=== PATIENT | male | born 1945 | race Caucasian/White ===

== ENCOUNTER 2019-10-12 11:46 | Outpatient (CLI) | payer BC, SELFPAY ==
--- NOTE | ~2019-10-12 | XR_ITS ---
EXAMINATION: XR lumbar spine 2-3V DATE: 10/12/2019 12:20 INDICATION: Low back pain TECHNIQUE: Anteroposterior and lateral views of the lumbar spine, and cone-down lateral view of the l umbosacral junction were obtained. COMPARISON: None. FINDINGS: There is no fracture, dislocation, or subluxation. The vertebral body heights and alignment are normal. Mild loss of intervertebral disc space height is present at L2-3 and L5-S1. Small degene rative osteophytes project from the anterior endplates of multiple vertebral bodies. There is severe facet osteoarthritis of the lower lumbar spine. The bowel gas pattern is normal. IMPRESSION: 1. Moderate lumbar spondylosis without acute findings. Reviewed, dictated and finalized at location A.
== END 2019-10-12 11:47 | disposition home or self-care (01) ==
PROVIDERS: PCP Family Medicine; Visit Provider Family Medicine
DX: M47.896 Other spondylosis, lumbar region (principal)
CPT/HCPCS: 72100

== ENCOUNTER → 2019-11-26 07:22 | Outpatient (CLI) | payer BC, SELFPAY ==
--- NOTE | ~2019-11-26 | MR_ITS ---
EXAMINATION: MR lumbar spine wo con DATE: 11/26/2019 08:26 INDICATION: Acute bilateral low back pain. TECHNIQUE: Magnetic resonance imaging (MRI) of the lumbar spine was performed without intravenous con trast. Sequences included sagittal T2-weighted FSE, sagittal T2-weighted FS FSE, sagittal T1-weighted FSE, and axial T2-weighted FSE. COMPARISON: Lumbar spine radiographs 10/12/2019 FINDINGS: There is 2 mm retrolisthesis of L2 on L3 and 2 mm anterolisthesis of L4 on L5. Vertebral sumi dy heights are normal. There is a hemangioma in T12 vertebral body. There is mildly decreased disc he ight at L2-L3. The distal spinal cord signal intensity is normal. The conus medullaris is at T12-L1. Partially visualized is a 6.4 cm cyst in left kidney. The following disc levels are specifically disc ussed: L1-L2: The disc does not extend beyond the endplate margin. There is mild bilateral facet joint osteo arthritis. There is no neural foraminal stenosis. There is no central canal stenosis. L2-L3: The disc is bulging. There is severe right and mild left facet joint osteoarthritis. There is moderate right and mild left neural foraminal stenosis. There is mild central canal stenosis. L3-L4: The disc is mildly bulging. There is severe bilateral facet joint osteoarthritis. There is mil d bilateral neural foraminal stenosis. There is mild central canal stenosis. L4-L5: The disc is bulging. There is severe bilateral facet joint osteoarthritis. There is mild bilat eral neural foraminal stenosis. There is mild central canal stenosis. L5-S1: The disc is bulging and has an annular fissure. There is mild right and severe left facet join t osteoarthritis. There is mild bilateral neural foraminal stenosis. There is mild central canal sten osis. IMPRESSION: 1. Moderate lumbar spondylosis. Reviewed, dictated and finalized at location A.
== END ==
PROVIDERS: PCP Family Medicine; Visit Provider Family Medicine
DX: M47.896 Other spondylosis, lumbar region (principal)
CPT/HCPCS: 72148

== ENCOUNTER 2020-07-26 14:30 | Outpatient (CLI) | payer BC, SELFPAY ==
[2020-07-26 14:59] LABS: Hematocrit 40.2 % (42.0-52.0); Hemoglobin 12.3 g/dL (14.0-18.0); Mean Corpuscular HGB Conc 30.6 g/dl (32-36); Mean Corpuscular Hemoglobin 27.3 pg (26-34); Mean Corpuscular Volume 89.3 fl (80-100); Mean Platelet Volume 11.7 fl (7.4-10.4); Platelet Count Result 246 k/mm3 (150-375); Red Cell Distribution Width 15.2 % (11.5-14.5); White Blood Count 6.6 K/mm3 (4.5-10.0)
[2020-07-26 15:00] LABS: Anion Gap 5 mmol/L (8-16); Blood Urea Nitrogen 23 mg/dL (9-20); Calcium 8.9 mg/dL (8.4-10.2); Carbon Dioxide 33 mmol/L (22-30); Chloride 101 mmol/L (98-107); Estimated Glomerular Filt Rate 54; Glucose 119 mg/dL (75-110); Potassium 3.7 mmol/L (3.4-5.0); Sodium 139 mmol/L (137-145)
== END 2020-07-26 14:31 | disposition home or self-care (01) ==
PROVIDERS: PCP Family Medicine; Visit Provider Family Medicine
DX: D64.9 Anemia, unspecified (principal); I10 Essential (primary) hypertension
CPT/HCPCS: 36415; 80048; 85027

== ENCOUNTER → 2021-06-21 14:57 | Outpatient (CLI) | payer BC, SELFPAY ==
--- NOTE | ~2021-06-21 | XR_ITS ---
XR knee RT 2V 06/21/2021 15:23 Indication: Left hip pain Procedure: 2 views left hip Comparison: No prior studies for comparison. Findings: There is mild-moderate osteoarthritis of the right knee. No fracture, subluxation or disloc ation. No significant joint effusion. Surgical clips are present in the popliteal space. There are va scular calcifications. Impression: 1: Mild-moderate osteoarthritis of the right knee. Reviewed, dictated and finalized at location B. OOR ILLUMINATING ENGINEER Impression: 1: Mild-moderate osteoarthritis of the right knee.
--- NOTE | ~2021-06-21 | XR_ITS ---
XR knee LT 2V 06/21/2021 15:23 Indication: Left knee pain Procedure: 2 views left knee Comparison: No prior studies for comparison. Findings: There is mild-moderate tricompartment osteoarthritis of the left knee. No fracture, subluxa tion or dislocation. No significant joint effusion. No foreign bodies. Impression: 1: Mild-moderate osteoarthritis of the left knee. Reviewed, dictated and finalized at location B. IFICATIONS WRITER Impression: 1: Mild-moderate osteoarthritis of the left knee.
--- NOTE | ~2021-06-21 | XR_ITS ---
XR hip LT min 2V 06/21/2021 15:23 Indication: Left hip pain Procedure: 2 views left hip Comparison: No prior studies for comparison. Findings: There is mild-moderate osteoarthritis of the left hip. No acute fracture or traumatic malal ignment. No significant soft tissue abnormality. No foreign bodies. Impression: 1: Mild-moderate osteoarthritis of the left hip. Reviewed, dictated and finalized at location B. N ENERGY POLICY ANALYST Impression: 1: Mild-moderate osteoarthritis of the left hip.
== END ==
PROVIDERS: PCP Family Medicine; Visit Provider Family Medicine
DX: M25.552 Pain in left hip (principal); M25.561 Pain in right knee; M25.562 Pain in left knee; M16.12 Unilateral primary osteoarthritis, left hip; M17.0 Bilateral primary osteoarthritis of knee
CPT/HCPCS: 73502; 73560

== ENCOUNTER 2022-02-12 10:05 | Outpatient (CLI) | payer BC, SELFPAY ==
[2022-02-12 10:34] LABS: Uric Acid 6.4 mg/dL (3.5-8.5)
== END 2022-02-12 10:06 | disposition home or self-care (01) ==
PROVIDERS: PCP Family Medicine; Visit Provider Family Medicine
DX: M79.671 Pain in right foot (principal); M79.672 Pain in left foot
CPT/HCPCS: 36415; 84550

== ENCOUNTER 2024-04-13 09:04 | Outpatient (CLI) | payer BC, SELFPAY ==
--- OUTSIDE RECORDS SUMMARY | 2024-04-20 00:11 | XMS_ITS | Encounter Summary ---
Author Organization [facility] Address [address] [place] [address] Care Team Providers Care Clinical Microbiologist Name Role Phone Martin López MD Primary Care Provider Encounter Details Date Type Department Care Team (Late st Contact Info) Description 08/01/2021 Lab Requisition [facility] [address] [place] [address] Artie Miller MD [address] [address] Social History Tobacco Use Types Packs/Day Years Used Date Smoking Tobacco: Never Assessed Sex and Gender Information Value Date Recorded Sex Assigned at Not on file Gender Identity Not on file Sexual Orientation Not on file documented as of this encounter Plan of Treatment Not on file documented as of this encounter Procedures Procedure Name Priority Date/Time Associated Diagnosis Comments DERMATOPATHOLOGY Routine 07/31/2021 12:0 0 AM CDT documented in this encounter Results * DERMATOPATHOLOGY (07/31/2021 12:00 AM CDT) Case Report Dermatopathology Report ? Case: [id number] ? Authorizing Provider: ??Artie Miller MD ?Collected: ? 07/31/2021 12:00 AM ? Ordering Location: ? [facility] ?Received: ?08/01/2021 04:01 PM ? Pathologist: ? Prabha Toney MD ? Specimen: ?Skin, left shoulder ? 2 1:12 PM CDT DERMATOPATHOLOGY LABORATORY Final Diagnosis Specimen A. SKIN, left shoulder: SEBORRHEIC KERATOSIS, IRRITATED AND INFLAMED (L82.0) 2 1:12 PM T DERMATOPATHOLOGY LABORATORY Clinical History [facility]. Path # [id number]. 1:12 PM CDT DERMATOPATHOLOGY LABORATORY Gross Description Specimen A: Received is one formalin filled container labeled with the patient's name and designated left shoulder. The specimen consists of a shave biopsy measuring [id number]. Jar 0. 1:12 PM T DERMATOPATHOLOGY LABORATORY Microscopic Description Specimen A. SKIN, left shoulder: Sections show acanthosis, papillomatosis, hyperkeratosis, and squamous eddies. There is a lymphohistiocytic infiltrate within the papillary dermis. 2 1:12 PM T DERMATOPATHOLOGY LABORATORY Disclaimer An external and internal positive and negative controls are appropriate for the histochemical, immunohistochemical and immunofluorescence stain(s) in this case (if any), except where stated explicitly. The performance characteristics of the stain(s) cited in this report were developed and its performance characteristic determined by the Dermatopathology Laboratory at [facility], directed by Dr. Liana Hopson. These tests need not be, and therefore are not, approved by the [place] Food and Drug Administration. The tests are used for clinical purposes. Billing Codes Specimen Charges Stain Charges 50544 1 2 1:12 PM CDT DERMATOPATHOLOGY LABORATORY Embedded Images 2 1:12 PM CDT DERMATOPATHOLOGY LABORATORY Pathology/Cytolog y TISSUE SPECIMEN FROM SKIN / Unknown 07/31/2021 08/01/2021 4:01 PM CDT Artie Miller MD LAB - PATHOLOGY/CYTO LOGY ORDERABLES DERMATOPATHOLOGY LABORATORY [facility] - Department of Dermatology [facility] [address] [place] [address], [address] [phone] documented in this encounter Visit Diagnoses Not on filedocumented in this encounter Care Teams Clinical Microbiologist Relationship Specialty Start Date End Date Martin López MD [address] [place] [address] PCP - General 12/07/20 documented as of this encounter
--- OUTSIDE RECORDS SUMMARY | 2024-04-20 00:11 | XMS_ITS ---
Author Organization [facility] Address [address] [address] Care Team Providers Care Buckle Sorter Name Role Phone Dr Martin López Primary Care Provider Unavaila brianna Cardenas Jr, MD, Inderjit Unavailable Encounters Encounter Location Date Provider Diagnosis [facility] [address] [address] 03/24/2024 Inderjit Cardenas Jr, MD PLAN OF TREATMENT No Information
--- OUTSIDE RECORDS SUMMARY | 2024-04-20 00:11 | XMS_ITS | Patient Health Record ---
Author Organization [facility] Address [address] [address] Care Team Providers Care Window Shade Estimator Name Role Phone Dr Martin López Primary Care Provider Unavaila brianna Cardenas Jr, MD, Inderjit Unavailable [phone] Antonieta ALCARAZ, Urbano Unavailable [phone] ALLERGIES No Known Allergies REASON FOR REFERRAL Reason Initial visit - eval and treat Diagnosis 1 Back pain (M54.9) Referral Organization [facility] Referring Provider First Name Inderjit Referring Provider Last Name Ronald Alexander MD Referring Provider Speciality Orthopedic Surgery Referral Priority Routine MEDICATIONS Medication SIG (Take, Route, Fr equency, Duration) Notes Start Date End Date Status Hyalgan 20 MG/2ML 2 mL Intra-articular for 30 day(s) 04/09/2022 Active Metoprolol Active Benazepril HCl Unkno wn amLODIPine Besylate Unknown Lisinopril Active Montelukast Sodium A ctive Atorvastatin Calcium Active Singulair Unknown Azelastine HCl Unkno wn Aspir-81 Active Travatan Z Active IMMUNIZATIONS Vaccine Route Administration Date Status Comme nts Influenza Unknown 11/16/2021 Administered Influenza Unknown 06/27/2017 Refused pneumoccocal Unknown 06/27/2017 Refused pneumoccocal Unknown 11/16/2021 Refused SOCIAL HISTORY Tobacco Use: Social History Observation Description Date Details (start date - stop date) Never Smoker NA - NA Sex Assigned At : Social History Observation Description Sex Assigned At Unknown Tobacco Use: Question Answer Notes Patient is a: nonsmoker Alcohol screening: Question Answer Notes Did you have a drink contain ing alcohol in the past year? Yes How often did you have a dri nk containing alcohol in the past year? Monthly or less (1 point) How many drinks did you have on a typical day when you were drinking in the past year? 1 or 2 (0 points) How often did you have six o r more drinks on one occasion in the past year? Less than monthly (1 point) Points 2 Interpretation Negative PROBLEMS Problem Type ICD Code Onset Dates Problem Status W/U Status Risk SNOMED Code Notes Problem Bilateral primary osteoarthritis of knee (M17.0) 04/12/20 16 Active confirmed Osteoarthritis o f knee (867477086) Problem Pain in left hip (M25.552) 12/24/19 24 Active confirmed [id number] Problem Other specified enthesopathies of left lower limb, excluding foot (M76.892) Active confirmed 120406764 Problem Strain of muscle, fascia and tendon of left hip, initial encounter (S76.012A) 11/06/19 24 Active confirmed 009313651 Problem Knee pain, right (M25.561) Active confirmed Problem Trochanteric bursitis of left hip (M70.62) 11/17/19 22 Active confirmed [id number] VITAL SIGNS Heart Rate 75 /min 12/24/2023 Blood pressure diastolic 85 mm Hg 12/24/2023 Height 69.5 in 12/24/2023 Blood pressure systolic 145 mm Hg 12/24/2023 Weight 180 lbs 12/24/2023 BMI 26.2 kg/m2 12/24/2023 Encounters Encounter Location Date Provider Diagnosis [facility] [address] [address] 03/24/2024 Inderjit Cardenas Jr, MD [facility] [address] [facility] [place] [address] 05/14/2023 Inderjit Cardenas Jr, MD Bilateral primary osteoarthritis of knee M17.0 [facility] [address] [facility] [place] [address] 09/03/2023 Inderjit Cardenas Jr, MD Bilateral primary osteoarthritis of knee M17.0 [facility] [address] [address] [place] [address] 11/13/2023 Urbano Fung MD Strain of muscle, fascia and tendon of left hip, initial encounter S76.012A [facility] [address] [place] [address] 12/24/2023 Inderjit Cardenas Jr, MD Bilateral primary osteoarthritis of knee M17.0 ; Pain in left hip M25.552 [address] Lum[address] pain M54.50 [facility] [address] [place] [address] 04/16/2024 Inderjit Cardenas Jr, MD Bilateral primary osteoarthritis of knee M17.0 [facility] [address] [place] [address] 12/24/2023 Inderjit Cardenas Jr, MD [facility] [address] [place] [address] 12/31/2023 Inderjit Cardenas Jr, MD [facility] [address] [place] [address] 12/03/2023 Inderjit Cardenas Jr, MD [facility] [address] [place] [address] 01/14/2024 Inderjit Cardenas Jr, MD [facility] [address] [place] [address] 04/17/2024 Inderjit Cardenas Jr, MD ASSESSMENTS Encounter Date Diagnosis Assessment Notes Treatment Notes Treatment Clinical Notes 05/14/2023 Bilateral primary osteoarthritis of knee (ICD-10 - M17.0) 09/03/2023 Bilateral primary osteoarthritis of knee (ICD-10 - M17.0) 11/13/2023 Strain of muscle, fascia and tendon of left hip, initial encounter (ICD-10 - S76.012A) 12/24/2023 Bilateral primary osteoarthritis of knee (ICD-10 - M17.0) 04/16/2024 Bilateral primary osteoarthritis of knee (ICD-10 - M17.0) 12/24/2023 Pain in left hip (ICD-10 - M25.552) 12/24/2023 Lumbar pain (ICD-10 - M54.50) PLAN OF TREATMENT Pending Test Test Name Order Date MRI : Hip, left 12/24/2023 MRI : Lumbar without contrast 12/24/2023 Insurance Providers Payer Name Payer Address Payer Phone Subscriber Number Group Number Insured Name Patient Relationship to Insured Coverage Start Date Coverage End Date [employer] 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
--- OUTSIDE RECORDS SUMMARY | 2024-04-20 00:11 | XMS_ITS | Referral Summary ---
Author Organization [facility] Address [address] [place] [address] Care Team Providers Care Director Of Staff Development Name Role Phone Martin López MD Primary Care Provider [phone] Source Comments [facility],non-owned Affiliates and Associated Physician Practices is amultiple site organization consisting of ambulatory clinics and hospital sitesin [place], [place], [place] and [place]. This disclosure is being madepursuant to the Care Everywhere program and may not contain all information available regarding this patient. Last updated 18.[facility] [employer] Social History Tobacco Use Types Packs/Day Years Used Date Smoking Tobacco: Never Assessed Sex and Gender Information Value Date Recorded Sex Assigned at Not on file Gender Identity Not on file Sexual Orientation Not on file Plan of Treatment Not on file Care Teams Director Of Staff Development Relationship Specialty Start Date End Date Martin López MD [address] [place] [address] PCP - General 12/07/20
--- OUTSIDE RECORDS SUMMARY | 2024-04-20 00:11 | XMS_ITS | Patient Health Summary ---
Author Organization [facility] Address [address] [place] [address] Care Team Providers Care Supervisor Wood Room Name Role Phone Martin López MD Primary Care Provider [phone] Note from [facility],non-owned Affiliates and Associated Physician Practices is amultiple site organization consisting of ambulatory clinics and hospital sitesin [place], [place], [place] and [place]. This disclosure is being madepursuant to the Care Everywhere program and may not contain all information available regarding this patient. Last updated 18.[facility] Social History Tobacco Use Types Packs/Day Years Used Date Smoking Tobacco: Never Assessed Sex and Gender Information Value Date Recorded Sex Assigned at Not on file Gender Identity Not on file Sexual Orientation Not on file Procedures * DERMATOPATHOLOGY(Performed 07/31/2021) * DERMATOPATHOLOGY(Performed 12/06/2020) Results * DERMATOPATHOLOGY (07/31/2021 12:00 AM CDT) Only the most recent of2 resultswithin the time period is included. Case Report Dermatopathology Report ? Case: [id number] ? Authorizing Provider: ??Artie Miller MD ?Collected: ? 07/31/2021 12:00 AM ? Ordering Location: ? [facility] ?Received: ?08/01/2021 04:01 PM ? Pathologist: ? Prabha Toney MD ? Specimen: ?Skin, left shoulder ? 1:12 PM CDT DERMATOPATHOLOGY LABORATORY Final Diagnosis Specimen A. SKIN, left shoulder: SEBORRHEIC KERATOSIS, IRRITATED AND INFLAMED (L82.0) 1:12 PM T DERMATOPATHOLOGY LABORATORY Clinical History [facility]. Path # [id number]. 1:12 PM CDT DERMATOPATHOLOGY LABORATORY Gross Description Specimen A: Received is one formalin filled container labeled with the patient's name and designated left shoulder. The specimen consists of a shave biopsy measuring [id number]. Jar 0. 1:12 PM CDT DERMATOPATHOLOGY LABORATORY Microscopic Description Specimen A. SKIN, left shoulder: Sections show acanthosis, papillomatosis, hyperkeratosis, and squamous eddies. There is a lymphohistiocytic infiltrate within the papillary dermis. 1:12 PM CDT DERMATOPATHOLOGY LABORATORY Disclaimer An external and internal positive and negative controls are appropriate for the histochemical, immunohistochemical and immunofluorescence stain(s) in this case (if any), except where stated explicitly. The performance characteristics of the stain(s) cited in this report were developed and its performance characteristic determined by the Dermatopathology Laboratory at [facility], directed by Dr. Liana Hopson. These tests need not be, and therefore are not, approved by the [place] Food and Drug Administration. The tests are used for clinical purposes. Billing Codes Specimen Charges Stain Charges 94268 1 2 1:12 PM CDT DERMATOPATHOLOGY LABORATORY Embedded Images 04/07/202 2 1:12 PM CDT DERMATOPATHOLOGY LABORATORY Pathology/Cytolog y TISSUE SPECIMEN FROM SKIN / Unknown 07/31/2021 08/01/2021 4:01 PM CDT Artie Miller MD LAB - PATHOLOGY/CYTO LOGY ORDERABLES DERMATOPATHOLOGY LABORATORY [facility] - Department of Dermatology [facility] Specialized Medicine [address] [place] [address], [address] [phone] Care Teams Supervisor Wood Room Relationship Specialty Start Date End Date Martin López MD [address] [place] [address] PCP - General 12/07/20
--- OUTSIDE RECORDS SUMMARY | 2024-04-20 00:11 | XMS_ITS | Clinical Summary ---
Author Organization [facility] Address [address] [place] [address] Care Team Providers Care Apparel Pattern Maker Name Role Phone Martin López MD Primary Care Provider [phone] Source Comments [facility],non-owned Affiliates and Associated Physician Practices is amultiple site organization consisting of ambulatory clinics and hospital sitesin [place], [place], [place] and [place]. This disclosure is being madepursuant to the Care Everywhere program and may not contain all information available regarding this patient. Last updated 18.[facility] Social History Tobacco Use Types Packs/Day Years Used Date Smoking Tobacco: Never Assessed Sex and Gender Information Value Date Recorded Sex Assigned at Not on file Gender Identity Not on file Sexual Orientation Not on file Plan of Treatment Health Maintenance Due Date Last Done Comments HEPATITIS C SCREENING 12/04/1963 DTAP/TDAP/TD VACCINES (1 - Tdap) 1964 ZOSTER VACCINE (1 of 2) 12/09/1995 PNEUMOCOCCAL VACCINE 65+ (1 of 1 - PCV) 2010 Respiratory Syncytial Virus (RSV) Vaccine Pt: or over 60 yrs (1 - 1-dose 75+ series) 2020 DEPRESSION SCREENING 04/29/2023 COVID-19 VACCINE ( - 2023-2 5 season) 2023 INFLUENZA VACCINE (#1) 2023 HEPATITIS B VACCINE Aged Out No longe r eligible based on patient's age to complete this topic HIB VACCINE Aged Out No longer eligi ble based on patient's age to complete this topic HPV VACCINE Aged Out No longer eligi ble based on patient's age to complete this topic MENINGOCOCCAL VACCINE Aged Out No jasmin yessica eligible based on patient's age to complete this topic Care Teams Apparel Pattern Maker Relationship Specialty Start Date End Date Martin López MD [address] [place], [place] [id number] PCP - General 12/07/20
--- OUTSIDE RECORDS SUMMARY | 2024-04-20 00:11 | XMS_ITS ---
Author Organization [facility] Address [address], [place] [address] Care Team Providers Care Tapper Helper Name Role Phone Dr Martin López Primary Care Provider Unavaila brianna Cardenas Jr, MD, Inderjit Unavailable Encounters Encounter Location Date Provider Diagnosis [facility] [address], [place] [address] 12/31/2023 Inderjit Cardenas Jr, MD PLAN OF TREATMENT No Information
--- OUTSIDE RECORDS SUMMARY | 2024-04-20 00:11 | XMS_ITS ---
Author Organization [facility] Address [address] [place] [address] Care Team Providers Care Strap Maker Name Role Phone Dr Martin López Primary Care Provider Unavaila brianna Cardenas Jr, MD, Inderjit Unavailable REASON FOR VISIT MRI Encounters Encounter Location Date Provider Diagnosis [facility] [address] [place] [address] 01/14/2024 Inderjit Cardenas Jr, MD PLAN OF TREATMENT No Information
--- OUTSIDE RECORDS SUMMARY | 2024-04-20 00:11 | XMS_ITS | Encounter Summary ---
Author Organization [facility] Address [address] [place] [address] Care Team Providers Care Studio Technician Name Role Phone Martin López MD Primary Care Provider [phone] Encounter Details Date Type Department Care Team (Late st Contact Info) Description 2020 Lab Requisition [facility] [address] [place] [address] Artie Miller MD [address] [place] [address] Social History [...] Priority Date/Time Associated Diagnosis Comments DERMATOPATHOLOGY Routine 12/06/2020 3:33 AM CDT documented in this encounter Results * DERMATOPATHOLOGY (12/06/2020 3:33 AM CDT) Case Report Dermatopathology Report ? Case: [id number] ? Authorizing Provider: ??Artie Miller MD ?Collected: ? 12/06/2020 03:33 AM ? Ordering Location: ? [facility] ?Received: ?2020 06:36 AM ? Pathologist: ? Prabha Toney MD ? Specimen: ?Skin, left neck ? 1 1:14 PM CDT DERMATOPATHOLOGY LABORATORY Final Diagnosis Specimen A. SKIN, left neck: BASAL CELL CARCINOMA, NODULAR TYPE (C44.41) 1:14 PM T DERMATOPATHOLOGY LABORATORY Clinical History [facility]. Path#[id number] 1:14 PM CDT DERMATOPATHOLOGY LABORATORY Gross Description Specimen A: Received is one formalin filled container labeled with the patient's name and designated left neck. The specimen consists of a shave biopsy measuring 6x4x1 mm. Jar 0. 1:14 PM T DERMATOPATHOLOGY LABORATORY Microscopic Description Specimen A. SKIN, left neck: Within the dermis there are aggregates of basaloid cells with a high nuclear to cytoplasmic ratio and peripheral palisading. 1:14 PM T DERMATOPATHOLOGY LABORATORY Disclaimer An external and internal positive and negative controls are appropriate for the histochemical, immunohistochemical and immunofluorescence stain(s) in this case (if any), except where stated explicitly. The performance characteristics of the stain(s) cited in this report were developed and its performance characteristic determined by the Dermatopathology Laboratory at [facility], directed by Dr. Liana Hopson. These tests need not be, and therefore are not, approved by the [place] Food and Drug Administration. The tests are used for clinical purposes. Billing Codes Specimen Charges Stain Charges 98320 1 1 1:14 PM CDT DERMATOPATHOLOGY LABORATORY Embedded Images 1:14 PM CDT DERMATOPATHOLOGY LABORATORY Pathology/Cytolo gy TISSUE SPECIMEN FROM SKIN / Unknown 12/06/2020 3:33 AM CDT 2020 6:36 AM CDT Artie Miller MD LAB - PATHOLOGY/CYTO LOGY ORDERABLES DERMATOPATHOLOGY LABORATORY [facility] - Department of Dermatology [facility] Medicine [address] [place] [address], [address] [phone] documented in this encounter Visit Diagnoses Not on filedocumented in this encounter Care Teams Studio Technician Relationship Specialty Start Date End Date Martin López MD [address] [place] [address] PCP - General 12/07/20 documented as of this encounter
--- OUTSIDE RECORDS SUMMARY | 2024-04-20 00:12 | XMS_ITS | Encounter Summary ---
Author Organization [facility] Address [address] [place] [address] Phone Care Team Providers Care Co[employer]dam Construction Supervisor Name Role Phone Martin López MD Primary Care Provider Khalif Ca MD Unavailable Francia Worley MD Unavailable Tera Torre MD Unavailable [phone] Reason for Referral * Cardiology (Routine) - Closed Specialty Diagnoses / Procedures Referred By Contac t Referred To Contact Diagnoses Paroxysmal atrial fibrillation (CMS/HCC) (HCC) Procedures ECG 12 lead Jarett Toney MD PhD Phone: tel: fax: [facility] (All Locations) Referral ID Status Reason Start Date Expiration Date Visits Re quested Visits Authorized [id number] Closed 02/15/2023 03/16/2024 1 1 Reason for Visit * Consultation (Routine) - Closed Specialty Diagnoses / Procedures Referred By Contac t Referred To Contact Cardiology Diagnoses Paroxysmal atrial fibrillation (CMS/HCC) (HCC) Tera Torre MD [address] [place] [address] Phone: tel: fax: [facility] (All Locations) Referral ID Status Reason Start Date Expiration Date V isits Requested Visits Authorized [id number] Closed Specialty Services Required 01/07/2023 02/06/2024 1 1 Encounter Details Date Type Department Care Team (Late st Contact Info) Description 02/15/2023 2:30 PM CDT Office Visit [facility] Cardiology [address] [place] [address] Jarett Toney MD PhD [address] [address] [place] [address] Paroxysmal atrial fibrillation (CMS/HCC) (HCC) Social History Tobacco Use Types Packs/Day Years Used Date Smoking Tobacco: Former Cigarettes Q uit: 1970 Smokeless Tobacco: Never Tobacco Cessation:Counseling Given: Not Answered Alcohol Use Standard Drinks/Week Comments Yes 0 (1 standard drink = 0.6 oz pur e alcohol) rare AUDIT-C Answer Date Recorded Q1: How often do you have a drink containing alc ohol? Never 03/05/2022 Q2: How many drinks containi ng alcohol do you have on a typical day when you are drinking? 1 or 2 03/05/2022 Q3: How often do you have six or more drinks on one occasion? Never 03/05/2022 Personal Safety Answer Date Recorded Have you ever been in or are you currently in a harmful physical or emotional relationship or is someone making you feel afraid or unsafe? 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 Gender Identity Male 07/25/2023 3:40 PM CDT Sexual Orientation Straight 10/28/2019 9: 50 AM CDT documented as of this encounter Last Filed Vital Signs Vital Sign Reading Time Taken Comments Blood Pressure 181/97 02/15/2023 2:13 PM CDT Pulse 59 02/15/2023 2:13 PM CDT Temperature - - Respiratory Rate - - Oxygen Saturation 97% 02/15/2023 2:13 PM CDT Inhaled Oxygen Concentration - - Weight 83.9 kg (185 lb) 02/15/2023 2:13 PM CDT Height 175.3 cm (5' 9 ) 02/15/2023 2:13 PM CDT Body Mass Index 27.32 02/15/2023 2:13 PM CDT documented in this encounter Patient Instructions * Patient Instructions* Jarett Toney MD PhD - 02/15/2023 2:30 PM CDT In documented in this encounter Progress Notes * Jarett Toney MD PhD - 02/15/2023 2:30 PM CDT Cardiac Electrophysiology Initial Consultation At the kind request of Tera Torre MD I had the pleasure of seeing Nathan Wagner (1945) at the [facility] Cardiac Electrophysiology Service today, 02/15/2023, in consultation for atrial fibrillation. My review of external records indicates that Mr. Wagner is a 77 y.o. man with a history of hypertension, coronary disease and coronary bypass surgery, severe and bioAVR, and atrial fibrillation. He was admitted in October of 2022, after feeling unwell at a constitution party. Holter monitor revealed paroxysmal atrial fibrillation and he underwent sotalol loading. His GZH9FR4-BxZE score is 4. He is on apixaban. Echo on 22 November 2022 revealed an LV ejection fraction of 0.60., normal function of the bioAVR, normal left atrium (LA volume index, 34.9; normal 16-34). The patient tells me that he underwent CABG/bioAVR by Dr. Worley in May 2020. There was some postoperative AF, but it resolved. He reports some slow heart rates in March of 2022. On 20 Sep 2022he fetl rapid heart rates, prompting him to go the ER. He was treated with metoprolol. Some recurrences led to amdission for sotalol. He has had infrequent episodes since then, with 3 in January. The longest episode has been 1 hour. Past Medical History He has a past medical history of Basal cell carcinoma, Cancer (CMS/HCC) ([facility]), Coronary artery disease, Diverticulosis, GERD (gastroesophageal reflux disease), GI bleed (2014), Glaucoma, H pylori ulcer, Heart murmur, Hemorrhoid, History of blood transfusion (2014), HTN (hypertension), Hyperlipidemia, Severe aortic stenosis, and Sinus disease. He has no past medical history of Acute respiratory failure requiring reintubation (CMS/HCC) (HCC),Arthritis, Asthma, Awareness under anesthesia, CHF (congestive heart failure) ([facility]/HCC) ([facility]), COPD(chronic obstructive pulmonary disease) ([facility]), Delayed emergence from general anesthesia, Diabetes mellitus ([facility]), Hard to intubate, Hematoma, Malignant hyperthermia, Motion sickness, Pneumothorax, PONV (postoperative nausea and vomiting), Postoperative delirium, Pseudocholinesterase deficiency, Sleep apnea, Spinal headache, Stroke ([facility]), or Thyroid disease. He has a past surgical history that includes Cardiac catheterization (2019); Colonoscopy (2019); Upper gastrointestinal endoscopy (2019); Mohs Surgery (2001); Heart Surgery (2019); Abdominal surgery;Cardiac surgery; Mitral valve replacement; and Vascular surgery. Medications Outpatient Medications Prior to Visit Medication Sig Dispense Refill acetaminophen (TYLENOL) 325 mg tablet Take 2 tablets (650 mg total) by mouth every 4 (four) hours as needed for pain 30 tablet amLODIPine (NORVASC) 5 mg tablet Take 1 tablet (5 mg total) by mouth daily 30 tablet 0 apixaban (Eliquis) 5 mg tablet Take 1 tablet (5 mg total) by mouth 2 (two) times a day 180 tablet 3 atorvastatin (LIPITOR) 80 mg tablet Take 1 tablet (80 mg total) by mouth daily (Patient taking differently: Take 1 tablet (80 mg total) by mouth every morning) 30 tablet 1 lisinopriL (PRINIVIL,ZESTRIL) 40 mg tablet Take 1 tablet (40 mg total) by mouth daily 90 tablet 3 montelukast (SINGULAIR) 10 mg tablet Take 1 tablet (10 mg total) by mouth nightly sotaloL (BETAPACE) 80 mg tablet Take 1 tablet (80 mg total) by mouth 2 (two) times a day 60 tablet 11 travoprost (TRAVATAN Z) 0.004 % drops Administer 1 drop into both eyes nightly aspirin 81 mg enteric coated tablet Take 1 tablet (81 mg total) by mouth every morning (Patient nottaking: Reported on 02/15/2023) No facility-administered medications prior to visit. Allergies No Known Allergies Social History He reports that he quit smoking about 53 years ago. His smoking use included cigarettes. He has never used smokeless tobacco. He reports that he does not currently use drugs. Patient denies consumingalcoholic drinks. Family History Mr. Wagner's family history includes Arrhythmia in his brother; Cancer in his mother; Heart attack in his maternal grandfather; Heart disease in his mother; Hypertension in his brother and mother. Review of Systems A full 10-point review of systems was negative except for as above. Physical Examination On physical examination, he is in no acute distress. BP (!) 181/97 (BP Location: Right arm, Patient Position: Sitting) Pulse 59 Ht 175.3 cm (5' 9 ) Wt 83.9 kg (185 lb) SpO2 97% BMI 27.32 kg/m?? Head and neck were within normal limits. There was no scleral icterus. Extraocular movements were intact. The oral mucosa was moist. The neck was supple with no thyromegaly or mass. There was no cervical lymphadenopathy. Chest was clear to auscultation bilaterally. On cardiovascular examination, there was no elevation of the the jugular venous pressure appreciated. There was a regular rhythm with no murmur, rub, or gallop. The abdomen was soft, not tender. There was no organomegaly or mass. Bowel sounds were present. The extremities were without clubbing, or cyanosis. The is no edema. The skin was warm and dry without rash. The affect was normal. Diagnostic Data ECG: ECG today revealed: Sinus Bradycardia -Right bundle branch block and right axis -possible right ventricular hypertrophy -consider pulmonary disease. Labs: Chemistry Lab Results Component Value Date SODIUM 140 11/22/2022 POTASSIUM 4.5 11/22/2022 CHLORIDE 104 11/22/2022 CO2 26 11/22/2022 ANIONGAP 10 11/22/2022 BUNSER 31 (H) 11/22/2022 CREATININE 1.25 11/22/2022 GLUCOSE 137 11/22/2022 CALCIUM 8.9 11/22/2022 BILITOT 0.8 11/19/2022 ALBUMIN 4.2 11/19/2022 GFRNAA 60 (L) 11/22/2022 ALKPHOS 68 11/19/2022 AST 25 11/19/2022 ALT 24 11/19/2022 PHOS 2.8 11/21/2022 MAGNESIUM 2.3 11/21/2022 estimated creatinine clearance is 49.5 mL/min (by C-G 65 yr and older- minimum SCr 0.8 based on SCrof 1.25 mg/dL). Lab Results Component Value Date TSH 1.95 11/19/2022 Lab Results Component Value Date WBC 7.4 11/21/2022 HGB 15.0 11/21/2022 HCT 42.2 11/21/2022 MCV 86.1 11/21/2022 LABPLAT 188 11/21/2022 Impression We had an extended discussion concerning the mechanism, implications, and treatment avenues for atrial fibrillation, specifically: anticoagulation, rate control, and rhythm control. We discussed thatanticoagulation is a preventive therapy; rate and rhythm control therapies are driven by symptoms. We discussed the importance of anticoagulation in the setting of his QEN7OZ2- VaSC score, weighed against the bleeding risk associated with anticoagulation. We further discussed that we have no proof that treatments other than anticoagulation reduces the risk of thromboembolism. I've recommended that he continue his current anticoagulation regimen, apixiban. We discussed that with good rate control, many patients can feel normal, or nearly so, even when inatrial fibrillation. We discussed that rate control typically consists of medical therapy to slow the frequency of AV node conduction and control the ventricular rate. In rare cases, the rate concernis bradycardia, and pacemaker must be considered. In cases where rapid ventricular response and symptoms are refractory to medical rate control AV node ablation, which requires pacemaker implantationis a possibility. I've recommended that he continue his current rate control regimen, metoprolol. We discussed his probably bifascicular block and that there is some risk of conduction disease progression and the need for a pacemaker someday. This should inform rate and rhythm control medicine decisions. We discussed that rhythm control, in both the forms of antiarrhythmic agents and ablation therapy, is an imperfect pursuit. None of the several available antiarrhythmic agents eliminates atrial fibrillation, though it may be successfully suppressed. These potent medicines have known side effects and toxicities, including proarrhythmia. Careful monitoring is required. They are frequently initiatedin the hospital, with close monitoring of telemetry and 12- lead ECGs. We also discussed catheter ablation therapy, the cornerstone of which is pulmonary vein isolation, either using cryoenergy or radiofrequency ablation. We discussed a 60-80% success rate and we also discussed the difficulty of defi chika success, since symptoms drive therapy. Many patients experience significant symptoms relief, even if atrial fibrillation is not eliminated. Sometimes ablation therapy combined with an antiarrhythmic drug yields a benefit. We also discussed an approximately 3% risk of major adverse events, including bleeding, thromboembolism, cardiac or vascular perforation, and atrioesophageal fistula. We discussed measures taken to avoid these complications. In Mr. Wagner's case, we will continue to pursue rhythm control and continue sotalol for now. Alternative therapies include dofetilide, particularly if there is further concern for bradycardia, and amiodarone. He is also a candidate for ablation if he symptoms progress. We will plan to follow-up in a few months' time, provided no new concerns arise in the interim. It's a pleasure to see Mr. Wagner. I am grateful for the opportunity to participate in his care. Rico Hood M.D. transportation consultant [facility] in [place] 02/15/2023 documented in this encounter Plan of Treatment Not on file documented as of this encounter Procedures Procedure Name Priority Date/Time Associated Diagnosis Comments ECG 12-LEAD Routine 02/15/2023 Paroxysmal atrial fibrillation (CMS/HCC) (HCC) documented in this encounter Results * ECG 12 lead (02/15/2023) us Jarett Toney MD PhD ECG ORDERABLES Quentin timoteo Result - Final documented in this encounter Visit Diagnoses Diagnosis Paroxysmal atrial fibrillation (CMS/HCC) (HCC) Atrial fibrillation documented in this encounter Orders Outpatient Referral Count Last Ordered Date Fir st Ordered Date AMB REFERRAL TO CARDIAC ELECTROPHYSIOLOGY 1 02/15/2023 documented in this encounter Care Teams [employer] Supervisor Relationship Specialty Start Date End Date aMrtin López MD [address] [place] [address] PCP - General 06/27/12 Khalif Ca MD [address] [place] [address] Referring Physician Cardiology 04/08/19 Francia Worley MD [address] [facility] [address] [place] [address] Surgeon Cardiothoracic Surgery 06/28/20 Tera Torre MD [address] [facility] [address] [place] [address] Consulting Physician Cardiology 06/28/20 documented as of this encounter
--- OUTSIDE RECORDS SUMMARY | 2024-04-20 00:12 | XMS_ITS | Encounter Summary ---
Author Organization [facility] Address [address] [place] [address] Phone Care Team Providers Care Plant Scientist Name Role Phone Martin López MD Primary Care Provider Khalif Ca MD Unavailable [phone] Francia Worley MD Unavailable Tera Torre MD Unavailable [phone] Reason for Referral * Consultation (Routine) - Closed Specialty Diagnoses / Procedures Referred By Contac t Referred To Contact Cardiology Diagnoses Paroxysmal atrial fibrillation (CMS/HCC) (HCC) Tera Torre MD [address] [place] [address] Phone: tel: fax: [facility] (All Locations) Referral ID Status Reason Start Date Expiration Date V isits Requested Visits Authorized [id number] Closed Specialty Services Required 01/07/2023 02/06/2024 1 1 Question Answer Please select the performing region: [facility] (All Locations) [[id number]] # of visits: 1 Comments For afib Encounter Details Date Type Department Care Team (Late st Contact Info) Description 01/07/2023 Orders Only [facility] Cardiology [facility] [facility] [address] Office [address] [place] [address] Tera Torre MD [address] [place] [address] Paroxysmal atrial fibrillation (CMS/HCC) (HCC) (Primary Dx) Social History Tobacco Use Types Packs/Day Years Used Date Smoking Tobacco: Former Cigarettes Q uit: 1970 Smokeless Tobacco: Never Alcohol Use Standard Drinks/Week Comments Yes 0 [...] on file 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 Gender Identity Male 07/25/2023 3:40 PM CDT Sexual Orientation Straight 10/28/2019 9: 50 AM CDT documented as of this encounter Plan of Treatment Scheduled Referrals Name Type Priority Associated Diagnoses Order Schedule Ambulatory referral to Cardiac Electrophysiology Outpatient Referral Routine Paroxysmal atrial fibrillation (CMS/HCC) (HCC) Expected: 01/21/2023 (Approximate), Expires: 01/08/2024 documented as of this encounter Visit Diagnoses Diagnosis Paroxysmal atrial fibrillation (CMS/HCC) (HCC)- Primary Atrial fibrillation documented in this encounter Care Teams Plant Scientist Relationship Specialty Start Date End Date Martin López MD [address] [address] PCP - General 06/27/12 Khalif Ca MD [address] [address] Referring Physician Cardiology 04/08/19 Francia Worley MD [address] [address] Surgeon Cardiothoracic Surgery 06/28/20 Tera Torre MD [address] [place] [address] Consulting Physician Cardiology 06/28/20 documented as of this encounter
--- OUTSIDE RECORDS SUMMARY | 2024-04-20 00:12 | XMS_ITS | Encounter Summary ---
Author Organization [facility] Address [address] [place] [address] Phone Care Team Providers Care Information Security Associate Name Role Phone Martin López MD Primary Care Provider Khalif Ca MD Unavailable [phone] Francia Worley MD Unavailable Tera Torre MD Unavailable Encounter Details Date Type Department Care Team (Late st Contact Info) Description 10/21/2023 Telephone [facility] Cardiology [address] [facility] Advanced Medicine 8th [place] [address] [place] [address] Jarett Toney MD PhD [address] [place] [address] Social History Tobacco Use Types Packs/Day Years [...] on file 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 Wagner's labs and EKG are acceptable and he should continue his same dose of sotalol. She will let him know. documented in this encounter Plan of Treatment Not on file documented as of this encounter Visit Diagnoses Not on filedocumented in this encounter Care Teams Information Security Associate Relationship Specialty Start Date End Date Martin López MD [facility] [address] [place] [address] PCP - General 06/27/12 Khalif Ca MD [address] [place] [address] Referring Physician Cardiology 04/08/19 Francia Worley MD [address] [place] [address] Surgeon Cardiothoracic Surgery 06/28/20 Tera Torre MD [address] [address] Consulting Physician Cardiology 06/28/20 documented as of this encounter
--- OUTSIDE RECORDS SUMMARY | 2024-04-20 00:12 | XMS_ITS | Encounter Summary ---
Author Organization [facility] Address [address] [place] [address] Phone Care Team Providers Care Director Hydrogen Storage Engineering Name Role Phone Martin López MD Primary Care Provider Khalif Ca MD Unavailable [phone] Francia Worley MD Unavailable Tera Torre MD Unavailable [phone] Encounter Details Date Type Department Care Team (Late st Contact Info) Description 06/27/2023 1:15 PM STORAGE CENTER MANAGER Office Visit [facility] Cardiology [address] [place] [address] Tera Torre MD [facility] [place] [address] Coronary artery disease involving [place] coronary artery of [place] heart without angina pectoris (Primary Dx); Paroxysmal atrial fibrillation (CMS/HCC) (HCC) Social History [...] on file Legal Sex Male 9:13 PM STORAGE CENTER MANAGER Gender Identity Male 07/25/2023 3:40 PM CDT Sexual Orientation Straight 10/28/2019 9: 50 AM CDT documented as of this encounter Last Filed Vital Signs Vital Sign Reading Time Taken Comments Blood Pressure 138/87 06/27/2023 12:59 PM STORAGE CENTER MANAGER Pulse 55 06/27/2023 12:59 PM STORAGE CENTER MANAGER Temperature - - Respiratory Rate - - Oxygen Saturation 99% 06/27/2023 12:59 PM STORAGE CENTER MANAGER Inhaled Oxygen Concentration - - Weight 86.2 kg (190 lb) 06/27/2023 12:59 PM STORAGE CENTER MANAGER Height 175.3 cm (5' 9 ) 06/27/2023 12:59 PM STORAGE CENTER MANAGER Body Mass Index 28.06 06/27/2023 12:59 PM STORAGE CENTER MANAGER documented in this encounter Progress Notes * Tera Torre MD - 06/27/2023 1:15 PM CST Images from the original note were not included. [facility] Department of Medicine Cardiovascular Division Tera Torre M.D. [facility], [place] [address], [address] [place] [id number], [email or web address] Date: 06/27/2023 Primary care Physician Martin López MD [address] [place] [address] Patient Name: Nathan Wagner Date of : 1945 PRINCIPAL AND SECONDARY DIAGNOSES: Severe aortic stenosis with a mean gradient 42 mm Hg and EF 55%, now s/p bioprosthetic AVR (25 mm Magna ease) by Dr. Worley on 06/23/20 Coronary artery disease s/p CABG - severe 3 vessel coronary artery disease with marked ischemia by hemodynamic assessment s/p CABG (radial sequenced to left anterior descending coronary artery and circumflex/obtuse marginal branch, saphenous vein graft to the posterior descending coronary artery) by Dr. Worley on 06/23/20 Hypertension Atrial fibrillation (paroxysmal, first noted in 08/2022). Also had postoperative AFib in 2020 after CABG/AVR. Recurrent atrial fibrillation with symptoms and status post sotalol load 11/15/2022. Follows with Bobby Toney in EP H. Pylori gastritis in mid , had upper GI bleed requiring blood transfusions INTERVAL HISTORY: We had the pleasure of seeing Nathan Wagner today [facility] for follow-up of his atrial fibrillation coronary artery disease and aortic valve replacement. As you know, He is a pleasant 77 y.o. male who we last saw about 6 months ago. In the interim he has followed with our EP colleagues who have evaluated him on sotalol and feel that he has had acceptable AFib control. In generalhe is felt pretty well. He denies any chest pain or shortness of breath. He does have some occasional AFib episodes that last for maybe hours at a time maybe once or twice a month. He has had no prolonged episodes. He has been taking his sotalol without difficulty or limitations. He is still activeplaying golf and doing other activities without any difficulties or limitations. He has been tolerating his anticoagulation well without any difficulties. CURRENT MEDICATIONS: Current Outpatient Medications: acetaminophen (TYLENOL) 325 mg tablet amLODIPine (NORVASC) 5 mg tablet apixaban (Eliquis) 5 mg tablet aspirin 81 mg enteric coated tablet atorvastatin (LIPITOR) 80 mg tablet lisinopriL (PRINIVIL,ZESTRIL) 40 mg tablet montelukast (SINGULAIR) 10 mg tablet sotaloL (BETAPACE) 80 mg tablet travoprost (TRAVATAN Z) 0.004 % drops PHYSICAL EXAMINATION: Vitals: 06/27/23 1259 BP: 138/87 BP Location: Right arm Patient Position: Sitting Pulse: 55 SpO2: 99% Weight: 86.2 kg (190 lb) Height: 175.3 cm (5' 9 ) GENERAL: He is alert and oriented, in no acute distress. Speaks in full sentences. HEENT: Extraocular muscles intact. Sclerae white. Mucous membranes are moist. NECK: No thyromegaly. No lymphadenopathy. No JVD. LUNGS: Clear to auscultation bilaterally. HEART: Regular rate and rhythm. No murmurs, gallops or rubs presents ABDOMEN: Non tender, no distended. No hepatosplenomegaly. MUSCULOSKELETAL: He has +5 strength in both upper and lower extremities, bilateral and symmetric. NEUROLOGIC: He is alert and oriented x4. Grossly normal motor and sensation bilaterally and symmetric. VASCULAR: He has +2 radial pulses bilaterally and symmetric. No lower extremity edema. IMPRESSION AND PLAN: Atrial fibrillation. He appears to be tolerating sotalol well. I would continue his current dose without change. I have encouraged him to continue following up with our EP colleagues. If he continuesto have increasing amounts of atrial fibrillation, he is to contact our office for further evaluation and management. He should remain on his anticoagulation without change. Coronary artery disease. He has having no active symptoms of angina. He should continue his currentmedications without change. Aortic stenosis status post replacement. He has no evidence of early valve deterioration. I have encouraged him to continue his current physical activities without change. Thank you for allowing me to participate in the care of this patient. We would be happy to see him back in 6 months time or sooner as needed. Please don't hesitate to reach out with any questions or concerns. Tera Torre M.D. tar heel CC: Martin López MD [address] [address] AGE CENTER MANAGER documented in this encounter Plan of Treatment Not on file documented as of this encounter Visit Diagnoses Diagnosis Coronary artery disease involving [place] coronary artery of [place] heart without angina pectoris- Primary Paroxysmal atrial fibrillation (CMS/HCC) (HCC) Atrial fibrillation documented in this encounter Care Teams Director Hydrogen Storage Engineering Relationship Specialty Start Date End Date Martin López MD [address] [place] [address] [place] [address] PCP - General 06/27/12 Khalif Ca MD [address] [place] [address] [place] [address] Referring Physician Cardiology 04/08/19 Francia Worley MD [address] [place] [address] Surgeon Cardiothoracic Surgery 06/28/20 Tera Torre MD [address] [place] [address] Consulting Physician Cardiology 06/28/20 documented as of this encounter
--- OUTSIDE RECORDS SUMMARY | 2024-04-20 00:12 | XMS_ITS | Encounter Summary ---
Author Organization [facility] Address [address] [place] [address] Phone Care Team Providers Care Certified Fire Investigator Name Role Phone Martin López MD Primary Care Provider Khalif Ca MD Unavailable [phone] Francia Worley MD Unavailable Tera Torre MD Unavailable [phone] Reason for Visit * Reason Onset Date Comments cardiac risk assessment 02/11/2024 Encounter Details Date Type Department Care Team (Late st Contact Info) Description 02/11/2024 Telephone [facility] Cardiology [address] [facility] 8th [place] [address] [place] [address] Tera Torre MD [address] [place] [address] cardiac risk assessment Social History Tobacco Use Types Packs/Day Years [...] on file Legal Sex Male 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 * Telephone Encounter - Tan Galvan - 02/11/2024 11:45 AM CDT cardiac clearance and holding medication CALLER NAME:Leander FACILITY NAME: [facility] PHONE NUMBER: [phone] FAX NUMBER: [phone] TYPE OF SURGERY: tooth extraction NAME OF SURGEON: Dr. Ike Dias SCHEDULED FOR: To be determined MEDICATION TO BE HELD: FOR DAYS COMMENTS: Hold Eliquis Sotalol? documented in this encounter Plan of Treatment Not on file documented as of this encounter Visit Diagnoses Not on filedocumented in this encounter Care Teams Certified Fire Investigator Relationship Specialty Start Date End Date Martin López MD [address] [address] PCP - General 06/27/12 Khalif Ca MD [address] [address] Referring Physician Cardiology 04/08/19 Francia Worley MD [address] [id number] Surgeon Cardiothoracic Surgery 06/28/20 Tera Torre MD [address] [address] Consulting Physician Cardiology 06/28/20 documented as of this encounter
--- OUTSIDE RECORDS SUMMARY | 2024-04-20 00:12 | XMS_ITS | Encounter Summary ---
Author Organization [facility] Address [address] [place] [address] Phone Care Team Providers Care Nutritional Chemist Name Role Phone Martin López MD Primary Care Provider Khalif Ca MD Unavailable [phone] Francia Worley MD Unavailable Tera Torre MD Unavailable [phone] Reason for Visit * Reason Onset Date Comments Scheduling Appointments 01/21/2023 Encounter Details Date Type Department Care Team (Late st Contact Info) Description 01/21/2023 Telephone [facility] Cardiology [address] [facility] 8th [place] [address] [place] [address] Jerald Osborn Scheduling Appointments Social History Tobacco Use Types Packs/Day Years [...] on file Legal Sex Male 9:13 PM 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 * Telephone Encounter - Heide Gonzalez - 01/22/2023 4:24 PM CDT Pt returning call stating no device, please call to schedule IOV at [phone] * Telephone Encounter - Jerald Osborn - 01/21/2023 10:32 AM CDT EP REFERRAL documented in this encounter Plan of Treatment Not on file documented as of this encounter Visit Diagnoses Not on filedocumented in this encounter Care Teams Nutritional Chemist Relationship Specialty Start Date End Date Martin López MD [address] [place] [address] PCP - General 06/27/12 Khalif Ca MD [address] [place] [address] Referring Physician Cardiology 04/08/19 Francia Worley MD [address] [place] [address] Surgeon Cardiothoracic Surgery 06/28/20 Tera Torre MD [address] [place] [address] Consulting Physician Cardiology 06/28/20 documented as of this encounter
--- OUTSIDE RECORDS SUMMARY | 2024-04-20 00:12 | XMS_ITS | Encounter Summary ---
Author Organization [facility] Address [address] [place] [address] Phone Care Team Providers Care Kinesiotherapist Name Role Phone Martin López MD Primary Care Provider Khalif Ca MD Unavailable [phone] Francia Worley MD Unavailable Tera Torre MD Unavailable [phone] Encounter Details Date Type Department Care Team (Late st Contact Info) Description 05/23/[address] 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 Torre to be rescheduled to 06/27/23 same time. Rosi NAUTICS TEACHER documented in this encounter Plan of Treatment Not on file documented as of this encounter Visit Diagnoses Not on filedocumented in this encounter Care Teams Kinesiotherapist Relationship Specialty Start Date End Date Martin López MD [address] [address] PCP - General 06/27/12 Khalif Ca MD [address] [address] Referring Physician Cardiology 04/08/19 Francia Worley MD [address] [address] Surgeon Cardiothoracic Surgery 06/28/20 Tera Torre MD [address] [address] Consulting Physician Cardiology 06/28/20 documented as of this encounter
--- OUTSIDE RECORDS SUMMARY | 2024-04-20 00:12 | XMS_ITS | Clinical Summary ---
Author Organization [facility] Address [address] [place] [address] Care Team Providers Care Musical Performer Name Role Phone Martin López MD Primary Care Provider Khalif Ca MD Unavailable [phone] Francia Worley MD Unavailable Tera Torre MD Unavailable Allergies No known active allergies Medications montelukast (SINGULAIR) 10 mg tablet Take 1 tablet (10 mg total) by mouth nightly 04/02/20 16 Active travoprost (TRAVATAN Z) 0.004 % drops Administer 1 drop into both eyes nightly 03/31/20 15 Active aspirin 81 mg enteric coated tablet Take 1 tablet (81 mg total) by mouth every morning Active acetaminophen (TYLENOL) 325 mg tablet Take 2 tablets (650 mg total) by mouth every 4 (four) hours as needed for pain 30 tablet 06/29/19 21 Active atorvastatin (LIPITOR) 80 mg tablet Take 1 tablet (80 mg total) by mouth daily 30 tablet 1 06/29/19 21 Active amLODIPine (NORVASC) 5 mg tablet Take 1 tablet (5 mg total) by mouth daily 30 tablet 11/23/19 23 Active Eliquis 5 mg tablet TAKE 1 TABLET BY MOUTH TWICE A DAY 180 tablet 3 08/13/19 24 Active sotaloL (BETAPACE) 80 mg tablet TAKE 1 TABLET BY MOUTH 2 TIMES A DAY. 180 tablet 3 08/13/19 24 Active lisinopriL (PRINIVIL,ZEST RIL) 40 mg tablet TAKE 1 TABLET BY MOUTH DAILY (DOSE ADJUSTMENT) 90 tablet 3 04/06/20 24 Active lisinopriL (PRINIVIL,ZEST RIL) 40 mg tablet TAKE 1 TABLET BY MOUTH DAILY (DOSE ADJUSTMENT) 90 tablet 3 04/25/20 23 024 Discontinued Active Problems Problem Noted Date Diagnosed Date High risk medication use 10/18/2023 Atrial fibrillation with RVR (CMS/HCC) 3 Basal cell carcinoma 03/05/2022 Acute postoperative anemia due to expected blood loss 06/25/2020 Assessment & Plan (06/28/2020 9:32 AM MOVING WORKER): Expected finding s/p CABG, AVR Monitor CBC daily Transfused 1 unit PRBCs on 06/25 for H&H 6.09/15 Today 7.6, will follow with daily CBCs Hx of colonic and GI bleeds (H Pylori) Added FeSo4 Guaiac all specimens-continue bid PPI Atrial fibrillation ([facility]) 06/25/2020 Assessment & Plan (06/28/2020 9:35 AM MOVING WORKER): Developed A fib with RVR 06/25 Rx: Amiodarone IV bolus and po load initiated, QTc daily (today 500) Has remained in NSR most of the time with brief break through AF 120s in morning 06/27 and again today. Lasted approx one hour, no symptoms, stable BP Plan to place 30 day event monitor and hold off on coumadin due to high risk for bleed (see above) H/H currently stable Monitor on telemetry until monitor placed Coronary artery disease without angina pectoris 06/09/2020 Overview (06/09/2020): Added automatically from request for surgery [id number] Assessment & Plan (06/27/2020 9:12 AM MOVING WORKER): S/p CABG x 3 as L radial-OM, SVG-PDA also 06/23 Continue ASA, Statin, beta doni. Increase BB as tolerated Left RA hand with improved Mobility today, incision OK. Using ball and ROM exercises Acute GI bleeding 05/11/2020 Assessment & Plan (05/11/2020 9:52 AM MOVING WORKER): History suggests a lower tract source. He had a CT scan performed on 05/03 as part of his pre-operative workup which did show evidence of colonic diverticulosis--this seems a likely source given the sudden, brisk onset of the bleeding and absence of associated symptoms. Admit the patient for GI consult and evaluation. Hg 16.4-->14.8. Still bleeding this morning but otherwise largely asymptomatic. HLD (hyperlipidemia) 05/11/2020 Assessment & Plan (06/25/2020 9:13 AM MOVING WORKER): Continue Atorvastatin Low fat diet Assessment & Plan (05/13/2020 12:06 PM MOVING WORKER): Home regimen: atorvastatin 10 mg daily. Plan: - continue atorvastatin Assessment & Plan (05/11/2020 12:15 AM MOVING WORKER): Continue lipitor Hematochezia 05/11/2020 Assessment & Plan (05/13/2020 12:04 PM MOVING WORKER): 1 day history of hematochezia increasing in volume. Hb 14.8 from 16.4. Has only had some symptoms of crampy abdominal pain but otherwise appears well. Does have evidence of diverticulosis on recent CT scan, so this could be inciting etiology. Also in the setting of severe aortic stenosis, acquired von Willebrand's disease and AVM bleed is also a possibility. Plan: - continue ASA - CBC q12hr - colonoscopy 05/13/20 - f/u GI consult recs - ADAT after colonoscopy Aortic valve stenosis 03/01/2015 Assessment & Plan (06/28/2020 9:29 AM MOVING WORKER): S/p AVR (25 mm Magna ease) 06/23 Routine post op care Ct and lennon out Hep gtt off, holding coumadin due to high risk GI bleed and recent diverticular bleed Wires out Sinus disease Overview (05/11/2020): mild Severe aortic stenosis Overview (05/11/2020): with a mean gradient 42 mm Hg and EF 55% Assessment & Plan (05/13/2020 12:07 PM MOVING WORKER): Was scheduled for outpatient cath with Dr. Torre on 05/11/20. Asymptomatic. IPAP was consulted for his colonoscopy on 05/13/20. Plan: - avoid large volume boluses - continue to monitor Assessment & Plan (05/11/2020 9:50 AM MOVING WORKER): The pt is currently undergoing pre-operative workup for severe aortic stenosis. He is largely asymptomatic, but his condition is causing him quite a lot of stress/anxiety. He is scheduled for a cardiac catheterization today, which will unfortunately have to be rescheduled in light of his GI bleed. Cardiology is aware, they will reschedule when able. H pylori ulcer History of blood transfusion Hypertension, essential Assessment & Plan (06/28/2020 9:30 AM MOVING WORKER): VS q 4 hrs Continue Metoprolol Increased dose to 12.5 BID yesterday Assessment & Plan (05/13/2020 12:05 PM MOVING WORKER): Home regimen: benazepril and amlodipine. Plan: - HOLD anti-hypertensives in setting of GIB Assessment & Plan (05/11/2020 9:51 AM MOVING WORKER): As tolerated given GIB Pleural 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 Encounters Date Type Department Care Team Description 04/10/2024 1:40 PM MOVING WORKER Lab [facility] [address] [place] [address] Paroxysmal atrial fibrillation (CMS/HCC) (HCC); High risk medication use 04/10/2024 1:00 PM MOVING WORKER Office Visit [facility] Cardiology [address] [place] [address] Jarett Toney MD PhD Paroxysmal atrial fibrillation (CMS/HCC) (HCC) (Primary Dx); High risk medication use 02/13/2024 Telephone [facility] Cardiology [facility] [place] [address] [place] [phone] Tera Torre MD cardiac risk assessment 02/11/2024 Telephone [facility] Cardiology [address] [place] [address] [place] [phone] Tera Torre MD cardiac risk assessment from Last 3 Months Immunizations Name Administration Dates Next Due Influenza, Unspecified 01/28/2020 Surgical History Surgery Date Site/Laterality Comments CARDIAC CATHETERIZATION 04/29/2019 - 04/28/2020 COLONOSCOPY 04/29/2019 - 04/28/2020 UPPER GASTROINTESTINAL ENDOSCOPY 04/29/2019 - 04/28/2020 MOHS SURGERY 04/29/2001 - 04/28/2002 BCC behind right ear HEART SURGERY 04/29/2019 - 04/28/2020 ABDOMINAL SURGERY CARDIAC SURGERY MITRAL VALVE REPLACEMENT VASCULAR SURGERY Medical History Medical History Date Comments H pylori ulcer with bleeding in 2014 History of blood transfusion 2014 Severe aortic stenosis with a me an gradient 42 mm Hg and EF 55% HTN (hypertension) Sinus disease mild Hyperlipidemia Hemorrhoid GI bleed 2014 Coronary artery disease Heart murmur GERD (gastroesophageal reflux disease) Glaucoma Cancer (CMS/HCC) (HCC) Basal cell carcinoma remote past 8-15 years ago Diverticulosis Family History Medical History Relation Name Comments Arrhythmia Brother 1 Hypertension Brother 2 Heart attack Maternal Grandfather Cancer Mother Heart disease Mother Hypertension Mother Anesthesia problems Neg Hx Relation Name Status Comments Brother 1 Alive Brother 2 Alive Father Maternal Grandfather Mother Other Social History Tobacco Use Types Packs/Day Years [...] on file Legal Sex Male 9:13 PM MOVING WORKER Gender Identity Male 07/25/2023 3:40 PM CDT Sexual Orientation Straight 10/28/2019 9: 50 AM CDT Obstetrics History Last Filed Vital Signs Vital Sign Reading Time Taken Comments Blood Pressure 165/105 04/10/2024 12:53 PM MOVING WORKER Pulse 58 04/10/2024 12:53 PM MOVING WORKER Temperature 36.3 ??C (97.3 ??F) 11/22/2022 3:40 PM CD T Respiratory Rate 18 11/22/2022 3:40 PM CDT Oxygen Saturation 99% 04/10/2024 12:53 PM MOVING WORKER Inhaled Oxygen Concentration - - Weight 83.9 kg (185 lb) 04/10/2024 12:53 PM MOVING WORKER Height 175.3 cm (5' 9 ) 04/10/2024 12:53 PM MOVING WORKER Body Mass Index 27.32 04/10/2024 12:53 PM MOVING WORKER Plan of Treatment Health Maintenance Due Date Last Done Comments Depression Screening 1945 Hepatitis C Screening 1945 DTaP/Tdap/Td Vaccine (1 - Tdap) 1956 Hepatitis B Screening 12/09/1963 Zoster Vaccine (1 of 2) 12/09/1995 Pneumococcal vaccine 65+ (1 of 1 - PCV) 2010 Well Visit 65+ 2010 Fall Risk Assessment 11/23/2023 11/22/2022 Influenza Vaccine (#1) 2023 01/28/2020, 2019 Colon Cancer Screening-CT Colonography Discontinued Colon Cancer Screening-Colonoscopy Discontinued 2020 Colon Cancer Screening-DNA Stool Discontinued 05/13/19 21 Colon Cancer Screening-FIT Discontinued 05/13/2020 Colon Cancer Screening-FOBT Discontinued 05/13/2020 Colon Cancer Screening-Sigmoidoscopy Discontinued 04/29 Colorectal Cancer Screening Discontinued Medical Devices Implanted Type Area Commercial Or Institutional Cleaner Device Identifier Shelf Expiration Date Model / Serial / Lot [employer] Kclt-06 Device 6fr Closure Celt Acd Vascular Sterile Latex Free Disposable Keisha - [id number] Implanted:Qty: 1 on 06/07/2020 by Tera Torre MD at [facility] Right: Femoral [employer] 10/27/2022 KCLT-06 / / [id number] [employer] [id number] Danie-Zaki ds Perimount Magna Ease Thermafix 25mm - [id number] - [id number] Implanted:Qty: 1 on 06/23/2020 by Francia Worley MD at [facility] Heart [employer] 02/24/2024 [id number] / [id number] / Procedures Procedure Name Priority Date/Time Associated Diagnosis Comments EGFR Routine 04/10/2024 1:47 PM MOVING WORKER Paroxysmal atrial fibrillation (CMS/HCC) (HCC) High risk medication use BASIC METABOLIC PANEL Routine 04/10/2024 1:47 PM MOVING WORKER Paroxysmal atrial fibrillation (CMS/HCC) (HCC) High risk medication use ECG 12-LEAD Routine 04/10/2024 12:56 PM MOVING WORKER Paroxysmal atrial fibrillation (CMS/HCC) (HCC) COLONOSCOPY 05/13/2020 12:01 PM MOVING WORKER from Last 3 Months or Most Recently Relevant to Health Maintenance Results * eGFR (04/10/2024 1:47 PM MOVING WORKER) eGFR 72 >=60 mL/min/1. 73 m2 Comment: Interpretive Data Reference Interval Normal ?>/= 90 mL/min/1.73m2 Mildly decreased* ? 60 - 89 mL/min/1.73m2 Mildly to moderately decreased ?45 - 59 mL/min/1.73m2 Moderately to severely decreased ??30 - 44 mL/min/1.73m2 Severely decreased ?15 - 29 mL/min/1.73m2 Kidney Failure ?< 15 ??mL/min/1.73m2 *Relative to young adult level Estimated glomerular filtration rate is determined by the 2020 CKD-EPI equation recommended by the National Kidney Foundation (A Unifying Approach to GFR Estimation: Recommendations of the NKF-ASK Task Force on Reassessing the Inclusion of Race in Diagnosing Kidney Disease, JASN 2020). The CKD-EPI equation should not be used for patients with unstable renal function and has not been validated in children and those over 70. Current interpretive data was last reviewed 2021. Blood 04/10/2024 1:47 PM MOVING WORKER 04/10/2024 2:35 PM MOVING WORKER us Jarett Toney MD PhD LAB BLOOD ORDERABLE S Final Result [facility] [address] [facility]. [place] [address] * Basic metabolic panel (04/10/2024 1:47 PM MOVING WORKER) Sodium 139 135 - 145 mmol/L Potassium, pl 4.4 3.3 - 4.9 mmol/L [facility] Chloride 101 97 - 110 mmol/L [facility] CO2 29 22 - 32 mmol/L [facility] Anion gap 9 2 - 15 mmol/L [facility] BUN 22 6 - 25 mg/dL [facility] Creatinine 1.06 0.80 - 1.30 mg/dL [facility] Glucose 119 70 - 199 mg/dL [facility] Comment: Interpretive Data Fasting glucose >/= 126 mg/dl is diagnostic for diabetes. ?? Fasting is defined as no caloric intake for at least 8 hours. Fasting glucose between 100 mg/dl to 125 mg/dl is diagnostic of prediabetes. In a patient with classic symptoms of hyperglycemia or hyperglycemic crisis, a random glucose >/= 200 mg/dl is diagnostic for diabetes. In the absence of unequivocal hyperglycemia, results should be confirmed by repeat testing. The classification and Diagnosis of Diabetes Diabetes Care 2021; 46: S19-S40. Current interpretive data was last revised 2022. Calcium 9.8 8.5 - 10.3 mg/dL [facility] Blood 04/10/2024 1:47 PM MOVING WORKER 04/10/2024 2:35 PM MOVING WORKER Jarett Toney MD PhD LAB BLOOD ORDERABLE S Final Result [facility] [address] [address] [facility]. [place] [address] * ECG 12 lead (04/10/2024 12:56 PM MOVING WORKER) us Jarett Toney MD PhD ECG ORDERABLES Quentin timoteo Result - Final * COLONOSCOPY (05/13/2020 12:01 PM MOVING WORKER) Anatomical Region Laterality Modality Other Narrative Procedure Note Leslie Aparicio MD - 05/13/2020 12:01 PM [facility] Patient Name: Marizol Grimaldo Procedure Date: 05/13/2020 12:01 PM Date of : 1945 Admit Type: Inpatient Age: 74 Gender: Male Attending MD: Leslie Aparicio M.D. Room: [facility] OR POD 5 ROOM 224 Note Status: Finalized Procedure: Colonoscopy Indications: Hematochezia Referring MD: Fermin Kramer M.D. Providers: Leslie Aparicio M.D., Lolwa Al-Floyd, M.D. Medicines: Monitored Anesthesia Care Complications: No immediate complications. Estimated Blood Loss: Estimated blood loss was minimal. Procedure: Pre-Anesthesia Assessment: - Prior to the procedure, a History and Physical was performed, and patient medications, allergies and sensitivities were reviewed. The patient's toleranceof previous anesthesia was reviewed. - Immediately prior to administration ofmedications, the patient was re-assessed for adequacy to receive sedatives. - The risks and benefits of the procedure and the sedation options and risks were discussed with the patient. All questions were answered and informed consent was obtained. The benefits, risks and alternatives of theprocedure and sedation were discussed and informed consent was obtained. All questions were answered. Please referto the signed informed consent document in the medical record. The scope was passed under direct vision.The [id number] Endoscope was introduced throughthe anus and advanced to the the cecum, identified by appendiceal orifice and ileocecal valve. The colonoscopy was performed without difficulty. The quality of the bowel preparation was evaluated using the BBPS ([place] Bowel Preparation Scale) withscores of: Right Colon = 2 (minor amount of residualstaining, small fragments of stool and/or opaque liquid, but mucosa seen well), Transverse Colon = 2 (minoramount of residual staining, small fragments of stooland/or opaque liquid, but mucosa seen well) and Left Colon= 2 (minor amount of residual staining, small fragmentsof stool and/or opaque liquid, but mucosa seen well).The total BBPS score equals 6. The quality of the bowel preparation was good. The quality of the bowel preparation was good. The bowel preparation used was GoLYTELY. Split Dose in Name box and Bowel prep was administered using a split dose. Findings: The perianal and digital rectal examinations were normal. Five sessile polyps were found in the descending colon and transverse colon. The polyps were 3 to 8 mm in size. Considering his severeaortic stenosis and his risk for periprocedural complications, I elected to remove the polyps. Two polyps were removed with a cold snare.Resection and retrieval were complete. Three polyps were removed with a jumbocold forceps. Resection and retrieval were complete. For hemostasis, one hemostatic clip was successfully placed in the transverse colon.There was no bleeding at the end of the procedure. Hematin (altered blood/vcrklq-qljfrf-ojru material) was found in the recto-sigmoid colon. Lavage of the area was performed using a large amount, resulting in clearance with good visualization. Many small and large-mouthed diverticula were found in the sigmoid colon. There was no evidence of diverticular bleeding. I examined the rectosigmoid colon twice trying to identify if any diverticulum had active bleeding or high risk stigmata but could not identify any. Internal hemorrhoids were found during retroflexion. The hemorrhoids were large. Impression: - Five 3 to 8 mm polyps in the descending colon andin the transverse colon, removed with a cold snare and removed with a jumbo cold forceps. Resected and retrieved. Clip was placed. - Blood in the recto-sigmoid colon. - Diverticulosis in the sigmoid colon. There was no evidence of diverticular bleeding. - Internal hemorrhoids. Recommendation: - Await pathology results. - The bleeding was likely diverticular. If thebleeding recurs with hemodynamic instability, please obtainCT angiography and consult interventional radiology. Electronically signed by Leslie Aparicio MD Leslie Aparicio M.D. 05/13/2020 12:57:58 PM Number of Addenda: 0 Note Initiated On: 05/13/2020 12:01 PM Recognized by the [place] [employer] for promoting quality in endoscopy Leslie Aparicio MD ENDOSCOPY PROCEDURES Final Resu lt from Last 3 Months or Most Recently Relevant to [place] [address] [facility] FEDERAL MEDICARE [place] [facility] Address: [address] [address] [place] [address] ANTH ACCESS BLUE [facility] Advance Directives For more information, please contact: [phone] Documents on File Type Date Recorded Patient Hand 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 Expl anation ADVANCE DIRECTIVE 06/23/2020 5:48 AM Power of Autocad Designer-Medical * Full Code (Latest Code Status on File) Date Activated Date Inactivated Comments 11/19/2022 8:04 PM 11/22/2022 9:35 PM * Full Code Date Activated Date Inactivated Comments 06/23/2020 3:48 PM 06/28/2020 10:11 PM * Full Code Date Activated Date Inactivated Comments 06/23/2020 3:45 PM 06/23/2020 3:48 PM * Full Code Date Activated Date Inactivated Comments 06/07/2020 1:43 PM 06/07/2020 7:01 PM * Full Code Date Activated Date Inactivated Comments 05/25/2020 7:03 AM 05/26/2020 4:41 AM Care Teams Musical Performer Relationship Specialty Start Date End Date Martin López MD [address] [address] PCP - General 06/27/12 Khalif Ca MD [address] [address] Referring Physician Cardiology 04/08/19 Francia Worley MD [address] [address] Surgeon Cardiothoracic Surgery 06/28/20 Tera Torre MD [address] [address] Consulting Physician Cardiology 06/28/20
--- OUTSIDE RECORDS SUMMARY | 2024-04-20 00:12 | XMS_ITS | Referral Summary ---
Author Organization [facility] Address [address] [place] [address] Care Team Providers Care Per Assessment Nurse Name Role Phone Martin López MD Primary Care Provider Khalif Ca MD Unavailable [phone] Francia Worley MD Unavailable Tera Torre MD Unavailable [phone] Encounters Date Type Department Care Team Description 04/10/2024 1:40 PM ONLINE RETAILER Lab [facility] [address] [place] [address] Paroxysmal atrial fibrillation (CMS/HCC) (HCC); High risk medication use 04/10/2024 1:00 PM ONLINE RETAILER Office Visit [facility] Cardiology [facility] Medical Office Building [address] [place] [address] Jarett Toney MD PhD Paroxysmal atrial fibrillation (CMS/HCC) (HCC) (Primary Dx); High risk medication use 02/13/2024 Telephone [facility] Cardiology [facility] 8th [place] [address] [place] [address] Tera Torre MD cardiac risk assessment 02/11/2024 Telephone [facility] Cardiology [facility] 8th [place] [address] [place] [address] Tera Torre MD cardiac risk assessment from Last 3 Months Allergies No known active allergies Medications montelukast [...] 06/25/2020 Assessment & Plan (06/28/2020 9:32 AM ONLINE RETAILER): Expected finding s/p CABG, AVR Monitor CBC daily Transfused 1 unit PRBCs on 06/25 for H&H 6./ Today 7.6, will follow with daily CBCs Hx of colonic and GI bleeds (H Pylori) Added FeSo4 Guaiac all specimens-continue bid PPI Atrial fibrillation (CMS/HCC) 06/25/2020 Assessment & Plan (06/28/2020 9:35 AM ONLINE RETAILER): Developed A fib with RVR 06/25 Rx: [...] (06/09/2020): Added automatically from request for surgery [id number] Assessment & Plan (06/27/2020 9:12 AM ONLINE RETAILER): S/p CABG x 3 as L radial-OM, SVG-PDA also 06/23 Continue ASA, Statin, beta doni. Increase BB as tolerated Left RA hand with improved Mobility today, incision OK. Using ball and ROM exercises Acute GI bleeding 05/11/2020 Assessment & Plan (05/11/2020 9:52 AM ONLINE RETAILER): History suggests a lower tract source. He [...] 05/11/2020 Assessment & Plan (06/25/2020 9:13 AM ONLINE RETAILER): Continue Atorvastatin Low fat diet Assessment & Plan (05/13/2020 12:06 PM ONLINE RETAILER): Home regimen: atorvastatin 10 mg daily. Plan: - continue atorvastatin Assessment & Plan (05/11/2020 12:15 AM ONLINE RETAILER): Continue lipitor Hematochezia 05/11/2020 Assessment & Plan (05/13/2020 12:04 PM ONLINE RETAILER): 1 day history of hematochezia increasing in [...] 03/01/2015 Assessment & Plan (06/28/2020 9:29 AM ONLINE RETAILER): S/p AVR (25 mm Magna ease) 06/23 Routine post op care Ct and lennon out Hep gtt off, holding coumadin due to high risk GI bleed and recent diverticular bleed Wires out Sinus disease Overview (05/11/2020): mild Severe aortic stenosis Overview (05/11/2020): with a mean gradient 42 mm Hg and EF 55% Assessment & Plan (05/13/2020 12:07 PM ONLINE RETAILER): Was scheduled for outpatient cath with Dr. Torre on 05/11/20. Asymptomatic. IPAP was consulted for his colonoscopy on 05/13/20. Plan: - avoid large volume boluses - continue to monitor Assessment & Plan (05/11/2020 9:50 AM ONLINE RETAILER): The pt is currently undergoing pre-operative workup [...] essential Assessment & Plan (06/28/2020 9:30 AM ONLINE RETAILER): VS q 4 hrs Continue Metoprolol Increased dose to 12.5 BID yesterday Assessment & Plan (05/13/2020 12:05 PM ONLINE RETAILER): Home regimen: benazepril and amlodipine. Plan: - HOLD anti-hypertensives in setting of GIB Assessment & Plan (05/11/2020 9:51 AM ONLINE RETAILER): As tolerated given GIB Pleural 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 Immunizations Name Administration Dates Next Due Influenza, Unspecified 01/28/2020 Social History Tobacco Use Types Packs/Day Years [...] on file Legal Sex Male 9:13 PM ONLINE RETAILER Gender Identity Male 07/25/2023 3:40 PM CDT Sexual Orientation Straight 10/28/2019 9: 50 AM CDT Last Filed Vital Signs Vital Sign Reading Time Taken Comments Blood Pressure 165/105 04/10/2024 12:53 PM ONLINE RETAILER Pulse 58 04/10/2024 12:53 PM ONLINE RETAILER Temperature 36.3 ??C (97.3 ??F) 11/22/2022 3:40 PM CD T Respiratory Rate 18 11/22/2022 3:40 PM CDT Oxygen Saturation 99% 04/10/2024 12:53 PM ONLINE RETAILER Inhaled Oxygen Concentration - - Weight 83.9 kg (185 lb) 04/10/2024 12:53 PM ONLINE RETAILER Height 175.3 cm (5' 9 ) 04/10/2024 12:53 PM ONLINE RETAILER Body Mass Index 27.32 04/10/2024 12:53 PM ONLINE RETAILER Plan of Treatment Not on file Medical Devices Implanted Type Area Executive Communications Manager Device Identifier Shelf Expiration Date Model / Serial / Lot [employer] Kclt-06 Device 6fr Closure Celt Acd Vascular Sterile Latex Free Disposable Keisha - [id number] Implanted:Qty: 1 on 06/07/2020 by Tera Torre MD at [facility] Right: Femoral [employer] 10/27/2022 [facility]-06 / / [id number] [employer] [id number] Danie-Zaki ds Perimount Magna Ease Thermafix 25mm - [id number] - [id number] Implanted:Qty: 1 on 06/23/2020 by Francia Worley MD at [facility] Heart [employer] 02/24/2024 [id number] / [id number] / Procedures Procedure Name Priority Date/Time Associated Diagnosis Comments EGFR Routine 04/10/2024 1:47 PM ONLINE RETAILER Paroxysmal atrial fibrillation (CMS/HCC) (HCC) High risk medication use BASIC METABOLIC PANEL Routine 04/10/2024 1:47 PM ONLINE RETAILER Paroxysmal atrial fibrillation (CMS/HCC) (HCC) High risk medication use ECG 12-LEAD Routine 04/10/2024 12:56 PM ONLINE RETAILER Paroxysmal atrial fibrillation (CMS/HCC) (HCC) COLONOSCOPY 05/13/2020 12:01 PM ONLINE RETAILER from Last 3 Months or Most Recently Relevant to Health Maintenance Results * eGFR (04/10/2024 1:47 PM ONLINE RETAILER) eGFR 72 >=60 mL/min/1. 73 m2 Comment: [...] last reviewed 2021. Blood 04/10/2024 1:47 PM ONLINE RETAILER 04/10/2024 2:35 PM ONLINE RETAILER us Jarett Toney MD PhD LAB BLOOD ORDERABLE S Final Result [facility] [address] [facility]. Department [place] [address] * Basic metabolic panel (04/10/2024 1:47 PM ONLINE RETAILER) [facility] Sodium 139 135 - 145 mmol/L Potassium, pl 4.4 3.3 - 4.9 mmol/L [facility] Chloride 101 97 - 110 mmol/L [facility] CO2 29 22 - 32 mmol/L [facility] Anion gap 9 2 - 15 mmol/L [facility] BUN 22 6 - 25 mg/dL [facility] Creatinine 1.06 0.80 - 1.30 mg/dL [facility] Glucose 119 70 - 199 mg/dL [facility] Comment: Interpretive Data Fasting glucose >/= 126 [...] classification and Diagnosis of Diabetes Diabetes Care 202; 46: S19-S40. Current interpretive data was last revised 2022. Calcium 9.8 8.5 - 10.3 mg/dL [facility] Blood 04/10/2024 1:47 PM ONLINE RETAILER 04/10/2024 2:35 PM ONLINE RETAILER Jarett Toney MD PhD LAB BLOOD ORDERABLE S Final Result [facility] [address] [facility]. Department [place] [address] * ECG 12 lead (04/10/2024 12:56 PM ONLINE RETAILER) us aJrett Toney MD PhD ECG ORDERABLES Quentin timoteo Result - Final * COLONOSCOPY (05/13/2020 12:01 PM ONLINE RETAILER) Anatomical Region Laterality Modality Other Narrative Procedure Note Leslie Aparicio MD - 05/13/2020 12:01 PM CST [facility] Patient Name: Marizol Grimaldo Procedure Date: 05/13/2020 12:01 PM Date of : 1945 Admit Type: Inpatient Age: 74 Gender: Male Attending MD: Leslie Aparicio M.D. Room: [facility] OR POD 5 ROOM 224 Note Status: Finalized Procedure: Colonoscopy Indications: Hematochezia Referring MD: Fermin Kramer M.D. Providers: Leslie Aparicio M.D., Ofe Lazo M.D. Medicines: Monitored Anesthesia Care Complications: No [...] The scope was passed under direct vision.The [id number] Endoscope was introduced throughthe anus and advanced to the the cecum, identified by appendiceal orifice and ileocecal valve. The colonoscopy was performed without difficulty. The quality of the bowel preparation was evaluated using the BBPS (Parnell Bowel Preparation Scale) withscores of: Right Colon [...] the end of the procedure. Hematin (altered blood/smnqoz-qnlzin-noit material) was found in the recto-sigmoid colon. [...] On: 05/13/2020 12:01 PM Recognized by the [employer] for promoting quality in endoscopy Leslie Aparicio MD ENDOSCOPY PROCEDURES Final Resu lt from Last 3 Months or Most Recently Relevant to Health Maintenance Insurance [facility] MEDICARE [id number] [place] [employer] [place] [address] MEDICARE [facility] ACCESS Member Subscriber Plan / Payer ( fective 2015-Present) Name:Marizol Grimaldo Relation to Subscriber:Self Name:Marizol Grimaldo Payer ID:[id number] (NAIC) Group ID:[id number] Type: ALLIANCE Address: [address] Advance Directives For more information, please contact: [phone] Documents on File Type Date Recorded Patient Emergency Room Specialist Expl anation ADVANCE DIRECTIVE 06/23/2020 5:48 AM Power of Ux Designer-Medical * Full Code (Latest Code Status [...] 7:03 AM 05/26/2020 4:41 AM Care Teams Per Assessment Nurse Relationship Specialty Start Date End Date Martin López MD [address] [address] PCP - General 06/27/12 Khalif Ca MD [address] [address] Referring Physician Cardiology 04/08/19 Francia Worley MD [address] [address] Surgeon Cardiothoracic Surgery 06/28/20 Tera Torre MD [address] [address] Consulting Physician Cardiology 06/28/20
--- OUTSIDE RECORDS SUMMARY | 2024-04-20 00:12 | XMS_ITS | Encounter Summary ---
Author Organization [facility] Healthcare Address [address] [place] [address] Care Team Providers Care Electrical Cad Designer Name Role Phone Martin López MD Primary Care Provider Khalif Ca MD Unavailable [phone] Francia Worley MD Unavailable Tera Torre MD Unavailable [phone] Encounter Details Date Type Department Care Team (Late st Contact Info) Description 04/10/2024 1:40 PM SMELTING ENGINEER Lab [facility] [address] [place], [place] [id number] Paroxysmal atrial fibrillation (CMS/HCC) (HCC); High risk medication use Social History Tobacco Use Types Packs/Day Years [...] on file Legal Sex Male 9:13 PM SMELTING ENGINEER Gender Identity Male 07/25/2023 3:40 PM CDT Sexual Orientation Straight 10/28/2019 9: 50 AM CDT documented as of this encounter Plan of Treatment Not on file documented as of this encounter Procedures Procedure Name Priority Date/Time Associated Diagnosis Comments EGFR Routine 04/10/2024 1:47 PM SMELTING ENGINEER Paroxysmal atrial fibrillation (CMS/HCC) (HCC) High risk medication use BASIC METABOLIC PANEL Routine 04/10/2024 1:47 PM SMELTING ENGINEER Paroxysmal atrial fibrillation (CMS/HCC) (HCC) High risk medication use documented in this encounter Results * eGFR (04/10/2024 1:47 PM SMELTING ENGINEER) eGFR 72 >=60 mL/min/1. 73 m2 Comment: [...] of Race in Diagnosing Kidney Disease, JASN 202). The CKD-EPI equation should not be used for patients with unstable renal function and has not been validated in children and those over 70. Current interpretive data was last reviewed 2021. Blood 04/10/2024 1:47 PM SMELTING ENGINEER 04/10/2024 2:35 PM SMELTING ENGINEER us Jarett Toney MD PhD LAB BLOOD ORDERABLE S Final Result Performing Organization Address City/[facility]/ZIP Co de Phone Number [facility] [address] [employer] [email or web address] [address] * Basic metabolic panel (04/10/2024 1:47 PM SMELTING ENGINEER) Sodium 139 135 - 145 mmol/L Potassium, pl 4.4 3.3 - 4.9 mmol/L [facility] Chloride 101 97 - 110 mmol/L [facility] CO2 29 22 - 32 mmol/L [facility] Anion gap 9 2 - 15 mmol/L [facility] BUN 22 6 - 25 mg/dL [facility] Creatinine 1.06 0.80 - 1.30 mg/dL [facility] Glucose 119 70 - 199 mg/dL [facility] Comment: Interpretive Data Fasting glucose >/= 126 [...] 2022. Calcium 9.8 8.5 - 10.3 mg/dL [facility] Blood 04/10/2024 1:47 PM SMELTING ENGINEER 04/10/2024 2:35 PM SMELTING ENGINEER Jarett Toney MD PhD LAB BLOOD ORDERABLE S Final Result Performing Organization Address City/[facility]/ZIP Co de Phone Number [facility] B[facility] [address] [employer]. Department [email or web address] [address] documented in this encounter Visit Diagnoses Diagnosis Paroxysmal atrial fibrillation (CMS/HCC) (HCC) Atrial fibrillation High risk medication use documented in this encounter Care Teams Electrical Cad Designer Relationship Specialty Start Date End Date Martin López MD [address] [facility] [address] [place] [address] PCP - General 06/27/12 Khalif Ca MD [address] [address] Referring Physician Cardiology 04/08/19 Francia Worley MD [address] [address] Surgeon Cardiothoracic Surgery 06/28/20 Tera Torre MD [address] [address] Consulting Physician Cardiology 06/28/20 documented as of this encounter
--- OUTSIDE RECORDS SUMMARY | 2024-04-20 00:12 | XMS_ITS | Encounter Summary ---
Author Organization [facility] Address [address] [place] [address] Phone Care Team Providers Care Unisaw Operator Name Role Phone Martin López MD Primary Care Provider Khalif Ca MD Unavailable [phone] Francia Worley MD Unavailable Tera Torre MD Unavailable Encounter Details Date Type Department Care Team (Late st Contact Info) Description 01/01/2024 11:00 AM CDT Office Visit [facility] Cardiology [address] [facility] Medical Office Building [address] [place] [address] Tera Torre MD [facility] [place] [address] Coronary artery disease involving ugashik coronary artery of ugashik heart without angina pectoris (Primary Dx); Paroxysmal [...] on file Legal Sex Male 9:13 PM PMO MANAGER Gender Identity Male 07/25/2023 3:40 PM CDT Sexual Orientation Straight 10/28/2019 9: 50 AM CDT documented as of this encounter Last Filed Vital Signs Vital Sign Reading Time Taken Comments Blood Pressure 175/98 01/01/2024 11:37 AM CDT Pulse 54 01/01/2024 11:37 AM CDT Temperature - - Respiratory Rate - - Oxygen Saturation 100% 01/01/2024 11:37 AM CDT Inhaled Oxygen Concentration - - Weight 83.9 kg (185 lb) 01/01/2024 11:37 AM CDT Per Patient Height 175.3 cm (5' 9 ) 01/01/2024 11:37 AM CDT Body Mass Index 27.32 01/01/2024 11:37 AM CDT documented in this encounter Patient Instructions * Patient Instructions* Erin Casas RN - 01/01/2024 11:00 AM CDT Follow up with Dr. Torre in 6 months. Please contact us with any questions via [employer] or by calling our office at . documented in this encounter Progress Notes * Brenton Diana MD - 01/01/2024 11:00 AM CDT Images from the original note were not included. [facility] Department of Medicine Cardiovascular Division Tera Torre M.D. [employer] at [facility] [place] [address], [address] [place] [phone], [email or web address] Date: 01/01/2024 Primary care Physician Martin López MD [address] [address] Patient Name: Nathan Wagner Date of : [...] the pleasure of seeing Nathan Wagner today [facility] for follow-up of his atrial fibrillation coronary artery disease and aortic valve replacement. As you know, He is a pleasant 78 y.o. male who we last saw a few months ago. Blood pressure at home ranges 100-140 systolic and 80s diastolic. He has been having right hip and back pain for which he has seen Orthopedics locally. Has been advised to see Pain Management for possible injections. He is considering going to PT as well. He was considering going to a chiropractor but given his history of sternotomy he is apprehensive and doesn'tplan to. Patient denies chest pain, dyspnea, lightheadedness, dizziness, syncope, lower extremity edema, orthopnea, or PND. He denies any TIA or stroke symptoms. He has no bleeding in the urine or stool. CURRENT MEDICATIONS: Current Outpatient Medications: acetaminophen (TYLENOL) 325 mg tablet amLODIPine (NORVASC) 5 mg tablet aspirin 81 mg enteric coated tablet atorvastatin (LIPITOR) 80 mg tablet Eliquis 5 mg tablet lisinopriL (PRINIVIL,ZESTRIL) 40 mg tablet montelukast (SINGULAIR) 10 mg tablet sotaloL (BETAPACE) 80 mg tablet travoprost (TRAVATAN Z) 0.004 % drops PHYSICAL EXAMINATION: There were no vitals filed for this visit. GENERAL: He is alert and oriented, in no acute distress. Speaks in full sentences. HEENT: Extraocular muscles intact. Sclerae white. Mucous membranes are moist. NECK: No thyromegaly. No lymphadenopathy. No JVD. LUNGS: Clear to auscultation bilaterally. HEART: Regular rate and rhythm. Systolic murmur+, No gallops or rubs presents ABDOMEN: Non tender, [...] anticoagulation without change. Coronary artery disease. He is having no active symptoms of angina. He [...] reach out with any questions or concerns. Plan of care discussed with attending. Brenton Diana MD Interventional Sales And Marketing Director Tera Torre M.D. web programmer CC: Martin López MD [address] [place] [address] Cosigned by Tera Torre MD at 01/28/2024 8:58 AM CDT Associated attestation - Tera Torre MD - 01/28/2024 8:58 AM CDT I have seen and examined the patient. I agree with the findings and plan of care as documented in the resident/fellow's note. My total encounter time on 01/01/2024 was 20 minutes which was spent in theactivities documented in the note. This includes time spent prior to the visit and after the visit in direct care of the patient. This time does not include time spent in any separately reportable ser vices. documented in this encounter Plan of Treatment Not on file documented as of this encounter Visit Diagnoses Diagnosis Coronary artery disease involving ugashik coronary artery of ugashik heart without angina pectoris- Primary Paroxysmal atrial fibrillation (CMS/HCC) (HCC) Atrial fibrillation documented in this encounter Care Teams Unisaw Operator Relationship Specialty Start Date End Date Martin López MD [address] [address] PCP - General 06/27/12 Khalif Ca MD [address] [address] Referring Physician Cardiology 04/08/19 Francia Worley MD [address] [address] Surgeon Cardiothoracic Surgery 06/28/20 Tera Torre MD [address] [address] Consulting Physician Cardiology 06/28/20 documented as of this encounter
--- OUTSIDE RECORDS SUMMARY | 2024-04-20 00:12 | XMS_ITS ---
Author Organization [facility] Address [address] [place] [address] Care Team Providers Care Logistician Name Role Phone Martin López MD Primary Care Provider Khalif Ca MD Unavailable [phone] Francia Worley MD Unavailable Tera Torre MD Unavailable [phone] Active Problems Problem Noted Date Diagnosed Date High risk medication use 10/18/2023 Atrial fibrillation with RVR (CMS/HCC) 3 Basal cell carcinoma 03/05/2022 Acute postoperative anemia due to expected blood loss 06/25/2020 Assessment & Plan (06/28/2020 9:32 AM HAND STRIPPER): Expected finding s/p CABG, AVR Monitor CBC daily Transfused 1 unit PRBCs on 06/25 for H&H 6.5/20 Today 7.6, will follow with daily CBCs Hx of colonic and GI bleeds (H Pylori) Added FeSo4 Guaiac all specimens-continue bid PPI Atrial fibrillation (CMS/HCC) 06/25/2020 Assessment & Plan (06/28/2020 9:35 AM HAND STRIPPER): Developed A fib with RVR 06/25 Rx: [...] (06/09/2020): Added automatically from request for surgery [id number] Assessment & Plan (06/27/2020 9:12 AM HAND STRIPPER): S/p CABG x 3 as L radial-OM, SVG-PDA also 06/23 Continue ASA, Statin, beta doni. Increase BB as tolerated Left RA hand with improved Mobility today, incision OK. Using ball and ROM exercises Acute GI bleeding 05/11/2020 Assessment & Plan (05/11/2020 9:52 AM HAND STRIPPER): History suggests a lower tract source. He [...] 05/11/2020 Assessment & Plan (06/25/2020 9:13 AM HAND STRIPPER): Continue Atorvastatin Low fat diet Assessment & Plan (05/13/2020 12:06 PM HAND STRIPPER): Home regimen: atorvastatin 10 mg daily. Plan: - continue atorvastatin Assessment & Plan (05/11/2020 12:15 AM HAND STRIPPER): Continue lipitor Hematochezia 05/11/2020 Assessment & Plan (05/13/2020 12:04 PM HAND STRIPPER): 1 day history of hematochezia increasing in [...] 03/01/2015 Assessment & Plan (06/28/2020 9:29 AM HAND STRIPPER): S/p AVR (25 mm Magna ease) 06/23 Routine post op care Ct and lennon out Hep gtt off, holding coumadin due to high risk GI bleed and recent diverticular bleed Wires out Sinus disease Overview (05/11/2020): mild Severe aortic stenosis Overview (05/11/2020): with a mean gradient 42 mm Hg and EF 55% Assessment & Plan (05/13/2020 12:07 PM HAND STRIPPER): Was scheduled for outpatient cath with Dr. Torre on 05/11/20. Asymptomatic. IPAP was consulted for his colonoscopy on 05/13/20. Plan: - avoid large volume boluses - continue to monitor Assessment & Plan (05/11/2020 9:50 AM HAND STRIPPER): The pt is currently undergoing pre-operative workup [...] essential Assessment & Plan (06/28/2020 9:30 AM HAND STRIPPER): VS q 4 hrs Continue Metoprolol Increased dose to 12.5 BID yesterday Assessment & Plan (05/13/2020 12:05 PM HAND STRIPPER): Home regimen: benazepril and amlodipine. Plan: - HOLD anti-hypertensives in setting of GIB Assessment & Plan (05/11/2020 9:51 AM HAND STRIPPER): As tolerated given GIB Pleural 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 Current Oncology Plans No current plan information found. Past Plans No past plan information found. Radiation Treatments * No radiation treatments are documented for this patient in [facility]. Treatments may have been administered in another system. Lifetime Dose Tracking * Chemical Lifetime Dose Automatic Entry Manual Entr y Air kerma at the reference point (Ka,r) 1,401 mGy 0 mGy 1,401 mGy DLP 2,308 mGycm 2,308 mGycm 0 mGycm
--- OUTSIDE RECORDS SUMMARY | 2024-04-20 00:12 | XMS_ITS | Encounter Summary ---
Author Organization [facility] Address [address] [place] [address] Phone Care Team Providers Care Supply Chain Technician Name Role Phone Martin López MD Primary Care Provider Khalif Ca MD Unavailable [phone] Francia Worley MD Unavailable Tera Torre MD Unavailable [phone] Reason for Referral * Cardiology (Routine) - Authorized Specialty Diagnoses / Procedures Referred By Contac t Referred To Contact Diagnoses Paroxysmal atrial fibrillation (CMS/HCC) (HCC) Procedures ECG 12 lead Jarett Toney MD PhD [address] [address] Phone: tel: fax: [facility] (All Locations) Referral ID Status Reason Start Date Expiration Date V isits Requested Visits Authorized [id number] Authorized 04/10/2024 05/10/[address] MAGISTRATE Encounter Details Date Type Department Care Team (Late st Contact Info) Description 04/10/2024 1:[address] MAGISTRATE Office Visit [facility] Cardiology [facility] Medical Office Building [address] [place] [address] Jarett Toney MD PhD [address] [facility] [address] [place] [address] Paroxysmal atrial fibrillation (CMS/HCC) (HCC) (Primary Dx); High risk medication use Social History Tobacco [...] on file Legal Sex Male 9:[address] MAGISTRATE Gender Identity Male 07/25/2023 3:40 PM CDT Sexual Orientation Straight 10/28/2019 9: 50 AM CDT documented as of this encounter Last Filed Vital Signs Vital Sign Reading Time Taken Comments Blood Pressure 165/105 04/10/2024 12:[address] MAGISTRATE Pulse 58 04/10/2024 12:[address] MAGISTRATE Temperature - - Respiratory Rate - - Oxygen Saturation 99% 04/10/2024 12:[address] MAGISTRATE Inhaled Oxygen Concentration - - Weight 83.9 kg (185 lb) 04/10/2024 12:[address] MAGISTRATE Height 175.3 cm (5' 9 ) 04/10/2024 12:[address] MAGISTRATE Body Mass Index 27.32 04/10/2024 12:[address] MAGISTRATE documented in this encounter Progress Notes * Jarett Toney MD PhD - 04/10/2024 1:00 PM CST Cardiac Electrophysiology Follow-Up I had the pleasure of seeing Nathan Wagner (1945) at the [facility] Cardiac Electrophysiology Service on 04/10/2024, in follow-up for atrial fibrillation. Mr. Wagner is a 78 y.o. man man with a history of hypertension, coronary disease and coronary bypass surgery, severe and bioAVR, and atrial fibrillation. He was admitted in October of 2022, after feeling unwell at a libertarian. Holter monitor revealed paroxysmal atrial fibrillation and he underwent sotalolloading. His [id number] score is 4. He is on apixaban. Echo on 22 November 2022 revealed an LV ejection fraction of 0.60., normal function of the bioAVR, normal left atrium (LA volume index, 34.9; normal 16-34). Today he returns for follow up and reports that he is doing well. He's had no symptoms of atrial fibrillation. He's worried about foot pain that he thinks may be gout. Past Medical History He has a past medical history of Basal cell carcinoma, Cancer (CMS/HCC) ([facility]), Coronary artery disease, Diverticulosis, GERD (gastroesophageal reflux disease), GI bleed (2014), Glaucoma, H pylori ulcer, Heart murmur, Hemorrhoid, History of blood transfusion (2014), HTN (hypertension), Hyperlipidemia, Severe aortic stenosis, and Sinus disease. He has no past medical history of Acute respiratory failure requiring reintubation ([facility]/HCC) ([facility]),Arthritis, Asthma, Awareness under anesthesia, CHF (congestive heart failure) (CMS/HCC) ([facility]), COPD(chronic obstructive pulmonary disease) ([facility]), Delayed emergence from general anesthesia, Diabetes mellitus ([facility]), Hard to intubate, Hematoma, Malignant hyperthermia, Motion sickness, Pneumothorax, PONV (postoperative nausea and vomiting), Postoperative delirium, Pseudocholinesterase deficiency, Sleep apnea, Spinal headache, Stroke ([facility]), or Thyroid disease. He has a past [...] total) by mouth daily 30 tablet 0 aspirin 81 mg enteric coated tablet Take 1 tablet (81 mg total) by mouth every morning (Patient nottaking: Reported on 01/01/2024) atorvastatin (LIPITOR) 80 mg tablet Take 1 tablet (80 mg total) by mouth daily (Patient taking differently: Take 1 tablet (80 mg total) by mouth every morning) 30 tablet 1 Eliquis 5 mg tablet TAKE 1 TABLET BY MOUTH TWICE A DAY 180 tablet 3 lisinopriL (PRINIVIL,ZESTRIL) 40 mg tablet TAKE 1 TABLET BY MOUTH DAILY (DOSE ADJUSTMENT) 90 tablet3 montelukast (SINGULAIR) 10 mg tablet Take 1 tablet (10 mg total) by mouth nightly sotaloL (BETAPACE) 80 mg tablet TAKE 1 TABLET BY MOUTH 2 TIMES A DAY. 180 tablet 3 travoprost (TRAVATAN Z) 0.004 % drops Administer 1 drop into both eyes nightly (Patient not taking:Reported on 01/01/2024) No facility-administered medications prior to visit. Allergies Patient has no known allergies. Family History His family history includes Arrhythmia in his brother; Cancer in his mother; Heart attack in his maternal grandfather; Heart disease in his mother; Hypertension in his brother and mother. Social History Mr. Wagner reports that he quit smoking about 54 years ago. His smoking use included cigarettes. He has never used smokeless tobacco. He reports that he does not currently use drugs. Patient denies consuming alcoholic drinks. Physical Examination On physical examination, the patient is in no distress. BP (!) 165/105 (BP Location: Left arm, Patient Position: Sitting) Pulse 58 Ht 175.3 cm (5' 9 ) Wt 83.9 kg (185 lb) SpO2 99% BMI 27.32 kg/m?? Head and neck were [...] There was a regular rhythm with no murmur rub or gallop. The abdomen was soft, not tender. There was no organomegaly or mass. Bowel sounds were present. The extremities were without edema. The skin was warm and dry without rash. The affect was normal. Diagnostic Data ECG: ECG today revealed Sinus Bradycardia -Right bundle branch block with left axis -bifascicular block. Tracing is marred by artifact; interpretation is limited. LABS: Chemistry Lab Results Component Value Date SODIUM 140 11/22/2022 POTASSIUM 4.5 11/22/2022 CHLORIDE 104 11/22/2022 CO2 26 11/22/2022 ANIONGAP 10 11/22/2022 BUNSER 31 (H) 11/22/2022 CREATININE 1.25 11/22/2022 GLUCOSE 137 11/22/2022 CALCIUM 8.9 11/22/2022 BILITOT 0.8 11/19/2022 ALBUMIN 4.2 11/19/2022 GFRNAA 60 (L) 11/22/2022 ALKPHOS 68 11/19/2022 AST 25 11/19/2022 ALT 24 11/19/2022 PHOS 2.8 11/21/2022 MAGNESIUM 2.3 11/21/2022 CrCl cannot be calculated (Patient's most recent lab result is older than the maximum 90 days allowed.). Lab Results Component Value Date TSH 1.95 11/19/2022 Lab Results Component Value Date WBC 7.4 11/21/2022 HGB 15.0 11/21/2022 HCT 42.2 11/21/2022 MCV 86.1 11/21/2022 LABPLAT 188 11/21/2022 Impression I've made no recommendation for change in his medical regimen. We will chack a BMP since he is on sotalol. We will plan to follow-up in six months' time, provided no new concerns arise in the interim. It's a pleasure to see Mr. Wagner again. I'm grateful for the opportunity to participate in his care. Rico Hood, MAde. line driver [facility] in [place] 04/10/[address] MAGISTRATE documented in this encounter Plan of Treatment Not on file documented as of this encounter Procedures Procedure Name Priority Date/Time Associated Diagnosis Comments ECG 12-LEAD Routine 04/10/2024 12:[address] MAGISTRATE Paroxysmal atrial fibrillation (CMS/HCC) (HCC) documented in this encounter Results * Basic metabolic panel (04/10/2024 1:[address] MAGISTRATE) Sodium 139 135 - 145 mmol/L Potassium, pl 4.4 3.3 - 4.9 mmol/L [facility] Chloride 101 97 - 110 mmol/L [facility] CO2 29 22 - 32 mmol/L [facility] Anion gap 9 2 - 15 mmol/L [facility] BUN 22 6 - 25 mg/dL [facility] Creatinine 1.06 0.80 - 1.30 mg/dL [facility] Glucose 119 70 - 199 mg/dL [facility] Comment: Interpretive Data Fasting glucose >/= 126 [...] 2022. Calcium 9.8 8.5 - 10.3 mg/dL [facility] Blood 04/10/2024 1:[address] MAGISTRATE 04/10/2024 2:[address] MAGISTRATE Jarett Toney MD PhD LAB BLOOD ORDERABLE S Final Result DANA ARANDACH [address] [facility] [place] [address] * ECG 12 lead (04/10/2024 12:[address] MAGISTRATE) us Jarett Toney MD PhD ECG ORDERABLES Quentin timoteo Result - Final documented in this encounter Visit Diagnoses Diagnosis Paroxysmal atrial fibrillation (CMS/HCC) (HCC)- Primary Atrial fibrillation High risk medication use documented in this encounter Care Teams Supply Chain Technician Relationship Specialty Start Date End Date Martin López MD [address] [facility] [address] [place] [address] PCP - General 06/27/12 Khalif Ca MD [address] [address] Referring Physician Cardiology 04/08/19 Francia Worley MD [address] [address] Surgeon Cardiothoracic Surgery 06/28/20 Tera Torre MD [address] [address] Consulting Physician Cardiology 06/28/20 documented as of this encounter
--- OUTSIDE RECORDS SUMMARY | 2024-04-20 00:12 | XMS_ITS | Encounter Summary ---
Author Organization [facility] Address [address] [place] [address] Phone Care Team Providers Care Commissary Superintendent Name Role Phone Martin López MD Primary Care Provider Khalif Ca MD Unavailable [phone] Francia Worley MD Unavailable Tera Torre MD Unavailable [phone] Reason for Visit * Reason Onset Date Comments cardiac risk assessment 02/13/2024 Encounter Details Date Type Department Care Team (Late st Contact Info) Description 02/13/2024 Telephone [facility] Cardiology [address] [facility] 8th [place] [address] [place] [address] Tera Torre MD [address] [place] [address] cardiac risk assessment Social History [...] on file 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 Dias's office called stating they received clearance for pt to stop blood thinner but they don't know how long before procedure patient should stop and when to resume. She stated it also says patient will need an antibiotic and would like to know if Dr. Torre will prescribe it. She can be reached at [phone]. documented in this encounter Plan of Treatment Not on file documented as of this encounter Visit Diagnoses Not on filedocumented in this encounter Care Teams Commissary Superintendent Relationship Specialty Start Date End Date Martin López MD [address] [address] PCP - General 06/27/12 Khalif Ca MD [facility] [address] [address] Referring Physician Cardiology 04/08/19 Francia Worley MD [address] [address] Surgeon Cardiothoracic Surgery 06/28/20 Tera Torre MD [address] [facility] [address] [place] [id number] Consulting Physician Cardiology 06/28/20 documented as of this encounter
--- OUTSIDE RECORDS SUMMARY | 2024-04-20 00:12 | XMS_ITS | Encounter Summary ---
Author Organization [facility] Address [address] [place] [address] Phone Care Team Providers Care Field Service Analyst Name Role Phone Martin López MD Primary Care Provider Khalif Ca MD Unavailable [phone] Francia Worley MD Unavailable Tera Torre MD Unavailable [phone] Reason for Referral * Cardiology (Routine) - Authorized Specialty Diagnoses / Procedures Referred By Contac t Referred To Contact Diagnoses Paroxysmal atrial fibrillation (CMS/HCC) (HCC) Procedures ECG 12 lead Jarett Toney MD PhD Phone: tel: fax: [facility] (All Locations) Referral ID Status Reason Start Date Expiration Date V isits Requested Visits Authorized [id number] Authorized 10/18/2023 11/16/2024 1 1 Encounter Details Date Type Department Care Team (Late st Contact Info) Description 10/18/2023 1:00 PM CDT Office Visit [facility] Cardiology [address] [facility] Medical Office Building [address] [place] [address] Jarett Toney MD PhD [address] 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 Gender Identity Male 07/25/2023 3:40 PM CDT Sexual Orientation Straight 10/28/2019 9: 50 AM CDT documented as of this encounter Last Filed Vital Signs Vital Sign Reading Time Taken Comments Blood Pressure 185/105 10/18/2023 12:40 PM CDT Pulse 58 10/18/2023 12:40 PM CDT Temperature - - Respiratory Rate - - Oxygen Saturation 98% 10/18/2023 12:40 PM CDT Inhaled Oxygen Concentration - - Weight 83.9 kg (185 lb) 10/18/2023 12:40 PM CDT Height 175.3 cm (5' 9 ) 10/18/2023 12:40 PM CDT Body Mass Index 27.32 10/18/2023 12:40 PM CDT documented in this encounter Progress Notes * Jarett Toney MD PhD - 10/18/2023 1:00 PM CDT Cardiac Electrophysiology Follow-Up I had the pleasure of seeing Nathan Wagner (1945) at the [facility] Cardiac Electrophysiology Service on 10/18/2023, in follow-up for atrial fibrillation. Mr. Wagner is a 77 y.o. man with a history of hypertension, coronary disease and coronary bypass surgery, severe and bioAVR, and atrial fibrillation. He was admitted in October of 2022, after feeling unwell at a democrat. Holter monitor revealed paroxysmal atrial fibrillation and he underwent sotalol loading. His [id number] score is 4. He is on apixaban. Echo on 22 November 2022 revealed an LV ejection fraction of 0.60., normal function of the bioAVR, normal left atrium (LA volume index, 34.9; normal 16-34). Today he returns for follow up and reports that he is doing very well. He's had no symptoms of atrial fibrillation since an episode in May 2023. . Past Medical History He has a past medical history of Basal cell carcinoma, Cancer (CMS/HCC) ([facility]), Coronary artery disease, Diverticulosis, GERD (gastroesophageal reflux disease), GI bleed (2014), Glaucoma, H pylori ulcer, Heart murmur, Hemorrhoid, History of blood transfusion (2014), HTN (hypertension), Hyperlipidemia, Severe aortic stenosis, and Sinus disease. He has no past medical history of Acute respiratory failure requiring reintubation ([facility]/HCC) ([facility]),Arthritis, Asthma, Awareness under anesthesia, CHF (congestive heart failure) (CMS/HCC) ([facility]), COPD(chronic obstructive pulmonary disease) ([facility]), Delayed emergence from general anesthesia, Diabetes mellitus ([facility]), Hard to intubate, Hematoma, Malignant hyperthermia, Motion sickness, Pneumothorax, PONV (postoperative nausea and vomiting), Postoperative delirium, Pseudocholinesterase deficiency, Sleep apnea, Spinal headache, Stroke ([facility]), or Thyroid disease. He has a past [...] (81 mg total) by mouth every morning atorvastatin (LIPITOR) 80 mg tablet Take 1 [...] Administer 1 drop into both eyes nightly No facility-administered medications prior to visit. Allergies [...] Examination On physical examination, the patient is well appearing eldlerly man in no distress. BP (!) 185/105 (BP Location: Right arm, Patient Position: Sitting) Pulse 58 Ht 175.3 cm (5' 9 ) Wt 83.9 kg (185 lb) SpO2 98% BMI 27.32 kg/m?? Head and neck were [...] normal. Diagnostic Data ECG: ECG today revealed sinus rhythm with right bundle branch block. LABS: Chemistry Lab Results Component Value Date [...] change in his medical regimen. We will check a BMP since he is on sotalol. We will plan to follow-up in six months' time, provided no new concerns arise in the interim. It's a pleasure to see Mr. Wagner again. I'm grateful for the opportunity to participate in his care. Rico Hood M.D. clock smith [facility] in [place] 10/18/2023 documented in this encounter Plan of Treatment Scheduled Orders Name Type Priority Associated Diagnoses Orde r Schedule Basic metabolic panel Lab Routine Paroxysmal atrial fibrillation (CMS/HCC) (HCC) High risk medication use Expected: 10/21/2023, Expires: 10/17/2024 documented as of this encounter Procedures Procedure Name Priority Date/Time Associated Diagnosis Comments ECG 12-LEAD Routine 10/18/2023 12:45 PM CDT Paroxysmal atrial fibrillation (CMS/HCC) (HCC) documented in this encounter Results * ECG 12 lead (10/18/2023 12:45 PM CDT) us Jarett Toney MD PhD ECG ORDERABLES Quentin timoteo Result - Final documented in this encounter Visit Diagnoses Diagnosis Paroxysmal atrial fibrillation (CMS/HCC) (HCC)- Primary Atrial fibrillation High risk medication use documented in this encounter Care Teams Field Service Analyst Relationship Specialty Start Date End Date Martin López MD [address] [address] PCP - General 06/27/12 Khalif Ca MD [address] [address] Referring Physician Cardiology 04/08/19 Francia Worley MD [address] [address] Surgeon Cardiothoracic Surgery 06/28/20 Tera Torre MD [address] [address] Consulting Physician Cardiology 06/28/20 documented as of this encounter
--- OUTSIDE RECORDS SUMMARY | 2024-04-20 00:13 | XMS_ITS | Encounter Summary ---
Author Organization [facility] Address [address] [place] [address] Phone Care Team Providers Care Clinical Laboratory Medical Director Name Role Phone Martin López MD Primary Care Provider Khalif Ca MD Unavailable [phone] Francia Worley MD Unavailable Tera Torre MD Unavailable [phone] Encounter Details Date Type Department Care Team (Late st Contact Info) Description 11/16/2022 Orders Only [facility] Cardiology [address] [facility] 8th [place] [address] [place] [address] Erin Casas, RN Social History Tobacco Use Types Packs/Day Years [...] more drinks on one occasion? 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 Gender Identity Male 07/25/2023 3:40 PM CDT Sexual Orientation Straight 10/28/2019 9: 50 AM CDT documented as of this encounter Ordered Prescriptions Prescription Sig Dispense Quantity Refills Last Filled Start Date End Date apixaban (Eliquis) 5 mg tablet Take 1 tablet (5 mg total) by mouth 2 (two) times a day 180 tablet 3 11/16/2022 08/13/2023 documented in this encounter Plan of Treatment Not on file documented as of this encounter Visit Diagnoses Not on filedocumented in this encounter Care Teams Clinical Laboratory Medical Director Relationship Specialty Start Date End Date Martin López MD [address] [facility] [address] [facility] [address] [place] [address] PCP - General 06/27/12 Khalif Ca MD [address] [place] [address] [address] Referring Physician Cardiology 04/08/19 Franica Worley MD [address] [place] [address] [address] Surgeon Cardiothoracic Surgery 06/28/20 Tera Torre MD [address] [facility] [address] [address] Consulting Physician Cardiology 06/28/20 documented as of this encounter
--- OUTSIDE RECORDS SUMMARY | 2024-04-20 00:13 | XMS_ITS | Encounter Summary ---
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 Gender Identity Male 07/25/2023 3:40 PM CDT Sexual Orientation Straight 10/28/2019 9: 50 AM CDT documented as of this encounter Plan of Treatment Not on file documented as of this encounter Procedures Procedure Name Priority Date/Time Associated Diagnosis Comments CARDIOLOGY DOCUMENT SCAN 10/26/2022 9:15 AM CDT documented in this encounter Results * CARDIOLOGY DOCUMENT SCAN (10/26/2022 9:15 AM CDT) Anatomical Region Laterality Modality Other us Provider Scanning CV CARDIAC SERVICES PROCEDURES Final Result documented in this encounter Visit Diagnoses Not on filedocumented in this encounter Care Teams Offset Assistant Press Operator Relationship Specialty Start Date End Date Martin López MD [address] [address] PCP - General 06/27/12 Khalif Ca MD [address] [facility] [address] [address] Referring Physician Cardiology 04/08/19 Francia Worley MD [address] [address] Surgeon Cardiothoracic Surgery 06/28/20 Tera Torre MD [address] [address] Consulting Physician Cardiology 06/28/20 documented as of this encounter
--- OUTSIDE RECORDS SUMMARY | 2024-04-20 00:13 | XMS_ITS | Encounter Summary ---
Author Organization [facility] Address [address] [place] [address] Phone Care Team Providers Care Mechanical Insulator Name Role Phone Martin López MD Primary Care Provider Khalif Ca MD Unavailable [phone] Francia Worley MD Unavailable Tera Torre MD Unavailable [phone] Reason for Visit * Reason Onset Date Comments Sotalol load admission 11/14/2022 Encounter Details Date Type Department Care Team (Late st Contact Info) Description 11/14/2022 Telephone [facility] Cardiology [address] 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 Dr. Torre requested we arrange for a direct admit for a Sotalol Load afib. He wants pt to admittedon [facility] on 11/19 or 11/26. Called Admitting, spoke with Aby. Admission scheduled for 11/19/22. Pt notified of admit date and that he will be contacted by Admitting once his bed is available. Verb understanding. documented in this encounter Plan of Treatment Not on file documented as of this encounter Visit Diagnoses Not on filedocumented in this encounter Care Teams Mechanical Insulator Relationship Specialty Start Date End Date Martin López MD [address] [place] [address] PCP - General 06/27/12 Khalif Ca MD [facility] [address] [address] Referring Physician Cardiology 04/08/19 Francia Worley MD [facility] [address] [address] Surgeon Cardiothoracic Surgery 06/28/20 Tera Torre MD [address] [address] Consulting Physician Cardiology 06/28/20 documented as of this encounter
--- OUTSIDE RECORDS SUMMARY | 2024-04-20 00:13 | XMS_ITS | Encounter Summary ---
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 Gender Identity Male 07/25/2023 3:40 PM CDT Sexual Orientation Straight 10/28/2019 9: 50 AM CDT documented as of this encounter Plan of Treatment Not on file documented as of this encounter Visit Diagnoses Not on filedocumented in this encounter Care Teams Kiln Furniture Saw Tender Relationship Specialty Start Date End Date Martin López MD [address] [address] PCP - General 06/27/12 Khalif Ca MD [address] [address] Referring Physician Cardiology 04/08/19 Francia Worley MD [address] [address] Surgeon Cardiothoracic Surgery 06/28/20 Tera Torre MD [address] [address] Consulting Physician Cardiology 06/28/20 documented as of this encounter
--- OUTSIDE RECORDS SUMMARY | 2024-04-20 00:13 | XMS_ITS | Encounter Summary ---
Author Organization [facility] Address [address] [place] [address] Phone Care Team Providers Care Ammonia Box Tender Name Role Phone Martin López MD Primary Care Provider Khalif Ca MD Unavailable [phone] Francia Worley MD Unavailable Tera Torre MD Unavailable Encounter Details Date Type Department Care Team (Late st Contact Info) Description 11/14/2022 9:15 AM CDT Office Visit [facility] Cardiology [address] [facility] Medical Office Building [address] [place] [address] Trea Torre MD [facility] [place] [address] Paroxysmal atrial fibrillation (CMS/HCC) (HCC) (Primary Dx) [...] on file 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 Gender Identity Male 07/25/2023 3:40 PM CDT Sexual Orientation Straight 10/28/2019 9: 50 AM CDT documented as of this encounter Last Filed Vital Signs Vital Sign Reading Time Taken Comments Blood Pressure 155/96 11/14/2022 9:05 AM CDT Pulse 72 11/14/2022 9:05 AM CDT Temperature - - Respiratory Rate - - Oxygen Saturation 99% 11/14/2022 9:05 AM CDT Inhaled Oxygen Concentration - - Weight 85.7 kg (189 lb) 11/14/2022 9:05 AM CDT Height 175.3 cm (5' 9 ) 11/14/2022 9:05 AM CDT Body Mass Index 27.91 11/14/2022 9:05 AM CDT documented in this encounter Patient Instructions * Patient Instructions* Addy Matthews MD - 11/14/2022 9:15 AM CDT We will schedule an admission for a Sotalol load. We will call you with details once available. Apixaban prescription needed. documented in this encounter Progress Notes * Addy Matthews MD - 11/14/2022 9:15 AM CDT Images from the original note were not included. [facility] Department of Medicine Cardiovascular Division Tera Torre M.D. [employer] [facility], [place] [address], [address] [place] [id number], [email or web address] Date: 11/14/2022 Primary care Physician Martin López MD [address] [place] [id number] Patient Name: Nathan Wagner Date of : [...] had postoperative AFib in 2020 after CABG/AVR. H. Pylori gastritis in mid , had upper GI bleed requiring blood transfusions INTERVAL HISTORY: We had the pleasure of seeing Nathan Wagner today [facility] for follow-up of his aortic stenosis, coronary artery disease and atrial fibrillation. As you know, He is a pleasant 76 y.o. male with the above medical history. Since his last visit, he has been doing well aside from new onset Afib. He was at his grandson's 8th grade graduation on 09/17 and felt unwell generally; he checked his BP and it was elevated and his HR was in the 160s. He called into clinic and a 48 hour holter monitor showed paroxysms of AFib with RVR. He has a nonspecific sensation in his throat when his episodes occur. They last for no more than 10 minutes. The symptoms happen multiple times weekly (almost daily). No dizziness, presyncope, chest pain, dyspnea. On his heart monitor most of the time his HR is in high 50s to 60s. He is not currently on an anticoagulant. He snores a little but doesn't wake up feeling short of breath ever. He drinks beer sparingly (every few months) and occasionally a mixed drink. He drinks 1.5 cups of coffee in the AM. BP today 155/96 but home BP records show pressures in 120-130s systolic primarily. He walks over 3 miles 4 times weekly. CURRENT MEDICATIONS: Current Outpatient Medications on File Prior to Visit Medication Sig Dispense Refill acetaminophen (TYLENOL) 325 mg tablet Take 2 tablets (650 mg total) by mouth every 4 (four) hours as needed for pain 30 tablet aspirin 81 mg enteric coated tablet Take 1 tablet (81 mg total) by mouth every morning atorvastatin (LIPITOR) 80 mg tablet Take 1 tablet (80 mg total) by mouth daily (Patient taking differently: Take 1 tablet (80 mg total) by mouth every morning) 30 tablet 1 lisinopriL (PRINIVIL,ZESTRIL) 40 mg tablet Take 1 tablet (40 mg total) by mouth daily 90 tablet 3 metoprolol XL (TOPROL-XL) 50 mg extended release tablet Take 1 tablet (50 mg total) by mouth daily 90 tablet 3 montelukast (SINGULAIR) 10 mg tablet Take 1 tablet (10 mg total) by mouth nightly travoprost (TRAVATAN Z) 0.004 % drops Administer 1 drop into both eyes nightly No current facility-administered medications on file prior to visit. PHYSICAL EXAMINATION: Vitals: 11/14/22 0905 BP: 155/96 BP Location: Right arm Patient Position: Sitting Pulse: 72 SpO2: 99% Weight: 85.7 kg (189 lb) Height: 175.3 cm (5' 9 ) GENERAL: He is alert and oriented, in no acute distress. Speaks in full sentences. HEENT: Extraocular muscles intact. Sclerae white. Mucous membranes are moist. NECK: No lymphadenopathy. No JVD. LUNGS: Clear to auscultation bilaterally. HEART: Regular rate and rhythm. No murmurs, gallops or rubs presents. ABDOMEN: Non tender, no distended. No hepatosplenomegaly. MUSCULOSKELETAL: He has +5 strength in both upper and lower extremities, bilateral and symmetric. NEUROLOGIC: He is alert and oriented x4. Grossly normal motor and sensation bilaterally and symmetric. VASCULAR: He has +2 radial pulses bilaterally and symmetric. No lower extremity edema. IMPRESSION AND PLAN: Atrial Fibrillation: Paroxysmal with frequent symptoms. We discussed rhythm control options including medications and the possibility of ablation. He would prefer sotalol loading. Also discussed rationale for anticoagulation for thromboembolic prophylaxis. [id number] score is 3, indicating 3% risk of stroke annually. -Admission for sotalol loading -Will need to start apixaban for anticoagulation Coronary artery disease: He is doing quite well from a coronary artery disease standpoint is havingno symptoms of angina. He should continue his current medications without change. Aortic stenosis: He is doing well post surgical aortic valve replacement. He should continue his current medications without change Hypertension: BP elevated in clinic today but well controlled on home records. Continue lisinopril 40 mg daily and metoprolol succinate 50 mg daily. Thank you for allowing us to participate in the care of this patient. We would be happy to see him back in 6 months time or sooner as needed. Please don't hesitate to reach out with any questions or concerns. Addy Matthews MD Restaurant General Manager CC: Martin López MD [address] [place] [address] Cosigned by Tera Torre MD at 11/19/2022 3:54 PM CDT Associated attestation - Tera Torre MD - 11/19/2022 3:54 PM CDT I have seen and examined the patient. I agree with the findings and plan of care as documented in the resident/fellow's note. My total encounter time on 11/14/2022 was 45 minutes which was spent in the activities documented in the note. This includes time spent prior to the visit and after the visitin direct care of the patient. This time does not include time spent in any separately reportable services. documented in this encounter Plan of Treatment Not on file documented as of this encounter Visit Diagnoses Diagnosis Paroxysmal atrial fibrillation (CMS/HCC) (HCC)- Primary Atrial fibrillation documented in this encounter Care Teams Ammonia Box Tender Relationship Specialty Start Date End Date Martin López MD [address] [place], [place] [id number] PCP - General 06/27/12 Khalif Ca MD [address] [place] [address] Referring Physician Cardiology 04/08/19 Francia Worley MD [address] [place] [address] [place] [address] Surgeon Cardiothoracic Surgery 06/28/20 Tera Torre MD [address] [facility] [address] [place] [address] Consulting Physician Cardiology 06/28/20 documented as of this encounter
--- OUTSIDE RECORDS SUMMARY | 2024-04-20 00:13 | XMS_ITS | Encounter Summary ---
Author Organization [facility] Address [address] [place] [address] Phone Care Team Providers Care Cartridge Assembler Name Role Phone Martin López MD Primary Care Provider Khalif Ca MD Unavailable [phone] Francia Worley MD Unavailable Tera Torre MD Unavailable Encounter Details Date Type Department Care Team (Late st Contact Info) Description 05/22/2022 Orders Only [facility] Cardiology [address] [facility] Advanced Medicine 8th [place] [address] [place] [address] Erin Casas, RN Social History [...] on file 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 Gender Identity Male 07/25/2023 3:40 PM CDT Sexual Orientation Straight 10/28/2019 9: 50 AM CDT documented as of this encounter Ordered Prescriptions Prescription Sig Dispense Quantity Refills Last Filled Start Date End Date metoprolol XL (TOPROL-XL) 25 mg extended release tablet Take 1 tablet (25 mg total) by mouth daily 90 tablet 3 05/22/2022 10/16/2022 lisinopriL (PRINIVIL,ZESTRIL) 40 mg tablet Take 1 tablet (40 mg total) by mouth daily 90 tablet 3 05/22/2022 04/25/2023 documented in this encounter Plan of Treatment Not on file documented as of this encounter Visit Diagnoses Not on filedocumented in this encounter Discontinued Medications Medication Sig Discontinue Reason Start Date End Da te lisinopriL (PRINIVIL,ZESTRIL) 30 mg tablet Take 1 tablet (30 mg total) by mouth daily 05/16/2022 05/22/2022 metoprolol XL (TOPROL-XL) 25 mg extended release tablet Take 1 tablet (25 mg total) by mouth daily Reorder 05/16/2022 05/22/2022 documented as of this encounter Care Teams Cartridge Assembler Relationship Specialty Start Date End Date Martin López MD [address] [address] PCP - General 06/27/12 Khalif Ca MD [address] [address] Referring Physician Cardiology 04/08/19 Francia Worley MD [address] [place] [address] Surgeon Cardiothoracic Surgery 06/28/20 Tera Torre MD [address] [facility] [address] [place] [address] Consulting Physician Cardiology 06/28/20 documented as of this encounter
--- OUTSIDE RECORDS SUMMARY | 2024-04-20 00:13 | XMS_ITS | Encounter Summary ---
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 Procedures Bronchoscopy -[facility] Interventional Pulm; Bronchoscopy, EBUS LINEAR Kvng Gross Chi, MD [address] [place] [address] Phone: tel: fax: [facility] [address] [address] Phone: tel: fax: Referral ID Status Reason Start Date Expiration Date Visits Re quested Visits Authorized [id number] Closed 02/26/2022 03/28/2023 1 1 OYEE BENEFITS DIRECTOR Reason for Visit * Reason Comments Bronchoscopy * Pulmonology (Routine) - Closed Specialty Diagnoses / Procedures Referred By Contac t Referred To Contact Pulmonology Diagnoses Pleural 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 Procedures Bronchoscopy -[facility] Interventional Pulm; Bronchoscopy, EBUS LINEAR Kvng Gross Chi, MD [address] [place] [address] Phone: tel: fax: [facility] [address] [facility] [address] [place] [address] Phone: tel: fax: Referral ID Status Reason Start Date Expiration Date Visits Re quested Visits Authorized [id number] Closed 02/26/2022 03/28/2023 1 1 Encounter Details Date Type Department Care Team (Latest Contact Info) Description 03/05/2022 11:08 AM EMPLOYEE BENEFITS DIRECTOR - 03/05/2022 1:11 PM EMPLOYEE BENEFITS DIRECTOR Hospital Encounter [facility] Interventional Pulmonology [address] [place] [address] Pleural 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 Discharge Disposition: Discharge to home or self care Social History Tobacco Use Types Packs/Day Years [...] on file Legal Sex Male 9:13 PM EMPLOYEE BENEFITS DIRECTOR Gender Identity Male 07/25/2023 3:40 PM CDT Sexual Orientation Straight 10/28/2019 9: 50 AM CDT documented as of this encounter Last Filed Vital Signs Vital Sign Reading Time Taken Comments Blood Pressure 108/60 03/05/2022 1:10 PM EMPLOYEE BENEFITS DIRECTOR Pulse 61 03/05/2022 1:10 PM EMPLOYEE BENEFITS DIRECTOR Temperature 36.3 ??C (97.4 ??F) 03/05/2022 1:07 PM CS T Respiratory Rate 15 03/05/2022 1:10 PM EMPLOYEE BENEFITS DIRECTOR Oxygen Saturation 95% 03/05/2022 1:10 PM EMPLOYEE BENEFITS DIRECTOR Inhaled Oxygen Concentration - - Weight 81.6 kg (180 lb) 03/05/2022 11:19 AM EMPLOYEE BENEFITS DIRECTOR Height 175.3 cm (5' 9 ) 03/05/2022 11:19 AM EMPLOYEE BENEFITS DIRECTOR Body Mass Index 26.58 03/05/2022 11:19 AM EMPLOYEE BENEFITS DIRECTOR documented in this encounter Discharge Instructions * Patient Instructions* Adán Alas RN - 03/05/2022 12:30 PM EMPLOYEE BENEFITS DIRECTOR Interventional Pulmonology Post Bronchoscopy Instructions - Patient Family Education THE PROCEDURE YOU HAD TODAY WAS A BRONCHOSCOPY. The sedation medicine you received today can stay in your body for up to 24 hours You may have: Short-term memory loss, such as loss of memory from the procedure or things that happen shortly afterwards. Feeling drowsy or sleepy Feeling dizzy or lightheaded Nausea (sick to your stomach) Headache For the next 24 hours after your procedure Do NOT drive a car or operate heavy machinery. You will need someone to drive you home today Do NOT drink alcohol Do NOT smoke Do NOT make important decisions or sign any legal papers Do NOT stay by yourself. Stay with a responsible adult tonight Do NOT bathe or shower until tomorrow Be careful when standing, walking, changing positions, or using steps Slowly ease into regular activities. You may resume work or exercise as directed by your doctor. When you start eating, try liquids first and slowly progress to a light meal You may resume your current medications as diected by your doctor The following symptoms are common 24 to 48 hours after a bronchoscopy You may cough up small amounts of dark red, old blood Your throat may be sore for 2 or more days. Try soups, Jell-O, and ice-cream until it feels better You may develop a fever. Use Tylenol (acetaminophen) as directed on the bottle or as directed by your primary care provider for fever. Please call the [facility] Interventional Pulmonology Department at , Saturday through Saturday 8:30am to 4:30pm Or, go to the nearest emergemcy department if you have. Fever that lasts more than 2 days or is over 100 degrees Fahrenheit Any shortness of breath Chest pain or tightness in the chest Coughing up large amounts of blood meaning more than 1-2 teaspoons If you had fluid or tissue samples sent today for testing, you should receive a call from our medical team about your results. Please call if you have not been contacted within 5 business days. If this is an emergency, call 911. If you are unable to speak to the staff during normal business hours, please call and ask for the Tape Fastener Machine Operator surgical nurse practitioner. I have received and understand these instructions and my questions were answered. / / ____: Date Time Signature of Patient OR Person Authorized to Sign/Relationship Printed Name / / ____: Date Time Nurse Signature Printed Name OYEE BENEFITS DIRECTOR documented in this encounter Medications at Time of Discharge acetaminophen (TYLENOL) 325 mg tablet Take 2 tablets (650 mg total) by mouth every 4 (four) hours as needed for pain 30 tablet 06/28/2020 aspirin 81 mg enteric coated tablet Take 1 tablet (81 mg total) by mouth every morning atorvastatin (LIPITOR) 80 mg tablet Take 1 tablet (80 mg total) by mouth daily 30 tablet 1 06/28/2020 montelukast (SINGULAIR) 10 mg tablet Take 1 tablet (10 mg total) by mouth nightly 04/02/2016 travoprost (TRAVATAN Z) 0.004 % drops Administer 1 drop into both eyes nightly 03/31/2015 lisinopriL (PRINIVIL,ZESTRI L) 20 mg tablet Take 1 tablet (20 mg total) by mouth daily 30 tablet 3 05/25/2021 3 metoprolol tartrate (LOPRESSOR) 25 mg immediate release tablet TAKE 1 TABLET BY MOUTH TWICE A DAY 180 tablet 3 07/03/2021 3 documented as of this encounter Discharge Disposition Disposition Code Departure Means Destination Discharge to home or self care documented in this encounter Procedure Notes * Kvng Gross Chi, MD - 03/05/2022 12:07 PM CSTAssociated Order(s): BRONCHOSCOPY [facility] Interventional Pulmonary Patient Name: Marizol Wagner Procedure Date: 03/05/2022 12:07 PM Date of : 1945 Admit Type: Outpatient Age: 76 Room: ROOM 1 Gender: Male Note Status: Finalized Procedure: Bronchoscopy EBUS-TBNA Indications: Mediastinal adenopathy Providers: Kvng Gross M.D. Referring MD: Martin López M.D. Medicines: Lidocaine 1% applied to cords 10 mL, Lidocaine 1% subglottic space 20 mL, Midazolam 9 mg IV, Fentanyl 225 mcg IV Complications: No immediate complications Procedure: Pre-Anesthesia Assessment: - The risks and benefits of the procedure and the sedation options and risks were discussed with the patient. All questions were answered and informed consent was obtained. After obtaining informed consent, the Bronchoscope was introduced through the mouth, via laryngeal mask airway and advanced to the tracheobronchial tree of both lungs. the Bronchoscope was introduced through the and advanced to the. The procedure was accomplished without difficulty. The patient tolerated the procedure well. Estimated Blood Loss: Estimated blood loss was minimal. Findings: 1. Airway inspection The laryngeal mask airway is in good position. The vocal cords appear normal. The subglottic space is normal. The trachea is of normal caliber. The scarlet is sharp. The tracheobronchial tree was examined to at least the first subsegmental level. Bronchial mucosa and anatomy are normal; there are no endobronchial lesions, and no secretions. 2. EBUS-TBNA The linear array EBUS scope was introduced through the mouth to the subcarinal level 7 lymph node station. A lymph node was identified using EBUS at this station. Transbronchial needle aspiration using a 22 gauge aspiration needle times 3 was performed at the subcarinal station under continuous endobronchial ultrasound guidance. The linear array EBUS scope was advanced to the left paratracheal level 4L lymph node station. A lymph node was identified using EBUS at this station. Transbronchial needle aspiration using a 22 gauge aspiration needle times 6 was performed at the 4L station under continuous endobronchial ultrasound guidance. Impression: - EBUS-TBNA was performed from the subcarinal and left paratracheal lymph node stations Recommendation: - Await cytology results. Attending Participation: I was present and participated. Electronically signed by Dr. Gross Kvng Gross M.D. 03/05/2022 12:58:27 PM Number of Addenda: 0 Note Initiated On: 03/05/2022 12:07 PM OYEE BENEFITS DIRECTOR documented in this encounter Nursing Notes * Juliann Mariscal RN - 03/05/2022 1:40 PM CST Portable Chest X-Ray performed. PCXR read by Octavia Miller DNP, No pneumothorax noted. OYEE BENEFITS DIRECTOR * Cande Jacobson RN - 03/05/2022 1:06 PM CST Report received from Suni Sepulveda RN s/p Bronchoscopy. See flowsheet for VS. Awaiting PCXR. OYEE BENEFITS DIRECTOR * Suni Sepulveda RN - 03/05/2022 1:00 PM CST [facility] Interventional Pulmonology Post Procedure Safety Debrief: [x]Post procedure nursing note to be completed by the assigned procedure registered nurse. [x]Procedure note to be completed by provider(s). [x]Post procedure orders complete in epic [x]Specimens, if applicable, processed accordingly by assigned respiratory therapist(s) if patient had a bronchoscopy. Processed accordingly by assigned registered nurse if the patient had a pleural procedure. [x]Specimens, if applicable, labeled correctly accordingly by assigned respiratory therapist(s) if patient had a bronchoscopy. Labeled accordingly by assigned registered nurse if the patient had a pleural procedure. [x]All relevant patient disposition requirements complete [x]All sharps protocols followed. If patient had bronchoscopy, sharps disposed of by assigned respiratory therapist(s). If patient had a pleural procedure, sharps disposed of by assigned registered nurse. [x]Post recovery location clearly defined: Interventional Pulmonology Pre/Post [place] 1 OYEE BENEFITS DIRECTOR * Suni Sepulveda RN - 03/05/2022 12:58 PM CST Bronchoscopy with biopsy to 7, 4L performed by Dr. Dipak Frazier. Pt tolerated procedure well. Pt able to open eyes and follow commands prior to LMA removal. VS, Osiris, ECG as noted. See provider notesand flowsheets for procedure details. Report to Cande Jacobson, RN and Juliann Mariscal RN in pre/post procedure area. Awaiting PCXR. LMA in: 1227, LMA out: 1255 Sedation given: IV Versed 9mg, IV Fentanyl 225mcg Fluids given: 200ml 0.9NS Drug Waste 1mg Versed and 75mcg Fentanyl wasted in pyxis with Octavia Jc SAW SHARPENER OYEE BENEFITS DIRECTOR * Suni Sepulveda RN - 03/05/2022 12:13 PM CST [facility] Interventional Pulmonology Safe to Proceed Checklist 03/05/2022 [x]Patient ID confirmed [x]Patient is having a bronchoscopy [x]Allergies and medication review complete [x]Consent obtained. If patient is receiving a pleural procedure, consent is obtained after site ultrasound has been completed. []Intended site marked if applicable [x] NA [x]Updated pre procedure and ASA note complete [x]30-day history and physical completed [x]Nursing pre-procedure documentation complete []Patient takes anticoagulation NONE [x] NA []Confirmed with patient, MAR, and procedural provider that all anticoagulation protocols have beenfollowed. [x] NA [x]Special equipment is present:c-arm []Blood products available [x] NA [x]Appropriate SBAR handoff communication to procedure team has been completed [x]All relevant labs & diagnostic imaging has been reviewed and confirmed. [x]Confirmation from all involved intraprocedural caregivers that it is safe to proceed. Any special considerations/additional specific information? No OYEE BENEFITS DIRECTOR documented in this encounter Miscellaneous Notes * Pre-Sedation Documentation - Dipak Frazier MD - 03/05/2022 12:30 PM EMPLOYEE BENEFITS DIRECTOR Pre-Procedure/Pre-Sedation Assessment HPI Mr. Wagner is a 76 y.o. male who is referred for evaluation of Lymphadenopathy. I have reviewed: allergies, current medications, past family history, past medical history, past social history, past surgical history, and problem list Physical Exam: Vitals: 03/05/22 1210 BP: (!) 178/85 Pulse: 73 Resp: 11 Temp: SpO2: 98% General: No acute distress Airway Mallampati Score: 2 HEENT: NC/AT, MMM, conjunctiva pink, sclera clear Neck - full flexion/extension CV: RRR, normal S1 and S2, no M/R/G; JVD flat LUNGS: LCTAB, normal work of breathing GI: soft, NT/ND EXT: warm; no clubbing, cyanosis, or edema SKIN: no rashes NEURO: AOx4 Labs (if pertinent). Lab Results Component Value Date WBC 9.2 06/27/2020 HGB 7.6 (L) 06/27/2020 HCT 23.9 (L) 06/27/2020 MCV 90.9 06/27/2020 LABPLAT 182 06/27/2020 Lab Results Component Value Date CREATININE 1.10 11/09/2020 Lab Results Component Value Date INR 1.3 (H) 06/23/2020 No results found for: PTT IMPRESSION and PLAN: Planned procedure: Bronchoscopy Reason for Procedure: Lymphadenopathy Pre-procedure Screen reviewed The patient has been NPO for the appropriate amount of time. Prescribed use of blood thinner: No Prescribed use of antiplatelet agent: Yes - ASA 81 History of thrombocytopenia or bleeding disorder: No ASA SCORE: ASA 3 - Patient with moderate systemic disease with functional limitations SEDATION/ANESTHESIA PLAN: MODERATE sedation Informed Consent: Benefits, risks, alternatives discussed; patient/personal banking representative accepts/agrees tosedation/anesthesia plan and to the procedure. Patient has tolerated sedation in the past without complication. Post Procedure Monitoring Plan: Recovery OYEE BENEFITS DIRECTOR * Plan of Care - Adán Alas RN - 03/05/2022 12:30 PM CST Problem: Lack of Knowledge: Goal: Knowledge of diagnostic tests will improve Reactivated Goal: Ability to verbalize follow-up procedures will improve Reactivated OYEE BENEFITS DIRECTOR documented in this encounter Plan of Treatment Not on file documented as of this encounter Procedures Procedure Name Priority Date/Time Associated Diagnosis Comments XR CHEST 1 VIEW ED Urgent/IP Urgent 03/05/2022 2:01 PM EMPLOYEE BENEFITS DIRECTOR CYTOLOGY Routine 03/05/2022 12:11 PM EMPLOYEE BENEFITS DIRECTOR BRONCHOSCOPY Routine 03/05/2022 12:07 PM EMPLOYEE BENEFITS DIRECTOR Pleural 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 documented in this encounter Results * XR Chest 1 View (03/05/2022 2:01 PM EMPLOYEE BENEFITS DIRECTOR) Anatomical Region Laterality Modality Body, Chest N/A Computed Radiogr aphy 03/05/2022 3:05 PM EMPLOYEE BENEFITS DIRECTOR Impressions 03/05/2022 3:26 PM EMPLOYEE BENEFITS DIRECTOR Comparison is made to chest radiograph dated ??02/20/2022. Patient is status post median sternotomy and aortic valve replacement. Sternal wires intact, unchanged. Incidental azygos fissure, normal variant, noted. Left upper lobe parahilar nodule, correlating with groundglass opacity on PET/CT from 01/02/2022. Other groundglass opacities and mediastinal lymphadenopathy better characterized on CT from 01/02/2022. No pleural effusion. No pneumothorax. Stable cardiomediastinal silhouette Dictated by: Kal Beltran M.D. The radiology attending physician has personally reviewed this study, and had reviewed and/or edited this written report and agrees with it. Electronically signed by: Pipe Mercedes M.D. Narrative 03/05/2022 3:26 PM EMPLOYEE BENEFITS DIRECTOR EXAMINATION: 1 view chest radiograph Procedure Note Pipe Mercedes MD - 03/05/2022 EXAMINATION: 1 view chest radiograph IMPRESSION: Comparison is made to chest radiograph dated 02/20/2022. Patient is status post median sternotomy and aortic valve replacement. Sternal wires intact, unchanged. Incidental azygos fissure, normal variant, noted. Left upper lobe parahilar nodule, correlating with groundglass opacity on PET/CT from 01/02/2022. Other groundglass opacities and mediastinal lymphadenopathy better characterized on CT from 01/02/2022. No pleural effusion. No pneumothorax. Stable cardiomediastinal silhouette Dictated by: Kal Beltran M.D. The radiology attending physician has personally reviewed this study, and had reviewed and/or edited this written report and agrees with it. Electronically signed by: Pipe Mecredes M.D. Dipak Frazier MD IMG XR PROCEDURES Final Re sult * Cytology (03/05/2022 12:11 PM EMPLOYEE BENEFITS DIRECTOR) Fluid (Lymph Node (Cytology)) 03/05/2022 12:11 PM EMPLOYEE BENEFITS DIRECTOR 03/05/2022 1:59 PM EMPLOYEE BENEFITS DIRECTOR Narrative PATHOLOGY [facility] - 03/06/2022 3:13 PM EMPLOYEE BENEFITS DIRECTOR EPIC results best viewed via link to PDF [facility] [place] [address] Note to Patients: This report may contain a detailed description of human tissue sent by a health care provider to the laboratory for pathologic evaluation. The content of this report is essential for diagnosis and may provide important critical findings. This information may be unfamiliar to patients to review without a medical professional present. It is advised that the patient review this report in the presence of a health care provider who can answer questions and explain the details. CYTOPATHOLOGY REPORT FINAL WITH ADDENDUM Patient Name: ?? MARIZOL WAGNER Gender: ??M : ??1945 (Age: 76) Address: ??[address] [place] [address] [place], [place] ??[address] Hospital #: ??[id number] Taken:03/05/2022 Received:03/05/2022 Reported: 03/06/2022 Patient Type: [facility] Ancillary ?? Service: UNKNOWN Location: Physician(s): ??Kvng Gross M.D. FINAL DIAGNOSIS A. ??Lymph node, subcarina station 7, endobronchial ultrasound-guided fine needle aspiration: ? - Negative for malignancy ? - Non-caseating granulomatous inflammation B. ??Lymph node, left paratracheal station 4L, endobronchial ultrasound-guided fine needle aspiration: ? - Negative for malignancy ? - Nnon-caseating granulomatous inflammation Comments The cell blocks confirm the diagnoses. Special stains for microorganisms have been ordered, and the results will be reported in an addendum. [facility]/03/06/2022 15:13 By this signature, I attest that the above diagnosis is based upon my personal examination of the slides(and/or other material indicated in the diagnosis). Bobby Diego M.D. Report Electronically Reviewed and Signed Out By ??Bobby Diego M.D. 03/06/2022 15:13:53 Paul Vargas MS, CT([facility])PA Gross Description A. ??Lymph node, subcarina station 7, endobronchial ultrasound guided fine needle aspiration: ??3 Pap stained smear(s) and 3 Diff-Quik stained smear(s). ??1 cell block prepared from needle rinse tube. ??Aspirated by clinician. ??(LL) B. ??Lymph node, left paratracheal station 4L, endobronchial ultrasound guided fine needle aspiration: ??3 Pap stained smear(s) and 3 Diff-Quik stained smear(s). ??1 cell block prepared from needle rinse tube. ??Aspirated by clinician. ??(LL) Clinical Diagnosis and History 76 yo male with ground glass nodules and mediastinal LAD Immediate Evaluation A. ??Lymph node, subcarina station 7, endobronchial ultrasound guided fine needle aspiration: ?? Evaluation Episode 1 Overall Adequacy: Satisfactory for interpretation Total Evaluation Episodes: 1 Preliminary Diagnosis: Negative for maligancy, granulomas present ?? B. ??Lymph node, left paratracheal station 4L, endobronchial ultrasound guided fine needle aspiration: ?? Evaluation Episode 1 Overall Adequacy: Satisfactory for interpretation Total Evaluation Episodes: 1 Preliminary Diagnosis: Negative for maligancy, granulomas present Bobby Diego M.D., Ph.D. 03/05/2022 Addenda/Procedures Addendum Ordered:03/07/2022tatus:Signed OutAddendum Complete:03/07/2022y:Bobby T. Bernadt, M.D.Addendum Signed Out:03/07/2022 Addendum Comment Special stains for fungal organisms (GMS) and acid-fast bacilli (AFB) are negative. ?? By this signature, I attest that the above diagnosis is based upon my personal examination of the slides(and/or other material indicated in the diagnosis). Bobby Diego M.D.Report Electronically Reviewed and Signed Out By ??Bobby Diego M.D. ??03/07/2022 09:23:19 ?? REPORT IMAGES AND SCANNED DOCUMENTS, IF INCLUDED, ONLY VIEWABLE IN PDF VERSION OF REPORT The performance characteristics of some immunohistochemical stains, in-situ hybridization and fluorescence in-situ hybridization tests and immunophenotyping by flow cytometry cited in this report (if any) were determined by the Surgical Pathology and Flow Cytometry Departments at [facility] as part of an ongoing quality coordinator program and in compliance with federally mandated regulations drawn from the Clinical Laboratory Improvement Act of 1988 (CLIA '88). ??Some of these tests rely on the use of analyte specific reagents and are subject to specific labeling requirements by the US Food and Drug Administration. ??Such diagnostic tests may only be performed in a facility that is certified by the Department of Health and Human Services as a high complexity laboratory under CLIA '88. ??The FDA has determined that such clearance or approval is not necessary. ??This test is used for clinical purposes. ??It should not be regarded as investigational or for research. ??Nevertheless, federal rules concerning the medical use of analyte specific reagents require that the following disclaimer be attached to the report: ??This test was developed and its performance characteristics determined by the Surgical Pathology and Flow Cytometry Departments of [facility]. ??It has not been cleared or approved by the U. S. Food and Drug Administration. us Kvng Gross MD LAB CYTOLOGY ORDERABLES Fi nal Result PATHOLOGY [facility] [address]rd Floor [place], [place] [phone] * Bronchoscopy -[facility] Interventional Pulm; Bronchoscopy, EBUS LINEAR (03/05/2022 12:07 PM EMPLOYEE BENEFITS DIRECTOR) Anatomical Region Laterality Modality Other Narrative Procedure Note Kvng Gross Chi, MD - 03/05/2022 12:07 PM CST [facility] Interventional Pulmonary Patient Name: Marizol Wagner Procedure Date: 03/05/2022 12:07 PM Date of : 1945 Admit Type: Outpatient Age: 76 Room: ROOM 1 Gender: Male Note Status: Finalized Procedure: Bronchoscopy EBUS-TBNA Indications: Mediastinal adenopathy Providers: Kvng Gross M.D. Referring MD: Martin López M.D. Medicines: Lidocaine 1% applied to cords 10 mL, Lidocaine 1% subglottic space 20 mL, Midazolam 9 mg IV, Fentanyl 225 mcg IV Complications: No immediate complications Procedure: Pre-Anesthesia Assessment: - The risks and benefits of the procedure and the sedation options and risks were discussed with the patient. All questions were answered and informed consent was obtained. After obtaining informed consent, the Bronchoscopewas introduced through the mouth, via laryngeal mask airway and advanced to the tracheobronchial tree of both lungs. the Bronchoscope was introduced through the and advanced to the. The procedure was accomplished without difficulty. The patienttolerated the procedure well. Estimated Blood Loss: Estimated blood loss was minimal. Findings: 1. Airway inspection The laryngeal mask airway is in good position. The vocal cords appear normal. The subglottic space is normal. The trachea is of normal caliber. The scarlet is sharp. The tracheobronchial tree was examinedto at least the first subsegmental level. Bronchial mucosa and anatomyare normal; there are no endobronchial lesions, and no secretions. 2. EBUS-TBNA The linear array EBUS scope was introduced through the mouth to the subcarinal level 7 lymph node station. A lymph node was identifiedusing EBUS at this station. Transbronchial needle aspiration using a 22 gauge aspiration needle times 3 was performed at the subcarinal station under continuous endobronchial ultrasound guidance. The linear array EBUS scope was advanced to the left paratracheallevel 4L lymph node station. A lymph node was identified using EBUS at this station. Transbronchial needle aspiration using a 22 gauge aspiration needle times 6 was performed at the 4L station under continuousendobronchial ultrasound guidance. Impression: - EBUS-TBNA was performed from the subcarinal andleft paratracheal lymph node stations Recommendation: - Await cytology results. Attending Participation: I was present and participated. Electronically signed by Dr. Gross Kvng Gross M.D. 03/05/2022 12:58:27 PM Number of Addenda: 0 Note Initiated On: 03/05/2022 12:07 PM Kvng Gross MD BRONCH ORDERABLES Final Re sult documented in this encounter Visit Diagnoses Diagnosis Pleural 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 Pleurisy without mention of effusion or current tuberculosis documented in this encounter Administered Medications Inactive Administered Medications - up to 3 most recent administrations Medication Order MAR Action Action Date Dose Rate Site fentaNYL (SUBLIMAZE) preservative free injection Code/trauma/sedation medication, Starting on 03/05/22 at 1216 Given 03/05/2022 12:30 PM EMPLOYEE BENEFITS DIRECTOR 50 mcg Given 03/05/2022 12:25 PM EMPLOYEE BENEFITS DIRECTOR 50 mcg Given 03/05/2022 12:22 PM EMPLOYEE BENEFITS DIRECTOR 50 mcg midazolam (VERSED) 1 mg/mL preservative free injection Administer over 2 Minutes, Code/trauma/sedation medication, Starting on 03/05/22 at 1216 Given 03/05/2022 12:30 PM EMPLOYEE BENEFITS DIRECTOR 2 mg Given 03/05/2022 12:25 PM EMPLOYEE BENEFITS DIRECTOR 2 mg Given 03/05/2022 12:22 PM EMPLOYEE BENEFITS DIRECTOR 2 mg sodium chloride 0.9% infusion 50 mL/hr, intravenous, Continuous, Starting on Sat03/05/22 at 1230, For bronchoscopy procedure New Bag 03/05/2022 11:59 AM EMPLOYEE BENEFITS DIRECTOR 50 mL/hr 50 mL/hr documented in this encounter Orders Medications Ordered That Ernst ht Not Have Been Administered Count Last Ordered Date First Ordered Date fentaNYL (SUBLIMAZE) preserv ative free injection 50 mcg 1 03/05/2022 midazolam (VERSED) 1 mg/mL injection 2 mg 1 03/05/2022 documented in this encounter Care Teams Offset Plate Maker Relationship Specialty Start Date End Date Martin López MD [address] [place] [address] PCP - General 06/27/12 Khalif Ca MD [address] [place] [address] Referring Physician Cardiology 04/08/19 Francia Worley MD [address] [place] [address] Surgeon Cardiothoracic Surgery 06/28/20 Tera Torre MD [address] [place] [address] Consulting Physician Cardiology 06/28/20 documented as of this encounter
--- OUTSIDE RECORDS SUMMARY | 2024-04-20 00:13 | XMS_ITS | Encounter Summary ---
Author Organization [facility] Address [address] [place] [address] Phone Care Team Providers Care Waste Disposal Attendant Name Role Phone Martin López MD Primary Care Provider Khalif Ca MD Unavailable [phone] Francia Worley MD Unavailable Tera Torre MD Unavailable [phone] Reason for Visit * Reason Onset Date Comments heart monitor 10/22/2022 Encounter Details Date Type Department Care Team (Late st Contact Info) Description 10/22/2022 Telephone [facility] Cardiology [address] [facility] Medical Office [address] [place] [address] Tera Torre MD [address] [facility] [address] [place] [address] heart monitor Social History Tobacco Use Types Packs/Day Years [...] on file 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 Received call from [employer] re: 10/19/22 monitor. Advised pt to disregard MOVL message as pt has already obtained 48 hour monitor via PCP. Pt also updated that with increased dose of metoprolol, he's feeling better. Confirmed ROV on 11/13/22 w/ patient. No further questions at this time. documented in this encounter Plan of Treatment Not on file documented as of this encounter Visit Diagnoses Not on filedocumented in this encounter Care Teams Waste Disposal Attendant Relationship Specialty Start Date End Date Martin López MD [address] [address] PCP - General 06/27/12 Khalif Ca MD [address] [address] Referring Physician Cardiology 04/08/19 Francia Worley MD [address] [address] Surgeon Cardiothoracic Surgery 06/28/20 Tera Torre MD [address] [address] Consulting Physician Cardiology 06/28/20 documented as of this encounter
--- OUTSIDE RECORDS SUMMARY | 2024-04-20 00:13 | XMS_ITS | Encounter Summary ---
Author Organization [facility] Address [address] [place] [address] Phone Care Team Providers Care Foil Cutter Name Role Phone Martin López MD Primary Care Provider Khalif Ca MD Unavailable [phone] Francia Worley MD Unavailable Tera Torre MD Unavailable Encounter Details Date Type Department Care Team (Late st Contact Info) Description 05/16/2022 10:00 AM SOFTWARE DEVELOPER Office Visit [facility] Cardiology [address] [facility] Medical Office [address] [place] [address] Tera Torre MD [facility] [place] [address] Hypertension, essential (Primary Dx); Paroxysmal atrial fibrillation (CMS/HCC) (HCC) [...] on file 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 Gender Identity Male 07/25/2023 3:40 PM CDT Sexual Orientation Straight 10/28/2019 9: 50 AM CDT documented as of this encounter Last Filed Vital Signs Vital Sign Reading Time Taken Comments Blood Pressure 187/97 05/16/2022 10:04 AM SOFTWARE DEVELOPER Pulse 61 05/16/2022 10:02 AM SOFTWARE DEVELOPER Temperature - - Respiratory Rate - - Oxygen Saturation 99% 05/16/2022 10:02 AM SOFTWARE DEVELOPER Inhaled Oxygen Concentration - - Weight 83.2 kg (183 lb 8 oz) 05/16/2022 10:02 AM SOFTWARE DEVELOPER Height 175.3 cm (5' 9 ) 05/16/2022 10:02 AM SOFTWARE DEVELOPER Body Mass Index 27.1 05/16/2022 10:02 AM SOFTWARE DEVELOPER documented in this encounter Patient Instructions * Patient Instructions* Erin Casas RN - 05/16/2022 10:00 AM SOFTWARE DEVELOPER Follow up with [facility] in 6 months . INCREASE Lisinopril to 30 mg daily. STOP Lopressor (metoprolol tartrate). START Metoprolol XL 25 mg nightly. New prescriptions have been sent to your pharmacy. WARE DEVELOPER WARE DEVELOPER WARE DEVELOPER WARE DEVELOPER WARE DEVELOPER WARE DEVELOPER documented in this encounter Ordered Prescriptions Prescription Sig Dispense Quantity Refills Last Filled Start Date End Date metoprolol XL (TOPROL-XL) 25 mg extended release tablet Take 1 tablet (25 mg total) by mouth daily 30 tablet 05/16/2022 05/22/2022 lisinopriL (PRINIVIL,ZESTRIL) 30 mg tablet Take 1 tablet (30 mg total) by mouth daily 30 tablet 05/16/2022 05/22/2022 documented in this encounter Progress Notes * Allan Harris MD - 05/16/2022 10:00 AM CST Images from the original note were not included. [facility] Department of Medicine Cardiovascular Division Tera Torre M.D. [facility] [place] [address], [address] [place] [id number], [email or web address] Date: 11/01/2021 Primary care Physician Martin López MD [address] [place] [address] Patient Name: Nathan Wagner Date of : [...] artery) by Dr. Worley on 06/23/20 Hypertension Post-operative atrial fibrillation, in sinus rhythm since INTERVAL HISTORY: We had the pleasure of seeing Nathan Wagner today [facility] for follow-up of his aortic stenosis and coronary artery disease. As you know, He is a pleasant 76 y.o. male with the above medical history. Since his last visit, he has been doing well. He did go to the ED for palpitations, which resolved before he got there. He said they occurred for several days and he believes that his pulse was irregular. He had no associated symptoms. He has not had palpitations since. He denies chest pain, SOB, lightheadedness, dizziness, orthopnea, and PND. CURRENT MEDICATIONS: Current Outpatient Medications on File Prior to Visit Medication Sig Dispense Refill acetaminophen (TYLENOL) 325 mg tablet Take 2 tablets (650 mg total) by mouth every 4 (four) hours as needed for pain 30 tablet aspirin 81 mg enteric coated tablet Take 81 mg by mouth every morning atorvastatin (LIPITOR) 80 mg tablet Take 1 tablet (80 mg total) by mouth daily (Patient taking differently: Take 80 mg by mouth every morning) 30 tablet 1 lisinopriL (PRINIVIL,ZESTRIL) 20 mg tablet Take 1 tablet (20 mg total) by mouth daily (Patient taking differently: Take 20 mg by mouth every morning) 30 tablet 3 metoprolol tartrate (LOPRESSOR) 25 mg immediate release tablet TAKE 1 TABLET BY MOUTH TWICE A DAY (Patient taking differently: Take 25 mg by mouth 2 (two) times a day) 180 tablet 3 montelukast (SINGULAIR) 10 mg tablet Take 10 mg by mouth nightly travoprost (TRAVATAN Z) 0.004 % drops Administer 1 drop into both eyes nightly No current facility-administered medications on file prior to visit. PHYSICAL EXAMINATION: Vitals: 05/16/22 1002 05/16/22 1004 BP: (!) 197/127 (!) 187/97 BP Location: Right arm Right arm Patient Position: Sitting Sitting Pulse: 61 SpO2: 99% Weight: 83.2 kg (183 lb 8 oz) Height: 175.3 cm (5' 9 ) GENERAL: [...] No lower extremity edema. IMPRESSION AND PLAN: Coronary artery disease: He is doing quite well from a coronary artery disease standpoint is havingno symptoms of angina. He should continue his current medications without change. Aortic stenosis: He is doing well post surgical aortic valve replacement. He should continue his current medications without change Hypertension: We will increase his lisinopril to 30 mg daily and change his metoprolol to succinate, 25 mg daily, per his request. Thank you for allowing us to participate in the care of this patient. We would be happy to see him back in 6 months time or sooner as needed. Please don't hesitate to reach out with any questions or concerns. Allan Harris MD CC: Martin López MD [address] [address] Cosigned by Tera Torre MD at 05/22/2022 9:38 AM SOFTWARE DEVELOPER WARE DEVELOPER WARE DEVELOPER Associated attestation - Tera Torre MD - 05/22/2022 9:38 AM SOFTWARE DEVELOPER I have seen and examined the patient. I agree with the findings and plan of care as documented in the resident/fellow's note. My total encounter time on 05/16/2022 was 30 minutes which was spent in the activities documented in the note. This includes time spent prior to the visit and after the visitin direct care of the patient. This time does not include time spent in any separately reportable services. documented in this encounter Plan of Treatment Not on file documented as of this encounter Visit Diagnoses Diagnosis Hypertension, essential- Primary Unspecified essential hypertension Paroxysmal atrial fibrillation (CMS/HCC) (HCC) Atrial fibrillation documented in this encounter Discontinued Medications Medication Sig Discontinue Reason Start Date End Da te metoprolol tartrate (LOPRESSOR) 25 mg immediate release tablet TAKE 1 TABLET BY MOUTH TWICE A DAY 07/03/2021 05/16/2022 lisinopriL (PRINIVIL,ZESTRIL) 20 mg tablet Take 1 tablet (20 mg total) by mouth daily Reorder 05/25/2021 05/16/2022 documented as of this encounter Care Teams Foil Cutter Relationship Specialty Start Date End Date Martin López MD [address] [address] PCP - General 06/27/12 Khalif Ca MD [address] [facility] [address] [place] [address] Referring Physician Cardiology 04/08/19 Francia Worley MD [address] [address] Surgeon Cardiothoracic Surgery 06/28/20 Tera Torre MD [address] [address] Consulting Physician Cardiology 06/28/20 documented as of this encounter
--- OUTSIDE RECORDS SUMMARY | 2024-04-20 00:13 | XMS_ITS | Encounter Summary ---
Author Organization [facility] Address [address] [place] [address] Phone Care Team Providers Care Android Architect Name Role Phone Martin López MD Primary Care Provider Khalif Ca MD Unavailable [phone] Francia Worley MD Unavailable Tera Torre MD Unavailable [phone] Reason for Visit * Reason Onset Date Comments see enc 09/18/22 09/18/2022 Encounter Details Date Type Department Care Team (Late st Contact Info) Description 09/18/2022 Telephone [facility] Cardiology [address] [facility] 8th [place] [address] [place] [address] Tera Torre MD [address] [place] [address] see enc 09/18/22 Social History Tobacco Use Types Packs/Day Years [...] on file 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 documented in this encounter Plan of Treatment Not on file documented as of this encounter Visit Diagnoses Not on filedocumented in this encounter Care Teams Android Architect Relationship Specialty Start Date End Date Martin López MD [address] [address] PCP - General 06/27/12 Khalif Ca MD [address] [address] Referring Physician Cardiology 04/08/19 Francia Worley MD [address] [address] Surgeon Cardiothoracic Surgery 06/28/20 Tera Torre MD [address] [address] Consulting Physician Cardiology 06/28/20 documented as of this encounter
--- OUTSIDE RECORDS SUMMARY | 2024-04-20 00:13 | XMS_ITS | Encounter Summary ---
Author Organization [facility] Healthcare Address [address] [place] [address] Care Team Providers Care Manager Supply Chain Planning Name Role Phone Martin López MD Primary Care Provider Khalif Ca MD Unavailable [phone] Francia Worley MD Unavailable Tera Torre MD Unavailable [phone] Reason for Visit * Reason Comments Palpitations Encounter Details Date Type Department Care Team (Late st Contact Info) Description 05/04/2022 10:31 AM GLASS ARTIST - 05/04/2022 3:06 PM [facility] Emergency [facility] Emergency Department [address] [address] Kvng Baker MD [address] [place], [place] [id number] Palpitations (Primary Dx) Discharge Disposition: Discharge to home or self [...] on file Legal Sex Male 9:13 PM GLASS ARTIST Gender Identity Male 07/25/2023 3:40 PM CDT Sexual Orientation Straight 10/28/2019 9: 50 AM CDT documented as of this encounter Last Filed Vital Signs Vital Sign Reading Time Taken Comments Blood Pressure 154/92 05/04/2022 2:30 PM GLASS ARTIST Pulse 64 05/04/2022 2:30 PM GLASS ARTIST Temperature 36.7 ??C (98 ??F) 05/04/2022 2:30 PM GLASS ARTIST Respiratory Rate 18 05/04/2022 2:30 PM GLASS ARTIST Oxygen Saturation 97% 05/04/2022 2:30 PM GLASS ARTIST Inhaled Oxygen Concentration - - Weight 81.6 kg (180 lb) 05/04/2022 10:28 AM GLASS ARTIST Height 175.3 cm (5' 9 ) 05/04/2022 10:28 AM GLASS ARTIST Body Mass Index 26.58 05/04/2022 10:28 AM GLASS ARTIST documented in this encounter Discharge Instructions * Discharge Instructions* Kvng Baker MD - 05/04/2022 2:45 PM GLASS ARTIST Please follow up with Dr. Torre regarding your palpitations. Return to the emergency department ifyou have any worsening symptoms S ARTIST * Attachments The following attachments cannot be sent through Care Everywhere. * Heart Palpitations (Building Construction Teacher) (Slovenian) documented in this encounter Medications at Time [...] or self care documented in this encounter ED Notes * Kvng Baker MD - 05/04/2022 2:45 PM CST HPI Chief Complaint Patient presents with Palpitations HPI Patient is a 76-year-old with a history of aortic stenosis status post CABG and aortic valve replacement who presents to emergency department palpitations. There constant ongoing nothing makes betternothing makes worse. No syncope, no hemoptysis, no blood in his stools Patient History: Patient Active Problem List Diagnosis Date Noted Basal cell carcinoma 03/05/2022 Pleural 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 Acute postoperative anemia due to expected blood loss 06/25/2020 Atrial fibrillation (CMS/HCC) (HCC) 06/25/2020 Coronary artery disease without angina pectoris 06/09/2020 Acute GI bleeding 05/11/2020 HLD (hyperlipidemia) 05/11/2020 Hematochezia 05/11/2020 Sinus disease Severe aortic stenosis H pylori ulcer History of blood transfusion Hypertension, essential Aortic valve stenosis 03/01/2015 Past Medical History: Diagnosis Date Basal cell carcinoma Cancer (CMS/HCC) (HCC) Coronary artery disease Diverticulosis GERD (gastroesophageal reflux disease) GI bleed 2014 Glaucoma H pylori ulcer with bleeding in 2014 Heart murmur Hemorrhoid History of blood transfusion 2014 HTN (hypertension) Hyperlipidemia Severe aortic stenosis with a mean gradient 42 mm Hg and EF 55% Sinus disease mild Past Surgical History: Procedure Laterality Date ABDOMINAL SURGERY CARDIAC CATHETERIZATION 2020 CARDIAC SURGERY COLONOSCOPY 2020 HEART SURGERY 2020 MITRAL VALVE REPLACEMENT MOHS SURGERY 2002 BCC behind right ear UPPER GASTROINTESTINAL ENDOSCOPY 2020 Family History Problem Relation Age of Onset Arrhythmia Brother Cancer Mother Hypertension Mother Heart disease Mother Hypertension Brother Heart attack Maternal Grandfather Anesthesia problems Neg Hx Social History Tobacco Use Smoking status: Former Types: Cigarettes Quit date: 1970 Years since quittin.0 Smokeless tobacco: Never Vaping Use Vaping Use: Never used Substance and Sexual Activity Alcohol use: Yes Comment: rare Drug use: Not Currently Sexual activity: Defer Social History Social History Narrative Occasional alcohol use : (Added by TW Conv) Review of Systems Review of Systems Respiratory: Negative for shortness of breath. Cardiovascular: Positive for palpitations. Negative for chest pain and leg swelling. All other systems reviewed and are negative. Physical Exam ED Triage Vitals [05/04/22 1028] Temp Pulse Resp BP SpO2 36.6 ??C (97.8 ??F) 78 18 158/90 99 % Temp src Heart Rate Source Patient Position BP Location FiO2 (%) -- -- -- -- -- Height Height Method Weight Weight Method 1.753 m (5' 9 ) -- 81.6 kg (180 lb) -- Physical Exam Constitutional: General: He is not in acute distress. Appearance: Normal appearance. He is not toxic-appearing. HENT: Head: Atraumatic. Right Ear: External ear normal. Left Ear: External ear normal. Nose: Nose normal. Eyes: Conjunctiva/sclera: Conjunctivae normal. Pupils: Pupils are equal, round, and reactive to light. Cardiovascular: Rate and Rhythm: Normal rate and regular rhythm. Pulses: Normal pulses. Comments: No JVD Pulmonary: Effort: No respiratory distress. Abdominal: General: There is no distension. Palpations: Abdomen is soft. Tenderness: There is no abdominal tenderness. Musculoskeletal: General: No swelling or deformity. Cervical back: Normal range of motion and neck supple. Skin: General: Skin is warm and dry. Capillary Refill: Capillary refill takes less than 2 seconds. Neurological: General: No focal deficit present. Mental Status: He is alert. Mental status is at baseline. Psychiatric: Mood and Affect: Mood normal. Behavior: Behavior normal. [facility] Medical Decision Making Differential diagnosis includes acute coronary syndrome, pulmonary embolism, PVCs, PACs heart failure Ultimately the patient has asymptomatic course here in the emergency department his troponins are negative his BNP is negative and his D-dimer is negative. I think patient is stable for outpatient follow up with his nutrition technician, Dr. Torre messaged in [employer]. Amount and/or Complexity of Data Reviewed External Data Reviewed: notes. Labs: ordered. Decision-making details documented in ED Course. ECG/medicine tests: ordered and independent interpretation performed. Decision- making details documented in ED Course. Risk Decision regarding hospitalization. Risk Details: Moderate risk acute with chronic diseases. ED Course as of 05/04/22 1445 Time: 05/04 102 Comment: From dc summary on 06/28/20: DETAILS OF HOSPITAL STAY Presenting Problem/History of Present Illness: Mr. Nathan Wagner is a 74 year old gentleman with severe, multivessel coronary artery disease and aortic stenosis. A TTE from 04/11/2020 demonstrated normal biventricular function with severe aortic stenosis, mean gradient 51mmHg, peak gradient 83mmHg, LVH, no MR or TR. A LHC on 06/07/2020 demonstrated hemodynamically significant lesions of the LAD, circumflex and PDA. His comorbidities included hypertension, hyperlipidemia, and history of GI bleed (recent diverticular bleed). The patient was admitted for cardiac surgery. Hospital Course: Mr. Wagner was taken to the operating room on 06/23/2020 for Aortic valve replacement (25mm Magna Ease bioprosthetic valve), coronary artery bypass grafting x 3 (radial sequenced to left anterior descending coronary artery and circumflex obtuse marginal branch, saphenous vein graft to the posterior desc ending coronary artery, open harvest of left radial artery, endoscopic harvesting of saphenous veinfrom right lower extremity by Dr. Worley. The patient was taken to the intensive care unit postoperatively in stable condition. When hemodynamically stable, he was weaned from ventilatory and inotropic support. The patient was transferred to the stepdown unit in stable condition on 06/24 . He developed atrial fibrillation which was treated with amiodarone. He ultimately converted to NSR but stillhad bursts of atrial fibrillation (asymptomatic) lasting for approximately an Hour or less. ...Becau se of the persistent brief episodes of AF, he was placed on a 30 day event monitor at discharge. The decision was made not to anticoagulate due to his recent diverticular bleed and history of H Pylori gastrointestinal bleeding. His hemoglobin was stable at discharge. The home health nurses will be monitoring his progress after he returns home. By: Kvng Baker MD Stable discharge Final diagnoses: Palpitations Kvng Baker MD 05/04/22 5742 S ARTIST * Shad Gonsalez RN - 05/04/2022 10:27 AM CST Patient reports that for the last several nights he has had palpitations which have woken him from sleep. He states that he notes his heart rate has been irregular in the 70s-80s. He denies chest pain or shortness of breath. Denies other symptoms. S ARTIST documented in this encounter Miscellaneous Notes * ED Procedure Note - Kvng Baker MD - 05/04/2022 3:06 PM CSTAssociated Order(s): ECG 12 lead Procedure ECG 12 lead Date/Time: 05/04/2022 4:00 PM Performed by: Kvng Baker MD Authorized by: Kvng Baker MD Rate: ECG rate: 71 ECG rate assessment: normal Rhythm: Rhythm: sinus rhythm Ectopy: Ectopy: none QRS: QRS axis: Normal QRS intervals: Wide Conduction: Conduction: abnormal Abnormal conduction: complete RBBB ST segments: ST segments: Normal T waves: T waves: normal Previous ECG: Previous ECG: Compared to current Date of previous EC07/20/2020 Comparison ECG info: Rbbb old Similarity: No change Interpretation: Interpretation: non-specific Recommended Follow-up: Recommended follow up: further workup in the ED Kvng Baker MD 05/04/22 1601 S ARTIST documented in this encounter Plan of Treatment Not on file documented as of this encounter Procedures Procedure Name Priority Date/Time Associated Diagnosis Comments ECG 12-LEAD Routine 05/04/2022 4:00 PM GLASS ARTIST TROPONIN T HIGH-SENSITIVITY STAT 05/04/2022 12:09 PM GLASS ARTIST D-DIMER, QUANTITATIVE STAT 05/04/2022 10:46 AM GLASS ARTIST TROPONIN T HIGH-SENSITIVITY STAT 05/04/2022 10:31 AM GLASS ARTIST EGFR STAT 05/04/2022 10:31 AM GLASS ARTIST DIFFERENTIAL AUTO STAT 05/04/2022 10: 31 AM GLASS ARTIST PRO B-TYPE NATRIURETIC PEPTIDE STAT 05/04/2022 10:31 AM GLASS ARTIST THYROID FUNCTION CASCADE STAT 05/04/2022 10:31 AM GLASS ARTIST CBC WITH AUTO DIFFERENTIAL STAT 05/04/2022 10:31 AM GLASS ARTIST COMPREHENSIVE METABOLIC PANEL STAT 05/04/2022 10:31 AM GLASS ARTIST documented in this encounter Results * ECG 12-LEAD (05/04/2022 4:00 PM GLASS ARTIST) Narrative CONS SCIMAGE - 05/04/2022 4:00 PM GLASS ARTIST Kvng Baker MD ? 05/04/2022 ??4:01 PM ECG 12 lead Date/Time: 05/04/2022 4:00 PM Performed by: Kvng Baker MD Authorized by: Kvng Baker MD Rate: ??ECG rate: ??71 ??ECG rate assessment: normal ?? Rhythm: ??Rhythm: sinus rhythm ?? Ectopy: ??Ectopy: none ?? QRS: ??QRS axis: ??Normal ??QRS intervals: ??Wide Conduction: ??Conduction: abnormal ?Abnormal conduction: complete RBBB ?? ST segments: ??ST segments: ??Normal T waves: ??T waves: normal ?? Previous ECG: ??Previous ECG: ??Compared to current ??Date of previous ECG: ??07/20/2020 ??Comparison ECG info: ??Rbbb old ??Similarity: ??No change Interpretation: ??Interpretation: non-specific ?? Recommended Follow-up: ??Recommended follow up: further workup in the ED ?? Procedure Note Kvng Baker MD - 05/04/2022 3:06 PM CST Procedure ECG 12 lead Date/Time: 05/04/2022 4:00 PM Performed by: Kvng Baker MD Authorized by: Kvng Baker MD Rate: ECG rate: 71 ECG rate assessment: normal Rhythm: Rhythm: sinus rhythm Ectopy: Ectopy: none QRS: QRS axis: Normal QRS intervals: Wide Conduction: Conduction: abnormal Abnormal conduction: complete RBBB ST segments: ST segments: Normal T waves: T waves: normal Previous ECG: Previous ECG: Compared to current Date of previous EC07/20/2020 Comparison ECG info: Rbbb old Similarity: No change Interpretation: Interpretation: non-specific Recommended Follow-up: Recommended follow up: further workup in the ED Kvng Baker MD 05/04/22 1601 Kvng Baker MD ECG ORDERABLES Final Result Performing Organization Address City/[facility] Co de Phone Number CONS SCIMAGE * Troponin T high-sensitivity (05/04/2022 12:09 PM GLASS ARTIST) Trop T hs 16 <=22 ng/L [facility] Comment: Interpretive Data For further hscTnT resources including the diagnostic algorithm and an aid in interpretation, copy and paste this link: https://nrl.testcatalog.org/show/hsTrop Current Interpretive Data last revised 2020. Blood 05/04/2022 12:0 9 PM GLASS ARTIST 05/04/2022 2:21 PM GLASS ARTIST Kvng Baker MD LAB BLOOD ORDERABLES Final Re sult Performing Organization Address [facility] Co de Phone Number [facility] [address] [facility] Department [place] [address] * D-dimer, quantitative (05/04/2022 10:46 AM GLASS ARTIST) D-Dimer 389 <=499 ng/mL FEU [facility] Comment: Interpretive data FDA approved the D-dimer, in conjunction with a low or moderate pretest probability score, to exclude venous thromboembolic events (VTE) (PE and DVT) in outpatients when the D-dimer result is < 500 ng/ml FEU. ?? Evidence supports using an age-adjusted D-dimer cut-off for outpatients older than 50 (age x 10) to improve specificity without sacrificing sensitivity. Example: age 68, VTE cut-off 680 ng/ml FEU. References; Schouten HT et al. Brit Med J. 2013;346:f2492. Kendra et al. Annals Int Med. 2015;163:701-11. Current interpretive data was last revised on 2019. Blood 05/04/2022 10:4 6 AM GLASS ARTIST 05/04/2022 10:52 AM GLASS ARTIST Kvng Baekr MD LAB BLOOD ORDERABLES Final Re sult Performing Organization Address [facility] de Phone Number [facility] [address] [employer] Applications. [facility] [employer] [place] [address] * TSH reflex to free T4 (05/04/2022 10:31 AM GLASS ARTIST) TSH 1.20 0.30 - 4.20 mcIUnit/mL [facility] Blood 05/04/2022 10:3 1 AM GLASS ARTIST 05/04/2022 10:35 AM GLASS ARTIST Kvng Baker MD LAB BLOOD ORDERABLES Final Re sult Performing Organization Address [facility] de Phone Number [facility] [address] [address] [facility] [place] [address] * Pro B-type natriuretic peptide (05/04/2022 10:31 AM GLASS ARTIST) NT-proBNP 240 <=450 pg/mL [facility] Comment: Interpretive Comments: A. Dyspnea in Acute Care Setting All Ages: ?< 300 pg/ml, acute heart failure unlikely. < 50 yrs: ?300 - 450 pg/ml, further investigation warranted. ? > 450 pg/ml, acute heart failure likely. 50 - 74 yrs: ? 300 - 900 pg/ml, further investigation warranted. ? > 900 pg/ml, acute heart failure likely . > or = 75 yrs: ? 450 - 1800 pg/ml, further investigation warranted. ? > 1800 pg/ml, acute heart failure likely. B. Non-acute Setting < 75 yrs ? < 125 pg/ml, rules out heart failure. ? > or = 125 pg/ml, further investigation warranted. > or = 75 yrs ?< 450 pg/ml, rules out heart failure. ? > or = 450 pg/ml, further investigation warranted. - Knowledge of each individual patient's NT-proBNP range may be more useful than using similar cut-points for every patient. Please note that marked elevations in NT-proBNP levels may be observed in state other than Left Ventricular Congestive Failure, including: acute coronary syndromes, right heart strain/failure (including pulmonary embolism and cor pulmonale), critical illness, renal failure, as well as advanced age. - References: 1. Dimple JL et.al. Eur Heart J. 2006:27:330-337. 2. Camila RW, Irina SLADE. J. AM Christiano Cardiol: Cardiovasc Imag. 2009;2: 216- 225. Interpretive Data Last Revised Date: 2017. Blood 05/04/2022 10:3 1 AM GLASS ARTIST 05/04/2022 10:35 AM GLASS ARTIST us Kvng Baker MD LAB BLOOD ORDERABLES Final Re sult [facility] [address] [facility]. Department of [employer] [place] [address] * eGFR (05/04/2022 10:31 AM GLASS ARTIST) eGFR 78 mL/min/1. 73 m2 [facility] Comment: Interpretive Data Reference Interval Normal ?>/= [...] interpretive data was last reviewed 2021. Blood 05/04/2022 10:3 1 AM GLASS ARTIST 05/04/2022 10:35 AM GLASS ARTIST us Kvng Baker MD LAB BLOOD ORDERABLES Final Re sult [facility] [address] [facility]. Department [place] [address] * (ABNORMAL) Differential, auto (05/04/2022 10:31 AM GLASS ARTIST) Neutrophil abs 8.2(H) 1.7 - 6.5 K/cumm [facility] Imm gran abs 0.0 0.0 - 0.1 K/cumm [facility] Lymphocyte abs 0.9 0.8 - 3.3 K/cumm [facility] Monocyte abs 0.9(H) 0.2 - 0.8 K/cumm [facility] Eosinophil abs 0.1 0.0 - 0.5 K/cumm [facility] Basophil abs 0.0 0.0 - 0.1 K/cumm [facility] Neutrophil pct 80.9 % [facility] Comment: Interpretive Data Percent cell count reference ranges are not reported, since discordance with absolute values may lead to misinterpretation of CBC data. Current Interpretive Data was last revised on 2017. Imm gran pct 0.4 % [facility] Comment: Interpretive Data Percent cell count reference ranges are not reported, since discordance with absolute values may lead to misinterpretation of CBC data. Current Interpretive Data was last revised on 2017. Lymphocyte pct 8.6 % [facility] Comment: Interpretive Data Percent cell count reference ranges are not reported, since discordance with absolute values may lead to misinterpretation of CBC data. Current Interpretive Data was last revised on 2017. Monocyte pct 9.0 % [facility] Comment: Interpretive Data Percent cell count reference ranges are not reported, since discordance with absolute values may lead to misinterpretation of CBC data. Current Interpretive Data was last revised on 2017. Eosinophil pct 0.8 % [facility] Comment: Interpretive Data Percent cell count reference ranges are not reported, since discordance with absolute values may lead to misinterpretation of CBC data. Current Interpretive Data was last revised on 2017. Basophil pct 0.3 % [facility] Comment: Interpretive Data Percent cell count reference ranges are not reported, since discordance with absolute values may lead to misinterpretation of CBC data. Current Interpretive Data was last revised on 2017. Blood 05/04/2022 10:3 1 AM GLASS ARTIST 05/04/2022 10:35 AM GLASS ARTIST us Kvng Baker MD LAB BLOOD ORDERABLES Final Re sult [facility] [address] [facility]. Department [place] [address] * Troponin T high-sensitivity (05/04/2022 10:31 AM GLASS ARTIST) Trop T hs 18 <=22 ng/L [facility] Comment: Interpretive Data For further hscTnT resources including the diagnostic algorithm and an aid in interpretation, copy and paste this link: https://nrl.testcatalog.org/show/hsTrop Current Interpretive Data last revised 2020. Blood 05/04/2022 10:3 1 AM GLASS ARTIST 05/04/2022 10:35 AM GLASS ARTIST Kvng Baker MD LAB BLOOD ORDERABLES Final Re sult [facility] [address] [facility]. [place] [address] * Comprehensive metabolic panel (05/04/2022 10:31 AM GLASS ARTIST) Sodium 138 135 - 145 mmol/L [facility] Potassium, pl 3.9 3.3 - 4.9 mmol/L [facility] Chloride 103 97 - 110 mmol/L [facility] CO2 28 22 - 32 mmol/L [facility] Anion gap 7 2 - 15 mmol/L [facility] BUN 15 8 - 25 mg/dL [facility] Creatinine 1.00 0.80 - 1.30 mg/dL [facility] Glucose 96 70 - 199 mg/dL [facility] Comment: Interpretive Data Fasting glucose >/= 126 [...] classification and Diagnosis of Diabetes Diabetes Care 2017;40 (Suppl. 1):S11. Current interpretive data was last revised 2017. Calcium 9.5 8.5 - 10.3 mg/dL [facility] Bilirubin, total 0.9 0.1 - 1.2 mg/dL [facility] Protein, pl 6.6 6.5 - 8.5 g/dL [facility] Albumin 4.2 3.5 - 5.0 g/dL [facility] Alk phos 67 40 - 130 Units/L [facility] ALT 31 7 - 55 Units/L [facility] AST 20 10 - 50 Units/L [facility] Blood 05/04/2022 10:3 1 AM GLASS ARTIST 05/04/2022 10:35 AM GLASS ARTIST Kvng Baker MD LAB BLOOD ORDERABLES Final Re sult Performing Organization Address [facility]/ZIP Co de Phone Number [facility] [address] Adjacent Applications [place] [address] * (ABNORMAL) CBC with auto differential (05/04/2022 10:31 AM GLASS ARTIST) [facility] WBC 10.2(H) 3.8 - 9.9 K/cumm [facility] Hgb 16.4 13.0 - 17.5 g/dL [facility] Hct 48.9 38.9 - 50.3 % [facility] Plt 196 150 - 400 K/cumm [facility] MPV 11.5 9.1 - 12.3 fL [facility] RBC 5.46 4.30 - 5.80 M/cumm [facility] MCV 89.6 81.3 - 96.4 fL [facility] MCH 30.0 27.1 - 33.3 pg [facility] MCHC 33.5 32.3 - 35.7 g/dL [facility] RDW CV 13.8 11.1 - 14.9 % [facility] RDW SD 44.7 35.7 - 48.1 fL [facility] NRBC abs 0.00 0.00 - 0.01 K/cumm [facility] Blood (Blood, Venous) 05/04/2022 10:31 AM GLASS ARTIST 05/04/2022 10:35 AM GLASS ARTIST Kvng Baker MD LAB BLOOD ORDERABLES Final Re sult Performing Organization Address City/[facility]/ZIP Co de Phone Number [facility] [address] [employer]. [place] [address] documented in this encounter Visit Diagnoses Diagnosis Palpitations- Primary documented in this encounter Orders IV Count Last Ordered Date First Orde red Date SALINE LOCK IV 1 05/04/2022 documented in this encounter Care Teams Manager Supply Chain Planning Relationship Specialty Start Date End Date Martin López MD [address] [facility] [address] [place] [address] PCP - General 06/27/12 Khalif Ca MD [address] [address] Referring Physician Cardiology 04/08/19 Francia Worley MD [address] [address] Surgeon Cardiothoracic Surgery 06/28/20 Tera Torre MD [address] [address] Consulting Physician Cardiology 06/28/20 documented as of this encounter
--- OUTSIDE RECORDS SUMMARY | 2024-04-20 00:13 | XMS_ITS | Encounter Summary ---
Author Organization [facility] Healthcare Address [address] [place] [address] Care Team Providers Care [facility] [employer] [facility] Attendant Name Role Phone Martin López MD Primary Care Provider Khalif Ca MD Unavailable [phone] Francia Worley MD Unavailable Tera Torre MD Unavailable Reason for Visit * Auth/Cert (Routine) Specialty Diagnoses / Procedures Referred By Contac t Referred To Contact Diagnoses AFIB Procedures N/A Referral ID Status Reason Start Date Expiration Date Visits Re quested Visits Authorized [id number] 1 1 Encounter Details Date Type Department Care Team (Latest Contact Info) Description 11/19/2022 6:42 PM CDT - 11/22/2022 5:30 PM CDT Hospital Encounter [facility] [address] [place] [address] Tera Torre MD [address] [place] [address] Abigail Kinsey MD [address] [facility] [address] [place] [address] Discharge Disposition: Discharge to home or self [...] on file 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 Gender Identity Male 07/25/2023 3:40 PM CDT Sexual Orientation Straight 10/28/2019 9: 50 AM CDT documented as of this encounter Last Filed Vital Signs Vital Sign Reading Time Taken Comments Blood Pressure 151/85 11/22/2022 3:40 PM CDT Pulse 50 11/22/2022 3:40 PM CDT Temperature 36.3 ??C (97.3 ??F) 11/22/2022 3:40 PM CD T Respiratory Rate 18 11/22/2022 3:40 PM CDT Oxygen Saturation 96% 11/22/2022 3:40 PM CDT Inhaled Oxygen Concentration - - Weight 81.8 kg (180 lb 6.4 oz) 11/22/2022 2:20 A M CDT Height 175.3 cm (5' 9 ) 11/19/2022 6:46 PM CDT Body Mass Index 26.64 11/19/2022 6:46 PM CDT documented in this encounter Discharge Summaries * Fuad Blake MD - 11/22/2022 9:59 AM CDT Inpatient Discharge Summary BRIEF OVERVIEW Admitting Provider: Abigail Thomason MD Discharge Provider: Abigail Thomason MD Primary Care Physician at Discharge: Mratin López MD [phone] Admission Date: 11/19/2022 Discharge Date: 11/23/2022 Admission Location: [facility] Problems/Diagnoses: Principal Problem: Atrial fibrillation with RVR (CMS/HCC) (HCC) Resolved Problems: No resolved hospital problems. Medications changes: -Started sotalol 80mg BID -Increased amlodipine to 5mg daily from 2.5mg daily - STOPPED metoprolol 50mg daily Pt directions: - Follow up with cardiology 7-10 days of discharge. DETAILS OF HOSPITAL STAY Presenting Problem/History of Present Illness: Mr. Wagner is a 76 y.o. male with HTN, CAD s/p CABG and severe s/p bioprosthetic valve that presented with symptomatic paroxysmal atrial fibrillation with RVR. He was directly admitted to the inpatient cardiology service for initiate sotalol in treating his paroxysmal atrial fibrillation. Mr. Wagner first experienced these symptoms at his grandson's eighth grade graduation in August 2022. He started to feel unwell and felt a straining sensation in his throat that would last for a few minutes. This would happen multiple times a day. He denies any chest pain, dyspnea, diaphoresis, or presyncope with these episodes. He went to his production support developer, Dr. Torre for evaluation. He was put on a Holter monitor which confirmed pAF. He was started on Eliquis on 11/14 for anticoagulation for elevated stroke risk ([id number] of 4; 4.8% risk of stroke per year) and was admitted on 11/19 for loading sotalol. Hospital Course: Focused hospital course #pAF with RVR On admission, patient had intermittent paroxysms of atrial fibrillation with elevation of his heartrate up to 160 beats and had an EKG with RBBB with QT interval 394 and QRS duration of 142. EKG calculated QTc was 457, so patient started sotalol morning of 11/20. Tolerated well. EKG checks following sotalol dosing were all showing QTc less than 500. Had five doses with monitoring and was clear to go home afterwards. We discontinued metoprolol XL with his sotalol load. - continue sotalol 80 mg BID - continue apixaban 5 mg BID - received TTE on 11/22 to examine current heart function; follow up as outpatient. #CAD s/p CABG Patient follows with Dr. Torre. Patient reports no chest pain or shortness of breath apart from the symptoms he has from his palpitations. No current concerns for angina or acute ischemia. Free to follow up with production support developer. - continue home atorvastatin - continue home aspirin #HTN Patient's home medications will be started tonight. We increased amlodipine to 5 mg. - amLODIPine, 5 mg daily - lisinopriL, 40 mg, oral daily #Seasonal allergies - continued home montelukast #Remote history of GIB No evidence of bleeding this admission. Monitored with daily CBCs given recent DOAC initiation. Hgbremained stable throughout admission. Active Issues Requiring Follow-up: Afib with RVR (follow-up with production support developer) Other Procedures: TTE, requires outpatient follow-up with production support developer, Dr. Torre Discharge Details Physical Exam at Discharge: Discharge Condition: good Pulse: 50 Resp: 18 BP: 151/85 Temp: 36.3 ??C (97.3 ??F) Weight: 81.8 kg (180 lb 6.4 oz) Pertinent Exam Findings at Discharge: General appearance: no acute distress HEENT: NCAT, MMM, anicteric Lungs: CTAB, no w/r/r, non-labored Heart: systolic murmur auscultated on exam, S1, S2 normal, rub or gallop. JVP not elevated, no LE edema Abdomen: soft, NT/ND; bowel sounds normal Extremities: extremities normal, warm and well-perfused Skin: Warm and dry Neurologic: No abnormal movements, non-focal exam Discharge Disposition: Discharge to home or self care Code Status at Discharge: FULL Discharge Instructions: Follow up with Dr. Torre with cardiology. Activity Instructions Discharge activity: Resume normal activity Diet Instructions Adult Discharge Diet Diet Type: Return to previous diet Other Instructions Call provider for: difficulty breathing or chest pain Call provider for: extreme fatigue Call provider for: persistent dizziness or light-headedness Call provider for: headache, visual disturbances, weakness and speech changes Discharge Medications: Current Medications TAKE these medications acetaminophen 325 mg tablet Take 2 tablets (650 mg total) by mouth every 4 (four) hours as needed for pain Commonly known as: TYLENOL amLODIPine 5 mg tablet Take 1 tablet (5 mg total) by mouth daily Commonly known as: NORVASC apixaban 5 mg tablet Take 1 tablet (5 mg total) by mouth 2 (two) times a day Commonly known as: Eliquis aspirin 81 mg enteric coated tablet Take 1 tablet (81 mg total) by mouth every morning atorvastatin 80 mg tablet Take 1 tablet (80 mg total) by mouth daily Commonly known as: LIPITOR lisinopriL 40 mg tablet Take 1 tablet (40 mg total) by mouth daily Commonly known as: PRINIVIL,ZESTRIL montelukast 10 mg tablet Take 1 tablet (10 mg total) by mouth nightly Commonly known as: SINGULAIR sotaloL 80 mg tablet Take 1 tablet (80 mg total) by mouth 2 (two) times a day Commonly known as: BETAPACE travoprost 0.004 % drops Administer 1 drop into both eyes nightly Commonly known as: TRAVATAN Z Outpatient Follow-Up: Contact Information for Follow-ups Martin óLpez MD Specialty: Family Medicine Relationship: PCP - General [address] [place] [address] Next Steps: Follow up Cosigned by Abigail Kinsey MD at 11/23/2022 1:20 PM CDT documented in this encounter Discharge Instructions * Discharge Instructions* Fuad Blake MD - 11/22/2022 7:44 AM CDT It was a pleasure being a part of your care while you were in the hospital. You were admitted to the hospital for close monitoring while you started a medication called sotalol for your atrial fibrillation (irregular heartbeat). Your EKGs were all within safe parameters for discharge. Medications changes: -take sotalol 80mg twice a day -take amlodipine 5mg daily instead of 2.5mg daily STOP taking: - STOP metoprolol 50mg daily Your other medications are unchanged. If you experience any chest pain, palpitations, shortness or breath, nausea, or vomiting, please return to the hospital or go to your closest emergency room as soon as possible. Please follow up with your production support developer within 7-10 days for follow up on your sotalol regimen and to review results of your TTE. Thanks! documented in this encounter Medications at Time of Discharge acetaminophen (TYLENOL) 325 mg tablet Take 2 tablets (650 mg total) by mouth every 4 (four) hours as needed for pain 30 tablet 06/28/2020 amLODIPine (NORVASC) 5 mg tablet Take 1 tablet (5 mg total) by mouth daily 30 tablet 11/22/2022 aspirin 81 mg enteric coated tablet Take 1 tablet (81 mg total) by mouth every morning atorvastatin (LIPITOR) 80 mg tablet Take 1 tablet (80 mg total) by mouth daily 30 tablet 1 06/28/2020 montelukast (SINGULAIR) 10 mg tablet Take 1 tablet (10 mg total) by mouth nightly 04/02/2016 travoprost (TRAVATAN Z) 0.004 % drops Administer 1 drop into both eyes nightly 03/31/2015 apixaban (Eliquis) 5 mg tablet Take 1 tablet (5 mg total) by mouth 2 (two) times a day 180 tablet 3 11/16/2022 4 lisinopriL (PRINIVIL,ZESTRI L) 40 mg tablet Take 1 tablet (40 mg total) by mouth daily 90 tablet 3 05/22/2022 3 sotaloL (BETAPACE) 80 mg tablet Take 1 tablet (80 mg total) by mouth 2 (two) times a day 60 tablet 11/22/2022 3 documented as of this encounter Ordered Prescriptions Prescription Sig Dispense Quantity Refills Last Filled Start Date End Date amLODIPine (NORVASC) 5 mg tablet Take 1 tablet (5 mg total) by mouth daily 30 tablet 11/22/2022 sotaloL (BETAPACE) 80 mg tablet Take 1 tablet (80 mg total) by mouth 2 (two) times a day 60 tablet 11/22/2022 12/05/2022 documented in this encounter Discharge Disposition Disposition Code Departure Means Destination Comment s Discharge to home or self care documented in this encounter Progress Notes * Sarah Bradley RN - 11/22/2022 4:32 PM CDT Patient being discharged, patient alert and oriented x4, ambulates independently, PIV removed, patient to be transported to hospitality room via wheelchair. Discharge summary reviewed and signed, Allquestions asked and answered. * Fuad Blake MD - 11/22/2022 9:48 AM CDT Cardiology Firm Daily Progress Note Chief complaint: sotalol load Interval History: No acute events overnight. Eating breakfast upon seeing him this morning. No chest pain or shortness of breath. Getting TTE this morning. Objective Vital Signs: 24hr Min/Max: Temp Min: 36.3 ??C (97.3 ??F) Max: 36.6 ??C (97.9 ??F) Pulse Min: 53 Max: 61 BP Min: 115/75 Max: 155/95 Resp Min: 18 Max: 18 SpO2 Min: 96 % Max: 100 % Most Recent: Vitals: 11/22/22 0845 BP: Pulse: 61 Resp: Temp: SpO2: Intake/Output: No intake or output data in the 24 hours ending 11/22/22 0948 Physical Exam: General appearance: no acute distress HEENT: NCAT, MMM, anicteric Lungs: CTAB, no w/r/r, non-labored Heart: systolic murmur auscultated on exam, S1, S2 normal, no murmur, rub or gallop. JVP not elevated, no LE edema Abdomen: soft, NT/ND; bowel sounds normal Extremities: extremities normal, warm and well-perfused Skin: Warm and dry Neurologic: No abnormal movements, non-focal exam Current Medications: Current Facility-Administered Medications: acetaminophen (TYLENOL) tablet 650 mg, 650 mg, oral, Q4H PRN amLODIPine (NORVASC) tablet 5 mg, 5 mg, oral, Daily, 5 mg at 11/21/22 1835 apixaban (ELIQUIS) tablet 5 mg, 5 mg, oral, BID, 5 mg at 11/22/2247 aspirin enteric coated tablet 81 mg, 81 mg, oral, Daily, 81 mg at 11/21/222029 atorvastatin (LIPITOR) tablet 80 mg, 80 mg, oral, Daily, 80 mg at 11/21/221834 lisinopriL (PRINIVIL,ZESTRIL) tablet 40 mg, 40 mg, oral, Daily, 40 mg at 11/21/221834 montelukast (SINGULAIR) tablet 10 mg, 10 mg, oral, Nightly, 10 mg at 11/21/222029 polyethylene glycol (MIRALAX) packet 17 g, 17 g, oral, Daily PRN ramelteon (ROZEREM) tablet 8 mg, 8 mg, oral, Nightly PRN sodium chloride 0.9% flush 0.5-20 mL, 0.5-20 mL, intra-catheter, Q8H LYRIC, 10 mL at 11/21/222030 sodium chloride 0.9% flush 0.5-20 mL, 0.5-20 mL, intra-catheter, PRN sotaloL (BETAPACE) tablet 80 mg, 80 mg, oral, BID, 80 mg at 11/22/22 0849 Lab/Radiology/Diagnostic Review: Labs: Recent Labs Lab Units 11/21/22204111/20/22212011/19/222051 HEMOGLOBIN g/dL 15.0 14.6 14.4 HEMATOCRIT % 42.2 43.1 42.1 WBC K/cumm 7.4 7.6 8.3 PLATELETS K/cumm 188 211 192 Recent Labs Lab Units 11/21/22204111/20/22212011/19/222014 SODIUM mmol/L 142 141 140 POTASSIUM PLASMA mmol/L 3.7 4.4 4.3 CHLORIDE mmol/L 105 104 102 CO2 mmol/L 27 28 27 ANIONGAP mmol/L 10 9 11 BUN SERUM mg/dL 29* 24 26* CREATININE mg/dL 1.42* 1.18 1.34* CALCIUM mg/dL 9.2 9.4 10.1 MAGNESIUM mg/dL 2.3 2.2 1.9 Recent Labs Lab Units 11/19/222014 ALBUMIN g/dL 4.2 ALK PHOS Units/L 68 AST Units/L 25 ALT Units/L 24 BILIRUBIN TOTAL mg/dL 0.8 Recent Labs Lab Units 11/19/222051 APTT sec 31 INR 1.14 Recent Labs Lab Units 11/19/222014 TSH mcIUnit/mL 1.95 EKG on 11/19 at 7:53 PM personally interpreted: Normal sinus rhythm with rate of 81 BPM Right bundle branch block (V1, V2, and V3 morphology with RSR' with QRS at 142 ms) Left atrial enlargement (negative p wave in V1) QT interval 394; QRS duration 142 EKG on 11/22 at 10:42 AM 449 Cultures: No results found for: MICROBIOLOGY Assessment/Plan Mr. Wagner is a 76 y.o. male with HTN, CAD s/p CABG, and severe s/p bioprosthetic valve replacementhere with symptomatic pAF requiring sotalol loading. Patient has been hemodynamically stable and denies any recurrent symptoms. No complications or side effects from sotalol. #pAF with RVR [id number] of 4 ; 4.8% risk of stroke per year. Upon admission, patient had an EKG with QT interval 394; QRS duration 142. EKG uses Bazett formula for QTc at 457. QTc calculated using the [place] and Fredericia formulas are 434 and 435, respectively, which have been found to better estimate QTin medical decision making regarding starting a QT-prolonging medication. Patient on sotalol 80 mg BID while holding pt's metoprolol XL 50 mg. EKG checks two hours after each dose to ensure QT interval does not elongate. If QTc greater than 500 ms, sotalol will be held. Monitored via continuous telemetry. - sotalol 80 mg BID - apixaban 5 mg BID - continuous telemetry with SpO2 monitoring - tolerating well, with serial EKG's taken after each dose (5 total) of Sotalol showing QTc below 500 ms - vitals q 8 hours #KWAME Patient had a bump in his creatinine that is most likely prerenal in etiology. Advising patient to take in more fluids by mouth. BMP this afternoon to evaluate for improvement of creatinine before discharge. #CAD s/p CABG Patient follows with Dr. Torre. Patient reports no chest pain or shortness of breath but does endorse palpitations. No current concerns for angina or acute ischemia. - continue home atorvastatin - continue home aspirin #HTN Continue home medications - amLODIPine, 5 mg daily - lisinopriL, 40 mg, oral daily #Seasonal allergies - continue home montelukast Diet: Adult diet restricted to max 2 g sodium and 2 L fluid intake DVT Prophylaxis: On Eliquis 5 mg b.i.d. Code Status: Full code Family Contact: , Kylah Wagner: [phone] Disposition: Goal discharge date: 11/22/2022 Fuad Blake MD Internal Medicine PGY-1 9:51 AM 11/22/22 Cosigned by Abigail Kinsey MD at 11/22/2022 9:12 PM CDT Associated attestation - Abigail Kinsey MD - 11/22/2022 9:12 PM CDT Attending Documentation I have seen and examined the patient on 11/22/22. I agree with the findings and plan of care as documented in the resident's/fellow's note. Supplementary Attestation Today, I am treating the patient for atrial fibrillation which is in moderate exacerbation, progression, or experiencing treatment side effects as evidenced by admission for sotalol loading, as described in the note. Independently interpreted test ECG which shows RBBB, QTc 449, ok to continue sotalol. The patient is being intensively monitored for drug toxicity from sotalol with ECGs post-dose. Abigail Thomason MD 11/22/2022 9:11 PM * Shlomo Bustos MD - 11/21/2022 7:17 AM CDT Medicine Daily Progress Note Patient Name: Nathan Wagner Today's Date: 11/21/22 Subjective SUBJECTIVE Nathan Wagner is a 76 y.o.-old male with HTN, CAD s/p CABG, and severe s/p bioprosthetic valve replacement who was admitted directly for sotalol loading for treatment of pAF. Reason for admission: Sotalol loading Interval History: -NAOE, AFVSS. Slightly hypertensive since stopping metoprolol. -QTc from PM ECG 483 ms -NSR on tele overnight -Feels well, endorses no acute concerns Main plan for today: -Continue sotalol loading, ECG 2 hours after each dose -Increase amlodipine to 5 mg daily -TTE still pending -Anticipate discharge in AM of 11/23 Objective OBJECTIVE Medications: Scheduled: amLODIPine, 2.5 mg, oral, Daily apixaban, 5 mg, oral, BID aspirin, 81 mg, oral, Daily atorvastatin, 80 mg, oral, Daily lisinopriL, 40 mg, oral, Daily montelukast, 10 mg, oral, Nightly sodium chloride 0.9%, 0.5-20 mL, intra-catheter, Q8H LYRIC sotaloL, 80 mg, oral, BID Infusions: PRN: acetaminophen polyethylene glycol ramelteon sodium chloride 0.9% Vitals: 24hr Min/Max: Temp Min: 36.5 ??C (97.7 ??F) Max: 36.6 ??C (97.9 ??F) Pulse Min: 54 Max: 70 BP Min: 138/77 Max: 156/92 Resp Min: 16 Max: 19 SpO2 Min: 97 % Max: 100 % Most Recent: Vitals: 11/20/22 2320 BP: 138/77 Pulse: 54 Resp: 19 Temp: 36.6 ??C (97.9 ??F) SpO2: 100% Intake/Output Summary (Last 24 hours) at 11/21/2022 0718 Last data filed at 11/20/2022 1750 Gross per 24 hour Intake 600 ml Output -- Net 600 ml Physical Exam: Constitutional: Awake and alert. Well-developed, well-nourished, and in no distress. Neurological: Oriented to person, place, and time; moving all extremities spontaneously. Psychiatric: Appropriate mood and affect. HEENT: Normal conjunctiva, no scleral icterus. Extra-ocular movements intact. Neck: JVP is not displaced. Cardiovascular: S1 and S2 appreciated with regular rate and rhythm. 3/6 early- peaking systolic murmur. PMI nondisplaced. Pulmonary: Normal respiratory effort. Anterior and posterior lung villegas clear to auscultation bilaterally. No wheezes, crackles, or rhonchi. Abdominal: Non-tender, non-distended. No hepatomegaly or splenomegaly. No guarding or rebound present. Musculoskeletal: No lower extremity edema. No obvious joint deformities or effusions. Skin: Skin is warm and dry. No obvious rashes, bruises, or lesions. LABORATORY DATA Lab Results Component Value Date WBC 7.6 11/20/2022 HGB 14.6 11/20/2022 HCT 43.1 11/20/2022 MCV 87.4 11/20/2022 LABPLAT 211 11/20/2022 Lab Results Component Value Date GLUCOSE 88 11/20/2022 CALCIUM 9.4 11/20/2022 SODIUM 141 11/20/2022 POTASSIUM 4.4 11/20/2022 CO2 28 11/20/2022 CHLORIDE 104 11/20/2022 BUNSER 24 11/20/2022 CREATININE 1.18 11/20/2022 Lab Results Component Value Date ALT 24 11/19/2022 AST 25 11/19/2022 ALKPHOS 68 11/19/2022 BILITOT 0.8 11/19/2022 No results found for: IRON, TIBC, FERRITIN Lab Results Component Value Date INR 1.14 11/19/2022 Lab Results Component Value Date HGBA1C 5.6 11/19/2022 Lab Results Component Value Date TSH 1.95 11/19/2022 Lab Results Component Value Date SPECGRAVU 1.019 06/17/2020 BLOODUR Negative 06/17/2020 LEUKESTUR Negative 06/17/2020 No results found for: CKTOTAL, CKMB, CKMBINDEX, TROPONINI No results found for: CHOL No results found for: HDL No results found for: LDLCALC, CLDL, HIRISKLDL, LDL, LDLC, LDLDIRECT, LDLMED, LDLP, POCLDL, SCRLDL,SMALLLDLP, TOTLDLC No results found for: TRIG No components found for: 25OHVITD Radiology/Diagnostic Review: 48 HR Holter Monitor Images from the original result were not included. AMBULATORY FREIGHT CALLER REPORT Patient Name: Nathan Wagner Date of : 1945 Requesting Physician: Martin López M.D. Date of interpretation: 10/26/22 Type of monitor : 48 Hour Holter Monitor Date of the study/Enrollment period: 10/17/2022 to 10/18/2022 Indication: Palpitations Quality of the study: Adequate. Total analysis time of 1 day, 8 hours, and 53 minutes. Interpretation: Predominant rhythm is sinus rhythm with an average heart rate of 59bpm. The minimum heart rate was 45bpm (sinus bradycardia), and the maximum heart rate was 158bpm (atrial fibrillation with RVR). Atrial fibrillation is present with a burden of 0.44%. Longest event of atrial fibrillation lasted for 8 minutes and 26 seconds. Highest ventricular rate during atrial fibrillation at 158bpm. PAC burden of 0.23%. There were 27 episodes of SVT. Longest episode 6 beats, with the fastest episode at 111bpm. PVC burden of 0.54%. No evidence of pauses, heart blocks, or ventricular tachycardia. Patient did not report any symptoms. Conclusions: Predominant rhythm is sinus rhythm with an average heart rate of 59bpm. Atrial fibrillation is present with a burden of 0.44%. Longest event of atrial fibrillation lasted for 8 minutes and 26 seconds. Highest ventricular rate during atrial fibrillation at 158bpm. There were 27 episodes of SVT. Longest episode 6 beats, with the fastest episode at 111bpm. Patient did not report any symptoms. Nataliia Machado M.D., [facility] 10/26/22 Voice recognition software was used to complete this document, therefore, clinic md associate variances may occur. Assessment/Plan ASSESSMENT and PLAN Nathan Wagner is a 76 y.o.-old male with HTN, CAD s/p CABG, and severe s/p bioprosthetic valve replacement who was admitted directly for sotalol loading for treatment of pAF. #pAF with RVR [id number] of 4 ; 4.8% risk of stroke per year. Upon admission, patient had an EKG with QT interval 394; QRS duration 142. EKG uses Bazett formula for QTc at 457 with RBBB. QTc calculated using the[place] and Fredericia formulas are 434 and 435, respectively, which have been found to better estimate QTc. Discussed with outpatient production support developer Dr. Torre, who recommended sotalol 80 mg BID while holding pt's metoprolol XL 50 mg. EKG checks two hours after each dose to ensure QT interval does not elongate. If QTc greater than 500 ms, sotalol will be held. Monitored via continuous telemetry - starting sotalol 80 mg BID. Will complete 6 doses on evening of 11/22. Anticipate discharge early 11/23. - stopping metoprolol XL 50 mg - apixaban 5 mg BID - continuous telemetry with SpO2 monitoring - vitals q 8 hours #CAD s/p CABG Patient follows with Dr. Torre. Patient reports no chest pain or shortness of breath but does endorse palpitations. No current concerns for angina or acute ischemia. - continue home atorvastatin - continue home aspirin #HTN Continue home medications - Increase amlodipine to 5 mg daily - lisinopriL, 40 mg, oral daily #Seasonal allergies - continue home montelukast Code Status: Full Code DVT Prophylaxis: Eliquis Nutrition: Cardiac Glycemic control: Euglycemic Dispo: Cardiology firm Attending MD to make comment on patient risk/complexity. Shlomo Bustos MD Internal Medicine, PGY-2 Cosigned by Abigail Kinsey MD at 11/21/2022 10:14 PM CDT Associated attestation - Abigail Kinsey MD - 11/21/2022 10:14 PM CDT Attending Documentation I have seen and examined the patient on 11/21/22. I agree with the findings and plan of care as documented in the resident's/fellow's note. Supplementary Attestation Today, I am treating the patient for atrial fibrillation which is in moderate exacerbation, progression, or experiencing treatment side effects as evidenced by need for sotalol load, as described in the note. Independently interpreted test ECG which shows RBBB, QTc 483ms, ok to continue sotalol load. The patient is being intensively monitored for drug toxicity from sotalol with frequent ECGs, telemetry. Abigail Thomason MD 11/21/2022 10:13 PM * Fuad Blake MD - 11/20/2022 4:22 PM CDT Cardiology Firm Daily Progress Note Chief complaint: sotalol load Interval History: No acute events overnight. Patient denies shortness of breath or chest pain. Objective Vital Signs: 24hr Min/Max: Temp Min: 36.3 ??C (97.3 ??F) Max: 36.9 ??C (98.4 ??F) Pulse Min: 59 Max: 158 BP Min: 141/103 Max: 162/92 Resp Min: 16 Max: 18 SpO2 Min: 98 % Max: 100 % Most Recent: Vitals: 11/20/22 1509 BP: 156/92 Pulse: 59 Resp: 16 Temp: 36.6 ??C (97.9 ??F) SpO2: 100% Intake/Output: Intake/Output Summary (Last 24 hours) at 11/20/2022 1622 Last data filed at 11/20/2022 0935 Gross per 24 hour Intake 790 ml Output 0 ml Net 790 ml Physical Exam: General appearance: no acute distress HEENT: NCAT, MMM, anicteric Lungs: CTAB, no w/r/r, non-labored Heart: systolic murmur auscultated on exam, S1, S2 normal, no murmur, rub or gallop. JVP not elevated, no LE edema Abdomen: soft, NT/ND; bowel sounds normal Extremities: extremities normal, warm and well-perfused Skin: Warm and dry Neurologic: No abnormal movements, non-focal exam Current Medications: Current Facility-Administered Medications: acetaminophen (TYLENOL) tablet 650 mg, 650 mg, oral, Q4H PRN amLODIPine (NORVASC) tablet 2.5 mg, 2.5 mg, oral, Daily, 2.5 mg at 11/19/222130 apixaban (ELIQUIS) tablet 5 mg, 5 mg, oral, BID, 5 mg at 11/20/22 0815 aspirin enteric coated tablet 81 mg, 81 mg, oral, Daily, 81 mg at 11/20/22 1216 atorvastatin (LIPITOR) tablet 80 mg, 80 mg, oral, Daily, 80 mg at 11/19/222130 lisinopriL (PRINIVIL,ZESTRIL) tablet 40 mg, 40 mg, oral, Daily, 40 mg at 11/19/222130 montelukast (SINGULAIR) tablet 10 mg, 10 mg, oral, Nightly, 10 mg at 11/19/222130 polyethylene glycol (MIRALAX) packet 17 g, 17 g, oral, Daily PRN ramelteon (ROZEREM) tablet 8 mg, 8 mg, oral, Nightly PRN sodium chloride 0.9% flush 0.5-20 mL, 0.5-20 mL, intra-catheter, Q8H LYRIC, 10 mL at 11/20/22 0639 sodium chloride 0.9% flush 0.5-20 mL, 0.5-20 mL, intra-catheter, PRN sotaloL (BETAPACE) tablet 80 mg, 80 mg, oral, BID, 80 mg at 11/20/22 0927 Lab/Radiology/Diagnostic Review: Labs: Recent Labs Lab Units 11/19/222051 HEMOGLOBIN g/dL 14.4 HEMATOCRIT % 42.1 WBC K/cumm 8.3 PLATELETS K/cumm 192 Recent Labs Lab Units 11/19/222014 SODIUM mmol/L 140 POTASSIUM PLASMA mmol/L 4.3 CHLORIDE mmol/L 102 CO2 mmol/L 27 ANIONGAP mmol/L 11 BUN SERUM mg/dL 26* CREATININE mg/dL 1.34* CALCIUM mg/dL 10.1 MAGNESIUM mg/dL 1.9 Recent Labs Lab Units 11/19/222014 ALBUMIN g/dL 4.2 ALK PHOS Units/L 68 AST Units/L 25 ALT Units/L 24 BILIRUBIN TOTAL mg/dL 0.8 Recent Labs Lab Units 11/19/222051 APTT sec 31 INR 1.14 Recent Labs Lab Units 11/19/222014 TSH mcIUnit/mL 1.95 EKG on 11/19 at 7:53 PM personally interpreted: Normal sinus rhythm with rate of 81 BPM Right bundle branch block (V1, V2, and V3 morphology with RSR' with QRS at 142 ms) Left atrial enlargement (negative p wave in V1) QT interval 394; QRS duration 142 Cultures: No results found for: MICROBIOLOGY Assessment/Plan Mr. Wagner is a 76 y.o. male with HTN, CAD s/p CABG, and severe s/p bioprosthetic valve replacementhere with symptomatic pAF requiring sotalol loading. #pAF with RVR [id number] of 4 ; 4.8% risk of stroke per year. Upon admission, patient had an EKG with QT interval 394; QRS duration 142. EKG uses Bazett formula for QTc at 457. QTc calculated using the [place] and [place]eric[place] formulas are 434 and 435, respectively, which have been found to better estimate QTc. Adonay Contreras, Kim Ruiz, Jorge Alberto Staley, Orly Mcmillan, Davin Rodriguez, Sonali Perez, Orly Vivar, and Antonino Swanson. Which QT correction formulae to use for QT monitoring?. Journal ofthe [place] [employer] Association 5, no. 6 (2016): [id number]. I spoke to Dr. Torre this AM, and he recommended starting sotalol 80 mg BID while holding pt's metoprolol XL 50 mg. EKG checks two hours after each dose to ensure QT interval does not elongate. If QTc greater than 500 ms, sotalol will be held. Monitored via continuous telemetry - starting sotalol 80 mg BID - stopping metoprolol XL 50 mg - apixaban 5 mg BID - continuous telemetry with SpO2 monitoring - vitals q 8 hours #CAD s/p CABG Patient follows with Dr. Torre. Patient reports no chest pain or shortness of breath but does endorse palpitations. No current concerns for angina or acute ischemia. - continue home atorvastatin - continue home aspirin #HTN Continue home medications - amLODIPine, 2.5 mg daily - lisinopriL, 40 mg, oral daily #Seasonal allergies - continue home montelukast Diet: Adult diet restricted to max 2 g sodium and 2 L fluid intake DVT Prophylaxis: On Eliquis 5 mg b.i.d. Code Status: Full code Family Contact: Kylah: [phone] Disposition: Inpatient Cardiology Firm Team Blue Fuad Blake MD Internal Medicine PGY-1 6:55 PM 11/20/2022 Cosigned by Abigail Kinsey MD at 11/20/2022 9:12 PM CDT Associated attestation - Li Thomason Abigail Crabtree MD - 11/20/2022 9:12 PM CDT Attending Documentation I have seen and examined the patient on 11/20/22. I agree with the findings and plan of care as documented in the resident's/fellow's note. Supplementary Attestation Today, I am treating the patient for atrial fibrillation which is in severe exacerbation, progression, or experiencing treatment side effects as evidenced by ongoing paroxsymal AF, symptomatic, as described in the note. Independently interpreted test ECG which shows RBBB, QTC <450 after first sotalol dose. The patient is being intensively monitored for drug toxicity from sotalol with ECGs after doses until steady state. Abigail Thomason MD 11/20/2022 9:11 PM documented in this encounter H&P Notes * Fuad Blake MD - 11/19/2022 6:47 PM CDT Cardiology History and Physical - Cardiology Firm Patient Name: Nathan Wagner : 1945 Date of Service: 11/19/22 Chief Complaint: sotalol load HPI Nathan Wagner is a 76 y.o. male with HTN, severe aortic stenosis s/p bioprosthetic AVR with a mean gradient 42 mm Hg and EF of 55%, and CAD with severe multivessel disease s/p CABG (left radial sequenced to LAD and circumflex/obtuse marginal branch with saphenous vein graft to PDA). He presents with paroxysmal atrial fibrillation with rapid ventricular response here for starting sotalol. Mr. Wagner first experienced these symptoms at his grandson's eighth grade graduation in August 2022. He started to feel unwell and felt a straining sensation in his throat that would last for a few minutes. This would happen multiple times a day. He denies any chest pain, dyspnea, diaphoresis, or presyncope with these episodes. He called his production support developer, Dr. Torre, who recommended him to wear a Holter monitor. He was found to have pAF with RVR. After visiting Dr. Torre in clinic, rhythm control options were discussed, and patient was amenable to starting sotalol in the hospital. Patient was then started on apixaban for anticoagulation. Upon encountering patient in his hospital room, he endorsed feeling paroxysms several times in the day. He denies any chest pain, shortness a breath, diaphoresis. He states he feels nervous when these paroxysms occur. He feels ready to start his sotalol loading tonight. Review of Systems: Review of systems as per HPI and, otherwise all other systems are negative. PMHX: has a past medical history of Basal cell carcinoma, Cancer (CMS/HCC) (HCC), Coronary artery disease, Diverticulosis, GERD (gastroesophageal reflux disease), GI bleed (2014), Glaucoma, H pylori ulcer, Heart murmur, Hemorrhoid, History of blood transfusion (2014), HTN (hypertension), Hyperlipidemia, Severe aortic stenosis, and Sinus disease. PSHX: has a past surgical history that includes Cardiac catheterization (2019); Colonoscopy (2019);Upper gastrointestinal endoscopy (2019); Mohs Surgery (2001); Heart Surgery (2019); Abdominal surgery; Cardiac surgery; Mitral valve replacement; and Vascular surgery. Family Hx: family history includes Arrhythmia in his brother; Cancer in his mother; Heart attack inhis maternal grandfather; Heart disease in his mother; Hypertension in his brother and mother. Social Hx: Mr. Wagner has a remote history of smoking tobacco socially in his early adult years. He denies the use of illegal drugs, he drinks a beer every 6 months. 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. Per chart review, patient had stated that he was exposed to asbestos. Patient also says he worked in the [employer], serving under Nain Casas,Nela Vides and Antonio Aragon. Allergies: No Known Allergies Home Medications: HOME MEDICATIONS : acetaminophen (TYLENOL) 325 mg tablet amLODIPine (NORVASC) 2.5 mg tablet apixaban (Eliquis) 5 mg tablet aspirin 81 mg enteric coated tablet atorvastatin (LIPITOR) 80 mg tablet lisinopriL (PRINIVIL,ZESTRIL) 40 mg tablet metoprolol XL (TOPROL-XL) 50 mg extended release tablet montelukast (SINGULAIR) 10 mg tablet travoprost (TRAVATAN Z) 0.004 % drops Current Medications: amLODIPine, 2.5 mg, oral, Daily apixaban, 5 mg, oral, BID aspirin, 81 mg, oral, QAM atorvastatin, 80 mg, oral, Daily lisinopriL, 40 mg, oral, Daily metoprolol XL, 50 mg, oral, Daily montelukast, 10 mg, oral, Nightly sodium chloride 0.9%, 0.5-20 mL, intra-catheter, Q8H LYRIC Objective Vital Signs: 24hr Min/Max: Temp Min: 36.3 ??C (97.3 ??F) Max: 36.3 ??C (97.3 ??F) Pulse Min: 158 Max: 158 BP Min: 141/103 Max: 141/103 Resp Min: 18 Max: 18 SpO2 Min: 99 % Max: 99 % Most Recent: Vitals: 11/19/22 1846 BP: (!) 141/103 Pulse: (!) 158 Resp: 18 Temp: 36.3 ??C (97.3 ??F) SpO2: 99% Intake/Output: No intake or output data in the 24 hours ending 11/19/222053 Physical Exam: General appearance: Well dressed elderly gentleman sitting up in chair, in no acute distress HEENT: Normocephalic atraumatic, mucous membranes moist, extraocular movements intact Lungs: Normal work of breathing, clear to auscultation bilaterally in anterior and upper posterior lung villegas. Significantly decreased breath sounds in lower right lung field as compared to left. Heart: Initially, patient had a regular rate and rhythm upon auscultation to his mitral area duringcardiac exam, then patient went into paroxysms during exam with an irregularly irregular rate and rhythm on exam with a HR up to 160 bpm. No murmurs, rubs, gallops appreciated, no lower extremity edema, without elevated JVP, 2+ bilateral popliteal pulses, left radial pulse is absent, evidence of radial graft excisions surgical scar on dorsal surface of the left arm, right arm with 2+ radial pulse. No carotid bruits auscultated on exam. Abdomen: Abdomen soft and nontender and did not appear distended Extremities: extremities normal, warm and well-perfused, equal pulses, except as noted above with left arm. Skin: Visible skin above his neck, bilateral upper and lower extremities without lesions, are warm and dry Neurologic: Alert and oriented to person, time, place, and situation. No abnormal movements, non-focal exam Psych: Normal mood and affect, Lab/Radiology/Diagnostic Review: Labs: Last cath by [facility] 06/07/2020: THERAPEUTIC RECOMMENDATIONS: Patient has severe ischemia in all 3 coronary vessels. They would be amenable to PCI however the most likely would involve the left main. Given that he is low risk, has severe high gradient aortic stenosis, I would recommend surgical aortic valve replacement with a three-vessel coronary artery bypass grafting. He should have the LAD his obtuse marginal and his PDA bypass. Last echo in : LV EF: 80 % (Normal: >=52%) LV Septum: 1.5 cm (Normal: <1.0 cm) s/p aortic valve replacement with bioprosthesis, 25 mm Magna Ease, on 06/23/2020, plus CABG, wih excellent results; Physiologic mean and peak pressure gradients and effective valve orifice area. No AR seen; LV cavity size is normal. Hyperdynamic LV Ejection Fraction. Low-Normal global LV Myocardial longitudinal function and LV strain pattern. Normal pericardium without pericardial effusion. Previous studies showed severe pre-op. Confirmed on 07/20/2020 - 14:40:45 by Kyle Maya MD Cultures: No results found for: MICROBIOLOGY Assessment/Plan Mr. Wagner is a 76 y.o. male with HTN, CAD s/p CABG, severe s/p bioprosthetic valve, and with newlydiagnosed paroxysmal atrial fibrillation with rapid ventricular response that started within the last several months. He is admitted for starting sotalol. #pAF with RVR Patient's exam revealed paroxysms of irregular heartbeats at an elevated rate that is most consistent with paroxysmal atrial fibrillation with rapid ventricular response. Patient was started on apixaban on November 14 after visiting outpatient production support developer for atrial fibrillation ([id number] of 4; 4 .8% risk of stroke per year). On arrival, patient had an EKG of 457. Sotalol was held this evening due to concern for contraindications to start sotalol in patients with QTc > 450 on EEG Electrophysiology will be consulted in the morning for further guidance on rhythm control options for Mr. Wagner. - Electrophysiology consulted a.m. - TSH, lipid panel, B12, CMP, CBC with auto differential ordered and pending - ordered TTE to examine current heart function - apixaban, 5 mg, oral, BID - metoprolol XL, 50 mg daily - continuous telemetry with SpO2 monitoring - vitals q.6 hours #CAD s/p CABG Patient follows with Dr. Torre. Patient reports no chest pain or shortness of breath apart from the symptoms he has from his palpitations. No current concerns for angina or acute ischemia. - continue home atorvastatin - continue home aspirin #HTN Patient's home medications will be started tonight. - amLODIPine, 2.5 mg daily - metoprolol XL daily - lisinopriL, 40 mg, oral daily #Seasonal allergies - continue home montelukast Diet: Adult diet restricted to max 2 g sodium and 2 L fluid intake DVT Prophylaxis: On Eliquis 5 mg b.i.d. Code Status: Full code Family Contact: , Kylah Wagner: [phone] Disposition: Inpatient Cardiology Firm Team Blue Fuad Blake MD Internal Medicine PGY-1 8:54 PM 11/19/22 Addendum on 4:20 PM 11/20/22 with corrections related to using mobile dictation software Cosigned by Abigail Kinsey MD at 11/20/2022 9:10 PM CDT Associated attestation - Abigail Kinsey MD - 11/20/2022 9:10 PM CDT Attending Documentation I have seen and examined the patient on 11/19/2022. I agree with the findings and plan of care as documented in the resident's/fellow's note. Briefly, 76 M with s/p bioprosthetic AVR and CAD s/p CABG presenting with paroxysmal AF. Used ned rare but now having them most days and often multiple times a day. Mild /sclerosis murmur on exam, euvolemic. Plan for sotalol initiation, obtain TTE. Supplementary Attestation Today, I am treating the patient for paroxysmal atrial fibrillation which is in severe exacerbation, progression, or experiencing treatment side effects as evidenced by intermittent HR to 160s, as described in the note. Independently interpreted test ECG which shows QTc 457 prior to starting sotalol, corrects to [id number] accounting for RBBB which is old. The patient is being intensively monitored for drug toxicity from sotalol with ECGs after each doseuntil steady state reached. Abigail Thomason MD 11/20/2022 9:07 PM documented in this encounter Nursing Notes * Sraah Bradley RN - 11/21/2022 5:36 PM CDT Patient concerned about increase of BP med amlodipine, Satinder Gu Notified and addressed question. MD to discuss changes to med at tomorrow's rounds. documented in this encounter Miscellaneous Notes * Initial Assessments - Zoe Patterson RN - 11/22/2022 3:59 PM CDT 11/22/22 1559 Discharge Summary Chart reviewed For Medical Necessity Does patient have a planned readmission to hospital planned? No Discharge Disposition Private residence Equipment/Provider Needs No Home Needs Identified Discharge Additional Assistance Does the patient need discharge transport arranged? No Per medical team, patient is medically stable for discharge at this time. Follow up appointment hasbeen scheduled for 11/27 @ 11:30. Transportation will be provided by family. Patient and/or family are agreeable with the plan. If any further discharge needs arise, please contact the covering family independence case manager. * Initial Assessments - Zoe Patterson RN - 11/22/2022 3:58 PM CDT 11/22/22 1558 Communications Important Message from Medicare notice given to patient? Yes [place] letter given? Not Applicable Patient choice (Home Health/Hospice) list given to patient/accounting representative? Not Applicable Alf Facility list given to patient/accounting representative? Not Applicable Patient declined copy of IMM notice. * Plan of Care - Sarah Bradley RN - 11/22/2022 11:48 AM CDT Problem: Health Behavior: Goal: Understanding of discharge needs will improve Outcome: Progressing Problem: Activity: Goal: Ability to tolerate increased activity will improve Outcome: Progressing Goal: Ability to participate in self-care as condition permits will improve Outcome: Progressing Problem: Cardiac: Goal: Ability to maintain an adequate cardiac output will improve Outcome: Progressing Goal: Will show no evidence of cardiac arrhythmias Outcome: Progressing Goal: Complications related to the disease process, condition or treatment will be avoided or minimized Outcome: Progressing Problem: Lack of Knowledge: Goal: Knowledge of disease or condition will improve Outcome: Progressing Goal: Knowledge of the prescribed therapeutic regimen will improve Outcome: Progressing Goal: Ability to identify and utilize available resources and services will improve Outcome: Progressing Problem: Coping: Goal: Level of anxiety will decrease Outcome: Progressing Problem: Safety: Goal: Ability to remain free from injury will improve Outcome: Progressing Goal: Will show no signs and symptoms of excessive bleeding Outcome: Progressing Goals: ECHO still pending, Clinical Goals for the Shift: Positive ECHO results Summary: Patient is alert and oriented and ambulating halls.Eagerly awaiting ECHO. 1437- Patient transported off unit for procedure. * Plan of Care - Imani Santos RN - 11/21/2022 11:12 PM CDT Goals: Clinical Goals for the Shift: monitor heart rate; maintain stable vital signs Summary: Patient remains in sinus bradycardia. Vital signs are stable and ECG has been obtained twohours after sotalol dose per order. MD and RN monitoring. Problem: Health Behavior: Goal: Understanding of discharge needs will improve Outcome: Progressing Problem: Activity: Goal: Ability to tolerate increased activity will improve Outcome: Progressing Goal: Ability to participate in self-care as condition permits will improve Outcome: Progressing Problem: Cardiac: Goal: Ability to maintain an adequate cardiac output will improve Outcome: Progressing Goal: Will show no evidence of cardiac arrhythmias Outcome: Progressing Goal: Complications related to the disease process, condition or treatment will be avoided or minimized Outcome: Progressing Problem: Lack of Knowledge: Goal: Knowledge of disease or condition will improve Outcome: Progressing Goal: Knowledge of the prescribed therapeutic regimen will improve Outcome: Progressing Goal: Ability to identify and utilize available resources and services will improve Outcome: Progressing Problem: Coping: Goal: Level of anxiety will decrease Outcome: Progressing Problem: Safety: Goal: Ability to remain free from injury will improve Outcome: Progressing Goal: Will show no signs and symptoms of excessive bleeding Outcome: Progressing * Plan of Care - Sarah Bradley RN - 11/21/2022 10:36 AM CDT Problem: Health Behavior: Goal: Understanding of discharge needs will improve Outcome: Progressing Problem: Activity: Goal: Ability to tolerate increased activity will improve Outcome: Progressing Goal: Ability to participate in self-care as condition permits will improve Outcome: Progressing Problem: Cardiac: Goal: Ability to maintain an adequate cardiac output will improve Outcome: Progressing Goal: Will show no evidence of cardiac arrhythmias Outcome: Progressing Goal: Complications related to the disease process, condition or treatment will be avoided or minimized Outcome: Progressing Problem: Lack of Knowledge: Goal: Knowledge of disease or condition will improve Outcome: Progressing Goal: Knowledge of the prescribed therapeutic regimen will improve Outcome: Progressing Goal: Ability to identify and utilize available resources and services will improve Outcome: Progressing Problem: Coping: Goal: Level of anxiety will decrease Outcome: Progressing Problem: Safety: Goal: Ability to remain free from injury will improve Outcome: Progressing Goal: Will show no signs and symptoms of excessive bleeding Outcome: Progressing Goals: Goal of Qtc range progressing Clinical Goals for the Shift: Maintain Qtc within range Summary: Patient alert and oriented x4 resting in bed, compliant and cheerful * Plan of Care - Imani Santos RN - 11/20/2022 10:24 PM CDT Goals: Clinical Goals for the Shift: maintain stable vital signs; tolerate sotalol; monitor heart rate Summary: Patient is maintaining stable vital signs. He is tolerating sotalol with no complications and running sinus bradycardia on monitor. MD aware. Problem: Health Behavior: Goal: Understanding of discharge needs will improve Outcome: Progressing Problem: Activity: Goal: Ability to tolerate increased activity will improve Outcome: Progressing Goal: Ability to participate in self-care as condition permits will improve Outcome: Progressing Problem: Cardiac: Goal: Ability to maintain an adequate cardiac output will improve Outcome: Progressing Goal: Will show no evidence of cardiac arrhythmias Outcome: Progressing Goal: Complications related to the disease process, condition or treatment will be avoided or minimized Outcome: Progressing Problem: Lack of Knowledge: Goal: Knowledge of disease or condition will improve Outcome: Progressing Goal: Knowledge of the prescribed therapeutic regimen will improve Outcome: Progressing Goal: Ability to identify and utilize available resources and services will improve Outcome: Progressing Problem: Coping: Goal: Level of anxiety will decrease Outcome: Progressing Problem: Safety: Goal: Ability to remain free from injury will improve Outcome: Progressing Goal: Will show no signs and symptoms of excessive bleeding Outcome: Progressing * Initial Assessments - Zoe Patterson RN - 11/20/2022 4:14 PM CDT CM Initial Assessment Interview Note Information Obtained From: Patient (At bedside) (11/20/221612) Admission Source: Home Impression: 76 y.o. male with HTN and a severe aortic stenosis s/p bioprosthetic AVR with a mean gradient 42 mm Hg and EF of 55%, and CAD with severe multivessel disease s/p CABG with paroxysmal atrial fibrillation with rapid ventricular response via Holter monitor in August 2022 who presents for inpatient sotalol initiation. Plan Includes: Safe discharge plan when medically ready Primary Source of Transportation: Does the patient need discharge transport arranged?: No (Family to provide transportation) (11/20/221612) Health Insurance Coverage: Medicare Part A; BCBS Prescription Coverage: Yes Pharmacy: verified with patient [facility] [id number] IN [place], [place] - [address] [address] [facility] [address] [facility] - [facility] AT Portal to Registered [facility] Sites [facility] [address] Primary Care Provider: Martin López MD - verified with patient Prior to Admission: Functional Status: Independent with ADLs Primary Caregiver: Self Support System: Spouse/Significant Other Support system contact info (name, phone, availablity): Josi Wagner (Spouse) Home Care Services: No Durable Medical Equipment: None Living Arrangements: Spouse/significant other Type of Residence: Private residence Steps in home?: Yes, Outside of home, Yes, Inside home Number of steps inside: 30 steps Number of steps outside: 2 steps Medication management: Independent (11/20/221612) Potential discharge needs include: Home Health: None (11/20/221612) Dialysis: No Behavioral Health Services: Behavioral Health Services: No (11/20/221612) Patient expects to be Discharged to: Private residence, (11/20/221612) Additional Information: Demographics and emergency contacts verified with patient at bedside. Patient lives in a house with his . Family to provide transportation. Patient is a but does not have VA benefits. Patient's Identified Problem/Goal Problem: Ensure acute medical needs are met and that patient has a safe discharge plan. Goal: Secure a discharge plan that patient/family are agreeable with and ensure patient has continuum of care. Case management will follow for discharge planning and send referrals as needed. Goals include: To assure continuity of care, To maximize coping skills, To assure patient is in a safe environment and To assure access to community resources. Plan includes: 1. Collaboration with patient, MD, direct care nurse, Fashion Director, and other members of the health care team to assure needed interventions completed. 2. Return patient to optimal level of self-care post discharge. 3. Superintendent Logging will follow for Discharge Planning - interventions as needed 4. Anticipated level of care at discharge 5. Planned Discharge Disposition Based on a comprehensive family assessment, assistance with instrumental activities of daily livingafter discharge will be provided by patient. Through the course of our work I determined that the patient possesses the skill and ability to provide and monitor the care of the patient when he or she returns home. Patient has the capacity to provide/monitor/arrange for the care of the patient. Finally, we determined that patient has the knowledge of available resources and that combining them with their existing resources will suffice to sustain and care for the patient when he or she returns home. The treatment team is aware of this information. All are in agreement with the aftercare plan. Zoe Patterson RN * Plan of Care - Pat Hi RN - 11/20/2022 9:32 AM CDT Goals: Clinical Goals for the Shift: [place] to unit, stable VS, possible sotalol load, monitor heart rhythm Summary: Pt verbalized understanding and is participating in plan. Will continue to monitor. Problem: Health Behavior: Goal: Understanding of discharge needs will improve Outcome: Progressing * Hospital Course - Fuad Blake MD - 11/20/2022 8:45 AM CDT Focused hospital course #pAF with RVR On admission, patient had intermittent paroxysms of atrial fibrillation with elevation of his heartrate up to 160 beats and had an EKG with RBBB with QT interval 394 and QRS duration of 142. EKG calculated QTc was 457, so patient started sotalol morning of 11/20. Tolerated well. EKG checks following sotalol dosing were all showing QTc less than 500. Had five doses with monitoring and was clear to go home afterwards. We discontinued metoprolol XL with his sotalol load. - received TTE on 11/22 to examine current heart function; follow up as outpatient. #CAD s/p CABG Patient follows with Dr. Torre. Patient reports no chest pain or shortness of breath apart from the symptoms he has from his palpitations. No current concerns for angina or acute ischemia. Free to follow up with production support developer. - continue home atorvastatin - continue home aspirin #HTN Patient's home medications will be started tonight. We increased amlodipine to 5 mg. - amLODIPine, 5 mg daily - lisinopriL, 40 mg, oral daily #Seasonal allergies - continued home montelukast #Remote history of GIB No evidence of bleeding this admission. Monitored with daily CBCs given recent DOAC initiation. Hgbremained stable throughout admission. * Plan of Care - Shanwa Hoffman RN - 11/20/2022 12:47 AM CDT Goals: Clinical Goals for the Shift: [place] to unit, stable VS, possible sotalol load, monitor heart rhythm Problem: Health Behavior: Goal: Understanding of discharge needs will improve Outcome: Progressing Problem: Activity: Goal: Ability to tolerate increased activity will improve Outcome: Progressing Goal: Ability to participate in self-care as condition permits will improve Outcome: Progressing Problem: Cardiac: Goal: Ability to maintain an adequate cardiac output will improve Outcome: Progressing Goal: Will show no evidence of cardiac arrhythmias Outcome: Progressing Goal: Complications related to the disease process, condition or treatment will be avoided or minimized Outcome: Progressing Problem: Lack of Knowledge: Goal: Knowledge of disease or condition will improve Outcome: Progressing Goal: Knowledge of the prescribed therapeutic regimen will improve Outcome: Progressing Goal: Ability to identify and utilize available resources and services will improve Outcome: Progressing Problem: Coping: Goal: Level of anxiety will decrease Outcome: Progressing Problem: Safety: Goal: Ability to remain free from injury will improve Outcome: Progressing Goal: Will show no signs and symptoms of excessive bleeding Outcome: Progressing Summary: Patient verbalized understanding of care plan and is participating in care. Vital signs stable. Patient denies any further needs at this time. * Medical Student - Sepideh Voss - 11/19/2022 6:44 PM CDT Cardiology History and Physical Subjective Patient is a 76 y.o. male with chief complaint of afib here for sotalol loading. HPI: Nathan Wagner is a 76 y.o. man with history of severe aortic stenosis s/p bioprosthetic AVR 2020, three vessel coronary disease s/p CABG 2020, HTN, post- operative afib managed with amiodarone, diverticular bleeding, and H. Pylori associated bleeding who presents for sotalol loading after afib found on 48hr monitoring. Mr. Wagner felt generally unwell at his grandson's graduation 08/2022 and checked his blood pressure, which he found to be elevated with his heart rate in the 160s. He follows with Dr. Torre in cardiology and called the clinic, and was recommended to wear a 48hr Holter monitor that detected paroxysmalafib with RVR. He reports feeling it in his throat when he is in afib. He has experienced episodes of afib multiple times a week, almost daily. He denies dizziness, presyncope, dyspnea, chest pain,or palpitations. His last clinic visit was 11/14/22, where plans were made for starting Eliquis and inpatient admission for sotalol loading. On arrival, he is in afib and tachycardic but asymptomatic. Past Medical History: Diagnosis Date Basal cell [...] Procedure Laterality Date ABDOMINAL SURGERY CARDIAC CATHETERIZATION 2019 CARDIAC SURGERY COLONOSCOPY 2019 HEART SURGERY 2020 MITRAL VALVE REPLACEMENT MOHS SURGERY 2002 BCC behind right ear UPPER GASTROINTESTINAL ENDOSCOPY 2019 HOME MEDICATIONS : acetaminophen (TYLENOL) 325 mg tablet apixaban (Eliquis) 5 mg tablet aspirin 81 mg enteric coated tablet atorvastatin (LIPITOR) 80 mg tablet lisinopriL (PRINIVIL,ZESTRIL) 40 mg tablet metoprolol XL (TOPROL-XL) 50 mg extended release tablet montelukast (SINGULAIR) 10 mg tablet travoprost (TRAVATAN Z) 0.004 % drops Amlodipine 2.5mg daily No current facility-administered medications for this encounter. No Known Allergies Social History Tobacco Use Smoking status: Former Types: Cigarettes Quit date: 1970 Years since quittin.5 Smokeless tobacco: Never Substance and Sexual Activity Drug use: Not Currently Sexual activity: Defer (Smoked tobacco in late teens, stopped at 25, <half a pack per day Alcohol Use: Not At Risk (03/05/2022) AUDIT-C Frequency of Alcohol Consumption: Never Average Number of Drinks: 1 or 2 Frequency of Binge Drinking: Never Family history reviewed and non-contributory Family History Problem Relation Age of Onset Arrhythmia Brother Cancer Mother Hypertension Mother Heart disease Mother Hypertension Brother Heart attack Maternal Grandfather Anesthesia problems Neg Hx Review of Systems: Review of systems per HPI and all other systems are negative. Objective Vitals: Arrival Vitals Temp Pulse Resp BP SpO2 Temp src Heart Rate Source Patient Position BP Location FiO2 (%) 24hr Min/Max: No data recorded Most Recent : There were no vitals filed for this visit. No intake/output data recorded. No intake/output data recorded. Physical Exam: General appearance: no acute distress; resting comfortably in bed Head: Normocephalic, without obvious abnormality, atraumatic Eyes: anicteric sclera Neck: no JVD and supple, symmetrical, trachea midline Lungs: clear to auscultation bilaterally with decreased breath sounds in the right lower lobe Heart: tachycardic, irregular rhythm Abdomen: soft, non-distended, non-tender to palpation Extremities: atraumatic, warm and well-perfused Pulses: 2+ and symmetric; no radial pulse on the right 2/2 prior CABG Skin: Skin color, texture, turgor normal. No rashes or lesions Neurologic: Alert and oriented x4, non-focal Lab/Radiology/Diagnostic Review: Laboratory review: Lab results in the last 12 hours: Recent Results (from the past 12 hour(s)) Comprehensive metabolic panel Collection Time: 11/19/22 8:15 PM Result Value Ref Range Sodium 140 135 - 145 mmol/L Potassium, pl 4.3 3.3 - 4.9 mmol/L Chloride 102 97 - 110 mmol/L CO2 27 22 - 32 mmol/L Anion gap 11 2 - 15 mmol/L BUN 26 (H) 6 - 25 mg/dL Creatinine 1.34 (H) 0.80 - 1.30 mg/dL Glucose 120 70 - 199 mg/dL Calcium 10.1 8.5 - 10.3 mg/dL Bilirubin, total 0.8 0.1 - 1.2 mg/dL Protein, pl 7.0 6.5 - 8.5 g/dL Albumin 4.2 3.5 - 5.0 g/dL Alk phos 68 40 - 130 Units/L ALT 24 7 - 55 Units/L AST 25 10 - 50 Units/L Magnesium Collection Time: 11/19/22 8:15 PM Result Value Ref Range Magnesium 1.9 1.4 - 2.5 mg/dL Phosphorus Collection Time: 11/19/22 8:15 PM Result Value Ref Range Phosphorus, pl 3.3 2.3 - 4.5 mg/dL Calcium, ionized Collection Time: 11/19/22 8:15 PM Result Value Ref Range Calcium, Ionized 4.70 4.45 - 5.25 mg/dL Vitamin B12 Collection Time: 11/19/22 8:15 PM Result Value Ref Range Vitamin B12 413 230 - 1,250 pg/mL eGFR Collection Time: 11/19/22 8:15 PM Result Value Ref Range eGFR 55 (L) 90 - 130 mL/min/1.73 m2 CBC with auto differential Collection Time: 11/19/22 8:52 PM Result Value Ref Range WBC 8.3 3.8 - 9.9 K/cumm Hgb 14.4 13.0 - 17.5 g/dL Hct 42.1 38.9 - 50.3 % Plt 192 150 - 400 K/cumm MPV 12.0 9.1 - 12.3 fL RBC 4.81 4.30 - 5.80 M/cumm MCV 87.5 81.3 - 96.4 fL MCH 29.9 27.1 - 33.3 pg MCHC 34.2 32.3 - 35.7 g/dL RDW CV 13.4 11.1 - 14.9 % RDW SD 43.1 35.7 - 48.1 fL NRBC abs 0.00 0.00 - 0.01 K/cumm Protime-INR Collection Time: 11/19/22 8:52 PM Result Value Ref Range PT 13.0 10.3 - 13.7 sec INR 1.14 0.90 - 1.20 aPTT Collection Time: 11/19/22 8:52 PM Result Value Ref Range aPTT 31 28 - 38 sec Hemoglobin A1c Collection Time: 11/19/22 8:52 PM Result Value Ref Range Hgb A1C 5.6 4.0 - 5.6 % Estimated Average Glucose 114 mg/dL Differential, auto Collection Time: 11/19/22 8:52 PM Result Value Ref Range Neutrophil abs 6.6 (H) 1.7 - 6.5 K/cumm Imm gran abs 0.0 0.0 - 0.1 K/cumm Lymphocyte abs 0.8 0.8 - 3.3 K/cumm Monocyte abs 0.8 0.2 - 0.8 K/cumm Eosinophil abs 0.2 0.0 - 0.5 K/cumm Basophil abs 0.0 0.0 - 0.1 K/cumm Neutrophil pct 78.6 % Imm gran pct 0.4 % Lymphocyte pct 9.2 % Monocyte pct 9.5 % Eosinophil pct 1.9 % Basophil pct 0.4 % Ambulatory Commissary Agent Report 10/17/22-10/18/22, interpreted 10/26/22 Conclusions: Predominant rhythm is sinus rhythm with an average heart rate of 59bpm. Atrial fibrillation is present with a burden of 0.44%. Longest event of atrial fibrillation lasted for 8 minutes and 26 seconds. Highest ventricular rate during atrial fibrillation at 158bpm. There were 27 episodes of SVT. Longest episode 6 beats, with the fastest episode at 111bpm. Patient did not report any symptoms. Assessment /Plan Active Problems: No Active Problems: There are no active problems currently on the Problem List. Please update the Problem List and refresh. Nathan Wagner is a 76 y.o. man with history of severe aortic stenosis s/p bioprosthetic AVR 2020, CAD s/p CABG 2020, HTN, post-operative afib managed with amiodarone, diverticular bleeding, and H. Pylori associated bleeding who presents for sotalol loading iso afib. #Afib with RVR Holter monitoring 10/17-6/22 found predominantly sinus rhythm with afib burden of 0.44%, with the longest episode lasting 8 minutes 26 seconds and highest ventricular rate of 158bpm. His [id number] is 3 and he was recently started on anticoagulation. Now here to start sotalol. Last TTE was 07/20/20after CABG/valve replacement, with LVEF80% and no AR. Plan -EP consult -80mg sotalol BID -EKG two hours after each dose of sotalol, goal QTc<500 -Eliquis 5mg BID -continuous tele with SpO2 monitoring -vitals q6h -TTE #Coronary artery disease s/p CABG # s/p bioprosthetic AVR #HTN No active symptoms. Will continue his home medication regimen Plan -lisinopril 40mg daily, metoprolol 50mg daily, atorvastatin 80mg daily, asa 81mg daily, amlodipine 2.5mg daily #Seasonal allergies -home montelukast 10mg nightly Diet: Adult restricted 2g sodium, 2L fluids DVT prophylaxis: Eliquis Code status: Full Code Cosigned by Shlomo Bustos MD at 11/20/2022 11:24 AM CDT documented in this encounter Plan of Treatment Not on file documented as of this encounter Procedures Procedure Name Priority Date/Time Associated Diagnosis Comments TRANSTHORACIC ECHO (TTE) COMPLETE W DOPPLER/CF W CONTRAST Pending Discharge 11/22/2022 3:31 PM CDT EGFR STAT 11/22/2022 2:05 PM CDT BASIC METABOLIC PANEL STAT 11/22/2022 2:05 PM CDT ECG 12-LEAD Routine 11/22/2022 10:42 AM CDT ECG 12-LEAD Routine 11/21/2022 10:36 PM CDT EGFR Routine 11/21/2022 8:42 PM CDT CBC WITHOUT DIFFERENTIAL Routine 11/21/2022 8:42 PM CDT PHOSPHORUS Routine 11/21/2022 8:42 PM CDT MAGNESIUM Routine 11/21/2022 8:42 PM CDT BASIC METABOLIC PANEL Routine 11/21/2022 8:42 PM CDT ECG 12-LEAD Routine 11/21/2022 12:26 PM CDT POTASSIUM, WHOLE BLOOD STAT 11/20/2022 11:47 PM CDT ECG 12-LEAD Routine 11/20/2022 11:17 PM CDT EGFR Routine 11/20/2022 9:21 PM CDT CBC WITHOUT DIFFERENTIAL Routine 11/20/2022 9:21 PM CDT PHOSPHORUS Routine 11/20/2022 9:21 PM CDT MAGNESIUM Routine 11/20/2022 9:21 PM CDT BASIC METABOLIC PANEL Routine 11/20/2022 9:21 PM CDT ECG 12-LEAD Routine 11/20/2022 11:44 AM CDT ECG 12-LEAD Routine 11/20/2022 7:41 AM CDT DIFFERENTIAL AUTO STAT 11/19/2022 8:5 2 PM CDT CBC WITH AUTO DIFFERENTIAL STAT 11/19/2022 8:52 PM CDT APTT STAT 11/19/2022 8:52 PM CDT PROTIME-INR STAT 11/19/2022 8:52 PM CDT HEMOGLOBIN A1C STAT 11/19/2022 8:52 PM CDT EGFR STAT 11/19/2022 8:15 PM CDT CALCIUM, IONIZED STAT 11/19/2022 8:15 PM CDT TSH STAT 11/19/2022 8:15 PM CDT T4, FREE STAT 11/19/2022 8:15 PM CDT PHOSPHORUS STAT 11/19/2022 8:15 PM CDT MAGNESIUM STAT 11/19/2022 8:15 PM CDT VITAMIN B12 STAT 11/19/2022 8:15 PM CDT COMPREHENSIVE METABOLIC PANEL STAT 11/19/2022 8:15 PM CDT ECG 12-LEAD Routine 11/19/2022 7:53 PM CDT documented in this encounter Results * TRANSTHORACIC ECHO (TTE) COMPLETE W DOPPLER/CF W CONTRAST (11/22/2022 3:31 PM CDT) LV EF 60 % CARDIOREPORT Anatomical Region Laterality Modality Ultrasound 11/22/2022 2:00 PM CDT Narrative 11/22/2022 4:36 PM CDT Patient name: Nathan Wagner Date of test: 11/22/2022 Type of test: TTE w/Doppler Hospital #: 0 Date of : 1945 (M) Nurses Director: Fabi Garcia RDCS Referring Physician: ABIGAIL THOMASON MD Contrast Agent: 0.6 ml Optison Administered, (2.4 ml wasted). Contrast Administered by: Renata Flynn RN Supervised/Interpreted by: Den Sanchez MD Diagnosis: Location: [facility] Reason for test: prevention of thromboembolism in paroxysmal atrial fib MV Structure: Normal, ?MV Motion: Normal, ?? Mitral Annulus: Normal AV Structure: bioprosthesis and is Normal, ?? AV Motion: Normal Aotic root: Normal, ?TM: Normal, ?? PV: Normal Valvular Vegetations: none seen, ?Mass/Thrombi: none seen RA: Normal Measurements: ?M-Mode ?Normal ? Aotic Root: ? <3.8 ? LA: ? <4.0 ? RV: ? <2.8 ? LV(ED): ? <5.7 ? LV(ES): ? Variable ?2D Linear Normal ? Aotic Root: 3.4 cm ?<4.0 ? Ao Indexed: 1.7 cm/M2 <2.0 ? LA: ? <4.0 ? RV: ? 3.9 cm ?<4.2 ? LV(ED): ? 4.3 cm ?<5.9 ? LV(ES): ? 2.9 cm ?<4.0 ?2D Vol. ?? Normal ?Indexed ?? Indexed Normal RA: ? 56.0 ml ? 28.4 ml/M2 ?11-39 ? LA: ? 69.0 ml ? 34.9 ml/M2 ?16-34 ? RV: ? <12.7 ? LV(ED): ? 68.0 ml ?? 62-150 ?34.4 ml/M2 ?<75 ? LV(ES): ? 27.0 ml ?? 21-61 ? 13.7 ml/M2 ?<32 ?3D Vol. ? Indexed Normal LV(ED): ?<75 ? LV(ES): ?<32 ? LV EF: 60 % ?? (Normal: >=52%) ?? LV Septum: 1.1 cm ?(Normal: <1.0 cm) Wall Motion Scoring (1=Normal 2=Hypo 3=Akinetic 4=Dyskin./Aneurysm 0=Not visualized) Parasternal Long [place]:MAS=1 BAS=1 MIL=1 AGUSTÍN=1 Parasternal Short [place]:MAS=1 MIS=1 HI=1 MIL=1 MAL=1 MA=1 Apical 4 Chambers:=1 MIS=1 BIS=1 BAL=1 MAL=1 AL=1 AC=1 Apical 2 Chambers:AI=1 HI=1 BI=1 BA=1 MA=1 AA=1 AC=1 LV Global Longitudinal Strain: -13% ??(Normal <-17%) RV Global Longitudinal Strain: -16.7% ??(Normal <-17%) LV Function: Normal LV Ejection Fraction, (EF=52-72%) RV Function: Normal Septal Motion: Normal Pericardial Effusion: none seen Atrial Septum: Normal DOPPLER/COLOR FLOW DOPPLER RESULTS: Diastolic Function: Normal Tricuspid Valve: normal TV Pulmonic Valve: normal PV AV Regurgitation: No AR seen AV Stenosis: no AV Area: ??cm2 AV Pressure Gradient (mmHg): Mean: 15, Peak:25 MV Regurgitation: Trace MR MV Stenosis: ??no MS MV Area: ??cm2 MV Pressure Gradient (mmHg): Mean: 0 MV ERO: ??cm Regurg. Vol.: ??ml/beat Regurg. Frac.: ??% PA Pressure: 23+RA mmHg DOPPLER/COLOR FOLOW DOPPLER COMMENTS: No AR seen, Trace MR, no , ??no MS, normal TV, normal PV. Diastolic function: Normal CONTRAST: 0.6 ml Optison Administered, (2.4 ml wasted). SUMMARY: Normal LV and RV size and systolic function. LVEF estimated 60%. Normal LV wall thickness/mass. Bioprosthetic AVR is well seated with normal leaflets motion and normal peak and mean gradients (25 and 15 mmHg). No PVL. ??LA is normal. Normal RV cavity size. ??Estimated PA systolic pressure 23+RA(3) mmHg. Grade I diastolic function. Strain quality is inadequate for accurate reporting. ??Normal Inferior vena cava. Normal aorta. No changes noted. Confirmed on ??11/22/2022 - 16:36:01 by Den Sanchez MD By signing this report, the attending production support developer certifies that he or she has personally supervised and interpreted the echocardiogram and has reviewed and or edited and agrees with the written comments contained within the report. Procedure Note Den Portillo MD - 11/22/2022 Patient name: Nathan Wagner Date of test: 11/22/2022 Type of test: TTE w/Doppler Hospital #: 0 Date of : 1945 (M) Nurses Director: Fabi Garcia [facility] Referring Physician: ABIGAIL THOMASON MD Contrast Agent: 0.6 ml Optison Administered, (2.4 ml wasted). Contrast Administered by: Renata Flynn RN Supervised/Interpreted by: Den Sanchez MD Diagnosis: Location: [facility] Reason for test: prevention of thromboembolism in paroxysmal atrial fib MV Structure: Normal, MV Motion: Normal, Mitral Annulus: Normal AV Structure: bioprosthesis and is Normal, AV Motion: Normal Aotic root: Normal, TM: Normal, PV: Normal Valvular Vegetations: none seen, Mass/Thrombi: none seen RA: Normal Measurements: M-Mode Normal Aotic Root: <3.8 LA: <4.0 RV: <2.8 LV(ED): <5.7 LV(ES): Variable 2D Linear Normal Aotic Root: 3.4 cm <4.0 Ao Indexed: 1.7 cm/M2 <2.0 LA: <4.0 RV: 3.9 cm <4.2 LV(ED): 4.3 cm <5.9 LV(ES): 2.9 cm <4.0 2D Vol. Normal Indexed Indexed Normal RA: 56.0 ml 28.4 ml/M2 11-39 LA: 69.0 ml 34.9 ml/M2 16-34 RV: <12.7 LV(ED): 68.0 ml 62-150 34.4 ml/M2 <75 LV(ES): 27.0 ml 21-61 13.7 ml/M2 <32 3D Vol. Indexed Normal LV(ED): <75 LV(ES): <32 LV EF: 60 % (Normal: >=52%) LV Septum: 1.1 cm (Normal: <1.0 cm) Wall Motion Scoring (1=Normal 2=Hypo 3=Akinetic 4=Dyskin./Aneurysm 0=Not visualized) Parasternal Long [place]:MAS=1 BAS=1 MIL=1 AGUSTÍN=1 Parasternal Short [place]:MAS=1 MIS=1 HI=1 MIL=1 MAL=1 MA=1 Apical 4 Chambers:=1 MIS=1 BIS=1 BAL=1 MAL=1 AL=1 AC=1 Apical 2 Chambers:AI=1 HI=1 BI=1 BA=1 MA=1 AA=1 AC=1 LV Global Longitudinal Strain: -13% (Normal <-17%) RV Global Longitudinal Strain: -16.7% (Normal <-17%) LV Function: Normal LV Ejection Fraction, (EF=52-72%) RV Function: Normal Septal Motion: Normal Pericardial Effusion: none seen Atrial Septum: Normal DOPPLER/COLOR FLOW DOPPLER RESULTS: Diastolic Function: Normal Tricuspid Valve: normal TV Pulmonic Valve: normal PV AV Regurgitation: No AR seen AV Stenosis: no AV Area: cm2 AV Pressure Gradient (mmHg): Mean: 15, Peak:25 MV Regurgitation: Trace MR MV Stenosis: no MS MV Area: cm2 MV Pressure Gradient (mmHg): Mean: 0 MV ERO: cm Regurg. Vol.: ml/beat Regurg. Frac.: % PA Pressure: 23+RA mmHg DOPPLER/COLOR FOLOW DOPPLER COMMENTS: No AR seen, Trace MR, no , no MS, normal TV, normal PV. Diastolic function: Normal CONTRAST: 0.6 ml Optison Administered, (2.4 ml wasted). SUMMARY: Normal LV and RV size and systolic function. LVEF estimated 60%. Normal LV wall thickness/mass. Bioprosthetic AVR is well seated with normal leaflets motion and normal peak and mean gradients (25 and 15 mmHg). No PVL. LA is normal. Normal RV cavity size. Estimated PA systolic pressure 23+RA(3) mmHg. Grade I diastolic function. Strain quality is inadequate for accurate reporting. Normal Inferior vena cava. Normal aorta. No changes noted. Confirmed on 11/22/2022 - 16:36:01 by Den Sanchez MD By signing this report, the attending production support developer certifies that he or she has personally supervised and interpreted the echocardiogram and has reviewed and or edited and agrees with the written comments contained within the report. us Abigail Thomason MD CV ECHO PROCEDURES F inal Result * (ABNORMAL) eGFR (11/22/2022 2:05 PM CDT) [facility] eGFR 60(L) 90 - 130 mL/min/1. 73 m2 [facility] Comment: Interpretive Data Reference Interval Normal ?>/= [...] interpretive data was last reviewed 2021. Blood 11/22/2022 2:05 PM CDT 11/22/2022 3:05 PM CDT Abigail Thomason MD LAB BLOOD ORDERABLES Final Result [facility] [place] [address] * (ABNORMAL) Basic metabolic panel (11/22/2022 2:05 PM CDT) Sodium 140 135 - 145 mmol/L [facility] Potassium, pl 4.5 3.3 - 4.9 mmol/L [facility] Chloride 104 97 - 110 mmol/L [facility] CO2 26 22 - 32 mmol/L [facility] Anion gap 10 2 - 15 mmol/L [facility] BUN 31(H) 6 - 25 mg/dL [facility] Creatinine 1.25 0.80 - 1.30 mg/dL [facility] Glucose 137 70 - 199 mg/dL [facility] Comment: Interpretive Data Fasting glucose >/= 126 [...] interpretive data was last revised 2022. Calcium 8.9 8.5 - 10.3 mg/dL [facility] Blood 11/22/2022 2:05 PM CDT 11/22/2022 3:05 PM CDT us Abigail Thomason MD LAB BLOOD ORDERABLES Final Result Performing Organization Address [facility] Co de Phone Number [facility] [place] [address] * ECG 12 lead (11/22/2022 10:42 AM CDT) Ventricular Rate EKG/Min 49 BPM [facility] Atrial Rate 49 BPM [facility] AL-Interval (MSEC) 162 ms [facility] QRS-Interval (MSEC) 158 ms [facility] QT-Interval (MSEC) 498 ms [facility] QTc 449 ms [facility] P [place] 53 degrees [facility] R [place] 91 degrees [facility] T [place] 38 degrees [facility] Diagnosis Sinus bradycardia Right bundle branch block Abnormal ECG When compared with ECG of 21-NOV-2022 22:36, (unconfirmed) No significant change was found Confirmed by NELA COOK M.D ([id number]) on 11/23/2022 8:49:12 AM [facility] 11/22/2022 10:4 2 AM CDT 11/23/2022 8:49 AM CDT us Abigail Thomason MD ECG ORDERABLES Donna l Result Performing Organization Address [facility] Co de Phone Number [facility] * ECG 12 lead (11/21/2022 10:36 PM CDT) Ventricular Rate EKG/Min 48 BPM [facility] Atrial Rate 48 BPM [facility] AL-Interval (MSEC) 170 ms [facility] QRS-Interval (MSEC) 162 ms [facility] QT-Interval (MSEC) 520 ms [facility] QTc 464 ms [facility] P [place] 65 degrees [facility] R [place] 19 degrees [facility] T [place] 42 degrees [facility] Diagnosis Sinus bradycardia Right bundle branch block Abnormal ECG When compared with ECG of 20-NOV-2022 23:17, No significant change was found Confirmed by GERBER MIRZA M.D ([id number]) on 11/22/2022 12:35:33 PM [facility] 11/21/2022 10:3 6 PM CDT 11/22/2022 12:35 PM CDT Abigail Thomason MD ECG ORDERABLES Donna l Result [facility] * (ABNORMAL) eGFR (11/21/2022 8:42 PM CDT) eGFR 51(L) 90 - 130 mL/min/1. 73 m2 [facility] Comment: Interpretive Data Reference Interval Normal ?>/= [...] interpretive data was last reviewed 2021. Blood 11/21/2022 8:42 PM CDT 11/21/2022 10:12 PM CDT us Abigail Thomason MD LAB BLOOD ORDERABLES Final Result [facility] [place] [address] * (ABNORMAL) CBC without differential (11/21/2022 8:42 PM CDT) Pathologist [facility] WBC 7.4 3.8 - 9.9 K/cumm [facility] Hgb 15.0 13.0 - 17.5 g/dL [facility] Hct 42.2 38.9 - 50.3 % [facility] Plt 188 150 - 400 K/cumm [facility] MPV 12.5(H) 9.1 - 12.3 fL [facility] RBC 4.90 4.30 - 5.80 M/cumm [facility] MCV 86.1 81.3 - 96.4 fL [facility] MCH 30.6 27.1 - 33.3 pg [facility] MCHC 35.5 32.3 - 35.7 g/dL [facility] RDW CV 13.7 11.1 - 14.9 % [facility] RDW SD 43.7 35.7 - 48.1 fL [facility] NRBC abs 0.00 0.00 - 0.01 K/cumm [facility] Blood 11/21/2022 8:42 PM CDT 11/21/2022 10:12 PM CDT us Abigail Thomason MD LAB BLOOD ORDERABLES Final Result [facility] [place] [address] * Phosphorus (11/21/2022 8:42 PM CDT) Phosphorus, pl 2.8 2.3 - 4.5 mg/dL [facility] Blood 11/21/2022 8:42 PM CDT 11/21/2022 10:12 PM CDT us Abigail Thomason MD LAB BLOOD ORDERABLES Final Result Performing Organization Address City/[facility]/ZIP Co de Phone Number [facility] [place] [address] * Magnesium (11/21/2022 8:42 PM CDT) Pathologist [facility] Magnesium 2.3 1.4 - 2.5 mg/dL [facility] Blood 11/21/2022 8:42 PM CDT 11/21/2022 10:12 PM CDT Abigail Thomason MD LAB BLOOD ORDERABLES Final Result Performing Organization Address [facility] de Phone Number [facility] [place] [address] * (ABNORMAL) Basic metabolic panel (11/21/2022 8:42 PM CDT) Pathologist [facility] Sodium 142 135 - 145 mmol/L [facility] Potassium, pl 3.7 3.3 - 4.9 mmol/L [facility] Chloride 105 97 - 110 mmol/L [facility] CO2 27 22 - 32 mmol/L [facility] Anion gap 10 2 - 15 mmol/L [facility] BUN 29(H) 6 - 25 mg/dL [facility] Creatinine 1.42(H) 0.80 - 1.30 mg/dL [facility] Glucose 154 70 - 199 mg/dL [facility] Comment: Interpretive Data Fasting glucose >/= 126 [...] classification and Diagnosis of Diabetes Diabetes Care 2022; 46: S19-S40. Current interpretive data was last revised 2022. Calcium 9.2 8.5 - 10.3 mg/dL [facility] Blood 11/21/2022 8:42 PM CDT 11/21/2022 10:12 PM CDT Abigail Thomason MD LAB BLOOD ORDERABLES Final Result [facility] [place] [address] * ECG 12 lead (11/21/2022 12:26 PM CDT) Ventricular Rate EKG/Min 50 BPM [facility] Atrial Rate 50 BPM [facility] AL-Interval (MSEC) 158 ms [facility] QRS-Interval (MSEC) 152 ms [facility] QT-Interval (MSEC) 514 ms [facility] QTc 468 ms [facility] P [place] 50 degrees [facility] R [place] 2 degrees [facility] T [place] 40 degrees [facility] Diagnosis Sinus bradycardia Right bundle branch block Abnormal ECG When compared with ECG of 20-NOV-2022 23:17, No significant change was found Confirmed by GERBER MIRZA M.D ([id number]) on 11/22/2022 1:03:42 PM [facility] 11/21/2022 12:2 6 PM CDT 11/22/2022 1:03 PM CDT us Abigail Thomason MD ECG ORDERABLES Donna l Result [facility] * Potassium, whole blood (11/20/2022 11:47 PM CDT) Potassium, bld 3.9 3.3 - 4.9 mmol/L [facility] Blood 11/20/2022 11:4 7 PM CDT 11/21/2022 12:31 AM CDT us Abigail Thomason MD LAB BLOOD ORDERABLES Final Result Performing Organization Address [facility]/[place] Co de Phone Number [facility] [place] [address] * ECG 12 lead (11/20/2022 11:17 PM CDT) Ventricular Rate EKG/Min 52 BPM [facility] Atrial Rate 52 BPM [facility] AL-Interval (MSEC) 174 ms [facility] QRS-Interval (MSEC) 158 ms [facility] QT-Interval (MSEC) 520 ms [facility] QTc 483 ms [facility] P [place] 64 degrees [facility] [place] 24 degrees [facility] T [place] 37 degrees [facility] Diagnosis Sinus bradycardia Right bundle branch block Abnormal ECG When compared with ECG of 20-NOV-2022 11:44, (unconfirmed) QRS duration has increased Criteria for Septal infarct are no longer Present T wave inversion no longer evident in Anterior leads [facility] 11/20/2022 11:1 7 PM CDT 11/21/2022 2:21 PM CDT us Abigail Thomason MD ECG ORDERABLES Donna l Result Performing Organization Address [facility] de Phone Number [facility] * (ABNORMAL) eGFR (11/20/2022 9:21 PM CDT) Pathologist [facility] eGFR 64(L) 90 - 130 mL/min/1. 73 m2 [facility] Comment: Interpretive Data Reference Interval Normal ?>/= [...] interpretive data was last reviewed 2021. Blood 11/20/2022 9:21 PM CDT 11/20/2022 9:59 PM CDT Abigail Thomason MD LAB BLOOD ORDERABLES Final Result [facility] [place] [address] * (ABNORMAL) CBC without differential (11/20/2022 9:21 PM CDT) WBC 7.6 3.8 - 9.9 K/cumm [facility] Hgb 14.6 13.0 - 17.5 g/dL [facility] Hct 43.1 38.9 - 50.3 % [facility] Plt 211 150 - 400 K/cumm [facility] MPV 12.7(H) 9.1 - 12.3 fL [facility] RBC 4.93 4.30 - 5.80 M/cumm [facility] MCV 87.4 81.3 - 96.4 fL [facility] MCH 29.6 27.1 - 33.3 pg [facility] MCHC 33.9 32.3 - 35.7 g/dL [facility] RDW CV 13.7 11.1 - 14.9 % [facility] RDW SD 44.2 35.7 - 48.1 fL [facility] NRBC abs 0.00 0.00 - 0.01 K/cumm [facility] Blood 11/20/2022 9:21 PM CDT 11/20/2022 9:56 PM CDT Abigail Thomason MD LAB BLOOD ORDERABLES Final Result Performing Organization Address City/[facility]/ZIP Co de Phone Number [facility] [place] [address] * Phosphorus (11/20/2022 9:21 PM CDT) [facility] Phosphorus, pl 3.5 2.3 - 4.5 mg/dL [facility] Blood 11/20/2022 9:21 PM CDT 11/20/2022 9:59 PM CDT us Abigail Thomason MD LAB BLOOD ORDERABLES Final Result Performing Organization Address City/[facility]/[place] Co de Phone Number [facility] [place] [address] * Magnesium (11/20/2022 9:21 PM CDT) [facility] Magnesium 2.2 1.4 - 2.5 mg/dL [facility] Blood 11/20/2022 9:21 PM CDT 11/20/2022 9:59 PM CDT Abigail Thomason MD LAB BLOOD ORDERABLES Final Result Performing Organization Address City/[facility]/[place] [address] * Basic metabolic panel (11/20/2022 9:21 PM CDT) [facility] Sodium 141 135 - 145 mmol/L [facility] Potassium, pl 4.4 3.3 - 4.9 mmol/L [facility] Comment:Hemolyzed; Potassium value may be falsely elevated by as much as 0.3-0.5 mmol/L. Suggest redraw and reanalysis. Chloride 104 97 - 110 mmol/L [facility] CO2 28 22 - 32 mmol/L [facility] Anion gap 9 2 - 15 mmol/L [facility] BUN 24 6 - 25 mg/dL [facility] Creatinine 1.18 0.80 - 1.30 mg/dL [facility] Glucose 88 70 - 199 mg/dL [facility] Comment: Interpretive Data Fasting glucose >/= 126 [...] interpretive data was last revised 2022. Calcium 9.4 8.5 - 10.3 mg/dL [facility] Blood 11/20/2022 9:21 PM CDT 11/20/2022 9:59 PM CDT us Abigail Thomason MD LAB BLOOD ORDERABLES Final Result [facility] [place] [address] * ECG 12 lead (11/20/2022 11:44 AM CDT) Ventricular Rate EKG/Min 53 BPM [facility] Atrial Rate 53 BPM [facility] AL-Interval (MSEC) 172 ms [facility] QRS-Interval (MSEC) 128 ms [facility] QT-Interval (MSEC) 462 ms [facility] QTc 433 ms [facility] P [place] 56 degrees [facility] R [place] -17 degrees [facility] T [place] 18 degrees [facility] Diagnosis Sinus bradycardia Possible Left atrial enlargement Right bundle branch block Septal infarct , age undetermined Abnormal ECG When compared with ECG of 20-NOV-2022 07:41, (unconfirmed) Septal infarct is now Present [facility] 11/20/2022 11:4 4 AM CDT 11/21/2022 8:09 AM CDT us Abigail Thomason MD ECG ORDERABLES Donna l Result Performing Organization Address [facility] Phone Number [facility] * ECG 12 lead (11/20/2022 7:41 AM CDT) Ventricular Rate EKG/Min 66 BPM [facility] Atrial Rate 66 BPM [facility] AL-Interval (MSEC) 158 ms [facility] QRS-Interval (MSEC) 144 ms [facility] QT-Interval (MSEC) 430 ms [facility] QTc 450 ms [facility] P [place] 65 degrees [facility] R [place] -37 degrees [facility] T [place] 27 degrees [facility] Diagnosis Poor data quality, interpretation may be adversely affected Normal sinus rhythm Possible Left atrial enlargement Left axis deviation Right bundle branch block Abnormal ECG When compared with ECG of 19-NOV-2022 19:53, (unconfirmed) QRS axis Shifted left T wave inversion now evident in Anterior leads [facility] 11/20/2022 7:41 AM CDT 11/20/2022 3:50 PM CDT us Abigail Thomason MD ECG ORDERABLES Donna l Result Performing Organization Address [facility] de Phone Number [facility] * (ABNORMAL) Differential, auto (11/19/2022 8:52 PM CDT) Neutrophil abs 6.6(H) 1.7 - 6.5 K/cumm [facility] Imm gran abs 0.0 0.0 - 0.1 K/cumm [facility] Lymphocyte abs 0.8 0.8 - 3.3 K/cumm [facility] Monocyte abs 0.8 0.2 - 0.8 K/cumm [facility] Eosinophil abs 0.2 0.0 - 0.5 K/cumm [facility] Basophil abs 0.0 0.0 - 0.1 K/cumm [facility] Neutrophil pct 78.6 % [facility] Comment: Interpretive Data Percent cell count reference ranges are not reported, since discordance with absolute values may lead to misinterpretation of CBC data. Current Interpretive Data was last revised on 2017. Imm gran pct 0.4 % [facility] Comment: Interpretive Data Percent cell count reference ranges are not reported, since discordance with absolute values may lead to misinterpretation of CBC data. Current Interpretive Data was last revised on 2017. Lymphocyte pct 9.2 % [facility] Comment: Interpretive Data Percent cell count reference ranges are not reported, since discordance with absolute values may lead to misinterpretation of CBC data. Current Interpretive Data was last revised on 2017. Monocyte pct 9.5 % [facility] Comment: Interpretive Data Percent cell count reference ranges are not reported, since discordance with absolute values may lead to misinterpretation of CBC data. Current Interpretive Data was last revised on 2017. Eosinophil pct 1.9 % [facility] Comment: Interpretive Data Percent cell count reference ranges are not reported, since discordance with absolute values may lead to misinterpretation of CBC data. Current Interpretive Data was last revised on 2017. Basophil pct 0.4 % [facility] Comment: Interpretive Data Percent cell count reference ranges are not reported, since discordance with absolute values may lead to misinterpretation of CBC data. Current Interpretive Data was last revised on 2017. Blood 11/19/2022 8:52 PM CDT 11/19/2022 9:23 PM CDT us Tera Torre MD LAB BLOOD ORDERABLES Final R esult [facility] [place] [address] * Hemoglobin A1c (11/19/2022 8:52 PM CDT) Hgb A1C 5.6 4.0 - 5.6 % [facility] Estimated Average Glucose 114 mg/dL [facility] Comment: The ADA recommends reporting an estimated Average Glucose (eAG) with all Hemoglobin A1c results using the equation derived from a study of 507 normal and diabetic adults. ??Minority populations were underrepresented and children were not included. ?? (Diabetes Care 2020; 43(S1): S66-S76). ??The eAG is not equivalent to a fasting glucose. Blood 11/19/2022 8:52 PM CDT 11/19/2022 9:23 PM CDT Tera Torre MD LAB BLOOD ORDERABLES Final R esult Performing Organization Address [facility] de Phone Number [facility] [place] [address] * aPTT (11/19/2022 8:52 PM CDT) aPTT 31 28 - 38 sec [facility] Comment: Interpretive Data Therapeutic heparin range: 60.0 - 94.0 seconds. Based on correlation with therapeutic heparin activity range of 0.3-0.7 Units/mL. Current interpretive data was last revised on 2020. Blood 11/19/2022 8:52 PM CDT 11/19/2022 9:30 PM CDT Tera oTrre MD LAB BLOOD ORDERABLES Final R esult Performing Organization Address [facility]/[place] Co de Phone Number [facility] [place] [address] * Protime-INR (11/19/2022 8:52 PM CDT) PT 13.0 10.3 - 13.7 sec [facility] INR 1.14 0.90 - 1.20 [facility] Comment: Interpretive data Oral anticoagulant therapeutic ranges: Venous thromboembolism prophylaxis or treatment: 2.0-3.0 CARDIOLOGY Standard range: 2.0-3.0 High-intensity range: 2.5-3.5 Refer to indication-specific guidelines for appropriate target ranges for prosthetic heart valve replacement. Current interpretive data was last revised on 2019. Blood 11/19/2022 8:52 PM CDT 11/19/2022 9:30 PM CDT Tera Torre MD LAB BLOOD ORDERABLES Final R esult Performing Organization Address City/[facility]/ZIP Co de Phone Number [facility] [place] [address] * CBC with auto differential (11/19/2022 8:52 PM CDT) WBC 8.3 3.8 - 9.9 K/cumm [facility] Hgb 14.4 13.0 - 17.5 g/dL [facility] Hct 42.1 38.9 - 50.3 % [facility] Plt 192 150 - 400 K/cumm [facility] MPV 12.0 9.1 - 12.3 fL [facility] RBC 4.81 4.30 - 5.80 M/cumm [facility] MCV 87.5 81.3 - 96.4 fL [facility] MCH 29.9 27.1 - 33.3 pg [facility] MCHC 34.2 32.3 - 35.7 g/dL [facility] RDW CV 13.4 11.1 - 14.9 % [facility] RDW SD 43.1 35.7 - 48.1 fL [facility] NRBC abs 0.00 0.00 - 0.01 K/cumm [facility] Blood 11/19/2022 8:52 PM CDT 11/19/2022 9:23 PM CDT us Tera Torre MD LAB BLOOD ORDERABLES Final R esult Performing Organization Address City/[facility]/ZIP Co de Phone Number [facility] [place] [address] * (ABNORMAL) eGFR (11/19/2022 8:15 PM CDT) eGFR 55(L) 90 - 130 mL/min/1. 73 m2 [facility] Comment: Interpretive Data Reference Interval Normal ?>/= [...] interpretive data was last reviewed 2021. Blood 11/19/2022 8:15 PM CDT 11/19/2022 9:00 PM CDT Tera Torre MD LAB BLOOD ORDERABLES Final R esult [facility] Department [place] [address] * T4, free (11/19/2022 8:15 PM CDT) Free T4 1.29 0.90 - 1.70 ng/dL [facility] Blood 11/19/2022 8:15 PM CDT 11/19/2022 8:43 PM CDT us Tera Torre MD LAB BLOOD ORDERABLES Final R esult Performing Organization Address City/[facility]/ZIP Co de Phone Number [facility] [place] [address] * TSH (11/19/2022 8:15 PM CDT) Thyroid Stimulating Hormone 1.95 0.30 - 4.20 mcIUnit/mL [facility] Blood 11/19/2022 8:15 PM CDT 11/19/2022 8:43 PM CDT us Tera Torre MD LAB BLOOD ORDERABLES Final R esult Performing Organization Address [facility]/[place] Co de Phone Number [facility] [place] [address] * Vitamin B12 (11/19/2022 8:15 PM CDT) Vitamin B12 413 230 - 1,250 pg/mL [facility] Blood 11/19/2022 8:15 PM CDT 11/19/2022 8:43 PM CDT us Tera Torre MD LAB BLOOD ORDERABLES Final R esult Performing Organization Address City/[facility]/[place] Co de Phone Number [facility] [place] [address] * Calcium, ionized (11/19/2022 8:15 PM CDT) Calcium, Ionized 4.70 4.45 - 5.25 mg/dL [facility] Blood 11/19/2022 8:15 PM CDT 11/19/2022 8:43 PM CDT Tera Torre MD LAB BLOOD ORDERABLES Final R esult Performing Organization Address City/[facility]/[place] Co de Phone Number [facility] [place] [address] * Phosphorus (11/19/2022 8:15 PM CDT) [facility] Phosphorus, pl 3.3 2.3 - 4.5 mg/dL [facility] Blood 11/19/2022 8:15 PM CDT 11/19/2022 8:43 PM CDT us Tera Torre MD LAB BLOOD ORDERABLES Final R esult Performing Organization Address [facility]/[place] Co de Phone Number [facility] [place] [address] * Magnesium (11/19/2022 8:15 PM CDT) [facility] Magnesium 1.9 1.4 - 2.5 mg/dL [facility] Blood 11/19/2022 8:15 PM CDT 11/19/2022 8:43 PM CDT us Tera Torre MD LAB BLOOD ORDERABLES Final R esult Performing Organization Address [facility]/[place] Co de Phone Number [facility] [place] [address] * (ABNORMAL) Comprehensive metabolic panel (11/19/2022 8:15 PM CDT) [facility] Sodium 140 135 - 145 mmol/L [facility] Potassium, pl 4.3 3.3 - 4.9 mmol/L [facility] Chloride 102 97 - 110 mmol/L [facility] CO2 27 22 - 32 mmol/L [facility] Anion gap 11 2 - 15 mmol/L [facility] BUN 26(H) 6 - 25 mg/dL [facility] Creatinine 1.34(H) 0.80 - 1.30 mg/dL [facility] Glucose 120 70 - 199 mg/dL [facility] Comment: Interpretive Data Fasting glucose >/= 126 [...] interpretive data was last revised 2022. Calcium 10.1 8.5 - 10.3 mg/dL [facility] Bilirubin, total 0.8 0.1 - 1.2 mg/dL [facility] Protein, pl 7.0 6.5 - 8.5 g/dL [facility] Albumin 4.2 3.5 - 5.0 g/dL [facility] Alk phos 68 40 - 130 Units/L [facility] ALT 24 7 - 55 Units/L [facility] AST 25 10 - 50 Units/L [facility] Blood 11/19/2022 8:15 PM CDT 11/19/2022 8:43 PM CDT Tera Torre MD LAB BLOOD ORDERABLES Final R esult [facility] [place] [address] * ECG 12 lead (11/19/2022 7:53 PM CDT) Ventricular Rate EKG/Min 81 BPM [facility] Atrial Rate 81 BPM [facility] AL-Interval (MSEC) 148 ms [facility] QRS-Interval (MSEC) 142 ms [facility] QT-Interval (MSEC) 394 ms [facility] QTc 457 ms [facility] P [place] 69 degrees [facility] [place] 99 degrees [facility] [place] 32 degrees [facility] Diagnosis Normal sinus rhythm Possible Left atrial enlargement Right bundle branch block Abnormal ECG When compared with ECG of 28-JUN-2020 06:07, Sinus rhythm has replaced Atrial flutter Right bundle branch block is now Present [facility] 11/19/2022 7:53 PM CDT 11/20/2022 10:40 AM CDT Tera Torre MD ECG ORDERABLES Edited Resul t - Final [facility] documented in this encounter Visit Diagnoses Diagnosis Atrial fibrillation with RVR (CMS/HCC) (HCC)- Primary documented in this encounter Admitting Diagnoses Diagnosis Atrial fibrillation with RVR (CMS/HCC) (HCC) documented in this encounter Administered Medications Inactive Administered Medications - up to 3 most recent administrations Medication Order MAR Action Action Date Dose Rate Site amLODIPine (NORVASC) tablet 2.5 mg 2.5 mg, oral, Daily, First dose (after last modification) on Sat11/19/22 at 2130 Given 11/20/2022 5:50 PM CDT 2.5 mg Given 11/19/2022 9:31 PM CDT 2.5 mg amLODIPine (NORVASC) tablet 5 mg 5 mg, oral, Daily, First dose (after last modification) on Sat11/21/22 at 1800 Given 11/21/2022 6:35 PM CDT 5 mg apixaban (ELIQUIS) tablet 5 mg 5 mg, oral, 2 times daily, First dose on Sat11/19/22 at 2115, Nurse to discontinue heparin infusion order and associated bolus at first administration of apixaban using 'order condition met' order source, Indications: atrial fibrillationIndications:atrial fibrillation Given 11/22/2022 8:47 AM CDT 5 mg Given 11/21/2022 8:30 PM CDT 5 mg Given 11/21/2022 9:37 AM CDT 5 mg aspirin enteric coated tablet 81 mg 81 mg, oral, Daily, First dose on Sat11/20/22 at 1215, Do not crush, chew, cut, dissolve, open or otherwise manipulate tablet/capsule. Given 11/21/2022 8:30 PM CDT 81 mg Given 11/20/2022 12:16 PM CDT 81 mg atorvastatin (LIPITOR) tablet 80 mg 80 mg, oral, Daily, First dose (after last modification) on Sat11/19/22 at 2130 Given 11/21/2022 6:35 PM CDT 80 mg Given 11/20/2022 5:50 PM CDT 80 mg Given 11/19/2022 9:31 PM CDT 80 mg lisinopriL (PRINIVIL,ZESTRIL) tablet 40 mg 40 mg, oral, Daily, First dose (after last modification) on Sat11/19/22 at 2130 Given 11/21/2022 6:35 PM CDT 40 mg Given 11/20/2022 5:50 PM CDT 40 mg Given 11/19/2022 9:31 PM CDT 40 mg metoprolol XL (TOPROL-XL) extended release tablet 50 mg 50 mg, oral, Daily, First dose (after last modification) on Sat11/19/22 at 2130, Tablets that are scored may be split, but do not crush, chew, dissolve, open or otherwise manipulate tablet/capsule., On hold since Sat11/20/2022 at 0832 until manually unheld Given 11/19/2022 9:31 PM CDT 50 m g montelukast (SINGULAIR) tablet 10 mg 10 mg, oral, Nightly, First dose on Sat11/19/22 at 2115, Indications: Seasonal Allergic RhinitisIndications:Seasonal Allergic Rhinitis Given 11/21/2022 8:30 PM CDT 10 mg Given 11/20/2022 9:12 PM CDT 10 mg Given 11/19/2022 9:31 PM CDT 10 mg perflutren protein-a (OPTISON) 3 mL in sodium chloride 0.9% 8 mL syringe 1-8 mL, intravenous, Once in imaging, contrast, Starting on Sat11/22/22 at 1440, For 1 dose, Intra-Procedure (CV) Contrast Given 11/22/2022 3:31 PM CDT 1.5 mL potassium chloride ER (KLOR-CON) extended release tablet 30 mEq 30 mEq, oral, Once, On Sat11/22/22 at 0815, For 1 dose, Tablets should not be crushed, chewed, dissolved, or otherwise manipulated. Capsules may be opened and sprinkled on a spoonful of applesauce or pudding, but the contents of the capsule should not be crushed or chewed. Given 11/22/2022 8:47 AM CDT 30 mEq sodium chloride 0.9% flush 0.5-20 mL 0.5-20 mL, intra-catheter, Every 8 hours scheduled, First dose on Sat11/19/22 at 2200, Flush volume based on line type and size. Given 11/22/2022 2:06 PM CDT 10 mL Given 11/21/2022 8:31 PM CDT 10 mL Given 11/21/2022 2:00 PM CDT 10 mL sotaloL (BETAPACE) tablet 80 mg 80 mg, oral, 2 times daily, First dose on Sat11/20/22 at 0945 Given 11/22/2022 8:49 AM CDT 80 mg Given 11/21/2022 8:30 PM CDT 80 mg Given 11/21/2022 9:37 AM CDT 80 mg documented in this encounter Discontinued Medications Medication Sig Discontinue Reason Start Date End Da te metoprolol XL (TOPROL-XL) 50 mg extended release tablet Take 1 tablet (50 mg total) by mouth daily Stop Taking at Discharge 10/16/2022 11/22/2022 amLODIPine (NORVASC) 2.5 mg tablet Take 1 tablet (2.5 mg total) by mouth daily Stop Taking at Discharge 11/22/2022 documented as of this encounter Historical Medications * This list may reflect changes made after this encounter. amLODIPine (NORVASC) 2.5 mg tablet Take 1 tablet (2.5 mg total) by mouth daily 11/22/2022 added in this encounter Active and Recently Administered Medications Times are shown in CDT. Scheduled Medication Order 11/20/2022 11/21/2022 11/22/2022 amLODIPine (NORVASC) tablet 2.5 mg (CANCELED) 2.5 mg, oral, Daily, First dose (after last modification) on Sat11/19/22 at 2130 0815 (Not Given - Provider: Pat Hi RN - Reason: Other)1750 (Given - Provider: Pat Hi RN) amLODIPine (NORVASC) tablet 5 mg 5 mg, oral, Daily, First dose (after last modification) on Sat11/21/22 at 1800 1835 (Given - Provider: Sarah Bradley RN) apixaban (ELIQUIS) tablet 5 mg 5 mg, oral, 2 times daily, First dose on Sat11/19/22 at 2115, Nurse to discontinue heparin infusion order and associated bolus at first administration of apixaban using 'order condition met' order source, Indications: atrial fibrillation 814 (Given - Provider: Pat Hi RN)2111 (Given - Provider: Imani Santos RN) 09 (Given - Provider: Sarah Bradley RN)2029 (Given - Provider: Imani Santos RN) 08 (Given - Provider: Sarah Bradley RN) aspirin enteric coated tablet 81 mg 81 mg, oral, Daily, First dose on Sat11/20/22 at 1215, Do not crush, chew, cut, dissolve, open or otherwise manipulate tablet/capsule. 1216 (Given - Provider: Pat Hi RN)2099 (Canceled Entry - Provider: Hien Mcbride [facility]) 2029 (Given - Provider: Imani Santos RN) atorvastatin (LIPITOR) tablet 80 mg 80 mg, oral, Daily, First dose (after last modification) on Sat11/19/22 at 2130 0815 (Not Given - Provider: Pat Hi RN - Reason: Other)1750 (Given - Provider: Pat Hi RN) 183 (Given - Provider: Sarah Bradley RN) lisinopriL (PRINIVIL,ZESTRIL) tablet 40 mg 40 mg, oral, Daily, First dose (after last modification) on Sat11/19/22 at 2130 0815 (Not Given - Provider: Pat Hi RN - Reason: Other)1750 (Given - Provider: Pat Hi RN) 183 (Given - Provider: Sarah Bradley RN) montelukast (SINGULAIR) tablet 10 mg 10 mg, oral, Nightly, First dose on Sat11/19/22 at 211, Indications: Seasonal Allergic Rhinitis 2111 (Given - Provider: Imani Santos RN) 2029 (Given - Provider: Imani Santos RN) potassium chloride ER (KLOR-CON) extended release tablet 30 mEq (COMPLETED) 30 mEq, oral, Once, On [place] 7/27/23 at 0815, For 1 dose, Tablets should not be crushed, chewed, dissolved, or otherwise manipulated. Capsules may be opened and sprinkled on a spoonful of applesauce or pudding, but the contents of the capsule should not be crushed or chewed. 0847 (Given - Provider: Sarah Bradley RN) sodium chloride 0.9% flush 0.5-20 mL 0.5-20 mL, intra-catheter, Every 8 hours scheduled, First dose on Sat11/19/22 at 2200, Flush volume based on line type and size. 0639 (Given - Provider: Shawna Hoffman, TREV)1342 (Not Given - Provider: Pat Hi RN - Reason: Other)2113 (Given - Provider: Imani Santos RN) 0629 (Given - Provider: Imani Santos, TREV)1400 (Given - Provider: Sarah Bradley RN)2031 (Given - Provider: Imani Santos RN) 0554 (Not Given - Provider: Imani Santos RN - Reason: Patient/family refused)1406 (Given - Provider: Sarah Bradley, TREV) sotaloL (BETAPACE) tablet 80 mg 80 mg, oral, 2 times daily, First dose on Sat11/20/22 at 0945 0927 (Given - Provider: Pat Hi RN)2126 (Given - Provider: Imani Santos RN - Comment: per Dr. Longoria; give sotalol dose) 0937 (Given - Provider: Sarah Bradley RN)2030 (Given - Provider: Imani Santos RN) 0849 (Given - Provider: Sarah Bradley, TREV) PRN Medication Order 11/20/2022 11/21/2022 11/22/2022 acetaminophen (TYLENOL) tablet 650 mg 650 mg, oral, Every 4 hours PRN, 1st line for pain, fever, fever greater than 38.3 C, Starting on Sat11/19/22 at 1951, Indications: Fever, Pain perflutren protein-a (OPTISON) 3 mL in sodium chloride 0.9% 8 mL syringe (COMPLETED) 1-8 mL, intravenous, Once in imaging, contrast, Starting on 11/22/22 at 1440, For 1 dose, Intra-Procedure (CV) 1531 (Contrast Given - Provider: Sujatha Flynn RN) polyethylene glycol (MIRALAX) packet 17 g 17 g, oral, Daily PRN, constipation, Starting on 11/19/22 at 195, Indications: constipation ramelteon (ROZEREM) tablet 8 mg 8 mg, oral, Nightly PRN, sleep, Starting on Sat11/19/22 at 195, Indications: Sleep-Onset Insomnia sodium chloride 0.9% flush 0.5-20 mL 0.5-20 mL, intra-catheter, As needed, line care, Starting on Sat11/19/22 at 1950, Flush volume based on line type and size. Flush before and after each use. documented in this encounter Orders Medications Ordered That Ernst ht Not Have Been Administered Count Last Ordered Date First Ordered Date acetaminophen (TYLENOL) tablet 650 mg 1 amLODIPine (NORVASC) tablet 2.5 mg 1 2022 aspirin enteric coated tablet 81 mg 2 11/19 atorvastatin (LIPITOR) tablet 80 mg 1 11/19 lisinopriL (PRINIVIL,ZESTRIL) tablet 40 mg 1 11/19/2022 metoprolol XL (TOPROL-XL) ex tended release tablet 50 mg 1 11/19/2022 polyethylene glycol (MIRALAX) packet 17 g 1 11/19/2022 ramelteon (ROZEREM) tablet 8 mg 1 sodium chloride 0.9% flush 0.5-20 mL 10/28 Diet Count Last Ordered Date First Orde red Date ADULT DISCHARGE DIET 1 11/22/2022 Nursing Count Last Ordered Date First Orde red Date DISCHARGE ACTIVITY 1 11/22/2022 DISCHARGE CALL PROVIDER 3 11/22/2022 DISCHARGE INSTRUCTIONS 11/22/2022 TELEMETRY MONITORING 11/19/2022 WEIGH PATIENT 1 11/19/2022 Admission Count Last Ordered Date First Orde red Date ADMIT TO INPATIENT 1 11/19/2022 Discharge Count Last Ordered Date First Orde red Date DISCHARGE PATIENT 1 11/22/2022 CORE MEASURES Count Last Ordered Date First Ord ered Date REASON FOR NO VTE PROPHYLAXIS AT ADMISSION 1 11/19/2022 ADT Patient Update Count Last Ordered Date Firs t Ordered Date PROVIDER TREATMENT TEAM 1 11/19/2022 documented in this encounter Care Teams Auto Self Service Station Attendant Relationship Specialty Start Date End Date Martin López MD [address] [address] PCP - General 06/27/12 Khalif Ca MD [address] [address] Referring Physician Cardiology 04/08/19 Francia Worley MD [address] [address] Surgeon Cardiothoracic Surgery 06/28/20 Tera Torre MD [address] [address] Consulting Physician Cardiology 06/28/20 documented as of this encounter
--- OUTSIDE RECORDS SUMMARY | 2024-04-20 00:13 | XMS_ITS | Encounter Summary ---
Author Organization [facility] Address [address] [facility] [address] [place] [address] Care Team Providers Care Cane Loader Name Role Phone Martin López MD Primary Care Provider Khalif Ca MD Unavailable [phone] Francia Worley MD Unavailable Tera Torre MD Unavailable [phone] Reason for Visit * Cardiology (Routine) - Closed Specialty Diagnoses / Procedures Referred By Contac t Referred To Contact Cardiology Imaging Diagnoses Palpitations Procedures 48 HR Holter Monitor MT XTRNL ECG & 48 HR RECORDING Martin López MD [address] [facility] [address] [place] [address] Phone: tel: fax: [facility] Cardiology [address] [place] [address] [address] [place] [address] Phone: tel: fax: Referral ID Status Reason Start Date Expiration Date Visits Re quested Visits Authorized [id number] Closed 10/16/2022 11/15/2023 1 1 Encounter Details Date Type Department Care Team (Late st Contact Info) Description 10/17/2022 1:30 PM CDT Ancillary Procedure [facility] Cardiology [address] [facility] [address] [place] [address] Palpitations Social History Tobacco Use Types Packs/Day Years [...] on file Legal Sex Male 9:13 PM [employer] Gender Identity Male 07/25/2023 3:40 PM CDT Sexual Orientation Straight 10/28/2019 9: 50 AM CDT documented as of this encounter Plan of Treatment Not on file documented as of this encounter Procedures Procedure Name Priority Date/Time Associated Diagnosis Comments HOLTER MONITOR 48 HR Routine 10/17/2022 1:45 PM CDT Palpitations documented in this encounter Results * 48 HR Holter Monitor (10/17/2022 1:45 PM CDT) Anatomical Region Laterality Modality Other Narrative 10/26/2022 4:32 PM CDT Images from the original result were not included. AMBULATORY HOUSING COORDINATOR REPORT Patient Name: Nathan Wagner Date of : 1945 ?? Requesting Physician: Martin López M.D. Date of [...] not report any symptoms. Nataliia Machado M.D., [facility] 10/26/22 Voice recognition software was used to complete this document, therefore, marine steam fitter helper variances may occur. us Martin López MD [facility] PRO CEDURES Final Result documented in this encounter Visit Diagnoses Diagnosis Palpitations documented in this encounter Care Teams Cane Loader Relationship Specialty Start Date End Date Martin López MD [address] [place] [id number] PCP - General 06/27/12 Khalif Ca MD [facility] [address] [place] [address] Referring Physician Cardiology 04/08/19 Francia Worley MD [facility] [address] [address] Surgeon Cardiothoracic Surgery 06/28/20 Tera Torre MD [facility] [address] [address] Consulting Physician Cardiology 06/28/20 documented as of this encounter
--- OUTSIDE RECORDS SUMMARY | 2024-04-20 00:13 | XMS_ITS | Encounter Summary ---
Author Organization [facility] Address [address] [place] [address] Phone Care Team Providers Care Fabrication Supervisor Name Role Phone Martin López MD Primary Care Provider Khalif Ca MD Unavailable [phone] Francia Worley MD Unavailable Tera Torre MD Unavailable Encounter Details Date Type Department Care Team (Late st Contact Info) Description 12/05/2022 10:15 AM CDT Office Visit [facility] Cardiology [address] [facility] [address] [place] [address] Tera Torre MD [facility] [place] [address] Paroxysmal atrial fibrillation (CMS/HCC) (HCC) (Primary Dx); Coronary artery disease involving [place] coronary artery of [place] heart without angina pectoris Social History Tobacco Use Types Packs/Day Years [...] on file Legal Sex Male 9:13 PM [employer] Gender Identity Male 07/25/2023 3:40 PM CDT Sexual Orientation Straight 10/28/2019 9: 50 AM CDT documented as of this encounter Last Filed Vital Signs Vital Sign Reading Time Taken Comments Blood Pressure 175/103 12/05/2022 10:09 AM CDT Pulse 51 12/05/2022 10:09 AM CDT Temperature - - Respiratory Rate - - Oxygen Saturation 99% 12/05/2022 10:09 AM CDT Inhaled Oxygen Concentration - - Weight 84.8 kg (187 lb) 12/05/2022 10:09 AM CDT Height 175.3 cm (5' 9 ) 12/05/2022 10:09 AM CDT Body Mass Index 27.62 12/05/2022 10:09 AM CDT documented in this encounter Patient Instructions * Patient Instructions* Zoe Mustafa RN - 12/05/2022 10:15 AM CDT Please call us if you have any questions or problems@ [phone]. Follow up with our office in 6 months. documented in this encounter Ordered Prescriptions Prescription Sig Dispense Quantity Refills Last Filled Start Date End Date sotaloL (BETAPACE) 80 mg tablet Take 1 tablet (80 mg total) by mouth 2 (two) times a day 60 tablet 11 12/05/2022 08/13/2023 documented in this encounter Progress Notes * Tera Torre MD - 12/05/2022 10:15 AM CDT Images from the original note were not included. [facility] Department of Medicine Cardiovascular Division Tera Torre M.D. [facility] [place] [address], [address] [place] [id number], [email or web address] Date: 12/05/2022 Primary care Physician Martin López MD [address] [place], [place] [id number] Patient Name: Nathan Wagner Date of : [...] with symptoms and status post sotalol load 11/15/2022 H. Pylori gastritis in mid , had upper GI bleed requiring blood transfusions INTERVAL HISTORY: We had the pleasure of seeing Nathan Wagner today [facility] for follow-up of his recent sotalol load. As you know, he is a pleasant 76 y.o. male who we last saw in the hospital for symptomatic atrial fibrillation with sotalol load. He has discussed fully was loaded with 80 mg twicedaily of sotalol with an appropriate ECG. Up titration was limited slightly by his bradycardia. Since we last saw him he has generally felt well. He had maybe 1 episode of atrial fibrillation in the night but otherwise has had no recurrent episodes. He has been tolerating the sotalol well. He denies any dizziness lightheadedness presyncope or syncopal episodes. Denies any chest pain pressure tightness. His blood pressure is elevated today but he has been checking on a frequent basis and is wellcontrolled at home. Overall he feels well and has no complaints today. He is tolerating anticoagulation well. CURRENT MEDICATIONS: Current Outpatient Medications: acetaminophen (TYLENOL) 325 mg tablet amLODIPine (NORVASC) 5 mg tablet apixaban (Eliquis) 5 mg tablet aspirin 81 mg enteric coated tablet atorvastatin (LIPITOR) 80 mg tablet lisinopriL (PRINIVIL,ZESTRIL) 40 mg tablet montelukast (SINGULAIR) 10 mg tablet travoprost (TRAVATAN Z) 0.004 % drops sotaloL (BETAPACE) 80 mg tablet PHYSICAL EXAMINATION: Vitals: 12/05/22 1009 BP: (!) 175/103 BP Location: Right arm Patient Position: Sitting Pulse: 51 SpO2: 99% Weight: 84.8 kg (187 lb) Height: 175.3 cm (5' 9 ) [...] No lower extremity edema. IMPRESSION AND PLAN: Symptomatic atrial fibrillation. He seems to be tolerating the sotalol well. It seems to be workingto reduce his atrial fibrillation burden quite significantly. I would like to continue this medication without change. I would like to continue his anticoagulation without change prefer if he has further symptoms of breakthrough symptoms he is to contact our office. Hypertension. His blood pressure is elevated today but he does provide a log that shows well-controlled blood pressures at home. He should continue his current medications without change. Coronary artery disease. He is having no significant symptoms of angina currently. He should continue his current medications and level of activity without change. I encouraged him to increase his physical activity as much as tolerated. Thank you for allowing me to participate in the care of this patient. We would be happy to see him back in 6 months time or sooner as needed. Please don't hesitate to reach out with any questions or concerns. Tera Torre M.D. tourism radio presenter CC: Martin López MD [phone] [address] documented in this encounter Plan of Treatment Not on file documented as of this encounter Visit Diagnoses Diagnosis Paroxysmal atrial fibrillation (CMS/HCC) (HCC)- Primary Atrial fibrillation Coronary artery disease involving [place] coronary artery of [place] heart without angina pectoris documented in this encounter Discontinued Medications Medication Sig Discontinue Reason Start Date End Da te sotaloL (BETAPACE) 80 mg tablet Take 1 tablet (80 mg total) by mouth 2 (two) times a day Reorder 11/22/2022 12/05/2022 documented as of this encounter Care Teams Fabrication Supervisor Relationship Specialty Start Date End Date Martin López MD [address] [address] PCP - General 06/27/12 Khalif Ca MD [address] [place] [address] Referring Physician Cardiology 04/08/19 Francia Worley MD [address] [place] [address] Surgeon Cardiothoracic Surgery 06/28/20 Tera Torre MD [address] [place] [address] Consulting Physician Cardiology 06/28/20 documented as of this encounter
--- OUTSIDE RECORDS SUMMARY | 2024-04-20 00:13 | XMS_ITS | Encounter Summary ---
Author Organization [facility] Address [address] [place] [address] Care Team Providers Care Continuous Improvement Intern Name Role Phone Martin López MD Primary Care Provider Khalif Ca MD Unavailable [phone] Francia Worley MD Unavailable Tera Torre MD Unavailable [phone] Encounter Details Date Type Department Care Team (Latest Contact Info) Description 03/05/2022 1:12 PM SENIOR JAVA PROGRAMMER ANALYST - 03/05/2022 11:59 PM SENIOR JAVA PROGRAMMER ANALYST Hospital Encounter [facility] Radiology [address] [place] [address] Discharge Disposition: Discharge to home or self [...] on file Legal Sex Male 9:13 PM SENIOR JAVA PROGRAMMER ANALYST Gender Identity Male 07/25/2023 3:40 PM CDT Sexual Orientation Straight 10/28/2019 9: 50 AM CDT documented as of this encounter Medications at Time of Discharge [...] or self care documented in this encounter Plan of Treatment Not on file documented as of this encounter Procedures Procedure Name Priority Date/Time Associated Diagnosis Comments XR CHEST 1 VIEW ED Urgent/IP Urgent 03/05/2022 2:01 PM SENIOR JAVA PROGRAMMER ANALYST documented in this encounter Results * XR Chest 1 View (03/05/2022 2:01 PM SENIOR JAVA PROGRAMMER ANALYST) Anatomical Region Laterality Modality Body, Chest N/A Computed Radiogr aphy 03/05/2022 3:05 PM SENIOR JAVA PROGRAMMER ANALYST Impressions 03/05/2022 3:26 PM SENIOR JAVA PROGRAMMER ANALYST Comparison is made to chest radiograph dated ??02/20/2022. Patient is status post median sternotomy and aortic valve replacement. Sternal wires intact, unchanged. Incidental azygos fissure, normal variant, noted. Left upper lobe parahilar nodule, correlating with groundglass opacity on PET/CT from 01/02/2022. Other groundglass opacities and mediastinal lymphadenopathy better characterized on CT from 01/02/2022. No pleural effusion. No pneumothorax. Stable cardiomediastinal silhouette Dictated by: aKl Beltran M.D. The radiology attending physician has personally reviewed this study, and had reviewed and/or edited this written report and agrees with it. Electronically signed by: Pipe Mercedes M.D. Narrative 03/05/2022 3:26 PM SENIOR JAVA PROGRAMMER ANALYST EXAMINATION: 1 view chest radiograph Procedure Note [...] it. Electronically signed by: Pipe Mercedes M.D. Dipak Frazier MD IMG XR PROCEDURES Final Re sult documented in this encounter Visit Diagnoses Not on filedocumented in this encounter Care Teams Continuous Improvement Intern Relationship Specialty Start Date End Date Martin López MD [address] [place] [address] PCP - General 06/27/12 Khalif Ca MD [address] [place] [address] Referring Physician Cardiology 04/08/19 Francia Worley MD [address] [place] [address] Surgeon Cardiothoracic Surgery 06/28/20 Tera Torre MD [address] [facility] [address] [place] [id number] Consulting Physician Cardiology 06/28/20 documented as of this encounter
--- OUTSIDE RECORDS SUMMARY | 2024-04-20 00:13 | XMS_ITS | Encounter Summary ---
Author Organization [facility] Address [address] [place] [address] Phone Care Team Providers Care Scalper Operator Name Role Phone Martin López MD Primary Care Provider Khalif Ca MD Unavailable [phone] Francia Worley MD Unavailable Tera Torre MD Unavailable [phone] Reason for Referral * Cardiology (Routine) - Closed Specialty Diagnoses / Procedures Referred By Contac t Referred To Contact Diagnoses Paroxysmal atrial fibrillation (CMS/HCC) (HCC) Procedures [facility] Mobile Cardiac Telemetry Event Monitor Tera Torre MD [address] [place] [address] Phone: tel: fax: [facility] Referral ID Status Reason Start Date Expiration Date Visits Re quested Visits Authorized [id number] Closed 09/19/2022 10/19/2023 1 1 Reason for Visit * Reason Onset Date Comments elevated HR 09/18/2022 Encounter Details Date Type Department Care Team (Late st Contact Info) Description 09/18/2022 Telephone [facility] Cardiology [address] [facility] 8th [place] [address] [place] [id number] Tera Torre MD [address] [place] [address] elevated HR Social History Tobacco Use Types Packs/Day Years [...] on file 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 If its back to normal, I would put on a monitor for 30 days. Spoke to pt re: update. Pulse rate was down to the 70s. Pt feels good and has no current symptoms. Pt amenable to monitor and advised pt that monitor will arrive via mail. No further questions at this time. * Telephone Encounter - Erin Casas RN - 09/18/2022 4:25 PM CDT Spoke to pt re: elevated HR. Per patient, he was sitting at home and preparing to leave not doing a lot of activity. Took BP andit was 120/78 and pulse was 150 and took readings again. Subsequent reading was 159/120, 161, and at 1615 it was 134/98, 139. Pt denies any symptoms that correlate w/ this tachycardia and BP readings. Pt also notes ED visit in Apr, but says this is different in quality than this ED visit. Upon inquiry, pt can't tell if rhythm is regular or not upon palpitation of pulse. Confirmed that pt takes Lisinopril 40 mg daily and metoprolol XL 25 mg daily. Informed pt that this advertising writer would be in touch with recs as received. No further questions at this time. * Telephone Encounter - Erin Casas RN - 09/18/2022 4:16 PM CDT LM on secure VM requesting return call. * Telephone Encounter - Viridiana Dailey - 09/18/2022 3:46 PM CDT Yelitza Pt called and he has a HR of 150. documented in this encounter Plan of Treatment Scheduled Orders Name Type Priority Associated Diagnoses Orde r Schedule [facility] Mobile Cardiac Telemetry Event Monitor Cardiac Services Routine Paroxysmal atrial fibrillation (CMS/HCC) (HCC) Expected: 10/20/2022, Expires: 03/22/2024 documented as of this encounter Visit Diagnoses Diagnosis Paroxysmal atrial fibrillation (CMS/HCC) (HCC)- Primary Atrial fibrillation documented in this encounter Care Teams Scalper Operator Relationship Specialty Start Date End Date Martin López MD [address] [place] [address] PCP - General 06/27/12 Khalif Ca MD [address] [place] [address] Referring Physician Cardiology 04/08/19 Francia Worley MD [address] [place] [address] Surgeon Cardiothoracic Surgery 06/28/20 Tera Torre MD [address] [place], [place] [id number] Consulting Physician Cardiology 06/28/20 documented as of this encounter
--- OUTSIDE RECORDS SUMMARY | 2024-04-20 00:13 | XMS_ITS | Encounter Summary ---
Author Organization [facility] Address [address] [place] [address] Phone Care Team Providers Care Ceramic Artist Name Role Phone Martin López MD Primary Care Provider Khalif Ca MD Unavailable [phone] Francia Worley MD Unavailable Tera Torre MD Unavailable [phone] Reason for Visit * Reason Onset Date Comments 48-hr holter results 10/26/2022 Encounter Details Date Type Department Care Team (Late st Contact Info) Description 10/26/2022 Telephone [facility] Cardiology [address] [facility] [address] [place] [address] Tera Torre MD [facility] [address] [place] [address] 48-hr holter results Social History Tobacco Use Types Packs/Day Years [...] on file 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 * Telephone Encounter - Erin Casas RN - 10/26/2022 9:52 AM CDT ----- Message from Shelley Duque sent at 10/26/2022 9:31 AM CDT ----- See attached reports documented in this encounter Plan of Treatment Not on file documented as of this encounter Visit Diagnoses Not on filedocumented in this encounter Care Teams Ceramic Artist Relationship Specialty Start Date End Date Martin López MD [facility] [address] [address] PCP - General 06/27/12 Khalif Ca MD [facility] [address] [address] Referring Physician Cardiology 04/08/19 Francia Worley MD [facility] [address] [address] Surgeon Cardiothoracic Surgery 06/28/20 Tera Torre MD [facility] [address] [address] Consulting Physician Cardiology 06/28/20 documented as of this encounter
--- OUTSIDE RECORDS SUMMARY | 2024-04-20 00:14 | XMS_ITS | Encounter Summary ---
Author Organization [facility] Address [address] [place] [address] Phone Care Team Providers Care Engineering Systems Analyst Name Role Phone Martin López MD Primary Care Provider Khalif Ca MD Unavailable [phone] Francia Worley MD Unavailable Tera Torre MD Unavailable [phone] Reason for Referral * Procedure (Routine) - Closed Specialty Diagnoses / Procedures Referred By Contac t Referred To Contact Pulmonology Diagnoses Pleural 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 Abnormal finding on lung imaging Procedures Pulmonary Function Test -[facility] U Adult PFT Lab- CAM-8D; Spirometry with Bronchodilator, Spirometry, Oxygen Assessment Titration, ABG, DLCO, Lung Volumes; Pleth with Airway Resistance; Room Air ABG; Spirometry Kvng Gross Chi, MD [address] [place] [address] Phone: tel: fax: Referral ID Status Reason Start Date Expiration Date Visits Re quested Visits Authorized [id number] Closed 01/29/2022 02/28/2023 12 12 Encounter Details Date Type Department Care Team (Late st Contact Info) Description 01/29/2022 Orders Only [facility] Pulmonary [address] [facility] Medicine 8th [place] [address] [place] [address] Tiroch, Shana Akosua, VIDEO NEWS EDITOR Pleural 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 (Primary Dx); Abnormal finding on lung imaging Social History Tobacco Use Types Packs/Day Years Used Date Smoking Tobacco: Never Smokeless Tobacco: Never Alcohol Use Standard Drinks/Week Comments Yes 0 (1 standard drink = 0.6 oz pur e alcohol) rare Sex and Gender Information Value Date Recorded Sex Assigned at Not on file 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 Gender Identity Male 07/25/2023 3:40 PM CDT Sexual Orientation Straight 10/28/2019 9: 50 AM CDT documented as of this encounter Plan of Treatment Not on file documented as of this encounter Results * Pulmonary Function Test - (02/20/2022 8:04 AM CDT) FVC PRE 4.58 L [facility] FVC %PRE PRED 115 % [facility] FEV1 PRE 3.75 L [facility] FEV1 %PRE PRED 126 % [facility] FEV1/FVC PRE 81.8 % [facility] FRC PL PRE 4.80 L [facility] FRC PL %PRE PRED 128 % [facility] RV PRE 2.47 L [facility] RV %PRE PRED 97 % [facility] TLC PRE 7.29 L [facility] TLC %PRE PRED 104 % [facility] DLCO PRE 28.8 ml/min/mmH g [facility] DLCO %PRE PRED 116 % [facility] FIO2 % 21.00 % [facility] PaO2 93.0 mmHg [facility] PaCO2 41.0 mmHg [facility] pH 7.45 [facility] A-aDO2 POC 5.0 mmHg [facility] METHGB % 1.1 % [facility] COHb POC 1.4 % [facility] HCO3 28.5 mEq/L [facility] Anatomical Region Laterality Modality PFT 02/20/2022 7:17 AM CDT Narrative 02/23/2022 4:10 PM CDT Table formatting from the original result was not included. [facility] Division of Pulmonary & Critical Care Medicine [address] [place] [address]; [place] [address]; [place], [place] [address]; [phone] Pulmonary Function Laboratory Pulmonary Stress Test Simple/Oxygen Assessment Patient: Nathan Wagner Date: 02/20/2022 : 1945 Ht: 69.5 IN Wt: 180 LBS Time (min) Distance (ft)/ Issa O2 L/M SpO2 HR Bambi* BP FEV1 % Pred Rest: ??RA 98 64 0 177/102 3.75 126 % ? Walk/Bike: 1 ??RA 98 75 0 ? 2 ??RA 98 77 0 ? 3 ??RA 98 77 0 ? 4 ??RA 97 79 0 ? 5 ??RA 98 79 0 ? 6 min 0 sec ??RA 97 79 0 ? Recovery: 1 ??RA 98 68 0 180/107 3.73 125% 3 ??RA 98 66 0 ?*Bambi rate of perceived exertion (1-10 dyspnea scale) ??Patrick, CHEST 2003; [id number] Walk Test Summary: Six Minute Walk Distance: 1265 ft Six-minute Walk Work [distance (m) x body wt (kg)]: 10698 kg.m (normal >60,000kg.m) Oxygen required to maintain SpO2 greater than 90% during six minutes of walkin L/M Comments: PER PATIENT BP IS NORMAL FOR HIM FOR A DOCTOR APPOINTMENT. Interpretation: Breathing room air, SpO2 is normal at rest and during exercise sufficient to increase pulse from 64 to 79 b/min, SpO2 is stable. On this basis, SpO2 is adequate at rest breathing room air and while walking breathing room air. This level of exercise is associated with no significant change of FEV1. ?? Dave Perez M.D. By signing this report, the attending pulmonary physician certifies that he/she has personally reviewed and interpreted the graphic and numerical data associated with this pulmonary function study and has reviewed and /or edited a preliminary draft report and agrees with the written final report. PFT performed at:->[facility] U Adult PFT Lab- CAM-8D Procedure:->Spirometry with Bronchodilator Procedure:->Spirometry Procedure:->Oxygen Assessment Titration Procedure:->ABG Procedure:->DLCO Procedure:->Lung Volumes Lung Volumes via:->Pleth with Airway Resistance ABG:->Room Air ABG DLCO:->Spirometry us Kvng Gross MD PFT ORDERABLES Final Resu lt documented in this encounter Visit Diagnoses Diagnosis Pleural 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- Primary Pleurisy without mention of effusion or current tuberculosis Abnormal finding on lung imaging Pleural 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 Pleurisy without mention of effusion or current tuberculosis Abnormal finding on lung imaging documented in this encounter Care Teams Engineering Systems Analyst Relationship Specialty Start Date End Date Martin López MD [address] [place] [address] PCP - General 06/27/12 Khalif Ca MD [address] [address] Referring Physician Cardiology 04/08/19 Francia Worley MD [address] [facility] [address] [place] [address] Surgeon Cardiothoracic Surgery 06/28/20 Tera Torre MD [address] [facility] [address] [place] [address] Consulting Physician Cardiology 06/28/20 documented as of this encounter
--- OUTSIDE RECORDS SUMMARY | 2024-04-20 00:14 | XMS_ITS | Encounter Summary ---
Author Organization [facility] Address [address] [place] [address] Phone Care Team Providers Care Drop Hammer Set Up Operator Name Role Phone Martin López MD Primary Care Provider Khalif Ca MD Unavailable [phone] Francia Worley MD Unavailable Tera Torre MD Unavailable [phone] Reason for Referral * Diagnostic Imaging (Routine) - Closed Specialty Diagnoses / Procedures Referred By Contac t Referred To Contact Diagnoses Pleural plaque Procedures XR Chest Pa Lateral 2 Views Kvng Gross Chi, MD [address] [place] [address] Phone: tel: fax: [address] [address] Referral ID Status Reason Start Date Expiration Date Visits Re quested Visits Authorized [id number] Closed 02/06/2022 03/08/2023 1 1 Encounter Details Date Type Department Care Team (Late st Contact Info) Description 02/06/2022 Orders Only [facility] Pulmonary [address] [facility] Advanced Medicine 8th [place] [address] [place] [address] Kvng Gross Chi, MD [address] [place] [address] Pleural plaque (Primary Dx) Social History Tobacco Use Types Packs/Day Years Used Date Smoking Tobacco: Never Smokeless Tobacco: Never Alcohol Use Standard Drinks/Week Comments Yes 0 (1 standard drink = 0.6 oz pur e alcohol) rare Sex and Gender Information Value Date Recorded Sex Assigned at Not on file 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 In the interval, no change. Patient is post median sternotomy for aortic valve replacement. The lungs are clear. Specifically, no pulmonary edema or pneumonia. No pleural effusion or pneumothorax. Heart size and mediastinal contour are normal. Electronically signed by: Obie Ware M.D. Narrative 02/20/2022 10:15 AM CDT EXAMINATION: 2 view chest radiograph Procedure Note Obie Ware MD - 02/20/2022 EXAMINATION: 2 view chest radiograph IMPRESSION: Comparison made to prior study of 07/20/2020 at 9:27 AM. In the interval, no change. Patient is post median sternotomy for aortic valve replacement. The lungs are clear. Specifically, no pulmonary edema or pneumonia. No pleural effusion or pneumothorax. Heart size and mediastinal contour are normal. Electronically signed by: Obie Ware M.D. Kvng Gross MD IMG XR PROCEDURES Final Re sult documented in this encounter Visit Diagnoses Diagnosis Pleural plaque- Primary Pleural plaque documented in this encounter Care Teams Drop Hammer Set Up Operator Relationship Specialty Start Date End Date Martin López MD [address] [facility] [address] [place] [address] PCP - General 06/27/12 Khalif Ca MD [address] [facility] [address] [place] [address] Referring Physician Cardiology 04/08/19 Francia Worley MD [address] [facility] [address] [place] [address] Surgeon Cardiothoracic Surgery 06/28/20 Tera Torre MD [address] [facility] [address] [place] [address] Consulting Physician Cardiology 06/28/20 documented as of this encounter
--- OUTSIDE RECORDS SUMMARY | 2024-04-20 00:14 | XMS_ITS | Encounter Summary ---
Author Organization [facility] Address [address] [place] [address] Care Team Providers Care Casualty Claim Adjuster Name Role Phone Martin López MD Primary Care Provider Khalif Ca MD Unavailable Francia Worley MD Unavailable Tera Torre MD Unavailable [phone] Reason for Referral * MRI/CAT/PET Scan (Routine) - Closed Specialty Diagnoses / Procedures Referred By Contac t Referred To Contact Radiology Diagnoses Pleural 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 Abnormal findings on diagnostic imaging of other specified body structures Procedures PET/CT FDG Skull to Thigh Jade Hameed PA Phone: tel: fax: [address] [address] Referral ID Status Reason Start Date Expiration Date Visits Re quested Visits Authorized [id number] Closed 12/22/2021 01/21/2023 2 2 Reason for Visit * MRI/CAT/PET Scan (Routine) - Closed Specialty Diagnoses / Procedures Referred By Contac t Referred To Contact Radiology Diagnoses Pleural 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 Abnormal findings on diagnostic imaging of other specified body structures Procedures PET/CT FDG Skull to Thigh Jade Hameed PA Phone: tel: fax: [address] [address] Referral ID Status Reason Start Date Expiration Date Visits Re quested Visits Authorized [id number] Closed 12/22/2021 01/21/2023 2 2 Encounter Details Date Type Department Care Team (Latest Contact Info) Description 01/02/2022 10:02 AM CDT - 01/02/2022 11:59 PM CDT Hospital Encounter 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 Gender Identity Male 07/25/2023 3:40 PM CDT [...] 1 drop into both eyes nightly 03/31/2015 clobetasol (TEMOVATE) 0.05 % external solutionIndicati ons:Dermatosis of the Scalp Apply 1 application topically 2 (two) times a day as needed 04/24/2019 2 lisinopriL (PRINIVIL,ZESTRI L) 20 mg tablet Take [...] Procedure Name Priority Date/Time Associated Diagnosis Comments PET/CT FDG SKULL TO THIGH Schedule Routine, Read Routine (OP Routine) 01/02/2022 11:50 AM CDT Pleural 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 Abnormal findings on diagnostic imaging of other specified body structures documented in this encounter Results * PET/CT FDG Skull to Thigh (01/02/2022 11:50 AM CDT) Anatomical Region Laterality Modality N/A Positron Emissio n Tomography (PET) 01/02/2022 4:36 PM CDT Impressions 01/02/2022 6:54 PM CDT 1. ??Redemonstration of multiple groundglass opacities in bilateral lungs, with mild FDG uptake. ??These are indeterminate and consideration stability since CT dated 05/03/20, may represent multifocal low-grade adenocarcinoma spectrum versus inflammatory disease. 2. ??Hypermetabolic left supraclavicular and multiple mediastinal lymph nodes, essentially stable in size since 05/03/2020, likely inflammatory, although malignancy cannot be entirely excluded. Recommend continued attention on follow-up. ?? Dictated by: John Gracia MD The radiology attending physician has personally reviewed this study, and had reviewed and/or edited this written report and agrees with it. Electronically signed by: Brenda Rahman MD, Ph.D Narrative 01/02/2022 6:54 PM CDT EXAMINATION: TUMOR FDG-PET/CT IMAGING DATE OF STUDY: ??01/02/2022 SCANNER: RADIOPHARMACEUTICAL: 16.0 mCi F-18 Fluorodeoxyglucose (FDG) i.v. 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 ??The study is requested for diagnosis/initial staging. Initial treatment strategy. TECHNIQUE: ?? The patient's fasting blood glucose level, measured by glucometer before injection of FDG, was 90 mg/dL. ??MD-Gastroview was not given orally. ??After intravenous administration of FDG, noncontrast CT images were obtained for attenuation correction and for fusion with emission PET images to allow for anatomical localization of PET findings. ??Emission PET images were then obtained. ??The study was interpreted on the [employer] workstation. ??The mean liver SUV (reported for software quality assurance specialist purposes) is 3.0. ?? The total scanned area was skull base to the proximal thighs. ??Images of the body were obtained starting 67 minutes after injection of tracer. COMPARISON: CT chest dated 12/18/21. FINDINGS: Moderate to intensely FDG avid left supraclavicular lymph node, maximum SUV 6.6, during 5 x 5 mm (image 73/323). Multiple moderate to intensely FDG avid mediastinal lymph nodes, some of which are enlarged, involving the prevascular, right upper and lower paratracheal, left lower paratracheal, subcarinal and bilateral hilar lymph nodes are seen, for example subcarinal lymph node, maximum SUV 11.0, measuring 2.8 x 1.1 cm and right lower paratracheal lymph node, maximum SUV 9.3, measuring 1.4 x 0.8 cm (image 98/328). These lymph nodes are anatomically stable since 05/03/2020. Demonstration of multiple groundglass nodules which demonstrate FDG uptake less than the mediastinal blood pool, for example 8 mm in the right upper lobe (image 96/323), and approximately 1 cm nodules in the superior segment of both the lower lobes (image 109/323). Additional groundglass nodules are stable and are below PET resolution for characterization, for example 3 mm nodule in the right upper lobe (image 100/323) and 6 mm in the superior segment of the left lower lobe (image 102/323). No hypermetabolic pleural thickening seen. Mild FDG uptake is seen in the body of the T3 thoracic vertebral body, maximum SUV 3.9 (image 77/323). ??This most likely represents statistical noise. Diffusely increased FDG uptake in the stomach without CT correlate, maximum SUV 6.6, most likely related to reflux esophagitis. There is a moderately FDG avid portacaval lymph node, maximum SUV 5.8, 1.2 x 0.4 cm (image 166/323), anatomically stable since 09/05/21. Additional CT findings: Median sternotomy. The sternotomy wires are well aligned. CABG. Right maxillary sinus mucosal retention cyst. ??Non-FDG avid left renal cyst, measuring 6.4 x 4.6 cm. ??Atherosclerotic calcification of the abdominal aorta and its branches. ??Bilateral gynecomastia. Procedure Note Brenda Rosa MD PhD - 01/02/2022 EXAMINATION: TUMOR FDG-PET/CT IMAGING DATE OF STUDY: 01/02/2022 SCANNER: RADIOPHARMACEUTICAL: 16.0 mCi F-18 Fluorodeoxyglucose (FDG) i.v. 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 The study is requested for diagnosis/initial staging. Initial treatment strategy. TECHNIQUE: The patient's fasting blood glucose level, measured by glucometer before injection of FDG, was 90 mg/dL. MD-Gastroview was not given orally. After intravenous administration of FDG, noncontrast CT images were obtained for attenuation correction and for fusion with emission PET images to allow for anatomical localization of PET findings. Emission PET images were then obtained. The study was interpreted on the [employer] workstation. The mean liver SUV (reported for software quality assurance specialist purposes) is 3.0. The total scanned area was skull base to the proximal thighs. Images of the body were obtained starting 67 minutes after injection of tracer. COMPARISON: CT chest dated 12/18/21. FINDINGS: Moderate to intensely FDG avid left supraclavicular lymph node, maximum SUV 6.6, during 5 x 5 mm (image 73/323). Multiple moderate to intensely FDG avid mediastinal lymph nodes, some of which are enlarged, involving the prevascular, right upper and lower paratracheal, left lower paratracheal, subcarinal and bilateral hilar lymph nodes are seen, for example subcarinal lymph node, maximum SUV 11.0, measuring 2.8 x 1.1 cm and right lower paratracheal lymph node, maximum SUV 9.3, measuring 1.4 x 0.8 cm (image 98/328). These lymph nodes are anatomically stable since 05/03/2020. Demonstration of multiple groundglass nodules which demonstrate FDG uptake less than the mediastinal blood pool, for example 8 mm in the right upper lobe (image 96/323), and approximately 1 cm nodules in the superior segment of both the lower lobes (image 109/323). Additional groundglass nodules are stable and are below PET resolution for characterization, for example 3 mm nodule in the right upper lobe (image 100/323) and 6 mm in the superior segment of the left lower lobe (image 102/323). No hypermetabolic pleural thickening seen. Mild FDG uptake is seen in the body of the T3 thoracic vertebral body, maximum SUV 3.9 (image 77/323). This most likely represents statistical noise. Diffusely increased FDG uptake in the stomach without CT correlate, maximum SUV 6.6, most likely related to reflux esophagitis. There is a moderately FDG avid portacaval lymph node, maximum SUV 5.8, 1.2 x 0.4 cm (image 166/323), anatomically stable since 09/05/21. Additional CT findings: Median sternotomy. The sternotomy wires are well aligned. CABG. Right maxillary sinus mucosal retention cyst. Non-FDG avid left renal cyst, measuring 6.4 x 4.6 cm. Atherosclerotic calcification of the abdominal aorta and its branches. Bilateral gynecomastia. IMPRESSION: 1. Redemonstration of multiple groundglass opacities in bilateral lungs, with mild FDG uptake. These are indeterminate and consideration stability since CT dated 05/03/20, may represent multifocal low-grade adenocarcinoma spectrum versus inflammatory disease. 2. Hypermetabolic left supraclavicular and multiple mediastinal lymph nodes, essentially stable in size since 05/03/2020, likely inflammatory, although malignancy cannot be entirely excluded. Recommend continued attention on follow-up. Dictated by: John Gracia MD The radiology attending physician has personally reviewed this study, and had reviewed and/or edited this written report and agrees with it. Electronically signed by: Brenda Rahman MD, Ph.D Jade BOYLE IMG PET PROCEDURES Donna l Result documented in this encounter Visit Diagnoses Diagnosis Pleural 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 Pleurisy without mention of effusion or current tuberculosis Abnormal findings on diagnostic imaging of other specified body structures documented in this encounter Administered Medications Inactive Administered Medications - up to 3 most recent administrations Medication Order MAR Action Action Date Dose Rate Site fludeoxyglucose F-18 (FDG) injection 16.01 millicurie 16.01 millicurie, intravenous, Once in imaging, radiopharmaceutical , Starting on Sat01/02/22 at 1020, For 1 dose Given 01/02/2022 10:20 AM CDT 16.01 millicuries Right Antecubital documented in this encounter Orders Medications Ordered That Ernst ht Not Have Been Administered Count Last Ordered Date First Ordered Date fludeoxyglucose F-18 (FDG) i njection 16.01 millicurie 1 01/02/2022 documented in this encounter Care Teams Casualty Claim Adjuster Relationship Specialty Start Date End Date Martin López MD [address] [place] [address] PCP - General 06/27/12 Khalif Ca MD [address] [address] Referring Physician Cardiology 04/08/19 Francia Worley MD [address] [place] [address] Surgeon Cardiothoracic Surgery 06/28/20 Tera Torre MD [address] [place] [address] Consulting Physician Cardiology 06/28/20 documented as of this encounter
--- OUTSIDE RECORDS SUMMARY | 2024-04-20 00:14 | XMS_ITS | Encounter Summary ---
Author Organization [facility] Address [address] [facility] [address] [place] [address] Phone Care Team Providers Care Stock Receiver Name Role Phone Martin López MD Primary Care Provider Khalif Ca MD Unavailable [phone] Francia Worley MD Unavailable Tera Torre MD Unavailable [phone] Reason for Referral * Procedure (Routine) - Closed Specialty Diagnoses / Procedures Referred By Contac t Referred To Contact Pulmonology Diagnoses Pleural 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 Abnormal finding on lung imaging Procedures Pulmonary Function Test -[facility] Adult PFT Lab- CAM-8D; Spirometry with Bronchodilator, Spirometry, Oxygen Assessment Titration, ABG, DLCO, Lung Volumes; Pleth with Airway Resistance; Room Air ABG; Spirometry Kvng Gross Chi, MD [address] [place] [address] Phone: tel: fax: Referral ID Status Reason Start Date Expiration Date Visits Re quested Visits Authorized [id number] Closed 01/29/2022 02/28/2023 12 12 Reason for Visit * Consultation (Routine) - Closed Specialty Diagnoses / Procedures Referred By Contac t Referred To Contact Pulmonary Disease / Pulmonology Diagnoses Pleural 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 Abnormal finding on lung imaging Marino Clinton PA [address] [facility] [address] [place] [address] Phone: tel: fax: Lee Arnold MD [address] [place] [address] Phone: tel: fax: Referral ID Status Reason Start Date Expiration Date V isits Requested Visits Authorized [id number] Closed Specialty Services Required 02/05/2022 02/15/2023 12 12 Encounter Details Date Type Department Care Team (Latest Contact Info) Description 02/20/2022 7:06 AM CDT - 02/20/2022 8:09 AM CDT Hospital Encounter [facility] Pulmonary [address] 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 Gender Identity Male 07/25/2023 3:40 PM CDT [...] Procedure Name Priority Date/Time Associated Diagnosis Comments PULMONARY FUNCTION TEST (PFT) Routine 02/20/2022 8:04 AM CDT Pleural 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 Abnormal finding on lung imaging documented in this encounter Results * Pulmonary Function Test - (02/20/2022 8:04 AM CDT) FVC PRE 4.58 L [facility] FVC %PRE PRED 115 % [facility] FEV1 PRE 3.75 L [facility] FEV1 %PRE PRED 126 % [facility] FEV1/FVC PRE 81.8 % [facility] FRC PL PRE 4.80 L [facility] FRC PL %PRE PRED 128 % [facility] RV PRE 2.47 L [facility] RV %PRE PRED 97 % [facility] TLC PRE 7.29 L [facility] TLC %PRE PRED 104 % [facility] DLCO PRE 28.8 ml/min/mmH g [facility] DLCO %PRE PRED 116 % [facility] FIO2 % 21.00 % [facility] PaO2 93.0 mmHg [facility] PaCO2 41.0 mmHg [facility] pH 7.45 [facility] A-aDO2 POC 5.0 mmHg [facility] METHGB % 1.1 % [facility] COHb POC 1.4 % [facility] HCO3 28.5 mEq/L [facility] Anatomical Region Laterality Modality PFT 02/20/2022 7:17 AM CDT Narrative 02/23/2022 4:10 PM CDT Table formatting from the original result was not included. [facility] Division of Pulmonary & Critical Care Medicine [address] [place] [address]; [place] [address]; [place], [place] ??[address]; [phone] Pulmonary Function Laboratory Pulmonary Stress Test Simple/Oxygen [...] Work [distance (m) x body wt (kg)]: 39878 kg.m (normal >60,000kg.m) Oxygen required to maintain [...] with the written final report. PFT performed at:->[facility] Adult PFT Lab- CAM-8D Procedure:->Spirometry with Bronchodilator Procedure:->Spirometry Procedure:->Oxygen Assessment Titration Procedure:->ABG Procedure:->DLCO Procedure:->Lung Volumes Lung Volumes via:->Pleth with Airway Resistance ABG:->Room Air ABG DLCO:->Spirometry Kvng Gross MD PFT ORDERABLES Final Resu lt documented in this encounter Visit Diagnoses Diagnosis Pleural 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 Pleurisy without mention of effusion or current tuberculosis Abnormal finding on lung imaging documented in this encounter Care Teams Stock Receiver Relationship Specialty Start Date End Date Martin López MD [address] [facility] [address] [place] [address] PCP - General 06/27/12 Khalif Ca MD [address] [address] Referring Physician Cardiology 04/08/19 Francia Worley MD [address] [id number] Surgeon Cardiothoracic Surgery 06/28/20 Tera Torre MD [address] [facility] [address] [place] [address] Consulting Physician Cardiology 06/28/20 documented as of this encounter
--- OUTSIDE RECORDS SUMMARY | 2024-04-20 00:14 | XMS_ITS | Encounter Summary ---
Author Organization [facility] Address [address] [place] [address] Phone Care Team Providers Care Artificial Teeth Inspector Name Role Phone Martin López MD Primary Care Provider Khalif Ca MD Unavailable [phone] Francia Worley MD Unavailable Tera Torre MD Unavailable [phone] Reason for Visit * Reason Onset Date Comments cardiac risk assess dental prophy 10/18/2020 Encounter Details Date Type Department Care Team (Late st Contact Info) Description 10/18/2020 Telephone [facility] Cardiology [address] 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 * Telephone Encounter - Tera Torre MD - 10/18/2020 1:07 PM CDT He can have his teeth cleaned. I usually wait 3 months but he needs abx proph * Telephone Encounter - Shima Colbert - 10/18/2020 8:35 AM CDT Yelitza Pls see encounter from -.Leander from Dr. Ike Dias's office would like A call back to discuss if its safe for pt to get his teeth cleaned. She said sometimes after open heart surgery pts need towait 6 months before they get any dental work done. Pls call Leander back documented in this encounter Plan of Treatment Not on file documented as of this encounter Visit Diagnoses Not on filedocumented in this encounter Care Teams Artificial Teeth Inspector Relationship Specialty Start Date End Date Martin López MD [facility] [address] [address] PCP - General 06/27/12 Khalif Ca MD [address] [address] Referring Physician Cardiology 04/08/19 Francia Worley MD [address] [address] Surgeon Cardiothoracic Surgery 06/28/20 Tera Torre MD [address] [phone] Consulting Physician Cardiology 06/28/20 documented as of this encounter
--- OUTSIDE RECORDS SUMMARY | 2024-04-20 00:14 | XMS_ITS | Encounter Summary ---
Author Organization [facility] Address [address] [place] [address] Phone Care Team Providers Care Companion Caregiver Name Role Phone Martin López MD Primary Care Provider Khalif Ca MD Unavailable Francia Worley MD Unavailable Tera Torre MD Unavailable [phone] Reason for Visit * Reason Onset Date Comments post sx restrictions inquiry 09/21/2020 Encounter Details Date Type Department Care Team (Late st Contact Info) Description 09/21/2020 Telephone [facility] Cardiology [address] [facility] 8th [place] [address] [place] [address] Tera Torre MD [address] [place] [address] post sx restrictions inquiry Social History Tobacco Use Types Packs/Day Years Used Date Smoking Tobacco: Never Smokeless Tobacco: Never Alcohol Use Standard Drinks/Week Comments Yes 0 (1 standard drink = 0.6 oz pur e alcohol) rare Sex and Gender Information Value Date Recorded Sex Assigned at Not on file 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 * Telephone Encounter - Tera Torre MD - 09/23/2020 2:17 PM CDT No restrictions * Telephone Encounter - Jaelyn Keith RN - 09/21/2020 3:49 PM CDT Gen card pt. Pt had open and has been following Dr. Torre in [facility] cards clinic. Last appointment 08/03. * Telephone Encounter - Nubia Herrera - 09/21/2020 3:30 PM CDT Yelitza Pt called wants to know if he is still under any restrictions following his surgery a few months ago, please call. documented in this encounter Plan of Treatment Not on file documented as of this encounter Visit Diagnoses Not on filedocumented in this encounter Care Teams Companion Caregiver Relationship Specialty Start Date End Date Martin López MD [address] [place] [address] PCP - General 06/27/12 Khalif Ca MD [address] [place] [address] Referring Physician Cardiology 04/08/19 Francia Worley MD [address] [place] [address] Surgeon Cardiothoracic Surgery 06/28/20 Tera Torre MD [address] [facility] [address] [place] [id number] Consulting Physician Cardiology 06/28/20 documented as of this encounter
--- OUTSIDE RECORDS SUMMARY | 2024-04-20 00:14 | XMS_ITS | Encounter Summary ---
Author Organization [facility] Address [address] [facility] [address] [place] [id number] Care Team Providers Care Test Borer Helper Name Role Phone Martin López MD Primary Care Provider Khalif Ca MD Unavailable [phone] Francia Worley MD Unavailable Tera Torre MD Unavailable [phone] Reason for Visit * Reason Comments COVID-19 EVALUATION Encounter Details Date Type Department Care Team (Latest Contact Info) Description 04/25/2021 10:30 AM INCOME TAX CONSULTANT Clinical Support [facility] [address] [address] Close exposure to COVID-19 virus (Primary Dx) Social History Tobacco Use Types Packs/Day Years Used Date Smoking Tobacco: Never Smokeless Tobacco: Never Alcohol Use Standard Drinks/Week Comments Yes 0 (1 standard drink = 0.6 oz pur e alcohol) rare Sex and Gender Information Value Date Recorded Sex Assigned at Not on file 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 Gender Identity Male 07/25/2023 3:40 PM CDT Sexual Orientation Straight 10/28/2019 9: 50 AM CDT documented as of this encounter Progress Notes * Jerrica Spangler MA - 04/25/2021 10:30 AM CST Pt presents to office for covid screening due to recent exposure Verified pt is asymptomatic Specimen collected ME TAX CONSULTANT documented in this encounter Plan of Treatment Not on file documented as of this encounter Procedures Procedure Name Priority Date/Time Associated Diagnosis Comments COVID-19 POC Routine 04/25/2021 10:28 AM INCOME TAX CONSULTANT Close exposure to COVID-19 virus documented in this encounter Results * COVID-19 POC (04/25/2021 10:28 AM INCOME TAX CONSULTANT) COVID-19 RNA PCR POC Negative Not Detected, Negative, Undetected [facility] COVID-19 Ag POC (BD Veritor) Presumptive Negative Presumptive Negative, Invalid [facility] 04/25/2021 10:2 8 AM INCOME TAX CONSULTANT Monica Sampson EVALUATION SPECIALIST POINT OF CARE TEST ORDERABLES Final Result Performing Organization Address City/State/[facility] Co de Phone Number [facility] [address] documented in this encounter Visit Diagnoses Diagnosis Close exposure to COVID-19 virus- Primary documented in this encounter Care Teams Test Borer Helper Relationship Specialty Start Date End Date Martin López MD [address] [address] PCP - General 06/27/12 Khalif Ca MD [address] [address] Referring Physician Cardiology 04/08/19 Francia Worley MD [address] [place] [address] Surgeon Cardiothoracic Surgery 06/28/20 Tera Torre MD [address] [place] [address] Consulting Physician Cardiology 06/28/20 documented as of this encounter
--- OUTSIDE RECORDS SUMMARY | 2024-04-20 00:14 | XMS_ITS | Encounter Summary ---
Author Organization [facility] Address [address] [place] [address] Phone Care Team Providers Care Monomer Recovery Supervisor Name Role Phone Martin López MD Primary Care Provider Khalif Ca MD Unavailable [phone] Francia Wroley MD Unavailable Tera Torre MD Unavailable [phone] Reason for Visit * Reason Onset Date Comments elevated BP per patient 11/08/2020 Encounter Details Date Type Department Care Team (Late st Contact Info) Description 11/08/2020 Telephone [facility] Cardiology [address] [facility] 8th [place] [address] [place] [address] Tera Torre MD [address] [place] [address] elevated BP per patient Social History Tobacco Use Types Packs/Day Years Used Date Smoking Tobacco: Never Smokeless Tobacco: Never Alcohol Use Standard Drinks/Week Comments Yes 0 (1 standard drink = 0.6 oz pur e alcohol) rare Sex and Gender Information Value Date Recorded Sex Assigned at Not on file 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 Submitted [employer] BP flowsheet for completion in 7 Days. * Telephone Encounter - Tera Torre MD - 11/08/2020 12:56 PM CDT Lets wait another week and then we can increase if still elevated * Telephone Encounter - Shima Colbert - 11/08/2020 10:57 AM CDT Yelitza Pt said the new bp medication lisinopril is not working. bp 182/98 59 Pls call pt back to discuss documented in this encounter Plan of Treatment Not on file documented as of this encounter Visit Diagnoses Not on filedocumented in this encounter Care Teams Monomer Recovery Supervisor Relationship Specialty Start Date End Date Martin López MD [address] [address] PCP - General 06/27/12 Khalif Ca MD [address] [address] Referring Physician Cardiology 04/08/19 Francia Worley MD [facility] [address] [address] Surgeon Cardiothoracic Surgery 06/28/20 Tera Torre MD [address] [address] Consulting Physician Cardiology 06/28/20 documented as of this encounter
--- OUTSIDE RECORDS SUMMARY | 2024-04-20 00:14 | XMS_ITS | Encounter Summary ---
Author Organization [facility] Address [address] [place] [address] Care Team Providers Care Product Engineering Manager Name Role Phone Martin López MD Primary Care Provider Khalif Ca MD Unavailable Francia Worley MD Unavailable Tera Torre MD Unavailable [phone] Encounter Details Date Type Department Care Team (Late st Contact Info) Description 03/02/2022 Telephone [facility] Interventional Pulmonology [address] [place], [place] [id number] Tali Russo RN Social History Tobacco Use Types Packs/Day Years Used Date Smoking Tobacco: Former Cigarettes Q uit: 1970 Smokeless Tobacco: Never Alcohol Use Standard Drinks/Week Comments Yes 0 (1 standard drink = 0.6 oz pur e alcohol) rare AUDIT-C Answer Date Recorded Q1: How often do you have a drink containing alc ohol? 2-4 times a month 02/22/2022 Q2: How many drinks containi ng alcohol do you have on a typical day when you are drinking? 1 or 2 02/22/2022 Q3: How often do you have si x or more drinks on one occasion? 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 I asked the patient the following screening questions prior to the pre-procedure instructions: 1.Have you traveled outside the [place] in the last 6 months? No 2. Have you been exposed to anyone who is sick in the last 30 days?No 3. Have you been exposed to or tested positive for COVID-19 within the last 10 days?No 4.Have you tested positive for monkeypox within the last 28 days or are you waiting for a monkeypoxtest result? No 5. Are you having any of the following? None of these Pre-procedure instructions: The patient stated that they did receive their pre-procedure instructions in the mail, email, or MyChart. Instructed the patient to arrive at [facility] Admitting/Registration Office on [facility] on Saturday03/05/22 at 1230. 3. Instructed patient that if patient will be receiving sedation they will not be able to eat or drink anything after midnight on 03/04/22 but may take sips of water with their AM medications (except blood thinner per discussion below). 4. Patient stated patient does not use oxygen at home. If the patient uses home oxygen, even if they only use oxygen during sleep periods, they are to bring enough home oxygen supply to get themselves to and from [facility]. 5. Patient stated that patient does not use a CPAP or BIPAP device. Instructed patient, if they usea CPAP or BIPAP, to bring in their device or bring documentation of their CPAP/BIPAP settings with them to their appointment. 6. The patient will need a school boat driver or will need to arrange their own transportation home after theirprocedure. Patient stated patient does have a ride home after procedure. Emphasized that departmental staff will confirm transportation prior to the procedure. Further emphasized that the patient will not be able to drive themselves home after their procedure if they receive any sedation and/or opioids. Instructed patient/family that if a transportation service is used for this appointment that the patient/family need to provide the Interventional Pulmonology staff with the name and the phone number of the transportation service used. 7. Patient confirmed that the patient does have some one who will stay with them for at least 24 hours post discharge. Emphasized that, for their safety, the patient may have to be admitted for 23 hours post procedure if they do not have some one who will stay with them for at least 24 hours post discharge. 8. The patient will need to bring a list of their current home medications including all herbal supplements and all non-prescription/over the counter medications. 9. Patient stated that patient does take anticoagulants. If the patient stated they do take anticoagulants, the anticoagulant taken is Asprin 81. 10. Patient stated that they are not diabetic. If insulin dependent diabetic, the patient may take 1/2 of their PM insulin dose the evening prior to their procedure. If non-insulin dependent, they are to hold their oral diabetic medications the day of their procedure. The patient is also to check their finger stick blood glucose the morning of their procedure if they are diabetic. 11. Patient confirmed that the patient and their family are familiar on the location of the [facility] Admitting Office for pre- procedure registration and any lab work that may be ordered. Discussed that the patient is not to go to the [facility] for their appointment. Confirmed they are aware of what time to arrive at the [facility] Admitting Office. 12. I reviewed the following [facility] Visitor Policy that was updated 07/2021 with patient : A. Each patient is only allowed two visitors for an outpatient procedure/appointment. B. Visitors will be screened upon arrival to the hospital with the aforementioned coronavirus questions. Any yes answer to questions will result in the visitor being denied entrance to this facility. C. All visitors are expected to remain in the Surgical Registration and Waiting Area the entire time they are waiting on the patient and will not be allowed in the procedure area. D. All visitors are expected to follow posted hand hygiene protocols. E. Instructed patient that effective 09/02/19 all patients and visitors must wear a face covering upon entrance to [facility]. If you or your visitors do not have a face covering upon arrival, one will be provided during the screening process. F. Patient verbalized confirmation of visitor policy and verbalized understanding that failure to comply with aforementioned policy or if their visitor/family does not pass the coronavirus screening questions, the visitor/family will be asked to leave the hospital immediately. 12. Patient verbalized confirmation that they will call and notify us if they are having any fever, cough, shortness of breath, sore throat, lost of taste or smell, diarrhea, vomiting,or are waiting on a COVID test result between the time of this call and the time of their procedure. 13. Patient verbalized confirmation and understanding of above instructions & I answered all questions from the patient/family. 14. Call Ended 03/02/22 1655 documented in this encounter Miscellaneous Notes * Research Note - Tali Bailey RN - 03/02/2022 1:07 PM CDT Precall done documented in this encounter Plan of Treatment Not on file documented as of this encounter Visit Diagnoses Not on filedocumented in this encounter Care Teams Product Engineering Manager Relationship Specialty Start Date End Date Martin López MD [facility] [address] [address] PCP - General 06/27/12 Khalif Ca MD [facility] [address] [address] Referring Physician Cardiology 04/08/19 Francia Worley MD [facility] [address] [address] Surgeon Cardiothoracic Surgery 06/28/20 Tera Torre MD [facility] [address] [address] Consulting Physician Cardiology 06/28/20 documented as of this encounter
--- OUTSIDE RECORDS SUMMARY | 2024-04-20 00:14 | XMS_ITS | Encounter Summary ---
Author Organization [facility] Address [address] [place] [address] Care Team Providers Care Geological Drafter Name Role Phone Martin López MD Primary Care Provider Khalif Ca MD Unavailable [phone] Francia Worley MD Unavailable Tera Torre MD Unavailable Reason for Referral * Diagnostic Imaging (Routine) - Closed Specialty Diagnoses / Procedures Referred By Contac t Referred To Contact Diagnoses Pleural plaque Procedures XR Chest Pa Lateral 2 Views Kvng Gross Chi, MD [address] [place] [address] Phone: tel: fax: [address] [address] Referral ID Status Reason Start Date Expiration Date Visits Re quested Visits Authorized [id number] Closed 02/06/2022 03/08/2023 1 1 Reason for Visit * Diagnostic Imaging (Routine) - Closed Specialty Diagnoses / Procedures Referred By Contac t Referred To Contact Diagnoses Pleural plaque Procedures XR Chest Pa Lateral 2 Views Kvng Gross Chi, MD [address] [place] [address] Phone: tel: fax: [address] [address] Referral ID Status Reason Start Date Expiration Date Visits Re quested Visits Authorized [id number] Closed 02/06/2022 03/08/2023 1 1 Encounter Details Date Type Department Care Team (Latest Contact Info) Description 02/20/2022 8:10 AM CDT - 02/20/2022 11:59 PM CDT Hospital Encounter [facility] [address] [place] [address] Pleural plaque Discharge Disposition: Discharge to home or self care Social History Tobacco Use Types Packs/Day Years Used Date Smoking Tobacco: Never Smokeless Tobacco: Never Alcohol Use Standard Drinks/Week Comments Yes 0 (1 standard drink = 0.6 oz pur e alcohol) rare Sex and Gender Information Value Date Recorded Sex Assigned at Not on file 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 Gender Identity Male 07/25/2023 3:40 PM CDT [...] Priority Date/Time Associated Diagnosis Comments XR CHEST PA LATERAL 2 VIEWS Schedule Routine, Read Routine (OP Routine) 02/20/2022 8:16 AM CDT Pleural plaque documented in this encounter Results * XR Chest Pa [...] this encounter Visit Diagnoses Diagnosis Pleural plaque documented in this encounter Care Teams Geological Drafter Relationship Specialty Start Date End Date Martin López MD [address] [facility] [address] [place] [address] PCP - General 06/27/12 Khalif Ca MD [address] [address] Referring Physician Cardiology 04/08/19 Francia Worley MD [address] [address] Surgeon Cardiothoracic Surgery 06/28/20 Tera Torre MD [address] [address] Consulting Physician Cardiology 06/28/20 documented as of this encounter
--- OUTSIDE RECORDS SUMMARY | 2024-04-20 00:14 | XMS_ITS | Encounter Summary ---
Author Organization [facility] Address [address] [place] [address] Phone Care Team Providers Care Tool Tender Name Role Phone Martin López MD Primary Care Provider Khalif Ca MD Unavailable [phone] Francia Worley MD Unavailable Tera Torre MD Unavailable Encounter Details Date Type Department Care Team (Late st Contact Info) Description 01/20/2021 Orders Only [facility] Cardiology [address] [facility] 8th [place] [address] [place] [address] Tera Torre MD [address] [place] [address] Social History Tobacco Use Types Packs/Day Years Used Date Smoking Tobacco: Never Smokeless Tobacco: Never Alcohol Use Standard Drinks/Week Comments Yes 0 (1 standard drink = 0.6 oz pur e alcohol) rare Sex and Gender Information Value Date Recorded Sex Assigned at Not on file 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 Gender Identity Male 07/25/2023 3:40 PM CDT Sexual Orientation Straight 10/28/2019 9: 50 AM CDT documented as of this encounter Plan of Treatment Not on file documented as of this encounter Visit Diagnoses Not on filedocumented in this encounter Care Teams Tool Tender Relationship Specialty Start Date End Date Martin López MD [address] [address] PCP - General 06/27/12 Khalif Ca MD [address] [address] Referring Physician Cardiology 04/08/19 Francia Worley MD [address] [address] Surgeon Cardiothoracic Surgery 06/28/20 Tera Torre MD [address] [address] Consulting Physician Cardiology 06/28/20 documented as of this encounter
--- OUTSIDE RECORDS SUMMARY | 2024-04-20 00:14 | XMS_ITS | Encounter Summary ---
Author Organization [facility] Address [address] [place] [address] Phone Care Team Providers Care Wallpaper Hanger Helper Name Role Phone Martin López MD Primary Care Provider Khalif Ca MD Unavailable [phone] Francia Worley MD Unavailable Tera Torre MD Unavailable Reason for Visit * Reason Comments Follow-up Encounter Details Date Type Department Care Team (Late st Contact Info) Description 11/02/2020 9:45 AM CDT Office Visit [facility] Cardiology [address] [facility] Medical Office Building [address] [place] [address] Tera Torre MD [address] [facility] [address] [place] [address] Severe aortic stenosis (Primary Dx) Social History Tobacco Use Types Packs/Day Years Used Date Smoking Tobacco: Never Smokeless Tobacco: Never Alcohol Use Standard Drinks/Week Comments Yes 0 (1 standard drink = 0.6 oz pur e alcohol) rare Sex and Gender Information Value Date Recorded Sex Assigned at Not on file 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 Gender Identity Male 07/25/2023 3:40 PM CDT Sexual Orientation Straight 10/28/2019 9: 50 AM CDT documented as of this encounter Last Filed Vital Signs Vital Sign Reading Time Taken Comments Blood Pressure 164/90 11/02/2020 9:37 AM CDT Pulse 65 11/02/2020 9:37 AM CDT Temperature - - Respiratory Rate - - Oxygen Saturation 99% 11/02/2020 9:37 AM CDT Inhaled Oxygen Concentration - - Weight 86.4 kg (190 lb 6.4 oz) 11/02/2020 9:37 A M CDT Height 176.5 cm (5' 9.5 ) 11/02/2020 9:37 AM CDT Body Mass Index 27.71 11/02/2020 9:37 AM CDT documented in this encounter Patient Instructions * Patient Instructions* Erin Casas RN - 11/02/2020 9:45 AM CDT Follow up with Dr. Torre in 6 months. 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 Please start taking this medication. Please obtain BMP lab work one week after starting your Lisinopril. documented in this encounter Ordered Prescriptions Prescription Sig Dispense Quantity Refills Last Filled Start Date End Date lisinopriL (PRINIVIL,ZESTRIL) 10 mg tablet Take 1 tablet (10 mg total) by mouth daily 30 tablet 1 11/02/2020 11/24/2020 documented in this encounter Progress Notes * Ernie Scruggs MD - 11/02/2020 9:45 AM CDT Images from the original note were not included. [facility] of Medicine Cardiovascular Division Tera Torre M.D. [employer] [facility], [place] [address], [address] [place] [id number], [email or web address] Date: 08/03/2020 Primary care Physician Martin López MD [address] [place] [id number] Patient Name: Nathan Wagner Date of : 1945 Date of Visit: 04/27/2020 PRINCIPAL AND SECONDARY DIAGNOSES: 1. Severe aortic stenosis with a mean gradient 42 mm Hg and EF 55%. Now s/p bioAVR (25 mm Magna ease) by Dr. Worley on 06/23/20. 2. Coronary artery disease s/p CABG - severe 3 vessel coronary artery disease with marked ischemia by hemodynamic assessment s/p CABG (radial sequenced to left anterior descending coronary artery andcircumflex obtuse marginal branch, saphenous vein graft to??the posterior descending coronary artery) by Dr. Worley on 06/23/20. 3. Hypertension INTERVAL HISTORY: We had the pleasure of seeing Nathan Wagner today [facility] for follow-up of his aortic stenosis. As you know, He is a pleasant 74 y.o. male who we last saw 08/03/20. In the interval since we last saw him, Mr. Wagner has continued to do well. He is exercising regularlyby walking on the treadmill about 1-1.5 miles 3-4 times per week and has started playing golfing again and is tolerating this activity well. He did notice some discomfort in his chest wall when he was swinging his golf clubs but it resolved quickly and seems more musculoskeletal related to his sternotomy. Denies any palpitations, orthopnea, PND, peripheral edema or weight gain. CURRENT MEDICATIONS: Current Outpatient Medications: ??? aspirin 81 mg enteric coated tablet ??? atorvastatin (LIPITOR) 80 mg tablet ??? clobetasol (TEMOVATE) 0.05 % external solution ??? metoprolol tartrate (LOPRESSOR) 25 mg immediate release tablet ??? montelukast (SINGULAIR) 10 mg tablet ??? travoprost (TRAVATAN Z) 0.004 % drops ??? acetaminophen (TYLENOL) 325 mg tablet ??? azelastine 0.15 % (205.5 mcg) spray,non-aerosol ??? docusate sodium (COLACE) 100 mg capsule ??? latanoprost (XALATAN) 0.005 % ophthalmic solution ??? metoprolol tartrate (LOPRESSOR) 25 mg immediate release tablet ??? pantoprazole DR (PROTONIX) 40 mg EC tablet ??? polyethylene glycol (MIRALAX) 17 gram packet PHYSICAL EXAMINATION: Vitals BP 164/90 (BP Location: Right arm, Patient Position: Sitting) Pulse 65 Ht 176.5 cm (5' 9.5 ) Wt 86.4 kg (190 lb 6.4 oz) SpO2 99% BMI 27.71 kg/m?? GENERAL: He is alert and oriented, in no acute distress. Speaks in full sentences. HEENT: Extraocular muscles intact. Sclerae white. Mucous membranes are moist. NECK: No thyromegaly. No lymphadenopathy. No JVD. LUNGS: Clear to auscultation bilaterally. HEART: Regular rate and rhythm. Severe as murmur present ABDOMEN: Non tender, no distended. No hepatosplenomegaly. MUSCULOSKELETAL: He has +5 strength in both upper and lower extremities, bilateral and symmetric. NEUROLOGIC: He is alert and oriented x4. Grossly normal motor and sensation bilaterally and symmetric. VASCULAR: He has +2 radial pulses bilaterally and symmetric. No lower extremity edema. LABORATORY DIAGNOSTICS: No pertinent studies to review IMPRESSION AND PLAN: 1. Aortic stenosis. Patient is doing quite well post aortic valve replacement. He has no signs/symptoms to suggest diastolic HF or valvular dysfunction. TTE on 07/20/20 showed physiologic AV gradientswithout evidence of AI. He has some musculoskeletal chest discomfort that is likely related to ongoing healing from sternal wound. We re-assured him that this is non-cardiac and should improve with time. Pt is hypertensive as below and will start Lisinopril 10 mg daily. 2. Coronary artery disease. S/p CABG, asymptomatic with normal activity tolerance. Continue ASA andstatin for secondary prevention. 3. Atrial fibrillation. Occurred only in the post-operative setting, initially required amiodarone but this was discontinued at our last visit and he is without signs/symptoms to suggest recurrence. We will continue to monitor. 4. Hypertension. His BP is elevated today well above goal, we will start Lisinopril 10 mg daily andask him to monitor BP at home and keep a log for our review. Thank you for allowing me to participate in the care of this patient. We would be happy to see him back in 6 months time or sooner as needed. Please don't hesitate to reach out with any questions or concerns. Ernie Scruggs MD Seo Consultant CC: Martin López MD [address] [place] [address] Cosigned by [facility] MD at 11/03/2020 9:54 AM CDT Associated attestation - Tera Torre MD - 11/03/2020 9:54 AM CDT I have seen and examined the patient. I agree with the findings and plan of care as documented in the resident/fellow's note. My total encounter time on 11/02/2020 was 30 minutes which was spent in theactivities documented in the note. This includes time spent prior to the visit and after the visit in direct care of the patient. This time does not include time spent in any separately reportable ser vices. documented in this encounter Plan of Treatment Not on file documented as of this encounter Visit Diagnoses Diagnosis Severe aortic stenosis- Primary Aortic valve disorders documented in this encounter Care Teams Wallpaper Hanger Helper Relationship Specialty Start Date End Date Martin López MD [address] [place] [address] [place] [address] PCP - General 06/27/12 Khalif Ca MD [address] [place] [address] [place] [address] Referring Physician Cardiology 04/08/19 Francia Worley MD [address] [facility] [address] [address] Surgeon Cardiothoracic Surgery 06/28/20 Tera Torre MD [address] [place] [address] [address] Consulting Physician Cardiology 06/28/20 documented as of this encounter
--- OUTSIDE RECORDS SUMMARY | 2024-04-20 00:14 | XMS_ITS | Encounter Summary ---
Author Organization [facility] Address [address] [place] [address] Phone Care Team Providers Care Warp Knit Operator Name Role Phone Martin López MD Primary Care Provider Khalif Ca MD Unavailable [phone] Francia Worley MD Unavailable Tera Torre MD Unavailable Reason for Visit * Reason Onset Date Comments waiting period re: dental sx 10/13/2020 Encounter Details Date Type Department Care Team (Late st Contact Info) Description 10/13/2020 Telephone [facility] Cardiology [address] [facility] 8th [place] [address] [place] [address] Tera Torre MD [address] [place] [address] waiting period re: dental sx Social History Tobacco Use Types Packs/Day Years Used Date Smoking Tobacco: Never Smokeless Tobacco: Never Alcohol Use Standard Drinks/Week Comments Yes 0 (1 standard drink = 0.6 oz pur e alcohol) rare Sex and Gender Information Value Date Recorded Sex Assigned at Not on file 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 Pls call to discuss documented in this encounter Plan of Treatment Not on file documented as of this encounter Visit Diagnoses Not on filedocumented in this encounter Care Teams Warp Knit Operator Relationship Specialty Start Date End Date Martin López MD [address] [address] PCP - General 06/27/12 Khalif Ca MD [address] [address] Referring Physician Cardiology 04/08/19 Francia Worley MD [address] [address] Surgeon Cardiothoracic Surgery 06/28/20 Tera Torre MD [address] [address] Consulting Physician Cardiology 06/28/20 documented as of this encounter
--- OUTSIDE RECORDS SUMMARY | 2024-04-20 00:14 | XMS_ITS | Encounter Summary ---
Author Organization [facility] Address [address] [place] [address] Phone Care Team Providers Care Loss Prevention Representative Name Role Phone Martin López MD Primary Care Provider Khalif Ca MD Unavailable [phone] Francia Worley MD Unavailable Tera Torre MD Unavailable Encounter Details Date Type Department Care Team (Late st Contact Info) Description 11/09/2020 Orders Only [facility] Cardiology [address] [facility] Medical Office [address] [place] [address] Tera Torre MD [address] [place] [address] Social History Tobacco Use Types Packs/Day Years Used Date Smoking Tobacco: Never Smokeless Tobacco: Never Alcohol Use Standard Drinks/Week Comments Yes 0 (1 standard drink = 0.6 oz pur e alcohol) rare Sex and Gender Information Value Date Recorded Sex Assigned at Not on file 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 * Result Encounter Note - Tera Torre MD - 11/10/2020 7:52 AM CDT Looks good on new meds documented in this encounter Plan of Treatment Not on file documented as of this encounter Procedures Procedure Name Priority Date/Time Associated Diagnosis Comments SPECIMEN STATUS REPORT Routine 11/09/2020 11:56 AM CDT BASIC METABOLIC PANEL Routine 11/09/2020 11:56 AM CDT documented in this encounter Results * Specimen Status Report (11/09/2020 11:56 AM CDT) Specimen Status Report Comment [facility] - 01 Comment: Rosa Abbrev BMP8 Default Ambsantosh Abbrev BMP8 Default A hand-written panel/profile was received from your office. In accordance with the [facility] Ambiguous Test Code Policy dated October 2002, we have completed your order by using the closest currently or formerly recognized AMA panel. ??We have assigned Basic Metabolic Panel (8), Test Code #953129 to this request. If this is not the testing you wished to receive on this specimen, please contact the [facility] Client Inquiry/Technical Services Department to clarify the test order. ??We appreciate your business. 11/09/2020 11:5 6 AM CDT 11/09/2020 Narrative [facility] - 11/10/2020 6:08 AM CDT Performed at: ??01 - [address], [place], [place] ??[id number] Grinder Set Up Operator Gear Tool: Farhat Jiang PhD, Phone: ??[phone] us Tera Torre MD LAB BLOOD ORDERABLES Final R esult [facility] - 01 * Basic metabolic panel (11/09/2020 11:56 AM CDT) Glucose 92 65 - 99 mg/dL [facility] - 01 BUN 16 8 - 27 mg/dL [facility] - 01 Creatinine, Serum 1.10 0.76 - 1.27 mg/dL [facility] - 01 eGFR If NonAfricn Am 66 >59 mL/min/1.7 3 [facility] - 01 eGFR If Africn Am 76 >59 mL/min/1.7 3 [facility] - 01 Comment: [facility] currently reports eGFR in compliance with the current ??recommendations of the National Kidney Foundation. [facility] will ??update reporting as new guidelines are published from the NKF-ASN ??Task force. BUN/creat ratio 15 10 - 24 [facility] - 01 Sodium 143 134 - 144 mmol/L [facility] - 01 Potassium, sr 4.8 3.5 - 5.2 mmol/L [facility] - 01 Chloride 103 96 - 106 mmol/L [facility] - 01 CO2 26 20 - 29 mmol/L [facility] - 01 Calcium 9.9 8.6 - 10.2 mg/dL [facility] - 01 11/09/2020 11:5 6 AM CDT 11/09/2020 Narrative [facility] - 11/10/2020 6:08 AM CDT Performed at: ??01 - [facility] ??[id number] Grinder Set Up Operator Gear Tool: Farhat Jiang PhD, Phone: ??[phone] Tera Torre MD LAB BLOOD ORDERABLES Final R esult [facility] - 01 documented in this encounter Visit Diagnoses Not on filedocumented in this encounter Care Teams Loss Prevention Representative Relationship Specialty Start Date End Date Martin López MD [address] [place] [address] PCP - General 06/27/12 Khalif Ca MD [address] [place] [address] Referring Physician Cardiology 04/08/19 Francia Worley MD [address] [address] Surgeon Cardiothoracic Surgery 06/28/20 Tera Torre MD [address] [address] Consulting Physician Cardiology 06/28/20 documented as of this encounter
--- OUTSIDE RECORDS SUMMARY | 2024-04-20 00:14 | XMS_ITS | Encounter Summary ---
Author Organization [facility] Address [address] [place] [address] Care Team Providers Care Railroad Operator Name Role Phone Martin López MD Primary Care Provider Khalif Ca MD Unavailable [phone] Francia Worley MD Unavailable Tera Torre MD Unavailable [phone] Reason for Referral * MRI/CAT/PET Scan (Routine) - Closed Specialty Diagnoses / Procedures Referred By Contac t Referred To Contact Radiology Diagnoses Other nonspecific abnormal finding of lung field Procedures CT Chest WO Contrast Marino Clinton PA [address] [place] [address] Phone: tel: fax: [address] [place] [address] Referral ID Status Reason Start Date Expiration Date Visits Re quested Visits Authorized [id number] Closed 08/24/2021 09/23/2022 1 1 Reason for Visit * MRI/CAT/PET Scan (Routine) - Closed Specialty Diagnoses / Procedures Referred By Contac t Referred To Contact Radiology Diagnoses Other nonspecific abnormal finding of lung field Procedures CT Chest WO Contrast Marino Clinton PA [address] [place] [address] Phone: tel: fax: [place] [address] [address] [id number] Referral ID Status Reason Start Date Expiration Date Visits Re quested Visits Authorized [id number] Closed 08/24/2021 09/23/2022 1 1 Encounter Details Date Type Department Care Team (Latest Contact Info) Description 09/05/2021 1:22 PM CDT - 09/05/2021 11:59 PM CDT Hospital Encounter [facility] Imaging [address] [address] [id number] Other nonspecific abnormal finding of lung field Discharge Disposition: Discharge to home or self care Social History Tobacco Use Types Packs/Day Years Used Date Smoking Tobacco: Never Smokeless Tobacco: Never Alcohol Use Standard Drinks/Week Comments Yes 0 (1 standard drink = 0.6 oz pur e alcohol) rare Sex and Gender Information Value Date Recorded Sex Assigned at Not on file 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 Gender Identity Male 07/25/2023 3:40 PM [...] 1 drop into both eyes nightly 03/31/2015 azelastine 0.15 % (205.5 mcg) spray,non-aeroso lIndications:Sea jayshree Allergic Rhinitis Administer 1 spray into each nostril daily as needed 04/02/2016 2 clobetasol (TEMOVATE) 0.05 % external solutionIndicati ons:Dermatosis of the Scalp Apply 1 application topically 2 (two) times a day as needed 04/24/2019 2 docusate sodium (COLACE) 100 mg capsuleIndicatio ns:constipation Take 1 capsule (100 mg total) by mouth 2 (two) times a day as needed for constipation 60 capsule 1 06/28/2020 2 latanoprost (XALATAN) 0.005 % ophthalmic solution Administer 1 drop into both eyes nightly 2.5 mL 06/28/2020 2 lisinopriL (PRINIVIL,ZESTRI L) 20 mg tablet Take 1 tablet (20 mg total) by mouth daily 30 tablet 3 05/25/2021 3 metoprolol tartrate (LOPRESSOR) 25 mg immediate release tablet Take 0.5 tablets (12.5 mg total) by mouth 2 (two) times a day 30 tablet 1 06/28/2020 2 metoprolol tartrate (LOPRESSOR) 25 mg immediate release tablet TAKE 1 TABLET BY MOUTH TWICE A DAY 180 tablet 3 07/03/[address] (PROTONIX) 40 mg EC tabletIndication s:Treatment of Non-Bleeding Gastric Disorder Take 1 tablet (40 mg total) by mouth 2 (two) times a day 60 tablet 1 06/28/2020 2 polyethylene glycol (MIRALAX) 17 gram packetIndication s:constipation Take 1 packet (17 g total) by mouth daily 06/29/2020 2 documented as of this encounter Discharge Disposition Disposition Code Departure Means Destination Discharge to home or self care documented in this encounter Plan of Treatment Not on file documented as of this encounter Procedures Procedure Name Priority Date/Time Associated Diagnosis Comments CT CHEST WO CONTRAST Schedule Routine, Read Routine (OP Routine) 09/05/2021 1:34 PM CDT Other nonspecific abnormal finding of lung field documented in this encounter Results * CT Chest WO Contrast (09/05/2021 1:34 PM CDT) Anatomical Region Laterality Modality Body N/A Computed Tomogra phy 09/05/2021 2:19 PM CDT Impressions 09/05/2021 2:19 PM CDT 1. Unchanged multifocal groundglass nodules in both lungs. These warrant continued follow-up. While an inflammatory cause is possible, there are persistent suggest the possibility of low-grade adenocarcinoma. 2. Unchanged asymmetric right posterior mediastinal soft tissue thickening. In the presence of calcified pleural plaques suggesting prior asbestos exposure, recommend continued monitoring of this finding as well. Electronically signed by: Farhat Allen M.D. Narrative 09/05/2021 2:19 PM CDT EXAMINATION: ??Computed tomography of the chest without intravenous contrast HISTORY: Lung nodules TECHNIQUE: ??Transaxial computed tomographic images of the chest were obtained without intravenous contrast according to the standard protocol. COMPARISON: 05/03/2020 FINDINGS: ?? Multifocal groundglass nodules again seen. 7 mm right upper lobe pulmonary nodule on image 34 is stable abutting azygos fissure. Mildly spiculated appearing right upper lobe 9 mm probably groundglass nodule on series 3 image 49 is stable. 12 mm groundglass nodule in the right lower lobe on series 3 image 79 is stable. 10 mm left lower lobe groundglass nodule on image 82 is unchanged. Additional groundglass nodules in both lungs are stable. No pleural effusion pneumothorax or consolidation. Unchanged calcified pleural plaques within the lung bases. Changes from median sternotomy and aortic valve replacement are present. There is no axillary supraclavicular mediastinal or hilar lymphadenopathy. Normal heart size without pericardial effusion. In the upper abdomen the visualized portions of the liver gallbladder adrenal glands pancreas and spleen are normal. A large cyst arises from the left kidney interpolar region. Multiple subcentimeter posterior mediastinal lymph nodes are unchanged. Unchanged soft tissue thickening within the right posterior mediastinum along the right aspect of the T9 vertebra. Bone windows demonstrate no suspicious osseous lesion or fracture. Procedure Note Farhat Allen MD - 09/05/2021 EXAMINATION: Computed tomography of the chest without intravenous contrast HISTORY: Lung nodules TECHNIQUE: Transaxial computed tomographic images of the chest were obtained without intravenous contrast according to the standard protocol. COMPARISON: 05/03/2020 FINDINGS: Multifocal groundglass nodules again seen. 7 mm right upper lobe pulmonary nodule on image 34 is stable abutting azygos fissure. Mildly spiculated appearing right upper lobe 9 mm probably groundglass nodule on series 3 image 49 is stable. 12 mm groundglass nodule in the right lower lobe on series 3 image 79 is stable. 10 mm left lower lobe groundglass nodule on image 82 is unchanged. Additional groundglass nodules in both lungs are stable. No pleural effusion pneumothorax or consolidation. Unchanged calcified pleural plaques within the lung bases. Changes from median sternotomy and aortic valve replacement are present. There is no axillary supraclavicular mediastinal or hilar lymphadenopathy. Normal heart size without pericardial effusion. In the upper abdomen the visualized portions of the liver gallbladder adrenal glands pancreas and spleen are normal. A large cyst arises from the left kidney interpolar region. Multiple subcentimeter posterior mediastinal lymph nodes are unchanged. Unchanged soft tissue thickening within the right posterior mediastinum along the right aspect of the T9 vertebra. Bone windows demonstrate no suspicious osseous lesion or fracture. IMPRESSION: 1. Unchanged multifocal groundglass nodules in both lungs. These warrant continued follow-up. While an inflammatory cause is possible, there are persistent suggest the possibility of low-grade adenocarcinoma. 2. Unchanged asymmetric right posterior mediastinal soft tissue thickening. In the presence of calcified pleural plaques suggesting prior asbestos exposure, recommend continued monitoring of this finding as well. Electronically signed by: Farhat Allen M.D. [facility] IMG CT PROCEDURES Final R esult documented in this encounter Visit Diagnoses Diagnosis Other nonspecific abnormal finding of lung field documented in this encounter Care Teams Railroad Operator Relationship Specialty Start Date End Date Martin López MD [facility] [address] [address] PCP - General 06/27/12 Khalif Ca MD [facility] [address] [address] Referring Physician Cardiology 04/08/19 Francia Worley MD [address] [address] Surgeon Cardiothoracic Surgery 06/28/20 Tera Torre MD [address] [address] Consulting Physician Cardiology 06/28/20 documented as of this encounter
--- OUTSIDE RECORDS SUMMARY | 2024-04-20 00:14 | XMS_ITS | Encounter Summary ---
Author Organization [facility] Address [address] [place] [address] Care Team Providers Care Associate Embalmer/Funeral Director Name Role Phone Martin López MD Primary Care Provider Khalif Ca MD Unavailable [phone] Francia Worley MD Unavailable Tera Torre MD Unavailable [phone] Encounter Details Date Type Department Care Team (Late st Contact Info) Description 03/05/2022 11:59 PM VICE PRESIDENT OF NEWS Anesthesia Event [facility] Operating Room [address] [place] [address] Gris Alfaro, MARLENE [address] [facility] [id number] [place], [place] [id number] Anesthesia Record Procedure Summary Procedure Name Responsible Anesthesiologist Anesthesia Start Time Anesthesia Stop Time BRONCHOSCOPY W/LINEAR (canceled) Events No events on file. Meds * Agents No agents on file. * Blood No blood administrations on file. Lines, Drains, and Airways No LDAs on file. documented in this encounter Social History Tobacco Use Types Packs/Day Years [...] on file Legal Sex Male 9:13 PM VICE PRESIDENT OF NEWS Gender Identity Male 07/25/2023 3:40 PM CDT Sexual Orientation Straight 10/28/2019 9: 50 AM CDT documented as of this encounter OR Notes * Anesthesia Preprocedure Evaluation - Gris Alfaro NP - 02/22/2022 12:15 PM CDT Images from the original note were not included. [facility] Preoperative Assessment and Planning Preoperative Evaluation Record Evaluation type/location: TPAP from [facility] Planned procedure site: [facility] (Pods 2/3/5/PRODUCT DEVELOPMENT) Date: 02/22/22 NOTE: This note represents a preoperative evaluation initiated via telephone interview. NO PHYSICALEXAM was performed at the time of initial assessment. A physical exam may be added to this note anddocumented below. Anesthesia Evaluation Nathan Wagner is a 76 y.o. male Procedure(s): BRONCHOSCOPY W/LINEAR BRONCHOSCOPY ENDOBRONCHIAL ULTRASOUND Pre-Op Diagnosis Codes: * LAD (lymphadenopathy), mediastinal [R59.0] HISTORY HPI Nathan Wagner, 76 year old male PMH of aortic stenosis and CAD s/p CABG w/ bioAVR by Dr. Francia Worley on06/23/20 undergoing evaluation prior to BRONCHOSCOPY W/LINEAR BRONCHOSCOPY ENDOBRONCHIAL ULTRASOUND 2/2 mediastinal adenopathy, Pulmonary nodules and Rt posterior mediastinal soft tissue thickening Past Medical History Information obtained from: patient and chart. Neurological Pertinent negatives: seizures; neuromuscular disease; CVA/stroke; TIA; CEA; ICA stenosis; dementia/mild cognitive impairment and carotid artery stent Cardiovascular + Hypertension Hypertension year diagnosed: . Typical systolic BP - 140 Typical diastolic BP -85 + Hyperlipidemia (on statin) + CAD + CABG - Prior CABG date: 05/2020. + Systolic or diastolic dysfunction w/o CHF (TTE 03/2020- LVEF 75%) Diastolic dysfunction w/o CHF. Diastolic function: stage I - impaired relaxation LVEF: >70%. + Current valvular disease (TTE 03/2020- LENORA 0.5 cm2- trace AR s/p TAVR bio AV ) - + Prosthetic/Repaired heart valve - AV - bioprosthetic + Atrial fibrillation/flutter - Rhythm type: first/one detected episode (<7 days). + PAD/Aorta disease (CT TAVR 04/2020- mild to moderate calfications noted in the iliac and femoral arteries) - Pertinent negatives: MT ; arrhythmia; pacemaker/ICD; DVT/PE; negative for CHF; drug-eluting stent(s); bare metal stent(s) and coronary angioplasty Comments: Followed by ANDRE Ware/CRISTIAN Cards: Last OV 11/01/21 - Stable at that visit - No change made to medical management Respiratory Pertinent negatives: COPD; asthma; sleep apnea (NAHUN); no O2 use outside the hospital and non-smoker Comments: Per CT TAVR 05/03/20: Bilateral subcentimeter solid and groundglass pulmonary nodules Projection Camera Operator Dr. Delgado OV 02/20/22 Hepatic / Heme + History of anemia Pertinent negatives: liver disease; history of thrombocytopenia and history of Jasmine positive Gastrointestinal + GERD - PRN medication use only. Symptoms < 1x/week. Comments: GI bleed 2/2 H. Pylori ulcer (2014) and diverticulosis (04/2020) Renal / + Renal disease - CKD Pertinent negatives: dialysis and nephrolithiasis Musculoskeletal/Pain + Chronic pain (knees) + Osteoarthritis (Knee Bilat ) Pertinent negatives: headaches Endocrine / Other + Cancer history- skin cancer only. 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 + Eye disorder - glaucoma. Pertinent negatives: diabetes mellitus; thyroid disease; rheumatological disease and transplanted organ Functional Capacity Functional capacity: 4-6 METs Comments: he has been using a treadmill for an hour at a time 3-3.5 miles - 5x/weekHe has been doing activities without limitations. He does have significant arthritis in his knees that slows him down some Review of Systems + previous transfusion (With CABG 2020- 2014 following GI bleed 2/2 ulcer. Denies negative transfusion reaction hx.) + chronic pain (knees) + vision loss (Corrective lenses) Pertinent negatives: productive cough; wheezing; SOB; recent cold/flu; fever; chest pain; palpitations; orthopnea; pedal edema; PND; transfusion reaction; easy bruising; bleeding problems; syncope; dizziness; muscle weakness; numbness/tingling; hard of hearing; nausea; dysphagia; diarrhea; dentures/ partials; chipped/loose teeth; abdominal pain and no unexpected weight changeHematochezia: hematochezia 04/2020 2/2 diverticulosis Comments: Denies UTI symptoms PAT Summary and Plans Cardiac risk classification of planned procedure: low cardiac risk. Preoperative assessment status: complete. Additional comments: Nathan Wagner is a 76 y.o. male who is being evaluated prior to undergoing a low cardiac risk surgery. Revised Cardiac Risk Index factors are (history of CHF) for a total RCRI of 1 out of 6. Functional capacity is 4-6 METs. PMH of aortic stenosis and CAD s/p CABG w/ bioAVR by Dr. Francia Worley on 06/23/20, HTN, HLD, an dWork up for TAVR- CT incidentally noted multiple pulmonary nodules and plaques w/ associated mediastinal adenopathy - followed up by his PCP with a CT in August and again in November of this year which showedstable multifocal ground glass nodules. A small increase in the size of a Rt posterior mediastinal soft tissue thickening prompted a PET/CT, which revealed mediastinal lymph nodes with increased metabolic activity. These raised the concern for an inflammatory vs malignant etiology, and patient was referred to pulmonology for further workup and possible biopsy given their PET avidity and the patient's (admittedly remote) risk factors for lung cancer environmental exposures they pal to proceed with biopsy Last OV 11/01/21 - Stable at that visit - No change made to medical management Severe aortic stenosis with a mean gradient 42 mm Hg and EF 55%. Now s/p bioAVR (25 mm Magna ease) by Dr. Worley on 06/23/20. Coronary artery disease s/p CABG - severe 3 vessel coronary artery disease with marked ischemia by hemodynamic assessment s/p CABG (radial sequenced to left anterior descending coronary artery and circumflex obtuse marginal branch, saphenous vein graft to??the posterior descending coronary artery) by Dr. Worlye on 06/23/20. Hypertension Obstructive sleep apnea (NAHUN) screening status is STOP-BANG incomplete at 3-4 suggesting MODERATE risk for NAHUN. Neck circumference pending. May need NAHUN order set initiated if Co2 >27. This assessment was performed via telephone. Therefore the physical exam has been deferred to the day of surgery team. The patient was provided with preoperative instructions for their medications. Patient instructions were provided by telephone and electronically sent via [employer]. Patient verbalized understanding of preoperative plan. Blood bank needs for day of procedure: No type and screen needed Pending labs/tests include: None Preoperative evaluation performed by Gris Alfaro NP on 02/22/22 at 12:41 PM TPAP Assessment complete . Patient Active Problem List Diagnosis ??? Aortic valve stenosis ??? Sinus disease ??? Severe aortic stenosis ??? H pylori ulcer ??? History of blood transfusion ??? Hypertension, essential ??? Acute GI bleeding ??? HLD (hyperlipidemia) ??? Hematochezia ??? Coronary artery disease without angina pectoris ??? Acute postoperative anemia due to expected blood loss ??? Atrial fibrillation (CMS/HCC) (HCC) ??? Pleural 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 Past Medical History: Diagnosis Date ??? Coronary artery disease ??? Diverticulosis ??? GERD (gastroesophageal reflux disease) ??? GI bleed 2014 ??? Glaucoma ??? H pylori ulcer with bleeding in 2014 ??? Heart murmur ??? Hemorrhoid ??? History of blood transfusion 2014 ??? HTN (hypertension) ??? Hyperlipidemia ??? Severe aortic stenosis with a mean gradient 42 mm Hg and EF 55% ??? Sinus disease mild Past Surgical History: Procedure Laterality Date ??? CARDIAC CATHETERIZATION 2019 ??? COLONOSCOPY 2019 ??? HEART SURGERY 2019 ??? MOHS SURGERY 2002 BCC behind right ear ??? UPPER GASTROINTESTINAL ENDOSCOPY 2019 No Known Allergies Med List Status: Nurse Complete Set By: Renetta Lee RN at 02/22/2022 11:38 AM Taking? Last Dose Start Date End Date Provider aspirin 81 mg enteric coated tablet 02/22/2022 -- -- Provider, MD Yasmeen atorvastatin (LIPITOR) 80 mg tablet 02/22/2022 06/28/20 02/22/22 Shana Alvarado NP Take 1 tablet (80 mg total) by mouth daily Patient taking differently: Take 80 mg by mouth every morning lisinopriL (PRINIVIL,ZESTRIL) 20 mg tablet 02/22/2022 05/25/21 -- Tera Torre MD Take 1 tablet (20 mg total) by mouth daily Patient taking differently: Take 20 mg by mouth every morning Notes: Dose adjustment. metoprolol tartrate (LOPRESSOR) 25 mg immediate release tablet 02/22/2022 07/03/21 -- Tera Torre MD TAKE 1 TABLET BY MOUTH TWICE A DAY Patient taking differently: Take 25 mg by mouth 2 (two) times a day montelukast (SINGULAIR) 10 mg tablet 02/21/2022 04/02/16 -- ProviderYasmeen MD travoprost (TRAVATAN Z) 0.004 % drops 02/21/2022 03/31/15 -- ProviderYasmeen MD -- Flag for Review Taking? Last Dose Start Date End Date Provider acetaminophen (TYLENOL) 325 mg tablet Past Month 06/28/20 -- Shana Alvarado NP Take 2 tablets (650 mg total) by mouth every 4 (four) hours as needed for pain No current facility-administered medications for this encounter. Current Outpatient Medications: ??? acetaminophen (TYLENOL) 325 mg tablet ??? aspirin 81 mg enteric coated tablet ??? atorvastatin (LIPITOR) 80 mg tablet ??? lisinopriL (PRINIVIL,ZESTRIL) 20 mg tablet ??? metoprolol tartrate (LOPRESSOR) 25 mg immediate release tablet ??? montelukast (SINGULAIR) 10 mg tablet ??? travoprost (TRAVATAN Z) 0.004 % drops Social History Tobacco Use Smoking Status Former ??? Types: Cigarettes ??? Quit date: 1969 ??? Years since quittin.8 Smokeless Tobacco Never Alcohol Use: Not At Risk ??? Frequency of Alcohol Consumption: 2-4 times a month ??? Average Number of Drinks: 1 or 2 ??? Frequency of Binge Drinking: Never Substance and Sexual Activity Drug Use Not Currently Family History Problem Relation Age of Onset ??? Arrhythmia Brother ??? Cancer Mother ??? Hypertension Mother ??? Heart disease Mother ??? Hypertension Brother ??? Heart attack Maternal Grandfather ??? Anesthesia problems Neg Hx Relevant diagnostics: ECG(s): 77 BPM Sinus rhythm with RBBB Holter Monitor 08/10/20- Rhythm Summary: Afib longest duration: 00:50:29 Date Time of Afib longest episode: 06/29/2020 13:09:00 Afib shortest duration: 00:00:31 Date Time of Afib shortest episode: 07/09/2020 14:25:00 Peak avg Afib rate: 123 Bradycardia avg rate: 58 Bradycardia longest duration: 00:45:16 Bradycardia longest episode: 07/23/2020 01:09:00 Bradycardia shortest duration: 00:00:02 Bradycardia shortest episode: 07/18/2020 00:00:00 Mean heart rate: 76 Pauses >= 3 seconds: 0 Tachycardia avg rate: 128 Tachycardia longest duration: 00:14:07 Tachycardia longest episode: 06/30/2020 08:45:00 Tachycardia shortest duration: 00:00:12 Tachycardia shortest episode: 07/04/2020 21:48:00 ?? Cardiologis Review of Transmissions: multiple episodes of a-fib.flutter w RVR detected automatically. Clinical correlation unknown., Echocardiogram(s): 07/20/2020- SUMMARY: s/p aortic valve replacement with bioprosthesis, 25 mm Magna Ease, on 06/23/2020, plus CABG, wih excellent results; Physiologic mean and peak pressure gradients and effective valve orifice area. No AR seen; LV cavity size is normal. Hyperdynamic LV Ejection Fraction. Low-Normal global LV Myocardial longitudinal function and LV strain pattern. Normal pericardium without pericardial effusion. Previous studies showed severe pre-op. Stress test(s): N/A Cardiac catheterization(s): N/A PFT(s): N/A Vascular studies: N/A Other: N/A There were no vitals filed for this visit. PT: No results found for requested labs within last 720 hours. INR: No results found for requested labs within last 720 hours. APTT: No results found for requested labs within last 720 hours. Hgb A1C: No results found for requested labs within last 720 hours. CBC RBC: No results found for requested labs within last 720 hours. RDW: No results found for requested labs within last 720 hours. MCHC: No results found for requested labs within last 720 hours. MCH: No results found for requested labs within last 720 hours. MCV: No results found for requested labs within last 720 hours. Hct: No results found for requested labs within last 720 hours. Hgb: No results found for requested labs within last 720 hours. WBC: No results found for requested labs within last 720 hours. MPV: No results found for requested labs within last 720 hours. Platelets: No results found for requested labs within last 720 hours. RDW CV: No results found for requested labs within last 720 hours. RDW Sd: No results found for requested labs within last 720 hours. BMP Glucose: No results found for requested labs within last 720 hours. Calcium: No results found for requested labs within last 720 hours. Sodium: No results found for requested labs within last 720 hours. Potassium: No results found for requested labs within last 720 hours. CO2: No results found for requested labs within last 720 hours. Chloride: No results found for requested labs within last 720 hours. BUN: No results found for requested labs within last 720 hours. Creatinine: No results found for requested labs within last 720 hours. Adela index score: 100 documented in this encounter Plan of Treatment Not on file documented as of this encounter Visit Diagnoses Not on filedocumented in this encounter Care Teams Associate Embalmer/Funeral Director Relationship Specialty Start Date End Date Martin López MD [address] [address] PCP - General 06/27/12 Khalif Ca MD [facility] [address] [address] Referring Physician Cardiology 04/08/19 Francia Worley MD [facility] [address] [address] Surgeon Cardiothoracic Surgery 06/28/20 Tera Torre MD [address] [address] Consulting Physician Cardiology 06/28/20 documented as of this encounter
--- OUTSIDE RECORDS SUMMARY | 2024-04-20 00:14 | XMS_ITS | Encounter Summary ---
Author Organization [facility] Address [address] [place] [address] Phone Care Team Providers Care Photographic Hand Developer Name Role Phone Martin López MD Primary Care Provider Khalif Ca MD Unavailable [phone] Francia Worley MD Unavailable Tera Torre MD Unavailable [phone] Encounter Details Date Type Department Care Team (Late st Contact Info) Description 04/26/2021 10:00 AM WIRE TAPER Office Visit [facility] Cardiology [address] [facility] [address] [place] [address] Tera Torre MD [facility] [place] [address] Coronary artery disease involving poarch coronary artery of poarch heart without angina pectoris (Primary Dx); Hypertension, essential Social History Tobacco Use Types Packs/Day Years Used Date Smoking Tobacco: Never Smokeless Tobacco: Never Alcohol Use Standard Drinks/Week Comments Yes 0 (1 standard drink = 0.6 oz pur e alcohol) rare Sex and Gender Information Value Date Recorded Sex Assigned at Not on file Legal Sex Male 9:13 PM WIRE TAPER Gender Identity Male 07/25/2023 3:40 PM CDT Sexual Orientation Straight 10/28/2019 9: 50 AM CDT documented as of this encounter Last Filed Vital Signs Vital Sign Reading Time Taken Comments Blood Pressure 143/89 04/26/2021 9:49 AM WIRE TAPER Pulse 74 04/26/2021 9:49 AM WIRE TAPER Temperature - - Respiratory Rate - - Oxygen Saturation 99% 04/26/2021 9:49 AM WIRE TAPER Inhaled Oxygen Concentration - - Weight 83.6 kg (184 lb 6.4 oz) 04/26/2021 9:49 A M WIRE TAPER Height 176.5 cm (5' 9.5 ) 04/26/2021 9:49 AM WIRE TAPER Body Mass Index 26.84 04/26/2021 9:49 AM WIRE TAPER documented in this encounter Patient Instructions * Patient Instructions* Erin Casas RN - 04/26/2021 10:00 AM WIRE TAPER Follow up with Dr. Torre in 6 months. TAPER documented in this encounter Progress Notes * Tera Torre MD - 04/26/2021 10:00 AM CST Images from the original note were not included. [facility] Department of Medicine Cardiovascular Division Tera Torre M.D. [facility] [place] [address], [address] [place] [id number], [email or web address] Date: 04/26/2021 Primary care Physician Martin López MD [address] [place] [address] Patient Name: Nathan Wagner Date of : 1945 Date of Visit: 04/26/2021 PRINCIPAL AND SECONDARY DIAGNOSES: 1. Severe aortic [...] the pleasure of seeing Nathan Wagner today [facility] for follow-up of his aortic stenosis and coronary artery bypass grafting. As you know, He is a pleasant 75 y.o. male who we last saw several months ago for follow-up of his heart surgery procedure. Since that time he has generally done well. He still notes some tightness in his chest when he moves his arms. He is back toexercising on a regular basis on his elliptical without any shortness of breath difficulty. He had is mostly limited by significant knee pain and arthritis pain. He denies any dizziness or lightheadedness. He he denies any change in medications or new medications. He has been taking his blood pressure on a regular basis and had adequately controlled blood pressures in February with a slight increase over the holiday. He denies any change in dietary habits. CURRENT MEDICATIONS: Current Outpatient Medications: ??? acetaminophen (TYLENOL) 325 mg tablet ??? aspirin 81 mg enteric coated tablet ??? atorvastatin (LIPITOR) 80 mg tablet ??? latanoprost (XALATAN) 0.005 % ophthalmic solution ??? lisinopriL (PRINIVIL,ZESTRIL) 10 mg tablet ??? metoprolol tartrate (LOPRESSOR) 25 mg immediate release tablet ??? montelukast (SINGULAIR) 10 mg tablet ??? travoprost (TRAVATAN Z) 0.004 % drops ??? azelastine 0.15 % (205.5 mcg) spray,non-aerosol ??? clobetasol (TEMOVATE) 0.05 % external solution ??? docusate sodium (COLACE) 100 mg capsule ??? metoprolol tartrate (LOPRESSOR) 25 mg immediate release tablet ??? pantoprazole DR (PROTONIX) 40 mg EC tablet ??? polyethylene glycol (MIRALAX) 17 gram packet PHYSICAL EXAMINATION: Vitals: 04/26/21 0949 BP: 143/89 BP Location: Right arm Patient Position: Sitting Pulse: 74 SpO2: 99% Weight: 83.6 kg (184 lb 6.4 oz) Height: 176.5 cm (5' 9.5 ) GENERAL: He is alert and oriented, [...] No lower extremity edema. IMPRESSION AND PLAN: 1. Coronary artery disease. He is doing quite well post coronary bypass grafting. He still has a little discomfort in his chest which I think will get better over the course of time as he does more activities. I have encouraged by his current level activity and encouraged him to continue to performthese without limitations. 2. Aortic stenosis. He is status post bioprosthetic valve replacement and doing well. He should continue his current medications without change. We will check an echocardiogram likely next year to follow his valve function. 3. Hypertension. His blood pressures been slightly elevated over the last several weeks. This may be related to the holidays and slight increase in his salt intake. I would like him to continue monitoring his blood pressure and if it continues to be high will make further adjustments in his medications. Thank you for allowing me to participate in the care of this patient. We would be happy to see him back in 6 months time or sooner as needed. Please don't hesitate to reach out with any questions or concerns. Tera Torre M.D. Real Estate Acquisition Analystmiddle school reading teacher CC: Martin López MD [address] [place] [id number] TAPER documented in this encounter Plan of Treatment Not on file documented as of this encounter Visit Diagnoses Diagnosis Coronary artery disease involving poarch coronary artery of poarch heart without angina pectoris- Primary Hypertension, essential Unspecified essential hypertension documented in this encounter Care Teams Photographic Hand Developer Relationship Specialty Start Date End Date Martin López MD [address] [place] [id number] PCP - General 06/27/12 Khalif Ca MD [address] [address] Referring Physician Cardiology 04/08/19 Francia Worley MD [address] [address] Surgeon Cardiothoracic Surgery 06/28/20 Tera Torre MD [address] [address] Consulting Physician Cardiology 06/28/20 documented as of this encounter
--- OUTSIDE RECORDS SUMMARY | 2024-04-20 00:14 | XMS_ITS | Encounter Summary ---
Author Organization [facility] Address [address] [place] [address] Phone Care Team Providers Care Car Customizer Name Role Phone Martin López MD Primary Care Provider Khalif Ca MD Unavailable [phone] Francia Worley MD Unavailable Tera Torre MD Unavailable [phone] Reason for Visit * Consultation (Routine) - Closed Specialty Diagnoses / Procedures Referred By Contac t Referred To Contact Pulmonary Disease / Pulmonology Diagnoses Pleural 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 Abnormal finding on lung imaging Marino Clinton PA [address] [address] Phone: tel: fax: Lee Arnold MD [address] [place] [address] Phone: tel: fax: Referral ID Status Reason Start Date Expiration Date V isits Requested Visits Authorized [id number] Closed Specialty Services Required 02/05/2022 02/15/2023 12 12 Encounter Details Date Type Department Care Team (Late st Contact Info) Description 02/20/2022 8:40 AM CDT Office Visit [facility] Pulmonary [address] 8[address] [place] [address] [place] [id number] Mikel Bailey MD [address] [place] [address] Pleural 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; Abnormal finding on lung imaging Social History Tobacco Use Types Packs/Day Years Used Date Smoking Tobacco: Never Smokeless Tobacco: Never Alcohol Use Standard Drinks/Week Comments Yes 0 (1 standard drink = 0.6 oz pur e alcohol) rare Sex and Gender Information Value Date Recorded Sex Assigned at Not on file 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 Gender Identity Male 07/25/2023 3:40 PM CDT Sexual Orientation Straight 10/28/2019 9: 50 AM CDT documented as of this encounter Last Filed Vital Signs Vital Sign Reading Time Taken Comments Blood Pressure 175/93 02/20/2022 8:23 AM CDT Pulse 70 02/20/2022 8:23 AM CDT Temperature 36.6 ??C (97.9 ??F) 02/20/2022 8:23 AM CD T Respiratory Rate 18 02/20/2022 8:23 AM CDT Oxygen Saturation 100% 02/20/2022 8:23 AM CDT Inhaled Oxygen Concentration - - Weight 81.6 kg (180 lb) 02/20/2022 8:23 AM CDT Height 176.5 cm (5' 9.5 ) 02/20/2022 8:23 AM CDT Body Mass Index 26.2 02/20/2022 8:23 AM CDT documented in this encounter Patient Instructions * Patient Instructions* Alma Chen RMA - 02/20/2022 8:40 AM CDT Pt is scheduled for the OR on 03/05 @ 0900am FOB LINEAR EBUS documented in this encounter Progress Notes * Marlo Delgado MD - 02/20/2022 8:40 AM CDT Interventional Pulmonology Initial Outpatient Consult 02/20/2022 Reason for Consult: Incidentally noted pulmonary nodules and plaques, w/ associated mediastinal adenopathy HPI: Mr. Wagner is a very pleasant 76 yo M w/ a PMH of aortic stenosis and CAD s/p CABG w/ bioAVR by Dr. Francia Worley on 06/23/20, HTN, HLD, and incidentally noted multiple pulmonary nodules and plaques w/ associated mediastinal adenopathy referred to us for further workup. The patient was in his USOH from a pulmonary standpoint until he underwent a CABG w/ AVR with Dr. Worley here at [facility] on 06/23/20. Since that time the patient has been doing very well from a cardiacand recovery standpoint, and has no respiratory symptoms, but as part of his workup for surgery he was noted to have multiple pulmonary nodules on a TAVR-gated CT on 04/27/2020. These were followed up by his PCP with a CT in August and again in November of this year which showed stable multifocal groundglass nodules. A small increase in the size of a Rt posterior mediastinal soft tissue thickening prompted a PET/CT, which revealed mediastinal lymph nodes with increased metabolic activity. These raised the concern for an inflammatory vs malignant etiology, and the patient was referred to us for further workup and possible biopsy. The patient denies any respiratory symptoms. Since his CABG/AVR, he has been using a treadmill for an hour at a time 5x/week. He does not become short of breath with this. He has no CP/dyspnea with usual daily activities. He denies any cough/hemoptysis, no F/C/NS, no weight change. He denies any GIsymptoms. He is only on an 81mg aspirin as a blood thinner. Fam Hx: He has a history of cardiac disease in his family, but no hx of malignancies. Soc Hx: The patient does have a remote smoking history of social tobacco smoking (<0.5 PPD) while in hislate teens and stopped at 25. Only very occasional social EtOH use. No illicits. He was in the [employer] early in life, where he served on the [employer]. In this position, pawan wear suits lined with asbestos as a flame retardant. 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 He responded to 01/07 and helped with the clean-up effort [place] [employer] for 2 weeks, where he did have exposure to toxins/fumes. No pets at home. No hazardous hobbies. Past Medical History: Diagnosis Date Coronary artery disease Diverticulosis GERD (gastroesophageal reflux disease) GI bleed 2015 Glaucoma H pylori ulcer with bleeding in 2015 Heart murmur Hemorrhoid History of blood transfusion 2014 HTN (hypertension) Hyperlipidemia Severe aortic stenosis with a mean gradient 42 mm Hg and EF 55% Sinus disease mild Past Surgical History: Procedure Laterality Date CARDIAC CATHETERIZATION COLONOSCOPY MOHS SURGERY BCC behind right ear UPPER GASTROINTESTINAL ENDOSCOPY (Not in a hospital admission) No Known Allergies Social History Tobacco Use Smoking status: Never Smokeless tobacco: Never Substance and Sexual Activity Drug use: Not Currently Sexual activity: Defer Alcohol Use: Not on file Family History Problem Relation Age of Onset Arrhythmia Brother Cancer Mother Hypertension Mother Heart disease Mother Hypertension Brother Heart attack Maternal Grandfather Anesthesia problems Neg Hx Review of Systems: A complete ROS was conducted and was negative except as per the HPI. Objective Vitals: Vitals: 02/20/22 0823 BP: (!) 175/93 Pulse: 70 Resp: 18 Temp: 36.6 ??C (97.9 ??F) TempSrc: Oral SpO2: 100% Weight: 81.6 kg (180 lb) Height: 176.5 cm (5' 9.5 ) Most Recent : Vitals BP (!) 175/93 Pulse 70 Temp 36.6 ??C (97.9 ??F) (Oral) Resp 18 Ht 176.5 cm (5' 9.5 ) Wt 81.6 kg (180 lb) SpO2 100% BMI 26.20 kg/m?? Physical Exam: Gen: NAD, seated comfortably HEENT: NC/AT, EOMI, sclera anicteric, MMM Neck: No JVD, LAD, or thyromegaly CV: RRR, holosystolic murmur heard best at Rt 2nd intercostal space Lungs: CTAB, equal expansion b/l Abdomen: Soft, NTND, BS+ Ext: WWP, no c/c/e Neuro: CN II-XII grossly intact, no focal deficits Psych: Appropriate mood and affect Lab/Radiology/Diagnostic Review: reviewed CT of the chest from 12/18/21 shows multifocal ground glass nodules bilaterally. These are largely unchanged from prior CT's on 09/05/21 and 05/03/2019. Also noted are bibasilar pleural plaques w/ associated calcification. PET/CT from 01/02/22 shows hypermetabolic mediastinal adenopathy along with some mildly increased uptake in his bilateral ground glass nodules. This uptake is less than the mediastinal blood pool. Assessment /Plan Mr. Wagner is a very pleasant 76 yo M w/ a PMH of aortic stenosis and CAD s/p CABG w/ bioAVR by Dr. Francia Worley on 06/23/20, HTN, HLD, and incidentally noted multiple pulmonary nodules and plaques w/ associated mediastinal adenopathy referred to us for further workup. These findings have remained stable over time, and we would favor them to represent inflammatory changes and possibly reactive in the setting of his cardiac surgery. However, given their PET avidity and the patient's (admittedly remote) risk factors for lung cancer, we would favor bronchoscopy withbiopsy. If malignant, they would likely be on the adenocarcinoma spectrum given they are slow growing. - We will schedule the patient for bronchoscopy with linear EBUS for sampling of his mediastinal lymph nodes. Marlo Delgado MD Benefits Sales Consultant Cosigned by Mikel Bailey MD at 02/21/2022 8:27 AM CDT Associated attestation - Mikel Bailey MD - 02/21/2022 8:27 AM CDT I have seen and examined the patient. I agree with the findings and plan of care as documented in the resident/fellow's note. My total encounter time on 02/20/2022 was 35 minutes which was spent in the activities documented in the note. This includes time spent prior to the visit and after the visit in direct care of the patient. This time does not include time spent in any separately reportable services. documented in this encounter Plan of Treatment Not on file documented as of this encounter Visit Diagnoses Diagnosis Pleural 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 Pleurisy without mention of effusion or current tuberculosis Abnormal finding on lung imaging documented in this encounter Orders Outpatient Referral Count Last Ordered Date Fir st Ordered Date AMB REFERRAL TO PULMONOLOGY 1 02/20/2022 documented in this encounter Care Teams Car Customizer Relationship Specialty Start Date End Date Martin López MD [address] [address] PCP - General 06/27/12 Khalif Ca MD [address] [address] Referring Physician Cardiology 04/08/19 Francia Worley MD [address] [address] Surgeon Cardiothoracic Surgery 06/28/20 Tera Torre MD [address] [address] Consulting Physician Cardiology 06/28/20 documented as of this encounter
--- OUTSIDE RECORDS SUMMARY | 2024-04-20 00:14 | XMS_ITS | Encounter Summary ---
Author Organization [facility] Address [address] [place] [address] Care Team Providers Care Milling General Superintendent Name Role Phone Martin López MD Primary Care Provider Khalif Ca MD Unavailable [phone] Francia Worley MD Unavailable Tera Torre MD Unavailable [phone] Reason for Referral * MRI/CAT/PET Scan (Routine) - Closed Specialty Diagnoses / Procedures Referred By Bharat t Referred To Contact Radiology Diagnoses Solitary pulmonary nodule Procedures CT Chest WO Contrast Martin López MD [address] [place] [address] Phone: tel: fax: [address] [address] Referral ID Status Reason Start Date Expiration Date Visits Re quested Visits Authorized [id number] Closed 12/18/2021 12/17/2022 1 1 Reason for Visit * MRI/CAT/PET Scan (Routine) - Closed Specialty Diagnoses / Procedures Referred By Contac t Referred To Contact Radiology Diagnoses Solitary pulmonary nodule Procedures CT Chest WO Contrast Martin López MD [address] [place] [address] Phone: tel: fax: [place] [address] [address] [phone] Referral ID Status Reason Start Date Expiration Date Visits Re quested Visits Authorized [id number] Closed 12/18/2021 12/17/2022 1 1 Encounter Details Date Type Department Care Team (Latest Contact Info) Description 12/18/2021 2:38 PM CDT - 12/18/2021 11:59 PM CDT Hospital Encounter [facility] [address] [address] [phone] Solitary pulmonary nodule Discharge Disposition: Discharge to home or self care Social History Tobacco Use Types Packs/Day Years Used Date Smoking Tobacco: Never Smokeless Tobacco: Never Alcohol Use Standard Drinks/Week Comments Yes 0 (1 standard drink = 0.6 oz pur e alcohol) rare Sex and Gender Information Value Date Recorded Sex Assigned at Not on file 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 Unchanged multifocal groundglass nodules in both lungs, which remain suspicious for multifocal low-grade adenocarcinoma given persistence over multiple examinations. Recommend continued attention on follow-up imaging in 12 months. 2. Slight interval increase asymmetric right posterior mediastinal soft tissue thickening in the setting of calcified pleural plaques, suggesting prior asbestos exposure. If clinically indicated, this finding can be further evaluated with dedicated PET/CT or tissue sampling. Dictated by: Lee Noel M.D. The radiology attending physician has personally reviewed this study, and had reviewed and/or edited this written report and agrees with it. Electronically signed by: Yeison Rosado M.D. Narrative 12/18/2021 4:56 PM CDT EXAMINATION: ??Computed tomography of the chest without intravenous contrast HISTORY: 76-year-old male who presents for follow-up of pulmonary nodules. TECHNIQUE: ??Transaxial computed tomographic images of the chest were obtained without intravenous contrast according to the standard protocol. COMPARISON: CT of the chest without contrast dated 09/05/2021. FINDINGS: ?? Examination is mildly limited by respiratory motion artifact. Within the limitations of the examination, redemonstrated are multiple groundglass pulmonary nodules throughout both lungs. For reference, a right upper lobe groundglass pulmonary nodule (table position -1392.5) abutting the azygos fissure is stable, measuring 7 mm (previously measured 7 mm). An 8 mm right upper lobe groundglass pulmonary nodule (table position -1362.5) is also stable, previously measuring 8 mm. 12 mm right lower lobe pulmonary nodule (table position -1290.5) is also stable, previously measured 12 mm. 10 mm left lower lobe glass pulmonary nodule is also unchanged (table position -1290.5), previously measured 10 mm. Additional groundglass nodules in both lungs are also unchanged. No pleural effusion, pneumothorax, pulmonary edema, or pneumonia. Unchanged calcified pleural plaques in the left greater than right lung bases. The patient is status post a median sternotomy, the median sternotomy wires are aligned and intact. Postsurgical changes of aortic valve replacement are also noted. The noncontrast appearance of the thyroid gland is normal. Numerous subcentimeter supraclavicular and mediastinal lymph nodes are likely reactive in nature. The heart size is normal. There is multivessel calcified atherosclerosis of the coronary arteries. No pericardial effusion or pericardial thickening. The thoracic aorta is normal in course and caliber with mild calcified atherosclerosis of the thoracic aorta and its major branches. Limited examination of the upper abdomen demonstrates a few prominent gastrohepatic ligament lymph nodes, which is nonspecific and may be reactive in nature. There is unchanged soft tissue thickening within the right posterior mediastinum along the right lateral aspect of the T9 vertebral body. Multilevel degenerative changes of the spine. There is no suspicious lytic or blastic osseous lesion. Procedure Note Yeison Rosado MD - 12/18/2021 EXAMINATION: Computed tomography of the chest without intravenous contrast HISTORY: 76-year-old male who presents for follow-up of pulmonary nodules. TECHNIQUE: Transaxial computed tomographic images of the chest were obtained without intravenous contrast according to the standard protocol. COMPARISON: CT of the chest without contrast dated 09/05/2021. FINDINGS: Examination is mildly limited by respiratory motion artifact. Within the limitations of the examination, redemonstrated are multiple groundglass pulmonary nodules throughout both lungs. For reference, a right upper lobe groundglass pulmonary nodule (table position -1392.5) abutting the azygos fissure is stable, measuring 7 mm (previously measured 7 mm). An 8 mm right upper lobe groundglass pulmonary nodule (table position -1362.5) is also stable, previously measuring 8 mm. 12 mm right lower lobe pulmonary nodule (table position -1290.5) is also stable, previously measured 12 mm. 10 mm left lower lobe glass pulmonary nodule is also unchanged (table position -1290.5), previously measured 10 mm. Additional groundglass nodules in both lungs are also unchanged. No pleural effusion, pneumothorax, pulmonary edema, or pneumonia. Unchanged calcified pleural plaques in the left greater than right lung bases. The patient is status post a median sternotomy, the median sternotomy wires are aligned and intact. Postsurgical changes of aortic valve replacement are also noted. The noncontrast appearance of the thyroid gland is normal. Numerous subcentimeter supraclavicular and mediastinal lymph nodes are likely reactive in nature. The heart size is normal. There is multivessel calcified atherosclerosis of the coronary arteries. No pericardial effusion or pericardial thickening. The thoracic aorta is normal in course and caliber with mild calcified atherosclerosis of the thoracic aorta and its major branches. Limited examination of the upper abdomen demonstrates a few prominent gastrohepatic ligament lymph nodes, which is nonspecific and may be reactive in nature. There is unchanged soft tissue thickening within the right posterior mediastinum along the right lateral aspect of the T9 vertebral body. Multilevel degenerative changes of the spine. There is no suspicious lytic or blastic osseous lesion. IMPRESSION: 1. Unchanged multifocal groundglass nodules in both lungs, which remain suspicious for multifocal low-grade adenocarcinoma given persistence over multiple examinations. Recommend continued attention on follow-up imaging in 12 months. 2. Slight interval increase asymmetric right posterior mediastinal soft tissue thickening in the setting of calcified pleural plaques, suggesting prior asbestos exposure. If clinically indicated, this finding can be further evaluated with dedicated PET/CT or tissue sampling. Dictated by: Lee Noel M.D. The radiology attending physician has personally reviewed this study, and had reviewed and/or edited this written report and agrees with it. Electronically signed by: Yeison Rosado M.D. Martin López MD IMG CT PROCEDURES Final Result documented in this encounter Visit Diagnoses Diagnosis Solitary pulmonary nodule documented in this encounter Care Teams Milling General Superintendent Relationship Specialty Start Date End Date Martin López MD [address] [address] PCP - General 06/27/12 Khalif Ca MD [address] [facility] [address] [place] [address] Referring Physician Cardiology 04/08/19 Francia Worley MD [address] [address] Surgeon Cardiothoracic Surgery 06/28/20 Tera Torre MD [address] [address] Consulting Physician Cardiology 06/28/20 documented as of this encounter
--- OUTSIDE RECORDS SUMMARY | 2024-04-20 00:14 | XMS_ITS | Encounter Summary ---
Author Organization [facility] Address [address] [place] [address] Phone Care Team Providers Care Director Of Development And Marketing Name Role Phone Martin López MD Primary Care Provider Khalif Ca MD Unavailable [phone] Francia Worley MD Unavailable Tera Torre MD Unavailable Encounter Details Date Type Department Care Team (Late st Contact Info) Description 11/01/2021 10:30 AM CDT Office Visit [facility] Cardiology [facility] Medical Office Building [address] [place] [address] Tera Torre MD [facility] [place] [address] Nonrheumatic aortic valve stenosis (Primary Dx); Coronary artery disease involving assiniboine and gros ventre tribes coronary artery of assiniboine and gros ventre tribes heart without angina pectoris Social History Tobacco Use Types Packs/Day Years Used Date Smoking Tobacco: Never Smokeless Tobacco: Never Alcohol Use Standard Drinks/Week Comments Yes 0 (1 standard drink = 0.6 oz pur e alcohol) rare Sex and Gender Information Value Date Recorded Sex Assigned at Not on file 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 Gender Identity Male 07/25/2023 3:40 PM CDT Sexual Orientation Straight 10/28/2019 9: 50 AM CDT documented as of this encounter Last Filed Vital Signs Vital Sign Reading Time Taken Comments Blood Pressure 186/96 11/01/2021 10:14 AM CDT Pulse 66 11/01/2021 10:14 AM CDT Temperature - - Respiratory Rate - - Oxygen Saturation 99% 11/01/2021 10: 14 AM CDT Inhaled Oxygen Concentration - - Weight 82.9 kg (182 lb 12.8 oz) 022 10:14 AM CDT Height 176.5 cm (5' 9.5 ) 11/01/2021 10 :14 AM CDT Body Mass Index 26.61 11/01/2021 10:14 AM CDT documented in this encounter Patient Instructions * Patient Instructions* Erin Casas RN - 11/01/2021 10:38 AM CDT Follow up with Dr. Torre in 6 months. documented in this encounter Progress Notes * Tera Torre MD - 11/01/2021 10:30 AM CDT Images from the original note were not included. [facility] Department of Medicine Cardiovascular Division Tera Torre M.D. [facility], [place] [address], [address] [place] [id number], [email or web address] Date: 11/01/2021 Primary care Physician Martin López MD [address] [place] [address] Patient Name: Nathan Wagner Date of : 1945 PRINCIPAL AND SECONDARY DIAGNOSES: 1. Severe aortic [...] the pleasure of seeing Nathan Wagner today [facility] was [facility] for follow-up of his aortic stenosis and coronary artery disease. As you know, He is a pleasant 75 y.o. male who we last saw 6 months ago. Since that time he has generally felt quite well. He has been doing activities without limitations. He does have significant arthritis in his knees that slows him down some. Denies any chest pain pressure tightness. Denies any dizziness lightheadedness presyncope or syncopal episodes. He has been checking his blood pressure on a regular basis at home and frequently gets into the 130s to 140 systolic. He otherwise feels well with no problems today. He has been taking his medications as prescribed. CURRENT MEDICATIONS: Current Outpatient Medications: ??? acetaminophen (TYLENOL) 325 mg tablet ??? aspirin 81 mg enteric coated tablet ??? atorvastatin (LIPITOR) 80 mg tablet ??? lisinopriL (PRINIVIL,ZESTRIL) 20 mg tablet ??? metoprolol tartrate (LOPRESSOR) 25 mg immediate release tablet ??? montelukast (SINGULAIR) 10 mg tablet ??? travoprost (TRAVATAN Z) 0.004 % drops ??? clobetasol (TEMOVATE) 0.05 % external solution PHYSICAL EXAMINATION: Vitals: 11/01/21 1014 BP: (!) 186/96 BP Location: Right arm Patient Position: Sitting Pulse: 66 SpO2: 99% Weight: 82.9 kg (182 lb 12.8 oz) Height: 176.5 cm (5' 9.5 ) [...] artery disease. He is doing quite well from a coronary artery disease standpoint is having no symptoms of angina. He should continue his current medications without change. I encouraged him continue to get regular physical activity. 2. Aortic stenosis. He is doing well post surgical aortic valve replacement. He should continue hiscurrent medications without change 3. Hypertension. Patient clearly has some evidence of white coat hypertension with well-controlled blood pressures at home. I have encouraged to continue taking his medications this check his blood pressure intermittently to ensure is well controlled Thank you for allowing me to participate in the care of this patient. We would be happy to see him back in 6 months time or sooner as needed. Please don't hesitate to reach out with any questions or concerns. Tera Torre M.D. cosmetic manager CC: Martin López MD [address] [place] [place] [address] documented in this encounter Plan of Treatment Not on file documented as of this encounter Visit Diagnoses Diagnosis Nonrheumatic aortic valve stenosis- Primary Coronary artery disease involving assiniboine and gros ventre tribes coronary artery of assiniboine and gros ventre tribes heart without angina pectoris documented in this encounter Discontinued Medications Medication Sig Discontinue Reason Start Date End Da te pantoprazole DR (PROTONIX) 40 mg EC tabletIndications:Dominic atment of Non-Bleeding Gastric Disorder Take 1 tablet (40 mg total) by mouth 2 (two) times a day 06/28/2020 11/01/2021 latanoprost (XALATAN) 0.005 % ophthalmic solution Administer 1 drop into both eyes nightly 06/28/2020 11/01/2021 docusate sodium (COLACE) 100 mg capsuleIndications:co nstipation Take 1 capsule (100 mg total) by mouth 2 (two) times a day as needed for constipation 06/28/2020 11/01/2021 azelastine 0.15 % (205.5 mcg) spray,non-aerosolIndi cations:Seasonal Allergic Rhinitis Administer 1 spray into each nostril daily as needed 04/02/2016 11/01/2021 metoprolol tartrate (LOPRESSOR) 25 mg immediate release tablet Take 0.5 tablets (12.5 mg total) by mouth 2 (two) times a day 06/28/2020 11/01/2021 polyethylene glycol (MIRALAX) 17 gram packetIndications:con stipation Take 1 packet (17 g total) by mouth daily 06/29/2020 11/01/2021 documented as of this encounter Care Teams Director Of Development And Marketing Relationship Specialty Start Date End Date Martin López MD [address] [address] PCP - General 06/27/12 Khalif Ca MD [address] [address] Referring Physician Cardiology 04/08/19 Francia Worley MD [address] [address] Surgeon Cardiothoracic Surgery 06/28/20 Tera Torre MD [address] [address] Consulting Physician Cardiology 06/28/20 documented as of this encounter
--- OUTSIDE RECORDS SUMMARY | 2024-04-20 00:14 | XMS_ITS | Encounter Summary ---
Author Organization [facility] Address [address] [place] [address] Phone Care Team Providers Care Tools Administrator Name Role Phone Martin López MD Primary Care Provider Khalif Ca MD Unavailable [phone] Francia Worley MD Unavailable Tera Torre MD Unavailable [phone] Reason for Referral * Pulmonology (Routine) - Closed Specialty Diagnoses / Procedures Referred By Contac t Referred To Contact Pulmonology Diagnoses Pleural 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 Procedures [facility] -[facility] Interventional Pulm; Bronchoscopy, EBUS LINEAR Kvng Gross Chi, MD [address] [place] [address] Phone: tel: fax: [facility] Pulmonary [address] [facility] [address] [place] [address] Phone: tel: fax: Referral ID Status Reason Start Date Expiration Date Visits Re quested Visits Authorized [id number] Closed 02/26/2022 03/28/2023 1 1 Encounter Details Date Type Department Care Team (Late st Contact Info) Description 02/26/2022 Orders Only [facility]monary [address] [facility] 8th [place] [address] [place] [address] Alma Chen, RMA Pleural 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 (Primary Dx) Social History Tobacco Use Types [...] on file 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 Gender Identity Male 07/25/2023 3:40 PM CDT Sexual Orientation Straight 10/28/2019 9: 50 AM CDT documented as of this encounter Plan of Treatment Not on file documented as of this encounter Results * Bronchoscopy -[facility] Interventional Pulm; Bronchoscopy, EBUS LINEAR (03/05/2022 12:07 PM OPTICAL LABORATORY TECHNICIAN) Anatomical Region Laterality Modality Other Narrative Procedure Note Kvng Gross Chi, MD - 03/05/2022 12:07 PM CST [facility] Interventional Pulmonary Patient Name: Nathan Wagner Procedure Date: 03/05/2022 12:07 PM Date [...] 0 Note Initiated On: 03/05/2022 12:07 PM us Kvng Gross MD BRONCH ORDERABLES Final Re sult documented in this encounter Visit Diagnoses Diagnosis Pleural 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- Primary Pleurisy without mention of effusion or current tuberculosis Pleural 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 Pleurisy without mention of effusion or current tuberculosis documented in this encounter Care Teams Tools Administrator Relationship Specialty Start Date End Date Martin López MD [facility] [address] [address] PCP - General 06/27/12 Khalif Ca MD [address] [address] Referring Physician Cardiology 04/08/19 Francia Worley MD [address] [address] Surgeon Cardiothoracic Surgery 06/28/20 Tera Torre MD [address] [address] Consulting Physician Cardiology 06/28/20 documented as of this encounter
--- OUTSIDE RECORDS SUMMARY | 2024-04-20 00:15 | XMS_ITS | Encounter Summary ---
Author Organization [facility] Address [address] [place] [address] Phone Care Team Providers Care Cement Breaker Name Role Phone Martin López MD Primary Care Provider Khalif Ca MD Unavailable [phone] Francia Worley MD Unavailable Tera Torre MD Unavailable [phone] Reason for Referral * (Routine) - Closed Specialty Diagnoses / Procedures Referred By Contac t Referred To Contact Diagnoses Atrial fibrillation and flutter (HCC) Procedures ECG 12 lead Francia Worley MD [address] [facility] [address] [place] [address] Phone: tel: fax: [facility] (All Locations) Referral ID Status Reason Start Date Expiration Date Visits Re quested Visits Authorized [id number] Closed 07/20/2020 08/19/2021 1 1 Encounter Details Date Type Department Care Team (Latest Contact Info) Description 07/20/2020 8:00 AM CDT Procedure visit [facility] Cardiology [facility] Medical Office Building [address] [place] [address] Atrial fibrillation and flutter (CMS/HCC) (Primary Dx) Social History Tobacco Use Types Packs/Day Years Used Date Smoking Tobacco: Never Smokeless Tobacco: Never Alcohol Use Standard Drinks/Week Comments Yes 0 (1 standard drink = 0.6 oz pur e alcohol) rare Sex and Gender Information Value Date Recorded Sex Assigned at Not on file 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 Gender Identity Male 07/25/2023 3:40 PM CDT Sexual Orientation Straight 10/28/2019 9: 50 AM CDT documented as of this encounter Progress Notes * Dalia Yu CMA - 07/20/2020 8:00 AM CDT Walk in ekg for surgery pt documented in this encounter Plan of Treatment Not on file documented as of this encounter Procedures Procedure Name Priority Date/Time Associated Diagnosis Comments ECG 12-LEAD Routine 07/25/2020 9:17 AM CDT Atrial fibrillation and flutter (CMS/HCC) documented in this encounter Results * ECG 12 lead (07/25/2020 9:17 AM CDT) Francia Worley MD ECG ORDERABLES Edited Result - Final documented in this encounter Visit Diagnoses Diagnosis Atrial fibrillation and flutter (HCC)- Primary documented in this encounter Care Teams Cement Breaker Relationship Specialty Start Date End Date Martin López MD [facility] [address] [address] PCP - General 06/27/12 Khalif Ca MD [address] [address] Referring Physician Cardiology 04/08/19 Francia Worley MD [address] [facility] [address] [address] Surgeon Cardiothoracic Surgery 06/28/20 Tera Torre MD [facility] [address] [address] Consulting Physician Cardiology 06/28/20 documented as of this encounter
--- OUTSIDE RECORDS SUMMARY | 2024-04-20 00:15 | XMS_ITS | Encounter Summary ---
Author Organization [facility] Address [address] [facility] [address] [place] [address] Phone Care Team Providers Care Image Processing Engineer Name Role Phone Martin López MD Primary Care Provider Khalif Ca MD Unavailable [phone] Francia Worley MD Unavailable Tera Torre MD Unavailable [phone] Encounter Details Date Type Department Care Team (Late st Contact Info) Description 07/20/[address] 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 Gender Identity Male 07/25/2023 3:40 PM CDT Sexual Orientation Straight 10/28/2019 9: 50 AM CDT documented as of this encounter Ordered Prescriptions Prescription Sig Dispense Quantity Refills Last Filled Start Date End Date potassium chloride (KAYCIEL) solution 20 mEq/15 mLIndications:Aorti c valve stenosis, etiology of cardiac valve disease unspecified Take 15 mL (20 mEq total) by mouth daily 450 mL 07/20/2020 08/03/2020 documented in this encounter Progress Notes * Tanisha Jordan NP - 07/20/2020 12:58 PM CDT Medication lasix,kcl and metoprolol sent to pharmacy documented in this encounter Plan of Treatment Not on file documented as of this encounter Visit Diagnoses Diagnosis Aortic valve stenosis, etiology of cardiac valve disease unspecified- Primary documented in this encounter Care Teams Image Processing Engineer Relationship Specialty Start Date End Date Martin López MD [address] [address] PCP - General 06/27/12 Khalif Ca MD [address] [id number] Referring Physician Cardiology 04/08/19 Francia Worley MD [address] [id number] Surgeon Cardiothoracic Surgery 06/28/20 Tera Torre MD [address] [address] Consulting Physician Cardiology 06/28/20 documented as of this encounter
--- OUTSIDE RECORDS SUMMARY | 2024-04-20 00:15 | XMS_ITS | Encounter Summary ---
Author Organization [facility] Address [address] [facility] [address] [place] [address] Phone Care Team Providers Care Sales Representative Malt Liquors Name Role Phone Martin López MD Primary Care Provider Khalif Ca MD Unavailable [phone] Francia Worley MD Unavailable Tera Torre MD Unavailable Encounter Details Date Type Department Care Team (Late st Contact Info) Description 07/20/2020 Orders Only [facility] Surgery [address] [facility] Advanced [facility] 8th [place] [address] [place] [address] Tanisha Jordan, MARLENE [address] [facility] [id number] [place], [place] [id number] Social History Tobacco Use Types Packs/Day Years Used Date Smoking Tobacco: Never Smokeless Tobacco: Never Alcohol Use Standard Drinks/Week Comments Yes 0 (1 standard drink = 0.6 oz pur e alcohol) rare Sex and Gender Information Value Date Recorded Sex Assigned at Not on file Legal Sex Male 9:13 PM KAIAKO [employer]ORI Gender Identity Male 07/25/2023 3:40 PM CDT Sexual Orientation Straight 10/28/2019 9: 50 AM CDT documented as of this encounter Ordered Prescriptions Prescription Sig Dispense Quantity Refills Last Filled Start Date End Date metoprolol tartrate (LOPRESSOR) 25 mg immediate release tablet Take 1 tablet (25 mg total) by mouth 2 (two) times a day 60 tablet 11 07/20/2020 07/03/2021 documented in this encounter Plan of Treatment Not on file documented as of this encounter Visit Diagnoses Not on filedocumented in this encounter Care Teams Sales Representative Malt Liquors Relationship Specialty Start Date End Date Martin López MD [address] [facility] [address] [address] PCP - General 06/27/12 Khalif Ca MD [address] [place] [address] [address] Referring Physician Cardiology 04/08/19 Francia Worley MD [address] [place] [address] [address] Surgeon Cardiothoracic Surgery 06/28/20 Tera Torre MD [address] [place] [address] [address] Consulting Physician Cardiology 06/28/20 documented as of this encounter
--- OUTSIDE RECORDS SUMMARY | 2024-04-20 00:15 | XMS_ITS | Encounter Summary ---
Author Organization [facility] Address [address] [place] [address] Phone Care Team Providers Care Undercoater Name Role Phone Martin López MD Primary Care Provider Khalif Ca MD Unavailable [phone] Francia Worley MD Unavailable Tera Torre MD Unavailable [phone] Reason for Visit * Reason Comments Follow-up * Consultation (Routine) - Closed Specialty Diagnoses / Procedures Referred By Contac t Referred To Contact Cardiothoracic Surgery Diagnoses Coronary artery disease without angina pectoris, unspecified vessel or lesion type, unspecified whether [place] or transplanted heart Khalif Ca MD [address] [place] [address] Phone: tel: fax: [facility] (All Locations) Referral ID Status Reason Start Date Expiration Date V isits Requested Visits Authorized [id number] Closed Specialty Services Required 07/04/2020 08/03/2021 10 10 Encounter Details Date Type Department Care Team (Late st Contact Info) Description 08/10/2020 10:00 AM CDT Office Visit [facility] Surgery [address] [facility] [address] [place] [address] Social History Tobacco Use Types Packs/Day Years Used Date Smoking Tobacco: Never Smokeless Tobacco: Never Alcohol Use Standard Drinks/Week Comments Yes 0 (1 standard drink = 0.6 oz pur e alcohol) rare Sex and Gender Information Value Date Recorded Sex Assigned at Not on file 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 Gender Identity Male 07/25/2023 3:40 PM CDT Sexual Orientation Straight 10/28/2019 9: 50 AM CDT documented as of this encounter Last Filed Vital Signs Vital Sign Reading Time Taken Comments Blood Pressure 145/86 08/10/2020 10:11 AM CDT Pulse 65 08/10/2020 10:11 AM CDT Temperature - - Respiratory Rate - - Oxygen Saturation 98% 08/10/2020 10:11 AM CDT Inhaled Oxygen Concentration - - Weight 89.9 kg (198 lb 1.9 oz) 08/10/2020 10:11 AM CDT Height 176.5 cm (5' 9.5 ) 08/10/2020 10:11 AM CD T Body Mass Index 28.84 08/10/2020 10:11 AM CDT documented in this encounter Plan of Treatment Not on file documented as of this encounter Visit Diagnoses Not on filedocumented in this encounter Care Teams Undercoater Relationship Specialty Start Date End Date Martin López MD [address] [place] [address] PCP - General 06/27/12 Khalif Ca MD [address] [place] [address] Referring Physician Cardiology 04/08/19 Francia Worley MD [address] [address] Surgeon Cardiothoracic Surgery 06/28/20 Tera Torre MD [address] [address] Consulting Physician Cardiology 06/28/20 documented as of this encounter
--- OUTSIDE RECORDS SUMMARY | 2024-04-20 00:15 | XMS_ITS | Encounter Summary ---
Author Organization [facility] Address [address] [place] [address] Phone Care Team Providers Care Bi Developer Name Role Phone Martin López MD Primary Care Provider Khalif Ca MD Unavailable [phone] Francia Worley MD Unavailable Tera Torre MD Unavailable [phone] Encounter Details Date Type Department Care Team (Late st Contact Info) Description 07/08/2020 Telephone [facility] Cardiology [facility] Medical Office Building [address] [place] [address] Corie Tapia, RN Social History Tobacco Use Types Packs/Day Years Used Date Smoking Tobacco: Never Smokeless Tobacco: Never Alcohol Use Standard Drinks/Week Comments Yes 0 (1 standard drink = 0.6 oz pur e alcohol) rare Sex and Gender Information Value Date Recorded Sex Assigned at Not on file Legal Sex Male 9:13 PM DIRECTOR OF OPERATIONS SUPPORT Gender Identity Male 07/25/2023 3:40 PM CDT Sexual Orientation Straight 10/28/2019 9: 50 AM CDT documented as of this encounter Miscellaneous Notes * Telephone Encounter - Corie Tapia RN - 07/08/2020 10:10 AM DIRECTOR OF OPERATIONS SUPPORT PT Gained 4 lbs overnight but has no edema and lungs are clear. He thinks he had a 5 minute episodeof A-fib. He ate Hebrew food last night. No symptoms. Will continue to monitor. CTOR OF OPERATIONS SUPPORT documented in this encounter Plan of Treatment Not on file documented as of this encounter Visit Diagnoses Not on filedocumented in this encounter Care Teams Bi Developer Relationship Specialty Start Date End Date Martin Lópze MD [address] [address] PCP - General 06/27/12 Khalif Ca MD [address] [address] Referring Physician Cardiology 04/08/19 Francia Worley MD [address] [address] Surgeon Cardiothoracic Surgery 06/28/20 Tera Torre MD [address] [address] Consulting Physician Cardiology 06/28/20 documented as of this encounter
--- OUTSIDE RECORDS SUMMARY | 2024-04-20 00:15 | XMS_ITS | Encounter Summary ---
Author Organization [facility] Address [address] [place] [address] Phone Care Team Providers Care Web Designer Name Role Phone Martin López MD Primary Care Provider Khalif Ca MD Unavailable [phone] Francia Worley MD Unavailable Tera Torre MD Unavailable Encounter Details Date Type Department Care Team (Late st Contact Info) Description 08/08/2020 Telephone [facility] Card[facility] [address] [facility] Advanced Medicine 8th [place] [address] [place] [address] Tera Torre MD [address] [place] [address] Social History Tobacco Use Types Packs/Day Years Used Date Smoking Tobacco: Never Smokeless Tobacco: Never Alcohol Use Standard Drinks/Week Comments Yes 0 (1 standard drink = 0.6 oz pur e alcohol) rare Sex and Gender Information Value Date Recorded Sex Assigned at Not on file 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 * Telephone Encounter - Иван Mcclelland - 08/08/2020 9:28 AM CDT Yelitza Patient calling to discuss his incision following procedure, believes the sutures are coming loose? documented in this encounter Plan of Treatment Not on file documented as of this encounter Visit Diagnoses Not on filedocumented in this encounter Care Teams Web Designer Relationship Specialty Start Date End Date Martin López MD [address] [place], [place] [id number] PCP - General 06/27/12 Khalif Ca MD [address] [place], [place] [id number] Referring Physician Cardiology 04/08/19 Francia Worley MD [address] [facility] 120 [place], [place] [id number] Surgeon Cardiothoracic Surgery 06/28/20 Tera Torre MD [address] [place] [address] Consulting Physician Cardiology 06/28/20 documented as of this encounter
--- OUTSIDE RECORDS SUMMARY | 2024-04-20 00:15 | XMS_ITS | Encounter Summary ---
Author Organization [facility] Address [address] [place] [address] Phone Care Team Providers Care Computer Forensics Analyst Name Role Phone Martin López MD Primary Care Provider Khalif Ca MD Unavailable [phone] Francia Worley MD Unavailable Tera Torre MD Unavailable Encounter Details Date Type Department Care Team (Late st Contact Info) Description 07/14/[address] 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 Gender Identity Male 07/25/2023 3:40 PM CDT Sexual Orientation Straight 10/28/2019 9: 50 AM CDT documented as of this encounter Ordered Prescriptions Prescription Sig Dispense Quantity Refills Last Filled Start Date End Date sulfamethoxazole-t rimethoprim (BACTRIM) 400-80 mg per tablet Take 1 tablet by mouth 2 (two) times a day for 7 days 14 tablet 07/14/2020 07/21/2020 documented in this encounter Plan of Treatment Not on file documented as of this encounter Visit Diagnoses Not on filedocumented in this encounter Care Teams Computer Forensics Analyst Relationship Specialty Start Date End Date Martin López MD [address] [facility] 120 [place] [address] PCP - General 06/27/12 Khalif Ca MD [address] [address] Referring Physician Cardiology 04/08/19 Francia Worley MD [address] [address] Surgeon Cardiothoracic Surgery 06/28/20 Tera Torre MD [address] [address] Consulting Physician Cardiology 06/28/20 documented as of this encounter
--- OUTSIDE RECORDS SUMMARY | 2024-04-20 00:15 | XMS_ITS | Encounter Summary ---
Author Organization [facility] Address [address] [facility] [address] [place] [address] Phone Care Team Providers Care Jack [employer] All [employer]ades Name Role Phone Martin López MD Primary Care Provider Khalif Ca MD Unavailable [phone] Francia Worley MD Unavailable Tera Torre MD Unavailable Encounter Details Date Type Department Care Team (Late st Contact Info) Description 07/20/2020 Orders Only [facility] Surgery [address] [facility] Advanced Medicine 8th [place] [address] [place] [address] Tanisha Jordan, MARLENE [address] [facility] [address] [place], [place] [id number] Social History Tobacco Use Types Packs/Day Years Used Date Smoking Tobacco: Never Smokeless Tobacco: Never Alcohol Use Standard Drinks/Week Comments Yes 0 (1 standard drink = 0.6 oz pur e alcohol) rare Sex and Gender Information Value Date Recorded Sex Assigned at Not on file 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 Gender Identity Male 07/25/2023 3:40 PM CDT Sexual Orientation Straight 10/28/2019 9: 50 AM CDT documented as of this encounter Ordered Prescriptions Prescription Sig Dispense Quantity Refills Last Filled Start Date End Date furosemide (LASIX) 40 mg tablet Take 1 tablet (40 mg total) by mouth daily 30 tablet 07/20/2020 08/03/2020 documented in this encounter Plan of Treatment Not on file documented as of this encounter Visit Diagnoses Not on filedocumented in this encounter Care Teams Jack [employer] All Trades Relationship Specialty Start Date End Date Martin López MD [address] [place] [address] [address] [address] PCP - General 06/27/12 Khalif Ca MD [address] [place] [address] [place] [address] Referring Physician Cardiology 04/08/19 Francia Worley MD [address] [place] [address] Surgeon Cardiothoracic Surgery 06/28/20 Tera Torre MD [address] [place] [address] [place] [address] Consulting Physician Cardiology 06/28/20 documented as of this encounter
--- OUTSIDE RECORDS SUMMARY | 2024-04-20 00:15 | XMS_ITS | Encounter Summary ---
Author Organization [facility] Address [address] [place] [address] Phone Care Team Providers Care Hat Finisher Name Role Phone Martin López MD Primary Care Provider Khalif Ca MD Unavailable [phone] Francia Chiu MD Unavailable [facility] Un[facility] [phone] Reason for Visit * Cardiology (Routine) - Closed Specialty Diagnoses / Procedures Referred By Contac t Referred To Contact Diagnoses S/P AVR (aortic valve replacement) Procedures Transthoracic Echo Complete W Doppler/CF Francia Chiu MD [address] [facility] 120 [place] [address] Phone: tel: fax: [address] [address] Referral ID Status Reason Start Date Expiration Date Visits Re quested Visits Authorized [id number] Closed 07/04/2020 08/03/2021 1 1 Encounter Details Date Type Department Care Team (Latest Contact Info) Description 07/20/2020 10:00 AM CDT Ancillary Procedure [facility] [address] [facility] [address] [place] [address] Francia Chiu MD [address] [place] [address] S/P AVR (aortic valve replacement) Discharge Disposition: Discharge to home or self care Social History Tobacco Use Types Packs/Day Years Used Date Smoking Tobacco: Never Smokeless Tobacco: Never Alcohol Use Standard Drinks/Week Comments Yes 0 (1 standard drink = 0.6 oz pur e alcohol) rare Sex and Gender Information Value Date Recorded Sex Assigned at Not on file 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 Gender Identity Male 07/25/2023 3:40 PM CDT Sexual Orientation Straight 10/28/2019 9: 50 AM CDT documented as of this encounter Discharge Disposition Disposition Code Departure Means Destination Discharge to home or self care documented in this encounter Plan of Treatment Not on file documented as of this encounter Procedures Procedure Name Priority Date/Time Associated Diagnosis Comments TRANSTHORACIC ECHO (TTE) COMPLETE W DOPPLER/CF W CONTRAST Routine 07/20/2020 10:41 AM CDT S/P AVR (aortic valve replacement) documented in this encounter Results * TRANSTHORACIC ECHO (TTE) COMPLETE W DOPPLER/CF W CONTRAST (07/20/2020 10:41 AM CDT) Anatomical Region Laterality Modality Ultrasound 07/20/2020 10:0 0 AM CDT Narrative 07/20/2020 2:40 PM CDT Patient name: Nathan Wagner Date of test: 07/20/2020 Type of test: TTE w/Doppler [facility] #: [id number] Date of : 1945 (M) Bottle Line Worker: Shana North RDCS [facility] [address] Referring Physician: FRANCIA CHIU MD Contrast Agent: 0.6 ml Optison Administered, (2.4 ml wasted). Contrast Administered by: Chuyita Hanley RN Supervised/Interpreted by: Kyle Maya MD Diagnosis: Location: [facility] Reason for test: s/p AVR MV Structure: Normal, ?MV Motion: Normal, ?? [...] Variable ?2D Linear Normal ? Aotic Root: 3.5 cm ?<4.0 ? Ao Indexed: 1.7 cm/M2 <2.0 ? LA: ? <4.0 ? RV: ? 3.8 cm ?<4.2 ? LV(ED): ? 4.1 cm ?<5.9 ? LV(ES): ? 2.8 cm ?<4.0 ?2D Vol. ?? Normal ?Indexed ?? Indexed Normal RA: ? 40.0 ml ? 19.0 ml/M2 ?11-39 ? LA: ? 57.0 ml ? 27.0 ml/M2 ?16-34 ? RV: ? <12.7 ? LV(ED): ? 113.0 ml ??62-150 ?53.6 ml/M2 ?<75 ? LV(ES): ? 23.0 ml ?? 21-61 ? 10.9 ml/M2 ?<32 ?3D Vol. ? Indexed Normal LV(ED): ?<75 ? LV(ES): ?<32 ? LV EF: 80 % ?? (Normal: >=52%) ?? LV Septum: 1.5 cm ?(Normal: <1.0 cm) Wall Motion Scoring (1=Normal 2=Hypo 3=Akinetic 4=Dyskin./Aneurysm 0=Not visualized) Parasternal Long [place]:MAS=1 BAS=1 MIL=1 AGUSTÍN=1 Parasternal Short [place]:MAS=1 MIS=1 AZ=1 MIL=1 MAL=1 MA=1 Apical 4 Chambers:=1 MIS=1 BIS=1 BAL=1 MAL=1 AL=1 AC=1 Apical 2 Chambers:AI=1 AZ=1 BI=1 BA=1 MA=1 AA=1 AC=1 LV Global Longitudinal Strain: -16.1% ??(Normal <-17%) RV Global Longitudinal Strain: LV Function: Hyperdynamic LV Ejection Fraction (EF>73%) RV Function: Normal Septal Motion: Normal Pericardial Effusion: none seen Atrial Septum: Normal DOPPLER/COLOR FLOW DOPPLER RESULTS: Diastolic Function: Normal Tricuspid Valve: normal TV Pulmonic Valve: normal PV AV Regurgitation: No AR seen AV Stenosis: physio av AV Area: 1.6 cm2 AV Pressure Gradient (mmHg): Mean: 15, Peak:30 MV Regurgitation: No MR seen MV Stenosis: no MS MV Area: ??cm2 MV Pressure Gradient (mmHg): Mean: 0 MV ERO: ??cm Regurg. Vol.: ??ml/beat Regurg. Frac.: ??% PA Pressure: ??mmHg DOPPLER/COLOR FOLOW DOPPLER COMMENTS: No AR seen, No MR seen, physio av, no MS, normal TV, normal PV. Diastolic function: Normal LVOTd=2.2 cm ; TVI=22/51; Doppler Velocity Index= 0.43 CONTRAST: 0.6 ml Optison Administered, (2.4 ml wasted). SUMMARY: s/p aortic valve replacement with bioprosthesis, 25 mm Magna Ease, on 06/23/2020, plus CABG, wih excellent results; Physiologic mean and peak pressure gradients and effective valve orifice area. ??No AR seen; LV cavity size is normal. Hyperdynamic LV Ejection Fraction. Low-Normal global LV Myocardial longitudinal function and LV strain pattern. Normal pericardium without pericardial effusion. Previous studies showed severe pre-op. Confirmed on ??07/20/2020 - 14:40:45 by Kyle Maya MD By signing this report, the attending owner certifies that he or she has personally supervised and interpreted the echocardiogram and has reviewed and or edited and agrees with the written comments contained within the report. Procedure Note Kyle Maya MD - 07/20/2020 Patient name: Nathan Wagner Date of test: 07/20/2020 Type of test: TTE w/Doppler [facility] #: [id number] Date of : 1945 (M) Bottle Line Worker: Shana North [facility] Referring Physician: FRANCIA CHIU MD Contrast Agent: 0.6 ml Optison Administered, (2.4 ml wasted). Contrast Administered by: Chuyita Hanley RN Supervised/Interpreted by: Kyle Maya MD Diagnosis: Location: [facility] Reason for test: s/p AVR MV Structure: Normal, MV Motion: Normal, Mitral Annulus: Normal AV Structure: bioprosthesis and is Normal, AV Motion: Normal Aotic root: Normal, TM: Normal, PV: Normal Valvular Vegetations: none seen, Mass/Thrombi: none seen RA: Normal Measurements: M-Mode Normal Aotic Root: <3.8 LA: <4.0 RV: <2.8 LV(ED): <5.7 LV(ES): Variable 2D Linear Normal Aotic Root: 3.5 cm <4.0 Ao Indexed: 1.7 cm/M2 <2.0 LA: <4.0 RV: 3.8 cm <4.2 LV(ED): 4.1 cm <5.9 LV(ES): 2.8 cm <4.0 2D Vol. Normal Indexed Indexed Normal RA: 40.0 ml 19.0 ml/M2 11-39 LA: 57.0 ml 27.0 ml/M2 16-34 RV: <12.7 LV(ED): 113.0 ml 62-150 53.6 ml/M2 <75 LV(ES): 23.0 ml 21-61 10.9 ml/M2 <32 3D Vol. Indexed Normal LV(ED): <75 LV(ES): <32 LV EF: 80 % (Normal: >=52%) LV Septum: 1.5 cm (Normal: <1.0 cm) Wall Motion Scoring (1=Normal 2=Hypo 3=Akinetic 4=Dyskin./Aneurysm 0=Not visualized) Parasternal Long [place]:MAS=1 BAS=1 MIL=1 AGUSTÍN=1 Parasternal Short [place]:MAS=1 MIS=1 AZ=1 MIL=1 MAL=1 MA=1 Apical 4 Chambers:=1 MIS=1 BIS=1 BAL=1 MAL=1 AL=1 AC=1 Apical 2 Chambers:AI=1 AZ=1 BI=1 BA=1 MA=1 AA=1 AC=1 LV Global Longitudinal Strain: -16.1% (Normal <-17%) RV Global Longitudinal Strain: LV Function: Hyperdynamic LV Ejection Fraction (EF>73%) RV Function: Normal Septal Motion: Normal Pericardial Effusion: none seen Atrial Septum: Normal DOPPLER/COLOR FLOW DOPPLER RESULTS: Diastolic Function: Normal Tricuspid Valve: normal TV Pulmonic Valve: normal PV AV Regurgitation: No AR seen AV Stenosis: physio av AV Area: 1.6 cm2 AV Pressure Gradient (mmHg): Mean: 15, Peak:30 MV Regurgitation: No MR seen MV Stenosis: no MS MV Area: cm2 MV Pressure Gradient (mmHg): Mean: 0 MV ERO: cm Regurg. Vol.: ml/beat Regurg. Frac.: % PA Pressure: mmHg DOPPLER/COLOR FOLOW DOPPLER COMMENTS: No AR seen, No MR seen, physio av, no MS, normal TV, normal PV. Diastolic function: Normal LVOTd=2.2 cm ; TVI=22/51; Doppler Velocity Index= 0.43 CONTRAST: 0.6 ml Optison Administered, (2.4 ml wasted). SUMMARY: s/p aortic valve replacement with bioprosthesis, 25 mm Magna Ease, on 06/23/2020, plus CABG, fredo excellent results; Physiologic mean and peak pressure gradients and effective valve orifice area. No AR seen; LV cavity size is normal. Hyperdynamic LV Ejection Fraction. Low-Normal global LV Myocardial longitudinal function and LV strain pattern. Normal pericardium without pericardial effusion. Previous studies showed severe pre-op. Confirmed on 07/20/2020 - 14:40:45 by Kyle Maya MD By signing this report, the attending owner certifies that he or she has personally supervised and interpreted the echocardiogram and has reviewed and or edited and agrees with the written comments contained within the report. Francia Chiu MD CV ECHO PROCEDURES Final Result documented in this encounter Visit Diagnoses Diagnosis S/P AVR (aortic valve replacement) Heart valve replaced by other means documented in this encounter Administered Medications Inactive Administered Medications - up to 3 most recent administrations Medication Order MAR Action Action Date Dose Rate Site perflutren protein-a (OPTISON) 3 mL in sodium chloride 0.9% 8 mL syringe 1-8 mL, intravenous, Once in imaging, contrast, Starting on Sat07/20/20 at 0943, For 1 dose, Intra-Procedure (CV) Given 07/20/2020 10:34 AM CDT 1.5 mL documented in this encounter Orders Medications Ordered That Ernst ht Not Have Been Administered Count Last Ordered Date First Ordered Date perflutren protein-a (OPTISO N) 3 mL in sodium chloride 0.9% 8 mL syringe 1 07/20/2020 documented in this encounter Care Teams Hat Finisher Relationship Specialty Start Date End Date Martin López MD [address] [address] PCP - General 06/27/12 Khalif Ca MD [address] [place] [address] [address] [address] Referring Physician Cardiology 04/08/19 Francia Chiu MD [address] [facility] [address] [address] Surgeon Cardiothoracic Surgery 06/28/20 Tera Torre MD [address] [facility] [address] [facility] 120 [place] [id number] Consulting Physician Cardiology 06/28/20 documented as of this encounter
--- OUTSIDE RECORDS SUMMARY | 2024-04-20 00:15 | XMS_ITS | Encounter Summary ---
Author Organization [facility] Address [address] [place] [address] Care Team Providers Care Flyer Maker Name Role Phone Martin López MD Primary Care Provider Khalif Ca MD Unavailable [phone] Francia Worley MD Unavailable Tera Torre MD Unavailable [phone] Reason for Referral * Diagnostic Imaging (Routine) - Closed Specialty Diagnoses / Procedures Referred By Contac t Referred To Contact Diagnoses S/P CABG (coronary artery bypass graft) S/P AVR (aortic valve replacement) Follow-up examination following surgery Procedures XR Chest Pa Lateral 2 Views Francia Worley MD [address] [place] [address] Phone: tel: fax: [address] [address] Referral ID Status Reason Start Date Expiration Date Visits Re quested Visits Authorized [id number] Closed 07/04/2020 08/03/2021 1 1 Reason for Visit * Diagnostic Imaging (Routine) - Closed Specialty Diagnoses / Procedures Referred By Contac t Referred To Contact Diagnoses S/P CABG (coronary artery bypass graft) S/P AVR (aortic valve replacement) Follow-up examination following surgery Procedures XR Chest Pa Lateral 2 Views Francia Worley MD [address] [place] [address] Phone: tel: fax: [facility] [address] [address] Referral ID Status Reason Start Date Expiration Date Visits Re quested Visits Authorized [id number] Closed 07/04/2020 08/03/2021 1 1 Encounter Details Date Type Department Care Team (Latest Contact Info) Description 07/20/2020 9:15 AM CDT - 07/20/2020 11:59 PM CDT Hospital Encounter [facility] Imaging [id number] [address] Francia Worley MD [address] [place] [address] [place] [address] S/P CABG (coronary artery bypass graft); S/P AVR (aortic valve replacement); Follow-up examination following surgery Discharge Disposition: Discharge to home or self care Social History Tobacco Use Types Packs/Day Years Used Date Smoking Tobacco: Never Smokeless Tobacco: Never Alcohol Use Standard Drinks/Week Comments Yes 0 (1 standard drink = 0.6 oz pur e alcohol) rare Sex and Gender Information Value Date Recorded Sex Assigned at Not on file 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 Gender Identity Male 07/25/2023 3:40 PM [...] 1 drop into both eyes nightly 03/31/2015 ferrous sulfate 325 mg (65 mg of elemental iron) tabletIndications :Iron Deficiency Anemia Take 1 tablet (325 mg total) by mouth 2 (two) times a day with meals 60 tablet 1 06/28/2020 1 oxyCODONE (ROXICODONE) 5 mg immediate release tabletIndications :Pain Take 1 tablet (5 mg total) by mouth every 4 (four) hours as needed for pain 30 tablet 06/28/2020 1 sulfamethoxazole- trimethoprim (BACTRIM) 400-80 mg per tablet Take 1 tablet by mouth 2 (two) times a day for 7 days 14 tablet 07/14/2020 1 amiodarone (PACERONE) 400 mg tabletIndications :arrythmia Take 1 tablet (400 mg total) by mouth daily 30 tablet 1 06/29/2020 1 azelastine 0.15 % (205.5 mcg) spray,non-aerosol Indications:Seaso nal Allergic Rhinitis Administer 1 spray into each nostril daily as needed 04/02/2016 2 clobetasol (TEMOVATE) 0.05 % external solutionIndicatio ns:Dermatosis of the Scalp Apply 1 application topically 2 (two) times a day as needed 04/24/2019 2 docusate sodium (COLACE) 100 mg capsuleIndication s:constipation Take 1 capsule (100 mg total) by mouth 2 (two) times a day as needed for constipation 60 capsule 1 06/28/2020 2 furosemide (LASIX) 40 mg tablet Take 1 tablet (40 mg total) by mouth daily for 7 days 7 tablet 06/29/2020 1 furosemide (LASIX) 40 mg tablet Take 1 tablet (40 mg total) by mouth daily 30 tablet 07/20/2020 1 latanoprost (XALATAN) 0.005 % ophthalmic solution Administer 1 drop into both eyes nightly 2.5 mL 06/28/2020 2 metoprolol tartrate (LOPRESSOR) 25 mg immediate release tablet Take 0.5 tablets (12.5 mg total) by mouth 2 (two) times a day 30 tablet 1 06/28/2020 2 metoprolol tartrate (LOPRESSOR) 25 mg immediate release tablet Take 1 tablet (25 mg total) by mouth 2 (two) times a day 60 tablet 11 07/20/[address] (PROTONIX) 40 mg EC tabletIndications :Treatment of Non-Bleeding Gastric Disorder Take 1 tablet (40 mg total) by mouth 2 (two) times a day 60 tablet 1 06/28/2020 2 polyethylene glycol (MIRALAX) 17 gram packetIndications :constipation Take 1 packet (17 g total) by mouth daily 06/29/2020 2 potassium chloride (KAYCIEL) solution 20 mEq/15 mLIndications:Aor tic valve stenosis, etiology of cardiac valve disease unspecified Take 15 mL (20 mEq total) by mouth daily 450 mL 07/20/2020 1 documented as of this encounter Discharge Disposition Disposition Code Departure Means Destination Discharge to home or self care documented in this encounter Plan of Treatment Not on file documented as of this encounter Procedures Procedure Name Priority Date/Time Associated Diagnosis Comments XR CHEST PA LATERAL 2 VIEWS Schedule Routine, Read Routine (OP Routine) 07/20/2020 9:41 AM CDT S/P CABG (coronary artery bypass graft) S/P AVR (aortic valve replacement) Follow-up examination following surgery documented in this encounter Results * XR Chest Pa Lateral 2 Views (07/20/2020 9:41 AM CDT) Anatomical Region Laterality Modality Body, Chest N/A Computed Radiogr aphy 07/20/2020 10:1 4 AM CDT Impressions 07/20/2020 10:14 AM CDT Comparison is made to prior chest radiograph 06/26/2020. There has been interval placement of a cardiac loop recorder within the left anterior chest wall. The heart size is normal status post median sternotomy and aortic valve replacement. Previously present right central venous access line is been removed. There is no pneumothorax. The lungs are clear. 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 Electronically signed by: Keo Centeno M.D. Narrative 07/20/2020 10:14 AM CDT EXAMINATION: 2 view chest radiograph Procedure Note Keo Centeno MD - 07/20/2020 EXAMINATION: 2 view chest radiograph IMPRESSION: Comparison is made to prior chest radiograph 06/26/2020. There has been interval placement of a cardiac loop recorder within the left anterior chest wall. The heart size is normal status post median sternotomy and aortic valve replacement. Previously present right central venous access line is been removed. There is no pneumothorax. The lungs are clear. 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 Electronically signed by: Keo Centeno M.D. Francia Worley MD IMG XR PROCEDURES Final Result documented in this encounter Visit Diagnoses Diagnosis S/P CABG (coronary artery bypass graft) Postsurgical aortocoronary bypass status S/P AVR (aortic valve replacement) Heart valve replaced by other means Follow-up examination following surgery documented in this encounter Care Teams Flyer Maker Relationship Specialty Start Date End Date Martin López MD [address] [facility] [address] [place] [address] PCP - General 06/27/12 Khalif Ca MD [address] [address] Referring Physician Cardiology 04/08/19 Francia Worley MD [address] [facility] [address] [place] [address] Surgeon Cardiothoracic Surgery 06/28/20 Tera Torre MD [address] [facility] [address] [place] [address] Consulting Physician Cardiology 06/28/20 documented as of this encounter
--- OUTSIDE RECORDS SUMMARY | 2024-04-20 00:15 | XMS_ITS | Encounter Summary ---
Author Organization [facility] Address [address] [place] [address] Phone Care Team Providers Care Is Manager Name Role Phone Martin López MD Primary Care Provider Khalif Ca MD Unavailable [phone] Francia Worley MD Unavailable Tera Torre MD Unavailable [phone] Reason for Visit * Reason Comments Follow-up Encounter Details Date Type Department Care Team (Late st Contact Info) Description 08/03/2020 10:15 AM CDT Office Visit [facility] [address] [facility] Medical Office Building [address] [place] [address] Tera Torre MD [facility] [place] [address] Severe aortic stenosis (Primary Dx); Coronary artery disease involving [place] coronary artery of [place] heart without angina pectoris; Paroxysmal atrial fibrillation (CMS/HCC) Social History Tobacco Use Types Packs/Day Years Used Date Smoking Tobacco: Never Smokeless Tobacco: Never Alcohol Use Standard Drinks/Week Comments Yes 0 (1 standard drink = 0.6 oz pur e alcohol) rare Sex and Gender Information Value Date Recorded Sex Assigned at Not on file 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 Gender Identity Male 07/25/2023 3:40 PM CDT Sexual Orientation Straight 10/28/2019 9: 50 AM CDT documented as of this encounter Last Filed Vital Signs Vital Sign Reading Time Taken Comments Blood Pressure 140/62 08/03/2020 10:32 AM CDT Pulse 75 08/03/2020 10:32 AM CDT Temperature 36.8 ??C (98.2 ??F) 08/03/2020 1 0:32 AM CDT Respiratory Rate - - Oxygen Saturation 96% 08/03/2020 10: 32 AM CDT Inhaled Oxygen Concentration - - Weight 89.7 kg (197 lb 12.8 oz) 021 10:32 AM CDT Height 176.5 cm (5' 9.5 ) 08/03/2020 10 :32 AM CDT Body Mass Index 28.79 08/03/2020 10:32 AM CDT documented in this encounter Patient Instructions * Patient Instructions* Erin Casas RN - 08/03/2020 10:15 AM CDT Follow up with Dr. Torre in 3 months. documented in this encounter Progress Notes * Ernie Scruggs MD - 08/03/2020 10:15 AM CDT Images from the original note were not included. [facility] Department of Medicine Cardiovascular Division Tera Torre M.D. [facility], [address], [address] [place] [id number], [email or web address] Date: 08/03/2020 Primary care Physician Martin López MD [address] [place] [address] Patient Name: Nathan Wagner Date of : [...] today [facility] for follow-up of his aortic stenosis. As you know, He is a pleasant 74 y.o. male who we last saw 04/27/20. In the interval sine we last saw him, Mr. Wagner has undergone AVR with placement of a 25 mm Magna ease bioprosthetic valve and three vessel CABG with Dr. Worley on 06/23/20. He had brief paroxysms of atrial fibrillation post-operatively treated with amiodarone and was discharged with a 30 day event monitor. The decision was made to not anticoagulate for afib given recent diverticular bleed and history of H Pylori gastrointestinal bleeding. Since we last saw him he has done fantastic. He denies any shortness of breath PND orthopnea. Denies any chest pain pressure tightness. He is back to walkingon a regular basis and doing activities without any limitations. Overall he feels quite well and has no complaints. CURRENT MEDICATIONS: Current Outpatient Medications: ??? acetaminophen (TYLENOL) 325 mg tablet ??? amiodarone (PACERONE) 400 mg tablet ??? aspirin 81 mg enteric coated tablet ??? atorvastatin (LIPITOR) 80 mg tablet ??? azelastine 0.15 % (205.5 mcg) spray,non-aerosol ??? clobetasol (TEMOVATE) 0.05 % external solution ??? docusate sodium (COLACE) 100 mg capsule ??? furosemide (LASIX) 40 mg tablet ??? furosemide (LASIX) 40 mg tablet ??? latanoprost (XALATAN) 0.005 % ophthalmic solution ??? metoprolol tartrate (LOPRESSOR) 25 mg immediate release tablet ??? metoprolol tartrate (LOPRESSOR) 25 mg immediate release tablet ??? montelukast (SINGULAIR) 10 mg tablet ??? pantoprazole DR (PROTONIX) 40 mg EC tablet ??? polyethylene glycol (MIRALAX) 17 gram packet ??? potassium chloride (KAYCIEL) solution 20 mEq/15 mL ??? travoprost (TRAVATAN Z) 0.004 % drops PHYSICAL EXAMINATION: 140/62 HR 75 96% RA GENERAL: He is alert and oriented, in [...] symmetric. No lower extremity edema. LABORATORY DIAGNOSTICS: Review of his transthoracic echocardiogram images personally shows normal LV and RV function EF of 65%. He has a severely narrowed restricted calcified aortic valve. His mean gradient is now 50-55 mmHg with aortic valve area that is small 0.5 centimeter squared. He has a peak velocity of 4.5 m/sec. These gradients have progressed since his last echocardiogram. In addition he appears to have abnormal longitudinal strain imaging. Review of his laboratory testing shows an NT proBNP of 106. IMPRESSION AND PLAN: 1. Aortic stenosis. Patient is doing quite well post aortic valve replacement. I have asked him to discontinue his Lasix as he looks euvolemic. I inquired about his willingness to participate in cardiac rehab but he would rather do this on his own. He should remain on his other medications as prescribed and I have encouraged him to increase his physical activity as tolerated. 2. Coronary artery disease. He has undergone coronary bypass grafting and his graft harvest sites appear to be healing well. He is having no angina at the current time. He should continue his high potency statin and aspirin. 3. Atrial fibrillation. He has had no further atrial fibrillation and this was likely just in the postoperative setting. I would like to discontinue his amiodarone and continue to monitor for recurrence. He should remain on aspirin. 4. Hypertension. His blood pressure is slightly elevated today but has been under better control athome. I would like to continue to monitor this closely. He should continue his current medications. Thank you for allowing me to participate in the care of this patient. We would be happy to see him back in 3 months time or sooner as needed. Please don't hesitate to reach out with any questions or concerns. Tera Torre MD CC: Martin López MD [address] [address] Cosigned by Tera Torre MD at 08/05/2020 2:28 PM CDT documented in this encounter Plan of Treatment Not on file documented as of this encounter Visit Diagnoses Diagnosis Severe aortic stenosis- Primary Aortic valve disorders Coronary artery disease involving [place] coronary artery of [place] heart without angina pectoris Paroxysmal atrial fibrillation (CMS/HCC) (HCC) Atrial fibrillation documented in this encounter Discontinued Medications Medication Sig Discontinue Reason Start Date End Da te furosemide (LASIX) 40 mg tablet Take 1 tablet (40 mg total) by mouth daily 07/20/2020 08/03/2020 furosemide (LASIX) 40 mg tablet Take 1 tablet (40 mg total) by mouth daily for 7 days 06/29/2020 08/03/2020 amiodarone (PACERONE) 400 mg tabletIndications:arrythm ia Take 1 tablet (400 mg total) by mouth daily Other 06/29/2020 08/03/2020 potassium chloride (KAYCIEL) solution 20 mEq/15 mLIndications:Aortic valve stenosis, etiology of cardiac valve disease unspecified Take 15 mL (20 mEq total) by mouth daily Other 07/20/2020 08/03/2020 documented as of this encounter Care Teams Is Manager Relationship Specialty Start Date End Date Martin López MD [address] [place] [address] PCP - General 06/27/12 Khalif Ca MD [address] [place] [address] Referring Physician Cardiology 04/08/19 Francia Worley MD [address] [place] [address] Surgeon Cardiothoracic Surgery 06/28/20 Tera Torre MD [address] [facility] [address] [place] [address] Consulting Physician Cardiology 06/28/20 documented as of this encounter
--- OUTSIDE RECORDS SUMMARY | 2024-04-20 00:15 | XMS_ITS | Encounter Summary ---
Author Organization [facility] Address [address] [place] [address] Phone Care Team Providers Care Job Development Specialist Name Role Phone Martin López MD Primary Care Provider Khalif Ca MD Unavailable [phone] Francia Worley MD Unavailable Tera Torre MD Unavailable [phone] Reason for Referral * Diagnostic Imaging (Routine) - Closed Specialty Diagnoses / Procedures Referred By Contac t Referred To Contact Diagnoses S/P CABG (coronary artery bypass graft) S/P AVR (aortic valve replacement) Follow-up examination following surgery Procedures XR Chest Pa Lateral 2 Views Francia Worley MD [address] [facility] [address] [place] [address] Phone: tel: fax: [facility] [id number] [place] [phone] Referral ID Status Reason Start Date Expiration Date Visits Re quested Visits Authorized [id number] Closed 07/04/2020 08/03/2021 1 1 OPERATOR Encounter Details Date Type Department Care Team (Late st Contact Info) Description 07/04/[address] 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 Gender Identity Male 07/25/2023 3:40 PM [...] Diagnoses Diagnosis S/P CABG (coronary artery bypass graft)- Primary Postsurgical aortocoronary bypass status S/P AVR (aortic valve replacement) Heart valve replaced by other means Follow-up examination following surgery S/P CABG (coronary artery bypass graft) Postsurgical aortocoronary bypass status S/P AVR (aortic valve replacement) Heart valve replaced by other means Follow-up examination following surgery documented in this encounter Care Teams Job Development Specialist Relationship Specialty Start Date End Date Martin López MD [address] [place] [address] PCP - General 06/27/12 Khalif Ca MD [address] [place] [address] Referring Physician Cardiology 04/08/19 Francia Worley MD [address] [place], [place] [id number] Surgeon Cardiothoracic Surgery 06/28/20 Tera Torre MD [address] [place] [address] Consulting Physician Cardiology 06/28/20 documented as of this encounter
--- OUTSIDE RECORDS SUMMARY | 2024-04-20 00:15 | XMS_ITS | Encounter Summary ---
Author Organization [facility] Address [address] [facility] [address] [place] [address] Phone Care Team Providers Care Business Area Manager Name Role Phone Martin López MD Primary Care Provider Khalif Ca MD Unavailable [phone] Francia Worley MD Unavailable Tera Torre MD Unavailable Encounter Details Date Type Department Care Team (Late st Contact Info) Description 07/15/2020 Documentation [facility] Surgery [address] [facility] 8th [place] [address] [place] [address] Tanisha Jordan NP [address] [facility] [address] [place], [place] [id number] Social History Tobacco Use Types Packs/Day Years Used Date Smoking Tobacco: Never Smokeless Tobacco: Never Alcohol Use Standard Drinks/Week Comments Yes 0 (1 standard drink = 0.6 oz pur e alcohol) rare Sex and Gender Information Value Date Recorded Sex Assigned at Not on file 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 Gender Identity Male 07/25/2023 3:40 PM CDT Sexual Orientation Straight 10/28/2019 9: 50 AM CDT documented as of this encounter Progress Notes * Tanisha Jordan NP - 07/15/2020 2:29 PM CDT Reviewed BMP and CBC - no changes at this time.F/u as scheduled normal white count ,Hgb and HCT trending up and Cr 1.1 ( down) documented in this encounter Plan of Treatment Not on file documented as of this encounter Visit Diagnoses Not on filedocumented in this encounter Care Teams Business Area Manager Relationship Specialty Start Date End Date Martin López MD [address] [address] PCP - General 06/27/12 Khalif Ca MD [address] [address] Referring Physician Cardiology 04/08/19 Francia Worley MD [address] [address] Surgeon Cardiothoracic Surgery 06/28/20 Tera Torre MD [address] [address] Consulting Physician Cardiology 06/28/20 documented as of this encounter
--- OUTSIDE RECORDS SUMMARY | 2024-04-20 00:15 | XMS_ITS | Encounter Summary ---
Author Organization [facility] Address [address] [place] [address] Phone Care Team Providers Care Scientific Process Operator Name Role Phone Martin López MD Primary Care Provider Khalif Ca MD Unavailable [phone] Francia Worley MD Unavailable Tera Torre MD Unavailable [phone] Encounter Details Date Type Department Care Team (Late st Contact Info) Description 07/14/2020 Telephone [facility] Cardiology [address] [facility] Advanced Medicine 8th [place] [address] [place] [address] Corie Tapia, RN Social History Tobacco Use Types Packs/Day Years Used Date Smoking Tobacco: Never Smokeless Tobacco: Never Alcohol Use Standard Drinks/Week Comments Yes 0 (1 standard drink = 0.6 oz pur e alcohol) rare Sex and Gender Information Value Date Recorded Sex Assigned at Not on file 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 He will do daily wet to dry dressing and start Bactrim. We will see him this [facility]. HRN to draw CBC and BMP documented in this encounter Plan of Treatment Not on file documented as of this encounter Visit Diagnoses Not on filedocumented in this encounter Care Teams Scientific Process Operator Relationship Specialty Start Date End Date Martin López MD [address] [facility] [address] [place] [address] PCP - General 06/27/12 Khalif Ca MD [address] [address] Referring Physician Cardiology 04/08/19 Francia Worley MD [address] [address] Surgeon Cardiothoracic Surgery 06/28/20 Tera Torre MD [address] [address] Consulting Physician Cardiology 06/28/20 documented as of this encounter
--- OUTSIDE RECORDS SUMMARY | 2024-04-20 00:15 | XMS_ITS | Encounter Summary ---
Author Organization [facility] Address [address] [facility] [address] [place] [address] Phone Care Team Providers Care Manipulative Therapy Specialist Name Role Phone Martin López MD Primary Care Provider Khalif Ca MD Unavailable [phone] Francia Worley MD Unavailable [facility] Un[facility] [phone] Reason for Visit * Consultation (Routine) - Closed Specialty Diagnoses / Procedures Referred By Contac t Referred To Contact Cardiothoracic Surgery Diagnoses Coronary artery disease without angina pectoris, unspecified vessel or lesion type, unspecified whether [place] or transplanted heart Khalif Ca MD [address] [place] [address] [address] [place] [address] Phone: tel: fax: [facility] (All Locations) Referral ID Status Reason Start Date Expiration Date V isits Requested Visits Authorized [id number] Closed Specialty Services Required 07/04/2020 08/03/2021 10 10 Encounter Details Date Type Department Care Team (Late st Contact Info) Description 07/20/2020 12:00 PM CDT Office Visit [facility] Surgery [address] [facility] [address] [place] [phone] Francia Worley MD [address] [facility] [address]-28 [place] [address] S/P CABG (coronary artery bypass graft) (Primary Dx); Follow-up examination following surgery; S/P AVR (aortic valve replacement); Coronary artery disease without angina pectoris, unspecified vessel or lesion type, unspecified whether [place] or transplanted heart Social History Tobacco Use Types Packs/Day Years Used Date Smoking Tobacco: Never Smokeless Tobacco: Never Alcohol Use Standard Drinks/Week Comments Yes 0 (1 standard drink = 0.6 oz pur e alcohol) rare Sex and Gender Information Value Date Recorded Sex Assigned at Not on file 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 Gender Identity Male 07/25/2023 3:40 PM CDT Sexual Orientation Straight 10/28/2019 9: 50 AM CDT documented as of this encounter Last Filed Vital Signs Vital Sign Reading Time Taken Comments Blood Pressure 130/80 07/20/2020 11:47 AM CDT Pulse 85 07/20/2020 11:47 AM CDT Temperature 37.1 ??C (98.7 ??F) 07/20/2020 1 1:47 AM CDT Respiratory Rate - - Oxygen Saturation 98% 07/20/2020 11: 47 AM CDT Inhaled Oxygen Concentration - - Weight 91.5 kg (201 lb 12.8 oz) 021 11:47 AM CDT Height 175.3 cm (5' 9 ) 07/20/2020 11:4 7 AM CDT Body Mass Index 29.8 07/20/2020 11:47 AM CDT documented in this encounter Progress Notes * Francia Worley MD - 07/20/2020 12:[address] Tera Torre, I recently had the pleasure of seeing one of your patients, Mr. Nathan Wagner, in my office on 07/20/2020for a post-operative visit. As you may know, Mr. Wagner is a 74 y.o. gentleman who underwentaortic valve replacement (25mm Magna Ease) and coronary artery bypass grafting x 3 (radial-LAD/OM, SVG-PDA) on 06/23/2020. He had postoperative atrial fibrillation that was controlled with amiodarone.He was discharged with a 30 day event monitor on 06/28/2020. We did not start anticoagulation due to a recent diverticular bleed. He was started on Bactrim 5 days ago for some minor drainage from the inferior aspect of his sternum. In clinic today, he feels well. He denies chest pain, shortness of breath or orthopnea. He reports occasional episodes of palpitations and some mild lower extremity edema. Current Medications: Current Outpatient Medications on File Prior to Visit Medication Sig Dispense Refill ??? acetaminophen (TYLENOL) 325 mg tablet Take 2 tablets (650 mg total) by mouth every 4 (four) hours as needed for pain 30 tablet ??? amiodarone (PACERONE) 400 mg tablet Take 1 tablet (400 mg total) by mouth daily 30 tablet 1 ??? aspirin 81 mg enteric coated tablet Take 81 mg by mouth every morning ??? atorvastatin (LIPITOR) 80 mg tablet Take 1 tablet (80 mg total) by mouth daily 30 tablet 1 ??? clobetasol (TEMOVATE) 0.05 % external solution Apply 1 application topically 2 (two) times a day as needed ??? docusate sodium (COLACE) 100 mg capsule Take 1 capsule (100 mg total) by mouth 2 (two) times a day as needed for constipation 60 capsule 1 ??? ferrous sulfate 325 mg (65 mg of elemental iron) tablet Take 1 tablet (325 mg total) by mouth 2(two) times a day with meals 60 tablet 1 ??? metoprolol tartrate (LOPRESSOR) 25 mg immediate release tablet Take 0.5 tablets (12.5 mg total)by mouth 2 (two) times a day 30 tablet 1 ??? montelukast (SINGULAIR) 10 mg tablet Take 10 mg by mouth nightly ??? pantoprazole DR (PROTONIX) 40 mg EC tablet Take 1 tablet (40 mg total) by mouth 2 (two) times aday 60 tablet 1 ??? sulfamethoxazole-trimethoprim (BACTRIM) 400-80 mg per tablet Take 1 tablet by mouth 2 (two) times a day for 7 days 14 tablet 0 ??? travoprost (TRAVATAN Z) 0.004 % drops Administer 1 drop into both eyes nightly ??? azelastine 0.15 % (205.5 mcg) spray,non-aerosol Administer 1 spray into each nostril daily as needed ??? furosemide (LASIX) 40 mg tablet Take 1 tablet (40 mg total) by mouth daily for 7 days (Patient not taking: Reported on 07/20/2020) 7 tablet 0 ??? latanoprost (XALATAN) 0.005 % ophthalmic solution Administer 1 drop into both eyes nightly (Patient not taking: Reported on 07/20/2020) 2.5 mL ??? oxyCODONE (ROXICODONE) 5 mg immediate release tablet Take 1 tablet (5 mg total) by mouth every 4 (four) hours as needed for pain (Patient not taking: Reported on 07/20/2020) 30 tablet 0 ??? polyethylene glycol (MIRALAX) 17 gram packet Take 1 packet (17 g total) by mouth daily (Patientnot taking: Reported on 07/20/2020) No current facility-administered medications on file prior to visit. Physical Examination: Vitals BP 130/80 (BP Location: Right arm, Patient Position: Sitting) Pulse 85 Temp 37.1 ??C (98.7 ??F) (Temporal) Ht 175.3 cm (5' 9 ) Wt 91.5 kg (201 lb 12.8 oz) SpO2 98% BMI 29.80 kg/m?? His sternotomy, SVG and left radial artery harvest sites are healing. The inferior aspect of his sternotomy is clean and steris were placed. Lungs are clear to auscultation. Cardiac exam reveals no murmurs, rubs, or gallops. There is no lower extremity edema. Diagnostic Review: Chest Xray revealed no pathology. EKG revealed sinus rhythm with RBBB. Transthoracic echocardiogram from today demonstrates hyperdynamic LV function with EF 80%, well functioning bioprosthetic aortic valve with mean gradient 15mmHg, no perivalvular insufficiency, no MR or TR Assessment and Plan: Mr. Nathan Wagner is a 74 year old gentleman who is recovering after surgical revascularization and aortic valve replacement. I have increased his Metoprolol to 25mg twice daily and resumed Lasix 40mg for another week to help with the edema. I would continue the Amiodarone and defer his anticoagulation strategy to you based on the 30 day event monitor results. He is cleared to begin cardiac rehabilitation once he sees you in your office. It has certainly been a pleasure participating in Mr. Wagner's care. If I can be of any further assistance in the future, please do not hesitate to contact me at . Sincerely, Francia Worley MD sales and marketing administrator Division of Cardiothoracic Surgery documented in this encounter Plan of Treatment Not on file documented as of this encounter Visit Diagnoses Diagnosis S/P CABG (coronary artery bypass graft)- Primary Postsurgical aortocoronary bypass status Follow-up examination following surgery S/P AVR (aortic valve replacement) Heart valve replaced by other means Coronary artery disease without angina pectoris, unspecified vessel or lesion type, unspecified whether [place] or transplanted heart documented in this encounter Orders Outpatient Referral Count Last Ordered Date Fir st Ordered Date AMB REFERRAL TO CARDIOTHORACIC SURGERY 1 documented in this encounter Care Teams Manipulative Therapy Specialist Relationship Specialty Start Date End Date Martin López MD [address] [address] PCP - General 06/27/12 Khalif Ca MD [address] [address] Referring Physician Cardiology 04/08/19 Francia Worley MD [address] [id number] Surgeon Cardiothoracic Surgery 06/28/20 Tera Torre MD [address] [id number] Consulting Physician Cardiology 06/28/20 documented as of this encounter
--- OUTSIDE RECORDS SUMMARY | 2024-04-20 00:15 | XMS_ITS | Encounter Summary ---
Author Organization [facility] Address [address] [place] [address] Phone Care Team Providers Care Rooms Director Name Role Phone Martni López MD Primary Care Provider Khalif Ca MD Unavailable [phone] Francia Worley MD Unavailable Tera Torre MD Unavailable Encounter Details Date Type Department Care Team (Late st Contact Info) Description 07/25/2020 Telephone [facility] Cardiology [address] [facility] Advanced Medicine 8th [place] [address] [place] [address] Tera Torre MD [address] [place] [address] Social History Tobacco Use Types Packs/Day Years Used Date Smoking Tobacco: Never Smokeless Tobacco: Never Alcohol Use Standard Drinks/Week Comments Yes 0 (1 standard drink = 0.6 oz pur e alcohol) rare Sex and Gender Information Value Date Recorded Sex Assigned at Not on file 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 Wagner, his event monitor is giving him an error message and [facility] is unable to correct it over the phone. He is scheduled to complete 30 day monitor on Saturday, by the time theywould be able to get him a new monitor this time would have passed. Pt will take off monitor 1.5 days early and send back to [facility]. I informed the pt I will update Dr. Torre and we will watch for the report. No further questions. * Telephone Encounter - Nubia Herrera - 07/25/2020 9:48 AM CDT Yelitza Pt called states the holter monitor he has is not functioning properly, pt wants to know if its ok to remove it. States he is supposed to be done with it later this week, please call. documented in this encounter Plan of Treatment Not on file documented as of this encounter Visit Diagnoses Not on filedocumented in this encounter Care Teams Rooms Director Relationship Specialty Start Date End Date Martin López MD [address] [address] PCP - General 06/27/12 Khalif Ca MD [address] [address] Referring Physician Cardiology 04/08/19 Francia Worley MD [address] [place] [address] Surgeon Cardiothoracic Surgery 06/28/20 Tera Torre MD [address] [address] Consulting Physician Cardiology 06/28/20 documented as of this encounter
--- OUTSIDE RECORDS SUMMARY | 2024-04-20 00:15 | XMS_ITS | Encounter Summary ---
Author Organization [facility] Address [address] [place] [address] Phone Care Team Providers Care Accounts Payable Technician Name Role Phone Martin López MD Primary Care Provider Khalif Ca MD Unavailable [phone] Francia Worley MD Unavailable Tera Torre MD Unavailable [phone] Encounter Details Date Type Department Care Team (Late st Contact Info) Description 07/15/2020 Orders Only [facility] Surgery [address] [facility] Advanced Medicine 8th [place] [address] [place] [address] Provider, MD Yasmeen [address] [place] [address] Social History Tobacco Use Types Packs/Day Years Used Date Smoking Tobacco: Never Smokeless Tobacco: Never Alcohol Use Standard Drinks/Week Comments Yes 0 (1 standard drink = 0.6 oz pur e alcohol) rare Sex and Gender Information Value Date Recorded Sex Assigned at Not on file 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 Gender Identity Male 07/25/2023 3:40 PM CDT Sexual Orientation Straight 10/28/2019 9: 50 AM CDT documented as of this encounter Plan of Treatment Not on file documented as of this encounter Procedures Procedure Name Priority Date/Time Associated Diagnosis Comments SCANNED LABS Routine 07/14/2020 documented in this encounter Results * Scanned Labs (07/14/2020) us Historical Provider LAB BLOOD ORDERABLES Donna l Result documented in this encounter Visit Diagnoses Not on filedocumented in this encounter Care Teams Accounts Payable Technician Relationship Specialty Start Date End Date Martin López MD [address] [address] PCP - General 06/27/12 Khalif Ca MD [facility] [address] [address] Referring Physician Cardiology 04/08/19 Francia Worley MD [address] [address] Surgeon Cardiothoracic Surgery 06/28/20 Tera Torre MD [address] [address] Consulting Physician Cardiology 06/28/20 documented as of this encounter
--- OUTSIDE RECORDS SUMMARY | 2024-04-20 00:16 | XMS_ITS | Encounter Summary ---
Author Organization [facility] Address [address] [place] [address] Phone Care Team Providers Care Starting Gate Driver Name Role Phone Martin López MD Primary Care Provider Khalif Ca MD Unavailable [phone] Francia Worley MD Unavailable Tera Torre MD Unavailable Reason for Visit * Reason Onset Date Comments MCT per [facility] 06/28/2020 Encounter Details Date Type Department Care Team (Late st Contact Info) Description 06/28/2020 Telephone [facility] Cardiology [address] [facility] 8th [place] [address] [place] [address] Tera Torer MD [address] [place] [address] MCT per [facility] Social History Tobacco Use Types Packs/Day Years Used Date Smoking Tobacco: Never Smokeless Tobacco: Never Alcohol Use Standard Drinks/Week Comments Yes 0 (1 standard drink = 0.6 oz pur e alcohol) rare Sex and Gender Information Value Date Recorded Sex Assigned at Not on file Legal Sex Male 9: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 Torre saw in house. She wanted you to know that pt will be getting a 30 day monitor today and they are sending Dr. Torre the results. R SECOND documented in this encounter Plan of Treatment Not on file documented as of this encounter Visit Diagnoses Not on filedocumented in this encounter Care Teams Starting Gate Driver Relationship Specialty Start Date End Date Martin López MD [address] [facility] [address] [place] [address] PCP - General 06/27/12 Khalif Ca MD [address] [address] Referring Physician Cardiology 04/08/19 Francia Worley MD [address] [address] Surgeon Cardiothoracic Surgery 06/28/20 Tera Torre MD [address] [address] Consulting Physician Cardiology 06/28/20 documented as of this encounter
--- OUTSIDE RECORDS SUMMARY | 2024-04-20 00:16 | XMS_ITS | Encounter Summary ---
Author Organization [facility] Address [address] [place] [address] Phone Care Team Providers Care Enhanced Environmental Operator Name Role Phone Martin López MD Primary Care Provider Khalif Ca MD Unavailable [phone] Francia Worley MD Unavailable Tera Torre MD Unavailable [phone] Encounter Details Date Type Department Care Team (Late st Contact Info) Description 07/04/2020 Telephone [facility] Cardiology [address] [facility] Advanced Medicine 8th [place] [address] [place] [address] Corie Tapia RN Social History Tobacco Use Types Packs/Day Years Used Date Smoking Tobacco: Never Smokeless Tobacco: Never Alcohol Use Standard Drinks/Week Comments Yes 0 (1 standard drink = 0.6 oz pur e alcohol) rare Sex and Gender Information Value Date Recorded Sex Assigned at Not on file Legal Sex Male 9:13 PM DAYCARE ASSISTANT Gender Identity Male 07/25/2023 3:40 PM CDT Sexual Orientation Straight 10/28/2019 9: 50 AM CDT documented as of this encounter Miscellaneous Notes * Telephone Encounter - Corie Tapia RN - 07/04/2020 8:34 AM DAYCARE ASSISTANT Feels PT is having bouts of A-Fib. Asymptomatic. 70-130. Will continue to monitor for Now. He is wearing his 30 day monitor. ARE ASSISTANT documented in this encounter Plan of Treatment Not on file documented as of this encounter Visit Diagnoses Not on filedocumented in this encounter Care Teams Enhanced Environmental Operator Relationship Specialty Start Date End Date Martin López MD [address] [address] PCP - General 06/27/12 Khalif Ca MD [address] [place] [address] [address] Referring Physician Cardiology 04/08/19 Francia Worley MD [address] [place] [address] [address] Surgeon Cardiothoracic Surgery 06/28/20 Tera Torre MD [address] [place] [address] [address] Consulting Physician Cardiology 06/28/20 documented as of this encounter
--- OUTSIDE RECORDS SUMMARY | 2024-04-20 00:16 | XMS_ITS | Encounter Summary ---
Author Organization [facility] Address [address] [facility] [address] [place] [address] Phone Care Team Providers Care Drapery Examiner Name Role Phone Martin López MD Primary Care Provider Khalif Ca MD Unavailable [phone] Francia Chiu MD Unavailable Tera Torre MD Unavailable [phone] Reason for Referral * Cardiology (Routine) - Closed Specialty Diagnoses / Procedures Referred By Contac t Referred To Contact Diagnoses S/P AVR (aortic valve replacement) Procedures Transthoracic Echo Complete W Doppler/CF Francia Chiu MD [address] [facility] [address] [place] [address] Phone: tel: fax: [address] [address] Referral ID Status Reason Start Date Expiration Date Visits Re quested Visits Authorized [id number] Closed 07/04/2020 08/03/2021 1 1 CTOR DATA ANALYTICS Encounter Details Date Type Department Care Team (Late st Contact Info) Description 07/04/2020 Orders Only [facility] Surgery [address] [facility] 8th [place] [address] [place] [address] Francia Chiu MD [address] [facility] [id number] [place] [address] S/P AVR (aortic valve replacement) (Primary Dx) Social History Tobacco Use Types Packs/Day Years Used Date Smoking Tobacco: Never Smokeless Tobacco: Never Alcohol Use Standard Drinks/Week Comments Yes 0 (1 standard drink = 0.6 oz pur e alcohol) rare Sex and Gender Information Value Date Recorded Sex Assigned at Not on file Legal Sex Male 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 Gender Identity Male 07/25/2023 3:40 PM CDT Sexual Orientation Straight 10/28/2019 9: 50 AM CDT documented as of this encounter Plan of Treatment Not on file documented as of this encounter Results * TRANSTHORACIC ECHO (TTE) COMPLETE W DOPPLER/CF W CONTRAST (07/20/2020 10:41 AM CDT) Anatomical Region Laterality Modality Ultrasound 07/20/2020 10:0 0 AM CDT Narrative 07/20/2020 2:40 PM CDT Patient name: Nathan Wagner Date of test: 07/20/2020 Type of test: TTE w/Doppler [facility] #: [id number] Date of : 1945 (M) Audit Partner: Shana North RDCS [facility] Referring Physician: FRANCIA CHIU MD Contrast Agent: 0.6 ml Optison Administered, (2.4 ml wasted). Contrast Administered by: Chuyita Hanley RN Supervised/Interpreted by: Kyle Maya MD Diagnosis: Location: [facility] Reason for test: s/p AVR MV Structure: [...] 2=Hypo 3=Akinetic 4=Dyskin./Aneurysm 0=Not visualized) Parasternal Long [place]:MAS=1 BAS=1 MIL=1 AGUSTÍN=1 Parasternal Short [place]:MAS=1 MIS=1 NV=1 MIL=1 MAL=1 MA=1 Apical 4 Chambers:=1 MIS=1 BIS=1 BAL=1 MAL=1 AL=1 AC=1 Apical 2 Chambers:AI=1 NV=1 BI=1 BA=1 MA=1 AA=1 AC=1 LV Global [...] MD By signing this report, the attending cement cutter certifies that he or she has personally supervised and interpreted the echocardiogram and has reviewed and or edited and agrees with the written comments contained within the report. Procedure Note Kyle Maya MD - 07/20/2020 Patient name: Nathan Wagner Date of test: 07/20/2020 Type of test: TTE /[facility] #: [id number] Date of : 1945 (M) Audit Partner: Shana North RDCS [facility] Referring Physician: FRANCIA CHIU MD Contrast Agent: 0.6 ml Optison Administered, (2.4 ml wasted). Contrast Administered by: Chuyita Hanley RN Supervised/Interpreted by: Kyle Maya MD Diagnosis: Location: [facility] Reason for test: s/p AVR MV Structure: [...] 2=Hypo 3=Akinetic 4=Dyskin./Aneurysm 0=Not visualized) Parasternal Long [place]:MAS=1 BAS=1 MIL=1 AGUSTÍN=1 Parasternal Short [place]:MAS=1 MIS=1 NV=1 MIL=1 MAL=1 MA=1 Apical 4 Chambers:=1 MIS=1 BIS=1 BAL=1 MAL=1 AL=1 AC=1 Apical 2 Chambers:AI=1 NV=1 BI=1 BA=1 MA=1 AA=1 AC=1 LV Global [...] MD By signing this report, the attending cement cutter certifies that he or she has personally supervised and interpreted the echocardiogram and has reviewed and or edited and agrees with the written comments contained within the report. Francia Chiu MD CV ECHO PROCEDURES Final Result documented in this encounter Visit Diagnoses Diagnosis S/P AVR (aortic valve replacement)- Primary Heart valve replaced by other means S/P AVR (aortic valve replacement) Heart valve replaced by other means documented in this encounter Care Teams Drapery Examiner Relationship Specialty Start Date End Date Martin López MD [address] [place] [address] [place] [address] PCP - General 06/27/12 Khalif Ca MD [address] [place] [address] [place] [address] Referring Physician Cardiology 04/08/19 Francia Chiu MD [address] [place] [address] [place] [address] Surgeon Cardiothoracic Surgery 06/28/20 Tera Torre MD [facility] [address] [place] [address] Consulting Physician Cardiology 06/28/20 documented as of this encounter
--- OUTSIDE RECORDS SUMMARY | 2024-04-20 00:16 | XMS_ITS | Encounter Summary ---
Author Organization [facility] Healthcare Address [address] [place] [address] Care Team Providers Care Junior Qa Analyst Name Role Phone Martin López MD Primary Care Provider Khalif Ca MD Unavailable [phone] Felton Chiu MD Unavailable Tera Torre MD Unavailable Encounter Details Date Type Department Care Team (Latest Contact Info) Description 06/23/2020 5:17 AM DISTRICT SUPERVISOR - 06/28/2020 6:05 PM DISTRICT SUPERVISOR Hospital Encounter [facility] [address] [place] [address] Felton Chiu MD [id number] [place] [address] Severe aortic stenosis (Primary Dx) Discharge Disposition: Discharge to home, home health skilled care Social History Tobacco Use Types Packs/Day Years Used Date Smoking Tobacco: Never Smokeless Tobacco: Never Alcohol Use Standard Drinks/Week Comments Yes 0 (1 standard drink = 0.6 oz pur e alcohol) rare Sex and Gender Information Value Date Recorded Sex Assigned at Not on file Legal Sex Male 9:13 PM DISTRICT SUPERVISOR Gender Identity Male 07/25/2023 3:40 PM CDT Sexual Orientation Straight 10/28/2019 9: 50 AM CDT documented as of this encounter Last Filed Vital Signs Vital Sign Reading Time Taken Comments Blood Pressure 112/57 06/28/2020 4:20 PM DISTRICT SUPERVISOR Pulse 70 06/28/2020 4:20 PM DISTRICT SUPERVISOR Temperature 36.6 ??C (97.9 ??F) 06/28/2020 11:[address] Respiratory Rate 18 06/28/2020 11:25 AM DISTRICT SUPERVISOR Oxygen Saturation 96% 06/28/2020 4:20 PM DISTRICT SUPERVISOR Inhaled Oxygen Concentration - - Weight 95.4 kg (210 lb 6.4 oz) 06/28/2020 6:00 A M DISTRICT SUPERVISOR Height 176.5 cm (5' 9.49 ) 06/24/2020 5:10 AM CS T Body Mass Index 30.64 06/24/2020 5:10 AM DISTRICT SUPERVISOR documented in this encounter Discharge Diagnoses Diagnosis Nonrheumatic aortic (valve) stenosis - NONRHEUMATIC AORTIC (VALVE) STENOSIS Acute posthemorrhagic anemia - ACUTE POSTHEMORRHAGIC ANEMIA Acidosis - ACIDOSIS Atherosclerotic heart disease of [place] coronary artery without angina pectoris - ATHEROSCLEROTIC HEART DISEASE OF [place] CORONARY ARTERY WITHOUT ANGINA PECTORIS Other acute postprocedural pain - OTHER ACUTE POSTPROCEDURAL PAIN Elevated white blood cell count, unspecified - ELEVATED WHITE BLOOD CELL COUNT, UNSPECIFIED Hyperlipidemia, unspecified - HYPERLIPIDEMIA, UNSPECIFIED Essential (primary) hypertension - ESSENTIAL (PRIMARY) HYPERTENSION Unspecified essential hypertension Unspecified atrial fibrillation (HCC) - UNSPECIFIED ATRIAL FIBRILLATION Thrombocytopenia, unspecified (HCC) - THROMBOCYTOPENIA, UNSPECIFIED Thrombocytopenia, unspecified Diverticulosis of intestine, part unspecified, without perforation or abscess without bleeding - DIVERTICULOSIS OF INTESTINE, PART UNSPECIFIED, WITHOUT PERFORATION OR ABSCESS WITHOUT BLEEDING Unspecified glaucoma - UNSPECIFIED [facility] senior living (current) use of aspirin - 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) USE OF ASPIRIN Other [facility] (current) drug therapy - OTHER DETENTION (CURRENT) DRUG THERAPY Family history of malignant neoplasm, unspecified - FAMILY HISTORY OF MALIGNANT NEOPLASM, UNSPECIFIED Family history of ischemic heart disease and other diseases of the circulatory system - FAMILY HISTORY OF ISCHEMIC HEART DISEASE AND OTHER DISEASES OF THE CIRCULATORY SYSTEM Personal history of other malignant neoplasm of skin - PERSONAL HISTORY OF OTHER MALIGNANT NEOPLASM OF SKIN documented in this encounter Discharge Summaries * Shana Alvarado NP - 06/28/2020 2:22 PM CST Inpatient Discharge Summary BRIEF OVERVIEW Admitting Provider: Felton Chiu MD Discharge Provider: Felton Chiu MD Primary Care Physician at Discharge: Martin López MD [phone] Admission Date: 06/23/2020 Discharge Date: 06/28/2020 Admission Location: [facility] Primary Discharge Diagnosis: 06/23/2020: Aortic valve replacement (25mm Magna Ease bioprosthetic valve), coronary artery bypass grafting x 3 (radial sequenced to left anterior descending coronary artery and circumflex obtuse marginal branch, saphenous vein graft to the posterior descending coronary artery, open harvest of left radial artery, endoscopic harvesting of saphenous vein from right lower extremity Secondary Discharge Diagnosis: Active Problems: Aortic valve stenosis Hypertension, essential HLD (hyperlipidemia) Coronary artery disease without angina pectoris Acute postoperative anemia due to expected blood loss Atrial fibrillation (CMS/HCC) Resolved Problems: No resolved hospital problems. DETAILS OF HOSPITAL STAY Presenting Problem/History of [...] saphenous veinfrom right lower extremity by Dr. Chiu. The patient was taken to the intensive [...] lasting for approximately an Hour or less. Chest tu bes and pacing wires were discontinued without difficulty. The patient progressed as expected. Aggressive physical therapy and pulmonary toilet were initiated, diet was advanced as tolerated, and wounds remained clean, dry and intact. Because of the persistent brief episodes of AF, he was placed checo 30 day event monitor at discharge. The decision was made not to anticoagulate due to his recent diverticular bleed and history of H Pylori gastrointestinal bleeding. His hemoglobin was stable at discharge. The home health nurses will be monitoring his progress after he returns home. Active Issues Requiring Follow-up: 30 day event monitor results will be sent to Dr. Tera Torre Operative Procedures Performed: Procedure(s): CORONARY ARTERY BYPASS GRAFT WITH PUMPx3 HARVEST - RADIAL ARTERY ENDOSCOPIC VESSEL HARVEST REPLACEMENT AORTIC VALVE Discharge Details Physical Exam at Discharge: Discharge Condition: good Pulse: 72 Resp: 18 BP: 109/76 Temp: 36.6 ??C (97.9 ??F) Weight: 95.4 kg (210 lb 6.4 oz) Pertinent Exam Findings at Discharge: see progress note from 06/28 Discharge Disposition: Discharge to home or self care Code Status at Discharge: Full Code Discharge Instructions: Activity Instructions Post-Discharge Activity: No strenuous exercise No strenuous exercise for 4 weeks. Post-Discharge Activity: No water submersion for 6 weeks - including baths, hot tubs, whirlpools, swimming pools Post-Discharge Activity: Do not drive car Do not drive car until cleared by your surgeon. Post-Discharge Activity: May shower daily Diet Instructions Adult Discharge Diet Diet Type: Restrict salt intake to less than 2000 mg per day Return to previous diet Other Instructions Ambulatory referral to Home Health Service Line: Home Health Primary disciplines requested: [facility] Services: Wound/ Ostomy Care Strengthening Exercises Physician to follow patient's care (the person listed here will be responsible for signing ongoing orders): Referring Provider Requested Start of Care Date: Tomorrow Special instructions (labs, wound care, etc.): please see pt twice weekly for two weeks and then prn after that. chest tube sutures can come out in 5-7 days I attest that I or another qualified licensed provider saw the patient 90 days prior to or 30 days post admission and this face to face encounter meets the necessary Home Health requirements. The face to face encounter occurred on (date): 06/28/2020 The encounter with the patient was in whole, or in part, for the following medical condition, whichis the primary reason for home health care. (List medical condition): post op AVR/CABG on 06/24 I certify that, based on my findings, the following services are medically necessary skilled home health services: Wound/ Ostomy Care Strengthening Exercises Clinical findings that support the need for home care: Medical condition requiring skilled assessment/education Wound requiring care, assessment, and instruction Other Comment: Make sure patient is checking his heart rate often I certify that my clinical findings support patient's homebound status. Homebound criteria met because: Requires assistance of another to leave home safely Call surgeon for: Breathing Problems --Difficultly breathing at rest, with activity, or at night. --Increased cough. Call surgeon for: Change in drainage or if drainage starts again when none was present Call surgeon for: Check incision and call provider for the following: --Any redness, swelling, red streaks around incision/drain, or IV sites or change in appearance or abnormal bleeding. Call surgeon for: General Problems Chest pain, heaviness, or tightness Chills/fever over 100.4 degrees F Swelling in ankles, legs, or belly --Sweating, weakness, or fainting. --Persistent nausea or vomiting. --Persistent or increasing pain not resolved with medication. --Burning, pain, or urgency with urination. --Weight gain of more than 2 lbs over 2 days. Discharge instructions Sternotomy incision Activity Restrictions and Care Instructions: * Follow the instructions your physical therapist gave you. * Walk frequently and continue activities as tolerated. * Avoid strenuous exercise. No heavy lifting, pushing, or pulling more than 10 pounds for 4 weeks. * Do NOT drive for 4 weeks or while you are taking narcotic pain medications. * You may shower and let water run over your wound. * Do NOT take tub baths, swim, or sit in a hot tub for 4 weeks. * Keep incision clean and dry. * Do not apply cream or lotion to surgical site. * Take your blood pressure and heart rate each day and record on a log and bring to your next doctor's appointment. * Weigh yourself each day at the same time on the same scale. Call your doctor if you gain more than 2 pounds in 2 days. Call Your Doctor If: * You are having any problems after surgery. * You develop a fever higher than 101.5 degrees F. * You have chills, nausea, vomiting, or diarrhea. * You have shortness of breath or chest discomfort. * Your wound develops redness or drainage. * You gain more than 2 pounds in 2 days. * You have swelling in your lower extremities. * You are not passing gas or are constipated. * Your pain medicine is not working. Post-Discharge Activity: Lifting Restrictions (Specify) Maximum Weigth to Lift: 10 Pounds Post-Discharge Dressing Care: No dressing needed Dressing Removal: No dressing needed. Special Instructions Please arrive 30 minutes prior to your scheduled visit to have a Chest X-ray completed before seeing your surgeon. Special Instructions - Medication Safety (see comment) Keep a list of all medications you take including medications you can purchase without a prescription, like vitamins and herbal products. Carry this list with you at all times in case of emergency. Give the list to your primary care doctor. Update the list whenever a medication is discontinued, a new medication is added, or a medication dose has changed. [facility] [phone] Recent Lab Results: Recent Labs Lab Units 06/27/20202006/26/20234906/25/20 2301 SODIUM mmol/L 139 141 139 POTASSIUM PLASMA mmol/L 4.2 4.4 4.1 CHLORIDE mmol/L 104 107 106 CO2 mmol/L 29 29 28 BUN SERUM mg/dL 27* 27* 24 CREATININE mg/dL 1.29 1.20 1.28 GLUCOSE mg/dL 147 118 127 CALCIUM mg/dL 8.7 8.5 8.4* Recent Labs Lab Units 06/27/20202006/26/20 2350 06/25/20 2301 WBC K/cumm 9.2 10.9* 11.8* HEMOGLOBIN g/dL 7.6* 7.5* 7.6* HEMATOCRIT % 23.9* 23.7* 23.2* PLATELETS K/cumm 182 154 119* Recent Labs Lab Units 06/23/20 1610 INR 1.3* Prior to Admission Medications: Medications Prior to Admission Medication Sig Dispense Refill Last Dose ??? amLODIPine (NORVASC) 10 mg tablet Take 10 mg by mouth every morning 06/23/2020 at Unknown time ??? aspirin 81 mg enteric coated tablet Take 81 mg by mouth every morning 06/23/2020 at Unknown time ??? atorvastatin (LIPITOR) 10 mg tablet Take 10 mg by mouth every morning 06/22/2020 at Unknown time ??? metoprolol XL (TOPROL-XL) 25 mg extended release tablet Take 0.5 tablets (12.5 mg total) by mouth daily (Patient taking differently: Take 12.5 mg by mouth every morning ) 15 tablet 1 06/23/2020 atUnknown time ??? travoprost (TRAVATAN Z) 0.004 % drops Administer 1 drop into both eyes nightly 06/22/2020 at Unknown time ??? azelastine 0.15 % (205.5 mcg) spray,non-aerosol Administer 1 spray into each nostril daily as needed More than a month at Unknown time ??? benazepriL (LOTENSIN) 5 mg tablet Take 5 mg by mouth every morning 06/13/2020 ??? clobetasol (TEMOVATE) 0.05 % external solution Apply 1 application topically 2 (two) times a day as needed More than a month at Unknown time ??? montelukast (SINGULAIR) 10 mg tablet Take 10 mg by mouth nightly 06/20/2020 Discharge Medications: Nathan Wagner Home Medication Instructions TIERRA:[id number] Printed on:06/28/20 1422 Medication Information acetaminophen (TYLENOL) 325 mg tablet Take 2 tablets (650 mg total) by mouth every 4 (four) hours as needed for pain amiodarone (PACERONE) 400 mg tablet Take 1 tablet (400 mg total) by mouth daily aspirin 81 mg enteric coated tablet Take 81 mg by mouth every morning Atorvastatin 80mg tablet. Take one tablet every day azelastine 0.15 % (205.5 mcg) spray,non-aerosol Administer 1 spray into each nostril daily as needed clobetasol (TEMOVATE) 0.05 % external solution Apply 1 application topically 2 (two) times a day as needed docusate sodium (COLACE) 100 mg capsule Take 1 capsule (100 mg total) by mouth 2 (two) times a day as needed for constipation ferrous sulfate 325 mg (65 mg of elemental iron) tablet Take 1 tablet (325 mg total) by mouth 2 (two) times a day with meals furosemide (LASIX) 40 mg tablet Take 1 tablet (40 mg total) by mouth daily for 7 days latanoprost (XALATAN) 0.005 % ophthalmic solution Administer 1 drop into both eyes nightly metoprolol tartrate (LOPRESSOR) 25 mg immediate release tablet Take 0.5 tablets (12.5 mg total) by mouth 2 (two) times a day montelukast (SINGULAIR) 10 mg tablet Take 10 mg by mouth nightly oxyCODONE (ROXICODONE) 5 mg immediate release tablet Take 1 tablet (5 mg total) by mouth every 4 (four) hours as needed for pain pantoprazole DR (PROTONIX) 40 mg EC tablet Take 1 tablet (40 mg total) by mouth 2 (two) times a day polyethylene glycol (MIRALAX) 17 gram packet Take 1 packet (17 g total) by mouth daily potassium chloride ER (KLOR-CON) 20 mEq CR tablet Take 1 tablet (20 mEq total) by mouth daily for 7 days travoprost (TRAVATAN Z) 0.004 % drops Administer 1 drop into both eyes nightly Outpatient Follow-Up: All Sternotomy patients have been instructed to arrive 30 minutes prior to their appointment to have a chest x-ray completed. Future Appointments Date Time Provider Department Center 06/28/2020 2:25 PM [facility] S PROCESSING [facility] Main 11/15/2020 1:00 PM Leslie Aparicio MD GI CAM 8C [facility]STRO Contact Information for Follow-ups Martin López MD Specialty: Family Medicine Relationship: PCP - General [address] [place] [address] Next Steps: Schedule an appointment as soon as possible for a visit in 1 week(s) Felton Chiu MD Specialty: Cardiothoracic Surgery, General Surgery Relationship: Surgeon [address] [facility] [address] Next Steps: Follow up Comments: Dr. Felton Chiu will see you for follow up in 4 weeks in the [facility] in the [facility]), [address] [place] [address]- 8th floor [address], [place] [address]. Please call [phone] for questions or concerns or to change your appointment. Questions: To provider: FELTON CHIU Marc Alan, MD Specialty: Cardiology, Internal Medicine, Cardiovascular Disease, Interventional Cardiology Relationship: Consulting Physician [address] [facility] [address] [facility] [id number] Next Steps: Follow up Comments: Please follow up with your [employer] in 3-4 weeks. The office number is [phone] if you have questions or concerns. Questions: To provider: TERA TORRE Other Follow-up Next Steps: Follow up Instructions: Please check your pulse at least twice daily and record. If you feel your heartrate is fast, check your pulse. If you have any chest pain, heaviness, shortness of breath or the heart rate is not decreasing, call EMS. Questions: Instructions for follow-up (appointment date and time): Please check your pulse at least twice daily and record. If you feel your heartrate is fast, check your pulse. If you have any chest pain, heaviness, shortness of breath or the heart rate is not decreasing, call EMS. Shana Alvarado NP Cosigned by Felton Chiu MD at 06/28/2020 3:14 PM DISTRICT SUPERVISOR RICT SUPERVISOR RICT SUPERVISOR documented in this encounter Discharge Instructions * Discharge Instr - Other Orders* Shana Menezes RN - 06/27/2020 1:33 PM DISTRICT SUPERVISOR [facility] [phone] RICT SUPERVISOR documented in this encounter Medications at Time [...] 325 mg (65 mg of elemental iron) tabletIndication s:Iron Deficiency Anemia Take 1 tablet (325 mg total) by mouth 2 (two) times a day with meals 60 tablet 1 06/28/2020 1 oxyCODONE (ROXICODONE) 5 mg immediate release tabletIndication s:Pain Take 1 tablet (5 mg total) by mouth every 4 (four) hours as needed for pain 30 tablet 06/28/2020 1 potassium chloride ER (KLOR-CON) 20 mEq CR tablet Take 1 tablet (20 mEq total) by mouth daily for 7 days 7 tablet 06/29/2020 1 amiodarone (PACERONE) 400 mg tabletIndication s:arrythmia Take 1 tablet (400 mg total) by mouth daily 30 tablet 1 06/29/2020 1 azelastine 0.15 % (205.5 mcg) spray,non-aeroso lIndications:Sea [...] for 7 days 7 tablet 06/29/2020 1 latanoprost (XALATAN) 0.005 % ophthalmic solution Administer 1 drop into both eyes nightly 2.5 mL 06/28/2020 2 metoprolol tartrate (LOPRESSOR) 25 mg immediate release tablet Take 0.5 tablets (12.5 mg total) by mouth 2 (two) times a day 30 tablet 1 06/28/[address] (PROTONIX) 40 mg EC tabletIndication s:Treatment of Non-Bleeding Gastric Disorder Take 1 tablet (40 mg total) by mouth 2 (two) times a day 60 tablet 1 06/28/2020 2 polyethylene glycol (MIRALAX) 17 gram packetIndication s:constipation Take 1 packet (17 g total) by mouth daily 06/29/2020 2 documented as of this encounter Ordered Prescriptions Prescription Sig Dispense Quantity Refills Last Filled Start Date End Date atorvastatin (LIPITOR) 80 mg tablet Take 1 tablet (80 mg total) by mouth daily 30 tablet 1 06/28/2020 acetaminophen (TYLENOL) 325 mg tablet Take 2 tablets (650 mg total) by mouth every 4 (four) hours as needed for pain 30 tablet 06/28/2020 metoprolol tartrate (LOPRESSOR) 25 mg immediate release tablet Take 0.5 tablets (12.5 mg total) by mouth 2 (two) times a day 30 tablet 1 06/28/2020 2 polyethylene glycol (MIRALAX) 17 gram packetIndications :constipation Take 1 packet (17 g total) by mouth daily 06/29/2020 2 potassium chloride ER (KLOR-CON) 20 mEq CR tablet Take 1 tablet (20 mEq total) by mouth daily for 7 days 7 tablet 06/29/[address] (PROTONIX) 40 mg EC tabletIndications :Treatment of Non-Bleeding Gastric Disorder Take 1 tablet (40 mg total) by mouth 2 (two) times a day 60 tablet 1 06/28/2020 2 latanoprost (XALATAN) 0.005 % ophthalmic solution Administer 1 drop into both eyes nightly 2.5 mL 06/28/2020 2 furosemide (LASIX) 40 mg tablet Take 1 tablet (40 mg total) by mouth daily for 7 days 7 tablet 06/29/2020 1 ferrous sulfate 325 mg (65 mg of elemental iron) tabletIndications :Iron Deficiency Anemia Take 1 tablet (325 mg total) by mouth 2 (two) times a day with meals 60 tablet 1 06/28/2020 1 docusate sodium (COLACE) 100 mg capsuleIndication s:constipation Take 1 capsule (100 mg total) by mouth 2 (two) times a day as needed for constipation 60 capsule 1 06/28/2020 2 amiodarone (PACERONE) 400 mg tabletIndications :arrythmia Take 1 tablet (400 mg total) by mouth daily 30 tablet 1 06/29/2020 1 oxyCODONE (ROXICODONE) 5 mg immediate release tabletIndications :Pain Take 1 tablet (5 mg total) by mouth every 4 (four) hours as needed for pain 30 tablet 06/28/2020 1 oxyCODONE (ROXICODONE) 5 mg immediate release tabletIndications :Pain Take 1 tablet (5 mg total) by mouth every 4 (four) hours as needed for pain 30 tablet 06/28/2020 1 documented in this encounter Discharge Disposition Disposition Code Departure Means Destination Discharge to home, home health skilled care documented in this encounter Progress Notes * Shana Menezes RN - 06/28/2020 10:08 AM CST 06/24/20 1344 Discharge Summary Chart reviewed For Medical Necessity Does patient have a planned readmission to hospital planned? No Discharge Disposition Home with Home Health (PT/OT/RN) Equipment/Provider Needs Home Provider Services Needs Identified Home Care Agency Information Home Care Agency Name [facility] Home Care Agency Contact Spoken to Maribel accepted for [facility] 07/01 Home Care Agency Order Faxed to [phone] Discharge Additional Assistance Does the patient need discharge transport arranged? No ( to provide ride) Patient to d/c to home today. Notified Maribel at [facility]. Will fax DC Summary and order. Patient has spouse for home support and transportation. Nurse to instruct on d/c orders. RICT SUPERVISOR * Shana Alvarado NP - 06/28/2020 9:35 AM CST Cardiac Surgery Daily Progress 06/24 (06/23) AVR (25 mm Magna Ease), 3v CABG (left [id number], SVG-PDA) SUBJECTIVE Chief complaint: none, no BM Interval History: Brief AF with rate 120 otherwise asymptomatic. Avoiding coumadin due to recent diverticular bleed and hx of H Pylori with bleed. Will arrange 30 day event monitor. Central line out. Discharge later today OBJECTIVE Current Facility-Administered Medications: ??? acetaminophen (TYLENOL) tablet 650 mg, 650 mg, oral, Q4H PRN, Shana Alvarado, MARLENE, 650 mg at 06/27/202017 ??? amiodarone (PACERONE) tablet 400 mg, 400 mg, oral, Daily, Shana Alvarado NP, 400 mg at 06/28/20 0629 ??? aspirin enteric coated tablet 81 mg, 81 mg, oral, Daily, Fabi Handy NP, 81 mg at 06/27/20 0815 ??? atorvastatin (LIPITOR) tablet 80 mg, 80 mg, oral, Daily, Fabi Handy NP, 80 mg at 06/27/202016 ??? bisacodyL (DULCOLAX) suppository 10 mg, 10 mg, rectal, Daily PRN, Shana Alvarado NP, 10 mg at 06/27/20 182 ??? docusate sodium (COLACE) capsule 100 mg, 100 mg, oral, BID, 100 mg at 06/27/20 1929 OR [DISCONTINUED] docusate (COLACE) 10 mg/mL oral liquid 100 mg, 100 mg, feeding tube, BID, Fabi Handy NP ??? ferrous sulfate tablet 325 mg, 65 mg of elemental iron, oral, BID with meals (bkfst, dinner), Daniele Madrigal NP, 325 mg at 06/27/20 1710 ??? furosemide (LASIX) tablet 40 mg, 40 mg, oral, Daily, Shana Alvarado PRINT DECORATOR ??? latanoprost (XALATAN) 0.005 % ophthalmic solution 1 drop, 1 drop, each eye, Nightly, Fabi Handy NP, 1 drop at 06/27/202006 ??? metoprolol tartrate (LOPRESSOR) immediate release tablet 12.5 mg, 12.5 mg, oral, BID, Shana Alvarado NP, Stopped at 06/28/20 0900 ??? mineral oil (FLEET MINERAL OIL) enema 1 enema, 1 enema, rectal, Once, Shana Alvarado NP ??? montelukast (SINGULAIR) tablet 10 mg, 10 mg, oral, Nightly, Shana Alvarado NP, 10 mg at ??? ondansetron (ZOFRAN) injection 4 mg, 4 mg, intravenous, Q6H PRN, Fabi Handy NP, 4 mg at 06/25/20 0720 ??? oxyCODONE (ROXICODONE) tablet 5 mg, 5 mg, oral, Q4H PRN, Medina Cavazos MD, 5 mg at 06/27/20 1222 ??? pantoprazole DR (PROTONIX) extended release tablet 40 mg, 40 mg, oral, BID, Emmie Daniels NP, 40 mg at 06/27/202016 ??? polyethylene glycol (MIRALAX) packet 17 g, 17 g, oral, Daily, Octavia Heath NP, 17 g at 06/27/201928 ??? potassium chloride ER (KLOR-CON) extended release tablet 20 mEq, 20 mEq, oral, Daily, AmyH. Alvarado NP ??? ramelteon (ROZEREM) tablet 8 mg, 8 mg, oral, Nightly PRN, Emmie Daniels NP, 8 mg at 06/27/202017 ??? senna (SENOKOT) tablet 2 tablet, 2 tablet, oral, BID, 2 tablet at 06/27/201928 OR [DISCONTINUED] senna 1.76 mg/mL syrup 8.8 mg, 8.8 mg, feeding tube, BID, Fabi Handy NP Vitals: 24hr Min/Max: Temp Min: 36.4 ??C (97.5 ??F) Max: 36.9 ??C (98.4 ??F) Pulse Min: 68 Max: 99 BP Min: 79/62 Max: 127/80 Resp Min: 16 Max: 18 SpO2 Min: 95 % Max: 100 % Most Recent : Vitals: 06/28/20 0847 BP: 116/57 Pulse: 78 Resp: 18 Temp: SpO2: 100% I/O last 2 completed shifts: In: 865.8 [P.O.:780; I.V.:85.8] Out: 1350 [Urine:1350] No intake/output data recorded. Physical Exam: Physical Exam Vitals reviewed. Constitutional: Appearance: Normal appearance. He is normal weight. HENT: Head: Normocephalic. Mouth/Throat: Mouth: Mucous membranes are moist. Pharynx: Oropharynx is clear. Eyes: Conjunctiva/sclera: Conjunctivae normal. Cardiovascular: Rate and Rhythm: Normal rate and regular rhythm. Heart sounds: Normal heart sounds. Comments: Wires out RRR Pulmonary: Effort: Pulmonary effort is normal. Breath sounds: Normal breath sounds. Comments: On RA Abdominal: General: Abdomen is flat. Bowel sounds are normal. Palpations: Abdomen is soft. Comments: No BM, + BS Musculoskeletal: General: Normal range of motion. Cervical back: Normal range of motion and neck supple. Right lower leg: No edema. Left lower leg: No edema. Comments: Trace edema Skin: General: Skin is warm and dry. Comments: Sternum clean and dry Neurological: General: No focal deficit present. Mental Status: He is alert and oriented to person, place, and time. Psychiatric: Mood and Affect: Mood normal. Behavior: Behavior normal. Lab/Radiology/Diagnostic Review: Laboratory review: Lab results in the last 24 hours: Recent Results (from the past 24 hour(s)) CBC without differential Collection Time: 06/27/20 8:21 PM Result Value Ref Range WBC 9.2 3.8 - 9.9 K/cumm Hgb 7.6 (L) 13.0 - 17.5 g/dL Hct 23.9 (L) 38.9 - 50.3 % Plt 182 150 - 400 K/cumm MPV 13.8 (H) 9.1 - 12.3 fL RBC 2.63 (L) 4.30 - 5.80 M/cumm MCV 90.9 81.3 - 96.4 fL MCH 28.9 27.1 - 33.3 pg MCHC 31.8 (L) 32.3 - 35.7 g/dL RDW CV 14.6 11.1 - 14.9 % RDW SD 47.6 35.7 - 48.1 fL NRBC abs 0.10 (H) 0.00 - 0.01 K/cumm Basic metabolic panel Collection Time: 06/27/20 8:21 PM Result Value Ref Range Sodium 139 135 - 145 mmol/L Potassium, pl 4.2 3.3 - 4.9 mmol/L Chloride 104 97 - 110 mmol/L CO2 29 22 - 32 mmol/L Anion gap 6 2 - 15 mmol/L BUN 27 (H) 8 - 25 mg/dL Creatinine 1.29 0.80 - 1.30 mg/dL Glucose 147 70 - 199 mg/dL Calcium 8.7 8.5 - 10.3 mg/dL ASSESSMENT/PLAN Atrial fibrillation (CMS/HCC) Assessment & Plan Developed A fib with RVR 06/25 Rx: [...] stable Monitor on telemetry until monitor placed Acute postoperative anemia due to expected blood loss Assessment & Plan Expected finding s/p CABG, AVR Monitor CBC daily Transfused 1 unit PRBCs on 06/25 for H&H 6.09/15 Today 7.6, will follow with daily CBCs Hx of colonic and GI bleeds (H Pylori) Added FeSo4 Guaiac all specimens-continue bid PPI Coronary artery disease without angina pectoris Assessment & Plan S/p CABG x 3 as L radial-OM, SVG-PDA also 06/23 Continue ASA, Statin, beta doni. Increase BB as tolerated Left RA hand with improved Mobility today, incision OK. Using ball and ROM exercises HLD (hyperlipidemia) Assessment & Plan Continue Atorvastatin Low fat diet Hypertension, essential Assessment & Plan VS q 4 hrs Continue Metoprolol Increased dose to 12.5 BID yesterday Aortic valve stenosis Assessment & Plan S/p AVR (25 mm Magna ease) 06/23 Routine post op care Ct and lennon out Hep gtt off, holding coumadin due to high risk GI bleed and recent diverticular bleed Wires out Shana Alvarado NP 06/28/2020 Cosigned by Felton Chiu MD at 06/28/2020 11:09 AM DISTRICT SUPERVISOR RICT SUPERVISOR RICT SUPERVISOR * Lisa Lynn PTA - 06/28/2020 8:04 AM CST Physical Therapy Progress Note NOTE: This is a summary note of the butler components of the treatment session. For full details, review chart for all flowsheets documented on by this physical therapy clinician on this date. Vital signs documented in vital signs flowsheet. Care plan progress documented in Care Plan Activity. For questions, please review the treatment team and contact the PT or SCREW DRIVER OPERATOR currently assigned to this patient. If a physical therapy clinician is not assigned to this patient, please call [phone]. 06/28/20 0804 PT Last Visit Session Type Treatment PT Received On 06/28/20 Safe Environment Arm Band Checked;Call Light within Reach;Notified RN;Patient found sitting in Chair;Overbed Table within Reach (Patient left sitting in chair) Subjective Agreeable to Therapy Family/Caregiver Present No Precautions Precautions Cardiac sternal;Fall risk Precaution Handout Issued Yes Precaution Comments Verbally reviewed sternal precautions with patient, patient following during mobility Activity Tolerance Activity Tolerance Comments Qing did not rate Pain Assessment Pain Assessment No/denies pain Cognition Orientation Oriented X4 (person, place, time, situation) Balance Balance Yes Static Sitting Balance Static Sitting-Balance Support Feet supported;No upper extremity supported Static Sitting-Sitting Surface Chair Static Sitting-Level of Assistance Independent Static Standing Balance Static Standing-Balance Support No upper extremity supported Static Standing-Standing Surface Floor Static Standing-Level of Assistance Independent Equipment Use Equipment Use Comments gait belt not used 2/2 incision Bed Mobility Bed Mobility No Transfers Transfer Yes Transfer 1 Transfer From 1 Sit Transfer Type 1 To and from Transfer to 1 Stand Technique 1 Sit to stand;Stand to sit Transfer Device 1 No device Transfer Level of Assistance 1 Modified Independent Trials/Comments 1 to enssure safety and precautions Transfers 2 Transfer From 2 Chair with arms Transfer Type 2 To and from Transfer to 2 Toilet Technique 2 (stand and step) Transfer Device 2 No device Transfer Level of Assistance 2 Modified Independent Ambulation Functional Ambulation Category 3 Ambulation Yes Ambulation 1 Distance (ft) 1 340 Surface 1 Level tile Device 1 No device Assistance 1 Distant supervision Gait: Requires verbal cues to 1 Pace activity;Utilize pursed lip breathing Quality of Gait 1 steady jose, no notable deficits Stairs Stairs Yes Stairs Number of Stairs 1 18 Rails 1 Bilateral Device 1 No device Assistance 1 Contact Guard Assist Stairs: Requires assist with 1 Balance;Force production Other Comments Other PT Comments Issued Cardiac HEP insert including walking program, heart healthy tips and Qing.Verbally reviewed Sternal precautions and all questions answered. Basic Mobility - 6 Click How much difficulty does the patient have: Turning over in bed 4 How much difficulty does the patient currently have: Sitting down and standing up from a chair witharms? 4 How much difficulty does the patient have: Moving from lying on back to sitting on the side of the bed? 3 How much difficulty does the patient have: Moving to and from a bed to a chair including wheelchair? 4 How much help does the patient currently need: Walk in hospital room? 4 How much help from another person does the patient currently need: Climbing 3-5 steps with a railing? 3 Total 6 Click Score (range 6-24) 22 Score Interpretation 47.40 Plan Plan Continue with current plan (Per PT) Recommendation/Plan PT Recommendation/Plan Home with family;Home Health PT PT Frequency Daily PT - Next Appointment 06/29/20 PT - OK to Discharge Yes Multi-Disciplinary Problems (from Physical Therapy) Active Problems Problem: Mobility Start Date: 06/24/20 Goal Start Date End Date STG - Patient will ambulate 06/24/20 -- Goal Details: 200' on indoor, level surfaces, without AD, I. Goal Start Date End Date STG - Patient will ascend and descend a flight of stairs 06/24/20 -- Goal Details: With rail, per home set-up, mod I. Problem: Transfers Start Date: 06/24/20 Goal Start Date End Date STG - Patient to transfer to and from sit to supine 06/24/20 -- Goal Details: Mod I from flat bed Goal Start Date End Date STG - Patient will transfer sit to and from stand 06/24/20 -- Goal Details: I from all surfaces Problem: PT Misc Start Date: 06/24/20 Goal Start Date End Date PT LTG - [facility] [place] 06/24/20 -- Goal Details: Pt will perform all functional mobility I. Goal Start Date End Date PT STG - [facility] [place] [facility] 06/24/20 -- Goal Details: Pt will verbalize and demonstrate understanding of sternal precautions with all functional mobility. RICT SUPERVISOR * Lisa Lynn PTA - 06/27/2020 4:02 PM CST Physical Therapy Progress Note NOTE: This is a summary note of the butler components of the treatment session. For full details, review chart for all flowsheets documented on by this physical therapy clinician on this date. Vital signs documented in vital signs flowsheet. Care plan progress documented in Care Plan Activity. For questions, please review the treatment team and contact the PT or SCREW DRIVER OPERATOR currently assigned to this patient. If a physical therapy clinician is not assigned to this patient, please call [phone]. 06/27/20 1602 PT Last Visit Session Type Treatment PT Received On 06/27/20 Safe Environment Arm Band Checked;Call Light within Reach;Notified RN;Patient found in Supine;Overbed Table within Reach (Patient left in supine) Subjective Agreeable to Therapy Family/Caregiver Present No Precautions Precautions Cardiac sternal;Fall risk Precaution Comments Verbally reviewed sternal precautions with patient, pt following during mobility Activity Tolerance Activity Tolerance Comments Qing Cognition Orientation Oriented X4 (person, place, time, situation) Balance Balance Yes Static Sitting Balance Static Sitting-Balance Support No upper extremity supported;Feet supported Static Sitting-Sitting Surface Bed;Chair Static Sitting-Level of Assistance Independent Static Standing Balance Static Standing-Balance Support No upper extremity supported Static Standing-Standing Surface Floor Static Standing-Level of Assistance Distant supervision Equipment Use Equipment Use Comments gait belt not used 2/2 incision Bed Mobility Bed Mobility Yes Bed Mobility 1 Bed Mobility From 1 Supine Bed Mobility Type 1 To and from Bed Mobility to 1 Edge of bed Level of Assistance 1 Contact Guard Assist Bed Mobility Comments 1 HOB 20 degrees elevated Transfers Transfer Yes Transfer 1 Transfer From 1 Sit Transfer Type 1 To and from Transfer to 1 Stand Technique 1 Sit to stand;Stand to sit Transfer Device 1 No device Transfer Level of Assistance 1 Standby Assist Ambulation Functional Ambulation Category 3 Ambulation Yes Ambulation 1 Distance (ft) 1 340 Surface 1 Level tile Device 1 No device Assistance 1 Standby Assist Gait: Requires verbal cues to 1 Pace activity;Utilize pursed lip breathing Quality of Gait 1 increased jose Ambulation Comments 1 HR monitored throughout ambulation and remained WNL. Stairs Stairs Yes Stair Comments 1 standing rest needed 2/2 fatigue Stairs Number of Stairs 1 6+5 Rails 1 Right Device 1 No device Assistance 1 Contact Guard Assist Stairs: Requires assist with 1 Balance;Force production;Appropriate sequencing Other Comments Other PT Comments Verbally reviewed Cardiac HEP, pt states he has it on his phone and declined written copy. All questions answered. Basic Mobility - 6 Click How much difficulty does the patient have: Turning over in bed 4 How much difficulty does the patient currently have: Sitting down and standing up from a chair witharms? 4 How much difficulty does the patient have: Moving from lying on back to sitting on the side of the bed? 3 How much difficulty does the patient have: Moving to and from a bed to a chair including wheelchair? 4 How much help does the patient currently need: Walk in hospital room? 3 How much help from another person does the patient currently need: Climbing 3-5 steps with a railing? 3 Total 6 Click Score (range 6-24) 21 Score Interpretation 45.55 Plan Plan Continue with current plan (Per PT) Recommendation/Plan PT Recommendation/Plan Home with family;Home Health PT PT Frequency Daily PT - Next Appointment 06/28/20 Multi-Disciplinary Problems (from Physical Therapy) Active Problems Problem: Mobility Start Date: 06/24/20 Goal Start Date End Date STG - Patient will ambulate 06/24/20 -- Goal Details: 200' on indoor, level surfaces, without AD, I. Goal Start Date End Date STG - Patient will ascend and descend a flight of stairs 06/24/20 -- Goal Details: With rail, per home set-up, mod I. Problem: Transfers Start Date: 06/24/20 Goal Start Date End Date STG - Patient to transfer to and from sit to supine 06/24/20 -- Goal Details: Mod I from flat bed Goal Start Date End Date STG - Patient will transfer sit to and from stand 06/24/20 -- Goal Details: I from all surfaces Problem: PT Misc Start Date: 06/24/20 Goal Start Date End Date PT LTG - Misc 1 06/24/20 -- Goal Details: Pt will perform all functional mobility I. Goal Start Date End Date PT STG - [facility] [place] [facility] 06/24/20 -- Goal Details: Pt will verbalize and demonstrate understanding of sternal precautions with all functional mobility. RICT SUPERVISOR * Shana Alvarado NP - 06/27/2020 9:15 AM CST Cardiac Surgery Daily Progress (06/23) AVR (25 mm Magna Ease), 3v CABG (left [id number], SVG-PDA) SUBJECTIVE Chief complaint: none Interval History: MCTs removed, in and out of AF - on amiod day #3 today. Added Hep gtt. OBJECTIVE Current Facility-Administered Medications: ??? acetaminophen (TYLENOL) tablet 650 mg, 650 mg, oral, Q4H PRN, Shana Alvarado, PRINT DECORATOR, 650 mg at 06/27/2019 ??? amiodarone (PACERONE) tablet 400 mg, 400 mg, oral, TID, Emmie Daniels PRINT DECORATOR, 400 mg at 06/27/2016 ??? aspirin enteric coated tablet 81 mg, 81 mg, oral, Daily, Fabi Handy NP, 81 mg at 06/27/2015 ??? atorvastatin (LIPITOR) tablet 80 mg, 80 mg, oral, Daily, Fabi Handy NP, 80 mg at 06/26/202050 ??? docusate sodium (COLACE) capsule 100 mg, 100 mg, oral, BID, 100 mg at 06/27/20 0816 OR [DISCONTINUED] docusate (COLACE) 10 mg/mL oral liquid 100 mg, 100 mg, feeding tube, BID, Fabi Handy NP ??? ferrous sulfate tablet 325 mg, 65 mg of elemental iron, oral, BID with meals (bkfst, dinner), Daniele Madrigal NP, 325 mg at 06/27/20 0817 ??? furosemide (LASIX) tablet 40 mg, 40 mg, oral, BID DIURETIC, Shana Alvarado PRINT DECORATOR, 40 mg at ??? heparin in 0.45% sodium chloride 25,000 units/250 mL (100 units/mL) infusion (premix), 1-33 Units/kg/hr, intravenous, Titrated, Octavia Heath NP, Last Rate: 11.85 mL/hr at 06/27/20 0900, 12.2 Units/kg/hr at 06/27/20 0900 ??? latanoprost (XALATAN) 0.005 % ophthalmic solution 1 drop, 1 drop, each eye, Nightly, Fabi Handy PRINT DECORATOR, 1 drop at 06/26/202052 ??? METOPROLOL TARTRATE CAPSULE 6.25 MG capsule 6.25 mg, 6.25 mg, oral, BID, Emmie Daniels PRINT DECORATOR, 6.25 mg at 06/27/20814 ??? montelukast (SINGULAIR) tablet 10 mg, 10 mg, oral, Nightly, Shana Alvarado PRINT DECORATOR, 10 mg at ??? ondansetron (ZOFRAN) injection 4 mg, 4 mg, intravenous, Q6H PRN, Fabi Handy NP, 4 mg at 06/25/20719 ??? oxyCODONE (ROXICODONE) tablet 5 mg, 5 mg, oral, Q4H PRN, Medina Cavazos MD, 5 mg at 06/27/20827 ??? pantoprazole DR (PROTONIX) extended release tablet 40 mg, 40 mg, oral, BID, Emmie Daniels PRINT DECORATOR, 40 mg at 06/27/2016 ??? potassium chloride ER (KLOR-CON) extended release tablet 20 mEq, 20 mEq, oral, BID, Shana Alvarado NP, 20 mEq at 06/27/20816 ??? ramelteon (ROZEREM) tablet 8 mg, 8 mg, oral, Nightly PRN, Emmie Daniels PRINT DECORATOR, 8 mg at 06/26/202050 ??? senna (SENOKOT) tablet 1 tablet, 1 tablet, oral, BID, 1 tablet at 06/27/20 0816 OR [DISCONTINUED] senna 1.76 mg/mL syrup 8.8 mg, 8.8 mg, feeding tube, BID, Fabi Handy, MARLENE Vitals: 24hr Min/Max: Temp Min: 36.4 ??C (97.5 ??F) Max: 37 ??C (98.6 ??F) Pulse Min: 72 Max: 135 BP Min: 95/60 Max: 123/77 Resp Min: 18 Max: 20 SpO2 Min: 93 % Max: 99 % Most Recent : Vitals: 06/27/20 0913 BP: Pulse: 74 Resp: Temp: SpO2: I/O last 2 completed shifts: In: 500 [P.O.:500] Out: 2255 [Urine:2125; Chest Tube:130] I/O this shift: In: 285.8 [P.O.:200; I.V.:85.8] Out: 200 [Urine:200] Physical Exam: Physical Exam Vitals reviewed. Constitutional: Appearance: Normal appearance. He is normal weight. HENT: Head: Normocephalic. Mouth/Throat: Mouth: Mucous membranes are moist. Pharynx: Oropharynx is clear. Eyes: Conjunctiva/sclera: Conjunctivae normal. Cardiovascular: Rate and Rhythm: Normal rate and regular rhythm. Heart sounds: Normal heart sounds. Comments: wires capped Pulmonary: Effort: Pulmonary effort is normal. Breath sounds: Normal breath sounds. Comments: On RA Abdominal: General: Abdomen is flat. Bowel sounds are normal. Palpations: Abdomen is soft. Comments: No BM, + BS Musculoskeletal: General: Normal range of motion. Cervical back: Normal range of motion and neck supple. Right lower leg: No edema. Left lower leg: No edema. Comments: Trace edema Skin: General: Skin is warm and dry. Comments: Sternum clean and dry Neurological: General: No focal deficit present. Mental Status: He is alert and oriented to person, place, and time. Psychiatric: Mood and Affect: Mood normal. Behavior: Behavior normal. Lab/Radiology/Diagnostic Review: Laboratory review: Lab results in the last 24 hours: Recent Results (from the past 24 hour(s)) CBC without differential Collection Time: 06/26/20 11:50 PM Result Value Ref Range WBC 10.9 (H) 3.8 - 9.9 K/cumm Hgb 7.5 (L) 13.0 - 17.5 g/dL Hct 23.7 (L) 38.9 - 50.3 % Plt 154 150 - 400 K/cumm MPV 14.0 (H) 9.1 - 12.3 fL RBC 2.63 (L) 4.30 - 5.80 M/cumm MCV 90.1 81.3 - 96.4 fL MCH 28.5 27.1 - 33.3 pg MCHC 31.6 (L) 32.3 - 35.7 g/dL RDW CV 14.9 11.1 - 14.9 % RDW SD 49.2 (H) 35.7 - 48.1 fL NRBC abs 0.09 (H) 0.00 - 0.01 K/cumm Basic metabolic panel Collection Time: 06/26/20 11:50 PM Result Value Ref Range Sodium 141 135 - 145 mmol/L Potassium, pl 4.4 3.3 - 4.9 mmol/L Chloride 107 97 - 110 mmol/L CO2 29 22 - 32 mmol/L Anion gap 5 2 - 15 mmol/L BUN 27 (H) 8 - 25 mg/dL Creatinine 1.20 0.80 - 1.30 mg/dL Glucose 118 70 - 199 mg/dL Calcium 8.5 8.5 - 10.3 mg/dL Magnesium Collection Time: 06/26/20 11:50 PM Result Value Ref Range Magnesium 2.3 1.4 - 2.5 mg/dL aPTT Collection Time: 06/27/20 12:41 AM Result Value Ref Range aPTT 27 27 - 37 sec aPTT Collection Time: 06/27/20 5:20 AM Result Value Ref Range aPTT 50 (H) 27 - 37 sec ASSESSMENT/PLAN Atrial fibrillation (CMS/HCC) Assessment & Plan Developed A fib with RVR 06/25 Rx: Amiodarone IV bolus and po load initiated, QTc daily (today 505) In and out of AF yesterday, today NSR with APCs Added Hep gtt yesterday due to intermittent AF, rate controlled Will pause Hep gtt, pull wires and start coumadin Careful use of AC due to above Monitor on telemetry Acute postoperative anemia due to expected blood loss Assessment & Plan Expected finding s/p CABG, AVR Monitor CBC daily Transfused 1 unit PRBCs on 06/25 for H&H 6.5/ Today 7.5, will follow with daily CBCs Hx of colon and GI bleeds Added FeSo4 Guaiac all specimens-continue bid PPI Hx of intestinal bleed in the past with H. Pylori Coronary artery disease without angina pectoris Assessment & Plan S/p CABG x 3 as L radial-OM, SVG-PDA also 06/23 Continue ASA, Statin, beta doni. Increase BB as tolerated Left RA hand with improved Mobility today, incision OK. Using ball and ROM exercises HLD (hyperlipidemia) Assessment & Plan Continue Atorvastatin Low fat diet Hypertension, essential Assessment & Plan VS q 4 hrs Continue Metoprolol Aortic valve stenosis Assessment & Plan S/p AVR (25 mm Magna ease) 06/23 Routine post op care Ct and lennon out Will pause Hep gtt and remove epicardial wires today Shana Alvarado NP 06/27/2020 Cosigned by Felton Chiu MD at 06/27/2020 11:17 AM DISTRICT SUPERVISOR RICT SUPERVISOR RICT SUPERVISOR * Gris Alonzo - 06/27/2020 8:33 AM CST Occupational Therapy Occupational Therapy Progress Note NOTE: This is a summary note of the butler components of the treatment session. For full details, review chart for all flowsheets documented on by this occupational therapy clinician on this date. Vitalsigns documented in vital signs flowsheet. Care plan progress documented in Care Plan Activity. For questions, please review the treatment team and contact the occupational therapist currently assigned to this patient. If an occupational therapist is not assigned to this patient, please call [phone]. 06/27/20 7472 General Session Type Treatment OT Received On 06/27/20 Safe Environment Arm Band Checked;Call Light within Reach;Patient found sitting in Chair (chair, call light end) Subjective Agreeable to Therapy Family/Caregiver Present No Precautions Precautions Cardiac sternal;Fall risk Pain Assessment Pain Assessment 0-10 Pain Score 3 Pain Location Incision Balance Balance Yes Dynamic Sitting Balance Dynamic Sitting-Balance Support Feet supported Dynamic Sitting-Balance Forward lean;Reaching across midline Dynamic Sitting-Sitting Surface Chair Dynamic Sitting-Level of Assistance Close supervision Dynamic Sitting-Comments Ensure safety and balance Dynamic Standing Balance Dynamic Standing-Balance Support No upper extremity supported Dynamic Standing-Balance Forward lean;Reaching across midline Dynamic Standing-Standing Surface Floor Dynamic Standing-Level of Assistance Close supervision Dynamic Standing-Comments Ensure safety and balance ADL ADLS (WDL) X Grooming Grooming: Where assessed Sitting at sink Grooming: Level of assistance Maximum Assist (Max (balance); min (task)) Grooming: Assistance with Manipulation of containers;Safety;Other (Comment) (Balance) Toileting Toileting: Where assessed Toilet Toileting: Level of assistance Standby Assist Toileting: Assistance with Other (Comment) (Safety and balance) Bed Mobility Bed Mobility No Transfers Transfer Yes (Gait belt not used 2/2 sternal precautions) Transfer 1 Transfer From 1 Sit Transfer Type 1 To and from Transfer to 1 Stand Technique 1 Sit to stand;Stand to sit Transfer Device 1 No device Transfer Level of Assistance 1 Standby Assist Trials/Comments 1 Ensure safety and balance Transfers 2 Trials/Comments 2 Functional mobility completed with SBA to ensure safety and balance using w/w. Toilet Transfers Toilet Transfer From Other (Comment) (Chair) Toilet Transfer Type To and from Toilet Transfer to Standard toilet Toilet Transfer Technique Ambulating Toilet Transfer: Equipment Wheeled walker Toilet Transfers Supervision Toilet Transfers Comments Ensure safety and balance Cognition Arousal/Alertness Alert;Appropriate responses to stimuli Attention Span Appears intact Current communication Appears Intact Orientation Oriented X4 (person, place, time, situation) Following Commands Follows all commands and directions without difficulty Safety Judgment Good awareness of safety precautions Awareness of Errors Good awareness of errors made Insight Fully aware of deficits Compliance/Behavior Easy to engage Activity Tolerance Activity Tolerance Comments QING: Med (grooming at sink) Other Comments Comments Pt. motivated to participate in therapy. Pt. reported still having difficulties extending/flexing last 3 digits of L hand. Pt reported completing AAROM to prevent contractures. Pt. HR 128 upon arrival and was cleared for OOB activity from TREV Stewart. After completing toilet transfer, HR was 158 and pt. reported some fatigue. Pt completed the remaining grooming tasks seated at sink. Assessment Problem List Decreased endurance;Decreased balance;Decreased fine motor control;Decreased functional mobility;Decreased ADL independence;Decreased IADL independence;Decreased UE function Plan Plan Continue with current plan;If this is the last note, consider this the discharge summary Recommendation/Plan OT Recommendation Home with family;Home Health PT;Home with 24 hour supervision OT Frequency 3-5x/wk Treatment/Interventions ADL/IADL retraining;Balance Training;Endurance training;Functional activity;Functional mobility training;Functional transfer training;Strengthening;Therapeutic activity;Therapeutic exercise;Transfer training Progress Progressing toward goals OT - Next Appointment 06/29/20 Multi-Disciplinary Problems (from Occupational Therapy) Active Problems Problem: Dressings Lower Extremities Start Date: 06/24/20 Goal Start Date End Date STG - Patient to complete lower body dressing 06/24/20 -- Goal Details: With sup Problem: Grooming Start Date: 06/24/20 Goal Start Date End Date STG - Patient will complete grooming 06/24/20 -- Goal Details: In standing with sup Problem: Toileting Start Date: 06/24/20 Goal Start Date End Date STG - Patient will complete toileting tasks with 06/24/20 -- Goal Details: sup Problem: Transfers Start Date: 06/24/20 Goal Start Date End Date STG - Patient will perform toilet transfer 06/24/20 -- Goal Details: To toilet in bathroom with sup Problem: OT Misc Start Date: 06/24/20 Goal Start Date End Date OT LTG - Misc 1 06/24/20 -- Goal Details: Pt will complete ADLs with modified independence/independence Cosigned by Troy Holley OT at 06/27/2020 4:59 PM DISTRICT SUPERVISOR RICT SUPERVISOR RICT SUPERVISOR * Yun Man, SCREW DRIVER OPERATOR - 06/26/2020 12:14 PM CST Physical Therapy Physical Therapy Progress Note NOTE: This is a summary note of the butler components of the treatment session. For full details, review chart for all flowsheets documented on by this physical therapy clinician on this date. Vital signs documented in vital signs flowsheet. Care plan progress documented in Care Plan Activity. For questions, please review the treatment team and contact the PT or SCREW DRIVER OPERATOR currently assigned to this patient. If a physical therapy clinician is not assigned to this patient, please call [phone]. Multi-Disciplinary Problems (from Physical Therapy) Active Problems Problem: Mobility Start Date: 06/24/20 Goal Start Date End Date STG - Patient will ambulate 06/24/20 -- Goal Details: 200' on indoor, level surfaces, without AD, I. Goal Start Date End Date STG - Patient will ascend and descend a flight of stairs 06/24/20 -- Goal Details: With rail, per home set-up, mod I. Problem: Transfers Start Date: 06/24/20 Goal Start Date End Date STG - Patient to transfer to and from sit to supine 06/24/20 -- Goal Details: Mod I from flat bed Goal Start Date End Date STG - Patient will transfer sit to and from stand 06/24/20 -- Goal Details: I from all surfaces Problem: PT Misc Start Date: 06/24/20 Goal Start Date End Date PT LTG - Misc 1 06/24/20 -- Goal Details: Pt will perform all functional mobility I. Goal Start Date End Date PT STG - Misc 1 06/24/20 -- Goal Details: Pt will verbalize and demonstrate understanding of sternal precautions with all functional mobility. 06/26/20 1200 PT Last Visit Session Type Treatment PT Received On 06/26/20 Safe Environment Arm Band Checked;Call Light within Reach;Notified RN;Patient found sitting in Chair;Overbed Table within Reach Subjective Agreeable to Therapy Subjective Comment Yeah, I know I need to. Family/Caregiver Present No Current Functional Status PT Functional Mobility Assist of 1 Precautions Precautions Cardiac sternal Precaution Comments Reviewed precautions. PPE worn by clinician: mask, gloves. Pt wears mask throughout treatment. Activity Tolerance Activity Tolerance Comments Qing: SH Pain Assessment Pain Assessment No/denies pain Balance Balance Yes Static Sitting Balance Static Sitting-Level of Assistance Independent Dynamic Sitting Balance Dynamic Sitting-Level of Assistance Distant supervision Static Standing Balance Static Standing-Level of Assistance Close supervision Dynamic Standing Balance Dynamic Standing-Level of Assistance Contact guard Exercises Hip Flexion x 10 Ankle Pumps x 10 Equipment Use Equipment Use Comments GAit belt not utilized due to chest tube/lines/incision. Bed Mobility Bed Mobility Yes Bed Mobility 1 Bed Mobility From 1 Edge of bed Bed Mobility Type 1 To Bed Mobility to 1 Supine Level of Assistance 1 Moderate Assist Bed Mobility Comments 1 HOB 30 degrees Transfers Transfer Yes Transfer 1 Transfer From 1 Sit Transfer Type 1 To and from Transfer to 1 Stand Technique 1 Sit to stand;Stand to sit Transfer Device 1 No device Transfer Level of Assistance 1 Contact Guard Assist Ambulation Ambulation Yes Ambulation 1 Distance (ft) 1 260 Surface 1 Level tile Device 1 Wheeled walker Assistance 1 Standby Assist Gait: Requires verbal cues to 1 Pace activity Quality of Gait 1 Increased jose, flexed posture Ambulation Comments 1 cues to take it easy 2/2 HR going into A-fib last 2 days. Discussed progressing as he is able. Pt demonstrates with LE muscle twitching post ambulation. Stairs Stairs No Other Comments Other PT Comments Pt sitting up in bed with call light/tray in reach and no further needs. Basic Mobility - 6 Click How much difficulty does the patient have: Turning over in bed 4 How much difficulty does the patient currently have: Sitting down and standing up from a chair witharms? 3 How much difficulty does the patient have: Moving from lying on back to sitting on the side of the bed? 2 How much difficulty does the patient have: Moving to and from a bed to a chair including wheelchair? 3 How much help does the patient currently need: Walk in hospital room? 3 How much help from another person does the patient currently need: Climbing 3-5 steps with a railing? 2 Total 6 Click Score (range 6-24) 17 Score Interpretation 39.67 Plan Plan Continue with current plan Recommendation/Plan PT Recommendation/Plan [facility] Facility (per PT) PT Frequency Daily (per PT) Treatment/Interventions Balance Training;Endurance training;Gait training;Stair training Progress Progressing toward goals PT - Next Appointment 06/27/20 PT Evaluation Complete Yes RICT SUPERVISOR * Shana Alvarado NP - 06/26/2020 10:10 AM CST Cardiac Surgery Daily Progress (06/23) AVR (25 mm Magna Ease), 3v CABG (left [id number], SVG-PDA) SUBJECTIVE Chief complaint : none Interval History: AF to NSR, on oral amiodarone day #2 now. MCTs out today, will increase lasix OBJECTIVE Current Facility-Administered Medications: ??? acetaminophen (TYLENOL) tablet 1,000 mg, 1,000 mg, oral, Q6H LYRIC, Emmie Daniels, PRINT DECORATOR, 1,000 mg at 06/26/20 0407 ??? amiodarone (PACERONE) tablet 400 mg, 400 mg, oral, TID, Emmie Daniels, PRINT DECORATOR, 400 mg at 06/26/20 0707 ??? aspirin enteric coated tablet 81 mg, 81 mg, oral, Daily, Fabi Handy, PRINT DECORATOR, 81 mg at 06/26/20 0824 ??? atorvastatin (LIPITOR) tablet 80 mg, 80 mg, oral, Daily, Fabi Handy, PRINT DECORATOR, 80 mg at 06/24/20 0843 ??? docusate sodium (COLACE) capsule 100 mg, 100 mg, oral, BID, 100 mg at 06/26/20 0825 OR [DISCONTINUED] docusate (COLACE) 10 mg/mL oral liquid 100 mg, 100 mg, feeding tube, BID, Fabi Handy NP ??? ferrous sulfate tablet 325 mg, 65 mg of elemental iron, oral, BID with meals (bkfst, dinner), Daniele Madrigal PRINT DECORATOR, 325 mg at 06/26/20 0826 ??? furosemide (LASIX) tablet 40 mg, 40 mg, oral, BID DIURETIC, Shana Alvarado PRINT DECORATOR ??? heparin 5,000 unit/mL injection 5,000 Units, 5,000 Units, subcutaneous, Q8H LYRIC, Fabi Handy, PRINT DECORATOR, 5,000 Units at 06/26/20 0406 ??? latanoprost (XALATAN) 0.005 % ophthalmic solution 1 drop, 1 drop, each eye, Nightly, Fabi Handy, PRINT DECORATOR, 1 drop at 06/25/202111 ??? METOPROLOL TARTRATE CAPSULE 6.25 MG capsule 6.25 mg, 6.25 mg, oral, BID, Emmie Daniels, PRINT DECORATOR, 6.25 mg at 06/26/20 0707 ??? montelukast (SINGULAIR) tablet 10 mg, 10 mg, oral, Nightly, Shana Alvarado PRINT DECORATOR ??? ondansetron (ZOFRAN) injection 4 mg, 4 mg, intravenous, Q6H PRN, Fabi Handy NP, 4 mg at 06/25/20719 ??? oxyCODONE (ROXICODONE) tablet 5 mg, 5 mg, oral, Q4H PRN, Fabi Handy, MARLENE, 5 mg at 06/26/20824 ??? pantoprazole DR (PROTONIX) extended release tablet 40 mg, 40 mg, oral, BID, Emmie Daniels NP, 40 mg at 06/26/20824 ??? potassium chloride ER (KLOR-CON) extended release tablet 20 mEq, 20 mEq, oral, BID, Shana Alvarado NP ??? ramelteon (ROZEREM) tablet 8 mg, 8 mg, oral, Nightly PRN, Emmie Daniels, MARLENE, 8 mg at 06/25/202119 ??? senna (SENOKOT) tablet 1 tablet, 1 tablet, oral, BID, 1 tablet at 06/26/20824 OR [DISCONTINUED] senna 1.76 mg/mL syrup 8.8 mg, 8.8 mg, feeding tube, BID, Fabi Handy NP Vitals: 24hr Min/Max: Temp Min: 36.4 ??C (97.5 ??F) Max: 37.1 ??C (98.8 ??F) Pulse Min: 71 Max: 131 BP Min: 105/59 Max: 126/73 Resp Min: 18 Max: 20 SpO2 Min: 90 % Max: 97 % Most Recent : Vitals: 06/26/20925 BP: Pulse: 72 Resp: Temp: SpO2: I/O last 2 completed shifts: In: 1110 [P.O.:660; Blood:350; IV Piggyback:100] Out: 2505 [Urine:2225; Chest Tube:280] I/O this shift: In: 200 [P.O.:200] Out: 110 [Chest Tube:110] Physical Exam: Physical Exam Vitals reviewed. Constitutional: Appearance: Normal appearance. He is normal weight. HENT: Head: Normocephalic. Mouth/Throat: Mouth: Mucous membranes are moist. Pharynx: Oropharynx is clear. Eyes: Conjunctiva/sclera: Conjunctivae normal. Cardiovascular: Rate and Rhythm: Normal rate and regular rhythm. Pulses: Normal pulses. Heart sounds: Normal heart sounds. Comments: wires to VVI 60 Pulmonary: Effort: Pulmonary effort is normal. Breath sounds: Normal breath sounds. Comments: On RA Abdominal: General: Abdomen is flat. Bowel sounds are normal. Palpations: Abdomen is soft. Comments: No BM, + BS Musculoskeletal: General: Normal range of motion. Cervical back: Normal range of motion and neck supple. Comments: Trace edema Skin: General: Skin is warm and dry. Comments: Sternum clean and dry Neurological: General: No focal deficit present. Mental Status: He is alert and oriented to person, place, and time. Psychiatric: Mood and Affect: Mood normal. Lab/Radiology/Diagnostic Review: Laboratory review: Lab results in the last 24 hours: Recent Results (from the past 24 hour(s)) CBC without differential Collection Time: 06/25/20 12:20 PM Result Value Ref Range WBC 13.0 (H) 3.8 - 9.9 K/cumm Hgb 8.1 (L) 13.0 - 17.5 g/dL Hct 24.5 (L) 38.9 - 50.3 % Plt 133 (L) 150 - 400 K/cumm MPV 13.0 (H) 9.1 - 12.3 fL RBC 2.79 (L) 4.30 - 5.80 M/cumm MCV 87.8 81.3 - 96.4 fL MCH 29.0 27.1 - 33.3 pg MCHC 33.1 32.3 - 35.7 g/dL RDW CV 14.8 11.1 - 14.9 % RDW SD 47.7 35.7 - 48.1 fL NRBC abs 0.02 (H) 0.00 - 0.01 K/cumm CBC without differential Collection Time: 06/25/20 11:01 PM Result Value Ref Range WBC 11.8 (H) 3.8 - 9.9 K/cumm Hgb 7.6 (L) 13.0 - 17.5 g/dL Hct 23.2 (L) 38.9 - 50.3 % Plt 119 (L) 150 - 400 K/cumm MPV 13.5 (H) 9.1 - 12.3 fL RBC 2.62 (L) 4.30 - 5.80 M/cumm MCV 88.5 81.3 - 96.4 fL MCH 29.0 27.1 - 33.3 pg MCHC 32.8 32.3 - 35.7 g/dL RDW CV 14.9 11.1 - 14.9 % RDW SD 48.1 35.7 - 48.1 fL NRBC abs 0.03 (H) 0.00 - 0.01 K/cumm Basic metabolic panel Collection Time: 06/25/20 11:01 PM Result Value Ref Range Sodium 139 135 - 145 mmol/L Potassium, pl 4.1 3.3 - 4.9 mmol/L Chloride 106 97 - 110 mmol/L CO2 28 22 - 32 mmol/L Anion gap 5 2 - 15 mmol/L BUN 24 8 - 25 mg/dL Creatinine 1.28 0.80 - 1.30 mg/dL Glucose 127 70 - 199 mg/dL Calcium 8.4 (L) 8.5 - 10.3 mg/dL ASSESSMENT/PLAN Atrial fibrillation (CMS/HCC) Assessment & Plan Developed A fib with RVR 06/25 Rx: Amiodarone IV bolus and po load initiated, QTc daily (today 482) Was in NSR overnight, but converted to AF again this am. Metoprolol added-converted to NSR Monitor on telemetry May need AC if intermittent AF persists. Acute postoperative anemia due to expected blood loss Assessment & Plan Expected finding s/p CABG, AVR Monitor CBC daily Transfused 1 unit PRBCs overnight for H&H 6.09/15 Today up to 7.6, will follow with daily CBCs Added FeSo4 Guaiac all specimens-continue bid PPI Hx of intestinal bleed in the past with H. Pylori Coronary artery disease without angina pectoris Assessment & Plan S/p CABG x 3 as L radial-OM, SVG-PDA also 06/23 Continue ASA, Statin, beta doni. Increase BB as tolerated Left RA hand with decreased mobility, incision OK. Using ball and ROM exercises HLD (hyperlipidemia) Assessment & Plan Continue Atorvastatin Low fat diet Hypertension, essential Assessment & Plan VS q 4 hrs Continue Metorpolol Aortic valve stenosis Assessment & Plan S/p AVR (25 mm Magna ease) 06/23 Routine post op care Ct and lennon out Wires to VVI 60 backup AF yesterday Shana Alvarado NP 06/26/2020 Cosigned by Felton Chiu MD at 06/27/2020 8:24 AM DISTRICT SUPERVISOR RICT SUPERVISOR RICT SUPERVISOR * Daniele Madrigal NP - 06/25/2020 9:20 AM CST Cardiac Surgery Daily Progress 2 Days Post-Op CABG, AVR SUBJECTIVE Chief complaint of I'm so weak Interval History: transfer from ICU, A fib, ABLA OBJECTIVE Current Facility-Administered Medications: ??? acetaminophen (TYLENOL) tablet 1,000 mg, 1,000 mg, oral, Q6H LYRIC, Emmie Daniels, PRINT DECORATOR, 1,000 mg at 06/25/20 0105 ??? amiodarone (PACERONE) tablet 400 mg, 400 mg, oral, TID, Emmie Daniels PRINT DECORATOR, 400 mg at 06/25/20 09 ??? aspirin enteric coated tablet 81 mg, 81 mg, oral, Daily, Fabi Handy NP, 81 mg at 06/25/20 09 ??? atorvastatin (LIPITOR) tablet 80 mg, 80 mg, oral, Daily, Fabi Handy PRINT DECORATOR, 80 mg at 06/24/20 0843 ??? docusate sodium (COLACE) capsule 100 mg, 100 mg, oral, BID, 100 mg at 06/25/20 09 OR [DISCONTINUED] docusate (COLACE) 10 mg/mL oral liquid 100 mg, 100 mg, feeding tube, BID, Fabi Handy PRINT DECORATOR ??? heparin 5,000 unit/mL injection 5,000 Units, 5,000 Units, subcutaneous, Q8H LYRIC, Fabi Handy, PRINT DECORATOR, 5,000 Units at 06/24/202101 ??? latanoprost (XALATAN) 0.005 % ophthalmic solution 1 drop, 1 drop, each eye, Nightly, Fabi Handy, PRINT DECORATOR, 1 drop at 06/24/202038 ??? METOPROLOL TARTRATE CAPSULE 6.25 MG capsule 6.25 mg, 6.25 mg, oral, BID, Emmie Daniels, MARLENE, 6.25 mg at 06/25/20510 ??? ondansetron (ZOFRAN) injection 4 mg, 4 mg, intravenous, Q6H PRN, Fabi Handy, MARLENE, 4 mg at 06/25/20719 ??? oxyCODONE (ROXICODONE) tablet 5 mg, 5 mg, oral, Q4H PRN, Fabi Handy, MARLENE, 5 mg at 06/25/20 012 ??? pantoprazole DR (PROTONIX) extended release tablet 40 mg, 40 mg, oral, BID, Emmie Daniels, MARLENE, 40 mg at 06/25/20905 ??? ramelteon (ROZEREM) tablet 8 mg, 8 mg, oral, Nightly PRN, Emmie Daniels, MARLENE, 8 mg at 06/25/20115 ??? senna (SENOKOT) tablet 1 tablet, 1 tablet, oral, BID, 1 tablet at 06/25/20905 OR [DISCONTINUED] senna 1.76 mg/mL syrup 8.8 mg, 8.8 mg, feeding tube, BID, Fabi Handy, PRINT DECORATOR Vitals: 24hr Min/Max: Temp Min: 36.6 ??C (97.9 ??F) Max: 36.9 ??C (98.4 ??F) Pulse Min: 82 Max: 150 BP Min: 86/55 Max: 124/63 Resp Min: 16 Max: 23 SpO2 Min: 90 % Max: 100 % Most Recent : Vitals: 06/25/20737 BP: 112/62 Pulse: 82 Resp: 20 Temp: 36.7 ??C (98.1 ??F) SpO2: 100% I/O last 2 completed shifts: In: 406 [P.O.:375; I.V.:11; IV Piggyback:20] Out: 1550 [Urine:1250; Chest Tube:300] I/O this shift: In: 570 [P.O.:120; Blood:350; IV Piggyback:100] Out: 330 [Urine:150; Chest Tube:180] Physical Exam: Physical Exam HENT: Head: Normocephalic and atraumatic. Mouth/Throat: Mouth: Mucous membranes are moist. Pharynx: Oropharynx is clear. Eyes: Conjunctiva/sclera: Conjunctivae normal. Pupils: Pupils are equal, round, and reactive to light. Cardiovascular: Rate and Rhythm: Normal rate and regular rhythm. Pulses: Normal pulses. Heart sounds: Normal heart sounds. Pulmonary: Effort: Pulmonary effort is normal. Breath sounds: Normal breath sounds. Abdominal: General: Abdomen is flat. Bowel sounds are normal. Palpations: Abdomen is soft. Musculoskeletal: General: Normal range of motion. Cervical back: Normal range of motion and neck supple. Skin: General: Skin is warm and dry. Neurological: General: No focal deficit present. Mental Status: He is alert and oriented to person, place, and time. Psychiatric: Mood and Affect: Mood normal. Lab/Radiology/Diagnostic Review: Laboratory review: Lab results in the last 24 hours: Recent Results (from the past 24 hour(s)) Basic metabolic panel Collection Time: 06/24/20 11:26 AM Result Value Ref Range Sodium 143 135 - 145 mmol/L Potassium, pl 4.5 3.3 - 4.9 mmol/L Chloride 108 97 - 110 mmol/L CO2 26 22 - 32 mmol/L Anion gap 9 2 - 15 mmol/L BUN 17 8 - 25 mg/dL Creatinine 1.07 0.80 - 1.30 mg/dL Glucose 145 70 - 199 mg/dL Calcium 8.8 8.5 - 10.3 mg/dL POCT glucose Collection Time: 06/24/20 11:26 AM Result Value Ref Range Glucose, POC 146 70 - 199 mg/dL CBC without differential Collection Time: 06/24/20 11:27 AM Result Value Ref Range WBC 12.7 (H) 3.8 - 9.9 K/cumm Hgb 8.0 (L) 13.0 - 17.5 g/dL Hct 23.9 (L) 38.9 - 50.3 % Plt 136 (L) 150 - 400 K/cumm MPV 12.6 (H) 9.1 - 12.3 fL RBC 2.74 (L) 4.30 - 5.80 M/cumm MCV 87.2 81.3 - 96.4 fL MCH 29.2 27.1 - 33.3 pg MCHC 33.5 32.3 - 35.7 g/dL RDW CV 14.7 11.1 - 14.9 % RDW SD 47.2 35.7 - 48.1 fL NRBC abs 0.00 0.00 - 0.01 K/cumm Basic metabolic panel Collection Time: 06/24/20 9:04 PM Result Value Ref Range Sodium 141 135 - 145 mmol/L Potassium, pl 4.2 3.3 - 4.9 mmol/L Chloride 108 97 - 110 mmol/L CO2 25 22 - 32 mmol/L Anion gap 8 2 - 15 mmol/L BUN 19 8 - 25 mg/dL Creatinine 1.09 0.80 - 1.30 mg/dL Glucose 149 70 - 199 mg/dL Calcium 8.7 8.5 - 10.3 mg/dL CBC without differential Collection Time: 06/24/20 9:04 PM Result Value Ref Range WBC 11.9 (H) 3.8 - 9.9 K/cumm Hgb 7.2 (L) 13.0 - 17.5 g/dL Hct 22.1 (L) 38.9 - 50.3 % Plt 115 (L) 150 - 400 K/cumm MPV 13.2 (H) 9.1 - 12.3 fL RBC 2.49 (L) 4.30 - 5.80 M/cumm MCV 88.8 81.3 - 96.4 fL MCH 28.9 27.1 - 33.3 pg MCHC 32.6 32.3 - 35.7 g/dL RDW CV 14.6 11.1 - 14.9 % RDW SD 47.5 35.7 - 48.1 fL NRBC abs 0.00 0.00 - 0.01 K/cumm Magnesium Collection Time: 06/24/20 9:04 PM Result Value Ref Range Magnesium 2.3 1.4 - 2.5 mg/dL Type and screen Collection Time: 06/25/20 4:02 AM Result Value Ref Range Jasmine, indirect Negative ABO Rh A Negative CBC without differential Collection Time: 06/25/20 4:02 AM Result Value Ref Range WBC 11.0 (H) 3.8 - 9.9 K/cumm Hgb 6.5 (L) 13.0 - 17.5 g/dL Hct 20.0 (L) 38.9 - 50.3 % Plt 110 (L) 150 - 400 K/cumm MPV 12.9 (H) 9.1 - 12.3 fL RBC 2.28 (L) 4.30 - 5.80 M/cumm MCV 87.7 81.3 - 96.4 fL MCH 28.5 27.1 - 33.3 pg MCHC 32.5 32.3 - 35.7 g/dL RDW CV 14.7 11.1 - 14.9 % RDW SD 46.7 35.7 - 48.1 fL NRBC abs 0.00 0.00 - 0.01 K/cumm Prepare RBC: 1 Units Collection Time: 06/25/20 4:42 AM Result Value Ref Range Product code [id number] Unit Number [id number] Product Blood Type ANEG Dispense Status ISSUED ASSESSMENT/PLAN Atrial fibrillation (CMS/HCC) Assessment & Plan Developed A fib with RVR overnight Rx: Amiodarone IV bolus and po load initiated Metoprolol added-converted to NSR Monitor on telemetry Acute postoperative anemia due to expected blood loss Assessment & Plan Expected finding s/p CABG, AVR Monitor CBC daily Transfused 1 unit PRBCs overnight for H&H Add FeSo4 Guaiac all specimens-continue bid PPI Coronary artery disease without angina pectoris Assessment & Plan S/p CABG x 3 as L radial-OM, SVG-PDA Continue ASA, Statin, beta doni HLD (hyperlipidemia) Assessment & Plan Continue Atorvastatin Low fat diet Hypertension, essential Assessment & Plan VS q 4 hrs Continue Metorpolol Aortic valve stenosis Assessment & Plan S/p AVR (25 mm Magna ease) 06/23 Routine post op care DC chest tubes and lennon today Daniele Madrigal NP 06/25/2020 RICT SUPERVISOR * Sumeet Renteria, PT - 06/24/2020 1:59 PM CST Physical Therapy Physical Therapy Initial Assessment NOTE: This is a summary note for the butler assessments completed during the evaluation session. For full details, review chart review for all flowsheets documented on by this physical therapist on thisdate. Vital signs documented in vital signs flowsheet. Assessment Assessment Prognosis: Good Problem List: Gait deviations, Decreased strength, Decreased endurance, Impaired balance, Decreasedmobility, Pain, Orthopedic restrictions Problem List Comments: Pt s/p AVR and 3-v CABG results in above listed activity deficits and impairments which prevent full participation in home and community mobility. Barriers to Discharge: Current Mobility Status, Home environment challenged Plan Plan Plan : Plan of care initiated, If this is the last note, consider this the discharge summary PT Recommendation and Plan Recommendation/Plan PT Recommendation/Plan: [facility] Facility PT Recommendation/Plan Comments: pending stairs PT Frequency: Daily(6-7x/week) Treatment/Interventions: Balance Training, Bed mobility, Endurance training, Equipment eval/education, Functional activity, Functional transfer training, Gait training, Neuromuscular re-education, Parent/caregiver training and education, Stair training, Strengthening, Therapeutic activity, Therapeutic exercise, Transfer training PT - Next Appointment: 06/25/20 PT Evaluation Complete: Yes General Information General Chart Reviewed: Yes Session Type: Evaluation PT Received On: 06/24/20 Safe Environment: Arm Band Checked, Notified RN, Session Completed Bedside, Patient found in Supine Subjective: Agreeable to Therapy Subjective Comment: I'll try Family/Caregiver Present: No Physical Therapy-Patient Goal: I want to go home Prior Function Prior Function Level of Spink: Independent with ADLs, Independent functional transfers, Independent with ambulation, Independent with homemaking with ambulation Lives With: Spouse Receives Help From: Spouse/Significant other(full-time assist from ) Driving: Yes Vocational/Occupation: Retired Fall within the last 6 months: No Home Living Home Living Type of Home: House Home Layout: Two level, Bed/bath upstairs Home Access: Stairs to enter without rails Entrance Stairs-Rails: None Entrance Stairs-Number of Steps: 2 Home Mobility Equipment: Wheeled walker, Single point cane Additional Comments: Pt reports typically ambulating without AD at baseline Precautions Precautions Precautions: Airway, Aspiration, Bleeding, Cardiac sternal, Fall risk Pain Pain Assessment Pain Assessment: 0-10 Pain Score: 2 Pain Type: Surgical pain Pain Location: Incision Pain Orientation: Mid Cognition Cognition Arousal/Alertness: Alert, Appropriate responses to stimuli Orientation : Oriented X4 (person, place, time, situation) Following Commands: Follows all commands and directions without difficulty Safety Judgment: Good awareness of safety precautions Compliance/Behavior: Easy to engage 6 Clicks Basic Mobility - 6 Click How much difficulty does the patient have: Turning over in bed: None How much difficulty does the patient currently have: Sitting down and standing up from a chair witharms?: None How much difficulty does the patient have: Moving from lying on back to sitting on the side of the bed?: A little How much difficulty does the patient have: Moving to and from a bed to a chair including wheelchair?: None How much help does the patient currently need: Walk in hospital room?: None How much help from another person does the patient currently need: Climbing 3-5 steps with a railing?: A lot Total 6 Click Score (range 6-24): 21 Score Interpretation: 21 Bed Mobility Bed Mobility Bed Mobility: Yes Bed Mobility 1 Bed Mobility From 1: Supine Bed Mobility Type 1: To Bed Mobility to 1: Edge of bed Level of Assistance 1: Minimum Assist Bed Mobility Comments 1: HOB elevated 60 degrees; assist for trunk elevation Transfers Transfers Transfer: Yes Transfer 1 Transfer From 1: Sit, Bed Transfer Type 1: To and from Transfer to 1: Stand Technique 1: Sit to stand, Stand to sit Transfer Device 1: No device Transfer Level of Assistance 1: Standby Assist Trials/Comments 1: assist for safety Balance Static Sitting Balance Static Sitting-Balance Support: No upper extremity supported, Feet supported Static Sitting-Sitting Surface: Bed, Chair Static Sitting-Level of Assistance: Distant supervision Static Sitting-Comment/# of Minutes: assist for safety Static Standing Balance Static Standing-Balance Support: Bilateral upper extremity supported Static Standing-Standing Surface: Floor Static Standing-Level of Assistance: Close supervision Static Standing-Comment/# of Minutes: BUE support on w/c, assist for safety Ambulation Ambulation Ambulation: Yes Ambulation 1 Distance (ft) 1: 320 Surface 1: Level tile Device 1: Other (comments)(pushing w/c) Assistance 1: Standby Assist Gait: Requires verbal cues to 1: Improve upright posture, Increase step length, Pace activity Quality of Gait 1: Decreased step length and jose Stairs Stairs Stairs: No RLE Assessment RLE Assessment RLE Assessment: Within Functional Limits LLE Assessment LLE Assessment LLE Assessment: Within Functional Limits Equipment Used Equipment Use Equipment Use Comments: Gait belt not in use 2/2 lines and tubes PT Goals Multi-Disciplinary Problems (from Physical Therapy) Active Problems Problem: Mobility Start Date: 06/24/20 Goal Start Date End Date STG - Patient will ambulate 06/24/20 -- Goal Details: 200' on indoor, level surfaces, without AD, I. Goal Start Date End Date STG - Patient will ascend and descend a flight of stairs 06/24/20 -- Goal Details: With rail, per home set-up, mod I. Problem: Transfers Start Date: 06/24/20 Goal Start Date End Date STG - Patient to transfer to and from sit to supine 06/24/20 -- Goal Details: Mod I from flat bed Goal Start Date End Date STG - Patient will transfer sit to and from stand 06/24/20 -- Goal Details: I from all surfaces Problem: PT Misc Start Date: 06/24/20 Goal Start Date End Date PT LTG - Misc 1 06/24/20 -- Goal Details: Pt will perform all functional mobility I. Goal Start Date End Date PT STG - Misc 1 06/24/20 -- Goal Details: Pt will verbalize and demonstrate understanding of sternal precautions with all functional mobility. RICT SUPERVISOR * Gila Cheng RN - 06/24/2020 1:45 PM CST CM Initial Assessment Interview Note Information Obtained From: Patient (06/24/20 1340) Admission Source: from home Impression: Here with , CAD for CABG and AVR on 06/23/20. Has 3 chest tubes, to move to floor now Plan Includes: Return to home. If home health needed, will provide list of agencies. Primary Source of Transportation: Does the patient need discharge transport arranged?: No( to provide ride) (06/24/20 1344) Health Insurance Coverage: Medicare and Blue Cross Prescription Coverage: yes Pharmacy: [facility] in [facility] [place] [facility] Primary Care Provider: Martin López MD Prior to Admission: Primary Caregiver: Self Support System: Spouse/Significant Other Support system contact info (name, phone, availablity): Lives with (Josi Wagner, )who is able to assist Home Care Services: No Durable Medical Equipment: Walker (wheeled), Cane (single prong), Home Modification Assessment (railes in bathroom), Toilet Riser, Shower chair Living Arrangements: Spouse/significant other Type of Residence: Private residence Steps in home? : Yes, Outside of home, Yes, Inside home Number of steps inside:: 13 steps Number of steps outside:: 1 steps (06/24/20 1340) Potential discharge needs include: alf, (06/24/20 1340) Dialysis: Dialysis: No (06/24/20 134) Behavioral Health Services: Patient expects to be Discharged to: Private residence, (06/24/20 0500) Additional Information: would agree to HH. Not had in past but has. She showed up as I was leaving and cannot recall the agency she used. She will assist at home. Patient's Identified Problem/Goal Problem: Ensure acute medical [...] Collaboration with patient, MD, direct care nurse, Mechanical Assembly Technician, Nurse Coordinator and other members of the health care team to assure needed interventions completed. 2. Return patient to optimal level of self-care post discharge. 3. Sweatband Separator will follow for Discharge Planning - interventions as needed 4. Anticipated level of care at discharge 5. Planned Discharge Disposition Based on a comprehensive family assessment, assistance with instrumental activities of daily livingafter discharge will be provided by Through the course of our work I determined that the possesses the skill and ability to provide and monitor the care of the patient when he or she returns home. has the capacity to provide/monitor/arrange for the care of the patient. Finally, we determined that has the knowledge of available resources and that combining them with their existing resources will suffice to sustain andcare for the patient when he or she returns home. The treatment team is aware of this information. All are in agreement with the aftercare plan. Gila Cheng RN RICT SUPERVISOR * Celine Long, OT - 06/24/2020 9:05 AM CST Occupational Therapy Occupational Therapy Initial Assessment NOTE:This is a summary note for the butler assessments completed during the evaluation session. For full details, review chart review for all flowsheets documented on by this Occupational Therapist on this date. Vital signs documented in vital signs flowsheet. Assessment Assessment Problem List: Decreased safe judgment during ADL, Decreased endurance, Decreased balance, Decreasedfunctional mobility, Decreased ADL independence, Decreased IADL independence Barriers to Discharge: Current Mobility Status, Decreased safety awareness Plan Plan Plan: Plan of care initiated, If this is the last note, consider this the discharge summary OT Recommendation and Plan Recommendation/Plan OT Recommendation: Home with family, Home with 24 hour supervision, Home Health OT OT Frequency: 3-5x/wk Comments: Pt sweet and motivated, slightly anxious, requires min vc's to maintain sternal precautions. Pt L handed, but since the sternotomy has been unable to actively extend his last 3 digits of his L hand, PROM WFL and sensation intact, educated pt on AAROM to prevent contractures. Treatment/Interventions: ADL/IADL retraining, Balance Training, Bed mobility, Endurance training, Functional activity, Functional mobility training, Functional transfer training, Therapeutic activity, Therapeutic exercise, Transfer training OT - Next Appointment: 06/27/20 OT - OK to Discharge: No OT Evaluation Complete: Yes General Information General Chart Reviewed: Yes Session Type: Evaluation OT Received On: 06/24/20 Safe Environment: Arm Band Checked, Call Light within Reach, Notified RN, Patient found sitting in Chair(left sitting up in chair) Subjective: Agreeable to Therapy Family/Caregiver Present: No Precautions Precautions Precautions: Cardiac sternal, Fall risk Home Living Home Living Type of Home: House Home Layout: Two level, Bed/bath upstairs Home Access: Stairs to enter without rails Entrance Stairs-Rails: None Entrance Stairs-Number of Steps: 2 Bathroom Shower/Tub: Walk-in shower with threshold Bathroom Toilet: Standard Bathroom Equipment: Built-in shower seat Home Mobility Equipment: Wheeled walker, Single point cane Prior Function Prior Function Level of Spink: Independent with ADLs, Independent with homemaking with ambulation Lives With: Spouse Receives Help From: Spouse/Significant other(daytime babysitter assist available) Driving: Yes ADL Assistance: Independent Instrumental ADL (IADL) Assistance: Independent Vocational/Occupation: Retired Fall within the last 6 months: No Activities of Daily Living Grooming Grooming: Where assessed: (standing at tray table) Grooming: Level of assistance: Minimum Assist Grooming: Assistance with: Increased time to complete, Manipulation of containers(min A for task, CGA for balance) LE Dressing LE Dressing: Where assessed: Chair LE Dressing: Level of assistance: Moderate Assist LE Dressing: Assistance with: Increased time to complete, Don/doff R sock, Thread RLE into pants, Thread RLE into underwear, Pull up over hips, Fasteners(mod A for task) Toileting Toileting: Where assessed: Chair(simulated) Toileting: Level of assistance: Moderate Assist Toileting: Assistance with: Increased time to complete, Clothing management up, Clothing managementdown, Posterior(mod A for task) Toilet Transfers Toilet Transfer From: (Chair) Toilet Transfer Type: To and from Toilet Transfer to: (Chair (simulated)) Toilet Transfer Technique: Stand pivot(sit <> stand) Toilet Transfer: Equipment: No device Toilet Transfers: Contact guard Toilet Transfers Comments: CGA for balance assist, safety Pain Pain Assessment Pain Assessment: No/denies pain Cognition Cognition Arousal/Alertness: Alert, Appropriate responses to stimuli Attention Span: Age appropriate, Appears intact Memory: Decreased short term memory Current communication: Appears Intact Orientation : Oriented X4 (person, place, time, situation) Following Commands: Follows all commands and directions without difficulty Safety Judgment: Good awareness of safety precautions Awareness of Errors: Good awareness of errors made Insight: Fully aware of deficits Problem Solving: Able to problem solve independently Compliance/Behavior: Easy to engage Perseveration: Not present Cullen Cognitive Assessment-Blind (MOCA-Blind) MOCA-Blind Version: Version 3 Memory-Blind: Memory not scored Attention-Blind: 6 Language-Blind: 3 Abstraction-Blind: 2 Delayed Recall-Blind: 2 Orientation-Blind: 6 Education Level-Blind: Education Greater than 12 years MOCA Total Score-Blind: 19 Score Evaluation-Blind: 18-22 Normal 6 Clicks Balance Dynamic Sitting Balance Dynamic Sitting-Balance Support: No upper extremity supported, Feet supported Dynamic Sitting-Balance: Lateral lean, Forward lean, Reaching for objects, Reaching across midline Dynamic Sitting-Sitting Surface: Chair Dynamic Sitting-Level of Assistance: Close supervision Dynamic Sitting-Comments: sup for safety while sitting for LB dressing Dynamic Standing Balance Dynamic Standing-Balance Support: No upper extremity supported Dynamic Standing-Balance: Lateral lean, Forward lean, Reaching for objects, Reaching across midline Dynamic Standing-Standing Surface: Floor Dynamic Standing-Level of Assistance: Contact guard Dynamic Standing-Comments: CGA for balance assist, safety, while standing for grooming task Transfers Transfers Transfer: Yes(Gait belt not utilized 2/2 location of incision) Transfer 1 Transfer From 1: Sit Transfer Type 1: To and from Transfer to 1: Stand Technique 1: Sit to stand, Stand to sit Transfer Device 1: No device Transfer Level of Assistance 1: Contact Guard Assist Trials/Comments 1: CGA for balance assist, safety Transfers 2 Trials/Comments 2: Functional mobility: CGA for balance assist, safety, 4-5 steps towards tray table Bed Mobility Bed Mobility Bed Mobility: No(Pt sitting up in chair, wishes to remain up in chair) RUE Assessment RUE Assessment RUE Assessment: Within Functional Limits(AROM WFL, no MMT 2/2 sternal precautions) LUE Assessment LUE Assessment LUE Assessment: Within Functional Limits(AROM WFL, no MMT 2/2 sternal precautions) Other Comments Other Comments Comments: Pt sweet and motivated, slightly anxious, requires min vc's to maintain sternal precautions. Pt L handed, but since the sternotomy has been unable to actively extend his last 3 digits of his L hand, PROM WFL and sensation intact, educated pt on AAROM to prevent contractures. OT Goals Multi-Disciplinary Problems (from Occupational Therapy) Active Problems Problem: Dressings Lower Extremities Start Date: 06/24/20 Goal Start Date End Date STG - Patient to complete lower body dressing 06/24/20 -- Problem: Grooming Start Date: 06/24/20 Goal Start Date End Date STG - Patient will complete grooming 06/24/20 -- Problem: Toileting Start Date: 06/24/20 Goal Start Date End Date STG - Patient will complete toileting tasks with 06/24/20 -- Problem: Transfers Start Date: 06/24/20 Goal Start Date End Date STG - Patient will perform toilet transfer 06/24/20 -- Problem: OT Misc Start Date: 06/24/20 Goal Start Date End Date OT LTG - Misc 1 06/24/20 -- For questions, please review the treatment team and contact the occupational therapist currently assigned to this patient. If an occupational therapist is not assigned to this patient, please call [phone]. RICT SUPERVISOR * Chino Sanders MD - 06/24/2020 12:14 AM CST CTICU Daily Progress Note Shifts: MD Shift Options: CTI PM 1 Subjective Patient is a 74 y.o. male admitted on 06/23/2020 5:17 AM for the following: known hx of aortic stenosis who presents with progressively worsening fatigue. He denies chest pain, shortness of breath, orthopnea, or PND. LHC shows moderate 3 vessel CAD with lesions (50% proximalto mid LAD, 40-50% mid circ, 50-60% distal RCA). Pre-op TTE showed severe with mean gradient 51 mmHg, normal RV function, moderate LVH with LVEF 75%, and no other valvular abnormalities. Nathan Wagner is 1 Day Post-Op from Procedure(s): CORONARY ARTERY BYPASS GRAFT WITH PUMPx3 HARVEST - RADIAL ARTERY ENDOSCOPIC VESSEL HARVEST REPLACEMENT AORTIC VALVE Interval History: Resuscitation with 500 mL LR bolus for elevated lactate Objective Medications Scheduled Meds:acetaminophen, 1,000 mg, oral, Q6H LYRIC ceFAZolin, 2,000 mg, intravenous, Q8H docusate sodium, 100 mg, oral, BID Or docusate, 100 mg, feeding tube, BID famotidine, 20 mg, intravenous, Daily senna, 1 tablet, oral, BID Or senna, 8.8 mg, feeding tube, BID vancomycin, 1,000 mg, intravenous, Q24H LYRIC Continuous Infusions:EPINEPHrine, 0.02 mcg/kg/min, Last Rate: 0.01 mcg/kg/min (06/23/202199) insulin regular, 0-30 Units/hr, Last Rate: 2 Units/hr (06/23/202199) Lactated Ringer's, 10 mL/hr, Last Rate: 10 mL/hr (06/23/202199) niCARdipine, 0.5-2.5 mcg/kg/min, Last Rate: 0.5 mcg/kg/min (06/23/202253) propofol, 0-50 mcg/kg/min, Last Rate: Stopped (06/23/201557) sodium chloride 0.9%, 1,000 mL, Last Rate: 9 mL/hr at 06/23/202199 PRN Meds:HYDROmorphone ??? ondansetron ??? oxyCODONE ??? potassium chloride ??? sodium chloride 0.9% Vital signs for last 24 hours: Temp: [36.5 ??C (97.7 ??F)-37.3 ??C (99.1 ??F)] 36.5 ??C (97.7 ??F) Pulse: [72-95] 88 BP: (131-157)/(62-90) 140/68 Resp: [0-23] 15 SpO2: [92 %-100 %] 100 % SVO2: [65 %-76 %] 70 % Arterial Line BP: (117-155)/(50-69) 142/56 FiO2 (%): [40 %-60 %] 40 % Hemodynamics: PAP: 29/13 (06/23 2199) CVP: 6 mmHg (06/23 2199) PCWP: -- CO: 6.5 L/min (06/23 1699) CI: 3.1 L/min/m2 (06/23 1699) SVO2: 70 % (06/23 2199) Pacemaker Overdrive Pacing: -- Cardiac Rhythm: Normal sinus rhythm (06/23 2199) Pacer Mode: -- EPINEPHrine, 0.02 mcg/kg/min, Last Rate: 0.01 mcg/kg/min (06/23/202199) insulin regular, 0-30 Units/hr, Last Rate: 2 Units/hr (06/23/202199) Lactated Ringer's, 10 mL/hr, Last Rate: 10 mL/hr (06/23/202199) niCARdipine, 0.5-2.5 mcg/kg/min, Last Rate: 0.5 mcg/kg/min (06/23/202253) propofol, 0-50 mcg/kg/min, Last Rate: Stopped (06/23/201557) sodium chloride 0.9%, 1,000 mL, Last Rate: 9 mL/hr at 06/23/20 2200 Pulmonary Support: O2 Therapy: Supplemental oxygen O2 Del Method: Nasal cannula FiO2 (%): 40 % O2 Flow Rate (L/min): 4 L/min Adult Vent Mode: Pressure support Ventilation FiO2 (%): 40 % S RR: 0 PEEP/CPAP/EPAP (cm H2O): 5 cm H20 Pressure Support (cm H2O): 10 cm H20 Intake/Output: I/O this shift: In: 314.5 [I.V.:134.5; IV Piggyback:180] Out: 1125 [Urine:650; Drains:60; Chest Tube:415] Intake/Output Summary (Last 24 hours) at 06/24/2020 0014 Last data filed at 06/23/2020 2200 Gross per 24 hour Intake 2420.83 ml Output 2460 ml Net -39.17 ml Physical exam: Constitutional: in no apparent distress Eyes: PERRLA HEENT: NC/AT CV: RRR, palpable distal pulses Pulm: Equal chest rise, breath sounds bilaterally Abdomen: soft, non-distended : lennon in place Extremities: no deformities Skin: Warm, dry, pink Neuro: A&O x4 Lab/Radiology/Diagnostic Review: Labs: Recent Results (from the past 48 hour(s)) Prepare RBC: 6 Units Collection Time: 06/23/20 6:06 AM Result Value Ref Range Product code Q2076H65 Unit Number [id number] Product Blood Type ANEG Dispense Status CROSSMATCHED Product code L0524S16 Unit Number [id number] Product Blood Type ANEG Dispense Status CROSSMATCHED Product code T2742X66 Unit Number [id number] Product Blood Type ANEG Dispense Status ISSUED Product code X7390Z87 Unit Number [id number] Product Blood Type ANEG Dispense Status RETURNED Product code S6230S97 Unit Number [id number] Product Blood Type ANEG Dispense Status ISSUED Product code Z1765Z29 Unit Number [id number] Product Blood Type ANEG Dispense Status RETURNED POC Blood Gas and Chemistries, Arterial - Collection Time: 06/23/20 7:15 AM Result Value Ref Range pH, Art POC 7.43 7.35 - 7.45 pCO2, Art POC 44 35 - 45 mmHg pO2, Art POC 430 (H) 83 - 108 mmHg Na, POC 139 135 - 145 mmol/L K POC 4.7 3.3 - 4.9 mmol/L Cl, POC 107 97 - 110 mmol/L Ionized Ca, POC 4.92 4.50 - 5.10 mg/dL Glucose, POC 137 70 - 199 mg/dL Lactate, POC 1.7 0.7 - 2.2 mmol/L SO2 (miguelangel) arterial 100 (H) 90 - 95 % Base Excess, POC 4.2 mmol/L HCO3, Art POC 29 20 - 30 mmol/L Hct, POC 45.0 41.4 - 51.6 % O2 Sat, Art POC (Calc) 100 % Total Hb, POC 14.9 13.8 - 17.2 g/dL Prepare platelets: 2 Units Collection Time: 06/23/20 11:22 AM Result Value Ref Range Product code L8598Q52 Unit Number [id number] Product Blood Type APOS Dispense Status ISSUED Product code G8758F92 Unit Number [id number] Product Blood Type APOS Dispense Status RETURNED POC Blood Gas and Chemistries, Arterial - Collection Time: 06/23/20 11:35 AM Result Value Ref Range pH, Art POC 7.36 7.35 - 7.45 pCO2, Art POC 40 35 - 45 mmHg pO2, Art POC 387 (H) 83 - 108 mmHg Na, POC 140 135 - 145 mmol/L K POC 5.5 (H) 3.3 - 4.9 mmol/L Cl, POC 110 97 - 110 mmol/L Ionized Ca, POC 4.47 (L) 4.50 - 5.10 mg/dL Glucose, POC 205 (H) 70 - 199 mg/dL Lactate, POC 2.2 0.7 - 2.2 mmol/L SO2 (miguelangel) arterial 100 (H) 90 - 95 % Base Excess, POC -2.7 mmol/L HCO3, Art POC 23 20 - 30 mmol/L Hct, POC 33.0 (L) 41.4 - 51.6 % O2 Sat, Art POC (Calc) 100 % Total Hb, POC 11.0 (L) 13.8 - 17.2 g/dL Thrombocyte inhibited fibrinogen (FIBTEM) Collection Time: 06/23/20 12:12 PM Result Value Ref Range Maximum Clot Firm-Fibrinogen 18 9 - 29 mm Extrensic thromboelastometry (EXTEM) Collection Time: 06/23/20 12:12 PM Result Value Ref Range Clotting Time-Extrinsic 73 (H) 42 - 60 sec Clot Formation Time-Extrinsic 90 45 - 131 sec Angle-Extrinsic 74 65 - 83 Degree Max Clot Firmness-Extrinsic 64 53 - 75 mm Lysis 30-Extrinsic 100 85 - 100 % POC Blood Gas and Chemistries, Arterial - Collection Time: 06/23/20 12:33 PM Result Value Ref Range pH, Art POC 7.36 7.35 - 7.45 pCO2, Art POC 41 35 - 45 mmHg pO2, Art POC 364 (H) 83 - 108 mmHg Na, POC 140 135 - 145 mmol/L K POC 5.4 (H) 3.3 - 4.9 mmol/L Cl, POC 111 (H) 97 - 110 mmol/L Ionized Ca, POC 4.42 (L) 4.50 - 5.10 mg/dL Glucose, POC 183 70 - 199 mg/dL Lactate, POC 2.1 0.7 - 2.2 mmol/L SO2 (miguelangel) arterial 99 (H) 90 - 95 % Base Excess, POC -2.2 mmol/L HCO3, Art POC 23 20 - 30 mmol/L Hct, POC 29.0 (L) 41.4 - 51.6 % O2 Sat, Art POC (Calc) 100 % Total Hb, POC 9.8 (L) 13.8 - 17.2 g/dL POC Blood Gas and Chemistries, Arterial - Collection Time: 06/23/20 1:44 PM Result Value Ref Range pH, Art POC 7.37 7.35 - 7.45 pCO2, Art POC 37 35 - 45 mmHg pO2, Art POC 268 (H) 83 - 108 mmHg Na, POC 141 135 - 145 mmol/L K POC 4.7 3.3 - 4.9 mmol/L Cl, POC 114 (H) 97 - 110 mmol/L Ionized Ca, POC 5.35 (H) 4.50 - 5.10 mg/dL Glucose, POC 170 70 - 199 mg/dL Lactate, POC 4.0 (Critical) 0.7 - 2.2 mmol/L SO2 (miguelangel) arterial 100 (H) 90 - 95 % Base Excess, POC -3.4 mmol/L HCO3, Art POC 21 20 - 30 mmol/L Hct, POC 29.0 (L) 41.4 - 51.6 % O2 Sat, Art POC (Calc) 100 % Total Hb, POC 9.8 (L) 13.8 - 17.2 g/dL POCT prothrombin time Collection Time: 06/23/20 1:47 PM Result Value Ref Range PT, POC 29.6 (H) 12.1 - 17.0 sec INR, POC 2.3 (H) 1.0 - 1.3 POCT platelet count and hematocrit Collection Time: 06/23/20 1:48 PM Result Value Ref Range Hematocrit POC 27.9 (L) 40.7 - 50.3 % Platelet POC Nicholls 144 140 - 440 K/cumm POCT Partial thromboplastin time (PTT) Collection Time: 06/23/20 1:48 PM Result Value Ref Range APTT, POC 32.1 29.3 - 45.4 sec Prepare plasma: 2 Units Collection Time: 06/23/20 2:26 PM Result Value Ref Range Product code W6437X88 Unit Number [id number] Product Blood Type APOS Dispense Status ISSUED Product code G0993H24 Unit Number [id number] Product Blood Type APOS Dispense Status ISSUED POC Blood Gas and Chemistries, Arterial - Collection Time: 06/23/20 3:02 PM Result Value Ref Range pH, Art POC 7.30 (L) 7.35 - 7.45 pCO2, Art POC 43 35 - 45 mmHg pO2, Art POC 228 (H) 83 - 108 mmHg Na, POC 144 135 - 145 mmol/L K POC 4.3 3.3 - 4.9 mmol/L Cl, POC 111 (H) 97 - 110 mmol/L Ionized Ca, POC 4.04 (L) 4.50 - 5.10 mg/dL Glucose, POC 169 70 - 199 mg/dL Lactate, POC 4.7 (Critical) 0.7 - 2.2 mmol/L SO2 (miguelangel) arterial 100 (H) 90 - 95 % Base Excess, POC -5.1 mmol/L HCO3, Art POC 21 20 - 30 mmol/L Hct, POC 23.0 (L) 41.4 - 51.6 % O2 Sat, Art POC (Calc) 100 % Total Hb, POC 7.6 (L) 13.8 - 17.2 g/dL POCT platelet count and hematocrit Collection Time: 06/23/20 3:07 PM Result Value Ref Range Hematocrit POC 21.6 (L) 40.7 - 50.3 % Platelet POC Nicholls 171 140 - 440 K/cumm aPTT Collection Time: 06/23/20 4:10 PM Result Value Ref Range aPTT 27 27 - 37 sec CBC without differential Collection Time: 06/23/20 4:10 PM Result Value Ref Range WBC 15.7 (H) 3.8 - 9.9 K/cumm Hgb 9.3 (L) 13.0 - 17.5 g/dL Hct 28.0 (L) 38.9 - 50.3 % Plt 136 (L) 150 - 400 K/cumm MPV 11.5 9.1 - 12.3 fL RBC 3.16 (L) 4.30 - 5.80 M/cumm MCV 88.6 81.3 - 96.4 fL MCH 29.4 27.1 - 33.3 pg MCHC 33.2 32.3 - 35.7 g/dL RDW CV 13.9 11.1 - 14.9 % RDW SD 45.2 35.7 - 48.1 fL NRBC abs 0.00 0.00 - 0.01 K/cumm Basic metabolic panel Collection Time: 06/23/20 4:10 PM Result Value Ref Range Sodium 144 135 - 145 mmol/L Potassium, pl 4.5 3.3 - 4.9 mmol/L Chloride 111 (H) 97 - 110 mmol/L CO2 21 (L) 22 - 32 mmol/L Anion gap 12 2 - 15 mmol/L BUN 17 8 - 25 mg/dL Creatinine 1.03 0.80 - 1.30 mg/dL Glucose 164 70 - 199 mg/dL Calcium 8.3 (L) 8.5 - 10.3 mg/dL Calcium, ionized Collection Time: 06/23/20 4:10 PM Result Value Ref Range Calcium, Ionized 4.44 (L) 4.50 - 5.10 mg/dL Potassium, whole blood Collection Time: 06/23/20 4:10 PM Result Value Ref Range Potassium, bld 4.2 3.3 - 4.9 mmol/L Magnesium Collection Time: 06/23/20 4:10 PM Result Value Ref Range Magnesium 2.5 1.4 - 2.5 mg/dL Phosphorus Collection Time: 06/23/20 4:10 PM Result Value Ref Range Phosphorus, pl 4.5 2.3 - 4.5 mg/dL Protime-INR Collection Time: 06/23/20 4:10 PM Result Value Ref Range PT 14.7 (H) 9.5 - 13.6 sec INR 1.3 (H) 0.9 - 1.2 Blood gas, arterial Collection Time: 06/23/20 4:10 PM Result Value Ref Range pH, Art 7.29 (L) 7.35 - 7.45 PCO2, Arterial 40 35 - 45 mmHg PO2, Arterial 188 (H) 83 - 108 mmHg HCO3 Art (Calculated) 20 20 - 30 mmol/L BE, art -7 mmol/L O2 Sat Art (Measured) 100 (H) 90 - 95 % Lactate, whole blood Collection Time: 06/23/20 4:10 PM Result Value Ref Range Lactate, bld 4.9 (Critical) 0.7 - 2.0 mmol/L Critical Result Callback Chemistry Collection Time: 06/23/20 4:10 PM Result Value Ref Range Date Notified 20200623 Time Notified 1655 TestName Lactate Whole Blood Called/Read Back Debbie Rossentials RN Called By AW POCT glucose Collection Time: 06/23/20 4:12 PM Result Value Ref Range Glucose, POC 170 70 - 199 mg/dL POCT glucose Collection Time: 06/23/20 4:47 PM Result Value Ref Range Glucose, POC 157 70 - 199 mg/dL POC Blood Gas and Chemistries, Arterial - Collection Time: 06/23/20 7:01 PM Result Value Ref Range pH, Art POC 7.38 7.35 - 7.45 pCO2, Art POC 36 35 - 45 mmHg pO2, Art POC 82 (L) 83 - 108 mmHg Na, POC 142 135 - 145 mmol/L K POC 4.9 3.3 - 4.9 mmol/L Cl, POC 108 97 - 110 mmol/L Ionized Ca, POC 4.68 4.50 - 5.10 mg/dL Glucose, POC 182 70 - 199 mg/dL Lactate, POC 4.4 (Critical) 0.7 - 2.2 mmol/L SO2 (miguelangel) arterial 99 (H) 90 - 95 % Base Excess, POC -3.3 mmol/L HCO3, Art POC 21 20 - 30 mmol/L Hct, POC 28.0 (L) 41.4 - 51.6 % O2 Sat, Art POC (Calc) 96 % Total Hb, POC 9.2 (L) 13.8 - 17.2 g/dL POCT glucose Collection Time: 06/23/20 8:59 PM Result Value Ref Range Glucose, POC 197 70 - 199 mg/dL Blood gas, arterial Collection Time: 06/23/20 9:01 PM Result Value Ref Range pH, Art 7.38 7.35 - 7.45 PCO2, Arterial 35 35 - 45 mmHg PO2, Arterial 117 (H) 83 - 108 mmHg HCO3 Art (Calculated) 21 20 - 30 mmol/L BE, art -4 mmol/L O2 Sat Art (Measured) 99 (H) 90 - 95 % Lactate, whole blood Collection Time: 06/23/20 9:01 PM Result Value Ref Range Lactate, bld 5.2 (Critical) 0.7 - 2.0 mmol/L Critical Result Callback Chemistry Collection Time: 06/23/20 9:01 PM Result Value Ref Range Date Notified 20200623 Time Notified 2111 TestName Lactate Whole Blood Called/Read Back [facility] RN Called By ajay POCT glucose Collection Time: 06/23/20 10:16 PM Result Value Ref Range Glucose, POC 175 70 - 199 mg/dL POCT glucose Collection Time: 06/23/20 11:21 PM Result Value Ref Range Glucose, POC 167 70 - 199 mg/dL POCT glucose Collection Time: 06/24/20 12:12 AM Result Value Ref Range Glucose, POC 158 70 - 199 mg/dL Rads XR Chest 1 View Result Date: 06/23/2020 Interval intubation. Median sternotomy wires are now in place. A right internal jugular central venous catheter is in place, with tip at the cavoatrial junction. A right internal jugular [place]-Preet catheter is in place, with tip in the right pulmonary artery. Bilateral thoracostomy tubes are in place. A mediastinal and a pericardial drain are in place. Aortic valve replacement is noted. Lung volumes are small with bibasilar atelectasis. No definite pleural effusion. No pneumothorax. Cardiomediastinal silhouette in keeping with post surgical changes. Dictated by: Joaquin Latham M.D. The radiology attending physician has personally reviewed this study, and had reviewed and/or edited this written report and agrees with it. Electronically signed by: Pipe Mercedes M.D. Assessment/Plan Active Problems: No Active Problems: There are no active problems currently on the Problem List. Please update the Problem List and refresh. Assessment and plan: Acute Postoperative Pain Expected postop pain following cardiac surgery. - Scheduled Tylenol and PRN Oxycodone, dilaudid ?? Myocardial Stunning CAD S/p AVR Post bypass SANDY w/ Normal biventricular function, aortic valve mean gradient 10 mmHg, mild MR, mildTR on Epi 0.03 mcg/kg/min Currently supported on epi at 0.02 mcg/kg/min Hemodynamics CI 3.33, MPAP ~1/3 systemic, SBP 150s. Lactate 4.9 Now s/p CABG. Post-op care to include: - Wean epi 0.01 Q6 for CI > 2.2 - lactate 5.2 @ 1999, received 500 mL LR bolus - EPM to VVI 60 back up - ASA supp within 6 hours if no signs of bleeding - Daily ASA and Statin starting today - Colace and Senna for bowel regimen - insulin gtt for glycemic control Q4 hrs - ADAT after extubation - GI ppx with H2 doni until extubated - SCDs for DVT ppx, start SQH if plts >100 - PT for decreased mobility when able to participate - Anticoagulation POD 1 per CtSx ?? Hypertension Hx of hypertension with home norvasc and metoprolol. - EPM to VVI 60 back up - Cardene for SBP < 140 - Maintain MAP > 65 - Hold home antihypertensives in recovery setting ?? Acute Respiratory Insufficiency, resolved Post-procedural short-term ventilator support with anticipated extubation. Pt sedated with propofolon arrival from OR. CXR: showed ETT and CVLs in good position, no sign of ptx or nisreen - extubated 06/23 - Pulmonary hygiene with IS, acapella, and C&DB after extubation - Wean supplemental O2 for SpO2 > 92% ?? Hx of GIB Diverticulosis Acute Blood Loss Anemia Hx of previous GIB with diverticulosis, most recently admitted in April. GIB resolved before surgery. Expected following cardiac surgery. Hgb 9.3. Hemodynamically stable off vasopressors. - No current indication for transfusion, consider if patient becomes hemodynamically unstable with increased pressor requirements or Hgb < 8 and symptomatic - CBC daily ?? Leukocytosis Likely inflammatory following procedure. WBC 15.7 - No current indication for culture, consider if temp > 38.5 - Continue periop antibiotics to completion Cosigned by Kenny Lewis MD at 06/24/2020 7:03 PM DISTRICT SUPERVISOR RICT SUPERVISOR RICT SUPERVISOR RICT SUPERVISOR documented in this encounter H&P Notes * Manuel Colorado, PRINT DECORATOR - 06/23/2020 4:[address] ICU History and Physical Shifts: NPP Shift Options: CCA Chief Complaint: Day of Surgery status post (06/23/20) AVR (25 mm Magna Ease) CABGx3 ([id number], SVG-PDA) HPI: Patient is a 74 YOM with a known hx of aortic stenosis who presents with progressively worsening fatigue. He denies chest pain, shortness of breath, orthopnea, or PND. LHC shows moderate 3 vessel CADwith lesions (50% proximal to mid LAD, 40-50% mid circ, 50-60% distal RCA). Pre-op TTE showed severe with mean gradient 51 mmHg, normal RV function, moderate LVH with LVEF 75%, and no other valvular abnormalities. PMH: HTN, HLD, Glaucoma, Hx of GI bleed with prior H.Pylori gastric ulcer and diverticulosis. Today (06/23) the pt was taken to the OR for an AVR (25 mm Magna Ease) CABGx3 ([id number], SVG-PDA) by Dr Chiu. He was reported to be an easy airway with grade I view on DL. He was given a totalof 2 PRBC, 2 FFP, 1 platelet, 750 mL albumin throughout the case. Intra op echo with evidence of Normal biventricular function, aortic valve mean gradient 10 mmHg, mild MR, mild TR on Epi 0.03 mcg/kg/min. He arrives to 5600 ICU intubated/sedated/hemodynamically stable on epi 0.03mcg/kg/min and propofol at 50 mcg/kg/min. Past Medical History: Diagnosis Date ??? Coronary [...] History: Procedure Laterality Date ??? CARDIAC CATHETERIZATION ??? COLONOSCOPY ??? MOHS SURGERY BCC behind right ear ??? UPPER GASTROINTESTINAL ENDOSCOPY Medications Prior to Admission Medication Sig Dispense Refill Last Dose ??? amLODIPine (NORVASC) 10 mg tablet Take 10 mg by mouth every morning 06/23/2020 at Unknown time ??? aspirin 81 mg enteric coated tablet Take 81 mg by mouth every morning 06/23/2020 at Unknown time ??? atorvastatin (LIPITOR) 10 mg tablet Take 10 mg by mouth every morning 06/22/2020 at Unknown time ??? metoprolol XL (TOPROL-XL) 25 mg extended release tablet Take 0.5 tablets (12.5 mg total) by mouth daily (Patient taking differently: Take 12.5 mg by mouth every morning ) 15 tablet 1 06/23/2020 atUnknown time ??? travoprost (TRAVATAN Z) 0.004 % drops Administer 1 drop into both eyes nightly 06/22/2020 at Unknown time ??? azelastine 0.15 % (205.5 mcg) spray,non-aerosol Administer 1 spray into each nostril daily as needed More than a month at Unknown time ??? benazepriL (LOTENSIN) 5 mg tablet Take 5 mg by mouth every morning 06/13/2020 ??? clobetasol (TEMOVATE) 0.05 % external solution Apply 1 application topically 2 (two) times a day as needed More than a month at Unknown time ??? montelukast (SINGULAIR) 10 mg tablet Take 10 mg by mouth nightly 06/20/2020 No Known Allergies Social History Tobacco Use ??? Smoking status: Never Smoker ??? Smokeless tobacco: Never Used Substance Use Topics ??? Alcohol use: Yes Comment: rare Family History Problem Relation Age of Onset ??? Arrhythmia Brother ??? Cancer Mother ??? Hypertension Mother ??? Heart disease Mother ??? Hypertension Brother ??? Heart attack Maternal Grandfather ??? Anesthesia problems Neg Hx ROS: As noted in HPI, pt immediately post op Objective Medications: Scheduled Meds:ceFAZolin, 2,000 mg, intravenous, Q8H docusate sodium, 100 mg, oral, BID Or docusate, 100 mg, feeding tube, BID famotidine, 20 mg, intravenous, Daily fentaNYL, , , fentaNYL, 100 mcg, intravenous, Once senna, 1 tablet, oral, BID Or senna, 8.8 mg, feeding tube, BID [START ON 06/24/2020] vancomycin, 1,000 mg, intravenous, Q24H LYRIC Continuous Infusions:EPINEPHrine, 0.02 mcg/kg/min, Last Rate: 0.02 mcg/kg/min (06/23/201599) insulin regular, 0-30 Units/hr, Last Rate: 2 Units/hr (06/23/201599) Lactated Ringer's, 50 mL/hr niCARdipine, 0.5-2.5 mcg/kg/min, Last Rate: 1 mcg/kg/min (06/23/20 1600) norepinephrine, 0.01-2 mcg/kg/min, Last Rate: Stopped (06/23/20 1540) propofol, 0-50 mcg/kg/min sodium chloride 0.9%, 1,000 mL sodium chloride 0.9%, 1,000 mL Most Recent Vitals: See Flow sheet Intake/Output Summary (Last 24 hours) at 06/23/2020 1606 Last data filed at 06/23/2020 1600 Gross per 24 hour Intake 1790.41 ml Output 765 ml Net 1025.41 ml Vent settings: Adult Vent Mode: Pressure regulated volume control/assist control FiO2 (%): 60 % S RR: 20 PEEP/CPAP/EPAP (cm H2O): 5 cm H20 Hemodynamic parameters: PAP: 33/17 (06/23 1599) CVP: 11 mmHg (06/23 1599) PCWP: -- CO: 7 L/min (06/23 1599) CI: 3.3 L/min/m2 (06/23 1599) SVO2: 69 % (06/23 1599) Pacemaker Overdrive Pacing: -- Cardiac Rhythm: Normal sinus rhythm (06/23 1599) Pacer Mode: -- Physical exam: Neuro: intubated/sedated/PERRL Cardiac: epicardial wires to AAI @ 90, NSR 75-80, RRR, S1/S2, periphery warm, pulses palpable distally Resp: orally intubated, lungs CTAB, PCT x1 without air leak GI: NPO, OGT to LIWS, abdomen round, soft, absent bowel sounds : lennon w/ clear yellow urine Skin: pink, warm, dry, midline sternotomy with OR dressing C/D/I, MCT x2 Lines: R IJ QLC, R IJ cordis/PAC, L Rad a-line Lab/Radiology/Diagnostic Review: Recent Labs Lab Units 06/23/20 1507 06/23/20 1502 06/23/20 1348 06/23/20 1344 06/23/20 1233 06/17/20 1641 WBC K/cumm -- -- -- -- -- 9.7 HEMOGLOBIN, POC g/dL -- 7.6* -- 9.8* 9.8* -- HEMOGLOBIN g/dL -- -- -- -- -- 15.0 HEMATOCRIT % -- -- -- -- -- 45.4 POC HEMATOCRIT % 21.6* -- 27.9* -- -- -- HEMATOCRIT POC % -- 23.0* -- 29.0* 29.0* -- PLATELETS K/cumm -- -- -- -- -- 274 Recent Labs Lab Units 06/23/20 1502 06/17/20 1641 SODIUM mmol/L -- 139 POTASSIUM PLASMA mmol/L -- 4.4 CHLORIDE mmol/L -- 104 CO2 mmol/L -- 28 ANIONGAP mmol/L -- 7 GLUCOSE mg/dL -- 114 POC GLUCOSE MONITOR mg/dL 169 -- BUN SERUM mg/dL -- 25 CREATININE mg/dL -- 1.31* CALCIUM mg/dL -- 10.2 ALBUMIN g/dL -- 5.0 ALK PHOS Units/L -- 77 ALT Units/L -- 21 AST Units/L -- 16 BILIRUBIN TOTAL mg/dL -- 0.5 Recent Labs Lab Units 06/17/20 1720 APTT sec 30 INR 1.1 Imaging: CXR personally reviewed-> Impression and Plan: Active problems/Diagnoses: Surgical procedure: AVR (25 mm Magna Ease) CABGx3 ([id number], SVG-PDA) Acute Postoperative Pain Myocardial Stunning CAD Hypertension Acute Respiratory Insufficiency Hx of GIB Diverticulosis Acute Blood Loss Anemia Leukocytosis S/p AVR Plans: Acute Postoperative Pain Expected postop pain following cardiac surgery. Currently sedated on propofol - PRN Fentanyl until extubated. - Scheduled Tylenol and PRN Oxycodone once able to take PO. 1745: Extubated, transitioned to sched APAP, prn oxy and dilaudid Myocardial Stunning CAD S/p AVR Post bypass SANDY w/ Normal biventricular function, aortic valve mean gradient 10 mmHg, mild MR, mildTR on Epi 0.03 mcg/kg/min Currently supported on epi at 0.03 mcg/kg/min Hemodynamics CI 3.33, MPAP ~1/3 systemic, SBP 150s. Lactate 4.9 Now s/p CABG. Post-op care to include: - Wean epi to 0.02 now and wean 0.01 Q6 for CI > 2.2 - Recheck lactate at 2000 - EPM to VVI 60 back up - ASA supp within 6 hours if no signs of bleeding - Daily ASA and Statin starting tomorrow morning - Colace and Senna for bowel regimen - SSI for glycemic control Q4 hrs - ADAT after extubation - GI ppx with H2 doni until extubated - SCDs for DVT ppx, start SQH tomorrow morning if plts >100 - PT for decreased mobility when able to participate - Anticoagulation POD 1 per CtSx Hypertension Hx of hypertension with home norvasc and metoprolol. - EPM to VVI 60 back up - Cardene for SBP < 140 - Maintain MAP > 65 - Hold home antihypertensives in recovery setting Acute Respiratory Insufficiency Post-procedural short-term ventilator support with anticipated extubation. Pt sedated with propofolon arrival from OR. CXR: showed ETT and CVLs in good position, no sign of ptx or nisreen - Plan to wean sedation for PSV trial with goal extubation if no signs of active bleeding and pt hemodynamically stable - Pulmonary hygiene with IS, acapella, and C&DB after extubation - Wean supplemental O2 for SpO2 > 92% Hx of GIB Diverticulosis Acute Blood Loss Anemia Hx of previous GIB with diverticulosis, most recently admitted in April. GIB resolved before surgery. Expected following cardiac surgery. Hgb 9.3. Hemodynamically stable off vasopressors. - No current indication for transfusion, consider if patient becomes hemodynamically unstable with increased pressor requirements or Hgb < 8 and symptomatic - CBC daily Leukocytosis Likely inflammatory following procedure. WBC 15.7 - No current indication for culture, consider if temp > 38.5 - Continue periop antibiotics to completion Assessment and plan has been reviewed with CT Surgery & ICU attending on 06/23/20. Efrain Colorado NP Cosigned by Kenny Lewis MD at 06/23/2020 9:59 PM DISTRICT SUPERVISOR RICT SUPERVISOR RICT SUPERVISOR * Felton Chiu MD - 06/23/2020 6:16 AM CST I have seen and examined Mr. Wagner and deem him acceptable risk for coronary artery bypass grafting and aortic valve replacement. Felton Chiu MD RICT SUPERVISOR Source Note - Jodi Cantu NP - 06/17/2020 4:28 PM DISTRICT SUPERVISOR Images from the original note were not included. [facility] Planning Preoperative Evaluation Record Evaluation type/location: [facility] Planned procedure site: [facility] (Pods 2/3/5/SOLICITING FREIGHT AGENT) Date: 06/17/20 Anesthesia Evaluation Nathan Wagner is a 74 y.o. male Procedure(s): CORONARY ARTERY BYPASS GRAFT WITH PUMP HARVEST - RADIAL ARTERY ENDOSCOPIC VESSEL HARVEST REPLACEMENT AORTIC VALVE Pre-Op Diagnosis Codes: * Coronary artery disease without angina pectoris, unspecified vessel or lesion type, unspecified whether [place] or transplanted heart [I25.10] * Aortic valve stenosis, etiology of cardiac valve disease unspecified [I35.0] HISTORY HPI Nathan Wagner, 74 year old male undergoing evaluation prior to CORONARY ARTERY BYPASS GRAFT WITH PUMP and REPLACEMENT AORTIC VALVE for Coronary artery disease without angina pectoris and Aortic valve stenosis. Past Medical History Information obtained from: patient and chart. Neurological Pertinent negatives: seizures; neuromuscular disease; CVA/stroke; TIA; CEA; ICA stenosis; dementia/mild cognitive impairment and carotid artery stent Cardiovascular + Hypertension Hypertension year diagnosed: . Typical systolic BP - 140 Typical diastolic BP -85 + Hyperlipidemia (on statin) + CAD + Systolic or diastolic dysfunction w/o CHF (TTE 03/2020- LVEF 75%) Diastolic dysfunction w/o CHF. Diastolic function: stage I - impaired relaxation LVEF: >70%. + Current valvular disease (TTE 03/2020- LENORA 0.5 cm2- trace AR) - - severe; + PAD/Aorta disease (CT TAVR 04/2020- mild to moderate calfications noted in the iliac and femoral arteries) - Pertinent negatives: IA ; CABG ; valve replacement; atrial fibrillation; arrhythmia; pacemaker/ICD;DVT/PE; negative for CHF; drug-eluting stent(s); bare metal stent(s) and coronary angioplasty Comments: Followed by ANDRE Ware/CRISTIAN Cards: Last OVN 04/27/2020 Per TTE 03/2020: Severe . LENORA 0.5cm2. Mean AV grad. 51mmHg, Peak AV grad 83mmHg. Respiratory Pertinent negatives: COPD; asthma; sleep apnea (NAHUN); no O2 use outside the hospital and non-smoker Comments: Per CT TAVR 05/03/20: Bilateral subcentimeter solid and groundglass pulmonary nodules Hepatic / Heme + History of anemia Pertinent negatives: liver disease; history of thrombocytopenia and history of Jasmine positive Gastrointestinal + GERD - PRN medication use only. Symptoms < 1x/week. Comments: GI bleed 2/2 H. Pylori ulcer (2014) and diverticulosis (04/2020) Renal / + Renal disease - CKD Pertinent negatives: dialysis and nephrolithiasis Musculoskeletal/Pain + Chronic pain (knees) + Osteoarthritis Pertinent negatives: headaches Endocrine / Other + Obesity (BMI >30) (BMI 30.68) + Cancer history- skin cancer only. 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 + Eye disorder - glaucoma. Pertinent negatives: diabetes mellitus; thyroid disease; rheumatological disease and transplanted organ Functional Capacity Functional capacity: 4-6 METs Comments: Patient able to ambulate 4 city blocks and 2 flights of stairs without significant SOB/CP. Review of Systems + previous transfusion (2014 following GI bleed 05/31 ulcer. Denies negative transfusion reaction hx.) + melena/hematochezia (hematochezia 04/2020 diverticulosis ) + chronic pain (knees) + vision loss (Corrective lenses) Pertinent negatives: productive cough; wheezing; SOB; recent cold/flu; fever; chest pain; palpitations; orthopnea; pedal edema; PND; transfusion reaction; easy bruising; bleeding problems; syncope; dizziness; muscle weakness; numbness/tingling; hard of hearing; nausea; dysphagia; diarrhea; dentures/ partials; chipped/loose teeth; abdominal pain and no unexpected weight change Comments: Denies UTI symptoms PAT Summary and Plans Cardiac risk classification of planned procedure: cardiac surgery. Preoperative assessment status: lab tests ordered. Initial preoperative evaluation discussed with: Lukas Ortiz MD Additional comments: Nathan Wagner is a 74 y.o. male who is being evaluated prior to undergoing a cardiac surgical procedure. Functional capacity is 4-6 METs. Obstructive sleep apnea (NAHUN) screening status is STOP-Bang=4 suggesting moderate risk for NAHUN, bicarbonate value pending. The patient is at elevated risk for obstructive sleep apnea (NAHUN) per STOP-BANG screening questionnaire results. Patient informed of the possibility that they have undiagnosed NAHUN, which may increase their risk for perioperative respiratory events. Patient also informed of the possible long-term health problems associated with NAHUN. Because we do not feel that preoperative NAHUN testing is likely to outweigh the downsides of delaying surgery, we have recommended that the patient talk to their primary doctor or other clinician after surgery about getting tested for NAHUN. The patient is on aspirin therapy and is scheduled for cardiac/vascular surgery where aspirin is routinely continued for periprocedural benefit. Patient's COVID19 status is: Unexposed. The patient currently has no concerning symptoms of COVID19. Plan for pre-procedure COVID19 testing: Surgery date within 4 days. Pre-procedure COVID19 testing performed at [facility]. Result pending- to be reviewed by surgeon's office. Blood bank needs for day of procedure: T&C 4 unit pRBCs Pending labs/tests include: CBC CMP T&S PT PTT Urinalysis flex CXR COVID-19 Preoperative evaluation performed by Romelia Keith NP on 06/17/20 at 4:46 PM.. Follow up note Labs reviewed and are without significant findings. Reviewed CXR From 06/17/2020 was reviewed and w/o any significant findings. Please see results belowfor further information. Surgeon's office reviews laboratory results independently. CPAP process complete. Follow-up completed by: Jodi Cantu NP on 06/20/20 at 10:04 AM Patient Active Problem List Diagnosis ??? Aortic valve stenosis ??? Sinus disease ??? Severe aortic stenosis ??? H pylori ulcer ??? History of blood transfusion ??? Hypertension, essential ??? Acute GI bleeding ??? HLD (hyperlipidemia) ??? Hematochezia ??? Coronary artery disease without angina pectoris Past Medical History: Diagnosis Date ??? Coronary [...] History: Procedure Laterality Date ??? CARDIAC CATHETERIZATION ??? COLONOSCOPY ??? MOHS SURGERY BCC behind right ear ??? UPPER GASTROINTESTINAL ENDOSCOPY No Known Allergies Med List Status: Nurse Complete Set By: Renetta Lee RN at 06/17/2020 4:16 PM Taking? Last Dose Start Date End Date Provider amLODIPine (NORVASC) 10 mg tablet 06/17/2020 -- -- Yasmeen Rodriguez MD aspirin 81 mg enteric coated tablet 06/17/2020 -- -- Yasmeen Rodriguez MD atorvastatin (LIPITOR) 10 mg tablet 06/17/2020 03/31/15 -- Yasmeen Rodriguez MD azelastine 0.15 % (205.5 mcg) spray,non-aerosol More than a month 04/02/16 -- Yasmeen Rodriguez MD benazepriL (LOTENSIN) 5 mg tablet Past Month -- -- Yasmeen Rodriguez MD Notes: 06/13/2020 stopped per doctor clobetasol (TEMOVATE) 0.05 % external solution Past Month 04/24/19 -- Yasmeen Rodriguez MD metoprolol XL (TOPROL-XL) 25 mg extended release tablet 06/17/2020 06/09/20 -- Felton Chiu MD Take 0.5 tablets (12.5 mg total) by mouth daily Patient taking differently: Take 12.5 mg by mouth every morning montelukast (SINGULAIR) 10 mg tablet 06/16/2020 04/02/16 -- Yasmeen Rodriguez MD travoprost (TRAVATAN Z) 0.004 % drops 06/16/2020 03/31/15 -- Yasmeen Rodriguez MD Current Outpatient Medications: ??? amLODIPine (NORVASC) 10 mg tablet ??? aspirin 81 mg enteric coated tablet ??? atorvastatin (LIPITOR) 10 mg tablet ??? benazepriL (LOTENSIN) 5 mg tablet ??? clobetasol (TEMOVATE) 0.05 % external solution ??? metoprolol XL (TOPROL-XL) 25 mg extended release tablet ??? montelukast (SINGULAIR) 10 mg tablet ??? travoprost (TRAVATAN Z) 0.004 % drops ??? azelastine 0.15 % (205.5 mcg) spray,non-aerosol Social History Tobacco Use Smoking Status Never Smoker Smokeless Tobacco Never Used Substance and Sexual Activity Alcohol Use Yes Comment: rare Substance and Sexual Activity Drug Use Not Currently Family History Problem Relation Age of Onset ??? Arrhythmia Brother ??? Cancer Mother ??? Hypertension Mother ??? Heart disease Mother ??? Hypertension Brother ??? Heart attack Maternal Grandfather ??? Anesthesia problems Neg Hx PAT Physical Exam Airway Exam: Mallampati: I Cervical ROM: FROM TM distance: normal Cardiovascular Exam: Rate: regular Rhythm: regular Murmur: grade III/ Negative for peripheral edema Pulmonary Exam: LCTA, bilat EENT Exam: trachea midline Dental Exam: Appears intact Skin Exam: Skin is warm and dry. Abdominal exam: Abdomen is soft. Bowel sounds are present. Current state: Patient's current state is cooperative and interactive. Vitals: 06/17/20 1620 06/17/20 1626 BP: 125/82 132/82 Pulse: 94 Resp: 18 SpO2: 98% Relevant diagnostics: ECG(s): 06/17/2020- NSR, 85 bpm 05/13/20: NSR Nonspecific ST abnormality HR 85 ?? 05/06/2019: SR HR 87 ?? TTE 04/11/2020 SUMMARY: Severe . LENORA 0.5cm2. Mean AV grad. 51mmHg, Peak AV grad 83mmHg. ??LA is normal. Normal RV cavity size. LV cavity size is normal. Moderate concentric LV hypertrophy. LVEF = 75%. Global longitudinal strain (GLS) =- 12.4% (abnormal). Normal Inferior vena cava. Normal aorta. Trace AR seen, No MR seen, no MS, normal TV, normal PV. Diastolic function: Impaired Relaxation. As compared to previous study 11-04-19, remains severe, LENORA and AV gradients are worse. ?? DOPPLER/COLOR FOLOW DOPPLER COMMENTS: Trace AR seen, No MR seen, severe , no MS, normal TV, normal PV. Diastolic function: Impaired Relaxation Peak AV velocity 4.5 m/s ?? Stress Echo 04/04/15 Resting Echo- Bicuspid aortic valve with reduced opening. Mild concentric LVH with normal systolic function (LV EF 70%). Normal RV size and function. - E/A reversal c/w impaired diastolic function. ?? Impression: Contrast enhancement was employed after initial imaging due to sub-optimal quality related to co-morbidity defined by patient's body habitus. maximal exercise stress echocardiogram, NEGATIVE for myocardial ischemia. ?? Cardiac catheterization: 06/07/20: DIAGNOSTIC IMPRESSION: 1. Severe three-vessel coronary artery disease with marked ischemia in all major vascular bed 2. Severe aortic stenosis 3. Right common femoral CELT THERAPEUTIC RECOMMENDATIONS: 1. Continue aggressive medical therapy and risk factor modification 2. Bedrest 2 hours post Celt closure 3. Patient has severe ischemia in all 3 coronary vessels. They would be amenable to PCI however themost likely would involve the left main. Given that he is low risk, has severe high gradient aorticstenosis, I would recommend surgical aortic valve replacement with a three-vessel coronary artery bypass grafting. He should have the LAD his obtuse marginal and his PDA bypass. 05/25/20: DIAGNOSTIC IMPRESSION: 1. Moderate coronary artery disease with lesions in the LAD, circumflex and right coronary artery 2. Severe aortic stenosis 3. TR Band right radial artery THERAPEUTIC RECOMMENDATIONS: 1. Continue aggressive medical therapy and risk factor modification 2. TR band per protocol 3. Patient has severe aortic stenosis is having symptoms that are mild consistent with his aortic valve as he does have moderate coronary artery disease. We will discuss further care and treatment. At this point I would favor medical management for his coronary artery disease and proceed with aortic valve replacement. PFT(s): 05/06/2019 FVC: Pre- 4.68, Ref- 4.09, 114% FEV1: Pre- 3.75, Ref- 3.08, 122% FEV1/FVC- Pre- 80%, Ref- 76% ?? IMPRESSION: There is no ventilatory defect. There is no impairment of alveolar gas exchange by DLCO. There is no impairment of O2 gas exchange at rest by ABG Other: 06/17/2020- CXR- IMPRESSION: No prior chest radiographs available for comparison. Heart size within normal limits. Tortuous thoracic aorta seen. ?? 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 The lungs are clear without focal consolidation or pulmonary edema. No pneumothorax or pleural effusion seen. ?? Probable nipple shadows seen projecting over both lower lungs. 05/03/20: CT TAVR IMPRESSION: 1. Severe aortic valvular stenosis. ?? 2. Aortic annulus, and abdominal aortic, common iliac, external iliac and femoral artery measurements in preparation for TAVR procedure as described above. ?? 2. Bilateral subcentimeter solid and groundglass pulmonary nodules. Follow-up CT scan in one year is recommended. Recommend follow up of the Incidental lung nodule Additional Imaging In [address] PT: No results found for requested labs within last 720 hours. INR: No results found for requested labs within last 720 hours. APTT: No results found for requested labs within last 720 hours. Hgb A1C: No results found for requested labs within last 720 hours. CBC RBC: 06/07/2020: 4.56 M/cumm RDW: No results found for requested labs within last 720 hours. MCHC: 06/07/2020: 34.4 g/dL MCH: 06/07/2020: 29.2 pg MCV: 06/07/2020: 84.9 fL Hct: 06/07/2020: 38.7 %* Hgb: 06/07/2020: 13.3 g/dL WBC: 06/07/2020: 6.1 K/cumm MPV: 06/07/2020: 11.8 fL Platelets: 06/07/2020: 209 K/cumm RDW CV: 06/07/2020: 13.6 % RDW Sd: 06/07/2020: 42.4 fL BMP Glucose: 06/06/2020: 104 mg/dL Calcium: 06/06/2020: 9.7 mg/dL Sodium: 06/06/2020: 143 mmol/L Potassium: 06/06/2020: 4.4 mmol/L CO2: 06/06/2020: 30 mmol/L Chloride: 06/06/2020: 106 mmol/L BUN: 06/06/2020: 22 mg/dL Creatinine: 06/06/2020: 1.37 mg/dL* STOP-Bang Total Score: 4 Adela index score: 100 AD8 Dementia Score: 0 Short Blessed Total Score: 0 RICT SUPERVISOR RICT SUPERVISOR RICT SUPERVISOR documented in this encounter Procedure Notes * Shana Alvarado NP - 06/27/2020 2:16 PM CST Procedures EPICARDIAL WIRE REMOVAL 06/27/2020 2:16 PM Performed by: MARLENE Andrews identified by checking arm-band and verifying birthdate. Epicardial wire removal location completed: [x] At bedside [] in treatment room Removed due to: [x] End of treatment [] Partial dislodgement Dicussed with: [x] Collaborating MD/Designee [] Attending MD [] Supervising Physician [] Emergent [] Non-Applicable Pre-removal site assessment reveals [x] no drainage [x] no hematoma [] other [] No bleeding Procedure Details Patient positioned [] supine with head of bed elevated [] supine with head of bed flat [] sitting in chair Wires Removed: [x] Atrial x 2 [x] Ventricular x 1 [] Atrial x 1 [] Ventricular x 2 [] Grounding x 1 [] Grounding x 2 Wire(s) removed from [x] substernal location [] below right thoracotomy incision Post-Procedure Details Post removal care includes [] site left open to air [x] non-occlusive dressing applied [x] positioned supine [] Head of bed left flat [x] RN notified of post removal care Instructions to patient include: [x] Head of bed may be elevated, but remain in bed for 2 hours [] Remain in chair for 2 hours [x] Vital signs checked every 1/2 hr x 2 hrs [] Report any symptoms of dizziness [] Patient verbalizes understanding of instructions [] Family verbalizes understanding of instructions [] Patient ventilated - non-verbally indicated understanding [] Patient unable to respond Nathan Wagner tolerated procedure well. RICT SUPERVISOR * Shana Alvarado NP - 06/26/2020 1:08 PM CST Procedures CHEST TUBE REMOVAL 06/26/2020 1:08 PM Performed by: Shana Alvarado NP Dicussed with: [x] Collaborating MD/Designee [] Attending MD [] Supervising Physician [] Emergent [] Non-Applicable Informed consent: Risks, benefits, alternatives discussed and patient/representative phlebotomy services/guardian agrees and accepts. Patient's stated name/ matches armband: Yes Imaging: Pertinent imaging reviewed, correctly oriented and match to patient identifiers Supplies, devices and special equipment are available: Yes Hand hygiene performed: Yes Chest tubes removed: [] Left Pleural [] Left Pleural anterior [] Left Pleural posterior []Right Pleural [] Right Pleural anterior [] Right Pleural posterior [] Mediastinal x1 [x] Mediastinal x 2 [] Left Pleuryx [] Right Pleuryx [] Left Pneumostat [] Right Pneumostat Removal Method: [x] Removed with Valsalva Maneuver [x] Sutures secured immediately after removal [][place] sutures removed [] No sutures present Instruction to patient after removal: [x] Activity as tolerated [] Report shortness of breath [x] Report excess drainage Patient verbalized understanding of these instructions. Occlusive dressing applied. Complications: [x] None [] Bleeding at removal site [] Shortness of breath Post procedure condition is stable. Post procedure follow up: [] portable chest x-ray ordered [x] 2 view AP & lateral Chest x-ray ordered Nathan Wagner tolerated this procedure well. RICT SUPERVISOR * Daniele Madrigal NP - 06/25/2020 1:20 PM CST Procedures CHEST TUBE REMOVAL 06/25/2020 1:20 PM Performed by: Daniele Madrigal NP Dicussed with: [] Collaborating MD/Designee [] Attending MD [x] Supervising Physician [] Emergent [] Non-Applicable Informed consent: Risks, benefits, alternatives discussed and patient/representative phlebotomy services/guardian agrees and accepts. Patient's stated name/ matches armband: Yes Imaging: Pertinent imaging reviewed, correctly oriented and match to patient identifiers Supplies, devices and special equipment are available: Yes Hand hygiene performed: Yes Chest tubes removed: [] Left Pleural [] Left Pleural anterior [] Left Pleural posterior []Right Pleural [x] Right Pleural anterior [] Right Pleural posterior [] Mediastinal x1 [] Mediastinal x 2 [] Left Pleuryx [] Right Pleuryx [] Left Pneumostat [] Right Pneumostat Removal Method: [x] Removed with Valsalva Maneuver [x] Sutures secured immediately after removal [x] [place] sutures removed [] No sutures present Instruction to patient after removal: [x] Activity as tolerated [x] Report shortness of breath [x] Report excess drainage Patient verbalized understanding of these instructions. Occlusive dressing applied. Complications: [x] None [] Bleeding at removal site [] Shortness of breath Post procedure condition is stable. Post procedure follow up: [] portable chest x-ray ordered [x] 2 view AP & lateral Chest x-ray ordered Nathan Wagner tolerated this procedure well. RICT SUPERVISOR * Manuel Colorado NP - 06/23/2020 4:59 PM CSTAssociated Order(s): Critical Care Post-Procedure Diagnose(s): Severe aortic stenosis Critical Care Performed by: Manuel Colorado NP Authorized by: Manuel Colorado NP CRITICAL CARE: Team: [facility] Shift: AM Level of Billing: Critical Care My time spent with this patient was 120 minutes: Critical Provider Statement: I have seen and examined the patient on this day of service. I have reviewed and confirmed the history, physical exam, laboratory and radiologic data as documented in thesigned ICU note. I have reviewed and discussed my treatment plan with the ICU team and other medical/strategic consultant staff, making frequent assessments and decisions regarding this patient's complex medical care. Critical Care time was exclusive of time spent performing separately billed procedures, treating other patients, and teaching. This time was in addition to and separate from critical care provided by other practitioners in my group on this day of service. Critical Care was necessary to treat or prevent imminent or life-threatening deterioration of the following conditions: Acute pain/acute postoperative pain Myocardial stunning Acute respiratory failure following procedure/surgery Acute blood loss anemia and Thrombocytopenia Leukocytosis This time was spent by me doing the following: Acute pain control Cardiac pacing, Initiation/active titration of inotropic medications and Initiation/active titration of vasoactive medications Active and frequent reassessment of respiratory status and oxygen requirements and Invasive ventilator management, reassessment, and titration Active and frequent monitoring of intake/output and volumen status Empiric broad coverage antibiotics I spent time reviewing and interpreting data from bedside monitors, laboratory results, and imaging, I spent time documenting in the medical record and I spent time discussing the management of this critically ill patient with consultants and the medical staff Cosigned by Kenny Lewis MD at 06/23/2020 10:01 PM DISTRICT SUPERVISOR RICT SUPERVISOR RICT SUPERVISOR documented in this encounter Nursing Notes * Ruiz Holder - 06/28/2020 5:19 PM CST IJ removed, IV removed, dressing changed on left arm, awaiting mobile pharmacy, discharge RICT SUPERVISOR * Felicia Castillo RN - 06/23/2020 3:45 PM CST Pt arrives to 5613 s/p MVR + CABGx2 via bed accompanied by anesthesia and CT surgery. Pt connected to ventilator by Respiratory Therapy. Critical hookups complete. See VS flowsheet and I/O flowsheet for drips infusing. Report given to bedside RN Debbie and MARLENE Zuniga. EICU aware. No further orders at this time. Pt arrives to 5613 s/p MVR + CABGx2. Heels floated, skin prep and allevyn to all bony prominences including coccyx. EPC to coccyx. All skin assessments including surgical sites noted in the Complex Assessment flowsheet. RICT SUPERVISOR documented in this encounter Miscellaneous Notes * Plan of Care - Ruiz Holder - 06/28/2020 2:59 PM CST Problem: Health Behavior: Goal: Understanding of discharge needs will improve Outcome: Progressing Goals: Clinical Goals for the Shift: VSS, bowel movement, discharge Summary: Clinical Goals for the Shift: VSS, bowel movement, discharge RICT SUPERVISOR * Plan of Care - Hair Wallace RN - 06/27/2020 10:58 PM CST Goals: Clinical Goals for the Shift: vss, heparin gtt therapeutic, monitor for bleeding, free from falls and injuries, BM today? Summary: patient is increasing in activity tolerance. Labs monitored. RICT SUPERVISOR * Plan of Care - Brisa Bahena RN - 06/27/2020 2:44 PM CST Goals: Clinical Goals for the Shift: vss, heparin gtt therapeutic, monitor for bleeding, free from falls and injuries, BM today? Summary: VSS, afebrile. Incisions clean and dry. Medicated for pain with relief obtained. I&O documented. No problems noted at present. RICT SUPERVISOR * Hospital Course - Shana Alvarado NP - 06/27/2020 1:39 PM CST Mr. Nathan Wagner is a 74 year [...] The patient was admitted for cardiac surgery. Mr. Wagner was taken to the operating [...] saphenous veinfrom right lower extremity by Dr. Chiu. The patient was taken to the intensive [...] lasting for approximately an Hour or less. Chest tu bes and pacing wires were discontinued without difficulty. The patient progressed as expected. Aggressive physical therapy and pulmonary toilet were initiated, diet was advanced as tolerated, and wounds remained clean, dry and intact. Because of the persistent brief episodes of AF, he was placed checo 30 day event monitor at discharge. The decision was made not to anticoagulate due to his recent diverticular bleed and history of H Pylori gastrointestinal bleeding. His hemoglobin was stable at discharge. The home health nurses will be monitoring his progress after he returns home. RICT SUPERVISOR RICT SUPERVISOR RICT SUPERVISOR RICT SUPERVISOR * Plan of Care - Hair Wallace RN - 06/26/2020 11:01 PM CST Problem: Health Behavior: Goal: Understanding of discharge needs will improve Outcome: Progressing Problem: Lack of Knowledge: Goal: Ability to state ways to decrease the risk of falls will improve Outcome: Progressing Problem: Safety: Goal: Will remain free from falls Outcome: Progressing Problem: Lack of Knowledge: Goal: Ability to develop a pain control plan will improve Outcome: Progressing Problem: Sensory: Goal: Ability to identify factors that increase the pain will improve Outcome: Progressing Problem: Cardiac: Goal: Ability to maintain an adequate cardiac output will improve Outcome: Progressing Problem: Cardiac: Goal: Hemodynamic stability will improve Outcome: Progressing Goals: Clinical Goals for the Shift: VSS, afebrile. Incisions clean and dry. Monitor I&O. Pain control. Summary: patient is increasing in activity tolerance. Labs monitored. RICT SUPERVISOR * Plan of Care - Brisa Bahena RN - 06/26/2020 5:04 PM CST Goals: Clinical Goals for the Shift: VSS, afebrile. Incisions clean and dry. Monitor I&O. Pain control. Summary: VSS, afebrile. Incisions clean and dry. Medicated for pain with relief obtained. I&O documented. No problems noted at present. RICT SUPERVISOR * Plan of Care - Evelina Rodriguez - 06/26/2020 5:01 PM CST Problem: Health Behavior: Goal: Understanding of discharge needs will improve Outcome: Progressing Problem: Lack of Knowledge: Goal: Ability to state ways to decrease the risk of falls will improve Outcome: Progressing Problem: Safety: Goal: Will remain free from falls Outcome: Progressing Goal: Will remain free from injury from falls Outcome: Progressing Goal: Will remain free from falls and injury in home environment Outcome: Progressing Problem: Lack of Knowledge: Goal: Ability to develop a pain control plan will improve Outcome: Progressing Problem: Medication: Goal: Satisfaction with pain management regimen will improve Outcome: Progressing Problem: Sensory: Goal: Ability to identify factors that increase the pain will improve Outcome: Progressing Goal: Pain level will decrease Outcome: Progressing Problem: Cardiac: Goal: Ability to maintain an adequate cardiac output will improve Outcome: Progressing Goal: Hemodynamic stability will improve Outcome: Progressing Problem: Lack of Knowledge: Goal: Ability to state signs and symptoms to report to health care provider will improve Outcome: Progressing Goal: Knowledge of the prescribed therapeutic regimen will improve Outcome: Progressing Goal: Mental status will improve Outcome: Progressing Problem: Activity: Goal: Mobility will improve Outcome: Progressing Problem: Lack of Knowledge: Goal: Understanding of ways to prevent future skin breakdown will improve Outcome: Progressing Goal: Ability to identify appropriate dietary choices will improve Outcome: Progressing Problem: Nutritional: Goal: Dietary intake will improve Outcome: Progressing Goal: Ability to maintain a balanced intake and output will improve Outcome: Progressing Problem: Skin Integrity: Goal: Risk for impaired skin integrity will decrease Outcome: Progressing Goal: Ability to demonstrate warm and dry skin will improve Outcome: Progressing Goal: Circulation will improve to fullest extent possible Outcome: Progressing Goals: Clinical Goals for the Shift: VSS, afebrile. Incisions clean and dry. Monitor I&O. Pain control. Summary: VSS, pt was afebrile, incisions are clean and dry. Monitored I&Os, chest tube pulled, pain was controlled (see MAR). RICT SUPERVISOR * Plan of [place] - Hair Wallace RN - 06/25/2020 10:11 PM CST Problem: Lack of Knowledge: Goal: Ability to state ways to decrease the risk of falls will improve Outcome: Progressing Problem: Safety: Goal: Will remain free from falls Outcome: Progressing Problem: Safety: Goal: Will remain free from injury from falls Outcome: Progressing Problem: Lack of Knowledge: Goal: Ability to develop a pain control plan will improve Outcome: Progressing Problem: Cardiac: Goal: Ability to maintain an adequate cardiac output will improve Outcome: Progressing Problem: Cardiac: Goal: Hemodynamic stability will improve Outcome: Progressing Goals: Clinical Goals for the Shift: VSS, afebrile. Incisions clean and dry. Pain control. Monitor I&O. Labs as ordered. Summary: patient is increasing in activity tolerance. Labs monitored. RICT SUPERVISOR * Plan of Care - Brisa Bahena RN - 06/25/2020 5:56 PM CST Goals: Clinical Goals for the Shift: VSS, afebrile. Incisions clean and dry. Pain control. Monitor I&O. Labs as ordered. Summary: VSS, afebrile. Incisions clean and dry. Medicated for pain with relief obtained. I&O documented. Labs and CXR completed. RICT SUPERVISOR * Assessment & Plan Note - Daniele Madrigal NP - 06/25/2020 9:18 AM DISTRICT SUPERVISOR Associated Problem(s): Atrial fibrillation (CMS/HCC) (HCC) Developed A fib with RVR 06/25 Rx: [...] stable Monitor on telemetry until monitor placed RICT SUPERVISOR RICT SUPERVISOR RICT SUPERVISOR RICT SUPERVISOR * Assessment & Plan Note - Daniele Madrigal NP - 06/25/2020 9:15 AM DISTRICT SUPERVISOR Associated Problem(s): Acute postoperative anemia due to expected blood loss Expected finding s/p CABG, AVR Monitor CBC daily Transfused 1 unit PRBCs on 06/25 for H&H 6.5/20 Today 7.6, will follow with daily CBCs Hx of colonic and GI bleeds (H Pylori) Added FeSo4 Guaiac all specimens-continue bid PPI RICT SUPERVISOR RICT SUPERVISOR RICT SUPERVISOR RICT SUPERVISOR * Assessment & Plan Note - Daniele Madrigal NP - 06/25/2020 9:13 AM DISTRICT SUPERVISOR Associated Problem(s): Coronary artery disease without angina pectoris S/p CABG x 3 as L radial-OM, SVG-PDA also 06/23 Continue ASA, Statin, beta doni. Increase BB as tolerated Left RA hand with improved Mobility today, incision OK. Using ball and ROM exercises RICT SUPERVISOR RICT SUPERVISOR RICT SUPERVISOR * Assessment & Plan Note - Daniele Madrigal NP - 06/25/2020 9:13 AM DISTRICT SUPERVISOR Associated Problem(s): Hypertension, essential VS q 4 hrs Continue Metoprolol Increased dose to 12.5 BID yesterday RICT SUPERVISOR RICT SUPERVISOR RICT SUPERVISOR * Assessment & Plan Note - Daniele Madrigal NP - 06/25/2020 9:12 AM DISTRICT SUPERVISOR Associated Problem(s): HLD (hyperlipidemia) Continue Atorvastatin Low fat diet RICT SUPERVISOR * Assessment & Plan Note - Daniele Madrigal NP - 06/25/2020 9:10 AM DISTRICT SUPERVISOR Associated Problem(s): Aortic valve stenosis S/p AVR (25 mm Magna ease) 06/[address] and [place] out Hep gtt off, holding coumadin due to high risk GI bleed and recent diverticular bleed Wires out RICT SUPERVISOR RICT SUPERVISOR RICT SUPERVISOR RICT SUPERVISOR * Plan of Care - Hair Wallace RN - 06/24/2020 10:17 PM CST Problem: Health Behavior: Goal: Understanding of discharge needs will improve Outcome: Progressing Problem: Lack of Knowledge: Goal: Ability to state ways to decrease the risk of falls will improve Outcome: Progressing Problem: Safety: Goal: Will remain free from falls Outcome: Progressing Problem: Safety: Goal: Will remain free from falls and injury in home environment Outcome: Progressing Problem: Lack of Knowledge: Goal: Ability to develop a pain control plan will improve Outcome: Progressing Problem: Cardiac: Goal: Hemodynamic stability will improve Outcome: Progressing Goals: Clinical Goals for the Shift: VSS, control pain, sleep hygeine Summary:patient is increasing tin activity tolerance. Labs monitored. RICT SUPERVISOR * Provider Query - Felton Chiu MD - 06/24/2020 10:24 AM CST Clinical Indicators/Treatments: Ref. Range 06/23/2020 16:10 06/23/2020 21:01 06/24/2020 02:04 Lactate, bld Latest Ref Range: 0.7 - 2.0 mmol/L 4.9 (Critical) 5.2 (Critical) 3.3 (H) Ref. Range 06/23/2020 11:35 06/23/2020 12:33 06/23/2020 13:44 06/23/2020 15:02 06/23/2020 19:01 Lactate, POC Latest Ref Range: 0.7 - 2.2 mmol/L 2.2 2.1 4.0 (Critical) 4.7 (Critical) 4.4 (Critical) Ref. Range 06/23/2020 15:02 06/23/2020 16:10 06/23/2020 19:01 06/23/2020 21:01 06/24/2020 02:04 pH, Art Latest Ref Range: 7.35 - 7.45 7.30 (L) 7.29 (L) 7.38 7.38 PCO2 Latest Ref Range: 35 - 45 mmHg 43 36 PCO2, Arterial Latest Ref Range: 35 - 45 mmHg 40 35 06/23 CT ICU H/P : Hemodynamics CI 3.33, MPAP ~1/3 systemic, SBP 150s. Lactate 4.9. Recheck lactate at 06/24 CT ICU : lactate 5.2 @ 1999, received 500 mL LR bolus Specify a diagnosis that accurately reflects the lab findings, and document in the medical record and on the form below. ___Lactic acidosis ___Abnormal laboratory findings, inconclusive diagnosis ___Clinically insignificant abnormal laboratory findings ___Other, specify below ___Clinically unable to determine Additional Provider Response: Lactic acidosis Use of terms such as likely, suspected, possible, or probable (associated with a specific diagnosisthat is being evaluated, monitored, or treated as if it exists) are acceptable and can be coded in the inpatient setting when documented at the time of discharge. This documentation will become part of the patient???s medical record. Sincerely, Judith José Health Information Management RICT SUPERVISOR * Provider Query - Felton Chiu MD - 06/24/2020 10:17 AM CST Clinical Indicators/Treatments: 06/24 CT ICU : Myocardial stunning : Post bypass SANDY w/ Normal biventricular function, aortic valve mean gradient 10 mmHg, mild MR, mild TR on Epi 0.03 mcg/kg/min Hemodynamics CI 3.33, MPAP ~1/3 systemic, SBP 150s. Lactate 4.9 Lactate 5.2 @ 2000, received 500 mL LR bolus Wean epi 0.01 Q6 for CI > 2.2 Specify the diagnosis, after study, that best reflects the clinical condition being monitored, evaluated, or treated. Document in the medical record and on the form below. Myocardial stunning was documented in the postoperative period. Please clarify the diagnosis of postoperative myocardial stunning. ___Postprocedural cardiac insufficiency following cardiac surgery. ___Expected cardiac response inherent to the cardiac surgery ___Myocardial stunning due to underlying heart disease -specify below ___ Other, specify below ___Clinically unable to determine Additional Provider Response: Expected cardiac response inherent to cardiac surgery Use of terms such as likely, suspected, possible, or probable (associated with a specific diagnosisthat is being evaluated, monitored, or treated as if it exists) are acceptable and can be coded in the inpatient setting when documented at the time of discharge. This documentation will become part of the patient???s medical record. Sincerely, Judith José Health Information Management RICT SUPERVISOR * Plan of Care - Fredyd Haynes RN - 06/24/2020 9:22 AM CST Problem: Safety: Goal: Will remain free from falls Outcome: Progressing Goal: Will remain free from injury from falls Outcome: Progressing Problem: Medication: Goal: Satisfaction with pain management regimen will improve Outcome: Progressing Problem: Sensory: Goal: Ability to identify factors that increase the pain will improve Outcome: Progressing Problem: Cardiac: Goal: Ability to maintain an adequate cardiac output will improve Outcome: Progressing Goal: Hemodynamic stability will improve Outcome: Progressing Problem: Activity: Goal: Mobility will improve Outcome: Progressing Problem: Skin Integrity: Goal: Risk for impaired skin integrity will decrease Outcome: Progressing Goals: Clinical Goals for the Shift: VSS, control pain, sleep hygeine Summary: RICT SUPERVISOR * Plan of Care - Manuela Dupont RN - 06/24/2020 5:06 AM CST Goals: Clinical Goals for the Shift: VSS, control pain, sleep hygeine Summary: VSS, room air, 1L of LR given, pain controled, rested well over night Problem: Health Behavior: Goal: Understanding of discharge needs will improve Outcome: Progressing Problem: Lack of Knowledge: Goal: Ability to state ways to decrease the risk of falls will improve Outcome: Progressing Problem: Safety: Goal: Will remain free from falls Outcome: Progressing Goal: Will remain free from injury from falls Outcome: Progressing Goal: Will remain free from falls and injury in home environment Outcome: Progressing Problem: Lack of Knowledge: Goal: Ability to develop a pain control plan will improve Outcome: Progressing Problem: Medication: Goal: Satisfaction with pain management regimen will improve Outcome: Progressing Problem: Sensory: Goal: Ability to identify factors that increase the pain will improve Outcome: Progressing Goal: Pain level will decrease Outcome: Progressing Problem: Cardiac: Goal: Ability to maintain an adequate cardiac output will improve Outcome: Progressing Goal: Hemodynamic stability will improve Outcome: Progressing Problem: Lack of Knowledge: Goal: Ability to state signs and symptoms to report to health care provider will improve Outcome: Progressing Goal: Knowledge of the prescribed therapeutic regimen will improve Outcome: Progressing Goal: Mental status will improve Outcome: Progressing Problem: Activity: Goal: Mobility will improve Outcome: Progressing Problem: Lack of Knowledge: Goal: Understanding of ways to prevent future skin breakdown will improve Outcome: Progressing Goal: Ability to identify appropriate dietary choices will improve Outcome: Progressing Problem: Nutritional: Goal: Dietary intake will improve Outcome: Progressing Goal: Ability to maintain a balanced intake and output will improve Outcome: Progressing Problem: Skin Integrity: Goal: Risk for impaired skin integrity will decrease Outcome: Progressing Goal: Ability to demonstrate warm and dry skin will improve Outcome: Progressing Goal: Circulation will improve to fullest extent possible Outcome: Progressing RICT SUPERVISOR * Plan of [place] - Debbie Guadalupe RN - 06/23/2020 5:13 PM CST Problem: Health Behavior: Goal: Understanding of discharge needs will improve Outcome: Progressing Problem: Lack of Knowledge: Goal: Ability to state ways to decrease the risk of falls will improve Outcome: Progressing Problem: Safety: Goal: Will remain free from falls Outcome: Progressing Goal: Will remain free from injury from falls Outcome: Progressing Goal: Will remain free from falls and injury in home environment Outcome: Progressing Problem: Safety: Goal: Will remain free from injury from falls Outcome: Progressing Problem: Lack of Knowledge: Goal: Ability to develop a pain control plan will improve Outcome: Progressing Problem: Lack of Knowledge: Goal: Ability to develop a pain control plan will improve Outcome: Progressing Problem: Safety: Goal: Will remain free from injury from falls Outcome: Progressing Problem: Medication: Goal: Satisfaction with pain management regimen will improve Outcome: Progressing Problem: Sensory: Goal: Ability to identify factors that increase the pain will improve Outcome: Progressing Goal: Pain level will decrease Outcome: Progressing Problem: Cardiac: Goal: Ability to maintain an adequate cardiac output will improve Outcome: Progressing Goal: Hemodynamic stability will improve Outcome: Progressing Problem: Cardiac: Goal: Ability to maintain an adequate cardiac output will improve Outcome: Progressing Problem: Lack of Knowledge: Goal: Ability to state signs and symptoms to report to health care provider will improve Outcome: Progressing Goal: Knowledge of the prescribed therapeutic regimen will improve Outcome: Progressing Goal: Mental status will improve Outcome: Progressing Problem: Lack of Knowledge: Goal: Ability to state signs and symptoms to report to health care provider will improve Outcome: Progressing Goals: Clinical Goals for the Shift: wean to extubate Summary: pt weaning to extubate, remains hemodynamically stable, pain controlled with PRN fentanyl,family remains at bedside RICT SUPERVISOR * Op Note - Felton Chiu MD - 06/23/2020 8:28 AM CST DATE OF SURGERY: 06/24/2020 SURGEON Felton Chiu MD FIRST HOUSEKEEPING ROOM INSPECTOR Masha Hollingsworth MD PREOPERATIVE DIAGNOSIS Significant multivessel coronary artery stenosis Severe aortic stenosis POSTOPERATIVE DIAGNOSIS As above NAME OF OPERATION Aortic valve replacement (25mm Magna Ease bioprosthetic valve), coronary artery bypass grafting x 3(radial sequenced to left anterior descending coronary artery and circumflex obtuse marginal branch, saphenous vein graft to the posterior descending coronary artery, open harvest of left radial artery, endoscopic harvesting of saphenous vein from right lower extremity INDICATIONS FOR PROCEDURE Mr. Nathan Wagner is a 74 year [...] history of GI bleed (recent diverticular bleed). After reviewing the above information, I had an extensive discussion with the patient regarding surgical revascularization and aortic valve replacemetn. He understood the risks and benefits of the procedure and wished to proceed with surgery. FINDINGS Aortic valve: heavily calcified annulus, trileaflet 25mm Magna Ease valve implanted No perivalvular insufficiency Unable to obtain mean gradient, epi 0.03 mcg/kg/min Targets: OM: 2mm, intramyocardial LAD: 2mm, mid, calcified proximally, just beyond intramyocardial segment PDA: 1.75mm Flows: Radial-LAD/OM: 150mL/min, PI 2 SVG-PDA: 60mL/min, PI 1.8 Of note, during creation of DOS SANTOS/radial t-graft, marginal flow to distal vessel - elected to use free radial graft. Unclear if intimal injury? DOS SANTOS was in two segments and neither was long enough to use individually DESCRIPTION After informed consent was obtained, the patient was brought to the operating room and laid supine on the table. General anesthesia via endotracheal intubation was administered. Invasive monitoring lines, including a [place] Preet catheter and a transesophageal echo probe were placed by anesthesia. Once the patient was prepped and draped in a sterile field, Vancomycin and Ancef were administered for surgical prophylaxis and written to be discontinued within 48 hours. An incision was made over the radial pulse from the wrist to the antecubital fossa of the left upper extremity. A pedicled radial artery was harvested with the use of bipolar cautery and the larger side branches were tied. Following its removal, the wound was irrigated with antibiotic solution and closed with absorbable suture in layers over a Chris-Contreras drain. An incision was made on the right lower extremity for endoscopic harvesting saphenous vein. Following its removal, the wound was irrigated with antibiotic solution and closed with absorbable suture in layers over a Chris-Contreras drain. Simultaneously, a median sternotomy was performed. The left pleural space was pushed back. A pedicled left internal mammary artery was harvested. After full- dose IV heparin was administered, the JOLIE was ligated from the chest wall. Next, papaverine was injected into the vessel and it was wrapped in a papaverine- soaked sponge with a bulldog at its tip and placedin the left chest. The pericardium was opened and the heart was suspended in a pericardial cradle. An aortic cannula placed into the ascending aorta and 3-stage venous cannula was placed into the right atrium. A retrograde cannula was placed into the coronary sinus via pursestring in the right atrium. We then cleared the accompanying veins of the mid DOS SANTOS graft. We then performed an end to side anastomosis between the DOS SANTOS and left radial artery using running 7-0 prolene. As noted above, the flow was marginal. We elected to ligated the DOS SANTOS and use the free radial as a sequential graft. After adequate ACT level was achieved, the prime was taken and cardiopulmonary bypass was begun andthe patient was cooled to 34 degrees Celsius. A thermistor was placed to measure myocardial temperature in the intraventricular septum. The space between the aorta and PA were dissected. Next, we identified our targets. They are described above. The aorta was crossclamped and cold blood cardioplegia was infused in an antegrade fashion to the aortic root. After approximately 750 L, we switched to retrograde delivery until the heart temperature reached 11 degrees Celsius and we had no electrical activity. After initial arrest, cardioplegia was given at regular intervals in a retrograde fashion throughout the case for myocardial protection. We then opened the aorta with an 11 blade and carried the incision down towards the noncoronary cusp with Metzenbaum scissors. Pericardial retraction stitches were placed at the cut edges and placed on snaps. The valve was trileaflet. An up biting clamp was used to grasp the leaflets and Metzenbaumscissors were used to cut out the leaflets. The valve was sized to a 25mm Magna Ease bioprosthetic valve. Next, horizontal mattress sutures using 2-0 ethibond on an SH2 needle were placed circumferentially around the annulus from aorta to ventricle. A 25mm valve was implanted. A total of 15 sutureswere then brought through the sewing ring of the valve and secured with a cor knot device. Both coronary ostia were well above the level of the valve and were visible after implantation. The aorta was then closed using running 4-0 prolene in 2 layers from both ends after filling to heart in attempts to de-air. We placed the aortic root vent under direct visualization. The first distal vessel grafted was the circumflex obtuse marginal branch. The size and quality of the vessel was good and the conduit was the distal end of the radial artery. The anastomosis was performed in an end-to-side fashion using a running 7-0 Prolene. The second distal vessel grafted was the left anterior descending coronary artery. The size and quality of the vessel was good. It was buried under a lot of epicardial fat. The conduit was the mid radial artery. The anastomosis was performed in a side to side fashion using running 7-0 Prolene. The proximal radial artery anastomosis to the aorta (using 4mm punch) was performed in an end to side fashion using running 5-0 Prolene. The third distal vessel grafted was the posterior descending coronary artery. The conduit was saphenous vein. The anastomosis was performed in an end-to-side fashion using a running 7-0 Prolene. The patient was placed in steep Trendelenburg. The aorta was unclamped and the patient was fully rewarmed. During the rewarming process, the ascending aorta was continuously vented. The anastomoses were carefully inspected for hemostasis. Epicardial ventricular wires were placed on the inferior surface of the right ventricle and brought out through the left of the sternotomy wound. The retrogradecannula was then removed. Atrial pacing wires were placed at the site of the retrograde cannula andnear the base of the venous cannula and brought out percutaneously to the right side of the wound. Once the patient was rewarmed, the heart was filled and examined with transesophageal echocardiograph y. There was good function. There was no evidence of intraventricular air. The ascending aortic root vent was then removed. The patient was weaned from cardiopulmonary bypass with the aid of low doseepinephrine. The venous and arterial cannulas were removed. Once the patient was hemodynamically stable, protamine was administered to reverse heparin. Doppler was used to confirm flows. Three drainage tubes were placed, one in the right pleural space, one along the diaphragmatic surface and one anteriorly in the mediastinum and were brought out percutaneously below the sternotomy. The tubes were anchored to the skin with heavy silk sutures and connected to closed suction drainage system. The sternum was reapproximated with heavy wires. The skin and subcutaneous tissues were vigorously irrigated with antibiotic solution and closed using absorbable sutures in layers. A sterile dressing was then applied. No DVT prophylaxis was given as it is not indicated for cardiac surgical procedures. TOTAL CARDIOPULMONARY BYPASS TIME 2 hours 14 minutes CROSS-CLAMP TIME 1 hour 44 minutes SPONGE, INSTRUMENT AND NEEDLE COUNTS All counts were correct. CONDITION ON DISCHARGE FROM THE OPERATING ROOM The patient was transferred to the surgical intensive care unit in stable condition on epinephrine infusion. PRESENCE STATEMENT I was present for the critical portions of the case from harvesting of the left internal mammary artery to chest closure and was immediately available at all other times. RICT SUPERVISOR * Brief Op Note - Masha Hollingsworth MD - 06/23/2020 8:28 AM CST kacOperative Progress Note Surgical Team: Surgeon(s) and Role: * Felton Chiu MD - Primary * Masha Hollingsworth MD - Fellow Anesthesiologist: Bashir Meadows MD; Barb Washington MD GUM REMOVER: Shelbi Waldrop CRNA Inspector Precision: Jacobo Ruff MD Student Nurse Desk Interviewer: Leyda Saeed RN Window Maker: Alin Dolan CCP; Gris Melo CCP; Donald Miller CCP Form Setter Helper: Mercedes Dunham RN; Sherri Infante RN; Tamara Hussein RN Scrub: Batool Mcdowell RN; Warren Palumbo RN Beet Topper: Shaina Linares ST Photographer Motion Picture: Polly Heredia SA REINSURANCE CLAIMS ANALYST: Jen Barfield RN; Le Daniel RN; Hien Dick CRNFA Form Setter Helper Second: Lori Wiley RN DATE OF SURGERY : 06/23/2020 Preoperative Diagnosis: Pre-op Diagnosis * Coronary artery disease without angina pectoris, unspecified vessel or lesion type, unspecified whether [place] or transplanted heart [I25.10] * Aortic valve stenosis, etiology of cardiac valve disease unspecified [I35.0] Postoperative Diagnosis: Post-op Diagnosis * Coronary artery disease without angina pectoris, unspecified vessel or lesion type, unspecified whether [place] or transplanted heart [I25.10] * Aortic valve stenosis, etiology of cardiac valve disease unspecified [I35.0] Procedure(s): Procedure(s) (LRB): CORONARY ARTERY BYPASS GRAFT WITH PUMPx3 (N/A) HARVEST - RADIAL ARTERY (Left) ENDOSCOPIC VESSEL HARVEST (N/A) REPLACEMENT AORTIC VALVE (N/A) Operative Findings: 3V CABG, radial to LAD +OM, vein to PDA, AVR with 25mm magna ease This was a pump case. Please see anesthesia and profusion records for fluids, blood loss, and transfusion. Specimens: No specimen collected in procedure Implants: Implant Name Type Inv. Item Serial No. Skiver Hand Lot No. LRB No. Used Action [employer] [id number] DANIE-[place] PERIMOUNT MAGNA EASE THERMAFIX 25MM - [id number] - [id number] [employer] [id number] Danie-muhammad Perimount Magna Ease Thermafix [id number] [employer] 1 Implanted Complications: None Condition on Discharge from the operating room was stable Masha Hollingsworth MD Date: 06/23/2020 Time: 3:10 PM TEACHING ATTESTATION : I was present and directly participated in the entire procedure (including opening and closing). Cosigned by Felton Chiu MD at 06/24/2020 1:42 PM DISTRICT SUPERVISOR RICT SUPERVISOR RICT SUPERVISOR documented in this encounter Plan of Treatment Not on file documented as of this encounter Procedures Procedure Name Priority Date/Time Associated Diagnosis Comments EVENT MONITOR Routine 06/28/2020 3:21 PM DISTRICT SUPERVISOR ECG 12-LEAD Routine 06/28/2020 6:07 AM DISTRICT SUPERVISOR CBC WITHOUT DIFFERENTIAL Routine 021 8:21 PM DISTRICT SUPERVISOR BASIC METABOLIC PANEL Routine 06/27/2020 8:21 PM DISTRICT SUPERVISOR ECG 12-LEAD Routine 06/27/2020 5:28 AM DISTRICT SUPERVISOR APTT STAT 06/27/2020 5:20 AM DISTRICT SUPERVISOR APTT STAT 06/27/2020 12:41 AM DISTRICT SUPERVISOR CBC WITHOUT DIFFERENTIAL Routine 021 11:50 PM DISTRICT SUPERVISOR MAGNESIUM Routine 06/26/2020 11:50 PM DISTRICT SUPERVISOR BASIC METABOLIC PANEL Routine 06/26/2020 11:50 PM DISTRICT SUPERVISOR XR CHEST PA LATERAL 2 VIEWS IP Routine 06/26/2020 2:31 PM DISTRICT SUPERVISOR ECG 12-LEAD Routine 06/26/2020 4:14 AM DISTRICT SUPERVISOR CBC WITHOUT DIFFERENTIAL STAT 021 11:01 PM DISTRICT SUPERVISOR BASIC METABOLIC PANEL STAT 06/25/2020 11:01 PM DISTRICT SUPERVISOR XR CHEST PA LATERAL 2 VIEWS IP Routine 06/25/2020 3:24 PM DISTRICT SUPERVISOR ECG 12-LEAD Routine 06/25/2020 1:22 PM DISTRICT SUPERVISOR CBC WITHOUT DIFFERENTIAL Timed 021 12:20 PM DISTRICT SUPERVISOR TRANSFUSE RED BLOOD CELLS Timed 06/25/2020 6:08 AM DISTRICT SUPERVISOR ECG 12-LEAD Routine 06/25/2020 5:26 AM DISTRICT SUPERVISOR PREPARE RBC Timed 06/25/2020 4:42 AM DISTRICT SUPERVISOR CBC WITHOUT DIFFERENTIAL Timed 021 4:02 AM DISTRICT SUPERVISOR TYPE AND SCREEN Timed 06/25/2020 4:02 AM DISTRICT SUPERVISOR CBC WITHOUT DIFFERENTIAL Routine 021 9:04 PM DISTRICT SUPERVISOR MAGNESIUM Routine 06/24/2020 9:04 PM DISTRICT SUPERVISOR BASIC METABOLIC PANEL Routine 06/24/2020 9:04 PM DISTRICT SUPERVISOR CBC WITHOUT DIFFERENTIAL Timed 021 11:27 AM DISTRICT SUPERVISOR POCT GLUCOSE DEVICE Routine 06/24/2020 11:26 AM DISTRICT SUPERVISOR BASIC METABOLIC PANEL Timed 06/24/2020 11:26 AM DISTRICT SUPERVISOR POCT GLUCOSE DEVICE Routine 06/24/2020 8 :08 AM DISTRICT SUPERVISOR POCT GLUCOSE DEVICE Routine 06/24/2020 6 :18 AM DISTRICT SUPERVISOR POCT GLUCOSE DEVICE Routine 06/24/2020 5 :29 AM DISTRICT SUPERVISOR POCT GLUCOSE DEVICE Routine 06/24/2020 4 :31 AM DISTRICT SUPERVISOR POCT GLUCOSE DEVICE Routine 06/24/2020 2 :20 AM DISTRICT SUPERVISOR OXYHEMOGLOBIN, PULMONARY ARTERY STAT 06/24/2020 2:04 AM DISTRICT SUPERVISOR POTASSIUM, WHOLE BLOOD STAT 2:04 AM DISTRICT SUPERVISOR CALCIUM, IONIZED Routine 06/24/2020 2:04 AM DISTRICT SUPERVISOR LACTATE, WHOLE BLOOD Routine 06/24/2020 2:04 AM DISTRICT SUPERVISOR CBC WITHOUT DIFFERENTIAL Routine 021 2:04 AM DISTRICT SUPERVISOR PHOSPHORUS Routine 06/24/2020 2:04 AM DISTRICT SUPERVISOR MAGNESIUM Routine 06/24/2020 2:04 AM DISTRICT SUPERVISOR BASIC METABOLIC PANEL Routine 06/24/2020 2:04 AM DISTRICT SUPERVISOR POCT GLUCOSE DEVICE Routine 06/24/2020 12:12 AM DISTRICT SUPERVISOR POCT GLUCOSE DEVICE Routine 06/23/2020 11:21 PM DISTRICT SUPERVISOR POCT GLUCOSE DEVICE Routine 06/23/2020 10:16 PM DISTRICT SUPERVISOR CRITICAL RESULT CALLBACK CHEMISTRY Routine 06/23/2020 9:01 PM DISTRICT SUPERVISOR LACTATE, WHOLE BLOOD Routine 06/23/2020 9:01 PM DISTRICT SUPERVISOR BLOOD GAS, ARTERIAL STAT 06/23/2020 9 :01 PM DISTRICT SUPERVISOR POCT GLUCOSE DEVICE Routine 06/23/2020 8 :59 PM DISTRICT SUPERVISOR XR CHEST 1 VIEW IP Routine 06/23/2020 8:24 PM DISTRICT SUPERVISOR POC BLOOD GAS AND CHEMISTRIES, ARTERIAL Routine 06/23/2020 7:01 PM DISTRICT SUPERVISOR EXTUBATION Routine 06/23/2020 5:40 PM DISTRICT SUPERVISOR CRITICAL CARE Routine 06/23/2020 4:59 PM DISTRICT SUPERVISOR Severe aortic stenosis XR CHEST 1 VIEW ED Urgent/IP Urgent 06/23/2020 4:58 PM DISTRICT SUPERVISOR XR ABDOMEN AP 1 VIEW ED Urgent/IP Urgent 06/23/2020 4:58 PM DISTRICT SUPERVISOR POCT GLUCOSE DEVICE Routine 06/23/2020 4 :47 PM DISTRICT SUPERVISOR ECG 12-LEAD STAT 06/23/2020 4:29 PM DISTRICT SUPERVISOR POCT GLUCOSE DEVICE Routine 06/23/2020 4 :12 PM DISTRICT SUPERVISOR POTASSIUM, WHOLE BLOOD Routine 4:10 PM DISTRICT SUPERVISOR CRITICAL RESULT CALLBACK CHEMISTRY Routine 06/23/2020 4:10 PM DISTRICT SUPERVISOR CALCIUM, IONIZED Routine 06/23/2020 4:10 PM DISTRICT SUPERVISOR LACTATE, WHOLE BLOOD Routine 06/23/2020 4:10 PM DISTRICT SUPERVISOR APTT Routine 06/23/2020 4:10 PM DISTRICT SUPERVISOR PROTIME-INR Routine 06/23/2020 4:10 PM DISTRICT SUPERVISOR CBC WITHOUT DIFFERENTIAL Routine 021 4:10 PM DISTRICT SUPERVISOR PHOSPHORUS Routine 06/23/2020 4:10 PM DISTRICT SUPERVISOR MAGNESIUM Routine 06/23/2020 4:10 PM DISTRICT SUPERVISOR BLOOD GAS, ARTERIAL Routine 06/23/2020 4 :10 PM DISTRICT SUPERVISOR BASIC METABOLIC PANEL Routine 06/23/2020 4:10 PM DISTRICT SUPERVISOR TRANSFUSE RED BLOOD CELLS Timed 06/23/2020 3:16 PM DISTRICT SUPERVISOR TRANSFUSE RED BLOOD CELLS Timed 06/23/2020 3:09 PM DISTRICT SUPERVISOR POCT PLATELET COUNT AND HEMATOCRIT Routine 06/23/2020 3:07 PM DISTRICT SUPERVISOR POCT PROTHROMBIN TIME Routine 06/23/2020 3:05 PM DISTRICT SUPERVISOR POCT PARTIAL THROMBOPLASTIN TIME (PTT) Routine 06/23/2020 3:05 PM DISTRICT SUPERVISOR POC BLOOD GAS AND CHEMISTRIES, ARTERIAL Routine 06/23/2020 3:02 PM DISTRICT SUPERVISOR TRANSFUSE PLASMA Timed 06/23/2020 2:49 PM DISTRICT SUPERVISOR TRANSFUSE PLASMA Timed 06/23/2020 2:41 PM DISTRICT SUPERVISOR PREPARE PLASMA STAT 06/23/2020 2:26 PM DISTRICT SUPERVISOR POCT HEPARIN/ACT CPB Routine 06/23/2020 1:49 PM DISTRICT SUPERVISOR POCT PLATELET COUNT AND HEMATOCRIT Routine 06/23/2020 1:48 PM DISTRICT SUPERVISOR POCT PARTIAL THROMBOPLASTIN TIME (PTT) Routine 06/23/2020 1:48 PM DISTRICT SUPERVISOR POCT PROTHROMBIN TIME Routine 06/23/2020 1:47 PM DISTRICT SUPERVISOR POC BLOOD GAS AND CHEMISTRIES, ARTERIAL Routine 06/23/2020 1:44 PM DISTRICT SUPERVISOR TRANSFUSE PLATELETS Timed 06/23/2020 1 :42 PM DISTRICT SUPERVISOR POCT HEPARIN/ACT CPB Routine 06/23/2020 12:52 PM DISTRICT SUPERVISOR POC BLOOD GAS AND CHEMISTRIES, ARTERIAL Routine 06/23/2020 12:33 PM DISTRICT SUPERVISOR EXTRINSIC THROMBOELASTOMETRY (EXTEM) STAT 06/23/2020 12:12 PM DISTRICT SUPERVISOR THROMBOCYTE INHIBITED FIBRINOGEN (FIBTEM) STAT 06/23/2020 12:12 PM DISTRICT SUPERVISOR POCT HEPARIN/ACT CPB Routine 06/23/2020 11:54 AM DISTRICT SUPERVISOR POC BLOOD GAS AND CHEMISTRIES, ARTERIAL Routine 06/23/2020 11:35 AM DISTRICT SUPERVISOR PREPARE PLATELETS STAT 06/23/2020 11:22 AM DISTRICT SUPERVISOR POCT HEPARIN/ACT CPB Routine 06/23/2020 11:00 AM DISTRICT SUPERVISOR POCT HEPARIN/ACT CPB Routine 06/23/2020 9:30 AM DISTRICT SUPERVISOR POCT HEPARIN DOSE RESPONSE, CPB Routine 06/23/2020 7:19 AM DISTRICT SUPERVISOR POC BLOOD GAS AND CHEMISTRIES, ARTERIAL Routine 06/23/2020 7:15 AM DISTRICT SUPERVISOR SANDY ADD-ON FOR OR Routine 06/23/2020 7:0 0 AM DISTRICT SUPERVISOR REPLACEMENT AORTIC VALVE 6:55 AM DISTRICT SUPERVISOR Coronary artery disease without angina pectoris, unspecified vessel or lesion type, unspecified whether [place] or transplanted heart Aortic valve stenosis, etiology of cardiac valve disease unspecified Case Notes 06/20: case moved from 06/21 to 06/23 per Ksenia via phone call. DRE2: Missing postop destination, inbasket sent to [facility]. [facility] ENDOSCOPIC VESSEL HARVEST 06/23/2020 6:55 AM DISTRICT SUPERVISOR Coronary artery disease without angina pectoris, unspecified vessel or lesion type, unspecified whether [place] or transplanted heart Aortic valve stenosis, etiology of cardiac valve disease unspecified Case Notes 06/20: case moved from 06/21 to 06/23 per Ksenia via phone call. DRE2: Missing postop destination, inbasket sent to [facility]. [facility] HARVEST - RADIAL ARTERY 06/23/19 6:55 AM DISTRICT SUPERVISOR Coronary artery disease without angina pectoris, unspecified vessel or lesion type, unspecified whether [place] or transplanted heart Aortic valve stenosis, etiology of cardiac valve disease unspecified Case Notes 06/20: case moved from 06/21 to 06/23 per Ksenia via phone call. DRE2: Missing postop destination, inbasket sent to [facility]. [facility] CORONARY ARTERY BYPASS GRAFT WITH PUMP 06/23/2020 6:55 AM DISTRICT SUPERVISOR Coronary artery disease without angina pectoris, unspecified vessel or lesion type, unspecified whether [place] or transplanted heart Aortic valve stenosis, etiology of cardiac valve disease unspecified Case Notes 06/20: case moved from 06/21 to 06/23 per Ksenia via phone call. DRE2: Missing postop destination, inbasket sent to [facility]. [facility] PREPARE RBC STAT 06/23/2020 6:06 AM DISTRICT SUPERVISOR documented in this encounter Results * Event Monitor, 30 Day Event (06/28/2020 3:21 PM DISTRICT SUPERVISOR) Anatomical Region Laterality Modality Electrocardiogra phy 06/28/2020 2:25 PM DISTRICT SUPERVISOR Narrative 08/10/2020 6:41 PM CDT Patient name: Nathan Wagner Date of test: 06/28/2020 Type of Test: Event Monitor (NAVA) [facility] #: [id number] ?Location: [facility] CDL : 1945 ??Age: 74 ??Sex: M Ref Physician(s): FELTON CHIU MD Interpreted by: Logan Weir MD Art of [employer] Tech: Bijal Nicholas Diagnosis: Monitoring Service: Preventice Reason for Test: I48.0: Paroxysmal atrial fibrillation Monitor Used: Body Guardian Heart (MCT) ??[id number] Enrollment Period: Jun 28 - Jul 27, 2020 Hook-Up Tech comments: Patient Instructions: Understood directions and use of equipment. Number of Transmissions Sent During Enrollment Period: 37 To obtain transmission tracing contact: Rhythm Summary: Afib longest duration: 00:50:29 Date [...] duration: 00:00:12 Tachycardia shortest episode: 07/04/2020 21:48:00 Cardiologis Review of Transmissions: multiple episodes of a-fib.flutter w RVR detected automatically. ??Clinical correlation unknown., I have reviewed the findings on the individual tracings for the dates noted below and I agree., The full scanned/data report is available in [employer]. labeled MONITOR STRIPS PDF . This study was interpreted by Logan Weir MD Confirmed on ??08/10/2020 - 18:41:08 by Logan Weir MD Summary of Transmitted Events: # ??Date ? Time ?HR ?Symptoms/Rhythm ? 37 07/24/20 18:32 ?? 80.0 ?None or Accidental Push ? Sinus Rhythm w/Artifact ? 36 07/24/20 03:06 ?? 110.0 ?? Auto Trigger ? Atrial Flutter, Atrial Flutter with Variable Conduction 35 07/24/20 02:22 ?? 90.0 ?Auto Trigger ? Sinus Rhythm, Atrial Fibrillation Non Sustained w/PACs 34 07/20/20 12:32 ?? 77.0 ?None or Accidental Push ? Sinus Rhythm w/Artifact/Lead Loss ? 33 07/19/20 06:37 ?? 110.0 ?? Auto Trigger ? Atrial Flutter with Variable Conduction Onset, Sinus Rhy 32 07/18/20 07:43 ?? 140.0 ?? Auto Trigger ? Atrial Flutter with Variable Conduction Onset, Sinus Rhy 31 07/18/20 04:23 ?? 110.0 ?? Auto Trigger ? Atrial Flutter with Variable Conduction ? 30 07/17/20 04:08 ?? 120.0 ?? Auto Trigger ? Atrial Fibrillation RVR Sustained (30 Sec), Sinus Rhythm 29 07/15/20 22:33 ?? 58.0 ?Auto Trigger ? Sinus Bradycardia, Sinus Rhythm, Atrial Flutter with Brittney 28 07/15/20 04:44 ?? 113.0 ?? Auto Trigger ? Sinus Tachycardia w/PACs ? 27 07/15/20 04:17 ?? 62.0 ?Auto Trigger ? Variable, Atrial Tachycardia, Sinus Rhythm Onset, Atrial 26 07/14/20 00:58 ?? 110.0 ?? Auto Trigger ? Atrial Flutter with Variable Conduction Onset, Sinus Bra 25 07/13/20 18:54 ?? 160.0 ?? Auto Trigger ? Atrial Flutter, Sinus Rhythm ? 24 07/13/20 04:37 ?? 122.0 ?? Auto Trigger ? Sinus Tachycardia w/PVCs (1 in 1 min) ? 23 07/13/20 04:14 ?? 90.0 ?Auto Trigger ? Sinus Rhythm, Atrial Fibrillation Offset w/Atrial Run/Ar 22 07/12/20 07:38 ?? 140.0 ?? Auto Trigger ? Atrial Fibrillation RVR Onset, Sinus Rhythm w/PACs ? 07/12/20 00:53 ?? 110.0 ?? Auto Trigger ? Atrial Flutter with Variable Conduction Onset, Sinus Rhy 20 07/11/20 06:41 ?? 171.0 ?? Auto Trigger ? Sinus Rhythm w/Run of V-Tach (9 beats)/Atrial Run/PACs 19 07/11/20 00:07 ?? 100.0 ?? Auto Trigger ? Sinus Rhythm, Atrial Flutter with Variable Conduction On 18 07/09/20 20:41 ?? 130.0 ?? Auto Trigger ? Atrial Flutter with Variable Conduction w/Artifact ? 17 07/09/20 03:26 ?? 130.0 ?? Auto Trigger ? Atrial Fibrillation RVR, Sinus Rhythm w/PACs/Artifact ?? 16 07/08/20 15:11 ?? 79.0 ?None or Accidental Push ? Sinus Rhythm ? 15 07/07/20 18:43 ?? 174.0 ?? Auto Trigger ? Atrial Flutter Onset, Sinus Rhythm w/PVCs (2 in 1 min) 14 07/07/20 06:47 ?? 130.0 ?? Auto Trigger ? Atrial Flutter with Variable Conduction ? 07/06/20 07:06 ?? 110.0 ?? Auto Trigger ? Atrial Fibrillation RVR Onset, Sinus Rhythm w/Atrial Run 12 07/06/20 04:18 ?? 110.0 ?? Auto Trigger ? Atrial Fibrillation RVR Onset, Sinus Rhythm ? 11 07/05/20 04:56 ?? 100.0 ?? Auto Trigger ? Atrial Flutter Onset, Sinus Rhythm w/Couplet PACs ? 10 07/04/20 02:55 ?? 120.0 ?? Auto Trigger ? Atrial Flutter with Variable Conduction ? 9 ??07/03/20 17:40 ?? 83.0 ?None or Accidental Push ? Sinus Rhythm w/Lead Loss ? 8 ??07/03/20 03:05 ?? 120.0 ?? Auto Trigger ? Atrial Fibrillation RVR Sustained w/Artifact ? 7 ??07/02/20 08:14 ?? 140.0 ?? Auto Trigger ? Atrial Flutter with Variable Conduction w/Artifact ? 6 ??07/02/20 02:59 ?? 120.0 ?? Auto Trigger ? Sinus Rhythm, Atrial Fibrillation RVR Sustained w/Artifa 5 ??07/01/20 03:09 ?? 134.0 ?? Auto Trigger ? Sinus Tachycardia w/Artifact ? 4 ??06/30/20 03:31 ?? 120.1 ?? Auto Trigger ? Atrial Flutter with Variable Conduction ? 3 ??06/29/20 01:55 ?? 90.1 ?Auto Trigger ? Atrial Flutter with Variable Conduction, Sinus Rhythm ?? 2 ??06/28/20 16:51 ?? 100.1 ?? Auto Trigger ? Sinus Rhythm, Atrial Fibrillation RVR Non Sustained ? 1 ??03/02/21 15:06 ?? 66.3 ?Baseline ? Sinus Rhythm w/Artifact ? I have personally reviewed and interpreted this study. Procedure Note Logan Weir MD PhD - 08/10/2020 Patient name: Nathan Wagner Date of test: 06/28/2020 Type of Test: Event Monitor ([facility]) [facility] #: [id number] Location: [facility] : 1945 Age: 74 Sex: M Ref Physician(s): FELTON CHIU MD Interpreted by: Logan Weir MD [employer] Tech: Bijal Nicholas Diagnosis: Monitoring Service: [employer] Reason for Test: I48.0: Paroxysmal atrial fibrillation Monitor Used: [facility] ([facility]) [id number] Enrollment Period: Jun 28 - Jul 27, 2020 [employer] comments: Patient Instructions: Understood directions and use of equipment. Number of Transmissions Sent During Enrollment Period: 37 To obtain transmission tracing contact: Rhythm Summary: Afib longest duration: 00:50:29 Date [...] duration: 00:00:12 Tachycardia shortest episode: 07/04/2020 21:48:00 Cardiologis Review of Transmissions: multiple episodes of a-fib.flutter w RVR detected automatically. Clinical correlation unknown., I have reviewed the findings on the individual tracings for the dates noted below and I agree., The full scanned/data report is available in [employer]. labeled MONITOR STRIPS PDF . This study was interpreted by Lgoan Weir MD Confirmed on 08/10/2020 - 18:41:08 by Logan Weir MD Summary of Transmitted Events: # Date Time HR Symptoms/Rhythm 37 07/24/20 18:32 80.0 None or Accidental Push Sinus Rhythm w/Artifact 36 07/24/20 03:06 110.0 Auto Trigger Atrial Flutter, Atrial Flutter with Variable Conduction 35 07/24/20 02:22 90.0 Auto Trigger Sinus Rhythm, Atrial Fibrillation Non Sustained w/PACs 34 07/20/20 12:32 77.0 None or Accidental Push Sinus Rhythm w/Artifact/Lead Loss 33 07/19/20 06:37 110.0 Auto Trigger Atrial Flutter with Variable Conduction Onset, Sinus Rhy 32 07/18/20 07:43 140.0 Auto Trigger Atrial Flutter with Variable Conduction Onset, Sinus Rhy 31 07/18/20 04:23 110.0 Auto Trigger Atrial Flutter with Variable Conduction 30 07/17/20 04:08 120.0 Auto Trigger Atrial Fibrillation RVR Sustained (30 Sec), Sinus Rhythm 29 07/15/20 22:33 58.0 Auto Trigger Sinus Bradycardia, Sinus Rhythm, Atrial Flutter with Brittney 07/15/20 04:44 113.0 Auto Trigger Sinus Tachycardia w/PACs 07/15/20 04:17 62.0 Auto Trigger Variable, Atrial Tachycardia, Sinus Rhythm Onset, Atrial 07/14/20 00:58 110.0 Auto Trigger Atrial Flutter with Variable Conduction Onset, Sinus Bra 07/13/20 18:54 160.0 Auto Trigger Atrial Flutter, Sinus Rhythm 07/13/20 04:37 122.0 Auto Trigger Sinus Tachycardia w/PVCs (1 in 1 min) 07/13/20 04:14 90.0 Auto Trigger Sinus Rhythm, Atrial Fibrillation Offset w/Atrial Run/Ar 07/12/20 07:38 140.0 Auto Trigger Atrial Fibrillation RVR Onset, Sinus Rhythm w/PACs 07/12/20 00:53 110.0 Auto Trigger Atrial Flutter with Variable Conduction Onset, Sinus Rhy 07/11/20 06:41 171.0 Auto Trigger Sinus Rhythm w/Run of V-Tach (9 beats)/Atrial Run/PACs 07/11/20 00:07 100.0 Auto Trigger Sinus Rhythm, Atrial Flutter with Variable Conduction On 07/09/20 20:41 130.0 Auto Trigger Atrial Flutter with Variable Conduction w/Artifact 17 07/09/20 03:26 130.0 Auto Trigger Atrial Fibrillation RVR, Sinus Rhythm w/PACs/Artifact 16 07/08/20 15:11 79.0 None or Accidental Push Sinus Rhythm 15 07/07/20 18:43 174.0 Auto Trigger Atrial Flutter Onset, Sinus Rhythm w/PVCs (2 in 1 min) 14 07/07/20 06:47 130.0 Auto Trigger Atrial Flutter with Variable Conduction 13 07/06/20 07:06 110.0 Auto Trigger Atrial Fibrillation RVR Onset, Sinus Rhythm w/Atrial Run 12 07/06/20 04:18 110.0 Auto Trigger Atrial Fibrillation RVR Onset, Sinus Rhythm 11 07/05/20 04:56 100.0 Auto Trigger Atrial Flutter Onset, Sinus Rhythm w/Couplet PACs 10 07/04/20 02:55 120.0 Auto Trigger Atrial Flutter with Variable Conduction 9 07/03/20 17:40 83.0 None or Accidental Push Sinus Rhythm w/Lead Loss 8 07/03/20 03:05 120.0 Auto Trigger Atrial Fibrillation RVR Sustained w/Artifact 7 07/02/20 08:14 140.0 Auto Trigger Atrial Flutter with Variable Conduction w/Artifact 6 07/02/20 02:59 120.0 Auto Trigger Sinus Rhythm, Atrial Fibrillation RVR Sustained w/Artifa 5 07/01/20 03:09 134.0 Auto Trigger Sinus Tachycardia w/Artifact 4 06/30/20 03:31 120.1 Auto Trigger Atrial Flutter with Variable Conduction 3 06/29/20 01:55 90.1 Auto Trigger Atrial Flutter with Variable Conduction, Sinus Rhythm 2 06/28/20 16:51 100.1 Auto Trigger Sinus Rhythm, Atrial Fibrillation RVR Non Sustained 1 06/28/20 15:06 66.3 Baseline Sinus Rhythm w/Artifact I have personally reviewed and interpreted this study. us Shana H. Alvarado PRINT DECORATOR CV CARDIAC SERVICES PROCEDURES F inal Result * ECG 12 lead (06/28/2020 6:07 AM DISTRICT SUPERVISOR) [facility] Ventricular Rate EKG/Min 115 BPM [facility] Atrial Rate 249 BPM [facility] QRS-Interval (MSEC) 100 ms [facility] QT-Interval (MSEC) 362 ms [facility] QTc 500 ms [facility] R Rand -27 degrees [facility] T Rand 35 degrees [facility] Diagnosis Atrial flutter with variable A-V block Low voltage in limb leads consider pulmonary disease Nonspecific ST abnormality Abnormal ECG When compared with ECG of 27-JUN-2020 05:28, (unconfirmed) Atrial flutter has replaced Sinus rhythm This ECG was personally interpreted by the attending physician indicated below Confirmed by IVET/ALEJANDRO MADISON ([id number]) on 06/29/2020 12:51:28 PM [facility] 06/28/2020 6:07 AM DISTRICT SUPERVISOR 06/29/2020 12:51 PM DISTRICT SUPERVISOR Daniele Madrigal PRINT DECORATOR ECG ORDERABLES Final Resu lt [facility] * (ABNORMAL) Basic metabolic panel (06/27/2020 8:21 PM DISTRICT SUPERVISOR) [facility] Sodium 139 135 - 145 mmol/L [facility] Potassium, pl 4.2 3.3 - 4.9 mmol/L [facility] Chloride 104 97 - 110 mmol/L [facility] CO2 29 22 - 32 mmol/L [facility] Anion gap 6 2 - 15 mmol/L [facility] BUN 27(H) 8 - 25 mg/dL [facility] Creatinine 1.29 0.80 - 1.30 mg/dL [facility] Glucose 147 70 - 199 mg/dL [facility] Comment: Interpretive Data Fasting glucose >/= 126 [...] interpretive data was last revised 2017. Calcium 8.7 8.5 - 10.3 mg/dL [facility] Blood specimen (specimen) 06/27/2020 8:21 PM DISTRICT SUPERVISOR 06/27/2020 9:24 PM DISTRICT SUPERVISOR us Shana Alvarado NP LAB BLOOD ORDERABLES Final Resul t [facility] Department [place] [address] * (ABNORMAL) CBC without differential (06/27/2020 8:21 PM DISTRICT SUPERVISOR) WBC 9.2 3.8 - 9.9 K/cumm [facility] Hgb 7.6(L) 13.0 - 17.5 g/dL [facility] Hct 23.9(L) 38.9 - 50.3 % [facility] Plt 182 150 - 400 K/cumm [facility] MPV 13.8(H) 9.1 - 12.3 fL [facility] RBC 2.63(L) 4.30 - 5.80 M/cumm [facility] MCV 90.9 81.3 - 96.4 fL [facility] MCH 28.9 27.1 - 33.3 pg [facility] MCHC 31.8(L) 32.3 - 35.7 g/dL [facility] RDW CV 14.6 11.1 - 14.9 % [facility] RDW SD 47.6 35.7 - 48.1 fL [facility] NRBC abs 0.10(H) 0.00 - 0.01 K/cumm [facility] Blood specimen (specimen) 06/27/2020 8:21 PM DISTRICT SUPERVISOR 06/27/2020 9:24 PM DISTRICT SUPERVISOR us Shana H. Alvarado PRINT DECORATOR LAB BLOOD ORDERABLES Final Resul t Performing Organization Address [facility] Co de Phone Number [facility] Department [place] [address] * ECG 12 lead (06/27/2020 5:28 AM DISTRICT SUPERVISOR) Ventricular Rate EKG/Min 80 BPM [facility] Atrial Rate 80 BPM [facility] NC-Interval (MSEC) 168 ms [facility] QRS-Interval (MSEC) 98 ms [facility] QT-Interval (MSEC) 438 ms [facility] QTc 505 ms [facility] P Rand 48 degrees [facility] R Rand 0 degrees [facility] T Rand 29 degrees [facility] Diagnosis Sinus rhythm with Premature atrial complexes Possible Left atrial enlargement Prolonged QT Abnormal ECG When compared with ECG of 26-JUN-2020 04:14, (unconfirmed) Premature atrial complexes are now Present Confirmed by LOGAN WEIR M.D ([id number]) on 06/30/2020 1:24:56 PM [facility] 06/27/2020 5:28 AM DISTRICT SUPERVISOR 06/30/2020 1:24 PM DISTRICT SUPERVISOR Daniele Madrigal PRINT DECORATOR ECG ORDERABLES Final Resu lt Performing Organization Address [facility] de Phone Number [facility] * (ABNORMAL) aPTT (06/27/2020 5:20 AM DISTRICT SUPERVISOR) Pathologist [facility] aPTT 50(H) 27 - 37 sec [facility] Comment: Interpretive data Heparin therapeutic range: 60-90 seconds Range based on correlation with therapeutic heparin activity range of 0.3-0.7 units/ml. Current interpretive data was last revised on 2019. Blood specimen (specimen) 06/27/2020 5:20 AM DISTRICT SUPERVISOR 06/27/2020 5:48 AM DISTRICT SUPERVISOR Octavia Heath PRINT DECORATOR LAB BLOOD ORDERABLES Final Result Performing Organization Address [facility] Co de Phone Number [facility] [place] [address] * aPTT (06/27/2020 12:41 AM DISTRICT SUPERVISOR) [facility] aPTT 27 27 - 37 sec [facility] Comment: Interpretive data Heparin therapeutic range: 60-90 seconds Range based on correlation with therapeutic heparin activity range of 0.3-0.7 units/ml. Current interpretive data was last revised on 2019. Blood specimen (specimen) 06/27/2020 12:41 AM DISTRICT SUPERVISOR 06/27/2020 1:31 AM DISTRICT SUPERVISOR Narrative [facility] - 06/27/2020 1:40 AM DISTRICT SUPERVISOR Draw STAT PTT 6 hrs after initial heparin bolus, after each rate change, and every 6 hours until 2 consecutive PTTs are within therapeutic range. Once two consecutive PTT's are therapeutic (60-94.9 seconds), then draw PTT every AM until heparin is discontinued. us Octavia Heath NP LAB BLOOD ORDERABLES Final Result [facility] [place] [address] * Magnesium (06/26/2020 11:50 PM DISTRICT SUPERVISOR) [facility] Magnesium 2.3 1.4 - 2.5 mg/dL [facility] Blood specimen (specimen) 06/26/2020 11:50 PM DISTRICT SUPERVISOR 06/27/2020 12:21 AM DISTRICT SUPERVISOR us Felton Chiu MD LAB BLOOD [place]AB[place] [address] * (ABNORMAL) Basic metabolic panel (06/26/2020 11:50 PM DISTRICT SUPERVISOR) [facility] Sodium 141 135 - 145 mmol/L [facility] Potassium, pl 4.4 3.3 - 4.9 mmol/L [facility] Chloride 107 97 - 110 mmol/L [facility] CO2 29 22 - 32 mmol/L [facility] Anion gap 5 2 - 15 mmol/L [facility] BUN 27(H) 8 - 25 mg/dL [facility] Creatinine 1.20 0.80 - 1.30 mg/dL [facility] Glucose 118 70 - 199 mg/dL [facility] Comment: Interpretive Data Fasting glucose >/= 126 [...] interpretive data was last revised 2017. Calcium 8.5 8.5 - 10.3 mg/dL [facility] Blood specimen (specimen) 06/26/2020 11:50 PM DISTRICT SUPERVISOR 06/27/2020 12:21 AM DISTRICT SUPERVISOR us Shana Alvarado NP LAB BLOOD ORDERABLES Final Resul t [facility] Department [place] [address] * (ABNORMAL) CBC without differential (06/26/2020 11:50 PM DISTRICT SUPERVISOR) Pathologist [facility] WBC 10.9(H) 3.8 - 9.9 K/cumm [facility] Hgb 7.5(L) 13.0 - 17.5 g/dL [facility] Hct 23.7(L) 38.9 - 50.3 % [facility] Plt 154 150 - 400 K/cumm [facility] MPV 14.0(H) 9.1 - 12.3 fL [facility] RBC 2.63(L) 4.30 - 5.80 M/cumm [facility] MCV 90.1 81.3 - 96.4 fL [facility] MCH 28.5 27.1 - 33.3 pg [facility] MCHC 31.6(L) 32.3 - 35.7 g/dL [facility] RDW CV 14.9 11.1 - 14.9 % [facility] RDW SD 49.2(H) 35.7 - 48.1 fL [facility] NRBC abs 0.09(H) 0.00 - 0.01 K/cumm [facility] Blood specimen (specimen) 06/26/2020 11:50 PM DISTRICT SUPERVISOR 06/27/2020 12:21 AM DISTRICT SUPERVISOR us Shana Alvarado NP LAB BLOOD ORDERABLES Final Resul t [facility] Department [place] [address] * XR Chest Pa Lateral 2 Views (06/26/2020 2:31 PM DISTRICT SUPERVISOR) Anatomical Region Laterality Modality Body, Chest N/A Computed Radiogr aphy 06/27/2020 8:32 AM DISTRICT SUPERVISOR Impressions 06/27/2020 8:56 AM DISTRICT SUPERVISOR Comparison is made to chest radiography dated June 25, 2020. A right internal jugular central venous catheter terminates at the cavoatrial junction. Median sternotomy wires are midline and intact. Mediastinal drains have been removed. Blunting of the left posterior costophrenic recess represents a small left pleural effusion. There is no right pleural effusion. There is no consolidation or pneumothorax. An azygos fissure is incidentally noted. The cardiac silhouette is unchanged in size. Dictated by: Иван Meraz M.D. The radiology attending physician has personally reviewed this study, and had reviewed and/or edited this written report and agrees with it. Electronically signed by: David Sanders M.D. Narrative 06/27/2020 8:56 AM DISTRICT SUPERVISOR EXAMINATION: 2 view chest radiograph Procedure Note David Sanders MD - 06/27/2020 EXAMINATION: 2 view chest radiograph IMPRESSION: Comparison is made to chest radiography dated June 25, 2020. A right internal jugular central venous catheter terminates at the cavoatrial junction. Median sternotomy wires are midline and intact. Mediastinal drains have been removed. Blunting of the left posterior costophrenic recess represents a small left pleural effusion. There is no right pleural effusion. There is no consolidation or pneumothorax. An azygos fissure is incidentally noted. The cardiac silhouette is unchanged in size. Dictated by: Иван Meraz M.D. The radiology attending physician has personally reviewed this study, and had reviewed and/or edited this written report and agrees with it. Electronically signed by: David Sanders M.D. Shana Alvarado PRINT DECORATOR IMG XR PROCEDURES Final Result * ECG 12 lead (06/26/2020 4:14 AM DISTRICT SUPERVISOR) Ventricular Rate EKG/Min 75 BPM [facility] Atrial Rate 75 BPM [facility] NC-Interval (MSEC) 158 ms [facility] QRS-Interval (MSEC) 100 ms [facility] QT-Interval (MSEC) 432 ms [facility] QTc 482 ms [facility] P Rand 35 degrees [facility] R Rand 6 degrees [facility] T Rand 17 degrees [facility] Diagnosis Normal sinus rhythm Prolonged QT Abnormal ECG When compared with ECG of 25-JUN-2020 13:22, (unconfirmed) No significant change was found Confirmed by LOGAN WEIR M.D ([id number]) on 06/28/2020 10:41:08 PM [facility] 06/26/2020 4:14 AM DISTRICT SUPERVISOR 06/28/2020 10:41 PM DISTRICT SUPERVISOR Emmie Daniels NP ECG ORDERABLES Final Resu lt [facility] * (ABNORMAL) Basic metabolic panel (06/25/2020 11:01 PM DISTRICT SUPERVISOR) Pathologist [facility] Sodium 139 135 - 145 mmol/L [facility] Potassium, pl 4.1 3.3 - 4.9 mmol/L [facility] Chloride 106 97 - 110 mmol/L [facility] CO2 28 22 - 32 mmol/L [facility] Anion gap 5 2 - 15 mmol/L [facility] BUN 24 8 - 25 mg/dL [facility] Creatinine 1.28 0.80 - 1.30 mg/dL [facility] Glucose 127 70 - 199 mg/dL [facility] Comment: Interpretive Data Fasting glucose >/= 126 [...] interpretive data was last revised 2017. Calcium 8.4(L) 8.5 - 10.3 mg/dL [facility] Blood specimen (specimen) 06/25/2020 11:01 PM DISTRICT SUPERVISOR 06/25/2020 11:45 PM DISTRICT SUPERVISOR us Tato Dickerson MD LAB BLOOD ORDERABLES Fi nal Result [facility] Department [place] [address] * (ABNORMAL) CBC without differential (06/25/2020 11:01 PM DISTRICT SUPERVISOR) WBC 11.8(H) 3.8 - 9.9 K/cumm [facility] Hgb 7.6(L) 13.0 - 17.5 g/dL [facility] Hct 23.2(L) 38.9 - 50.3 % [facility] Plt 119(L) 150 - 400 K/cumm [facility] MPV 13.5(H) 9.1 - 12.3 fL [facility] RBC 2.62(L) 4.30 - 5.80 M/cumm [facility] MCV 88.5 81.3 - 96.4 fL [facility] MCH 29.0 27.1 - 33.3 pg [facility] MCHC 32.8 32.3 - 35.7 g/dL [facility] RDW CV 14.9 11.1 - 14.9 % [facility] RDW SD 48.1 35.7 - 48.1 fL [facility] NRBC abs 0.03(H) 0.00 - 0.01 K/cumm [facility] Blood specimen (specimen) 06/25/2020 11:01 PM DISTRICT SUPERVISOR 06/25/2020 11:45 PM DISTRICT SUPERVISOR us Tato Dickerson MD LAB BLOOD ORDERABLES Fi nal Result [facility] Department [place] [address] * XR Chest Pa Lateral 2 Views (06/25/2020 3:24 PM DISTRICT SUPERVISOR) Anatomical Region Laterality Modality Body, Chest N/A Computed Radiogr aphy 06/26/2020 8:08 AM DISTRICT SUPERVISOR Impressions 06/26/2020 8:14 AM DISTRICT SUPERVISOR Comparison is made to 06/23/2020. Right internal jugular central venous line is in place with tip overlying the superior cavoatrial junction. In the interval, the [place]-Preet catheter is removed. 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 Epicardial pacer wires are removed. A pericardial and mediastinal drain is in place. Miniscule gas the adjacent to the inferior aspect of the sternum related to evolving postoperative change. There is no pleural effusion or pneumothorax. There is no focal consolidation or pulmonary edema. Heart size and mediastinal silhouette is stable. Dictated by: Anna Jackson M.D. The radiology attending physician has personally reviewed this study, and had reviewed and/or edited this written report and agrees with it. Electronically signed by: Obie Ware M.D. Narrative 06/26/2020 8:14 AM DISTRICT SUPERVISOR EXAMINATION: 2 view chest radiograph Procedure Note Obie Ware MD - 06/26/2020 EXAMINATION: 2 view chest radiograph IMPRESSION: Comparison is made to 06/23/2020. Right internal jugular central venous line is in place with tip overlying the superior cavoatrial junction. In the interval, the [place]-Preet catheter is removed. 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 Epicardial pacer wires are removed. A pericardial and mediastinal drain is in place. Miniscule gas the adjacent to the inferior aspect of the sternum related to evolving postoperative change. There is no pleural effusion or pneumothorax. There is no focal consolidation or pulmonary edema. Heart size and mediastinal silhouette is stable. Dictated by: Anna Jackson M.D. The radiology attending physician has personally reviewed this study, and had reviewed and/or edited this written report and agrees with it. Electronically signed by: Obie Ware M.D. Daniele Madrigal NP IMG XR PROCEDURES Final Re sult * ECG 12 lead (06/25/2020 1:22 PM DISTRICT SUPERVISOR) Ventricular Rate EKG/Min 80 BPM [facility] Atrial Rate 80 BPM [facility] NC-Interval (MSEC) 144 ms [facility] QRS-Interval (MSEC) 106 ms [facility] QT-Interval (MSEC) 414 ms [facility] QTc 477 ms [facility] P Rand 48 degrees [facility] R Rand 11 degrees [facility] T Rand 33 degrees [facility] Diagnosis Normal sinus rhythm Normal ECG When compared with ECG of 25-JUN-2020 05:26, (unconfirmed) Sinus rhythm has replaced Atrial fibrillation Vent. rate has decreased BY ??46 BPM QRS duration has increased Confirmed by LOGAN WEIR M.D ([id number]) on 06/27/2020 10:42:19 AM [facility] 06/25/2020 1:22 PM DISTRICT SUPERVISOR 06/27/2020 10:42 AM DISTRICT SUPERVISOR Daniele Madrigal NP ECG ORDERABLES Final Resu lt [facility] * (ABNORMAL) CBC without differential (06/25/2020 12:20 PM DISTRICT SUPERVISOR) [facility] WBC 13.0(H) 3.8 - 9.9 K/cumm [facility] Hgb 8.1(L) 13.0 - 17.5 g/dL [facility] Hct 24.5(L) 38.9 - 50.3 % [facility] Plt 133(L) 150 - 400 K/cumm [facility] MPV 13.0(H) 9.1 - 12.3 fL [facility] RBC 2.79(L) 4.30 - 5.80 M/cumm [facility] MCV 87.8 81.3 - 96.4 fL [facility] MCH 29.0 27.1 - 33.3 pg [facility] MCHC 33.1 32.3 - 35.7 g/dL [facility] RDW CV 14.8 11.1 - 14.9 % [facility] RDW SD 47.7 35.7 - 48.1 fL [facility] NRBC abs 0.02(H) 0.00 - 0.01 K/cumm [facility] Blood specimen (specimen) 06/25/2020 12:20 PM DISTRICT SUPERVISOR 06/25/2020 12:31 PM DISTRICT SUPERVISOR Result Rebecca Daniels NP LAB BLOOD ORDERABLES Final Result Performing Organization Address [facility] CENTER Co de Phone Number [facility] [employer] [place] [address] * Transfuse RBC (06/25/2020 7:56 AM DISTRICT SUPERVISOR) Blood specimen (specimen) Result Rebecca Daniels NP BLOOD TRANSFUSION ORDERABL ES Final Result Performing Organization Address [facility]/ZIP Co de Phone Number [facility] [employer] [place] [address] * Transfuse RBC: 1 Units (06/25/2020 7:56 AM DISTRICT SUPERVISOR) Blood specimen (specimen) Result Rebecca Daniels NP BLOOD TRANSFUSION ORDERABL ES Final Result * ECG 12 lead (06/25/2020 5:26 AM DISTRICT SUPERVISOR) Ventricular Rate EKG/Min 126 BPM [facility] Atrial Rate 120 BPM [facility] QRS-Interval (MSEC) 86 ms [facility] QT-Interval (MSEC) 288 ms [facility] QTc 417 ms [facility] R Rand 7 degrees [facility] T Rand 38 degrees [facility] Diagnosis Atrial fibrillation with rapid ventricular response Abnormal ECG When compared with ECG of 23-JUN-2020 16:29, Atrial fibrillation has replaced Sinus rhythm Vent. rate has increased BY ??[address] no longer depressed in Anterolateral leads Confirmed by LOGAN WEIR M.D ([id number]) on 06/27/2020 10:41:37 AM [facility] 06/25/2020 5:26 AM DISTRICT SUPERVISOR 06/27/2020 10:41 AM DISTRICT SUPERVISOR us Emmie Daniels NP ECG ORDERABLES Final Resu lt [facility] * Prepare RBC: 1 Units (06/25/2020 4:42 AM DISTRICT SUPERVISOR) Pathologist [facility] Product code [id number] [facility] Unit Number [id number] [facility] Product Blood Type ANEG [facility] Dispense Status PRESUMED TRANSFUSED [facility] Blood specimen (specimen) 06/25/2020 4:42 AM DISTRICT SUPERVISOR 06/25/2020 4:42 AM DISTRICT SUPERVISOR Narrative [facility] - 06/26/2020 12:48 AM DISTRICT SUPERVISOR Are special requirements needed? (all products are leukoreduced)->No Date required:-[id number] LRRBC # of [id number] Reasons:-Cardiovascular disease, Hgb <8 g/dL} us Emmie Daniels NP BLOOD BANK PRODUCT ORDERAB LES Final Result [facility] Department [place] [address] * (ABNORMAL) CBC without differential (06/25/2020 4:02 AM DISTRICT SUPERVISOR) WBC 11.0(H) 3.8 - 9.9 K/cumm [facility] Hgb 6.5(L) 13.0 - 17.5 g/dL [facility] Hct 20.0(L) 38.9 - 50.3 % [facility] Plt 110(L) 150 - 400 K/cumm [facility] MPV 12.9(H) 9.1 - 12.3 fL [facility] RBC 2.28(L) 4.30 - 5.80 M/cumm [facility] MCV 87.7 81.3 - 96.4 fL [facility] MCH 28.5 27.1 - 33.3 pg [facility] MCHC 32.5 32.3 - 35.7 g/dL [facility] RDW CV 14.7 11.1 - 14.9 % [facility] RDW SD 46.7 35.7 - 48.1 fL [facility] NRBC abs 0.00 0.00 - 0.01 K/cumm [facility] Blood specimen (specimen) 06/25/2020 4:02 AM DISTRICT SUPERVISOR 06/25/2020 4:22 AM DISTRICT SUPERVISOR Emmie Daniels PRINT DECORATOR LAB BLOOD ORDERABLES Final Result [facility] Department [place] [address] * Type and screen (06/25/2020 4:02 AM DISTRICT SUPERVISOR) Jasmine, indirect Negative [facility] ABO Rh A Negative [facility] Blood specimen (specimen) 06/25/2020 4:02 AM DISTRICT SUPERVISOR 06/25/2020 4:16 AM DISTRICT SUPERVISOR Narrative [facility] - 06/25/2020 6:02 AM DISTRICT SUPERVISOR Has the patient had Daratumumab or Isatuximab in the past 6 months?->Unknown Emmie Daniels PRINT DECORATOR LAB BLOOD BANK TEST ORDERA BLES Final Result Performing Organization Address City/[facility]/ZIP Co de Phone Number [facility] [employer] [place] [address] * Magnesium (06/24/2020 9:04 PM DISTRICT SUPERVISOR) [facility] Magnesium 2.3 1.4 - 2.5 mg/dL [facility] Blood specimen (specimen) 06/24/2020 9:04 PM DISTRICT SUPERVISOR 06/24/2020 9:53 PM DISTRICT SUPERVISOR Emmie Daniels PRINT DECORATOR LAB BLOOD ORDERABLES Final Result Performing Organization Address [facility] Co de Phone Number [facility] [place] [address] * (ABNORMAL) CBC without differential (06/24/2020 9:04 PM DISTRICT SUPERVISOR) [facility] WBC 11.9(H) 3.8 - 9.9 K/cumm [facility] Hgb 7.2(L) 13.0 - 17.5 g/dL [facility] Hct 22.1(L) 38.9 - 50.3 % [facility] Plt 115(L) 150 - 400 K/cumm [facility] MPV 13.2(H) 9.1 - 12.3 fL [facility] RBC 2.49(L) 4.30 - 5.80 M/cumm [facility] MCV 88.8 81.3 - 96.4 fL [facility] MCH 28.9 27.1 - 33.3 pg [facility] MCHC 32.6 32.3 - 35.7 g/dL [facility] RDW CV 14.6 11.1 - 14.9 % [facility] RDW SD 47.5 35.7 - 48.1 fL [facility] NRBC abs 0.00 0.00 - 0.01 K/cumm [facility] Blood specimen (specimen) 06/24/2020 9:04 PM DISTRICT SUPERVISOR 06/24/2020 9:55 PM DISTRICT SUPERVISOR Emmie Daniels PRINT DECORATOR LAB BLOOD ORDERABLES Final Result Performing Organization Address City/[facility]/ZIP Co de Phone Number [facility] Department [place] [address] * Basic metabolic panel (06/24/2020 9:04 PM DISTRICT SUPERVISOR) Pathologist [facility] Sodium 141 135 - 145 mmol/L [facility] Potassium, pl 4.2 3.3 - 4.9 mmol/L [facility] Chloride 108 97 - 110 mmol/L [facility] CO2 25 22 - 32 mmol/L [facility] Anion gap 8 2 - 15 mmol/L [facility] BUN 19 8 - 25 mg/dL [facility] Creatinine 1.09 0.80 - 1.30 mg/dL [facility] Glucose 149 70 - 199 mg/dL [facility] Comment: Interpretive Data Fasting glucose >/= 126 [...] interpretive data was last revised 2017. Calcium 8.7 8.5 - 10.3 mg/dL [facility] Blood specimen (specimen) 06/24/2020 9:04 PM DISTRICT SUPERVISOR 06/24/2020 9:53 PM DISTRICT SUPERVISOR Emmie Daniels PRINT DECORATOR LAB BLOOD ORDERABLES Final Result Performing Organization Address [facility]/ZIP Co de Phone Number [facility] Department [place] [address] * (ABNORMAL) CBC without differential (06/24/2020 11:27 AM DISTRICT SUPERVISOR) Pathologist [facility] WBC 12.7(H) 3.8 - 9.9 K/cumm [facility] Hgb 8.0(L) 13.0 - 17.5 g/dL [facility] Hct 23.9(L) 38.9 - 50.3 % [facility] Plt 136(L) 150 - 400 K/cumm [facility] MPV 12.6(H) 9.1 - 12.3 fL [facility] RBC 2.74(L) 4.30 - 5.80 M/cumm [facility] MCV 87.2 81.3 - 96.4 fL [facility] MCH 29.2 27.1 - 33.3 pg [facility] MCHC 33.5 32.3 - 35.7 g/dL [facility] RDW CV 14.7 11.1 - 14.9 % [facility] RDW SD 47.2 35.7 - 48.1 fL [facility] NRBC abs 0.00 0.00 - 0.01 K/cumm [facility] Blood specimen (specimen) 06/24/2020 11:27 AM DISTRICT SUPERVISOR 06/24/2020 11:49 AM DISTRICT SUPERVISOR us David Jones PRINT DECORATOR LAB BLOOD ORDERABLES Final Result [facility] Department [place] [address] * POCT glucose (06/24/2020 11:26 AM DISTRICT SUPERVISOR) Pathologist [facility] Glucose, POC 146 70 - 199 mg/dL [facility] Blood specimen (specimen) 06/24/2020 11:26 AM DISTRICT SUPERVISOR 06/24/2020 11:26 AM DISTRICT SUPERVISOR us Felton Chiu MD LAB POCT ORDERABLES - DEVICE Fin al Result Performing Organization Address City/[facility]/ZIP Co de Phone Number [facility] Department [place] [address] * Basic metabolic panel (06/24/2020 11:26 AM DISTRICT SUPERVISOR) Sodium 143 135 - 145 mmol/L [facility] Potassium, pl 4.5 3.3 - 4.9 mmol/L [facility] Chloride 108 97 - 110 mmol/L [facility] CO2 26 22 - 32 mmol/L [facility] Anion gap 9 2 - 15 mmol/L [facility] BUN 17 8 - 25 mg/dL [facility] Creatinine 1.07 0.80 - 1.30 mg/dL [facility] Glucose 145 70 - 199 mg/dL [facility] Comment: Interpretive Data Fasting glucose >/= 126 [...] interpretive data was last revised 2017. Calcium 8.8 8.5 - 10.3 mg/dL [facility] Blood specimen (specimen) 06/24/2020 11:26 AM DISTRICT SUPERVISOR 06/24/2020 11:49 AM DISTRICT SUPERVISOR us David Jones PRINT DECORATOR LAB BLOOD ORDERABLES Final Result Performing Organization Address [facility]/ZIP Co de Phone Number [facility] Department [place] [address] * POCT glucose (06/24/2020 8:08 AM DISTRICT SUPERVISOR) Glucose, POC 137 70 - 199 mg/dL [facility] Blood specimen (specimen) 06/24/2020 8:08 AM DISTRICT SUPERVISOR 06/24/2020 8:08 AM DISTRICT SUPERVISOR us Felton Chiu MD LAB POCT ORDERABLES - DEVICE Fin al Result Performing Organization Address City/State/[facility] [place] [address] * POCT glucose (06/24/2020 6:18 AM DISTRICT SUPERVISOR) Glucose, POC 119 70 - 199 mg/dL [facility] Blood specimen (specimen) 06/24/2020 6:18 AM DISTRICT SUPERVISOR 06/24/2020 6:18 AM DISTRICT SUPERVISOR Felton Chiu MD LAB POCT ORDERABLES - DEVICE Fin al Result Performing Organization Address [facility] [place] [address] * POCT glucose (06/24/2020 5:29 AM DISTRICT SUPERVISOR) Glucose, POC 121 70 - 199 mg/dL [facility] Blood specimen (specimen) 06/24/2020 5:29 AM DISTRICT SUPERVISOR 06/24/2020 5:29 AM DISTRICT SUPERVISOR Felton Chiu MD LAB POCT ORDERABLES - DEVICE Fin al Result Performing Organization Address City/[facility]/[place] [address] * POCT glucose (06/24/2020 4:31 AM DISTRICT SUPERVISOR) Glucose, POC 135 70 - 199 mg/dL [facility] Blood specimen (specimen) 06/24/2020 4:31 AM DISTRICT SUPERVISOR 06/24/2020 4:31 AM DISTRICT SUPERVISOR Felton Chiu MD LAB POCT ORDERABLES - DEVICE Fin al Result Performing Organization Address City/[facility] Co de Phone Number [facility] [place] [address] * POCT glucose (06/24/2020 2:20 AM DISTRICT SUPERVISOR) Glucose, POC 177 70 - 199 mg/dL [facility] Blood specimen (specimen) 06/24/2020 2:20 AM DISTRICT SUPERVISOR 06/24/2020 2:20 AM DISTRICT SUPERVISOR Result [facility] Felton Chiu MD LAB POCT ORDERABLES - DEVICE Fin al Result Performing Organization Address [facility] Co de Phone Number [facility] Department [place] [address] * Magnesium (06/24/2020 2:04 AM DISTRICT SUPERVISOR) Pathologist [facility] Magnesium 2.3 1.4 - 2.5 mg/dL [facility] Blood specimen (specimen) 06/24/2020 2:04 AM DISTRICT SUPERVISOR 06/24/2020 2:15 AM DISTRICT SUPERVISOR Felton Chiu MD LAB BLOOD ORDERABLES Final Resul t Performing Organization Address [facility] de Phone Number [facility] Department [place] [address] * (ABNORMAL) Lactate, whole blood (06/24/2020 2:04 AM DISTRICT SUPERVISOR) Pathologist [facility] Lactate, bld 3.3(H) 0.7 - 2.0 mmol/L [facility] Blood specimen (specimen) 06/24/2020 2:04 AM DISTRICT SUPERVISOR 06/24/2020 2:15 AM DISTRICT SUPERVISOR Chino Sanders MD LAB BLOOD ORDERABLES Final Result Performing Organization Address [facility] Co de Phone Number [facility] [place] [address] * (ABNORMAL) Calcium, ionized (06/24/2020 2:04 AM DISTRICT SUPERVISOR) Calcium, Ionized 4.48(L) 4.50 - 5.10 mg/dL [facility] Blood specimen (specimen) 06/24/2020 2:04 AM DISTRICT SUPERVISOR 06/24/2020 2:15 AM DISTRICT SUPERVISOR Chino Sanders MD LAB BLOOD ORDERABLES Final Result Performing Organization Address [facility] Co de Phone Number [facility] [place] [address] * Oxyhemoglobin, pulmonary artery (06/24/2020 2:04 AM DISTRICT SUPERVISOR) Oxyhemoglobin, PA 60.4 % [facility] Comment: Interpretive Data No reference range established. Current interpretive data was last revised 2019. Blood specimen (specimen) 06/24/2020 2:04 AM DISTRICT SUPERVISOR 06/24/2020 2:14 AM DISTRICT SUPERVISOR Result [facility] Fabi Handy NP LAB BLOOD ORDERABLES Final Result Performing Organization Address [facility] [place] [address] * Potassium, whole blood (06/24/2020 2:04 AM DISTRICT SUPERVISOR) Potassium, bld 4.5 3.3 - 4.9 mmol/L [facility] Comment: Interpretive Data Unable to assess hemolysis. ??Invitro hemolysis causes falsely elevated potassium. Current Interpretive Data was last revised on 2019. Blood specimen (specimen) 06/24/2020 2:04 AM DISTRICT SUPERVISOR 06/24/2020 2:15 AM DISTRICT SUPERVISOR Fabi Handy NP LAB BLOOD ORDERABLES Final Result Performing Organization Address [facility] [place] [address] * Phosphorus (06/24/2020 2:04 AM DISTRICT SUPERVISOR) Phosphorus, pl 4.0 2.3 - 4.5 mg/dL [facility] Blood specimen (specimen) 06/24/2020 2:04 AM DISTRICT SUPERVISOR 06/24/2020 2:15 AM DISTRICT SUPERVISOR Fabi Handy PRINT DECORATOR LAB BLOOD ORDERABLES Final Result Performing Organization Address [facility] Co de Phone Number [facility] Department [place] [address] * Basic metabolic panel (06/24/2020 2:04 AM DISTRICT SUPERVISOR) Pathologist [facility] Sodium 144 135 - 145 mmol/L [facility] Potassium, pl 4.9 3.3 - 4.9 mmol/L [facility] Chloride 110 97 - 110 mmol/L [facility] CO2 24 22 - 32 mmol/L [facility] Anion gap 10 2 - 15 mmol/L [facility] BUN 15 8 - 25 mg/dL [facility] Creatinine 1.02 0.80 - 1.30 mg/dL [facility] Glucose 167 70 - 199 mg/dL [facility] Comment: Interpretive Data Fasting glucose >/= 126 [...] interpretive data was last revised 2017. Calcium 8.6 8.5 - 10.3 mg/dL [facility] Blood specimen (specimen) 06/24/2020 2:04 AM DISTRICT SUPERVISOR 06/24/2020 2:15 AM DISTRICT SUPERVISOR Fabi Handy PRINT DECORATOR LAB BLOOD ORDERABLES Final Result Performing Organization Address [facility]/ZIP Co de Phone Number [facility] Department [place] [address] * (ABNORMAL) CBC without differential (06/24/2020 2:04 AM DISTRICT SUPERVISOR) WBC 13.7(H) 3.8 - 9.9 K/cumm [facility] Hgb 8.2(L) 13.0 - 17.5 g/dL [facility] Hct 24.3(L) 38.9 - 50.3 % [facility] Plt 166 150 - 400 K/cumm [facility] MPV 11.9 9.1 - 12.3 fL [facility] RBC 2.87(L) 4.30 - 5.80 M/cumm [facility] MCV 84.7 81.3 - 96.4 fL [facility] MCH 28.6 27.1 - 33.3 pg [facility] MCHC 33.7 32.3 - 35.7 g/dL [facility] RDW CV 14.4 11.1 - 14.9 % [facility] RDW SD 44.6 35.7 - 48.1 fL [facility] NRBC abs 0.00 0.00 - 0.01 K/cumm [facility] Blood specimen (specimen) 06/24/2020 2:04 AM DISTRICT SUPERVISOR 06/24/2020 2:22 AM DISTRICT SUPERVISOR us Fabi Handy PRINT DECORATOR LAB BLOOD ORDERABLES Final Result Performing Organization Address [facility] Co de Phone Number [facility] Department [place] [address] * POCT glucose (06/24/2020 12:12 AM DISTRICT SUPERVISOR) Glucose, POC 158 70 - 199 mg/dL [facility] Blood specimen (specimen) 06/24/2020 12:12 AM DISTRICT SUPERVISOR 06/24/2020 12:12 AM DISTRICT SUPERVISOR us Felton Chiu MD LAB POCT ORDERABLES - DEVICE Fin al Result [facility] [place] [address] * POCT glucose (06/23/2020 11:21 PM DISTRICT SUPERVISOR) Glucose, POC 167 70 - 199 mg/dL [facility] Blood specimen (specimen) 06/23/2020 11:21 PM DISTRICT SUPERVISOR 06/23/2020 11:21 PM DISTRICT SUPERVISOR Felton Chiu MD LAB POCT ORDERABLES - DEVICE Fin al Result Performing Organization Address [facility] Co de Phone Number [facility] [place] [address] * POCT glucose (06/23/2020 10:16 PM DISTRICT SUPERVISOR) Glucose, POC 175 70 - 199 mg/dL [facility] Blood specimen (specimen) 06/23/2020 10:16 PM DISTRICT SUPERVISOR 06/23/2020 10:16 PM DISTRICT SUPERVISOR Felton Chiu MD LAB POCT ORDERABLES - DEVICE Fin al Result Performing Organization Address City/[facility]/ZIP Co de Phone Number [facility] [place] [address] * Critical Result Callback Chemistry (06/23/2020 9:01 PM DISTRICT SUPERVISOR) Date Notified [id number] [facility] Time Notified 2111 [facility] TestName Lactate Whole Blood [facility] Called/Read Back Manuela [facility] Credentials RN [facility] Called By ajay [facility] Blood specimen (specimen) 06/23/2020 9:01 PM DISTRICT SUPERVISOR 06/23/2020 9:06 PM DISTRICT SUPERVISOR Manuel Colorado NP LAB BLOOD ORDERABLE S Final Result Performing Organization Address City/[facility] Co de Phone Number [facility] [place] [address] * (ABNORMAL) Lactate, whole blood (06/23/2020 9:01 PM DISTRICT SUPERVISOR) [facility] Lactate, bld 5.2(C) 0.7 - 2.0 mmol/L [facility] Blood specimen (specimen) 06/23/2020 9:01 PM DISTRICT SUPERVISOR 06/23/2020 9:06 PM DISTRICT SUPERVISOR Manuel Colorado NP LAB BLOOD ORDERABLE S Final Result Performing Organization Address [facility] de Phone Number [facility] [place] [address] * (ABNORMAL) Blood gas, arterial (06/23/2020 9:01 PM DISTRICT SUPERVISOR) [facility] pH, Art 7.38 7.35 - 7.45 [facility] PCO2, Arterial 35 35 - 45 mmHg [facility] PO2, Arterial 117(H) 83 - 108 mmHg [facility] HCO3 Art (Calculated) 21 20 - 30 mmol/L [facility] BE, art -4 mmol/L [facility] Comment: Interpretive Data No Reference Range Established Current Interpretive Data was last revised on 2017 O2 Sat Art (Measured) 99(H) 90 - 95 % [facility] Blood specimen (specimen) 06/23/2020 9:01 PM DISTRICT SUPERVISOR 06/23/2020 9:06 PM DISTRICT SUPERVISOR us Fabi Handy PRINT DECORATOR LAB BLOOD ORDERABLES Final Result Performing Organization Address [facility] Co de Phone Number [facility] [place] [address] * POCT glucose (06/23/2020 8:59 PM DISTRICT SUPERVISOR) [facility] Glucose, POC 197 70 - 199 mg/dL [facility] Blood specimen (specimen) 06/23/2020 8:59 PM DISTRICT SUPERVISOR 06/23/2020 8:59 PM DISTRICT SUPERVISOR us Felton Cihu MD LAB POCT ORDERABLES - DEVICE Fin al Result [facility] Department [place] [address] * XR Chest 1 View Portable (06/23/2020 8:24 PM DISTRICT SUPERVISOR) Anatomical Region Laterality Modality Body, Chest N/A Computed Radiogr aphy 06/24/2020 9:31 AM DISTRICT SUPERVISOR Impressions 06/24/2020 10:11 AM DISTRICT SUPERVISOR The current study is compared with the prior radiograph dated 06/23/2020 4:31 PM. Interval removal of the endotracheal tube. Median sternotomy wires are aligned and intact. Epicardial pacing wires are again noted. Right internal jugular central venous catheter tip overlies the right atrium. Right internal jugular [place]-Preet catheter tip overlies the main pulmonary artery. Mediastinal drain and pericardial drain are noted. Aortic valve replacement is noted. Minimal bibasilar atelectasis. No pleural effusion or pneumothorax. Cardiomediastinal silhouette is stable. Dictated by: Carol Tyler M.D. The radiology attending physician has personally reviewed this study, and had reviewed and/or edited this written report and agrees with it. Electronically signed by: Pipe Mercedes M.D. Narrative 06/24/2020 10:11 AM DISTRICT SUPERVISOR EXAMINATION: 1 view chest radiograph Procedure Note Pipe Mercedes MD - 06/24/2020 EXAMINATION: 1 view chest radiograph IMPRESSION: The current study is compared with the prior radiograph dated 06/23/2020 4:31 PM. Interval removal of the endotracheal tube. Median sternotomy wires are aligned and intact. Epicardial pacing wires are again noted. Right internal jugular central venous catheter tip overlies the right atrium. Right internal jugular [place]-Preet catheter tip overlies the main pulmonary artery. Mediastinal drain and pericardial drain are noted. Aortic valve replacement is noted. Minimal bibasilar atelectasis. No pleural effusion or pneumothorax. Cardiomediastinal silhouette is stable. Dictated by: Carol Tyler M.D. The radiology attending physician has personally reviewed this study, and had reviewed and/or edited this written report and agrees with it. Electronically signed by: Pipe Mercedes M.D. us Fabi Handy PRINT DECORATOR IMG XR PROCEDURES Final Re sult * (ABNORMAL) POC Blood Gas and Chemistries, Arterial - (06/23/2020 7:01 PM DISTRICT SUPERVISOR) pH, Art POC 7.38 7.35 - 7.45 [facility] pCO2, Art POC 36 35 - 45 mmHg [facility] pO2, Art POC 82(L) 83 - 108 mmHg [facility] Na, POC 142 135 - 145 mmol/L [facility] K POC 4.9 3.3 - 4.9 mmol/L [facility] Comment: Interpretive Data Unable to assess hemolysis. ??Invitro hemolysis causes falsely elevated potassium. Current Interpretive Data was last revised on 2019. Cl, POC 108 97 - 110 mmol/L [facility] Ionized Ca, POC 4.68 4.50 - 5.10 mg/dL [facility] Glucose, POC 182 70 - 199 mg/dL [facility] Lactate, POC 4.4(C) 0.7 - 2.2 mmol/L [facility] SO2 (miguelangel) arterial 99(H) 90 - 95 % [facility] Base excess, POC -3.3 mmol/L [facility] HCO3, Art POC 21 20 - 30 mmol/L [facility] Hct, POC 28.0(L) 41.4 - 51.6 % [facility] O2 Sat, Art POC (Calc) 96 % [facility] Total Hb, POC 9.2(L) 13.8 - 17.2 g/dL [facility] Blood specimen (specimen) 06/23/2020 7:01 PM DISTRICT SUPERVISOR 06/23/2020 7:01 PM DISTRICT SUPERVISOR us Felton Chiu MD LAB POCT ORDERABLES - DEVICE Fin al Result [facility] Department [place] [address] * Critical Care (06/23/2020 4:59 PM DISTRICT SUPERVISOR) Narrative Kenny Lewis MD - 06/23/2020 4:59 PM DISTRICT SUPERVISOR Manuel Colorado NP ? 06/23/2020 ??7:12 PM Critical Care Performed by: Manuel Colorado NP Authorized by: Manuel Colorado NP CRITICAL CARE: ??Team: ??CCA ??Shift: ??AM ??Level of Billing: ??Critical Care ??My time spent with this patient was 120 minutes: Critical Provider Statement: I have seen and examined the patient on this day of service. I have reviewed and confirmed the history, physical exam, laboratory and radiologic data as documented in the signed ICU note. I have reviewed and discussed my treatment plan with the ICU team and other medical/strategic consultant staff, making frequent assessments and decisions regarding this patient's complex medical care. Critical Care time was exclusive of time spent performing separately billed procedures, treating other patients, and teaching. This time was in addition to and separate from critical care provided by other practitioners in my group on this day of service. Critical Care was necessary to treat or prevent imminent or life-threatening deterioration of the following conditions: ? Acute pain/acute postoperative pain ?? Myocardial stunning ?? Acute respiratory failure following procedure/surgery ?? Acute blood loss anemia and Thrombocytopenia ?? Leukocytosis ??This time was spent by me doing the following: ? Acute pain control ?? Cardiac pacing, Initiation/active titration of inotropic medications and Initiation/active titration of vasoactive medications ?? Active and frequent reassessment of respiratory status and oxygen requirements and Invasive ventilator management, reassessment, and titration ?? Active and frequent monitoring of intake/output and volumen status ?? Empiric broad coverage antibiotics ?? I spent time reviewing and interpreting data from bedside monitors, laboratory results, and imaging, I spent time documenting in the medical record and I spent time discussing the management of this critically ill patient with consultants and the medical staff us Manuel Colorado PRINT DECORATOR IN CLINIC/BEDSIDE O RDERABLES Final Result * XR Chest 1 View (06/23/2020 4:58 PM DISTRICT SUPERVISOR) Anatomical Region Laterality Modality Body, Chest N/A Computed Radiogr aphy 06/23/2020 5:32 PM DISTRICT SUPERVISOR Impressions 06/23/2020 5:43 PM DISTRICT SUPERVISOR Interval intubation. Median sternotomy wires are now in place. A right internal jugular central venous catheter is in place, with tip at the cavoatrial junction. A right internal jugular [place]-Preet catheter is in place, with tip in the right pulmonary artery. Bilateral thoracostomy tubes are in place. A mediastinal and a pericardial drain are in place. Aortic valve replacement is noted. Lung volumes are small with bibasilar atelectasis. No definite pleural effusion. No pneumothorax. Cardiomediastinal silhouette in keeping with post surgical changes. Dictated by: Joaquin Latham M.D. The radiology attending physician has personally reviewed this study, and had reviewed and/or edited this written report and agrees with it. Electronically signed by: Pipe Mercedes M.D. Narrative 06/23/2020 5:43 PM DISTRICT SUPERVISOR EXAMINATION: XR CHEST 1 VIEW 06/23/2020 3:55 PM DEMOGRAPHICS: Male; 74 years old. COMPARISON: 06/17/2020 Procedure Note Piep Mercedes MD - 06/23/2020 EXAMINATION: XR CHEST 1 VIEW 06/23/2020 3:55 PM DEMOGRAPHICS: Male; 74 years old. COMPARISON: 06/17/2020 IMPRESSION: Interval intubation. Median sternotomy wires are now in place. A right internal jugular central venous catheter is in place, with tip at the cavoatrial junction. A right internal jugular [place]-Preet catheter is in place, with tip in the right pulmonary artery. Bilateral thoracostomy tubes are in place. A mediastinal and a pericardial drain are in place. Aortic valve replacement is noted. Lung volumes are small with bibasilar atelectasis. No definite pleural effusion. No pneumothorax. Cardiomediastinal silhouette in keeping with post surgical changes. Dictated by: Joaquin Latham M.D. The radiology attending physician has personally reviewed this study, and had reviewed and/or edited this written report and agrees with it. Electronically signed by: Pipe Mercedes M.D. us Fabi Handy PRINT DECORATOR IMG XR PROCEDURES Final Re sult * XR Abdomen AP 1 View - KUB (06/23/2020 4:58 PM DISTRICT SUPERVISOR) Anatomical Region Laterality Modality Body, Abdomen N/A Computed Radiogr aphy 06/24/2020 8:55 AM DISTRICT SUPERVISOR Impressions 06/24/2020 11:47 AM DISTRICT SUPERVISOR A single view of the abdomen is submitted for evaluation. No gastric tube is seen. Partially visualized chest tubes and epicardial pacer wires are noted. The hemidiaphragms are excluded from the [id number]. No dilated loops of bowel are seen in the visualized abdomen. Dictated by: Derek Gautam M.D. The radiology attending physician has personally reviewed this study, and had reviewed and/or edited this written report and agrees with it. Electronically signed by: Tanika Harris M.D. Narrative 06/24/2020 11:47 AM DISTRICT SUPERVISOR EXAMINATION: Abdomen, one view. HISTORY: Orogastric tube placement COMPARISON: Chest radiograph dated 06/23/2020 at 4:31 PM. Procedure Note Tanika Harris MD - 06/24/2020 EXAMINATION: Abdomen, one view. HISTORY: Orogastric tube placement COMPARISON: Chest radiograph dated 06/23/2020 at 4:31 PM. IMPRESSION: A single view of the abdomen is submitted for evaluation. No gastric tube is seen. Partially visualized chest tubes and epicardial pacer wires are noted. The hemidiaphragms are excluded from the [id number]. No dilated loops of bowel are seen in the visualized abdomen. Dictated by: Derek Gautam M.D. The radiology attending physician has personally reviewed this study, and had reviewed and/or edited this written report and agrees with it. Electronically signed by: Tanika Harris M.D. us Fabi Handy PRINT DECORATOR IMG XR PROCEDURES Final Re sult * POCT glucose (06/23/2020 4:47 PM DISTRICT SUPERVISOR) Glucose, POC 157 70 - 199 mg/dL [facility] Blood specimen (specimen) 06/23/2020 4:47 PM DISTRICT SUPERVISOR 06/23/2020 4:47 PM DISTRICT SUPERVISOR Felton Chiu MD LAB POCT ORDERABLES - DEVICE Fin al Result [facility] Department [place] [address] * ECG 12 lead (06/23/2020 4:29 PM DISTRICT SUPERVISOR) [facility] Ventricular Rate EKG/Min 78 BPM [facility] Atrial Rate 78 BPM [facility] NC-Interval (MSEC) 142 ms [facility] QRS-Interval (MSEC) 100 ms [facility] QT-Interval (MSEC) 444 ms [facility] QTc 506 ms [facility] P Rand 64 degrees [facility] R Rand -6 degrees [facility] T Rand 35 degrees [facility] Diagnosis Normal sinus rhythm Junctional ST depression, probably normal Prolonged QT Abnormal ECG When compared with ECG of 17-JUN-2020 16:50, (unconfirmed) ST elevation now present in Inferior leads ST more depressed in Lateral leads QT has lengthened Confirmed by GERBER MIRZA M.D ([id number]) on 06/24/2020 10:09:13 PM [facility] 06/23/2020 4:29 PM DISTRICT SUPERVISOR 06/24/2020 10:09 PM DISTRICT SUPERVISOR Fabi Handy PRINT DECORATOR ECG ORDERABLES Final Resu lt [facility] * POCT glucose (06/23/2020 4:12 PM DISTRICT SUPERVISOR) Glucose, POC 170 70 - 199 mg/dL [facility] Blood specimen (specimen) 06/23/2020 4:12 PM DISTRICT SUPERVISOR 06/23/2020 4:12 PM DISTRICT SUPERVISOR Felton Chiu MD LAB POCT ORDERABLES - DEVICE Fin al Result Performing Organization Address [facility]/ZIP Co de Phone Number [facility] [place] [address] * Critical Result Callback Chemistry (06/23/2020 4:10 PM DISTRICT SUPERVISOR) Date Notified 20200623 [facility] Time Notified 1655 [facility] TestName Lactate Whole Blood [facility] Called/Read Back Debbie CORTEZ [facility] Credentials RN [facility] Called By NOREEN CORTEZ [facility] Blood specimen (specimen) 06/23/2020 4:10 PM DISTRICT SUPERVISOR 06/23/2020 4:19 PM DISTRICT SUPERVISOR Felton Chiu MD LAB BLOOD ORDERABLES Final Resul t Performing Organization Address [facility] de Phone Number [facility] [place] [address] * (ABNORMAL) Lactate, whole blood (06/23/2020 4:10 PM DISTRICT SUPERVISOR) Lactate, bld 4.9(C) 0.7 - 2.0 mmol/L [facility] Blood specimen (specimen) 06/23/2020 4:10 PM DISTRICT SUPERVISOR 06/23/2020 4:19 PM DISTRICT SUPERVISOR Felton Chiu MD LAB BLOOD ORDERABLES Final Resul t Performing Organization Address [facility] [place] [address] * (ABNORMAL) Blood gas, arterial (06/23/2020 4:10 PM DISTRICT SUPERVISOR) pH, Art 7.29(L) 7.35 - 7.45 [facility] PCO2, Arterial 40 35 - 45 mmHg [facility] PO2, Arterial 188(H) 83 - 108 mmHg [facility] HCO3 Art (Calculated) 20 20 - 30 mmol/L [facility] BE, art -7 mmol/L [facility] Comment: Interpretive Data No Reference Range Established Current Interpretive Data was last revised on 2017 O2 Sat Art (Measured) 100(H) 90 - 95 % [facility] Blood specimen (specimen) 06/23/2020 4:10 PM DISTRICT SUPERVISOR 06/23/2020 4:19 PM DISTRICT SUPERVISOR Fabi Handy NP LAB BLOOD ORDERABLES Final Result Performing Organization Address [facility] de Phone Number [facility] of [employer] [place] [address] * (ABNORMAL) Protime-INR (06/23/2020 4:10 PM DISTRICT SUPERVISOR) Pathologist [facility] PT 14.7(H) 9.5 - 13.6 sec [facility] INR 1.3(H) 0.9 - 1.2 [facility] Comment: Interpretive data Oral anticoagulant therapeutic ranges: Venous thromboembolism prophylaxis or treatment: 2.0-3.0 CARDIOLOGY Standard range: 2.0-3.0 High-intensity range: 2.5-3.5 Refer to indication-specific guidelines for appropriate target ranges for prosthetic heart valve replacement. Current interpretive data was last revised on 2019. Blood specimen (specimen) 06/23/2020 4:10 PM DISTRICT SUPERVISOR 06/23/2020 4:25 PM DISTRICT SUPERVISOR Fabi Handy NP LAB BLOOD ORDERABLES Final Result Performing Organization Address [facility] de Phone Number [facility] [place] [address] * Phosphorus (06/23/2020 4:10 PM DISTRICT SUPERVISOR) Phosphorus, pl 4.5 2.3 - 4.5 mg/dL [facility] Blood specimen (specimen) 06/23/2020 4:10 PM DISTRICT SUPERVISOR 06/23/2020 4:19 PM DISTRICT SUPERVISOR Fabi Handy PRINT DECORATOR LAB BLOOD ORDERABLES Final Result Performing Organization Address [facility] [place] [address] * Magnesium (06/23/2020 4:10 PM DISTRICT SUPERVISOR) [facility] Magnesium 2.5 1.4 - 2.5 mg/dL [facility] Blood specimen (specimen) 06/23/2020 4:10 PM DISTRICT SUPERVISOR 06/23/2020 4:19 PM DISTRICT SUPERVISOR Fabi Handy PRINT DECORATOR LAB BLOOD ORDERABLES Final Result Performing Organization Address [facility] [place] [address] * Potassium, whole blood (06/23/2020 4:10 PM DISTRICT SUPERVISOR) [facility] Potassium, bld 4.2 3.3 - 4.9 mmol/L [facility] Comment: Interpretive Data Unable to assess hemolysis. ??Invitro hemolysis causes falsely elevated potassium. Current Interpretive Data was last revised on 2019. Blood specimen (specimen) 06/23/2020 4:10 PM DISTRICT SUPERVISOR 06/23/2020 4:19 PM DISTRICT SUPERVISOR Fabi Handy PRINT DECORATOR LAB BLOOD ORDERABLES Final Result Performing Organization Address [facility] [place] [address] * (ABNORMAL) Calcium, ionized (06/23/2020 4:10 PM DISTRICT SUPERVISOR) [facility] Calcium, Ionized 4.44(L) 4.50 - 5.10 mg/dL [facility] Blood specimen (specimen) 06/23/2020 4:10 PM DISTRICT SUPERVISOR 06/23/2020 4:19 PM DISTRICT SUPERVISOR us Fabi Handy PRINT DECORATOR LAB BLOOD ORDERABLES Final Result Performing Organization Address [facility]/ZIP Co de Phone Number [facility] Department [place] [address] * (ABNORMAL) Basic metabolic panel (06/23/2020 4:10 PM DISTRICT SUPERVISOR) [facility] Sodium 144 135 - 145 mmol/L [facility] Potassium, pl 4.5 3.3 - 4.9 mmol/L [facility] Chloride 111(H) 97 - 110 mmol/L [facility] CO2 21(L) 22 - 32 mmol/L [facility] Anion gap 12 2 - 15 mmol/L [facility] BUN 17 8 - 25 mg/dL [facility] Creatinine 1.03 0.80 - 1.30 mg/dL [facility] Glucose 164 70 - 199 mg/dL [facility] Comment: Interpretive Data Fasting glucose >/= 126 [...] interpretive data was last revised 2017. Calcium 8.3(L) 8.5 - 10.3 mg/dL [facility] Blood specimen (specimen) 06/23/2020 4:10 PM DISTRICT SUPERVISOR 06/23/2020 4:19 PM DISTRICT SUPERVISOR Fabi Handy PRINT DECORATOR LAB BLOOD ORDERABLES Final Result Performing Organization Address City/[facility]/ZIP Co de Phone Number [facility] Department [place] [address] * (ABNORMAL) CBC without differential (06/23/2020 4:10 PM DISTRICT SUPERVISOR) [facility] WBC 15.7(H) 3.8 - 9.9 K/cumm [facility] Hgb 9.3(L) 13.0 - 17.5 g/dL [facility] Hct 28.0(L) 38.9 - 50.3 % [facility] Plt 136(L) 150 - 400 K/cumm [facility] MPV 11.5 9.1 - 12.3 fL [facility] RBC 3.16(L) 4.30 - 5.80 M/cumm [facility] MCV 88.6 81.3 - 96.4 fL [facility] MCH 29.4 27.1 - 33.3 pg [facility] MCHC 33.2 32.3 - 35.7 g/dL [facility] RDW CV 13.9 11.1 - 14.9 % [facility] RDW SD 45.2 35.7 - 48.1 fL [facility] NRBC abs 0.00 0.00 - 0.01 K/cumm [facility] Blood specimen (specimen) 06/23/2020 4:10 PM DISTRICT SUPERVISOR 06/23/2020 4:25 PM DISTRICT SUPERVISOR Fabi Handy PRINT DECORATOR LAB BLOOD ORDERABLES Final Result Performing Organization Address City/[facility] Co de Phone Number [facility] Department [place] [address] * aPTT (06/23/2020 4:10 PM DISTRICT SUPERVISOR) [facility] aPTT 27 27 - 37 sec [facility] Comment: Interpretive data Heparin therapeutic range: 60-90 seconds Range based on correlation with therapeutic heparin activity range of 0.3-0.7 units/ml. Current interpretive data was last revised on 2019. Blood specimen (specimen) 06/23/2020 4:10 PM DISTRICT SUPERVISOR 06/23/2020 4:25 PM DISTRICT SUPERVISOR us Fabi Handy NP LAB BLOOD ORDERABLES Final Result Performing Organization Address [facility] Co de Phone Number [facility] [place] [address] * Transfuse RBC (06/23/2020 3:16 PM DISTRICT SUPERVISOR) Blood specimen (specimen) us Barb Washington MD BLOOD TRANSFUSION ORDER DAJA Final Result Performing Organization Address [facility] Co de Phone Number [facility] [place] [address] * Transfuse RBC (06/23/2020 3:10 PM DISTRICT SUPERVISOR) Blood specimen (specimen) us Barb Washington MD BLOOD TRANSFUSION ORDER DAJA Final Result Performing Organization Address [facility] Co de Phone Number [facility] [place] [address] * (ABNORMAL) POCT platelet count and hematocrit (06/23/2020 3:07 PM DISTRICT SUPERVISOR) [facility] Hematocrit POC 21.6(L) 40.7 - 50.3 % [facility] Platelet POC 171 140 - 440 K/cumm [facility] Blood specimen (specimen) 06/23/2020 3:07 PM DISTRICT SUPERVISOR 06/23/2020 3:07 PM DISTRICT SUPERVISOR Felton Chiu MD LAB POCT ORDERABLES - DEVICE Fin al Result Performing Organization Address [facility] Co de Phone Number [facility] [place] [address] * (ABNORMAL) POCT prothrombin time (06/23/2020 3:05 PM DISTRICT SUPERVISOR) [facility] PT, POC 23.8(H) 12.1 - 17.0 sec [facility] INR, POC 1.8(H) 1.0 - 1.3 [facility] Blood specimen (specimen) 06/23/2020 3:05 PM DISTRICT SUPERVISOR 06/23/2020 3:05 PM DISTRICT SUPERVISOR Felton Chiu MD LAB POCT ORDERABLES - DEVICE Fin al Result Performing Organization Address [facility] de Phone Number [facility] [place] [address] * POCT Partial thromboplastin time (PTT) (06/23/2020 3:05 PM DISTRICT SUPERVISOR) [facility] APTT, POC 35.3 29.3 - 45.4 sec [facility] Blood specimen (specimen) 06/23/2020 3:05 PM DISTRICT SUPERVISOR 06/23/2020 3:05 PM DISTRICT SUPERVISOR Felton Chiu MD LAB POCT ORDERABLES - DEVICE Fin al Result Performing Organization Address [facility] de Phone Number [facility] [employer] [place] [address] * (ABNORMAL) POC Blood Gas and Chemistries, Arterial - (06/23/2020 3:02 PM DISTRICT SUPERVISOR) [facility] pH, Art POC 7.30(L) 7.35 - 7.45 [facility] pCO2, Art POC 43 35 - 45 mmHg [facility] pO2, Art POC 228(H) 83 - 108 mmHg [facility] Na, POC 144 135 - 145 mmol/L [facility] K POC 4.3 3.3 - 4.9 mmol/L [facility] Comment: Interpretive Data Unable to assess hemolysis. ??Invitro hemolysis causes falsely elevated potassium. Current Interpretive Data was last revised on 2019. Cl, POC 111(H) 97 - 110 mmol/L [facility] Ionized Ca, POC 4.04(L) 4.50 - 5.10 mg/dL [facility] Glucose, POC 169 70 - 199 mg/dL [facility] Lactate, POC 4.7(C) 0.7 - 2.2 mmol/L [facility] SO2 (miguelangel) arterial 100(H) 90 - 95 % [facility] Base excess, POC -5.1 mmol/L [facility] HCO3, Art POC 21 20 - 30 mmol/L [facility] Hct, POC 23.0(L) 41.4 - 51.6 % [facility] O2 Sat, Art POC (Calc) 100 % [facility] Total Hb, POC 7.6(L) 13.8 - 17.2 g/dL [facility] Blood specimen (specimen) 06/23/2020 3:02 PM DISTRICT SUPERVISOR 06/23/2020 3:02 PM DISTRICT SUPERVISOR Felton Chiu MD LAB POCT ORDERABLES - DEVICE Fin al Result Performing Organization Address City/[facility] Co de Phone Number [facility] Department [place] [address] * Transfuse plasma (06/23/2020 2:49 PM DISTRICT SUPERVISOR) Blood specimen (specimen) Barb Washington MD BLOOD TRANSFUSION ORDER DAJA Final Result Performing Organization Address City/[facility] Co de Phone Number [facility] Department [place] [address] * Transfuse plasma (06/23/2020 2:45 PM DISTRICT SUPERVISOR) Blood specimen (specimen) Barb Washington MD BLOOD TRANSFUSION ORDER DAJA Final Result Performing Organization Address [facility] Co de Phone Number [facility] Department [place] [address] * Prepare plasma: 2 Units (06/23/2020 2:26 PM DISTRICT SUPERVISOR) Product code [id number] [facility] Unit Number [id number] [facility] Product Blood Type APOS [facility] Dispense Status PRESUMED TRANSFUSED [facility] Product code [id number] [facility] Unit Number [id number] [facility] Product Blood Type APOS [facility] Dispense Status PRESUMED TRANSFUSED [facility] Blood specimen (specimen) (Blood, Venous) 06/23/2020 2:26 PM DISTRICT SUPERVISOR 06/23/2020 2:26 PM DISTRICT SUPERVISOR Narrative [facility] - 06/24/2020 12:48 AM DISTRICT SUPERVISOR Date required:-20200623 FFP # of Units:-2-Units Reasons:-Active major bleeding with coagulopathy} us Barb Wasihngton MD BLOOD BANK PRODUCT ORDE [facility] Final Result Performing Organization Address City/[facility]/ZIP Co de Phone Number [facility] Department [place] [address] * (ABNORMAL) POCT heparin/ACT CPB (06/23/2020 1:49 PM DISTRICT SUPERVISOR) [facility] Heparin POC 0.0 units/mL [facility] ACT, CPB 100(L) 112 - 174 sec [facility] Blood specimen (specimen) 06/23/2020 1:49 PM DISTRICT SUPERVISOR 06/23/2020 1:49 PM DISTRICT SUPERVISOR us Felton Chiu MD LAB POCT ORDERABLES - DEVICE Fin al Result [facility] [employer] [place] [address] * POCT Partial thromboplastin time (PTT) (06/23/2020 1:48 PM DISTRICT SUPERVISOR) [facility] APTT, POC 32.1 29.3 - 45.4 sec [facility] Blood specimen (specimen) 06/23/2020 1:48 PM DISTRICT SUPERVISOR 06/23/2020 1:48 PM DISTRICT SUPERVISOR Felton Chiu MD LAB POCT ORDERABLES - DEVICE Fin al Result Performing Organization Address [facility] [place] [address] * (ABNORMAL) POCT platelet count and hematocrit (06/23/2020 1:48 PM DISTRICT SUPERVISOR) [facility] Hematocrit POC 27.9(L) 40.7 - 50.3 % [facility] Platelet POC 144 140 - 440 K/cumm [facility] Blood specimen (specimen) 06/23/2020 1:48 PM DISTRICT SUPERVISOR 06/23/2020 1:48 PM DISTRICT SUPERVISOR Felton Chiu MD LAB POCT ORDERABLES - DEVICE Fin al Result Performing Organization Address [facility] [place] [address] * (ABNORMAL) POCT prothrombin time (06/23/2020 1:47 PM DISTRICT SUPERVISOR) [facility] PT, POC 29.6(H) 12.1 - 17.0 sec [facility] INR, POC 2.3(H) 1.0 - 1.3 [facility] Blood specimen (specimen) 06/23/2020 1:47 PM DISTRICT SUPERVISOR 06/23/2020 1:47 PM DISTRICT SUPERVISOR Felton Chiu MD LAB POCT ORDERABLES - DEVICE Fin al Result Performing Organization Address [facility] [place] [address] * (ABNORMAL) POC Blood Gas and Chemistries, Arterial - (06/23/2020 1:44 PM DISTRICT SUPERVISOR) [facility] pH, Art POC 7.37 7.35 - 7.45 [facility] pCO2, Art POC 37 35 - 45 mmHg [facility] pO2, Art POC 268(H) 83 - 108 mmHg [facility] Na, POC 141 135 - 145 mmol/L [facility] K POC 4.7 3.3 - 4.9 mmol/L [facility] Comment: Interpretive Data Unable to assess hemolysis. ??Invitro hemolysis causes falsely elevated potassium. Current Interpretive Data was last revised on 2019. Cl, POC 114(H) 97 - 110 mmol/L [facility] Ionized Ca, POC 5.35(H) 4.50 - 5.10 mg/dL [facility] Glucose, POC 170 70 - 199 mg/dL [facility] Lactate, POC 4.0(C) 0.7 - 2.2 mmol/L [facility] SO2 (miguelangel) arterial 100(H) 90 - 95 % [facility] Base excess, POC -3.4 mmol/L [facility] HCO3, Art POC 21 20 - 30 mmol/L [facility] Hct, POC 29.0(L) 41.4 - 51.6 % [facility] O2 Sat, Art POC (Calc) 100 % [facility] Total Hb, POC 9.8(L) 13.8 - 17.2 g/dL [facility] Blood specimen (specimen) 06/23/2020 1:44 PM DISTRICT SUPERVISOR 06/23/2020 1:44 PM DISTRICT SUPERVISOR us Felton Chiu MD LAB POCT ORDERABLES - DEVICE Fin al Result Performing Organization Address City/[facility]/ZIP Co de Phone Number [facility] [place] [address] * Transfuse platelets (06/23/2020 1:43 PM DISTRICT SUPERVISOR) Blood specimen (specimen) us Bashir Meadows MD BLOOD TRANSFUSION ORDERAB LES Final Result Performing Organization Address [facility]/ZIP Co de Phone Number [facility] Department of [employer] [place] [address] * (ABNORMAL) POCT heparin/ACT CPB (06/23/2020 12:52 PM DISTRICT SUPERVISOR) Heparin POC >4.7 units/mL [facility] ACT, CPB 773(H) 112 - 174 sec [facility] Blood specimen (specimen) 06/23/2020 12:52 PM DISTRICT SUPERVISOR 06/23/2020 12:52 PM DISTRICT SUPERVISOR us Felton Chiu MD LAB POCT ORDERABLES - DEVICE Fin al Result [facility] Department [place] [address] * (ABNORMAL) POC Blood Gas and Chemistries, Arterial - (06/23/2020 12:33 PM DISTRICT SUPERVISOR) pH, Art POC 7.36 7.35 - 7.45 [facility] pCO2, Art POC 41 35 - 45 mmHg [facility] pO2, Art POC 364(H) 83 - 108 mmHg [facility] Na, POC 140 135 - 145 mmol/L [facility] K POC 5.4(H) 3.3 - 4.9 mmol/L [facility] Comment: Interpretive Data Unable to assess hemolysis. ??Invitro hemolysis causes falsely elevated potassium. Current Interpretive Data was last revised on 2019. Cl, POC 111(H) 97 - 110 mmol/L [facility] Ionized Ca, POC 4.42(L) 4.50 - 5.10 mg/dL [facility] Glucose, POC 183 70 - 199 mg/dL [facility] Lactate, POC 2.1 0.7 - 2.2 mmol/L [facility] SO2 (miguelangel) arterial 99(H) 90 - 95 % [facility] Base excess, POC -2.2 mmol/L [facility] HCO3, Art POC 23 20 - 30 mmol/L [facility] Hct, POC 29.0(L) 41.4 - 51.6 % [facility] O2 Sat, Art POC (Calc) 100 % [facility] Total Hb, POC 9.8(L) 13.8 - 17.2 g/dL [facility] Blood specimen (specimen) 06/23/2020 12:33 PM DISTRICT SUPERVISOR 06/23/2020 12:33 PM DISTRICT SUPERVISOR Felton Chiu MD LAB POCT ORDERABLES - DEVICE Fin al Result Performing Organization Address [facility] de Phone Number [facility] [employer] [place] [address] * (ABNORMAL) Extrensic thromboelastometry (EXTEM) (06/23/2020 12:12 PM DISTRICT SUPERVISOR) Clotting Time-Extrinsic 73(H) 42 - 60 sec [facility] Clot Formation Time-Extrinsic 90 45 - 131 sec [facility] Angle-Extrinsic 74 65 - 83 Degree [facility] Max Clot Firmness-Extrin sic 64 53 - 75 mm [facility] Lysis 30-Extrinsic 100 85 - 100 % [facility] Blood specimen (specimen) 06/23/2020 12:12 PM DISTRICT SUPERVISOR 06/23/2020 1:51 PM DISTRICT SUPERVISOR Felton Chiu MD LAB BLOOD ORDERABLES Final Resul t Performing Organization Address [facility] Phone Number [facility] [employer] [place] [address] * Thrombocyte inhibited fibrinogen (FIBTEM) (06/23/2020 12:12 PM DISTRICT SUPERVISOR) Pathologist [facility] Maximum Clot Firm-Fibrinogen 18 9 - 29 mm [facility] Blood specimen (specimen) 06/23/2020 12:12 PM DISTRICT SUPERVISOR 06/23/2020 1:51 PM DISTRICT SUPERVISOR Felton Chiu MD LAB BLOOD ORDERABLES Final Resul t Performing Organization Address [facility] de Phone Number [facility] [place] [address] * POCT heparin/ACT CPB (06/23/2020 11:54 AM DISTRICT SUPERVISOR) Heparin POC >4.7 units/mL [facility] Blood specimen (specimen) 06/23/2020 11:54 AM DISTRICT SUPERVISOR 06/23/2020 11:54 AM DISTRICT SUPERVISOR us Felton Chiu MD LAB POCT ORDERABLES - DEVICE Fin al Result [facility] Department [place] [address] * (ABNORMAL) POC Blood Gas and Chemistries, Arterial - (06/23/2020 11:35 AM DISTRICT SUPERVISOR) pH, Art POC 7.36 7.35 - 7.45 [facility] pCO2, Art POC 40 35 - 45 mmHg [facility] pO2, Art POC 387(H) 83 - 108 mmHg [facility] Na, POC 140 135 - 145 mmol/L [facility] K POC 5.5(H) 3.3 - 4.9 mmol/L [facility] Comment: Interpretive Data Unable to assess hemolysis. ??Invitro hemolysis causes falsely elevated potassium. Current Interpretive Data was last revised on 2019. Cl, POC 110 97 - 110 mmol/L [facility] Ionized Ca, POC 4.47(L) 4.50 - 5.10 mg/dL [facility] Glucose, POC 205(H) 70 - 199 mg/dL [facility] Lactate, POC 2.2 0.7 - 2.2 mmol/L [facility] SO2 (miguelangel) arterial 100(H) 90 - 95 % [facility] Base excess, POC -2.7 mmol/L [facility] HCO3, Art POC 23 20 - 30 mmol/L [facility] Hct, POC 33.0(L) 41.4 - 51.6 % [facility] O2 Sat, Art POC (Calc) 100 % [facility] Total Hb, POC 11.0(L) 13.8 - 17.2 g/dL [facility] Blood specimen (specimen) 06/23/2020 11:35 AM DISTRICT SUPERVISOR 06/23/2020 11:35 AM DISTRICT SUPERVISOR Felton Chiu MD LAB POCT ORDERABLES - DEVICE Fin al Result Performing Organization Address [facility] Co de Phone Number [facility] [place] [address] * Prepare platelets: 2 Units (06/23/2020 11:22 AM DISTRICT SUPERVISOR) Product code [id number] [facility] Unit Number [id number] [facility] Product Blood Type APOS [facility] Dispense Status PRESUMED TRANSFUSED [facility] Product code [id number] [facility] Unit Number [id number] [facility] Product Blood Type APOS [facility] Dispense Status RETURNED [facility] Blood specimen (specimen) (Blood, Venous) 06/23/2020 11:22 AM DISTRICT SUPERVISOR 06/23/2020 11:23 AM DISTRICT SUPERVISOR Narrative [facility] - 06/24/2020 12:48 AM DISTRICT SUPERVISOR Are special requirements needed? (all products are leukoreduced)->No Date required:-20200623 PLT # of Units:-2-Units Reasons:-Major active bleeding} Bashir Meadows MD BLOOD BANK PRODUCT ORDERA BLES Final Result Performing Organization Address [facility] Co de Phone Number [facility] Department [place] [address] * (ABNORMAL) POCT heparin/ACT CPB (06/23/2020 11:00 AM DISTRICT SUPERVISOR) Heparin POC 2.7 units/mL [facility] ACT, CPB 455(H) 112 - 174 sec [facility] Blood specimen (specimen) 06/23/2020 11:00 AM DISTRICT SUPERVISOR 06/23/2020 11:00 AM DISTRICT SUPERVISOR Felton Chiu MD LAB POCT ORDERABLES - DEVICE Fin al Result Performing Organization Address [facility] de Phone Number [facility] of [employer] [place] [address] * (ABNORMAL) POCT heparin/ACT CPB (06/23/2020 9:30 AM DISTRICT SUPERVISOR) Heparin POC 4.1 units/mL [facility] ACT, CPB 503(H) 112 - 174 sec [facility] Blood specimen (specimen) 06/23/2020 9:30 AM DISTRICT SUPERVISOR 06/23/2020 9:30 AM DISTRICT SUPERVISOR Felton Chiu MD LAB POCT ORDERABLES - DEVICE Fin al Result Performing Organization Address [facility] de Phone Number [facility] [employer] [place] [address] * POCT heparin dose response, CPB (06/23/2020 7:19 AM DISTRICT SUPERVISOR) Pathologist [facility] Baseline ACT POC 141 112 - 174 sec [facility] Heparin dose response slope POC 92 60 - 195 [facility] Projected Heparin Concentration POC 3.7 units/mL [facility] Blood specimen (specimen) 06/23/2020 7:19 AM DISTRICT SUPERVISOR 06/23/2020 7:19 AM DISTRICT SUPERVISOR eFlton Chiu MD LAB POCT ORDERABLES - DEVICE Fin al Result Performing Organization Address [facility] de Phone Number [facility] [employer] [place] [address] * (ABNORMAL) POC Blood Gas and Chemistries, Arterial - (06/23/2020 7:15 AM DISTRICT SUPERVISOR) pH, Art POC 7.43 7.35 - 7.45 [facility] pCO2, Art POC 44 35 - 45 mmHg [facility] pO2, Art POC 430(H) 83 - 108 mmHg [facility] Na, POC 139 135 - 145 mmol/L [facility] K POC 4.7 3.3 - 4.9 mmol/L [facility] Comment: Interpretive Data Unable to assess hemolysis. ??Invitro hemolysis causes falsely elevated potassium. Current Interpretive Data was last revised on 2019. Cl, POC 107 97 - 110 mmol/L [facility] Ionized Ca, POC 4.92 4.50 - 5.10 mg/dL [facility] Glucose, POC 137 70 - 199 mg/dL [facility] Lactate, POC 1.7 0.7 - 2.2 mmol/L [facility] SO2 (miguelangel) arterial 100(H) 90 - 95 % [facility] Base excess, POC 4.2 mmol/L [facility] HCO3, Art POC 29 20 - 30 mmol/L [facility] Hct, POC 45.0 41.4 - 51.6 % [facility] O2 Sat, Art POC (Calc) 100 % [facility] Total Hb, POC 14.9 13.8 - 17.2 g/dL [facility] Blood specimen (specimen) 06/23/2020 7:15 AM DISTRICT SUPERVISOR 06/23/2020 7:15 AM DISTRICT SUPERVISOR us Felton Chiu MD LAB POCT ORDERABLES - DEVICE Fin al Result [facility] Department [place] [address] * SANDY Add-On for OR (06/23/2020 7:00 AM DISTRICT SUPERVISOR) Narrative [facility] - 06/23/2020 7:00 AM DISTRICT SUPERVISOR Procedure Auto Finalized by Rule: BW CV SANDY ADD-ON FOR OR Please see the Anesthesiologist's Procedure Note for the results. us Bashir Meadows MD CV ECHO PROCEDURES Final Result Performing Organization Address City/[facility]/ZIP Co de Phone Number [facility] * Prepare RBC: 6 Units (06/23/2020 6:06 AM DISTRICT SUPERVISOR) Product code [id number] [facility] Unit Number [id number] [facility] Product Blood Type ANEG [facility] Dispense Status RETURNED [facility] Product code [id number] [facility] Unit Number [id number] [facility] Product Blood Type ANEG [facility] Dispense Status RETURNED [facility] Product code [id number] [facility] Unit Number [id number] [facility] Product Blood Type ANEG [facility] Dispense Status PRESUMED TRANSFUSED [facility] Product code [id number] [facility] Unit Number [id number] [facility] Product Blood Type ANEG [facility] Dispense Status RETURNED [facility] Product code [id number] [facility] Unit Number [id number] [facility] Product Blood Type ANEG [facility] Dispense Status PRESUMED TRANSFUSED [facility] Product code [id number] [facility] Unit Number [id number] [facility] Product Blood Type ANEG [facility] Dispense Status RETURNED [facility] Blood specimen (specimen) 06/23/2020 6:06 AM DISTRICT SUPERVISOR 06/23/2020 6:05 AM DISTRICT SUPERVISOR Narrative [facility] - 06/24/2020 7:25 AM DISTRICT SUPERVISOR Are special requirements needed? (all products are leukoreduced)->No Date required:-20200623 LRRBC # of [id number] Reasons:-Intra-op transfusion} Bashir Meadows MD BLOOD BANK PRODUCT ORDERA BLES Final Result [facility] Department [place] [address] documented in this encounter Visit Diagnoses Diagnosis Severe aortic stenosis- Primary Aortic valve disorders Aortic valve stenosis Aortic valve disorders HLD (hyperlipidemia) Other and unspecified hyperlipidemia Hypertension, essential Unspecified essential hypertension Coronary artery disease without angina pectoris Acute postoperative anemia due to expected blood loss Atrial fibrillation (CMS/HCC) (HCC) Atrial fibrillation documented in this encounter Administered Medications Inactive Administered Medications - up to 3 most recent administrations Medication Order MAR Action Action Date Dose Rate Site acetaminophen (TYLENOL) tablet 1,000 mg 1,000 mg, oral, Every 6 hours scheduled, First dose on Destini 06/23/20 at 1830, For 2 days Given 06/24/2020 6:02 PM DISTRICT SUPERVISOR 1,000 mg Given 06/24/2020 11:27 AM DISTRICT SUPERVISOR 1,000 mg Given 06/24/2020 6:54 AM DISTRICT SUPERVISOR 1,000 mg acetaminophen (TYLENOL) tablet 1,000 mg 1,000 mg, oral, Every 6 hours scheduled, First dose (after last modification) on 06/25/20 at 0000, For 3 days Given 06/26/2020 5:56 PM DISTRICT SUPERVISOR 1,000 mg Given 06/26/2020 11:39 AM DISTRICT SUPERVISOR 1,000 mg Given 06/26/2020 4:07 AM DISTRICT SUPERVISOR 1,000 mg acetaminophen (TYLENOL) tablet 650 mg 650 mg, oral, Every 4 hours PRN, 1st line for pain, Starting on 06/27/20 at 0745 Given 06/27/2020 8:18 PM DISTRICT SUPERVISOR 650 mg Given 06/27/2020 12:21 PM DISTRICT SUPERVISOR 650 mg Given 06/27/2020 8:19 AM DISTRICT SUPERVISOR 650 mg albumin 5 % bottle 250 mL 250 mL, intravenous, Once, On 06/25/20 at 0230, For 1 dose, Indications: 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)Indications: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) Given 06/25/2020 2:01 AM DISTRICT SUPERVISOR 250 mL amiodarone (NEXTERONE) 150 mg/100 mL (1.5 mg/mL) in dextrose (premix) 150 mg 150 mg, intravenous, at 600 mL/hr, Administer over 10 Minutes, Once, On 06/25/20 at 0130, For 1 dose, Use filter 0.22 micron or less New Bag 06/25/2020 1:05 AM DISTRICT SUPERVISOR 150 mg 600 mL/hr amiodarone (NEXTERONE) 150 mg/100 mL (1.5 mg/mL) in dextrose (premix) 150 mg 150 mg, intravenous, at 600 mL/hr, Administer over 10 Minutes, Once, On 06/25/20 at 0200, For 1 dose, Use filter 0.22 micron or less New Bag 06/25/2020 1:36 AM DISTRICT SUPERVISOR 150 mg 600 mL/hr amiodarone (NEXTERONE) 150 mg/100 mL (1.5 mg/mL) in dextrose (premix) 150 mg 150 mg, intravenous, at 600 mL/hr, Administer over 10 Minutes, Once, On Sat06/25/20 at 0730, For 1 dose, Use filter 0.22 micron or less New Bag 06/25/2020 7:25 AM DISTRICT SUPERVISOR 150 mg 600 mL/hr Rate/Dose Verify 06/25/2020 7:24 AM DISTRICT SUPERVISOR 600 mL/ hr amiodarone (PACERONE) tablet 400 mg 400 mg, oral, 3 times daily, First dose on Sat06/25/20 at 0200, Indications: arrythmiaIndications:arrythmia Given 06/27/2020 8:17 PM DISTRICT SUPERVISOR 400 mg Given 06/27/2020 5:10 PM DISTRICT SUPERVISOR 400 mg Given 06/27/2020 8:16 AM DISTRICT SUPERVISOR 400 mg amiodarone (PACERONE) tablet 400 mg 400 mg, oral, Daily, First dose (after last modification) on Sat06/28/20 at 0700, Indications: arrythmiaIndications:arrythmia Given 06/28/2020 6:[address] 400 mg aspirin enteric coated tablet 81 mg 81 mg, oral, Daily, First dose on Sat06/24/20 at 0900, Do not crush, chew, cut, dissolve, open or otherwise manipulate tablet/capsule. Given 06/28/2020 9:46 AM DISTRICT SUPERVISOR 81 mg Given 06/27/2020 8:15 AM DISTRICT SUPERVISOR 81 mg Given 06/26/2020 8:24 AM DISTRICT SUPERVISOR 81 mg aspirin suppository 300 mg 300 mg, rectal, Once, On Destini 06/23/20 at 1715, For 1 dose Given 06/23/2020 4:54 PM DISTRICT SUPERVISOR 300 mg atorvastatin (LIPITOR) tablet 80 mg 80 mg, oral, Daily, First dose on Sat06/24/20 at 0900 Given 06/27/2020 8:17 PM DISTRICT SUPERVISOR 80 mg Given 06/26/2020 8:51 PM DISTRICT SUPERVISOR 80 mg Given 06/24/2020 8:43 AM DISTRICT SUPERVISOR 80 mg bisacodyL (DULCOLAX) suppository 10 mg 10 mg, rectal, Daily PRN, constipation, Starting on Sat06/27/20 at 1145, Indications: constipationIndications:constipation Given 06/27/2020 6:24 PM DISTRICT SUPERVISOR 10 mg Given 06/27/2020 6:21 PM DISTRICT SUPERVISOR 10 mg calcium gluconate 1 g/50 mL in sodium chloride (premix) solution 1 g 1 g, intravenous, Administer over 60 Minutes, Once, On Sat06/24/20 at 0330, For 1 dose, Room temperature only, Indications: hypocalcemiaIndications:hypocalc emia New Bag 06/24/2020 3:15 AM DISTRICT SUPERVISOR 1 g ceFAZolin (ANCEF) 2,000 mg/20 mL in sterile water (premix) 2,000 mg 2,000 mg, intravenous, at 400 mL/hr, Administer over 3 Minutes, Every 8 hours, First dose on Destini 06/23/20 at 2000, For 3 doses, Start 8 hours after last satnam-operative dose., Indications: Prophylaxis, SurgicalIndications:Prophylaxis, Surgical New Bag 06/24/2020 11:27 AM DISTRICT SUPERVISOR 2,000 mg 400 mL/hr New Bag 06/24/2020 4:05 AM DISTRICT SUPERVISOR 2,000 mg 400 mL/hr New Bag 06/23/2020 8:03 PM DISTRICT SUPERVISOR 2,000 mg 400 mL/hr docusate sodium (COLACE) capsule 100 mg 100 mg, oral, 2 times daily, First dose on [place]ini 06/23/20 at 2100, If able to swallow medications. Hold for diarrhea. , Indications: constipationIndications:constipation Given 06/28/2020 9:45 AM DISTRICT SUPERVISOR 100 mg Given 06/27/2020 7:29 PM DISTRICT SUPERVISOR 100 mg Given 06/27/2020 8:16 AM DISTRICT SUPERVISOR 100 mg EPINEPHrine in 0.9% sodium chloride 2 mg/100 mL (20 mcg/mL) infusion (premix) 0.02-0.2 mcg/kg/min ? 95.6 kg (5.736-57.36 mL/hr, rounded to 5.74-57.36 mL/hr), 20 mcg/mL, intravenous, Titrated, Starting on Destini 06/23/20 at 0945, Until Destini 06/23/20 at 1547, Intra-Op, Indications: hypotension, Initial rate: 0.02 mcg/kg/min, Titrate: Up/Down, Titrate by: 0.01 mcg/kg/min, Every: 2 minutes, Goal: MAP, MAP Goal: 65-75 mmHg, RoutineIndications:hypo tension Rate/Dose Change 06/23/2020 3:40 PM DISTRICT SUPERVISOR 0.03 mcg/kg/min 8.6 mL/hr New Bag 06/23/2020 1:19 PM DISTRICT SUPERVISOR 0.03 mcg/kg/min 8.604 mL /hr EPINEPHrine in 0.9% sodium chloride 2 mg/100 mL (20 mcg/mL) infusion (premix) 0.02 mcg/kg/min ? 95.6 kg (5.736 mL/hr, rounded to 5.74 mL/hr), 20 mcg/mL, intravenous, Titrated, Starting on [place]ini 06/23/20 at 1630, Until Sat06/24/20 at 0857, Initial rate: Do not titrate, Routine Rate/Dose Verify 06/24/2020 3:00 AM DISTRICT SUPERVISOR 0.01 mcg/kg/min 2.87 mL/hr Rate/Dose Verify 06/24/2020 2:00 AM DISTRICT SUPERVISOR 0.01 mcg/kg/min 2. 87 mL/hr Rate/Dose Verify 06/24/2020 1:00 AM DISTRICT SUPERVISOR 0.01 mcg/kg/min 2. 87 mL/hr famotidine (PEPCID) 20 mg/50 mL in sodium chloride 0.9% (premix) 20 mg 20 mg, intravenous, at 150 mL/hr, Administer over 20 Minutes, Daily, First dose on [place]ini 06/23/20 at 1630, Indications: Prevention of Stress UlcerIndications:Prevention of Stress Ulcer New Bag 06/23/2020 8:00 PM DISTRICT SUPERVISOR 20 mg 150 mL/hr fentaNYL (SUBLIMAZE) 50 mcg/mL preservative free injection - ADS Override Pull Starting on Destini 06/23/20 at 1554, For 1 dose, Created by cabinet override fentaNYL (SUBLIMAZE) preservative free injection 100 mcg 100 mcg, intravenous, Once, On [place] 06/23/20 at 1645, For 1 dose Given 06/23/2020 4:00 PM DISTRICT SUPERVISOR 100 mcg ferrous sulfate tablet 325 mg 325 mg (65 mg of elemental iron), oral, 2 times daily with meals (bkfst, dinner), First dose on Sat06/25/20 at 1800, Indications: Iron Deficiency AnemiaIndications:Iron Deficiency Anemia Given 06/28/2020 9:49 AM DISTRICT SUPERVISOR 325 mg Given 06/27/2020 5:10 PM DISTRICT SUPERVISOR 325 mg Given 06/27/2020 8:17 AM DISTRICT SUPERVISOR 325 mg furosemide (LASIX) tablet 40 mg 40 mg, oral, Daily, First dose on Sat06/25/20 at 1145 Given 06/26/2020 8:26 AM DISTRICT SUPERVISOR 40 mg Given 06/25/2020 12:11 PM DISTRICT SUPERVISOR 40 mg furosemide (LASIX) tablet 40 mg 40 mg, oral, 2 times daily (for diuretics), First dose (after last modification) on Sat06/26/20 at 1600 Given 06/27/2020 8:17 AM DISTRICT SUPERVISOR 40 mg Given 06/26/2020 4:03 PM DISTRICT SUPERVISOR 40 mg furosemide (LASIX) tablet 40 mg 40 mg, oral, Daily, First dose (after last modification) on Sat06/28/20 at 0900 Given 06/28/2020 9:49 AM [facility] SUPERVISOR 40 mg heparin 5,000 unit/mL injection 5,000 Units 5,000 Units, subcutaneous, Every 8 hours scheduled, First dose on Sat06/24/20 at 0830, Indications: Deep Vein Thrombosis PreventionIndications:Deep Vein Thrombosis Prevention Given 06/26/2020 8:52 PM DISTRICT SUPERVISOR 5,000 Units Left Lower Abdomen Given 06/26/2020 12:40 PM [facility] SUPER[facility]OR 5,000 Units Left Lower Abdomen Given 06/26/2020 4:06 AM [facility] SUPERVISOR 5,000 Units L eft Lower Abdomen heparin in 0.45% sodium chloride 25,000 units/250 mL (100 units/mL) infusion (premix) 1-33 Units/kg/hr ? 97.1 kg (0.971-32.043 mL/hr, rounded to 0.97-32.04 mL/hr), intravenous, Titrated, Starting on Sat06/27/20 at 0045, WEIGHT-BASED HEPARIN INFUSION Initial rate:: 10.2 Units/kg/hr. Max initial rate 1,000 units/hr. Adjust infusion based upon nomogram: PTT less than 40 seconds: Bolus if ordered (see PRN bolus order) , then increase infusion rate 3 units/kg/hour PTT 40 - 50.9 seconds: Bolus if ordered (see PRN bolus order), then increase infusion rate 2 units/kg/hour PTT 51 - 59.9 seconds: No bolus, increase infusion rate 1 unit/kg/hour PTT 60 - 94.9 seconds: No change PTT 95 - 104.9 seconds: No bolus, decrease infusion rate 1 unit/kg/hour PTT 105-114.9 seconds: Hold infusion for 30 minutes, then decrease infusion rate 2 units/kg/hour PTT 115 or greater seconds: Hold infusion for 1 hour, then decrease infusion rate 3 units/kg/hour Draw STAT PTT 6 hrs after initial heparin bolus, after each rate change, and every 6 hours until 2 consecutive PTTs are within therapeutic range. Once two consecutive PTT's are therapeutic (60-94.9 seconds), then draw PTT every AM until heparin is discontinued., Indications: atrial fibrillationIndications:a trial fibrillation Rate/Dose Verify 06/27/2020 9:00 AM [facility] SUPERVISOR 12.2 Units/kg/hr 11.85 mL/hr Rate/Dose Verify 06/27/2020 8:00 AM [facility] SUPER[facility]OR 12.2 Units/kg/hr 1 1.85 mL/hr Rate/Dose Change 06/27/2020 6:40 AM [facility] SUPER[facility]OR 12.2 Units/kg/hr 1 1.85 mL/hr HYDROmorphone (DILAUDID) injection 0.2 mg 0.2 mg, intravenous, Administer over 2 Minutes, Every 1 hour PRN, breakthrough pain, Starting on [place] 06/23/20 at 1756 Given 06/24/2020 4:05 AM [facility] SUPER[facility]OR 0.2 mg Given 06/24/2020 1:16 AM [facility] SUPERVISOR 0.2 mg Given 06/23/2020 11:17 PM [facility] SUPER[facility] 0.2 mg insulin lispro (HumaLOG, ADMELOG) injection 1-5 Units 1-5 Units, subcutaneous, 3 times daily with meals, First dose on Sat06/24/20 at 0800, Blood Sugar Mid Dose meal time - PO patients 139 or less No insulin 140 - 175 1 unit 176 - 200 2 unit 201 - 250 3 units 251 - 299 5 units Greater than 299 Call MD for hyperglycemia management instructions Do NOT hold for NPO status., Indications: Diabetes MellitusIndications:Trish betes Mellitus Given 06/24/2020 11:27 AM [facility] SUPERVISOR 1 Units Left Upper Arm insulin regular in 0.9% sodium chloride 100 units/100 mL infusion (premix) 0-30 Units/hr (0-30 mL/hr), 1 units/mL, intravenous, Titrated, Starting on [place] 06/23/20 at 1230, Until Sat06/24/20 at 0729, Intra-Op, Indications: Hyperglycemia, NON-WEIGHT BASED DOSING Blood Glucose (BG) - BG DECREASED OR SAME as last value: Less than 70 mg/dL - Stop insulin infusion *(see below for drip reinitiation instructions). Follow hypoglycemia orders. Notify covering MD. 70 - 100 mg/dL - Stop infusion *(see below for drip reinitiation instructions). Resume BG Q 1 hour. 101 - 160 mg/dL - If BG decreased by greater than or equal to 40 mg/dL, decrease infusion by 50% or stop infusion if less than or equal to 2 units/hour *(see below for drip reinitiation instructions). Resume BG Q 1 hour. If BG decreased less than 40 mg/dL, continue same rate. 161 - 200 mg/dL- If BG decreased by greater than or equal to 60 mg/dL, decrease infusion by 50% or stop infusion if less than or equal to 2 units/hour *(see below for drip reinitiation instructions). Resume BG Q 1 hour. If BG decreased less than 60 mg/dL, continue same rate. 201 - 250 mg/dl - If BG decreased by greater than or equal to 60 mg/dL continue same rate. If decreased by less than 60 mg/dL, increase by 1 unit/hr. 251 - 300 mg/dL - Increase by 2 units/hour. 301 - 349 mg/dL - Increase by 2 units/hour. 350 - 400 mg/dL - Increase by 3 units/hr. Greater than 400 mg/dL - Notify covering MD Blood Glucose (BG) - Blood glucose INCREASED since last value: 70 - 100 mg/dL - Continue to hold infusion 101 - 160 mg/dL - Maintain at present rate or if drip has been off, follow reinitiation instructions* 161 - 200 mg/dL- Increase by or restart at 1 unit/hour or if drip has been off, follow reinitiation instructions* 201 - 250 mg/dL- Give 4 units insulin IVP then increase infusion by 2 units/hour or if drip has been off, follow reinitiation instructions* 251 - 300 mg/dL - Give 4 units insulin IVP then increase infusion by 2 units/hour or if drip has been off, follow reinitiation instructions* 301 - 349 mg/dL - Give 6 units insulin IVP then increase infusion by 3 units/hour or if drip has been off, follow reinitiation instructions* 350 - 400 mg/dL - Give 6 units insulin IVP then increase infusion by 3 units/hour or if drip has been off, follow reinitiation instructions* Greater than 400 mg/dL - Notify covering MD. *Drip Reinitiation Instructions: Check BG Q 1 hour; when BG >100 mg/dL, restart infusion at 50% of the most recent rate. If the most recent rate <2 units/hr, contact covering provider for re-initiation or transition plan. Patients with type 1 diabetes or equivalent: Do not discontinue drip until insulin maintenance regimen is implemented. Patients with renal failure (CrCl less than 40 mL/min, urine output less than 30 mL/hr, or receiving dialysis) limit infusion rate increases to be NO SOONER THAN EVERY 3 HOURS. When new IV tubing is used, completely prime the tubing. Once primed, waste an additional 20 ml of insulin infusion using the IV pump prior to connecting to patient., RoutineIndications:Hype rglycemia Rate/Dose Verify 06/24/2020 7:00 AM [facility] SUPER[facility]OR 2 Units/hr 2 mL/hr Rate/Dose Verify 06/24/2020 6:00 AM [facility] SUPER[facility]OR 2 Units/hr 2 mL/hr Rate/Dose Verify 06/24/2020 5:00 AM [facility] SUPER[facility]OR 2 Units/hr 2 mL/hr Lactated Ringer's (LR) bolus 1,000 mL 1,000 mL, intravenous, Once, On Sat06/24/20 at 0500, For 1 dose New Bag 06/24/2020 4:50 AM [facility]PER[facility] 1,000 mL Lactated Ringer's (LR) bolus 500 mL 500 mL, intravenous, Once, On Sat06/23/20 at 2200, For 1 dose New Bag 06/23/2020 9:45 PM [facility] SUPER[facility]OR 500 mL Lactated Ringer's (LR) infusion 10 mL/hr, intravenous, Continuous, Starting on Sat06/23/20 at 1630 Rate/Dose Verify 06/24/2020 3:00 AM [facility] 10 mL/hr 10 mL/hr Rate/Dose Verify 06/24/2020 2:00 AM [facility] SUPER[facility] 10 mL/hr 10 mL/h r Rate/Dose Verify 06/24/2020 1:00 AM [facility]PER[facility] 10 mL/hr 10 mL/h r latanoprost (XALATAN) 0.005 % ophthalmic solution 1 drop 1 drop, each eye, Nightly, First dose on Sat06/24/20 at 2100 Given 06/27/2020 8:07 PM [facility]PER[facility] 1 drop Given 06/26/2020 8:53 PM [facility] SUPER[facility] 1 drop Given 06/25/2020 9:12 PM [facility] SUPER[facility] 1 drop metoprolol tartrate (LOPRESSOR) immediate release tablet 12.5 mg 12.5 mg, oral, 2 times daily, First dose (after last modification) on Sat06/27/20 at 2100 Given 06/28/2020 6:15 AM [facility] SUPER[facility]OR 12.5 mg Given 06/27/2020 8:18 PM [facility] SUPER[facility] 12.5 mg METOPROLOL TARTRATE CAPSULE 6.25 MG capsule 6.25 mg 6.25 mg, oral, 2 times daily, First dose on Sat06/25/20 at 0500 Given 06/27/2020 8:15 AM [facility] SUPER[facility] 6.25 mg Given 06/26/2020 8:51 PM [facility] SUPER[facility] 6.25 mg Given 06/26/2020 7:07 AM [facility] SUPER[facility]OR 6.25 mg METOPROLOL TARTRATE CAPSULE 6.25 MG capsule 6.25 mg 6.25 mg, oral, Once, On Sat06/27/20 at 1230, For 1 dose Given 06/27/2020 12:21 PM [facility]PER[facility] 6.25 mg mineral oil (FLEET MINERAL OIL) enema 1 enema 1 enema, rectal, Once, On Sat06/27/20 at 1230, For 1 dose, If needed today if dulcolax supp doesn't work, Indications: constipationIndications:constipation Given 06/28/2020 9:45 AM [facility]PER[facility] 1 enema montelukast (SINGULAIR) tablet 10 mg 10 mg, oral, Nightly, First dose on Sat06/26/20 at 2100 Given 06/27/2020 8:17 PM [facility] SUPER[facility]OR 10 mg Given 06/26/2020 8:51 PM [facility] SUPER[facility] 10 mg niCARdipine in 0.9% sodium chloride (CARDENE) 25 mg/50 mL (0.5 mg/mL) infusion (premix) 0.5-2.5 mcg/kg/min ? 95.6 kg (5.736-28.68 mL/hr, rounded to 5.74-28.68 mL/hr), 500 mcg/mL, intravenous, Titrated, Starting on [place] 06/23/20 at 1630, Until Sat06/24/20 at 0857, Initial rate: 0.5 mcg/kg/min, Titrate: Up/Down, Titrate by: 0.5 mcg/kg/min, Every: 10 minutes, Goal: Other (comment) / SBP<140 , Central line only, Routine Rate/Dose Change 06/23/2020 10:54 PM [facility] SUPER[facility]OR 0.5 mcg/kg/min 5.74 mL/hr Rate/Dose Verify 06/23/2020 6:00 PM [facility] SUPER[facility] 1 mcg/kg/min 11.47 mL/hr Rate/Dose Verify 06/23/2020 5:00 PM [facility] SUPER[facility]OR 1 mcg/kg/min 11.47 mL/hr ondansetron (ZOFRAN) injection 4 mg 4 mg, intravenous, Administer over 2 Minutes, Every 6 hours PRN, nausea, vomiting, Starting on [place] 06/23/20 at 1547, Administer no sooner than 6 hours after last dose. , Indications: Nausea and VomitingIndications:Nausea and Vomiting Given 06/25/2020 7:20 AM [facility] SUPERVISOR 4 mg oxyCODONE (ROXICODONE) tablet 5 mg 5 mg, oral, Every 4 hours PRN, 1st line for pain, Starting on [place] 06/23/20 at 1756, Indications: PainIndications:Pain Given 06/26/2020 8:51 PM DISTRICT SUPER[facility]OR 5 mg Given 06/26/2020 12:35 PM [facility] SUPER[facility] 5 mg Given 06/26/2020 8:25 AM [facility] SUPER[facility] 5 mg oxyCODONE (ROXICODONE) tablet 5 mg 5 mg, oral, Every 4 hours PRN, 2nd line for pain, Starting on Sat06/27/20 at 0736, Indications: PainIndications:Pain Given 06/27/2020 12:22 PM [facility] SUPER[facility] 5 mg Given 06/27/2020 8:28 AM [facility] SUPER[facility]OR [address] (PROTONIX) extended release tablet 40 mg 40 mg, oral, 2 times daily, First dose on 06/25/20 at 0100, Do not crush, chew, cut, dissolve, open or otherwise manipulate tablet/capsule., Indications: Treatment of Non-Bleeding Gastric DisorderIndications:Treatment of Non-Bleeding Gastric Disorder Given 06/28/2020 9:49 AM [facility] SUPER[facility]OR 40 mg Given 06/27/2020 8:17 PM [facility] SUPERVISOR 40 mg Given 06/27/2020 8:16 AM [facility] SUPER[facility]OR 40 mg polyethylene glycol (MIRALAX) packet 17 g 17 g, oral, Daily, First dose on Sat06/27/20 at 2000, Indications: constipationIndications:constipation Given 06/28/2020 9:45 AM [facility] SUPER[facility]OR 17 g Given 06/27/2020 7:29 PM [facility] SUPERVISOR 17 g potassium chloride ER (KLOR-CON) extended release tablet 20 mEq 20 mEq, oral, Once, On Sat06/25/20 at 0130, For 1 dose, Do not crush, chew, cut, dissolve, open or otherwise manipulate tablet/capsule. Given 06/25/2020 1:16 AM [facility] SUPER[facility]OR 20 mEq potassium chloride ER (KLOR-CON) extended release tablet 20 mEq 20 mEq, oral, Daily, First dose on Sat06/25/20 at 1145, Do not crush, chew, cut, dissolve, open or otherwise manipulate tablet/capsule. Given 06/26/2020 8:25 AM [facility] SUPER[facility]OR 20 mEq Given 06/25/2020 12:11 PM [facility]PER[facility] 20 mEq potassium chloride ER (KLOR-CON) extended release tablet 20 mEq 20 mEq, oral, 2 times daily, First dose (after last modification) on Sat06/26/20 at 2100, Do not crush, chew, cut, dissolve, open or otherwise manipulate tablet/capsule. Given 06/27/2020 8:18 PM [facility] SUPER[facility]OR 20 mEq Given 06/27/2020 8:17 AM [facility] SUPER[facility]OR 20 mEq Given 06/26/2020 8:51 PM [facility] SUPER[facility] 20 mEq potassium chloride ER (KLOR-CON) extended release tablet 20 mEq 20 mEq, oral, Daily, First dose (after last modification) on Sat06/28/20 at 0900, Do not crush, chew, cut, dissolve, open or otherwise manipulate tablet/capsule. Given 06/28/2020 9:46 AM [facility] SUPERVISOR 20 mEq ramelteon (ROZEREM) tablet 8 mg 8 mg, oral, Nightly PRN, sleep, Starting on Sat06/24/20 at 1951, Indications: Sleep-Onset InsomniaIndications:Sleep-Onset Insomnia Given 06/27/2020 8:18 PM [facility] SUPER[facility] 8 m g Given 06/26/2020 8:51 PM DISTRICT SUPERVISOR 8 mg Given 06/25/2020 9:20 PM [facility] SUPERVISOR 8 mg senna (SENOKOT) tablet 1 tablet 1 tablet, oral, 2 times daily, First dose on [place] 06/23/20 at 2100, If able to swallow medications. Hold for diarrhea., Indications: constipationIndications:constipation Given 06/27/2020 8:16 AM [facility] SUPERVIS[facility] 1 table t Given 06/26/2020 8:51 PM DISTRICT SUPERVISOR 1 tablet Given 06/26/2020 8:25 AM [facility] SUPER[facility]OR 1 tablet senna (SENOKOT) tablet 2 tablet 2 tablet, oral, 2 times daily, First dose (after last modification) on Sat06/27/20 at 2100, If able to swallow medications. Hold for diarrhea., Indications: constipationIndications:constipation Given 06/28/2020 9:46 AM [facility] SUPERVISOR 2 table ts Given 06/27/2020 7:29 PM [facility] SUPER[facility]OR 2 tablets sodium chloride 0.9% IVPB 0-250 mL 0-250 mL, intravenous, Once, On 06/25/20 at 0515, For 1 dose, Prime blood tubing and administer amount needed to clear line (usually 50-100 mL) after transfusion complete. New Bag 06/25/2020 5:14 AM [facility] SUPERVISOR 250 mL sodium chloride 0.9% solution 1,000 mL 1,000 mL, intra-catheter, Continuous, Starting on [place] 06/23/20 at 1630, With 300 Hg to maintain patency Rate/Dose Verify 06/24/2020 7:00 AM [facility] SUPER[facility]OR 9 mL/hr Rate/Dose Verify 06/24/2020 6:00 AM [facility] SUPER[facility]OR 9 mL/hr Rate/Dose Verify 06/24/2020 5:00 AM [facility] SUPER[facility]OR 9 mL/hr vancomycin 1,000 mg/50 mL in sterile water (premix) 1,000 mg 1,000 mg, intravenous, Administer over 60 Minutes, Every 24 hours scheduled, First dose on Sat06/24/20 at 0700, For 1 dose, Start 24 hours after last satnam-operative dose. Central line only, Indications: Prophylaxis, SurgicalIndications:Prophylaxis, Surgical New Bag 06/24/2020 7:06 AM [facility] SUPER[facility] 1,000 mg documented in this encounter Discontinued Medications Medication Sig Discontinue Reason Start Date End Da te oxyCODONE (ROXICODONE) 5 mg immediate release tabletIndications:Pain Take 1 tablet (5 mg total) by mouth every 4 (four) hours as needed for pain 06/28/2020 06/28/2020 atorvastatin (LIPITOR) 10 mg tabletIndications:hype rlipidemia Take 10 mg by mouth every morning Stop Taking at Discharge 03/31/2015 06/28/2020 amLODIPine (NORVASC) 10 mg tabletIndications:hype rtension Take 10 mg by mouth every morning Stop Taking at Discharge 06/28/2020 benazepriL (LOTENSIN) 5 mg tabletIndications:hype rtension Take 5 mg by mouth every morning Stop Taking at Discharge 06/28/2020 metoprolol XL (TOPROL-XL) 25 mg extended release tablet Take 0.5 tablets (12.5 mg total) by mouth daily Stop Taking at Discharge 06/09/2020 06/28/2020 documented as of this encounter Active and Recently Administered Medications Times are shown in [facility]. Scheduled Medication Order 06/26/2020 06/27/2020 06/28/2020 acetaminophen (TYLENOL) tablet 1,000 mg (CANCELED) 1,000 mg, oral, Every 6 hours scheduled, First dose (after last modification) on 06/25/20 at 0000, For 3 days 0319 (Not Given - Provider: Hair Wallace RN - Reason: Other)0407 (Given - Provider: Hair Wallace RN)1139 (Given - Provider: Brisa Bahena RN)1756 (Given - Provider: Evelina Serrato) 0329 (Not Given - Provider: Hair Wallace RN - Reason: Other)0545 (Not Given - Provider: Hair Wallace RN - Reason: Other) amiodarone (PACERONE) tablet 400 mg (CANCELED) 400 mg, oral, 3 times daily, First dose on 06/25/20 at 0200, Indications: arrythmia 0707 (Given - Provider: Brisa Bahena RN - Comment: afib)1603 (Given - Provider: Evelina Serrato)2051 (Given - Provider: Hair Wallace RN) 0816 (Given - Provider: Brisa Bahena RN)1709 (Given - Provider: Evelina Serrato)2016 (Given - Provider: Hair Wallace RN) amiodarone (PACERONE) tablet 400 mg 400 mg, oral, Daily, First dose (after last modification) on Sat06/28/20 at 0700, Indications: arrythmia 0629 (Given - Provider: Hair Wallace RN)0946 (Not Given - Provider: Ruiz Holder - Reason: Other - Comment: given early by another RN) aspirin enteric coated tablet 81 mg 81 mg, oral, Daily, First dose on Sat06/24/20 at 0900, Do not crush, chew, cut, dissolve, open or otherwise manipulate tablet/capsule. 0824 (Given - Provider: Evelina Serrato) 0815 (Given - Provider: Brisa Bahena RN) 0946 (Given - Provider: Ruiz Holder) atorvastatin (LIPITOR) tablet 80 mg 80 mg, oral, Daily, First dose on Sat06/24/20 at 0900 2050 (Given - Provider: Hair Wallace RN) 2016 (Given - Provider: Hair Wallace RN) docusate sodium (COLACE) capsule 100 mg(Linked Group 1) 100 mg, oral, 2 times daily, First dose on Sat06/23/20 at 2100, If able to swallow medications. Hold for diarrhea. , Indications: constipation 0825 (Given - Provider: Evelina Serrato)2050 (Given - Provider: Hiar Wallace RN) 0816 (Given - Provider: Brisa Bahena, TREV)1928 (Given - Provider: Hair Wallace RN) 0945 (Given - Provider: Ruiz Holder) ferrous sulfate tablet 325 mg 325 mg (65 mg of elemental iron), oral, 2 times daily with meals (bkfst, dinner), First dose on Sat06/25/20 at 1800, Indications: Iron Deficiency Anemia 0826 (Given - Provider: Evelina Serrato)175 (Given - Provider: Evelina Serrato) 0817 (Given - Provider: Brisa Bahena, TREV)1710 (Given - Provider: Evelina Serrato) 0949 (Given - Provider: Ruiz Holder)1729 (Not Given - Provider: Ruiz Holder - Reason: Patient not available) furosemide (LASIX) tablet 40 mg (CANCELED) 40 mg, oral, Daily, First dose on Sat06/25/20 at 1145 0826 (Given - Provider: Evelina Serrato) furosemide (LASIX) tablet 40 mg (CANCELED) 40 mg, oral, 2 times daily (for diuretics), First dose (after last modification) on Sat06/26/20 at 1600 1603 (Given - Provider: Evelina Serrato) 0817 (Given - Provider: Brisa Bahena RN)1606 (Not Given - Provider: Brisa Bahena RN - Reason: Other - Comment: see VS flow sheet) furosemide (LASIX) tablet 40 mg 40 mg, oral, Daily, First dose (after last modification) on Sat06/28/20 at 0900 0949 (Given - Provider: Ruiz Holder) heparin 5,000 unit/mL injection 5,000 Units (CANCELED) 5,000 Units, subcutaneous, Every 8 hours scheduled, First dose on Sat06/24/20 at 0830, Indications: Deep Vein Thrombosis Prevention 0406 (Given - Provider: Hair Wallace RN)1240 (Given - Provider: Evelina Serrato)2051 (Given - Provider: Hair Wallace, TREV) latanoprost (XALATAN) 0.005 % ophthalmic solution 1 drop 1 drop, each eye, Nightly, First dose on Sat06/24/20 at 2100 2052 (Given - Provider: Hair Wallace, TREV) 2006 (Given - Provider: Hair Wallace, TREV) metoprolol tartrate (LOPRESSOR) immediate release tablet 12.5 mg 12.5 mg, oral, 2 times daily, First dose (after last modification) on Sat06/27/20 at 2100 2017 (Given - Provider: Hair Wallace RN) 0615 (Given - Provider: Hair Wallace RN)0900 (Hold - Provider: Hair Wallace RN - Reason: Other - Comment: given early) METOPROLOL TARTRATE CAPSULE 6.25 MG capsule 6.25 mg (CANCELED) 6.25 mg, oral, 2 times daily, First dose on 06/25/20 at 0500 0707 (Given - Provider: Brisa Bahena RN - Comment: Afib)2050 (Given - Provider: Hair Wallace RN) 08 (Given - Provider: Brisa Bahena RN) METOPROLOL TARTRATE CAPSULE 6.25 MG capsule 6.25 mg (COMPLETED) 6.25 mg, oral, Once, On Sat06/27/20 at 1230, For 1 dose 1221 (Given - Provider: Evelina Serraot) mineral oil (FLEET MINERAL OIL) enema 1 enema (COMPLETED) 1 enema, rectal, Once, On Sat06/27/20 at 1230, For 1 dose, If needed today if dulcolax supp doesn't work, Indications: constipation 0945 (Given - Provider: Ruiz Holder) mineral oil (FLEET MINERAL OIL) enema 1 enema 1 enema, rectal, Once, On Sat06/28/20 at 1030, For 1 dose, Indications: constipation 1017 (Not Given - Provider: Ruiz Holder - Reason: Other - Comment: duplicate 0rder) montelukast (SINGULAIR) tablet 10 mg 10 mg, oral, Nightly, First dose on Sat06/26/20 at 2100 2050 (Given - Provider: Hair Wallace RN) 2016 (Given - Provider: Hair Wallace RN) pantoprazole DR (PROTONIX) extended release tablet 40 mg 40 mg, oral, 2 times daily, First dose on 06/25/20 at 0100, Do not crush, chew, cut, dissolve, open or otherwise manipulate tablet/capsule., Indications: Treatment of Non-Bleeding Gastric Disorder 0825 (Given - Provider: Evelina Serrato)2050 (Given - Provider: Hair Wallace RN) 08 (Given - Provider: Brisa Bahena, TREV)2016 (Given - Provider: Hair Wallace, TREV) 0949 (Given - Provider: Ruiz Holder) polyethylene glycol (MIRALAX) packet 17 g 17 g, oral, Daily, First dose on Sat06/27/20 at 2000, Indications: constipation 1928 (Given - Provider: Hair Wallace RN) 0945 (Given - Provider: Ruiz Holder) potassium chloride ER (KLOR-CON) extended release tablet 20 mEq (CANCELED) 20 mEq, oral, Daily, First dose on 06/25/20 at 1145, Do not crush, chew, cut, dissolve, open or otherwise manipulate tablet/capsule. 0825 (Given - Provider: Evelina Serrato) potassium chloride ER (KLOR-CON) extended release tablet 20 mEq (CANCELED) 20 mEq, oral, 2 times daily, First dose (after last modification) on Sat06/26/20 at 2100, Do not crush, chew, cut, dissolve, open or otherwise manipulate tablet/capsule. 2050 (Given - Provider: Hair Wallace RN) 08 (Given - Provider: Brisa Bahena, RN)2017 (Given - Provider: Hair Wallace RN) potassium chloride ER (KLOR-CON) extended release tablet 20 mEq 20 mEq, oral, Daily, First dose (after last modification) on Sat06/28/20 at 0900, Do not crush, chew, cut, dissolve, open or otherwise manipulate tablet/capsule. 0946 (Given - Provider: Ruiz Holder) senna (SENOKOT) tablet 1 tablet (CANCELED) 1 tablet, oral, 2 times daily, First dose on [place] 06/23/20 at 2100, If able to swallow medications. Hold for diarrhea., Indications: constipation 08 (Given - Provider: Evelina Serrato)2050 (Given - Provider: Hair Wallace RN) 0816 (Given - Provider: Brisa Bahena, TREV) senna (SENOKOT) tablet 2 tablet(Linked Group 2) 2 tablet, oral, 2 times daily, First dose (after last modification) on Sat06/27/20 at 2100, If able to swallow medications. Hold for diarrhea., Indications: constipation 1928 (Given - Provider: Hair Wallace RN) 0946 (Given - Provider: Ruiz Holder) Continuous Medication Order 06/26/2020 06/27/2020 06/28/2020 heparin in 0.45% sodium chloride 25,000 units/250 mL (100 units/mL) infusion (premix) (CANCELED) 1-33 Units/kg/hr ? 97.1 kg (0.971-32.043 mL/hr, rounded to 0.97-32.04 mL/hr), intravenous, Titrated, Starting on Sat06/27/20 at 0045, WEIGHT-BASED HEPARIN INFUSION Initial rate:: 10.2 Units/kg/hr. Max initial rate 1,000 units/hr. Adjust infusion based upon nomogram: PTT less than 40 seconds: Bolus if ordered (see PRN bolus order) , then increase infusion rate 3 units/kg/hour PTT 40 - 50.9 seconds: Bolus if ordered (see PRN bolus order), then increase infusion rate 2 units/kg/hour PTT 51 - 59.9 seconds: No bolus, increase infusion rate 1 unit/kg/hour PTT 60 - 94.9 seconds: No change PTT 95 - 104.9 seconds: No bolus, decrease infusion rate 1 unit/kg/hour PTT 105-114.9 seconds: Hold infusion for 30 minutes, then decrease infusion rate 2 units/kg/hour PTT 115 or greater seconds: Hold infusion for 1 hour, then decrease infusion rate 3 units/kg/hour Draw STAT PTT 6 hrs after initial heparin bolus, after each rate change, and every 6 hours until 2 consecutive PTTs are within therapeutic range. Once two consecutive PTT's are therapeutic (60-94.9 seconds), then draw PTT every AM until heparin is discontinued., Indications: atrial fibrillation 0043 (New Bag - Provider: Hair Wallace RN)0640 (Rate/Dose Change - Provider: Brisa Bahena RN)0800 (Rate/Dose Verify - Provider: Brisa Bahena RN)0900 (Rate/Dose Verify - Provider: Brisa Bahena RN)0915 (Stopped - Provider: Evelina Serrato) PRN Medication Order 06/26/2020 06/27/2020 06/28/2020 acetaminophen (TYLENOL) tablet 650 mg 650 mg, oral, Every 4 hours PRN, 1st line for pain, Starting on Sat06/27/20 at 0745 0819 (Given - Provider: Brisa Bahena RN)1221 (Given - Provider: Evelina Serrato)2017 (Given - Provider: Hair Wallace RN) bisacodyL (DULCOLAX) suppository 10 mg 10 mg, rectal, Daily PRN, constipation, Starting on Sat06/27/20 at 1145, Indications: constipation 1412 (Not Given - Provider: Evelina Serrato - Reason: Patient/family refused - Comment: Pt requested to let him try to go)1820 (Given - Provider: Evelina Serrato)1823 (Given - Provider: Evelina Serrato) ondansetron (ZOFRAN) injection 4 mg 4 mg, intravenous, Administer over 2 Minutes, Every 6 hours PRN, nausea, vomiting, Starting on Sat06/23/20 at 1547, Administer no sooner than 6 hours after last dose. , Indications: Nausea and Vomiting oxyCODONE (ROXICODONE) tablet 5 mg (CANCELED) 5 mg, oral, Every 4 hours PRN, 1st line for pain, Starting on Sat06/23/20 at 1756, Indications: Pain 0407 (Given - Provider: Hair Wallace RN)0825 (Given - Provider: Evelina Serrato)1235 (Given - Provider: Evelina Serrato)2050 (Given - Provider: Hair Wallace RN) oxyCODONE (ROXICODONE) tablet 5 mg 5 mg, oral, Every 4 hours PRN, 2nd line for pain, Starting on Sat06/27/20 at 0736, Indications: Pain 0828 (Given - Provider: Evelina Serrato)1222 (Given - Provider: Evelina Serrato) ramelteon (ROZEREM) tablet 8 mg 8 mg, oral, Nightly PRN, sleep, Starting on Sat06/24/20 at 1951, Indications: Sleep-Onset Insomnia 2050 (Given - Provider: Hair Wallace RN) 2017 (Given - Provider: Hair Wallace RN) Linked Groups Order Group 1: docusate sodium (COLACE) capsule 100 mgJump to med 100 mg, oral, 2 times daily, First dose on 06/23/21 at 2100, If able to swallow medications. Hold for diarrhea. , Indications: constipation Or docusate (COLACE) 10 mg/mL oral liquid 100 mg (CANCELED) 100 mg, feeding tube, 2 times daily, First dose on [place]ini 06/23/20 at 2100, If taking meds per tube. Hold for diarrhea., Indications: constipation Group 2: senna (SENOKOT) tablet 2 tabletJump to med 2 tablet, oral, 2 times daily, First dose (after last modification) on 06/27/20 at 2100, If able to swallow medications. Hold for diarrhea., Indications: constipation documented in this encounter Orders Medications Ordered That Ernst ht Not Have Been Administered Count Last Ordered Date First Ordered Date amiodarone (PACERONE) tablet 400 mg 1 06/28 mineral oil (FLEET MINERAL O IL) enema 1 enema 1 06/28/2020 dextrose (D10W) 10% bolus 250 mL 06/24/19 dextrose (GLUTOSE) 40 % gel 15 g 1 06/24/19 glucagon injection 1 mg 06/24/2020 insulin lispro (HumaLOG, ADM ELOG) injection 1-3 Units 1 06/24/2020 ceFAZolin (ANCEF) 2,000 mg/2 0 mL in sterile water (premix) 2,000 mg 06/23/2020 docusate (COLACE) 10 mg/mL o ral liquid 100 mg 06/23/2020 EPINEPHrine in 0.9% sodium c hloride 2 mg/100 mL (20 mcg/mL) infusion (premix) 06/23/2020 fentaNYL (SUBLIMAZE) preserv ative free injection 50 mcg 06/23/2020 Lactated Ringer's (LR) infusion norepinephrine in 0.9% sodiu m chloride (LEVOPHED) 8,000 mcg/250 mL (32 mcg/mL) infusion (premix) 06/23/2020 papaverine injection 06/23/2020 potassium chloride 20 mEq/50 mL in sterile water (premix) 20 mEq 1 06/23/2020 propofol (DIPRIVAN) 10 mg/mL infusion senna 1.76 mg/mL syrup 8.8 mg 1 06/23/2020 sodium chloride 0.9% flush 0.5-20 mL 1 05/31 sodium chloride 0.9% flush 10-30 mL 1 06/23 sodium chloride 0.9% irrigation 1 sodium chloride 0.9% solution 1,000 mL 1 vancomycin (VANCOCIN) solution 1 06/23/2020 vancomycin 1500 mg/515 mL in sodium chloride 0.9% (premix) 1,500 mg 1 06/23/2020 Lab Orders Without Results Count Last Ordered D ate First Ordered Date MAGNESIUM 1 06/27/2020 LACTATE, WHOLE BLOOD 1 06/23/2020 Imaging Orders Without Results Count Last Order ed Date First Ordered Date EXTUBATION 1 06/23/2020 EKG Orders Without Results Count Last Ordered D ate First Ordered Date ECG 12-LEAD 1 06/26/2020 Diet Count Last Ordered Date First Orde red Date ADULT DISCHARGE DIET 1 06/28/2020 Nursing Count Last Ordered Date First Orde red Date DISCHARGE ACTIVITY 4 06/28/2020 DISCHARGE CALL PROVIDER 4 06/28/2020 DISCHARGE DRESSING 1 06/28/2020 DISCHARGE INSTRUCTIONS 3 06/28/2020 FOLLOW UP WITH ESTABLISHED PROVIDER 2 06/28 OTHER FOLLOW UP 1 06/28/2020 PICC LINE REMOVAL 1 06/28/2020 SOAP SUDS ENEMA 1 06/28/2020 WEIGHT RESTRICTIONS 1 06/28/2020 Transfer Count Last Ordered Date First Orde red Date TRANSFER PATIENT 2 06/24/2020 CORE MEASURES Count Last Ordered Date First Ord ered Date REASON FOR NO VTE PROPHYLAXI S - HOSPITAL ADMISSION - MEDICATIONS 2 06/23/2020 documented in this encounter Care Teams Junior Qa Analyst Relationship Specialty Start Date End Date Martin López MD [address] [place] [address] PCP - General 06/27/12 Khalif Ca MD [address] [place] [address] Referring Physician Cardiology 04/08/19 Felton Chiu MD [address] [place], [place] [id number] Surgeon Cardiothoracic Surgery 06/28/20 Tera Torre MD [address] [place], [place] [id number] Consulting Physician Cardiology 06/28/20 documented as of this encounter
--- OUTSIDE RECORDS SUMMARY | 2024-04-20 00:16 | XMS_ITS | Encounter Summary ---
Author Organization [facility] Healthcare Address [address] [place] [address] Care Team Providers Care Heating And Refrigeration Inspector Name Role Phone Martin López MD Primary Care Provider Khalif Ca MD Unavailable [phone] Encounter Details Date Type Department Care Team (Late st Contact Info) Description 06/23/2020 7:00 AM CHEMISTRY FACULTY MEMBER Ancillary Procedure [facility] Operating Room [address] [place] [id number] Bashir Meadows MD [address] [facility] [address] [place] [address] Social History Tobacco Use Types Packs/Day Years Used Date Smoking Tobacco: Never Smokeless Tobacco: Never Alcohol Use Standard Drinks/Week Comments Yes 0 (1 standard drink = 0.6 oz pur e alcohol) rare Sex and Gender Information Value Date Recorded Sex Assigned at Not on file Legal Sex Male 9:13 PM CHEMISTRY FACULTY MEMBER Gender Identity Male 07/25/2023 3:40 PM CDT Sexual Orientation Straight 10/28/2019 9: 50 AM CDT documented as of this encounter Plan of Treatment Not on file documented as of this encounter Procedures Procedure Name Priority Date/Time Associated Diagnosis Comments SANDY ADD-ON FOR OR Routine 06/23/2020 7:0 0 AM CHEMISTRY FACULTY MEMBER documented in this encounter Results * SANDY Add-On for OR (06/23/2020 7:00 AM CHEMISTRY FACULTY MEMBER) Narrative [facility] - 06/23/2020 7:00 AM CHEMISTRY FACULTY MEMBER Procedure Auto Finalized by Rule: BW CV SANDY ADD-ON FOR OR Please see the Anesthesiologist's Procedure Note for the results. us Bashir Meadows MD CV ECHO PROCEDURES Final Result [facility] documented in this encounter Visit Diagnoses Not on filedocumented in this encounter Care Teams Heating And Refrigeration Inspector Relationship Specialty Start Date End Date Martin López MD [address] [place] [address] PCP - General 06/27/12 Khalif Ca MD [address] [place] [address] Referring Physician Cardiology 04/08/19 documented as of this encounter
--- OUTSIDE RECORDS SUMMARY | 2024-04-20 00:16 | XMS_ITS | Encounter Summary ---
Author Organization [facility] Healthcare Address [address] [place] [address] Care Team Providers Care Escort Service Attendant Name Role Phone Martin López MD Primary Care Provider Khalif Ca MD Unavailable [phone] Felton Chiu MD Unavailable Tera Torre MD Unavailable [phone] Encounter Details Date Type Department Care Team (Latest Contact Info) Description 06/28/2020 2:20 PM HOPPER FILLER - 06/28/2020 11:59 PM HOPPER FILLER Hospital Encounter [facility] [address] [place] [address] Discharge Disposition: Discharge to home or self care Social History Tobacco Use Types Packs/Day Years Used Date Smoking Tobacco: Never Smokeless Tobacco: Never Alcohol Use Standard Drinks/Week Comments Yes 0 (1 standard drink = 0.6 oz pur e alcohol) rare Sex and Gender Information Value Date Recorded Sex Assigned at Not on file Legal Sex Male 9:13 PM HOPPER FILLER Gender Identity Male 07/25/2023 3:40 PM CDT [...] Comments EVENT MONITOR Routine 06/28/2020 3:21 PM HOPPER FILLER documented in this encounter Results * Event Monitor, 30 Day Event (06/28/2020 3:21 PM HOPPER FILLER) Anatomical Region Laterality Modality Electrocardiogra phy 06/28/2020 2:25 PM HOPPER FILLER Narrative 08/10/2020 6:41 PM CDT Patient name: Nathan Wagner Date of test: 06/28/2020 Type of Test: Event Monitor ([facility]) [facility] #: [id number] ?Location: [facility] : 1945 ??Age: 74 ??Sex: M Ref Physician(s): FELTON CHIU MD Interpreted by: Logan Cabrera MD Urvew: Bijal Nicholas Diagnosis: Monitoring Service: [employer] Reason for Test: I48.0: Paroxysmal atrial fibrillation Monitor Used: [facility] ([facility]) ??[id number] Enrollment Period: Jun 28 - Jul 27, 2020 [employer]ara-Up Tech comments: Patient Instructions: Understood directions and [...] The full scanned/data report is available in [facility] [employer]. labeled MONITOR STRIPS PDF . This study was interpreted by Logan Cabrera MD Confirmed on ??08/10/2020 - 18:41:08 by Logan Cabrera MD Summary of Transmitted Events: # ??Date [...] Atrial Fibrillation Offset w/Atrial Run/Ar 07/12/20 07:38 ?? 140.0 ?? Auto Trigger ? Atrial Fibrillation RVR Onset, Sinus Rhythm w/PACs ? 07/12/20 00:53 ?? 110.0 ?? Auto Trigger ? Atrial Flutter with Variable Conduction Onset, Sinus Rhy 20 07/11/20 06:41 ?? 171.0 ?? Auto Trigger ? Sinus Rhythm w/Run of V-Tach (9 beats)/Atrial Run/PACs 07/11/20 00:07 ?? 100.0 ?? Auto Trigger ? Sinus Rhythm, Atrial Flutter with Variable Conduction On 07/09/20 20:41 ?? 130.0 ?? Auto Trigger [...] ? Atrial Flutter with Variable Conduction ? 13 07/06/20 07:06 ?? 110.0 ?? Auto Trigger [...] Atrial Fibrillation RVR Non Sustained ? 1 ??06/28/20 15:06 ?? 66.3 ?Baseline ? Sinus Rhythm w/Artifact ? I have personally reviewed and interpreted this study. Procedure Note Logan Cabrera MD PhD - 08/10/2020 Patient name: Nathan Wagner Date of test: 06/28/2020 Type of Test: Event Monitor ([facility]) Hospital #: [id number] Location: [facility] : 1945 Age: 74 Sex: M Ref Physician(s): FELTON CHIU MD Interpreted by: Logan Cabrera MD Hook-Up Tech: Bijal Nicholas Diagnosis: Monitoring Service: [employer] Reason for Test: I48.0: Paroxysmal atrial fibrillation Monitor Used: [facility] ([facility]) [id number] Enrollment Period: Jun 28 - Jul 27, 2020 Urvew comments: Patient Instructions: Understood directions and use [...] The full scanned/data report is available in [facility]. labeled MONITOR STRIPS PDF . This study was interpreted by Logan Cabrera MD Confirmed on 08/10/2020 - 18:41:08 by Logan Cabrera MD Summary of Transmitted Events: # Date [...] 04:44 113.0 Auto Trigger Sinus Tachycardia w/PACs 27 07/15/20 04:17 62.0 Auto Trigger Variable, Atrial [...] have personally reviewed and interpreted this study. Shana Alvarado NP CV CARDIAC SERVICES PROCEDURES F inal Result documented in this encounter Visit Diagnoses Not on filedocumented in this encounter Care Teams Escort Service Attendant Relationship Specialty Start Date End Date Martin López MD [address] [address] PCP - General 06/27/12 Khalif Ca MD [address] [address] Referring Physician Cardiology 04/08/19 Felton Chiu MD [address] [id number] Surgeon Cardiothoracic Surgery 06/28/20 Tera Torre MD [address] [address] Consulting Physician Cardiology 06/28/20 documented as of this encounter
--- OUTSIDE RECORDS SUMMARY | 2024-04-20 00:17 | XMS_ITS | Encounter Summary ---
Author Organization [facility] Address [address] [place] [address] Phone Care Team Providers Care Judge Clerk Name Role Phone Martin López MD Primary Care Provider Khalif Ca MD Unavailable [phone] Encounter Details Date Type Department Care Team (Latest Contact Info) Description 05/25/2020 8:30 AM DISTRICT MANAGER IN TRAINING - 05/25/2020 11:59 PM DISTRICT MANAGER IN TRAINING Hospital Encounter [facility] [address] [place] [address] Tera Torre MD [address] [place] [address] Chest pain, unspecified type Discharge Disposition: Discharge to home or self care Social History Tobacco Use Types Packs/Day Years Used Date Smoking Tobacco: Never Smokeless Tobacco: Never Sex and Gender Information Value Date Recorded Sex Assigned at Not on file Legal Sex Male 9:13 PM DISTRICT MANAGER IN TRAINING Gender Identity Male 07/25/2023 3:40 PM CDT Sexual Orientation Straight 10/28/2019 9: 50 AM CDT documented as of this encounter Last Filed Vital Signs Vital Sign Reading Time Taken Comments Blood Pressure 114/64 05/25/2020 10:55 AM DISTRICT MANAGER IN TRAINING Pulse 70 05/25/2020 10:55 AM DISTRICT MANAGER IN TRAINING Temperature 36.7 ??C (98.1 ??F) 05/25/2020 7:23 AM CS T Respiratory Rate 18 05/25/2020 10:55 AM DISTRICT MANAGER IN TRAINING Oxygen Saturation 97% 05/25/2020 10:55 AM DISTRICT MANAGER IN TRAINING Inhaled Oxygen Concentration - - Weight - - Height - - Body Mass Index - - documented in this encounter Discharge Instructions * Discharge Instructions* Prabha Savage RN - 05/25/2020 9:47 AM DISTRICT MANAGER IN TRAINING Discharge Instructions For Cardiac Catheterization (Radial Approach) The Radial Artery is the small artery on the thumb side of your wrist. Your doctor has used this artery for your procedure. At the end of your procedure your doctor placed a special pressure pad/banddirectly on the artery to stop the bleeding and applied a wrist support to keep your wrist and handin a quiet position. We have removed that band and the support and have a Band-aid over the site. You may remove the Band-aid in the morning. Gently clean the area and apply a new Band-aid in the morning if you wish. Activity Restrictions: Take it easy for the next few days. We encourage you to perform your usual activities; you should move your arm, wrist, hand and fingers when you go home. ??? Perform hand exercises by making a fist and opening it 5-10 times a minute as often as you remember. ??? Due to your sedation: do not drive for 24 hours, and do not make any legal decisions for 24 hours. ??? Keep the site dry. ??? Do not soak your arm in water or a bath for 3 days. Washing your hands and showering is okay. ??? Do not lift more than 5 pounds with your affect arm for 3 days. ??? No heavy impact activities for one week. ??? All activities are permitted after one week if no problems occur. Due to receiving sedation for your procedure: 1. Do not make any legal decisions for 24 hours 2. Do not operate potentially dangerous machinery for 24 hours 3. Do not drink alcohol for 24hours Continue to take your home medications on your regular schedule. If you notice bleeding at the puncture site: ??? Apply gentle direct pressure with your fingers over the site for 15 minutes. After 15 minutes you may release the pressure gently. ??? If the bleeding re-starts or continues; reapply direct pressure and call 911. ??? NEVER wrap a dressing or adhesive tape completely around your wrist as this can cause serious circulation complications. Call your doctor immediately for any of these rare but serious problems. If you are unable to reach your doctor go to the nearest Emergency Room. ??? A swelling or bruise that is increasing in size or getting worse rather than disappearing. ??? Severe pain at the puncture site, affected hand or forearm ??? Your affected hand becomes cold, pale, or numb as compared to your other hand. ??? Your arm becomes red, warm to the touch, or swollen as compared to your other arm. ??? IV dye reactions are rare but can occur. If you develop a rash, hives, or itching of the skin or have throat tightness, notice selling of the tongue or lips, you may be having a dye reaction. For routine questions or concerns regarding your care after your catheterization please feel free to call us. From 7am-5pm M-F call our Outpatient Nurse Coordinators at [phone]. If you need to speak to someone after 5pm please call [facility] at [phone] and ask the utility system operator topage the Cardiac Senior Category Manager Fellow contract agent. RICT MANAGER IN TRAINING documented in this encounter Medications at Time of Discharge aspirin 81 mg enteric coated tablet Take 1 tablet (81 mg total) by mouth every morning montelukast (SINGULAIR) 10 mg tablet Take 1 tablet (10 mg total) by mouth nightly 04/02/2016 travoprost (TRAVATAN Z) 0.004 % drops Administer 1 drop into both eyes nightly 03/31/2015 amLODIPine (NORVASC) 10 mg tabletIndication s:hypertension Take 10 mg by mouth every morning 1 atorvastatin (LIPITOR) 10 mg tabletIndication s:hyperlipidemia Take 10 mg by mouth every morning 03/31/2015 1 azelastine 0.15 % (205.5 mcg) spray,non-aeroso lIndications:Sea jayshree Allergic Rhinitis Administer 1 spray into each nostril daily as needed 04/02/2016 2 benazepriL (LOTENSIN) 5 mg tabletIndication s:hypertension Take 5 mg by mouth every morning 1 clobetasol (TEMOVATE) 0.05 % external solutionIndicati ons:Dermatosis of the Scalp Apply 1 application topically 2 (two) times a day as needed 04/24/2019 2 documented as of this encounter Discharge Disposition Disposition Code Departure Means Destination Discharge to home or self care documented in this encounter Miscellaneous Notes * Pre-Cardiac Catheterization Workup and H&P - Atilio Patel MD - 05/25/2020 8:30 AMCST PRE-CARDIAC CATHETERIZATION WORKUP Patient Name: Nathan Wagner Patient Patient : 1945 Date of Procedure: 05/25/2020 ORDERING PROMOTIONS OFFICER: Surgeon(s): Tera Torre MD Procedure(s): LEFT HEART CATHETERIZATION WITH CORONARY ANGIOGRAPHY AND WITH OR WITHOUT LEFT VENTRICULOGRAM [id number] Requested Diagnostic: [x] Coronary Angiograms Only [] Left Heart Cath [] LV Gram [] Right Heart Cath [] Right and Left Heart Cath Valve Study: [] Aortic [] Mitral [] Pulmonic [] Tricuspid [] Pulmonary HTN Study [] Pericardial Constriction Study [] Congential Study [] Other Study: Requested Intervention: [] Coronary [] FFR [] Percutaneous VAD [] IAPB [] Pericardiocentesis [] Vascular [] Renal Valvuloplasty: [] Aortic [] Mitral [] Pulmonic [] Tricuspid Strucutural Heart: [] ASD/PFO Closure [] VSD Closure [] TAVR [] Other Intervention: NARRATIVE: Nathan Wagner is a 74 y.o. male severe undergoing evaluation for AVR. Allergies Patient has no known allergies. Topical Iodine Allergy: [] No [] Yes IV Contrast Allergy: [] No [] Yes If yes, Premedicated for contrast allergy: [] No [] Yes Aspirin allergy: [] No [] Yes PRE-Procedure Medications Antiarrhythmic Agent: [] Yes [] No [] Contraindicated Aspirin: [] Yes [] No [] Contraindicated Beta Neno (Any): [] Yes [] No [] Contraindicated Ca Channel Neno (Any): [] Yes [] No [] Contraindicated Long Acting Nirates (Any): [] Yes [] No [] Contraindicated Non-Statin (Any): [] Yes [] No [] Contraindicated Ranolazin: [] Yes [] No [] Contraindicated Statin (Any): [] Yes [] No [] Contraindicated Anticogulation: [] Yes [] No [] ?? If yes, which and time of last dose: - Indications for Senior Category Manager visit (Select all that apply): [] ACS less than or equal to 24 hours [] ACS greater than 24 hours [] Stable/Known CAD [] Cardiac Arrhythmia [] Post Cardiac Transplant [] New Onset Angina less than or equal to 2 months [] Suspected CAD [] Worsening Angina [] Cardiomyopathy [] Pre-operative evaluation [] Valvular Disease [] LV Dysfunction [] Evaluation for Exercise Clearance [] Syncope [] Pericardial Disease [] Resuscitated Cardiac Arrest [] Congenital Heart Disease [] Evaluate CAD [] Pre-Transplant Evaluation [] Abnormal Stress Test [] Pulmonary HTN [] Heart Failure [] Other: Chest Pain Symptom Assessment: [] Typical Angina [] Atypical Angina [] Non-anginal Chest Pain [] Asymptomatic HISTORY AND RISK FACTORS Cerebrovascular Disease: [] Yes [] No Hypertension: [] Yes [] No Diabetes Mellitus: [] Yes [] No Dyslipidemia: [] Yes [] No Peripheral Arterial Disease: [] Yes [] No Chronic Lung Disease: [] Yes [] No Prior Heart Failure: [] Yes [] No [] CKD [] ESRD [] Dialysis [] HD []PD: Prior RI: [] Yes [] No If Yes, Most Recent RI Date: Family History of Premature CAD: [] Yes [] No [] Male less than 55 years old [] Female less than 65 years old Relationship: Tobacco Use Social History Tobacco Use Smoking Status Never Smoker Smokeless Tobacco Never Used Previous Cardiac and Peripheral Interventions: (Include hospital/procedure/most recent date) Cardiac Cath/Prior PCI:[] Yes [] No If Yes, Most Recent PCI Date: Report Available: [] Yes [] No Prior CABG: [] Yes [] No If Yes, Most Recent CABG Date: Report Available: [] Yes [] No Valvular Surgery: [] Yes [] No Report Available: [] Yes [] No (Include percutaneous procedures): Peripheral Intervention: [] Yes [] No Report Available: [] Yes [] No Cath/PCI Indication: [] CAD (without Ischemic Sx) [] Stable Angina [] New Onset Angina less than or equal to 2 months [] NSTE-ACS [] Other: [] STEMI Symptom Date: Time: [] Thrombolytic [] Yes [] No If Yes, Start Date Time [] Staged PCI, Anginal symptoms stable on Medical Therapy and restricted activity: Anginal Class within 2 weeks [] CCS I [] CCS II [] CCS III [] CCS IV If AMI: [] Cardiogenic Shock at First Medical Contact [] Systolic Blood Pressure: - and Heart Rate: - at First Medical Contact [] Cardiac arrest within 24 hours [] Cardiogenic shock within 24 hours [] Cardiogenic shock at start of PCI Heart Failure: [] Yes [] NO If Yes, Newly Diagnosed: [] Yes [] No [facility] Class: [] Class I [] Class II [] Class III [] Class IV HF Type: [] Diastolic [] Systolic [] Unknown Test Performed (Choose One): [] Exercise Stress Test (w/o imaging) [] Stress Echocardiogram [] Stress Nuclear [] Stress Imaging w/CMR [] Cardiac CTA If Yes, Result: Result: [] Negative [] Positive [] Indeterminate IF Positive: Risk/Extent of ischemia: [] Low [] Intermediate [] High FINDINGS EKG: - LVEF Assessed: [] Yes [] No If yes, Most recent LVEF %: 75% ECHO: Physical Exam There were no vitals taken for this visit. GEN: NAD; alert, comfortable, thought content appropriate HENT: NCAT, MMM, anicteric, no conjunctival pallor CVS: RRR, S1S2, no rubs/murmurs/gallops, no JVP appreciated PULM: non-labored, CTAB, good inspiratory effort ABD: soft, NTND, no organomegaly EXT: equal radial pulses, no edema Neuro: A&Ox3, no abnormal movements, nonfocal exam Skin: warm, dry Pulses Carotid/Bruit Brachial Radial Femoral/Bruit Popiteal DP PT Left 2+ 2+; NA 2+ 2+ Right 2+ 2+; NA 2+ 2+ Impression + Plan [facility] Clinical Frailty Scale: [] 1: Very Fit [] 2: Well [x] 3: Managing Well [] 4: Vulnerable [] 5: Mildly Frail [] 6: Moderately Frail [] 7: Severely Frail [] 8: Very Severely Frail [] 9: Terminally Ill PLAN: Procedure, risks, benefits and alternatives have been explained to the patient. The patient voiced understanding, consent is signed and orders are written. Form Completed/Reviewed and Assessment Completed by: Atilio Patel MD Fellow in Cardiovascular Medicine Cosigned by Tera Torre MD at 05/25/2020 7:28 AM DISTRICT MANAGER IN TRAINING RICT MANAGER IN TRAINING RICT MANAGER IN TRAINING * Pre-Sedation Documentation - Atilio Patel MD - 05/25/2020 8:30 AM CST Sedation Plan ASA 3 - Severe systemic disease Mallampati class: I. Risks, benefits, and alternatives discussed with patient. Cosigned by Tera Torre MD at 05/25/2020 7:28 AM DISTRICT MANAGER IN TRAINING RICT MANAGER IN TRAINING RICT MANAGER IN TRAINING * Perioperative Nursing Note - Prabha Savage RN - 05/25/2020 8:30 AM DISTRICT MANAGER IN TRAINING Pt ambulated in hallway with steady gait, pt denies any pain or discomforts, site noted no bleedingor hematoma noted, positive peripheral pulses, extr warm to touch, pt denies any questions or concerns regarding dc instructions copy of AVS remains with patient. IV removed and gauze dressing in place. Spouse to drive pt home. RICT MANAGER IN TRAINING documented in this encounter Plan of Treatment Not on file documented as of this encounter Procedures Procedure Name Priority Date/Time Associated Diagnosis Comments LEFT HEART CATHETERIZATION WITH CORONARY ANGIOGRAPHY AND WITH AND WITHOUT LEFT VENTRICULOGRAM Routine 05/25/2020 8:30 AM DISTRICT MANAGER IN TRAINING Chest pain, unspecified type documented in this encounter Results * LEFT HEART CATHETERIZATION WITH CORONARY ANGIOGRAPHY AND WITH AND WITHOUT LEFT VENTRICULOGRAM (05/25/2020 8:30 AM DISTRICT MANAGER IN TRAINING) Anatomical Region Laterality Modality X-Ray Angiograph y Impressions 05/26/2020 11:29 AM DISTRICT MANAGER IN TRAINING 1. Moderate coronary artery disease with lesions [...] he does have moderate coronary artery disease. ??We will discuss further care and treatment. ??At this point I would favor medical management for his coronary artery disease and proceed with aortic valve replacement. I was present during the entire procedure and personally dictated or confirmed the above report. Tera Torre MD Narrative 05/26/2020 11:29 AM DISTRICT MANAGER IN TRAINING Procedure: ??CORONARY ANGIOGRAM Patient: Nathan Wagner is a 74 y.o. male : ?? 1945 MR number: [id number] Date of Service: 05/25/2020 Cupola Liner Helper: ?? Tera Torre MD Fellow: ?Atilio Patel MD Referring physician: ?? No info available INDICATION: ??CHF/Dyspnea NYHA Class 2 PATIENT CLINICAL PROFILE: ??Nathan Wagner is a 74 y.o. male with a history of hypertension and aortic stenosis presents for left heart catheterization prior to proceeding with aortic valve replacement therapies. ??Patient has been followed for some time with severe aortic stenosis and recently has noted an increase in his tiredness and fatigue. ??He was recently admitted for a diverticular bleed that has since resolved. ??He denies any chest pressure tightness. ??He now presents for left heart catheterization prior to considering aortic valve replacement therapies PROCEDURE: 1. The risks, benefits and alternatives of the procedures and moderate sedation were explained to the patient and informed consent was obtained. 2. The patient was brought to the labor contractor and placed on the table 3. Bilateral groins and the right radial artery were prepped and draped in the usual sterile fashion. 4. The right radial artery site was infiltrated with 2% lidocaine. 5. I provided direct face to face monitoring of intravenous conscious sedation which was administered using Fentanyl and Versed by an independently certified nurse for a total of 20 minutes. 6. The vessel was accessed using Angiocath needle and a 5/6 F Terumo glidesheath was placed without difficulty into the vessel. ??IV vasodilators were administered and heparin was administered when the catheter was placed in the ascending aorta. ?? 7. Left Coronary Artery Angiogram was performed using a 5 Fr Yuli Catheter. 8. Right Coronary Artery Angiogram was performed using a 5 Fr JR4 Catheter. 9. At the end of the procedure, arteriotomy was successfully closed and hemostasis ?achieved by a TR band placement. 10. Patient was transferred to the holding area in stable condition. 11. There were no apparent complications. RESULTS: Coronary Arteriography: 1. Left main coronary: ??Left main coronary is a large vessel supplies an LAD and circumflex. ??There is no significant left main coronary artery disease 2. Left Anterior Decending: ??Left anterior descending artery is a large vessel gives off many moderate-sized diagonal branches. ??There is a moderate 50% lesion in the proximal to mid LAD. ??There is some significant calcium to this. 3. Left Circumflex: ??The circumflex is a large vessel gives rise to several large obtuse marginal vessels. ??There is a mild to moderate 40-50% lesion in the mid circumflex. ??There are no significant high-grade narrowings present 4. Right Coronary Artery: ??The right coronary artery is a large dominant vessel supplies the PDA and PLV branch. ??There is a mild to moderate 50-60% lesion in the distal right coronary prior to the bifurcation. ?? There are no significant high-grade narrowings present. COMPLICATIONS: None DIAGNOSTIC Tera Torre MD CV CARDIAC CATH PROCEDURES F inal Result documented in this encounter Visit Diagnoses Diagnosis Chest pain, unspecified type Chest pain, unspecified type documented in this encounter Administered Medications Inactive Administered Medications - up to 3 most recent administrations Medication Order MAR Action Action Date Dose Rate Site aspirin enteric coated tablet 81 mg 81 mg, oral, Daily, First dose on Sat05/25/20 at 0900, Recovery (CV), Do not crush, chew, cut, dissolve, open or otherwise manipulate tablet/capsule., Indications: cardiovascular diseaseIndications:cardiovasc ular disease Given 05/25/2020 7:30 AM DISTRICT MANAGER IN TRAINING 81 mg sodium chloride 0.9% infusion 200 mL/hr, intravenous, Continuous, Starting on Sat05/25/20 at 0745, Pre-Procedure (CV) New Bag 05/25/2020 7:28 AM DISTRICT MANAGER IN TRAINING 200 mL/hr 200 mL/hr documented in this encounter Orders Medications Ordered That Ernst ht Not Have Been Administered Count Last Ordered Date First Ordered Date acetaminophen (TYLENOL) tablet 650 mg 1 fentaNYL (SUBLIMAZE) preserv ative free injection 1 05/25/2020 heparin 1,000 unit/mL injection 1 lidocaine (XYLOCAINE) 20 mg/ mL (2 %) injection 1 05/25/2020 midazolam (VERSED) 1 mg/mL injection 1 04/30 ondansetron (ZOFRAN) injection 4 mg 1 05/25 sodium chloride 0.9% infusion 1 05/25/2020 verapamiL (ISOPTIN) injection 1 05/25/2020 CORE MEASURES Count Last Ordered Date First Ord ered Date REASON FOR NO VTE PROPHYLAXIS AT ADMISSION 1 05/25/2020 documented in this encounter Care Teams Judge Clerk Relationship Specialty Start Date End Date Martin López MD [address] [place] [address] PCP - General 06/27/12 Khalif Ca MD [address] [place] [address] Referring Physician Cardiology 04/08/19 documented as of this encounter
--- OUTSIDE RECORDS SUMMARY | 2024-04-20 00:17 | XMS_ITS | Encounter Summary ---
Author Organization [facility] Address [address] [place] [address] Phone Care Team Providers Care Real Estate Services Administrator Name Role Phone Martin López MD Primary Care Provider Khalif Ca MD Unavailable [phone] Reason for Visit * Reason Onset Date Comments Frailties 05/25/2020 Encounter Details Date Type Department Care Team (Late st Contact Info) Description 05/25/2020 Documentation [facility] Cardiology [address] [place] [address] [place] [address] Kristina Aguilar RMA Frailties Social History Tobacco Use Types Packs/Day Years Used Date Smoking Tobacco: Never Smokeless Tobacco: Never Sex and Gender Information Value Date Recorded Sex Assigned at Not on file Legal Sex Male 9:13 PM MANAGER OF ENTERPRISE Gender Identity Male 07/25/2023 3:40 PM CDT Sexual Orientation Straight 10/28/2019 9: 50 AM CDT documented as of this encounter Progress Notes * Kristina Aguilar MA - 05/25/2020 11:59 PM CST Frailty Index GER OF ENTERPRISE documented in this encounter Plan of Treatment Not on file documented as of this encounter Visit Diagnoses Not on filedocumented in this encounter Care Teams Real Estate Services Administrator Relationship Specialty Start Date End Date Martin López MD [address] [facility] [address] [place] [address] PCP - General 06/27/12 Khalif Ca MD [address] [facility] [address] [place] [address] Referring Physician Cardiology 04/08/19 documented as of this encounter
--- OUTSIDE RECORDS SUMMARY | 2024-04-20 00:17 | XMS_ITS | Encounter Summary ---
Author Organization [facility] Address [address] [place] [address] Phone Care Team Providers Care Home Health Nurse Name Role Phone Martin López MD Primary Care Provider Khalif Ca MD Unavailable [phone] Encounter Details Date Type Department Care Team (Late st Contact Info) Description 06/03/2020 Orders Only [facility] Cardiology [address] [facility] Advanced Medicine [address]th [place] [address] [place] [address] Tera Torre MD [address] [place], [place] [id number] Aortic valve stenosis, etiology of cardiac valve disease unspecified (Primary Dx) Social History Tobacco Use Types Packs/Day Years Used Date Smoking Tobacco: Never Smokeless Tobacco: Never Sex and Gender Information Value Date Recorded Sex Assigned at Not on file Legal Sex Male 9:13 PM GUARD SUPERVISOR Gender Identity Male 07/25/2023 3:40 PM CDT Sexual Orientation Straight 10/28/2019 9: 50 AM CDT documented as of this encounter Plan of Treatment Not on file documented as of this encounter Results * (ABNORMAL) Basic metabolic panel (06/06/2020 11:20 AM GUARD SUPERVISOR) Sodium 143 135 - 145 mmol/L [facility] Potassium, pl 4.4 3.3 - 4.9 mmol/L [facility] Chloride 106 97 - 110 mmol/L [facility] CO2 30 22 - 32 mmol/L [facility] Anion gap 7 2 - 15 mmol/L [facility] BUN 22 8 - 25 mg/dL [facility] Creatinine 1.37(H) 0.80 - 1.30 mg/dL [facility] Glucose 104 70 - 199 mg/dL [facility] Comment: Interpretive Data Fasting glucose >/= 126 [...] interpretive data was last revised 2017. Calcium 9.7 8.5 - 10.3 mg/dL [facility] Blood specimen (specimen) 06/06/2020 11:20 AM GUARD SUPERVISOR 06/06/2020 11:30 AM GUARD SUPERVISOR us Tera Torre MD LAB BLOOD ORDERABLES Final R esult [facility] [address] [facility] Department [place] [address] * CBC with auto differential (06/06/2020 11:20 AM GUARD SUPERVISOR) WBC 9.0 3.8 - 9.9 K/cumm [facility] Hgb 14.5 13.0 - 17.5 g/dL [facility] Hct 43.2 38.9 - 50.3 % [facility] Plt 235 150 - 400 K/cumm [facility] MPV 11.6 9.1 - 12.3 fL [facility] RBC 4.98 4.30 - 5.80 M/cumm [facility] MCV 86.7 81.3 - 96.4 fL [facility] MCH 29.1 27.1 - 33.3 pg [facility] MCHC 33.6 32.3 - 35.7 g/dL [facility] RDW CV 13.7 11.1 - 14.9 % [facility] RDW SD 42.9 35.7 - 48.1 fL [facility] NRBC abs 0.00 0.00 - 0.01 K/cumm [facility] Blood specimen (specimen) 06/06/2020 11:20 AM GUARD SUPERVISOR 06/06/2020 11:30 AM GUARD SUPERVISOR Tera Torre MD LAB BLOOD ORDERABLES Final R esult [facility] [address] [facility] Department [place] [address] documented in this encounter Visit Diagnoses Diagnosis Aortic valve stenosis, etiology of cardiac valve disease unspecified- Primary documented in this encounter Care Teams Home Health Nurse Relationship Specialty Start Date End Date Martin López MD [address] [place] [address] PCP - General 06/27/12 Khalif Ca MD [address] [place] [address] Referring Physician Cardiology 04/08/19 documented as of this encounter
--- OUTSIDE RECORDS SUMMARY | 2024-04-20 00:17 | XMS_ITS | Encounter Summary ---
Author Organization [facility] Address [address] [place] [address] Phone Care Team Providers Care Material Assembler Name Role Phone Martin López MD Primary Care Provider Khalif Ca MD Unavailable [phone] Encounter Details Date Type Department Care Team (Late st Contact Info) Description 05/25/2020 Telephone [facility] Cardiology [address] [facility] [address] [place] [address] [place] [id number] Tera Torre MD [address] [place], [place] [id number] Social History Tobacco Use Types Packs/Day Years Used Date Smoking Tobacco: Never Smokeless Tobacco: Never Sex and Gender Information Value Date Recorded Sex Assigned at Not on file 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
--- OUTSIDE RECORDS SUMMARY | 2024-04-20 00:17 | XMS_ITS | Encounter Summary ---
Author Organization [facility] Healthcare Address [address] [place] [address] Care Team Providers Care Food Products Sales Representative Name Role Phone Martin López MD Primary Care Provider Khalif Ca MD Unavailable [phone] Encounter Details Date Type Department Care Team (Late st Contact Info) Description 06/07/2020 11:05 AM TRANSPORTATION ATTENDANT - 06/07/2020 12:35 PM TRANSPORTATION ATTENDANT Surgery [facility] [address] [place] [address] Tera Torre MD [address] [address] CORONARY FLOW VELOCITY (CFR) / INSTANTANEOUS FLOW VELOCITY (IFR), 1ST VESSEL (+) [id number] Surgery Details Date/Time Status Location OR Service Patient Class Case Class Case Type Trauma Case? 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 CCL 03 Cardiovascular Outpatient Elective Panel 1 Procedure LRB Anes Op Region Wound Class Comments CORONARY FLOW VELOCITY (CFR) / INSTANTANEOUS FLOW VELOCITY (IFR), 1ST VESSEL (+) [id number] N/A Conscious Sedation Surgeon Surgeon Role Service Panel Betzaida Sy MD Fellow Cardiovascular 1 Tera Torre MD Primary Cardiovascular 1 Case Notes 0930 arrivalE-MiFR of the LAD documented in this encounter Social History Tobacco Use Types Packs/Day Years Used Date Smoking Tobacco: Never Smokeless Tobacco: Never Sex and Gender Information Value Date Recorded Sex Assigned at Not on file Legal Sex Male 9:13 PM TRANSPORTATION ATTENDANT Gender Identity Male 07/25/2023 3:40 PM CDT Sexual Orientation Straight 10/28/2019 9: 50 AM CDT documented as of this encounter Last Filed Vital Signs Vital Sign Reading Time Taken Comments Blood Pressure 112/69 06/07/2020 12:35 PM TRANSPORTATION ATTENDANT Pulse 71 06/07/2020 12:35 PM TRANSPORTATION ATTENDANT Temperature 36.9 ??C (98.5 ??F) 06/07/2020 9:50 AM CS T Respiratory Rate 20 06/07/2020 12:3 5 PM TRANSPORTATION ATTENDANT Oxygen Saturation 95% 06/07/2020 12: 35 PM TRANSPORTATION ATTENDANT Inhaled Oxygen Concentration - - Weight 96.1 kg (211 lb 13.8 oz) 06/07/2020 9:50 AM TRANSPORTATION ATTENDANT Height 176.5 cm (5' 9.5 ) 06/07/2020 9:50 AM TRANSPORTATION ATTENDANT Body Mass Index 30.84 06/07/2020 9:50 AM TRANSPORTATION ATTENDANT documented in this encounter Discharge Instructions * Discharge Instructions* Heide Moore RN - 06/07/2020 1:47 PM TRANSPORTATION ATTENDANT Discharge Instructions For Cardiac Catheterization (Femoral Approach) Please use this as a guide for caring for yourself at home after your procedure. Take it easy for the next few days. ??? Gentle walking on level ground is OK. ??? You can eat your normal diet; remember to follow any diet restrictions your doctor has recommended. ??? You may have some bruising of the skin near the puncture site. This is common. ??? Remove the Band-aid or dressing on your groin tomorrow. ??? You may shower tomorrow. Be careful to avoid slipping, your leg may be stiff. ??? Continue your home medications on your regular schedule. Avoid the Following: ??? Do not do strenuous or intense activities. Do not do aerobics. No stair stepping. No rowing. NoBicycling. Do not jog or run. No bowling, dancing, swimming, or sexual intercourse. If you are involved in other activities, ask your nurse or doctor first if it is OK. ??? Do not sit or soak in a bath, hot tub, pool of water, or go swimming. ??? Do not lift anything heavier than 5lbs for 3 days. ??? Do not drive for the next 3 days. ??? Due to receiving sedation for your procedure: 1. Do not make any legal decisions for 24 hours 2. Do not operate potentially dangerous machinery for 24 hours 3. Do not drink alcohol for 24hours ??? Avoid climbing stairs. If you must climb stairs, use your non-catheterized leg to go up the step, and then bring the other leg up to the same step. ??? Do not strain at bowel movements. If you tend to be constipated please start a stool softener that works for you. You may restart the above activities on: SaturdayJune 10 Call your doctor immediately for any of the following rare but serious problems. If you are unable to reach your doctor go to the nearest Emergency Room. ??? Bleeding from catheterization puncture site: apply direct pressure with a clean cloth. If the bleeding doesn???t stop with gentle pressure call 911. ??? A knot, bruise, or lump that appears to be increasing in size or getting worse rather than disappearing. ??? Your catheterized leg is cold, pale, or numb when compared to the opposite leg ??? IV dye reactions are rare but can occur. If you develop a rash, hives, or itching of the skin or have throat tightness, notice swelling of the tongue or lips you may be having a dye reaction. For routine questions or concerns regarding your care after your catheterization please feel free to call us. From 7am-5pm M-F call our Outpatient Nurse Coordinators at [phone]. If you need to speak to someone after 5pm please call [facility] at [phone] and ask the buzzsaw operator topage the Cardiac Health Care Sanitary Technician Fellow continuous dryout operator. SPORTATION ATTENDANT documented in this encounter Medications at Time [...] documented in this encounter Miscellaneous Notes * Perioperative Nursing Note - Aby Lawson RN - 06/07/2020 2:35 PM TRANSPORTATION ATTENDANT PT returns from procedure alert ad oriented x4 with an celt device in the right femoral artery. Thesite has a transparent, gauze dressing in place. The site has remained clean and dry with no signs of active bleeding or oozing as well as soft and free from a hematoma. PT has denied pain throughoutrecovery. PT has been drinking fluids and eating without difficulty. Once bedrest was completed, ptambulated in the hallway with a steady gait, used the restroom and then returned to the bay to prepare for discharge. INT was removed with tips intact, coban applied. All belongings returned to patient, AVS reviewed and signed by patient, patient discharged per MD order via wheelchair, with responsible caregiver spouse. SPORTATION ATTENDANT * Pre-Sedation Documentation - Yaritza Munguia NP - 06/07/2020 10:01 AM CST Sedation Plan Risks, benefits, and alternatives discussed with patient. History of sedation/Anesthesia complications:No History of transfusion reaction: No Current Facility-Administered Medications Medication Dose Route Frequency Provider Last Rate Last Admin ??? sodium chloride 0.9% bolus 290 mL 3 mL/kg intravenous Once Yaritza Munguia NP Followed by ??? sodium chloride 0.9% infusion 1 mL/kg/hr intravenous Continuous Yaritza Munguia NP ??? sodium chloride 0.9% flush 0.5-20 mL 0.5-20 mL intra-catheter PRN Yaritza Munguia NP ??? sodium chloride 0.9% infusion 30 mL/hr intravenous Continuous Yaritza Munguia NP Laboratory review: Chemistry BMP No results found for: GLUCOSE, CALCIUM, SODIUM, POTASSIUM, CO2, BUNSER, CREATININE and CBC:No results found for: WBC, RBC, HGB, HCT, MCV, MCH, MCHC, RDW, RDWCV, RDWSD, MPV, NRBC, NRBCABS, NRBCPCT Current meds/Labs/Test Results that may affect sedation reviewed: Yes Last PO Intake: Date of Last Liquid: 06/07/20, Time of Last Liquid: 0700(16oz water) Date of Last Solid: 06/06/20, Time of Last Solid: 1800 HEENT Exam: negative Sedation Plan: Moderate Cosigned by Tera Torre MD at 06/07/2020 11:01 AM TRANSPORTATION ATTENDANT SPORTATION ATTENDANT SPORTATION ATTENDANT * Pre-Cardiac Catheterization Workup and H&P - Yaritza Munguia NP - 06/03/2020 3:14 PM CST PRE-CARDIAC CATHETERIZATION WORKUP Patient Name: Nathan Wagner Patient Patient : 1945 Date of Procedure: 06/07/2020 ORDERING CAN RUNNER: Surgeon(s): Tera Torre MD Procedure(s): CORONARY FLOW VELOCITY (CFR) / INSTANTANEOUS FLOW VELOCITY (IFR), 1ST VESSEL (+) [id number] Requested Diagnostic: [] Coronary Angiograms Only [] Left Heart Cath [] LV Gram [] Right Heart Cath [] Right and Left Heart Cath Valve Study: [] Aortic [] Mitral [] Pulmonic [] Tricuspid [] Pulmonary HTN Study [] Pericardial Constriction Study [] Congential Study [] Other Study: Requested Intervention: [] Coronary [x] FFR [] Percutaneous VAD [] IAPB [] Pericardiocentesis [] Vascular [] Renal Valvuloplasty: [] Aortic [] Mitral [] Pulmonic [] Tricuspid Strucutural Heart: [] ASD/PFO Closure [] VSD Closure [] TAVR [] Other Intervention: NARRATIVE: 74 year old male with h/o HTN, HLD, severe aortic stenosis. Patient is s/p LHC on 05-25-20 at [facility] aspart of TAVR evaluation which revealed Moderate coronary artery disease with lesions in the LAD, circumflex and right coronary artery. Patient reports a recent of episode of severe lightheadedness/pre syncope while on the treadmill. Denies chest pain and SOB. Referred for IFR of the LAD with Dr. Torre. ALLERGIES: Patient has no known allergies. Topical Iodine Allergy: [x] No [] Yes IV Contrast Allergy: [x] No [] Yes If yes, Premedicated for contrast allergy: [] No [] Yes PRE-Procedure Medications Antiarrhythmic Agent: [] Yes [x] No [] Contraindicated Aspirin: [x] Yes [] No [] Contraindicated Beta Neno (Any): [] Yes [x] No [] Contraindicated Ca Channel Neno (Any): [x] Yes [] No [] Contraindicated Long Acting Nirates (Any): [] Yes [x] No [] Contraindicated Non-Statin (Any): [] Yes [x] No [] Contraindicated Ranolazin: [] Yes [x] No [] Contraindicated Statin (Any): [x] Yes [] No [] Contraindicated Indications for Health Care Sanitary Technician visit (Select all that apply): [] ACS less than or equal to 24 hours [] ACS greater than 24 hours [x] Stable/Known CAD [] Cardiac Arrhythmia [] Post [...] Chest Pain Symptom Assessment: [] Typical Angina [x] Atypical Angina [] Non-anginal Chest Pain [] Asymptomatic HISTORY AND RISK FACTORS Family History of Premature CAD: [] Yes [x] No [] Male less than 55 years old [] Female less than 65 years old Relationship: Cerebrovascular Disease: [] Yes [x] No Hypertension: [x] Yes [] No Diabetes Mellitus: [] Yes [x] No Dyslipidemia: [x] Yes [] No Peripheral Arterial Disease: [] Yes [x] No Chronic Lung Disease: [] Yes [x] No Prior Heart Failure: [x] Yes [] No [] CKD [] ESRD [] Dialysis [] HD []PD: Prior MN: [] Yes [x] No If Yes, Most Recent MN Date: Tobacco Use Social History Tobacco Use Smoking Status Never Smoker Smokeless Tobacco Never Used If Current - Every Day and Cigarettes, Amount: Previous Cardiac and Peripheral Interventions: (Include hospital/procedure/most recent date) Cardiac Cath/Prior PCI:[x] Yes [] No If Yes, Most Recent PCI Date:05-25-20 Report Available: [x] Yes [] No 1. Moderate coronary artery disease with lesions in the LAD, circumflex and right coronary artery 2. Severe aortic stenosis Prior CABG: [] Yes [x] No If Yes, Most Recent CABG Date: Report Available: [] Yes [] No Valvular Surgery: [] Yes [x] No Report Available: [] Yes [] No (Include percutaneous procedures): Peripheral Intervention: [] Yes [x] No Report Available: [] Yes [] No LABS WBC HGB HCT pits PT INR PTT Na K+ Glucose BUN Cr HCG Cath/PCI Indication: [x] CAD (without Ischemic Sx) [] Stable Angina [...] First Medical Contact [] Systolic Blood Pressure: and Heart Rate: at First Medical Contact [] Cardiac arrest within 24 hours [] Cardiogenic shock within 24 hours [] Cardiogenic shock at start of PCI Heart Failure: [] Yes [x] NO If Yes, Newly Diagnosed: [] Yes [] No [facility] Class: [] Class I [] Class II [...] [] Low [] Intermediate [] High FINDINGS LVEF Assessed: [x] Yes [] No If yes, Most recent LVEF 75%: ECHO: Severe . LENORA 0.5cm2. Mean AV grad. 51mmHg, Peak AV grad 83mmHg. LA is normal. Normal RV cavity size. LV cavity size is normal. Moderate concentric LV hypertrophy. LVEF = 75%. Global longitudinal strain (GLS) =- 12.4% (abnormal). Normal Inferior vena cava. Normal aorta. Trace AR seen, No MR seen, no MS, normal TV, normal PV. Diastolic function: Impaired Relaxation. As compared to previous study 7-8-20, remains severe, LENORA and AV gradients are worse. Nurse Coordinator: Rhonda Shaffer RN Date: 06-03-20 Time: 1524 PHYSICAL EXAM Vitals: 06/07/20 0950 BP: 146/72 Pulse: 87 Resp: 26 Temp: 36.9 ??C (98.5 ??F) SpO2: 99% General: NAD HEENT: EOMI, oropharynx clear Neck: Supple without thyromegaly Lungs: CTAB Cardiac: RRR, normal S1 and S2, systolic murmur, no rubs/gallops. JVP not elevated, no LE edema. Abdomen: soft, nontender, nondistended Extremities: warm, no clubbing/cyanosis Neuro: grossly intact Psych: normal affect, mood, judgment Pulses Carotid/Bruit Brachial Radial Femoral/Bruit Popiteal DP PT Left 2+ 2+ 2+ Right 2+ 2+ 2+ EKG: NSR IMPRESSION: 74yoM with severe and CAD here for IFR to RCA [facility] Clinical Frailty Scale: [] 1: Very Fit [...] written. Form Completed/Reviewed and Assessment Completed by: Name: Yaritza Munguia SOFTWARE TEST ANALYST-C Date: 06/07/20 Time: 1000 Cosigned by Tera Torre MD at 06/07/2020 11:01 AM TRANSPORTATION ATTENDANT SPORTATION ATTENDANT SPORTATION ATTENDANT documented in this encounter Plan of Treatment Not on file documented as of this encounter Procedures Procedure Name Priority Date/Time Associated Diagnosis Comments CORONARY FLOW VELOCITY (CFR) / INSTATANEOUS FLOW VELOCITY (IFR), 1ST VESSEL Routine 06/07/2020 11:59 AM TRANSPORTATION ATTENDANT Coronary artery disease involving anvik coronary artery of anvik heart without angina pectoris POCT ACTIVATED CLOTTING TIME, LOW RANGE Routine 06/07/2020 11:49 AM TRANSPORTATION ATTENDANT POCT ACTIVATED CLOTTING TIME, LOW RANGE Routine 06/07/2020 11:36 AM TRANSPORTATION ATTENDANT TYPE AND SCREEN Timed 06/07/2020 10:00 AM TRANSPORTATION ATTENDANT CBC WITHOUT DIFFERENTIAL Routine 06/07/2020 9:32 AM TRANSPORTATION ATTENDANT documented in this encounter Results * CORONARY FLOW VELOCITY (CFR) / INSTATANEOUS FLOW VELOCITY (IFR), 1ST VESSEL (06/07/2020 11:59 AM TRANSPORTATION ATTENDANT) Anatomical Region Laterality Modality X-Ray Angiograph y Impressions 06/07/2020 12:19 PM TRANSPORTATION ATTENDANT 1. Severe three-vessel coronary artery disease with marked ischemia in all major vascular bed 2. Severe aortic stenosis 3. Right common femoral CELT THERAPEUTIC RECOMMENDATIONS: 1. Continue aggressive medical therapy and risk factor modification 2. Bedrest 2 hours post Celt closure 3. Patient has severe ischemia in all 3 coronary vessels. ??They would be amenable to PCI however the most likely would involve the left main. ?? Given that he is low risk, has severe high gradient aortic stenosis, I would recommend surgical aortic valve replacement with a three-vessel coronary artery bypass grafting. ??He should have the LAD his obtuse marginal and his PDA bypass. I was present during the entire procedure and personally dictated or confirmed the above report. Tera Torre MD Narrative 06/07/2020 12:19 PM TRANSPORTATION ATTENDANT Procedure: ??CORONARY ANGIOGRAM / iFR evaluation Patient: Nathan Wagner is a 74 y.o. male : ?? 1945 MR number: [id number] Date of Service: 06/07/2020 Container Maker: ?? Tera Torre MD Fellow: ?Betzaida Sy MD (Fellow) Referring physician: ?? No info available INDICATION: ??CHF/Dyspnea NYHA Class 3 PATIENT CLINICAL PROFILE: ??Nathan Wagner is a 74 y.o. male with a history of hypertension who has been followed for severe aortic stenosis. ??He underwent evaluation and recently became symptomatic. ??He was previously catheterization that showed moderate disease in 3 vessels and now presents for IFR evaluation before deciding on aortic valve replacement therapies. PROCEDURE: 1. The risks, benefits and alternatives of the procedures and moderate sedation were explained to the patient and informed consent was obtained. 2. The patient was brought to the construction laborer and placed on the table 3. Bilateral groins were prepped and draped in the usual sterile fashion. 4. The right femoral artery site was infiltrated with 2% lidocaine. 5. I provided direct face to face monitoring of intravenous conscious sedation which was administered using Fentanyl and Versed by an independently certified nurse for a total of 20 minutes. 6. The vessel was accessed using a Micropuncture kit and the modified Seldinger ?? technique with a Micro needle, a wire was threaded into the vessel, and a 6Fr Sheath was advanced over the wire into the vessel. 7. IFR evaluation of his LAD and circumflex equipment used was a 6 [place] EBU 3.5 guiding catheter an Omni pressure wire 8. IFR evaluation of his right coronary artery equipment used was a 6 [place] Citizen JR4 guiding catheter an Omni pressure wire 9. At the end of the procedure, arteriotomy was successfully closed and hemostasis ?achieved by a Celt 10. Patient was transferred to the holding area in stable condition. 11. There were no apparent complications. RESULTS: Patient was brought to the cardiac catheterization suite and prepped and draped in a sterile fashion. ??Access was obtained with ultrasound guidance the right common femoral artery and 6 [place] Citizen sheath was inserted without difficulty. ??Heparin was administered to obtain ACT of greater than 250 was maintained throughout the case. ??A 6 [place] Citizen EBU 3.5 guiding catheter was taken up and an Omni pressure wire normalized in the ascending aorta. ?? Guiding catheter sat well in the left main coronary artery. ??Wire was then placed into the distal LAD and serial IFR measurements were made which were markedly ischemic at 0.5-0.60. ??Pullback confirmed the jump up was at the proximal LAD lesion and did not include the left main. ??Next we directed the wire down the circumflex and again serial IFR measurements were made which were 0.80 consistent with severe ischemia in the circumflex distribution. ??IFR pullback showed a step-up was mostly near the ostium of the circumflex likely involving the left main. ??Final angiographic views showed KAITLYN 3 flow down all side branches no evidence of dissection or perforation and the LAD or circumflex. We then turned our attention to the right coronary where a 6 [place] Citizen JR4 guiding catheter was taken up. ??The Omni pressure wire was renormalized in the ascending aorta through the JR4 catheter. ??Catheter sat well in the ostium of the vessel but did have some dampening. ??It was adjusted and the wire placed into the PDA. ??Serial IFR measurements were made which were 0.78-0.83 consistent with severe ischemia in the right coronary artery distribution. ??IFR pullback was performed that showed a step-up at the moderate 60-70% lesion in the distal RCA prior to the bifurcation. ??Final angiographic views showed KAITLYN 3 flow down all side branches no evidence of dissection or perforation. ??We then turned our attention to the right common femoral artery whereby 6 [place] Citizen Celt device was placed without difficulty. COMPLICATIONS: None DIAGNOSTIC Tera Torre MD CV CARDIAC CATH PROCEDURES F inal Result * (ABNORMAL) POCT Activated clotting time, low range (06/07/2020 11:49 AM TRANSPORTATION ATTENDANT) ACT 281(H) 123 - 168 sec [facility] Blood specimen (specimen) 06/07/2020 11:49 AM TRANSPORTATION ATTENDANT 06/07/2020 11:49 AM TRANSPORTATION ATTENDANT Tera Torre MD LAB POCT ORDERABLES - DEVICE Final Result Performing Organization Address [facility] Co de Phone Number [facility] [place] [address] * (ABNORMAL) POCT Activated clotting time, low range (06/07/2020 11:36 AM TRANSPORTATION ATTENDANT) Pathologist [facility] ACT 209(H) 123 - 168 sec [facility] Blood specimen (specimen) 06/07/2020 11:36 AM TRANSPORTATION ATTENDANT 06/07/2020 11:36 AM TRANSPORTATION ATTENDANT Tera Torre MD LAB POCT ORDERABLES - DEVICE Final Result Performing Organization Address [facility] de Phone Number [facility] Department [place] [address] * Type and screen (06/07/2020 10:00 AM TRANSPORTATION ATTENDANT) Pathologist [facility] ABO Rh A Negative [facility] Jasmine, indirect Negative [facility] Blood specimen (specimen) 06/07/2020 10:00 AM TRANSPORTATION ATTENDANT 06/07/2020 10:08 AM TRANSPORTATION ATTENDANT Narrative [facility] - 06/07/2020 10:52 AM TRANSPORTATION ATTENDANT Has the patient had Daratumumab or Isatuximab in the past 6 months?->Unknown us Yaritza Osborn CLIENT INSIGHTS CONSULTANT LAB BLOOD BANK TEST ORDERABLE S Final Result Performing Organization Address [facility]/State/ZIP Co de Phone Number [facility] Department [place] [address] * (ABNORMAL) CBC without differential (06/07/2020 9:32 AM TRANSPORTATION ATTENDANT) WBC 6.1 3.8 - 9.9 K/cumm [facility] Hgb 13.3 13.0 - 17.5 g/dL [facility] Hct 38.7(L) 38.9 - 50.3 % [facility] Plt 209 150 - 400 K/cumm [facility] MPV 11.8 9.1 - 12.3 fL [facility] RBC 4.56 4.30 - 5.80 M/cumm [facility] MCV 84.9 81.3 - 96.4 fL [facility] MCH 29.2 27.1 - 33.3 pg [facility] MCHC 34.4 32.3 - 35.7 g/dL [facility] RDW CV 13.6 11.1 - 14.9 % [facility] RDW SD 42.4 35.7 - 48.1 fL [facility] NRBC abs 0.00 0.00 - 0.01 K/cumm [facility] Blood specimen (specimen) 06/07/2020 9:32 AM TRANSPORTATION ATTENDANT 06/07/2020 12:07 PM TRANSPORTATION ATTENDANT Narrative [facility] - 06/07/2020 12:14 PM TRANSPORTATION ATTENDANT To be drawn after hydration bolus complete us Yaritza Osborn NP LAB BLOOD ORDERABLES Final Re sult [facility] Department [place] [address] documented in this encounter Visit Diagnoses Diagnosis Coronary artery disease involving anvik coronary artery of anvik heart without angina pectoris Aortic valve stenosis, etiology of cardiac valve disease unspecified Coronary artery disease involving anvik coronary artery of anvik heart without angina pectoris documented in this encounter Administered Medications Inactive Administered Medications - up to 3 most recent administrations Medication Order MAR Action Action Date Dose Rate Site aspirin chewable tablet 81 mg 81 mg, oral, Once, On Sat06/07/20 at 1045, For 1 dose, Pre-Procedure (CV) Given 06/07/2020 10:08 AM TRANSPORTATION ATTENDANT 81 mg fentaNYL (SUBLIMAZE) preservative free injection As needed, Starting on Sat06/07/20 at 1119, Intra-Procedure (CV) Given 06/07/2020 11:26 AM TRANSPORTATION ATTENDANT 25 mcg Given 06/07/2020 11:19 AM TRANSPORTATION ATTENDANT 25 mcg heparin 1,000 unit/mL injection As needed, Starting on Sat06/07/20 at 1130, Intra-Procedure (CV) Given 06/07/2020 11:39 AM TRANSPORTATION ATTENDANT 3,000 Units Given 06/07/2020 11:30 AM TRANSPORTATION ATTENDANT 6,000 Units ioversoL (OPTIRAY 350) injection As needed, Starting on Sat06/07/20 at 1159, Intra-Procedure (CV) Given 06/07/2020 11:59 AM TRANSPORTATION ATTENDANT 75 mL lidocaine (XYLOCAINE) 10 mg/mL (1 %) injection As needed, Starting on Sat06/07/20 at 1123, Intra-Procedure (CV), Indications: Administration of Local AnesthesiaIndications:Administratio n of Local Anesthesia Given 06/07/2020 11:23 AM TRANSPORTATION ATTENDANT 10 mL Right Groin midazolam (VERSED) 1 mg/mL preservative free injection Administer over 2 Minutes, As needed, Starting on Sat06/07/20 at 1119, Intra-Procedure (CV) Given 06/07/2020 11:26 AM TRANSPORTATION ATTENDANT 1 mg Given 06/07/2020 11:19 AM TRANSPORTATION ATTENDANT 1 mg niCARdipine (CARDENE) 1 mg/10 mL in sodium chloride 0.9% (premix) As needed, Starting on Sat06/07/20 at 1140, Intra-Procedure (CV) Given 06/07/2020 11:40 AM TRANSPORTATION ATTENDANT 200 mcg sodium chloride 0.9% bolus 290 mL 290 mL (rounded from 289.8 mL = 3 mL/kg ? 96.6 kg), intravenous, Once, On Sat06/07/20 at 1015, For 1 dose, Pre-Procedure (CV), Immediately on arrival (at least 30 minutes prior to procedure) New Bag 06/07/2020 10:08 AM TRANSPORTATION ATTENDANT 290 mL sodium chloride 0.9% flush 0.5-20 mL 0.5-20 mL, intra-catheter, As needed, line care, Starting on Sat06/07/20 at 0931, Pre-Procedure (CV), Flush volume based on line type and size. Flush before and after each use. , Indications: FlushingIndications:Flushi ng sodium chloride 0.9% infusion 1 mL/kg/hr ? 96.6 kg (96.6 mL/hr), intravenous, Continuous, Starting on Sat06/07/20 at 1015, Pre-Procedure (CV) New Bag 06/07/2020 10:08 AM TRANSPORTATION ATTENDANT 1 mL/kg/hr 96.6 mL/hr sodium chloride 0.9% infusion 30 mL/hr, intravenous, Continuous, Starting on Sat06/07/20 at 1015 Rate/Dose Change 06/07/2020 11:41 AM TRANSPORTATION ATTENDANT 999 mL/hr 999 mL/hr New Bag 06/07/2020 10:08 AM TRANSPORTATION ATTENDANT 30 mL/hr 30 mL/hr documented in this encounter Active and Recently Administered Medications Times are shown in TRANSPORTATION ATTENDANT. Scheduled Medication Order 06/05/2020 06/06/2020 06/07/2020 aspirin chewable tablet 81 mg (COMPLETED) 81 mg, oral, Once, On Sat06/07/20 at 1045, For 1 dose, Pre-Procedure (CV) 1008 (Given - Provid er: Aby Lawson RN) sodium chloride 0.9% bolus 290 mL (COMPLETED)(Linked Group 1) 290 mL (rounded from 289.8 mL = 3 mL/kg ? 96.6 kg), intravenous, Once, On Sat06/07/20 at 1015, For 1 dose, Pre-Procedure (CV), Immediately on arrival (at least 30 minutes prior to procedure) 1008 (New Bag - Prov ider: Aby Lawson RN) Continuous Medication Order 06/05/2020 06/06/2020 06/07/2020 sodium chloride 0.9% infusion(Linked Group 1) 1 mL/kg/hr ? 96.6 kg (96.6 mL/hr), intravenous, Continuous, Starting on Sat06/07/20 at 1015, Pre-Procedure (CV) 1008 (New Bag - Prov ider: Aby Lawson RN)1412 (Stopped - Provider: Heide Moore RN) sodium chloride 0.9% infusion 30 mL/hr, intravenous, Continuous, Starting on Sat06/07/20 at 1015 1008 (New Bag - Prov ider: Aby Lawson RN)1141 (Rate/Dose Change - Provider: Sam Eaton RN)1412 (Stopped - Provider: Heide Moore RN) PRN Medication Order 06/05/2020 06/06/2020 06/07/2020 acetaminophen (TYLENOL) tablet 650 mg 650 mg, oral, Every 4 hours PRN, 1st line for pain, fever, fever greater than 38.3 C, Starting on Sat06/07/20 at 1342, Recovery (CV), Indications: Fever, Pain fentaNYL (SUBLIMAZE) preservative free injection (CANCELED) As needed, Starting on Sat06/07/20 at 1119, Intra-Procedure (CV) 1119 (Given - Provid er: Sam Eaton RN)1126 (Given - Provider: Sam Eaton RN) heparin 1,000 unit/mL injection (CANCELED) As needed, Starting on Sat06/07/20 at 1130, Intra-Procedure (CV) 1130 (Given - Provid er: Tera Torre MD)1139 (Given - Provider: Tera Torre MD) ioversoL (OPTIRAY 350) injection (CANCELED) As needed, Starting on Sat06/07/20 at 1159, Intra-Procedure (CV) 1159 (Given - Provid er: Tera Torre MD) lidocaine (XYLOCAINE) 10 mg/mL (1 %) injection (CANCELED) As needed, Starting on Sat06/07/20 at 1123, Intra-Procedure (CV), Indications: Administration of Local Anesthesia 1123 (Given - Provid er: Betzaida Sy MD) midazolam (VERSED) 1 mg/mL preservative free injection (CANCELED) Administer over 2 Minutes, As needed, Starting on Sat06/07/20 at 1119, Intra-Procedure (CV) 1119 (Given - Provid er: Sam Eaton RN)1126 (Given - Provider: Sam Eaton RN) niCARdipine (CARDENE) 1 mg/10 mL in sodium chloride 0.9% (premix) (CANCELED) As needed, Starting on Sat06/07/20 at 1140, Intra-Procedure (CV) 1140 (Given - Provid er: Tera Torre MD) sodium chloride 0.9% flush 0.5-20 mL 0.5-20 mL, intra-catheter, As needed, line care, Starting on Sat06/07/20 at 0931, Pre-Procedure (CV), Flush volume based on line type and size. Flush before and after each use. , Indications: Flushing 1110 (JUN Hold - Pro vider: Automatic Transfer Provider - Reason: Patient not available)1901 (JUN Unhold - Provider: Automatic Discharge Provider) Linked Groups Order Group 1: sodium chloride 0.9% bolus 290 mL (COMPLETED)Jump to med 290 mL (rounded from 289.8 mL = 3 mL/kg ? 96.6 kg), intravenous, Once, On Sat06/07/20 at 1015, For 1 dose, Pre-Procedure (CV), Immediately on arrival (at least 30 minutes prior to procedure) Followed by sodium chloride 0.9% infusionJump to med 1 mL/kg/hr ? 96.6 kg (96.6 mL/hr), intravenous, Continuous, Starting on Sat06/07/20 at 1015, Pre-Procedure (CV) documented in this encounter Orders Medications Ordered That Ernst ht Not Have Been Administered Count Last Ordered Date First Ordered Date acetaminophen (TYLENOL) tablet 650 mg 12/2020 sodium chloride 0.9% flush 0.5-20 mL 12/2020 CORE MEASURES Count Last Ordered Date First Ord ered Date REASON FOR NO VTE PROPHYLAXIS AT ADMISSION 1 06/07/2020 documented in this encounter Care Teams Food Products Sales Representative Relationship Specialty Start Date End Date Martin López MD [address] [place] [address] PCP - General 06/27/12 Khalif Ca MD [address] [place] [address] Referring Physician Cardiology 04/08/19 documented as of this encounter
--- OUTSIDE RECORDS SUMMARY | 2024-04-20 00:17 | XMS_ITS | Encounter Summary ---
Author Organization [facility] Address [address] [place] [address] Care Team Providers Care Lining Closer Name Role Phone Martin López MD Primary Care Provider Khalif Ca MD Unavailable [phone] Encounter Details Date Type Department Care Team (Late st Contact Info) Description 06/20/2020 Orders Only [facility] Testing Site - [address] [place] [address] Francia Worley MD [address] [facility] [id number] [place] [address] Pre-procedure lab exam (Primary Dx) Social History Tobacco Use Types Packs/Day Years Used Date Smoking Tobacco: Never Smokeless Tobacco: Never Alcohol Use Standard Drinks/Week Comments Yes 0 (1 standard drink = 0.6 oz pur e alcohol) rare Sex and Gender Information Value Date Recorded Sex Assigned at Not on file Legal Sex Male 9:13 PM ENTRY LEVEL ELECTRICAL ENGINEER Gender Identity Male 07/25/2023 3:40 PM CDT Sexual Orientation Straight 10/28/2019 9: 50 AM CDT documented as of this encounter Progress Notes * Teresa Sanchez - 06/20/2020 10:04 AM CST pre procedure covid orders placed at the [place] location on 06/20/20. Order Information Order #: [id number] Procedure: REQUEST FOR AMBULATORY COLLECTION SITE TESTING - ADULT Order Date: 06/20/2020 Proc Category: Outpatient Referral Orderables Priority: Routine Status: ?? Class: Internal Referral Ordering User: Hien Acevedo B.A. Auth Provider: FRANCIA WORLEY Provider: Francia Worley MD Diagnosis: ?? Department: [facility] 8a Sched Instruct: ?? Comment: ?? Order Specific Questions Question Answer Comment Testing types: Pre-procedure ?? Date of Px/chemo/treatment/placement/transfer 06/23/2020 ?? Testing site patient will be sent to: [place] ?? Date testing requested: 06/20/2020 ?? Testing: COVID-RNA ?? Does the patient currently work in a healthcare facility with direct patient contact? No ?? Is the patient a resident of a congregate care or living setting? No ?? Is the patient ? No ?? Please select the performing region: [facility] ?? Referral Notes Y LEVEL ELECTRICAL ENGINEER documented in this encounter Miscellaneous Notes * Addendum Note - Odalis Monrela - 06/20/2020 10:04 AM CSTAddended by: ODALIS MONREAL on: 06/20/2020 04:19 PM Modules accepted: Orders Y LEVEL ELECTRICAL ENGINEER documented in this encounter Plan of Treatment Not on file documented as of this encounter Results * COVID-19 Coronavirus RNA Nasopharyngeal (06/20/2020 2:09 PM ENTRY LEVEL ELECTRICAL ENGINEER) Pathologist [facility] COVID-19 RNA Not Detected [facility] Comment: Testing performed as a component of ??a specimen pool. ??Negative results should be treated as presumptive and, if inconsistent with clinical signs and symptoms or necessary for patient management, pooled samples should be tested individually. Negative results do not preclude SARS-CoV-2 infection and must not be used as the sole basis for patient management decisions. Negative results must be considered in the context of a patient? s recent exposures, history, presence of clinical signs and symptoms consistent with COVID-19. Interpretive Data Synonyms for this test include: PCR and NAAT . ??Testing performed by the [facility]. The 2019-Novel Coronavirus Assay (COVID-19) Real Time RT-PCR assay is for in vitro diagnostic use under FDA emergency use authorization only. A negative RT-PCR result does not preclude infection with COVID-19 and should not be used as the sole basis for treatment or other patient management decisions. Additional sample types have been validated according to CLIA regulations. ?? Current Interpretive Data was last revised on June 02, 2020. First COVID-19 test? Unknown [facility] Comment:Testing performed by : [facility], [address] [facility], [address] Employeed in healthcare? No [facility] Comment:Testing performed by : [facility], [address] [place] [address], [id number] status? No [facility] Comment:Testing performed by : [facility], [address] [place] [address], [id number] Group care resident? No [facility] Comment:Testing performed by : [facility], [address] [place] [address], [id number] Hospitalized? Unknown [facility] Comment:Testing performed by : [facility], [address] [place] [address], [id number] Is patient in ICU? Unknown [facility] Comment:Testing performed by : [facility], [address] [place] [address], [id number] Symptomatic as defined by CDC? No [facility] Comment:Testing performed by : [facility], [address] [place] [address], [id number] Nasopharyngeal 06/20/2020 2: 09 PM ENTRY LEVEL ELECTRICAL ENGINEER 06/20/2020 5:56 PM ENTRY LEVEL ELECTRICAL ENGINEER Narrative [facility] - 06/21/2020 6:15 AM ENTRY LEVEL ELECTRICAL ENGINEER What is the reason for testing?->Screening prior to scheduled procedure or surgery us Francia Worley MD LAB MICROBIOLOGY - GENERAL ORDER DAJA Final Result [facility] [address] [facility] Department [place] [address] documented in this encounter Visit Diagnoses Diagnosis Pre-procedure lab exam- Primary Pre-procedural laboratory examination Pre-procedure lab exam Pre-procedural laboratory examination documented in this encounter Care Teams Lining Closer Relationship Specialty Start Date End Date Martin López MD [address] [place] [address] PCP - General 06/27/12 Khalif Ca MD [address] [place] [address] Referring Physician Cardiology 04/08/19 documented as of this encounter
--- OUTSIDE RECORDS SUMMARY | 2024-04-20 00:17 | XMS_ITS | Encounter Summary ---
Author Organization [facility] Address [address] [place] [address] Care Team Providers Care Affiliate Manager Name Role Phone Martin López MD Primary Care Provider Khalif Ca MD Unavailable [phone] Reason for Referral * Diagnostic Imaging (Routine) - Closed Specialty Diagnoses / Procedures Referred By Carmenac t Referred To Contact Diagnoses Pre-operative exam Procedures XR Chest PA Lateral 2 View Romelia Keith NP Phone: tel: fax: [address] [phone] Referral ID Status Reason Start Date Expiration Date Visits Re quested Visits Authorized [id number] Closed 06/17/2020 07/17/2021 1 1 [facility] Reason for Visit * Diagnostic Imaging (Routine) - Closed Specialty Diagnoses / Procedures Referred By Conthoma bell Referred To Contact Diagnoses Pre-operative exam Procedures XR Chest PA Lateral 2 View Romelia Keith NP Phone: tel: fax: [address] [phone] Referral ID Status Reason Start Date Expiration Date Visits Re quested Visits Authorized [id number] Closed 06/17/2020 07/17/2021 1 1 Encounter Details Date Type Department Care Team (Latest Contact Info) Description 06/17/2020 5:45 PM ENGINEHOUSE BRAKEMAN - 06/17/2020 11:59 PM ENGINEHOUSE BRAKEMAN Hospital Encounter [facility] [address] [place] [address] Romelia Keith NP [address] [place] [address] Ady Gauthier MD [address] [place] [address] Pre-operative exam Discharge Disposition: Discharge to home or self care Social History Tobacco Use Types Packs/Day Years Used Date Smoking Tobacco: Never Smokeless Tobacco: Never Alcohol Use Standard Drinks/Week Comments Yes 0 (1 standard drink = 0.6 oz pur e alcohol) rare Sex and Gender Information Value Date Recorded Sex Assigned at Not on file Legal Sex Male 9:13 PM ENGINEHOUSE BRAKEMAN Gender Identity Male 07/25/2023 3:40 PM CDT [...] day with meals 60 tablet 1 06/28/2020 oxyCODONE (ROXICODONE) 5 mg immediate release tabletIndication [...] mouth daily 30 tablet 1 06/29/2020 1 amLODIPine (NORVASC) 10 mg tabletIndication s:hypertension Take [...] day 30 tablet 1 06/28/2020 2 metoprolol XL (TOPROL-XL) 25 mg extended release tablet Take 0.5 tablets (12.5 mg total) by mouth daily 15 tablet 1 06/09/2020 1 oxyCODONE (ROXICODONE) 5 mg immediate release tabletIndication s:Pain Take 1 tablet (5 mg total) by mouth every 4 (four) hours as needed for pain 30 tablet 06/28/[address] (PROTONIX) 40 mg EC tabletIndication [...] VIEWS Schedule Routine, Read Routine (OP Routine) 06/17/2020 6:15 PM ENGINEHOUSE BRAKEMAN Pre-operative exam documented in this encounter Results * XR Chest PA Lateral 2 View (06/17/2020 6:15 PM ENGINEHOUSE BRAKEMAN) Anatomical Region Laterality Modality Body, Chest N/A Computed Radiogr aphy 06/18/2020 11:1 5 AM ENGINEHOUSE BRAKEMAN Impressions 06/18/2020 11:15 AM ENGINEHOUSE BRAKEMAN No prior chest radiographs available for comparison. Heart size within normal limits. Tortuous thoracic aorta seen. 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 The lungs are clear without focal consolidation or pulmonary edema. No pneumothorax or pleural effusion seen. Probable nipple shadows seen projecting over both lower lungs. Electronically signed by: Pipe Mercedes M.D. Narrative 06/18/2020 11:15 AM ENGINEHOUSE BRAKEMAN EXAMINATION: 2 view chest radiograph Procedure Note Pipe Mercedes MD - 06/18/2020 EXAMINATION: 2 view chest radiograph IMPRESSION: No prior chest radiographs available for comparison. Heart size within normal limits. Tortuous thoracic aorta seen. 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 The lungs are clear without focal consolidation or pulmonary edema. No pneumothorax or pleural effusion seen. Probable nipple shadows seen projecting over both lower lungs. Electronically signed by: Pipe Mercedes M.D. Romelia Keith NETWORK CONTROLLER IMG XR PROCEDURES Final Result documented in this encounter Visit Diagnoses Diagnosis Pre-operative exam Unspecified pre-operative examination documented in this encounter Care Teams Affiliate Manager Relationship Specialty Start Date End Date Martin López MD [address] [place] [address] PCP - General 06/27/12 Khalif Ca MD [address] [place] [address] Referring Physician Cardiology 04/08/19 documented as of this encounter
--- OUTSIDE RECORDS SUMMARY | 2024-04-20 00:17 | XMS_ITS | Encounter Summary ---
Author Organization [facility] Address [address] [place] [address] Phone Care Team Providers Care [employer] Name Role Phone Martin López MD Primary Care Provider Khalif Ca MD Unavailable [phone] Encounter Details Date Type Department Care Team (Late st Contact Info) Description 06/10/2020 Telephone [facility] Surgery [address] [place] [address] [place] [address] Hien Acevedo B.A. Social History Tobacco Use Types Packs/Day Years Used Date Smoking Tobacco: Never Smokeless Tobacco: Never Sex and Gender Information Value Date Recorded Sex Assigned at Not on file Legal Sex Male 9:13 PM POWER DISTRIBUTION ENGINEER Gender Identity Male 07/25/2023 3:40 PM CDT Sexual Orientation Straight 10/28/2019 9: 50 AM CDT documented as of this encounter Miscellaneous Notes * Telephone Encounter - Corie Tapia RN - 06/10/2020 12:12 PM POWER DISTRIBUTION ENGINEER He is getting a bioprosthetic valve. R DISTRIBUTION ENGINEER * Telephone Encounter - Hien Acevedo B.A. - 06/10/2020 10:41 AM POWER DISTRIBUTION ENGINEER What type of valve will he be getting? R DISTRIBUTION ENGINEER documented in this encounter Plan of Treatment Not on file documented as of this encounter Visit Diagnoses Not on filedocumented in this encounter Care Teams [employer] Relationship Specialty Start Date End Date Martin López MD [address] [facility] [address] [place] [address] PCP - General 06/27/12 Khalif Ca MD [address] [facility] [address] [place] [address] Referring Physician Cardiology 04/08/19 documented as of this encounter
--- OUTSIDE RECORDS SUMMARY | 2024-04-20 00:17 | XMS_ITS | Encounter Summary ---
Author Organization [facility] Healthcare Address [address] [place] [address] Care Team Providers Care Siebel Solution Architect Name Role Phone Martin López MD Primary Care Provider Khalif Ca MD Unavailable [phone] Encounter Details Date Type Department Care Team (Latest Contact Info) Description 06/07/2020 7:37 AM COIN MACHINE SUPERVISOR - 06/07/2020 2:35 PM COIN MACHINE SUPERVISOR Hospital Encounter [facility] [address] [place] [address] Tera Torre MD [address] [facility] [address] [place] [address] Coronary artery disease involving [place] coronary artery of [place] heart without angina pectoris; Aortic valve stenosis, etiology of cardiac valve disease unspecified Discharge Disposition: Discharge to home or self care Social History Tobacco Use Types Packs/Day Years Used Date Smoking Tobacco: Never Smokeless Tobacco: Never Sex and Gender Information Value Date Recorded Sex Assigned at Not on file Legal Sex Male 9:13 PM COIN MACHINE SUPERVISOR Gender Identity Male 07/25/2023 3:40 PM CDT Sexual Orientation Straight 10/28/2019 9: 50 AM CDT documented as of this encounter Last Filed Vital Signs Vital Sign Reading Time Taken Comments Blood Pressure 100/60 06/07/2020 2:00 PM COIN MACHINE SUPERVISOR Pulse 74 06/07/2020 2:00 PM COIN MACHINE SUPERVISOR Temperature 36.9 ??C (98.5 ??F) 06/07/2020 9:50 AM CS T Respiratory Rate 20 06/07/2020 2:00 PM COIN MACHINE SUPERVISOR Oxygen Saturation 95% 06/07/2020 2:00 PM COIN MACHINE SUPERVISOR Inhaled Oxygen Concentration - - Weight 96.1 kg (211 lb 13.8 oz) 06/07/2020 9:50 AM COIN MACHINE SUPERVISOR Height 176.5 cm (5' 9.5 ) 06/07/2020 9:50 AM COIN MACHINE SUPERVISOR Body Mass Index 30.84 06/07/2020 9:50 AM COIN MACHINE SUPERVISOR documented in this encounter Discharge Diagnoses Diagnosis Atherosclerotic heart disease of [place] coronary artery without angina pectoris - ATHEROSCLEROTIC HEART DISEASE OF [place] CORONARY ARTERY WITHOUT ANGINA PECTORIS Essential (primary) hypertension - ESSENTIAL (PRIMARY) HYPERTENSION Unspecified essential hypertension Nonrheumatic aortic (valve) stenosis - NONRHEUMATIC AORTIC (VALVE) STENOSIS documented in this encounter Discharge Instructions * Discharge Instructions* Heide Moore RN - 06/07/2020 1:47 PM COIN MACHINE SUPERVISOR Discharge Instructions For Cardiac Catheterization (Femoral Approach) [...] M-F call our Outpatient Nurse Coordinators at [phone]. If you need to speak to someone after 5pm please call [facility] at [phone] and ask the head operator sulfide topage the Cardiac Studio Musician Fellow quality compliance consultant. MACHINE SUPERVISOR documented in this encounter Medications at [...] Take 10 mg by mouth every morning atorvastatin (LIPITOR) 10 mg tabletIndication s:hyperlipidemia Take [...] Aby Lawson RN - 06/07/2020 2:35 PM COIN MACHINE SUPERVISOR PT returns from procedure alert ad oriented [...] order via wheelchair, with responsible caregiver spouse. MACHINE SUPERVISOR * Pre-Sedation Documentation - Yaritza Munguia NP [...] Tera Torre MD at 06/07/2020 11:01 AM COIN MACHINE SUPERVISOR MACHINE SUPERVISOR MACHINE SUPERVISOR * Pre-Cardiac Catheterization Workup and H&P - Yaritza Munguia NP - 06/03/2020 3:14 PM CST PRE-CARDIAC CATHETERIZATION WORKUP Patient Name: Nathan Wagner Patient Patient : 1945 Date of Procedure: 06/07/2020 ORDERING MANAGEMENT PLANNER: Surgeon(s): Tera Torre MD Procedure(s): CORONARY FLOW VELOCITY (CFR) / INSTANTANEOUS FLOW VELOCITY (IFR), 1ST VESSEL (+) [id number] Requested Diagnostic: [] Coronary Angiograms Only [] [...] HLD, severe aortic stenosis. Patient is s/p C on 05-25-20 at [facility] aspart of TAVR evaluation which revealed Moderate [...] Yes [] No [] Contraindicated Indications for Studio Musician visit (Select all that apply): [] ACS [...] ESRD [] Dialysis [] HD []PD: Prior OK: [] Yes [x] No If Yes, Most Recent OK Date: Tobacco Use Social History Tobacco Use [...] Yes, Newly Diagnosed: [] Yes [] No [facility] Class: [] Class I [] Class [...] severe and CAD here for IFR to [facility] Clinical Frailty Scale: [] 1: Very [...] and Assessment Completed by: Name: Yaritza Munguia HYDRAULIC ROCK DRILL OPERATOR-C Date: 06/07/20 Time: 1000 Cosigned by Tera Torre MD at 06/07/2020 11:01 AM COIN MACHINE SUPERVISOR MACHINE SUPERVISOR MACHINE SUPERVISOR documented in this encounter Plan of Treatment Not on file documented as of this encounter Procedures Procedure Name Priority Date/Time Associated Diagnosis Comments CORONARY FLOW VELOCITY (CFR) / INSTATANEOUS FLOW VELOCITY (IFR), 1ST VESSEL Routine 06/07/2020 11:59 AM COIN MACHINE SUPERVISOR Coronary artery disease involving [place] coronary artery of [place] heart without angina pectoris POCT ACTIVATED CLOTTING TIME, LOW RANGE Routine 06/07/2020 11:49 AM COIN MACHINE SUPERVISOR POCT ACTIVATED CLOTTING TIME, LOW RANGE Routine 06/07/2020 11:36 AM COIN MACHINE SUPERVISOR TYPE AND SCREEN Timed 06/07/2020 10:00 AM COIN MACHINE SUPERVISOR CBC WITHOUT DIFFERENTIAL Routine 06/07/2020 9:32 AM COIN MACHINE SUPERVISOR documented in this encounter Results * CORONARY FLOW VELOCITY (CFR) / INSTATANEOUS FLOW VELOCITY (IFR), 1ST VESSEL (06/07/2020 11:59 AM COIN MACHINE SUPERVISOR) Anatomical Region Laterality Modality X-Ray Angiograph y Impressions 06/07/2020 12:19 PM COIN MACHINE SUPERVISOR 1. Severe three-vessel coronary artery disease with [...] Tera Torre MD Narrative 06/07/2020 12:19 PM COIN MACHINE SUPERVISOR Procedure: ??CORONARY ANGIOGRAM / iFR evaluation Patient: Nathan Wagner is a 74 y.o. male : ?? 1945 MR number: [id number] Date of Service: 06/07/2020 Personal Lines Agent: ?? Tera Torre MD Fellow: ?Betzaida Sy [...] 2. The patient was brought to the union laborer and placed on the table 3. [...] and circumflex equipment used was a 6 Syrian EBU 3.5 guiding catheter an Omni pressure wire 8. IFR evaluation of his right coronary artery equipment used was a 6 Syrian JR4 guiding catheter an Omni pressure wire [...] the right common femoral artery and 6 Syrian sheath was inserted without difficulty. ??Heparin was administered to obtain ACT of greater than 250 was maintained throughout the case. ??A 6 Syrian EBU 3.5 guiding catheter was taken up [...] to the right coronary where a 6 Syrian JR4 guiding catheter was taken up. ??The [...] the right common femoral artery whereby 6 Syrian Celt device was placed without difficulty. COMPLICATIONS: None DIAGNOSTIC us Tera Torre MD CV CARDIAC CATH PROCEDURES F inal Result * (ABNORMAL) POCT Activated clotting time, low range (06/07/2020 11:49 AM COIN MACHINE SUPERVISOR) ACT 281(H) 123 - 168 sec [facility] Blood specimen (specimen) 06/07/2020 11:49 AM COIN MACHINE SUPERVISOR 06/07/2020 11:49 AM COIN MACHINE SUPERVISOR us Tera Torre MD LAB POCT ORDERABLES - DEVICE Final Result Performing Organization Address [facility] Co de Phone Number [facility] [place] [address] * (ABNORMAL) POCT Activated clotting time, low range (06/07/2020 11:36 AM COIN MACHINE SUPERVISOR) ACT 209(H) 123 - 168 sec [facility] Blood specimen (specimen) 06/07/2020 11:36 AM COIN MACHINE SUPERVISOR 06/07/2020 11:36 AM COIN MACHINE SUPERVISOR us Tera Torre MD LAB POCT ORDERABLES - DEVICE Final Result Performing Organization Address [facility] Co de Phone Number [facility] [place] [address] * Type and screen (06/07/2020 10:00 AM COIN MACHINE SUPERVISOR) Pathologist [facility] ABO Rh A Negative [facility] Jasmine, indirect Negative [facility] Blood specimen (specimen) 06/07/2020 10:00 AM COIN MACHINE SUPERVISOR 06/07/2020 10:08 AM COIN MACHINE SUPERVISOR Narrative [facility] - 06/07/2020 10:52 AM COIN MACHINE SUPERVISOR Has the patient had Daratumumab or Isatuximab in the past 6 months?->Unknown us Yaritza Osborn RESPIRATORY ASSISTANT LAB BLOOD BANK TEST ORDERABLE S Final Result Performing Organization Address [facility] Co de Phone Number [facility] [place] [address] * (ABNORMAL) CBC without differential (06/07/2020 9:32 AM COIN MACHINE SUPERVISOR) WBC 6.1 3.8 - 9.9 K/cumm [facility] Hgb 13.3 13.0 - 17.5 g/dL [facility] Hct 38.7(L) 38.9 - 50.3 % [facility] Plt 209 150 - 400 K/cumm [facility] MPV 11.8 9.1 - 12.3 fL [facility] RBC 4.56 4.30 - 5.80 M/cumm [facility] MCV 84.9 81.3 - 96.4 fL [facility] MCH 29.2 27.1 - 33.3 pg [facility] MCHC 34.4 32.3 - 35.7 g/dL [facility] RDW CV 13.6 11.1 - 14.9 % [facility] RDW SD 42.4 35.7 - 48.1 fL [facility] NRBC abs 0.00 0.00 - 0.01 K/cumm [facility] Blood specimen (specimen) 06/07/2020 9:32 AM COIN MACHINE SUPERVISOR 06/07/2020 12:07 PM COIN MACHINE SUPERVISOR Narrative [facility] - 06/07/2020 12:14 PM COIN MACHINE SUPERVISOR To be drawn after hydration bolus complete us Yaritza Osborn NP LAB BLOOD ORDERABLES Final Re sult [facility] [place] [address] documented in this encounter Visit Diagnoses Diagnosis Coronary artery disease involving [place] coronary artery of [place] heart without angina pectoris Aortic valve stenosis, etiology of cardiac valve disease unspecified Coronary artery disease 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 96.6 kg), intravenous, Once, On Sat06/07/20 at 1015, For 1 dose, Pre-Procedure (CV), Immediately on arrival (at least 30 minutes prior to procedure) New Bag 06/07/2020 10:08 AM COIN MACHINE SUPERVISOR 290 mL sodium chloride 0.9% flush 0.5-20 mL 0.5-20 mL, intra-catheter, As needed, line care, Starting on Sat06/07/20 at 0931, Pre-Procedure (CV), Flush volume based on line type and size. Flush before and after each use. , Indications: FlushingIndications:Flu shing sodium chloride 0.9% infusion 1 mL/kg/hr ? 96.6 kg (96.6 mL/hr), intravenous, Continuous, Starting on Sat06/07/20 at 1015, Pre-Procedure (CV) New Bag 06/07/2020 10:08 AM COIN MACHINE SUPERVISOR 1 mL/kg/hr 96.6 mL/hr sodium chloride 0.9% infusion 30 mL/hr, intravenous, Continuous, Starting on Sat06/07/20 at 1015 Rate/Dose Change 06/07/2020 11:41 AM COIN MACHINE SUPERVISOR 999 mL/hr 999 mL/hr New Bag 06/07/2020 10:08 AM COIN MACHINE SUPERVISOR 30 mL/hr 30 mL/hr documented in this encounter Active and Recently Administered Medications Times are shown in COIN MACHINE SUPERVISOR. Scheduled Medication Order 06/05/2020 06/06/2020 06/07/2020 aspirin [...] 1008 (New Bag - Prov ider: Aby Lawson, RN)1412 (Stopped - Provider: Heide Moore, RN) sodium chloride 0.9% infusion 30 mL/hr, intravenous, Continuous, Starting on Sat06/07/20 at 1015 1008 (New Bag - Prov ider: Aby Lawson, RN)1141 (Rate/Dose Change - Provider: Sam Eaton RN)1412 (Stopped - Provider: Heide Moore, RN) PRN Medication Order 06/05/2020 06/06/2020 06/07/2020 [...] Date acetaminophen (TYLENOL) tablet 650 mg 1 12/2020 fentaNYL (SUBLIMAZE) preserv ative free injection 1 06/07/2020 heparin 1,000 unit/mL injection 1 ioversoL (OPTIRAY 350) injection 1 06/07/19 lidocaine (XYLOCAINE) 10 mg/ mL (1 %) injection 06/07/2020 midazolam (VERSED) 1 mg/mL p reservative free injection 1 06/07/2020 niCARdipine (CARDENE) 1 mg/1 0 mL in sodium chloride 0.9% (premix) 1 06/07/2020 sodium chloride 0.9% flush 0.5-20 mL 1 12/2020 CORE MEASURES Count Last Ordered Date First Ord ered Date REASON FOR NO VTE PROPHYLAXIS AT ADMISSION 1 06/07/2020 documented in this encounter Care Teams Siebel Solution Architect Relationship Specialty Start Date End Date Martin López MD [address] [place] [address] PCP - General 06/27/12 Khalif Ca MD [address] [place] [address] Referring Physician Cardiology 04/08/19 documented as of this encounter
--- OUTSIDE RECORDS SUMMARY | 2024-04-20 00:17 | XMS_ITS | Encounter Summary ---
Author Organization [facility] Address [address] [facility] [address] [place] [address] Phone Care Team Providers Care Bump Grader Operator Name Role Phone Martin López MD Primary Care Provider Khalif Ca MD Unavailable [phone] Encounter Details Date Type Department Care Team (Late st Contact Info) Description 06/20/2020 Orders Only [facility] Surgery [address] [facility] Medicine 8th [place] [address] [place] [address] Francia Worley MD [address] [facility] [id number] [place], [place] [id number] Social History Tobacco Use Types Packs/Day Years Used Date Smoking Tobacco: Never Smokeless Tobacco: Never Alcohol Use Standard Drinks/Week Comments Yes 0 (1 standard drink = 0.6 oz pur e alcohol) rare Sex and Gender Information Value Date Recorded Sex Assigned at Not on file Legal Sex Male 9:13 PM XEROX MACHINE MECHANIC Gender Identity Male 07/25/2023 3:40 PM CDT Sexual Orientation Straight 10/28/2019 9: 50 AM CDT documented as of this encounter Plan of Treatment Not on file documented as of this encounter Visit Diagnoses Not on filedocumented in this encounter Care Teams Bump Grader Operator Relationship Specialty Start Date End Date Martin López MD [address] [facility] [address] [place] [address] PCP - General 06/27/12 Khalif Ca MD [address] [facility] [address] [place] [address] Referring Physician Cardiology 04/08/19 documented as of this encounter
--- OUTSIDE RECORDS SUMMARY | 2024-04-20 00:17 | XMS_ITS | Encounter Summary ---
Author Organization [facility] Address [address] [place] [address] Phone Care Team Providers Care Card Setter Name Role Phone Martin López MD Primary Care Provider Khalif Ca MD Unavailable [phone] Encounter Details Date Type Department Care Team (Late st Contact Info) Description 06/01/2020 Telephone [facility] Cardiology [address] [facility] 8th [place] [address] [place] [id number] Tera Torre MD [address] [place], [place] [id number] Social History Tobacco Use Types Packs/Day Years Used Date Smoking Tobacco: Never Smokeless Tobacco: Never Sex and Gender Information Value Date Recorded Sex Assigned at Not on file Legal Sex Male 9:13 PM MICROELECTRONICS ASSEMBLER Gender Identity Male 07/25/2023 3:40 PM CDT Sexual Orientation Straight 10/28/2019 9: 50 AM CDT documented as of this encounter Miscellaneous Notes * Telephone Encounter - Tasha Jo RN - 06/02/2020 10:26 AM CST Called pt, agreeable to set up IFr for 2\9. Letter to be sent to pt via [employer]. OELECTRONICS ASSEMBLER * Telephone Encounter - Tasha Jo RN - 06/01/2020 3:00 PM CST Pt needs set up for IFOlivia Torre OELECTRONICS ASSEMBLER * Telephone Encounter - Tasha Jo RN - 06/01/2020 1:00 PM CST Called pt states he was on the treadmill and decided to increase the speed higher than normal and become dizzy. Pt states after he sat down dizziness subsided after approx 5 mins. Pt denies any syncope, CP or SOB. OELECTRONICS ASSEMBLER * Telephone Encounter - Shelbi Bates - 06/01/2020 10:27 AM CST Patient left a message requesting Dr. Torre's RN to call him. He is now symptomatic and would liketo discuss a valve replacement. OELECTRONICS ASSEMBLER documented in this encounter Plan of Treatment Not on file documented as of this encounter Visit Diagnoses Not on filedocumented in this encounter Care Teams Card Setter Relationship Specialty Start Date End Date Martin López MD [address] [place] [address] PCP - General 06/27/12 Khalif Ca MD [address] [place] [address] Referring Physician Cardiology 04/08/19 documented as of this encounter
--- OUTSIDE RECORDS SUMMARY | 2024-04-20 00:17 | XMS_ITS | Encounter Summary ---
Author Organization [facility] Healthcare Address [address] [place] [address] Care Team Providers Care Dispatcher Street Department Name Role Phone Martin López MD Primary Care Provider Khalif Ca MD Unavailable [phone] Encounter Details Date Type Department Care Team (Late st Contact Info) Description 06/06/2020 11:40 AM ORAL SURGEON Lab [facility] ([facility] [address] [place] [address] Tera Torre MD [address] [facility] [address] [place] [address] Aortic valve stenosis, etiology of cardiac valve disease unspecified Discharge Disposition: Discharge to home or self care Social History Tobacco Use Types Packs/Day Years Used Date Smoking Tobacco: Never Smokeless Tobacco: Never Sex and Gender Information Value Date Recorded Sex Assigned at Not on file Legal Sex Male 9:13 PM ORAL SURGEON Gender Identity Male 07/25/2023 3:40 PM CDT Sexual Orientation Straight 10/28/2019 9: 50 AM CDT documented as of this encounter Discharge Disposition Disposition Code Departure Means Destination Discharge to home or self care documented in this encounter Plan of Treatment Not on file documented as of this encounter Procedures Procedure Name Priority Date/Time Associated Diagnosis Comments DIFFERENTIAL AUTO Routine 06/06/2020 11: 20 AM ORAL SURGEON Aortic valve stenosis, etiology of cardiac valve disease unspecified CBC WITH AUTO DIFFERENTIAL Routine 06/06/2020 11:20 AM ORAL SURGEON Aortic valve stenosis, etiology of cardiac valve disease unspecified BASIC METABOLIC PANEL Routine 06/06/2020 11:20 AM ORAL SURGEON Aortic valve stenosis, etiology of cardiac valve disease unspecified documented in this encounter Results * (ABNORMAL) Differential, auto (06/06/2020 11:20 AM ORAL SURGEON) Neutrophil abs 7.2(H) 1.7 - 6.5 K/cumm [facility] Imm gran abs 0.0 0.0 - 0.1 K/cumm [facility] Lymphocyte abs 0.8 0.8 - 3.3 K/cumm [facility] Monocyte abs 0.7 0.2 - 0.8 K/cumm [facility] Eosinophil abs 0.1 0.0 - 0.5 K/cumm [facility] Basophil abs 0.1 0.0 - 0.1 K/cumm [facility] Neutrophil pct 80.2 % [facility] Comment: Interpretive Data Percent cell count reference ranges are not reported, since discordance with absolute values may lead to misinterpretation of CBC data. Current Interpretive Data was last revised on 2017. Imm gran pct 0.3 % [facility] Comment: Interpretive Data Percent cell count reference ranges are not reported, since discordance with absolute values may lead to misinterpretation of CBC data. Current Interpretive Data was last revised on 2017. Lymphocyte pct 9.1 % [facility] Comment: Interpretive Data Percent cell count reference ranges are not reported, since discordance with absolute values may lead to misinterpretation of CBC data. Current Interpretive Data was last revised on 2017. Monocyte pct 8.2 % [facility] Comment: Interpretive Data Percent cell count reference ranges are not reported, since discordance with absolute values may lead to misinterpretation of CBC data. Current Interpretive Data was last revised on 2017. Eosinophil pct 1.6 % [facility] Comment: Interpretive Data Percent cell count reference ranges are not reported, since discordance with absolute values may lead to misinterpretation of CBC data. Current Interpretive Data was last revised on 2017. Basophil pct 0.6 % [facility] Comment: Interpretive Data Percent cell count reference ranges are not reported, since discordance with absolute values may lead to misinterpretation of CBC data. Current Interpretive Data was last revised on 2017. Blood specimen (specimen) 06/06/2020 11:20 AM ORAL SURGEON 06/06/2020 11:30 AM ORAL SURGEON Tera Torre MD LAB BLOOD ORDERABLES Final R esult Performing Organization Address City/[facility]/ZIP Co de Phone Number [facility] [place] [address] * CBC with auto differential (06/06/2020 11:20 AM ORAL SURGEON) WBC 9.0 3.8 - 9.9 K/cumm [facility] Hgb 14.5 13.0 - 17.5 g/dL [facility] Hct 43.2 38.9 - 50.3 % [facility] Plt 235 150 - 400 K/cumm [facility] MPV 11.6 9.1 - 12.3 fL [facility] RBC 4.98 4.30 - 5.80 M/cumm [facility] MCV 86.7 81.3 - 96.4 fL [facility] MCH 29.1 27.1 - 33.3 pg [facility] MCHC 33.6 32.3 - 35.7 g/dL [facility] RDW CV 13.7 11.1 - 14.9 % [facility] RDW SD 42.9 35.7 - 48.1 fL [facility] NRBC abs 0.00 0.00 - 0.01 K/cumm [facility] Blood specimen (specimen) 06/06/2020 11:20 AM ORAL SURGEON 06/06/2020 11:30 AM ORAL SURGEON us Tera Torre MD LAB BLOOD ORDERABLES Final R esult Performing Organization Address City/[facility]/ZIP Co de Phone Number [facility] Department [place] [address] * (ABNORMAL) Basic metabolic panel (06/06/2020 11:20 AM ORAL SURGEON) Sodium 143 135 - 145 mmol/L [facility] Potassium, pl 4.4 3.3 - 4.9 mmol/L [facility] Chloride 106 97 - 110 mmol/L [facility] CO2 30 22 - 32 mmol/L [facility] Anion gap 7 2 - 15 mmol/L [facility] BUN 22 8 - 25 mg/dL [facility] Creatinine 1.37(H) 0.80 - 1.30 mg/dL [facility] Glucose 104 70 - 199 mg/dL [facility] Comment: Interpretive Data Fasting glucose [...] 2017. Calcium 9.7 8.5 - 10.3 mg/dL [facility] Blood specimen (specimen) 06/06/2020 11:20 AM ORAL SURGEON 06/06/2020 11:30 AM ORAL SURGEON Tera Torre MD LAB BLOOD ORDERABLES Final R esult [facility] Department [place] [address] documented in this encounter Visit Diagnoses Diagnosis Aortic valve stenosis, etiology of cardiac valve disease unspecified documented in this encounter Care Teams Dispatcher Street Department Relationship Specialty Start Date End Date Martin López MD [address] [address] PCP - General 06/27/12 Khalif Ca MD [address] [facility] [address] [place] [address] Referring Physician Cardiology 04/08/19 documented as of this encounter
--- OUTSIDE RECORDS SUMMARY | 2024-04-20 00:17 | XMS_ITS | Encounter Summary ---
Author Organization [facility] Healthcare Address [address] [place] [address] Care Team Providers Care Head Of Global Strategic Partnerships Name Role Phone Martin López MD Primary Care Provider Khalif Ca MD Unavailable [phone] Encounter Details Date Type Department Care Team (Late st Contact Info) Description 06/23/2020 7:30 AM MARKET GARDEN WORKER - 06/23/2020 2:35 PM MARKET GARDEN WORKER Surgery [facility] Operating Room [address] [place] [address] Felton Chiu MD [id number] [place], [place] [id number] CORONARY ARTERY BYPASS GRAFT WITH PUMPx3 Surgery Details Date/Time Status Location OR Service Patient Class Case Class Case Type Trauma Case? 06/23/2020 7:30 AM Posted [facility] OR POD 3 310 Cardiothoracic Surgery Admit Time Sensitive - 3 Weeks Panel 1 Procedure LRB Anes Op Region Wound Class Comments CORONARY ARTERY BYPASS GRAFT WITH PUMPx3 N/A General Chest Class I - Clean HARVEST - RADIAL ARTERY Left General Arm Lower Class I - Clean ENDOSCOPIC VESSEL HARVEST N/A General Thigh Clas s I - Clean REPLACEMENT AORTIC VALVE N/A General Chest Class I - Clean Surgeon Surgeon Role Service Panel Felton Chiu MD Primary Cardiothoracic 1 Masha Hollingsworth MD Fellow General Surgery 1 Case Notes 06/20: case moved from 06/21 to 06/23 per [facility] via phone call. DRE06/14: [facility] HUNT documented in this encounter Social History Tobacco Use Types Packs/Day Years Used Date Smoking Tobacco: Never Smokeless Tobacco: Never Alcohol Use Standard Drinks/Week Comments Yes 0 (1 standard drink = 0.6 oz pur e alcohol) rare Sex and Gender Information Value Date Recorded Sex Assigned at Not on file Legal Sex Male 9:13 PM MARKET GARDEN WORKER Gender Identity Male 07/25/2023 3:40 PM CDT Sexual Orientation Straight 10/28/2019 9: 50 AM CDT documented as of this encounter Last Filed Vital Signs Vital Sign Reading Time Taken Comments Blood Pressure 140/68 06/23/2020 6:50 AM MARKET GARDEN WORKER Pulse 88 06/23/2020 6:50 AM MARKET GARDEN WORKER Temperature 37.3 ??C (99.1 ??F) 06/23/2020 6:08 AM CS T Respiratory Rate 19 06/23/2020 6:50 AM MARKET GARDEN WORKER Oxygen Saturation 98% 06/23/2020 6:50 AM MARKET GARDEN WORKER Inhaled Oxygen Concentration - - Weight - - Height - - Body Mass Index - - documented in this encounter Discharge Summaries * Shana Alvarado, HORTICULTURAL MANAGER - 06/28/2020 2:22 PM CST Inpatient Discharge Summary BRIEF OVERVIEW Admitting Provider: Felton Chiu MD Discharge Provider: Felton Chiu MD Primary Care Physician at Discharge: Martin López MD [phone] Admission Date: 06/23/2020 Discharge Date: 06/28/2020 Admission Location: [facility] Primary Discharge Diagnosis: 06/23/2020: Aortic valve replacement [...] Service Line: Home Health Primary disciplines requested: Nursing Home Home Health Services: Wound/ Ostomy Care Strengthening [...] added, or a medication dose has changed. [facility] [phone] Recent Lab Results: Recent Labs Lab Units [...] Discharge Medications: Nathan Wagner Home Medication Instructions TIERRA:[id number] Printed on:06/28/20 1424 Medication Information acetaminophen (TYLENOL) 325 mg tablet [...] Time Provider Department Center 06/28/2020 2:25 PM [facility] S PROCESSING RM BJS CardDiag [facility] Main 11/15/2020 1:00 PM Leslie Aparicio MD GI CAM 8C FOSTER GASTRO Contact Information for Follow-ups Martin López MD Specialty: Family Medicine Relationship: PCP - General [address] [place] [address] [address] [place] [address] Next Steps: Schedule an appointment as soon as possible for a visit in 1 week(s) Felton Chiu MD Specialty: Cardiothoracic Surgery, General Surgery Relationship: Surgeon [facility] [address] [place] [address] Next Steps: Follow up Comments: Dr. Felton Chiu will see you for follow up in 4 weeks in the [facility] in the [facility] ([facility]), [address] [place] [address]- 8th floor [address], [place] [id number]. Please call [phone] for questions or concerns or to change your appointment. Questions: To provider: FELTON CHIU Marc Alan, MD Specialty: Cardiology, Internal Medicine, Cardiovascular Disease, Interventional Cardiology Relationship: Consulting Physician [facility] [address] [facility] [address] Next Steps: Follow up Comments: Please follow up with your Vb Net Developer in 3-4 weeks. The office number is [phone] if you have questions or concerns. Questions: [...] Felton Chiu MD at 06/28/2020 3:14 PM MARKET GARDEN WORKER ET GARDEN WORKER ET GARDEN WORKER documented in this encounter Discharge Instructions * Discharge Instr - Other Orders* Shana Menezes RN - 06/27/2020 1:33 PM MARKET GARDEN WORKER [facility] [phone] ET GARDEN WORKER documented in this encounter Medications at Time [...] as needed for pain 30 tablet 06/28/2020 documented in this encounter Discharge Disposition Disposition [...] Care Agency Information Home Care Agency Name [facility] Home Care Agency Home Care Agency Contact Spoken to Maribel accepted for SOC 07/01 Home Care Agency Order Faxed to [phone] Discharge Additional Assistance Does the patient need discharge transport arranged? No ( to provide ride) Patient to d/c to home today. Notified Maribel at [facility]. Will fax DC Summary and order. Patient has spouse for home support and transportation. Nurse to instruct on d/c orders. ET GARDEN WORKER * Shana Alvarado NP - 06/28/2020 9:35 AM CST Cardiac Surgery Daily Progress 06/24 (06/23) AVR (25 mm Magna Ease), 3v CABG (left Busyra-UKO-BO, SVG-PDA) SUBJECTIVE Chief complaint: none, no BM Interval History: Brief AF with rate 120 otherwise asymptomatic. Avoiding coumadin due to recent diverticular bleed and hx of H Pylori with bleed. Will arrange 30 day event monitor. Central line out. Discharge later today OBJECTIVE Current Facility-Administered Medications: ??? acetaminophen (TYLENOL) tablet 650 mg, 650 mg, oral, Q4H PRN, Shana Alvarado NP, 650 mg at 06/27/202017 ??? amiodarone (PACERONE) tablet 400 mg, 400 mg, oral, Daily, Shana Alavrado, MARLENE, 400 mg at 06/28/20 06 ??? aspirin enteric coated tablet 81 mg, 81 mg, oral, Daily, Fabi Handy NP, 81 mg at 06/27/20 0815 ??? atorvastatin (LIPITOR) tablet 80 mg, 80 mg, oral, Daily, Fabi Handy HORTICULTURAL MANAGER, 80 mg at 06/27/202016 ??? bisacodyL (DULCOLAX) suppository 10 mg, 10 mg, rectal, Daily PRN, Shana Alvarado, HORTICULTURAL MANAGER, 10 mg at 06/27/201823 ??? docusate sodium (COLACE) capsule 100 mg, 100 mg, oral, BID, 100 mg at 06/27/201928 OR [DISCONTINUED] docusate (COLACE) 10 mg/mL oral liquid 100 mg, 100 mg, feeding tube, BID, Fabi Handy NP ??? ferrous sulfate tablet 325 mg, 65 mg of elemental iron, oral, BID with meals (bkfst, dinner), Daniele Madrigal NP, 325 mg at 06/27/201709 ??? furosemide (LASIX) tablet 40 mg, 40 mg, oral, Daily, Shana Alvarado HORTICULTURAL MANAGER ??? latanoprost (XALATAN) 0.005 % ophthalmic solution 1 drop, 1 drop, each eye, Nightly, aFbi Handy NP, 1 drop at 06/27/202006 ??? metoprolol tartrate (LOPRESSOR) immediate release tablet 12.5 mg, 12.5 mg, oral, BID, AmyH. Alvarado NP, Stopped at 06/28/20 0900 ??? mineral oil (FLEET MINERAL OIL) enema 1 enema, 1 enema, rectal, Once, Shana Alvarado HORTICULTURAL MANAGER ??? montelukast (SINGULAIR) tablet 10 mg, 10 [...] BID, Emmie Daniels NP, 40 mg at 06/27/20 2017 ??? polyethylene glycol (MIRALAX) packet 17 g, 17 g, oral, Daily, Octavia Heath NP, 17 g at 06/27/201928 ??? potassium chloride ER (KLOR-CON) extended release tablet 20 mEq, 20 mEq, oral, Daily, AmyH. Alvarado NP ??? ramelteon (ROZEREM) tablet 8 mg, 8 mg, oral, Nightly PRN, Emmie Daniels NP, 8 mg at 06/27/20 2018 ??? senna (SENOKOT) tablet 2 tablet, 2 [...] PRBCs on 06/25 for H&H 6.5/ Today 7.6, will follow with daily CBCs [...] Felton Chiu MD at 06/28/2020 11:09 AM MARKET GARDEN WORKER ET GARDEN WORKER ET GARDEN WORKER * Lisa Lynn PTA - 06/28/2020 8:04 [...] treatment team and contact the PT or WOODWORKING BELT SANDER currently assigned to this patient. If a physical therapy clinician is not assigned to this patient, please call [phone]. 06/28/20 0804 PT Last Visit Session Type [...] of sternal precautions with all functional mobility. ET GARDEN WORKER * Lisa Lynn PTA - 06/27/2020 4:02 [...] treatment team and contact the PT or WOODWORKING BELT SANDER currently assigned to this patient. If a physical therapy clinician is not assigned to this patient, please call [phone]. 06/27/20 1602 PT Last Visit Session Type [...] of sternal precautions with all functional mobility. ET GARDEN WORKER * Shana Alvarado NP - 06/27/2020 9:15 AM CST Cardiac Surgery Daily Progress (06/23) AVR (25 mm Magna Ease), 3v CABG (left Awxouh-FLL-VY, SVG-PDA) SUBJECTIVE Chief complaint: none Interval History: MCTs removed, in and out of AF - on amiod day #3 today. Added Hep gtt. OBJECTIVE Current Facility-Administered Medications: ??? acetaminophen (TYLENOL) tablet 650 mg, 650 mg, oral, Q4H PRN, Shana Alvarado HORTICULTURAL MANAGER, 650 mg at 06/27/20818 ??? amiodarone (PACERONE) tablet 400 mg, 400 mg, oral, TID, Emmie Daniels HORTICULTURAL MANAGER, 400 mg at 06/27/20815 ??? aspirin enteric coated tablet 81 mg, 81 mg, oral, Daily, Fabi Handy NP, 81 mg at 06/27/20814 ??? atorvastatin (LIPITOR) tablet 80 mg, 80 mg, oral, Daily, Fabi Handy NP, 80 mg at 06/26/202050 ??? docusate sodium (COLACE) capsule 100 mg, 100 mg, oral, BID, 100 mg at 06/27/20815 OR [DISCONTINUED] docusate (COLACE) 10 mg/mL oral liquid 100 mg, 100 mg, feeding tube, BID, Fabi Handy NP ??? ferrous sulfate tablet 325 mg, 65 mg of elemental iron, oral, BID with meals (bkfst, dinner), Daniele Madrigal NP, 325 mg at 06/27/20816 ??? furosemide (LASIX) tablet 40 mg, 40 mg, oral, BID DIURETIC, hSana Alvarado NP, 40 mg at ??? heparin in 0.45% sodium chloride 25,000 units/250 mL (100 units/mL) infusion (premix), 1-33 Units/kg/hr, intravenous, Titrated, Octavia Heath, MARLENE, Last Rate: 11.85 mL/hr at 06/27/20 0900, 12.2 Units/kg/hr at 06/27/20 0900 ??? latanoprost (XALATAN) 0.005 % ophthalmic solution 1 drop, 1 drop, each eye, Nightly, Fabi Handy HORTICULTURAL MANAGER, 1 drop at 06/26/202052 ??? METOPROLOL TARTRATE CAPSULE 6.25 MG capsule 6.25 mg, 6.25 mg, oral, BID, Emmie Daniels NP, 6.25 mg at 06/27/20814 ??? montelukast (SINGULAIR) tablet 10 mg, 10 mg, oral, Nightly, Shana Alvarado NP, 10 mg at ??? ondansetron (ZOFRAN) injection 4 mg, 4 mg, intravenous, Q6H PRN, Fabi Handy NP, 4 mg at 06/25/20 07 ??? oxyCODONE (ROXICODONE) tablet 5 mg, 5 mg, oral, Q4H PRN, Medina Cavazos MD, 5 mg at 06/27/20827 ??? pantoprazole DR (PROTONIX) extended release tablet 40 mg, 40 mg, oral, BID, Emmie Daniels NP, 40 mg at 06/27/20815 ??? potassium chloride ER (KLOR-CON) extended release tablet 20 mEq, 20 mEq, oral, BID, Shana lAvarado NP, 20 mEq at 06/27/20816 ??? ramelteon (ROZEREM) tablet 8 mg, 8 mg, oral, Nightly PRN, Emmie Daniels NP, 8 mg at 06/26/202050 ??? senna (SENOKOT) tablet 1 tablet, 1 tablet, oral, BID, 1 tablet at 06/27/20815 OR [DISCONTINUED] senna 1.76 mg/mL syrup 8.8 mg, 8.8 mg, feeding tube, BID, Fabi Handy NP Vitals: 24hr Min/Max: Temp Min: 36.4 ??C (97.5 ??F) Max: 37 ??C (98.6 ??F) Pulse Min: 72 Max: 135 BP Min: 95/60 Max: 123/77 Resp Min: 18 Max: 20 SpO2 Min: 93 % Max: 99 % Most Recent : Vitals: 06/27/20912 BP: Pulse: 74 Resp: Temp: SpO2: I/O [...] 1 unit PRBCs on 06/25 for H&H 6.5 Today 7.5, will follow with daily CBCs [...] Felton Chiu MD at 06/27/2020 11:17 AM MARKET GARDEN WORKER ET GARDEN WORKER ET GARDEN WORKER * Gris Alonzo - 06/27/2020 8:33 AM [...] not assigned to this patient, please call [phone]. 06/27/20 0833 General Session Type Treatment OT Received On [...] ADLs with modified independence/independence Cosigned by Troy Holley, OT at 06/27/2020 4:59 PM MARKET GARDEN WORKER ET GARDEN WORKER ET GARDEN WORKER * Yun Man, WOODWORKING BELT SANDER - 06/26/2020 12:14 PM CST Physical Therapy [...] treatment team and contact the PT or WOODWORKING BELT SANDER currently assigned to this patient. If a physical therapy clinician is not assigned to this patient, please call [phone]. Multi-Disciplinary Problems (from Physical Therapy) Active Problems [...] Details: I from all surfaces Problem: PT [facility] Start Date: 06/24/20 Goal Start Date End Date PT LTG - [facility] 1 06/24/20 -- Goal Details: Pt will perform all functional mobility I. Goal Start Date End Date PT STG - [facility] 1 06/24/20 -- Goal Details: Pt will [...] Continue with current plan Recommendation/Plan PT Recommendation/Plan Nursing Home Facility (per PT) PT Frequency Daily (per PT) Treatment/Interventions Balance Training;Endurance training;Gait training;Stair training Progress Progressing toward goals PT - Next Appointment 06/27/20 PT Evaluation Complete Yes ET GARDEN WORKER * Shana Alvarado NP - 06/26/2020 10:10 AM CST Cardiac Surgery Daily Progress (06/23) AVR (25 mm Magna Ease), 3v CABG (left Nzlzzp-TKW-RL, SVG-PDA) SUBJECTIVE Chief complaint : none Interval History: AF to NSR, on oral amiodarone day #2 now. MCTs out today, will increase lasix OBJECTIVE Current Facility-Administered Medications: ??? acetaminophen (TYLENOL) tablet 1,000 mg, 1,000 mg, oral, Q6H LYRIC, Emmie Daniels, HORTICULTURAL MANAGER, 1,000 mg at 06/26/20 0407 ??? amiodarone (PACERONE) tablet 400 mg, 400 mg, oral, TID, Emmie Daniels NP, 400 mg at 06/26/20 0707 ??? aspirin enteric coated tablet 81 mg, 81 mg, oral, Daily, Fabi Handy NP, 81 mg at 06/26/20 0824 ??? atorvastatin (LIPITOR) tablet 80 mg, 80 mg, oral, Daily, Fabi Handy NP, 80 mg at 06/24/20 0843 ??? docusate sodium (COLACE) capsule 100 mg, 100 mg, oral, BID, 100 mg at 06/26/20824 OR [DISCONTINUED] docusate (COLACE) 10 mg/mL oral liquid 100 mg, 100 mg, feeding tube, BID, Fabi Handy, HORTICULTURAL MANAGER ??? ferrous sulfate tablet 325 mg, 65 mg of elemental iron, oral, BID with meals (bkfst, dinner), Daniele Madrigal HORTICULTURAL MANAGER, 325 mg at 06/26/20 0826 ??? furosemide (LASIX) tablet 40 mg, 40 mg, oral, BID DIURETIC, Shana Alvarado, HORTICULTURAL MANAGER ??? heparin 5,000 unit/mL injection 5,000 Units, 5,000 Units, subcutaneous, Q8H LYRIC, Fabi Handy, HORTICULTURAL MANAGER, 5,000 Units at 06/26/20 0406 ??? latanoprost (XALATAN) 0.005 % ophthalmic solution 1 drop, 1 drop, each eye, Nightly, Fabi Handy, HORTICULTURAL MANAGER, 1 drop at 06/25/202111 ??? METOPROLOL TARTRATE CAPSULE 6.25 MG capsule 6.25 mg, 6.25 mg, oral, BID, Emmie Daniels, HORTICULTURAL MANAGER, 6.25 mg at 06/26/20 07 ??? montelukast (SINGULAIR) tablet 10 mg, 10 mg, oral, Nightly, Shana Alvarado, HORTICULTURAL MANAGER ??? ondansetron (ZOFRAN) injection 4 mg, 4 mg, intravenous, Q6H PRN, Fabi Handy, HORTICULTURAL MANAGER, 4 mg at 06/25/20 07 ??? oxyCODONE (ROXICODONE) tablet 5 mg, 5 mg, oral, Q4H PRN, Fabi Handy, HORTICULTURAL MANAGER, 5 mg at 06/26/20824 ??? pantoprazole DR (PROTONIX) extended release tablet 40 mg, 40 mg, oral, BID, Emmie Daniels HORTICULTURAL MANAGER, 40 mg at 06/26/20824 ??? potassium chloride ER (KLOR-CON) extended release tablet 20 mEq, 20 mEq, oral, BID, Shana Alvarado, HORTICULTURAL MANAGER ??? ramelteon (ROZEREM) tablet 8 mg, 8 mg, oral, Nightly PRN, Emmie Daniels NP, 8 mg at 06/25/202119 ??? senna (SENOKOT) tablet 1 tablet, 1 tablet, oral, BID, 1 tablet at 06/26/20 0825 OR [DISCONTINUED] senna 1.76 mg/mL syrup 8.8 mg, 8.8 mg, feeding tube, BID, Fabi Handy NP Vitals: 24hr Min/Max: Temp Min: 36.4 ??C (97.5 ??F) Max: 37.1 ??C (98.8 ??F) Pulse Min: 71 Max: 131 BP Min: 105/59 Max: 126/73 Resp Min: 18 Max: 20 SpO2 Min: 90 % Max: 97 % Most Recent : Vitals: 06/26/20 0926 BP: Pulse: 72 Resp: Temp: SpO2: I/O [...] Felton Chiu MD at 06/27/2020 8:24 AM MARKET GARDEN WORKER ET GARDEN WORKER ET GARDEN WORKER * Daniele Madrigal NP - 06/25/2020 9:20 AM CST Cardiac Surgery Daily Progress 2 Days Post-Op CABG, AVR SUBJECTIVE Chief complaint of I'm so weak Interval History: transfer from ICU, A fib, ABLA OBJECTIVE Current Facility-Administered Medications: ??? acetaminophen (TYLENOL) tablet 1,000 mg, 1,000 mg, oral, Q6H Jeremiah GUNTER Shelly A., HORTICULTURAL MANAGER, 1,000 mg at 06/25/20 0105 ??? amiodarone (PACERONE) tablet 400 mg, 400 mg, oral, TID, Emmie Daniels, HORTICULTURAL MANAGER, 400 mg at 06/25/20 09 ??? aspirin enteric coated tablet 81 mg, 81 mg, oral, Daily, Fabi Handy, HORTICULTURAL MANAGER, 81 mg at 06/25/20 09 ??? atorvastatin (LIPITOR) tablet 80 mg, 80 mg, oral, Daily, Fabi Handy, HORTICULTURAL MANAGER, 80 mg at 06/24/20 0843 ??? docusate sodium (COLACE) capsule 100 mg, 100 mg, oral, BID, 100 mg at 06/25/20905 OR [DISCONTINUED] docusate (COLACE) 10 mg/mL oral liquid 100 mg, 100 mg, feeding tube, BID, Fabi Handy, HORTICULTURAL MANAGER ??? heparin 5,000 unit/mL injection 5,000 Units, 5,000 Units, subcutaneous, Q8H [facility], Fabi Handy, HORTICULTURAL MANAGER, 5,000 Units at 06/24/202101 ??? latanoprost (XALATAN) 0.005 % ophthalmic solution 1 drop, 1 drop, each eye, Nightly, Fabi Handy, HORTICULTURAL MANAGER, 1 drop at 06/24/202038 ??? METOPROLOL TARTRATE CAPSULE 6.25 MG capsule 6.25 mg, 6.25 mg, oral, BID, Emmie Daniels, HORTICULTURAL MANAGER, 6.25 mg at 06/25/20 0511 ??? ondansetron (ZOFRAN) injection 4 mg, 4 mg, intravenous, Q6H PRN, Fabi Handy, HORTICULTURAL MANAGER, 4 mg at 06/25/20 0720 ??? oxyCODONE (ROXICODONE) tablet 5 mg, 5 mg, oral, Q4H PRN, Fabi Handy, HORTICULTURAL MANAGER, 5 mg at 06/25/20 0125 ??? pantoprazole DR (PROTONIX) extended release tablet 40 mg, 40 mg, oral, BID, Emmie Daniels, HORTICULTURAL MANAGER, 40 mg at 06/25/20905 ??? ramelteon (ROZEREM) tablet 8 mg, 8 mg, oral, Nightly PRN, Emmie Daniels NP, 8 mg at 06/25/20 0116 ??? senna (SENOKOT) tablet 1 tablet, 1 tablet, oral, BID, 1 tablet at 06/25/20905 OR [DISCONTINUED] senna 1.76 mg/mL syrup 8.8 mg, 8.8 mg, feeding tube, BID, Fabi Handy NP Vitals: 24hr Min/Max: Temp Min: 36.6 ??C (97.9 ??F) Max: 36.9 ??C (98.4 ??F) Pulse Min: 82 Max: 150 BP Min: 86/55 Max: 124/63 Resp Min: 16 Max: 23 SpO2 Min: 90 % Max: 100 % Most Recent : Vitals: 06/25/20 0738 BP: 112/62 Pulse: 82 Resp: 20 Temp: [...] AM Result Value Ref Range Product code U4723O85 Unit Number [id number] Product Blood Type ANEG Dispense Status ISSUED ASSESSMENT/PLAN Atrial fibrillation (CMS/HCC) Assessment & Plan Developed A fib with RVR overnight Rx: Amiodarone IV bolus and po load initiated Metoprolol added-converted to NSR Monitor on telemetry Acute postoperative anemia due to expected blood loss Assessment & Plan Expected finding s/p CABG, AVR Monitor CBC daily Transfused 1 unit PRBCs overnight for H&H .09/15 Add FeSo4 Guaiac all specimens-continue bid PPI [...] and lennon today Daniele Madrigal NP 06/25/2020 ET GARDEN WORKER * Sumeet Renteria, PT - 06/24/2020 1:59 [...] PT Recommendation and Plan Recommendation/Plan PT Recommendation/Plan: Nursing Home Facility PT Recommendation/Plan Comments: pending stairs PT [...] home Prior Function Prior Function Level of [place]: Independent with ADLs, Independent functional transfers, Independent [...] of sternal precautions with all functional mobility. ET GARDEN WORKER * Gila Cheng RN - 06/24/2020 1:45 [...] (06/24/20 1344) Health Insurance Coverage: Medicare and [employer] Prescription Coverage: yes Pharmacy: [facility] in [facility] Primary Care Provider: Martin López MD Prior [...] steps (06/24/20 1340) Potential discharge needs include: jail, (06/24/20 134) Dialysis: Dialysis: No (06/24/20 134) Behavioral Health Services: Patient expects to be Discharged to: Private residence, (06/24/20 0500) Additional Information: would agree to . Not had in past but has. She [...] Collaboration with patient, MD, direct care nurse, Insolvency Consultant, Nurse Coordinator and other members of the health care team to assure needed interventions completed. 2. Return patient to optimal level of self-care post discharge. 3. Pharmacogeneticist will follow for Discharge Planning - interventions [...] with the aftercare plan. Gila Cheng RN ET GARDEN WORKER * Celine Long, OT - 06/24/2020 9:05 [...] Health OT OT Frequency: 3-5x/wk Comments: Pt angélica and motivated, slightly anxious, requires min vc's [...] cane Prior Function Prior Function Level of [place]: Independent with ADLs, Independent with homemaking with ambulation Lives With: Spouse Receives Help From: Spouse/Significant other(horse race timer assist available) Driving: Yes ADL Assistance: Independent [...] Compliance/Behavior: Easy to engage Perseveration: Not present Guillermo Cognitive Assessment-Blind (MOCA-Blind) MOCA-Blind Version: Version 3 [...] not assigned to this patient, please call [phone]. ET GARDEN WORKER * Chino Sanders MD - 06/24/2020 12:14 AM CST CTICU Daily Progress Note Shifts: Shift Options: CTI PM 1 Subjective Patient [...] mL, Last Rate: 9 mL/hr at 06/23/202199 Pulmonary Support: O2 Therapy: Supplemental oxygen O2 [...] at 06/24/2020 0014 Last data filed at 06/23/20202199 Gross per 24 hour Intake 2420.83 ml [...] AM Result Value Ref Range Product code Q5912Q44 Unit Number [id number] Product Blood Type ANEG Dispense Status CROSSMATCHED Product code V3832M35 Unit Number [id number] Product Blood Type ANEG Dispense Status CROSSMATCHED Product code J7965K21 Unit Number [id number] Product Blood Type ANEG Dispense Status ISSUED Product code T5662A61 Unit Number [id number] Product Blood Type ANEG Dispense Status RETURNED Product code R6912T05 Unit Number [id number] Product Blood Type ANEG Dispense Status ISSUED Product code R1393M44 Unit Number [id number] Product Blood Type ANEG Dispense Status RETURNED [...] AM Result Value Ref Range Product code C2979L66 Unit Number [id number] Product Blood Type APOS Dispense Status ISSUED Product code T1569O45 Unit Number [id number] Product Blood Type APOS Dispense Status RETURNED [...] (L) 40.7 - 50.3 % Platelet POC Mehdi 144 140 - 440 K/cumm POCT Partial thromboplastin time (PTT) Collection Time: 06/23/20 1:48 PM Result Value Ref Range APTT, POC 32.1 29.3 - 45.4 sec Prepare plasma: 2 Units Collection Time: 06/23/20 2:26 PM Result Value Ref Range Product code M4556D51 Unit Number [id number] Product Blood Type APOS Dispense Status ISSUED Product code S7114A10 Unit Number [id number] Product Blood Type APOS Dispense Status ISSUED [...] (L) 40.7 - 50.3 % Platelet POC [place] 171 140 - 440 K/cumm aPTT Collection [...] TestName Lactate Whole Blood Called/Read Back [facility]a [facility] RN Called By ajay POCT glucose Collection [...] the cavoatrial junction. A right internal jugular [place]-Preet catheter is in place, with tip in [...] Kenny Lewis MD at 06/24/2020 7:03 PM MARKET GARDEN WORKER ET GARDEN WORKER ET GARDEN WORKER ET GARDEN WORKER documented in this encounter H&P Notes * Manuel Colorado NP - 06/23/2020 4:[address] ICU History and Physical Shifts: NPP Shift Options: CCA Chief Complaint: Day of Surgery status post (06/23/20) AVR (25 mm Magna Ease) CABGx3 (Uhchkt-SES-YF, SVG-PDA) HPI: Patient is a 74 YOM [...] an AVR (25 mm Magna Ease) CABGx3 (Mwhrxk-QEQ-FG, SVG-PDA) by Dr Chiu. He was reported [...] Infusions:EPINEPHrine, 0.02 mcg/kg/min, Last Rate: 0.02 mcg/kg/min (06/23/20 1600) insulin regular, 0-30 Units/hr, Last Rate: 2 [...] procedure: AVR (25 mm Magna Ease) CABGx3 (Aeisip-HUI-BK, SVG-PDA) Acute Postoperative Pain Myocardial Stunning CAD Hypertension Acute Respiratory Insufficiency Hx of GIB Diverticulosis Acute Blood Loss Anemia Leukocytosis S/p AVR Plans: Acute Postoperative Pain Expected postop pain following cardiac surgery. Currently sedated on propofol - PRN Fentanyl until extubated. - Scheduled Tylenol and PRN Oxycodone once able to take PO. 174: Extubated, transitioned to sched APAP, prn oxy [...] Kenny Lewis MD at 06/23/2020 9:59 PM MARKET GARDEN WORKER ET GARDEN WORKER ET GARDEN WORKER * Felton Chiu MD - 06/23/2020 6:16 AM CST I have seen and examined Mr. Wagner and deem him acceptable risk for coronary artery bypass grafting and aortic valve replacement. Felton Chiu MD ET GARDEN WORKER Source Note - Jodi Cantu NP - 06/17/2020 4:28 PM MARKET GARDEN WORKER Images from the original note were not included. [facility] for Preoperative Assessment and Planning Preoperative Evaluation Record Evaluation type/location: [facility] Planned procedure site: [facility] (Pods 2/3/5/[facility]) Date: 06/17/20 Anesthesia Evaluation Nathan Wagner is a 74 y.o. male Procedure(s): CORONARY ARTERY BYPASS GRAFT WITH PUMP HARVEST - RADIAL ARTERY ENDOSCOPIC VESSEL HARVEST REPLACEMENT AORTIC VALVE Pre-Op Diagnosis Codes: * Coronary artery disease without angina pectoris, unspecified vessel or lesion type, unspecified whether samish or transplanted heart [I25.10] * Aortic valve [...] iliac and femoral arteries) - Pertinent negatives: IN ; CABG ; valve replacement; atrial fibrillation; arrhythmia; pacemaker/ICD;DVT/PE; negative for CHF; drug-eluting stent(s); bare metal stent(s) and coronary angioplasty Comments: Followed by Tera Torre, ANDRE/CRISTIAN Cards: Last OVN 04/27/2020 Per TTE 03/2020: [...] only. Symptoms < 1x/week. Comments: GI bleed 05/31 H. Pylori ulcer (2014) and diverticulosis (04/2020) [...] + previous transfusion (2014 following GI bleed /2 ulcer. Denies negative transfusion reaction hx.) + [...] 4 days. Pre-procedure COVID19 testing performed at [facility]. Result pending- to be reviewed by [...] ??? H pylori ulcer with bleeding in 2015 ??? Heart murmur ??? Hemorrhoid ??? History [...] Score: 0 Short Blessed Total Score: 0 ET GARDEN WORKER ET GARDEN WORKER ET GARDEN WORKER documented in this encounter Procedure Notes * Shana Alvarado NP - 06/27/2020 2:16 PM CST Procedures EPICARDIAL WIRE REMOVAL 06/27/2020 2:16 PM Performed by: Shana Alvarado NP Nathan Wagner identified by checking arm-band and verifying birthdate. [...] to respond Nathan Wagner tolerated procedure well. ET GARDEN WORKER * Shana Alvarado NP - 06/26/2020 1:08 PM CST Procedures CHEST TUBE REMOVAL 06/26/2020 1:08 PM Performed by: Shana Alvarado NP Dicussed with: [x] Collaborating MD/Designee [] Attending MD [] Supervising Physician [] Emergent [] Non-Applicable Informed consent: Risks, benefits, alternatives discussed and patient/solar sales representative/guardian agrees and accepts. Patient's stated name/ matches [...] Maneuver [x] Sutures secured immediately after removal []Amana sutures removed [] No sutures present Instruction [...] ordered Nathan Wagner tolerated this procedure well. ET GARDEN WORKER * Daniele Madrigal NP - 06/25/2020 1:20 PM CST Procedures CHEST TUBE REMOVAL 06/25/2020 1:20 PM Performed by: Daniele Madrigal NP Dicussed with: [] Collaborating MD/Cliff [] Attending MD [x] Supervising Physician [] Emergent [] Non-Applicable Informed consent: Risks, benefits, alternatives discussed and patient/solar sales representative/guardian agrees and accepts. Patient's stated name/ matches [...] [x] Sutures secured immediately after removal [x] Amana sutures removed [] No sutures present Instruction [...] ordered Nathan Wagner tolerated this procedure well. ET GARDEN WORKER * Manuel Colorado NP - 06/23/2020 4:59 PM CSTAssociated Order(s): Critical Care Post-Procedure Diagnose(s): Severe aortic stenosis Critical Care Performed by: Manuel Colorado NP Authorized by: Manuel Colorado NP CRITICAL CARE: Team: [facility] Shift: AM Level of Billing: Critical Care [...] plan with the ICU team and other medical/pricing consultant staff, making frequent assessments and decisions [...] Kenny Lewis MD at 06/23/2020 10:01 PM MARKET GARDEN WORKER ET GARDEN WORKER ET GARDEN WORKER documented in this encounter Nursing Notes * Ruiz Holder - 06/28/2020 5:19 PM CST IJ removed, IV removed, dressing changed on left arm, awaiting mobile pharmacy, discharge ET GARDEN WORKER * Felicia Castillo RN - 06/23/2020 3:45 PM CST Pt arrives to 5613 s/p MVR + CABGx2 via bed accompanied by anesthesia and CT surgery. Pt connected to ventilator by Respiratory Therapy. Critical hookups complete. See VS flowsheet and I/O flowsheet for drips infusing. Report given to bedside TREV Lewis and MARLENE Zuniga. EICU aware. No further orders at this time. Pt arrives to 5613 s/p MVR + CABGx2. Heels floated, skin prep and allevyn to all bony prominences including coccyx. EPC to coccyx. All skin assessments including surgical sites noted in the Complex Assessment flowsheet. ET GARDEN WORKER documented in this encounter Miscellaneous Notes * Plan of Care - Ruiz Holder - 06/28/2020 2:59 PM CST Problem: Health Behavior: Goal: Understanding of discharge needs will improve Outcome: Progressing Goals: Clinical Goals for the Shift: VSS, bowel movement, discharge Summary: Clinical Goals for the Shift: VSS, bowel movement, discharge ET GARDEN WORKER * Plan of Care - Hair Wallace RN - 06/27/2020 10:58 PM CST Goals: Clinical Goals for the Shift: vss, heparin gtt therapeutic, monitor for bleeding, free from falls and injuries, BM today? Summary: patient is increasing in activity tolerance. Labs monitored. ET GARDEN WORKER * Plan of Care - Brisa Bahena RN - 06/27/2020 2:44 PM CST Goals: Clinical Goals for the Shift: vss, heparin gtt therapeutic, monitor for bleeding, free from falls and injuries, BM today? Summary: VSS, afebrile. Incisions clean and dry. Medicated for pain with relief obtained. I&O documented. No problems noted at present. ET GARDEN WORKER * Hospital Course - Shana Alvarado NP [...] monitoring his progress after he returns home. ET GARDEN WORKER ET GARDEN WORKER ET GARDEN WORKER ET GARDEN WORKER * Plan of Care - Hair Wallace [...] is increasing in activity tolerance. Labs monitored. ET GARDEN WORKER * Plan of Care - Brisa Bahena RN - 06/26/2020 5:04 PM CST Goals: Clinical Goals for the Shift: VSS, afebrile. Incisions clean and dry. Monitor I&O. Pain control. Summary: VSS, afebrile. Incisions clean and dry. Medicated for pain with relief obtained. I&O documented. No problems noted at present. ET GARDEN WORKER * Plan of Care - Evelina Rodriguez [...] tube pulled, pain was controlled (see MAR). ET GARDEN WORKER * Plan of Care - Hair Wallace RN - 06/25/2020 10:11 [...] is increasing in activity tolerance. Labs monitored. ET GARDEN WORKER * Plan of Care - Brisa Bahena RN - 06/25/2020 5:56 PM CST Goals: Clinical Goals for the Shift: VSS, afebrile. Incisions clean and dry. Pain control. Monitor I&O. Labs as ordered. Summary: VSS, afebrile. Incisions clean and dry. Medicated for pain with relief obtained. I&O documented. Labs and CXR completed. ET GARDEN WORKER * Assessment & Plan Note - Daniele Madrigal NP - 06/25/2020 9:18 AM MARKET GARDEN WORKER Associated Problem(s): Atrial fibrillation (CMS/HCC) (HCC) Developed [...] stable Monitor on telemetry until monitor placed ET GARDEN WORKER ET GARDEN WORKER ET GARDEN WORKER ET GARDEN WORKER * Assessment & Plan Note - Daniele Madrigal NP - 06/25/2020 9:15 AM MARKET GARDEN WORKER Associated Problem(s): Acute postoperative anemia due to expected blood loss Expected finding s/p CABG, AVR Monitor CBC daily Transfused 1 unit PRBCs on 06/25 for H&H 6.5/20 Today 7.6, will follow with daily CBCs Hx of colonic and GI bleeds (H Pylori) Added FeSo4 Guaiac all specimens-continue bid PPI ET GARDEN WORKER ET GARDEN WORKER ET GARDEN WORKER ET GARDEN WORKER * Assessment & Plan Note - Daniele Madrigal NP - 06/25/2020 9:13 AM MARKET GARDEN WORKER Associated Problem(s): Coronary artery disease without angina pectoris S/p CABG x 3 as L radial-OM, SVG-PDA also 06/23 Continue ASA, Statin, beta doni. Increase BB as tolerated Left RA hand with improved Mobility today, incision OK. Using ball and ROM exercises ET GARDEN WORKER ET GARDEN WORKER ET GARDEN WORKER * Assessment & Plan Note - Daniele Madrigal NP - 06/25/2020 9:13 AM MARKET GARDEN WORKER Associated Problem(s): Hypertension, essential VS q 4 hrs Continue Metoprolol Increased dose to 12.5 BID yesterday ET GARDEN WORKER ET GARDEN WORKER ET GARDEN WORKER * Assessment & Plan Note - Daniele Madrigal NP - 06/25/2020 9:12 AM MARKET GARDEN WORKER Associated Problem(s): HLD (hyperlipidemia) Continue Atorvastatin Low fat diet ET GARDEN WORKER * Assessment & Plan Note - Daniele Madrigal NP - 06/25/2020 9:10 AM MARKET GARDEN WORKER Associated Problem(s): Aortic valve stenosis S/p AVR (25 mm Magna ease) 06/23 Rout[address] op care Ct and lennon out Hep gtt off, holding coumadin due to high risk GI bleed and recent diverticular bleed Wires out ET GARDEN WORKER ET GARDEN WORKER ET GARDEN WORKER ET GARDEN WORKER * Plan of Care - Hair Wallace [...] is increasing tin activity tolerance. Labs monitored. ET GARDEN WORKER * Provider Query - Felton Chiu MD [...] of the patient???s medical record. Sincerely, Judith Koth[facility] Health Information Management ET GARDEN WORKER * Provider Query - Felton Chiu MD - 06/24/2020 10:17 AM CST Clinical Indicators/Treatments: 06/24 CT ICU : Myocardial stunning : Post bypass SANDY w/ Normal biventricular function, aortic valve mean gradient 10 mmHg, mild MR, mild TR on Epi 0.03 mcg/kg/min Hemodynamics CI 3.33, MPAP ~1/3 systemic, SBP 150s. Lactate 4.9 Lactate 5.2 @ 1999, received 500 mL LR bolus Wean epi [...] record. Sincerely, Judith José Health Information Management ET GARDEN WORKER * Plan of Care - Freddy Haynes RN - 06/24/2020 9:22 AM CST [...] Shift: VSS, control pain, sleep hygeine Summary: ET GARDEN WORKER * Plan of Care - Manuela Dupont [...] improve to fullest extent possible Outcome: Progressing ET GARDEN WORKER * Plan of [place] - Debbie Guadalupe [...] controlled with PRN fentanyl,family remains at bedside ET GARDEN WORKER * Op Note - Felton Chiu MD - 06/23/2020 8:28 AM CST DATE OF SURGERY: 06/24/2020 SURGEON Felton Chiu MD FIRST FLUORESCENT LIGHTING MODEL MAKER Masha Hollingsworth MD PREOPERATIVE DIAGNOSIS Significant multivessel [...] was administered. Invasive monitoring lines, including a [place] Preet catheter and a transesophageal echo probe [...] was immediately available at all other times. ET GARDEN WORKER * Brief Op Note - Masha Hollingsworth MD - 06/23/2020 8:28 AM CST kacOperative Progress Note Surgical Team: Surgeon(s) and Role: * Felton Chiu MD - Primary * Masha Hollingsworth MD - Fellow Anesthesiologist: Bashir Meadows MD; Barb Washington MD EARRINGS FABRICATOR: Shelbi Waldrop CRNA Commanding Officer Garage: Jacobo Ruff MD Student Nurse Stock Handler: Leyda Saeed RN Piping Designer: Alin Dolan CCP; Gris Melo CCP; Donald Miller CCP Casting Machine Operator: Mercedes Dunham RN; Sherri Infante RN; Tamara Hussein RN Scrub: Batool Mcdowell RN; Warren Palumbo RN Gyn: Shaina Linares ST Wire Frame Maker: Polly Heredia [employer]ICE: Jen Barfield, TREV; Le Daniel, TREV; Hien Dick CRNFA Casting Machine Operator Second: Lori Wiley RN DATE OF SURGERY : 06/23/2020 Preoperative Diagnosis: Pre-op Diagnosis * Coronary artery disease without angina pectoris, unspecified vessel or lesion type, unspecified whether samish or transplanted heart [I25.10] * Aortic valve stenosis, etiology of cardiac valve disease unspecified [I35.0] Postoperative Diagnosis: Post-op Diagnosis * Coronary artery disease without angina pectoris, unspecified vessel or lesion type, unspecified whether samish or transplanted heart [I25.10] * Aortic valve [...] Implant Name Type Inv. Item Serial No. Consultant In Ergonomics And Safety Lot No. LRB No. Used Action [employer] [id number] DANIE-MUHAMMAD PERIMOUNT MAGNA EASE THERMAFIX 25MM - [id number] - [id number] [employer] [id number] Danie-muhammad Perimount Magna Ease Thermafix [id number] [employer] 1 Implanted Complications: None Condition on Discharge from the operating room was stable Masha Hollingsworth MD Date: 06/23/2020 Time: 3:10 PM TEACHING ATTESTATION : I was present and directly participated in the entire procedure (including opening and closing). Cosigned by Felton Chiu MD at 06/24/2020 1:42 PM MARKET GARDEN WORKER ET GARDEN WORKER ET GARDEN WORKER documented in this encounter Plan of Treatment Not on file documented as of this encounter Procedures Procedure Name Priority Date/Time Associated Diagnosis Comments EVENT MONITOR Routine 06/28/2020 3:21 PM MARKET GARDEN WORKER ECG 12-LEAD Routine 06/28/2020 6:07 AM MARKET GARDEN WORKER CBC WITHOUT DIFFERENTIAL Routine 021 8:21 PM MARKET GARDEN WORKER BASIC METABOLIC PANEL Routine 06/27/2020 8:21 PM MARKET GARDEN WORKER ECG 12-LEAD Routine 06/27/2020 5:28 AM MARKET GARDEN WORKER APTT STAT 06/27/2020 5:20 AM MARKET GARDEN WORKER APTT STAT 06/27/2020 12:41 AM MARKET GARDEN WORKER CBC WITHOUT DIFFERENTIAL Routine 021 11:50 PM MARKET GARDEN WORKER MAGNESIUM Routine 06/26/2020 11:50 PM MARKET GARDEN WORKER BASIC METABOLIC PANEL Routine 06/26/2020 11:50 PM MARKET GARDEN WORKER XR CHEST PA LATERAL 2 VIEWS IP Routine 06/26/2020 2:31 PM MARKET GARDEN WORKER ECG 12-LEAD Routine 06/26/2020 4:14 AM MARKET GARDEN WORKER CBC WITHOUT DIFFERENTIAL STAT 021 11:01 PM MARKET GARDEN WORKER BASIC METABOLIC PANEL STAT 06/25/2020 11:01 PM MARKET GARDEN WORKER XR CHEST PA LATERAL 2 VIEWS IP Routine 06/25/2020 3:24 PM MARKET GARDEN WORKER ECG 12-LEAD Routine 06/25/2020 1:22 PM MARKET GARDEN WORKER CBC WITHOUT DIFFERENTIAL Timed 021 12:20 PM MARKET GARDEN WORKER TRANSFUSE RED BLOOD CELLS Timed 06/25/2020 6:08 AM MARKET GARDEN WORKER ECG 12-LEAD Routine 06/25/2020 5:26 AM MARKET GARDEN WORKER PREPARE RBC Timed 06/25/2020 4:42 AM MARKET GARDEN WORKER CBC WITHOUT DIFFERENTIAL Timed 021 4:02 AM MARKET GARDEN WORKER TYPE AND SCREEN Timed 06/25/2020 4:02 AM MARKET GARDEN WORKER CBC WITHOUT DIFFERENTIAL Routine 021 9:04 PM MARKET GARDEN WORKER MAGNESIUM Routine 06/24/2020 9:04 PM MARKET GARDEN WORKER BASIC METABOLIC PANEL Routine 06/24/2020 9:04 PM MARKET GARDEN WORKER CBC WITHOUT DIFFERENTIAL Timed 021 11:27 AM MARKET GARDEN WORKER POCT GLUCOSE DEVICE Routine 06/24/2020 11:26 AM MARKET GARDEN WORKER BASIC METABOLIC PANEL Timed 06/24/2020 11:26 AM MARKET GARDEN WORKER POCT GLUCOSE DEVICE Routine 06/24/2020 8 :08 AM MARKET GARDEN WORKER POCT GLUCOSE DEVICE Routine 06/24/2020 6 :18 AM MARKET GARDEN WORKER POCT GLUCOSE DEVICE Routine 06/24/2020 5 :29 AM MARKET GARDEN WORKER POCT GLUCOSE DEVICE Routine 06/24/2020 4 :31 AM MARKET GARDEN WORKER POCT GLUCOSE DEVICE Routine 06/24/2020 2 :20 AM MARKET GARDEN WORKER OXYHEMOGLOBIN, PULMONARY ARTERY STAT 06/24/2020 2:04 AM MARKET GARDEN WORKER POTASSIUM, WHOLE BLOOD STAT 2:04 AM MARKET GARDEN WORKER CALCIUM, IONIZED Routine 06/24/2020 2:04 AM MARKET GARDEN WORKER LACTATE, WHOLE BLOOD Routine 06/24/2020 2:04 AM MARKET GARDEN WORKER CBC WITHOUT DIFFERENTIAL Routine 021 2:04 AM MARKET GARDEN WORKER PHOSPHORUS Routine 06/24/2020 2:04 AM MARKET GARDEN WORKER MAGNESIUM Routine 06/24/2020 2:04 AM MARKET GARDEN WORKER BASIC METABOLIC PANEL Routine 06/24/2020 2:04 AM MARKET GARDEN WORKER POCT GLUCOSE DEVICE Routine 06/24/2020 12:12 AM MARKET GARDEN WORKER POCT GLUCOSE DEVICE Routine 06/23/2020 11:21 PM MARKET GARDEN WORKER POCT GLUCOSE DEVICE Routine 06/23/2020 10:16 PM MARKET GARDEN WORKER CRITICAL RESULT CALLBACK CHEMISTRY Routine 06/23/2020 9:01 PM MARKET GARDEN WORKER LACTATE, WHOLE BLOOD Routine 06/23/2020 9:01 PM MARKET GARDEN WORKER BLOOD GAS, ARTERIAL STAT 06/23/2020 9 :01 PM MARKET GARDEN WORKER POCT GLUCOSE DEVICE Routine 06/23/2020 8 :59 PM MARKET GARDEN WORKER XR CHEST 1 VIEW IP Routine 06/23/2020 8:24 PM MARKET GARDEN WORKER POC BLOOD GAS AND CHEMISTRIES, ARTERIAL Routine 06/23/2020 7:01 PM MARKET GARDEN WORKER EXTUBATION Routine 06/23/2020 5:40 PM MARKET GARDEN WORKER CRITICAL CARE Routine 06/23/2020 4:59 PM MARKET GARDEN WORKER Severe aortic stenosis XR CHEST 1 VIEW ED Urgent/IP Urgent 06/23/2020 4:58 PM MARKET GARDEN WORKER XR ABDOMEN AP 1 VIEW ED Urgent/IP Urgent 06/23/2020 4:58 PM MARKET GARDEN WORKER POCT GLUCOSE DEVICE Routine 06/23/2020 4 :47 PM MARKET GARDEN WORKER ECG 12-LEAD STAT 06/23/2020 4:29 PM MARKET GARDEN WORKER POCT GLUCOSE DEVICE Routine 06/23/2020 4 :12 PM MARKET GARDEN WORKER POTASSIUM, WHOLE BLOOD Routine 4:10 PM MARKET GARDEN WORKER CRITICAL RESULT CALLBACK CHEMISTRY Routine 06/23/2020 4:10 PM MARKET GARDEN WORKER CALCIUM, IONIZED Routine 06/23/2020 4:10 PM MARKET GARDEN WORKER LACTATE, WHOLE BLOOD Routine 06/23/2020 4:10 PM MARKET GARDEN WORKER APTT Routine 06/23/2020 4:10 PM MARKET GARDEN WORKER PROTIME-INR Routine 06/23/2020 4:10 PM MARKET GARDEN WORKER CBC WITHOUT DIFFERENTIAL Routine 021 4:10 PM MARKET GARDEN WORKER PHOSPHORUS Routine 06/23/2020 4:10 PM MARKET GARDEN WORKER MAGNESIUM Routine 06/23/2020 4:10 PM MARKET GARDEN WORKER BLOOD GAS, ARTERIAL Routine 06/23/2020 4 :10 PM MARKET GARDEN WORKER BASIC METABOLIC PANEL Routine 06/23/2020 4:10 PM MARKET GARDEN WORKER TRANSFUSE RED BLOOD CELLS Timed 06/23/2020 3:16 PM MARKET GARDEN WORKER TRANSFUSE RED BLOOD CELLS Timed 06/23/2020 3:09 PM MARKET GARDEN WORKER POCT PLATELET COUNT AND HEMATOCRIT Routine 06/23/2020 3:07 PM MARKET GARDEN WORKER POCT PROTHROMBIN TIME Routine 06/23/2020 3:05 PM MARKET GARDEN WORKER POCT PARTIAL THROMBOPLASTIN TIME (PTT) Routine 06/23/2020 3:05 PM MARKET GARDEN WORKER POC BLOOD GAS AND CHEMISTRIES, ARTERIAL Routine 06/23/2020 3:02 PM MARKET GARDEN WORKER TRANSFUSE PLASMA Timed 06/23/2020 2:49 PM MARKET GARDEN WORKER TRANSFUSE PLASMA Timed 06/23/2020 2:41 PM MARKET GARDEN WORKER PREPARE PLASMA STAT 06/23/2020 2:26 PM MARKET GARDEN WORKER POCT HEPARIN/ACT CPB Routine 06/23/2020 1:49 PM MARKET GARDEN WORKER POCT PLATELET COUNT AND HEMATOCRIT Routine 06/23/2020 1:48 PM MARKET GARDEN WORKER POCT PARTIAL THROMBOPLASTIN TIME (PTT) Routine 06/23/2020 1:48 PM MARKET GARDEN WORKER POCT PROTHROMBIN TIME Routine 06/23/2020 1:47 PM MARKET GARDEN WORKER POC BLOOD GAS AND CHEMISTRIES, ARTERIAL Routine 06/23/2020 1:44 PM MARKET GARDEN WORKER TRANSFUSE PLATELETS Timed 06/23/2020 1 :42 PM MARKET GARDEN WORKER POCT HEPARIN/ACT CPB Routine 06/23/2020 12:52 PM MARKET GARDEN WORKER POC BLOOD GAS AND CHEMISTRIES, ARTERIAL Routine 06/23/2020 12:33 PM MARKET GARDEN WORKER EXTRINSIC THROMBOELASTOMETRY (EXTEM) STAT 06/23/2020 12:12 PM MARKET GARDEN WORKER THROMBOCYTE INHIBITED FIBRINOGEN (FIBTEM) STAT 06/23/2020 12:12 PM MARKET GARDEN WORKER POCT HEPARIN/ACT CPB Routine 06/23/2020 11:54 AM MARKET GARDEN WORKER POC BLOOD GAS AND CHEMISTRIES, ARTERIAL Routine 06/23/2020 11:35 AM MARKET GARDEN WORKER PREPARE PLATELETS STAT 06/23/2020 11:22 AM MARKET GARDEN WORKER POCT HEPARIN/ACT CPB Routine 06/23/2020 11:00 AM MARKET GARDEN WORKER POCT HEPARIN/ACT CPB Routine 06/23/2020 9:30 AM MARKET GARDEN WORKER POCT HEPARIN DOSE RESPONSE, CPB Routine 06/23/2020 7:19 AM MARKET GARDEN WORKER POC BLOOD GAS AND CHEMISTRIES, ARTERIAL Routine 06/23/2020 7:15 AM MARKET GARDEN WORKER SANDY ADD-ON FOR OR Routine 06/23/2020 7:0 0 AM MARKET GARDEN WORKER REPLACEMENT AORTIC VALVE 021 6:55 AM MARKET GARDEN WORKER Coronary artery disease without angina pectoris, unspecified vessel or lesion type, unspecified whether samish or transplanted heart Aortic valve stenosis, etiology of cardiac valve disease unspecified Case Notes 06/20: case moved from 06/21 to 06/23 per [facility] via phone call. DRE06/14: Missing postop destination, [facility] sent to [place]. GILBERT ENDOSCOPIC VESSEL HARVEST 06/23/2020 6:55 AM MARKET GARDEN WORKER Coronary artery disease without angina pectoris, unspecified vessel or lesion type, unspecified whether samish or transplanted heart Aortic valve stenosis, etiology of cardiac valve disease unspecified Case Notes 06/20: case moved from 06/21 to 06/23 per Ksenia via phone call. [id number]: Missing postop destination, inbasket sent to [place]. GILBERT HARVEST - RADIAL ARTERY 06/23/19 6:55 AM MARKET GARDEN WORKER Coronary artery disease without angina pectoris, unspecified vessel or lesion type, unspecified whether samish or transplanted heart Aortic valve stenosis, etiology of cardiac valve disease unspecified Case Notes 06/20: case moved from 06/21 to 06/23 per Ksenia via phone call. DRE2: Missing postop destination, inbasket sent to [place]. GILBERT CORONARY ARTERY BYPASS GRAFT WITH PUMP 06/23/2020 6:55 AM MARKET GARDEN WORKER Coronary artery disease without angina pectoris, unspecified vessel or lesion type, unspecified whether samish or transplanted heart Aortic valve stenosis, etiology of cardiac valve disease unspecified Case Notes 06/20: case moved from 06/21 to 06/23 per Ksenia via phone call. DRE2: Missing postop destination, inbasket sent to [place]. GILBERT PREPARE RBC STAT 06/23/2020 6:06 AM MARKET GARDEN WORKER documented in this encounter Results * Event Monitor, 30 Day Event (06/28/2020 3:21 PM MARKET GARDEN WORKER) Anatomical Region Laterality Modality Electrocardiogra phy 06/28/2020 2:25 PM MARKET GARDEN WORKER Narrative 08/10/2020 6:41 PM CDT Patient name: Nathan Wagner Date of test: 06/28/2020 Type of Test: Event Monitor ([facility]) [facility] #: [id number] ?Location: [facility] : 1945 ??Age: 74 ??Sex: M Ref Physician(s): FELTON CHIU MD Interpreted by: Logan Weir MD Hook-Up Tech: [employer] Diagnosis: Monitoring Service: [employer] Reason for Test: I48.0: Paroxysmal atrial fibrillation Monitor Used: Body Guardian Heart (MCT) ??[id number] Enrollment Period: Jun 28 - Jul 27, [...] The full scanned/data report is available in [facility]. labeled MONITOR STRIPS PDF . This study [...] Tachycardia w/PVCs (1 in 1 min) ? 07/13/20 04:14 ?? 90.0 ?Auto Trigger ? [...] test: 06/28/2020 Type of Test: Event Monitor ([facility]) [facility] #: [id number] Location: [facility] : 1945 Age: 74 Sex: M Ref Physician(s): FELTON CHIU MD Interpreted by: Logan Weir MD [employer]-Up Tech: Bijal Nicholas Diagnosis: Monitoring Service: [employer] Reason for Test: I48.0: Paroxysmal atrial fibrillation Monitor Used: Body Guardian Heart (MCT) [id number] Enrollment Period: Jun 28 - Jul 27, [...] The full scanned/data report is available in [employer]. labeled MONITOR STRIPS PDF . This study was interpreted by Logan Weir MD Confirmed on 08/10/2020 - 18:41:08 [...] Fibrillation RVR Sustained (30 Sec), Sinus Rhythm 07/15/20 22:33 58.0 Auto Trigger Sinus Bradycardia, [...] 79.0 None or Accidental Push Sinus Rhythm 07/07/20 18:43 174.0 Auto Trigger Atrial Flutter Onset, Sinus Rhythm w/PVCs (2 in 1 min) 14 07/07/20 06:47 130.0 Auto Trigger Atrial Flutter with Variable Conduction 07/06/20 07:06 110.0 Auto Trigger Atrial Fibrillation RVR Onset, Sinus Rhythm w/Atrial Run 12 07/06/20 04:18 110.0 Auto Trigger Atrial Fibrillation RVR Onset, Sinus Rhythm 07/05/20 04:56 100.0 Auto Trigger Atrial Flutter [...] * ECG 12 lead (06/28/2020 6:07 AM MARKET GARDEN WORKER) [facility] Ventricular Rate EKG/Min 115 BPM [facility] Atrial Rate 249 BPM [facility] QRS-Interval (MSEC) 100 ms [facility] QT-Interval (MSEC) 362 ms [facility] QTc 500 ms [facility] R [place] -27 degrees [facility] T [place] 35 degrees [facility] Diagnosis Atrial flutter with variable A-V block Low voltage in limb leads consider pulmonary disease Nonspecific ST abnormality Abnormal ECG When compared with ECG of 27-JUN-2020 05:28, (unconfirmed) Atrial flutter has replaced Sinus rhythm This ECG was personally interpreted by the attending physician indicated below Confirmed by IVET/ALEJANDRO MADISON ([id number]) on 06/29/2020 12:51:28 PM [facility] 06/28/2020 6:07 AM MARKET GARDEN WORKER 06/29/2020 12:51 PM MARKET GARDEN WORKER Daniele Madrigal HORTICULTURAL MANAGER ECG ORDERABLES Final Resu lt [facility] * (ABNORMAL) Basic metabolic panel (06/27/2020 8:21 PM [employer]ET GARD[employer] WORKER) Pathologist [facility] Sodium 139 135 - 145 mmol/L [facility] Potassium, pl 4.2 3.3 - 4.9 mmol/L [facility] Chloride 104 97 - 110 mmol/L [facility] CO2 29 22 - 32 mmol/L [facility] Anion gap 6 2 - 15 mmol/L [facility] BUN 27(H) 8 - 25 mg/dL [facility] Creatinine 1.29 0.80 - 1.30 mg/dL [facility] Glucose 147 70 - 199 mg/dL [facility] Comment: Interpretive Data Fasting glucose [...] 2017. Calcium 8.7 8.5 - 10.3 mg/dL [facility] Blood specimen (specimen) 06/27/2020 8:21 PM [employer] WORK[employer] 06/27/2020 9:24 PM [employer] GARD[employer] WORKER us Shana Alvarado NP LAB BLOOD ORDERABLES Final Resul t [facility] One [facility] Department [place] [address] * (ABNORMAL) CBC without differential (06/27/2020 8:21 PM [employer] GARD[employer] WORKER) [facility] WBC 9.2 3.8 - 9.9 K/cumm [facility] Hgb 7.6(L) 13.0 - 17.5 g/dL [facility] Hct 23.9(L) 38.9 - 50.3 % [facility] Plt 182 150 - 400 K/cumm [facility] MPV 13.8(H) 9.1 - 12.3 fL [facility] RBC 2.63(L) 4.30 - 5.80 M/cumm [facility] MCV 90.9 81.3 - 96.4 fL [facility] MCH 28.9 27.1 - 33.3 pg [facility] MCHC 31.8(L) 32.3 - 35.7 g/dL [facility] RDW CV 14.6 11.1 - 14.9 % [facility] RDW SD 47.6 35.7 - 48.1 fL [facility] NRBC abs 0.10(H) 0.00 - 0.01 K/cumm [facility] Blood specimen (specimen) 06/27/2020 8:21 PM [employer] WORK[employer] 06/27/2020 9:24 PM [employer] GARD[employer] WORKER us Shana Alvarado NP LAB BLOOD ORDERABLES Final Resul t [facility] One [facility] Department [place] [address] * ECG 12 lead (06/27/2020 5:28 AM [employer] GARDEN WORKER) [facility] Ventricular Rate EKG/Min 80 BPM [facility] Atrial Rate 80 BPM [facility] NM-Interval (MSEC) 168 ms [facility] QRS-Interval (MSEC) 98 ms [facility] QT-Interval (MSEC) 438 ms [facility] QTc 505 ms [facility] P Talmage 48 degrees [facility] R [place] 0 degrees [facility] T Talmage 29 degrees [facility] Diagnosis Sinus rhythm with Premature atrial complexes Possible Left atrial enlargement Prolonged QT Abnormal ECG When compared with ECG of 26-JUN-2020 04:14, (unconfirmed) Premature atrial complexes are now Present Confirmed by LOGAN WEIR M.D ([id number]) on 06/30/2020 1:24:56 PM [facility] 06/27/2020 5:28 AM [employer] WORK[employer] 06/30/2020 1:24 PM [employer] GARDEN WORKER Daniele Madrigal HORTICULTURAL MANAGER ECG ORDERABLES Final Resu lt Performing Organization Address [facility] Co de Phone Number [facility] * (ABNORMAL) aPTT (06/27/2020 5:20 AM [employer] WORKER) aPTT 50(H) 27 - 37 sec [facility] Comment: Interpretive data Heparin therapeutic range: 60-90 seconds Range based on correlation with therapeutic heparin activity range of 0.3-0.7 units/ml. Current interpretive data was last revised on 2019. Blood specimen (specimen) 06/27/2020 5:20 AM [employer] 06/27/2020 5:48 AM [employer] G[employer] WORKER Octavia Heath HORTICULTURAL MANAGER LAB BLOOD ORDERABLES Final Result Performing Organization Address [facility] de Phone Number [facility] One [facility] Department [place] [address] * aPTT (06/27/2020 12:41 AM [employer] GARD[employer] WORKER) aPTT 27 27 - 37 sec [facility] Comment: Interpretive data Heparin therapeutic range: 60-90 seconds Range based on correlation with therapeutic heparin activity range of 0.3-0.7 units/ml. Current interpretive data was last revised on 2019. Blood specimen (specimen) 06/27/2020 12:41 AM [employer] WORKER 06/27/2020 1:31 AM [employer] GARD[employer] WORKER Narrative [facility] - 06/27/2020 1:40 AM [employer] GARD[employer] WORKER Draw STAT PTT 6 hrs after initial heparin bolus, after each rate change, and every 6 hours until 2 consecutive PTTs are within therapeutic range. Once two consecutive PTT's are therapeutic (60-94.9 seconds), then draw PTT every AM until heparin is discontinued. us Octavia Heath NP LAB BLOOD ORDERABLES Final Result Performing Organization Address City/[facility]/ZIP Co de Phone Number [facility] Department [place] [address] * Magnesium (06/26/2020 11:50 PM MARK[employer] GARD[employer] WORKER) Pathologist [facility] Magnesium 2.3 1.4 - 2.5 mg/dL [facility] Blood specimen (specimen) 06/26/2020 11:50 PM [employer] G[employer] WORKER 06/27/2020 12:21 AM [employer] GARD[employer] WORKER Felton Chiu MD LAB BLOOD ORDERABLES Final Resul t Performing Organization Address [facility] Co de Phone Number [facility] Department [place] [address] * (ABNORMAL) Basic metabolic panel (06/26/2020 11:50 PM MARK[employer] GARD[employer] WORKER) [facility] Sodium 141 135 - 145 mmol/L [facility] Potassium, pl 4.4 3.3 - 4.9 mmol/L [facility] Chloride 107 97 - 110 mmol/L [facility] CO2 29 22 - 32 mmol/L [facility] Anion gap 5 2 - 15 mmol/L [facility] BUN 27(H) 8 - 25 mg/dL [facility] Creatinine 1.20 0.80 - 1.30 mg/dL [facility] Glucose 118 70 - 199 mg/dL [facility] Comment: Interpretive Data Fasting glucose [...] 2017. Calcium 8.5 8.5 - 10.3 mg/dL [facility] Blood specimen (specimen) 06/26/2020 11:50 PM [employer] WORKER 06/27/2020 12:21 AM [employer] GARDEN WORKER Shana Alvarado NP LAB BLOOD ORDERABLES Final Resul t Performing Organization Address [facility] Co de Phone Number [facility] Department [place] [address] * (ABNORMAL) CBC without differential (06/26/2020 11:50 PM [employer] GARD[employer] WORKER) WBC 10.9(H) 3.8 - 9.9 K/cumm [facility] Hgb 7.5(L) 13.0 - 17.5 g/dL [facility] Hct 23.7(L) 38.9 - 50.3 % [facility] Plt 154 150 - 400 K/cumm [facility] MPV 14.0(H) 9.1 - 12.3 fL [facility] RBC 2.63(L) 4.30 - 5.80 M/cumm [facility] MCV 90.1 81.3 - 96.4 fL [facility] MCH 28.5 27.1 - 33.3 pg [facility] MCHC 31.6(L) 32.3 - 35.7 g/dL [facility] RDW CV 14.9 11.1 - 14.9 % [facility] RDW SD 49.2(H) 35.7 - 48.1 fL [facility] NRBC abs 0.09(H) 0.00 - 0.01 K/cumm [facility] Blood specimen (specimen) 06/26/2020 11:50 PM [employer] WORK[employer] 06/27/2020 12:21 AM [employer] GARDEN WORKER Shana Alvarado NP LAB BLOOD ORDERABLES Final Resul t Performing Organization Address [facility] Co de Phone Number [facility] Department [place] [address] * XR Chest Pa Lateral 2 Views (06/26/2020 2:31 PM [employer] WORKER) Anatomical Region Laterality Modality Body, Chest N/A Computed Radiogr aphy 06/27/2020 8:32 AM [employer] GARD[employer] WORKER Impressions 06/27/2020 8:56 AM [employer] GARD[employer] WORKER Comparison is made to chest radiography dated [...] David Sanders M.D. Narrative 06/27/2020 8:56 AM [employer] GARDEN WORKER EXAMINATION: 2 view chest radiograph Procedure Note [...] signed by: David Sanders M.D. Shana Alvarado NP IMG XR PROCEDURES Final Result * ECG 12 lead (06/26/2020 4:14 AM [employer] GARD[employer] WORKER) [facility] Ventricular Rate EKG/Min 75 BPM [facility] Atrial Rate 75 BPM [facility] NM-Interval (MSEC) 158 ms [facility] QRS-Interval (MSEC) 100 ms [facility] QT-Interval (MSEC) 432 ms [facility] QTc 482 ms [facility] P Talmage 35 degrees [facility] R Talmage 6 degrees [facility] T Talmage 17 degrees [facility] Diagnosis Normal sinus rhythm Prolonged QT Abnormal ECG When compared with ECG of 25-JUN-2020 13:22, (unconfirmed) No significant change was found Confirmed by LOGAN WEIR M.D ([id number]) on 06/28/2020 10:41:08 PM [facility] 06/26/2020 4:14 AM [employer]ARD[employer] WORKER 06/28/2020 10:41 PM [employer] GARD[employer] WORKER us Emmie Daniels HORTICULTURAL MANAGER ECG ORDERABLES Final Resu lt [facility] * (ABNORMAL) Basic metabolic panel (06/25/2020 11:01 PM MARK[employer] GARD[employer] WORKER) [facility] Sodium 139 135 - 145 mmol/L [facility] Potassium, pl 4.1 3.3 - 4.9 mmol/L [facility] Chloride 106 97 - 110 mmol/L [facility] CO2 28 22 - 32 mmol/L [facility] Anion gap 5 2 - 15 mmol/L [facility] BUN 24 8 - 25 mg/dL [facility] Creatinine 1.28 0.80 - 1.30 mg/dL [facility] Glucose 127 70 - 199 mg/dL [facility] Comment: Interpretive Data Fasting glucose [...] 2017. Calcium 8.4(L) 8.5 - 10.3 mg/dL [facility] Blood specimen (specimen) 06/25/2020 11:01 PM [employer] WORKER 06/25/2020 11:45 PM [employer] GARDEN WORKER Tato Dickerson MD LAB BLOOD ORDERABLES Fi nal Result Performing Organization Address [facility] de Phone Number [facility] Department [place] [employer] [place] [address] * (ABNORMAL) CBC without differential (06/25/2020 11:01 PM [employer] GARD[employer] WORKER) Pathologist [facility] WBC 11.8(H) 3.8 - 9.9 K/cumm [facility] Hgb 7.6(L) 13.0 - 17.5 g/dL [facility] Hct 23.2(L) 38.9 - 50.3 % [facility] Plt 119(L) 150 - 400 K/cumm [facility] MPV 13.5(H) 9.1 - 12.3 fL [facility] RBC 2.62(L) 4.30 - 5.80 M/cumm [facility] MCV 88.5 81.3 - 96.4 fL [facility] MCH 29.0 27.1 - 33.3 pg [facility] MCHC 32.8 32.3 - 35.7 g/dL [facility] RDW CV 14.9 11.1 - 14.9 % [facility] RDW SD 48.1 35.7 - 48.1 fL [facility] NRBC abs 0.03(H) 0.00 - 0.01 K/cumm [facility] Blood specimen (specimen) 06/25/2020 11:01 PM [employer] WORKER 06/25/2020 11:45 PM [employer] GARD[employer] WORKER Tato Dickerson MD LAB BLOOD ORDERABLES Fi nal Result Performing Organization Address City/[facility]/ZIP Co de Phone Number [facility] [place] [place] [address] * XR Chest Pa Lateral 2 Views (06/25/2020 3:24 PM MARKET GARD[employer] WORKER) Anatomical Region Laterality Modality Body, Chest N/A Computed Radiogr aphy 06/26/2020 8:08 AM [employer] GARD[employer] WORKER Impressions 06/26/2020 8:14 AM [employer] GARD[employer] WORKER Comparison is made to 06/23/2020. Right internal jugular central venous line is in place with tip overlying the superior cavoatrial junction. In the interval, the [place]-Preet catheter is removed. Median sternotomy wires are [...] Obie Ware M.D. Narrative 06/26/2020 8:14 AM [employer] GARD[employer] WORKER EXAMINATION: 2 view chest radiograph Procedure Note Obie Ware MD - 06/26/2020 EXAMINATION: 2 view chest radiograph IMPRESSION: Comparison is made to 06/23/2020. Right internal jugular central venous line is in place with tip overlying the superior cavoatrial junction. In the interval, the [place]-Preet catheter is removed. Median sternotomy wires are [...] * ECG 12 lead (06/25/2020 1:22 PM MARKET GARD[employer] WORKER) [facility] Ventricular Rate EKG/Min 80 BPM [facility] Atrial Rate 80 BPM [facility] NM-Interval (MSEC) 144 ms [facility] QRS-Interval (MSEC) 106 ms [facility] QT-Interval (MSEC) 414 ms [facility] QTc 477 ms [facility] P Talmage 48 degrees [facility] R Talmage 11 degrees [facility] T Talmage 33 degrees [facility] Diagnosis Normal sinus rhythm Normal ECG When compared with ECG of 25-JUN-2020 05:26, (unconfirmed) Sinus rhythm has replaced Atrial fibrillation Vent. rate has decreased BY ??46 BPM QRS duration has increased Confirmed by LOGAN WEIR M.D ([id number]) on 06/27/2020 10:42:19 AM [facility] 06/25/2020 1:22 PM [employer] GARD[employer] WORKER 06/27/2020 10:42 AM [employer] GARD[employer] WORKER Daniele Madrigal NP ECG ORDERABLES Final Resu lt [facility] * (ABNORMAL) CBC without differential (06/25/2020 12:20 PM [employer] GARD[employer] WORKER) [facility] WBC 13.0(H) 3.8 - 9.9 K/cumm [facility] Hgb 8.1(L) 13.0 - 17.5 g/dL [facility] Hct 24.5(L) 38.9 - 50.3 % [facility] Plt 133(L) 150 - 400 K/cumm [facility] MPV 13.0(H) 9.1 - 12.3 fL [facility] RBC 2.79(L) 4.30 - 5.80 M/cumm [facility] MCV 87.8 81.3 - 96.4 fL [facility] MCH 29.0 27.1 - 33.3 pg [facility] MCHC 33.1 32.3 - 35.7 g/dL [facility] RDW CV 14.8 11.1 - 14.9 % [facility] RDW SD 47.7 35.7 - 48.1 fL [facility] NRBC abs 0.02(H) 0.00 - 0.01 K/cumm [facility] Blood specimen (specimen) 06/25/2020 12:20 PM [employer] WORKER 06/25/2020 12:31 PM [employer] GARD[employer] WORKER us Emmie Daniels NP LAB BLOOD ORDERABLES Final Result Performing Organization Address [facility] de Phone Number [facility] [place] [address] * Transfuse RBC (06/25/2020 7:56 AM MARK[employer] GARD[employer] WORKER) Blood specimen (specimen) Result Rebecca Daniels NP BLOOD TRANSFUSION ORDERABL ES Final Result Performing Organization Address [facility] de Phone Number [facility] [place] [address] * Transfuse RBC: 1 Units (06/25/2020 7:56 AM [employer] GARD[employer] WORKER) Blood specimen (specimen) Result Rebecca Daniels NP BLOOD TRANSFUSION ORDERABL ES Final Result * ECG 12 lead (06/25/2020 5:26 AM MARK[employer] GARD[employer] WORKER) Ventricular Rate EKG/Min 126 BPM [facility] Atrial Rate 120 BPM [facility] QRS-Interval (MSEC) 86 ms [facility] QT-Interval (MSEC) 288 ms [facility] QTc 417 ms [facility] R Talmage 7 degrees [facility] T Talmage 38 degrees [facility] Diagnosis Atrial fibrillation with rapid ventricular response Abnormal ECG When compared with ECG of 23-JUN-2020 16:29, Atrial fibrillation has replaced Sinus rhythm Vent. rate has increased BY ??[address] no longer depressed in Anterolateral leads Confirmed by LOGAN WEIR M.D ([id number]) on 06/27/2020 10:41:37 AM [facility] 06/25/2020 5:26 AM [employer] GARD[employer] WORKER 06/27/2020 10:41 AM [employer] GARDEN WORKER Emmie Daniels HORTICULTURAL MANAGER ECG ORDERABLES Final Resu lt Performing Organization Address City/[facility]/ZIP Co de Phone Number [facility] * Prepare RBC: 1 Units (06/25/2020 4:42 AM MARKET GARDEN WORKER) Pathologist [facility] Product code [id number] [facility] Unit Number [id number] [facility] Product Blood Type ANEG [facility] Dispense Status PRESUMED TRANSFUSED [facility] Blood specimen (specimen) 06/25/2020 4:42 AM [employer] GARD[employer] WORKER 06/25/2020 4:42 AM [employer] GARDEN WORKER Narrative [facility] - 06/26/2020 12:48 AM [employer] GARDEN WORKER Are special requirements needed? (all products are leukoreduced)->No Date required:-[id number] LRRBC # of [id number] Reasons:-Cardiovascular disease, Hgb <8 g/dL} Emmie Daniels NP BLOOD BANK PRODUCT ORDERAB LES Final Result Performing Organization Address [facility] Co de Phone Number [facility] One [facility] Department [place] [address] * (ABNORMAL) CBC without differential (06/25/2020 4:02 AM MARK[employer] GARD[employer] WORKER) [facility] WBC 11.0(H) 3.8 - 9.9 K/cumm [facility] Hgb 6.5(L) 13.0 - 17.5 g/dL [facility] Hct 20.0(L) 38.9 - 50.3 % [facility] Plt 110(L) 150 - 400 K/cumm [facility] MPV 12.9(H) 9.1 - 12.3 fL [facility] RBC 2.28(L) 4.30 - 5.80 M/cumm [facility] MCV 87.7 81.3 - 96.4 fL [facility] MCH 28.5 27.1 - 33.3 pg [facility] MCHC 32.5 32.3 - 35.7 g/dL [facility] RDW CV 14.7 11.1 - 14.9 % [facility] RDW SD 46.7 35.7 - 48.1 fL [facility] NRBC abs 0.00 0.00 - 0.01 K/cumm [facility] Blood specimen (specimen) 06/25/2020 4:02 AM [employer] WORKER 06/25/2020 4:22 AM [employer] GARD[employer] WORKER us Emmie Daniels HORTICULTURAL MANAGER LAB BLOOD ORDERABLES Final Result Performing Organization Address [facility] Co de Phone Number [facility] [place] [address] * Type and screen (06/25/2020 4:02 AM MARK[employer] GARDEN WORKER) Jasmine, indirect Negative [facility] ABO Rh A Negative [facility] Blood specimen (specimen) 06/25/2020 4:02 AM [employer] GARD[employer] WORKER 06/25/2020 4:16 AM [employer] GARDEN WORKER Narrative [facility] - 06/25/2020 6:[address] [employer] GARDEN WORKER Has the patient had Daratumumab or Isatuximab in the past 6 months?->Unknown us Emmie Daniels HORTICULTURAL MANAGER LAB BLOOD BANK TEST ORDERA BLES Final Result Performing Organization Address [facility] Co de Phone Number [facility] [place] [address] * Magnesium (06/24/2020 9:04 PM [employer] GARD[employer] WORKER) Magnesium 2.3 1.4 - 2.5 mg/dL [facility] Blood specimen (specimen) 06/24/2020 9:04 PM [employer] GARD[employer] WORKER 06/24/2020 9:53 PM [employer] GARDEN WORKER us Emmie Daniels HORTICULTURAL MANAGER LAB BLOOD ORDERABLES Final Result Performing Organization Address [facility] Co de Phone Number [facility] Department [place] [address] * (ABNORMAL) CBC without differential (06/24/2020 9:04 PM MARK[employer] GARD[employer] WORKER) [facility] WBC 11.9(H) 3.8 - 9.9 K/cumm [facility] Hgb 7.2(L) 13.0 - 17.5 g/dL [facility] Hct 22.1(L) 38.9 - 50.3 % [facility] Plt 115(L) 150 - 400 K/cumm [facility] MPV 13.2(H) 9.1 - 12.3 fL [facility] RBC 2.49(L) 4.30 - 5.80 M/cumm [facility] MCV 88.8 81.3 - 96.4 fL [facility] MCH 28.9 27.1 - 33.3 pg [facility] MCHC 32.6 32.3 - 35.7 g/dL [facility] RDW CV 14.6 11.1 - 14.9 % [facility] RDW SD 47.5 35.7 - 48.1 fL [facility] NRBC abs 0.00 0.00 - 0.01 K/cumm [facility] Blood specimen (specimen) 06/24/2020 9:04 PM [employer] GARD[employer] WORKER 06/24/2020 9:55 PM [employer] GARDEN WORKER Emmie Daniels NP LAB BLOOD ORDERABLES Final Result [facility] Department [place] [address] * Basic metabolic panel (06/24/2020 9:04 PM MARKET GARDEN WORKER) [facility] Sodium 141 135 - 145 mmol/L [facility] Potassium, pl 4.2 3.3 - 4.9 mmol/L [facility] Chloride 108 97 - 110 mmol/L [facility] CO2 25 22 - 32 mmol/L [facility] Anion gap 8 2 - 15 mmol/L [facility] BUN 19 8 - 25 mg/dL [facility] Creatinine 1.09 0.80 - 1.30 mg/dL [facility] Glucose 149 70 - 199 mg/dL [facility] Comment: Interpretive Data Fasting glucose [...] 2017. Calcium 8.7 8.5 - 10.3 mg/dL [facility] Blood specimen (specimen) 06/24/2020 9:04 PM [employer] GARD[employer] WORKER 06/24/2020 9:53 PM [employer] GARD[employer] WORKER us Emmie Daniels HORTICULTURAL MANAGER LAB BLOOD ORDERABLES Final Result [facility] One [facility] Department [place] [address] * (ABNORMAL) CBC without differential (06/24/2020 11:27 AM [employer] GARD[employer] WORKER) WBC 12.7(H) 3.8 - 9.9 K/cumm [facility] Hgb 8.0(L) 13.0 - 17.5 g/dL [facility] Hct 23.9(L) 38.9 - 50.3 % [facility] Plt 136(L) 150 - 400 K/cumm [facility] MPV 12.6(H) 9.1 - 12.3 fL [facility] RBC 2.74(L) 4.30 - 5.80 M/cumm [facility] MCV 87.2 81.3 - 96.4 fL [facility] MCH 29.2 27.1 - 33.3 pg [facility] MCHC 33.5 32.3 - 35.7 g/dL [facility] RDW CV 14.7 11.1 - 14.9 % [facility] RDW SD 47.2 35.7 - 48.1 fL [facility] NRBC abs 0.00 0.00 - 0.01 K/cumm [facility] Blood specimen (specimen) 06/24/2020 11:27 AM [employer]ARD[employer] WORKER 06/24/2020 11:49 AM [employer] GARD[employer] WORKER us David Jones HORTICULTURAL MANAGER LAB BLOOD ORDERABLES Final Result Performing Organization Address [facility] de Phone Number [facility] [place] [address] * POCT glucose (06/24/2020 11:26 AM [employer] GARD[employer] WORKER) Pathologist [facility] Glucose, POC 146 70 - 199 mg/dL [facility] Blood specimen (specimen) 06/24/2020 11:26 AM [employer] 06/24/2020 11:26 AM [employer] WORKER Felton Chiu MD LAB POCT ORDERABLES - DEVICE Fin al Result Performing Organization Address [facility] de Phone Number [facility] [place] [address] * Basic metabolic panel (06/24/2020 11:26 AM [employer] WORKER) [facility] Sodium 143 135 - 145 mmol/L [facility] Potassium, pl 4.5 3.3 - 4.9 mmol/L [facility] Chloride 108 97 - 110 mmol/L [facility] CO2 26 22 - 32 mmol/L [facility] Anion gap 9 2 - 15 mmol/L [facility] BUN 17 8 - 25 mg/dL [facility] Creatinine 1.07 0.80 - 1.30 mg/dL [facility] Glucose 145 70 - 199 mg/dL [facility] Comment: Interpretive Data Fasting glucose [...] 2017. Calcium 8.8 8.5 - 10.3 mg/dL [facility] Blood specimen (specimen) 06/24/2020 11:26 AM [employer] WORKER 06/24/2020 11:49 [address] [employer] [employer] WORKER us David Jones HORTICULTURAL MANAGER LAB BLOOD ORDERABLES Final Result Performing Organization Address [facility] Co de Phone Number [facility] [place] [address] * POCT glucose (06/24/2020 8:08 AM MARK[employer] GARDEN WORKER) Glucose, POC 137 70 - 199 mg/dL [facility] Blood specimen (specimen) 06/24/2020 8:08 [address] [employer] GARDEN WORKER 06/24/2020 8:08 [address] [employer] [employer]EN WORKER Felton Chiu MD LAB POCT ORDERABLES - DEVICE Fin al Result Performing Organization Address [facility] Co de Phone Number [facility] Department [place] [address] * POCT glucose (06/24/2020 6:18 AM MARK[employer] GARDEN WORKER) Glucose, POC 119 70 - 199 mg/dL [facility] Blood specimen (specimen) 06/24/2020 6:18 AM [employer] GARDEN WORKER 06/24/2020 6:18 [address] [employer] GARDEN WORKER Felton Chiu MD LAB POCT ORDERABLES - DEVICE Fin al Result Performing Organization Address [facility] Co de Phone Number [facility] Department [place] [place] [address] * POCT glucose (06/24/2020 5:29 AM [employer] GARDEN WORKER) Glucose, POC 121 70 - 199 mg/dL [facility] Blood specimen (specimen) 06/24/2020 5:29 AM [employer] GARDEN WORKER 06/24/2020 5:29 AM [employer] GARDEN WORKER Felton Chiu MD LAB POCT ORDERABLES - DEVICE Fin al Result Performing Organization Address City/[facility] Co de Phone Number [facility] [place] [address] * POCT glucose (06/24/2020 4:31 AM [employer] GARDEN WORKER) Glucose, POC 135 70 - 199 mg/dL [facility] Blood specimen (specimen) 06/24/2020 4:31 AM [employer] GARDEN WORKER 06/24/2020 4:31 AM [employer] GARDEN WORKER Felton Chiu MD LAB POCT ORDERABLES - DEVICE Fin al Result Performing Organization Address [facility] Co de Phone Number [facility] [place] [address] * POCT glucose (06/24/2020 2:20 AM MARK[employer] GARDEN WORKER) Glucose, POC 177 70 - 199 mg/dL [facility] Blood specimen (specimen) 06/24/2020 2:20 AM [employer] GARDEN WORKER 06/24/2020 2:20 AM [employer] GARDEN WORKER Felton Chiu MD LAB POCT ORDERABLES - DEVICE Fin al Result Performing Organization Address [facility] Co de Phone Number [facility] [place] [address] * Magnesium (06/24/2020 2:04 AM MARK[employer] GARDEN WORKER) Magnesium 2.3 1.4 - 2.5 mg/dL [facility] Blood specimen (specimen) 06/24/2020 2:04 AM [employer] GARDEN WORKER 06/24/2020 2:15 AM MARK[employer] GARDEN WORKER Result [facility] Felton Chiu MD LAB BLOOD ORDERABLES Final Resul t Performing Organization Address City/[facility]/ZIP Co de Phone Number [facility] [place] [address] * (ABNORMAL) Lactate, whole blood (06/24/2020 2:04 AM MARK[employer] GARDEN WORKER) Lactate, bld 3.3(H) 0.7 - 2.0 mmol/L [facility] Blood specimen (specimen) 06/24/2020 2:04 AM [employer] GARDEN WORKER 06/24/2020 2:15 AM [employer] GARDEN WORKER Result [facility] Chino Sanders MD LAB BLOOD ORDERABLES Final Result Performing Organization Address [facility]/ZIP Co de Phone Number [facility] [place] [address] * (ABNORMAL) Calcium, ionized (06/24/2020 2:[address] AM [employer] GARDEN WORKER) Calcium, Ionized 4.48(L) 4.50 - 5.10 mg/dL [facility] Blood specimen (specimen) 06/24/2020 2:04 AM [employer] GARDEN WORKER 06/24/2020 2:15 AM [employer] GARDEN WORKER Result [facility] Chino Sanders MD LAB BLOOD ORDERABLES Final Result Performing Organization Address City/[facility] [place] [address] * Oxyhemoglobin, pulmonary artery (06/24/2020 2:04 AM [employer] GARDEN WORKER) Oxyhemoglobin, PA 60.4 % [facility] Comment: Interpretive Data No reference range established. Current interpretive data was last revised 2019. Blood specimen (specimen) 06/24/2020 2:[address] [employer] GARDEN WORKER 06/24/2020 2:14 AM [employer] GARDEN WORKER Fabi Handy HORTICULTURAL MANAGER LAB BLOOD ORDERABLES Final Result Performing Organization Address [facility] Co de Phone Number [facility] [place] [address] * Potassium, whole blood (06/24/2020 2:[address] AM MARK[employer] GARDEN WORKER) Potassium, bld 4.5 3.3 - 4.9 mmol/L [facility] Comment: Interpretive Data Unable to assess hemolysis. ??Invitro hemolysis causes falsely elevated potassium. Current Interpretive Data was last revised on 2019. Blood specimen (specimen) 06/24/2020 2:04 AM [employer] GARDEN WORKER 06/24/2020 2:15 [address] [employer] GARDEN WORKER Fabi Handy HORTICULTURAL MANAGER LAB BLOOD ORDERABLES Final Result Performing Organization Address [facility] [place] [address] * Phosphorus (06/24/2020 2:04 AM MARK[employer] GARDEN WORKER) Phosphorus, pl 4.0 2.3 - 4.5 mg/dL [facility] Blood specimen (specimen) 06/24/2020 2:04 AM [employer] GARDEN WORKER 06/24/2020 2:15 AM [employer] GARDEN WORKER Fabi Handy HORTICULTURAL MANAGER LAB BLOOD ORDERABLES Final Result Performing Organization Address [facility] [place] [address] * Basic metabolic panel (06/24/2020 2:[address] AM [employer] GARDEN WORKER) Sodium 144 135 - 145 mmol/L [facility] Potassium, pl 4.9 3.3 - 4.9 mmol/L [facility] Chloride 110 97 - 110 mmol/L [facility] CO2 24 22 - 32 mmol/L [facility] Anion gap 10 2 - 15 mmol/L [facility] BUN 15 8 - 25 mg/dL [facility] Creatinine 1.02 0.80 - 1.30 mg/dL [facility] Glucose 167 70 - 199 mg/dL [facility] Comment: Interpretive Data Fasting glucose [...] 2017. Calcium 8.6 8.5 - 10.3 mg/dL [facility] Blood specimen (specimen) 06/24/2020 2:04 AM [employer] GARDEN WORKER 06/24/2020 2:15 [address] [employer] GARDEN WORKER us Fabi Handy HORTICULTURAL MANAGER LAB BLOOD ORDERABLES Final Result [facility] One [facility] [place] [address] * (ABNORMAL) CBC without differential (06/24/2020 2:[address] [employer] GARDEN WORKER) WBC 13.7(H) 3.8 - 9.9 K/cumm [facility] Hgb 8.2(L) 13.0 - 17.5 g/dL [facility] Hct 24.3(L) 38.9 - 50.3 % [facility] Plt 166 150 - 400 K/cumm [facility] MPV 11.9 9.1 - 12.3 fL [facility] RBC 2.87(L) 4.30 - 5.80 M/cumm [facility] MCV 84.7 81.3 - 96.4 fL [facility] MCH 28.6 27.1 - 33.3 pg [facility] MCHC 33.7 32.3 - 35.7 g/dL [facility] RDW CV 14.4 11.1 - 14.9 % [facility] RDW SD 44.6 35.7 - 48.1 fL [facility] NRBC abs 0.00 0.00 - 0.01 K/cumm [facility] Blood specimen (specimen) 06/24/2020 2:04 AM [employer] GARDEN WORKER 06/24/2020 2:22 AM [employer] GARDEN WORKER us Fabi Handy HORTICULTURAL MANAGER LAB BLOOD ORDERABLES Final Result Performing Organization Address [facility] Co de Phone Number [facility] [place] [address] * POCT glucose (06/24/2020 12:12 AM MARK[employer] GARDEN WORKER) Glucose, POC 158 70 - 199 mg/dL [facility] Blood specimen (specimen) 06/24/2020 12:12 AM [employer] GARDEN WORKER 06/24/2020 12:12 AM [employer] GARDEN WORKER us Felton Chiu MD LAB POCT ORDERABLES - DEVICE Fin al Result Performing Organization Address [facility] Co de Phone Number [facility] [place] [address] * POCT glucose (06/23/2020 11:21 PM [employer] GARDEN WORKER) Glucose, POC 167 70 - 199 mg/dL [facility] Blood specimen (specimen) 06/23/2020 11:21 PM [employer] GARDEN WORKER 06/23/2020 11:21 PM [employer] GARDEN WORKER us Felton Chiu MD LAB POCT ORDERABLES - DEVICE Fin al Result Performing Organization Address City/[facility] Co de Phone Number [facility] [place] [address] * POCT glucose (06/23/2020 10:16 PM MARK[address] GARDEN WORKER) Glucose, POC 175 70 - 199 mg/dL [facility] Blood specimen (specimen) 06/23/2020 10:16 [address] [employer] GARDEN WORKER 06/23/2020 10:16 [address] [employer] GARDEN WORKER us Felton Chiu MD LAB POCT ORDERABLES - DEVICE Fin al Result [facility] [place] [address] * Critical Result Callback Chemistry (06/23/2020 9:01 PM MARK[employer] GARDEN WORKER) Date Notified [id number] [facility] Time Notified 2111 [facility] TestName Lactate Whole Blood [facility] Called/Read Back Manuela [facility] Credentials RN [facility] Called By ajay [facility] Blood specimen (specimen) 06/23/2020 9:01 [address] [employer] GARDEN WORKER 06/23/2020 9:06 PM [employer] GARDEN WORKER Manuel Colorado NP LAB BLOOD ORDERABLE S Final Result Performing Organization Address City/[facility]/ZIP Co de Phone Number [facility] [place] [address] * (ABNORMAL) Lactate, whole blood (06/23/2020 9:01 PM MARK[employer] GARDEN WORKER) Lactate, bld 5.2(C) 0.7 - 2.0 mmol/L [facility] Blood specimen (specimen) 06/23/2020 9:01 PM [employer] GARDEN WORKER 06/23/2020 9:06 [address] [employer] GARDEN WORKER Manuel Colorado NP LAB BLOOD ORDERABLE S Final Result [facility] [place] [address] * (ABNORMAL) Blood gas, arterial (06/23/2020 9:01 PM MARK[employer] GARDEN WORKER) [facility] pH, Art 7.38 7.35 - 7.45 [facility] PCO2, Arterial 35 35 - 45 mmHg [facility] PO2, Arterial 117(H) 83 - 108 mmHg [facility] HCO3 Art (Calculated) 21 20 - 30 mmol/L [facility] BE, art -4 mmol/L [facility] Comment: Interpretive Data No Reference Range Established Current Interpretive Data was last revised on 2017 O2 Sat Art (Measured) 99(H) 90 - 95 % [facility] Blood specimen (specimen) 06/23/2020 9:01 PM [employer] GARDEN WORKER 06/23/2020 9:06 PM [employer] GARDEN WORKER us Fabi Handy HORTICULTURAL MANAGER LAB BLOOD ORDERABLES Final Result Performing Organization Address [facility] Co de Phone Number [facility] [place] [address] * POCT glucose (06/23/2020 8:59 PM MARKET GARDEN WORKER) [facility] Glucose, POC 197 70 - 199 mg/dL [facility] Blood specimen (specimen) 06/23/2020 8:59 PM MARKET GARDEN WORKER 06/23/2020 8:59 PM MARKET GARDEN WORKER us Felton Chiu MD LAB POCT ORDERABLES - DEVICE Fin al Result [facility] [place] [address] * XR Chest 1 View Portable (06/23/2020 8:24 PM MARKET GARDEN WORKER) Anatomical Region Laterality Modality Body, Chest N/A Computed Radiogr aphy 06/24/2020 9:31 AM MARK[employer] GARDEN WORKER Impressions 06/24/2020 10:11 AM [employer] GARDEN WORKER The current study is compared with the prior radiograph dated 06/23/2020 4:31 PM. Interval removal of the endotracheal tube. Median sternotomy wires are aligned and intact. Epicardial pacing wires are again noted. Right internal jugular central venous catheter tip overlies the right atrium. Right internal jugular [place]Preet catheter tip overlies the main pulmonary artery. Mediastinal drain and pericardial drain are noted. Aortic valve replacement is noted. Minimal bibasilar atelectasis. No pleural effusion or pneumothorax. Cardiomediastinal silhouette is stable. Dictated by: Craol Tyler M.D. The radiology attending physician has personally reviewed this study, and had reviewed and/or edited this written report and agrees with it. Electronically signed by: Pipe Mercedes M.D. Narrative 06/24/2020 10:11 [address] [employer] GARDEN WORKER EXAMINATION: 1 view chest radiograph Procedure Note [...] overlies the right atrium. Right internal jugular [place]-Preet catheter tip overlies the main pulmonary artery. Mediastinal drain and pericardial drain are noted. Aortic valve replacement is noted. Minimal bibasilar atelectasis. No pleural effusion or pneumothorax. Cardiomediastinal silhouette is stable. Dictated by: Carol Tyler M.D. The radiology attending physician has personally reviewed this study, and had reviewed and/or edited this written report and agrees with it. Electronically signed by: Pipe Mercedes M.D. Fabi Handy HORTICULTURAL MANAGER IMG XR PROCEDURES Final Re sult * (ABNORMAL) POC Blood Gas and Chemistries, Arterial - (06/23/2020 7:01 PM MARKET GARDEN WORKER) [facility] pH, Art POC 7.38 7.35 - 7.45 [facility] pCO2, Art POC 36 35 - 45 mmHg [facility] pO2, Art POC 82(L) 83 - 108 mmHg [facility] Na, POC 142 135 - 145 mmol/L [facility] K POC 4.9 3.3 - 4.9 mmol/L [facility] Comment: Interpretive Data Unable to assess hemolysis. ??Invitro hemolysis causes falsely elevated potassium. Current Interpretive Data was last revised on 2019. Cl, POC 108 97 - 110 mmol/L [facility] Ionized Ca, POC 4.68 4.50 - 5.10 mg/dL [facility] Glucose, POC 182 70 - 199 mg/dL [facility] Lactate, POC 4.4(C) 0.7 - 2.2 mmol/L [facility] SO2 (miguelangel) arterial 99(H) 90 - 95 % [facility] Base excess, POC -3.3 mmol/L [facility] HCO3, Art POC 21 20 - 30 mmol/L [facility] Hct, POC 28.0(L) 41.4 - 51.6 % [facility] O2 Sat, Art POC (Calc) 96 % [facility] Total Hb, POC 9.2(L) 13.8 - 17.2 g/dL [facility] Blood specimen (specimen) 06/23/2020 7:01 PM MARKET GARDEN WORKER 06/23/2020 7:01 PM [employer] GARDEN WORKER us Felton Chiu MD LAB POCT ORDERABLES - DEVICE Fin al Result Performing Organization Address City/State/[facility] Co de Phone Number [facility] One [facility] [place] [address] * Critical Care (06/23/2020 4:59 PM MARKET GARDEN WORKER) Narrative Kenny Lewis MD - 06/23/2020 4:59 PM MARK[employer] GARDEN WORKER Manuel Colorado NP ? 06/23/2020 ??7:12 PM [...] plan with the ICU team and other medical/pricing consultant staff, making frequent assessments and decisions [...] and the medical staff us Manuel Colorado NP IN CLINIC/BEDSIDE O RDERABLES Final Result * XR Chest 1 View (06/23/2020 4:58 PM MARKET GARDEN WORKER) Anatomical Region Laterality Modality Body, Chest N/A Computed Radiogr aphy 06/23/2020 5:32 PM MARKET GARDEN WORKER Impressions 06/23/2020 5:43 PM MARKET GARDEN WORKER Interval intubation. Median sternotomy wires are now in place. A right internal jugular central venous catheter is in place, with tip at the cavoatrial junction. A right internal jugular [place]-Preet catheter is in place, with tip in [...] Pipe Mercedes M.D. Narrative 06/23/2020 5:43 PM MARKET GARDEN WORKER EXAMINATION: XR CHEST 1 VIEW 06/23/2020 3:55 PM DEMOGRAPHICS: Male; 74 years old. COMPARISON: 06/17/2020 Procedure Note Pipe Mercedes MD - 06/23/2020 EXAMINATION: XR CHEST 1 VIEW 06/23/2020 3:55 PM DEMOGRAPHICS: Male; 74 years old. COMPARISON: 06/17/2020 IMPRESSION: Interval intubation. Median sternotomy wires are now in place. A right internal jugular central venous catheter is in place, with tip at the cavoatrial junction. A right internal jugular [place]-Preet catheter is in place, with tip in [...] it. Electronically signed by: Pipe Mercedes M.D. Fabi Handy HORTICULTURAL MANAGER IMG XR PROCEDURES Final Re sult * XR Abdomen AP 1 View - KUB (06/23/2020 4:58 PM MARKET GARDEN WORKER) Anatomical Region Laterality Modality Body, Abdomen N/A Computed Radiogr aphy 06/24/2020 8:55 AM MARKET GARDEN WORKER Impressions 06/24/2020 11:47 AM [employer] GARDEN WORKER A single view of the abdomen is submitted for evaluation. No gastric tube is seen. Partially visualized chest tubes and epicardial pacer wires are noted. The hemidiaphragms are excluded from the [id number]. No dilated loops of bowel are seen in the visualized abdomen. Dictated by: Derek Gautam M.D. The radiology attending physician has personally reviewed this study, and had reviewed and/or edited this written report and agrees with it. Electronically signed by: Tanika Harris M.D. Narrative 06/24/2020 11:47 [address] [employer] GARDEN WORKER EXAMINATION: Abdomen, one view. HISTORY: Orogastric tube [...] noted. The hemidiaphragms are excluded from the [id number]. No dilated loops of bowel are seen in the visualized abdomen. Dictated by: Derek Gautam M.D. The radiology attending physician has personally reviewed this study, and had reviewed and/or edited this written report and agrees with it. Electronically signed by: Tanika Harris M.D. us Fabi Handy HORTICULTURAL MANAGER IMG XR PROCEDURES Final Re sult * POCT glucose (06/23/2020 4:47 PM MARKET GARDEN WORKER) [facility] Signature Glucose, POC 157 70 - 199 mg/dL [facility] Blood specimen (specimen) 06/23/2020 4:47 PM MARK[employer] GARDEN WORKER 06/23/2020 4:47 PM MARKET GARDEN WORKER us Felton Chiu MD LAB POCT ORDERABLES - DEVICE Fin al Result [facility] One [facility] Department [place] [address] * ECG 12 lead (06/23/2020 4:29 PM MARKET GARDEN WORKER) Pathologist [facility] Ventricular Rate EKG/Min 78 BPM [facility] Atrial Rate 78 BPM [facility] NM-Interval (MSEC) 142 ms [facility] QRS-Interval (MSEC) 100 ms [facility] QT-Interval (MSEC) 444 ms [facility] QTc 506 ms [facility] P [place]mage 64 degrees [facility] R [place] -6 degrees [facility] T [place] 35 degrees [facility] Diagnosis Normal sinus rhythm Junctional ST depression, probably normal Prolonged QT Abnormal ECG When compared with ECG of 17-JUN-2020 16:50, (unconfirmed) ST elevation now present in Inferior leads ST more depressed in Lateral leads QT has lengthened Confirmed by GERBER MIRZA M.D ([id number]) on 06/24/2020 10:09:13 PM [facility] 06/23/2020 4:29 PM MARKET GARDEN WORKER 06/24/2020 10:09 PM MARK[employer] GARDEN WORKER us Fabi Handy HORTICULTURAL MANAGER ECG ORDERABLES Final Resu lt [facility] * POCT glucose (06/23/2020 4:12 PM MARKET GARDEN WORKER) Pathologist [facility] Glucose, POC 170 70 - 199 mg/dL [facility] Blood specimen (specimen) 06/23/2020 4:12 PM MARKET GARDEN WORKER 06/23/2020 4:12 PM MARKET GARDEN WORKER us Felton Chiu MD LAB POCT ORDERABLES - DEVICE Fin al Result [facility] One [facility] Department [place] [address] * Critical Result Callback Chemistry (06/23/2020 4:10 PM MARKET GARDEN WORKER) Pathologist [facility] Date Notified 20200623 [facility] Time Notified 1655 [facility] TestName Lactate Whole Blood [facility] Called/Read Back Debbie [facility] Credentials TREV [facility] Called By AW [facility] Blood specimen (specimen) 06/23/2020 4:10 PM MARKET GARDEN WORKER 06/23/2020 4:19 PM MARKET GARDEN WORKER us Felton Chiu MD LAB BLOOD ORDERABLES Final Resul t Performing Organization Address City/[facility] Co de Phone Number [facility] Department [place] [address] * (ABNORMAL) Lactate, whole blood (06/23/2020 4:10 PM MARKET GARDEN WORKER) Lactate, bld 4.9(C) 0.7 - 2.0 mmol/L [facility] Blood specimen (specimen) 06/23/2020 4:10 PM MARKET GARDEN WORKER 06/23/2020 4:19 PM MARKET GARDEN WORKER us Felton Chiu MD LAB BLOOD ORDERABLES Final Resul t Performing Organization Address [facility] de Phone Number [facility] [place] [address] * (ABNORMAL) Blood gas, arterial (06/23/2020 4:10 PM MARKET GARDEN WORKER) pH, Art 7.29(L) 7.35 - 7.45 [facility] PCO2, Arterial 40 35 - 45 mmHg [facility] PO2, Arterial 188(H) 83 - 108 mmHg [facility] HCO3 Art (Calculated) 20 20 - 30 mmol/L [facility] BE, art -7 mmol/L [facility] Comment: Interpretive Data No Reference Range Established Current Interpretive Data was last revised on 2017 O2 Sat Art (Measured) 100(H) 90 - 95 % [facility] Blood specimen (specimen) 06/23/2020 4:10 PM MARKET GARDEN WORKER 06/23/2020 4:19 PM MARKET GARDEN WORKER us Fabi Handy NP LAB BLOOD ORDERABLES Final Result Performing Organization Address [facility] Co de Phone Number [facility] [place] [address] * (ABNORMAL) Protime-INR (06/23/2020 4:10 PM MARKET GARDEN WORKER) [facility] PT 14.7(H) 9.5 - 13.6 sec [facility] INR 1.3(H) 0.9 - 1.2 [facility] Comment: Interpretive data Oral anticoagulant therapeutic ranges: Venous thromboembolism prophylaxis or treatment: 2.0-3.0 CARDIOLOGY Standard range: 2.0-3.0 High-intensity range: 2.5-3.5 Refer to indication-specific guidelines for appropriate target ranges for prosthetic heart valve replacement. Current interpretive data was last revised on 2019. Blood specimen (specimen) 06/23/2020 4:10 PM MARKET GARDEN WORKER 06/23/2020 4:25 PM MARKET GARDEN WORKER Fabi Handy HORTICULTURAL MANAGER LAB BLOOD [place] [address] * Phosphorus (06/23/2020 4:10 PM MARKET GARDEN WORKER) [facility] Phosphorus, pl 4.5 2.3 - 4.5 mg/dL [facility] Blood specimen (specimen) 06/23/2020 4:10 PM MARKET GARDEN WORKER 06/23/2020 4:19 PM MARKET GARDEN WORKER Fabi Handy HORTICULTURAL MANAGER LAB BLOOD [place] [address] * Magnesium (06/23/2020 4:10 PM MARKET GARDEN WORKER) [facility] Magnesium 2.5 1.4 - 2.5 mg/dL [facility] Blood specimen (specimen) 06/23/2020 4:10 PM MARKET GARDEN WORKER 06/23/2020 4:19 PM MARKET GARDEN WORKER Fabi Handy HORTICULTURAL MANAGER LAB BLOOD ORDERABLES Final Result Performing Organization Address [facility] de Phone Number [facility] [place] [address] * Potassium, whole blood (06/23/2020 4:10 PM MARKET GARDEN WORKER) Pathologist [facility] Potassium, bld 4.2 3.3 - 4.9 mmol/L [facility] Comment: Interpretive Data Unable to assess hemolysis. ??Invitro hemolysis causes falsely elevated potassium. Current Interpretive Data was last revised on 2019. Blood specimen (specimen) 06/23/2020 4:10 PM [employer] GARDEN WORKER 06/23/2020 4:19 PM [employer] GARDEN WORKER Fabi Handy NP LAB BLOOD ORDERABLES Final Result Performing Organization Address [facility] Co de Phone Number [facility] [place] [address] * (ABNORMAL) Calcium, ionized (06/23/2020 4:10 PM MARKET GARDEN WORKER) [facility] Calcium, Ionized 4.44(L) 4.50 - 5.10 mg/dL [facility] Blood specimen (specimen) 06/23/2020 4:10 PM [employer] GARDEN WORKER 06/23/2020 4:19 PM [employer] GARDEN WORKER Fabi Handy HORTICULTURAL MANAGER LAB BLOOD ORDERABLES Final Result Performing Organization Address [facility] Co de Phone Number [facility] [place] [address] * (ABNORMAL) Basic metabolic panel (06/23/2020 4:10 PM MARKET GARDEN WORKER) Sodium 144 135 - 145 mmol/L [facility] Potassium, pl 4.5 3.3 - 4.9 mmol/L [facility] Chloride 111(H) 97 - 110 mmol/L [facility] CO2 21(L) 22 - 32 mmol/L [facility] Anion gap 12 2 - 15 mmol/L [facility] BUN 17 8 - 25 mg/dL [facility] Creatinine 1.03 0.80 - 1.30 mg/dL [facility] Glucose 164 70 - 199 mg/dL [facility] Comment: Interpretive Data Fasting glucose [...] 2017. Calcium 8.3(L) 8.5 - 10.3 mg/dL [facility] Blood specimen (specimen) 06/23/2020 4:10 PM [employer] GARDEN WORKER 06/23/2020 4:19 PM [employer] GARDEN WORKER us Fabi Handy HORTICULTURAL MANAGER LAB BLOOD ORDERABLES Final Result [facility] One [facility] Department [place] [address] * (ABNORMAL) CBC without differential (06/23/2020 4:10 PM MARKET GARDEN WORKER) WBC 15.7(H) 3.8 - 9.9 K/cumm [facility] Hgb 9.3(L) 13.0 - 17.5 g/dL [facility] Hct 28.0(L) 38.9 - 50.3 % [facility] Plt 136(L) 150 - 400 K/cumm [facility] MPV 11.5 9.1 - 12.3 fL [facility] RBC 3.16(L) 4.30 - 5.80 M/cumm [facility] MCV 88.6 81.3 - 96.4 fL [facility] MCH 29.4 27.1 - 33.3 pg [facility] MCHC 33.2 32.3 - 35.7 g/dL [facility] RDW CV 13.9 11.1 - 14.9 % [facility] RDW SD 45.2 35.7 - 48.1 fL [facility] NRBC abs 0.00 0.00 - 0.01 K/cumm [facility] Blood specimen (specimen) 06/23/2020 4:10 PM [employer] GARDEN WORKER 06/23/2020 4:25 PM MARK[employer] GARDEN WORKER us Fabi Handy NP LAB BLOOD ORDERABLES Final Result Performing Organization Address [facility] Co de Phone Number [facility] [place] [address] * aPTT (06/23/2020 4:10 PM MARKET GARDEN WORKER) aPTT 27 27 - 37 sec [facility] Comment: Interpretive data Heparin therapeutic range: 60-90 seconds Range based on correlation with therapeutic heparin activity range of 0.3-0.7 units/ml. Current interpretive data was last revised on 2019. Blood specimen (specimen) 06/23/2020 4:10 PM MARK[employer] GARDEN WORKER 06/23/2020 4:25 PM MARK[employer] GARDEN WORKER us Fabi Handy NP LAB BLOOD ORDERABLES Final Result Performing Organization Address City/[facility] Co de Phone Number [facility] [place] [address] * Transfuse RBC (06/23/2020 3:16 PM MARK[employer] GARDEN WORKER) Blood specimen (specimen) us Barb Washington MD BLOOD TRANSFUSION ORDER DAJA Final Result Performing Organization Address City/[facility] Co de Phone Number [facility] [place] [address] * Transfuse RBC (06/23/2020 3:10 PM MARKET GARDEN WORKER) Blood specimen (specimen) Result [facility] Barb Washington MD BLOOD TRANSFUSION ORDER DAJA Final Result Performing Organization Address [facility] Co de Phone Number [facility] [place] [address] * (ABNORMAL) POCT platelet count and hematocrit (06/23/2020 3:07 PM MARKET GARDEN WORKER) Pathologist [facility] Hematocrit POC 21.6(L) 40.7 - 50.3 % [facility] Platelet POC 171 140 - 440 K/cumm [facility] Blood specimen (specimen) 06/23/2020 3:07 PM MARK[employer] GARDEN WORKER 06/23/2020 3:07 PM MARKET GARDEN WORKER Result [facility] Felton Chiu MD LAB POCT ORDERABLES - DEVICE Fin al Result Performing Organization Address [facility] [place] [address] * (ABNORMAL) POCT prothrombin time (06/23/2020 3:05 PM MARK[employer] GARDEN WORKER) Pathologist [facility] PT, POC 23.8(H) 12.1 - 17.0 sec [facility] INR, POC 1.8(H) 1.0 - 1.3 [facility] Blood specimen (specimen) 06/23/2020 3:05 PM MARKET GARDEN WORKER 06/23/2020 3:05 PM MARKET GARDEN WORKER Result [facility] Felton Chiu MD LAB POCT ORDERABLES - DEVICE Fin al Result Performing Organization Address City/[facility] Co de Phone Number [facility] [place] [address] * POCT Partial thromboplastin time (PTT) (06/23/2020 3:05 PM MARKET GARDEN WORKER) APTT, POC 35.3 29.3 - 45.4 sec [facility] Blood specimen (specimen) 06/23/2020 3:05 PM [employer] GARDEN WORKER 06/23/2020 3:05 PM MARK[employer] GARDEN WORKER us Felton Chiu MD LAB POCT ORDERABLES - DEVICE Fin al Result [facility] One [facility] Department [place] [address] * (ABNORMAL) POC Blood Gas and Chemistries, Arterial - (06/23/2020 3:02 PM MARKET GARDEN WORKER) Pathologist [facility] pH, Art POC 7.30(L) 7.35 - 7.45 [facility] pCO2, Art POC 43 35 - 45 mmHg [facility] pO2, Art POC 228(H) 83 - 108 mmHg [facility] Na, POC 144 135 - 145 mmol/L [facility] K POC 4.3 3.3 - 4.9 mmol/L [facility] Comment: Interpretive Data Unable to assess hemolysis. ??Invitro hemolysis causes falsely elevated potassium. Current Interpretive Data was last revised on 2019. Cl, POC 111(H) 97 - 110 mmol/L [facility] Ionized Ca, POC 4.04(L) 4.50 - 5.10 mg/dL [facility] Glucose, POC 169 70 - 199 mg/dL [facility] Lactate, POC 4.7(C) 0.7 - 2.2 mmol/L [facility] SO2 (miguelangel) arterial 100(H) 90 - 95 % [facility] Base excess, POC -5.1 mmol/L [facility] HCO3, Art POC 21 20 - 30 mmol/L [facility] Hct, POC 23.0(L) 41.4 - 51.6 % [facility] O2 Sat, Art POC (Calc) 100 % [facility] Total Hb, POC 7.6(L) 13.8 - 17.2 g/dL [facility] Blood specimen (specimen) 06/23/2020 3:02 PM MARK[employer] GARDEN WORKER 06/23/2020 3:02 PM MARK[employer] GARDEN WORKER Felton Chiu MD LAB POCT ORDERABLES - DEVICE Fin al Result Performing Organization Address City/[facility]/ZIP Co de Phone Number [facility] [place] [address] * Transfuse plasma (06/23/2020 2:49 PM MARKET GARDEN WORKER) Blood specimen (specimen) us Barb Washington MD BLOOD TRANSFUSION ORDER DAJA Final Result Performing Organization Address [facility] Co de Phone Number [facility] [place] [address] * Transfuse plasma (06/23/2020 2:45 PM MARKET GARDEN WORKER) Blood specimen (specimen) Barb Washington MD BLOOD TRANSFUSION ORDER DAJA Final Result Performing Organization Address [facility] [place] [address] * Prepare plasma: 2 Units (06/23/2020 2:26 PM MARKET GARDEN WORKER) [facility] Product code [id number] [facility] Unit Number [id number]- N [facility] Product Blood Type APOS [facility] Dispense Status PRESUMED TRANSFUSED [facility] Product code [id number] [facility] Unit Number [id number]- D [facility] Product Blood Type APOS [facility] Dispense Status PRESUMED TRANSFUSED [facility] Blood specimen (specimen) (Blood, Venous) 06/23/2020 2:26 PM MARKET GARDEN WORKER 06/23/2020 2:26 PM MARKET GARDEN WORKER Narrative [facility] - 06/24/2020 12:48 AM MARKET GARDEN WORKER Date required:-20200623 FFP # of Units:-2-Units Reasons:-Active major bleeding with coagulopathy} us Barb Lanza Washington MD BLOOD BANK PRODUCT MAURO LOCK Final Result Performing Organization Address [facility] [place] [address] * (ABNORMAL) POCT heparin/ACT CPB (06/23/2020 1:49 PM MARKET GARDEN WORKER) Heparin POC 0.0 units/mL [facility] ACT, CPB 100(L) 112 - 174 sec [facility] Blood specimen (specimen) 06/23/2020 1:49 PM MARKET GARDEN WORKER 06/23/2020 1:49 PM MARKET GARDEN WORKER Felton Chiu MD LAB POCT ORDERABLES - DEVICE Fin al Result Performing Organization Address [facility] [place] [address] * POCT Partial thromboplastin time (PTT) (06/23/2020 1:48 PM MARKET GARDEN WORKER) [facility] Signature APTT, POC 32.1 29.3 - 45.4 sec [facility] Blood specimen (specimen) 06/23/2020 1:48 PM MARK[employer] GARDEN WORKER 06/23/2020 1:48 PM MARKET GARDEN WORKER Felton Chiu MD LAB POCT ORDERABLES - DEVICE Fin al Result Performing Organization Address [facility] [place] [address] * (ABNORMAL) POCT platelet count and hematocrit (06/23/2020 1:48 PM MARKET GARDEN WORKER) Hematocrit POC 27.9(L) 40.7 - 50.3 % [facility] Platelet POC 144 140 - 440 K/cumm [facility] Blood specimen (specimen) 06/23/2020 1:48 PM MARKET GARDEN WORKER 06/23/2020 1:48 PM MARKET GARDEN WORKER Felton Chiu MD LAB POCT ORDERABLES - DEVICE Fin al Result Performing Organization Address City/[facility] Co de Phone Number [facility] [place] [address] * (ABNORMAL) POCT prothrombin time (06/23/2020 1:47 PM MARKET GARDEN WORKER) [facility] PT, POC 29.6(H) 12.1 - 17.0 sec [facility] INR, POC 2.3(H) 1.0 - 1.3 [facility] Blood specimen (specimen) 06/23/2020 1:47 PM MARKET GARDEN WORKER 06/23/2020 1:47 PM MARKET GARDEN WORKER Felton Chiu MD LAB POCT ORDERABLES - DEVICE Fin al Result Performing Organization Address [facility] de Phone Number [facility] Department [place] [address] * (ABNORMAL) POC Blood Gas and Chemistries, Arterial - (06/23/2020 1:44 PM MARKET GARDEN WORKER) [facility] pH, Art POC 7.37 7.35 - 7.45 [facility] pCO2, Art POC 37 35 - 45 mmHg [facility] pO2, Art POC 268(H) 83 - 108 mmHg [facility] Na, POC 141 135 - 145 mmol/L [facility] K POC 4.7 3.3 - 4.9 mmol/L [facility] Comment: Interpretive Data Unable to assess hemolysis. ??Invitro hemolysis causes falsely elevated potassium. Current Interpretive Data was last revised on 2019. Cl, POC 114(H) 97 - 110 mmol/L [facility] Ionized Ca, POC 5.35(H) 4.50 - 5.10 mg/dL [facility] Glucose, POC 170 70 - 199 mg/dL [facility] Lactate, POC 4.0(C) 0.7 - 2.2 mmol/L [facility] SO2 (miguelangel) arterial 100(H) 90 - 95 % [facility] Base excess, POC -3.4 mmol/L [facility] HCO3, Art POC 21 20 - 30 mmol/L [facility] Hct, POC 29.0(L) 41.4 - 51.6 % [facility] O2 Sat, Art POC (Calc) 100 % [facility] Total Hb, POC 9.8(L) 13.8 - 17.2 g/dL [facility] Blood specimen (specimen) 06/23/2020 1:44 PM [employer] GARDEN WORKER 06/23/2020 1:44 PM [employer] GARDEN WORKER Felton Chiu MD LAB POCT ORDERABLES - DEVICE Fin al Result Performing Organization Address [facility]/ZIP Co de Phone Number [facility] [place] [address] * Transfuse platelets (06/23/2020 1:43 PM MARKET GARDEN WORKER) Blood specimen (specimen) us Bashir Meadows MD BLOOD TRANSFUSION ORDERAB LES Final Result Performing Organization Address [facility] Co de Phone Number [facility] Department [place] [address] * (ABNORMAL) POCT heparin/ACT CPB (06/23/2020 12:52 PM MARKET GARDEN WORKER) Heparin POC >4.7 units/mL [facility] ACT, CPB 773(H) 112 - 174 sec [facility] Blood specimen (specimen) 06/23/2020 12:52 PM MARKET GARDEN WORKER 06/23/2020 12:52 PM MARKET GARDEN WORKER Felton Chiu MD LAB POCT ORDERABLES - DEVICE Fin al Result Performing Organization Address [facility] Co de Phone Number [facility] [place] [address] * (ABNORMAL) POC Blood Gas and Chemistries, Arterial - (06/23/2020 12:33 PM MARKET GARDEN WORKER) pH, Art POC 7.36 7.35 - 7.45 [facility] pCO2, Art POC 41 35 - 45 mmHg [facility] pO2, Art POC 364(H) 83 - 108 mmHg [facility] Na, POC 140 135 - 145 mmol/L [facility] K POC 5.4(H) 3.3 - 4.9 mmol/L [facility] Comment: Interpretive Data Unable to assess hemolysis. ??Invitro hemolysis causes falsely elevated potassium. Current Interpretive Data was last revised on 2019. Cl, POC 111(H) 97 - 110 mmol/L [facility] Ionized Ca, POC 4.42(L) 4.50 - 5.10 mg/dL [facility] Glucose, POC 183 70 - 199 mg/dL [facility] Lactate, POC 2.1 0.7 - 2.2 mmol/L [facility] SO2 (miguelangel) arterial 99(H) 90 - 95 % [facility] Base excess, POC -2.2 mmol/L [facility] HCO3, Art POC 23 20 - 30 mmol/L [facility] Hct, POC 29.0(L) 41.4 - 51.6 % [facility] O[facility] Sat, Art POC (Calc) 100 % [facility] Total Hb, POC 9.8(L) 13.8 - 17.2 g/dL [facility] Blood specimen (specimen) 06/23/2020 12:33 PM MARK[employer] GARDEN WORKER 06/23/2020 12:33 PM MARK[employer] GARDEN WORKER us Felton Chiu MD LAB POCT ORDERABLES - DEVICE Fin al Result [facility] One [facility] Department [place] [address] * (ABNORMAL) Extrensic thromboelastometry (EXTEM) (06/23/2020 12:12 PM MARKET GARDEN WORKER) Clotting Time-Extrinsic 73(H) 42 - 60 sec [facility] Clot Formation Time-Extrinsic 90 45 - 131 sec [facility] Angle-Extrinsic 74 65 - 83 Degree [facility] Max Clot Firmness-Extrin sic 64 53 - 75 mm [facility] Lysis 30-Extrinsic 100 85 - 100 % [facility] Blood specimen (specimen) 06/23/2020 12:12 PM [employer] GARDEN WORKER 06/23/2020 1:51 PM MARK[employer] GARDEN WORKER us Felton Chiu MD LAB BLOOD ORDERABLES Final Resul t Performing Organization Address [facility] Co de Phone Number [facility] [place] [address] * Thrombocyte inhibited fibrinogen (FIBTEM) (06/23/2020 12:12 PM MARKET GARDEN WORKER) Pathologist [facility] Maximum Clot Firm-Fibrinogen 18 9 - 29 mm [facility] Blood specimen (specimen) 06/23/2020 12:12 PM MARK[employer] GARDEN WORKER 06/23/2020 1:51 PM MARK[employer] GARDEN WORKER us Felton Chiu MD LAB BLOOD ORDERABLES Final Resul t Performing Organization Address [facility] de Phone Number [facility] [place] [address] * POCT heparin/ACT CPB (06/23/2020 11:54 AM MARKET GARDEN WORKER) Pathologist [facility] Heparin POC >4.7 units/mL [facility] Blood specimen (specimen) 06/23/2020 11:54 AM MARK[employer] GARDEN WORKER 06/23/2020 11:54 AM [employer] GARDEN WORKER Felton Chiu MD LAB POCT ORDERABLES - DEVICE Fin al Result Performing Organization Address [facility] [place] [address] * (ABNORMAL) POC Blood Gas and Chemistries, Arterial - (06/23/2020 11:35 AM MARKET GARDEN WORKER) pH, Art POC 7.36 7.35 - 7.45 [facility] pCO2, Art POC 40 35 - 45 mmHg [facility] pO2, Art POC 387(H) 83 - 108 mmHg [facility] Na, POC 140 135 - 145 mmol/L [facility] K POC 5.5(H) 3.3 - 4.9 mmol/L [facility] Comment: Interpretive Data Unable to assess hemolysis. ??Invitro hemolysis causes falsely elevated potassium. Current Interpretive Data was last revised on 2019. Cl, POC 110 97 - 110 mmol/L [facility] Ionized Ca, POC 4.47(L) 4.50 - 5.10 mg/dL [facility] Glucose, POC 205(H) 70 - 199 mg/dL [facility] Lactate, POC 2.2 0.7 - 2.2 mmol/L [facility] SO2 (miguelangel) arterial 100(H) 90 - 95 % [facility] Base excess, POC -2.7 mmol/L [facility] HCO3, Art POC 23 20 - 30 mmol/L [facility] Hct, POC 33.0(L) 41.4 - 51.6 % [facility] O2 Sat, Art POC (Calc) 100 % [facility] Total Hb, POC 11.0(L) 13.8 - 17.2 g/dL [facility] Blood specimen (specimen) 06/23/2020 11:35 AM [employer] GARD[employer] WORKER 06/23/2020 11:35 AM [employer] GARDEN WORKER us Felton Chiu MD LAB POCT ORDERABLES - DEVICE Fin al Result [facility] One [facility] [place] [address] * Prepare platelets: 2 Units (06/23/2020 11:22 AM MARKET GARDEN WORKER) [facility] Product code [id number] [facility] Unit Number [id number]- S [facility] Product Blood Type APOS [facility] Dispense Status PRESUMED TRANSFUSED [facility] Product code [id number] [facility] Unit Number [id number]- G [facility] Product Blood Type APOS [facility] Dispense Status RETURNED [facility] Blood specimen (specimen) (Blood, Venous) 06/23/2020 11:22 AM [employer] GARD[employer] WORKER 06/23/2020 11:23 AM MARK[employer] GARDEN WORKER Narrative [facility] - 06/24/2020 12:48 AM MARK[employer] GARDEN WORKER Are special requirements needed? (all products are leukoreduced)->No Date required:-20200623 PLT # of Units:-2-Units Reasons:-Major active bleeding} us Bashir Meadows MD BLOOD BANK PRODUCT ORDERA BLES Final Result Performing Organization Address [facility] de Phone Number [facility] [place] [address] * (ABNORMAL) POCT heparin/ACT CPB (06/23/2020 11:00 AM MARKET GARDEN WORKER) Heparin POC 2.7 units/mL [facility] ACT, CPB 455(H) 112 - 174 sec [facility] Blood specimen (specimen) 06/23/2020 11:00 AM [employer] GARD[employer] WORKER 06/23/2020 11:00 AM [employer] GARDEN WORKER Felton Chiu MD LAB POCT ORDERABLES - DEVICE Fin al Result Performing Organization Address [facility] de Phone Number [facility] [place] [address] * (ABNORMAL) POCT heparin/ACT CPB (06/23/2020 9:30 AM MARKET GARDEN WORKER) Heparin POC 4.1 units/mL [facility] ACT, CPB 503(H) 112 - 174 sec [facility] Blood specimen (specimen) 06/23/2020 9:30 AM [employer] GARDEN WORKER 06/23/2020 9:30 AM MARK[employer] GARDEN WORKER Felton Chiu MD LAB POCT ORDERABLES - DEVICE Fin al Result Performing Organization Address [facility] Co de Phone Number [facility] [place] [address] * POCT heparin dose response, CPB (06/23/2020 7:19 AM MARKET GARDEN WORKER) Baseline ACT POC 141 112 - 174 sec [facility] Heparin dose response slope POC 92 60 - 195 [facility] Projected Heparin Concentration POC 3.7 units/mL [facility] Blood specimen (specimen) 06/23/2020 7:19 AM [employer] GARD[employer] WORKER 06/23/2020 7:19 AM [employer] GARDEN WORKER us Felton Chiu MD LAB POCT ORDERABLES - DEVICE Fin al Result Performing Organization Address [facility] Co de Phone Number [facility] [place] [address] * (ABNORMAL) POC Blood Gas and Chemistries, Arterial - (06/23/2020 7:15 AM MARK[employer] GARDEN WORKER) pH, Art POC 7.43 7.35 - 7.45 [facility] pCO2, Art POC 44 35 - 45 mmHg [facility] pO2, Art POC 430(H) 83 - 108 mmHg [facility] Na, POC 139 135 - 145 mmol/L [facility] K POC 4.7 3.3 - 4.9 mmol/L [facility] Comment: Interpretive Data Unable to assess hemolysis. ??Invitro hemolysis causes falsely elevated potassium. Current Interpretive Data was last revised on 2019. Cl, POC 107 97 - 110 mmol/L [facility] Ionized Ca, POC 4.92 4.50 - 5.10 mg/dL [facility] Glucose, POC 137 70 - 199 mg/dL [facility] Lactate, POC 1.7 0.7 - 2.2 mmol/L [facility] SO2 (miguelangel) arterial 100(H) 90 - 95 % [facility] Base excess, POC 4.2 mmol/L [facility] HCO3, Art POC 29 20 - 30 mmol/L [facility] Hct, POC 45.0 41.4 - 51.6 % [facility] O2 Sat, Art POC (Calc) 100 % [facility] Total Hb, POC 14.9 13.8 - 17.2 g/dL [facility] Blood specimen (specimen) 06/23/2020 7:15 AM [employer] GARD[employer] WORKER 06/23/2020 7:15 AM [employer] GARD[employer] WORKER us Felton Chiu MD LAB POCT ORDERABLES - DEVICE Fin al Result Performing Organization Address City/[facility]/ZIP Co de Phone Number [facility] One [facility] [place] [address] * SANDY Add-On for OR (06/23/2020 7:00 AM MARK[employer] GARDEN WORKER) Narrative [facility] PROSOLV_CARDIOREPORT - 06/23/2020 7:00 AM [employer] WORKER Procedure Auto Finalized by Rule: BW CV SANDY ADD-ON FOR OR Please see the Anesthesiologist's Procedure Note for the results. us Bashir Meadows MD CV ECHO PROCEDURES Final Result Performing Organization Address [facility] Co de Phone Number [facility] PROSOLV_CARDIOREPORT * Prepare RBC: 6 Units (06/23/2020 6:06 AM MARKET GARDEN WORKER) Product code [id number] [facility] Unit Number [id number] [facility] Product Blood Type ANEG [facility] Dispense Status RETURNED [facility] Product code F7011I79 [facility] Unit Number [id number] [facility] Product Blood Type ANEG [facility] Dispense Status RETURNED [facility] Product code B4929V16 [facility] Unit Number [id number] [facility] Product Blood Type ANEG [facility] Dispense Status PRESUMED TRANSFUSED [facility] Product code U0852X66 [facility] Unit Number [id number] [facility] Product Blood Type ANEG [facility] Dispense Status RETURNED [facility] Product code D1931X61 [facility] Unit Number [id number] [facility] Product Blood Type [facility]EG [facility] Dispense Status PRESUMED TRANSFUSED [facility] Product code X3728I85 [facility] Unit Number [id number] [facility] Product Blood Type ANEG [facility] Dispense Status RETURNED [facility] Blood specimen (specimen) 06/23/2020 6:06 AM MARKET GARDEN WORKER 06/23/2020 6:05 AM MARKET GARDEN WORKER Narrative [facility] - 06/24/2020 7:25 AM MARKET GARDEN WORKER Are special requirements needed? (all products are leukoreduced)->No Date required:-[id number] LRRBC # of [id number] Reasons:-Intra-op transfusion} Bashir Meadows MD BLOOD BANK PRODUCT ORDERA BLES Final Result [facility] One [facility] Department [place] [address] documented in this encounter Visit Diagnoses Diagnosis Severe aortic stenosis- Primary Aortic valve disorders Coronary artery disease without angina pectoris, unspecified vessel or lesion type, unspecified whether samish or transplanted heart Aortic valve stenosis, etiology of cardiac valve disease unspecified documented in this encounter Administered Medications Inactive Administered Medications - up to 3 most recent administrations Medication Order MAR Action Action Date Dose Rate Site acetaminophen (TYLENOL) tablet 650 mg 650 mg, oral, Every 4 hours PRN, 1st line for pain, Starting on Sat06/27/20 at 0745 Given 06/27/2020 8:18 PM MARKET GARD[employer] WORKER 650 mg Given 06/27/2020 12:21 PM MARKET GARD[employer] WORKER 650 mg Given 06/27/2020 8:19 AM MARKET GARD[employer] WORKER 650 mg amiodarone (PACERONE) tablet 400 mg 400 mg, oral, Daily, First dose (after last modification) on Sat06/28/20 at 0700, Indications: arrythmiaIndications:arrythmia Given 06/28/2020 6:[address] 400 mg aspirin enteric coated tablet 81 mg 81 mg, oral, Daily, First dose on Sat06/24/20 at 0900, Do not crush, chew, cut, dissolve, open or otherwise manipulate tablet/capsule. Given 06/28/2020 9:46 AM MARKET GARDEN WORKER 81 mg Given 06/27/2020 8:15 AM MARKET GARDEN WORKER 81 mg Given 06/26/2020 8:24 AM MARKET GARD[employer] WORKER 81 mg atorvastatin (LIPITOR) tablet 80 mg 80 mg, oral, Daily, First dose on Sat06/24/20 at 0900 Given 06/27/2020 8:17 PM MARKET GARD[employer] WORKER 80 mg Given 06/26/2020 8:51 PM MARKET GARDEN WORKER 80 mg Given 06/24/2020 8:43 AM MARKET GARD[employer] WORKER 80 mg bisacodyL (DULCOLAX) suppository 10 mg 10 mg, rectal, Daily PRN, constipation, Starting on Sat06/27/20 at 1145, Indications: constipationIndications:constipation Given 06/27/2020 6:24 PM MARKET GARDEN WORKER 10 mg Given 06/27/2020 6:21 PM MARKET GARD[employer] WORKER 10 mg docusate sodium (COLACE) capsule 100 mg 100 mg, oral, 2 times daily, First dose on Sat06/23/20 at 2100, If able to swallow medications. Hold for diarrhea. , Indications: constipationIndications:constipation Given 06/28/2020 9:45 AM MARKET GARDEN WORKER 100 mg Given 06/27/2020 7:29 PM MARKET GARDEN WORKER 100 mg Given 06/27/2020 8:16 AM MARKET GARD[employer] WORKER 100 mg ferrous sulfate tablet 325 mg 325 mg (65 mg of elemental iron), oral, 2 times daily with meals (bkfst, dinner), First dose on Sat06/25/20 at 1800, Indications: Iron Deficiency AnemiaIndications:Iron Deficiency Anemia Given 06/28/2020 9:49 AM MARKET GARD[employer] WORKER 325 mg Given 06/27/2020 5:10 PM MARKET GARDEN WORKER 325 mg Given 06/27/2020 8:17 AM MARKET GARD[employer] WORKER 325 mg furosemide (LASIX) tablet 40 mg 40 mg, oral, Daily, First dose (after last modification) on Sat06/28/20 at 0900 Given 06/28/2020 9:49 AM MARKET GARD[employer] WORKER 40 mg latanoprost (XALATAN) 0.005 % ophthalmic solution 1 drop 1 drop, each eye, Nightly, First dose on Sat06/24/20 at 2100 Given 06/27/2020 8:07 PM MARKET GARD[employer] WORKER 1 drop Given 06/26/2020 8:53 PM MARKET GARD[employer] WORKER 1 drop Given 06/25/2020 9:12 PM MARKET GARDEN WORKER 1 drop metoprolol tartrate (LOPRESSOR) immediate release tablet 12.5 mg 12.5 mg, oral, 2 times daily, First dose (after last modification) on 06/27/20 at 2100 Given 06/28/2020 6:15 AM MARKET GARDEN WORKER 12.5 mg Given 06/27/2020 8:18 PM MARKET GARD[employer] WORKER 12.5 mg montelukast (SINGULAIR) tablet 10 mg 10 mg, oral, Nightly, First dose on [place] 06/26/20 at 2100 Given 06/27/2020 8:17 PM MARKET GARD[employer] WORKER 10 mg Given 06/26/2020 8:51 PM MARKET GARD[employer] WORKER 10 mg ondansetron (ZOFRAN) injection 4 mg 4 mg, intravenous, Administer over 2 Minutes, Every 6 hours PRN, nausea, vomiting, Starting on [place] 06/23/20 at 1547, Administer no sooner than 6 hours after last dose. , Indications: Nausea and VomitingIndications:Nausea and Vomiting Given 06/25/2020 7:20 AM MARKET GARD[employer] WORKER 4 mg oxyCODONE (ROXICODONE) tablet 5 mg 5 mg, oral, Every 4 hours PRN, 2nd line for pain, Starting on Sat06/27/20 at 0736, Indications: PainIndications:Pain Given 06/27/2020 12:22 PM MARKET GARD[employer] WORKER 5 mg Given 06/27/2020 8:28 AM MARK[employer] GARD[employer] WORKER [address] (PROTONIX) extended release tablet 40 mg 40 mg, oral, 2 times daily, First dose on [facility] 06/25/20 at 0100, Do not crush, chew, cut, dissolve, open or otherwise manipulate tablet/capsule., Indications: Treatment of Non-Bleeding Gastric DisorderIndications:Treatment of Non-Bleeding Gastric Disorder Given 06/28/2020 9:49 AM MARKET GARDEN WORKER 40 mg Given 06/27/2020 8:17 PM MARKET GARDEN WORKER 40 mg Given 06/27/2020 8:16 AM MARKET GARD[employer] WORKER 40 mg papaverine injection As needed, Starting on [place] 06/23/20 at 0907, Intra-Op Given 06/23/2020 9:07 AM MARKET GARD[employer] WORKER 240 mg polyethylene glycol (MIRALAX) packet 17 g 17 g, oral, Daily, First dose on Sat06/27/20 at 2000, Indications: constipationIndications:constipation Given 06/28/2020 9:45 AM MARKET GARD[employer] WORKER 17 g Given 06/27/2020 7:29 PM MARKET GARD[employer] WORKER 17 g potassium chloride ER (KLOR-CON) extended release tablet 20 mEq 20 mEq, oral, Daily, First dose (after last modification) on Sat06/28/20 at 0900, Do not crush, chew, cut, dissolve, open or otherwise manipulate tablet/capsule. Given 06/28/2020 9:46 AM MARK[employer] GARD[employer] WORKER 20 mEq ramelteon (ROZEREM) tablet 8 mg 8 mg, oral, Nightly PRN, sleep, Starting on Sat06/24/20 at 1951, Indications: Sleep-Onset InsomniaIndications:Sleep-Onset Insomnia Given 06/27/2020 8:18 PM MARKET GARDEN WORKER 8 m g Given 06/26/2020 8:51 PM MARK[employer] GARD[employer] WORKER 8 mg Given 06/25/2020 9:20 PM MARKET GARD[employer] WORKER 8 mg senna (SENOKOT) tablet 2 tablet 2 tablet, oral, 2 times daily, First dose (after last modification) on Sat06/27/20 at 2100, If able to swallow medications. Hold for diarrhea., Indications: constipationIndications:constipation Given 06/28/2020 9:46 AM MARKET GARD[employer] WORKER 2 table ts Given 06/27/2020 7:29 PM MARKET GARD[employer] WORKER 2 tablets sodium chloride 0.9% irrigation As needed, Starting on Sat06/23/20 at 0907, Intra-Op Given 06/23/2020 12:06 PM [employer]ET G[employer] WORKER 3,000 mL Surgical Site Given 06/23/2020 9:07 AM MARKET GARD[employer] WORKER 3,000 mL [place] rgical Site vancomycin (VANCOCIN) solution As needed, Starting on Sat06/23/20 at 0907, Intra-Op Given 06/23/2020 9:07 AM MARKET GARD[employer] WORKER 1,000 mg Surgical Site Given 06/23/2020 9:02 AM MARK[employer] GARD[employer] WORKER 4,000 mg Ch est documented in this encounter Discontinued Medications Medication [...] Recently Administered Medications Times are shown in [employer] WORK[employer]. Scheduled Medication Order 06/26/2020 06/27/2020 06/28/2020 acetaminophen [...] RN) 0816 (Given - Provider: Brisa Bahena RN)1710 (Given - Provider: Evelina Serrato)2017 (Given - Provider: Hair Wallace RN) amiodarone [...] Evelina Serrato) 0815 (Given - Provider: Brisa Bahena, TREV) 0946 (Given - Provider: Ruiz Holder) atorvastatin (LIPITOR) tablet 80 mg 80 mg, oral, Daily, First dose on Sat06/24/20 at 0900 2050 (Given - Provider: Hair Wallace, TREV) 2016 (Given - Provider: Hair Wallace, RN) docusate sodium (COLACE) capsule 100 mg(Linked Group 1) 100 mg, oral, 2 times daily, First dose on [place] 06/23/20 at 2100, If able to swallow medications. Hold for diarrhea. , Indications: constipation 08 (Given - Provider: Evelina eSrrato)2050 (Given - Provider: Hair Wallace RN) 08 (Given - Provider: Brisa Bahena, TREV)192 (Given - Provider: Hair Wallace, TREV) 0945 (Given - Provider: Ruiz Holder) ferrous sulfate tablet 325 mg 325 mg (65 mg of elemental iron), oral, 2 times daily with meals (bkfst, dinner), First dose on 06/25/20 at 1800, Indications: Iron Deficiency Anemia 0826 (Given - Provider: Evelina Serrato)1756 (Given - Provider: Evelina Serrato) 0817 (Given - Provider: Brisa Bahena, TREV)1710 (Given - Provider: Evelina Serrato) 0949 (Given - Provider: Ruiz Holder)1729 (Not Given - Provider: Ruiz Holder - Reason: Patient not available) furosemide (LASIX) tablet 40 mg (CANCELED) 40 mg, oral, Daily, First dose on 06/25/20 at 1145 0826 (Given - Provider: Evelina [...] Serrato)2051 (Given - Provider: Hair Wallace RN) latanoprost (XALATAN) 0.005 % ophthalmic solution 1 drop 1 drop, each eye, Nightly, First dose on Sat06/24/20 at 2100 2052 (Given - Provider: Hair Wallace RN) 2006 (Given - Provider: Hair Wallace RN) metoprolol tartrate (LOPRESSOR) immediate release tablet 12.5 mg 12.5 mg, oral, 2 times daily, First dose (after last modification) on Sat06/27/20 at 2100 2018 (Given - Provider: Hair Wallace RN) 0615 (Given - Provider: Hair Wallace RN)0900 (Hold - Provider: Hair Wallace RN - Reason: Other - Comment: given early) METOPROLOL TARTRATE CAPSULE 6.25 MG capsule 6.25 mg (CANCELED) 6.25 mg, oral, 2 times daily, First dose on Sat06/25/20 at 0500 0707 (Given - Provider: Brisa Bahena RN - Comment: Afib)2050 (Given - Provider: Hair Wallace RN) 0815 (Given - Provider: Brisa Bahena RN) METOPROLOL TARTRATE CAPSULE 6.25 MG capsule 6.25 mg (COMPLETED) 6.25 mg, oral, Once, On Sat06/27/20 at 1230, For 1 dose 1221 (Given - Provider: Evelina Serrato) mineral oil (FLEET MINERAL OIL) enema 1 [...] RN) 0816 (Given - Provider: Brisa Bahena RN)2016 (Given - Provider: Hair Wallace RN) 0949 (Given - Provider: Ruiz Holder) polyethylene glycol (MIRALAX) packet 17 g 17 g, oral, Daily, First dose on Sat06/27/20 at 2000, Indications: constipation 1929 (Given - Provider: Hair Wallace RN) 0945 [...] 2050 (Given - Provider: Hair Wallace RN) 816 (Given - Provider: Brisa Bahena, RN)2017 (Given [...] swallow medications. Hold for diarrhea., Indications: constipation 824 (Given - Provider: Evelina Serrato)2050 (Given - [...] Brisa Bahena RN)1221 (Given - Provider: Evelina Serrato)2018 (Given - Provider: Hair Wallace RN) bisacodyL (DULCOLAX) suppository 10 mg 10 mg, rectal, Daily PRN, constipation, Starting on Sat06/27/20 at 1145, Indications: constipation 1412 (Not Given - Provider: Evelina Serrato - Reason: Patient/family refused - Comment: Pt requested to let him try to go)182 (Given - Provider: Evelina Serrato)1824 (Given - Provider: Evelina Serrato) ondansetron (ZOFRAN) [...] tube, 2 times daily, First dose on Sat06/23/20 at 2100, If taking meds per tube. [...] Ordered Date amiodarone (PACERONE) tablet 400 mg 3 06/2806/25/2020 furosemide (LASIX) tablet 40 mg 3 1 06/25/2020 mineral oil (FLEET MINERAL O [place]) enema 1 enema 2 06/28/2020 06/27/2020 potassium chloride ER (KLOR- CON) extended release tablet 20 mEq 4 06/28/2020 06/25/2020 acetaminophen (TYLENOL) tablet 650 mg 1 04/2020 bisacodyL (DULCOLAX) suppository 10 mg 1 heparin in 0.45% sodium chlo ride 25,000 units/250 mL (100 units/mL) infusion (premix) 1 06/27/2020 metoprolol tartrate (LOPRESS OR) immediate release tablet 12.5 mg 1 06/27/2020 METOPROLOL TARTRATE CAPSULE 6.25 MG capsule 6.25 mg 2 06/27/2020 06/25/2020 oxyCODONE (ROXICODONE) tablet 5 mg 2 202006/23/2020 polyethylene glycol (MIRALAX) packet 17 g 1 06/27/2020 senna (SENOKOT) tablet 2 tablet 1 montelukast (SINGULAIR) tablet 10 mg 1 05/31 albumin 5 % bottle 250 mL 1 06/25/2020 amiodarone (NEXTERONE) 150 m g/100 mL (1.5 mg/mL) in dextrose (premix) 150 mg 3 06/25/2020 ferrous sulfate tablet 325 mg 1 06/25/[address] (PROTONIX) e xtended release tablet 40 mg 1 06/25/2020 sodium chloride 0.9% IVPB 0-250 mL 1 2020 acetaminophen (TYLENOL) tablet 1,000 mg 2 0 06/24/2020 06/23/2020 aspirin enteric coated tablet 81 mg 1 06/24 atorvastatin (LIPITOR) tablet 80 mg 1 06/24 calcium gluconate 1 g/50 mL in sodium chloride (premix) solution 1 g 1 06/24/2020 dextrose (D10W) 10% bolus 250 mL 06/24/19 dextrose (GLUTOSE) 40 % gel 15 g 06/24/19 glucagon injection 1 mg 1 06/24/2020 heparin 5,000 unit/mL inject ion 5,000 Units 1 06/24/2020 insulin lispro (HumaLOG, ADM ELOG) injection 1-3 Units 1 06/24/2020 insulin lispro (HumaLOG, ADM ELOG) injection 1-5 Units 1 06/24/2020 Lactated Ringer's (LR) bolus 1,000 mL latanoprost (XALATAN) 0.005 % ophthalmic solution 1 drop 1 06/24/2020 ramelteon (ROZEREM) tablet 8 mg 1 aspirin suppository 300 mg 1 06/23/2020 ceFAZolin (ANCEF) 2,000 mg/2 0 mL in sterile water (premix) 2,000 mg 2 06/23/2020 docusate (COLACE) 10 mg/mL o ral liquid 100 mg 1 06/23/2020 docusate sodium (COLACE) capsule 100 mg 1 0 06/23/2020 EPINEPHrine in 0.9% sodium c hloride 2 mg/100 mL (20 mcg/mL) infusion (premix) 3 06/23/2020 famotidine (PEPCID) 20 mg/50 mL in sodium chloride 0.9% (premix) 20 mg 1 06/23/2020 fentaNYL (SUBLIMAZE) preserv ative free injection 100 mcg 1 06/23/2020 fentaNYL (SUBLIMAZE) preserv ative free injection 50 mcg 1 06/23/2020 HYDROmorphone (DILAUDID) injection 0.2 mg 1 06/23/2020 insulin regular in 0.9% sodi um chloride 100 units/100 mL infusion (premix) 1 06/23/2020 Lactated Ringer's (LR) bolus 500 mL 1 06/23 Lactated Ringer's (LR) infusion 2 niCARdipine in 0.9% sodium c hloride (CARDENE) 25 mg/50 mL (0.5 mg/mL) infusion (premix) 1 06/23/2020 norepinephrine in 0.9% sodiu m chloride (LEVOPHED) 8,000 mcg/250 mL (32 mcg/mL) infusion (premix) 1 06/23/2020 ondansetron (ZOFRAN) injection 4 mg 1 06/23 potassium chloride 20 mEq/50 mL in sterile water (premix) 20 mEq 1 06/23/2020 propofol (DIPRIVAN) 10 mg/mL infusion 1 senna (SENOKOT) tablet 1 tablet 1 senna 1.76 mg/mL syrup 8.8 mg 1 06/23/2020 sodium chloride 0.9% flush 0.5-20 mL 1 05/31 sodium chloride 0.9% flush 10-30 mL 1 06/23 sodium chloride 0.9% solution 1,000 mL 2 vancomycin 1,000 mg/50 mL in sterile water (premix) 1,000 mg 1 06/23/2020 vancomycin 1500 mg/515 mL in [...] 06/23/2020 documented in this encounter Care Teams Head Of Global Strategic Partnerships Relationship Specialty Start Date End Date Martin López MD [address] [facility] [address] [place] [address] PCP - General 06/27/12 Khalif Ca MD [address] [facility] [address] [place] [address] Referring Physician Cardiology 04/08/19 documented as of this encounter
--- OUTSIDE RECORDS SUMMARY | 2024-04-20 00:17 | XMS_ITS | Encounter Summary ---
Author Organization [facility] Healthcare Address [address] [place] [address] Care Team Providers Care Belt Sewer Name Role Phone Martin López MD Primary Care Provider Khalif Ca MD Unavailable [phone] Encounter Details Date Type Department Care Team (Late st Contact Info) Description 06/20/2020 4:20 PM MANAGER MATERIALS MANAGEMENT Lab [address] [address] Pre-procedure lab exam Social History Tobacco Use Types Packs/Day Years Used Date Smoking Tobacco: Never Smokeless Tobacco: Never Alcohol Use Standard Drinks/Week Comments Yes 0 (1 standard drink = 0.6 oz pur e alcohol) rare Sex and Gender Information Value Date Recorded Sex Assigned at Not on file Legal Sex Male 9:13 PM MANAGER MATERIALS MANAGEMENT Gender Identity Male 07/25/2023 3:40 PM CDT Sexual Orientation Straight 10/28/2019 9: 50 AM CDT documented as of this encounter Plan of Treatment Not on file documented as of this encounter Procedures Procedure Name Priority Date/Time Associated Diagnosis Comments COVID-19 CORONAVIRUS RNA Routine 06/20/2020 2:09 PM MANAGER MATERIALS MANAGEMENT Pre-procedure lab exam documented in this encounter Results * COVID-19 Coronavirus RNA Nasopharyngeal (06/20/2020 2:09 PM MANAGER MATERIALS MANAGEMENT) COVID-19 RNA Not Detected [facility] Comment: Testing performed as a component of [...] and NAAT . ??Testing performed by the [facility] Molecular Infectious Disease [facility]. The Novel Coronavirus Assay (COVID-19) Real Time RT-PCR assay [...] June 02, 2020. First COVID-19 test? Unknown [facility] Comment:Testing performed by : [facility], [address] [place] [address], [phone] Employeed in healthcare? No [facility] Comment:Testing performed by : [facility], [address] [place] [address], [phone] status? No [facility] Comment:Testing performed by : [facility], [address] [place] [address], [id number] Group care resident? No [facility] Comment:Testing performed by : [facility], [address] [place] [address], [id number] Hospitalized? Unknown [facility] Comment:Testing performed by : [facility], [address] [place] [address], [id number] Is patient in ICU? Unknown [facility] Comment:Testing performed by : [facility], [address] [place] [address], [phone] Symptomatic as defined by CDC? No [facility] Comment:Testing performed by : [facility], [address] [place] [address], [id number] Nasopharyngeal 06/20/2020 2: 09 PM MANAGER MATERIALS MANAGEMENT 06/20/2020 5:56 PM MANAGER MATERIALS MANAGEMENT Narrative [facility] - 06/21/2020 6:15 AM MANAGER MATERIALS MANAGEMENT What is the reason for testing?->Screening prior to scheduled procedure or surgery Francia Worley MD LAB MICROBIOLOGY - GENERAL ORDER DAJA Final Result [facility] One [facility] Department [place] [address] documented in this encounter Visit Diagnoses Diagnosis Pre-procedure lab exam Pre-procedural laboratory examination documented in this encounter Care Teams Belt Sewer Relationship Specialty Start Date End Date Martin López MD [address] [facility] [address] [place] [address] PCP - General 06/27/12 Khalif Ca MD [address] [facility] [address] [place] [address] Referring Physician Cardiology 04/08/19 documented as of this encounter
--- OUTSIDE RECORDS SUMMARY | 2024-04-20 00:17 | XMS_ITS | Encounter Summary ---
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 Event [facility] Operating Room [address] [place] [address] Bashir Meadows MD [address] [place] [address] Jodi Cantu NP [address] [facility] [phone] [place] [address] Anesthesia Record Procedure Summary Procedure Name Responsible Anesthesiologist Anesthesia Start Time Anesthesia Stop Time CORONARY ARTERY BYPASS GRAFT WITH PUMPx3 (Chest) Bashir Meadows MD 06/23/20 0651 06/23/20 1552 Events Date Time Event Comment 06/23/2020 0532 In Preop 0651 An Start 0655 In Room 0656 An Start Data 0706 An Induction The patient was reevaluated immediately before moderate or deep sedation use and before anesthesia induction. 0708 An Intubation 0709 Perfusion Ready 0709 Start Data 0715 SANDY placed 0801 Anesthesia Ready 0826 Proc Start 0828 Incision Start 0830 Cell Saver Start 0833 Lungs Down 0834 Sternotomy 1119 CPB ON 1119 Cooling Start 1125 Aortic Clamp ON 1309 Rewarming Start 1309 Aortic Clamp OFF 1333 CPB OFF 1455 Sternum closed 1511 an stop data 1512 Cell Saver Stop 1512 Perfusion Complete 1523 Proc Fin 1525 SANDY removed 1531 an stop data 1532 Out of Room 1552 Handoff to RN I completed my handoff to the receiving nurse during which we: 1. Patient identified 2. Responsible provider identified 3. Pertinent medical history reviewed 4. Procedure type and surgical course discussed 5. Intraoperative anesthetic management and any significant issues discussed 6. Expectations and concerns for postop period discussed 7. Questions solicited from receiving nurse 8. Patient disposition at the time of handoff: ICU 1552 An Stop Meds Name Total lidocaine 1 % PF 100 mL fentaNYL 1,500 mcg propofol 300 mg propofol 210.32 mg succinylcholine 100 mg norepinephrine 32 mcg heparin 1,000 unit/ml 40,000 Units tranexamic acid 1,000 mg phenylephrine infusion (100 mcg/mL) 5.78 mg anticoagulant citrate dextrose solution A injection 1,000 mL vancomycin 1500 mg/515 mL in sodium chlo ride 0.9% (premix) 1,500 mg 1,500 mg glycopyrrolate 0.4 mg ceFAZolin (ANCEF) 2,000 mg/20 mL in ster ile water (premix) 2,000 mg 4,000 mg sodium chloride 0.9% flush 0.5-20 mL 0 m L phenylephrine 1 mg/10 mL inj (100 mcg/mL ) 608 mcg norepinephrine in 0.9% sodiu m chloride (LEVOPHED) 8,000 mcg/250 mL (32 mcg/mL) infusion (premix) 1.6 mg heparin infusion 28,883.33 Units tranexamic acid 10 mg/mL 100 mL (premix) 2,987.5 mg insulin regular in 0.9% sodi um chloride 100 units/100 mL infusion (premix) 8 Units EPINEPHrine in 0.9% sodium c hloride 2 mg/100 mL (20 mcg/mL) infusion (premix) 0.44 mg protamine 330 mg LR 0 mL Lactated Ringer's (LR) infusion 0 mL NS 0.9% 0 mL albumin human bottle 5 % 750 mL * Agents Name O2% N2O O2 Air Isoflurane Inspired Isoflurane * Blood Name Total PLATELETS - CROSSMATCHED 200 mL FFP - CROSSMATCHED 300 mL PRBC - CROSSMATCHED 500 mL Lines, Drains, and Airways Type Details Placement Removal Peripheral IV Placement Date: 05/10/20; Placement Time: 2300; Catheter Size: 20 G; Orientation: Left; Location: Antecubital; Site Prep: Chlorhexidine; Technique: Anatomical landmarks; Inserted by: acr; Insertion Attempts: 1; Removal Date: 03/05/22; Removal Reason: Removal date unknown/not present on admission 05/10/20 2300 by Kvng Bell RN 03/05/22 0000 by Cande Jacobson RN Arterial Line Placement Date: 05/13/20; Placemnt Time: 1205 (created via procedure documentation); Size: 20 G; Orientation: Right; Location: Radial; Securement: Taped, Transparent dressing; Removal Date: 03/05/22; Removal Reason: Removal date unknown/not present on admission 05/13/20 1205 by Jaimie Oliveira MD 03/05/22 0000 by Cande Jacobson RN Peripheral IV Placement Date: 06/23/20; Placement Time: 0610; Catheter Size: 18 G; Orientation: Anterior, Proximal, Right; Location: Forearm; Site Prep: Chlorhexidine; Inserted by: Medina Corral RN; Insertion Attempts: 1; Patient Tolerance: Tolerated well; Removal Date: 06/28/20; Removal Time: 1700; Removal Reason: Per order 06/23/20 0610 by Medina Corral RN 06/28/20 1700 by Ruiz Holder RN ETT Placement Date: 06/23/20; Placement Time: 07 (created via procedure documentation); Technique: Direct laryngoscopy; Type: ETT - single; Single Lumen Tube Size: 8 mm; Cuffed: Yes; Blade Size: 4; Location: Oral; Grade View: Grade I; Insertion Attempts: 1; Placement Verification: Auscultation, Capnometry; Removal Date: 06/23/20; Removal Time: 1740 06/23/20 0719 by Bashir Meadows MD 06/23/20 1740 by Sylvia Webber RRT Urethral Catheter Placement Date: 06/23/20; Placement Time: 0726; Inserted by: Hien NEAL; Type: Temperature probe; Size: 16 Fr.; Balloon Size: 10 mL; Urine Returned: Yes; Removal Date: 06/24/20; Removal Time: 1320; Removal Reason: Per order 06/23/20 0726 by Tamara Hussein RN 06/24/20 1320 by Octavia Salcido RN Introducer Placement Date: 06/23/20; Placement Time: 0802 (created via procedure documentation); Existing LDA Placed by: Yes; Site Prep Agent Dried: Yes; Size: introducer sheath; Insertion Attempts: 06/24/20; Securement: 0806/23/20 08 by Shelbi Waldrop, [employer] 06/24/20 0817 by Freddy Haynes NP PA Catheter Placement Date: 06/23/20; Placement Time: 0802 (created via procedure documentation); Site Prep: Chlorhexidine; Removal Date: 06/24/20; Removal Time: 0816 06/23/20 0802 by Shelbi Waldrop, [employer] 06/24/20 0816 by Freddy Haynes NP CVC Quadruple Lumen Placement Date: 06/23/20; Placement Time: 0804 (created via procedure documentation); Hand Hygiene: Yes; Sterile Barrier Used: Yes; Size: 9 Fr; Line Length(cm): 20; Orientation: Right; Location: Internal jugular; Placement Verification: Ultrasound; Removal Date: 06/28/20; Removal Time: 1545; Removal Reason: Per order 06/23/20 0804 by Shelbi Waldrop CRNA 06/28/20 1545 by Ruiz Holder RN RETIRED Surgical Site 06/23/20; 0908; Ch est; 03/31/24 (Retired LDA, Removed/Completed by [facility] with LDA Utility); 1213 (Retired LDA, Removed/Completed by [facility] with LDA Utility) 06/23/20 0908 by Tamara Hussein RN 03/31/24 1213 by Discharge Provider, Automatic RETIRED Surgical Site 06/23/20; 0908; Le ft; Arm; 03/31/24 (Retired LDA, Removed/Completed by [facility] with LDA Utility); 1213 (Retired LDA, Removed/Completed by [facility] with LDA Utility) 06/23/20 0908 by Tamara Hussein RN 03/31/24 1213 by Discharge Provider, Automatic Closed/Suction/Open Drain 06/23/20; 1010; No; 1; Left; Other (Comment) (arm); Bulb; 15 Fr. 06/23/20 1010 by Tamara Hussein RN 06/24/20 1317 by Freddy Haynes NP RETIRED Surgical Site 06/23/20; 1136; Ri ght; Leg; 03/31/24 (Retired LDA, Removed/Completed by [facility] with LDA Utility); 1213 (Retired LDA, Removed/Completed by [facility] with LDA Utility) 06/23/20 1136 by Tamara Hussein RN 03/31/24 1213 by Discharge Provider, Automatic Closed/Suction/Open Drain 06/23/20; 1148; No; 2; Right; Leg; Bulb; 19 Fr. 06/23/20 1148 by Tamara Hussein RN 06/24/20 1317 by Freddy Haynes NP Y Chest Tube A and B 06/23/20; 1310; A; Anterior; Mediastinal; 36 Fr.; B; Posterior; Mediastinal; 32 Fr.; Therapy complete, Per order 06/23/20 1310 by Mercedes Dunham RN 06/26/20 1245 by Sada Serrato RN Chest Tube Placement Date: 06/23/20; Placement Time: 1432; Inserted by: Masha Hollingsworth MD; Orientation: Right; Location: Pleural; Size: 24 Fr; Drainage System: Suction; Removal Date: 06/25/20; Removal Time: 1200; Removal Reason: Per order 06/23/20 1432 by Tamara Hussein RN 06/25/20 1200 by Brisa Bahena RN RETIRED Surgical Site 06/23/20; 1518; No ; Medial; Chest; CT & EPW; 03/31/24 (Retired LDA, Removed/Completed by [facility] with LDA Utility); 1213 (Retired LDA, Removed/Completed by [facility] with LDA Utility) 06/23/20 1518 by Debbie Guadalupe RN 03/31/24 1213 by Discharge Provider, Automatic RETIRED Surgical Site 06/23/20; 1519; No ; BOYD; 05/04/22; 1053; Not present on admission 06/23/20 1519 by Debbie Guadalupe RN 05/04/22 1053 by Parul Baisn RN RETIRED Surgical Site 06/23/20; 1522; BOYD ARM; 05/04/22; 1053; Not present on admission 06/23/20 1522 by Debbie Guadalupe RN 05/04/22 1053 by Parul Bains RN documented in this encounter Social History Tobacco Use Types Packs/Day Years Used Date Smoking Tobacco: Never Smokeless Tobacco: Never Alcohol Use Standard Drinks/Week Comments Yes 0 (1 standard drink = 0.6 oz pur e alcohol) rare Sex and Gender Information Value Date Recorded Sex Assigned at Not on file Legal Sex Male 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 Gender Identity Male 07/25/2023 3:40 PM CDT Sexual Orientation Straight 10/28/2019 9: 50 AM CDT documented as of this encounter OR Notes * Anesthesia Postprocedure Evaluation - Shelbi Waldrop CRNA - 06/23/2020 3:52 PM CST Patient: Nathan Wagner Procedure Summary Date: 06/23/20 Room / Location: [facility] OR POD 3 ROOM 310 / [facility] OR POD 3 Anesthesia Start: 0651 Anesthesia Stop: 1552 Procedures: CORONARY ARTERY BYPASS GRAFT WITH PUMPx3 (N/A Chest) HARVEST - RADIAL ARTERY (Left Arm Lower) ENDOSCOPIC VESSEL HARVEST (N/A Thigh) REPLACEMENT AORTIC VALVE (N/A Chest) Diagnosis: Coronary artery disease without angina pectoris, unspecified vessel or lesion type, unspecified whether [place] or transplanted heart Aortic valve stenosis, etiology of cardiac valve disease unspecified (Coronary artery disease without angina pectoris, unspecified vessel or lesion type, unspecified whether [place] or transplanted heart [I25.10]) (Aortic valve stenosis, etiology of cardiac valve disease unspecified [I35.0]) Surgeons: Francia Worley MD Responsible Provider: Bashir Meadows MD Anesthesia Type: general ASA Status: 4 Anesthesia Type: general Last vitals BP 140/68 Pulse 90 Temp 36.5 ??C (97.7 ??F) (Core) Resp 19 SpO2 100% Anesthesia Post Evaluation Patient location during evaluation: ICU Patient participation: waiting for patient participation Level of consciousness: unconscious Pain score: unable to evaluate Pain management: adequate Airway patency: adequate Evidence of recall: unable to evaluate Anesthetic complications: no Cardiovascular status: acceptable Respiratory status: acceptable Hydration status: acceptable Pt is: normothermic Nausea/Vomiting status: none Cosigned by Barb Washington MD at 06/23/2020 4:01 PM 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 * Anesthesia Procedure Notes - Bashir Meadows MD - 06/23/2020 2:13 PM 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 Associated Order(s): SANDY SANDY Date/time: Staff: Supervising anesthesiologist: Bashir Meadows MD Performed by: Anesthesiologist: Bashir Meadows MD Preprocedure checklist: patient identified, procedure contraindications assessed, procedure consent, risks, benefits and alternatives discussed, monitors and equipment checked and SANDY probe inserted into esophagus using lubricating jelly General procedure Information: Reason for procedure/indications: assessment of surgical repair Performed: personally Procedure performed at surgeon's request: yes Results discussed with surgeon: yes Images submitted to archive: yes Patient location: OR Intubated: yes Bite blocked placed: yes Probe Insertion: easy Complications: no Probe type: adult Modalities: 2D imaging and color Doppler Billing information: Physician requesting echo: Francia Worley MD CPT code: SANDY placement and diagnostic exam, non-congenital (55577) ICD code(s) for medical necessity: R93.1 - Abnormal findings on diagnostic imaging of heart and coronary circulation Echocardiographic and doppler measurements: Ventricles: Left ventricle: Cavity size: normal Hypertrophy: yes Global function: normal Right ventricle: Cavity size: normal Global function: normal Regional function: 1- Basal anteroseptal: normal 2- Basal anterior: normal 3- Basal anterolateral: normal 4- Basal inferolateral: normal 5- Basal inferior: normal 6- Basal inferoseptal: normal 7- Mid anteroseptal: normal 8- Mid anterior: normal 9- Mid anterolateral: normal 10- Mid inferolateral: normal 11- Mid inferior: normal 12- Mid inferoseptal: normal 13- Apical anterior: normal 14- Apical lateral: normal 15- Apical inferior: normal 16- Apical septal: normal 17- [place]: normal Valves: Aortic Valve: Leaflet morphology: normal Stenosis: severe Regurgitation: trace and severe Mitral valve: Stenosis: none Regurgitation: mild Tricuspid valve: Stenosis: none Regurgitation: mild Pulmonic valve: Stenosis: none Regurgitation: trace Aorta: Ascending aorta: Dissection: no Aortic arch: Dissection: no Descending aorta: Dissection: no Atria: Right atrium: Size: normal Left atrium: Size: normal (normal) Left atrial appendage: normal Interatrial septum: normal Diastolic function and other findings: Pericardium: normal Left pleural effusion: none Right pleural effusion: normal Pre-procedure SANDY exam summary: Normal LV/RV systolic function. Mild MR, Mild TR. Stenotic aortic valve. Narvaez images reviewed with surgeon in real-time. Postprocedure (follow-up) SANDY exam: Postprocedure (follow-up) SANDY exam comments: Biologic valve in aortic position. Small amount of diastolic flow in LVOT that was reviewed with surgeon and appears to be within the sewing ring. Unchanged function and valves otherwise unchanged. Gradient across aortic valve approx 12mmHg. Attestation Statement: By signing this report the attending anesthesiologist certifies that he or she has personally reviewed and interpreted the echocardiogram and has reviewed and or edited and agrees with the written comments contained within the report. 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 * Anesthesia Procedure Notes - Shelbi Waldrop CRNA - 06/23/2020 8:04 AM CSTAssociated Order(s): Arterial Line Arterial Line Patient location: pre-op holding Indication: continuous blood pressure monitoring Staff: Supervising provider: Bashir Meadows MD Placed by: Other staff: Leyda Saeed RN Procedure prep: Prep solution: chlorhexadine/alcohol Prep: sterile gloves, sterile drape and provider hat/mask Skin infiltrated with lidocaine 1%: yes Arterial line: Catheter size: 20 gauge Catheter type: wire-guided catheter Seldinger technique: yes Laterality: right Site: radial artery Line secured: suture Results: good blood return Number of attempts: 1 Assessment: Events: patient tolerated procedure well with no complications 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 * Anesthesia Procedure Notes - Shelbi Waldrop CRNA - 06/23/2020 8:02 AM CSTAssociated Order(s): Central Venous Line Central Venous Line Patient location: OR Indication: central venous access and CVP monitoring Staff: Supervising provider: Bashir Meadows MD Placed by: Other staff: Leyda Saeed RN Procedure prep: Patient position: Trendelenburg. PPE: provider hand hygiene, provider hat/mask, sterile gloves, sterile gown, full body drape and large sterile drape. Prep solution: chlorhexadine/alcohol was applied to area. Ultrasound was prepped into field and used prior to prep. Central line: Laterality: right Site: internal jugular Catheter type: quad lumen Catheter size: 9 Fr. Catheter length: 20 cm Technique: anatomy identified with surface landmarks, anatomy identified with ultrasound, vein located with finder needle, Seldinger technique, wire threaded easily and wire removed intact Venous verification: manometry, pressure transduced, ultrasound confirmation and SANDY confirmation Post insertion: all ports aspirated, all ports flushed easily, line sutured in place and occlusive dressing applied Number of attempts: 1 PA catheter placement: PA catheter type: oximetric PA catheter laterality: right PA catheter site: internal jugular Placement guided by: pressure tracing changesNo Assessment: Events: patient tolerated procedure well with no complications 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 PPE: provider hand hygiene, provider hat/mask, sterile gloves, sterile gown, full body drape and large sterile drape. Prep solution: chlorhexadine/alcohol was applied to area. Ultrasound was prepped into field and used prior to prep. Central line: Laterality: right Site: internal jugular Catheter type: introducer sheath Catheter size: 9 Fr. Technique: anatomy identified with surface landmarks, anatomy identified with ultrasound, vein located with finder needle, Seldinger technique, wire threaded easily and wire removed intact Venous verification: manometry and SANDY confirmation Post insertion: all ports aspirated, all ports flushed easily, line sutured in place and occlusive dressing applied Number of attempts: 1 PA catheter placement: PA catheter type: oximetric PA catheter laterality: right PA catheter site: internal jugular Placement guided by: pressure tracing changes and verified by TEENo Assessment: Events: patient tolerated procedure well with no complications 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 * Anesthesia Procedure Notes - Bashir Meadows MD - 06/23/2020 7:10 AM 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 Associated Order(s): Airway Airway Patient location: OR Urgency: elective Indications for airway management: anesthesia Difficult airway: no Staff: Supervising provider: Bashir Meadows MD Emergent airway documentation: Risks and benefits discussed: yes Consent obtained: yes Airway prep: Preoxygenated: yes Patient position: sniffing Sedation level during airway: GA Final airway details: Final airway type: endotracheal airway Tube type: ETT ETT size: 8.0 mm Cuffed: yes Technique used for successful ETT placement: direct laryngoscopy Devices/Methods used in placement: intubating stylet Insertion site: oral Blade size: 4 Cormack-Lehane (direct): grade I - full view of glottis Cuff inflated with: air Placement verified by: auscultation and CO2 detection Airway secured with: silk tape Number of attempts: 1 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 * Anesthesia Preprocedure Evaluation - Bashir Meadows MD - 06/17/2020 4:28 PM CST Images from the original note were not included. [facility] Pre[facility] Planning Preoperative Evaluation Record Evaluation type/location: [facility] Planned procedure site: [facility] OR (Pods 2/3/5/CANDLE WRAPPER) Date: 06/17/20 Anesthesia Evaluation Nathan Wagner is a 74 y.o. male Procedure(s): CORONARY ARTERY BYPASS GRAFT WITH PUMP HARVEST - RADIAL ARTERY ENDOSCOPIC VESSEL HARVEST REPLACEMENT AORTIC VALVE Pre-Op Diagnosis Codes: * Coronary artery disease without angina pectoris, unspecified vessel or lesion type, unspecified whether [place] or transplanted heart [I25.10] * Aortic valve [...] iliac and femoral arteries) - Pertinent negatives: [place] ; CABG ; valve replacement; atrial fibrillation; [...] negative transfusion reaction hx.) + melena/hematochezia (hematochezia 04/2020/2 diverticulosis ) + chronic pain (knees) + [...] 4 days. Pre-procedure COVID19 testing performed at [facility]. Result pending- to be reviewed by [...] List Status: Nurse Complete Set By: Renetta eLe RN at 06/17/2020 4:16 PM Taking? Last [...] mg extended release tablet 06/17/2020 06/09/20 -- Francia Worley MD Take 0.5 tablets (12.5 mg total) [...] Impaired Relaxation. As compared to previous study 11-03-20, remains severe, LENORA and AV gradients are [...] Score: 0 Short Blessed Total Score: 0 DOS Physical Exam Medical history, medications, and allergies reviewed. Attestation: This PAT evaluation Airway Exam: Mallampati: II Cervical ROM: FROM TM distance: normal Cardiovascular Exam: Rate: regular Rhythm: regular Pulmonary Exam: LCTA Dental Exam: Appears intact Skin Exam: Skin is warm. Current state: Patient's current state is cooperative. Anesthesia Plan ASA 4 My patient is approved for the Anesthesia Controlled Medication protocol when under care of a [employer] Planned anesthesia: General Team communication plan: oral ET tube Invasive Monitors Planned: Invasive monitors planned: arterial line, central venous catheter, pulmonary artery catheter and SANDY. Induction: Induction: intravenous. Postoperative Plan: Postoperative administration opioids intended. Postoperative mechanical ventilation intended. Patient's planned disposition post procedure is ICU. Informed Consent: Discussed plan with [employer]. Anesthesia plan and risks discussed with patient. Consent and Attending signature: I and/or my designee have discussed the anesthesia plan, benefits, possible alternatives, parental presence at time of induction (if indicated), and clinically relevant risks that may include dental injury, unintentional awareness, and/or other complications. The patient and/or parent/legal guardian understand, and agree to proceed. All questions answered. 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 documented in this encounter Miscellaneous Notes * Post-Perfusion - Donald Miller CCP - 06/23/2020 3:12 PM CST Medications lidocaine 1 % PF (mL) Date/Time Rate/Dose/Volume Action Admin User Audit 06/23/20 0707 100 mL Given Bashir Meadows MD fentaNYL (mcg) Date/Time Rate/Dose/Volume Action Admin User Audit 06/23/20 0707 250 mcg Given Bashir Meadows MD 0807 150 mcg Given Waldrop, Shelbi Salome, [employer] 0828 100 mcg Given Waldrop, Shelbi Salome, [employer] 0831 250 mcg Given Waldrop, Shelbi Salome, [employer] 0935 100 mcg Given Leyda Saeed, RN 1124 150 mcg Given Leyda Saeed, RN 1331 150 mcg Given Leyda Saeed, RN 1334 100 mcg Given Leyda Saeed, RN 1429 150 mcg Given Waldrop, Shelbi Salome, [employer] 1456 100 mcg Given Waldrop, Shelbi Salome, [employer] propofol (mg) Date/Time Rate/Dose/Volume Action Admin User Audit 06/23/20 0707 200 mg Given Bashir Meadows MD 0943 100 mg Given Shelbi Waldrop, [employer] propofol (mcg/kg/min) Dosing weight: 95.6 Date/Time Rate/Dose/Volume Action Admin User Audit 06/23/20 1508 50 mcg/kg/min - 28.68 mL/hr New Bag Shelbi Waldrop, [employer] succinylcholine (mg) Date/Time Rate/Dose/Volume Action Admin User Audit 06/23/20 0707 100 mg Given Bashir Meadows MD norepinephrine (mcg) Date/Time Rate/Dose/Volume Action Admin User Audit 06/23/20 1022 8 mcg Given Leyda Saeed RN 1436 8 mcg Given WaldropJohnin Salome, [employer] 1504 8 mcg Given WaldropJohnin Salome, [employer] 1511 8 mcg Given Shelbi Waldrop, [employer] heparin 1,000 unit/ml (Units) Date/Time Rate/Dose/Volume Action Admin User Audit 06/23/20 0922 30,000 Units Given Shelbi Waldrop, [employer] 1115 10,000 Units Given Leyda Saeed, TREV tranexamic acid (mg) Date/Time Rate/Dose/Volume Action Admin User Audit 06/23/20 0954 1,000 mg Given Leyda Saeed, TREV phenylephrine infusion (100 mcg/mL) (mcg/kg/min) Dosing weight: 95.6 Date/Time Rate/Dose/Volume Action Admin User Audit 06/23/20 0706 0.5 mcg/kg/min - 28.68 mL/hr New Bag Bashir Meadows MD 0707 1 mcg/kg/min - 57.36 mL/hr Rate Change Bashir Meadows MD edited 0807 Stopped Shelbi Waldrop, [employer] anticoagulant citrate dextrose solution A injection (mL) Date/Time Rate/Dose/Volume Action Admin User Audit 06/23/20 0830 1,000 mL (over 240 min) Given Gris Melo, [facility] Comment: cell saver vancomycin 1500 mg/515 mL in sodium chloride 0.9% (premix) 1,500 mg (mg) Dosing weight: 95.6 Date/Time Rate/Dose/Volume Action Admin User Audit 06/23/20 0711 1,500 mg Given Bashir Meadows MD edited glycopyrrolate (mg) Date/Time Rate/Dose/Volume Action Admin User Audit 06/23/20 0725 0.4 mg Given Shelbi Waldrop CRNA ceFAZolin (ANCEF) 2,000 mg/20 mL in sterile water (premix) 2,000 mg (mg) Dosing weight: 95.6 Date/Time Rate/Dose/Volume Action Admin User Audit 06/23/20 0808 2,000 mg Given Shelbi Waldrop CRNA edited 1218 2,000 mg Given Leyda Saeed RN phenylephrine 1 mg/10 mL inj (100 mcg/mL) (mcg) Date/Time Rate/Dose/Volume Action Admin User Audit 06/23/20 0706 600 mcg Given Shelbi Waldrop CRNA 1504 8 mcg Given Shelbi Waldrop CRNA norepinephrine in 0.9% sodium chloride (LEVOPHED) 8,000 mcg/250 mL (32 mcg/mL) infusion (premix) (mcg/kg/min) Dosing weight: 95.6 Date/Time Rate/Dose/Volume Action Admin User Audit 06/23/20 0853 0.04 mcg/kg/min - 7.17 mL/hr New Bag Shelbi Waldrop [employer] edited 0908 0.02 mcg/kg/min - 3.585 mL/hr Rate Change Shelbi Waldrop [employer] 0914 0.04 mcg/kg/min - 7.17 mL/hr Rate Change WaldropShelbi, [employer] 0937 0.03 mcg/kg/min - 5.377 mL/hr Rate Change Shelbi Waldrop, [employer] 0959 Stopped Leyda Saeed, TREV 1023 0.03 mcg/kg/min - 5.377 mL/hr Restarted Leyda Saeed, TREV 1029 0.06 mcg/kg/min - 10.755 mL/hr Rate Change Leyda Saeed, RN 1033 0.1 mcg/kg/min - 17.925 mL/hr Rate Change Leyda Saeed RN 1133 0.08 mcg/kg/min - 14.34 mL/hr Rate Change Leyda Saeed RN 1136 Stopped Leyda Saeed RN 1347 0.08 mcg/kg/min - 14.34 mL/hr Restarted Leyda Saeed RN 1405 0.04 mcg/kg/min - 7.17 mL/hr Rate Change Leyda Saeed RN 1436 0.08 mcg/kg/min - 14.34 mL/hr Rate Change Shelbi Waldrop, [employer] edited 1448 0.04 mcg/kg/min - 7.17 mL/hr Rate Change Shelbi Waldrop, DARREN heparin infusion (Units/hr) Date/Time Rate/Dose/Volume Action Admin User Audit 06/23/20 0922 9,000 Units/hr - 90 mL/hr New Bag Shelbi Waldrop, [employer] 1207 4,000 Units/hr - 40 mL/hr Rate Change Leyda Saeed RN 1309 Stopped Leyda Saeed RN tranexamic acid 10 mg/mL 100 mL (premix) (mg/kg/hr) Dosing weight: 95.6 Date/Time Rate/Dose/Volume Action Admin User Audit 06/23/20 0954 15 mg/kg/hr - 143.4 mL/hr New Bag Leyda Saeed RN 1159 Stopped Leyda Saeed RN insulin regular in 0.9% sodium chloride 100 units/100 mL infusion (premix) (Units/hr) Dosing weight: 95.6 Date/Time Rate/Dose/Volume Action Admin User Audit 06/23/20 1152 2 Units/hr - 2 mL/hr New Leyda Frazire RN edited EPINEPHrine in 0.9% sodium chloride 2 mg/100 mL (20 mcg/mL) infusion (premix) (mcg/kg/min) Dosing weight: 95.6 Date/Time Rate/Dose/Volume Action Admin User Audit 06/23/20 1319 0.03 mcg/kg/min - 8.604 mL/hr New Bag Leyda Saeed RN edited protamine (mg) Date/Time Rate/Dose/Volume Action Admin User Audit 06/23/20 1329 330 mg Given Leyda Saeed RN LR (mL) Date/Time Rate/Dose/Volume Action Admin User Audit 06/23/20 0820 New Bag WaldropShelbi ann, [employer] Lactated Ringer's (LR) infusion (mL/hr) Dosing weight: 95.6 Date/Time Rate/Dose/Volume Action Admin User Audit 06/23/20 0801 75 mL/hr New Bag WaldropShelbi ann, [employer] edited NS 0.9% (mL) Date/Time Rate/Dose/Volume Action Admin User Audit 06/23/20 0903 New Bag WaldropShelbi ann, [employer] albumin human bottle 5 % (mL) Date/Time Rate/Dose/Volume Action Admin User Audit 06/23/20 1350 New Bag HussainevaLeyda, TREV 1407 500 mL Stopped Leyda Saeed, TREV 1432 New Bag WaldropShelbi ann, [employer] 1445 250 mL Stopped Shelbi Waldrop, [employer] PLATELETS - CROSSMATCHED W2011 21 [id number] (mL) Date/Time Rate/Volume Action Admin User Audit 06/23/20 1342 New Bag HussainevLeyda medrano RN 1343 200 mL Stopped Leyda Saeed, TREV FFP - CROSSMATCHED W2011 21 [id number] (mL) Date/Time Rate/Volume Action Admin User Audit 06/23/20 1441 New Bag Waldrop, Shelbi Salome, [employer] 1442 150 mL Stopped Shelbi Waldrop, [employer] W2011 21 [id number] (mL) Date/Time Rate/Volume Action Admin User Audit 06/23/20 1449 New Bag Waldrop, Shelbi Mcmahon, [employer] 1450 150 mL Stopped Shelbi Waldrop, [employer] PRBC - CROSSMATCHED W2011 21 [id number] (mL) Date/Time Rate/Volume Action Admin User Audit 06/23/20 1509 New Bag Shelbi WaldropDARREN 1510 250 mL Stopped Shelbi Waldrop CRNA Events Date Time Event 06/23/2020 0532 Patient in Pre-Op 0651 Anesthesia Start 0655 Patient in Room 0656 Start Data Collection 0706 Induction The patient was reevaluated immediately before moderate or deep sedation use and before anesthesia induction. 0708 Intubation 0709 Perfusion Ready 0709 Start data Collection 0715 SANDY placed 0801 Anesthesia Ready 0826 Procedure Start 0828 Incision Start 0830 Cell Saver Start 0833 Lungs Down 0834 Sternotomy 1119 CPB ON 1119 Cooling Start 1125 Aortic Clamp ON 1309 Rewarming Start 1309 Aortic Clamp OFF 1333 CPB OFF 1455 Sternum closed 1511 Stop Data Collection 1512 Cell Saver Stop Cosigned by Barb Washington MD at 06/23/2020 4:01 PM 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 documented in this encounter Plan of Treatment Not on file documented as of this encounter Procedures Procedure Name Priority Date/Time Associated Diagnosis Comments NC AN PROCEDURE PLACEHOLDER Routine 06/23/2020 2:13 PM 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 NC AN PROCEDURE PLACEHOLDER Routine 06/23/2020 8:04 AM 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 NC AN PROCEDURE PLACEHOLDER Routine 06/23/2020 8:02 AM 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 PULMONARY ARTERY CATH Routine 06/23/2020 8:02 AM 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 NC AN CENTRAL LINE QUADRUPLE LUMEN Routine 06/23/2020 8:02 AM 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 NC AN PROCEDURE PLACEHOLDER Routine 06/23/2020 8:01 AM 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 PULMONARY ARTERY CATH Routine 06/23/2020 8:01 AM 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 BW AN SHEATH INTRODUCER PERFORMABLE Routine 06/23/2020 8:01 AM 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 NC AN PROCEDURE PLACEHOLDER Routine 06/23/2020 7:10 AM 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 NC AN ELECTIVE ENDOTRACHEAL AIRWAY Routine 06/23/2020 7:10 AM 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 documented in this encounter Results * NC AN PROCEDURE PLACEHOLDER (06/23/2020 2:13 PM 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) Anatomical Region Laterality Modality Other Narrative 06/23/2020 2:13 PM 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 Bashir Meadows MD ? 06/24/2020 ??7:04 AM SANDY Date/time: Staff: Supervising anesthesiologist: Bashir Meadows MD Performed by: Anesthesiologist: Bashir Meadows MD Preprocedure checklist: patient identified, procedure contraindications assessed, procedure consent, risks, benefits and alternatives discussed, monitors and equipment checked and SANDY probe inserted into esophagus using lubricating jelly General procedure Information: Reason for procedure/indications: assessment of surgical repair Performed: personally Procedure performed at surgeon's request: yes Results discussed with surgeon: yes Images submitted to archive: ??yes Patient location: OR Intubated: yes Bite blocked placed: yes Probe Insertion: easy Complications: no Probe type: adult Modalities: 2D imaging and color Doppler Billing information: Physician requesting echo: Francia Worley MD CPT code: SANDY placement and diagnostic exam, non-congenital (36857) ICD code(s) for medical necessity: R93.1 - Abnormal findings on diagnostic imaging of heart and coronary circulation Echocardiographic and doppler measurements: Ventricles: Left ventricle: Cavity size: normal Hypertrophy: yes Global function: normal Right ventricle: Cavity size: normal Global function: normal Regional function: 1- Basal anteroseptal: normal 2- Basal anterior: normal 3- Basal anterolateral: normal 4- Basal inferolateral: normal 5- Basal inferior: normal 6- Basal inferoseptal: normal 7- Mid anteroseptal: normal 8- Mid anterior: normal 9- Mid anterolateral: normal 10- Mid inferolateral: normal 11- Mid inferior: normal 12- Mid inferoseptal: normal 13- Apical anterior: normal 14- Apical lateral: normal 15- Apical inferior: normal 16- Apical septal: normal 17- [place]ine: normal Valves: Aortic Valve: Leaflet morphology: normal Stenosis: severe Regurgitation: trace and severe Mitral valve: Stenosis: none Regurgitation: mild Tricuspid valve: Stenosis: none Regurgitation: mild Pulmonic valve: Stenosis: none Regurgitation: trace Aorta: Ascending aorta: Dissection: no Aortic arch: Dissection: no Descending aorta: Dissection: no Atria: Right atrium: Size: normal Left atrium: Size: normal (normal) Left atrial appendage: normal Interatrial septum: normal Diastolic function and other findings: Pericardium: normal Left pleural effusion: none Right pleural effusion: normal Pre-procedure SANDY exam summary: Normal LV/RV systolic function. Mild MR, Mild TR. Stenotic aortic valve. Narvaez images reviewed with surgeon in real-time. Postprocedure (follow-up) SANDY exam: Postprocedure (follow-up) SANDY exam comments: Biologic valve in aortic position. ??Small amount of diastolic flow in LVOT that was reviewed with surgeon and appears to be within the sewing ring. ?? Unchanged function and valves otherwise unchanged. Gradient across aortic valve approx 12mmHg. Attestation Statement: By signing this report the attending anesthesiologist certifies that he or she has personally reviewed and interpreted the echocardiogram and has reviewed and or edited and agrees with the written comments contained within the report. Bashir Meadows MD ANESTHESIA ORDERABLES Quentin timoteo Result - Final * NC AN PROCEDURE PLACEHOLDER (06/23/2020 8:04 AM 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) Narrative Shelbi Waldrop CRNA - 06/23/2020 8:04 AM 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 Shelbi Waldrop CRNA ? 06/23/2020 ??8:04 AM Arterial Line Patient location: pre-op holding Indication: continuous blood pressure monitoring Staff: Supervising provider: Bashir Meadows MD Placed by: Other staff: Leyda Saeed RN Procedure prep: Prep solution: chlorhexadine/alcohol Prep: sterile gloves, sterile drape and provider hat/mask Skin infiltrated with lidocaine 1%: yes Arterial line: Catheter size: 20 gauge Catheter type: wire-guided catheter Seldinger technique: yes Laterality: right Site: radial artery Line secured: suture Results: good blood return Number of attempts: 1 Assessment: Events: patient tolerated procedure well with no complications Bashir Meadows MD ANESTHESIA ORDERABLES Fin al Result * NC AN CENTRAL LINE QUADRUPLE LUMEN, PULMONARY ARTERY CATH, NC AN PROCEDURE PLACEHOLDER (06/23/2020 8:02 AM 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) Shelbi Coley CRNA - 06/23/2020 8:02 AM 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 Shelbi Waldrop CRNA ? 06/23/2020 ??8:04 AM Central Venous Line Patient location: OR Indication: central venous access and CVP monitoring Staff: Supervising provider: Bashir Meadows MD Placed by: Other staff: Leyda Saeed RN Procedure prep: Patient position: Trendelenburg. PPE: provider hand hygiene, provider hat/mask, sterile gloves, sterile gown, full body drape and large sterile drape. Prep solution: chlorhexadine/alcohol was applied to area. Ultrasound was prepped into field and used prior to prep. Central line: Laterality: right Site: internal jugular Catheter type: quad lumen Catheter size: 9 Fr. Catheter length: 20 cm Technique: anatomy identified with surface landmarks, anatomy identified with ultrasound, vein located with finder needle, Seldinger technique, wire threaded easily and wire removed intact Venous verification: manometry, pressure transduced, ultrasound confirmation and SANDY confirmation Post insertion: all ports aspirated, all ports flushed easily, line sutured in place and occlusive dressing applied Number of attempts: 1 PA catheter placement: PA catheter type: oximetric PA catheter laterality: right PA catheter site: internal jugular Placement guided by: pressure tracing changesNo Assessment: Events: patient tolerated procedure well with no complications Bashir Medaows MD ANESTHESIA ORDERABLES Fin al Result * BW AN SHEATH INTRODUCER PERFORMABLE, PULMONARY ARTERY CATH, NC AN PROCEDURE PLACEHOLDER (18:01 AM 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) Shelbi Coley CRNA - 06/23/2020 8:01 AM 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 Shelbi Waldrop CRNA ? 06/23/2020 ??8:02 AM Central Venous Line Patient location: OR Indication: central venous access and CVP monitoring Staff: Supervising provider: Bashir Meadows MD Placed by: Other staff: Dekleva, Leyda Sonya, marketing recruiter prep: Patient position: Trendelenburg. PPE: provider hand hygiene, provider hat/mask, sterile gloves, sterile gown, full body drape and large sterile drape. Prep solution: chlorhexadine/alcohol was applied to area. Ultrasound was prepped into field and used prior to prep. Central line: Laterality: right Site: internal jugular Catheter type: introducer sheath Catheter size: 9 Fr. Technique: anatomy identified with surface landmarks, anatomy identified with ultrasound, vein located with finder needle, Seldinger technique, wire threaded easily and wire removed intact Venous verification: manometry and SANDY confirmation Post insertion: all ports aspirated, all ports flushed easily, line sutured in place and occlusive dressing applied Number of attempts: 1 PA catheter placement: PA catheter type: oximetric PA catheter laterality: right PA catheter site: internal jugular Placement guided by: pressure tracing changes and verified by TEENo Assessment: Events: patient tolerated procedure well with no complications us Bashir Meadows MD ANESTHESIA ORDERABLES Fin al Result * NC AN ELECTIVE ENDOTRACHEAL AIRWAY, NC AN PROCEDURE PLACEHOLDER (06/23/2020 7:10 AM 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) Narrative Bashir Meadows MD - 06/23/2020 7:10 AM 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 Bashir Meadows MD ? 06/23/2020 ??7:19 AM Airway Patient location: OR Urgency: elective Indications for airway management: anesthesia Difficult airway: no Staff: Supervising provider: Bashir Meadows MD Emergent airway documentation: Risks and benefits discussed: yes Consent obtained: yes Airway prep: Preoxygenated: yes Patient position: sniffing Sedation level during airway: GA Final airway details: Final airway type: endotracheal airway Tube type: ETT ETT size: 8.0 mm Cuffed: yes Technique used for successful ETT placement: direct laryngoscopy Devices/Methods used in placement: intubating stylet Insertion site: oral Blade size: 4 Cormack-Lehane (direct): grade I - full view of glottis Cuff inflated with: air Placement verified by: auscultation and CO2 detection Airway secured with: silk tape Number of attempts: 1 us Bashir Meadows MD ANESTHESIA ORDERABLES Fin al Result documented in this encounter Visit Diagnoses Not on filedocumented in this encounter Administered Medications Inactive Administered Medications - up to 3 most recent administrations Medication Order MAR Action Action Date Dose Rate Site albumin 5 % bottle intravenous, Continuous PRN, Starting on [place]ini 06/23/20 at 1350, Anesthesia Intra-op New Bag 06/23/2020 2:32 PM 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 New Bag 06/23/2020 1:50 PM 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 ceFAZolin (ANCEF) 2,000 mg/20 mL in sterile water (premix) 2,000 mg 2,000 mg, intravenous, at 400 mL/hr, Administer over 3 Minutes, Once, On Destini 06/23/20 at 0645, For 1 dose, Intra-Op, Administer within 60 minutes of incision., Indications: Prophylaxis, SurgicalIndications:Prophylaxis, Surgical Given 06/23/2020 12:18 P M 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 2,000 mg Given 06/23/2020 8:08 AM 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 2,000 mg citrate dextrose solution (ACD-A) infusion miscellaneous, As needed, Starting on Destini 06/23/20 at 0830, Anesthesia Intra-op Given 06/23/2020 8:30 AM 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 1,000 mL EPINEPHrine in 0.9% sodium chloride 2 mg/100 mL (20 mcg/mL) infusion (premix) 0.02-0.2 mcg/kg/min ? 95.6 kg (5.736-57.36 mL/hr, rounded to 5.74-57.36 mL/hr), 20 mcg/mL, intravenous, Titrated, Starting on Destini 06/23/20 at 0945, Until [place]ini 06/23/20 at 1547, Intra-Op, Indications: hypotension, Initial rate: 0.02 mcg/kg/min, Titrate: Up/Down, Titrate by: 0.01 mcg/kg/min, Every: 2 minutes, Goal: MAP, MAP Goal: 65-75 mmHg, RoutineIndications:hypot ension Rate/Dose Change 06/23/2020 3:40 PM 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 0.03 mcg/kg/min 8.6 mL/hr New Bag 06/23/2020 1:19 PM 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 0.03 mcg/kg/min 8.604 mL /hr fentaNYL (SUBLIMAZE) preservative free injection intravenous, As needed, Starting on [place]ini 06/23/20 at 0707, Anesthesia Intra-op Given 06/23/2020 2:56 PM 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 100 mcg Given 06/23/2020 2:29 PM 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 150 mcg Given 06/23/2020 1:34 PM 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 100 mcg glycopyrrolate (ROBINUL) injection intravenous, Administer over 1 Minutes, As needed, Starting on Sat06/23/20 at 0725, Anesthesia Intra-op Given 06/23/2020 7:25 AM 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 0.4 mg heparin 1,000 unit/mL injection intravenous, As needed, Starting on Sat06/23/20 at 0922, Anesthesia Intra-op Given 06/23/2020 11:15 AM 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 10,000 Units Given 06/23/2020 9:22 AM 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 30,000 Units heparin in 0.45% sodium chloride 25,000 units/250 mL (100 units/mL) infusion (premix) intravenous, Continuous PRN, Starting on Sat06/23/20 at 0922, Anesthesia Intra-op Rate/Dose Change 06/23/2020 12:07 PM 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 4,000 Units/hr 40 mL/hr New Bag 06/23/2020 9:22 AM 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 9,000 Units/hr 90 mL/hr insulin regular in 0.9% sodium chloride 100 units/100 mL infusion (premix) 0-30 Units/hr (0-30 mL/hr), 1 units/mL, intravenous, Titrated, Starting on Sat06/23/20 at 1230, Until Sat06/24/20 at 0729, Intra-Op, [...] IV pump prior to connecting to patient., RoutineIndications:Hyperglyc emia Rate/Dose Verify 06/24/2020 7:00 AM 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 2 Units/hr 2 mL/hr Rate/Dose Verify 06/24/2020 6:00 AM 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 2 Units/hr 2 mL/hr Rate/Dose Verify 06/24/2020 5:00 AM 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 2 Units/hr 2 mL/hr Lactated Ringer's (LR) infusion 30 mL/hr, intravenous, Continuous, Starting on Destini 06/23/20 at 0615, Pre-Op New Bag 06/23/2020 8:01 AM 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 75 mL/hr Lactated Ringer's (LR) infusion intravenous, Continuous PRN, Starting on [place]ini 06/23/20 at 0820, Anesthesia Intra-op New Bag 06/23/2020 8:20 AM 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 lidocaine PF (XYLOCAINE) 10 mg/mL (1 %) preservative free injection intravenous, As needed, Starting on [place]ini 06/23/20 at 0707, Anesthesia Intra-op Given 06/23/2020 7:07 AM 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 100 mL norepinephrine (LEVOPHED) injection intravenous, As needed, Starting on [place]ini 06/23/20 at 1022, Anesthesia Intra-op Given 06/23/2020 3:11 PM 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 8 mcg Given 06/23/2020 3:04 PM 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 8 mcg Given 06/23/2020 2:36 PM 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 8 mcg norepinephrine in 0.9% sodium chloride (LEVOPHED) 8,000 mcg/250 mL (32 mcg/mL) infusion (premix) 0.01-2 mcg/kg/min ? 95.6 kg (1.7925-358.5 mL/hr, rounded to 1.79-358.5 mL/hr), 32 mcg/mL, intravenous, Titrated, Starting on Destini 06/23/20 at 0945, Until Destini 06/23/20 at 1609, Intra-Op, Indications: hypotension, Initial rate: 0.05 mcg/kg/min, Titrate: Up/Down, Titrate by: 0.01 mcg/kg/min, Every: 2 minutes, Goal: MAP, MAP Goal: 65-75 mmHg, RoutineIndications:hypo tension Rate/Dose Change 06/23/2020 3:13 PM 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 0.08 mcg/kg/min 14.34 mL/hr Rate/Dose Change 06/23/2020 2:48 PM 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 0.04 mcg/kg/min 7. 17 mL/hr Rate/Dose Change 06/23/2020 2:36 PM 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 0.08 mcg/kg/min 14 .34 mL/hr phenylephrine (ELIDA-SYNEPHRINE) 1 mg/10 mL (100 mcg/mL) in sodium chloride 0.9% (premix) intravenous, As needed, Starting on [place]ini 06/23/20 at 0706, Anesthesia Intra-op Given 06/23/2020 3:04 PM 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 8 mcg Given 06/23/2020 7:06 AM 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 600 mcg phenylephrine (ELIDA-SYNEPHRINE) 5 mg/50 mL (100 mcg/mL) in sodium chloride 0.9% (premix) intravenous, Continuous PRN, Starting on [place]ini 06/23/20 at 0706, Anesthesia Intra-op Rate/Dose Change 06/23/2020 7:07 AM 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 1 mcg/kg/min 57.36 mL/hr New Bag 06/23/2020 7:06 AM 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 0.5 mcg/kg/min 28.68 mL/ hr propofoL (DIPRIVAN) IV intravenous, As needed, Starting on [place]ini 06/23/20 at 0707, Anesthesia Intra-op Given 06/23/2020 9:43 AM 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 100 mg Given 06/23/2020 7:07 AM 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 200 mg propofoL (DIPRIVAN) IV intravenous, Continuous PRN, Starting on [place]ini 06/23/20 at 1508, Anesthesia Intra-op New Bag 06/23/2020 3:08 PM 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 50 mcg/kg/min 28.68 mL/hr protamine injection intravenous, As needed, Starting on [place]ini 06/23/20 at 1329, Anesthesia Intra-op, Indications: Heparin ToxicityIndications:Heparin Toxicity Given 06/23/2020 1:29 PM 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 330 mg sodium chloride 0.9% infusion intravenous, Continuous PRN, Starting on [place]ini 06/23/20 at 0903, Anesthesia Intra-op New Bag 06/23/2020 9:03 AM 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 succinylcholine (ANECTINE) injection intravenous, As needed, Starting on [place]ini 06/23/20 at 0707, Anesthesia Intra-op Given 06/23/2020 7:07 AM 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 100 mg tranexamic acid (CYKLOKAPRON) 1,000 mg/10 mL (100 mg/mL) solution intravenous, As needed, Starting on [place]ini 06/23/20 at 0954, Anesthesia Intra-op Given 06/23/2020 9:54 AM 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 1,000 mg tranexamic acid (CYKLOKAPRON) 1,000 mg/100 mL (10 mg/mL) in sodium chloride (premix) intravenous, Continuous PRN, Starting on [place]ini 06/23/20 at 0954, Anesthesia Intra-op New Bag 06/23/2020 9:54 AM 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 15 mg/kg/hr 143.4 mL/hr Transfuse plasma Timed New Bag 06/23/2020 2:41 PM 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 Transfuse plasma Timed New Bag 06/23/2020 2:49 PM 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 Transfuse platelets Timed New Bag 06/23/2020 1:42 PM 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 Transfuse RBC Timed New Bag 06/23/2020 3:09 PM 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 Transfuse RBC Timed New Bag 06/23/2020 3:16 PM 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 vancomycin 1500 mg/515 mL in sodium chloride 0.9% (premix) 1,500 mg 1,500 mg, intravenous, Administer over 90 Minutes, Once, On [place]ini 06/23/20 at 0645, For 1 dose, Intra-Op, Administer within 120 minutes of incision., Indications: Prophylaxis, SurgicalIndications:Prophyla xis, Surgical Given 06/23/2020 7:11 AM 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 1,500 mg documented in this encounter Care Teams [employer] [employer] Relationship Specialty Start Date End Date Martin López MD [address] [place] [address] PCP - General 06/27/12 Khalif Ca MD [address] [place] [address] Referring Physician Cardiology 04/08/19 documented as of this encounter
--- OUTSIDE RECORDS SUMMARY | 2024-04-20 00:17 | XMS_ITS | Encounter Summary ---
Author Organization [facility] Address [address] [place] [address] Phone Care Team Providers Care Teaseler Name Role Phone Martin López MD Primary Care Provider Khalif Ca MD Unavailable [phone] Encounter Details Date Type Department Care Team (Late st Contact Info) Description 06/15/2020 Telephone [facility] Cardiology [address] [facility] 8th [place] [address] [place] [address] Tera Torre MD [address] [place], [place] [id number] Social History Tobacco Use Types Packs/Day Years Used Date Smoking Tobacco: Never Smokeless Tobacco: Never Sex and Gender Information Value Date Recorded Sex Assigned at Not on file Legal Sex Male 9:13 PM TACK COVERER Gender Identity Male 07/25/2023 3:40 PM CDT Sexual Orientation Straight 10/28/2019 9: 50 AM CDT documented as of this encounter Miscellaneous Notes * Telephone Encounter - Corie Tapia RN - 06/16/2020 8:47 AM TACK COVERER He says his questions have been answered. COVERER * Telephone Encounter - Hien Acevedo B.A. - 06/15/2020 4:04 PM TACK COVERER Please call patient. COVERER * Telephone Encounter - Jaelyn Keith RN - 06/15/2020 3:26 PM CST Pt going open- has questions about surgery. COVERER * Telephone Encounter - Medina Villarreal BS - 06/15/2020 3:22 PM CST [facility] CALLING WITH A QUESTION BEFORE HIS SURGERY. PLEASE CALL PT TO DISCUSS. COVERER documented in this encounter Plan of Treatment Not on file documented as of this encounter Visit Diagnoses Not on filedocumented in this encounter Care Teams Teaseler Relationship Specialty Start Date End Date Martin López MD [address] [address] PCP - General 06/27/12 Khalif Ca MD [address] [address] Referring Physician Cardiology 04/08/19 documented as of this encounter
--- OUTSIDE RECORDS SUMMARY | 2024-04-20 00:17 | XMS_ITS | Encounter Summary ---
Author Organization [facility] Address [address] [place] [address] Phone Care Team Providers Care Watchmaker Apprentice Name Role Phone Martin López MD Primary Care Provider Khalif Ca MD Unavailable Encounter Details Date Type Department Care Team (Late st Contact Info) Description 06/09/2020 Orders Only [facility] Cardiology [address] [facility] 8th [place] [address] [place] [phone] Corie Tapia RN Social History Tobacco Use Types Packs/Day Years Used Date Smoking Tobacco: Never Smokeless Tobacco: Never Sex and Gender Information Value Date Recorded Sex Assigned at Not on file Legal Sex Male 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 Gender Identity Male 07/25/2023 3:40 PM CDT Sexual Orientation Straight 10/28/2019 9: 50 AM CDT documented as of this encounter Ordered Prescriptions Prescription Sig Dispense Quantity Refills Last Filled Start Date End Date metoprolol XL (TOPROL-XL) 25 mg extended release tablet Take 0.5 tablets (12.5 mg total) by mouth daily 15 tablet 1 06/09/2020 documented in this encounter Plan of Treatment Not on file documented as of this encounter Visit Diagnoses Not on filedocumented in this encounter Care Teams Watchmaker Apprentice Relationship Specialty Start Date End Date Martin López MD [address] [place] [address] PCP - General 06/27/12 Khalif Ca MD [address] [facility] [address] [place] [id number] Referring Physician Cardiology 04/08/19 documented as of this encounter
--- OUTSIDE RECORDS SUMMARY | 2024-04-20 00:17 | XMS_ITS | Encounter Summary ---
Author Organization [facility] Address [address] [place] [address] Phone Care Team Providers Care Foundation Director Name Role Phone Martin López MD Primary Care Provider Khalif Ca MD Unavailable [phone] Encounter Details Date Type Department Care Team (Late st Contact Info) Description 05/25/2020 8:30 AM ERP BUSINESS ANALYST - 05/25/2020 9:30 AM ERP BUSINESS ANALYST Surgery [facility] [address] [facility] [address] [place] [address] Tera Torre MD [address] [place] [address] LEFT HEART CATHETERIZATION WITH CORONARY ANGIOGRAPHY AND WITH OR WITHOUT LEFT VENTRICULOGRAM [id number] Surgery Details Date/Time Status Location OR Service Patient Class Case Class Case Type Trauma Case? 05/25/2020 8:30 AM Posted HCI CARDIAC SENIOR DOT NET DEVELOPER HCI Room Service Manager 1 Cardiovascular Outpatient Elective Panel 1 Procedure LRB Anes Op Region Wound Class Comments LEFT HEART CATHETERIZATION W ITH CORONARY ANGIOGRAPHY AND WITH OR WITHOUT LEFT VENTRICULOGRAM [id number] N/A Surgeon Surgeon Role Service Panel Tera Torre MD Primary Cardiovascular 1 Atilio Patel MD Fellow Cardiovascu lar 1 Case Notes 5'9 212 lbs TEA PLANTATION WORKER 1.11 HGB 13.1 documented in this encounter Social History Tobacco Use Types Packs/Day Years Used Date Smoking Tobacco: Never Smokeless Tobacco: Never Sex and Gender Information Value Date Recorded Sex Assigned at Not on file Legal Sex Male 9:13 PM ERP BUSINESS ANALYST Gender Identity Male 07/25/2023 3:40 PM CDT Sexual Orientation Straight 10/28/2019 9: 50 AM CDT documented as of this encounter Last Filed Vital Signs Vital Sign Reading Time Taken Comments Blood Pressure 110/65 05/25/2020 9:25 AM ERP BUSINESS ANALYST Pulse 65 05/25/2020 9:25 AM ERP BUSINESS ANALYST Temperature 36.7 ??C (98.1 ??F) 05/25/2020 7:23 AM CS T Respiratory Rate 17 05/25/2020 9:25 AM ERP BUSINESS ANALYST Oxygen Saturation 97% 05/25/2020 9:25 AM ERP BUSINESS ANALYST Inhaled Oxygen Concentration - - Weight - - Height - - Body Mass Index - - documented in this encounter Discharge Instructions * Discharge Instructions* Prabha Savage RN - 05/25/2020 9:47 AM ERP BUSINESS ANALYST Discharge Instructions For Cardiac Catheterization (Radial Approach) [...] M-F call our Outpatient Nurse Coordinators at [phone]. If you need to speak to someone after 5pm please call [facility] at [phone] and ask the creping machine operator topage the Cardiac Room Service Manager Fellow stock preparation operator. BUSINESS ANALYST documented in this encounter Medications at Time [...] : 1945 Date of Procedure: 05/25/2020 ORDERING CUT FILER: Surgeon(s): Tera Torre MD Procedure(s): LEFT HEART CATHETERIZATION WITH CORONARY ANGIOGRAPHY AND WITH OR WITHOUT LEFT VENTRICULOGRAM [id number] Requested Diagnostic: [x] Coronary Angiograms Only [] [...] time of last dose: - Indications for Room Service Manager visit (Select all that apply): [] [...] ESRD [] Dialysis [] HD []PD: Prior [place]: [] Yes [] No If Yes, Most Recent [place] Date: Family History of Premature CAD: [] [...] Yes, Newly Diagnosed: [] Yes [] No NYHS Class: [] Class I [] Class II [...] 2+; NA 2+ 2+ Impression + Plan [facility] Clinical Frailty Scale: [] 1: Very [...] Tera Torre MD at 05/25/2020 7:28 AM ERP BUSINESS ANALYST BUSINESS ANALYST BUSINESS ANALYST * Pre-Sedation Documentation - Atilio Patel MD - 05/25/2020 8:30 AM CST Sedation Plan ASA 3 - Severe systemic disease Mallampati class: I. Risks, benefits, and alternatives discussed with patient. Cosigned by Tera oTrre MD at 05/25/2020 7:28 AM ERP BUSINESS ANALYST BUSINESS ANALYST BUSINESS ANALYST * Perioperative Nursing Note - Prabha Savage RN - 05/25/2020 8:30 AM ERP BUSINESS ANALYST Pt ambulated in hallway with steady gait, pt denies any pain or discomforts, site noted no bleedingor hematoma noted, positive peripheral pulses, extr warm to touch, pt denies any questions or concerns regarding dc instructions copy of AVS remains with patient. IV removed and gauze dressing in place. Spouse to drive pt home. BUSINESS ANALYST documented in this encounter Plan of Treatment Not on file documented as of this encounter Procedures Procedure Name Priority Date/Time Associated Diagnosis Comments LEFT HEART CATHETERIZATION WITH CORONARY ANGIOGRAPHY AND WITH AND WITHOUT LEFT VENTRICULOGRAM Routine 05/25/2020 8:30 AM ERP BUSINESS ANALYST Chest pain, unspecified type documented in this encounter Results * LEFT HEART CATHETERIZATION WITH CORONARY ANGIOGRAPHY AND WITH AND WITHOUT LEFT VENTRICULOGRAM (05/25/2020 8:30 AM ERP BUSINESS ANALYST) Anatomical Region Laterality Modality X-Ray Angiograph y Impressions 05/26/2020 11:29 AM ERP BUSINESS ANALYST 1. Moderate coronary artery disease with lesions [...] Tera Torre MD Narrative 05/26/2020 11:29 AM ERP BUSINESS ANALYST Procedure: ??CORONARY ANGIOGRAM Patient: Nathan Wagner is a 74 y.o. male : ?? 1945 MR number: [id number] Date of Service: 05/25/2020 Bilingual Call Center Representative: ?? Tera Torre MD Fellow: ?Atilio Patel [...] 2. The patient was brought to the tender labor and placed on the table 3. Bilateral [...] open or otherwise manipulate tablet/capsule., Indications: cardiovascular diseaseIndications:cardiovascular disease Given 05/25/2020 7:30 AM ERP BUSINESS ANALYST 81 mg fentaNYL (SUBLIMAZE) preservative free injection As needed, Starting on Sat05/25/20 at 0757, Intra-Procedure (CV) Given 05/25/2020 8:09 AM ERP BUSINESS ANALYST 25 mcg Given 05/25/2020 7:57 AM ERP BUSINESS ANALYST 25 mcg heparin 1,000 unit/mL injection As needed, Starting on Sat05/25/20 at 0814, Intra-Procedure (CV) Given 05/25/2020 8:14 AM ERP BUSINESS ANALYST 6,000 Units lidocaine (XYLOCAINE) 20 mg/mL (2 %) injection As needed, Starting on Sat05/25/20 at 0801, Intra-Procedure (CV), Indications: Administration of Local AnesthesiaIndications:Administra tion of Local Anesthesia Given 05/25/2020 8:01 AM ERP BUSINESS ANALYST 5 mL Right Radial midazolam (VERSED) 1 mg/mL injection As needed, Starting on Sat05/25/20 at 0757, Intra-Procedure (CV) Given 05/25/2020 8:09 AM ERP BUSINESS ANALYST 1 mg Given 05/25/2020 7:57 AM ERP BUSINESS ANALYST 1 mg sodium chloride 0.9% infusion 200 mL/hr, intravenous, Continuous, Starting on Sat05/25/20 at 0745, Pre-Procedure (CV) New Bag 05/25/2020 7:28 AM ERP BUSINESS ANALYST 200 mL/hr 200 mL/hr verapamiL (ISOPTIN) injection Administer over 2 Minutes, As needed, Starting on Sat05/25/20 at 0811, Intra-Procedure (CV) Given 05/25/2020 8:11 AM ERP BUSINESS ANALYST 2.5 mg documented in this encounter Orders Medications Ordered That Ernst ht Not Have Been Administered Count Last Ordered Date First Ordered Date acetaminophen (TYLENOL) tablet 650 mg 1 ondansetron (ZOFRAN) injection 4 mg 1 05/25 sodium chloride 0.9% infusion 1 05/25/2020 CORE MEASURES Count Last Ordered Date First Ord ered Date REASON FOR NO VTE PROPHYLAXIS AT ADMISSION 1 05/25/2020 documented in this encounter Care Teams Foundation Director Relationship Specialty Start Date End Date Martin López MD [address] [place] [address] PCP - General 06/27/12 Khalif Ca MD [address] [place] [address] Referring Physician Cardiology 04/08/19 documented as of this encounter
--- OUTSIDE RECORDS SUMMARY | 2024-04-20 00:17 | XMS_ITS | Encounter Summary ---
Author Organization [facility] Address [address] [place] [address] Phone Care Team Providers Care Reproducer Name Role Phone Martin López MD Primary Care Provider Khalif Ca MD Unavailable [phone] Reason for Visit * Reason Onset Date Comments Colonoscopy report from 05/13/20 05/23/2020 Encounter Details Date Type Department Care Team (Late st Contact Info) Description 05/23/2020 Documentation [facility] Gastroenterology [address] [facility] 8th [place] [address] [place] [address] Sally Lemons LPN Colonoscopy report from 05/13/20 Social History Tobacco Use Types Packs/Day Years Used Date Smoking Tobacco: Never Smokeless Tobacco: Never Sex and Gender Information Value Date Recorded Sex Assigned at Not on file Legal Sex Male 9:13 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 Pt notified of resultspreviously per documentation on 05/17/20. OGRAPHIC PRESS HELPER documented in this encounter Plan of Treatment Not on file documented as of this encounter Visit Diagnoses Not on filedocumented in this encounter Care Teams Reproducer Relationship Specialty Start Date End Date Martin López MD [address] [place] [address] PCP - General 06/27/12 Khalif Ca MD [address] [facility] [address] [place] [address] Referring Physician Cardiology 04/08/19 documented as of this encounter
--- OUTSIDE RECORDS SUMMARY | 2024-04-20 00:17 | XMS_ITS | Encounter Summary ---
Author Organization [facility] Address [address] [place] [address] Phone Care Team Providers Care Rougher For Cement Name Role Phone Martin López MD Primary Care Provider Khalif Ca MD Unavailable [phone] Encounter Details Date Type Department Care Team (Late st Contact Info) Description 06/09/2020 Telephone [facility] Cardiology Replaced by [facility] 8th [place] [address] [place] [address] Corie Tapia, TREV Social History Tobacco Use Types Packs/Day Years Used Date Smoking Tobacco: Never Smokeless Tobacco: Never Sex and Gender Information Value Date Recorded Sex Assigned at Not on file Legal Sex Male 9:13 PM 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 Worley, PT will start toprol xl 12.5 on 06/14. PT will take last dose of benazepril on 06/13. HEN HAND documented in this encounter Plan of Treatment Not on file documented as of this encounter Visit Diagnoses Not on filedocumented in this encounter Care Teams Rougher For Cement Relationship Specialty Start Date End Date Martin López MD [address] [place] [address] PCP - General 06/27/12 Khalif Ca MD [address] [facility] [address] [place] [address] Referring Physician Cardiology 04/08/19 documented as of this encounter
--- OUTSIDE RECORDS SUMMARY | 2024-04-20 00:17 | XMS_ITS | Encounter Summary ---
Author Organization [facility] Address [address] [place] [address] Phone Care Team Providers Care Car Dispatcher Name Role Phone Martin López MD Primary Care Provider Khalif Ca MD Unavailable [phone] Encounter Details Date Type Department Care Team (Late st Contact Info) Description 06/20/[address] [facility] Surgery [address] [facility] 8th [place] [address] [place] [address] Hien Acevedo, BShannan Social History Tobacco Use Types Packs/Day Years Used Date Smoking Tobacco: Never Smokeless Tobacco: Never Alcohol Use Standard Drinks/Week Comments Yes 0 (1 standard drink = 0.6 oz pur e alcohol) rare Sex and Gender Information Value Date Recorded Sex Assigned at Not on file Legal Sex Male 9:13 PM INTAKE SPECIALIST Gender Identity Male 07/25/2023 3:40 PM CDT Sexual Orientation Straight 10/28/2019 9: 50 AM CDT documented as of this encounter Miscellaneous Notes * Telephone Encounter - Corie Tapia RN - 06/20/2020 1:00 PM INTAKE SPECIALIST Called PT. Yes, he can take them. KE SPECIALIST * Telephone Encounter - Hien Acevedo, BShannan - 06/20/2020 10:03 AM INTAKE SPECIALIST Surgery was delayed to . Can he take a stool softener? KE SPECIALIST documented in this encounter Plan of Treatment Not on file documented as of this encounter Visit Diagnoses Not on filedocumented in this encounter Care Teams Car Dispatcher Relationship Specialty Start Date End Date Martin López MD [address] [place] [address] PCP - General 06/27/12 Khalif Ca MD [address] [place] [address] Referring Physician Cardiology 04/08/19 documented as of this encounter
--- OUTSIDE RECORDS SUMMARY | 2024-04-20 00:17 | XMS_ITS | Encounter Summary ---
Author Organization [facility] Address [address] [place] [address] Phone Care Team Providers Care Toolmaker Grade Three Name Role Phone Martin López MD Primary Care Provider Khalif Ca MD Unavailable [phone] Encounter Details Date Type Department Care Team (Late st Contact Info) Description 05/25/2020 1:30 PM SERVICE DELIVERY MANAGEMENT CONSULTANT Office Visit [facility] Surgery [facility] [facility] [address] [place] [address] Aortic valve stenosis, etiology of cardiac valve disease unspecified (Primary Dx) Social History Tobacco Use Types Packs/Day Years Used Date Smoking Tobacco: Never Smokeless Tobacco: Never Sex and Gender Information Value Date Recorded Sex Assigned at Not on file Legal Sex Male 9:13 PM SERVICE DELIVERY MANAGEMENT CONSULTANT Gender Identity Male 07/25/2023 3:40 PM CDT Sexual Orientation Straight 10/28/2019 9: 50 AM CDT documented as of this encounter Last Filed Vital Signs Vital Sign Reading Time Taken Comments Blood Pressure 138/75 05/25/2020 1:16 PM SERVICE DELIVERY MANAGEMENT CONSULTANT Pulse 82 05/25/2020 1:16 PM SERVICE DELIVERY MANAGEMENT CONSULTANT Temperature 36.4 ??C (97.5 ??F) 05/25/2020 1:16 PM CS T Respiratory Rate - - Oxygen Saturation 98% 05/25/2020 1:16 PM SERVICE DELIVERY MANAGEMENT CONSULTANT Inhaled Oxygen Concentration - - Weight 96.6 kg (213 lb) 05/25/2020 1:16 PM SERVICE DELIVERY MANAGEMENT CONSULTANT Height 175.3 cm (5' 9 ) 05/25/2020 1:16 PM SERVICE DELIVERY MANAGEMENT CONSULTANT Body Mass Index 31.45 05/25/2020 1:16 PM SERVICE DELIVERY MANAGEMENT CONSULTANT documented in this encounter Progress Notes * Francia Worley MD - 05/25/2020 1:[address] Tera Torre, DATE OF CONSULTATION: 05/25/2020 REASON FOR CONSULTATION: severe aortic stenosis CHIEF COMPLAINT: abnormal valve HISTORY OF PRESENTING ILLNESS: Mr. Nathan Wagner is a 74-year-old gentleman who was evaluated at [facility] for severe aortic stenosis. He has been followed for a number of years for his valve disease. His had previously stated that he was experiencing some fatigue. He currently denies any chest pain, shortness of breath, orthopnea, or PND. He normally is very active and works out on a treadmill daily. He states that while he may have experienced some fatigue during the COVID pandemic, he states he otherwise feels fairly well. He was recently admitted to the hospital due to a GI bleed likely secondary to diverticulosis. REVIEW OF SYSTEMS: All other 12 systems reviewed and were negative unless stated in the HPI. PAST MEDICAL HISTORY: Hypertension Hyperlipidemia Glaucoma History of GI bleed - prior H pylori gastric ulcer and diverticulosis Chronic sinusitis PAST SURGICAL HISTORY: Denies ALLERGIES: No Known Allergies HOME MEDICATIONS: Current Outpatient Medications Medication Sig Dispense Refill ??? amLODIPine (NORVASC) 10 mg tablet Take 10 mg by mouth daily ??? aspirin 81 mg enteric coated tablet Take 81 mg by mouth daily ??? atorvastatin (LIPITOR) 10 mg tablet Take 10 mg by mouth daily ??? azelastine 0.15 % (205.5 mcg) spray,non-aerosol Administer 1 spray into each nostril daily as needed ??? benazepriL (LOTENSIN) 5 mg tablet Take 5 mg by mouth daily ??? clobetasol (TEMOVATE) 0.05 % external solution Apply 1 application topically 2 (two) times a day as needed ??? montelukast (SINGULAIR) 10 mg tablet Take 10 mg by mouth nightly ??? travoprost (TRAVATAN Z) 0.004 % drops Administer 1 drop into both eyes nightly ??? metoprolol XL (TOPROL-XL) 25 mg extended release tablet Take 0.5 tablets (12.5 mg total) by mouth daily 15 tablet 1 No current facility-administered medications for this visit. FAMILY HISTORY: No signs of early coronary artery disease SOCIAL HISTORY:. 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 General: No acute distress HEENT: Normocephalic, extraocular muscles intact, anicteric sclera, no oral lesions Neck: No JVD Respiratory: clear to auscultation bilaterally Cardiovascular: Regular rate and rhythm, systolic murmur Abdomen: Soft, non-tender, non-distended Neurologic: alert, oriented x 3, symmetric movement of bilateral upper and lower extremities Skin: no lesions on exposed areas Extremities: No edema bilaterally Psychiatric: normal mood and affect DIAGNOSTIC DATA: I have personally reviewed the following: TTE 04/11/2020: Normal LV function with EF of 75%, severe aortic stenosis with mean gradient of 51 mmHg, peak gradient of 83 mmHg, LVH, no MR or TR Left heart catheterization today: Stenosis in the proximal to mid LAD, mid circumflex, and in the distal RCA prior to the bifurcation Laboratory data 05/12/2020: WBC 7.6, hemoglobin 13.7, platelets 245, creatinine 1.[address] scan 05/03/2020: No contraindications to aortic valve replacement ASSESSMENT AND PLAN: Mr. Nathan Wagner is a 74-year-old gentleman with severe aortic stenosis and at least moderatecoronary artery stenosis. At present, after extensive discussion with him and his , he states that he is not symptomatic. We would like to see him back in the office in 3 months with a repeat echocardiogram. Should he develop symptoms in the interim, we would be happy to re-evaluate him earlier. He would likely need a hemodynamic assessment of his coronary disease prior to deciding on any intervention. He would be a suitable candidate for surgical aortic valve replacement as he is low risk according to the STS risk calculator for mortality. Thank you for this consultation. Please do not hesitate to contact me with any questions at . Sincerely, Francia Worley M.D. plastic surgery coordinator Division of Cardiothoracic Surgery ICE DELIVERY MANAGEMENT CONSULTANT documented in this encounter Plan of Treatment Not on file documented as of this encounter Visit Diagnoses Diagnosis Aortic valve stenosis, etiology of cardiac valve disease unspecified- Primary documented in this encounter Historical Medications * This list may reflect changes made after this encounter. aspirin 81 mg enteric coated tablet Take 1 tablet (81 mg total) by mouth every morning added in this encounter Care Teams Toolmaker Grade Three Relationship Specialty Start Date End Date Martin López MD [address] [place] [address] PCP - General 06/27/12 Khalif Ca MD [address] [place] [address] Referring Physician Cardiology 04/08/19 documented as of this encounter
--- OUTSIDE RECORDS SUMMARY | 2024-04-20 00:18 | XMS_ITS | Encounter Summary ---
Author Organization [facility] Address [address] [place] [address] Phone Care Team Providers Care Visual Merchandising Director Name Role Phone Martin López MD Primary Care Provider Khalif Ca MD Unavailable [phone] Encounter Details Date Type Department Care Team (Late st Contact Info) Description 05/17/2020 Telephone [facility] Gastroenterology Formerly [facility] 8th [place] [address] [place] [address] Brisa Seymour LPN Social History Tobacco Use Types Packs/Day Years Used Date Smoking Tobacco: Never Smokeless Tobacco: Never Sex and Gender Information Value Date Recorded Sex Assigned at Not on file Legal Sex Male 9:13 PM MASTER ESTHETICIAN Gender Identity Male 07/25/2023 3:40 PM CDT Sexual Orientation Straight 10/28/2019 9: 50 AM CDT documented as of this encounter Miscellaneous Notes * Telephone Encounter - Brisa Seymour LPN - 05/17/2020 1:55 PM CST Images from the original note were not included. Leslie Aparicio MD P Wu Elena Alfaro Cc: Ofe Lazo MD; Hans Bunn MD; Ankit Sanders MD ?? He had 5 sub-centimeter tubular adenomas that we removed. If he undergoes aortic valve repair with no complications and continues to be healthy otherwise, he may benefit from surveillance colonoscopyin 3 years. He should discuss this with primary care physician. ----- Spoke with nathan how verbalized understanding of above. Very happy with Dr Aparicio and requesting deborah an IOTapad appt. ER ESTHETICIAN documented in this encounter Plan of Treatment Not on file documented as of this encounter Visit Diagnoses Not on filedocumented in this encounter Care Teams Visual Merchandising Director Relationship Specialty Start Date End Date Martin López MD [address] [facility] [address] [place] [address] PCP - General 06/27/12 Khalif Ca MD [address] [facility] [address] [place] [address] Referring Physician Cardiology 04/08/19 documented as of this encounter
--- OUTSIDE RECORDS SUMMARY | 2024-04-20 00:18 | XMS_ITS | Encounter Summary ---
Author Organization [facility] Healthcare Address [address] [place] [address] Care Team Providers Care Stem Dryer Maintainer Name Role Phone Martin López MD Primary Care Provider Khalif Ca MD Unavailable Encounter Details Date Type Department Care Team (Late st Contact Info) Description 05/13/2020 11:50 AM GLOVE FINISHER Anesthesia Event [facility] [address] [place] [address] Jaimie Oliveira MD [address] [place] [address] Keo Young NP [address] [facility] [id number] [place] [address] Anesthesia Record Procedure Summary Procedure Name Responsible Anesthesiologist Anesthesia Start Time Anesthesia Stop Time COLON REMOVAL SNARE (Colon) Jaimie Olievira MD 05/13/20 1150 05/13/20 1316 Events Date Time Event Comment 05/13/2020 1150 An Start 1154 In Room 1154 An Start Data 1158 Start Supplemental O2 1200 1200 An Induction The patient was reevaluated immediately before moderate or deep sedation use and before anesthesia induction. 1201 Anesthesia Ready 1209 Proc Start 1246 Proc Fin 1255 Quick Note Patient placed on transport monitors. Patient to PACU fully monitored with 02 via simple mask. Patient continues on ELIDA gtt. Titrated off ELIDA gtt in PACU. VSS. Patient tolerated transport well. Dr. Graham notified and updated. 1258 Out of Room 1258 an stop data 1302 Handoff to RN I completed my handoff [...] Patient disposition at the time of handoff: PACU 1316 An Stop 1330 Release from care Meds Name Total propofol 150 mg propofol 221.49 mg phenylephrine 100 mcg/mL 900 mcg phenylephrine infusion (100 mcg/mL) 7.54 mg lidocaine (cardiac) syringe 2 % 100 mg dexmedetomidine vial 4 mcg/mL 20 mcg sodium chloride 0.9% infusion 300 mL * Agents Name O2% N2O O2 * Blood No blood administrations on file. Lines, Drains, and Airways Type Details Placement Removal Peripheral IV Placement Date: 04/29 06/19; Placement Time: 2300; Catheter Size: 20 G; Orientation: Left; Location: Antecubital; Site Prep: Chlorhexidine; Technique: Anatomical landmarks; Inserted by: acr; Insertion Attempts: 1; Removal Date: 03/05/22; Removal Reason: Removal date unknown/not present on admission 05/10/20 2300 by Kvng Bell RN 03/05/22 0000 by Cande Jacobson RN Arterial Line Placement Date: 04/29 09/16; Placemnt Time: 1205 (created via procedure documentation); Size: 20 G; Orientation: Right; Location: Radial; Securement: Taped, Transparent dressing; Removal Date: 03/05/22; Removal Reason: Removal date unknown/not present on admission 05/13/20 1205 by Jaimie Oliveira MD 03/05/22 0000 by Cande Jacobson RN documented in this encounter Social History Tobacco Use Types Packs/Day Years Used Date Smoking Tobacco: Never Smokeless Tobacco: Never Sex and Gender Information Value Date Recorded Sex Assigned at Not on file Legal Sex Male 9:13 PM GLOVE FINISHER Gender Identity Male 07/25/2023 3:40 PM CDT Sexual Orientation Straight 10/28/2019 9: 50 AM CDT documented as of this encounter OR Notes * Anesthesia Postprocedure Evaluation - Jaimie Oliveira MD - 05/13/2020 1:27 PM CST Patient: Nathan Wagner Procedure Summary Date: 05/13/20 Room / Location: [facility] OR POD 5 ROOM 224 / [facility] ENDOSCOPY Anesthesia Start: 1150 Anesthesia Stop: 1316 Procedures: COLON REMOVAL SNARE (N/A Colon) Endo Add On Colon Biopsy (N/A ) Diagnosis: Gastrointestinal hemorrhage, unspecified gastrointestinal hemorrhage type (Gastrointestinal hemorrhage, unspecified gastrointestinal hemorrhage type [K92.2]) Providers: Leslie Aparicio MD Responsible Provider: Jaimie Oliveira MD Anesthesia Type: MAC ASA Status: 3 Anesthesia Type: No value filed. Last vitals BP 154/86 Pulse 72 Temp (!) 35.9 ??C (96.6 ??F) (Temporal) Resp 16 SpO2 99% Anesthesia Post Evaluation Patient location during evaluation: PACU Patient participation: complete - patient participated Level of consciousness: fully awake and arouses bond writer Pain score: 3 Pain management: adequate Airway patency: adequate Evidence of recall: no Anesthetic complications: no Cardiovascular status: acceptable Respiratory status: acceptable and room air Hydration status: acceptable Pt is: normothermic Nausea/Vomiting status: none Comments: Patient discharged to floor. VS returned to baseline. Pre OP 144/90. Phenyl drip off for 30 min. E FINISHER * Anesthesia Procedure Notes - Jaimie Oliveira MD - 05/13/2020 12:25 PM CSTAssociated Order(s): Arterial Line Arterial Line Patient location: pre-op holding Start time: 05/13/2020 12:05 PM Indication: continuous blood pressure monitoring Staff: Placed by: Anesthesiologist: Jaimie Oliveira MD Procedure prep: Prep solution: chlorhexadine/alcohol Prep: provider hat/mask and sterile gloves Skin infiltrated with lidocaine 1%: yes Arterial line: Catheter size: 20 gauge Catheter length: 3/4 inch Catheter type: wire-guided catheter Seldinger technique: yes Laterality: right Site: radial artery Line secured: Tegaderm and tape Results: good blood return Number of attempts: 1 Assessment: Events: patient tolerated procedure well with no complications E FINISHER E FINISHER * Anesthesia Preprocedure Evaluation - Jaimie Oliveira MD - 05/12/2020 12:00 PM CST Images from the original note were not included. [facility] Planning Preoperative Evaluation Record Evaluation type/location: IPAP at [facility] Planned procedure site: Other Request put in with primary team to have procedure performed in POD 2,3, or 5 Date: 05/12/20 Anesthesia Evaluation Nathan Wagner is a 74 y.o. male * No procedures listed * * No Diagnosis Codes entered * HISTORY HPI Nathan Wagner is a 74 y.o. male being evaluated prior to undergoing a colonoscopy for hematochezia. Presented to [facility] on 05/10 after passing copious amounts of bright red blood in his stools. Transferred to [facility] on 05/11 2/2 hx of severe and is currently being worked up for a future TAVR (supposed to be on 05/11 but delayed 2/2 to acute GI bleed). [facility] also includes GI bleed in 2014 2/2 H. Pylori ulcers/p treatment and blood transfusion, HTN, and HLD. Past Medical History Information obtained from: patient and chart. Neurological Pertinent negatives: seizures; neuromuscular disease; CVA/stroke; TIA; CEA; ICA stenosis; dementia/mild cognitive impairment and carotid artery stent Cardiovascular + Hypertension Typical systolic BP - 150 Typical diastolic BP - 80 + Hyperlipidemia + Systolic or diastolic dysfunction w/o CHF (TTE 03/2020- LVEF 75%) Diastolic function: stage I - impaired relaxation LVEF: >70%. + Current valvular disease (TTE 03/2020- LENORA 0.5 cm2- trace AR) - MS - severe; + PAD/Aorta disease (CT TAVR 04/2020- mild to moderate calfications noted in the iliac and femoral arteries) - Pertinent negatives: CAD ; NH ; CABG ; valve replacement; atrial fibrillation; arrhythmia; pacemaker/ICD; DVT/PE; negative for CHF; drug-eluting stent(s); bare metal stent(s) and coronary angioplasty Comments: Followed by ANDRE Ware/CRISTIAN Cards: Last OVN 04/27/2020: Patient with severe , currently asymptomatic. Plan is to perform a TAVR (supposed to be on 05/11 but delayed 2/2 to acute GI bleed). TTE 04/11/2020 SUMMARY: Severe . LENORA 0.5cm2. [...] severe, LENORA and AV gradients are worse. DOPPLER/COLOR FOLOW DOPPLER COMMENTS: Trace AR seen, No MR seen, severe , no MS, normal TV, normal PV. Diastolic function: Impaired Relaxation Peak AV velocity 4.5 m/s Respiratory Pertinent negatives: COPD; asthma; sleep apnea (NAHUN); pulmonary hypertension; no O2 use outside thehospital and non-smoker Comments: CT TAVR 04/2020- numerous sub-centimeter pulmonary nodules noted. Hepatic / Heme Pertinent negatives: liver disease; history of anemia; history of thrombocytopenia and history of Jasmine positive Gastrointestinal Pertinent negatives: GERD and hiatal hernia Comments: Diverticulosis noted on CT in 04/2020. GI bleed in 2014 2/2 H. Pylori ulcer. Renal / Pertinent negatives: renal disease; dialysis and nephrolithiasis Musculoskeletal/Pain Pertinent negatives: chronic pain; chronic opioid use and previous treatment for opioid use disorder Endocrine / Other Pertinent negatives: diabetes mellitus; thyroid disease; obesity (BMI >30); cancer history; rheumatological disease and transplanted organ Functional Capacity Functional capacity: 4-6 METs Comments: Patient able to ambulate 4 city blocks and 2 flights of stairs without significant SOB/CP. Review of Systems + previous transfusion (2014 following GI bleed 2/2 ulcer. Denies negative transfusion reaction hx.) + melena/hematochezia (Copious amounts of bright red blood in the stool starting 1/12.) + vision loss (Corrective lenses) + diarrhea (Diarrhea noted on 05/10) + abdominal pain ( Mild abdominal discomfort 2/2 diarrhea) Pertinent negatives: productive cough; wheezing; SOB; recent cold/flu; fever; chest pain; palpitations; orthopnea; pedal edema; PND; Sickle Cell disease/trait; transfusion reaction; easy bruising; bleeding problems; syncope; dizziness; muscle weakness; chronic pain; numbness/tingling; hard of hearing; heartburn; nausea; dysphagia; dentures/partials; chipped/loose teeth; diaphoresis and no unexpected weight change PAT Summary and Plans Cardiac risk classification of planned procedure: low cardiac risk. Preoperative assessment status: complete pending laboratory results. Initial preoperative evaluation discussed with: Ibrahima Alex MD Additional comments: Nathan Wagner is a 74 y.o. male who is being evaluated prior to undergoing a low cardiac risk surgery. Revised Cardiac Risk Index factors are (none) for a total RCRI of 0 out of 6. Functional capacity is 4-6 METs. Obstructive sleep apnea (NAHUN) screening status is not calculated 2/2 to IPAP assessment. Patient denies hx of NAHUN nor orthopnea. Blood bank needs for day of procedure: No type and screen needed Pending labs/tests include: Pre-op COVID testing. Recent CBC, CMP reviewed without concern. Active T&S available. Of note, patient has a hx of severe and was scheduled to undergo a TAVR on 05/11/20 prior to his current active GI bleed. Due to the severity of the patient's , [facility] has requested that the patient's colonoscopy be performed in Pod 2,3, or 5. Confirmed with Colt from the primary team. Patient's COVID19 status is: Unexposed. The patient currently has no concerning symptoms of COVID19. Plan for pre-procedure COVID19 testing: Surgery scheduled within 24 hours of CPAP visit. Non-[id number] testing performed at [facility] within 24 hours of surgery. Result pending. Surgeon's office notified. Awaiting EKG result for chart completion. Preoperative evaluation performed by Keo Young NP on 05/12/20 at 1:07 PM. . Follow up note EKG reviewed without concern. IPAP complete. Follow-up completed by: Keo Young NP on 05/12/20 at 4:35 PM Patient Active Problem List Diagnosis ??? Aortic valve stenosis ??? Sinus disease ??? Severe aortic stenosis ??? H pylori ulcer ??? History of blood transfusion ??? HTN (hypertension) ??? Acute GI bleeding ??? Hyperlipidemia ??? Gastrointestinal hemorrhage Past Medical History: Diagnosis Date ??? H pylori ulcer with bleeding in 2014 ??? History of blood transfusion 2014 ??? HTN (hypertension) ??? Hyperlipidemia ??? Severe aortic stenosis with a mean gradient 42 mm Hg and EF 55% ??? Sinus disease mild No past surgical history on file. No Known Allergies Taking? Last Dose Start Date End Date Provider atorvastatin (LIPITOR) 10 mg tablet 03/31/15 -- ProviderYasmeen MD azelastine 0.15 % (205.5 mcg) spray,non-aerosol 04/02/16 -- Yasmeen Rodriguez MD clobetasol (TEMOVATE) 0.05 % external solution 04/24/19 -- Yasmeen Rodriguez MD montelukast (SINGULAIR) 10 mg tablet 04/02/16 -- Yasmeen Rodriguez MD travoprost (TRAVATAN Z) 0.004 % drops 03/31/15 -- ProviderYasmeen MD Current Facility-Administered Medications: ??? acetaminophen (TYLENOL) tablet 650 mg, 650 mg, oral, Q4H PRN ??? atorvastatin (LIPITOR) tablet 10 mg, 10 mg, oral, Daily, 10 mg at 05/12/20 0923 ??? latanoprost (XALATAN) 0.005 % ophthalmic solution 1 drop, 1 drop, each eye, Nightly ??? montelukast (SINGULAIR) tablet 10 mg, 10 mg, oral, Nightly ??? ondansetron ODT (ZOFRAN-ODT) disintegrating tablet 4 mg, 4 mg, oral, Q6H PRN OR ondansetron(ZOFRAN) injection 4 mg, 4 mg, intravenous, Q6H PRN ??? sodium chloride 0.9% flush 0.5-20 mL, 0.5-20 mL, intra-catheter, Q8H LYRIC, 10 mL at 05/12/20 0701 ??? sodium chloride 0.9% flush 0.5-20 mL, 0.5-20 mL, intra-catheter, PRN Social History Tobacco Use Smoking Status Never Smoker Smokeless Tobacco Never Used Substance and Sexual Activity Alcohol Use Not on file Substance and Sexual Activity Drug Use Not on file Family History Problem Relation Age of Onset ??? Heart disease Brother ??? Cancer Mother ??? Hypertension Mother ??? Hypertension Brother PAT Physical Exam Airway Exam: Mallampati: II Cervical ROM: FROM TM distance: 3 Cardiovascular Exam: Rate: regular Rhythm: regular Murmur: grade III/ Pulmonary Exam: LCTA, bilat EENT Exam: trachea midline Dental Exam: Appears intact Skin Exam: Skin is warm. Abdominal exam: Abdomen is soft. Bowel sounds are present. Current state: Patient's current state is cooperative and interactive. Additional comments: A&Ox4 Vitals: 05/11/202044 BP: 149/82 Pulse: 98 Resp: 18 Temp: 36.6 ??C (97.9 ??F) SpO2: 97% Relevant diagnostics: ECG(s): 05/12/[address] abnormality HR 85 05/06/2019 SR HR 87 TTE 04/11/2020 SUMMARY: Severe . LENORA 0.5cm2. [...] Impaired Relaxation. As compared to previous study --, remains severe, LENORA and AV gradients are worse. DOPPLER/COLOR FOLOW DOPPLER COMMENTS: Trace AR seen, No MR seen, severe , no MS, normal TV, normal PV. Diastolic function: Impaired Relaxation Peak AV velocity 4.5 m/s Stress Echo 04/04/15 Resting Echo- Bicuspid aortic valve with reduced opening. Mild concentric LVH with normal systolic function (LV EF 70%). Normal RV size and function. - E/A reversal c/w impaired diastolic function. Impression: Contrast enhancement was employed after initial imaging due to sub-optimal quality related to co-morbidity defined by patient's body habitus. maximal exercise stress echocardiogram, NEGATIVE for myocardial ischemia. PFT(s): 05/06/2019 FVC: Pre- 4.68, Ref- 4.09, 114% FEV1: Pre- 3.75, Ref- 3.08, 122% FEV1/FVC- Pre- 80%, Ref- 76% IMPRESSION: There is no ventilatory defect. There is no impairment of alveolar gas exchange by DLCO. There is no impairment of O2 gas exchange at rest by ABG CT TAVR 05/03/2020 IMPRESSION: 1. Severe aortic valvular stenosis. ?? 2. Aortic annulus, and abdominal aortic, common iliac, external iliac and femoral artery measurements in preparation for TAVR procedure as described above. ?? 2. Bilateral subcentimeter solid and groundglass pulmonary nodules. Follow-up CT scan in one year is recommended. Recommend follow up of the Incidental lung nodule. Additional Imaging In [address] PT: 05/12/2020: 13.0 sec INR: 05/12/2020: 1.2 APTT: No results found for requested labs within last 720 hours. Hgb A1C: No results found for requested labs within last 720 hours. CBC RBC: 05/12/2020: 4.79 M/cumm RDW: No results found for requested labs within last 720 hours. MCHC: 05/12/2020: 34.6 g/dL MCH: 05/12/2020: 29.4 pg MCV: 05/12/2020: 85.0 fL Hct: 05/12/2020: 40.7 % Hgb: 05/12/2020: 14.1 g/dL WBC: 05/12/2020: 7.9 K/cumm MPV: 05/12/2020: 11.3 fL Platelets: 05/12/2020: 235 K/cumm RDW CV: 05/12/2020: 13.8 % RDW Sd: 05/12/2020: 43.1 fL BMP Glucose: 05/12/2020: 98 mg/dL Calcium: 05/12/2020: 9.1 mg/dL Sodium: 05/12/2020: 139 mmol/L Potassium: 05/12/2020: 4.1 mmol/L CO2: 05/12/2020: 26 mmol/L Chloride: 05/12/2020: 105 mmol/L BUN: 05/12/2020: 14 mg/dL Creatinine: 05/12/2020: 1.14 mg/dL DOS Physical Exam Medical history, medications, and allergies reviewed. Attestation: With today's edits, I endorse the findings of the anesthesia pre-evaluation assessment dated: 05/12/2020. Airway Exam: Mallampati: II Cervical ROM: FROM TM distance: 3 Cardiovascular Exam: Rate: regular Rhythm: regular Pulmonary Exam: LCTA, bilat EENT Exam: trachea midline Dental Exam: Appears intact Skin Exam: Skin is warm. Current state: Patient's current state is cooperative and interactive. Anesthesia Plan ASA 3 My patient is approved for the Anesthesia Controlled Medication protocol when under care of a BASEBOARD HEATING INSTALLER Planned anesthesia: MAC Invasive Monitors Planned: Invasive monitors planned: arterial line. Induction: Induction: intravenous. Postoperative Plan: No plan for postoperative opioid use. No postoperative mechanical ventilation intended. Patient's planned disposition post procedure is Floor. No trial extubation planned. Informed Consent: Discussed plan with BASEBOARD HEATING INSTALLER. Anesthesia plan and risks discussed with patient. Plan and Consent Comments: Anesthesia Plan, Risk and Complications of oral, nerve, or vascular injury, transfusion related reactions, bleeding, infections, pain, PONV, perioperative cardiac event and stroke discussed and accepted by the patient. He understood and wish to proceed. Questions answered. Consent and Attending signature: I and/or my designee have discussed the anesthesia plan, benefits, possible alternatives, parental presence at time of induction (if indicated), and clinically relevant risks that may include dental injury, unintentional awareness, and/or other complications. The patient and/or parent/legal guardian understand, and agree to proceed. All questions answered. E FINISHER E FINISHER E FINISHER documented in this encounter Plan of Treatment Not on file documented as of this encounter Procedures Procedure Name Priority Date/Time Associated Diagnosis Comments TN AN PROCEDURE PLACEHOLDER Routine 05/13/2020 12:25 PM GLOVE FINISHER documented in this encounter Results * TN AN PROCEDURE PLACEHOLDER (05/13/2020 12:25 PM GLOVE FINISHER) Narrative Jaimie Oliveira MD - 05/13/2020 12:25 PM GLOVE FINISHER Jaimie Oliveira MD ? 05/13/2020 12:25 PM Arterial Line Patient location: pre-op holding Start time: 05/13/2020 12:05 PM Indication: continuous blood pressure monitoring Staff: Placed by: Anesthesiologist: Jaimie Oliveira MD Procedure prep: Prep solution: chlorhexadine/alcohol Prep: provider hat/mask and sterile gloves Skin infiltrated with lidocaine 1%: yes Arterial line: Catheter size: 20 gauge Catheter length: 3/4 inch Catheter type: wire-guided catheter Seldinger technique: yes Laterality: right Site: radial artery Line secured: Tegaderm and tape Results: good blood return Number of attempts: 1 Assessment: Events: patient tolerated procedure well with no complications Jaimie Gross MD ANESTHESIA ORDERABLES Quentin timoteo Result - Final documented in this encounter Visit Diagnoses Not on filedocumented in this encounter Administered Medications Inactive Administered Medications - up to 3 most recent administrations Medication Order MAR Action Action Date Dose Rate Site dexMEDEtomidine (PRECEDEX) 80 mcg/20 mL (4 mcg/mL) in sodium chloride 0.9% (premix) As needed, Starting on Sat05/13/20 at 1205, Anesthesia Intra-op Given 05/13/2020 12:07 PM GLOVE FINISHER 4 mcg Given 05/13/2020 12:06 PM GLOVE FINISHER 8 mcg Given 05/13/2020 12:05 PM GLOVE FINISHER 8 mcg lidocaine (cardiac) (XYLOCAINE) preservative free injection As needed, Starting on Sat05/13/20 at 1200, Anesthesia Intra-op, Indications: Ventricular ArrhythmiasIndications:Ventricular Arrhythmias Given 05/13/2020 12:00 PM GLOVE FINISHER 100 mg phenylephrine (ELIDA-SYNEPHRINE) 1 mg/10 mL (100 mcg/mL) in sodium chloride 0.9% (premix) intravenous, As needed, Starting on Sat05/13/20 at 1200, Anesthesia Intra-op Given 05/13/2020 12:47 PM GLOVE FINISHER 100 mc g Given 05/13/2020 12:29 PM GLOVE FINISHER 50 mcg Given 05/13/2020 12:28 PM GLOVE FINISHER 50 mcg phenylephrine (ELIDA-SYNEPHRINE) 5 mg/50 mL (100 mcg/mL) in sodium chloride 0.9% (premix) Continuous PRN, Starting on Sat05/13/20 at 1200, Anesthesia Intra-op Rate/Dose Change 05/13/2020 1:11 PM GLOVE FINISHER 0.2 mcg/kg/min 11.56 mL/hr Rate/Dose Change 05/13/2020 1:10 PM GLOVE FINISHER 0.4 mcg/kg/min 23. 1 mL/hr Rate/Dose Change 05/13/2020 1:08 PM GLOVE FINISHER 0.6 mcg/kg/min 34. 7 mL/hr propofoL (DIPRIVAN) IV intravenous, Continuous PRN, Starting on Sat05/13/20 at 1200, Anesthesia Intra-op New Bag 05/13/2020 12:00 PM GLOVE FINISHER 50 mcg/kg/min 28.89 mL/hr propofoL (DIPRIVAN) IV intravenous, As needed, Starting on Sat05/13/20 at 1200, Anesthesia Intra-op Given 05/13/2020 12:25 PM GLOVE FINISHER 10 mg Given 05/13/2020 12:22 PM GLOVE FINISHER 10 mg Given 05/13/2020 12:20 PM GLOVE FINISHER 10 mg sodium chloride 0.9% infusion 30 mL/hr, intravenous, Continuous, Starting on Sat05/13/20 at 1145 Rate/Dose Verify 05/13/2020 11:50 AM GLOVE FINISHER New Bag 05/13/2020 11:16 AM GLOVE FINISHER 30 mL/hr 30 mL/hr documented in this encounter Care Teams Stem Dryer Maintainer Relationship Specialty Start Date End Date Martin López MD [address] [place] [address] PCP - General 06/27/12 Khalif Ca MD [address] [place] [address] Referring Physician Cardiology 04/08/19 documented as of this encounter
--- OUTSIDE RECORDS SUMMARY | 2024-04-20 00:18 | XMS_ITS | Encounter Summary ---
Author Organization [facility] Healthcare Address [address] [place] [address] Care Team Providers Care Alarm Technician Name Role Phone Martin López MD Primary Care Provider Khalif Ca MD Unavailable [phone] Encounter Details Date Type Department Care Team (Latest Contact Info) Description 05/11/2020 8:32 PM QUALITY ASSURANCE ASSISTANT - 05/14/2020 10:32 AM QUALITY ASSURANCE ASSISTANT Hospital Encounter [facility] [address] [place] [address] Yeison Horta MD [address] [place] [address] Fermin Kramer MD 1 [facility] [address] [place] [address] Gastrointestinal hemorrhage, unspecified gastrointestinal hemorrhage type (Primary Dx) Discharge Disposition: Discharge to home or self care Social History Tobacco Use Types Packs/Day Years Used Date Smoking Tobacco: Never Smokeless Tobacco: Never Sex and Gender Information Value Date Recorded Sex Assigned at Not on file Legal Sex Male 9:13 PM QUALITY ASSURANCE ASSISTANT Gender Identity Male 07/25/2023 3:40 PM CDT Sexual Orientation Straight 10/28/2019 9: 50 AM CDT documented as of this encounter Last Filed Vital Signs Vital Sign Reading Time Taken Comments Blood Pressure 133/72 05/13/2020 11:25 PM QUALITY ASSURANCE ASSISTANT Pulse 76 05/13/2020 11:25 PM QUALITY ASSURANCE ASSISTANT Temperature 36.7 ??C (98.1 ??F) 05/13/2020 11:[address] Respiratory Rate 18 05/13/2020 11:25 PM QUALITY ASSURANCE ASSISTANT Oxygen Saturation 97% 05/13/2020 11:25 PM QUALITY ASSURANCE ASSISTANT Inhaled Oxygen Concentration - - Weight 96.3 kg (212 lb 4.9 oz) 05/11/2020 11:25 PM QUALITY ASSURANCE ASSISTANT Height 175.3 cm (5' 9 ) 05/11/2020 11:25 PM QUALITY ASSURANCE ASSISTANT Body Mass Index 31.35 05/11/2020 11:25 PM QUALITY ASSURANCE ASSISTANT documented in this encounter Discharge Diagnoses Diagnosis Diverticulosis of large intestine without perforation or abscess with bleeding - DIVERTICULOSIS OF LARGE INTESTINE WITHOUT PERFORATION OR ABSCESS WITH BLEEDING Hyperlipidemia, unspecified - HYPERLIPIDEMIA, UNSPECIFIED Nonrheumatic aortic (valve) stenosis - NONRHEUMATIC AORTIC (VALVE) STENOSIS Essential (primary) hypertension - ESSENTIAL (PRIMARY) HYPERTENSION Unspecified essential hypertension Polyp of colon - POLYP OF COLON Benign neoplasm of colon Other hemorrhoids - OTHER HEMORRHOIDS alf (current) use of aspirin - USP (CURRENT) USE OF ASPIRIN Other nonspecific abnormal finding of lung field - OTHER NONSPECIFIC ABNORMAL FINDING OF LUNG FIELD Contact with and (suspected) exposure to covid-19 - CONTACT WITH AND (SUSPECTED) EXPOSURE TO COVID-19 documented in this encounter Discharge Summaries * Darby Petty MD - 05/14/2020 10:32 AM CST Inpatient Discharge Summary BRIEF OVERVIEW Admitting Provider: Fermin Kramer MD Discharge Provider: Fermin Kramer MD Primary Care Physician at Discharge: Martin López MD [phone] Admission Date: 05/11/2020 Discharge Date: 05/14/2020 Admission Location: [facility] Problems/Diagnoses: Principal Problem: Hematochezia Active Problems: Severe aortic stenosis Hypertension, essential HLD (hyperlipidemia) Resolved Problems: No resolved hospital problems. DETAILS OF HOSPITAL STAY Presenting Problem/History of Present Illness: 74M with PMHx Severe , HTN, hyperlipidemia, prior GI bleed in 2014 2/2 h.pylori who presents with1 day of hematochezia. ?? Symptoms started morning of 05/10 with some bright red blood mixed in with his stool. Has had progression of his bleeding, by evening of 05/10 patient's stool was almost entirely bright red blood with some clots. Some diarrhea, mild cramping. No lightheadedness, no shortness of breath, no nausea, vomiting, fevers, chills. Has a history of GI bleed in 2014, secondary to H pylori ulcer. He required 4units of packed red blood cells, treated for H pylori at that time. Does take a baby aspirin, no systemic anticoagulation. No significant NSAID use. Minimal alcohol. Did have recent CT scan on [facility] showing diverticulosis. Had also been scheduled for cardiac catheterization for pre TAVR evaluation in the setting of severe aortic stenosis that has been asymptomatic.Presented to [facility] on 05/10 for further evaluation. ?? On presentation to [facility] [place] [facility], patient was hemodynamically stable. Admission hemoglobin was 16.4, down to 14.8 which has been stable on 2 checks. GI was consulted at [facility] [place] [facility] but given his severeaortic stenosis decision was made to transfer him to [facility] for his colonoscopy. Transferred evening of 05 11 ?? Hospital Course: 74yo male with history of severe , HTN, previous GI bleed 2/2 H Pylori ulcer, and diverticulosis who presented with hematochezia of onset 05/10. #Hematochezia Onset 05/10, associated with crampy abdominal pain. [facility] then [facility] to [facility] on 05/11. On arrival to [facility], Hgb was 14.8 though still down from previous 16.4. Recent CT scan on May 03 showed colonic diverticulosis and patient has known history of internal hemorrhoids, so those were most suspected etiologies for bleed. While admitted patient passed small amounts of blood and clots, but remained hemodynamically stable. Patient underwent colonoscopy 05/13 which removed 5x 3-8 mm polyps in the descending and transverse colon,and also showed blood in the rectosigmoid colon and diverticulosis in the sigmoid colon, as well asinternal hemorrhoids. No active bleeding diverticula were found but diverticular bleed was felt to be most likely etiology. Pathology was pending upon discharge. Hgb remained stable throughout admission with a slight downtrend throughout stay (Hgb 14.8->14.1->14.9->13.7->14.8->13.1.)He had no repeat bleeding following scope, and vitals remained stable. He was counseled that small amounts of blood will be normal for the next day or two and instructed on return precautions. He wastold to hold ASA for 10-14 days following bleed. He was given the number for Dr. Aparicio as well asa GI referral for outpatient follow-up. He will also follow up with his PCP and repeat CBC if continued bleeding at home. #Aortic Stenosis - He is fairly asymptomatic at baseline, but recent TTE showed valve area 0.5 cm^2. Was scheduled for outpatient cath with Dr. Torre on 05/11/20. Dr. Torre was informed of admission for GIB and will defer procedure. IPAP was consulted for his colonoscopy on 05/13/20 due to high risk of cardiac complications. As above colonoscopy performed without complication. His ASA 81mg was held as an inpatient, and he was instructed to continue to hold this until 10 days following bleeding. #Hypertension, essential: Held home regimen of benazepril and amlodipine in the setting of GI bleed. Instructed to restart on discharge as BP increased on final day of admission to 140s systolic. #Pulmonary nodules - Bilateral subcentimeter solid and groundglass pulmonary nodules seen on CT 05/03/20 - will need f/u in 12 months #Hyperlipidemia Continued home regimen: atorvastatin 10 mg daily. Active Issues Requiring Follow-up: Pathology from colonoscopy Diverticulosis/GI follow-up Aortic Stenosis management Pulm nodules monitoring in 12 months Test Results Pending at Discharge: Pending Labs Order Current Status Surgical pathology In process Operative Procedures Performed: Procedure(s): COLON REMOVAL SNARE Endo Add On Colon Biopsy Other Procedures: none Pertinent Test Results: Lab Results Component Value Date WBC 7.9 05/13/2020 HGB 13.1 05/13/2020 HCT 38.6 (L) 05/13/2020 LABPLAT 224 05/13/2020 ALT 15 05/13/2020 AST 18 05/13/2020 SODIUM 141 05/13/2020 POTASSIUM 4.0 05/13/2020 CHLORIDE 107 05/13/2020 CREATININE 1.11 05/13/2020 BUNSER 13 05/13/2020 CO2 26 05/13/2020 INR 1.2 05/13/2020 Discharge Details Physical Exam at Discharge: Discharge Condition: good Pulse: 76 Resp: 18 BP: 133/72 Temp: 36.7 ??C (98.1 ??F) Weight: 96.3 kg (212 lb 4.9 oz) Pertinent Exam Findings at Discharge: GENERAL: Elderly man appearing recorded age in no acute distress. The patient does not appear ill. Body habitus is obese. Sitting up in bed CHEST: Normal breathing movements. CARDIOVASCULAR: RRR, heart sounds normal. Radial pulses normal. PULMONARY: CTAB, no wheezes, rhonchi, or rales. GASTROINTESTINAL: Atraumatic. Normoactive bowel sounds to auscultation. Soft, nontender, nondistended. No hepatosplenomegaly. No rebound, no guarding. MUSCULOSKELETAL: No lower extremity edema. SKIN: Warm. No rashes. No bruising. NEURO: Patient is alert. Mental status is at baseline. No focal deficits noticed. AAO x4. PSYCH: Mood normal, affect normal. Behavior normal. Thought content normal. Discharge Disposition: Discharge to home or self care Code Status at Discharge: Full Discharge Instructions: You were admitted to the hospital for GI bleeding and transferred to [place] for colonoscopy with anesthesia due to your high risk cardiac condition (aortuic stenosis.) This showed old blood but no active bleeding. You had diverticula (outpouchings in the wall of the colon) were were felt to be thelikely source of the bleed. You also had several polyps which were removed and sent for pathology. We will inform you of those results. If you bleeding reoccurs (increased amounts of bright red blood, feeling lightheaded, tired, fatigued), you should return to the nearest emergency room for re-evaluation. It is normal to have small amounts of blood in your stool for the next day or so. As discusse d you can continue your BP medications at home, but should hold your aspirin for the next 10 days following bleeding episode. You should follow-up with your primary care doctor in a couple weeks as well as discuss results with Dr. Torre regarding plans for TAVR. Dr. Aparicio performed your colonoscopy. His office number is [phone] or [phone], if you would like to schedule an appointmentwith him. Activity Instructions Discharge activity: Resume normal activity Diet Instructions Adult Discharge Diet Diet Type: Return to previous diet Discharge Medications: Current Medications TAKE these medications amLODIPine 10 mg tablet Take 10 mg by mouth daily Commonly known as: NORVASC azelastine 0.15 % (205.5 mcg) spray,non-aerosol Administer 1 spray into each nostril daily benazepriL 5 mg tablet Take 5 mg by mouth daily Commonly known as: LOTENSIN clobetasoL 0.05 % external solution Apply 1 application topically 2 (two) times a day Commonly known as: TEMOVATE Lipitor 10 mg tablet Take 10 mg by mouth daily Generic drug: atorvastatin montelukast 10 mg tablet Take 10 mg by mouth nightly Commonly known as: SINGULAIR Travatan Z 0.004 % drops Administer 1 drop into both eyes nightly Generic drug: travoprost Outpatient Follow-Up: Contact Information for Follow-ups Martin López MD Specialty: Family Medicine Relationship: PCP - [facility] [address] [place] [address] Next Steps: Follow up [facility] (All Locations) Next Steps: Follow up Questions: Please select the performing region: [facility] (All Locations) # of visits: 1 Referral Status: Pending Authorization Cosigned by Fermin Kramer MD at 05/15/2020 2:12 PM QUALITY ASSURANCE ASSISTANT ITY ASSURANCE ASSISTANT ITY ASSURANCE ASSISTANT Associated attestation - Fermin Kramer MD - 05/15/2020 2:12 PM QUALITY ASSURANCE ASSISTANT I have seen and examined the patient on 05/14/2020. I agree with the findings and plan of care as documented in the resident's/fellow's note.. documented in this encounter Discharge Instructions * Discharge Instructions* Darby Petty MD - 05/14/2020 9:05 AM QUALITY ASSURANCE ASSISTANT You were admitted to the hospital for GI bleeding and transferred to [place] for colonoscopy with anesthesia due to your high risk cardiac condition (aortuic stenosis.) This showed old blood but no active bleeding. You had diverticula (outpouchings in the wall of the colon) were were felt to be the likely source of the bleed. You also had several polyps which were removed and sent for pathology. We will inform you of those results. If you bleeding reoccurs (increased amounts of bright red blood,feeling lightheaded, tired, fatigued), you should return to the nearest emergency room for re-evaluation. It is normal to have small amounts of blood in your stool for the next day or so. As discussed you can continue your BP medications at home, but should hold your aspirin for the next 10 days following bleeding episode. You should follow-up with your primary care doctor in a couple weeks as well as discuss results with Dr. Torre regarding plans for TAVR. Dr. Aparicio performed your colonoscopy. His office number is [phone] or [phone], if you would like to schedule an appointment with him. Gastrointestinal Bleeding WHAT YOU NEED TO KNOW: Gastrointestinal (GI) bleeding may occur in any part of your digestive tract. This includes your esophagus, stomach, intestines, rectum, or anus. Bleeding may be mild to severe. Your bleeding may begin suddenly, or start slowly and last for a longer period of time. Bleeding that lasts for a longer period of time is called chronic GI bleeding. DISCHARGE INSTRUCTIONS: Call 911 for any of the following: ?? You have shortness of breath or trouble breathing. ?? You faint or lose consciousness. ?? You have chest pain. Return to the emergency department if: ?? You feel dizzy or are too weak to stand. ?? Your heart is beating faster than usual. ?? You vomit blood, or your vomit looks like coffee grounds. ?? You have blood in your bowel movement. ?? You have abdominal pain or swelling. Contact your healthcare provider if: ?? You have bowel movements that are tarry or black. ?? You have nausea or are vomiting. ?? You have heartburn. ?? You have questions or concerns about your condition or care. Activity: Rest as directed. Ask when you can return to your usual activities, such as work. Slowly do more each day. Nutrition: Ask if you need to be on a special diet. A special diet can help treat GI conditions andprevent problems such as GI bleeding. Eat small meals more often while your digestive system heals.Avoid or limit caffeine and spicy foods. Also avoid foods that cause heartburn, nausea, or diarrhea. Prevent GI bleeding: ?? Manage GI conditions as directed. Examples of GI conditions include gastroesophageal reflux, peptic ulcer disease, and ulcerative colitis. Take all medicines for these conditions as directed. ?? Limit or do not take NSAIDs. Ask your healthcare provider if it is safe for you to take NSAIDs. NSAIDs can increase your risk for ulcers and GI bleeding. ?? Do not drink alcohol. Alcohol can cause ulcers and esophageal varices. Esophageal varices are swollen blood vessels in your esophagus. Over time the blood vessels become weak and may bleed. ?? Do not smoke. Nicotine and other chemicals in cigarettes and cigars can increase your risk for ulcers. Ask your healthcare provider for information if you currently smoke and need help to quit. E-cigarettes or smokeless tobacco still contain nicotine. Talk to your healthcare provider before you use these products. Follow up with your healthcare provider as directed: You may need to return for a colonoscopy, endoscopy, or other tests. These tests can make sure you do not have more bleeding. Write down your questions so you remember to ask them during your visits. ?? 2017 [employer] Information is for End User's use only and may not be sold, redistributed or otherwise used for commercial purposes. All illustrations and images included in CareNotes?? are the copyrighted property of [employer], [employer]. or [employer]. The above information is an medicaid collection specialist only. It is not intended as medical advice for individual conditions or treatments. Talk to your doctor, nurse or pharmacist before following any medical regimen to see if it is safe and effective for you. ITY ASSURANCE ASSISTANT * Appointments* Delphine Clinton RN - 05/13/2020 9:32 AM QUALITY ASSURANCE ASSISTANT This is the earliest appointment with your PCP, Please bring discharge paperwork with list of medicines, insurance card and photo ID to appointment. Please arrive at least 15 minutes early prior to appointment. If you are unable to keep this appointment, it is very important you call to reschedule. ITY ASSURANCE ASSISTANT documented in this encounter Medications at Time of Discharge jeremyst (SINGULAIR) 10 mg tablet Take 1 tablet [...] documented in this encounter Progress Notes * Darby Petty MD - 05/14/2020 7:39 AM CST Internal Medicine Daily Progress Subjective Summary: Mr. Marizol Wagner is a 74 y.o. man with a hx of severe , HTN, hyperlipidemia, prior GI bleed in 2014 2/2 h.pylori who presents with hematochezia. Interval History: NAEON -s/p colonoscopy yesterday with multiple polyps (removed) and diverticulosis wo active bleeding -Hgb stable 13.7 to 14.8 to 13.1 (likely lab variation as no repeat bleeding per patient) This AM patient feels well. Has not yet had a BM but passing gas. No acute complaints and feels ready to go home. Objective Scheduled Medications: ??? atorvastatin, 10 mg, oral, Daily ??? latanoprost, 1 drop, each eye, Nightly ??? montelukast, 10 mg, oral, Nightly ??? sodium chloride 0.9%, 0.5-20 mL, intra-catheter, Q8H LYRIC ??? sodium chloride 0.9%, 0.5-20 mL, intra-catheter, Q8H LYRIC Continuous Medications: PRN Medications: ??? acetaminophen ??? ondansetron ODT OR ondansetron ??? sodium chloride 0.9% ??? sodium chloride 0.9% Vitals: Most Recent : Vitals: 05/13/20 2325 BP: 133/72 Pulse: 76 Resp: 18 Temp: 36.7 ??C (98.1 ??F) SpO2: 97% 24hr Min/Max: Temp Min: 35.9 ??C (96.6 ??F) Max: 36.8 ??C (98.2 ??F) Pulse Min: 64 Max: 89 BP Min: 111/87 Max: 154/86 Resp Min: 13 Max: 22 SpO2 Min: 96 % Max: 100 % I/O: I/O last 2 completed shifts: In: 412.6 [I.V.:412.6] Out: - No intake/output data recorded. Physical Exam: GENERAL: Elderly man appearing recorded age in no acute distress. The patient does not appear ill. Body habitus is obese. Sitting up in bed CHEST: Normal breathing movements. CARDIOVASCULAR: RRR, heart sounds normal. Radial pulses normal. PULMONARY: CTAB, no wheezes, rhonchi, or rales. GASTROINTESTINAL: Atraumatic. Normoactive bowel sounds to auscultation. Soft, nontender, nondistended. No hepatosplenomegaly. No rebound, no guarding. MUSCULOSKELETAL: No lower extremity edema. SKIN: Warm. No rashes. No bruising. NEURO: Patient is alert. Mental status is at baseline. No focal deficits noticed. AAO x4. PSYCH: Mood normal, affect normal. Behavior normal. Thought content normal. Lab/Radiology/Diagnostic Review: Recent Labs Lab Units 05/13/20 2327 05/13/20 1019 05/12/20 2211 WBC K/cumm 7.9 7.4 7.6 HEMOGLOBIN g/dL 13.1 14.8 13.7 PLATELETS K/cumm 224 232 245 Recent Labs Lab Units 05/13/20215805/12/20221005/12/20 0109 SODIUM mmol/L 141 139 139 POTASSIUM PLASMA mmol/L 4.0 4.1 4.1 CHLORIDE mmol/L 107 105 105 CO2 mmol/L 26 28 26 BUN SERUM mg/dL 13 12 14 CREATININE mg/dL 1.11 1.08 1.14 CALCIUM mg/dL 9.2 9.1 9.1 Recent Labs Lab Units 05/13/20215805/12/20221005/12/20 0109 ALBUMIN g/dL 3.8 4.1 4.0 AST Units/L 18 15 20 ALT Units/L 15 16 16 No lab exists for component: TROP, TG Recent Labs Lab Units 05/13/20215805/12/20221005/12/209 05/11/20 0509 05/10/20 1919 GLUCOSE mg/dL 108 104 98 130 115 Microbiology: No results found for: MICROBIOLOGY Additional pertinent laboratory testing: none Imaging Results: No results found. I have personally reviewed the above laboratory and imaging results. Assessment/Plan HLD (hyperlipidemia) Assessment & Plan Home regimen: atorvastatin 10 mg daily. Plan: - continue atorvastatin Hypertension, essential Assessment & Plan Home regimen: benazepril and amlodipine. Plan: - HOLD anti-hypertensives in setting of GIB, okay to restart at home Severe aortic stenosis Assessment & Plan Was scheduled for outpatient cath with Dr. Torre on 05/11/20. Asymptomatic. IPAP was consulted forhis colonoscopy on 05/13/20. Plan: - avoid large volume boluses - continue to monitor * Hematochezia Assessment & Plan 1 day history of hematochezia increasing in volume. Hb 14.8 from 16.4. Has only had some symptoms of crampy abdominal pain but otherwise appears well. Does have evidence of diverticulosis on recent CT scan, so this could be inciting etiology. Also in the setting of severe aortic stenosis, acquired von Willebrand's disease and AVM bleed is also a possibility. Plan: - Hold ASA for 10-14 days following bleeding - Colonoscopy 05/13/20: multiple polyps (removed) and diverticulosis wo active bleeding, follow up path -Plan to [place] home day with strict return precautions Code Status: Full Code Diet: Adult Diet Regular DVT Prophylaxis: SCDs given high risk for bleeding Access: PIV Dispo: home Darby Petty MD Internal Medicine, PGY-2 Cosigned by Fermin Kramer MD at 05/15/2020 2:12 PM QUALITY ASSURANCE ASSISTANT ITY ASSURANCE ASSISTANT ITY ASSURANCE ASSISTANT Associated attestation - Fermin Kramer MD - 05/15/2020 2:12 PM QUALITY ASSURANCE ASSISTANT I have seen and examined the patient on 05/14/2020. I agree with the findings and plan of care as documented in the resident's/fellow's note.. * Ankit Machaod MD - 05/14/2020 6:51 AM CST GENERAL GI SIGN OFF RECOMMENDATIONS Date of Sign Off: 05/14/20 Diagnosis: Diverticular bleeding PMD: Martin López MD Inpatient GI Attending: Dr. Sanchez Summary of Consultation: 74 y.o. male with pmh severe aortic stenosis, hypertension, history of GI bleed thought to be secondary to an H pylori induced ulcer, known diverticulosis who presents for evaluation of BRBPR. HGB 14from 16, HDS . He was transferred here. Colonoscopy 05/13: blood in sigmoid, pandiverticulosis, no active bleeding identified. 5 polyps resected. # Diverticular bleeding - No Hb stable and no bleeding 05/14 - Follow path from polyps, based on this next colonoscopy to be decided - If recurrent bleeding will need CTA to localize and target treatment We will sign off. Please notify GI team with any questions. Thank you for involving us in the care of this patient. If you have any questions, please call the general GI phone during weekdays or the general GI phone during after hours and weekends. Ankit Machado M.D. GI Fellow - PGY 4 Cosigned by Ariel Sanchez MD at 05/14/2020 3:29 PM QUALITY ASSURANCE ASSISTANT ITY ASSURANCE ASSISTANT ITY ASSURANCE ASSISTANT Associated attestation - Ariel Sanchez MD - 05/14/2020 3:29 PM QUALITY ASSURANCE ASSISTANT The resident/fellow saw and examined the patient, we discussed their findings, and I am in agreement with the plan based on the discussion with the resident/fellow. I did not personally examine the patient. * Yeison Ann MD - 05/13/2020 11:59 AM CST Internal Medicine Daily Progress Subjective Summary: Mr. Marizol Wagner is a 74 y.o. man with a hx of severe , HTN, hyperlipidemia, prior GI bleed in 2014 2/2 h.pylori who presents with hematochezia. Interval History: - GI and IPAP consulted yesterday - plan for colonoscopy today - completed bowel prep overnight - no events overnight - afebrile, vital signs stable and within normal limits - Hgb stable at 14.8 Objective Scheduled Medications: ??? [JUN Hold] atorvastatin, 10 mg, oral, Daily ??? [JUN Hold] latanoprost, 1 drop, each eye, Nightly ??? [JUN Hold] montelukast, 10 mg, oral, Nightly ??? [JUN Hold] sodium chloride 0.9%, 0.5-20 mL, intra-catheter, Q8H LYRIC ??? sodium chloride 0.9%, 0.5-20 mL, intra-catheter, Q8H LYRIC Continuous Medications: ??? sodium chloride 0.9%, 30 mL/hr, Last Rate: 30 mL/hr (05/13/20 1116) PRN Medications: ??? [JUN Hold] acetaminophen ??? [JUN Hold] ondansetron ODT OR [JUN Hold] ondansetron ??? [JUN Hold] sodium chloride 0.9% ??? sodium chloride 0.9% Vitals: Most Recent : Vitals: 05/13/20 1115 BP: 144/90 Pulse: 84 Resp: 13 Temp: SpO2: 97% 24hr Min/Max: Temp Min: 36.6 ??C (97.9 ??F) Max: 36.8 ??C (98.2 ??F) Pulse Min: 84 Max: 89 BP Min: 135/90 Max: 144/90 Resp Min: 13 Max: 20 SpO2 Min: 96 % Max: 100 % I/O: No intake/output data recorded. No intake/output data recorded. Physical Exam: GENERAL: Elderly man appearing recorded age in no acute distress. The patient does not appear ill. Body habitus is obese. CHEST: Normal breathing movements. CARDIOVASCULAR: RRR, heart sounds normal. Radial pulses normal. PULMONARY: CTAB, no wheezes, rhonchi, or rales. GASTROINTESTINAL: Atraumatic. Normoactive bowel sounds to auscultation. Soft, nontender, nondistended. No hepatosplenomegaly. No rebound, no guarding. MUSCULOSKELETAL: No lower extremity edema. SKIN: Warm. No rashes. No bruising. NEURO: Patient is alert. Mental status is at baseline. No focal deficits noticed. AAO x4. PSYCH: Mood normal, affect normal. Behavior normal. Thought content normal. Lab/Radiology/Diagnostic Review: Recent Labs Lab Units 05/13/20 1019 05/12/20221005/12/20 1212 WBC K/cumm 7.4 7.6 9.0 HEMOGLOBIN g/dL 14.8 13.7 14.9 PLATELETS K/cumm 232 245 272 Recent Labs Lab Units 05/12/20221005/12/20 0109 05/11/20 0509 SODIUM mmol/L 139 139 140 POTASSIUM PLASMA mmol/L 4.1 4.1 3.7 CHLORIDE mmol/L 105 105 105 CO2 mmol/L 28 26 24 BUN SERUM mg/dL 12 14 13 CREATININE mg/dL 1.08 1.14 0.95 CALCIUM mg/dL 9.1 9.1 9.1 Recent Labs Lab Units 05/12/20 22105/12/20 0109 05/10/20 1919 ALBUMIN g/dL 4.1 4.0 4.8 AST Units/L 15 20 16 ALT Units/L 16 16 21 No lab exists for component: TROP, TG Recent Labs Lab Units 05/12/20 2211 05/12/20 0109 05/11/20 0509 05/10/20 1919 GLUCOSE mg/dL 104 98 130 115 Microbiology: No results found for: MICROBIOLOGY Additional pertinent laboratory testing: none Imaging Results: No results found. I have personally reviewed the above laboratory and imaging results. Assessment/Plan Severe aortic stenosis Assessment & Plan Was scheduled for outpatient cath with Dr. Torre on 05/11/20. Asymptomatic. IPAP was consulted forhis colonoscopy on 05/13/20. Plan: - avoid large volume boluses - continue to monitor * Hematochezia Assessment & Plan 1 day history of hematochezia increasing in [...] GI consult recs - ADAT after colonoscopy HLD (hyperlipidemia) Assessment & Plan Home regimen: atorvastatin 10 mg daily. Plan: - continue atorvastatin Hypertension, essential Assessment & Plan Home regimen: benazepril and amlodipine. Plan: - HOLD anti-hypertensives in setting of GIB Code Status: Full Code Diet: NPO Diet Other (specify), Sips with meds; Except for golytely bowel prep DVT Prophylaxis: SCDs given high risk for bleeding Access: PIV Dispo: home Yeison Ann MD PGY-1 Internal Medicine 05/13/2020 12:07 PM [phone] Cosigned by Fermin Kramer MD at 05/13/2020 2:44 PM QUALITY ASSURANCE ASSISTANT ITY ASSURANCE ASSISTANT ITY ASSURANCE ASSISTANT Associated attestation - Fermin Kramer MD - 05/13/2020 2:44 PM QUALITY ASSURANCE ASSISTANT I have seen and examined the patient on 05/13/20. I agree with the findings and plan of care as documented in the resident's/fellow's note.. * Delphine Clinton RN - 05/12/2020 9:35 AM CST LAYO Initial Assessment Interview Note Information Obtained From: Patient(at bedside with PPE) (05/12/20932) Admission Source: [facility] Impression: Hematochezia Plan Includes: Labs, imaging, GI consult Primary Source of Transportation: [place] Wagner [phone] to provide transportation at discharge Health Insurance Coverage: Medicare A, [place] Prescription Coverage: Yes Pharmacy: [facility] Primary Care Provider: Martin López MD Prior to Admission: Primary Caregiver: Self Support System: Spouse/Significant Other Support system contact info (name, phone, availablity): Mary Kay Wagner [phone] Home Care Services: No Durable Medical Equipment: None Living Arrangements: Spouse/significant other Type of Residence: Private residence Steps in home? : Yes, Inside home Number of steps inside:: 10 steps (05/12/20932) Potential discharge needs include: No anticipated discharge needs Dialysis: Dialysis: No (05/12/20932) Behavioral Health Services: Behavioral Health Services: No (05/12/20932) Patient expects to be Discharged to: Private residence, (05/12/20932) Additional Information: Patient's Identified Problem/Goal Problem: Ensure acute medical [...] Collaboration with patient, MD, direct care nurse, Headlight Assembler, Nurse Coordinator and other members of the health care team to assure needed interventions completed. 2. Return patient to optimal level of self-care post discharge. 3. [employer] will follow for Discharge Planning - interventions [...] are in agreement with the aftercare plan. Delphine Clinton RN ITY ASSURANCE ASSISTANT documented in this encounter H&P Notes * Leslie Aparicio MD - 05/13/2020 11:50 AM CST I have reviewed the H&P, examined the patient, and endorse the findings as written. Patient is here for Procedure(s): COLONOSCOPY OBJECTIVE: Vitals: Vitals: 05/12/20 1357 05/12/20 2045 05/13/20 1110 05/13/20 1115 BP: 135/90 137/89 144/90 144/90 BP Location: Right arm Right arm Patient Position: Sitting HOB 30 degrees Pulse: 86 84 89 84 Resp: 20 20 19 13 Temp: 36.8 ??C (98.2 ??F) 36.7 ??C (98.1 ??F) 36.6 ??C (97.9 ??F) TempSrc: Oral Oral Temporal SpO2: 100% 97% 96% 97% Weight: Height: Physical Exam: Airway: No significant abnormality. Cardiac: No significant abnormality. Pulmonary: No significant abnormality. Neurological: No significant abnormality. Gastrointestinal: No significant abnormality. ASA Score: per Anesthesia Sedation/Anesthesia Plan: per Anesthesia The risks and complications of the procedure have been explained to the patient. Informed consent was signed. Impression and plan: Will proceed with the planned procedure for the reasons stated above. ITY ASSURANCE ASSISTANT Source Note - Kel Dee MD PhD - 05/12/2020 9:10 AM QUALITY ASSURANCE ASSISTANT General GI Initial Consult Chief complaint: Hematochezia Reason for consult: Hematochezia Requesting provider: Dr. Fermin Kramer HPI: Marizol Wagner is a 74 y.o. male with a PMH of severe , HTN, previous GI bleed due to H. pylori ulcer, diverticulosis who presents with the chief complaint of hematochezia. 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 He was admitted at [facility] in [place] in 2014 for melenic stool requiring 4u pRBC transfused; he was found to have peptic ulcer disease due to H. pylori infection. This was treated and hehas not had recurrence of melena since then. On 05/09 he was in his [employer] celebrating his 's birthday and had Spanish food, cake, and several alcoholic drinks. The next morning, he had a bowel movement consisting of brown stool mixed with bright red blood and dark red clots. He denied any obvious inciting events or trauma. He had 3 additional episodes during that day and was instructed to present to OSH. He denied fevers, chills, nausea, vomiting, constipation, SOB, cough, myalgias, change in taste smell, chest pain, abdominal pain, cramping, itching and discomfort associated with BMs. He denies any dizziness, lightheadedness, or syncopal events. He denies unintentional weight loss, change in appetite, night sweats, malaise, and fati hector. He has a history of internal hemorrhoids for which he occasionally uses topical hydrocortisone on his anus but not within. He endorses a diet with fewer vegetables but continues to have bowel movements 1-2x per day that are formed stool; not loose, watery, or soft. He denies laxative use. He deniesprevious hematochezia prior to this beginning on Saturday. He is on ASA 81mg daily; denies use of warfarin, apixaban, clopidogrel, ticagrelor. Denies any use of herbal products. His last colonoscopy was 5 years ago at [facility] in [place]; he has been having them every 5 years due to polyps that have been benign. At that time, he reports that he was noted to have internal hemorrhoids and diverticulosis. Of note, he was being worked up for possible TAVR due to critical with recent TTE showing LENORA 0.5cm2. CT TAVR performed on 05/03/20 showed colonic diverticulosis without evidence of acute diverticulitis and bilateral subcentimeter solid and groundglass pulmonary nodules. On arrival at [facility] ED with VS T 36.7, HR 101, RR 18, BP 163/100 and SpO2 97%. Labs with CMP WNL, CBC with Hgb 14.8 from apparent baseline of 16.4, Plt 235. PT 13.0, INR 1.2. Haptoglobin 51.0. He was evaluated by GI there and recommended for colonoscopy, but was transferred to [facility] becauseof the higher risk of anesthesia given his severe . Past Medical History: Diagnosis Date ??? H pylori ulcer with bleeding in 2014 ??? Hemorrhoid ??? History of blood transfusion 2014 ??? HTN (hypertension) ??? Hyperlipidemia ??? Severe aortic stenosis with a mean gradient 42 mm Hg and EF 55% ??? Sinus disease mild No past surgical history on file. Medications Prior to Admission Medication Sig Dispense Refill Last Dose ??? atorvastatin (LIPITOR) 10 mg tablet Take 10 mg by mouth daily ??? azelastine 0.15 % (205.5 mcg) spray,non-aerosol Administer 1 spray into each nostril daily ??? clobetasol (TEMOVATE) 0.05 % external solution Apply 1 application topically 2 (two) times a day ??? montelukast (SINGULAIR) 10 mg tablet Take 10 mg by mouth nightly ??? travoprost (TRAVATAN Z) 0.004 % drops Administer 1 drop into both eyes nightly No Known Allergies Social History Tobacco Use ??? Smoking status: Never Smoker ??? Smokeless tobacco: Never Used Substance Use Topics ??? Alcohol use: Not on file ??? Drug use: Not on file Family History Problem Relation Age of Onset ??? Heart disease Brother ??? Cancer Mother ??? Hypertension Mother ??? Hypertension Brother ??? Anesthesia problems Neg Hx Review of Systems: Review of systems per HPI and otherwise all other systems are negative Vitals: 24hr Min/Max: Temp Min: 36.3 ??C (97.3 ??F) Max: 36.8 ??C (98.3 ??F) Pulse Min: 76 Max: 98 BP Min: 135/83 Max: 149/82 Resp Min: 16 Max: 20 SpO2 Min: 97 % Max: 100 % Most Recent : Vitals: 05/12/20 1357 BP: 135/90 Pulse: 86 Resp: 20 Temp: 36.8 ??C (98.2 ??F) SpO2: 100% No intake/output data recorded. No intake/output data recorded. Objective Physical Exam: General Appearance: Alert, cooperative, no distress. Overweight. HEENT: Normocephalic, without obvious abnormality, atraumatic. No scleral icterus or conjunctival pallor. Neck: No palpable lymphadenopathy. Lungs: Clear to auscultation bilaterally, respirations unlabored. Cardiovascular: Regular rate and rhythm, IV/ crescendo decrescendo systolic murmur that radiates into his abdomen, best heard at R sternal border. No rubs or gallops. Abdomen: Soft, non-tender, bowel sounds active all four quadrants, no masses, no organomegaly, non-distended. Rectal exam with minimal amounts of dark red blood, no external hemorrhoids noted. Extremities: No cyanosis or edema, no clubbing Skin: No rash Neurologic: Alert and oriented x 4. No focal deficits. CN II-XII intact. Psychiatric: Normal mood and affect Lab/Radiology/Diagnostic Review: Recent Labs Lab Units 05/12/20 1212 05/12/20 0434 05/12/20 0109 05/11/20 1109 05/11/20 0509 05/10/20 1919 05/10/20 1919 WBC K/cumm 9.0 7.9 -- 7.6 -- < > 9.5 HEMOGLOBIN g/dL 14.9 14.1 -- 14.8 -- < > 16.4 HEMATOCRIT % 43.8 40.7 -- 44.7 -- < > 48.0 PLATELETS K/cumm 272 235 -- 247 -- < > 255 SODIUM mmol/L -- -- 139 -- 140 -- 139 POTASSIUM PLASMA mmol/L -- -- 4.1 -- 3.7 -- 3.8 CHLORIDE mmol/L -- -- 105 -- 105 -- 102 CO2 mmol/L -- -- 26 -- 24 -- 25 ANIONGAP mmol/L -- -- 8 -- 11 -- 12 GLUCOSE mg/dL -- -- 98 -- 130 -- 115 BUN SERUM mg/dL -- -- 14 -- 13 -- 13 CREATININE mg/dL -- -- 1.14 -- 0.95 -- 1.00 CALCIUM mg/dL -- -- 9.1 -- 9.1 -- 9.5 ALBUMIN g/dL -- -- 4.0 -- -- -- 4.8 BILIRUBIN TOTAL mg/dL -- -- 0.9 -- -- -- 0.7 ALK PHOS Units/L -- -- 65 -- -- -- 76 ALT Units/L -- -- 16 -- -- -- 21 AST Units/L -- -- 20 -- -- -- 16 INR -- -- 1.2 -- -- -- -- < > = values in this interval not displayed. Results for orders placed during the hospital encounter of 05/03/20CT TAVRNarrativeEXAMINATION: Heart CT and CTA abdomen and pelvis with contrast. History: Severe aortic stenosis, pre-TAVR procedure.Technique: Heart CT and CT angiogram of the abdomen and pelvisperformed during administration of 125 mL of Optiray 350,intravenously per TAVR Protocol. Images were transferred to anindependent workstation for additional 3D post-processing. FINDINGS: Annulus and Thoracic Aortic Measurements (in systole):Aortic valve annulus: Area 868 mm2: circumference 113 mm; 40 mmmaximum diameter x 31 mm minimumdiameter. Sinuses of Valsalva: 34.9 x 38.0 x 36.5 mmSinotubular junction: 33.6 mm diameter sagittalx 34.0 mm diametercoronal.There is Mild left ventricular outflow tract calcification.There is no mitral annular calcification. Distance to RCA ostium from aortic valve annulus: 20.0 mm Distance to left main ostium from annulus: 13.3 mmDeployment angle: 0 ROMANO, 9 CaudalAortic valve calcium score: 3635 .Abdominal Aortic and Pelvic Arterial Smallest Diameter Measurements(made from centerline curved MPRs): Infrarenal aorta: 14.5 mm x 15.7 mm Right common iliac artery: 9.0 mm x 10.9 mm. There is Moderatecalcification. Left common iliac artery: 8.9 mm x 10.1 mm . There is Moderate calcification.There is Mild tortuosity of the bilateral common iliac arteries. This is equal in distribution.Right external iliac artery: 9.2 mm x 9.6 mm. There is Mildcalcification. Left external iliac artery: 8.0 mm x 9.5 mm. There is Mildcalcification.There is Severe tortuosity of the right external iliac artery andmild tortuosity of the left external iliac artery. Right common femoral artery: 9.5 x 9.8 mm. There is Mildcalcification.Left common femoral artery: 10.6 x 10.8 mm. There is Mildcalcification.There is no tortuosity of the bilateral femoral arteries. This isequal in distribution.Other findings: Inci dental note is made of an azygos fissure. There are bilateralpulmonary nodules, some of which are solid and others groundglass.For reference a left lower lobe groundglass pulmonary nodule measures7 mm (table position -755.0). A 9 mm right upper lobe pulmonarynodule is partially solid and partially groundglass (table position-819). No pleural effusion or pneumothorax.Heart size is normal. There isno pericardial effusion. There iscoronary artery disease. There is left ventricular hypertrophy.No supraclavicular or axillary lymphadenopathy. Prominent mediastinallymph nodes are likely reactive.The visualized liver and spleen appear normal. The gallbladder,pancreas, and adrenal glands appear norm al.Cysts and other hypoattenuating lesions which are too small tocharacterize are present within both kidneys. No hydronephrosis.The urinary bladder is decompressed. The prostate containscalcifications.There is colonic diverticulosis without evidence of acutediverticulitis. No evidence of bowel obstruction.No abdominal or pelvic lymphadenopathy.Multilevel degenerative changes are present throughout the spine. Noaggressive osseous lytic or blastic lesion. Impression1. Severe aortic valvular stenosis.2. Aortic annulus, and abdominal aortic, common iliac, external iliacand femoral artery measurements in preparation for TAVR procedure asdescribed above.2. Bilateral subcentimeter solid and groundglass pulmonary nodules.Follow-up CT scan in one year is recommended. Recommend follow up ofthe Incidental lung nodule Additional Imaging In 12 Months with chestCT. Dictated by: Nallely Dee M.D.The radiology attending physician has personally reviewed this study,and had reviewed and/or edited this written report and agrees withit.Electronically signed by: Obie Ware M.D. Assessment/Plan Marizol Wagner is a 74 y.o. male with a PMH of internal hemorrhoids, colonic diverticulosis, and severe who presents with hematochezia. #Hematochezia Given this patient's known history of internal hemorrhoids and colonic diverticulosis, chronicity of hematochezia, and lack of discomfort and pain, these are most likely on differential diagnosis. Also possible is Heyde syndrome given his severe though he was not aware of any report of angiodysplasia on his most recent colonoscopy. May also consider external hemorrhoids those these were not noted on exam and the patient denies any associated symptoms. Highly unlikely to be brisk upper GI bleed given the patient's hemodynamic stability and lack of associated symptoms. - Plan for colonoscopy on 05/13, please bowel prep. GoLytely split prep as follows: - At 1800 on 05/12, drink 8oz portions every 10-15 min until 2L have been consumed - At 0300 on 05/13, drink 8oz portions every 10-15 min until 2L have been consumed. - If nauseated, hold for 30 minutes and resume - Please keep NPO otherwise - May continue ASA 81mg daily - Please have IPAP evaluate given his severe - Follow coags, CBC, BMP - Active T&S q3d, transfuse for Hgb<7 - If Hgb drops significantly, please call GI We will continue to follow-up with you. Thank you for involving us in the care of this patient. If you have any questions, please call the general GI phone during weekdays or the general GI phone during after hours and weekends. Kel Dee MD PhD Internal Medicine, PGY-1 Cosigned by Ariel Sanchez MD at 05/13/2020 7:53 AM QUALITY ASSURANCE ASSISTANT ITY ASSURANCE ASSISTANT ITY ASSURANCE ASSISTANT ITY ASSURANCE ASSISTANT * Eligio Moncada MD - 05/12/2020 12:07 AM CST History and Physical Medicine Firm Subjective HPI: 74M with PMHx Severe , HTN, hyperlipidemia, prior GI bleed in 2014 2/2 h.pylori who presents with1 day of hematochezia. Symptoms started morning of 05/10 with some bright red blood mixed in with his stool. Has had progression of his bleeding, by evening of 05/10 patient's stool was almost entirely bright red blood with some clots. Some diarrhea, mild cramping. No lightheadedness, no shortness of breath, no nausea, vomiting, fevers, chills. Has a history of GI bleed in 2014, secondary to H pylori ulcer. He required 4units of packed red blood cells, treated for H pylori at that time. Does take a baby aspirin, no systemic anticoagulation. No significant NSAID use. Minimal alcohol. Did have recent CT scan on showing diverticulosis. Had also been scheduled for cardiac catheterization for pre TAVR evaluation in the setting of severe aortic stenosis that has been asymptomatic.Presented to [facility] on 05/10 for further evaluation. On presentation to [facility], patient was hemodynamically stable. Admission hemoglobin was 16.4, down to 14.8 which has been stable on 2 checks. GI was consulted at [facility] but given his severeaortic stenosis decision was made to transfer him to [facility] for his colonoscopy. Transferred evening of 05 11 Past Medical History: Diagnosis Date ??? H pylori ulcer with bleeding in 2014 ??? History of blood transfusion 2014 ??? HTN (hypertension) ??? Hyperlipidemia ??? Severe aortic stenosis with a mean gradient 42 mm Hg and EF 55% ??? Sinus disease mild No past surgical history on file. Medications Prior to Admission Medication Sig Dispense Refill Last Dose ??? atorvastatin (LIPITOR) 10 mg tablet Take 10 mg by mouth daily ??? azelastine 0.15 % (205.5 mcg) spray,non-aerosol Administer 1 spray into each nostril daily ??? clobetasol (TEMOVATE) 0.05 % external solution Apply 1 application topically 2 (two) times a day ??? montelukast (SINGULAIR) 10 mg tablet Take 10 mg by mouth nightly ??? travoprost (TRAVATAN Z) 0.004 % drops Administer 1 drop into both eyes nightly No Known Allergies Social History Tobacco Use ??? Smoking status: Never Smoker ??? Smokeless tobacco: Never Used Substance Use Topics ??? Alcohol use: Not on file Family History Problem Relation Age of Onset ??? Heart disease Brother ??? Cancer Mother ??? Hypertension Mother ??? Hypertension Brother Review of Systems Review of systems as per HPI and, otherwise all other systems are negative. Objective Vitals: 24hr Min/Max: Temp Min: 36.3 ??C (97.3 ??F) Max: 36.9 ??C (98.5 ??F) Pulse Min: 75 Max: 98 BP Min: 134/79 Max: 148/95 Resp Min: 16 Max: 23 SpO2 Min: 92 % Max: 99 % Most Recent Vitals: There were no vitals filed for this visit. No intake or output data in the 24 hours ending 05/11/202113 Physical Exam: General: Well-appearing male, in no acute distress. HEENT: Normocephalic, atraumatic. Extraocular movements intact. Conjunctiva non- injected, no sleralicterus. Oropharynx is pink and moist without obvious lesions. Thyroid non-palpable. Cardiovascular: Regular rate and rhythm. Normal S1, S2. 4/6 crescendo decrescendo murmur Radial pulses 2+ and equal bilaterally. Pulmonary: Lungs are clear to auscultation bilaterally. No wheezes, rhonchi, or crackles. Breath sounds equal. Normal chest wall expansion. Abdominal: Soft, non-distended, and non-tender to palpation. No palpable masses or organomegaly. Norebound or guarding. Bowel sounds normoactive in all 4 quadrants. Musculoskeletal: Actively moves all extremities. Normal range of motion. No obvious deformity. Extremities: No cyanosis, pallor, or clubbing noted. No peripheral edema. Neurological: Alert and oriented. CN II-XII intact. Muscle strength 5/5 in all extremities bilaterally. No sensory deficits. Ambulating without difficulty Integumentary: No visible skin rashes or other lesions. Psychiatric: Pleasant, cooperative. Normal mood, appropriate affect. Lab/Radiology/Diagnostic Review: Recent Results (from the past 24 hour(s)) CBC with auto differential Collection Time: 05/11/20 1:32 AM Result Value Ref Range WBC 8.4 3.8 - 9.9 K/cumm Hgb 14.8 13.0 - 17.5 g/dL Hct 43.8 38.9 - 50.3 % Plt 242 150 - 400 K/cumm MPV 10.9 9.1 - 12.3 fL RBC 5.14 4.30 - 5.80 M/cumm MCV 85.2 81.3 - 96.4 fL MCH 28.8 27.1 - 33.3 pg MCHC 33.8 32.3 - 35.7 g/dL RDW CV 13.7 11.1 - 14.9 % RDW SD 42.7 35.7 - 48.1 fL NRBC abs 0.00 0.00 - 0.01 K/cumm Differential, auto Collection Time: 05/11/20 1:32 AM Result Value Ref Range Neutrophil abs 6.4 1.7 - 6.5 K/cumm Imm gran abs 0.0 0.0 - 0.1 K/cumm Lymphocyte abs 1.0 0.8 - 3.3 K/cumm Monocyte abs 0.8 0.2 - 0.8 K/cumm Eosinophil abs 0.2 0.0 - 0.5 K/cumm Basophil abs 0.1 0.0 - 0.1 K/cumm Neutrophil pct 76.3 % Imm gran pct 0.5 % Lymphocyte pct 11.7 % Monocyte pct 8.9 % Eosinophil pct 2.0 % Basophil pct 0.6 % ABO / Rh Confirmation Testing Collection Time: 05/11/20 1:37 AM Result Value Ref Range ABO/Rh Confirmation A Negative Basic metabolic panel Collection Time: 05/11/20 5:09 AM Result Value Ref Range Sodium 140 135 - 145 mmol/L Potassium, pl 3.7 3.3 - 4.9 mmol/L Chloride 105 97 - 110 mmol/L CO2 24 22 - 32 mmol/L Anion gap 11 2 - 15 mmol/L BUN 13 8 - 25 mg/dL Creatinine 0.95 0.80 - 1.30 mg/dL Glucose 130 70 - 199 mg/dL Calcium 9.1 8.5 - 10.3 mg/dL eGFR Collection Time: 05/11/20 5:09 AM Result Value Ref Range GFR 79 mL/min/1.73 m2 CBC with auto differential Collection Time: 05/11/20 11:09 AM Result Value Ref Range WBC 7.6 3.8 - 9.9 K/cumm Hgb 14.8 13.0 - 17.5 g/dL Hct 44.7 38.9 - 50.3 % Plt 247 150 - 400 K/cumm MPV 11.1 9.1 - 12.3 fL RBC 5.17 4.30 - 5.80 M/cumm MCV 86.5 81.3 - 96.4 fL MCH 28.6 27.1 - 33.3 pg MCHC 33.1 32.3 - 35.7 g/dL RDW CV 13.5 11.1 - 14.9 % RDW SD 43.3 35.7 - 48.1 fL NRBC abs 0.00 0.00 - 0.01 K/cumm Differential, auto Collection Time: 05/11/20 11:09 AM Result Value Ref Range Neutrophil abs 6.0 1.7 - 6.5 K/cumm Imm gran abs 0.0 0.0 - 0.1 K/cumm Lymphocyte abs 0.8 0.8 - 3.3 K/cumm Monocyte abs 0.7 0.2 - 0.8 K/cumm Eosinophil abs 0.1 0.0 - 0.5 K/cumm Basophil abs 0.0 0.0 - 0.1 K/cumm Neutrophil pct 77.8 % Imm gran pct 0.3 % Lymphocyte pct 10.9 % Monocyte pct 8.9 % Eosinophil pct 1.6 % Basophil pct 0.5 % Additional lab tests: Imaging Results: No results found. Additional diagnostic/procedure review: Assessment and Plan 74M with PMHx of Hypertension, hyperlipidemia, severe who presents with 1 day of hematochezia. #Hematochezia - 1 day history of hematochezia increasing in volume. Hb 14.8 from 16.4. Has only hadsome symptoms of crampy abdominal pain but otherwise appears well. Does have evidence of diverticulosis on recent CT scan, so this could be inciting etiology. Also in the setting of severe aortic stenosis, acquired von Willebrand's disease and AVM bleed is also a possibility. -Hold ASA -Active type and screen -CBC q8 for now, can likely liberalize to q12 in AM. -GI C/S in AM -IPAP c/s in AM (history of Severe ) -CLD for now #Hypertension - on benazepril and amlodipine at home -hold antihypertensives in setting of GI bleed #Hyperlipidemia --continue atorva #Severe / Was scheduled for outpatient cath with Dr. Torre 05/11. Has been asymptomatic -will need IPAP c/s for his scope. -avoid large volume bolus Code - full Diet - clears DVT prophylaxis -scd Dispo -home Eligio Moncada MD PGY-1 Internal Medicine Cosigned by Fermin Kramer MD at 05/12/2020 1:48 PM QUALITY ASSURANCE ASSISTANT ITY ASSURANCE ASSISTANT ITY ASSURANCE ASSISTANT Associated attestation - Fermin Kramer MD - 05/12/2020 1:48 PM QUALITY ASSURANCE ASSISTANT I have seen and examined the patient on 05/12/20. I agree with the findings and plan of care as documented in the resident's/fellow's note.. 1) GIB > seems most c/w LGIB, ?diverticular vs. Hemorrhoid vs. AVM vs. Other - hold asa, GI c/s, anesthesia c/s - trend h/h, so far only mild drop 2) Severe > fairly asxatic though very tight valve area on recent echo - will alert Dr. Torre of admit, they will need to consider his bleeding risk when weighing risks/benefits and timing of proceeding with valve intervention 3) Lung nodules > noted on preTAVR CT, will need f/u 12 months documented in this encounter Procedure Notes * Leslie Aparicio MD - 05/13/2020 12:01 PM CSTAssociated Order(s): [facility] Patient Name: Marizol Wagner Procedure Date: 05/13/2020 12:01 PM Date of : 1945 Admit Type: Inpatient Age: 74 Gender: Male Attending MD: Leslie Aparicio M.D. Room: [facility] OR POD 5 ROOM 224 Note [...] allergies and sensitivities were reviewed. The patient's tolerance of previous anesthesia was reviewed. - Immediately prior to administration of medications, the patient was re-assessed for adequacy to receive sedatives. - The risks and benefits of the procedure and the sedation options and risks were discussed with the patient. All questions were answered and informed consent was obtained. The benefits, risks and alternatives of the procedure and sedation were discussed and informed consent was obtained. All questions were answered. Please refer to the signed informed consent document in the medical record. The scope was passed under direct vision. The [id number] Endoscope was introduced through the anus and advanced to the the cecum, identified by appendiceal orifice and ileocecal valve. The colonoscopy was performed without difficulty. The quality of the bowel preparation was evaluated using the BBPS ([place] Bowel Preparation Scale) with scores of: Right Colon = 2 (minor amount of residual staining, small fragments of stool and/or opaque liquid, but mucosa seen well), Transverse Colon = 2 (minor amount of residual staining, small fragments of stool and/or opaque liquid, but mucosa seen well) and Left Colon = 2 (minor amount of residual staining, small fragments of stool and/or opaque liquid, but mucosa seen well). The total BBPS score equals 6. The quality [...] to 8 mm in size. Considering his severe aortic stenosis and his risk for periprocedural complications, I elected to remove the polyps. Two polyps were removed with a cold snare. Resection and retrieval were complete. Three polyps were removed with a jumbo cold forceps. Resection and retrieval were complete. For hemostasis, one hemostatic clip was successfully placed in the transverse colon. There was no bleeding at the end of the procedure. Hematin (altered blood/vnyloo-vtvkav-jplt material) was found in the recto-sigmoid colon. [...] 8 mm polyps in the descending colon and in the transverse colon, removed with a cold snare and removed with a jumbo cold forceps. Resected and retrieved. Clip was placed. - Blood in the recto-sigmoid colon. - Diverticulosis in the sigmoid colon. There was no evidence of diverticular bleeding. - Internal hemorrhoids. Recommendation: - Await pathology results. - The bleeding was likely diverticular. If the bleeding recurs with hemodynamic instability, please obtain CT angiography and consult interventional radiology. Electronically signed by Leslie Aparicio MD Leslie Aparicio M.D. 05/13/2020 12:57:58 PM Number of Addenda: 0 Note Initiated On: 05/13/2020 12:01 PM Recognized by the [employer] for promoting quality in endoscopy ITY ASSURANCE ASSISTANT documented in this encounter Consult Notes * Kel Dee MD PhD - 05/12/2020 9:10 AM CSTAssociated Order(s): IP CONSULT TO GASTROENTEROLOGY General GI Initial Consult Chief complaint: Hematochezia Reason for consult: Hematochezia Requesting provider: Dr. Fermin Kramer HPI: Marizol Wagner is a 74 y.o. male with a PMH of severe , HTN, previous GI bleed due to H. pylori ulcer, diverticulosis who presents with the chief complaint of hematochezia. 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 He was admitted at [facility] in [place] in 2014 for melenic stool requiring 4u pRBC transfused; he was found to have peptic ulcer disease due to H. pylori infection. This was treated and hehas not had recurrence of melena since then. On 05/09 he was in his [employer] celebrating his 's birthday and had Spanish food, cake, and several alcoholic drinks. The next morning, he had a bowel movement consisting of brown stool mixed with bright red blood and dark red clots. He denied any obvious inciting events or trauma. He had 3 additional episodes during that day and was instructed to present to OSH. He denied fevers, chills, nausea, vomiting, constipation, SOB, cough, myalgias, change in taste smell, chest pain, abdominal pain, cramping, itching and discomfort associated with BMs. He denies any dizziness, lightheadedness, or syncopal events. He denies unintentional weight loss, change in appetite, night sweats, malaise, and fati hector. He has a history of internal hemorrhoids for which he occasionally uses topical hydrocortisone on his anus but not within. He endorses a diet with fewer vegetables but continues to have bowel movements 1-2x per day that are formed stool; not loose, watery, or soft. He denies laxative use. He deniesprevious hematochezia prior to this beginning on Saturday. He is on ASA 81mg daily; denies use of warfarin, apixaban, clopidogrel, ticagrelor. Denies any use of herbal products. His last colonoscopy was 5 years ago at [facility] in [place]; he has been having them every 5 years due to polyps that have been benign. At that time, he reports that he was noted to have internal hemorrhoids and diverticulosis. Of note, he was being worked up for possible TAVR due to critical with recent TTE showing LENORA 0.5cm2. CT TAVR performed on 05/03/20 showed colonic diverticulosis without evidence of acute diverticulitis and bilateral subcentimeter solid and groundglass pulmonary nodules. On arrival at [facility] ED with VS T 36.7, HR 101, RR 18, BP 163/100 and SpO2 97%. Labs with CMP WNL, CBC with Hgb 14.8 from apparent baseline of 16.4, Plt 235. PT 13.0, INR 1.2. Haptoglobin 51.0. He was evaluated by GI there and recommended for colonoscopy, but was transferred to [facility] becauseof the higher risk of anesthesia given his severe . Past Medical History: Diagnosis Date ??? H pylori ulcer with bleeding in 2014 ??? Hemorrhoid ??? History of blood transfusion 2014 ??? HTN (hypertension) ??? Hyperlipidemia ??? Severe aortic stenosis with a mean gradient 42 mm Hg and EF 55% ??? Sinus disease mild No past surgical history on file. Medications Prior to Admission Medication Sig Dispense Refill Last Dose ??? atorvastatin (LIPITOR) 10 mg tablet Take 10 mg by mouth daily ??? azelastine 0.15 % (205.5 mcg) spray,non-aerosol Administer 1 spray into each nostril daily ??? clobetasol (TEMOVATE) 0.05 % external solution Apply 1 application topically 2 (two) times a day ??? montelukast (SINGULAIR) 10 mg tablet Take 10 mg by mouth nightly ??? travoprost (TRAVATAN Z) 0.004 % drops Administer 1 drop into both eyes nightly No Known Allergies Social History Tobacco Use ??? Smoking status: Never Smoker ??? Smokeless tobacco: Never Used Substance Use Topics ??? Alcohol use: Not on file ??? Drug use: Not on file Family History Problem Relation Age of Onset ??? Heart disease Brother ??? Cancer Mother ??? Hypertension Mother ??? Hypertension Brother ??? Anesthesia problems Neg Hx Review of Systems: Review of systems per HPI and otherwise all other systems are negative Vitals: 24hr Min/Max: Temp Min: 36.3 ??C (97.3 ??F) Max: 36.8 ??C (98.3 ??F) Pulse Min: 76 Max: 98 BP Min: 135/83 Max: 149/82 Resp Min: 16 Max: 20 SpO2 Min: 97 % Max: 100 % Most Recent : Vitals: 05/12/20 1357 BP: 135/90 Pulse: 86 Resp: 20 Temp: 36.8 ??C (98.2 ??F) SpO2: 100% No intake/output data recorded. No intake/output data recorded. Objective Physical Exam: General Appearance: Alert, cooperative, no distress. Overweight. HEENT: Normocephalic, without obvious abnormality, atraumatic. No scleral icterus or conjunctival pallor. Neck: No palpable lymphadenopathy. Lungs: Clear to auscultation bilaterally, respirations unlabored. Cardiovascular: Regular rate and rhythm, IV/ crescendo decrescendo systolic murmur that radiates into his abdomen, best heard at R sternal border. No rubs or gallops. Abdomen: Soft, non-tender, bowel sounds active all four quadrants, no masses, no organomegaly, non-distended. Rectal exam with minimal amounts of dark red blood, no external hemorrhoids noted. Extremities: No cyanosis or edema, no clubbing Skin: No rash Neurologic: Alert and oriented x 4. No focal deficits. CN II-XII intact. Psychiatric: Normal mood and affect Lab/Radiology/Diagnostic Review: Recent Labs Lab Units 05/12/20 1212 05/12/20 0434 05/12/20 0109 05/11/20 1109 05/11/20 0509 05/10/20 1919 01/12/21 1919 WBC K/cumm 9.0 7.9 -- 7.6 -- < > 9.5 HEMOGLOBIN g/dL 14.9 14.1 -- 14.8 -- < > 16.4 HEMATOCRIT % 43.8 40.7 -- 44.7 -- < > 48.0 PLATELETS K/cumm 272 235 -- 247 -- < > 255 SODIUM mmol/L -- -- 139 -- 140 -- 139 POTASSIUM PLASMA mmol/L -- -- 4.1 -- 3.7 -- 3.8 CHLORIDE mmol/L -- -- 105 -- 105 -- 102 CO2 mmol/L -- -- 26 -- 24 -- 25 ANIONGAP mmol/L -- -- 8 -- 11 -- 12 GLUCOSE mg/dL -- -- 98 -- 130 -- 115 BUN SERUM mg/dL -- -- 14 -- 13 -- 13 CREATININE mg/dL -- -- 1.14 -- 0.95 -- 1.00 CALCIUM mg/dL -- -- 9.1 -- 9.1 -- 9.5 ALBUMIN g/dL -- -- 4.0 -- -- -- 4.8 BILIRUBIN TOTAL mg/dL -- -- 0.9 -- -- -- 0.7 ALK PHOS Units/L -- -- 65 -- -- -- 76 ALT Units/L -- -- 16 -- -- -- 21 AST Units/L -- -- 20 -- -- -- 16 INR -- -- 1.2 -- -- -- -- < > = values in this interval not displayed. Results for orders placed during the hospital encounter of 05/03/20CT TAVRNarrativeEXAMINATION: Heart CT and CTA abdomen and pelvis with contrast. History: Severe aortic stenosis, pre-TAVR procedure.Technique: Heart CT and CT angiogram of the abdomen and pelvisperformed during administration of 125 mL of Optiray 350,intravenously per TAVR Protocol. Images were transferred to anindependent workstation for additional 3D post-processing. FINDINGS: Annulus and Thoracic Aortic Measurements (in systole):Aortic valve annulus: Area 868 mm2: circumference 113 mm; 40 mmmaximum diameter x 31 mm minimumdiameter. Sinuses of Valsalva: 34.9 x 38.0 x 36.5 mmSinotubular junction: 33.6 mm diameter sagittalx 34.0 mm diametercoronal.There is Mild left ventricular outflow tract calcification.There is no mitral annular calcification. Distance to RCA ostium from aortic valve annulus: 20.0 mm Distance to left main ostium from annulus: 13.3 mmDeployment angle: 0 ROMANO, 9 CaudalAortic valve calcium score: 3635 .Abdominal Aortic and Pelvic Arterial Smallest Diameter Measurements(made from centerline curved MPRs): Infrarenal aorta: 14.5 mm x 15.7 mm Right common iliac artery: 9.0 mm x 10.9 mm. There is Moderatecalcification. Left common iliac artery: 8.9 mm x 10.1 mm . There is Moderate calcification.Thereis Mild tortuosity of the bilateral common iliac arteries. This is equal in distribution.Right external iliac artery: 9.2 mm x 9.6 mm. There is Mildcalcification. Left external iliac artery: 8.0 mm x9.5 mm. There is Mildcalcification.There is Severe tortuosity of the right external iliac artery andmild tortuosity of the left external iliac artery. Right common femoral artery: 9.5 x 9.8 mm. Thereis Mildcalcification.Left common femoral artery: 10.6 x 10.8 mm. There is Mildcalcification.There is no tortuosity of the bilateral femoral arteries. This isequal in distribution.Other findings: Incidental note is made of an azygos fissure. There are bilateralpulmonary nodules, some of which are solid and others groundglass.For reference a left lower lobe groundglass pulmonary nodule measures7 mm(table position -755.0). A 9 mm right upper lobe pulmonarynodule is partially solid and partially groundglass (table position-819). No pleural effusion or pneumothorax.Heart size is normal. There is no pericardial effusion. There iscoronary artery disease. There is left ventricular hypertrophy.No supraclavicular or axillary lymphadenopathy. Prominent mediastinallymph nodes are likely reactive.Thevisualized liver and spleen appear normal. The gallbladder,pancreas, and adrenal glands appear nicole l.Cysts and other hypoattenuating lesions which are too small tocharacterize are present within both kidneys. No hydronephrosis.The urinary bladder is decompressed. The prostate containscalcifications.There is colonic diverticulosis without evidence of acutediverticulitis. No evidence of bowel obstruction.No abdominal or pelvic lymphadenopathy.Multilevel degenerative changes are present throughout the spine. Noaggressive osseous lytic or blastic lesion. Impression1. Severe aortic valvular stenosis.2. Aortic annulus, and abdominal aortic, common iliac, external iliacand femoral artery measurements in preparation for TAVR procedure asdescribed above.2. Bilateral subcentimeter solid and groundglass pulmonary nodules.Follow-up CT scan in one year is recommended. Recommend follow up ofthe Incidental lung nodule Additional Imaging In 12 Months with chestCT. Dictated by: Nallely Dee M.D.The radiology attending physician has personally reviewed this study,and had reviewed and/or edited this written report and agrees withit.Electronically signed by: Obie Ware M.D. Assessment/Plan Marizol Wagner is a 74 y.o. male with a PMH of internal hemorrhoids, colonic diverticulosis, and severe who presents with hematochezia. #Hematochezia Given this patient's known history of internal hemorrhoids and colonic diverticulosis, chronicity of hematochezia, and lack of discomfort and pain, these are most likely on differential diagnosis. Also possible is Heyde syndrome given his severe though he was not aware of any report of angiodysplasia on his most recent colonoscopy. May also consider external hemorrhoids those these were not noted on exam and the patient denies any associated symptoms. Highly unlikely to be brisk upper GI bleed given the patient's hemodynamic stability and lack of associated symptoms. - Plan for colonoscopy on 05/13, please bowel prep. GoLytely split prep as follows: - At 1800 on 05/12, drink 8oz portions every 10-15 min until 2L have been consumed - At 0300 on 05/13, drink 8oz portions every 10-15 min until 2L have been consumed. - If nauseated, hold for 30 minutes and resume - Please keep NPO otherwise - May continue ASA 81mg daily - Please have IPAP evaluate given his severe - Follow coags, CBC, BMP - Active T&S q3d, transfuse for Hgb<7 - If Hgb drops significantly, please call GI We will continue to follow-up with you. Thank you for involving us in the care of this patient. If you have any questions, please call the general GI phone during weekdays or the general GI phone during after hours and weekends. Kel Dee MD PhD Internal Medicine, PGY-1 Cosigned by Ariel Sanchez MD at 05/13/2020 7:53 AM QUALITY ASSURANCE ASSISTANT ITY ASSURANCE ASSISTANT ITY ASSURANCE ASSISTANT ITY ASSURANCE ASSISTANT Associated attestation - Ariel Sanchez MD - 05/13/2020 7:53 AM QUALITY ASSURANCE ASSISTANT I have seen and examined the patient on 05/12/2020. I agree with the findings and plan of care as documented in the resident's/fellow's note.. documented in this encounter Nursing Notes * Emily Bonilla RN - 05/14/2020 10:32 AM CST Patient reviewed and discharged. discharged required information reviewed with patient, copy given.VANCE removed, pt left for home I/o relatives ITY ASSURANCE ASSISTANT documented in this encounter Miscellaneous Notes * Plan of Care - Emily Bonilla RN - 05/14/2020 9:49 AM CST Goals: Prep for discharge Summary: Problem: Health Behavior: Goal: Understanding of discharge needs will improve Outcome: Progressing ITY ASSURANCE ASSISTANT * Hospital Course - Darby Petty MD - 05/13/2020 3:42 PM CST 74yo male with history of severe , HTN, previous GI bleed 2/2 H Pylori ulcer, and diverticulosis who presented with hematochezia of onset 05/10. #Hematochezia Onset 05/10, associated with crampy abdominal pain. He initially presented to [facility] then transferred to [facility] on 05/11. On arrival to [facility], Hgb was 14.8 though still down from previous 16.4. Recent CT scan on May 03 showed colonic diverticulosis and patient has known history of internal hemorrhoids, so those were most suspected etiologies for bleed. While admitted patient passed small amounts of blood and clots, but remained hemodynamically stable. Patient underwent colonoscopy 05/13 which removed 5x 3-8 mm polyps in the descending and transverse colon,and also showed blood in the rectosigmoid colon and diverticulosis in the sigmoid colon, as well asinternal hemorrhoids. No active bleeding diverticula were found but diverticular bleed was felt to be most likely etiology. Pathology was pending upon discharge. Hgb remained stable throughout admission with a slight downtrend throughout stay (Hgb 14.8->14.1->14.9->13.7->14.8->13.1.)He had no repeat bleeding following scope, and vitals remained stable. He was counseled that small amounts of blood will be normal for the next day or two and instructed on return precautions. He wastold to hold ASA for 10-14 days following bleed. He was given the number for Dr. Aparicio as well asa GI referral for outpatient follow-up. He will also follow up with his PCP and repeat CBC if continued bleeding at home. #Aortic Stenosis - He is fairly asymptomatic at baseline, but recent TTE showed valve area 0.5 cm^2. Was scheduled for outpatient cath with Dr. Torre on 05/11/20. Dr. Torre was informed of admission for GIB and will defer procedure. IPAP was consulted for his colonoscopy on 05/13/20 due to high risk of cardiac complications. As above colonoscopy performed without complication. His ASA 81mg was held as an inpatient, and he was instructed to continue to hold this until 10 days following bleeding. #Hypertension, essential: Held home regimen of benazepril and amlodipine in the setting of GI bleed. Instructed to restart on discharge as BP increased on final day of admission to 140s systolic. #Pulmonary nodules - Bilateral subcentimeter solid and groundglass pulmonary nodules seen on CT 05/03/20 - will need f/u in 12 months #Hyperlipidemia Continued home regimen: atorvastatin 10 mg daily. ITY ASSURANCE ASSISTANT ITY ASSURANCE ASSISTANT ITY ASSURANCE ASSISTANT ITY ASSURANCE ASSISTANT ITY ASSURANCE ASSISTANT ITY ASSURANCE ASSISTANT * Plan of Care - Emily Bonilla RN - 05/13/2020 12:15 PM CST Goals: Preop and postop care, Monitor labs Summary: Problem: Health Behavior: Goal: Understanding of discharge needs will improve Outcome: Progressing ITY ASSURANCE ASSISTANT * Assessment & Plan Note - Yeison Ann MD - 05/13/2020 12:06 PM QUALITY ASSURANCE ASSISTANT Associated Problem(s): Severe aortic stenosis Was scheduled for outpatient cath with Dr. Torre on 05/11/20. Asymptomatic. IPAP was consulted forhis colonoscopy on 05/13/20. Plan: - avoid large volume boluses - continue to monitor ITY ASSURANCE ASSISTANT * Assessment & Plan Note - Yeison Ann MD - 05/13/2020 12:05 PM QUALITY ASSURANCE ASSISTANT Associated Problem(s): HLD (hyperlipidemia) Home regimen: atorvastatin 10 mg daily. Plan: - continue atorvastatin ITY ASSURANCE ASSISTANT * Assessment & Plan Note - Yeison Ann MD - 05/13/2020 12:05 PM QUALITY ASSURANCE ASSISTANT Associated Problem(s): Hypertension, essential Home regimen: benazepril and amlodipine. Plan: - HOLD anti-hypertensives in setting of GIB ITY ASSURANCE ASSISTANT * Assessment & Plan Note - Yeison Ann MD - 05/13/2020 12:03 PM QUALITY ASSURANCE ASSISTANT Associated Problem(s): Hematochezia 1 day history of hematochezia increasing in volume. Hb 14.8 from 16.4. Has only had some symptoms of crampy abdominal pain but otherwise appears well. Does have evidence of diverticulosis on recent CT scan, so this could be inciting etiology. Also in the setting of severe aortic stenosis, acquiredvon Willebrand's disease and AVM bleed is also a possibility. Plan: - continue ASA - CBC q12hr - colonoscopy 05/13/20 - f/u GI consult recs - ADAT after colonoscopy ITY ASSURANCE ASSISTANT * Plan of Care - Mirza Dunham RN - 05/12/2020 3:07 PM QUALITY ASSURANCE ASSISTANT Goals: Patient will have adequate PO intake. Summary: Currently patient continues to be on a clear liquid diet. Will advance as tolerated after patient procedure. Will continue to monitor patient. ITY ASSURANCE ASSISTANT documented in this encounter Plan of Treatment Not on file documented as of this encounter Procedures Procedure Name Priority Date/Time Associated Diagnosis Comments DIFFERENTIAL AUTO Timed 05/13/2020 11: 27 PM QUALITY ASSURANCE ASSISTANT CBC WITH AUTO DIFFERENTIAL Timed 05/13/2020 11:27 PM QUALITY ASSURANCE ASSISTANT APTT Routine 05/13/2020 9:59 PM QUALITY ASSURANCE ASSISTANT PROTIME-INR Routine 05/13/2020 9:59 PM QUALITY ASSURANCE ASSISTANT COMPREHENSIVE METABOLIC PANEL Routine 05/13/2020 9:59 PM QUALITY ASSURANCE ASSISTANT SURGICAL PATHOLOGY Routine 05/13/2020 12 :30 PM QUALITY ASSURANCE ASSISTANT Gastrointestinal hemorrhage, unspecified gastrointestinal hemorrhage type COLONOSCOPY 05/13/2020 12:01 PM QUALITY ASSURANCE ASSISTANT ENDO ADD ON COLON BIOPSY 05/13/2020 11:54 AM QUALITY ASSURANCE ASSISTANT Gastrointestinal hemorrhage, unspecified gastrointestinal hemorrhage type COLON REMOVAL SNARE 05/13/2020 1 1:54 AM QUALITY ASSURANCE ASSISTANT Gastrointestinal hemorrhage, unspecified gastrointestinal hemorrhage type DIFFERENTIAL AUTO Timed 05/13/2020 10: 19 AM QUALITY ASSURANCE ASSISTANT CBC WITH AUTO DIFFERENTIAL Timed 05/13/2020 10:19 AM QUALITY ASSURANCE ASSISTANT DIFFERENTIAL AUTO Timed 05/12/2020 10: 11 PM QUALITY ASSURANCE ASSISTANT CBC WITH AUTO DIFFERENTIAL Timed 05/12/2020 10:11 PM QUALITY ASSURANCE ASSISTANT APTT Routine 05/12/2020 10:11 PM QUALITY ASSURANCE ASSISTANT PROTIME-INR Routine 05/12/2020 10:11 PM QUALITY ASSURANCE ASSISTANT COMPREHENSIVE METABOLIC PANEL Routine 05/12/2020 10:11 PM QUALITY ASSURANCE ASSISTANT COVID-19 CORONAVIRUS RNA Routine 05/12/2020 1:42 PM QUALITY ASSURANCE ASSISTANT ECG 12-LEAD Routine 05/12/2020 1:30 PM QUALITY ASSURANCE ASSISTANT DIFFERENTIAL AUTO Timed 05/12/2020 12: 12 PM QUALITY ASSURANCE ASSISTANT CBC WITH AUTO DIFFERENTIAL Timed 05/12/2020 12:12 PM QUALITY ASSURANCE ASSISTANT DIFFERENTIAL AUTO Timed 05/12/2020 4:3 4 AM QUALITY ASSURANCE ASSISTANT CBC WITH AUTO DIFFERENTIAL Timed 05/12/2020 4:34 AM QUALITY ASSURANCE ASSISTANT PROTIME-INR Routine 05/12/2020 1:09 AM QUALITY ASSURANCE ASSISTANT TYPE AND SCREEN Timed 05/12/2020 1:09 AM QUALITY ASSURANCE ASSISTANT HAPTOGLOBIN Routine 05/12/2020 1:09 AM QUALITY ASSURANCE ASSISTANT COMPREHENSIVE METABOLIC PANEL Routine 05/12/2020 1:09 AM QUALITY ASSURANCE ASSISTANT documented in this encounter Results * Differential, auto (05/13/2020 11:27 PM QUALITY ASSURANCE ASSISTANT) Neutrophil abs 5.9 1.7 - 6.5 K/cumm [facility] Imm gran abs 0.0 0.0 - 0.1 K/cumm [facility] Lymphocyte abs 0.9 0.8 - 3.3 K/cumm [facility] Monocyte abs 0.8 0.2 - 0.8 K/cumm [facility] Eosinophil abs 0.2 0.0 - 0.5 K/cumm [facility] Basophil abs 0.1 0.0 - 0.1 K/cumm [facility] Neutrophil pct 74.6 % [facility] Comment: Interpretive Data Percent cell count reference ranges are not reported, since discordance with absolute values may lead to misinterpretation of CBC data. Current Interpretive Data was last revised on 2017. Imm gran pct 0.3 % [facility] Comment: Interpretive Data Percent cell count reference ranges are not reported, since discordance with absolute values may lead to misinterpretation of CBC data. Current Interpretive Data was last revised on 2017. Lymphocyte pct 11.7 % [facility] Comment: Interpretive Data Percent cell count reference ranges are not reported, since discordance with absolute values may lead to misinterpretation of CBC data. Current Interpretive Data was last revised on 2017. Monocyte pct 10.4 % [facility] Comment: Interpretive Data Percent cell count reference ranges are not reported, since discordance with absolute values may lead to misinterpretation of CBC data. Current Interpretive Data was last revised on 2017. Eosinophil pct 2.4 % [facility] Comment: Interpretive Data Percent cell count reference ranges are not reported, since discordance with absolute values may lead to misinterpretation of CBC data. Current Interpretive Data was last revised on 2017. Basophil pct 0.6 % [facility] Comment: Interpretive Data Percent cell count reference ranges are not reported, since discordance with absolute values may lead to misinterpretation of CBC data. Current Interpretive Data was last revised on 2017. Blood specimen (specimen) 05/13/2020 11:27 PM QUALITY ASSURANCE ASSISTANT 05/13/2020 11:50 PM QUALITY ASSURANCE ASSISTANT Fermin Kramer MD LAB BLOOD ORDERABLES F inal Result Performing Organization Address City/[facility] Co de Phone Number [facility] [place] [address] * (ABNORMAL) CBC with auto differential (05/13/2020 11:27 PM QUALITY ASSURANCE ASSISTANT) Pathologist [facility] WBC 7.9 3.8 - 9.9 K/cumm [facility] Hgb 13.1 13.0 - 17.5 g/dL [facility] Hct 38.6(L) 38.9 - 50.3 % [facility] Plt 224 150 - 400 K/cumm [facility] MPV 11.4 9.1 - 12.3 fL [facility] RBC 4.60 4.30 - 5.80 M/cumm [facility] MCV 83.9 81.3 - 96.4 fL [facility] MCH 28.5 27.1 - 33.3 pg [facility] MCHC 33.9 32.3 - 35.7 g/dL [facility] RDW CV 13.6 11.1 - 14.9 % [facility] RDW SD 41.7 35.7 - 48.1 fL [facility] NRBC abs 0.00 0.00 - 0.01 K/cumm [facility] Blood specimen (specimen) 05/13/2020 11:27 PM QUALITY ASSURANCE ASSISTANT 05/13/2020 11:50 PM QUALITY ASSURANCE ASSISTANT Fermin Kramer MD LAB BLOOD ORDERABLES F inal Result Performing Organization Address [facility] Co de Phone Number [facility] Department [place] [address] * aPTT (05/13/2020 9:59 PM QUALITY ASSURANCE ASSISTANT) aPTT 28 25 - 37 sec [facility] Comment: Interpretive data Heparin therapeutic range: 60-90 seconds Range based on correlation with therapeutic heparin activity range of 0.3-0.7 units/ml. Current interpretive data was last revised on 2019. Blood specimen (specimen) 05/13/2020 9:59 PM QUALITY ASSURANCE ASSISTANT 05/13/2020 10:27 PM QUALITY ASSURANCE ASSISTANT Leslie Aparicio MD LAB BLOOD ORDERABLES Final Resu lt Performing Organization Address City/[facility]/ZIP Co de Phone Number [facility] [place] [address] * (ABNORMAL) Protime-INR (05/13/2020 9:59 PM QUALITY ASSURANCE ASSISTANT) Pathologist [facility] PT 13.1(H) 8.6 - 13.0 sec [facility] INR 1.2 0.8 - 1.2 [facility] Comment: Interpretive data Oral anticoagulant therapeutic ranges: Venous thromboembolism prophylaxis or treatment: 2.0-3.0 CARDIOLOGY Standard range: 2.0-3.0 High-intensity range: 2.5-3.5 Refer to indication-specific guidelines for appropriate target ranges for prosthetic heart valve replacement. Current interpretive data was last revised on 2019. Blood specimen (specimen) 05/13/2020 9:59 PM QUALITY ASSURANCE ASSISTANT 05/13/2020 10:27 PM QUALITY ASSURANCE ASSISTANT Leslie Aparicio MD LAB BLOOD ORDERABLES Final Resu lt [facility] One [facility] [employer] [address] * (ABNORMAL) Comprehensive metabolic panel (05/13/2020 9:59 PM QUALITY ASSURANCE ASSISTANT) Sodium 141 135 - 145 mmol/L [facility] Potassium, pl 4.0 3.3 - 4.9 mmol/L [facility] Chloride 107 97 - 110 mmol/L [facility] CO2 26 22 - 32 mmol/L [facility] Anion gap 8 2 - 15 mmol/L [facility] BUN 13 8 - 25 mg/dL [facility] Creatinine 1.11 0.80 - 1.30 mg/dL [facility] Glucose 108 70 - 199 mg/dL [facility] Comment: Interpretive Data Fasting glucose [...] interpretive data was last revised 2017. Calcium 9.2 8.5 - 10.3 mg/dL [facility] Bilirubin, total 0.6 0.1 - 1.2 mg/dL [facility] Protein, pl 6.2(L) 6.5 - 8.5 g/dL [facility] Albumin 3.8 3.5 - 5.0 g/dL [facility] Alk phos 67 40 - 130 Units/L [facility] ALT 15 7 - 55 Units/L [facility] AST 18 10 - 50 Units/L [facility] Blood specimen (specimen) 05/13/2020 9:59 PM QUALITY ASSURANCE ASSISTANT 05/13/2020 10:25 PM QUALITY ASSURANCE ASSISTANT us Leslie Apraicio MD LAB BLOOD ORDERABLES Final Resu lt [facility] One [facility] Department [place] [address] * Surgical pathology (05/13/2020 12:30 PM QUALITY ASSURANCE ASSISTANT) Tissue (Polyp(s), colon/colorectal, esophageal, gastric) 05/13/2020 12:30 PM QUALITY ASSURANCE ASSISTANT Narrative PATHOLOGY [facility] - 05/16/2020 11:52 AM QUALITY ASSURANCE ASSISTANT EPIC results best viewed via link to PDF [facility] [place] [address] SURGICAL PATHOLOGY REPORT FINAL Patient Name: ?? MARIZOL WAGNER Gender: ??M : ??1945 (Age: 74) Address: ??[address] [place] [address] ??[id number] Hospital #: ??[id number] Taken:05/13/2020 Received:05/13/2020 Reported: 05/16/2020 Patient Type: [facility] Inpatient ?? Service: Medical Location: [facility] Physician(s): ??Dean Gonzalez M.D. Diagnosis: A. ??Large bowel, transverse and descending colon polyps, biopsy ? - Fragments of tubular adenoma kxr/05/16/2020 07:00 By this signature, I attest that the above diagnosis is based upon my personal examination of the slides(and/or other material indicated in the diagnosis). Sanjana Cisneros M.D. Report Electronically Reviewed and Signed Out By ??Sanjana Cisneros M.D. 05/16/2020 11:52:47 Microscopic Description and Comment: Microscopic examination substantiates the above cited diagnosis. Katty Carrasco M.D., PhD History: The patient is a 74-year-old man with a history of gastrointestinal hemorrhage. ??Operative procedure: Colon removal snare; colon biopsy. Specimen(s) Received: A: Cold snare and cold biopsy transverse and descending colon polyps Gross Description: A. ??The specimen is received in a single formalin filled container labeled with the patient's name and cold snare and cold biopsy transverse and descending colon polyps , and consists of multiple waters-pink irregular fragment(s) of soft-tissue measuring 2.5 x 1.2 x 0.2 cm in aggregate. ??Labeled A1. ??Jar 0. dxb/05/13/2020 18:06 PA(s): Lee Barber, PA By this signature, I attest that the above diagnosis is based upon my personal examination of the slides(and/or other material). Addenda/Procedures The performance characteristics of some immunohistochemical stains, fluorescence in-situ hybridization tests and immunophenotyping by flow cytometry cited in this report (if any) were determined by the Surgical Pathology Department at [facility] as part of an ongoing quality assurance assistant program and in compliance with federally mandated [...] following disclaimer be attached to the report: This test was developed and its performance characteristics determined by the Surgical Pathology Department of [facility]. ??It has not been cleared or approved by the U. S. Food and Drug Administration. IMAGES AND SCANNED DOCUMENTS, IF INCLUDED, ONLY VIEWABLE IN PDF VERSION OF REPORT Leslie Aparicio MD LAB PATHOLOGY ORDERABLES Final Result PATHOLOGY [facility] 3rd Floor [place], [place] [phone] * COLONOSCOPY (05/13/2020 12:01 PM QUALITY ASSURANCE ASSISTANT) Anatomical Region Laterality Modality Other Narrative Procedure Note Leslie Aparicio MD - 05/13/2020 12:01 PM [facility] Patient Name: Marizol Wagner Procedure Date: 05/13/2020 12:01 PM Date of : 1945 Admit Type: Inpatient Age: 74 Gender: Male Attending MD: Leslie Aparicio M.D. Room: [facility] OR POD 5 ROOM 224 Note [...] The scope was passed under direct vision.The [id number] Endoscope was introduced throughthe anus and advanced to the the cecum, identified by appendiceal orifice and ileocecal valve. The colonoscopy was performed without difficulty. The quality of the bowel preparation was evaluated using the BBPS ([place] Bowel Preparation Scale) withscores of: Right Colon [...] the end of the procedure. Hematin (altered blood/rmyebd-gxifzx-roio material) was found in the recto-sigmoid colon. [...] On: 05/13/2020 12:01 PM Recognized by the [place] [employer] for promoting quality in endoscopy Leslie Aparicio MD ENDOSCOPY PROCEDURES Final Resu lt * (ABNORMAL) Differential, auto (05/13/2020 10:19 AM QUALITY ASSURANCE ASSISTANT) Neutrophil abs 6.0 1.7 - 6.5 K/cumm [facility] Imm gran abs 0.0 0.0 - 0.1 K/cumm [facility] Lymphocyte abs 0.7(L) 0.8 - 3.3 K/cumm [facility] Monocyte abs 0.6 0.2 - 0.8 K/cumm [facility] Eosinophil abs 0.1 0.0 - 0.5 K/cumm [facility] Basophil abs 0.0 0.0 - 0.1 K/cumm [facility] Neutrophil pct 81.5 % [facility] Comment: Interpretive Data Percent cell count reference ranges are not reported, since discordance with absolute values may lead to misinterpretation of CBC data. Current Interpretive Data was last revised on 2017. Imm gran pct 0.3 % [facility] Comment: Interpretive Data Percent cell count reference ranges are not reported, since discordance with absolute values may lead to misinterpretation of CBC data. Current Interpretive Data was last revised on 2017. Lymphocyte pct 9.2 % [facility] Comment: Interpretive Data Percent cell count reference ranges are not reported, since discordance with absolute values may lead to misinterpretation of CBC data. Current Interpretive Data was last revised on 2017. Monocyte pct 7.4 % [facility] Comment: Interpretive Data Percent cell count reference ranges are not reported, since discordance with absolute values may lead to misinterpretation of CBC data. Current Interpretive Data was last revised on 2017. Eosinophil pct 1.1 % [facility] Comment: Interpretive Data Percent cell count reference ranges are not reported, since discordance with absolute values may lead to misinterpretation of CBC data. Current Interpretive Data was last revised on 2017. Basophil pct 0.5 % [facility] Comment: Interpretive Data Percent cell count reference ranges are not reported, since discordance with absolute values may lead to misinterpretation of CBC data. Current Interpretive Data was last revised on 2017. Blood specimen (specimen) 05/13/2020 10:19 AM QUALITY ASSURANCE ASSISTANT 05/13/2020 10:40 AM QUALITY ASSURANCE ASSISTANT us Fermin Kramer MD LAB BLOOD ORDERABLES F inal Result Performing Organization Address City/[facility]/ZIP Co de Phone Number [facility] Department [place] [address] * CBC with auto differential (05/13/2020 10:19 AM QUALITY ASSURANCE ASSISTANT) WBC 7.4 3.8 - 9.9 K/cumm [facility] Hgb 14.8 13.0 - 17.5 g/dL [facility] Hct 43.1 38.9 - 50.3 % [facility] Plt 232 150 - 400 K/cumm [facility] MPV 11.6 9.1 - 12.3 fL [facility] RBC 5.09 4.30 - 5.80 M/cumm [facility] MCV 84.7 81.3 - 96.4 fL [facility] MCH 29.1 27.1 - 33.3 pg [facility] MCHC 34.3 32.3 - 35.7 g/dL [facility] RDW CV 13.6 11.1 - 14.9 % [facility] RDW SD 42.3 35.7 - 48.1 fL [facility] NRBC abs 0.00 0.00 - 0.01 K/cumm [facility] Blood specimen (specimen) 05/13/2020 10:19 AM QUALITY ASSURANCE ASSISTANT 05/13/2020 10:40 AM QUALITY ASSURANCE ASSISTANT Leslie Aparicio MD LAB BLOOD ORDERABLES Final Resu lt [facility] Department [place] [address] * Differential, auto (05/12/2020 10:11 PM QUALITY ASSURANCE ASSISTANT) Neutrophil abs 5.7 1.7 - 6.5 K/cumm [facility] Imm gran abs 0.0 0.0 - 0.1 K/cumm [facility] Lymphocyte abs 0.9 0.8 - 3.3 K/cumm [facility] Monocyte abs 0.8 0.2 - 0.8 K/cumm [facility] Eosinophil abs 0.2 0.0 - 0.5 K/cumm [facility] Basophil abs 0.0 0.0 - 0.1 K/cumm [facility] Neutrophil pct 74.8 % [facility] Comment: Interpretive Data Percent cell count reference ranges are not reported, since discordance with absolute values may lead to misinterpretation of CBC data. Current Interpretive Data was last revised on 2017. Imm gran pct 0.5 % [facility] Comment: Interpretive Data Percent cell count reference ranges are not reported, since discordance with absolute values may lead to misinterpretation of CBC data. Current Interpretive Data was last revised on 2017. Lymphocyte pct 11.5 % [facility] Comment: Interpretive Data Percent cell count reference ranges are not reported, since discordance with absolute values may lead to misinterpretation of CBC data. Current Interpretive Data was last revised on 2017. Monocyte pct 10.3 % [facility] Comment: Interpretive Data Percent cell count reference ranges are not reported, since discordance with absolute values may lead to misinterpretation of CBC data. Current Interpretive Data was last revised on 2017. Eosinophil pct 2.6 % [facility] Comment: Interpretive Data Percent cell count reference ranges are not reported, since discordance with absolute values may lead to misinterpretation of CBC data. Current Interpretive Data was last revised on 2017. Basophil pct 0.3 % [facility] Comment: Interpretive Data Percent cell count reference ranges are not reported, since discordance with absolute values may lead to misinterpretation of CBC data. Current Interpretive Data was last revised on 2017. Blood specimen (specimen) 05/12/2020 10:11 PM QUALITY ASSURANCE ASSISTANT 05/12/2020 10:43 PM QUALITY ASSURANCE ASSISTANT Fermin Kramer MD LAB BLOOD ORDERABLES F inal Result Performing Organization Address [facility] Co de Phone Number [facility] Department [place] [address] * CBC with auto differential (05/12/2020 10:11 PM QUALITY ASSURANCE ASSISTANT) Pathologist [facility] WBC 7.6 3.8 - 9.9 K/cumm [facility] Hgb 13.7 13.0 - 17.5 g/dL [facility] Hct 40.2 38.9 - 50.3 % [facility] Plt 245 150 - 400 K/cumm [facility] MPV 11.4 9.1 - 12.3 fL [facility] RBC 4.78 4.30 - 5.80 M/cumm [facility] MCV 84.1 81.3 - 96.4 fL [facility] MCH 28.7 27.1 - 33.3 pg [facility] MCHC 34.1 32.3 - 35.7 g/dL [facility] RDW CV 13.7 11.1 - 14.9 % [facility] RDW SD 42.3 35.7 - 48.1 fL [facility] NRBC abs 0.00 0.00 - 0.01 K/cumm [facility] Blood specimen (specimen) 05/12/2020 10:11 PM QUALITY ASSURANCE ASSISTANT 05/12/2020 10:43 PM QUALITY ASSURANCE ASSISTANT Leslie Aparicio MD LAB BLOOD ORDERABLES Final Resu lt Performing Organization Address City/[facility]/ZIP Co de Phone Number [facility] Department [place] [address] * aPTT (05/12/2020 10:11 PM QUALITY ASSURANCE ASSISTANT) Pathologist [facility] aPTT 29 25 - 37 sec [facility] Comment: Interpretive data Heparin therapeutic range: 60-90 seconds Range based on correlation with therapeutic heparin activity range of 0.3-0.7 units/ml. Current interpretive data was last revised on 2019. Blood specimen (specimen) 05/12/2020 10:11 PM QUALITY ASSURANCE ASSISTANT 05/12/2020 10:49 PM QUALITY ASSURANCE ASSISTANT Leslie Aparicio MD LAB BLOOD ORDERABLES Final Resu lt Performing Organization Address [facility] Co de Phone Number [facility] Department [place] [address] * (ABNORMAL) Protime-INR (05/12/2020 10:11 PM QUALITY ASSURANCE ASSISTANT) Pathologist [facility] PT 13.3(H) 8.6 - 13.0 sec [facility] INR 1.2 0.8 - 1.2 [facility] Comment: Interpretive data Oral anticoagulant therapeutic ranges: Venous thromboembolism prophylaxis or treatment: 2.0-3.0 CARDIOLOGY Standard range: 2.0-3.0 High-intensity range: 2.5-3.5 Refer to indication-specific guidelines for appropriate target ranges for prosthetic heart valve replacement. Current interpretive data was last revised on 2019. Blood specimen (specimen) 05/12/2020 10:11 PM QUALITY ASSURANCE ASSISTANT 05/12/2020 10:49 PM QUALITY ASSURANCE ASSISTANT Leslie Aparicio MD LAB BLOOD ORDERABLES Final Resu lt Performing Organization Address [facility] Co de Phone Number [facility] Department [place] [address] * Comprehensive metabolic panel (05/12/2020 10:11 PM QUALITY ASSURANCE ASSISTANT) Pathologist [facility] Sodium 139 135 - 145 mmol/L [facility] Potassium, pl 4.1 3.3 - 4.9 mmol/L [facility] Chloride 105 97 - 110 mmol/L [facility] CO2 28 22 - 32 mmol/L [facility] Anion gap 6 2 - 15 mmol/L [facility] BUN 12 8 - 25 mg/dL [facility] Creatinine 1.08 0.80 - 1.30 mg/dL [facility] Glucose 104 70 - 199 mg/dL [facility] Comment: Interpretive Data Fasting glucose [...] interpretive data was last revised 2017. Calcium 9.1 8.5 - 10.3 mg/dL [facility] Bilirubin, total 0.9 0.1 - 1.2 mg/dL [facility] Protein, pl 6.7 6.5 - 8.5 g/dL [facility] Albumin 4.1 3.5 - 5.0 g/dL [facility] Alk phos 67 40 - 130 Units/L [facility] ALT 16 7 - 55 Units/L [facility] AST 15 10 - 50 Units/L [facility] Blood specimen (specimen) 05/12/2020 10:11 PM QUALITY ASSURANCE ASSISTANT 05/12/2020 10:43 PM QUALITY ASSURANCE ASSISTANT us Leslie Aparicio MD LAB BLOOD ORDERABLES Final Resu lt [facility] Department [place] [address] * COVID-19 Coronavirus RNA Nasopharyngeal (05/12/2020 1:42 PM QUALITY ASSURANCE ASSISTANT) COVID-19 RNA Not Detected [facility] Comment: Interpretive Data Testing performed by the [facility]. The 2019-Novel Coronavirus [...] Interpretive Data was last revised on 2019. First COVID-19 test? Unknown DANA BAILON Employeed in healthcare? No DANA MEDEIROS status? No DANA [facility] Group care resident? No DANA MEDEIROS Hospitalized? Yes DANA MEDEIROS Is patient in ICU? No DANA [facility] Symptomatic as defined by CDC? No DANA [facility] Nasopharyngeal 05/12/2020 1: 42 PM QUALITY ASSURANCE ASSISTANT 05/12/2020 2:50 PM QUALITY ASSURANCE ASSISTANT Narrative DANA MEDEIROS - 05/12/2020 9:36 PM QUALITY ASSURANCE ASSISTANT What is the reason for testing?->Asymptomatic screening prior to procedure or surgery Keo Young NP LAB MICROBIOLOGY - GENER AL ORDERABLES Final Result Performing Organization Address City/[facility]/ZIP Co de Phone Number [facility] One [facility] Department [place] [address] * ECG 12 lead (05/12/2020 1:30 PM QUALITY ASSURANCE ASSISTANT) Ventricular Rate EKG/Min 85 BPM [facility] Atrial Rate 85 BPM [facility] MO-Interval (MSEC) 146 ms [facility] QRS-Interval (MSEC) 100 ms [facility] QT-Interval (MSEC) 374 ms [facility] QTc 445 ms [facility] P [place] 48 degrees [facility] R [place] 5 degrees [facility] T [place] 66 degrees [facility] Diagnosis Normal sinus rhythm Nonspecific ST abnormality Abnormal ECG No previous ECGs available Confirmed by NELA COOK M.D ([id number]) on 05/13/2020 5:53:49 PM [facility] 05/12/2020 1:30 PM QUALITY ASSURANCE ASSISTANT 05/13/2020 5:53 PM QUALITY ASSURANCE ASSISTANT Keo Young NP ECG ORDERABLES Final Re sult Performing Organization Address City/[facility]/ZIP Co de Phone Number [facility] * (ABNORMAL) Differential, auto (05/12/2020 12:12 PM QUALITY ASSURANCE ASSISTANT) Neutrophil abs 7.2(H) 1.7 - 6.5 K/cumm [facility] Imm gran abs 0.0 0.0 - 0.1 K/cumm [facility] Lymphocyte abs 0.9 0.8 - 3.3 K/cumm [facility] Monocyte abs 0.8 0.2 - 0.8 [facility] Eosinophil abs 0.1 0.0 - 0.5 K[facility] Basophil abs 0.0 0.0 - 0.1 K[facility]cumm [facility] Neutrophil pct 80.0 % [facility] Comment: Interpretive Data Percent cell count reference ranges are not reported, since discordance with absolute values may lead to misinterpretation of CBC data. Current Interpretive Data was last revised on 2017. Imm gran pct 0.3 % [facility] Comment: Interpretive Data Percent cell count reference ranges are not reported, since discordance with absolute values may lead to misinterpretation of CBC data. Current Interpretive Data was last revised on 2017. Lymphocyte pct 9.8 % [facility] Comment: Interpretive Data Percent cell count reference ranges are not reported, since discordance with absolute values may lead to misinterpretation of CBC data. Current Interpretive Data was last revised on 2017. Monocyte pct 8.3 % [facility] Comment: Interpretive Data Percent cell count reference ranges are not reported, since discordance with absolute values may lead to misinterpretation of CBC data. Current Interpretive Data was last revised on 2017. Eosinophil pct 1.2 % [facility] Comment: Interpretive Data Percent cell count reference ranges are not reported, since discordance with absolute values may lead to misinterpretation of CBC data. Current Interpretive Data was last revised on 2017. Basophil pct 0.4 % [facility] Comment: Interpretive Data Percent cell count reference ranges are not reported, since discordance with absolute values may lead to misinterpretation of CBC data. Current Interpretive Data was last revised on 2017. Blood specimen (specimen) 05/12/2020 12:12 PM QUALITY ASSURANCE ASSISTANT 05/12/2020 12:26 PM QUALITY ASSURANCE ASSISTANT Fermin Kramer MD LAB BLOOD ORDERABLES F inal Result Performing Organization Address City/[facility] Co de Phone Number [facility] [place] [address] * CBC with auto differential (05/12/2020 12:12 PM QUALITY ASSURANCE ASSISTANT) Pathologist [facility] WBC 9.0 3.8 - 9.9 K/cumm [facility] Hgb 14.9 13.0 - 17.5 g/dL [facility] Hct 43.8 38.9 - 50.3 % [facility] Plt 272 150 - 400 K/cumm [facility] MPV 11.4 9.1 - 12.3 fL [facility] RBC 5.24 4.30 - 5.80 M/cumm [facility] MCV 83.6 81.3 - 96.4 fL [facility] MCH 28.4 27.1 - 33.3 pg [facility] MCHC 34.0 32.3 - 35.7 g/dL [facility] RDW CV 13.8 11.1 - 14.9 % [facility] RDW SD 41.8 35.7 - 48.1 fL [facility] NRBC abs 0.00 0.00 - 0.01 K/cumm [facility] Blood specimen (specimen) 05/12/2020 12:12 PM QUALITY ASSURANCE ASSISTANT 05/12/2020 12:26 PM QUALITY ASSURANCE ASSISTANT Fermin Kramer MD LAB BLOOD ORDERABLES F inal Result [facility] Department [place] [address] * (ABNORMAL) Differential, auto (05/12/2020 4:34 AM QUALITY ASSURANCE ASSISTANT) Pathologist [facility] Neutrophil abs 5.5 1.7 - 6.5 K/cumm [facility] Imm gran abs 0.0 0.0 - 0.1 K/cumm [facility] Lymphocyte abs 1.2 0.8 - 3.3 K/cumm [facility] Monocyte abs 0.9(H) 0.2 - 0.8 K/cumm [facility] Eosinophil abs 0.3 0.0 - 0.5 K/cumm [facility] Basophil abs 0.0 0.0 - 0.1 K/cumm [facility] Neutrophil pct 69.8 % [facility] Comment: Interpretive Data Percent cell count reference ranges are not reported, since discordance with absolute values may lead to misinterpretation of CBC data. Current Interpretive Data was last revised on 2017. Imm gran pct 0.5 % [facility] Comment: Interpretive Data Percent cell count reference ranges are not reported, since discordance with absolute values may lead to misinterpretation of CBC data. Current Interpretive Data was last revised on 2017. Lymphocyte pct 14.8 % [facility] Comment: Interpretive Data Percent cell count reference ranges are not reported, since discordance with absolute values may lead to misinterpretation of CBC data. Current Interpretive Data was last revised on 2017. Monocyte pct 11.1 % [facility] Comment: Interpretive Data Percent cell count reference ranges are not reported, since discordance with absolute values may lead to misinterpretation of CBC data. Current Interpretive Data was last revised on 2017. Eosinophil pct 3.3 % [facility] Comment: Interpretive Data Percent cell count reference ranges are not reported, since discordance with absolute values may lead to misinterpretation of CBC data. Current Interpretive Data was last revised on 2017. Basophil pct 0.5 % [facility] Comment: Interpretive Data Percent cell count reference ranges are not reported, since discordance with absolute values may lead to misinterpretation of CBC data. Current Interpretive Data was last revised on 2017. Blood specimen (specimen) 05/12/2020 4:34 AM QUALITY ASSURANCE ASSISTANT 05/12/2020 4:56 AM QUALITY ASSURANCE ASSISTANT us Fermin Kramer MD LAB BLOOD ORDERABLES F inal Result [facility] Department [place] [address] * CBC with auto differential (05/12/2020 4:34 AM QUALITY ASSURANCE ASSISTANT) Pathologist [facility] WBC 7.9 3.8 - 9.9 K/cumm [facility] Hgb 14.1 13.0 - 17.5 g/dL [facility] Hct 40.7 38.9 - 50.3 % [facility] Plt 235 150 - 400 K/cumm [facility] MPV 11.3 9.1 - 12.3 fL [facility] RBC 4.79 4.30 - 5.80 M/cumm [facility] MCV 85.0 81.3 - 96.4 fL [facility] MCH 29.4 27.1 - 33.3 pg [facility] MCHC 34.6 32.3 - 35.7 g/dL [facility] RDW CV 13.8 11.1 - 14.9 % [facility] RDW SD 43.1 35.7 - 48.1 fL [facility] NRBC abs 0.00 0.00 - 0.01 K/cumm [facility] Blood specimen (specimen) 05/12/2020 4:34 AM QUALITY ASSURANCE ASSISTANT 05/12/2020 4:56 AM QUALITY ASSURANCE ASSISTANT Fermin Kramer MD LAB BLOOD ORDERABLES F inal Result Performing Organization Address City/[facility] Co de Phone Number [facility] Department [place] [address] * Type and screen (05/12/2020 1:09 AM QUALITY ASSURANCE ASSISTANT) Pathologist [facility] Jasmine, indirect Negative [facility] ABO Rh A Negative [facility] Blood specimen (specimen) 05/12/2020 1:09 AM QUALITY ASSURANCE ASSISTANT 05/12/2020 1:39 AM QUALITY ASSURANCE ASSISTANT Narrative [facility] - 05/12/2020 2:50 AM QUALITY ASSURANCE ASSISTANT Has the patient had Daratumumab or Isatuximab in the past 6 months?->Unknown Yeison Horta MD LAB BLOOD BANK TEST OR DERABLES Final Result [facility] Department [place] [address] * Protime-INR (05/12/2020 1:09 AM QUALITY ASSURANCE ASSISTANT) Pathologist [facility] PT 13.0 8.6 - 13.0 sec [facility] INR 1.2 0.8 - 1.2 [facility] Comment: Interpretive data Oral anticoagulant therapeutic ranges: Venous thromboembolism prophylaxis or treatment: 2.0-3.0 CARDIOLOGY Standard range: 2.0-3.0 High-intensity range: 2.5-3.5 Refer to indication-specific guidelines for appropriate target ranges for prosthetic heart valve replacement. Current interpretive data was last revised on 2019. Blood specimen (specimen) 05/12/2020 1:09 AM QUALITY ASSURANCE ASSISTANT 05/12/2020 1:26 AM QUALITY ASSURANCE ASSISTANT Leslie Aparicio MD LAB BLOOD ORDERABLES Final Resu lt Performing Organization Address [facility] de Phone Number [facility] Department [place] [address] * Comprehensive metabolic panel (05/12/2020 1:09 AM QUALITY ASSURANCE ASSISTANT) [facility] Sodium 139 135 - 145 mmol/L [facility] Potassium, pl 4.1 3.3 - 4.9 mmol/L [facility] Chloride 105 97 - 110 mmol/L [facility] CO2 26 22 - 32 mmol/L [facility] Anion gap 8 2 - 15 mmol/L [facility] BUN 14 8 - 25 mg/dL [facility] Creatinine 1.14 0.80 - 1.30 mg/dL [facility] Glucose 98 70 - 199 mg/dL [facility] Comment: Interpretive Data Fasting glucose [...] interpretive data was last revised 2017. Calcium 9.1 8.5 - 10.3 mg/dL [facility] Bilirubin, total 0.9 0.1 - 1.2 mg/dL [facility] Protein, pl 6.6 6.5 - 8.5 g/dL [facility] Albumin 4.0 3.5 - 5.0 g/dL [facility] Alk phos 65 40 - 130 Units/L [facility] ALT 16 7 - 55 Units/L [facility] AST 20 10 - 50 Units/L [facility] Blood specimen (specimen) 05/12/2020 1:09 AM QUALITY ASSURANCE ASSISTANT 05/12/2020 1:23 AM QUALITY ASSURANCE ASSISTANT Leslie Aparicio MD LAB BLOOD ORDERABLES Final Resu lt Performing Organization Address City/[facility]/ZIP Co de Phone Number [facility] Department [place] [address] * Haptoglobin (05/12/2020 1:09 AM QUALITY ASSURANCE ASSISTANT) Haptoglobin 51.0 30.0 - 200.0 mg/dL [facility] Blood specimen (specimen) 05/12/2020 1:09 AM QUALITY ASSURANCE ASSISTANT 05/12/2020 1:23 AM QUALITY ASSURANCE ASSISTANT us Yeison Horta MD LAB BLOOD ORDERABLES F inal Result [facility] Department [place] [address] documented in this encounter Visit Diagnoses Diagnosis Hematochezia- Primary Blood in stool Gastrointestinal hemorrhage, unspecified gastrointestinal hemorrhage type Hypertension, essential Unspecified essential hypertension HLD (hyperlipidemia) Other and unspecified hyperlipidemia Severe aortic stenosis Aortic valve disorders documented in this encounter Admitting Diagnoses Diagnosis Gastrointestinal hemorrhage Unspecified, hemorrhage of gastrointestinal tract documented in this encounter Administered Medications Inactive Administered Medications - up to 3 most recent administrations Medication Order MAR Action Action Date Dose Rate Site atorvastatin (LIPITOR) tablet 10 mg 10 mg, oral, Daily, First dose (after last modification) on [place] 05/12/20 at 0900 Given 05/14/2020 9:19 AM QUALITY ASSURANCE ASSISTANT 10 mg Given 05/13/2020 9:12 AM QUALITY ASSURANCE ASSISTANT 10 mg Given 05/12/2020 9:23 AM QUALITY ASSURANCE ASSISTANT 10 mg montelukast (SINGULAIR) tablet 10 mg 10 mg, oral, Nightly, First dose (after last modification) on [place]ini 05/12/20 at 2100 Given 05/13/2020 9:58 PM QUALITY ASSURANCE ASSISTANT 10 mg ondansetron (ZOFRAN) injection 4 mg 4 mg, intravenous, Administer over 2 Minutes, Every 6 hours PRN, nausea, vomiting, if not tolerating PO, Starting on Sat05/11/20 at 2105, Indications: Nausea and VomitingIndications:Nausea and Vomiting ondansetron ODT (ZOFRAN-ODT) disintegrating tablet 4 mg 4 mg, oral, Every 6 hours PRN, nausea, vomiting, Starting on Sat05/11/20 at 2105, Indications: Nausea and VomitingIndications:Nausea and Vomiting polyethylene glycol (GoLYTELY) solution 2,000 mL 2,000 mL, oral, 2 times daily, First dose (after last modification) on [place]ini 05/12/20 at 1800, For 2 doses, Administer 2 liters (half of jug) at 18:00 the evening before the procedure (05/12) and 2 liters (half of jug) at 3:00 the morning of the procedure (05/13). Starting at 18:00 on 05/12 have patient rapidly drink 8 ounces of solution every 10 minutes until half of jug (2 liters) is empty. Do not sip. If patient becomes nauseated, decrease frequency of 8 ounces of solution to every 20 minutes. Solution should be completed within 2 hours. The morning of the procedure (05/13) 03:00 have patient rapidly drink 8 ounces every 10 minutes until remaining 2 liters of solution are empty. Using the container provided, add lukewarm water (may use tap water) up to the 4 L water sarah; shake vigorously several times to ensure dissolution of the powder., Indications: Bowel EvacuationIndications:Bowel Evacuation Given 05/13/2020 3:00 AM QUALITY ASSURANCE ASSISTANT 2,000 mL Given 05/12/2020 5:19 PM QUALITY ASSURANCE ASSISTANT 2,000 mL sodium chloride 0.9% 0.9% infusion - ADS Override Pull Starting on Sat05/13/20 at 1104, For 1 dose, Created by cabinet override sodium chloride 0.9% flush 0.5-20 mL 0.5-20 mL, intra-catheter, Every 8 hours scheduled, First dose on Sat05/11/20 at 2200, Flush volume based on line type and size. Given 05/14/2020 6:04 AM QUALITY ASSURANCE ASSISTANT 10 mL Given 05/13/2020 9:59 PM QUALITY ASSURANCE ASSISTANT 10 mL Given 05/13/2020 6:53 AM QUALITY ASSURANCE ASSISTANT 10 mL sodium chloride 0.9% flush 0.5-20 mL 0.5-20 mL, intra-catheter, Every 8 hours scheduled, First dose on Sat05/13/20 at 1400, Flush volume based on line type and size. Given 05/14/2020 6:04 AM QUALITY ASSURANCE ASSISTANT 10 mL Given 05/13/2020 9:59 PM QUALITY ASSURANCE ASSISTANT 10 mL sodium chloride 0.9% flush 0.5-20 mL 0.5-20 mL, intra-catheter, As needed, line care, Starting on Sat05/13/20 at 1102, Flush volume based on line type and size. Flush before and after each use. sodium chloride 0.9% infusion 30 mL/hr, intravenous, Continuous, Starting on Sat05/13/20 at 1145 Rate/Dose Verify 05/13/2020 11:50 AM QUALITY ASSURANCE ASSISTANT New Bag 05/13/2020 11:16 AM QUALITY ASSURANCE ASSISTANT 30 mL/hr 30 mL/hr documented in this encounter Historical Medications * This list may reflect changes made after this encounter. benazepriL (LOTENSIN) 5 mg tabletIndications :hypertension Take 5 mg by mouth every morning 06/28/2020 amLODIPine (NORVASC) 10 mg tabletIndications :hypertension Take 10 mg by mouth every morning 06/28/2020 added in this encounter Active and Recently Administered Medications Times are shown in QUALITY ASSURANCE ASSISTANT. Scheduled Medication Order 05/12/2020 05/13/2020 05/14/2020 atorvastatin (LIPITOR) tablet 10 mg 10 mg, oral, Daily, First dose (after last modification) on Sat05/12/20 at 0900 0923 (Given - Provider: Mirza Dunham RN) 0912 (Given - Provider: Emily Bonilla, RN)1101 ([facility] Hold - Provider: Automatic Transfer Provider - Reason: Patient not available)1415 ([facility] Unhold - Provider: Automatic Transfer Provider) 0919 (Given - Provider: Emily Bonilla, RN) latanoprost (XALATAN) 0.005 % ophthalmic solution 1 drop 1 drop, each eye, Nightly, First dose (after last modification) on Sat05/11/20 at 2145 2239 (Not Given - Provider: Angela Hatfield RN - Reason: Patient/family refused) 1101 ([facility] Hold - Provider: Automatic Transfer Provider - Reason: Patient not available)1415 ([facility] Unhold - Provider: Automatic Transfer Provider)2159 (Not Given - Provider: Keisha Christensen, TREV - Reason: Patient/family refused) montelukast (SINGULAIR) tablet 10 mg 10 mg, oral, Nightly, First dose (after last modification) on Sat05/12/20 at 2100 2240 (Not Given - Provider: Angela Hatfield RN - Reason: Patient/family refused) 1102 ([facility] Hold - Provider: Automatic Transfer Provider - Reason: Patient not available)1415 ([facility] Unhold - Provider: Automatic Transfer Provider)2158 (Given - Provider: Keisha Christensen, TREV) polyethylene glycol (GoLYTELY) solution 2,000 mL (COMPLETED) 2,000 mL, oral, 2 times daily, First dose (after last modification) on Sat05/12/20 at 1800, For 2 doses, Administer 2 liters (half of jug) at 18:00 the evening before the procedure (05/12) and 2 liters (half of jug) at 3:00 the morning of the procedure (05/13). Starting at 18:00 on 05/12 have patient rapidly drink 8 ounces of solution every 10 minutes until half of jug (2 liters) is empty. Do not sip. If patient becomes nauseated, decrease frequency of 8 ounces of solution to every 20 minutes. Solution should be completed within 2 hours. The morning of the procedure (05/13) 03:00 have patient rapidly drink 8 ounces every 10 minutes until remaining 2 liters of solution are empty. Using the container provided, add lukewarm water (may use tap water) up to the 4 L water sarah; shake vigorously several times to ensure dissolution of the powder., Indications: Bowel Evacuation 1719 (Given - Provider: Mirza Dunham, TREV) 0300 (Given - Provider: Angela Hatfield RN) sodium chloride 0.9% flush 0.5-20 mL 0.5-20 mL, intra-catheter, Every 8 hours scheduled, First dose on Sat05/11/20 at 2200, Flush volume based on line type and size. 0701 (Given - Provider: Angela Hatfield RN)1549 (Not Given - Provider: Mirza Dunham RN - Reason: Other)2241 (Given - Provider: Angela Hatfield RN) 0653 (Given - Provider: Angela Hatfield RN)1102 ([facility] Hold - Provider: Automatic Transfer Provider - Reason: Patient not available)1400 (Dose Auto Held - Provider: Automatic Transfer Provider)1415 ([facility] Unhold - Provider: Automatic Transfer Provider)2159 (Given - Provider: Keisha Christensen RN) 0604 (Given - Provider: Keisha Christensen RN) sodium chloride 0.9% flush 0.5-20 mL 0.5-20 mL, intra-catheter, Every 8 hours scheduled, First dose on Sat05/13/20 at 1400, Flush volume based on line type and size. 1400 (Not Given - Provider: Emily Bonilla RN - Reason: Patient not available)2159 (Given - Provider: Keisha Christensen RN) 0604 (Given - Provider: Keisha Christensen RN) Continuous Medication Order 05/12/2020 05/13/2020 05/14/2020 sodium chloride 0.9% infusion (CANCELED) 30 mL/hr, intravenous, Continuous, Starting on Sat05/13/20 at 1145 1116 (New Bag - Provider: Amaris Becker RN)1150 (Rate/Dose Verify - Provider: Shaye Barbour CRNA)1315 (Stopped - Provider: Shaye Barbour CRNA) PRN Medication Order 05/12/2020 05/13/2020 05/14/2020 acetaminophen (TYLENOL) tablet 650 mg 650 mg, oral, Every 4 hours PRN, 1st line for pain, fever, fever greater than 38.3 C, Starting on Sat05/11/20 at 2105, Indications: Fever, Pain 1102 ([facility] Hold - Provider: Automatic Transfer Provider - Reason: Patient not available)1415 ([facility] Unhold - Provider: Automatic Transfer Provider) ondansetron (ZOFRAN) injection 4 mg(Linked Group 1) 4 mg, intravenous, Administer over 2 Minutes, Every 6 hours PRN, nausea, vomiting, if not tolerating PO, Starting on Sat05/11/20 at 2105, Indications: Nausea and Vomiting 1102 ([facility] Hold - Provider: Automatic Transfer Provider - Reason: Patient not available)1415 ([facility] Unhold - Provider: Automatic Transfer Provider) ondansetron ODT (ZOFRAN-ODT) disintegrating tablet 4 mg(Linked Group 1) 4 mg, oral, Every 6 hours PRN, nausea, vomiting, Starting on Sat05/11/20 at 2105, Indications: Nausea and Vomiting 1102 ([facility] Hold - Provider: Automatic Transfer Provider - Reason: Patient not available)1415 ([facility] Unhold - Provider: Automatic Transfer Provider) sodium chloride 0.9% flush 0.5-20 mL 0.5-20 mL, intra-catheter, As needed, line care, Starting on Sat05/11/20 at 2107, Flush volume based on line type and size. Flush before and after each use. 1102 ([facility] Hold - Provider: Automatic Transfer Provider - Reason: Patient not available)1415 ([facility] Unhold - Provider: Automatic Transfer Provider) sodium chloride 0.9% flush 0.5-20 mL 0.5-20 mL, intra-catheter, As needed, line care, Starting on Sat05/13/20 at 1102, Flush volume based on line type and size. Flush before and after each use. Linked Groups Order Group 1: ondansetron ODT (ZOFRAN-ODT) disintegrating tablet 4 mgJump to med 4 mg, oral, Every 6 hours PRN, nausea, vomiting, Starting on Sat05/11/20 at 2105, Indications: Nausea and Vomiting Or ondansetron (ZOFRAN) injection 4 mgJump to med 4 mg, intravenous, Administer over 2 Minutes, Every 6 hours PRN, nausea, vomiting, if not tolerating PO, Starting on Sat05/11/20 at 2105, Indications: Nausea and Vomiting documented in this encounter Orders Medications Ordered That Ernst ht Not Have Been Administered Count Last Ordered Date First Ordered Date Lactated Ringer's (LR) infusion 1 sodium chloride 0.9% flush 0.5-20 mL 2 04/2905/11/2020 polyethylene glycol (GoLYTEL Y) solution 2,000 mL 1 05/12/2020 acetaminophen (TYLENOL) tablet 650 mg 1 latanoprost (XALATAN) 0.005 % ophthalmic solution 1 drop 1 05/11/2020 ondansetron (ZOFRAN) injection 4 mg 1 05/11 ondansetron ODT (ZOFRAN-ODT) disintegrating tablet 4 mg 1 05/11/2020 Diet Count Last Ordered Date First Orde red Date ADULT DISCHARGE DIET 1 05/14/2020 Nursing Count Last Ordered Date First Orde red Date DISCHARGE ACTIVITY 1 05/14/2020 DISCONTINUE VASCULAR ACCESS (SPECIFY) 1 NURSING COMMUNICATION 1 05/13/2020 WEIGH PATIENT 1 05/11/2020 Consult Count Last Ordered Date First Orde red Date IP CONSULT TO GASTROENTEROLOGY 1 05/12/2020 CORE MEASURES Count Last Ordered Date First Ord ered Date REASON FOR NO VTE PROPHYLAXI S - HOSPITAL ADMISSION - MEDICATIONS 1 05/11/2020 Case Request Count Last Ordered Date First Orde red Date CASE REQUEST GI 1 05/12/2020 documented in this encounter Care Teams Alarm Technician Relationship Specialty Start Date End Date Martin López MD [address] [place] [address] PCP - General 06/27/12 Khalif Ca MD [address] [place] [address] (work) Referring Physician Cardiology 04/08/19 documented as of this encounter
--- OUTSIDE RECORDS SUMMARY | 2024-04-20 00:18 | XMS_ITS | Encounter Summary ---
Author Organization [facility] Address [address] [place] [address] Phone Care Team Providers Care Manager Fiber Name Role Phone Martin López MD Primary Care Provider Khalif Ca MD Unavailable [phone] Encounter Details Date Type Department Care Team (Late st Contact Info) Description 05/17/2020 Telephone [facility] Cardiology [address] [facility] 8[address] [place] [address] [place] [id number] Tera Torre MD [address] [place], [place] [id number] Social History Tobacco Use Types Packs/Day Years Used Date Smoking Tobacco: Never Smokeless Tobacco: Never Sex and Gender Information Value Date Recorded Sex Assigned at Not on file Legal Sex Male 9:13 PM UNDERWRITING ACCOUNT REPRESENTATIVE Gender Identity Male 07/25/2023 3:40 PM CDT Sexual Orientation Straight 10/28/2019 9: 50 AM CDT documented as of this encounter Miscellaneous Notes * Telephone Encounter - Tasha Jo RN - 05/17/2020 2:35 PM CST Called spoke w pt [facility] rescheduled for [facility] 05/25. Appt w Dr Worley to follow same day RWRITING ACCOUNT REPRESENTATIVE * Telephone Encounter - Shima Colbert - 05/17/2020 11:28 AM CST Yelitza Pls see encounter from 1-12. Pt would like a call back to discuss procedure that was cancelled. RWRITING ACCOUNT REPRESENTATIVE documented in this encounter Plan of Treatment Not on file documented as of this encounter Visit Diagnoses Not on filedocumented in this encounter Care Teams Manager Fiber Relationship Specialty Start Date End Date Martin López MD [address] [facility] [address] [place] [address] PCP - General 06/27/12 Khalif Ca MD [address] [place] [address] Referring Physician Cardiology 04/08/19 documented as of this encounter
--- OUTSIDE RECORDS SUMMARY | 2024-04-20 00:18 | XMS_ITS | Encounter Summary ---
Author Organization [facility] Healthcare Address [address] [place] [address] Care Team Providers Care Proposition Player Name Role Phone Martin López MD Primary Care Provider Khalif Ca MD Unavailable [phone] Encounter Details Date Type Department Care Team (Late st Contact Info) Description 05/13/2020 11:50 AM CHARTER COACH DRIVER - 05/13/2020 12:30 PM CHARTER COACH DRIVER Surgery [facility] [address] [place] [address] Leslie Aparicio MD [address] [address] [place] [address] COLON REMOVAL SNARE Surgery Details Date/Time Status Location OR Service Patient Class Case Class Case Type Trauma Case? 05/13/2020 11:50 AM [facility] G[facility] Inpatient Urgent - 24 hours Panel 1 Procedure LRB Anes Op Region Wound Class Comments COLON REMOVAL SNARE N/A Monitor Anes thesia Care Colon Class II - Clean Contaminated Endo Add On Colon Biopsy N/A Choice Surgeon Surgeon Role Service Panel Leslie Aparicio MD Primary Gastroenterology 1 Ofe Lazo MD Fellow Gastroenterology 1 documented in this encounter Social History Tobacco Use Types Packs/Day Years Used Date Smoking Tobacco: Never Smokeless Tobacco: Never Sex and Gender Information Value Date Recorded Sex Assigned at Not on file Legal Sex Male 9:13 PM CHARTER COACH DRIVER Gender Identity Male 07/25/2023 3:40 PM CDT Sexual Orientation Straight 10/28/2019 9: 50 AM CDT documented as of this encounter Last Filed Vital Signs Vital Sign Reading Time Taken Comments Blood Pressure 144/90 05/13/2020 11:15 AM CHARTER COACH DRIVER Pulse 84 05/13/2020 11:15 AM CHARTER COACH DRIVER Temperature 36.6 ??C (97.9 ??F) 05/13/2020 11:[address] Respiratory Rate 13 05/13/2020 11:15 AM CHARTER COACH DRIVER Oxygen Saturation 97% 05/13/2020 11:15 AM CHARTER COACH DRIVER Inhaled Oxygen Concentration - - Weight 96.3 kg (212 lb 4.9 oz) 05/11/2020 11:25 PM CHARTER COACH DRIVER Height 175.3 cm (5' 9 ) 05/11/2020 11:25 PM CHARTER COACH DRIVER Body Mass Index 31.35 05/11/2020 11:25 PM CHARTER COACH DRIVER documented in this encounter Discharge Summaries * Darby Petty MD - 05/14/2020 10:32 AM CST Inpatient Discharge Summary BRIEF OVERVIEW Admitting Provider: Fermin Kramer MD Discharge Provider: Fermin Kramer MD Primary Care Physician at Discharge: Martin López MD [phone] Admission Date: 05/11/2020 Discharge Date: 05/14/2020 Admission Location: [facility] Problems/Diagnoses: Principal Problem: Hematochezia Active [...] aortic stenosis that has been asymptomatic.Presented to [facility] on 05/10 for further evaluation. ?? On presentation to [facility], patient was hemodynamically stable. Admission hemoglobin was 16.4, down to 14.8 which has been stable on 2 checks. GI was consulted at [facility] but given his severeaortic stenosis decision was made to transfer him to [facility] for his colonoscopy. Transferred evening of 05 11 ?? Hospital Course: 74yo male with history of severe , HTN, previous GI bleed 2/2 H Pylori ulcer, and diverticulosis who presented with hematochezia of onset 05/10. #Hematochezia Onset 05/10, associated with crampy abdominal pain. [facility] on 05/11. On arrival to [facility], Hgb was 14.8 though still down from [...] hospital for GI bleeding and transferred to [place] for colonoscopy with anesthesia due to your [...] performed your colonoscopy. His office number is [phone] or [phone], if you would like to schedule an [...] mg by mouth nightly Commonly known as: SONIDO Travatan Z 0.004 % drops Administer 1 drop into both eyes nightly Generic drug: travoprost Outpatient Follow-Up: Contact Information for Follow-ups Martin López MD Specialty: Family Medicine Relationship: PCP - General [facility] [address] [place] [address] Next Steps: Follow up [facility] (All Locations) Next Steps: Follow up Questions: Please select the performing region: [facility] (All Locations) # of visits: 1 Referral Status: Pending Authorization Cosigned by Fermin Kramer MD at 05/15/2020 2:12 PM CHARTER COACH DRIVER TER COACH DRIVER TER COACH DRIVER Associated attestation - Fermin Kramer MD - 05/15/2020 2:12 PM CHARTER COACH DRIVER I have seen and examined the patient on 05/14/2020. I agree with the findings and plan of care as documented in the resident's/fellow's note.. documented in this encounter Discharge Instructions * Discharge Instructions* Darby Petty MD - 05/14/2020 9:05 AM CHARTER COACH DRIVER You were admitted to the hospital for GI bleeding and transferred to [place] for colonoscopy with anesthesia due to your [...] performed your colonoscopy. His office number is [phone] or [phone], if you would like to schedule an [...] ask them during your visits. ?? 2017 [employer] Information is for End User's use only and may not be sold, redistributed or otherwise used for commercial purposes. All illustrations and images included in CareNotes?? are the copyrighted property of [employer] or [employer]. The above information is an educational adviser only. It is not intended as medical advice for individual conditions or treatments. Talk to your doctor, nurse or pharmacist before following any medical regimen to see if it is safe and effective for you. TER COACH DRIVER * Appointments* Delphine Clinton RN - 05/13/2020 9:32 AM CHARTER COACH DRIVER This is the earliest appointment with your PCP, Please bring discharge paperwork with list of medicines, insurance card and photo ID to appointment. Please arrive at least 15 minutes early prior to appointment. If you are unable to keep this appointment, it is very important you call to reschedule. TER COACH DRIVER documented in this encounter Medications at Time of Discharge montelukast (SINGULAIR) 10 mg tablet Take 1 tablet (10 mg total) by mouth nightly 04/02/2016 travoprost (TRAVATAN Z) 0.004 % drops Administer 1 drop into both eyes nightly 03/31/2015 amLODIPine (NORVASC) 10 mg tabletIndication s:hypertension Take 10 mg by mouth every morning 03/02/202 1 atorvastatin (LIPITOR) 10 mg tabletIndication s:hyperlipidemia [...] 224 232 245 Recent Labs Lab Units 05/13/20 2159 05/12/20 2211 05/12/20 0109 SODIUM mmol/L 141 139 139 POTASSIUM PLASMA mmol/L 4.0 4.1 4.1 CHLORIDE mmol/L 107 105 105 CO2 mmol/L 26 28 26 BUN SERUM mg/dL 13 12 14 CREATININE mg/dL 1.11 1.08 1.14 CALCIUM mg/dL 9.2 9.1 9.1 Recent Labs Lab Units 05/13/20 21505/12/20 2211 05/12/20 0109 ALBUMIN g/dL 3.8 4.1 4.0 AST Units/L 18 15 20 ALT Units/L 15 16 16 No lab exists for component: TROP, TG Recent Labs Lab Units 05/13/20 21505/12/20 2211 05/12/20 0109 05/11/20 0509 05/10/20 1919 GLUCOSE mg/dL 108 [...] active bleeding, follow up path -Plan to MD home day with strict return precautions Code Status: Full Code Diet: Adult Diet Regular DVT Prophylaxis: SCDs given high risk for bleeding Access: PIV Dispo: home Darby Petty MD Internal Medicine, PGY-2 Cosigned by Fermin Kramer MD at 05/15/2020 2:12 PM CHARTER COACH DRIVER TER COACH DRIVER TER COACH DRIVER Associated attestation - Fermin Kramer MD - 05/15/2020 2:12 PM CHARTER COACH DRIVER I have seen and examined the patient on 05/14/2020. I agree with the findings and plan of care as documented in the resident's/fellow's note.. * Ankit Machado MD - 05/14/2020 6:51 AM CST GENERAL [...] Ariel Sanchez MD at 05/14/2020 3:29 PM CHARTER COACH DRIVER TER COACH DRIVER TER COACH DRIVER Associated attestation - Ariel Sanchez MD - 05/14/2020 3:29 PM CHARTER COACH DRIVER The resident/fellow saw and examined the patient, [...] 232 245 272 Recent Labs Lab Units 05/12/20221005/12/2010805/11/20 0509 SODIUM mmol/L 139 139 140 POTASSIUM PLASMA mmol/L 4.1 4.1 3.7 CHLORIDE mmol/L 105 105 105 CO2 mmol/L 28 26 24 BUN SERUM mg/dL 12 14 13 CREATININE mg/dL 1.08 1.14 0.95 CALCIUM mg/dL 9.1 9.1 9.1 Recent Labs Lab Units 05/12/20221005/12/20 0109 05/10/20 1919 ALBUMIN g/dL 4.1 4.0 4.8 AST Units/L 15 20 16 ALT Units/L 16 16 21 No lab exists for component: TROP, TG Recent Labs Lab Units 05/12/20221005/12/2010805/11/20 0509 05/10/20 1919 GLUCOSE mg/dL 104 98 [...] MD PGY-1 Internal Medicine 05/13/2020 12:07 PM [phone] Cosigned by Fermin Kramer MD at 05/13/2020 2:44 PM CHARTER COACH DRIVER TER COACH DRIVER TER COACH DRIVER Associated attestation - Fermin Kramer MD - 05/13/2020 2:44 PM CHARTER COACH DRIVER I have seen and examined the patient on 05/13/20. I agree with the findings and plan of care as documented in the resident's/fellow's note.. * Delphine Clinton, TREV - 05/12/2020 9:35 AM CST CM Initial Assessment Interview Note Information Obtained From: Patient(at bedside with PPE) (05/12/20 1436) Admission Source: [facility] Impression: Hematochezia Plan Includes: Labs, imaging, GI consult Primary Source of Transportation: [place]-Josi Wagner [phone] to provide transportation at discharge Health Insurance Coverage: Medicare A, [employer] Prescription Coverage: Yes Pharmacy: [facility] Primary Care Provider: Martin López MD Prior to Admission: Primary Caregiver: Self Support System: Spouse/Significant Other Support system contact info (name, phone, availablity): Mary Kay Wagner [phone] Home Care Services: No Durable Medical Equipment: [...] Collaboration with patient, MD, direct care nurse, Software Testing Specialist, Nurse Coordinator and other members of the health care team to assure needed interventions completed. 2. Return patient to optimal level of self-care post discharge. 3. Topper Packer will follow for Discharge Planning - interventions [...] with the aftercare plan. Delphine Clinton RN TER COACH DRIVER documented in this encounter H&P Notes * [...] degrees Pulse: 86 84 89 84 Resp: Temp: 36.8 ??C (98.2 ??F) 36.7 ??C [...] planned procedure for the reasons stated above. TER COACH DRIVER Source Note - Kel Dee MD PhD - 05/12/2020 9:10 AM CHARTER COACH DRIVER General GI Initial Consult Chief complaint: Hematochezia Reason for consult: Hematochezia Requesting provider: Dr. Fermin Kramer HPI: Marizol Wagner is a 74 y.o. male with a PMH of severe , HTN, previous GI bleed due to H. pylori ulcer, diverticulosis who presents with the chief complaint of hematochezia. 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 He was admitted at [facility] in [place] in 2014 for melenic stool requiring 4u pRBC transfused; he was found to have peptic ulcer disease due to H. pylori infection. This was treated and hehas not had recurrence of melena since then. On 05/09 he was in his [place] celebrating his 's birthday and had [place] food, cake, and several alcoholic drinks. The [...] last colonoscopy was 5 years ago at [facility] in [place]; he has been having them every 5 [...] and groundglass pulmonary nodules. On arrival at [facility] ED with VS T 36.7, HR 101, RR 18, BP 163/100 and SpO2 97%. Labs with CMP WNL, CBC with Hgb 14.8 from apparent baseline of 16.4, Plt 235. PT 13.0, INR 1.2. Haptoglobin 51.0. He was evaluated by GI there and recommended for colonoscopy, but was transferred to [facility] becauseof the higher risk of anesthesia given [...] 0109 05/11/20 1109 05/11/20 0509 05/10/20 1919 05/10/201918 WBC K/cumm 9.0 7.9 -- 7.6 -- [...] Ariel Sanchez MD at 05/13/2020 7:53 AM CHARTER COACH DRIVER TER COACH DRIVER TER COACH DRIVER TER COACH DRIVER * Eligio Moncada MD - 05/12/2020 12:07 [...] aortic stenosis that has been asymptomatic.Presented to [facility] on 05/10 for further evaluation. On presentation to [facility], patient was hemodynamically stable. Admission hemoglobin was 16.4, down to 14.8 which has been stable on 2 checks. GI was consulted at [facility] but given his severeaortic stenosis decision was made to transfer him to [facility] for his colonoscopy. Transferred evening of 05 [...] Fermin Kramer MD at 05/12/2020 1:48 PM CHARTER COACH DRIVER TER COACH DRIVER TER COACH DRIVER Associated attestation - Fermin Kramer MD - 05/12/2020 1:48 PM CHARTER COACH DRIVER I have seen and examined the patient [...] Male Attending MD: Leslie Aparicio M.D. Room: [facility] OR POD 5 ROOM 224 [...] scope was passed under direct vision. The [id number] Endoscope was introduced through the anus and advanced to the the cecum, identified by appendiceal orifice and ileocecal valve. The colonoscopy was performed without difficulty. The quality of the bowel preparation was evaluated using the BBPS ([place] Bowel Preparation Scale) with scores of: Right [...] the end of the procedure. Hematin (altered blood/gvrxfq-yojafc-xibe material) was found in the recto-sigmoid colon. 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 He was admitted at [facility] in [place] in 2014 for melenic stool requiring 4u pRBC transfused; he was found to have peptic ulcer disease due to H. pylori infection. This was treated and hehas not had recurrence of melena since then. On 05/09 he was in his [place] celebrating his 's birthday and had [place] food, cake, and several alcoholic drinks. The [...] last colonoscopy was 5 years ago at [facility] in [place]; he has been having them every 5 [...] and groundglass pulmonary nodules. On arrival at [facility] ED with VS T 36.7, HR 101, RR 18, BP 163/100 and SpO2 97%. Labs with CMP WNL, CBC with Hgb 14.8 from apparent baseline of 16.4, Plt 235. PT 13.0, INR 1.2. Haptoglobin 51.0. He was evaluated by GI there and recommended for colonoscopy, but was transferred to [facility] becauseof the higher risk of anesthesia given [...] 0434 05/12/20 0109 05/11/20 1109 05/11/20 0509 05/10/20191805/10/201918 WBC K/cumm 9.0 7.9 -- 7.6 -- [...] Ariel Sanchez MD at 05/13/2020 7:53 AM CHARTER COACH DRIVER TER COACH DRIVER TER COACH DRIVER TER COACH DRIVER Associated attestation - Ariel Sanchez MD - 05/13/2020 7:53 AM CHARTER COACH DRIVER I have seen and examined the patient on 05/12/2020. I agree with the findings and plan of care as documented in the resident's/fellow's note.. documented in this encounter Nursing Notes * Emily Bonilla RN - 05/14/2020 10:32 AM CST Patient reviewed and discharged. discharged required information reviewed with patient, copy given.VANCE removed, pt left for home I/o relatives TER COACH DRIVER documented in this encounter Miscellaneous Notes * Plan of Care - Emily Bonilla RN - 05/14/2020 9:49 AM CST Goals: Prep for discharge Summary: Problem: Health Behavior: Goal: Understanding of discharge needs will improve Outcome: Progressing TER COACH DRIVER * Hospital Course - Darby Petty MD - 05/13/2020 3:42 PM CST 74yo male with history of severe , HTN, previous GI bleed 2/2 H Pylori ulcer, and diverticulosis who presented with hematochezia of onset 05/10. #Hematochezia Onset 05/10, associated with crampy abdominal pain. He initially presented to [facility] then transferred to [facility] on 05/11. On arrival to [facility], Hgb was 14.8 though still down from [...] Continued home regimen: atorvastatin 10 mg daily. TER COACH DRIVER TER COACH DRIVER TER COACH DRIVER TER COACH DRIVER TER COACH DRIVER TER COACH DRIVER * Plan of Care - Emily Bonilla RN - 05/13/2020 12:15 PM CST Goals: Preop and postop care, Monitor labs Summary: Problem: Health Behavior: Goal: Understanding of discharge needs will improve Outcome: Progressing TER COACH DRIVER * Assessment & Plan Note - Yeison Ann MD - 05/13/2020 12:06 PM CHARTER COACH DRIVER Associated Problem(s): Severe aortic stenosis Was scheduled for outpatient cath with Dr. Torre on 05/11/20. Asymptomatic. SHELDON was consulted forhis colonoscopy on 05/13/20. Plan: - avoid large volume boluses - continue to monitor TER COACH DRIVER * Assessment & Plan Note - Yeison Ann MD - 05/13/2020 12:05 PM CHARTER COACH DRIVER Associated Problem(s): HLD (hyperlipidemia) Home regimen: atorvastatin 10 mg daily. Plan: - continue atorvastatin TER COACH DRIVER * Assessment & Plan Note - Yeison Ann MD - 05/13/2020 12:05 PM CHARTER COACH DRIVER Associated Problem(s): Hypertension, essential Home regimen: benazepril and amlodipine. Plan: - HOLD anti-hypertensives in setting of GIB TER COACH DRIVER * Assessment & Plan Note - Yeison Ann MD - 05/13/2020 12:03 PM CHARTER COACH DRIVER Associated Problem(s): Hematochezia 1 day history of [...] GI consult recs - ADAT after colonoscopy TER COACH DRIVER * Plan of Care - Mirza Dunham RN - 05/12/2020 3:07 PM CHARTER COACH DRIVER Goals: Patient will have adequate PO intake. Summary: Currently patient continues to be on a clear liquid diet. Will advance as tolerated after patient procedure. Will continue to monitor patient. TER COACH DRIVER documented in this encounter Plan of Treatment Not on file documented as of this encounter Procedures Procedure Name Priority Date/Time Associated Diagnosis Comments DIFFERENTIAL AUTO Timed 05/13/2020 11: 27 PM CHARTER COACH DRIVER CBC WITH AUTO DIFFERENTIAL Timed 05/13/2020 11:27 PM CHARTER COACH DRIVER APTT Routine 05/13/2020 9:59 PM CHARTER COACH DRIVER PROTIME-INR Routine 05/13/2020 9:59 PM CHARTER COACH DRIVER COMPREHENSIVE METABOLIC PANEL Routine 05/13/2020 9:59 PM CHARTER COACH DRIVER SURGICAL PATHOLOGY Routine 05/13/2020 12 :30 PM CHARTER COACH DRIVER Gastrointestinal hemorrhage, unspecified gastrointestinal hemorrhage type COLONOSCOPY 05/13/2020 12:01 PM CHARTER COACH DRIVER ENDO ADD ON COLON BIOPSY 05/13/2020 11:54 AM CHARTER COACH DRIVER Gastrointestinal hemorrhage, unspecified gastrointestinal hemorrhage type COLON REMOVAL SNARE 05/13/2020 1 1:54 AM CHARTER COACH DRIVER Gastrointestinal hemorrhage, unspecified gastrointestinal hemorrhage type DIFFERENTIAL AUTO Timed 05/13/2020 10: 19 AM CHARTER COACH DRIVER CBC WITH AUTO DIFFERENTIAL Timed 05/13/2020 10:19 AM CHARTER COACH DRIVER DIFFERENTIAL AUTO Timed 05/12/2020 10: 11 PM CHARTER COACH DRIVER CBC WITH AUTO DIFFERENTIAL Timed 05/12/2020 10:11 PM CHARTER COACH DRIVER APTT Routine 05/12/2020 10:11 PM CHARTER COACH DRIVER PROTIME-INR Routine 05/12/2020 10:11 PM CHARTER COACH DRIVER COMPREHENSIVE METABOLIC PANEL Routine 05/12/2020 10:11 PM CHARTER COACH DRIVER COVID-19 CORONAVIRUS RNA Routine 05/12/2020 1:42 PM CHARTER COACH DRIVER ECG 12-LEAD Routine 05/12/2020 1:30 PM CHARTER COACH DRIVER DIFFERENTIAL AUTO Timed 05/12/2020 12: 12 PM CHARTER COACH DRIVER CBC WITH AUTO DIFFERENTIAL Timed 05/12/2020 12:12 PM CHARTER COACH DRIVER DIFFERENTIAL AUTO Timed 05/12/2020 4:3 4 AM CHARTER COACH DRIVER CBC WITH AUTO DIFFERENTIAL Timed 05/12/2020 4:34 AM CHARTER COACH DRIVER PROTIME-INR Routine 05/12/2020 1:09 AM CHARTER COACH DRIVER TYPE AND SCREEN Timed 05/12/2020 1:09 AM CHARTER COACH DRIVER HAPTOGLOBIN Routine 05/12/2020 1:09 AM CHARTER COACH DRIVER COMPREHENSIVE METABOLIC PANEL Routine 05/12/2020 1:09 AM CHARTER COACH DRIVER documented in this encounter Results * Differential, auto (05/13/2020 11:27 PM CHARTER COACH DRIVER) Neutrophil abs 5.9 1.7 - 6.5 K/cumm [facility] Imm gran abs 0.0 0.0 - 0.1 K/cumm [facility] Lymphocyte abs 0.9 0.8 - 3.3 K/cumm [facility] Monocyte abs 0.8 0.2 - 0.8 K/cumm [facility] Eosinophil abs 0.2 0.0 - 0.5 K/cumm [facility] Basophil abs 0.1 0.0 - 0.1 K/cumm [facility] Neutrophil pct 74.6 % [facility] Comment: Interpretive Data Percent cell count reference ranges are not reported, since discordance with absolute values may lead to misinterpretation of CBC data. Current Interpretive Data was last revised on 2017. Imm gran pct 0.3 % [facility] Comment: Interpretive Data Percent cell count reference ranges are not reported, since discordance with absolute values may lead to misinterpretation of CBC data. Current Interpretive Data was last revised on 2017. Lymphocyte pct 11.7 % [facility] Comment: Interpretive Data Percent cell count reference ranges are not reported, since discordance with absolute values may lead to misinterpretation of CBC data. Current Interpretive Data was last revised on 2017. Monocyte pct 10.4 % [facility] Comment: Interpretive Data Percent cell count reference ranges are not reported, since discordance with absolute values may lead to misinterpretation of CBC data. Current Interpretive Data was last revised on 2017. Eosinophil pct 2.4 % [facility] Comment: Interpretive Data Percent cell count reference ranges are not reported, since discordance with absolute values may lead to misinterpretation of CBC data. Current Interpretive Data was last revised on 2017. Basophil pct 0.6 % [facility] Comment: Interpretive Data Percent cell count reference ranges are not reported, since discordance with absolute values may lead to misinterpretation of CBC data. Current Interpretive Data was last revised on 2017. Blood specimen (specimen) 05/13/2020 11:27 PM CHARTER COACH DRIVER 05/13/2020 11:50 PM CHARTER COACH DRIVER Fermin Kramer MD LAB BLOOD ORDERABLES F inal Result Performing Organization Address [facility] de Phone Number [facility] Department [place] [address] * (ABNORMAL) CBC with auto differential (05/13/2020 11:27 PM CHARTER COACH DRIVER) [facility] WBC 7.9 3.8 - 9.9 K/cumm [facility] Hgb 13.1 13.0 - 17.5 g/dL [facility] Hct 38.6(L) 38.9 - 50.3 % [facility] Plt 224 150 - 400 K/cumm [facility] MPV 11.4 9.1 - 12.3 fL [facility] RBC 4.60 4.30 - 5.80 M/cumm [facility] MCV 83.9 81.3 - 96.4 fL [facility] MCH 28.5 27.1 - 33.3 pg [facility] MCHC 33.9 32.3 - 35.7 g/dL [facility] RDW CV 13.6 11.1 - 14.9 % [facility] RDW SD 41.7 35.7 - 48.1 fL [facility] NRBC abs 0.00 0.00 - 0.01 K/cumm [facility] Blood specimen (specimen) 05/13/2020 11:27 PM CHARTER COACH DRIVER 05/13/2020 11:50 PM CHARTER COACH DRIVER Fermin Kramer MD LAB BLOOD ORDERABLES F inal Result Performing Organization Address [facility] Co de Phone Number [facility] Department [place] [address] * aPTT (05/13/2020 9:59 PM CHARTER COACH DRIVER) [facility] aPTT 28 25 - 37 sec [facility] Comment: Interpretive data Heparin therapeutic range: 60-90 seconds Range based on correlation with therapeutic heparin activity range of 0.3-0.7 units/ml. Current interpretive data was last revised on 2019. Blood specimen (specimen) 05/13/2020 9:59 PM CHARTER COACH DRIVER 05/13/2020 10:27 PM CHARTER COACH DRIVER Leslie Aparicio MD LAB BLOOD ORDERABLES Final Resu lt Performing Organization Address [facility] de Phone Number [facility] [place] [address] * (ABNORMAL) Protime-INR (05/13/2020 9:59 PM CHARTER COACH DRIVER) Pathologist [facility] PT 13.1(H) 8.6 - 13.0 sec [facility] INR 1.2 0.8 - 1.2 [facility] Comment: Interpretive data Oral anticoagulant therapeutic ranges: Venous thromboembolism prophylaxis or treatment: 2.0-3.0 CARDIOLOGY Standard range: 2.0-3.0 High-intensity range: 2.5-3.5 Refer to indication-specific guidelines for appropriate target ranges for prosthetic heart valve replacement. Current interpretive data was last revised on 2019. Blood specimen (specimen) 05/13/2020 9:59 PM CHARTER COACH DRIVER 05/13/2020 10:27 PM CHARTER COACH DRIVER Leslie Aparicio MD LAB BLOOD ORDERABLES Final Resu lt Performing Organization Address [facility] de Phone Number [facility] [place] [address] * (ABNORMAL) Comprehensive metabolic panel (05/13/2020 9:59 PM CHARTER COACH DRIVER) Pathologist [facility] Sodium 141 135 - 145 mmol/L [facility] Potassium, pl 4.0 3.3 - 4.9 mmol/L [facility] Chloride 107 97 - 110 mmol/L [facility] CO2 26 22 - 32 mmol/L [facility] Anion gap 8 2 - 15 mmol/L [facility] BUN 13 8 - 25 mg/dL [facility] Creatinine 1.11 0.80 - 1.30 mg/dL [facility] Glucose 108 70 - 199 mg/dL [facility] Comment: Interpretive Data Fasting glucose [...] 2017. Calcium 9.2 8.5 - 10.3 mg/dL [facility] Bilirubin, total 0.6 0.1 - 1.2 mg/dL [facility] Protein, pl 6.2(L) 6.5 - 8.5 g/dL [facility] Albumin 3.8 3.5 - 5.0 g/dL [facility] Alk phos 67 40 - 130 Units/L [facility] ALT 15 7 - 55 Units/L [facility] AST 18 10 - 50 Units/L [facility] Blood specimen (specimen) 05/13/2020 9:59 PM CHARTER COACH DRIVER 05/13/2020 10:25 PM CHARTER COACH DRIVER Leslie Aparicio MD LAB BLOOD ORDERABLES Final Resu lt [facility] [place] [address] * Surgical pathology (05/13/2020 12:30 PM CHARTER COACH DRIVER) Tissue (Polyp(s), colon/colorectal, esophageal, gastric) 05/13/2020 12:30 PM CHARTER COACH DRIVER Narrative PATHOLOGY [facility] - 05/16/2020 11:52 AM CHARTER COACH DRIVER EPIC results best viewed via link to PDF [facility] M[facility] [place] [address] SURGICAL PATHOLOGY REPORT FINAL Patient Name: ?? MARIZOL WAGNER Gender: ??M : ??1945 (Age: 74) Address: ??[address] [place] [address] , [place], [place] ??[address] Hospital #: ??[id number] Taken:05/13/2020 Received:05/13/2020 Reported: 05/16/2020 Patient Type: [facility] Inpatient ?? Service: Medical Location: [facility] Physician(s): ??Dean Gonzalez M.D. Diagnosis: A. ??Large [...] ??Labeled A1. ??Jar 0. dxb/05/13/2020 18:06 PA(s): TAMAR Starks By this signature, I attest that the above diagnosis is based upon my personal examination of the slides(and/or other material). Addenda/Procedures The performance characteristics of some immunohistochemical stains, fluorescence in-situ hybridization tests and immunophenotyping by flow cytometry cited in this report (if any) were determined by the Surgical Pathology Department at [facility] as part of an ongoing quality control inspector heading program and in compliance with federally mandated [...] determined by the Surgical Pathology Department of [facility]. ??It has not been cleared or approved by the U. S. Food and Drug Administration. IMAGES AND SCANNED DOCUMENTS, IF INCLUDED, ONLY VIEWABLE IN PDF VERSION OF REPORT Leslie Aparicio MD LAB PATHOLOGY ORDERABLES Final Result PATHOLOGY [facility] 3rd Floor [place], [place] [phone] * COLONOSCOPY (05/13/2020 12:01 PM CHARTER COACH DRIVER) Anatomical Region Laterality Modality Other Narrative Procedure Note Leslie Aparicio MD - 05/13/2020 12:01 PM CST [facility] Patient Name: Marizol Wagner Procedure Date: 05/13/2020 12:01 PM Date of : 1945 Admit Type: Inpatient Age: 74 Gender: Male Attending MD: Leslie Aparicio M.D. Room: [facility] OR POD 5 ROOM 224 [...] The scope was passed under direct vision.The [id number] Endoscope was introduced throughthe anus and advanced to the the cecum, identified by appendiceal orifice and ileocecal valve. The colonoscopy was performed without difficulty. The quality of the bowel preparation was evaluated using the BBPS ([place] Bowel Preparation Scale) withscores of: Right Colon [...] the end of the procedure. Hematin (altered blood/lrefae-kmlnky-ygzs material) was found in the recto-sigmoid colon. [...] On: 05/13/2020 12:01 PM Recognized by the [place] [employer] for promoting quality in endoscopy us Leslie Aparicio MD ENDOSCOPY PROCEDURES Final Resu lt * (ABNORMAL) Differential, auto (05/13/2020 10:19 AM CHARTER COACH DRIVER) Neutrophil abs 6.0 1.7 - 6.5 K/cumm [facility] Imm gran abs 0.0 0.0 - 0.1 K/cumm [facility] Lymphocyte abs 0.7(L) 0.8 - 3.3 K/cumm [facility] Monocyte abs 0.6 0.2 - 0.8 K/cumm [facility] Eosinophil abs 0.1 0.0 - 0.5 K/cumm [facility] Basophil abs 0.0 0.0 - 0.1 K/cumm [facility] Neutrophil pct 81.5 % [facility] Comment: Interpretive Data Percent cell count reference ranges are not reported, since discordance with absolute values may lead to misinterpretation of CBC data. Current Interpretive Data was last revised on 2017. Imm gran pct 0.3 % [facility] Comment: Interpretive Data Percent cell count reference ranges are not reported, since discordance with absolute values may lead to misinterpretation of CBC data. Current Interpretive Data was last revised on 2017. Lymphocyte pct 9.2 % [facility] Comment: Interpretive Data Percent cell count reference ranges are not reported, since discordance with absolute values may lead to misinterpretation of CBC data. Current Interpretive Data was last revised on 2017. Monocyte pct 7.4 % [facility] Comment: Interpretive Data Percent cell count reference ranges are not reported, since discordance with absolute values may lead to misinterpretation of CBC data. Current Interpretive Data was last revised on 2017. Eosinophil pct 1.1 % [facility] Comment: Interpretive Data Percent cell count reference ranges are not reported, since discordance with absolute values may lead to misinterpretation of CBC data. Current Interpretive Data was last revised on 2017. Basophil pct 0.5 % [facility] Comment: Interpretive Data Percent cell count reference ranges are not reported, since discordance with absolute values may lead to misinterpretation of CBC data. Current Interpretive Data was last revised on 2017. Blood specimen (specimen) 05/13/2020 10:19 AM CHARTER COACH DRIVER 05/13/2020 10:40 AM CHARTER COACH DRIVER us Fermin Kramer MD LAB BLOOD ORDERABLES F inal Result [facility] [place] [address] * CBC with auto differential (05/13/2020 10:19 AM CHARTER COACH DRIVER) WBC 7.4 3.8 - 9.9 K/cumm [facility] Hgb 14.8 13.0 - 17.5 g/dL [facility] Hct 43.1 38.9 - 50.3 % [facility] Plt 232 150 - 400 K/cumm [facility] MPV 11.6 9.1 - 12.3 fL [facility] RBC 5.09 4.30 - 5.80 M/cumm [facility] MCV 84.7 81.3 - 96.4 fL [facility] MCH 29.1 27.1 - 33.3 pg [facility] MCHC 34.3 32.3 - 35.7 g/dL [facility] RDW CV 13.6 11.1 - 14.9 % [facility] RDW SD 42.3 35.7 - 48.1 fL [facility] NRBC abs 0.00 0.00 - 0.01 K/cumm [facility] Blood specimen (specimen) 05/13/2020 10:19 AM CHARTER COACH DRIVER 05/13/2020 10:40 AM CHARTER COACH DRIVER us Leslie Aparicio MD LAB BLOOD ORDERABLES Final Resu lt [facility] [place] [address] * Differential, auto (05/12/2020 10:11 PM CHARTER COACH DRIVER) Neutrophil abs 5.7 1.7 - 6.5 K/cumm [facility] Imm gran abs 0.0 0.0 - 0.1 K/cumm [facility] Lymphocyte abs 0.9 0.8 - 3.3 K/cumm [facility] Monocyte abs 0.8 0.2 - 0.8 K/cumm [facility] Eosinophil abs 0.2 0.0 - 0.5 K/cumm [facility] Basophil abs 0.0 0.0 - 0.1 K/cumm [facility] Neutrophil pct 74.8 % [facility] Comment: Interpretive Data Percent cell count reference ranges are not reported, since discordance with absolute values may lead to misinterpretation of CBC data. Current Interpretive Data was last revised on 2017. Imm gran pct 0.5 % [facility] Comment: Interpretive Data Percent cell count reference ranges are not reported, since discordance with absolute values may lead to misinterpretation of CBC data. Current Interpretive Data was last revised on 2017. Lymphocyte pct 11.5 % [facility] Comment: Interpretive Data Percent cell count reference ranges are not reported, since discordance with absolute values may lead to misinterpretation of CBC data. Current Interpretive Data was last revised on 2017. Monocyte pct 10.3 % [facility] Comment: Interpretive Data Percent cell count reference ranges are not reported, since discordance with absolute values may lead to misinterpretation of CBC data. Current Interpretive Data was last revised on 2017. Eosinophil pct 2.6 % [facility] Comment: Interpretive Data Percent cell count reference ranges are not reported, since discordance with absolute values may lead to misinterpretation of CBC data. Current Interpretive Data was last revised on 2017. Basophil pct 0.3 % [facility] Comment: Interpretive Data Percent cell count reference ranges are not reported, since discordance with absolute values may lead to misinterpretation of CBC data. Current Interpretive Data was last revised on 2017. Blood specimen (specimen) 05/12/2020 10:11 PM CHARTER COACH DRIVER 05/12/2020 10:43 PM CHARTER COACH DRIVER us Fermin Kramer MD LAB BLOOD ORDERABLES F inal Result [facility] [place] [address] * CBC with auto differential (05/12/2020 10:11 PM CHARTER COACH DRIVER) [facility] WBC 7.6 3.8 - 9.9 K/cumm [facility] Hgb 13.7 13.0 - 17.5 g/dL [facility] Hct 40.2 38.9 - 50.3 % [facility] Plt 245 150 - 400 K/cumm [facility] MPV 11.4 9.1 - 12.3 fL [facility] RBC 4.78 4.30 - 5.80 M/cumm [facility] MCV 84.1 81.3 - 96.4 fL [facility] MCH 28.7 27.1 - 33.3 pg [facility] MCHC 34.1 32.3 - 35.7 g/dL [facility] RDW CV 13.7 11.1 - 14.9 % [facility] RDW SD 42.3 35.7 - 48.1 fL [facility] NRBC abs 0.00 0.00 - 0.01 K/cumm [facility] Blood specimen (specimen) 05/12/2020 10:11 PM CHARTER COACH DRIVER 05/12/2020 10:43 PM CHARTER COACH DRIVER Leslie Aparicio MD LAB BLOOD ORDERABLES Final Resu lt [facility] [place] [address] * aPTT (05/12/2020 10:11 PM CHARTER COACH DRIVER) Pathologist [facility] aPTT 29 25 - 37 sec [facility] Comment: Interpretive data Heparin therapeutic range: 60-90 seconds Range based on correlation with therapeutic heparin activity range of 0.3-0.7 units/ml. Current interpretive data was last revised on 2019. Blood specimen (specimen) 05/12/2020 10:11 PM CHARTER COACH DRIVER 05/12/2020 10:49 PM CHARTER COACH DRIVER Leslie pAaricio MD LAB BLOOD ORDERABLES Final Resu lt Performing Organization Address [facility] Co de Phone Number [facility] [place] [address] * (ABNORMAL) Protime-INR (05/12/2020 10:11 PM CHARTER COACH DRIVER) PT 13.3(H) 8.6 - 13.0 sec [facility] INR 1.2 0.8 - 1.2 [facility] Comment: Interpretive data Oral anticoagulant therapeutic ranges: Venous thromboembolism prophylaxis or treatment: 2.0-3.0 CARDIOLOGY Standard range: 2.0-3.0 High-intensity range: 2.5-3.5 Refer to indication-specific guidelines for appropriate target ranges for prosthetic heart valve replacement. Current interpretive data was last revised on 2019. Blood specimen (specimen) 05/12/2020 10:11 PM CHARTER COACH DRIVER 05/12/2020 10:49 PM CHARTER COACH DRIVER Leslie Aparicio MD LAB BLOOD ORDERABLES Final Resu lt Performing Organization Address [facility] Co de Phone Number [facility] [place] [address] * Comprehensive metabolic panel (05/12/2020 10:11 PM CHARTER COACH DRIVER) Pathologist [facility] Sodium 139 135 - 145 mmol/L [facility] Potassium, pl 4.1 3.3 - 4.9 mmol/L [facility] Chloride 105 97 - 110 mmol/L [facility] CO2 28 22 - 32 mmol/L [facility] Anion gap 6 2 - 15 mmol/L [facility] BUN 12 8 - 25 mg/dL [facility] Creatinine 1.08 0.80 - 1.30 mg/dL [facility] Glucose 104 70 - 199 mg/dL [facility] Comment: Interpretive Data Fasting glucose [...] 2017. Calcium 9.1 8.5 - 10.3 mg/dL [facility] Bilirubin, total 0.9 0.1 - 1.2 mg/dL [facility] Protein, pl 6.7 6.5 - 8.5 g/dL [facility] Albumin 4.1 3.5 - 5.0 g/dL [facility] Alk phos 67 40 - 130 Units/L [facility] ALT 16 7 - 55 Units/L [facility] AST 15 10 - 50 Units/L [facility] Blood specimen (specimen) 05/12/2020 10:11 PM CHARTER COACH DRIVER 05/12/2020 10:43 PM CHARTER COACH DRIVER us Leslie Aparicio MD LAB BLOOD ORDERABLES Final Resu lt [facility] [place] [address] * COVID-19 Coronavirus RNA Nasopharyngeal (05/12/2020 1:42 PM CHARTER COACH DRIVER) COVID-19 RNA Not Detected [facility] Comment: Interpretive Data Testing performed by the [facility] Molecular Infectious Disease [facility]. The 2019-Novel Coronavirus [...] revised on 2019. First COVID-19 test? Unknown [facility] Employeed in healthcare? No [facility] status? No [facility] Group care resident? No [facility] Hospitalized? Yes [facility] Is patient in ICU? No [facility] Symptomatic as defined by CDC? No [facility] Nasopharyngeal 05/12/2020 1: 42 PM CHARTER COACH DRIVER 05/12/2020 2:50 PM CHARTER COACH DRIVER Narrative DANA MEDEIROS - 05/12/2020 9:36 PM CHARTER COACH DRIVER What is the reason for testing?->Asymptomatic screening prior to procedure or surgery Keo Young NP LAB MICROBIOLOGY - GENER AL ORDERABLES Final Result Performing Organization Address [facility] Co de Phone Number [facility] [place] [address] * ECG 12 lead (05/12/2020 1:30 PM CHARTER COACH DRIVER) Ventricular Rate EKG/Min 85 BPM [facility] Atrial Rate 85 BPM [facility] HI-Interval (MSEC) 146 ms [facility] QRS-Interval (MSEC) 100 ms [facility] QT-Interval (MSEC) 374 ms [facility] QTc 445 ms [facility] P [place] 48 degrees [facility] R [place] 5 degrees [facility] T [place] 66 degrees [facility] Diagnosis Normal sinus rhythm Nonspecific ST abnormality Abnormal ECG No previous ECGs available Confirmed by NELA COOK M.D ([id number]) on 05/13/2020 5:53:49 PM [facility] 05/12/2020 1:30 PM CHARTER COACH DRIVER 05/13/2020 5:53 PM CHARTER COACH DRIVER us Keo Young NP ECG ORDERABLES Final Re sult Performing Organization Address [facility] Co de Phone Number [facility] * (ABNORMAL) Differential, auto (05/12/2020 12:12 PM CHARTER COACH DRIVER) Neutrophil abs 7.2(H) 1.7 - 6.5 K/cumm [facility] Imm gran abs 0.0 0.0 - 0.1 K/cumm [facility] Lymphocyte abs 0.9 0.8 - 3.3 K/cumm [facility] Monocyte abs 0.8 0.2 - 0.8 K/cumm [facility] Eosinophil abs 0.1 0.0 - 0.5 K/cumm [facility] Basophil abs 0.0 0.0 - 0.1 K/cumm [facility] Neutrophil pct 80.0 % [facility] Comment: Interpretive Data Percent cell count reference ranges are not reported, since discordance with absolute values may lead to misinterpretation of CBC data. Current Interpretive Data was last revised on 2017. Imm gran pct 0.3 % [facility] Comment: Interpretive Data Percent cell count reference ranges are not reported, since discordance with absolute values may lead to misinterpretation of CBC data. Current Interpretive Data was last revised on 2017. Lymphocyte pct 9.8 % [facility] Comment: Interpretive Data Percent cell count reference ranges are not reported, since discordance with absolute values may lead to misinterpretation of CBC data. Current Interpretive Data was last revised on 2017. Monocyte pct 8.3 % [facility] Comment: Interpretive Data Percent cell count reference ranges are not reported, since discordance with absolute values may lead to misinterpretation of CBC data. Current Interpretive Data was last revised on 2017. Eosinophil pct 1.2 % [facility] Comment: Interpretive Data Percent cell count reference ranges are not reported, since discordance with absolute values may lead to misinterpretation of CBC data. Current Interpretive Data was last revised on 2017. Basophil pct 0.4 % [facility] Comment: Interpretive Data Percent cell count reference ranges are not reported, since discordance with absolute values may lead to misinterpretation of CBC data. Current Interpretive Data was last revised on 2017. Blood specimen (specimen) 05/12/2020 12:12 PM CHARTER COACH DRIVER 05/12/2020 12:26 PM CHARTER COACH DRIVER us Fermin Kramer MD LAB BLOOD ORDERABLES F inal Result [facility] [place] [address] * CBC with auto differential (05/12/2020 12:12 PM CHARTER COACH DRIVER) WBC 9.0 3.8 - 9.9 K/cumm [facility] Hgb 14.9 13.0 - 17.5 g/dL [facility] Hct 43.8 38.9 - 50.3 % [facility] Plt 272 150 - 400 K/cumm [facility] MPV 11.4 9.1 - 12.3 fL [facility] RBC 5.24 4.30 - 5.80 M/cumm [facility] MCV 83.6 81.3 - 96.4 fL [facility] MCH 28.4 27.1 - 33.3 pg [facility] MCHC 34.0 32.3 - 35.7 g/dL [facility] RDW CV 13.8 11.1 - 14.9 % [facility] RDW SD 41.8 35.7 - 48.1 fL [facility] NRBC abs 0.00 0.00 - 0.01 K/cumm [facility] Blood specimen (specimen) 05/12/2020 12:12 PM CHARTER COACH DRIVER 05/12/2020 12:26 PM CHARTER COACH DRIVER us Fermin Kramer MD LAB BLOOD ORDERABLES F inal Result [facility] [place] [address] * (ABNORMAL) Differential, auto (05/12/2020 4:34 AM CHARTER COACH DRIVER) [facility] Neutrophil abs 5.5 1.7 - 6.5 K/cumm [facility] Imm gran abs 0.0 0.0 - 0.1 K/cumm [facility] Lymphocyte abs 1.2 0.8 - 3.3 K/cumm [facility] Monocyte abs 0.9(H) 0.2 - 0.8 K/cumm [facility] Eosinophil abs 0.3 0.0 - 0.5 K/cumm [facility] Basophil abs 0.0 0.0 - 0.1 K/cumm [facility] Neutrophil pct 69.8 % [facility] Comment: Interpretive Data Percent cell count reference ranges are not reported, since discordance with absolute values may lead to misinterpretation of CBC data. Current Interpretive Data was last revised on 2017. Imm gran pct 0.5 % [facility] Comment: Interpretive Data Percent cell count reference ranges are not reported, since discordance with absolute values may lead to misinterpretation of CBC data. Current Interpretive Data was last revised on 2017. Lymphocyte pct 14.8 % [facility] Comment: Interpretive Data Percent cell count reference ranges are not reported, since discordance with absolute values may lead to misinterpretation of CBC data. Current Interpretive Data was last revised on 2017. Monocyte pct 11.1 % [facility] Comment: Interpretive Data Percent cell count reference ranges are not reported, since discordance with absolute values may lead to misinterpretation of CBC data. Current Interpretive Data was last revised on 2017. Eosinophil pct 3.3 % [facility] Comment: Interpretive Data Percent cell count reference ranges are not reported, since discordance with absolute values may lead to misinterpretation of CBC data. Current Interpretive Data was last revised on 2017. Basophil pct 0.5 % [facility] Comment: Interpretive Data Percent cell count reference ranges are not reported, since discordance with absolute values may lead to misinterpretation of CBC data. Current Interpretive Data was last revised on 2017. Blood specimen (specimen) 05/12/2020 4:34 AM CHARTER COACH DRIVER 05/12/2020 4:56 AM CHARTER COACH DRIVER Fermin Kramer MD LAB BLOOD ORDERABLES F inal Result [facility] [place] [address] * CBC with auto differential (05/12/2020 4:34 AM CHARTER COACH DRIVER) WBC 7.9 3.8 - 9.9 K/cumm [facility] Hgb 14.1 13.0 - 17.5 g/dL [facility] Hct 40.7 38.9 - 50.3 % [facility] Plt 235 150 - 400 K/cumm [facility] MPV 11.3 9.1 - 12.3 fL [facility] RBC 4.79 4.30 - 5.80 M/cumm [facility] MCV 85.0 81.3 - 96.4 fL [facility] MCH 29.4 27.1 - 33.3 pg [facility] MCHC 34.6 32.3 - 35.7 g/dL [facility] RDW CV 13.8 11.1 - 14.9 % [facility] RDW SD 43.1 35.7 - 48.1 fL [facility] NRBC abs 0.00 0.00 - 0.01 K/cumm [facility] Blood specimen (specimen) 05/12/2020 4:34 AM CHARTER COACH DRIVER 05/12/2020 4:56 AM CHARTER COACH DRIVER Fermin Kramer MD LAB BLOOD ORDERABLES F inal Result Performing Organization Address City/[facility]/ZIP Co de Phone Number [facility] [place] [address] * Type and screen (05/12/2020 1:09 AM CHARTER COACH DRIVER) Jasmine, indirect Negative [facility] ABO Rh A Negative [facility] Blood specimen (specimen) 05/12/2020 1:09 AM CHARTER COACH DRIVER 05/12/2020 1:39 AM CHARTER COACH DRIVER Narrative [facility] - 05/12/2020 2:50 AM CHARTER COACH DRIVER Has the patient had Daratumumab or Isatuximab in the past 6 months?->Unknown Yeison Horta MD LAB BLOOD BANK TEST OR DERABLES Final Result Performing Organization Address City/[facility]/ZIP Co de Phone Number [facility] [place] [address] * Protime-INR (05/12/2020 1:09 AM CHARTER COACH DRIVER) PT 13.0 8.6 - 13.0 sec [facility] INR 1.2 0.8 - 1.2 [facility] Comment: Interpretive data Oral anticoagulant therapeutic ranges: Venous thromboembolism prophylaxis or treatment: 2.0-3.0 CARDIOLOGY Standard range: 2.0-3.0 High-intensity range: 2.5-3.5 Refer to indication-specific guidelines for appropriate target ranges for prosthetic heart valve replacement. Current interpretive data was last revised on 2019. Blood specimen (specimen) 05/12/2020 1:09 AM CHARTER COACH DRIVER 05/12/2020 1:26 AM CHARTER COACH DRIVER us Leslie Aparicio MD LAB BLOOD ORDERABLES Final Resu lt [facility] [place] [address] * Comprehensive metabolic panel (05/12/2020 1:09 AM CHARTER COACH DRIVER) Sodium 139 135 - 145 mmol/L [facility] Potassium, pl 4.1 3.3 - 4.9 mmol/L [facility] Chloride 105 97 - 110 mmol/L [facility] CO2 26 22 - 32 mmol/L [facility] Anion gap 8 2 - 15 mmol/L [facility] BUN 14 8 - 25 mg/dL [facility] Creatinine 1.14 0.80 - 1.30 mg/dL [facility] Glucose 98 70 - 199 mg/dL [facility] Comment: Interpretive Data Fasting glucose [...] 2017. Calcium 9.1 8.5 - 10.3 mg/dL [facility] Bilirubin, total 0.9 0.1 - 1.2 mg/dL [facility] Protein, pl 6.6 6.5 - 8.5 g/dL [facility] Albumin 4.0 3.5 - 5.0 g/dL [facility] Alk phos 65 40 - 130 Units/L [facility] ALT 16 7 - 55 Units/L [facility] AST 20 10 - 50 Units/L [facility] Blood specimen (specimen) 05/12/2020 1:09 AM CHARTER COACH DRIVER 05/12/2020 1:23 AM CHARTER COACH DRIVER Leslie Aparicio MD LAB BLOOD ORDERABLES Final Resu lt Performing Organization Address [facility]/ZIP Co de Phone Number [facility] [place] [address] * Haptoglobin (05/12/2020 1:09 AM CHARTER COACH DRIVER) Haptoglobin 51.0 30.0 - 200.0 mg/dL [facility] Blood specimen (specimen) 05/12/2020 1:09 AM CHARTER COACH DRIVER 05/12/2020 1:23 AM CHARTER COACH DRIVER Yeison Horta MD LAB BLOOD ORDERABLES F inal Result Performing Organization Address [facility] Co de Phone Number [facility] Department [place] [address] documented in this encounter Visit Diagnoses Diagnosis Hematochezia- Primary Blood in stool Gastrointestinal hemorrhage, unspecified gastrointestinal hemorrhage type Hypertension, essential Unspecified essential hypertension HLD (hyperlipidemia) Other and unspecified hyperlipidemia Severe aortic stenosis Aortic valve disorders Gastrointestinal hemorrhage, unspecified gastrointestinal hemorrhage type documented in this encounter Admitting Diagnoses Diagnosis Gastrointestinal hemorrhage Unspecified, hemorrhage of gastrointestinal tract documented in this encounter Administered Medications Inactive Administered Medications - up to 3 most recent administrations Medication Order MAR Action Action Date Dose Rate Site atorvastatin (LIPITOR) tablet 10 mg 10 mg, oral, Daily, First dose (after last modification) on [place] 05/12/20 at 0900 Given 05/14/2020 9:19 AM CHARTER COACH DRIVER 10 mg Given 05/13/2020 9:12 AM CHARTER COACH DRIVER 10 mg Given 05/12/2020 9:23 AM CHARTER COACH DRIVER 10 mg montelukast (SINGULAIR) tablet 10 mg 10 mg, oral, Nightly, First dose (after last modification) on Sat05/12/20 at 2100 Given 05/13/2020 9:58 PM CHARTER COACH DRIVER 10 mg ondansetron (ZOFRAN) injection 4 mg 4 mg, intravenous, Administer over 2 Minutes, Every 6 hours PRN, nausea, vomiting, if not tolerating PO, Starting on Sat05/11/20 at 2105, Indications: Nausea and VomitingIndications:Nausea and Vomiting ondansetron ODT (ZOFRAN-ODT) disintegrating tablet 4 mg 4 mg, oral, Every 6 hours PRN, nausea, vomiting, Starting on Sat05/11/20 at 2105, Indications: Nausea and VomitingIndications:Nausea and Vomiting sodium chloride 0.9% flush 0.5-20 mL 0.5-20 mL, intra-catheter, Every 8 hours scheduled, First dose on Sat05/11/20 at 2200, Flush volume based on line type and size. Given 05/14/2020 6:04 AM CHARTER COACH DRIVER 10 mL Given 05/13/2020 9:59 PM CHARTER COACH DRIVER 10 mL Given 05/13/2020 6:53 AM CHARTER COACH DRIVER 10 mL sodium chloride 0.9% flush 0.5-20 mL 0.5-20 mL, intra-catheter, Every 8 hours scheduled, First dose on Sat05/13/20 at 1400, Flush volume based on line type and size. Given 05/14/2020 6:04 AM CHARTER COACH DRIVER 10 mL Given 05/13/2020 9:59 PM CHARTER COACH DRIVER 10 mL sodium chloride 0.9% flush 0.5-20 mL 0.5-20 mL, intra-catheter, As needed, line care, Starting on Sat05/13/20 at 1102, Flush volume based on line type and size. Flush before and after each use. documented in this encounter Historical Medications * This list may reflect changes made after this encounter. benazepriL (LOTENSIN) 5 mg tabletIndications :hypertension Take 5 mg by mouth every morning 06/28/2020 amLODIPine (NORVASC) 10 mg tabletIndications :hypertension Take 10 mg by mouth every morning 06/28/2020 added in this encounter Active and Recently Administered Medications Times are shown in CHARTER COACH DRIVER. Scheduled Medication Order 05/12/2020 05/13/2020 05/14/2020 atorvastatin (LIPITOR) tablet 10 mg 10 mg, oral, Daily, First dose (after last modification) on Sat05/12/20 at 0900 0923 (Given - Provider: Mirza Dunham, RN) 0912 (Given - Provider: Emily Bonilla, RN)1101 ([facility] Hold - Provider: Automatic Transfer Provider - Reason: Patient not available)1415 ([facility] Unhold - Provider: Automatic Transfer Provider) 0919 (Given - Provider: Emily Bonilla, RN) latanoprost (XALATAN) 0.005 % ophthalmic solution 1 drop 1 drop, each eye, Nightly, First dose (after last modification) on Sat05/11/20 at 2145 2239 (Not Given - Provider: Angela Hatfield RN - Reason: Patient/family refused) 1101 ([facility] Hold - Provider: Automatic Transfer Provider - Reason: Patient not available)1415 ([facility] Unhold - Provider: Automatic Transfer Provider)2159 (Not Given - Provider: Keisha Christensen RN - Reason: Patient/family refused) montelukast (SINGULAIR) tablet 10 mg 10 mg, oral, Nightly, First dose (after last modification) on Sat05/12/20 at 2100 2240 (Not Given - Provider: Angela Hatfield RN - Reason: Patient/family refused) 1102 ([facility] Hold - Provider: Automatic Transfer Provider - Reason: Patient not available)1415 ([facility] Unhold - Provider: Automatic Transfer Provider)2158 (Given [...] Bowel Evacuation 1719 (Given - Provider: Mirza Dunham RN) 0300 (Given - Provider: Angela Hatfield RN) [...] Emily Bonilla RN - Reason: Patient not available)215 (Given - Provider: Keisha Christensen RN) 0604 [...] Sat05/11/20 at 2105, Indications: Fever, Pain 1102 ([facility] Hold - Provider: Automatic Transfer Provider - Reason: Patient not available)1415 ([facility] Unhold - Provider: Automatic Transfer Provider) ondansetron (ZOFRAN) injection 4 mg(Linked Group 1) 4 mg, intravenous, Administer over 2 Minutes, Every 6 hours PRN, nausea, vomiting, if not tolerating PO, Starting on Sat05/11/20 at 2105, Indications: Nausea and Vomiting 1102 ([facility] Hold - Provider: Automatic Transfer Provider - Reason: Patient not available)1415 ([facility] Unhold - Provider: Automatic Transfer Provider) ondansetron ODT (ZOFRAN-ODT) disintegrating tablet 4 mg(Linked Group 1) 4 mg, oral, Every 6 hours PRN, nausea, vomiting, Starting on Sat05/11/20 at 2105, Indications: Nausea and Vomiting 1102 ([facility] Hold - Provider: Automatic Transfer Provider - Reason: Patient not available)1415 ([facility] Unhold - Provider: Automatic Transfer Provider) sodium chloride 0.9% flush 0.5-20 mL 0.5-20 mL, intra-catheter, As needed, line care, Starting on Sat05/11/20 at 2107, Flush volume based on line type and size. Flush before and after each use. 1102 ([facility] Hold - Provider: Automatic Transfer Provider - Reason: Patient not available)1415 ([facility] Unhold - Provider: Automatic Transfer Provider) sodium [...] 1 sodium chloride 0.9% flush 0.5-20 mL 4 04/2905/11/2020 sodium chloride 0.9% infusion 1 05/13/2020 polyethylene glycol (GoLYTEL Y) solution 2,000 mL 2 05/12/2020 acetaminophen (TYLENOL) tablet 650 mg 1 atorvastatin (LIPITOR) tablet 10 mg 1 05/11 latanoprost (XALATAN) 0.005 % ophthalmic solution 1 drop 1 05/11/2020 montelukast (SINGULAIR) tablet 10 mg 1 04/29 ondansetron (ZOFRAN) injection 4 mg 1 05/11 [...] 05/12/2020 documented in this encounter Care Teams Proposition Player Relationship Specialty Start Date End Date Martin López MD [address] [place] [address] PCP - General 06/27/12 Khalif Ca MD [address] [place] [address] Referring Physician Cardiology 04/08/19 documented as of this encounter
--- OUTSIDE RECORDS SUMMARY | 2024-04-20 00:19 | XMS_ITS | Encounter Summary ---
Author Organization [facility] Address [address] [place] [address] Phone Care Team Providers Care Mainframe Analyst Name Role Phone Martin López MD Primary Care Provider Khalif Caraballo MD Unavailable [phone] Reason for Visit * Diagnostic Imaging (Routine) - Closed Specialty Diagnoses / Procedures Referred By Contac t Referred To Contact Diagnoses Encounter for screening Aortic valve stenosis, etiology of cardiac valve disease unspecified Procedures Transthoracic Echo Complete W Doppler/CF Khalif Caraballo MD [address] [place] [address] Phone: tel: fax: [facility] Referral ID Status Reason Start Date Expiration Date Visits Re quested Visits Authorized [id number] Closed 11/17/2019 12/16/2020 1 1 Encounter Details Date Type Department Care Team (Latest Contact Info) Description 04/11/2020 10:30 AM PROGRAMMER ENGINEERING AND SCIENTIFIC Ancillary Procedure [facility] [address] [facility] [address] [place] [address] Khalif Caraballo MD [address] [place] [address] Encounter for screening; Aortic valve stenosis, etiology of cardiac valve disease unspecified Discharge Disposition: Discharge to home or self care Social History Tobacco Use Types Packs/Day Years Used Date Smoking Tobacco: Never Smokeless Tobacco: Never Sex and Gender Information Value Date Recorded Sex Assigned at Not on file Legal Sex Male 9:13 PM PROGRAMMER ENGINEERING AND SCIENTIFIC Gender Identity Male 07/25/2023 3:40 PM CDT [...] (TTE) COMPLETE W DOPPLER/CF W CONTRAST Routine 04/11/2020 11:00 AM PROGRAMMER ENGINEERING AND SCIENTIFIC Encounter for screening Aortic valve stenosis, etiology of cardiac valve disease unspecified documented in this encounter Results * TRANSTHORACIC ECHO (TTE) COMPLETE W DOPPLER/CF W CONTRAST (04/11/2020 11:00 AM PROGRAMMER ENGINEERING AND SCIENTIFIC) Anatomical Region Laterality Modality Ultrasound 04/11/2020 10:3 0 AM PROGRAMMER ENGINEERING AND SCIENTIFIC Narrative 04/11/2020 12:44 PM PROGRAMMER ENGINEERING AND SCIENTIFIC Patient name: Nathan Wagner Date of test: 04/11/2020 Type of test: TTE w/Doppler [facility] #: [id number] Date of : 1945 (M) [place] Operator: SILVIA Mosley Referring Physician: KHALIF CARABALLO MD Contrast Agent: 0.8 ml Optison Administered, (2.2 ml wasted). Contrast Administered by: Octavia Banks RN Supervised/Interpreted by: Gray Choi MD Diagnosis: Location: [facility] Reason for test: MV Structure: Normal, ?MV Motion: Normal, ?? Mitral Annulus: Normal AV Structure: tricuspid and is moderately thickened, ?? AV Motion: restricted Aotic root: Normal, ?TM: Normal, ?? PV: Normal Valvular Vegetations: none seen, ?Mass/Thrombi: none seen RA: Normal Measurements: ?M-Mode ?Normal ? Aotic Root: ? <3.8 ? LA: ? <4.0 ? RV: ? <2.8 ? LV(ED): ? <5.7 ? LV(ES): ? Variable ?2D Linear Normal ? Aotic Root: 3.6 cm ?<4.0 ? Ao Indexed: 1.7 cm/M2 <2.0 ? LA: ? <4.0 ? RV: ? 4.2 cm ?<4.2 ? LV(ED): ? 4.6 cm ?<5.9 ? LV(ES): ? 3.1 cm ?<4.0 ?2D Vol. ?? Normal ?Indexed ?? Indexed Normal RA: ? 57.0 ml ? 27.0 ml/M2 ?11-39 ? LA: ? 67.0 ml ? 31.7 ml/M2 ?16-34 ? RV: ? <12.7 ? LV(ED): ? 133.0 ml ??62-150 ?62.9 ml/M2 ?<75 ? LV(ES): ? 33.0 ml ?? 21-61 ? 15.6 ml/M2 ?<32 ?3D Vol. ? Indexed Normal LV(ED): ? 65.8 mL/m2 ?? <75 ? LV(ES): ? 31.2 mL/m2 ?? <32 ? LV EF: 75 % ?? (Normal: >=52%) ?? LV Septum: 1.4 cm ?(Normal: <1.0 cm) Wall Motion Scoring (1=Normal 2=Hypo 3=Akinetic 4=Dyskin./Aneurysm 0=Not visualized) Parasternal Long Talmoon:MAS=1 BAS=1 MIL=1 AGUSTÍN=1 Parasternal Short Talmoon:MAS=1 MIS=1 DC=1 MIL=1 MAL=1 MA=1 Apical 4 Chambers:=1 MIS=1 BIS=1 BAL=1 MAL=1 AL=1 AC=1 Apical 2 Chambers:AI=1 DC=1 BI=1 BA=1 MA=1 AA=1 AC=1 LV Global Longitudinal Strain: -12.4% ??(Normal <-17%) RV Global Longitudinal Strain: LV Function: Normal LV Ejection Fraction, (EF=52-72%) RV Function: Normal Septal Motion: Normal Pericardial Effusion: none seen Atrial Septum: Normal DOPPLER/COLOR FLOW DOPPLER RESULTS: Diastolic Function: Impaired Relaxation Tricuspid Valve: normal TV Pulmonic Valve: normal PV AV Regurgitation: Trace AR seen AV Stenosis: severe AV Area: 0.5 cm2 AV Pressure Gradient (mmHg): Mean: 51, Peak:83 MV Regurgitation: No MR seen MV Stenosis: no MS MV Area: ??cm2 MV Pressure Gradient (mmHg): Mean: 0 MV ERO: ??cm Regurg. Vol.: ??ml/beat Regurg. Frac.: ??% PA Pressure: ??mmHg DOPPLER/COLOR FOLOW DOPPLER COMMENTS: Trace AR seen, No MR seen, severe , no MS, normal TV, normal PV. Diastolic function: Impaired Relaxation Peak AV velocity 4.5 m/s CONTRAST: 0.8 ml Optison Administered, (2.2 ml wasted). SUMMARY: Severe . LENORA 0.5cm2. Mean AV [...] severe, LENORA and AV gradients are worse. Confirmed on ??04/11/2020 - 12:44:22 by Gray Choi MD By signing this report, the attending byproducts operator certifies that he or she has personally supervised and interpreted the echocardiogram and has reviewed and or edited and agrees with the written comments contained within the report. Procedure Note Gray Choi III, MD - 04/11/2020 Patient name: Nathan Wagner Date of test: 04/11/2020 Type of test: TTE w/Doppler [facility] #: [id number] Date of : 1945 (M) [place] Operator: SILVIA Mosley Referring Physician: KHALIF CARABALLO MD Contrast Agent: 0.8 ml Optison Administered, (2.2 ml wasted). Contrast Administered by: Octavia Banks RN Supervised/Interpreted by: Gray Choi MD Diagnosis: Location: [facility] Reason for test: MV Structure: Normal, MV Motion: Normal, Mitral Annulus: Normal AV Structure: tricuspid and is moderately thickened, AV Motion: restricted Aotic root: Normal, TM: Normal, PV: Normal Valvular Vegetations: none seen, Mass/Thrombi: none seen RA: Normal Measurements: M-Mode Normal Aotic Root: <3.8 LA: <4.0 RV: <2.8 LV(ED): <5.7 LV(ES): Variable 2D Linear Normal Aotic Root: 3.6 cm <4.0 Ao Indexed: 1.7 cm/M2 <2.0 LA: <4.0 RV: 4.2 cm <4.2 LV(ED): 4.6 cm <5.9 LV(ES): 3.1 cm <4.0 2D Vol. Normal Indexed Indexed Normal RA: 57.0 ml 27.0 ml/M2 11-39 LA: 67.0 ml 31.7 ml/M2 16-34 RV: <12.7 LV(ED): 133.0 ml 62-150 62.9 ml/M2 <75 LV(ES): 33.0 ml 21-61 15.6 ml/M2 <32 3D Vol. Indexed Normal LV(ED): 65.8 mL/m2 <75 LV(ES): 31.2 mL/m2 <32 LV EF: 75 % (Normal: >=52%) LV Septum: 1.4 cm (Normal: <1.0 cm) Wall Motion Scoring (1=Normal 2=Hypo 3=Akinetic 4=Dyskin./Aneurysm 0=Not visualized) Parasternal Long Talmoon:MAS=1 BAS=1 MIL=1 AGUSTÍN=1 Parasternal Short Talmoon:MAS=1 MIS=1 DC=1 MIL=1 MAL=1 MA=1 Apical 4 Chambers:=1 MIS=1 BIS=1 BAL=1 MAL=1 AL=1 AC=1 Apical 2 Chambers:AI=1 DC=1 BI=1 BA=1 MA=1 AA=1 AC=1 LV Global Longitudinal Strain: -12.4% (Normal <-17%) RV Global Longitudinal Strain: LV Function: Normal LV Ejection Fraction, (EF=52-72%) RV Function: Normal Septal Motion: Normal Pericardial Effusion: none seen Atrial Septum: Normal DOPPLER/COLOR FLOW DOPPLER RESULTS: Diastolic Function: Impaired Relaxation Tricuspid Valve: normal TV Pulmonic Valve: normal PV AV Regurgitation: Trace AR seen AV Stenosis: severe AV Area: 0.5 cm2 AV Pressure Gradient (mmHg): Mean: 51, Peak:83 MV Regurgitation: No MR seen MV Stenosis: no MS MV Area: cm2 MV Pressure Gradient (mmHg): Mean: 0 MV ERO: cm Regurg. Vol.: ml/beat Regurg. Frac.: % PA Pressure: mmHg DOPPLER/COLOR FOLOW DOPPLER COMMENTS: Trace AR seen, No MR seen, severe , no MS, normal TV, normal PV. Diastolic function: Impaired Relaxation Peak AV velocity 4.5 m/s CONTRAST: 0.8 ml Optison Administered, (2.2 ml wasted). SUMMARY: Severe . LENORA 0.5cm2. Mean AV [...] severe, LENORA and AV gradients are worse. Confirmed on 04/11/2020 - 12:44:22 by Gray Choi MD By signing this report, the attending byproducts operator certifies that he or she has personally supervised and interpreted the echocardiogram and has reviewed and or edited and agrees with the written comments contained within the report. Result [facility] Khalif Caraballo MD CV ECHO PROCEDURES Final Result documented in this encounter Visit Diagnoses Diagnosis Encounter for screening Aortic valve stenosis, etiology of cardiac valve disease unspecified documented in this encounter Administered Medications Inactive Administered Medications - up to 3 most recent administrations Medication Order MAR Action Action Date Dose Rate Site perflutren protein-a (OPTISON) 3 mL in sodium chloride 0.9% 8 mL syringe 1-8 mL, intravenous, Once in imaging, contrast, Starting on Sat04/11/20 at 0949, For 1 dose, Intra-Procedure (CV) Given 04/11/2020 10:52 AM PROGRAMMER ENGINEERING AND SCIENTIFIC 2 mL documented in this encounter Care Teams Mainframe Analyst Relationship Specialty Start Date End Date Martin López MD [address] [address] PCP - General 06/27/12 Khalif Caraballo MD [address] [address] Referring Physician Cardiology 04/08/19 documented as of this encounter
--- OUTSIDE RECORDS SUMMARY | 2024-04-20 00:19 | XMS_ITS | Encounter Summary ---
Author Organization [facility] Address [address] [place] [address] Phone Care Team Providers Care Junior Linux Administrator Name Role Phone Martin López MD Primary Care Provider Khalif Ca MD Unavailable [phone] Encounter Details Date Type Department Care Team (Late st Contact Info) Description 11/11/2019 Telephone [facility] Cardiology [facility] 8[address] [place] [address] [place] [address] Kristina Aguilar RMA Social History Tobacco Use Types Packs/Day Years Used Date Smoking Tobacco: Never Smokeless Tobacco: Never Sex and Gender Information Value Date Recorded Sex Assigned at Not on file Legal Sex Male 9:13 PM SKATE SHOP ATTENDANT Gender Identity Male 07/25/2023 3:40 PM CDT Sexual Orientation Straight 10/28/2019 9: 50 AM CDT documented as of this encounter Miscellaneous Notes * Telephone Encounter - Kristina Aguilar MA - 11/11/2019 10:22 AM CDT Pt informed that lab orders are being mailed out today. documented in this encounter Plan of Treatment Not on file documented as of this encounter Visit Diagnoses Not on filedocumented in this encounter Care Teams Junior Linux Administrator Relationship Specialty Start Date End Date Martin López MD [address] [place] [address] PCP - General 06/27/12 Khalif Ca MD [address] [facility] [address] [place] [address] Referring Physician Cardiology 04/08/19 documented as of this encounter
--- OUTSIDE RECORDS SUMMARY | 2024-04-20 00:19 | XMS_ITS | Encounter Summary ---
Author Organization [facility] Address [address] [place] [address] Phone Care Team Providers Care Firmware Engineer Name Role Phone Martin López MD Primary Care Provider Khalif Ca MD Unavailable [phone] Encounter Details Date Type Department Care Team (Late st Contact Info) Description 11/06/2019 Telephone [facility] Cardiology [address] [facility] [address] [place] [address] [place] [address] Tera Torre MD [address] [place], [place] [id number] Social History Tobacco Use Types Packs/Day Years Used Date Smoking Tobacco: Never Smokeless Tobacco: Never Sex and Gender Information Value Date Recorded Sex Assigned at Not on file Legal Sex Male 9:13 PM INFORMATICA DEVELOPER Gender Identity Male 07/25/2023 3:40 PM CDT Sexual Orientation Straight 10/28/2019 9: 50 AM CDT documented as of this encounter Miscellaneous Notes * Telephone Encounter - Tasha Jo RN - 11/06/2019 12:01 PM CDT Called spoke w pt * Telephone Encounter - Tera Torre MD - 11/06/2019 11:30 AM CDT Echo looks the same. Continue follow up in 6 months. thanks * Telephone Encounter - Tasha Jo RN - 11/06/2019 10:10 AM CDT Can you take a glance at his Echo done on Sat. Does not look like much different than prior to me but I might of missed something. * Telephone Encounter - Shelbi Bates - 11/06/2019 9:11 AM CDT Patient left a message requesting a call back with his test results. He can see them in his MyChartbut does not understand them. Please call to discuss. documented in this encounter Plan of Treatment Not on file documented as of this encounter Visit Diagnoses Not on filedocumented in this encounter Care Teams Firmware Engineer Relationship Specialty Start Date End Date Martin López MD [address] [place] [address] PCP - General 06/27/12 Khalif Ca MD [address] [place] [address] Referring Physician Cardiology 04/08/19 documented as of this encounter
--- OUTSIDE RECORDS SUMMARY | 2024-04-20 00:19 | XMS_ITS | Encounter Summary ---
Author Organization [facility] Address [address] [place] [address] Phone Care Team Providers Care Residential Real Estate Sales Manager Name Role Phone Martin López MD Primary Care Provider Khalif Ca MD Unavailable [phone] Encounter Details Date Type Department Care Team (Late st Contact Info) Description 11/24/2019 Telephone [facility] Cardiology [address] [facility] [address]th [place] [address] [place] [address] Khalif Ca MD [address] [place] [address] Social History Tobacco Use Types Packs/Day Years Used Date Smoking Tobacco: Never Smokeless Tobacco: Never Sex and Gender Information Value Date Recorded Sex Assigned at Not on file Legal Sex Male 9:13 PM SYSTEMS MANAGER Gender Identity Male 07/25/2023 3:40 PM CDT Sexual Orientation Straight 10/28/2019 9: 50 AM CDT documented as of this encounter Miscellaneous Notes * Telephone Encounter - Svetlana Lay RN - 11/24/2019 3:49 PM CDT Reviewed information with Dr. Ca who reports BP's all good, no change to plan of care. Pt notified. Pt reports he has been having back pain, is to have MRI. Pt asks if pain could increase BP's. I told him pain can increase BP. * Telephone Encounter - Svetlana Lay RN - 11/24/2019 12:46 PM CDT I spoke with pt who confirms that he has been checking BP's 1.5 hours after waking up in the AM. Ptis currently on Amlodipine 10 mg daily and Benazepril 5 mg daily. 11/17-124/63, 68 11/18--132/72, 72; 128/77 11/19--132/66, 78 11/20--136/73, 81 11/21--123/69, 79 11/22--136/70, 78 11/23--130/73, 72 * Telephone Encounter - Nubia Herrera - 11/24/2019 9:13 AM CDT Pt calling to give BP readings, please call. documented in this encounter Plan of Treatment Not on file documented as of this encounter Visit Diagnoses Not on filedocumented in this encounter Care Teams Residential Real Estate Sales Manager Relationship Specialty Start Date End Date Martin López MD [address] [place] [address] PCP - General 06/27/12 Khalif Ca MD [address] [place] [address] Referring Physician Cardiology 04/08/19 documented as of this encounter
--- OUTSIDE RECORDS SUMMARY | 2024-04-20 00:19 | XMS_ITS | Encounter Summary ---
Author Organization [facility] Address [address] [place] [address] Phone Care Team Providers Care Recreation Therapy Teacher Name Role Phone Martin López MD Primary Care Provider Khalif Ca MD Unavailable [phone] Encounter Details Date Type Department Care Team (Late st Contact Info) Description 11/24/2019 Orders Only [facility] Cardiology [address] [facility] Medical Office Building [address] [place] [address] Khalif Ca MD [facility] [place] [address] Social History Tobacco Use Types Packs/Day Years Used Date Smoking Tobacco: Never Smokeless Tobacco: Never Sex and Gender Information Value Date Recorded Sex Assigned at Not on file Legal Sex Male 9:13 PM HANDBELL CHOIR DIRECTOR Gender Identity Male 07/25/2023 3:40 PM CDT Sexual Orientation Straight 10/28/2019 9: 50 AM CDT documented as of this encounter Progress Notes * Svetlana Lay RN - 11/24/2019 3:51 PM CDT Cardio p documented in this encounter Plan of Treatment Not on file documented as of this encounter Visit Diagnoses Not on filedocumented in this encounter Care Teams Recreation Therapy Teacher Relationship Specialty Start Date End Date Martin López MD [address] [place] [address] PCP - General 06/27/12 Khalif Ca MD [address] [place] [address] Referring Physician Cardiology 04/08/19 documented as of this encounter
--- OUTSIDE RECORDS SUMMARY | 2024-04-20 00:19 | XMS_ITS | Encounter Summary ---
Author Organization [facility] Address [address] [place] [address] Phone Care Team Providers Care Regional Merchandising Manager Name Role Phone Martin López MD Primary Care Provider Khalif Ca MD Unavailable [phone] Encounter Details Date Type Department Care Team (Late st Contact Info) Description 11/03/2019 Telephone [facility] Cardiology [address] [place] [address] 8th [place] [address] [place] [address] Tasha Jo RN Social History Tobacco Use Types Packs/Day Years Used Date Smoking Tobacco: Never Smokeless Tobacco: Never Sex and Gender Information Value Date Recorded Sex Assigned at Not on file Legal Sex Male 9: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 Gender Identity Male 07/25/2023 3:40 PM CDT Sexual Orientation Straight 10/28/2019 9: 50 AM CDT documented as of this encounter Miscellaneous Notes * Telephone Encounter - Tasha Jo RN - 11/03/2019 9:40 AM CDT COVID screen completed documented in this encounter Plan of Treatment Not on file documented as of this encounter Visit Diagnoses Not on filedocumented in this encounter Care Teams Regional Merchandising Manager Relationship Specialty Start Date End Date Martin López MD [address] [facility] [address] [place] [address] PCP - General 06/27/12 Khalif Ca MD [address] [facility] [address] [place] [address] Referring Physician Cardiology 04/08/19 documented as of this encounter
--- OUTSIDE RECORDS SUMMARY | 2024-04-20 00:19 | XMS_ITS | Encounter Summary ---
Author Organization [facility] Address [address] [place] [address] Phone Care Team Providers Care Professor Of Biostatistics Name Role Phone Martin López MD Primary Care Provider Khalif Ca MD Unavailable [phone] Encounter Details Date Type Department Care Team (Late st Contact Info) Description 04/05/2020 Telephone [facility] Cardiology [facility] Medical Office Building [address] [place] [address] Khalif Ca MD [address] [place] [address] Social History Tobacco Use Types Packs/Day Years Used Date Smoking Tobacco: Never Smokeless Tobacco: Never Sex and Gender Information Value Date Recorded Sex Assigned at Not on file Legal Sex Male 9:13 PM NUTRITION WORKER Gender Identity Male 07/25/2023 3:40 PM CDT Sexual Orientation Straight 10/28/2019 9: 50 AM CDT documented as of this encounter Miscellaneous Notes * Telephone Encounter - Suzanne Wilks - 04/05/2020 1:[address] Ca pt can be followed by Dr. Torre for all his cardiology questions. Does not need to see Dr. Ca also. Pt is aware ITION WORKER documented in this encounter Plan of Treatment Not on file documented as of this encounter Visit Diagnoses Not on filedocumented in this encounter Care Teams Professor Of Biostatistics Relationship Specialty Start Date End Date Martin López MD [address] [place] [address] PCP - General 06/27/12 Khalif Ca MD [address] [facility] [address] [place] [address] Referring Physician Cardiology 04/08/19 documented as of this encounter
--- OUTSIDE RECORDS SUMMARY | 2024-04-20 00:19 | XMS_ITS | Encounter Summary ---
Author Organization [facility] Address [address] [place] [address] Phone Care Team Providers Care Chainsaw Mechanic Name Role Phone Martin López MD Primary Care Provider Khalif Ca MD Unavailable [phone] Encounter Details Date Type Department Care Team (Late st Contact Info) Description 05/10/2020 Telephone [facility] Cardiology [address] [facility] 8th [place] [address] [place] [address] Tera Torre MD [address] [place], [place] [id number] Social History Tobacco Use Types Packs/Day Years Used Date Smoking Tobacco: Never Smokeless Tobacco: Never Sex and Gender Information Value Date Recorded Sex Assigned at Not on file Legal Sex Male 9:13 PM AUTO EMISSIONS TECHNICIAN Gender Identity Male 07/25/2023 3:40 PM CDT Sexual Orientation Straight 10/28/2019 9: 50 AM CDT documented as of this encounter Miscellaneous Notes * Telephone Encounter - Tasha Jo RN - 05/10/2020 1:09 PM CST Called pt. EMISSIONS TECHNICIAN * Telephone Encounter - Shelbi Bates - 05/10/2020 12:28 PM CST Patient left a message requesting a call back. He is scheduled for a cath tomorrow with Dr. Torre in [facility]. He needs to discuss something else going on prior to his cath. Please call to discuss. EMISSIONS TECHNICIAN documented in this encounter Plan of Treatment Not on file documented as of this encounter Visit Diagnoses Not on filedocumented in this encounter Care Teams Chainsaw Mechanic Relationship Specialty Start Date End Date Martin López MD [address] [facility] 120 [place] [address] PCP - General 06/27/12 Khalif Ca MD [address] [facility] [address] [place] [address] Referring Physician Cardiology 04/08/19 documented as of this encounter
--- OUTSIDE RECORDS SUMMARY | 2024-04-20 00:19 | XMS_ITS | Encounter Summary ---
Author Organization [facility] Address [address] [place] [address] Phone Care Team Providers Care Sanitation Associate Name Role Phone Martin López MD Primary Care Provider Khalif Ca MD Unavailable [phone] Reason for Visit * Reason Onset Date Comments echo result 04/11/2020 Encounter Details Date Type Department Care Team (Late st Contact Info) Description 04/11/[address] 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 Dr. Ca' office called this AM, so pt aware of Echo results. Pt has Valve appt with [facility] on 04/27. Pt raised concern that results are posted too quickly to [place] before MD has a chance to review and discuss [facility] pt, but also aware that people want information quickly. Pt plans to raise this issueagain at next MD appt. LE LAB TECHNICIAN * Telephone Encounter - Mera Guillory - 04/11/2020 2:41 PM CST [facility]J WOULD LIKE RESULTS OF ECHO LE LAB TECHNICIAN documented in this encounter Plan of Treatment Not on file documented as of this encounter Visit Diagnoses Not on filedocumented in this encounter Care Teams Sanitation Associate Relationship Specialty Start Date End Date Martin López MD [address] [place] [address] PCP - General 06/27/12 Khalif Ca MD [address] [place] [address] Referring Physician Cardiology 04/08/19 documented as of this encounter
--- OUTSIDE RECORDS SUMMARY | 2024-04-20 00:19 | XMS_ITS | Encounter Summary ---
Author Organization [facility] Address [address] [place] [address] Care Team Providers Care Instructional Design Technologist Name Role Phone Martin López MD Primary Care Provider Khalif Ca MD Unavailable [phone] Encounter Details Date Type Department Care Team (Late st Contact Info) Description 05/06/2019 12:25 PM POSITION CLASSIFIER Lab [facility] [address] [place] [address] Tera Torre MD [address] [place] [address] Aortic valve stenosis, etiology of cardiac valve disease unspecified Discharge Disposition: Discharge to home or self care Social History Tobacco Use Types Packs/Day Years Used Date Smoking Tobacco: Never Smokeless Tobacco: Never Sex and Gender Information Value Date Recorded Sex Assigned at Not on file Legal Sex Male 9:13 PM POSITION CLASSIFIER Gender Identity Male 07/25/2023 3:40 PM CDT Sexual Orientation Straight 10/28/2019 9: 50 AM CDT documented as of this encounter Discharge Disposition Disposition Code Departure Means Destination Discharge to home or self care documented in this encounter Plan of Treatment Not on file documented as of this encounter Procedures Procedure Name Priority Date/Time Associated Diagnosis Comments EGFR Routine 05/06/2019 12:33 PM POSITION CLASSIFIER Aortic valve stenosis, etiology of cardiac valve disease unspecified DIFFERENTIAL AUTO Routine 05/06/2019 12: 33 PM POSITION CLASSIFIER Aortic valve stenosis, etiology of cardiac valve disease unspecified PRO B-TYPE NATRIURETIC PEPTIDE Routine 05/06/2019 12:33 PM POSITION CLASSIFIER Aortic valve stenosis, etiology of cardiac valve disease unspecified CBC WITH AUTO DIFFERENTIAL Routine 05/06/2019 12:33 PM POSITION CLASSIFIER Aortic valve stenosis, etiology of cardiac valve disease unspecified PROTIME-INR Routine 05/06/2019 12:33 PM POSITION CLASSIFIER Aortic valve stenosis, etiology of cardiac valve disease unspecified COMPREHENSIVE METABOLIC PANEL Routine 05/06/2019 12:33 PM POSITION CLASSIFIER Aortic valve stenosis, etiology of cardiac valve disease unspecified documented in this encounter Results * eGFR (05/06/2019 12:33 PM POSITION CLASSIFIER) eGFR >60 mL/min/1.7 3 m2 [facility] Comment: Interpretive Data Reference Interval Normal ?>/= 90 mL/min/1.73m2 Mildly decreased* ? 60 - 89 mL/min/1.73m2 Mildly to moderately decreased ?45 - 59 mL/min/1.73m2 Moderately to severely decreased ??30 - 44 mL/min/1.73m2 Severely decreased ?15 - 29 mL/min/1.73m2 Kidney Failure ?< 15 ??mL/min/1.73m2 *Relative to young adult level If -Israeli multiply value by 1.16. Estimated glomerular filtration rate is determined by the CKD-EPI equation recommended by the National Kidney Foundation (KDIGO 2012 Clinical Practice Guideline for the Evaluation and Management of Chronic Kidney Disease. Kidney Intnl Suppl Apr 2012;3:1). The CKD-EPI equation should not be used for patients with unstable renal function and has not been validated in children and those over 70. Current interpretive data was last reviewed 2015. Blood specimen (specimen) 05/06/2019 12:33 PM POSITION CLASSIFIER 05/06/2019 1:22 PM POSITION CLASSIFIER us Tera Torre MD LAB BLOOD ORDERABLES Final R esult [facility] [address] [place] [address] * Differential, auto (05/06/2019 12:33 PM POSITION CLASSIFIER) Neutrophil abs 4.7 1.7 - 6.5 K/cumm [facility] Imm gran abs 0.0 0.0 - 0.1 K/cumm [facility] Lymphocyte abs 0.8 0.8 - 3.3 K/cumm [facility] Monocyte abs 0.6 0.2 - 0.8 K/cumm [facility] Eosinophil abs 0.2 0.0 - 0.5 K/cumm [facility] Basophil abs 0.0 0.0 - 0.1 K/cumm [facility] Neutrophil pct 75.0 % [facility] Comment: Interpretive Data Percent cell count reference ranges are not reported, since discordance with absolute values may lead to misinterpretation of CBC data. Current Interpretive Data was last revised on 2017. Imm gran pct 0.5 % [facility] Comment: Interpretive Data Percent cell count reference ranges are not reported, since discordance with absolute values may lead to misinterpretation of CBC data. Current Interpretive Data was last revised on 2017. Lymphocyte pct 12.1 % [facility] Comment: Interpretive Data Percent cell count reference ranges are not reported, since discordance with absolute values may lead to misinterpretation of CBC data. Current Interpretive Data was last revised on 2017. Monocyte pct 9.1 % [facility] Comment: Interpretive Data Percent cell count reference ranges are not reported, since discordance with absolute values may lead to misinterpretation of CBC data. Current Interpretive Data was last revised on 2017. Eosinophil pct 3.0 % [facility] Comment: Interpretive Data Percent cell count reference ranges are not reported, since discordance with absolute values may lead to misinterpretation of CBC data. Current Interpretive Data was last revised on 2017. Basophil pct 0.3 % [facility] Comment: Interpretive Data Percent cell count reference ranges are not reported, since discordance with absolute values may lead to misinterpretation of CBC data. Current Interpretive Data was last revised on 2017. Blood specimen (specimen) 05/06/2019 12:33 PM POSITION CLASSIFIER 05/06/2019 1:22 PM POSITION CLASSIFIER us Tera Torre MD LAB BLOOD ORDERABLES Final R esult Performing Organization Address City/[facility]/ZIP Co de Phone Number [facility] [address] [facility] [place] [address] * CBC with auto differential (05/06/2019 12:33 PM POSITION CLASSIFIER) WBC 6.3 3.8 - 9.9 K/cumm [facility] Hgb 16.4 13.0 - 17.5 g/dL [facility] Hct 49.2 38.9 - 50.3 % [facility] Plt 237 150 - 400 K/cumm [facility] MPV 11.4 9.1 - 12.3 fL [facility] RBC 5.67 4.30 - 5.80 M/cumm [facility] MCV 86.8 81.3 - 96.4 fL [facility] MCH 28.9 27.1 - 33.3 pg [facility] MCHC 33.3 32.3 - 35.7 g/dL [facility] RDW CV 13.4 11.1 - 14.9 % [facility] RDW SD 42.7 35.7 - 48.1 fL [facility] NRBC abs 0.00 0.00 - 0.01 K/cumm [facility] Blood specimen (specimen) 05/06/2019 12:33 PM POSITION CLASSIFIER 05/06/2019 1:22 PM POSITION CLASSIFIER Tera Torre MD LAB BLOOD ORDERABLES Final R esult [facility] [address] [facility]. [place] [address] * Comprehensive metabolic panel (05/06/2019 12:33 PM POSITION CLASSIFIER) Sodium 140 135 - 145 mmol/L [facility] Potassium, pl 4.0 3.3 - 4.9 mmol/L [facility] Chloride 101 97 - 110 mmol/L [facility] CO2 27 22 - 32 mmol/L [facility] Anion gap 12 2 - 15 mmol/L [facility] BUN 20 8 - 25 mg/dL [facility] Creatinine 1.10 0.80 - 1.30 mg/dL [facility] Glucose 122 70 - 199 mg/dL [facility] Comment: [...] interpretive data was last revised 2017. Calcium 10.3 8.5 - 10.3 mg/dL [facility] Bilirubin, total 0.7 0.1 - 1.2 mg/dL [facility] Protein, pl 7.5 6.5 - 8.5 g/dL [facility] Albumin 4.7 3.5 - 5.0 g/dL [facility] Alk phos 62 40 - 130 Units/L [facility] ALT 28 7 - 55 Units/L [facility] AST 18 10 - 50 Units/L [facility] Blood specimen (specimen) 05/06/2019 12:33 PM POSITION CLASSIFIER 05/06/2019 1:22 PM POSITION CLASSIFIER Tera Torre MD LAB BLOOD ORDERABLES Final R esult [facility] [address] [facility]. [facility] [place] [address] * Protime-INR (05/06/2019 12:33 PM POSITION CLASSIFIER) Pathologist [facility] PT 13.4 11.5 - 14.0 sec [facility] INR 1.0 0.9 - 1.1 [facility] Comment: Interpretive data Oral anticoagulant therapeutic ranges: Venous thromboembolism prophylaxis or treatment: 2.0-3.0 CARDIOLOGY Standard range: 2.0-3.0 High-intensity range: 2.5-3.5 Refer to indication-specific guidelines for appropriate target ranges for prosthetic heart valve replacement. Current interpretive data was last revised on 2019. Blood specimen (specimen) 05/06/2019 12:33 PM POSITION CLASSIFIER 05/06/2019 1:22 PM POSITION CLASSIFIER Tera Torre MD LAB BLOOD ORDERABLES Final R esult Performing Organization Address City/State/[facility] Co de Phone Number [facility] [address] [facility]. [facility] [place] [address] * Pro B-type natriuretic peptide (05/06/2019 12:33 PM POSITION CLASSIFIER) [facility] NT-proBNP 71 <=300 pg/mL [facility] Comment: Interpretive Comments: A. Dyspnea in Acute [...] as advanced age. - References: 1. Dimple KRISHNAMURTHY et.al. Eur Heart J. 2006:27:330-337. 2. Camila RW, Irina SLADE. J. AM Christiano Cardiol: Cardiovasc Imag. 2009;2: 216- 225. Interpretive Data Last Revised Date: 2017. Blood specimen (specimen) 05/06/2019 12:33 PM POSITION CLASSIFIER 05/06/2019 1:22 PM POSITION CLASSIFIER Tera Torre MD LAB BLOOD ORDERABLES Final R esult Performing Organization Address City/State/[facility] Phone Number [facility] [address] [facility]. Department of [address] [place], [place] [phone] documented in this encounter Visit Diagnoses Diagnosis Aortic valve stenosis, etiology of cardiac valve disease unspecified documented in this encounter Care Teams Instructional Design Technologist Relationship Specialty Start Date End Date Martin López MD [address] [facility] [address] [place] [address] PCP - General 06/27/12 Khalif Ca MD [address] [place] [address] Referring Physician Cardiology 04/08/19 documented as of this encounter
--- OUTSIDE RECORDS SUMMARY | 2024-04-20 00:19 | XMS_ITS | Encounter Summary ---
Author Organization [facility] Address [address] [place] [address] Phone Care Team Providers Care Stock Order Lister Name Role Phone Martin López MD Primary Care Provider Khalif Ca MD Unavailable [phone] Encounter Details Date Type Department Care Team (Late st Contact Info) Description 11/10/2019 Telephone [facility] Cardiology [address] [place] [address] [place] [address] Tera Torre MD [address] [place], [place] [id number] Social History Tobacco Use Types Packs/Day Years Used Date Smoking Tobacco: Never Smokeless Tobacco: Never Sex and Gender Information Value Date Recorded Sex Assigned at Not on file 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 He would like to have the orders for his [facility] labs mailed to him prior to his appointment so that Dr. Torre will have the results at his appointment. * Telephone Encounter - Tasha Jo RN - 11/10/2019 9:06 AM CDT FU in 6 months needed * Telephone Encounter - Medina Villarreal BS - 11/10/2019 8:54 AM CDT [facility] PT CALLING TO SEE IF THERE NEEDS TO BE A F/U APPT AND ECHO. documented in this encounter Plan of Treatment Not on file documented as of this encounter Visit Diagnoses Not on filedocumented in this encounter Care Teams Stock Order Lister Relationship Specialty Start Date End Date Martin López MD [address] [place] [address] PCP - General 06/27/12 Khalif Ca MD [address] [place] [address] Referring Physician Cardiology 04/08/19 documented as of this encounter
--- OUTSIDE RECORDS SUMMARY | 2024-04-20 00:19 | XMS_ITS | Encounter Summary ---
Author Organization [facility] Address [address] [place] [address] Care Team Providers Care Legal Secretary Name Role Phone Martin López MD Primary Care Provider Khalif Ca MD Unavailable [phone] Reason for Referral * Diagnostic Imaging (Routine) - Closed Specialty Diagnoses / Procedures Referred By Bharat bell Referred To Contact Radiology Diagnoses Aortic valve stenosis, etiology of cardiac valve disease unspecified Procedures CT TAVR Tera Torre MD Phone: tel: fax: [place] [address] [address] [id number] Referral ID Status Reason Start Date Expiration Date Visits Re quested Visits Authorized [id number] Closed 04/27/2020 05/27/2021 1 1 NG CREW LEADER Reason for Visit * Diagnostic Imaging (Routine) - Closed Specialty Diagnoses / Procedures Referred By Bharat bell Referred To Contact Radiology Diagnoses Aortic valve stenosis, etiology of cardiac valve disease unspecified Procedures CT TAVR Tera Torre MD Phone: tel: fax: [place] [phone] [place] [id number] Referral ID Status Reason Start Date Expiration Date Visits Re quested Visits Authorized [id number] Closed 04/27/2020 05/27/2021 1 1 Encounter Details Date Type Department Care Team (Latest Contact Info) Description 05/03/2020 2:00 PM GLUING CREW LEADER - 05/03/2020 11:59 PM GLUING CREW LEADER Hospital Encounter [facility] [id number] [address] [id number] Tera Torre MD [address] [place] [address] Aortic valve stenosis, etiology of cardiac valve disease unspecified Discharge Disposition: Discharge to home or self care Social History Tobacco Use Types Packs/Day Years Used Date Smoking Tobacco: Never Smokeless Tobacco: Never Sex and Gender Information Value Date Recorded Sex Assigned at Not on file Legal Sex Male 9:13 PM GLUING CREW LEADER Gender Identity Male 07/25/2023 3:40 PM CDT Sexual Orientation Straight 10/28/2019 9: 50 AM CDT documented as of this encounter Medications at Time of Discharge montelukast (SINGULAIR) 10 mg tablet Take 1 tablet (10 mg total) by mouth nightly 04/02/2016 travoprost (TRAVATAN Z) 0.004 % drops Administer 1 drop into both eyes nightly 03/31/2015 amLODIPine (NORVASC) 10 mg tablet Take 1 tablet by mouth daily 03/31/2015 1 aspirin 81 mg tablet Take 81 mg by mouth daily 1 atorvastatin (LIPITOR) 10 mg tabletIndication s:hyperlipidemia Take 10 mg by mouth every morning 03/31/2015 1 azelastine 0.15 % (205.5 mcg) spray,non-aeroso lIndications:Sea jayshree Allergic Rhinitis Administer 1 spray into each nostril daily as needed 04/02/2016 2 benazepril (LOTENSIN) 5 mg tablet Take 5 mg by mouth daily 03/31/2015 1 clobetasol (TEMOVATE) 0.05 % external solutionIndicati ons:Dermatosis of the Scalp Apply 1 application topically 2 (two) times a day as needed 04/24/2019 2 methylPREDNISolo ne (MEDROL DOSEPACK) 4 mg Dosepack 10/12/2019 1 documented as of this encounter Discharge Disposition Disposition Code Departure Means Destination Discharge to home or self care documented in this encounter Plan of Treatment Not on file documented as of this encounter Procedures Procedure Name Priority Date/Time Associated Diagnosis Comments CT TAVR Schedule Routine, Read Routine (OP Routine) 05/03/2020 2:16 PM GLUING CREW LEADER Aortic valve stenosis, etiology of cardiac valve disease unspecified documented in this encounter Results * CT TAVR (05/03/2020 2:16 PM GLUING CREW LEADER) Anatomical Region Laterality Modality Chest N/A Computed Tomogra phy 05/04/2020 11:4 1 AM GLUING CREW LEADER Addenda Addendum by Obie Ware MD on 09/12/2021 5:43 PM CDT Follow up CT CHEST done on 09/05/21. Octavia SANCHEZ, RN. Edited by: Octavia Waddell Electronically signed by: Obie Ware M.D. Impressions 05/04/2020 5:18 PM GLUING CREW LEADER 1. Severe aortic valvular stenosis. 2. Aortic annulus, and abdominal aortic, common iliac, external iliac and femoral artery measurements in preparation for TAVR procedure as described above. 2. Bilateral subcentimeter solid and groundglass pulmonary nodules. Follow-up CT scan in one year is recommended. Recommend follow up of the Incidental lung nodule Additional Imaging In [address] Dictated by: Nallely Dee M.D. The radiology attending physician has personally reviewed this study, and had reviewed and/or edited this written report and agrees with it. Electronically signed by: Obie Ware M.D. Narrative 05/04/2020 5:18 PM GLUING CREW LEADER EXAMINATION: Heart CT and CTA abdomen and pelvis with contrast. ?? History: Severe aortic stenosis, pre-TAVR procedure. ?? Technique: Heart CT and CT angiogram of the abdomen and pelvis performed during administration of 125 mL of Optiray 350, intravenously per TAVR Protocol. ??Images were transferred to an independent workstation for additional 3D post-processing. ?? FINDINGS: Annulus and Thoracic Aortic Measurements (in systole): Aortic valve annulus: ??Area 868 mm2: circumference 113 mm; 40 mm maximum diameter x 31 mm minimum diameter. Sinuses of Valsalva: 34.9 x 38.0 x 36.5 mm Sinotubular junction: ??33.6 mm diameter sagittal x 34.0 mm diameter coronal. There is ??Mild left ventricular outflow tract calcification. There is ??no mitral annular calcification. ?? Distance to RCA ostium from aortic valve annulus: ??20.0 mm ?? Distance to left main ostium from annulus: ??13.3 mm Deployment angle: 0 ROMANO, 9 Caudal Aortic valve calcium score: 3635. Abdominal Aortic and Pelvic Arterial Smallest Diameter Measurements (made from centerline curved MPRs): ? Infrarenal aorta: ??14.5 mm ??x ??15.7 mm ?? Right common iliac artery: ??9.0 mm ??x ??10.9 mm. ?? There is Moderate calcification. ?? Left common iliac artery: ??8.9 mm ??x ??10.1 mm . ?? There is Moderate calcification. There is Mild tortuosity of the bilateral common iliac arteries. This is equal in distribution. Right external iliac artery: ??9.2 mm ??x ??9.6 mm. There is Mild calcification. ?? Left external iliac artery: ??8.0 mm ??x ??9.5 mm. ??There is Mild calcification. There is Severe tortuosity of the right external iliac artery and mild tortuosity of the left external iliac artery. ?? Right common femoral artery: ??9.5 x 9.8 mm. There is Mild calcification. Left common femoral artery: ??10.6 x 10.8 mm. ??There is Mild calcification. There is no tortuosity of the bilateral femoral arteries. ??This is equal in distribution. Other findings: ?? Incidental note is made of an azygos fissure. There are bilateral pulmonary nodules, some of which are solid and others groundglass. For reference a left lower lobe groundglass pulmonary nodule measures 7 mm (table position -755.0). A 9 mm right upper lobe pulmonary nodule is partially solid and partially groundglass (table position -819). No pleural effusion or pneumothorax. Heart size is normal. There is no pericardial effusion. There is coronary artery disease. There is left ventricular hypertrophy. No supraclavicular or axillary lymphadenopathy. Prominent mediastinal lymph nodes are likely reactive. The visualized liver and spleen appear normal. The gallbladder, pancreas, and adrenal glands ??appear normal. Cysts and other hypoattenuating lesions which are too small to characterize are present within both kidneys. No hydronephrosis. The urinary bladder is decompressed. The prostate contains calcifications. There is colonic diverticulosis without evidence of acute diverticulitis. No evidence of bowel obstruction. No abdominal or pelvic lymphadenopathy. Multilevel degenerative changes are present throughout the spine. No aggressive osseous lytic or blastic lesion. ? Procedure Note Obie Ware MD - 05/04/2020 EXAMINATION: Heart CT and CTA abdomen and pelvis with contrast. History: Severe aortic stenosis, pre-TAVR procedure. Technique: Heart CT and CT angiogram of the abdomen and pelvis performed during administration of 125 mL of Optiray 350, intravenously per TAVR Protocol. Images were transferred to an independent workstation for additional 3D post-processing. FINDINGS: Annulus and Thoracic Aortic Measurements (in systole): Aortic valve annulus: Area 868 mm2: circumference 113 mm; 40 mm maximum diameter x 31 mm minimum diameter. Sinuses of Valsalva: 34.9 x 38.0 x 36.5 mm Sinotubular junction: 33.6 mm diameter sagittal x 34.0 mm diameter coronal. There is Mild left ventricular outflow tract calcification. There is no mitral annular calcification. Distance to RCA ostium from aortic valve annulus: 20.0 mm Distance to left main ostium from annulus: 13.3 mm Deployment angle: 0 ROMANO, 9 Caudal Aortic valve calcium score: 3635. Abdominal Aortic and Pelvic Arterial Smallest Diameter Measurements (made from centerline curved MPRs): Infrarenal aorta: 14.5 mm x 15.7 mm Right common iliac artery: 9.0 mm x 10.9 mm. There is Moderate calcification. Left common iliac artery: 8.9 mm x 10.1 mm . There is Moderate calcification. There is Mild tortuosity of the bilateral common iliac arteries. This is equal in distribution. Right external iliac artery: 9.2 mm x 9.6 mm. There is Mild calcification. Left external iliac artery: 8.0 mm x 9.5 mm. There is Mild calcification. There is Severe tortuosity of the right external iliac artery and mild tortuosity of the left external iliac artery. Right common femoral artery: 9.5 x 9.8 mm. There is Mild calcification. Left common femoral artery: 10.6 x 10.8 mm. There is Mild calcification. There is no tortuosity of the bilateral femoral arteries. This is equal in distribution. Other findings: Incidental note is made of an azygos fissure. There are bilateral pulmonary nodules, some of which are solid and others groundglass. For reference a left lower lobe groundglass pulmonary nodule measures 7 mm (table position -755.0). A 9 mm right upper lobe pulmonary nodule is partially solid and partially groundglass (table position -819). No pleural effusion or pneumothorax. Heart size is normal. There is no pericardial effusion. There is coronary artery disease. There is left ventricular hypertrophy. No supraclavicular or axillary lymphadenopathy. Prominent mediastinal lymph nodes are likely reactive. The visualized liver and spleen appear normal. The gallbladder, pancreas, and adrenal glands appear normal. Cysts and other hypoattenuating lesions which are too small to characterize are present within both kidneys. No hydronephrosis. The urinary bladder is decompressed. The prostate contains calcifications. There is colonic diverticulosis without evidence of acute diverticulitis. No evidence of bowel obstruction. No abdominal or pelvic lymphadenopathy. Multilevel degenerative changes are present throughout the spine. No aggressive osseous lytic or blastic lesion. IMPRESSION: 1. Severe aortic valvular stenosis. 2. Aortic annulus, and abdominal aortic, common iliac, external iliac and femoral artery measurements in preparation for TAVR procedure as described above. 2. Bilateral subcentimeter solid and groundglass pulmonary nodules. Follow-up CT scan in one year is recommended. Recommend follow up of the Incidental lung nodule Additional Imaging In [address] Dictated by: Nallely Dee M.D. The radiology attending physician has personally reviewed this study, and had reviewed and/or edited this written report and agrees with it. Electronically signed by: Obie Ware M.D. Tera Torre MD IMG CT PROCEDURES Edited Res ult - Final documented in this encounter Visit Diagnoses Diagnosis Aortic valve stenosis, etiology of cardiac valve disease unspecified documented in this encounter Administered Medications Inactive Administered Medications - up to 3 most recent administrations Medication Order MAR Action Action Date Dose Rate Site ioversoL (OPTIRAY 350) syringe syringe 125 mL 125 mL, intravenous, Once in imaging, contrast, Starting on 05/03/20 at 1403, For 1 dose Given 05/03/2020 2:12 PM GLUING CREW LEADER 125 mL sodium chloride 0.9% flush 125 mL 125 mL, intravenous, Once in imaging, line care, Starting on Tu05/03/20 at 1403, For 1 dose Given 05/03/2020 2:13 PM GLUING CREW LEADER 50 mL documented in this encounter Care Teams Legal Secretary Relationship Specialty Start Date End Date Martin López MD [address] [place] [address] PCP - General 06/27/12 Khalif Ca MD [address] [place] [address] Referring Physician Cardiology 04/08/19 documented as of this encounter
--- OUTSIDE RECORDS SUMMARY | 2024-04-20 00:19 | XMS_ITS | Encounter Summary ---
Author Organization [facility] Address [address] [place] [address] Phone Care Team Providers Care Supervisor Histology Name Role Phone Martin López MD Primary Care Provider Khalif Caraballo MD Unavailable [phone] Reason for Referral * Diagnostic Imaging (Routine) - Closed Specialty Diagnoses / Procedures Referred By Bharat bell Referred To Contact Diagnoses Encounter for screening Aortic valve stenosis, etiology of cardiac valve disease unspecified Procedures Transthoracic Echo Complete W Doppler/CF Khalif Caraballo MD [address] [facility] [address] [facility] [address] [place] [address] Phone: tel: fax: Heart [facility] Referral ID Status Reason Start Date Expiration Date Visits Re quested Visits Authorized [id number] Closed 11/17/2019 12/16/2020 1 1 Reason for Visit * Reason Comments Follow-up Encounter Details Date Type Department Care Team (Late st Contact Info) Description 11/17/2019 9:15 AM CDT Telemedicine [facility] Cardiology [address] [place] [address] Medical Office [address] [place] [address] Khalif Caraballo MD [facility] [facility] [address] [place] [address] Aortic valve stenosis, etiology of cardiac valve disease unspecified (Primary Dx); Encounter for screening Social History Tobacco Use Types Packs/Day Years Used Date Smoking Tobacco: Never Smokeless Tobacco: Never Sex and Gender Information Value Date Recorded Sex Assigned at Not on file Legal Sex Male 9:13 PM LOGISTICS COORDINATOR Gender Identity Male 07/25/2023 3:40 PM CDT Sexual Orientation Straight 10/28/2019 9: 50 AM CDT documented as of this encounter Last Filed Vital Signs Vital Sign Reading Time Taken Comments Blood Pressure 151/75 11/17/2019 8:29 AM CDT pt obtained Pulse 81 11/17/2019 8:29 AM CDT pt ob tained Temperature - - Respiratory Rate - - Oxygen Saturation - - Inhaled Oxygen Concentration - - Weight 95.7 kg (211 lb) 11/17/2019 8:29 AM CDT p t obtained Height - - Body Mass Index 31.16 11/04/2019 12:58 PM CDT documented in this encounter Patient Instructions * Patient Instructions* Brook Carrasco RMA - 11/17/2019 9:15 AM CDT Schedule a echocardiogram documented in this encounter Progress Notes * Khalif Caraballo MD - 11/17/2019 12:00 AM CDT Date: 11/17/2019 Patient Name: MARIZOL GRIMALDO Date of : 1945 Date of Visit: 11/17/2019 This was a telemedicine visit with Marizol Grimaldo, which took place via telephone. During the visit, I was located in my office and the patient was located at home in the [facility]. The session started at 9:18 and ended at 9:35. The patient has been informed that the visit may not be secure and acknowledged the information. The option of participating in a telephone or video visit during the COVID-19 Public Health Emergency was explained to them. After being given an opportunity to ask questions about and discuss this type of visit, they verbally consented to proceeding with the telephone/video visit and understand that this service replaces an office visit. HISTORY OF PRESENT ILLNESS: He is 73 years old. 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 He has known aortic stenosis. His mean gradient was 40 with a valve area of 1, but he has been entirely asymptomatic and has remained that way. His heart function has been higher than normal at 72%, which is very reassuring. He has had low back pain, which interfered with his regular exercise. He is doing it religiouslyas before now. He is on the bike and it seems like that does not aggravate the back pain and it makes sense because it is taking the weight off his back as opposed to being on the treadmill where it is still bearing the weight. He is doing 10 minutes or so on the bike, which is what physical therapy recommended. We will have to abide what they say until he is back to normal. I told him 85% ruptured disks get better on their own with physical therapy. He has no chest pain, no shortness of breath, no dizziness. No change in his breathing pattern or exercise tolerance, although the back has fairly interfered with activity. MEDICATIONS: 1. Amlodipine 10 for hypertension. 2. Benazepril 5 for hypertension. 3. Aspirin 81 mg daily. 4. Atorvastatin 10 for hyperlipidemia. PHYSICAL EXAMINATION: When he saw Dr. Gonzalez on 11/04/2019, blood pressure was 136/74. Blood pressure done today by pt was 151/75, pulse is 81 and his weight is 211 lbs. DATA: His last echo was done on 11/04/2019. His ejection fraction was as before, 71%. His valve area was previously 1 and now it is 0.9, which is essentially the same. He is asymptomatic, doing well. He will be due for another one in 6 months after October. ASSESSMENT AND PLAN: He has been doing well. I would like for him in the next 6 to 7 days, take his blood pressure in the morning 1-1/2 hours after he is awake. I want him to take his medicine as soon as he gets up and 1-1/2 hour later take his blood pressure perfectly at rest, relaxed for the next 7 days in a row. If those pressures are above 130, then he needs to call us. Prednisone Dosepak that he was on also plays a role on his blood pressure for 1 month after he is on it, but it should be just pass the affect of that now. He is otherwise doing very well. We will schedule another echo for him in 6 months in around early March. We will call him for an appointment in 6 months. ELECTRONICALLY SIGNED - 11/17/2019 01:48 PM Khalif Caraballo M.D., .A.C.C. seo specialist AW/an cc: MARTIN LÓPEZ MD / / documented in this encounter Plan of Treatment Not on file documented as of this encounter Results * TRANSTHORACIC ECHO (TTE) COMPLETE W DOPPLER/CF W CONTRAST (04/11/2020 11:00 AM LOGISTICS COORDINATOR) Anatomical Region Laterality Modality Ultrasound 04/11/2020 10:3 0 AM LOGISTICS COORDINATOR Narrative 04/11/2020 12:44 PM LOGISTICS COORDINATOR Patient name: Marizol Grimaldo Date of test: 04/11/2020 Type of test: TTE w/Doppler [facility] #: [id number] Date of : 1945 (M) Community Program Assistant: SILVIA Mosley Referring Physician: KHALIF CARABALLO MD Contrast Agent: 0.8 ml Optison Administered, (2.2 ml wasted). Contrast Administered by: Octavia Banks RN Supervised/Interpreted by: Gray Choi MD Diagnosis: Location: [facility] Reason for test: MV Structure: Normal, ?MV [...] 2=Hypo 3=Akinetic 4=Dyskin./Aneurysm 0=Not visualized) Parasternal Long [place]:MAS=1 BAS=1 MIL=1 AGUSTÍN=1 Parasternal Short [place]:MAS=1 MIS=1 HI=1 MIL=1 MAL=1 MA=1 Apical 4 [...] MD By signing this report, the attending hearing aid mechanic certifies that he or she has personally supervised and interpreted the echocardiogram and has reviewed and or edited and agrees with the written comments contained within the report. Procedure Note Gray Choi III, MD - 04/11/2020 Patient name: Marizol Grimaldo Date of test: 04/11/2020 Type of test: TTE w/Doppler [facility] #: [id number] Date of : 1945 (M) Community Program Assistant: SILVIA Mosley Referring Physician: KHALIF CARABALLO MD Contrast Agent: 0.8 ml Optison Administered, (2.2 ml wasted). Contrast Administered by: Octavia Banks RN Supervised/Interpreted by: Gray Choi MD Diagnosis: Location: [facility] Reason for test: MV Structure: Normal, MV [...] 2=Hypo 3=Akinetic 4=Dyskin./Aneurysm 0=Not visualized) Parasternal Long [place]:MAS=1 BAS=1 MIL=1 AGUSTÍN=1 Parasternal Short [place]:MAS=1 MIS=1 HI=1 MIL=1 MAL=1 MA=1 Apical 4 [...] MD By signing this report, the attending hearing aid mechanic certifies that he or she has personally supervised and interpreted the echocardiogram and has reviewed and or edited and agrees with the written comments contained within the report. Khalif Caraballo MD CV ECHO PROCEDURES Final Result documented in this encounter Visit Diagnoses Diagnosis Aortic valve stenosis, etiology of cardiac valve disease unspecified- Primary Encounter for screening Encounter for screening Aortic valve stenosis, etiology of cardiac valve disease unspecified documented in this encounter Discontinued Medications Medication Sig Discontinue Reason Start Date End Da te fluticasone (FLONASE ALLERGY RELIEF) 50 mcg/actuation nasal spray Administer 2 sprays into each nostril daily. Duplicate order 11/17/2019 documented as of this encounter Care Teams Supervisor Histology Relationship Specialty Start Date End Date Martin López MD [address] [place] [address] PCP - General 06/27/12 Khalif Caraballo MD [address] [place] [address] Referring Physician Cardiology 04/08/19 documented as of this encounter
--- OUTSIDE RECORDS SUMMARY | 2024-04-20 00:19 | XMS_ITS | Encounter Summary ---
Author Organization [facility] Address [address] [place] [address] Phone Care Team Providers Care Director Of Therapy Services Name Role Phone Martin López MD Primary Care Provider Khalif Ca MD Unavailable [phone] Reason for Visit * Diagnostic Imaging (Routine) - Closed Specialty Diagnoses / Procedures Referred By Bharat t Referred To Contact Diagnoses Aortic valve stenosis, etiology of cardiac valve disease unspecified Procedures TAVR Transthoracic Echocardiogram Complete Leslie Barker MD Phone: tel: fax: [address] [address] Referral ID Status Reason Start Date Expiration Date Visits Re quested Visits Authorized [id number] Closed 05/06/2019 11/14/2020 1 1 Encounter Details Date Type Department Care Team (Latest Contact Info) Description 11/04/2019 2:00 PM CDT Ancillary Procedure [address] [place] [address] Leslie Barker MD [address] [place] [address] Aortic valve stenosis, etiology of cardiac valve disease unspecified Social History Tobacco Use Types Packs/Day Years Used Date Smoking Tobacco: Never Smokeless Tobacco: Never Sex and Gender Information Value Date Recorded Sex Assigned at Not on file 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 Gender Identity Male 07/25/2023 3:40 PM CDT Sexual Orientation Straight 10/28/2019 9: 50 AM CDT documented as of this encounter Plan of Treatment Not on file documented as of this encounter Procedures Procedure Name Priority Date/Time Associated Diagnosis Comments TRANSTHORACIC ECHO (TTE) COMPLETE W DOPPLER/CF W CONTRAST Routine 11/04/2019 2:53 PM CDT Aortic valve stenosis, etiology of cardiac valve disease unspecified documented in this encounter Results * TRANSTHORACIC ECHO (TTE) COMPLETE W DOPPLER/CF W CONTRAST (11/04/2019 2:53 PM CDT) Anatomical Region Laterality Modality Ultrasound 11/04/2019 2:00 PM CDT Narrative 11/05/2019 3:12 PM CDT Patient name: Nathan Wagner Date of test: 11/04/2019 Type of test: TTE w/Doppler [facility] #: [id number] Date of : 1945 (M) Tape Maker: SILVIA Ansari Referring Physician: LESLIE BARKER MD Contrast Agent: 0.8 ml Optison Administered, (2.2 ml wasted). Contrast Administered by: Juliann Lisa RN Supervised/Interpreted by: Jorge Hunter MD Diagnosis: Location: [facility] Reason for test: Aortic valve stenosis, etiology of cardiac valve disease unspecified MV Structure: normal, ?MV Motion: normal, ?? Mitral Annulus: AV Structure: tricuspid and is stenotic/calcified, ?? AV Motion: restricted Aotic root: atherosclerotic, nl in size, ?TM: normal, ?? PV: Valvular Vegetations: none seen, ?Mass/Thrombi: not seen RA: normal Measurements: ?M-Mode ?Normal ? Aotic Root: ? <3.8 ? LA: ? <4.0 ? RV: ? <2.8 ? LV(ED): ? <5.7 ? LV(ES): ? Variable ?2D Linear Normal ? Aotic Root: 3.7 cm ?<4.0 ? Ao Indexed: 1.8 cm/M2 <2.0 ? LA: ? <4.0 ? RV: ? 3.7 cm ?<4.2 ? LV(ED): ? 5.4 cm ?<5.9 ? LV(ES): ? 3.7 cm ?<4.0 ?2D Vol. ?? Normal ?Indexed ?? Indexed Normal RA: ? 19.0 ml ? 9.0 ml/M2 ? 11-39 ? LA: ? 49.0 ml ? 23.2 ml/M2 ?16-34 ? RV: ? <12.7 ? LV(ED): ? 133.0 ml ??62-150 ?62.9 ml/M2 ?<75 ? LV(ES): ? 38.0 ml ?? 21-61 ? 18.0 ml/M2 ?<32 ?3D Vol. ? Indexed Normal LV(ED): ? 58.7 mL/m2 ?? <75 ? LV(ES): ? 35.0 mL/m2 ?? <32 ? LV EF: 71 % ?? (Normal: >=52%) ?? LV Septum: 1.4 cm ?(Normal: <1.0 cm) Wall Motion Scoring (1=Normal 2=Hypo 3=Akinetic 4=Dyskin./Aneurysm 0=Not visualized) Parasternal Long Fisher:MAS=1 BAS=1 MIL=1 AGUSTÍN=1 Parasternal Short Fisher:MAS=1 MIS=1 HI=1 MIL=1 MAL=1 MA=1 Apical 4 Chambers:=1 MIS=1 BIS=1 BAL=1 MAL=1 AL=1 AC=1 Apical 2 Chambers:AI=1 HI=1 BI=1 BA=1 MA=1 AA=1 AC=1 LV Global Longitudinal Strain: RV Global Longitudinal Strain: LV Function: Normal LV Ejection Fraction, (EF=52-72%) RV Function: Normal Septal Motion: normal Pericardial Effusion: none seen Atrial Septum: lipomatous hypertrophy-septum DOPPLER/COLOR FLOW DOPPLER RESULTS: Diastolic Function: Grade I, altered relax. w/N. LA pres. Tricuspid Valve: Trace TR Pulmonic Valve: No CO AV Regurgitation: No AR seen AV Stenosis: severe AV Area: 0.9 cm2 AV Pressure Gradient (mmHg): Mean: 46, Peak:71 MV Regurgitation: No MR seen MV Stenosis: no MS MV Area: ??cm2 MV Pressure Gradient (mmHg): Mean: 0 MV ERO: ??cm Regurg. Vol.: ??ml/beat Regurg. Frac.: ??% PA Pressure: ??mmHg DOPPLER/COLOR FOLOW DOPPLER COMMENTS: No AR seen, No MR seen, severe , no MS, Trace TR, No CO. Diastolic function: Grade I, altered relax. w/N. LA pres. PV Vmax 1.5m/s. LVOTd: 2.1cm, AV Vmax 4.5m/s. LENORA/BSA: 0.4cm2/m2 ??LVOT/AV VTI:26/103 , DI 0.25 CONTRAST: 0.8 ml Optison Administered, (2.2 ml wasted). SUMMARY: LA nl in size. Normal LV size with mild concentric LVH. Normal LV function. LVEF 71%. Strain quality is inadequate for accurate reporting. ??Normal RV size and function. Severe with LENORA 0.9cm2, mean/peak gradient 46/71mmhg, and DI 0.25. ??No AR. Trace TR. Unable to estimate PASP d/t inadequate TR jet. ??Atherosclerotic aortic root 3.7cm at SoV (nl in size). ??Prox asc Ao 3.6cm. ??IVC not well visualized. Confirmed on ??11/05/2019 - 15:12:49 by Jorge Hunter MD By signing this report, the attending time study analyst certifies that he or she has personally supervised and interpreted the echocardiogram and has reviewed and or edited and agrees with the written comments contained within the report. Procedure Note Jorge Hunter MD - 11/05/2019 Patient name: Nathan Wagner Date of test: 11/04/2019 Type of test: TTE w/Doppler [facility] #: [id number] Date of : 1945 (M) Tape Maker: SILVIA Ansari Referring Physician: LESLIE BARKER MD Contrast Agent: 0.8 ml Optison Administered, (2.2 ml wasted). Contrast Administered by: Juliann Lisa RN Supervised/Interpreted by: Jorge Hunter MD Diagnosis: Location: [facility] Reason for test: Aortic valve stenosis, etiology of cardiac valve disease unspecified MV Structure: normal, MV Motion: normal, Mitral Annulus: AV Structure: tricuspid and is stenotic/calcified, AV Motion: restricted Aotic root: atherosclerotic, nl in size, TM: normal, PV: Valvular Vegetations: none seen, Mass/Thrombi: not seen RA: normal Measurements: M-Mode Normal Aotic Root: <3.8 LA: <4.0 RV: <2.8 LV(ED): <5.7 LV(ES): Variable 2D Linear Normal Aotic Root: 3.7 cm <4.0 Ao Indexed: 1.8 cm/M2 <2.0 LA: <4.0 RV: 3.7 cm <4.2 LV(ED): 5.4 cm <5.9 LV(ES): 3.7 cm <4.0 2D Vol. Normal Indexed Indexed Normal RA: 19.0 ml 9.0 ml/M2 11-39 LA: 49.0 ml 23.2 ml/M2 16-34 RV: <12.7 LV(ED): 133.0 ml 62-150 62.9 ml/M2 <75 LV(ES): 38.0 ml 21-61 18.0 ml/M2 <32 3D Vol. Indexed Normal LV(ED): 58.7 mL/m2 <75 LV(ES): 35.0 mL/m2 <32 LV EF: 71 % (Normal: >=52%) LV Septum: 1.4 cm (Normal: <1.0 cm) Wall Motion Scoring (1=Normal 2=Hypo 3=Akinetic 4=Dyskin./Aneurysm 0=Not visualized) Parasternal Long Fisher:MAS=1 BAS=1 MIL=1 AGUSTÍN=1 Parasternal Short Fisher:MAS=1 MIS=1 HI=1 MIL=1 MAL=1 MA=1 Apical 4 Chambers:=1 MIS=1 BIS=1 BAL=1 MAL=1 AL=1 AC=1 Apical 2 Chambers:AI=1 HI=1 BI=1 BA=1 MA=1 AA=1 AC=1 LV Global Longitudinal Strain: RV Global Longitudinal Strain: LV Function: Normal LV Ejection Fraction, (EF=52-72%) RV Function: Normal Septal Motion: normal Pericardial Effusion: none seen Atrial Septum: lipomatous hypertrophy-septum DOPPLER/COLOR FLOW DOPPLER RESULTS: Diastolic Function: Grade I, altered relax. w/N. LA pres. Tricuspid Valve: Trace TR Pulmonic Valve: No CO AV Regurgitation: No AR seen AV Stenosis: severe AV Area: 0.9 cm2 AV Pressure Gradient (mmHg): Mean: 46, Peak:71 MV Regurgitation: No MR seen MV Stenosis: no MS MV Area: cm2 MV Pressure Gradient (mmHg): Mean: 0 MV ERO: cm Regurg. Vol.: ml/beat Regurg. Frac.: % PA Pressure: mmHg DOPPLER/COLOR FOLOW DOPPLER COMMENTS: No AR seen, No MR seen, severe , no MS, Trace TR, No CO. Diastolic function: Grade I, altered relax. w/N. LA pres. PV Vmax 1.5m/s. LVOTd: 2.1cm, AV Vmax 4.5m/s. LENORA/BSA: 0.4cm2/m2 LVOT/AV VTI:26/103 , DI 0.25 CONTRAST: 0.8 ml Optison Administered, (2.2 ml wasted). SUMMARY: LA nl in size. Normal LV size with mild concentric LVH. Normal LV function. LVEF 71%. Strain quality is inadequate for accurate reporting. Normal RV size and function. Severe with LENORA 0.9cm2, mean/peak gradient 46/71mmhg, and DI 0.25. No AR. Trace TR. Unable to estimate PASP d/t inadequate TR jet. Atherosclerotic aortic root 3.7cm at SoV (nl in size). Prox asc Ao 3.6cm. IVC not well visualized. Confirmed on 11/05/2019 - 15:12:49 by Jroge Hunter MD By signing this report, the attending time study analyst certifies that he or she has personally supervised and interpreted the echocardiogram and has reviewed and or edited and agrees with the written comments contained within the report. Leslie Barker MD CV ECHO PROCEDURES Final Res ult documented in this encounter Visit Diagnoses Diagnosis Aortic valve stenosis, etiology of cardiac valve disease unspecified documented in this encounter Administered Medications Inactive Administered Medications - up to 3 most recent administrations Medication Order MAR Action Action Date Dose Rate Site perflutren protein-a (OPTISON) 3 mL in sodium chloride 0.9% 8 mL syringe 1-8 mL, intravenous, Once in imaging, contrast, Starting on Sat11/04/19 at 1416, For 1 dose, Intra-Procedure (CV) Given 11/04/2019 2:52 PM CDT 2 mL documented in this encounter Care Teams Director Of Therapy Services Relationship Specialty Start Date End Date Martin López MD [address] [place] [address] PCP - General 06/27/12 Khalif Ca MD [address] [place] [address] Referring Physician Cardiology 04/08/19 documented as of this encounter
--- OUTSIDE RECORDS SUMMARY | 2024-04-20 00:19 | XMS_ITS | Encounter Summary ---
Author Organization [facility] Address [address] [place] [address] Phone Care Team Providers Care Rock Star Name Role Phone Martin López MD Primary Care Provider Khalif Ca MD Unavailable [phone] Encounter Details Date Type Department Care Team (Late st Contact Info) Description 04/12/2020 Telephone [facility] Cardiology [address] [facility] [address] [place] [address] Khalif Ca MD [address] [place] [address] Social History Tobacco Use Types Packs/Day Years Used Date Smoking Tobacco: Never Smokeless Tobacco: Never Sex and Gender Information Value Date Recorded Sex Assigned at Not on file 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 Pt has no further questions- he left a message with Dr. Torre's office yesterday about test results and has an appt with Dr. Torre on 04/27. HOUSE STOCK CLERK * Telephone Encounter - Vijaya Barraza RN - 04/12/2020 8:25 AM CST Echo results from 04/11: SUMMARY: Severe . LENORA 0.5cm2. Mean AV [...] Impaired Relaxation. As compared to previous study 7--20, remains severe, LENORA and AV gradients are worse. Dr. Ca' recommendations: Khalif Ca MD 04/11/2020 4:05 PM Refer valve clinic severe Pt is already being followed by Dr. Torre-- will notify pt to make sure he f/u with them. HOUSE STOCK CLERK documented in this encounter Plan of Treatment Not on file documented as of this encounter Visit Diagnoses Not on filedocumented in this encounter Care Teams Rock Star Relationship Specialty Start Date End Date Martin López MD [address] [address] PCP - General 06/27/12 Khalif Ca MD [address] [place] [address] Referring Physician Cardiology 04/08/19 documented as of this encounter
--- OUTSIDE RECORDS SUMMARY | 2024-04-20 00:19 | XMS_ITS | Encounter Summary ---
Author Organization [facility] Address [address] [place] [address] Phone Care Team Providers Care Counselor Aid Name Role Phone Martin López MD Primary Care Provider Khalif Ca MD Unavailable [phone] Reason for Visit * Reason Onset Date Comments [facility] per MS recs 04/27/2020 Encounter Details Date Type Department Care Team (Late st Contact Info) Description 04/27/2020 Telephone [facility] Cardiology [address] [facility] [address] [place] [address] Tera Torre MD [address] [place] [address] [facility] per MS recs Social History Tobacco Use Types Packs/Day Years Used Date Smoking Tobacco: Never Smokeless Tobacco: Never Sex and Gender Information Value Date Recorded Sex Assigned at Not on file 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 POLISHER AND INSPECTOR * Telephone Encounter - Erin Casas RN - 05/17/2020 2:42 PM CST Images from the original note were not included. Tasha Jo RN Hoernis, Erin N.; Erin Casas RN ?? Can you please put this pt back on the books for C w [place] for 05/25 Please reschedule prior case for 05/25/2020 per recs. POLISHER AND INSPECTOR * Telephone Encounter - Shelbi Bates - 04/27/2020 2:36 PM CST Added to calendar. POLISHER AND INSPECTOR * Telephone Encounter - Erin Casas RN - 04/27/2020 2:18 PM CST Per message via Fausto Jo RN, pt to undergo [facility] w/ MS on 05/11/2020. Case opened. Labs to be obtained via [facility] during ROV on 04/27/2020. POLISHER AND INSPECTOR * Telephone Encounter - Erin Casas RN - 04/27/2020 2:17 PM CST ----- Message from Tasha Jo RN sent at 04/27/2020 2:12 PM SHOT POLISHER AND INSPECTOR ----- This pt needs booked for C in [facility] on 05/11 Thank you POLISHER AND INSPECTOR documented in this encounter Plan of Treatment Not on file documented as of this encounter Visit Diagnoses Not on filedocumented in this encounter Care Teams Counselor Aid Relationship Specialty Start Date End Date Martin López MD [address] [address] PCP - General 06/27/12 Khalif Ca MD [address] [facility] [address] [place] [address] Referring Physician Cardiology 04/08/19 documented as of this encounter
--- OUTSIDE RECORDS SUMMARY | 2024-04-20 00:19 | XMS_ITS | Encounter Summary ---
Author Organization [facility] Address [address] [place] [address] Phone Care Team Providers Care Test And Research Reactor Operator Name Role Phone Martin López MD Primary Care Provider Khalif Ca MD Unavailable [phone] Encounter Details Date Type Department Care Team (Late st Contact Info) Description 05/13/2019 Documentation [facility] Cardiology [address] [facility] 8th [place] [address] [place] [address] Tasha Jo RN Social History Tobacco Use Types Packs/Day Years Used Date Smoking Tobacco: Never Smokeless Tobacco: Never Sex and Gender Information Value Date Recorded Sex Assigned at Not on file 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 [address] [place] [id number] Referring Physician Cardiology 04/08/19 documented as of this encounter
--- OUTSIDE RECORDS SUMMARY | 2024-04-20 00:19 | XMS_ITS | Encounter Summary ---
Author Organization [facility] Address [address] [place] [address] Phone Care Team Providers Care Railroad Construction Director Name Role Phone Martin López MD Primary Care Provider Khalif Ca MD Unavailable [phone] Encounter Details Date Type Department Care Team (Late st Contact Info) Description 11/04/2019 1:00 PM CDT Office Visit 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 Gender Identity Male 07/25/2023 3:40 PM CDT Sexual Orientation Straight 10/28/2019 9: 50 AM CDT documented as of this encounter Last Filed Vital Signs Vital Sign Reading Time Taken Comments Blood Pressure 136/74 11/04/2019 12:58 PM CDT Pulse 87 11/04/2019 12:58 PM CDT Temperature 36.7 ??C (98 ??F) 11/04/2019 12: 58 PM CDT Respiratory Rate - - Oxygen Saturation 98% 11/04/2019 12: 58 PM CDT Inhaled Oxygen Concentration - - Weight 96.1 kg (211 lb 12.8 oz) 020 12:58 PM CDT Height 175.3 cm (5' 9 ) 11/04/2019 12:5 8 PM CDT Body Mass Index 31.28 11/04/2019 12:58 PM CDT documented in this encounter Patient Instructions * Patient Instructions* Tera Torre MD - 11/04/2019 1:00 PM CDT Number documented in this encounter Progress Notes * Tera Torre MD - 11/04/2019 1:00 PM CDT Images from the original note were not included. [facility] Department of Medicine Cardiovascular Division Tera Torre M.D. [facility] [place] [address], [address] [place], [place] [address], [email or web address] Date: 11/04/19 Primary care Physician Martin López MD [address] [place] [address] Patient Name: Nathan Wagner Date of : 1945 Date of Visit: 11/04/19 PRINCIPAL AND SECONDARY DIAGNOSES: 1. Severe aortic stenosis with a mean gradient 42 mm Hg and EF 55%. Currently asymptomatic 2. Hypertension INTERVAL HISTORY: We had the pleasure of seeing Nathan Wagner today [facility] for follow-up of his aortic valve disease. As you know, He is a pleasant 73 y.o. male who we last saw approximately 6 months ago for evaluation of severe aortic stenosis. At that time he had no symptoms was x-ray on a treadmill on a regular basis. Since we last saw him he has continued to feel quite well with the exce ption of some back discomfort. He was continue to walk on the treadmill for 3-5 miles several timesa week without difficulty or limitations. He then developed some back discomfort that his sideline him for almost a month. He still is doing light aerobic exercise and is having no symptoms. He denies any chest pain pressure tightness. Denies any dizziness lightheadedness presyncope or syncopal episodes. Denies any lower extremity edema PND orthopnea. Overall he has been doing well and has no change in his health status since we last saw him CURRENT MEDICATIONS: Current Outpatient Medications: ??? amLODIPine (NORVASC) 10 mg tablet ??? aspirin 81 mg tablet ??? atorvastatin (LIPITOR) 10 mg tablet ??? azelastine 0.15 % (205.5 mcg) spray,non-aerosol ??? benazepril (LOTENSIN) 5 mg tablet ??? clobetasol (TEMOVATE) 0.05 % external solution ??? montelukast (SINGULAIR) 10 mg tablet ??? travoprost (TRAVATAN Z) 0.004 % drops ??? fluticasone (FLONASE ALLERGY RELIEF) 50 mcg/actuation nasal spray ??? methylPREDNISolone (MEDROL DOSEPACK) 4 mg Dosepack Current Facility-Administered Medications: ??? perflutren protein-a (OPTISON) 3 mL in sodium chloride 0.9% 8 mL syringe, 1- 8 mL, intravenous, Once in imaging PHYSICAL EXAMINATION: Vitals: 11/04/19 1258 BP: 136/74 BP Location: Right arm Patient Position: Sitting Pulse: 87 Temp: 36.7 ??C (98 ??F) TempSrc: Oral SpO2: 98% Weight: 96.1 kg (211 lb 12.8 oz) Height: 175.3 cm (5' 9 ) GENERAL: He is alert and oriented, in no acute distress. Speaks in full sentences. HEENT: Extraocular muscles intact. Sclerae white. Mucous membranes are moist. NECK: No thyromegaly. No lymphadenopathy. No JVD. LUNGS: Clear to auscultation bilaterally. HEART: Regular rate and rhythm. Severe murmur, gallops or rubs presents ABDOMEN: Non tender, no distended. No hepatosplenomegaly. MUSCULOSKELETAL: He has +5 strength in both upper and lower extremities, bilateral and symmetric. NEUROLOGIC: He is alert and oriented x4. Grossly normal motor and sensation bilaterally and symmetric. VASCULAR: He has +2 radial pulses bilaterally and symmetric. No lower extremity edema. IMPRESSION AND PLAN: 1. Aortic stenosis. He is currently asymptomatic. I would like to repeat his transthoracic echocardiogram today to evaluate progression of his valvular pathology and to confirm his LV function is still normal. Should he have no changes in his echocardiogram, I would recommend follow-up in 6 months time. We will continue to get yearly echoes as determined by his most recent echo. Should he have any other symptoms or changes in his symptoms he is to contact our office immediately for evaluation. He has no limitations in his physical activity at this point in time. Should he require any sort of operation on his back, I have asked him to contact me for evaluation at that time. 2. Hypertension. His blood pressure is under excellent control. He should continue these medications without change. Thank you for allowing me to participate in the care of this patient. We would be happy to see him back in 6 months time or sooner as needed. Please don't hesitate to reach out with any questions or concerns. Tera Torre M.D. Decorating Instructorglass cut off supervisor CC: Martin López MD [address] [address] documented in this encounter Plan of Treatment Not on file documented as of this encounter Visit Diagnoses Diagnosis Aortic valve stenosis, etiology of cardiac valve disease unspecified- Primary documented in this encounter Care Teams Railroad Construction Director Relationship Specialty Start Date End Date Martin López MD [address] [place] [address] PCP - General 06/27/12 Khalif Ca MD [address] [place] [address] Referring Physician Cardiology 04/08/19 documented as of this encounter
--- OUTSIDE RECORDS SUMMARY | 2024-04-20 00:19 | XMS_ITS | Encounter Summary ---
Author Organization [facility] Address [address] [place] [address] Phone Care Team Providers Care Manager Farm Name Role Phone Martin López MD Primary Care Provider Kahlif Ca MD Unavailable [phone] Encounter Details Date Type Department Care Team (Late st Contact Info) Description 11/04/2019 Orders Only [facility] Cardiology [address] [facility] [address] [place] [id number] Barb Oliver CMA Social History Tobacco Use Types Packs/Day Years Used Date Smoking Tobacco: Never Smokeless Tobacco: Never Sex and Gender Information Value Date Recorded Sex Assigned at Not on file 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 Medication Sig Dispense Quantity Refills Last Filled Start D ate End Date methylPREDNISolone (MEDROL DOSEPACK) 4 mg Dosepack 10/12/2019 05/10/2020 added in this encounter Care Teams Manager Farm Relationship Specialty Start Date End Date Martin López MD [address] [place] [address] PCP - General 06/27/12 Khalif Ca MD [address] [facility] [address] [place] [address] Referring Physician Cardiology 04/08/19 documented as of this encounter
--- OUTSIDE RECORDS SUMMARY | 2024-04-20 00:19 | XMS_ITS | Encounter Summary ---
Author Organization [facility] Address [address] [place] [address] Phone Care Team Providers Care Wincher Name Role Phone Martin López MD Primary Care Provider Khalif Ca MD Unavailable [phone] Encounter Details Date Type Department Care Team (Late st Contact Info) Description 11/11/2019 Orders Only [facility] Cardiology [address] [facility] Advanced Medicine 8th [place] [address] [place] [address] Kristina Aguilar RMA Aortic valve stenosis, etiology of cardiac valve disease unspecified (Primary Dx) Social History Tobacco Use Types Packs/Day Years Used Date Smoking Tobacco: Never Smokeless Tobacco: Never Sex and Gender Information Value Date Recorded Sex Assigned at Not on file Legal Sex Male 9:13 PM ENGINEERING CLERK Gender Identity Male 07/25/2023 3:40 PM CDT Sexual Orientation Straight 10/28/2019 9: 50 AM CDT documented as of this encounter Miscellaneous Notes * Addendum Note - Alfonso Sweeney - 11/11/2019 10:11 AM CDTAddended by: ALFONSO SWEENEY on: 04/11/2020 09:40 AM Modules accepted: Orders NEERING CLERK documented in this encounter Plan of Treatment Not on file documented as of this encounter Results * CBC with auto differential (04/11/2020 9:40 AM ENGINEERING CLERK) WBC 7.4 3.8 - 9.9 K/cumm [facility] Hgb 16.4 13.0 - 17.5 g/dL [facility] Hct 49.2 38.9 - 50.3 % [facility] Plt 240 150 - 400 K/cumm [facility] MPV 12.0 9.1 - 12.3 fL [facility] RBC 5.65 4.30 - 5.80 M/cumm [facility] MCV 87.1 81.3 - 96.4 fL [facility] MCH 29.0 27.1 - 33.3 pg [facility] MCHC 33.3 32.3 - 35.7 g/dL [facility] RDW CV 13.5 11.1 - 14.9 % [facility] RDW SD 42.4 35.7 - 48.1 fL [facility] NRBC abs 0.00 0.00 - 0.01 K/cumm [facility] Blood specimen (specimen) 04/11/2020 9:40 AM ENGINEERING CLERK 04/11/2020 12:44 PM ENGINEERING CLERK us Tera Torre MD LAB BLOOD ORDERABLES Final R esult [facility] [address] [facility]. [place] [address] * (ABNORMAL) Basic metabolic panel (04/11/2020 9:40 AM ENGINEERING CLERK) Pathologist [facility] Sodium 139 135 - 145 mmol/L [facility] Potassium, pl 4.5 3.3 - 4.9 mmol/L [facility] Chloride 100 97 - 110 mmol/L [facility] CO2 29 22 - 32 mmol/L [facility] Anion gap 10 2 - 15 mmol/L [facility] BUN 14 8 - 25 mg/dL [facility] Creatinine 1.00 0.80 - 1.30 mg/dL [facility] Glucose 110 70 - 199 mg/dL [facility] Comment: Interpretive Data Fasting glucose >/= [...] interpretive data was last revised 2017. Calcium 10.4(H) 8.5 - 10.3 mg/dL [facility] Blood specimen (specimen) 04/11/2020 9:40 AM ENGINEERING CLERK 04/11/2020 12:44 PM ENGINEERING CLERK Tera Torre MD LAB BLOOD ORDERABLES Final R esult [facility]NA ARANDA [address] [facility]. Department [place] [place] [address] * Pro B-type natriuretic peptide (04/11/2020 9:40 AM ENGINEERING CLERK) NT-proBNP 106 <=300 pg/mL [facility] Comment: Interpretive Comments: A. Dyspnea in Acute [...] et.al. Eur Heart J. 2006:27:330-337. 2. Camila MONAHAN, Irina SLADE. J. AM Christiano Cardiol: Cardiovasc Imag. 2009;2: 216- 225. Interpretive Data Last Revised Date: 2017. Blood specimen (specimen) 04/11/2020 9:40 AM ENGINEERING CLERK 04/11/2020 12:44 PM ENGINEERING CLERK us Tera Torre MD LAB BLOOD ORDERABLES Final R esult Performing Organization Address City/State/[facility] Co de Phone Number [facility] [address] [facility]. [place] [address] documented in this encounter Visit Diagnoses Diagnosis Aortic valve stenosis, etiology of cardiac valve disease unspecified- Primary documented in this encounter Care Teams Wincher Relationship Specialty Start Date End Date Martin López MD [address] [place] [address] PCP - General 06/27/12 Khalif Ca MD [address] [place] [address] Referring Physician Cardiology 04/08/19 documented as of this encounter
--- OUTSIDE RECORDS SUMMARY | 2024-04-20 00:19 | XMS_ITS | Encounter Summary ---
Author Organization [facility] Address [address] [place] [address] Phone Care Team Providers Care Clinical Transformation Specialist Name Role Phone Martin López MD Primary Care Provider Khalif Ca MD Unavailable [phone] Reason for Referral * Diagnostic Imaging (Routine) - Closed Specialty Diagnoses / Procedures Referred By Bharat bell Referred To Contact Radiology Diagnoses Aortic valve stenosis, etiology of cardiac valve disease unspecified Procedures CT TAVR Tera Torre MD Phone: tel: fax: [address] [address] Referral ID Status Reason Start Date Expiration Date Visits Re quested Visits Authorized [id number] Closed 04/27/2020 05/27/2021 1 1 FORMER Encounter Details Date Type Department Care Team (Late st Contact Info) Description 04/27/2020 1:30 PM NUT FORMER Office Visit [facility] Cardiology [address] [place] [address] Medical Office Building [address] [place] [address] Aortic valve stenosis, etiology of cardiac valve disease unspecified (Primary Dx) Social History Tobacco Use Types Packs/Day Years Used Date Smoking Tobacco: Never Smokeless Tobacco: Never Sex and Gender Information Value Date Recorded Sex Assigned at Not on file Legal Sex Male 9:13 PM NUT FORMER Gender Identity Male 07/25/2023 3:40 PM CDT Sexual Orientation Straight 10/28/2019 9: 50 AM CDT documented as of this encounter Last Filed Vital Signs Vital Sign Reading Time Taken Comments Blood Pressure 150/74 04/27/2020 1:17 PM NUT FORMER Pulse 57 04/27/2020 1:17 PM NUT FORMER Temperature 36.6 ??C (97.9 ??F) 04/27/2020 1:17 PM CS T Respiratory Rate - - Oxygen Saturation 97% 04/27/2020 1:17 PM NUT FORMER Inhaled Oxygen Concentration - - Weight 98.3 kg (216 lb 12.8 oz) 04/27/2020 1:17 PM NUT FORMER Height 176.5 cm (5' 9.5 ) 04/27/2020 1:17 PM NUT FORMER Body Mass Index 31.56 04/27/2020 1:17 PM NUT FORMER documented in this encounter Progress Notes * Tera Torre MD - 04/27/2020 1:30 PM CST Images from the original note were not included. [facility] Department of Medicine Cardiovascular Division Tera Torre M.D. [facility] at [facility] [address], [address] [place] [id number], [email or web address] Date: 04/27/2020 Primary care Physician Martin López MD [address] [place] [address] Patient Name: Nathan Wagner Date of : 1945 Date of Visit: 04/27/2020 PRINCIPAL AND SECONDARY DIAGNOSES: 1. Severe aortic stenosis with a mean gradient 42 mm Hg and EF 55%. previously asymptomatic 2. Hypertension INTERVAL HISTORY: We had the pleasure of seeing Nathan Wagner today [facility] for follow-up of his aortic stenosis. As you know, He is a pleasant 74 y.o. male who we last saw about 6 months ago for evaluation of aortic stenosis. At that time he had clear severe aortic stenosis on his transthoracic echocardiogram but was asymptomatic. He was walking on the treadmill and doing the activities without symptoms. We discussed at length just watchful waiting. He now returns for follow-up. Since we last saw him he has generally felt about the same. He continues to walk on his treadmillwithout difficulty or limitations. He denies any shortness of breath PND orthopnea. Denies any chest pain pressure tightness. Denies any dizziness lightheadedness presyncope or syncopal episodes. Hiswife comments that he is perhaps more fatigued during the day although he has a difficult time agreeing with this. He is slightly worried about his valve and that it has progressed. In general he is concerned about needing a valve replacement. CURRENT MEDICATIONS: Current Outpatient Medications: ??? amLODIPine (NORVASC) 10 mg tablet ??? aspirin 81 mg tablet ??? atorvastatin (LIPITOR) 10 mg tablet ??? azelastine 0.15 % (205.5 mcg) spray,non-aerosol ??? benazepril (LOTENSIN) 5 mg tablet ??? clobetasol (TEMOVATE) 0.05 % external solution ??? montelukast (SINGULAIR) 10 mg tablet ??? travoprost (TRAVATAN Z) 0.004 % drops ??? methylPREDNISolone (MEDROL DOSEPACK) 4 mg Dosepack PHYSICAL EXAMINATION: Vitals: 04/27/20 1317 BP: 150/74 BP Location: Right arm Patient Position: Sitting Pulse: 57 Temp: 36.6 ??C (97.9 ??F) TempSrc: Temporal SpO2: 97% Weight: 98.3 kg (216 lb 12.8 oz) Height: 176.5 cm (5' [...] 106. IMPRESSION AND PLAN: 1. Aortic stenosis. I had a very lengthy conversation of greater than 30 minutes with both him and his regarding aortic valve replacement and his current symptomatology. I do believe he is largely asymptomatic although the increasing fatigue does worry me some. In addition his aortic valve clearly has gotten more severely narrowed since his last echocardiogram. He is extremely anxious about h is valve narrowing and also has been limiting some of his activities because of his concern over his aortic stenosis. I believe given his mild fatigue and his limitation of activities along with the anxiety that this is causing him and his family, he should proceed with evaluation for aortic valve replacement therapies. He is clearly low risk for surgical aortic valve replacement. I would like toobtain a TAVR protocol CT to evaluate his candidacy for transcatheter valve therapies. I would alsolike to obtain a left heart catheterization. Once we have this information I will arrange an appointment for him with our cardiac surgeons and we can decide the best course of action. Again I do believe he is minimally symptomatic but his valve has progressed and he is desiring valve replacement therapy. Thank you for allowing me to participate in the care of this patient. We would be happy to see him back soon for further diagnostic testing. Please don't hesitate to reach out with any questions or concerns. Tera Torre M.D. Bilingual Sales Consultanttiler CC: Martin López MD [address] [address] FORMER documented in this encounter Plan of Treatment Not on file documented as of this encounter Results * CT TAVR (05/03/2020 2:16 PM NUT FORMER) Anatomical Region Laterality Modality Chest N/A Computed Tomogra phy 05/04/2020 11:4 1 AM NUT FORMER Addenda Addendum by Obie Ware MD on 09/12/2021 5:[address] PM CDT Follow up CT CHEST done on 09/05/21. Octavia SANCHEZ, RN. Edited by: Octavia Waddell Electronically signed by: Obie Ware M.D. Impressions 05/04/2020 5:18 PM NUT FORMER 1. Severe aortic valvular stenosis. 2. Aortic [...] Obie Ware M.D. Narrative 05/04/2020 5:18 PM NUT FORMER EXAMINATION: Heart CT and CTA abdomen and [...] etiology of cardiac valve disease unspecified- Primary Aortic valve stenosis, etiology of cardiac valve disease unspecified documented in this encounter Care Teams Clinical Transformation Specialist Relationship Specialty Start Date End Date Martin López MD [address] [place] [address] PCP - General 06/27/12 Khalif Ca MD [address] [place] [address] Referring Physician Cardiology 04/08/19 documented as of this encounter
--- OUTSIDE RECORDS SUMMARY | 2024-04-20 00:19 | XMS_ITS | Encounter Summary ---
Author Organization [facility] Address [address] [place] [address] Care Team Providers Care Personnel Research Scientist Name Role Phone Martin López MD Primary Care Provider Khalif Ca MD Unavailable [phone] Encounter Details Date Type Department Care Team (Late st Contact Info) Description 04/11/2020 9:40 AM FACILITIES OPERATIONS TECHNICIAN Lab [facility] [address] [place] [address] Tera Torre MD [address] [place] [address] Aortic valve stenosis, etiology of cardiac valve disease unspecified Discharge Disposition: Discharge to home or self care Social History Tobacco Use Types Packs/Day Years Used Date Smoking Tobacco: Never Smokeless Tobacco: Never Sex and Gender Information Value Date Recorded Sex Assigned at Not on file Legal Sex Male 9:13 PM FACILITIES OPERATIONS TECHNICIAN Gender Identity Male 07/25/2023 3:40 PM CDT Sexual Orientation Straight 10/28/2019 9: 50 AM CDT documented as of this encounter Discharge Disposition Disposition Code Departure Means Destination Discharge to home or self care documented in this encounter Plan of Treatment Not on file documented as of this encounter Procedures Procedure Name Priority Date/Time Associated Diagnosis Comments EGFR Routine 04/11/2020 9:40 AM FACILITIES OPERATIONS TECHNICIAN Aortic valve stenosis, etiology of cardiac valve disease unspecified DIFFERENTIAL AUTO Routine 04/11/2020 9:4 0 AM FACILITIES OPERATIONS TECHNICIAN Aortic valve stenosis, etiology of cardiac valve disease unspecified PRO B-TYPE NATRIURETIC PEPTIDE Routine 04/11/2020 9:40 AM FACILITIES OPERATIONS TECHNICIAN Aortic valve stenosis, etiology of cardiac valve disease unspecified CBC WITH AUTO DIFFERENTIAL Routine 04/11/2020 9:40 AM FACILITIES OPERATIONS TECHNICIAN Aortic valve stenosis, etiology of cardiac valve disease unspecified BASIC METABOLIC PANEL Routine 04/11/2020 9:40 AM FACILITIES OPERATIONS TECHNICIAN Aortic valve stenosis, etiology of cardiac valve disease unspecified documented in this encounter Results * eGFR (04/11/2020 9:40 AM FACILITIES OPERATIONS TECHNICIAN) [facility] eGFR 74 mL/min/1.7 3 m2 [facility] Comment: Interpretive Data Reference Interval Normal ?>/= 90 mL/min/1.73m2 Mildly decreased* ? 60 - 89 mL/min/1.73m2 Mildly to moderately decreased ?45 - 59 mL/min/1.73m2 Moderately to severely decreased ??30 - 44 mL/min/1.73m2 Severely decreased ?15 - 29 mL/min/1.73m2 Kidney Failure ?< 15 ??mL/min/1.73m2 *Relative to young adult level If -Nigerian multiply value by 1.16. Estimated glomerular filtration [...] was last reviewed 2015. Blood specimen (specimen) 04/11/2020 9:40 AM FACILITIES OPERATIONS TECHNICIAN 04/11/2020 12:44 PM FACILITIES OPERATIONS TECHNICIAN Tera Torre MD LAB BLOOD ORDERABLES Final R esult [facility] [address] [place] [address] * Differential, auto (04/11/2020 9:40 AM FACILITIES OPERATIONS TECHNICIAN) Neutrophil abs 5.2 1.7 - 6.5 K/cumm [facility] Imm gran abs 0.0 0.0 - 0.1 K/cumm [facility] Lymphocyte abs 1.1 0.8 - 3.3 K/cumm [facility] Monocyte abs 0.7 0.2 - 0.8 K/cumm [facility] Eosinophil abs 0.3 0.0 - 0.5 K/cumm [facility] Basophil abs 0.0 0.0 - 0.1 K/cumm [facility] Neutrophil pct 71.1 % [facility] Comment: Interpretive Data Percent cell count reference ranges are not reported, since discordance with absolute values may lead to misinterpretation of CBC data. Current Interpretive Data was last revised on 2017. Imm gran pct 0.5 % [facility] Comment: Interpretive Data Percent cell count reference ranges are not reported, since discordance with absolute values may lead to misinterpretation of CBC data. Current Interpretive Data was last revised on 2017. Lymphocyte pct 14.5 % [facility] Comment: Interpretive Data Percent cell count reference ranges are not reported, since discordance with absolute values may lead to misinterpretation of CBC data. Current Interpretive Data was last revised on 2017. Monocyte pct 9.5 % [facility] Comment: Interpretive Data Percent cell count reference ranges are not reported, since discordance with absolute values may lead to misinterpretation of CBC data. Current Interpretive Data was last revised on 2017. Eosinophil pct 3.9 % [facility] Comment: Interpretive Data Percent cell count reference ranges are not reported, since discordance with absolute values may lead to misinterpretation of CBC data. Current Interpretive Data was last revised on 2017. Basophil pct 0.5 % [facility] Comment: Interpretive Data Percent cell count reference ranges are not reported, since discordance with absolute values may lead to misinterpretation of CBC data. Current Interpretive Data was last revised on 2017. Blood specimen (specimen) 04/11/2020 9:40 AM FACILITIES OPERATIONS TECHNICIAN 04/11/2020 12:44 PM FACILITIES OPERATIONS TECHNICIAN us Tera Torre MD LAB BLOOD ORDERABLES Final R esult [facility] [address] [facility]. [place] [address] * Pro B-type natriuretic peptide (04/11/2020 9:40 AM FACILITIES OPERATIONS TECHNICIAN) NT-proBNP 106 <=300 pg/mL [facility] Comment: [...] 2017. Blood specimen (specimen) 04/11/2020 9:40 AM FACILITIES OPERATIONS TECHNICIAN 04/11/2020 12:44 PM FACILITIES OPERATIONS TECHNICIAN Tera Torre MD LAB BLOOD ORDERABLES Final R esult [facility] [address] [facility]. [place] [address] * (ABNORMAL) Basic metabolic panel (04/11/2020 9:40 AM FACILITIES OPERATIONS TECHNICIAN) Sodium 139 135 - 145 mmol/L [facility] Potassium, pl 4.5 3.3 - 4.9 mmol/L [facility] Chloride 100 97 - 110 mmol/L [facility] CO2 29 22 - 32 mmol/L [facility] Anion gap 10 2 - 15 mmol/L [facility] BUN 14 8 - 25 mg/dL [facility] Creatinine 1.00 0.80 - 1.30 mg/dL [facility] Glucose 110 70 - 199 mg/dL [facility] Comment: Interpretive Data Fasting glucose >/= [...] 2017. Calcium 10.4(H) 8.5 - 10.3 mg/dL [facility] Blood specimen (specimen) 04/11/2020 9:40 AM FACILITIES OPERATIONS TECHNICIAN 04/11/2020 12:44 PM FACILITIES OPERATIONS TECHNICIAN Tera Torre MD LAB BLOOD ORDERABLES Final R esult Performing Organization Address City/[facility]/ZIP Co de Phone Number [facility] [address] [place] [address] * CBC with auto differential (04/11/2020 9:40 AM FACILITIES OPERATIONS TECHNICIAN) WBC 7.4 3.8 - 9.9 K/cumm [facility] Hgb 16.4 13.0 - 17.5 g/dL [facility] Hct 49.2 38.9 - 50.3 % [facility] Plt 240 150 - 400 K/cumm [facility] MPV 12.0 9.1 - 12.3 fL [facility] RBC 5.65 4.30 - 5.80 M/cumm [facility] MCV 87.1 81.3 - 96.4 fL [facility] MCH 29.0 27.1 - 33.3 pg [facility] MCHC 33.3 32.3 - 35.7 g/dL [facility] RDW CV 13.5 11.1 - 14.9 % [facility] RDW SD 42.4 35.7 - 48.1 fL [facility] NRBC abs 0.00 0.00 - 0.01 K/cumm [facility] Blood specimen (specimen) 04/11/2020 9:40 AM FACILITIES OPERATIONS TECHNICIAN 04/11/2020 12:44 PM FACILITIES OPERATIONS TECHNICIAN Tera Torre MD LAB BLOOD ORDERABLES Final R esult Performing Organization Address City/[facility]/ZIP Co de Phone Number [facility] [address] [email or web address] [address] documented in this encounter Visit Diagnoses Diagnosis Aortic valve stenosis, etiology of cardiac valve disease unspecified documented in this encounter Care Teams Personnel Research Scientist Relationship Specialty Start Date End Date Martin López MD [address] [facility] [address] [place] [address] PCP - General 06/27/12 Khalif Ca MD [address] [facility] [address] [place] [address] Referring Physician Cardiology 04/08/19 documented as of this encounter
--- OUTSIDE RECORDS SUMMARY | 2024-04-20 00:19 | XMS_ITS | Encounter Summary ---
Author Organization [facility] Healthcare Address [address] [place] [address] Care Team Providers Care Application Technician Name Role Phone Martin López MD Primary Care Provider Khalif Ca MD Unavailable [phone] Reason for Visit * Reason Comments Rectal Bleeding Encounter Details Date Type Department Care Team (Latest Contact Info) Description 05/10/2020 6:56 PM FIBER OPT[employer] SUPERVISOR - 05/11/2020 7:54 PM FIBER OPT[employer] SUPERVISOR Hospital Encounter [facility] [id number] [place] [address] Jones Dickson MD [address] [place] [address] Corazon Cain MD [address] [place] [address] Nina Alejo MD [address] [place] [address] Gastrointestinal hemorrhage, unspecified gastrointestinal hemorrhage type (Primary Dx) Discharge Disposition: Discharge to a short term hospital for IP Social History Tobacco Use Types Packs/Day Years Used Date Smoking Tobacco: Never Smokeless Tobacco: Never Sex and Gender Information Value Date Recorded Sex Assigned at Not on file Legal Sex Male 9:13 PM FIBER [employer] SUPERVISOR Gender Identity Male 07/25/2023 3:40 PM CDT Sexual Orientation Straight 10/28/2019 9: 50 AM CDT documented as of this encounter Last Filed Vital Signs Vital Sign Reading Time Taken Comments Blood Pressure 135/83 05/11/2020 7:45 PM FIBER OPT[employer] SUPERVISOR Pulse 92 05/11/2020 7:45 PM FIBER OPT[employer] SUPERVISOR Temperature 36.3 ??C (97.3 ??F) 05/11/2020 7:45 PM CS T Respiratory Rate 16 05/11/2020 7:45 PM FIBER OPTICS SUPERVISOR Oxygen Saturation 99% 05/11/2020 7:45 PM FIBER OPTICS SUPERVISOR Inhaled Oxygen Concentration - - Weight 96.3 kg (212 lb 3.2 oz) 05/11/2020 1:07 A M FIBER [employer] SUPERVISOR Height 175.3 cm (5' 9 ) 05/11/2020 1:07 AM FIBER [employer] SUPERVISOR Body Mass Index 31.34 05/11/2020 1:07 AM FIBER OPTICS SUPERVISOR documented in this encounter Discharge Diagnoses Diagnosis Diverticulosis of large intestine without perforation or abscess with bleeding - DIVERTICULOSIS OF LARGE INTESTINE WITHOUT PERFORATION OR ABSCESS WITH BLEEDING Nonrheumatic aortic (valve) stenosis - NONRHEUMATIC AORTIC (VALVE) STENOSIS Essential (primary) hypertension - ESSENTIAL (PRIMARY) HYPERTENSION Unspecified essential hypertension Hyperlipidemia, unspecified - HYPERLIPIDEMIA, UNSPECIFIED Personal history of peptic ulcer disease - PERSONAL HISTORY OF PEPTIC ULCER DISEASE Family history of ischemic heart disease and other diseases of the circulatory system - FAMILY HISTORY OF ISCHEMIC HEART DISEASE AND OTHER DISEASES OF THE CIRCULATORY SYSTEM Family history of malignant neoplasm, unspecified - FAMILY HISTORY OF MALIGNANT NEOPLASM, UNSPECIFIED roasterman (current) use of aspirin - WELD ENGINEER (CURRENT) USE OF ASPIRIN Other roasterman (current) drug therapy - OTHER ALF (CURRENT) DRUG THERAPY documented in this encounter Discharge Summaries * Nina Medina MD - 05/11/2020 2:44 PM CST Inpatient Discharge Summary BRIEF OVERVIEW Admitting Provider: Corazon Cain MD Discharge Provider: Corazon Cain MD Primary Care Physician at Discharge: Martin López MD [phone] Admission Date: 05/10/2020 Discharge Date: 05/11/2020 Admission Location: [facility] Problems/Diagnoses: Principal Problem: Gastrointestinal hemorrhage Active Problems: Acute GI bleeding Severe aortic stenosis HTN (hypertension) Hyperlipidemia Resolved Problems: No resolved hospital problems. DETAILS OF HOSPITAL STAY Presenting Problem/History of Present Illness: 74 y.o. male with who presents for evaluation of GI bleeding. ??Patient reports that his symptoms started this morning when he noticed a a small amount of blood mixed in with his stool. However this progressed throughout the day such that by this evening, his stools have consisted of mostly bright red blood and clots. He has had some associated diarrhea and mild abdominal cramping, but no nausea, vomiting, fevers, or chills. ?? On further hx, the pt denies being on anticoagulation, though he takes a baby aspirin daily. He didhave a GI bleed many years ago (2014) that was thought to be related to an H. Pylori-associated ulcer. At that time, his symptoms included several days of dark, tarry stool. He did require a transfusion at that time, and he was treated appropriately with antibiotics/anti-acids for the ulcer disease. He has not had problems since, and says his last colonoscopy was about [address] scan performed 05/03/20 as part of an elective surgery workup showed diverticulosis. ?? Notably, the pt has a long hx of aortic stenosis that has been followed in Cardiology clinic. Despite its severity, he has remained largely asymptomatic. He was recently referred for pre-operative workup for possible TAVR due to his significant anxiety surrounding the condition, and its progressionover time. This is ongoing, and has so far, included the aforementioned CT scan and PFTs. He is scheduled for a cardiac catheterization tomorrow. Hospital Course: Acute GI bleeding Patient has a history of an upper GIB years ago, likely due to peptic ulcer disease from h pylori. Patient reports has not recurred. He now presents with acute onset painless bright red blood per rectum. Otherwise no symptoms. He is quite healthy at baseline. He had a CT scan performed on 05/03/20 aspart of his pre-operative workup which did show evidence of colonic diverticulosis--this seems a likely source given the sudden, brisk onset of the bleeding and absence of associated symptoms. The patient's vital signs have remained stable. His admission Hg 16.4-->14.8-->14.8. He continues tohavel bleeding this morning but otherwise largely asymptomatic. Continuing to monitor serial CBC. GI consulted here at [facility], agree with needing scope, however due to his (see below), they would recommend transferring to [facility]. Given his severe , he is high risk, anesthesia recommends having him at [facility] as well in case needing ICU/cards/surgery. Patient currently on clears. ?? Severe aortic stenosis The pt is currently undergoing pre-operative workup for severe aortic stenosis. He is largely asymptomatic, but his condition is causing him quite a lot of stress/anxiety. He was diagnosed with about 5 years ago, was monitored on serial echos. Interestingly he was actually already scheduled for a cardiac catheterization today with Dr. Torre, which will unfortunately have to be rescheduled in light of his GI bleed. Cardiology is aware, they will reschedule when able. Dr. Torre notified of transferring to [facility] as well. ?? Hyperlipidemia Continue lipitor. ?? HTN Holding home ACEi and norvasc. ?? Test Results Pending at Discharge: Pending Labs Order Current Status CBC with auto differential In process Discharge Details Physical Exam at Discharge: Discharge Condition: good Pulse: 75 Resp: 18 BP: 134/79 Temp: 36.9 ??C (98.5 ??F) Weight: 96.3 kg (212 lb 3.2 oz) Pertinent Exam Findings at Discharge: Gen: NAD, A&Ox4 HEENT: NCAT, EOMI, MMM Neck: Supple without JVD CV: RRR harsh systolic murmur Pulm: Clear to Auscultation without wheezes or crackles Abd: Soft, Non Tender, Non Distended Ext: No clubbing, cyanosis or edema. Skin: No rashes Neuro: No focal deficits, CN II-XII Grossly intact, Moving all extremities Discharge Disposition: Code Status at Discharge: full Discharge Medications: Current Medications TAKE these medications azelastine 0.15 % (205.5 mcg) spray,non-aerosol Administer 1 spray into each nostril daily clobetasoL 0.05 % external solution Apply 1 application topically 2 (two) times a day Commonly known as: TEMOVATE Lipitor 10 mg tablet Take 10 mg by mouth daily Generic drug: atorvastatin montelukast 10 mg tablet Take 10 mg by mouth nightly Commonly known as: SINGULAIR Travatan Z 0.004 % drops Administer 1 drop into both eyes nightly Generic drug: travoprost TRANSFERRING TO [facility] FOR HIGHER OF LEVEL OF CARE R OPTICS SUPERVISOR documented in this encounter Medications at [...] Disposition Code Departure Means Destination Discharge to a short term hospital for [facility] documented in this encounter Progress Notes * Nina Medina MD - 05/11/2020 9:46 AM CST Daily Progress Note Division of Hospital Medicine Name: Nathan Wagner Today: May 11, 2020 : 1945 Age: 74 y.o. male Admit: 05/10/2020 Bed: [id number] Subjective No acute events overnight. Still with bright red blood per rectum. No pain. No vital signs instability. Hg is stable 16.4-->14.8. GI to see patient. Objective Medications: Scheduled: ??? amLODIPine, 10 mg, oral, Daily ??? atorvastatin, 10 mg, oral, Daily ??? latanoprost, 1 drop, each eye, Nightly ??? lisinopriL, 5 mg, oral, Daily ??? montelukast, 10 mg, oral, Nightly Infusions: PRN: ??? acetaminophen ??? docusate sodium ??? ondansetron ODT OR ondansetron Vitals: 24hr Min/Max: Temp Min: 36.7 ??C (98.1 ??F) Max: 36.9 ??C (98.5 ??F) Pulse Min: 75 Max: 101 BP Min: 134/79 Max: 163/100 Resp Min: 18 Max: 25 SpO2 Min: 92 % Max: 98 % Most Recent: Vitals: 05/11/20 0828 BP: 134/79 Pulse: 75 Resp: 18 Temp: 36.9 ??C (98.5 ??F) SpO2: 97% Intake/Output Summary (Last 24 hours) at 05/11/2020 0947 Last data filed at 05/11/2020 0830 Gross per 24 hour Intake 0 ml Output 775 ml Net -775 ml Physical Exam Vital signs reviewed. Gen: NAD, A&Ox4 HEENT: NCAT, EOMI, MMM Neck: Supple without JVD CV: RRR harsh systolic murmur Pulm: Clear to Auscultation without wheezes or crackles Abd: Soft, Non Tender, Non Distended Ext: No clubbing, cyanosis or edema. Skin: No rashes Neuro: No focal deficits, CN II-XII Grossly intact, Moving all extremities Lab/Diagnostic Review: Recent Results (from the past 36 hour(s)) CBC with auto differential Collection Time: 05/10/20 7:19 PM Result Value Ref Range WBC 9.5 3.8 - 9.9 K/cumm Hgb 16.4 13.0 - 17.5 g/dL Hct 48.0 38.9 - 50.3 % Plt 255 150 - 400 K/cumm MPV 10.8 9.1 - 12.3 fL RBC 5.66 4.30 - 5.80 M/cumm MCV 84.8 81.3 - 96.4 fL MCH 29.0 27.1 - 33.3 pg MCHC 34.2 32.3 - 35.7 g/dL RDW CV 13.7 11.1 - 14.9 % RDW SD 42.2 35.7 - 48.1 fL NRBC abs 0.00 0.00 - 0.01 K/cumm Comprehensive metabolic panel Collection Time: 05/10/20 7:19 PM Result Value Ref Range Sodium 139 135 - 145 mmol/L Potassium, pl 3.8 3.3 - 4.9 mmol/L Chloride 102 97 - 110 mmol/L CO2 25 22 - 32 mmol/L Anion gap 12 2 - 15 mmol/L BUN 13 8 - 25 mg/dL Creatinine 1.00 0.80 - 1.30 mg/dL Glucose 115 70 - 199 mg/dL Calcium 9.5 8.5 - 10.3 mg/dL Bilirubin, total 0.7 0.1 - 1.2 mg/dL Protein, pl 7.3 6.5 - 8.5 g/dL Albumin 4.8 3.5 - 5.0 g/dL Alk phos 76 40 - 130 Units/L ALT 21 7 - 55 Units/L AST 16 10 - 50 Units/L ABO/Rh Collection Time: 05/10/20 7:19 PM Result Value Ref Range ABO/RH. A Negative Antibody screen Collection Time: 05/10/20 7:19 PM Result Value Ref Range Jasmine, indirect, Gel Interpretation Negative ABSC Differential, auto Collection Time: 05/10/20 7:19 PM Result Value Ref Range Neutrophil abs 7.3 (H) 1.7 - 6.5 K/cumm Imm gran abs 0.0 0.0 - 0.1 K/cumm Lymphocyte abs 1.1 0.8 - 3.3 K/cumm Monocyte abs 0.8 0.2 - 0.8 K/cumm Eosinophil abs 0.2 0.0 - 0.5 K/cumm Basophil abs 0.0 0.0 - 0.1 K/cumm Neutrophil pct 77.6 % Imm gran pct 0.3 % Lymphocyte pct 11.5 % Monocyte pct 8.6 % Eosinophil pct 1.6 % Basophil pct 0.4 % eGFR Collection Time: 05/10/20 7:19 PM Result Value Ref Range GFR 74 mL/min/1.73 m2 CBC with auto differential Collection [...] Value Ref Range GFR 79 mL/min/1.73 m2 I have reviewed the laboratory results. Imaging Results: CT TAVR Narrative: EXAMINATION: Heart CT and CTA abdomen and [...] No aggressive osseous lytic or blastic lesion. Impression: 1. Severe aortic valvular stenosis. 2. Aortic [...] it. Electronically signed by: Obie Ware M.D. I have independently reviewed and interpreted as above. Assessment/Plan Acute GI bleeding Assessment & Plan History suggests a lower tract source. He had a CT scan performed on 05/03 as part of his pre-operative workup which did show evidence of colonic diverticulosis--this seems a likely source given the sudden, brisk onset of the bleeding and absence of associated symptoms. Admit the patient for GI consult and evaluation. Hg 16.4-->14.8. Still bleeding this morning but otherwise largely asymptomatic. Severe aortic stenosis Assessment & Plan The pt is currently undergoing pre-operative workup for severe aortic stenosis. He is largely asymptomatic, but his condition is causing him quite a lot of stress/anxiety. He is scheduled for a cardiac catheterization today, which will unfortunately have to be rescheduled in light of his GI bleed. Cardiology is aware, they will reschedule when able. Hyperlipidemia Assessment & Plan Continue lipitor HTN (hypertension) Assessment & Plan As tolerated given DAILY Medina MD [facility] [phone] R OPTICS SUPERVISOR documented in this encounter H&P Notes * Corazon Cain MD - 05/10/2020 11:59 PM CST History and Physical Division of [facility] Medicine Name: Nathan Wagner Today: May 10, 2020 : 1945 Age: 74 y.o. male CC: bloody stool . HPI: The patient is a 74 y.o. male with who presents for evaluation of GI bleeding. Patient reports thathis symptoms started this morning when he noticed a a small amount of blood mixed in with his stool. However this progressed throughout the day such that by this evening, his stools have consisted ofmostly bright red blood and clots. He has had some associated diarrhea and mild abdominal cramping,but no nausea, vomiting, fevers, or chills. On further hx, the pt denies being on anticoagulation, though he takes a baby aspirin daily. He didhave a GI bleed many years ago (2014) that was thought to be related to an H. Pylori-associated ulcer. At that time, his symptoms included several days of dark, tarry stool. He did require a transfusion at that time, and he was treated appropriately with antibiotics/anti-acids for the ulcer disease. He has not had problems since, and says his last colonoscopy was about [address] scan performed 05/03/20 as part of an elective surgery workup showed diverticulosis. Notably, the pt has a long hx of aortic stenosis that has been followed in Cardiology clinic. Despite its severity, he has remained largely asymptomatic. He was recently referred for pre-operative workup for possible TAVR due to his significant anxiety surrounding the condition, and its progressionover time. This is ongoing, and has so far, included the aforementioned CT scan and PFTs. He is scheduled for a cardiac catheterization tomorrow. Past Medical History: Diagnosis Date ??? H pylori ulcer ??? History of blood transfusion ??? HTN (hypertension) ??? Severe aortic stenosis with a mean gradient 42 mm Hg and EF 55% ??? Sinus disease mild History reviewed. No pertinent surgical history. No Known Allergies Social History Tobacco Use ??? Smoking status: Never Smoker ??? Smokeless tobacco: Never Used Substance Use Topics ??? Alcohol use: Not on file Family History Problem Relation Age of Onset ??? Heart disease Brother ??? Cancer Mother ??? Hypertension Mother ??? Hypertension Brother Patient's Medications New Prescriptions No medications on file Previous Medications AMLODIPINE (NORVASC) 10 MG TABLET Take 1 tablet by mouth daily Authorizing Provider: Yasmeen Rodriguez MD Notes: -- ASPIRIN 81 MG TABLET Take 81 mg by mouth daily Authorizing Provider: Yasmeen Rodriguez MD Notes: -- ATORVASTATIN (LIPITOR) 10 MG TABLET Take 10 mg by mouth daily Authorizing Provider: Yasmeen Rodriguez MD Notes: -- AZELASTINE 0.15 % (205.5 MCG) SPRAY,NON-AEROSOL Administer 1 spray into each nostril daily Authorizing Provider: Yasmeen Rodriguez MD Notes: -- BENAZEPRIL (LOTENSIN) 5 MG TABLET Take 5 mg by mouth daily Authorizing Provider: Yasmeen Rodriguez MD Notes: -- CLOBETASOL (TEMOVATE) 0.05 % EXTERNAL SOLUTION Apply 1 application topically 2 (two) times a day Authorizing Provider: Yasmeen Rodriguez MD Notes: -- MONTELUKAST (SINGULAIR) 10 MG TABLET Take 10 mg by mouth nightly Authorizing Provider: Yasmeen Rodriguez MD Notes: -- TRAVOPROST (TRAVATAN Z) 0.004 % DROPS Administer 1 drop into both eyes nightly Authorizing Provider: Yasmeen Rodriguez MD Notes: -- Modified Medications No medications on file Discontinued Medications METHYLPREDNISOLONE (MEDROL DOSEPACK) 4 MG DOSEPACK Authorizing Provider: Yasmeen Rodriguez MD Notes: -- Review of Systems Review of Systems Constitutional: Negative for chills and fever. Respiratory: Negative. Gastrointestinal: Positive for blood in stool and melena. All other systems reviewed and are negative. Objective Vitals: 24hr Min/Max: Temp Min: 36.7 ??C (98.1 ??F) Max: 36.7 ??C (98.1 ??F) Pulse Min: 75 Max: 101 BP Min: 134/81 Max: 163/100 Resp Min: 18 Max: 25 SpO2 Min: 92 % Max: 97 % Physical Exam: Constitutional: NAD, well developed, well nourished. Eyes: PERRL, EOMI, anicteric. ENT: NCAT. Oropharynx normal, moist mucus membranes. Lungs: Breathing unlabored. CTA Cardiovascular: RRR GI: Soft, non-tender, non-distended, bowel sounds positive, no organomegaly. Skin: No new rashes, lesions or bruises Extremities: Normal without edema or cyanosis Lymph: No cervical, supraclavicular, axillary or inguinal adenopathy Neurologic: AOx4, CNII-XII intact, normal strength and sensation. Normal gait. Up walking around the room Psychiatric: Normal affect and mood. Lab/Radiology/Diagnostic Review: Result Value WBC 9.5 Hgb 16.4 Hct 48.0 Plt 255 Result Value Sodium 139 Potassium, pl 3.8 Chloride 102 CO2 25 Anion gap 12 BUN 13 Creatinine 1.00 Glucose 115 Calcium 9.5 Bilirubin, total 0.7 Protein, pl 7.3 Albumin 4.8 Alk phos 76 ALT 21 AST 16 Result Value ABO/RH. A Negative Result Value Imaging Results: CT TAVR Impression: 1. Severe aortic valvular stenosis. 2. Aortic annulus, and abdominal aortic, common iliac, external iliac and femoral artery measurements in preparation for TAVR procedure as described above. 2. Bilateral subcentimeter solid and groundglass pulmonary nodules. Follow-up CT scan in one year is recommended. Recommend follow up of the Incidental lung nodule Additional Imaging In [address] A/P - 74 yo male with a hx of severe aortic stenosis and previously treated H pylori-associated ulcers who presents with BRPBR. Acute GI bleeding Assessment & Plan History suggests a lower tract source. He had a CT scan performed on 05/03 as part of his pre-operative workup which did show evidence of colonic diverticulosis--this seems a likely source given the sudden, brisk onset of the bleeding and absence of associated symptoms. Will admit the patient for GI consult and evaluation. Will perform serial CBCs and order a bowel prep to begin tomorrow evening. Clear liquid diet for now. Hgb is currently stable at >16. Hyperlipidemia Assessment & Plan Continue lipitor HTN (hypertension) Assessment & Plan Continue home meds Severe aortic stenosis Assessment & Plan The pt is currently undergoing pre-operative workup for severe aortic stenosis. He is largely asymptomatic, but his condition is causing him quite a lot of stress/anxiety. He is scheduled for a cardiac catheterization tomorrow morning, which will unfortunately have to be rescheduled in light of hisGI bleed. The ED physician has messaged Dr. Trore (Cardiology) to let him know. R OPTICS SUPERVISOR documented in this encounter Consult Notes * Thom Leo MD - 05/11/2020 8:43 AM CSTAssociated Order(s): IP CONSULT TO GASTROENTEROLOGY General GI Initial Consult Chief complaint: GIB Reason for consult: gib HPI:This is a 74 y.o. male with pmh severe aortic stenosis, hypertension, history of GI bleed thought to be secondary to an H pylori induced ulcer, known diverticulosiswho presents for evaluation of GI bleeding. Patient reports having BRBPR starting yesterday. He had a total of 6 BM . He had an associated lower abdominal pain . Denies dysphagia, odynophagia, abdominal pain , NSAIDS, N&V, fever fatigue orweight loss. He had a CT scan 05/03 showing diverticulosis. Of note, patient had an H.pylori induced gastric ulcer 5 years ago in which he underwent an EGD reportedly. His last colonoscopy was 5 years ago with polyps found. He is followed by cardiology for a work up of severe . His TTE 10/2019 shows a mean gradient of 51 and an AV area of 0.5. He was planned for a cardiac cath today , but that was cancelled due to his GI bleed. ?? Labs show HGB 14.8 from 16.4 (05/10) , PLT 242 with otherwise unremarkable labs. Past Medical History: Diagnosis Date ??? H pylori ulcer with bleeding in 2014 ??? History of blood transfusion 2014 ??? HTN (hypertension) ??? Hyperlipidemia ??? Severe aortic stenosis with a mean gradient 42 mm Hg and EF 55% ??? Sinus disease mild History reviewed. No pertinent surgical history. Medications Prior to Admission Medication Sig Dispense Refill Last Dose ??? amLODIPine (NORVASC) 10 mg tablet Take 1 tablet by mouth daily 05/10/2020 at Unknown time ??? aspirin 81 mg tablet Take 81 mg by mouth daily 05/10/2020 at Unknown time ??? atorvastatin (LIPITOR) 10 mg tablet Take 10 mg by mouth daily 05/10/2020 at Unknown time ??? azelastine 0.15 % (205.5 mcg) spray,non-aerosol Administer 1 spray into each nostril daily PastWeek at Unknown time ??? benazepril (LOTENSIN) 5 mg tablet Take 5 mg by mouth daily 05/10/2020 at Unknown time ??? clobetasol (TEMOVATE) 0.05 % external solution Apply 1 application topically 2 (two) times a day More than a month at Unknown time ??? montelukast (SINGULAIR) 10 mg tablet Take 10 mg by mouth nightly Past Week at Unknown time ??? travoprost (TRAVATAN Z) 0.004 % drops Administer 1 drop into both eyes nightly Past Week at Unknown time No Known Allergies Social History Tobacco Use ??? Smoking status: Never Smoker ??? Smokeless tobacco: Never Used Substance Use Topics ??? Alcohol use: Not on file ??? Drug use: Not on file Family History Problem Relation Age of Onset ??? Heart disease Brother ??? Cancer Mother ??? Hypertension Mother ??? Hypertension Brother Social History Socioeconomic History ??? Marital status: Spouse name: Not on file ??? Number of children: Not on file ??? Years of education: Not on file ??? Highest education level: Not on file Occupational History ??? Not on file Social Needs ??? Financial resource strain: Not on file ??? Food insecurity Worry: Not on file Inability: Not on file ??? Transportation needs Medical: Not on file Non-medical: Not on file Tobacco Use ??? Smoking status: Never Smoker ??? Smokeless tobacco: Never Used Substance and Sexual Activity ??? Alcohol use: Not on file ??? Drug use: Not on file ??? Sexual activity: Not on file Lifestyle ??? Physical activity Days per week: Not on file Minutes per session: Not on file ??? Stress: Not on file Relationships ??? Social connections Talks on phone: Not on file Gets together: Not on file Attends yazidi service: Not on file Active member of club or organization: Not on file Attends meetings of clubs or organizations: Not on file Relationship status: Not on file ??? Intimate partner violence Fear of current or ex partner: Not on file Emotionally abused: Not on file Physically abused: Not on file Forced sexual activity: Not on file Other Topics Concern ??? Not on file Social History Narrative Occasional alcohol use : (Added by [employer]) Review of Systems: Review of systems per HPI and otherwise all other systems are negative Vitals: 24hr Min/Max: Temp Min: 36.7 ??C (98.1 ??F) Max: 36.9 ??C (98.5 ??F) Pulse Min: 75 Max: 101 BP Min: 134/79 Max: 163/100 Resp Min: 18 Max: 25 SpO2 Min: 92 % Max: 98 % Most Recent : Vitals: 05/11/20 0828 BP: 134/79 Pulse: 75 Resp: 18 Temp: 36.9 ??C (98.5 ??F) SpO2: 97% I/O last 2 completed shifts: In: 0 Out: 475 [Urine:375; Stool:100] I/O this shift: In: 0 Out: 300 [Urine:200; Stool:100] Objective Physical Exam: General Appearance: Alert, cooperative, no distress, appears stated age, well developed, well nourished Head: Normocephalic, without obvious abnormality, atraumatic Eyes: PERRL, conjunctiva/corneas clear, EOM's intact, both eyes, anicteric Ears: Normal TM's and external ear canals, both ears Nose: Nares normal, septum midline, mucosa normal, no drainage or sinus tenderness Throat: Lips, mucosa, and tongue normal; teeth and gums normal, mucous membranes moist Neck: Supple, symmetrical, trachea midline, no adenopathy; thyroid: No enlargement/tenderness/nodules; no carotid bruit or JVD Back: Symmetric, no curvature, ROM normal, no CVA tenderness Lungs: Clear to auscultation bilaterally, respirations unlabored Cardiovascular: Regular rate and rhythm, S1 and S2 normal, no murmur, rub or gallop, no edema, pulses 2+ and symmetric to all extremities Abdomen: Soft, non-tender, bowel sounds active all four quadrants, no masses, no organomegaly, non-distended Extremities: Extremities normal, atraumatic, no cyanosis, no clubbing Skin: Skin color, texture, turgor normal, no rashes, lesions or bruising Lymph nodes: Cervical, supraclavicular, and axillary nodes normal Neurologic: Alert & oriented x 4, CNII-XII intact. Normal strength, sensation and reflexes throughout Psychosocial: Normal affect and mood Lab/Radiology/Diagnostic Review: Assessment/Plan This is a 74 y.o. male with pmh severe aortic stenosis, hypertension, history of GI bleed thought to be secondary to an H pylori induced ulcer, known diverticulosiswho presents for evaluation of GI bleeding. 1- Gi bleeding : He likely has a lower GI bleed. His source is most likely a diverticular bleed . The differential diagnosis includes: infectious colitis, ischemic colitis, inflammatory bowel disease, angiodysplasia and hemorrhoidal bleeding. AVM is less likely. He will require a colonosocpy, although he is a high risk with severe . I have spoken to anasthesia in which they recommended to transfer him downtown if the procedure needs to be done, as their ICU is well equipped. Plan: - transfer downtown for a colonosocpy with anasthesia evaluation. Recommendations are not final until staffed with an attending We will continue to follow-up with you. Thank you for involving us in the care of this patient. If you have any questions, please call the [facility] GI phone during weekdays or the [facility] GI phone during after hours and weekends. Thom Leo MD Gastroenterology Fellow Cosigned by Zoe Lynn MD at 05/11/2020 4:05 PM FIBER OPTICS SUPERVISOR R OPTICS SUPERVISOR R OPTICS SUPERVISOR Associated attestation - Zoe Lynn MD - 05/11/2020 4:05 PM FIBER OPTICS SUPERVISOR I have seen and examined the patient on 05/11/20. I agree with the findings and plan of care as documented in the resident's/fellow's note.. documented in this encounter Nursing Notes * Heather Garcia RN - 05/11/2020 7:38 PM CST Pt informed of decision to transfer to [facility]. Report given to TREV Miller at [facility] [id number]. Pt resting comfortably in bed at this time. Awaiting ambulance for transfer. R OPTICS SUPERVISOR * Viridiana Rebolledo RN - 05/11/2020 6:31 PM CST Pt will transfer to [facility] room 5572A. The number to call report is [phone]. 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 Medina, this will be a BLS ambulance ride. Transfer paperwork is in pt's paper chart. Pt is transferring to higher level of care for access to cullet crusher during anesthesia. Dr. Medina aware of transfer time. R OPTICS SUPERVISOR documented in this encounter ED Notes * Jones Dickson MD - 05/11/2020 12:08 AM CST History Chief Complaint Rectal Bleeding HPI Nathan Wagner is a 74 y.o. male with a past medical history of severe aortic stenosis, hypertension, history of GI bleed thought to be secondary to an H pylori induced ulcer, known diverticulosis who presents for evaluation of GI bleeding. Patient reports that his symptoms started this morning. Initially with a small amount of blood mixed in stool, seem more clearly blood. Throughout the day with recurrent diarrheal stools. Now more recently with 2 stools that are mostly blood and clot. Some mild abdominal cramping right before having a bowel movement otherwise no pain. No nausea vomiting. No fever. He is not on anticoagulation but does take a daily aspirin. Last colonoscopy was 5 years ago. Is due to have off cardiac catheterization tomorrow in preparation for aortic stenosis repair. Contacted his primary care team who recommended he come in for evaluation Past Medical History: Diagnosis Date ??? H pylori ulcer with bleeding in 2014 ??? History of blood transfusion 2014 ??? HTN (hypertension) ??? Hyperlipidemia ??? Severe aortic stenosis with a mean gradient 42 mm Hg and EF 55% ??? Sinus disease mild History reviewed. No pertinent surgical history. No current facility-administered medications for this encounter. Current Outpatient Medications: ??? amLODIPine (NORVASC) 10 mg tablet, Take 1 tablet by mouth daily , Disp: , Rfl: ??? aspirin 81 mg tablet, Take 81 mg by mouth daily , Disp: , Rfl: ??? atorvastatin (LIPITOR) 10 mg tablet, Take 10 mg by mouth daily , Disp: , Rfl: ??? azelastine 0.15 % (205.5 mcg) spray,non-aerosol, Administer 1 spray into each nostril daily , Disp: , Rfl: ??? benazepril (LOTENSIN) 5 mg tablet, Take 5 mg by mouth daily , Disp: , Rfl: ??? clobetasol (TEMOVATE) 0.05 % external solution, Apply 1 application topically 2 (two) times a day , Disp: , Rfl: ??? montelukast (SINGULAIR) 10 mg tablet, Take 10 mg by mouth nightly , Disp: , Rfl: ??? travoprost (TRAVATAN Z) 0.004 % drops, Administer 1 drop into both eyes nightly , Disp: , Rfl: Allergies Patient has no known allergies. Family History Problem Relation Age of Onset ??? Heart disease Brother ??? Cancer Mother ??? Hypertension Mother ??? Hypertension Brother Social History Tobacco Use ??? Smoking status: Never Smoker ??? Smokeless tobacco: Never Used Substance Use Topics ??? Alcohol use: Not on file ??? Drug use: Not on file Review of Systems Constitutional: Negative for fever, weight change Eyes: Negative for visual changes. ENT: Negative for sore throat. Cardiovascular: Negative for chest pain. Respiratory: Negative for shortness of breath. Gastrointestinal: Positive for GI cramping GI bleed Genitourinary: Negative for dysuria, hematuria Musculoskeletal: Negative for back pain. Skin: Negative for rash. Neurological: Negative for headaches, focal weakness or numbness. ? Physical Exam VITAL SIGNS: ED Triage Vitals [05/10/201912] Temp Pulse Resp BP SpO2 36.7 ??C (98.1 ??F) 101 18 163/100 97 % Temp src Heart Rate Source Patient Position BP Location FiO2 (%) -- -- -- -- -- Constitutional: Alert and oriented. Well appearing and in no distress. Eyes: Conjunctivae are normal. PERRL Head: Normocephalic and atraumatic. ENT Nose: No congestion. No rhinorrhea Mouth/Throat: Mucous membranes are moist. No lesions in oropharynx Neck: No stridor. Cardiovascular: Normal rate, regular rhythm. + murmurs. Normal and symmetric distal pulses are present in all extremities. Respiratory: Normal respiratory effort and expansion, lungs clear to auscultation bilaterally no wheeze or crackle Gastrointestinal: Hyperactive bowel sounds Soft and nontender. No rebound or guarding. There is no CVA tenderness. Musculoskeletal: Nontender with normal range of motion in all extremities. No effusions. Neurologic: Normal speech and language. No gross focal neurologic deficits are appreciated. Skin: Skin is warm, dry and intact. No rash noted. Psychiatric: Mood and affect are normal. Speech and behavior are normal. ? Procedures Procedure(s) performed: None. ED Clinical Impression 1. Gastrointestinal hemorrhage, unspecified gastrointestinal hemorrhage type Initial Impression, ED Course, Assessment and Plan Impression: 74 y.o. male with aforementioned history presents for evaluation of acute onset GI bleed today a concerning for potential diverticular bleed, less likely Loera upper GI bleed, mass. He isincidentally due for further workup for potential TAVR with cardiac catheterization tomorrow. He iscurrently hemodynamically stable. Labs completed in triage reveal a hemoglobin of 16. Will plan to monitor for. If time to evaluate bowel movements and should they be S frankly bloody as he suggest, likely plan for admission with colonoscopy. Patient is agreeable. ED Course as of May 11 12 Time: 05/11 12 Comment: During his time., patient remains hemodynamically stable however has had 2 additional bowel movements that are frankly bloody with clot. Dark in color not bright red. Given persistent GI bleeding discussed with GI who are okay with admission with plan to repeat scope. Hospitalist okay withadmission as well. Will plan to send a message to his cullet crusher given needed catheterization andlikely delay and the event of acute GI bleed. Will plan to do serial CBCs as well By: Jones Dickson MD ? Time seen: 05/11/2020 12:08 AM ? Pertinent labs & imaging results that were available during my care of the patient were reviewed by me and considered in my medical decision making (see chart for details). Documentation was completed with [employer] software. Jones Dickson MD 05/11/20 0013 R OPTICS SUPERVISOR * Diandra Hernandez RN - 05/10/2020 7:11 PM CST Pt reports blood per rectum today. First one or two had stool, now he feels the urge to have a BM and it is all blood with clots. Hx of Hpylori and multiple transfusions in the past. Pt was due to have a heart cath tomorrow, pt CT last week showed diverticulitis. R OPTICS SUPERVISOR documented in this encounter Miscellaneous Notes * Plan of Care - Heather Garcia RN - 05/11/2020 7:53 PM CST Goals: pt transfer to [facility]. Clinical Goals for the Shift: transfer to [facility] Summary: Problem: Health Behavior: Goal: Understanding of discharge needs will improve Outcome: Adequate for Discharge Problem: Bowel/Gastric: Goal: Will show no signs and symptoms of gastrointestinal bleeding Outcome: Adequate for Discharge Problem: Cognitive: Goal: Verbalization of understanding the information provided will improve Outcome: Adequate for Discharge Problem: Fluid Volume: Goal: Ability to maintain a balanced intake and output will improve Outcome: Adequate for Discharge Goal: Will show no signs and symptoms of excessive bleeding Outcome: Adequate for Discharge Problem: Physical Regulation: Goal: Diagnostic test results will improve Outcome: Adequate for Discharge Goal: Complications related to the disease process, condition or treatment will be avoided or minimized Outcome: Adequate for Discharge Problem: Sensory: Goal: Pain level will decrease Outcome: Adequate for Discharge R OPTICS SUPERVISOR * Plan of Care - Elisabeth Cortes RN - 05/11/2020 11:37 AM CST Report per DCA: Plan of care was discussed with the Multidisciplinary Team in [facility] today. Impression/problem: Acute lower GIB, Severe aortic stenosis Plan: Monitor labs Goals: Home with no needs Referrals: GI Support: Family Transportation: Family F/U Appointment: Cardiology for rescheduled cardiac cath to assess for TAVR ADD: Unknown at this time Case Management will follow for planning and referrals as needed. R OPTICS SUPERVISOR * Plan of Care - Heather Garcia RN - 05/11/2020 2:21 AM CST Goals: admission to inpatient unit (3100), monitor stools, serial cbc to monitor blood levels, emotional support, assist as needed, rest Clinical Goals for the Shift: monitor stools, CL diet, safety measures, labs Summary: Problem: Health Behavior: Goal: Understanding of discharge needs will improve 05/11/2020220 by Heather Garcia RN Outcome: Progressing 05/11/2020220 by Heather Garcia RN Outcome: Progressing Problem: Bowel/Gastric: Goal: Will show no signs and symptoms of gastrointestinal bleeding Outcome: Progressing Problem: Cognitive: Goal: Verbalization of understanding the information provided will improve Outcome: Progressing Problem: Fluid Volume: Goal: Ability to maintain a balanced intake and output will improve Outcome: Progressing Goal: Will show no signs and symptoms of excessive bleeding Outcome: Progressing Problem: Physical Regulation: Goal: Diagnostic test results will improve Outcome: Progressing Goal: Complications related to the disease process, condition or treatment will be avoided or minimized Outcome: Progressing Problem: Sensory: Goal: Pain level will decrease Outcome: Progressing R OPTICS SUPERVISOR * Assessment & Plan Note - Corazon Cain MD - 05/11/2020 12:15 AM CSTAssociated Problem(s): HLD (hyperlipidemia) Continue lipitor R OPTICS SUPERVISOR * Assessment & Plan Note - Nina Medina MD - 05/11/2020 12:09 AM FIBER OPTICS SUPERVISOR Associated Problem(s): Acute GI bleeding History suggests a lower tract source. He had a CT scan performed on 05/03 as part of his pre-operative workup which did show evidence of colonic diverticulosis--this seems a likely source given the sudden, brisk onset of the bleeding and absence of associated symptoms. Admit the patient for GI consult and evaluation. Hg 16.4-->14.8. Still bleeding this morning but otherwise largely asymptomatic. R OPTICS SUPERVISOR R OPTICS SUPERVISOR R OPTICS SUPERVISOR * Assessment & Plan Note - Nina Medina MD - 05/11/2020 12:09 AM FIBER OPTICS SUPERVISOR Associated Problem(s): Hypertension, essential As tolerated given GIB R OPTICS SUPERVISOR R OPTICS SUPERVISOR * Assessment & Plan Note - Nina Medina MD - 05/11/2020 12:08 AM FIBER OPTICS SUPERVISOR Associated Problem(s): Severe aortic stenosis The pt is currently undergoing pre-operative workup for severe aortic stenosis. He is largely asymptomatic, but his condition is causing him quite a lot of stress/anxiety. He is scheduled for a cardiac catheterization today, which will unfortunately have to be rescheduled in light of his GI bleed. Cardiology is aware, they will reschedule when able. R OPTICS SUPERVISOR R OPTICS SUPERVISOR documented in this encounter Plan of Treatment Not on file documented as of this encounter Procedures Procedure Name Priority Date/Time Associated Diagnosis Comments DIFFERENTIAL AUTO Timed 05/11/2020 11: 09 AM FIBER OPTICS SUPERVISOR CBC WITH AUTO DIFFERENTIAL Timed 05/11/2020 11:09 AM FIBER OPTICS SUPERVISOR EGFR Routine 05/11/2020 5:09 AM FIBER OPTICS SUPERVISOR BASIC METABOLIC PANEL Routine 05/11/2020 5:09 AM FIBER OPTICS SUPERVISOR B ABO / RH CONFIRMATION TESTING STAT 05/11/2020 1:37 AM FIBER OPTICS SUPERVISOR DIFFERENTIAL AUTO STAT 05/11/2020 1:3 2 AM FIBER OPTICS SUPERVISOR CBC WITH AUTO DIFFERENTIAL STAT 05/11/2020 1:32 AM FIBER OPTICS SUPERVISOR EGFR STAT 05/10/2020 7:19 PM FIBER OPTICS SUPERVISOR DIFFERENTIAL AUTO STAT 05/10/2020 7:1 9 PM FIBER OPTICS SUPERVISOR CBC WITH AUTO DIFFERENTIAL STAT 05/10/2020 7:19 PM FIBER OPTICS SUPERVISOR ABO/RH STAT 05/10/2020 7:19 PM FIBER OPTICS SUPERVISOR ANTIBODY SCREEN STAT 05/10/2020 7:19 PM FIBER OPTICS SUPERVISOR TYPE AND SCREEN STAT 05/10/2020 7:19 PM FIBER OPTICS SUPERVISOR COMPREHENSIVE METABOLIC PANEL STAT 05/10/2020 7:19 PM FIBER OPTICS SUPERVISOR documented in this encounter Results * Differential, auto (05/11/2020 11:09 AM FIBER OPTICS SUPERVISOR) Neutrophil abs 6.0 1.7 - 6.5 K/cumm [facility] Imm gran abs 0.0 0.0 - 0.1 K/cumm [facility] Lymphocyte abs 0.8 0.8 - 3.3 K/cumm [facility] Monocyte abs 0.7 0.2 - 0.8 K/cumm [facility] Eosinophil abs 0.1 0.0 - 0.5 K/cumm [facility] Basophil abs 0.0 0.0 - 0.1 K/cumm [facility] Neutrophil pct 77.8 % [facility] Comment: Interpretive Data Percent cell count reference ranges are not reported, since discordance with absolute values may lead to misinterpretation of CBC data. Current Interpretive Data was last revised on 2017. Imm gran pct 0.3 % [facility] Comment: Interpretive Data Percent cell count reference ranges are not reported, since discordance with absolute values may lead to misinterpretation of CBC data. Current Interpretive Data was last revised on 2017. Lymphocyte pct 10.9 % [facility] Comment: Interpretive Data Percent cell count reference ranges are not reported, since discordance with absolute values may lead to misinterpretation of CBC data. Current Interpretive Data was last revised on 2017. Monocyte pct 8.9 % [facility] Comment: Interpretive Data Percent cell count reference ranges are not reported, since discordance with absolute values may lead to misinterpretation of CBC data. Current Interpretive Data was last revised on 2017. Eosinophil pct 1.6 % [facility] Comment: Interpretive Data Percent cell count reference ranges are not reported, since discordance with absolute values may lead to misinterpretation of CBC data. Current Interpretive Data was last revised on 2017. Basophil pct 0.5 % [facility] Comment: Interpretive Data Percent cell count reference ranges are not reported, since discordance with absolute values may lead to misinterpretation of CBC data. Current Interpretive Data was last revised on 2017. Blood specimen (specimen) 05/11/2020 11:09 AM FIBER OPTICS SUPERVISOR 05/11/2020 11:09 AM FIBER OPTICS SUPERVISOR us Nina Alejo MD LAB BLOOD ORDERABLES Final Result [facility] [id number] [facility] [place] [address] * CBC with auto differential (05/11/2020 11:09 AM FIBER OPTICS SUPERVISOR) [facility] WBC 7.6 3.8 - 9.9 K/cumm [facility] Hgb 14.8 13.0 - 17.5 g/dL [facility] Hct 44.7 38.9 - 50.3 % [facility] Plt 247 150 - 400 K/cumm [facility] MPV 11.1 9.1 - 12.3 fL [facility] RBC 5.17 4.30 - 5.80 M/cumm [facility] MCV 86.5 81.3 - 96.4 fL [facility] MCH 28.6 27.1 - 33.3 pg [facility] MCHC 33.1 32.3 - 35.7 g/dL [facility] RDW CV 13.5 11.1 - 14.9 % [facility] RDW SD 43.3 35.7 - 48.1 fL [facility] NRBC abs 0.00 0.00 - 0.01 K/cumm [facility] Blood specimen (specimen) 05/11/2020 11:09 AM FIBER OPTICS SUPERVISOR 05/11/2020 11:09 AM FIBER OPTICS SUPERVISOR Nnia Alejo MD LAB BLOOD ORDERABLES Final Result Performing Organization Address City/State/[facility] Phone Number [facility] [id number] [facility]. [place] [address] * eGFR (05/11/2020 5:09 AM FIBER OPTICS SUPERVISOR) [facility] eGFR 79 mL/min/1.7 3 m2 [facility] Comment: Interpretive Data Reference Interval Normal ?>/= [...] 70. Current interpretive data was last reviewed 2020 Blood specimen (specimen) 05/11/2020 5:09 AM FIBER OPTICS SUPERVISOR 05/11/2020 5:20 AM FIBER OPTICS SUPERVISOR Corazon Cain MD LAB BLOOD ORDERABLES Final Result [facility] [id number] [facility]. Department of Laboratories [place], [place] [id number] * Basic metabolic panel (05/11/2020 5:09 AM FIBER OPTICS SUPERVISOR) Sodium 140 135 - 145 mmol/L [facility] Potassium, pl 3.7 3.3 - 4.9 mmol/L [facility] Chloride 105 97 - 110 mmol/L [facility] CO2 24 22 - 32 mmol/L [facility] Anion gap 11 2 - 15 mmol/L [facility] BUN 13 8 - 25 mg/dL [facility] Creatinine 0.95 0.80 - 1.30 mg/dL [facility] Glucose 130 70 - 199 mg/dL [facility] Comment: Interpretive Data Fasting glucose >/= 126 [...] 2017. Calcium 9.1 8.5 - 10.3 mg/dL [facility] Blood specimen (specimen) 05/11/2020 5:09 AM FIBER OPTICS SUPERVISOR 05/11/2020 5:20 AM FIBER OPTICS SUPERVISOR Corazon Cain MD LAB BLOOD ORDERABLES Final Result Performing Organization Address City/[facility]/ZIP Co de Phone Number [facility] [id number] [address] [email or web address] [address] * ABO / Rh Confirmation Testing (05/11/2020 1:37 AM FIBER OPTICS SUPERVISOR) ABO/Rh Confirmation A Negative [facility] Blood specimen (specimen) 05/11/2020 1:37 AM FIBER OPTICS SUPERVISOR 05/11/2020 1:40 AM FIBER OPTICS SUPERVISOR Jones Dickson MD LAB BLOOD ORDERABLES Fin al Result Performing Organization Address [facility] Co de Phone Number [facility] [phone] [employer] [place] [address] * Differential, auto (05/11/2020 1:32 AM FIBER OPTICS SUPERVISOR) Neutrophil abs 6.4 1.7 - 6.5 K/cumm [facility] Imm gran abs 0.0 0.0 - 0.1 K/cumm [facility] Lymphocyte abs 1.0 0.8 - 3.3 K/cumm [facility] Monocyte abs 0.8 0.2 - 0.8 K/cumm [facility] Eosinophil abs 0.2 0.0 - 0.5 K/cumm [facility] Basophil abs 0.1 0.0 - 0.1 K/cumm [facility] Neutrophil pct 76.3 % [facility] Comment: Interpretive Data Percent cell count reference ranges are not reported, since discordance with absolute values may lead to misinterpretation of CBC data. Current Interpretive Data was last revised on 2017. Imm gran pct 0.5 % [facility] Comment: Interpretive Data Percent cell count reference ranges are not reported, since discordance with absolute values may lead to misinterpretation of CBC data. Current Interpretive Data was last revised on 2017. Lymphocyte pct 11.7 % [facility] Comment: Interpretive Data Percent cell count reference ranges are not reported, since discordance with absolute values may lead to misinterpretation of CBC data. Current Interpretive Data was last revised on 2017. Monocyte pct 8.9 % [facility] Comment: Interpretive Data Percent cell count reference ranges are not reported, since discordance with absolute values may lead to misinterpretation of CBC data. Current Interpretive Data was last revised on 2017. Eosinophil pct 2.0 % [facility] Comment: Interpretive Data Percent cell count reference ranges are not reported, since discordance with absolute values may lead to misinterpretation of CBC data. Current Interpretive Data was last revised on 2017. Basophil pct 0.6 % [facility] Comment: Interpretive Data Percent cell count reference ranges are not reported, since discordance with absolute values may lead to misinterpretation of CBC data. Current Interpretive Data was last revised on 2017. Blood specimen (specimen) 05/11/2020 1:32 AM FIBER OPTICS SUPERVISOR 05/11/2020 1:41 AM FIBER OPTICS SUPERVISOR us Jones Dickson MD LAB BLOOD ORDERABLES Fin al Result [facility] [id number] [facility]. [place] [employer] [place] [address] * CBC with auto differential (05/11/2020 1:32 AM FIBER OPTICS SUPERVISOR) WBC 8.4 3.8 - 9.9 K/cumm [facility] Hgb 14.8 13.0 - 17.5 g/dL [facility] Hct 43.8 38.9 - 50.3 % [facility] Plt 242 150 - 400 K/cumm [facility] MPV 10.9 9.1 - 12.3 fL [facility] RBC 5.14 4.30 - 5.80 M/cumm [facility] MCV 85.2 81.3 - 96.4 fL [facility] MCH 28.8 27.1 - 33.3 pg [facility] MCHC 33.8 32.3 - 35.7 g/dL [facility] RDW CV 13.7 11.1 - 14.9 % [facility] RDW SD 42.7 35.7 - 48.1 fL [facility] NRBC abs 0.00 0.00 - 0.01 K/cumm [facility] Blood specimen (specimen) 05/11/2020 1:32 AM FIBER OPTICS SUPERVISOR 05/11/2020 1:41 AM FIBER OPTICS SUPERVISOR Corazon Cain MD LAB BLOOD ORDERABLES Final Result [facility] [address] [place] [address] * eGFR (05/10/2020 7:19 PM FIBER OPTICS SUPERVISOR) eGFR 74 mL/min/1.7 3 m2 [facility] [...] 70. Current interpretive data was last reviewed 2020 Blood specimen (specimen) 05/10/2020 7:19 PM FIBER OPTICS SUPERVISOR 05/10/2020 7:24 PM FIBER OPTICS SUPERVISOR us oJnes Dickson MD LAB BLOOD ORDERABLES Fin al Result [facility] [id number] [facility]. [place] [address] * (ABNORMAL) Differential, auto (05/10/2020 7:19 PM FIBER OPTICS SUPERVISOR) Neutrophil abs 7.3(H) 1.7 - 6.5 K/cumm [facility] Imm gran abs 0.0 0.0 - 0.1 K/cumm [facility] Lymphocyte abs 1.1 0.8 - 3.3 K/cumm [facility] Monocyte abs 0.8 0.2 - 0.8 K/cumm [facility] Eosinophil abs 0.2 0.0 - 0.5 K/cumm [facility] Basophil abs 0.0 0.0 - 0.1 K/cumm [facility] Neutrophil pct 77.6 % [facility] Comment: Interpretive Data Percent cell count reference ranges are not reported, since discordance with absolute values may lead to misinterpretation of CBC data. Current Interpretive Data was last revised on 2017. Imm gran pct 0.3 % [facility] Comment: Interpretive Data Percent cell count reference ranges are not reported, since discordance with absolute values may lead to misinterpretation of CBC data. Current Interpretive Data was last revised on 2017. Lymphocyte pct 11.5 % [facility] Comment: Interpretive Data Percent cell count reference ranges are not reported, since discordance with absolute values may lead to misinterpretation of CBC data. Current Interpretive Data was last revised on 2017. Monocyte pct 8.6 % [facility] Comment: Interpretive Data Percent cell count reference ranges are not reported, since discordance with absolute values may lead to misinterpretation of CBC data. Current Interpretive Data was last revised on 2017. Eosinophil pct 1.6 % [facility] Comment: Interpretive Data Percent cell count reference ranges are not reported, since discordance with absolute values may lead to misinterpretation of CBC data. Current Interpretive Data was last revised on 2017. Basophil pct 0.4 % [facility] Comment: Interpretive Data Percent cell count reference ranges are not reported, since discordance with absolute values may lead to misinterpretation of CBC data. Current Interpretive Data was last revised on 2017. Blood specimen (specimen) 05/10/2020 7:19 PM [employer] SUPERVISOR 05/10/2020 7:24 PM [employer] SUPERVISOR Jones Dickson MD LAB BLOOD ORDERABLES Fin al Result Performing Organization Address City/[facility]/ZIP Co de Phone Number [facility] [id number] [employer] [facility] [place] [address] * Antibody screen (05/10/2020 7:19 PM [employer] SUPERVISOR) Jasmine, indirect, Gel Interpretation Negative ABSC DANA BIRCH Blood specimen (specimen) 05/10/2020 7:19 PM [employer] SUPERVISOR 05/10/2020 7:24 PM [employer] SUPERVISOR Narrative DANA ARANDA - 05/10/2020 8:08 PM [employer] SUPERVISOR Has the patient had Daratumumab or Isatuximab in the past 6 months?->Unknown Jones Dickson MD LAB BLOOD BANK TEST ORDE RABLES Final Result [facility] [id number] [employer] [facility] [employer] [place], [place] [id number] * ABO/Rh (05/10/2020 7:19 PM [employer] SUPERVISOR) ABO/Rh A Negative [facility] Blood specimen (specimen) 05/10/2020 7:19 PM [employer] SUPERVISOR 05/10/2020 7:24 PM [employer] SUPERVISOR Narrative DANA MEDEIROSWCH - 05/10/2020 8:08 PM [employer] SUPERVISOR Has the patient had Daratumumab or Isatuximab in the past 6 months?->Unknown Jones Dickson MD LAB BLOOD BANK TEST MAURO LOCK Final Result [facility] [id number] [facility]. [place] [address] * Comprehensive metabolic panel (05/10/2020 7:19 PM [employer] SUPERVISOR) Sodium 139 135 - 145 mmol/L [facility] Potassium, pl 3.8 3.3 - 4.9 mmol/L [facility] Chloride 102 97 - 110 mmol/L [facility] CO2 25 22 - 32 mmol/L [facility] Anion gap 12 2 - 15 mmol/L [facility] BUN 13 8 - 25 mg/dL [facility] Creatinine 1.00 0.80 - 1.30 mg/dL [facility] Glucose 115 70 - 199 mg/dL [facility] Comment: [...] - 1.2 mg/dL [facility] Protein, pl 7.3 6.5 - 8.5 g/dL [facility] Albumin 4.8 3.5 - 5.0 g/dL [facility] Alk phos 76 40 - 130 Units/L [facility] ALT 21 7 - 55 Units/L [facility] AST 16 10 - 50 Units/L [facility] Blood specimen (specimen) 05/10/2020 7:19 PM [employer] SUPERVISOR 05/10/2020 7:24 PM [employer] SUPERVISOR Jones Dickson MD LAB BLOOD ORDERABLES Fin al Result Performing Organization Address [facility] Co de Phone Number DANA BIRCH [phone] [employer] Department of [employer] [place], [place] [id number] * CBC with auto differential (05/10/2020 7:19 PM [employer] SUPERVISOR) [facility] WBC 9.5 3.8 - 9.9 K/cumm [facility] Hgb 16.4 13.0 - 17.5 g/dL [facility] Hct 48.0 38.9 - 50.3 % [facility] Plt 255 150 - 400 K/cumm [facility] W MPV 10.8 9.1 - 12.3 fL [facility] W RBC 5.66 4.30 - 5.80 M/cumm [facility] MCV 84.8 81.3 - 96.4 fL [facility] MEDEIROSW MCH 29.0 27.1 - 33.3 pg [facility]IROS[facility] MCHC 34.2 32.3 - 35.7 g/dL [facility] RDW CV 13.7 11.1 - 14.9 % [facility] RDW SD 42.2 35.7 - 48.1 fL [facility] MED[facility]IR[facility] NRBC abs 0.00 0.00 - 0.01 K/cumm [facility] Blood specimen (specimen) 05/10/2020 7:19 PM F[employer] SUPERVISOR 05/10/2020 7:24 PM [employer] SUPERVISOR Jones Dickson MD LAB BLOOD ORDERABLES Fin al Result Performing Organization Address City/[facility]/ZIP Co de Phone Number DANA BIRCH [phone] [facility]. [place] [address] documented in this encounter Visit Diagnoses Diagnosis Gastrointestinal hemorrhage, unspecified gastrointestinal hemorrhage type Severe aortic stenosis Aortic valve disorders HTN (hypertension) Unspecified essential hypertension Acute GI bleeding Unspecified, hemorrhage of gastrointestinal tract Hyperlipidemia Other and unspecified hyperlipidemia Gastrointestinal hemorrhage Unspecified, hemorrhage of gastrointestinal tract documented in this encounter Administered Medications Inactive Administered Medications - up to 3 most recent administrations Medication Order MAR Action Action Date Dose Rate Site amLODIPine (NORVASC) tablet 10 mg 10 mg, oral, Daily, First dose on Sat05/11/20 at 0900, On hold since Sat05/11/2020 at 0953 until manually unheld Given 05/11/2020 9:26 AM [employer] SUPERVISOR 10 mg atorvastatin (LIPITOR) tablet 10 mg 10 mg, oral, Daily, First dose on Sat05/11/20 at 0900 Given 05/11/2020 9:26 AM [employer] SUPERVISOR 10 mg lisinopriL (PRINIVIL,ZESTRIL) tablet 5 mg 5 mg, oral, Daily, First dose on Sat05/11/20 at 0900, On hold since Sat05/11/2020 at 0953 until manually unheld Given 05/11/2020 9:26 AM [employer] SUPERVISOR 5 mg ondansetron (ZOFRAN) injection 4 mg 4 mg, intravenous, Administer over 2 Minutes, Every 6 hours PRN, nausea, vomiting, if not tolerating PO, Starting on Sat05/11/20 at 0106, Indications: Nausea and VomitingIndications:Nausea and Vomiting ondansetron ODT (ZOFRAN-ODT) disintegrating tablet 4 mg 4 mg, oral, Every 6 hours PRN, nausea, vomiting, Starting on Sat05/11/20 at 0106, Indications: Nausea and VomitingIndications:Nausea and Vomiting documented in this encounter Discontinued Medications Medication Sig Discontinue Reason Start Date End Da te methylPREDNISolone (MEDROL DOSEPACK) 4 mg Dosepack Therapy completed 10/12/2019 05/10/2020 amLODIPine (NORVASC) 10 mg tablet Take 1 tablet by mouth daily Stop Taking at Discharge 03/31/2015 05/11/2020 aspirin 81 mg tablet Take 81 mg by mouth daily Stop Taking at Discharge 05/11/2020 benazepril (LOTENSIN) 5 mg tablet Take 5 mg by mouth daily Stop Taking at Discharge 03/31/2015 05/11/2020 documented as of this encounter Active and Recently Administered Medications Times are shown in [employer] SUPERVISOR. Scheduled Medication Order 05/09/2020 05/10/2020 05/11/2020 amLODIPine (NORVASC) tablet 10 mg 10 mg, oral, Daily, First dose on Sat05/11/20 at 0900, On hold since Sat05/11/2020 at 0953 until manually unheld 09 (Given - Provid er: Shaye Win RN)09 (Held by Provider - Provider: Nina Medina MD - Reason: Change in Patient Status)2032 (MAR Unhold - Provider: Automatic Discharge Provider) atorvastatin (LIPITOR) tablet 10 mg 10 mg, oral, Daily, First dose on Sat05/11/20 at 0900 0926 (Given - Provid er: Shaye Win RN) latanoprost (XALATAN) 0.005 % ophthalmic solution 1 drop 1 drop, each eye, Nightly, First dose on Sat05/11/20 at 2100 lisinopriL (PRINIVIL,ZESTRIL) tablet 5 mg 5 mg, oral, Daily, First dose on Sat05/11/20 at 0900, On hold since Sat05/11/2020 at 0953 until manually unheld 09 (Given - Provid er: Shaye Win RN)0953 (Held by Provider - Provider: Nina Medina MD - Reason: Change in Patient Status)2032 (MAR Unhold - Provider: Automatic Discharge Provider) montelukast (SINGULAIR) tablet 10 mg 10 mg, oral, Nightly, First dose on Sat05/11/20 at 2100 1943 (Not Given - Pr ovider: Heather Garcia RN - Reason: Patient/family refused) PRN Medication Order 05/09/2020 05/10/2020 05/11/2020 acetaminophen (TYLENOL) tablet 650 mg 650 mg, oral, Every 4 hours PRN, 1st line for pain, fever, fever greater than 38.3 C, Starting on Sat05/11/20 at 0106, Indications: Fever, Pain docusate sodium (COLACE) capsule 100 mg 100 mg, oral, 2 times daily PRN, constipation, Starting on Sat05/11/20 at 0106, Indications: constipation ondansetron (ZOFRAN) injection 4 mg(Linked Group 1) 4 mg, intravenous, Administer over 2 Minutes, Every 6 hours PRN, nausea, vomiting, if not tolerating PO, Starting on Sat05/11/20 at 0106, Indications: Nausea and Vomiting ondansetron ODT (ZOFRAN-ODT) disintegrating tablet 4 mg(Linked Group 1) 4 mg, oral, Every 6 hours PRN, nausea, vomiting, Starting on Sat05/11/20 at 0106, Indications: Nausea and Vomiting Linked Groups Order Group 1: ondansetron ODT (ZOFRAN-ODT) disintegrating tablet 4 mgJump to med 4 mg, oral, Every 6 hours PRN, nausea, vomiting, Starting on Sat05/11/20 at 0106, Indications: Nausea and Vomiting Or ondansetron (ZOFRAN) injection 4 mgJump to med 4 mg, intravenous, Administer over 2 Minutes, Every 6 hours PRN, nausea, vomiting, if not tolerating PO, Starting on Sat05/11/20 at 0106, Indications: Nausea and Vomiting documented in this encounter Orders Medications Ordered That Ernst ht Not Have Been Administered Count Last Ordered Date First Ordered Date acetaminophen (TYLENOL) tablet 650 mg 1 docusate sodium (COLACE) capsule 100 mg 1 0 05/11/2020 latanoprost (XALATAN) 0.005 % ophthalmic solution 1 drop 1 05/11/2020 montelukast (SINGULAIR) tablet 10 mg 1 04/29 ondansetron (ZOFRAN) injection 4 mg 1 05/11 ondansetron ODT (ZOFRAN-ODT) disintegrating tablet 4 mg 1 05/11/2020 Nursing Count Last Ordered Date First Orde red Date WEIGH PATIENT 1 05/11/2020 Consult Count Last Ordered Date First Orde red Date IP CONSULT TO GASTROENTEROLOGY 1 05/11/2020 CORE MEASURES Count Last Ordered Date First Ord ered Date REASON FOR NO VTE PROPHYLAXIS AT ADMISSION 1 05/11/2020 ADT Patient Update Count Last Ordered Date Firs t Ordered Date ED IP DECISION TO ADMIT 1 05/10/2020 documented in this encounter Care Teams Application Technician Relationship Specialty Start Date End Date Martin López MD [address] [place] [address] PCP - General 06/27/12 Khalif Ca MD [address] [place] [address] Referring Physician Cardiology 04/08/19 documented as of this encounter
--- OUTSIDE RECORDS SUMMARY | 2024-04-20 00:19 | XMS_ITS | Encounter Summary ---
Author Organization [facility] Address [address] [place] [address] Phone Care Team Providers Care Mechanical Engineering Intern Name Role Phone Martin López MD Primary Care Provider Khalif Ca MD Unavailable [phone] Reason for Referral * Diagnostic Imaging (Routine) - Closed Specialty Diagnoses / Procedures Referred By Carmenac t Referred To Contact Diagnoses Aortic valve stenosis, etiology of cardiac valve disease unspecified Procedures TAVR Transthoracic Echocardiogram Complete Leslie Barker MD Phone: tel: fax: [address] [address] Referral ID Status Reason Start Date Expiration Date Visits Re quested Visits Authorized [id number] Closed 05/06/2019 11/14/2020 1 1 IAL EDUCATION AIDE Encounter Details Date Type Department Care Team (Late st Contact Info) Description 05/06/2019 1:30 PM SPECIAL EDUCATION AIDE Office Visit [facility] [address] [place] [phone] Aortic valve stenosis, etiology of cardiac valve disease unspecified (Primary Dx) Social History Tobacco Use Types Packs/Day Years Used Date Smoking Tobacco: Never Smokeless Tobacco: Never Sex and Gender Information Value Date Recorded Sex Assigned at Not on file Legal Sex Male 9:13 PM SPECIAL EDUCATION AIDE Gender Identity Male 07/25/2023 3:40 PM CDT Sexual Orientation Straight 10/28/2019 9: 50 AM CDT documented as of this encounter Last Filed Vital Signs Vital Sign Reading Time Taken Comments Blood Pressure 160/98 05/06/2019 1:09 PM SPECIAL EDUCATION AIDE Pulse 81 05/06/2019 1:09 PM SPECIAL EDUCATION AIDE Temperature 36.6 ??C (97.8 ??F) 05/06/2019 1:09 PM CS T Respiratory Rate - - Oxygen Saturation 97% 05/06/2019 1:09 PM SPECIAL EDUCATION AIDE Inhaled Oxygen Concentration - - Weight 98.4 kg (217 lb) 05/06/2019 1:09 PM SPECIAL EDUCATION AIDE Height 175.3 cm (5' 9 ) 05/06/2019 1:09 PM SPECIAL EDUCATION AIDE Body Mass Index 32.05 05/06/2019 1:09 PM SPECIAL EDUCATION AIDE documented in this encounter Progress Notes * Francia Worley MD - 05/06/2019 1:30 PM CST Not seen IAL EDUCATION AIDE documented in this encounter Plan of Treatment Not on file documented as of this encounter Results * TRANSTHORACIC ECHO (TTE) COMPLETE W DOPPLER/CF W CONTRAST (11/04/2019 2:53 PM CDT) Anatomical Region Laterality Modality Ultrasound 11/04/2019 2:00 PM CDT Narrative 11/05/2019 3:12 PM CDT Patient name: Nathan Wagner Date of test: 11/04/2019 Type of test: TTE w/Doppler [facility] #: [id number] Date of : 1945 (M) Fittings Finisher: SILVIA Ansari Referring Physician: LESLIE BARKER MD Contrast Agent: 0.8 ml Optison Administered, (2.2 ml wasted). Contrast Administered by: Juliann Lisa RN Supervised/Interpreted by: Jorge Hunter MD Diagnosis: Location: [facility] Reason for test: Aortic valve stenosis, etiology [...] 2=Hypo 3=Akinetic 4=Dyskin./Aneurysm 0=Not visualized) Parasternal Long Justin:MAS=1 BAS=1 MIL=1 AGUSTÍN=1 Parasternal Short Justin:MAS=1 MIS=1 MD=1 MIL=1 MAL=1 MA=1 Apical 4 Chambers:=1 MIS=1 BIS=1 BAL=1 MAL=1 AL=1 AC=1 Apical 2 Chambers:AI=1 MD=1 BI=1 BA=1 MA=1 AA=1 AC=1 LV Global Longitudinal Strain: RV Global Longitudinal Strain: LV Function: Normal LV Ejection Fraction, (EF=52-72%) RV Function: Normal Septal Motion: normal Pericardial Effusion: none seen Atrial Septum: lipomatous hypertrophy-septum DOPPLER/COLOR FLOW DOPPLER RESULTS: Diastolic Function: Grade I, altered relax. w/N. LA pres. Tricuspid Valve: Trace TR Pulmonic Valve: No KS AV Regurgitation: No AR seen AV Stenosis: [...] severe , no MS, Trace TR, No KS. Diastolic function: Grade I, altered relax. w/N. [...] MD By signing this report, the attending hide stretcher hand certifies that he or she has personally supervised and interpreted the echocardiogram and has reviewed and or edited and agrees with the written comments contained within the report. Procedure Note Jorge Hunter MD - 11/05/2019 Patient name: Nathan Wagner Date of test: 11/04/2019 Type of test: TTE w/Doppler [facility] #: [id number] Date of : 1945 (M) Fittings Finisher: SILVIA Ansari Referring Physician: LESLIE BARKER MD Contrast Agent: 0.8 ml Optison Administered, (2.2 ml wasted). Contrast Administered by: Juliann Lisa RN Supervised/Interpreted by: Jorge Hunter MD Diagnosis: Location: [facility] Reason for test: Aortic valve stenosis, etiology [...] 2=Hypo 3=Akinetic 4=Dyskin./Aneurysm 0=Not visualized) Parasternal Long Justin:MAS=1 BAS=1 MIL=1 AGUSTÍN=1 Parasternal Short Justin:MAS=1 MIS=1 MD=1 MIL=1 MAL=1 MA=1 Apical 4 Chambers:=1 MIS=1 BIS=1 BAL=1 MAL=1 AL=1 AC=1 Apical 2 Chambers:AI=1 MD=1 BI=1 BA=1 MA=1 AA=1 AC=1 LV Global Longitudinal Strain: RV Global Longitudinal Strain: LV Function: Normal LV Ejection Fraction, (EF=52-72%) RV Function: Normal Septal Motion: normal Pericardial Effusion: none seen Atrial Septum: lipomatous hypertrophy-septum DOPPLER/COLOR FLOW DOPPLER RESULTS: Diastolic Function: Grade I, altered relax. w/N. LA pres. Tricuspid Valve: Trace TR Pulmonic Valve: No KS AV Regurgitation: No AR seen AV Stenosis: [...] severe , no MS, Trace TR, No KS. Diastolic function: Grade I, altered relax. w/N. [...] visualized. Confirmed on 11/05/2019 - 15:12:49 by Jorge Hunter MD By signing this report, the attending hide stretcher hand certifies that he or she has personally [...] valve disease unspecified documented in this encounter Historical Medications * This list may reflect changes made after this encounter. clobetasol (TEMOVATE) 0.05 % external solutionIndicati ons:Dermatosis of the Scalp Apply 1 application topically 2 (two) times a day as needed 04/24/2019 2 added in this encounter Care Teams Mechanical Engineering Intern Relationship Specialty Start Date End Date Martin López MD [address] [place] [address] PCP - General 06/27/12 Khalif Ca MD [address] [facility] [address] [place] [address] Referring Physician Cardiology 04/08/19 documented as of this encounter
--- OUTSIDE RECORDS SUMMARY | 2024-04-20 00:19 | XMS_ITS | Encounter Summary ---
Author Organization [facility] Address [address] [place] [address] Phone Care Team Providers Care City Bailiff Name Role Phone Martin López MD Primary Care Provider Khalif Ca MD Unavailable [phone] Reason for Referral * (Routine) - Closed Specialty Diagnoses / Procedures Referred By Bharat bell Referred To Contact Diagnoses Aortic valve stenosis, etiology of cardiac valve disease unspecified Procedures Pulmonary Function Test -[facility] PFT [facility]- [facility]; Standard, Spirometry, Spirometry with Bronchodilator, DLCO, ABG, Airway Resistance; Spirometry, Spirometry w/bronchodilator, DLCO and Lung Volumes; Room Air ABG; Spirometry Tera Torre MD Phone: tel: fax: Referral ID Status Reason Start Date Expiration Date Visits Re quested Visits Authorized [id number] Closed 04/10/2019 10/19/2020 1 1 ND BAKER Reason for Visit * (Routine) - Closed Specialty Diagnoses / Procedures Referred By Conthoma bell Referred To Contact Diagnoses Aortic valve stenosis, etiology of cardiac valve disease unspecified Procedures Pulmonary Function Test -[facility] PFT [facility]- [facility]; Standard, Spirometry, Spirometry with Bronchodilator, DLCO, ABG, Airway Resistance; Spirometry, Spirometry w/bronchodilator, DLCO and Lung Volumes; Room Air ABG; Spirometry Tera Torre MD Phone: tel: fax: Referral ID Status Reason Start Date Expiration Date Visits Re quested Visits Authorized [id number] Closed 04/10/2019 10/19/2020 1 1 Encounter Details Date Type Department Care Team (Latest Contact Info) Description 05/06/2019 10:45 AM SECOND BAKER - 05/06/2019 11:59 PM SECOND BAKER Hospital Encounter [facility] PFT Lab [address] [place] [address] Aortic valve stenosis, etiology of cardiac valve disease unspecified Discharge Disposition: Discharge to home or self care Social History Tobacco Use Types Packs/Day Years Used Date Smoking Tobacco: Never Smokeless Tobacco: Never Sex and Gender Information Value Date Recorded Sex Assigned at Not on file Legal Sex Male 9:13 PM SECOND BAKER Gender Identity Male 07/25/2023 3:40 PM CDT [...] times a day as needed 04/24/2019 2 fluticasone (FLONASE ALLERGY RELIEF) 50 mcg/actuation nasal spray Administer 2 sprays into each nostril daily. 0 documented as of this encounter Discharge Disposition Disposition Code Departure Means Destination Discharge to home or self care documented in this encounter Plan of Treatment Not on file documented as of this encounter Procedures Procedure Name Priority Date/Time Associated Diagnosis Comments PULMONARY FUNCTION TEST (PFT) Routine 05/06/2019 3:15 PM SECOND BAKER Aortic valve stenosis, etiology of cardiac valve disease unspecified documented in this encounter Results * Pulmonary Function Test - (05/06/2019 3:15 PM SECOND BAKER) FVC PRED 4.09 0.05 - 9.99 Liters [facility] FVC PRE 4.68 0 - 12 Liters [facility] FVC %PRE PRED 114 0 - 300 % [facility] FEV1 PRED 3.08 0.05 - 9.99 Liters [facility] FEV1 PRE 3.75 0 - 12 Liters [facility] FEV1 %PRE PRED 122 0 - 300 % [facility] FEV1/FVC PRED 76 1 - 99 % [facility] FEV1/FVC PRE 80 0 - 12 % [facility] ADN40-03% PRED 2.29 0 - 12 L/sec [facility] EIG41-56% PRE 3.87 0 - 12 L/sec [facility] FBL58-19% %PRE PRED 169 0 - 300 % [facility] FEF75% PRED 0.60 0 - 300 L/sec [facility] FEF75% PRE 1.17 0 - 12 L/sec [facility] FEF75% %PRE PRED 194 % [facility] PEF PRED 8.04 0 - 18 L/sec [facility] PEF PRE 11.15 0 - 18 L/sec [facility] PEF %PRE PRED 139 0 - 300 % [facility] PIF PRE 5.09 0 - 18 L/sec [facility] FEV6 PRE 4.46 0 - 12 Liters [facility] FEV1/FEV6 PRE 84 0 - 12 % [facility] VC PRED 3.98 0.05 - 9.99 Liters [facility] VC PRE 4.72 0.05 - 9.99 Liters [facility] VC %PRE PRED 119 0 - 300 % [facility] TLC PRED 6.97 0.05 - 11.99 Liters [facility] TLC PRE 7.02 0.05 - 11.99 Liters [facility] TLC %PRE PRED 101 0 - 300 % [facility] RV PRED 2.49 0.05 - 9.99 Liters [facility] RV PRE 2.30 0.05 - 9.99 Liters [facility] RV %PRE PRED 92 0 - 300 % [facility] RV/TLC PRED 37 0 - 300 % [facility] RV/TLC PRE 33 0 - 300 % [facility] FRC N2 PRED 3.16 0.05 - 9.99 Liters [facility] FRC PL PRED 3.72 0.05 - 9.99 Liters [facility] FRC PL PRE 3.93 0.05 - 9.99 Liters [facility] FRC PL %PRE PRED 106 0 - 300 % [facility] ERV PRED 1.45 0.05 - 9.99 Liters [facility] ERV PRE 1.61 0.05 - 9.99 Liters [facility] ERV %PRE PRED 110 0 - 300 % [facility] IC PRE 3.09 0.05 - 9.99 Liters [facility] DLCO PRED 31.3 0.05 - 99.99 mL/mmHg/min [facility] DLCO PRE 25.9 mL/mmHg/min [facility] DLCO %PRE PRED 83 0 - 300 % [facility] DL ADJ PRED 31.3 1 - 2 mL/mmHg/min [facility] DL ADJ PRE 25.9 1 - 2 mL/mmHg/min [facility] DL ADJ %PRE PRED 83 0 - 300 % [facility] DLCO/VA PRED 4.60 mL/mHg/min/ L [facility] DLCO/VA PRE 4.36 mL/mHg/min/ L [facility] DLCO/VA %PRE PRED 95 % [facility] DL/VA ADJ PRED 3.61 mL/mHg/min/ L [facility] DL/VA ADJ %PRE PRED 121 % [facility] VA PRE 5.95 Liters [facility] RAW PRED 1.19 cmH2O/L/sec [facility] RAW PRE 1.49 cmH2O/L/sec [facility] RAW %PRE PRED 125 % [facility] GAW PRED 0.893 L/sec/cmH2O [facility] GAW PRE 0.673 L/sec/cmH2O [facility] GAW %PRE PRED 75 % [facility] SRAW PRED 4.44 cmH2O/L/s/L [facility] SRAW PRE 6.18 cmH2O/L/s/L [facility] SRAW %PRE PRED 139 % [facility] SGAW PRED 0.219 L/s/cmH2O/L [facility] SGAW PRE 0.162 L/s/cmH2O/L [facility] SGAW %PRE PRED 74 % [facility] pH POC 7.44 [facility] pCO2 POC 41.0 mmHg [facility] PO2 POC 93.0 mmHg [facility] HCO3(c) POC 27.0 meq/L [facility] BE(B) POC 2.6 [facility] A-aDO2 POC 5.5 mmHg [facility] Anatomical Region Laterality Modality PFT 05/06/2019 11:2 4 AM SECOND BAKER Narrative 05/07/2019 2:44 PM SECOND BAKER SEE PDF Tera Torre MD PFT ORDERABLES Final Result documented in this encounter Visit Diagnoses Diagnosis Aortic valve stenosis, etiology of cardiac valve disease unspecified documented in this encounter Care Teams City Bailiff Relationship Specialty Start Date End Date Martin López MD [address] [place] [address] PCP - General 06/27/12 Khalif Ca MD [address] [place] [address] Referring Physician Cardiology 04/08/19 documented as of this encounter
--- OUTSIDE RECORDS SUMMARY | 2024-04-20 00:19 | XMS_ITS | Encounter Summary ---
Author Organization [facility] Address [address] [place] [address] Phone Care Team Providers Care Whizzer Name Role Phone Martin López MD Primary Care Provider Khalif Ca MD Unavailable [phone] Encounter Details Date Type Department Care Team (Late st Contact Info) Description 11/20/2019 Telephone [facility] [address] [facility] [address] [place] [address] Khalif Ca MD [address] [place] [address] Social History Tobacco Use Types Packs/Day Years Used Date Smoking Tobacco: Never Smokeless Tobacco: Never Sex and Gender Information Value Date Recorded Sex Assigned at Not on file Legal Sex Male 9:13 PM TRACK LAYING EQUIPMENT OPERATOR Gender Identity Male 07/25/2023 3:40 PM CDT Sexual Orientation Straight 10/28/2019 9: 50 AM CDT documented as of this encounter Miscellaneous Notes * Telephone Encounter - Svetlana Lay RN - 11/30/2019 12:38 PM CDT See encounter 11/23. * Telephone Encounter - Svetlana Lay RN - 11/20/2019 5:32 PM CDT Telemed 11/16. PLAN: He has been doing well. I [...] 130, then he needs to call us. documented in this encounter Plan of Treatment Not on file documented as of this encounter Visit Diagnoses Not on filedocumented in this encounter Care Teams Whizzer Relationship Specialty Start Date End Date Martin López MD [address] [facility] [address] [place] [address] PCP - General 06/27/12 Khalif Ca MD [address] [facility] [address] [place] [address] Referring Physician Cardiology 04/08/19 documented as of this encounter
--- OUTSIDE RECORDS SUMMARY | 2024-04-20 00:20 | XMS_ITS | Encounter Summary ---
Author Organization [facility] Address [address] [place] [address] Phone Care Team Providers Care Molded Parts Inspector Name Role Phone Martin López MD Primary Care Provider Khalif Ca MD Unavailable [phone] Encounter Details Date Type Department Care Team (Late st Contact Info) Description 04/10/2019 Telephone [facility] Cardiology [address] [place] [address] 8th [place] [address] [place] [address] Tasha Jo RN Social History Tobacco Use Types Packs/Day Years Used Date Smoking Tobacco: Never Smokeless Tobacco: Never Sex and Gender Information Value Date Recorded Sex Assigned at Not on file Legal Sex Male 9:13 PM SITE MANAGER Gender Identity Male 07/25/2023 3:40 PM CDT Sexual Orientation Straight 10/28/2019 9: 50 AM CDT documented as of this encounter Miscellaneous Notes * Telephone Encounter - Tasha Jo RN - 04/10/2019 1:23 PM CST LM for pt return call to set up VC appt. MANAGER documented in this encounter Plan of Treatment Not on file documented as of this encounter Visit Diagnoses Not on filedocumented in this encounter Care Teams Molded Parts Inspector Relationship Specialty Start Date End Date Martin López MD [address] [place] [address] PCP - General 06/27/12 Khalif Ca MD [address] [place] [address] Referring Physician Cardiology 04/08/19 documented as of this encounter
--- OUTSIDE RECORDS SUMMARY | 2024-04-20 00:20 | XMS_ITS | Encounter Summary ---
Author Organization [facility] Address [address] [place] [address] Phone Care Team Providers Care Worm Sorter Name Role Phone Martin López MD Primary Care Provider Khalif Ca MD Unavailable [phone] Encounter Details Date Type Department Care Team (Late st Contact Info) Description 04/08/2019 Telephone [facility] Cardiology [address] [place] [address] 8th [place] [address] [place] [address] David Perales CMA Social History Tobacco Use Types Packs/Day Years Used Date Smoking Tobacco: Never Smokeless Tobacco: Never Sex and Gender Information Value Date Recorded Sex Assigned at Not on file 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 OLOGY ENGINEER * Telephone Encounter - David Perales - 04/08/2019 9:41 AM CST Referral to valve from Dr. Ca for aortic stenosis OLOGY ENGINEER documented in this encounter Plan of Treatment Not on file documented as of this encounter Visit Diagnoses Not on filedocumented in this encounter Care Teams Worm Sorter Relationship Specialty Start Date End Date Martin López MD [address] [place] [address] PCP - General 06/27/12 Khalif Ca MD [address] [facility] [address] [place] [address] Referring Physician Cardiology 04/08/19 documented as of this encounter
--- OUTSIDE RECORDS SUMMARY | 2024-04-20 00:20 | XMS_ITS | Encounter Summary ---
Author Organization [facility] Address [address] [place] [address] Phone Care Team Providers Care Spring Tester Name Role Phone Martin López MD Primary Care Provider Khalif Ca MD Unavailable [phone] Encounter Details Date Type Department Care Team (Late st Contact Info) Description 04/14/2019 Telephone [facility] Cardiology [facility] 8th [place] [address] [place] [address] Carmen Clinton Social History Tobacco Use Types Packs/Day Years Used Date Smoking Tobacco: Never Smokeless Tobacco: Never Sex and Gender Information Value Date Recorded Sex Assigned at Not on file Legal Sex Male 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 STEWARD * Telephone Encounter - Jaelyn Keith RN - 04/14/2019 11:38 AM CST Can you please book at 11:00 am. We will send a revised letter. STEWARD * Telephone Encounter - Carmen Clinton - 04/14/2019 10:17 AM CST VALVE RECEIVED AN EMAIL ABOUT PT PFT. PLEASE SEE BELOW AND ADVISE. the 10 am slot on that day is already scheduled, but I have 9, 11, 12 & 1 available. Will one of those work? STEWARD documented in this encounter Plan of Treatment Not on file documented as of this encounter Visit Diagnoses Not on filedocumented in this encounter Care Teams Spring Tester Relationship Specialty Start Date End Date Martin López MD [address] [address] PCP - General 06/27/12 Khalif Ca MD [address] [address] Referring Physician Cardiology 04/08/19 documented as of this encounter
--- OUTSIDE RECORDS SUMMARY | 2024-04-20 00:20 | XMS_ITS | Encounter Summary ---
Author Organization [facility] Address [address] [place] [address] Phone Care Team Providers Care Plating Tank Operator Apprentice Name Role Phone Martin López MD Primary Care Provider Khalif Ca MD Unavailable [phone] Encounter Details Date Type Department Care Team (Late st Contact Info) Description 05/05/2019 Orders Only [facility] Cardiology [address] [facility] 8th [place] [address] [place] [address] Tasha Jo RN Social History Tobacco Use Types Packs/Day Years Used Date Smoking Tobacco: Never Smokeless Tobacco: Never Sex and Gender Information Value Date Recorded Sex Assigned at Not on file 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
--- OUTSIDE RECORDS SUMMARY | 2024-04-20 00:20 | XMS_ITS | Encounter Summary ---
Author Organization [facility] Address [address] [place] [address] Phone Care Team Providers Care Linen Manager Name Role Phone Martin López MD Primary Care Provider Khalif Ca MD Unavailable [phone] Reason for Referral * (Routine) - Closed Specialty Diagnoses / Procedures Referred By Bharat t Referred To Contact Diagnoses Aortic valve stenosis, etiology of cardiac valve disease unspecified Procedures ECG 12 lead Tera Torre MD Phone: tel: fax: [facility] (All Locations) Referral ID Status Reason Start Date Expiration Date Visits Re quested Visits Authorized [id number] Closed 05/06/2019 11/14/2020 1 1 ERY TESTER Reason for Visit * Cardiology (Routine) - Closed Specialty Diagnoses / Procedures Referred By Bharat bell Referred To Contact Cardiology Diagnoses Aortic valve stenosis, etiology of cardiac valve disease unspecified Khalif Ca MD [address] [facility] [address] [place] [address] Phone: tel: fax: [facility] (All Locations) Referral ID Status Reason Start Date Expiration Date V isits Requested Visits Authorized [id number] Closed Specialty Services Required 04/08/2019 10/17/2020 99 [phone] Encounter Details Date Type Department Care Team (Late st Contact Info) Description 05/06/2019 1:30 PM BATTERY TESTER Office Visit [facility] Cardiology [facility] Medical Office Building [address] [place] [address] Aortic valve stenosis, etiology of cardiac valve disease unspecified (Primary Dx) Social History Tobacco Use Types Packs/Day Years Used Date Smoking Tobacco: Never Smokeless Tobacco: Never Sex and Gender Information Value Date Recorded Sex Assigned at Not on file Legal Sex Male 9:13 PM BATTERY TESTER Gender Identity Male 07/25/2023 3:40 PM CDT Sexual Orientation Straight 10/28/2019 9: 50 AM CDT documented as of this encounter Last Filed Vital Signs Vital Sign Reading Time Taken Comments Blood Pressure 160/98 05/06/2019 1:35 PM BATTERY TESTER Pulse 81 05/06/2019 1:35 PM BATTERY TESTER Temperature 36.6 ??C (97.8 ??F) 05/06/2019 1:35 PM CS T Respiratory Rate - - Oxygen Saturation 97% 05/06/2019 1:35 PM BATTERY TESTER Inhaled Oxygen Concentration - - Weight 98.4 kg (217 lb) 05/06/2019 1:35 PM BATTERY TESTER Height 175.3 cm (5' 9 ) 05/06/2019 1:35 PM BATTERY TESTER Body Mass Index 32.05 05/06/2019 1:35 PM BATTERY TESTER documented in this encounter Progress Notes * Tera Torre MD - 05/06/2019 1:30 PM CST Images from the original note were not included. [facility] Department of Medicine Cardiovascular Division Tera Torre M.D. [facility], [place] [address], [address] [place] [phone], [email or web address] Date: 05/06/2019 Referring Physician Khalif Ca MD Patient Name: Nathan Wagner Date of : 1945 Date of Visit: 05/06/2019 REASON FOR CONSULTATION: Aortic stenosis CHIEF COMPLAINT: Bad valve HISTORY OF PRESENT ILLNESS: We had the pleasure of seeing Nathan Wagner today at the at the Center for valvular heart disease at [facility] for evaluation of aortic stenosis. As you know, He is a pleasant 73 y.o. male with a past medical history of hypertension and aortic valve disease who presents for evaluation of progressive aortic stenosis. Patient been in his usual state of health up until about 4 years ago when he was noted to have aortic stenosis. At that time he was referred for urgent surgery given that it was likelya bicuspid valve and he had some evidence of severe narrowing. He was seen by who felt it was more moderate in nature and did not require urgent intervention. He has been followed for the last 4 years and has done extremely well. Over the last year he has noted progressive increases in hisgradients to a level that is now severe. He himself denies any symptoms whatsoever. He denies any shortness of breath PND orthopnea. Denies any chest pain pressure tightness. Denies any dizziness lightheadedness presyncope or syncopal episodes. He exercises on the treadmill for approximately 1 hour5-6 days weak and is not limited in any way shape or form doing this. He also was an active person at home and around the house and has had no limitations from this. Overall he feels well and would not know he has any valve problems that have changed based upon his symptoms The patient denies any fevers, chills, or cough productive of sputum. Denies any double vision, change in vision, or neurologic symptoms. Denies any weight loss or weight gain. Denies any change in bowel or bladder. Denies any bleeding or blood in their stools. PAST MEDICAL HISTORY: 1. Hypertension 2. Aortic stenosis 3. Allergic rhinitis FAMILY HISTORY: Family history of hypertension. He does not know his biological father. No history of valvular heart disease in his family. 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 He smoked for a short period time in the [employer]. He denies any current tobacco use. Denies any alcohol use. ALLERGIES: No Known Allergies MEDICATIONS: Current Outpatient Medications: ??? amLODIPine (NORVASC) 10 mg tablet ??? aspirin 81 mg tablet ??? atorvastatin (LIPITOR) 10 mg tablet ??? azelastine 0.15 % (205.5 mcg) spray,non-aerosol ??? benazepril (LOTENSIN) 5 mg tablet ??? clobetasol (TEMOVATE) 0.05 % external solution ??? fluticasone (FLONASE ALLERGY RELIEF) 50 mcg/actuation nasal spray ??? montelukast (SINGULAIR) 10 mg tablet ??? travoprost (TRAVATAN Z) 0.004 % drops REVIEW OF SYSTEMS: All 12 systems reviewed are negative or as per HPI. PHYSICAL EXAMINATION: Vitals: 05/06/19 1335 BP: 160/98 BP Location: Left arm Patient Position: Sitting Pulse: 81 Temp: 36.6 ??C (97.8 ??F) SpO2: 97% Weight: 98.4 kg (217 lb) Height: 175.3 cm (5' 9 ) GENERAL: He is alert and oriented, a frail looking gentleman in no acute distress. HEENT: Extraocular muscles intact. Sclerae white. Mucous members are moist. NECK: No thyromegaly. No lymphadenopathy. No JVD. LUNGS: Clear to auscultation bilaterally. HEART: Regular rate and rhythm. systolic ejection murmur heard with diminished S2, no gallop of rubs appreciated. ABDOMEN: Non tender, non distended. No hepatomegly MUSCULOSKELETAL: He has +5 strength in both upper and lower extremities, bilaterally symmetric. NEUROLOGIC: Alert and oriented x4. Grossly normal motor and sensation. No asterixis noted. VASCULAR: no edema. + 2 radial pulses bilateral and symmetric SKIN: No cyanosis, no clubbing, no skin rashes noted. LABORATORY DIAGNOSTICS: ECG today shows sinus rhythm Transthoracic echocardiogram from normal LV and RV function the EF of 55%. He has severe aortic stenosis with a mean gradient 42 peak gradient 70 mm Hg. He has had a significant increase in his gradients from 2018. He has no other significant valvular heart disease. Lab results: Chemistry Lab Results Component Value Date SODIUM 140 05/06/2019 POTASSIUM 4.0 05/06/2019 CHLORIDE 101 05/06/2019 CO2 27 05/06/2019 ANIONGAP 12 05/06/2019 BUNSER 20 05/06/2019 CREATININE 1.10 05/06/2019 GLUCOSE 122 05/06/2019 CALCIUM 10.3 05/06/2019 BILITOT 0.7 05/06/2019 ALBUMIN 4.7 05/06/2019 GFRNAA >60 05/06/2019 ALKPHOS 62 05/06/2019 AST 18 05/06/2019 ALT 28 05/06/2019 Hematology Lab History Some values may be hidden. Unless noted otherwise, only the newest values recorded on each date aredisplayed. Labs - Hematology Latest Ref Range 05/06/19 WBC 3.8 - 9.9 K/cumm 6.3 Total Hb, POC 13.0 - 17.5 g/dL 16.4 Hct 38.9 - 50.3 % 49.2 Plt 150 - 400 K/cumm 237 Neutrophil abs 1.7 - 6.5 K/cumm 4.7 IMPRESSION AND PLAN: 1. Severe aortic stenosis. Patient has severe aortic stenosis but is asymptomatic. I think at this point we can continue monitoring his valve and his symptoms. We Would like to repeat his transthoracic echocardiogram in 6 months time and see him back in clinic. We did discuss at length that if he should have any symptoms or decreased activity for any reason he is to contact our office. He is in agreement with this plan. Thank you for allowing me to participate in the care of this patient. I would be happy to follow upon the results of our diagnostic testing and make appropriate recommendations in the future. Tera Torre M.D. Stoker Installation Mechanicnight custodian Martin López MD [address] [facility] [address] [place] [phone] Khalif Ca MD ERY TESTER documented in this encounter Plan of Treatment Not on file documented as of this encounter Procedures Procedure Name Priority Date/Time Associated Diagnosis Comments ECG 12-LEAD Routine 05/06/2019 Aortic valve stenosis, etiology of cardiac valve disease unspecified documented in this encounter Results * Pro B-type natriuretic peptide (05/06/2019 12:33 PM BATTERY TESTER) NT-proBNP 71 <=300 pg/mL DANA [facility] Comment: Interpretive Comments: [...] Heart J. 2006:27:330-337. 2. Camila RW, Irina AM. J. AM Christiano Cardiol: Cardiovasc Imag. 2009;2: 216- 225. Interpretive Data Last Revised Date: 2017. Blood specimen (specimen) 05/06/2019 12:33 PM BATTERY TESTER 05/06/2019 1:22 PM BATTERY TESTER Tera Torre MD LAB BLOOD ORDERABLES Final R esult [facility] [address] [facility]. Department [place] [address] * Protime-INR (05/06/2019 12:33 PM BATTERY TESTER) PT 13.4 11.5 - 14.0 sec [facility] INR 1.0 0.9 - 1.1 DANA [facility] Comment: Interpretive data Oral anticoagulant therapeutic ranges: Venous thromboembolism prophylaxis or treatment: 2.0-3.0 CARDIOLOGY Standard range: 2.0-3.0 High-intensity range: 2.5-3.5 Refer to indication-specific guidelines for appropriate target ranges for prosthetic heart valve replacement. Current interpretive data was last revised on 2019. Blood specimen (specimen) 05/06/2019 12:33 PM BATTERY TESTER 05/06/2019 1:22 PM BATTERY TESTER Tera Torre MD LAB BLOOD ORDERABLES Final R esult [facility] [address] [facility]. Department [place] [address] * Comprehensive metabolic panel (05/06/2019 12:33 PM BATTERY TESTER) Sodium 140 135 - 145 mmol/L CERNER [...] [facility] Blood specimen (specimen) 05/06/2019 12:33 PM BATTERY TESTER 05/06/2019 1:22 PM BATTERY TESTER Tera Torre MD LAB BLOOD ORDERABLES Final R esult Performing Organization Address [facility]/ZIP Co de Phone Number DANA BIRCH [phone] [employer] [address] * CBC with auto differential (05/06/2019 12:33 PM BATTERY TESTER) WBC 6.3 3.8 - 9.9 K/cumm [facility] Hgb 16.4 13.0 - 17.5 g/dL [facility] Hct 49.2 38.9 - 50.3 % [facility] Plt 237 150 - 400 K/cumm [facility] MPV 11.4 9.1 - 12.3 fL [facility] RBC 5.67 4.30 - 5.80 M/cumm [facility] MCV 86.8 81.3 - 96.4 fL [facility] MCH 28.9 27.1 - 33.3 pg [facility] MCHC 33.3 32.3 - 35.7 g/dL [facility] RDW CV 13.4 11.1 - 14.9 % [facility] RDW SD 42.7 35.7 - 48.1 fL [facility] NRBC abs 0.00 0.00 - 0.01 K/cumm [facility] Blood specimen (specimen) 05/06/2019 12:33 PM BATTERY TESTER 05/06/2019 1:22 PM BATTERY TESTER Tera Torre MD LAB BLOOD ORDERABLES Final R esult Performing Organization Address City/[facility]/ZIP Co de Phone Number DANA BIRCH [address] Department [place] [address] * ECG 12 lead (05/06/2019) Tera Torre MD ECG ORDERABLES Final Result documented in this encounter Visit Diagnoses Diagnosis Aortic valve stenosis, etiology of cardiac valve disease unspecified- Primary documented in this encounter Orders Outpatient Referral Count Last Ordered Date Fir st Ordered Date AMB REFERRAL TO CARDIOLOGY 1 05/06/2019 documented in this encounter Care Teams Linen Manager Relationship Specialty Start Date End Date Martin López MD [address] [place] [address] PCP - General 06/27/12 Khalif Ca MD [address] [place] [address] Referring Physician Cardiology 04/08/19 documented as of this encounter
--- OUTSIDE RECORDS SUMMARY | 2024-04-20 00:20 | XMS_ITS | Encounter Summary ---
Author Organization [facility] Address [address] [place] [address] Care Team Providers Care Shaker Flatwork Name Role Phone Martin López MD Primary Care Provider Reason for Referral * Cardiology (Routine) - Closed Specialty Diagnoses / Procedures Referred By Contac t Referred To Contact Diagnoses Encounter for screening Aortic valve stenosis, etiology of cardiac valve disease unspecified Procedures Transthoracic Echo Complete W Doppler/CF Khalif Caraballo MD Phone: tel: fax: [facility] Referral ID Status Reason Start Date Expiration Date Visits Re quested Visits Authorized [id number] Closed 10/13/2018 04/23/2020 1 1 ARK LABORER Reason for Visit * Cardiology (Routine) - Closed Specialty Diagnoses / Procedures Referred By Contac t Referred To Contact Diagnoses Encounter for screening Aortic valve stenosis, etiology of cardiac valve disease unspecified Procedures Transthoracic Echo Complete W Doppler/CF Khalif Caraballo MD Phone: tel: fax: [facility] Referral ID Status Reason Start Date Expiration Date Visits Re quested Visits Authorized [id number] Closed 10/13/2018 04/23/2020 1 1 Encounter Details Date Type Department Care Team (Latest Contact Info) Description 04/07/2019 8:34 AM TANBARK LABORER - 04/07/2019 11:59 PM TANBARK LABORER Hospital Encounter [facility] Radiology Echo Lab [address] [address] Khalif Caraballo MD [address] [place] [address] Encounter for screening; Aortic valve stenosis, etiology of cardiac valve disease unspecified Discharge Disposition: Discharge to home or self care Social History Tobacco Use Types Packs/Day Years Used Date Smoking Tobacco: Never Smokeless Tobacco: Never Sex and Gender Information Value Date Recorded Sex Assigned at Not on file Legal Sex Male 9:13 PM TANBARK LABORER Gender Identity Male 07/25/2023 3:40 PM CDT Sexual Orientation Straight 10/28/2019 9: 50 AM CDT documented as of this encounter Last Filed Vital Signs Vital Sign Reading Time Taken Comments Blood Pressure 162/91 04/07/2019 9:14 AM TANBARK LABORER Pulse - - Temperature - - Respiratory Rate - - Oxygen Saturation - - Inhaled Oxygen Concentration - - Weight 98 kg (216 lb) 04/07/2019 9:14 AM TANBARK LABORER Height 175.3 cm (5' 9 ) 04/07/2019 9:14 AM TANBARK LABORER Body Mass Index 31.9 04/07/2019 9:14 AM TANBARK LABORER documented in this encounter Medications at Time [...] 5 mg by mouth daily 03/31/2015 1 fluticasone (FLONASE ALLERGY RELIEF) 50 mcg/actuation nasal [...] (TTE) COMPLETE W DOPPLER/CF W CONTRAST Routine 04/07/2019 10:32 AM TANBARK LABORER Encounter for screening Aortic valve stenosis, etiology of cardiac valve disease unspecified documented in this encounter Results * TRANSTHORACIC ECHO (TTE) COMPLETE W DOPPLER/CF W CONTRAST (04/07/2019 10:32 AM TANBARK LABORER) Anatomical Region Laterality Modality Ultrasound 04/07/2019 9:00 AM TANBARK LABORER Narrative 04/07/2019 12:24 PM TANBARK LABORER Patient name: Nathan Wagner Date of test: 04/07/2019 Type of test: TTE w/Doppler [facility] #: [id number] Date of : 1945 (M) Rewinder Operator: Alejandra Diaz [facility] Referring Physician: KHALIF CARABALLO MD Contrast Agent: 1.5 ml Optison Administered, (1.5 ml wasted). Contrast Administered by: Mildred Washington RN Supervised/Interpreted by: Kyle Maya MD Diagnosis: Location: [facility] Reason for test: MV Structure: Normal, ?MV Motion: Normal, ?? Mitral Annulus: Normal AV Structure: tricuspid and is stenotic, ?? AV Motion: restricted Aotic root: Normal, ?TM: Normal, ?? PV: Normal Valvular Vegetations: none seen, ?Mass/Thrombi: none seen RA: Normal Measurements: ?M-Mode ?Normal ? Aotic Root: ? <3.8 ? LA: ? <4.0 ? RV: ? <2.8 ? LV(ED): ? <5.7 ? LV(ES): ? Variable ?2D Linear Normal ? Aotic Root: 3.7 cm ?<4.0 ? Ao Indexed: 1.7 cm/M2 <2.0 ? LA: ? <4.0 ? RV: ? 3.3 cm ?<4.2 ? LV(ED): ? 4.5 cm ?<5.9 ? LV(ES): ? 3.3 cm ?<4.0 ?2D Vol. ?? Normal ?Indexed ?? Indexed Normal RA: ? 49.0 ml ? 23.0 ml/M2 ?11-39 ? LA: ? 61.0 ml ? 28.6 ml/M2 ?16-34 ? RV: ? <12.7 ? LV(ED): ? 116.0 ml ??62-150 ?54.3 ml/M2 ?<75 ? LV(ES): ? 20.0 ml ?? 21-61 ? 9.4 ml/M2 ? <32 ?3D Vol. ? Indexed Normal LV(ED): ?<75 ? LV(ES): ?<32 ? LV EF: 83 % ?? (Normal: >=52%) ?? LV Septum: 1.3 cm ?(Normal: <1.0 cm) Wall Motion Scoring (1=Normal 2=Hypo 3=Akinetic 4=Dyskin./Aneurysm 0=Not visualized) Parasternal Long [place]:MAS=1 BAS=1 MP=1 BP=1 Parasternal Short [place]:MAS=1 MS=1 RI=1 MP=1 ML=1 MA=1 Apical 4 Chambers:=1 MS=1 BS=1 BL=1 RI=1 AL=1 Apical 2 Chambers:AI=1 RI=1 BI=1 BA=1 MA=1 AA=1 LV Global Longitudinal Strain: -17.2% ??(Normal <-19%) RV Global Longitudinal Strain: LV Function: Hyperdynamic LV Ejection Fraction (EF 83%) RV Function: Normal Septal Motion: Normal Pericardial Effusion: none seen Atrial Septum: Normal DOPPLER/COLOR FOLOW DOPPLER RESULTS: Diastolic Function: Grade I, altered relax. w/N. LA pres. Tricuspid Valve: mild TV regurgitation Pulmonic Valve: normal PV AV Regurgitation: No AR seen AV Stenosis: severe AV Area: 0.9 cm2 AV Pressure Gradient (mmHg): Mean: 42, Peak:70 MV Regurgitation: No MR seen MV Stenosis: no MS MV Area: ??cm2 MV Pressure Gradient (mmHg): Mean: 0 MV ERO: ??cm Regurg. Vol.: ??ml/beat Regurg. Frac.: ??% PA Pressure: 25 mmHg DOPPLER/COLOR FOLOW DOPPLER COMMENTS: No AR seen, No MR seen, no , no MS, normal TV, normal PV. Diastolic function: Grade I, altered relax. w/N. LA pres. LVOTd=2.1 cm; TVI ratio=26/102; dimensionless index 0.25 CONTRAST: 1.5 ml Optison Administered, (1.5 ml wasted). SUMMARY: -Moderate to severe Aortic Stenosis; LENORA 0.88 cm2; dimensionless index 0.25; further progression in severity since June 2018; LA is normal. Normal RV cavity size. LV cavity size is normal. Mild concentric LV hypertrophy. Normal aorta. ??Hyperdynamic LV Ejection Fraction. ??83 %. Confirmed on ??04/07/2019 - 12:24:42 by Kyle Maya MD By signing this report, the attending search developer certifies that he or she has personally supervised and interpreted the echocardiogram and has reviewed and or edited and agrees with the written comments contained within the report. Procedure Note Kyle Maya MD - 04/07/2019 Patient name: Nathan Wagner Date of test: 04/07/2019 Type of test: TTE /[facility] #: [id number] Date of : 1945 (M) Rewinder Operator: Alejandra Diaz RDCS Referring Physician: KHALIF CARABALLO MD Contrast Agent: 1.5 ml Optison Administered, (1.5 ml wasted). Contrast Administered by: Mildred Washington, RN Supervised/Interpreted by: Kyle Maya MD Diagnosis: Location: [facility] Reason for test: MV Structure: Normal, MV Motion: Normal, Mitral Annulus: Normal AV Structure: tricuspid and is stenotic, AV Motion: restricted Aotic root: Normal, TM: Normal, PV: Normal Valvular Vegetations: none seen, Mass/Thrombi: none seen RA: Normal Measurements: M-Mode Normal Aotic Root: <3.8 LA: <4.0 RV: <2.8 LV(ED): <5.7 LV(ES): Variable 2D Linear Normal Aotic Root: 3.7 cm <4.0 Ao Indexed: 1.7 cm/M2 <2.0 LA: <4.0 RV: 3.3 cm <4.2 LV(ED): 4.5 cm <5.9 LV(ES): 3.3 cm <4.0 2D Vol. Normal Indexed Indexed Normal RA: 49.0 ml 23.0 ml/M2 11-39 LA: 61.0 ml 28.6 ml/M2 16-34 RV: <12.7 LV(ED): 116.0 ml 62-150 54.3 ml/M2 <75 LV(ES): 20.0 ml 21-61 9.4 ml/M2 <32 3D Vol. Indexed Normal LV(ED): <75 LV(ES): <32 LV EF: 83 % (Normal: >=52%) LV Septum: 1.3 cm (Normal: <1.0 cm) Wall Motion Scoring (1=Normal 2=Hypo 3=Akinetic 4=Dyskin./Aneurysm 0=Not visualized) Parasternal Long [place]:MAS=1 BAS=1 MP=1 BP=1 Parasternal Short [place]:MAS=1 MS=1 RI=1 MP=1 ML=1 MA=1 Apical 4 Chambers:=1 MS=1 BS=1 BL=1 RI=1 AL=1 Apical 2 Chambers:AI=1 RI=1 BI=1 BA=1 MA=1 AA=1 LV Global Longitudinal Strain: -17.2% (Normal <-19%) RV Global Longitudinal Strain: LV Function: Hyperdynamic LV Ejection Fraction (EF 83%) RV Function: Normal Septal Motion: Normal Pericardial Effusion: none seen Atrial Septum: Normal DOPPLER/COLOR FOLOW DOPPLER RESULTS: Diastolic Function: Grade I, altered relax. w/N. LA pres. Tricuspid Valve: mild TV regurgitation Pulmonic Valve: normal PV AV Regurgitation: No AR seen AV Stenosis: severe AV Area: 0.9 cm2 AV Pressure Gradient (mmHg): Mean: 42, Peak:70 MV Regurgitation: No MR seen MV Stenosis: no MS MV Area: cm2 MV Pressure Gradient (mmHg): Mean: 0 MV ERO: cm Regurg. Vol.: ml/beat Regurg. Frac.: % PA Pressure: 25 mmHg DOPPLER/COLOR FOLOW DOPPLER COMMENTS: No AR seen, No MR seen, no , no MS, normal TV, normal PV. Diastolic function: Grade I, altered relax. w/N. LA pres. LVOTd=2.1 cm; TVI ratio=26/102; dimensionless index 0.25 CONTRAST: 1.5 ml Optison Administered, (1.5 ml wasted). SUMMARY: -Moderate to severe Aortic Stenosis; LENORA 0.88 cm2; dimensionless index 0.25; further progression in severity since June 2018; LA is normal. Normal RV cavity size. LV cavity size is normal. Mild concentric LV hypertrophy. Normal aorta. Hyperdynamic LV Ejection Fraction. 83 %. Confirmed on 04/07/2019 - 12:24:42 by Kyle Maya MD By signing this report, the attending search developer certifies that he or she has personally supervised and interpreted the echocardiogram and has reviewed and or edited and agrees with the written comments contained within the report. us Khalif Caraballo MD CV ECHO PROCEDURES Final [...] intravenous, Once in imaging, contrast, Starting on Sat04/07/19 at 0913, For 1 dose, Intra-Procedure (CV) Given 04/07/2019 10:24 AM TANBARK LABORER 4 mL documented in this encounter Care Teams Shaker Flatwork Relationship Specialty Start Date End Date Martin López MD [address] [facility] [[email or web address] [address] [place] [address] PCP - General 06/27/12 documented as of this encounter
--- OUTSIDE RECORDS SUMMARY | 2024-04-20 00:20 | XMS_ITS | Encounter Summary ---
Author Organization [facility] Address [address] [place] [address] Phone Care Team Providers Care Animal Tech Name Role Phone Martin López MD Primary Care Provider Khalif Ca MD Unavailable Encounter Details Date Type Department Care Team (Late st Contact Info) Description 04/08/2019 Telephone [facility] Cardiology [address] [facility] Advanced Medicine [address]th [place] [address] [place] [id number] Khalif Ca MD [address] [place], [place] [id number] Social History Tobacco Use Types Packs/Day Years Used Date Smoking Tobacco: Never Smokeless Tobacco: Never Sex and Gender Information Value Date Recorded Sex Assigned at Not on file Legal Sex Male 9:13 PM MINERAL ENGINEER Gender Identity Male 07/25/2023 3:40 PM CDT Sexual Orientation Straight 10/28/2019 9: 50 AM CDT documented as of this encounter Miscellaneous Notes * Telephone Encounter - Gris Zuniga RN - 04/08/2019 8:43 AM CST See echo RAL ENGINEER * Telephone Encounter - Carmen Clinton - 04/08/2019 8:21 AM CST PT RETURNING A CALL. RAL ENGINEER documented in this encounter Plan of Treatment Not on file documented as of this encounter Visit Diagnoses Not on filedocumented in this encounter Care Teams Animal Tech Relationship Specialty Start Date End Date Martin López MD [address] [facility] [address] [place] [address] PCP - General 06/27/12 Khalif Ca MD [address] [facility] [address] [place] [address] Referring Physician Cardiology 04/08/19 documented as of this encounter
--- OUTSIDE RECORDS SUMMARY | 2024-04-20 00:20 | XMS_ITS | Encounter Summary ---
Author Organization [facility] Address [address] [place] [address] Phone Care Team Providers Care Recep Name Role Phone Martin López MD Primary Care Provider Reason for Visit * Reason Comments Follow-up Encounter Details Date Type Department Care Team (Late st Contact Info) Description 04/07/2019 11:30 AM RODDING MACHINE TENDER Office Visit [facility] Cardiology [facility] Building [address] [place] [id number] Khalif Caraballo MD [facility] [address] [place] [address] Encounter for screening (Primary Dx) Social History Tobacco Use Types Packs/Day Years Used Date Smoking Tobacco: Never Smokeless Tobacco: Never Sex and Gender Information Value Date Recorded Sex Assigned at Not on file Legal Sex Male 9:13 PM RODDING MACHINE TENDER Gender Identity Male 07/25/2023 3:40 PM CDT Sexual Orientation Straight 10/28/2019 9: 50 AM CDT documented as of this encounter Last Filed Vital Signs Vital Sign Reading Time Taken Comments Blood Pressure 150/88 04/07/2019 10:57 AM RODDING MACHINE TENDER Pulse 86 04/07/2019 10:57 AM RODDING MACHINE TENDER Temperature - - Respiratory Rate - - Oxygen Saturation 98% 04/07/2019 10: 57 AM RODDING MACHINE TENDER Inhaled Oxygen Concentration - - Weight 97.4 kg (214 lb 12.8 oz) 019 10:57 AM RODDING MACHINE TENDER Height 176.5 cm (5' 9.5 ) 04/07/2019 10 :57 AM RODDING MACHINE TENDER Body Mass Index 31.27 04/07/2019 10:57 AM RODDING MACHINE TENDER documented in this encounter Patient Instructions * Patient Instructions* Lori Farmer CMA - 04/07/2019 11:30 AM RODDING MACHINE TENDER FOLLOW UP WITH DR CARABALLO IN 6 MONTHS ING MACHINE TENDER documented in this encounter Progress Notes * Khalif Caraballo MD - 04/07/2019 12:00 AM CST Date: 04/07/2019 Patient Name: MARIZOL GRIMALDO Date of : 1945 Date of Visit: 04/07/2019 HISTORY OF PRESENT ILLNESS: Marizol Grimaldo is 73 years old, 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 He has known aortic stenosis. The last echo he had showed that he was approaching the significant elevation. His gradient was 40, and his aorticvalve area was 1 cm, but he is entirely asymptomatic. His heart function has remained fortunately normal. In fact, his heart function was high normal at 72%, which is very good. He is still exercising regularly, brisk walking, not really running, which is good. He is going for a minimum of 45 minutes to an hour of brisk walking 5 or 6 times a week. He is very consistent with his exercise. He is getting 7 to 8 hours sleep a night, and maybe he is pushing it closer to the 8-1/2 barrier. I think he misunderstood what I said before because he was thinking I said you should get 8-1/2 hours sleep anight, and it is just the opposite. [facility] right [facility], but we will call him with the results. He is exercising, has not noticed any change in his exercise threshold. He is getting sleep at night, exercising regularly. No chest pain, no shortness of breath. No change in his exercise threshold. No change in his breathing. No palpitations. No lightheaded, no dizzy spells. He has been entirely asymptomatic. He is still kind of the nervous type. CURRENT MEDICATIONS: 1. He receives amlodipine 10 for hypertension. 2. Benazepril 5. 3. Atorvastatin 10 daily for hyperlipidemia. 4. Singulair for allergies. 5. Aspirin 81 mg daily. PHYSICAL EXAMINATION: VITAL SIGNS: His blood pressure is 150/88, pulse 85 and regular. O2 sat 98% on room air. Weight is very stable at 214. HEENT: Head, ears, eyes, nose and throat are normal. Cognitive function is very good. Oriented x3. Wears glasses. He has good dentition. NECK: No carotid bruits. No jugular venous distention. Thyroid is not enlarged. LUNGS: Good expansion. Normal lung sounds. Good excursion. CARDIAC: His heart rhythm is regular. No clicks. He does have a grade 3/6 to 4/6 murmur of aortic stenosis that radiates widely across the chest. ABDOMEN: Soft, nontender. Liver is not enlarged. EXTREMITIES: He has no peripheral edema. No significant change in skin turgor. Minimal arthritic changes in his upper extremities. No ecchymoses or abnormal skin conditions. ASSESSMENT AND PLAN: He is going to get the bloods, and he will send them to us. We will see him again in 6 months but we will also see what the echo shows. If he does not hear from us, that means there is no change, buthe should call within a week after the echo to verify that there is no change. ELECTRONICALLY SIGNED - 04/08/2019 07:54 AM Khalif Caraballo M.D., F.A.C.C. food and beverage outlets manager AW/ramiro cc: MARTIN LÓPEZ MD / / ING MACHINE TENDER documented in this encounter Plan of Treatment Not on file documented as of this encounter Visit Diagnoses Diagnosis Encounter for screening- Primary documented in this encounter Care Teams Recep Relationship Specialty Start Date End Date Martin López MD [address] [facility] [address] [place] [address] PCP - General 06/27/12 documented as of this encounter
--- OUTSIDE RECORDS SUMMARY | 2024-04-20 00:20 | XMS_ITS | Encounter Summary ---
Author Organization [facility] Address [address] [place] [address] Phone Care Team Providers Care Physician'S Assistant Name Role Phone Martin López MD Primary Care Provider Khalif Ca MD Unavailable [phone] Reason for Referral * (Routine) - Closed Specialty Diagnoses / Procedures Referred By Contac t Referred To Contact Diagnoses Aortic valve stenosis, etiology of cardiac valve disease unspecified Procedures Pulmonary Function Test -[facility] Adult PFT Lab- [facility]; Standard, Spirometry, Spirometry with Bronchodilator, DLCO, ABG, Airway Resistance; Spirometry, Spirometry w/bronchodilator, DLCO and Lung Volumes; Room Air ABG; Spirometry Tera Torre MD Phone: tel: fax: Referral ID Status Reason Start Date Expiration Date Visits Re quested Visits Authorized [id number] Closed 04/10/2019 10/19/2020 1 1 ER INSPECTOR Encounter Details Date Type Department Care Team (Late st Contact Info) Description 04/10/2019 Orders Only [facility] Cardiology [address] [facility] Medical Office Building [address] [place] [address] Tera Torre MD [facility] [place] [address] Aortic valve stenosis, etiology of cardiac valve disease unspecified (Primary Dx); Encounter for other preprocedural examination Social History Tobacco Use Types Packs/Day Years Used Date Smoking Tobacco: Never Smokeless Tobacco: Never Sex and Gender Information Value Date Recorded Sex Assigned at Not on file Legal Sex Male 9:13 PM CUTTER INSPECTOR Gender Identity Male 07/25/2023 3:40 PM CDT Sexual Orientation Straight 10/28/2019 9: 50 AM CDT documented as of this encounter Plan of Treatment Not on file documented as of this encounter Results * Pulmonary Function Test - (05/06/2019 3:15 PM CUTTER INSPECTOR) FVC PRED 4.09 0.05 - 9.[address] [facility] FVC PRE 4.68 0 - [address] [facility] FVC %PRE PRED 114 0 - 300 % [facility] FEV1 PRED 3.08 0.05 - 9.[address] [facility] FEV1 PRE 3.75 0 - [address] [facility] FEV1 %PRE PRED 122 0 - 300 % [facility] FEV1/FVC PRED 76 1 - 99 % [facility] FEV1/FVC PRE 80 0 - 12 % [facility] QQL73-79% PRED 2.29 0 - 12 L/sec [facility] BMM08-76% PRE 3.87 0 - 12 L/sec [facility] QVH58-41% %PRE PRED 169 0 - 300 % [facility] FEF75% PRED 0.60 0 - 300 L/sec [facility] FEF75% PRE 1.17 0 - 12 L/sec [facility] FEF75% %PRE PRED 194 % [facility] PEF PRED 8.04 0 - 18 L/sec [facility] PEF PRE 11.15 0 - 18 L/sec [facility] PEF %PRE PRED 139 0 - 300 % [facility] PIF PRE 5.09 0 - 18 L/sec [facility] FEV6 PRE 4.46 0 - 12 Liters [facility] FEV1/FEV6 PRE 84 0 - 12 % [facility] VC PRED 3.98 0.05 - 9.[address] [facility] VC PRE 4.72 0.05 - 9.99 Liters [facility] VC %PRE PRED 119 0 - 300 % [facility] TLC PRED 6.97 0.05 - 11.[address] [facility] TLC PRE 7.02 0.05 - 11.99 Liters [facility] TLC %PRE PRED 101 0 - 300 % [facility] RV PRED 2.49 0.05 - 9.99 Liters [facility] RV PRE 2.30 0.05 - 9.99 Liters [facility] RV %PRE PRED 92 0 - 300 % [facility] RV/TLC PRED 37 0 - 300 % [facility] RV/TLC PRE 33 0 - 300 % [facility] FRC N2 PRED 3.16 0.05 - 9.99 Liters [facility] FRC PL PRED 3.72 0.05 - 9.99 Liters [facility] FRC PL PRE 3.93 0.05 - 9.99 Liters [facility] FRC PL %PRE PRED 106 0 - 300 % [facility] ERV PRED 1.45 0.05 - 9.99 Liters [facility] ERV PRE 1.61 0.05 - 9.99 Liters [facility] ERV %PRE PRED 110 0 - 300 % [facility] IC PRE 3.09 0.05 - 9.99 Liters [facility] DLCO PRED 31.3 0.05 - 99.99 mL/mmHg/min [facility] DLCO PRE 25.9 mL/mmHg/min [facility] DLCO %PRE PRED 83 0 - 300 % [facility] DL ADJ PRED 31.3 1 - 2 mL/mmHg/min [facility] DL ADJ PRE 25.9 1 - 2 mL/mmHg/min [facility] DL ADJ %PRE PRED 83 0 - 300 % [facility] DLCO/VA PRED 4.60 mL/mHg/min/ L [facility] DLCO/VA PRE 4.36 mL/mHg/min/ L [facility] DLCO/VA %PRE PRED 95 % [facility] DL/VA ADJ PRED 3.61 mL/mHg/min/ L [facility] DL/VA ADJ %PRE PRED 121 % [facility] VA PRE 5.[address] [facility] RAW PRED 1.19 cmH2O/L/sec [facility] RAW PRE 1.49 cmH2O/L/sec [facility] RAW %PRE PRED 125 % [facility] GAW PRED 0.893 L/sec/cmH2O [facility] GAW PRE 0.673 L/sec/cmH2O [facility] GAW %PRE PRED 75 % [facility] SRAW PRED 4.44 cmH2O/L/s/L [facility] SRAW PRE 6.18 cmH2O/L/s/L [facility] SRAW %PRE PRED 139 % [facility] SGAW PRED 0.219 L/s/cmH2O/L [facility] SGAW PRE 0.162 L/s/cmH2O/L [facility] SGAW %PRE PRED 74 % [facility] pH POC 7.44 [facility] pCO2 POC 41.0 mmHg [facility] PO2 POC 93.0 mmHg [facility] HCO3(c) POC 27.0 meq/L [facility] BE(B) POC 2.6 [facility] A-aDO2 POC 5.5 mmHg [facility] Anatomical Region Laterality Modality PFT 05/06/2019 11:2 4 AM CUTTER INSPECTOR Narrative 05/07/2019 2:44 PM CUTTER INSPECTOR SEE PDF Tera Torre MD PFT ORDERABLES Final Result documented in this encounter Visit Diagnoses Diagnosis Aortic valve stenosis, etiology of cardiac valve disease unspecified- Primary Encounter for other preprocedural examination Aortic valve stenosis, etiology of cardiac valve disease unspecified documented in this encounter Care Teams Physician'S Assistant Relationship Specialty Start Date End Date Martin López MD [address] [place] [address] PCP - General 06/27/12 Khalif Ca MD [address] [place] [address] Referring Physician Cardiology 04/08/19 documented as of this encounter
--- OUTSIDE RECORDS SUMMARY | 2024-04-20 00:20 | XMS_ITS | Encounter Summary ---
Author Organization [facility] Address [address] [place] [address] Phone Care Team Providers Care Final Armature Tester Name Role Phone Martin López MD Primary Care Provider Khalif Ca MD Unavailable [phone] Reason for Referral * Cardiology (Routine) - Closed Specialty Diagnoses / Procedures Referred By Contac t Referred To Contact Cardiology Diagnoses Aortic valve stenosis, etiology of cardiac valve disease unspecified Khalif Ca MD [address] [place] [address] Phone: tel: fax: [facility] (All Locations) Referral ID Status Reason Start Date Expiration Date V isits Requested Visits Authorized [id number] Closed Specialty Services Required 04/08/2019 10/17/2020 99 99 Question Answer Please select the performing region: [facility] (All Locations) [167] # of visits: 1 Comments valve INAL BLOCK ASSEMBLER Encounter Details Date Type Department Care Team (Late st Contact Info) Description 04/08/2019 Orders Only [facility] Cardiology [facility] Medical Office Building [address] [place] [address] Khalif Ca MD [address] [place], [place] [id number] Aortic valve stenosis, etiology of cardiac valve disease unspecified (Primary Dx) Social History Tobacco Use Types Packs/Day Years Used Date Smoking Tobacco: Never Smokeless Tobacco: Never Sex and Gender Information Value Date Recorded Sex Assigned at Not on file Legal Sex Male 9:13 PM TERMINAL BLOCK ASSEMBLER Gender Identity Male 07/25/2023 3:40 PM CDT Sexual Orientation Straight 10/28/2019 9: 50 AM CDT documented as of this encounter Plan of Treatment Scheduled Referrals Name Type Priority Associated Diagnoses Orde r Schedule Ambulatory referral to Cardiology Outpatient Referral Routine Aortic valve stenosis, etiology of cardiac valve disease unspecified Expected: 04/22/2019 (Approximate), Expires: 04/08/2020 documented as of this encounter Visit Diagnoses Diagnosis Aortic valve stenosis, etiology of cardiac valve disease unspecified- Primary documented in this encounter Care Teams Final Armature Tester Relationship Specialty Start Date End Date Martin López MD [address] [address] PCP - General 06/27/12 Khalif Ca MD [address] [address] Referring Physician Cardiology 04/08/19 documented as of this encounter
--- OUTSIDE RECORDS SUMMARY | 2024-04-20 00:20 | XMS_ITS | Encounter Summary ---
Author Organization [facility] Address [address] [place] [address] Phone Care Team Providers Care Brickmason Contractor Name Role Phone Martin López MD Primary Care Provider Khalif Ca MD Unavailable Encounter Details Date Type Department Care Team (Late st Contact Info) Description 04/10/2019 Telephone [facility] Cardiology [address] [place] [address] 8th [place] [address] [place] [address] Tasha Jo RN Social History Tobacco Use Types Packs/Day Years Used Date Smoking Tobacco: Never Smokeless Tobacco: Never Sex and Gender Information Value Date Recorded Sex Assigned at Not on file Legal Sex Male 9:13 PM CANS VACUUM TESTER Gender Identity Male 07/25/2023 3:40 PM CDT Sexual Orientation Straight 10/28/2019 9: 50 AM CDT documented as of this encounter Miscellaneous Notes * Telephone Encounter - Tasha Jo, RN - 04/10/2019 3:48 PM CST Called pt appt made for VC on 05/06/2019 WC. Letter to follow to pt w appt info. VACUUM TESTER documented in this encounter Plan of Treatment Not on file documented as of this encounter Visit Diagnoses Not on filedocumented in this encounter Care Teams Brickmason Contractor Relationship Specialty Start Date End Date Martin López MD [address] [email or web address] [address] [place] [address] PCP - General 06/27/12 Khalif Ca MD [address] [facility] [[email or web address] [address] [place] [address] Referring Physician Cardiology 04/08/19 documented as of this encounter
--- OUTSIDE RECORDS SUMMARY | 2024-04-20 00:20 | XMS_ITS | Encounter Summary ---
Author Organization [facility] Address [address] [place] [address] Phone Care Team Providers Care Electrical Installation Supervisor Name Role Phone Martin López MD Primary Care Provider Khalif Ca MD Unavailable [phone] Encounter Details Date Type Department Care Team (Late st Contact Info) Description 04/10/2019 Telephone [facility] Surgery [facility] [place] [address] Luz Dykes RMA Social History Tobacco Use Types Packs/Day Years Used Date Smoking Tobacco: Never Smokeless Tobacco: Never Sex and Gender Information Value Date Recorded Sex Assigned at Not on file Legal Sex Male 9:13 PM MEDICAL REPRESENTATIVE Gender Identity Male 07/25/2023 3:40 PM CDT Sexual Orientation Straight 10/28/2019 9: 50 AM CDT documented as of this encounter Miscellaneous Notes * Telephone Encounter - Carmen Clinton - 04/10/2019 4:12 PM CST PT HAS BEEN SCHEDULED ONLY Carotid OPEN WAS 3 PM SCHEDULED IT. CAL REPRESENTATIVE * Telephone Encounter - Luz Dykes RMA - 04/10/2019 3:37 PM CST Enter//verify insurance and schedule the following VALVE appointments/tests in [facility] on April : Provider: Dr. Tera Gonzalez - NEW Card Valvular [facility] MOB3 at 1:30 - NEW Valv Clinic [facility] at 1:30 -- Referring MD for ANY NEW APPT: Khalif Ca -- Appointment Reason: Aortic Valve Stenosis - Full PFT with ABG in [facility] MOB 2, [facility]: 10:00 - Carotid Doppler at [facility] CDL: 11:30 ALWAYS ask for the reserved VALVE patient slots when scheduling tests. No need to call the patient. Add Echo @ 00:00a/p on Comment 1, if applicable, and list Appt Reason from above. CAL REPRESENTATIVE documented in this encounter Plan of Treatment Not on file documented as of this encounter Visit Diagnoses Not on filedocumented in this encounter Care Teams Electrical Installation Supervisor Relationship Specialty Start Date End Date Martin López MD [address] [facility] [address] [place] [address] PCP - General 06/27/12 Khalif Ca MD [address] [facility] [address] [place] [address] Referring Physician Cardiology 04/08/19 documented as of this encounter
--- OUTSIDE RECORDS SUMMARY | 2024-04-20 00:20 | XMS_ITS | Encounter Summary ---
Author Organization [facility] Address [address] [place] [address] Phone Care Team Providers Care Crew Person Name Role Phone Martin López MD Primary Care Provider Khalif Ca MD Unavailable [phone] Encounter Details Date Type Department Care Team (Late st Contact Info) Description 05/05/2019 Orders Only [facility] Cardiology [address] [facility] 8th [place] [address] [place] [address] Tasha Jo RN Social History Tobacco Use Types Packs/Day Years Used Date Smoking Tobacco: Never Smokeless Tobacco: Never Sex and Gender Information Value Date Recorded Sex Assigned at Not on file Legal Sex Male 9:13 PM TAPING FOREMAN Gender Identity Male 07/25/2023 3:40 PM CDT Sexual Orientation Straight 10/28/2019 9: 50 AM CDT documented as of this encounter Plan of Treatment Not on file documented as of this encounter Visit Diagnoses Not on filedocumented in this encounter Care Teams Crew Person Relationship Specialty Start Date End Date Martin López MD [address] [place] [address] PCP - General 06/27/12 Khalif Ca MD [address] [place] [address] Referring Physician Cardiology 04/08/19 documented as of this encounter
--- OUTSIDE RECORDS SUMMARY | 2024-04-20 00:20 | XMS_ITS | Encounter Summary ---
Author Organization [facility] Address [address] [place] [address] Phone Care Team Providers Care City Plant Supervisor Name Role Phone Martin López MD Primary Care Provider Khalif Ca MD Unavailable [phone] Encounter Details Date Type Department Care Team (Late st Contact Info) Description 05/05/2019 Orders Only [facility] Cardiology [address] [facility] 8th [place] [address] [place] [address] Tasha Jo RN Preop cardiovascular exam (Primary Dx) Social History Tobacco Use Types Packs/Day Years Used Date Smoking Tobacco: Never Smokeless Tobacco: Never Sex and Gender Information Value Date Recorded Sex Assigned at Not on file Legal Sex Male 9:13 PM AERIAL GUNNER Gender Identity Male 07/25/2023 3:40 PM CDT Sexual Orientation Straight 10/28/2019 9: 50 AM CDT documented as of this encounter Plan of Treatment Not on file documented as of this encounter Visit Diagnoses Diagnosis Preop cardiovascular exam- Primary Pre-operative cardiovascular examination documented in this encounter Care Teams City Plant Supervisor Relationship Specialty Start Date End Date Martin López MD [address] [facility] [address] [place] [address] PCP - General 06/27/12 Khalif Ca MD [address] [facility] [address] [place] [address] Referring Physician Cardiology 04/08/19 documented as of this encounter
--- OUTSIDE RECORDS SUMMARY | 2024-04-20 00:21 | XMS_ITS | Encounter Summary ---
Author Organization [facility] Care Team Providers Care Burner Hand Name Role Phone Martin López MD Primary Care Provider Encounter Details Date Type Department Care Team (Late st Contact Info) Description 04/02/2016 10:30 AM SURFBOARD MAKER - 04/02/2016 11:59 PM SURFBOARD MAKER Hospital Encounter [facility] Khalif Ca MD [address] [facility] [address] [place] [address] Social History Tobacco Use Types Packs/Day Years Used Date Smoking Tobacco: Never Assessed Sex and Gender Information Value Date Recorded Sex Assigned at Not on file Legal Sex Male 9:13 PM SURFBOARD MAKER Gender Identity Male 07/25/2023 3:40 PM [...] 1 tablet by mouth daily 03/31/2015 1 atorvastatin (LIPITOR) 10 mg tabletIndication s:hyperlipidemia Take 10 mg by mouth every morning 03/31/2015 1 azelastine 0.15 % (205.5 mcg) spray,non-aeroso lIndications:Sea jayshree Allergic Rhinitis Administer 1 spray into each nostril daily as needed 04/02/2016 2 benazepril (LOTENSIN) 5 mg tablet Take 5 mg by mouth daily 03/31/2015 1 documented as of this encounter Plan of Treatment Not on file documented as of this encounter Procedures Procedure Name Priority Date/Time Associated Diagnosis Comments TRANSTHORACIC ECHO (TTE) COMPLETE W DOPPLER/CF WO CONTRAST 04/02/2016 12:00 AM SURFBOARD MAKER documented in this encounter Results * Transthoracic Echo Complete W Doppler/CF WO Contrast (04/02/2016 12:00 AM SURFBOARD MAKER) Anatomical Region Laterality Modality Ultrasound Narrative 04/02/2016 12:00 AM SURFBOARD MAKER Ordered by an unspecified provider. Procedure Note ProviderYasmeen MD - 06/25/2018 Ordered by an unspecified provider. Historical Provider CV ECHO PROCEDURES Final Result documented in this encounter Visit Diagnoses Not on filedocumented in this encounter Care Teams Burner Hand Relationship Specialty Start Date End Date Martin óLpez MD [address] [facility] [address] [place] [address] PCP - General 06/27/12 documented as of this encounter
--- OUTSIDE RECORDS SUMMARY | 2024-04-20 00:21 | XMS_ITS | Encounter Summary ---
Author Organization [facility] Address [address] [place] [address] Phone Care Team Providers Care Commercial Lending Assistant Name Role Phone Martin López MD Primary Care Provider Reason for Referral * Diagnostic Imaging (Routine) - Closed Specialty Diagnoses / Procedures Referred By Contac t Referred To Contact Diagnoses Aortic valve stenosis, etiology of cardiac valve disease unspecified Aortic valve disease Procedures Transthoracic Echo Complete W Doppler/CF Khalif Caraballo MD Phone: tel: fax: [facility] (All Locations) Referral ID Status Reason Start Date Expiration Date Visits Re quested Visits Authorized [id number] Closed 04/14/2018 10/24/2019 1 1 TRIC FAN ASSEMBLER Reason for Visit * Reason Comments Follow-up Encounter Details Date Type Department Care Team (Late st Contact Info) Description 04/14/2018 9:15 AM ELECTRIC FAN ASSEMBLER Office Visit [facility] Cardiology [address] [place] [address] Medical Office Building [address] [place] [address] Khalif Caraballo MD [address] [place] [address] [address] [place], [place] [id number] Encounter for screening (Primary Dx); Aortic valve stenosis, etiology of cardiac valve disease unspecified; Aortic valve disease Social History Tobacco Use Types Packs/Day Years Used Date Smoking Tobacco: Never Smokeless Tobacco: Never Sex and Gender Information Value Date Recorded Sex Assigned at Not on file Legal Sex Male 9:13 PM ELECTRIC FAN ASSEMBLER Gender Identity Male 07/25/2023 3:40 PM CDT Sexual Orientation Straight 10/28/2019 9: 50 AM CDT documented as of this encounter Last Filed Vital Signs Vital Sign Reading Time Taken Comments Blood Pressure 136/83 04/14/2018 8:40 AM ELECTRIC FAN ASSEMBLER Pulse 84 04/14/2018 8:40 AM ELECTRIC FAN ASSEMBLER Temperature - - Respiratory Rate - - Oxygen Saturation 99% 04/14/2018 8:40 AM ELECTRIC FAN ASSEMBLER Inhaled Oxygen Concentration - - Weight 96.6 kg (213 lb) 04/14/2018 8:40 AM ELECTRIC FAN ASSEMBLER Height 176.5 cm (5' 9.5 ) 04/14/2018 8:40 AM ELECTRIC FAN ASSEMBLER Body Mass Index 31 04/14/2018 8:40 AM ELECTRIC FAN ASSEMBLER documented in this encounter Progress Notes * Khalif Caraballo MD - 04/14/2018 12:00 AM CST Date: 04/14/2018 Patient Name: MARIZOL GRIMALDO Date of : 1945 Date of Visit: 04/14/2018 Marizol Grimaldo is 72 years old, 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 He has no chest pain, exertional symptoms related to the valve aorticstenosis. No syncope. No chest discomfort. He is now actually doing better. He is walking on his treadmill for 45 minutes to an hour at 3 miles per hour, no problem. He has no dizziness, lightheadedness. No syncopal spells. No passing out. No chest discomfort related to exercise. In fact, he feels better and his ejection fraction has been upper limits of normal, high normal, strong, 65% ejection fraction and he has a valve area now of 1 six months ago and so we are going to repeat an echo just to make sure that is not changing, although he does not have enough symptoms at all to recommend valve replacement even if the valve was significantly obstructed. He is going on a cruise in May and I told him when he gets back with no problem. He has been doing very well. No symptoms at all andhis heart is high functional normal. PHYSICAL EXAMINATION: VITAL SIGNS: His blood pressure is 136/83, normal. Pulse 84, regular. O2 saturation 99%. Weight is up a few pounds to 218 from 213 so he really needs to watch his diet. He is going on a cruise in May, so that is not going to help. GENERAL: He is very pleasant, in no distress. He is less anxious and unless you say something that triggers a response. HEENT: Head, ears, eyes, nose, and throat are normal. He has a plethoric complexion. Wears glasses.Has little ear creases. Dentition is his own, good. NECK: He has a large neck. No carotid bruits. No jugular venous distention. CARDIOVASCULAR: He has normal sinus rhythm. He has a grade 3/6 murmur of aortic stenosis, which really has not changed. LUNGS: Clear with good auscultation. ABDOMEN: Soft, nontender. Liver is not enlarged. EXTREMITIES: He has no peripheral edema. No ecchymoses. He has essentially no arthritic changes in his upper extremities. ASSESSMENT AND PLAN: Overall he is doing well. He is stable, doing fine. He misunderstood me the last time, thought I wanted 8-1/2 hours sleep and I said no, studies years ago has shown that in a million people more than8-1/2 hours sleep is deleterious and no one understands why. The perfect amount is always 7 to 8. ELECTRONICALLY SIGNED - 04/14/2018 11:41 AM Khalif Caraballo M.D., F.A.C.C. consulting manager AW/ab cc: MARTIN LÓPEZ MD / / TRIC FAN ASSEMBLER documented in this encounter Plan of Treatment Not on file documented as of this encounter Results * TRANSTHORACIC ECHO (TTE) COMPLETE W DOPPLER/CF W CONTRAST (07/07/2018 10:18 AM CDT) Anatomical Region Laterality Modality Ultrasound 07/07/2018 9:30 AM CDT Narrative 07/08/2018 4:05 PM CDT Patient name: Marizol Grimaldo Date of test: 07/07/2018 Type of test: TTE /[facility] #: [id number] Date of : 1945 (M) Plate Grainer: SILVIA Denise Referring Physician: KHALIF CARABALLO MD Contrast Agent: 0.8 ml Optison Administered, (2.2 ml wasted). Contrast Administered by: Octavia Banks RN Supervised/Interpreted by: Haley Velasco MD Diagnosis: Location: [facility] Reason for test: MV Structure: Normal, ?MV Motion: Normal, ?? 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 AV Motion: restricted Aotic root: Normal, ?TM: Normal, ?? PV: Normal Valvular Vegetations: none seen, ?Mass/Thrombi: none seen RA: Normal Measurements: ?M-Mode ?Normal ? Aotic Root: ? <3.8 ? LA: ? <4.0 ? RV: ? <2.8 ? LV(ED): ? <5.7 ? LV(ES): ? Variable ?2D Linear Normal ? Aotic Root: 3.7 cm ?<4.0 ? Ao Indexed: 1.7 cm/M2 <2.0 ? LA: ? 3.1 cm ?<4.0 ? RV: ? 4.0 cm ?<4.2 ? LV(ED): ? 4.1 cm ?<5.9 ? LV(ES): ? 2.7 cm ?<4.0 ?2D Vol. ?? Normal ?Indexed ?? Indexed Normal RA: ? 11-39 ? LA: ? 66.0 ml ? 31.1 ml/M2 ?16-34 ? RV: ? <12.7 ? LV(ED): ? 132.0 ml ??62-150 ?62.2 ml/M2 ?<75 ? LV(ES): ? 37.0 ml ?? 21-61 ? 17.4 ml/M2 ?<32 ?3D Vol. ? Indexed Normal LV(ED): ?<75 ? LV(ES): ?<32 ? LV EF: 72 % ?? (Normal: >=52%) ?? LV Septum: 1.5 cm ?(Normal: <1.0 cm) Wall Motion Scoring (1=Normal 2=Hypo 3=Akinetic 4=Dyskin./Aneurysm 0=Not visualized) Parasternal Long [place]:MAS=1 BAS=1 MP=1 BP=1 Parasternal Short [place]:MAS=1 MS=1 CT=1 MP=1 ML=1 MA=1 Apical 4 Chambers:=1 MS=1 BS=1 BL=1 CT=1 AL=1 Apical 2 Chambers:AI=1 CT=1 BI=1 BA=1 MA=1 AA=1 LV Global Longitudinal Strain: -19% ??(Normal <-19%) RV Global Longitudinal Strain: LV Function: Normal LV Ejection Fraction, (EF=52-72%) RV Function: Normal Septal Motion: Normal Pericardial Effusion: none seen Atrial Septum: Normal DOPPLER/COLOR FOLOW DOPPLER RESULTS: Diastolic Function: Impaired Relaxation Tricuspid Valve: normal TV Pulmonic Valve: normal PV AV Regurgitation: No AR seen AV Stenosis: severe AV Area: 1.0 cm2 AV Pressure Gradient (mmHg): Mean: 41, Peak:75 MV Regurgitation: No MR seen MV Stenosis: no MS MV Area: ??cm2 MV Pressure Gradient (mmHg): Mean: 0 MV ERO: ??cm Regurg. Vol.: ??ml/beat Regurg. Frac.: ??% PA Pressure: 35 mmHg DOPPLER/COLOR FOLOW DOPPLER COMMENTS: No AR seen, No MR seen, severe , no MS, normal TV, normal PV. Diastolic function: Impaired Relaxation LVOT/Ao TVI ratio=30/88 CONTRAST: 0.8 ml Optison Administered, (2.2 ml wasted). SUMMARY: Reduced image quality. Grossly normal LV and RV size and systolic function. E/A reversal c/w impaired diastolic function. Thickened and calcified aortic valve with severe aortic stenosis (LENORA =1.0 cm2; LVOT/ Ao VTI =30/88; mean gradient =41 mmHg). Mild concentric LV hypertrophy. Normal Inferior vena cava. Confirmed on ??07/08/2018 - 16:05:38 by Haley Velasco MD By signing this report, the attending meter mechanic certifies that he or she has personally supervised and interpreted the echocardiogram and has reviewed and or edited and agrees with the written comments contained within the report. Procedure Note Haley Velasco MD - 07/08/2018 Patient name: Marizol Grimaldo Date of test: 07/07/2018 Type of test: TTE w/Doppler [facility] #: [id number] Date of : 1945 (M) Plate Grainer: SILVIA Denise Referring Physician: KHALIF CARABALLO MD Contrast Agent: 0.8 ml Optison Administered, (2.2 ml wasted). 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 Normal Indexed Indexed Normal RA: 11-39 LA: 66.0 ml 31.1 ml/M2 16-34 RV: <12.7 LV(ED): 132.0 ml 62-150 62.2 ml/M2 <75 LV(ES): 37.0 ml 21-61 17.4 ml/M2 <32 3D Vol. Indexed Normal LV(ED): <75 LV(ES): <32 LV EF: 72 % (Normal: >=52%) LV Septum: 1.5 cm (Normal: <1.0 cm) Wall Motion Scoring (1=Normal 2=Hypo 3=Akinetic 4=Dyskin./Aneurysm 0=Not visualized) Parasternal Long [place]:MAS=1 BAS=1 MP=1 BP=1 Parasternal Short [place]:MAS=1 MS=1 CT=1 MP=1 ML=1 MA=1 Apical 4 Chambers:=1 MS=1 BS=1 BL=1 CT=1 AL=1 Apical 2 Chambers:AI=1 CT=1 BI=1 BA=1 MA=1 AA=1 LV Global Longitudinal Strain: -19% (Normal <-19%) RV Global Longitudinal Strain: LV Function: Normal LV Ejection Fraction, (EF=52-72%) RV Function: Normal Septal Motion: Normal Pericardial Effusion: none seen Atrial Septum: Normal DOPPLER/COLOR FOLOW DOPPLER RESULTS: Diastolic Function: Impaired Relaxation Tricuspid Valve: normal TV Pulmonic Valve: normal PV AV Regurgitation: No AR seen AV Stenosis: severe AV Area: 1.0 cm2 AV Pressure Gradient (mmHg): Mean: 41, Peak:75 MV Regurgitation: No MR seen MV Stenosis: no MS MV Area: cm2 MV Pressure Gradient (mmHg): Mean: 0 MV ERO: cm Regurg. Vol.: ml/beat Regurg. Frac.: % PA Pressure: 35 mmHg DOPPLER/COLOR FOLOW DOPPLER COMMENTS: No AR seen, No MR seen, severe , no MS, normal TV, normal PV. Diastolic function: Impaired Relaxation LVOT/Ao TVI ratio=30/88 CONTRAST: 0.8 ml Optison Administered, (2.2 ml wasted). SUMMARY: Reduced image quality. Grossly normal LV and RV size and systolic function. E/A reversal c/w impaired diastolic function. Thickened and calcified aortic valve with severe aortic stenosis (LENORA =1.0 cm2; LVOT/ Ao VTI =30/88; mean gradient =41 mmHg). Mild concentric LV hypertrophy. Normal Inferior vena cava. Confirmed on 07/08/2018 - 16:05:38 by Haley Velasco MD By signing this report, the attending meter mechanic certifies that he or she has personally supervised and interpreted the echocardiogram and has reviewed and or edited and agrees with the written comments contained within the report. Khalif Caraballo MD CV ECHO PROCEDURES Final Result documented in this encounter Visit Diagnoses Diagnosis Encounter for screening- Primary Aortic valve stenosis, etiology of cardiac valve disease unspecified Aortic valve disease Aortic valve disorders Aortic valve stenosis, etiology of cardiac valve disease unspecified Aortic valve disease Aortic valve disorders documented in this encounter Historical Medications * This list may reflect changes made after this encounter. fluticasone (FLONASE ALLERGY RELIEF) 50 mcg/actuation nasal spray Administer 2 sprays into each nostril daily. 0 added in this encounter Care Teams Commercial Lending Assistant Relationship Specialty Start Date End Date Martin López MD [address] [place] [address] PCP - General 06/27/12 documented as of this encounter
--- OUTSIDE RECORDS SUMMARY | 2024-04-20 00:21 | XMS_ITS | Encounter Summary ---
Author Organization [facility] Address [address] [place] [address] Phone Care Team Providers Care Financial Supervisor Name Role Phone Martin López MD Primary Care Provider Encounter Details Date Type Department Care Team (Late st Contact Info) Description 09/19/2017 Orders Only [facility] Cardiology [facility] Medical Office Building [address] [place] [id number] Dalia Yu, WORKFORCE MANAGEMENT ANALYST Social History Tobacco Use Types Packs/Day Years Used Date Smoking Tobacco: Never Sex and Gender Information Value Date Recorded Sex Assigned at Not on file Legal Sex Male 9:13 PM TOPOGRAPHICAL SURVEYOR Gender Identity Male 07/25/2023 3:40 PM CDT Sexual Orientation Straight 10/28/2019 9: 50 AM CDT documented as of this encounter Plan of Treatment Not on file documented as of this encounter Visit Diagnoses Not on filedocumented in this encounter Historical Medications * This list may reflect changes made after this encounter. travoprost (TRAVATAN Z) 0.004 % drops Administer 1 drop into both eyes nightly 03/31/2015 montelukast (SINGULAIR) 10 mg tablet Take 1 tablet (10 mg total) by mouth nightly 04/02/2016 atorvastatin (LIPITOR) 10 mg tabletIndication s:hyperlipidemia Take 10 mg by mouth every morning 03/31/2015 1 benazepril (LOTENSIN) 5 mg tablet Take 5 mg by mouth daily 03/31/2015 1 azelastine 0.15 % (205.5 mcg) spray,non-aeroso lIndications:Sea jayshree Allergic Rhinitis Administer 1 spray into each nostril daily as needed 04/02/2016 2 aspirin 81 mg tablet Take 81 mg by mouth daily 1 amLODIPine (NORVASC) 10 mg tablet Take 1 tablet by mouth daily 03/31/2015 1 added in this encounter Care Teams Financial Supervisor Relationship Specialty Start Date End Date Martin López MD [address] [facility] [address] [place] [address] PCP - General 06/27/12 documented as of this encounter
--- OUTSIDE RECORDS SUMMARY | 2024-04-20 00:21 | XMS_ITS | Encounter Summary ---
Author Organization [facility] Facility Care Team Providers Care Oyster Sorter Name Role Phone Martin López MD Primary Care Provider Encounter Details Date Type Department Care Team (Late st Contact Info) Description 04/04/2015 3:54 PM CARE PROCESS MANAGER - 04/04/2015 4:00 PM CARE PROCESS MANAGER [facility] [address] [place] [address] Social History Tobacco Use Types Packs/Day Years Used Date Smoking Tobacco: Never Assessed Sex and Gender Information Value Date Recorded Sex Assigned at Not on file Legal Sex Male 9:13 PM CARE PROCESS MANAGER Gender Identity Male 07/25/2023 3:40 PM CDT Sexual Orientation Straight 10/28/2019 9: 50 AM CDT documented as of this encounter Medications at Time of Discharge travoprost (TRAVATAN Z) 0.004 % drops Administer [...] on filedocumented in this encounter Care Teams Oyster Sorter Relationship Specialty Start Date End Date Martin López MD [address] [facility] [address] [place] [address] PCP - General 06/27/12 documented as of this encounter
--- OUTSIDE RECORDS SUMMARY | 2024-04-20 00:21 | XMS_ITS | Encounter Summary ---
Author Organization [facility] Facility Care Team Providers Care Nanosystems Engineer Name Role Phone Martin López MD Primary Care Provider Encounter Details Date Type Department Care Team (Latest Contact Info) Description 03/31/2015 11:30 AM SHORT PIECE HANDLER - 03/31/2015 12:30 PM SHORT PIECE HANDLER Hospital [facility] Khalif Ca MD [address] [facility] [address] [place] [id number] Encounter for preprocedural cardiovascular examination; Supravalvular aortic stenosis; Gastrointestinal hemorrhage; Essential (primary) hypertension Social History Tobacco Use Types Packs/Day Years Used Date Smoking Tobacco: Never Assessed Sex and Gender Information Value Date Recorded Sex Assigned at Not on file Legal Sex Male 9:13 PM SHORT PIECE HANDLER Gender Identity Male 07/25/2023 3:40 PM CDT [...] Procedure Name Priority Date/Time Associated Diagnosis Comments BLOOD CELL COUNT (CBC), MORPHOLOGIC EXAM Routine 03/31/2015 11:40 AM SHORT PIECE HANDLER documented in this encounter Results * (ABNORMAL) Blood cell count (CBC), morphologic exam (03/31/2015 11:40 AM SHORT PIECE HANDLER) WBC 6.1 4.5 - 11.0 K/cumm HISTORICAL RESULTS RBC 5.02 4.50 - 6.20 M/cumm HISTORICAL RESULTS Hgb 14.4 13.0 - 17.0 g/dl HISTORICAL RESULTS Hct 42.8 39.0 - 52.0 % HISTORICAL RESULTS MCV 85.3 80.0 - 100.0 fl HISTORICAL RESULTS MCH 28.7 27.0 - 33.0 pg HISTORICAL RESULTS MCHC 33.6 32.0 - 36.0 g/dl HISTORICAL RESULTS Rdw 13.8 11.5 - 14.5 % HISTORICAL RESULTS Platelets 256 140 - 400 K/cumm HISTORICAL RESULTS MPV 11.0(H) 7.4 - 10.4 fl HISTORICAL RESULTS Neutrophils 75.1(H) 42.0 - 75.0 % HISTORICAL RESULTS Lymphocytes 11.0(L) 21.0 - 51.0 % HISTORICAL RESULTS Monos 10.4(H) 2.0 - 9.0 % HISTORICAL RESULTS Eosinophils 3.0 0.0 - 10.0 % HISTORICAL RESULTS Basophils 0.5 0.0 - 1.0 % HISTORICAL RESULTS Neutrophils, abs 4.6 1.0 - 6.6 K/cumm HISTORICAL RESULTS Lymphocytes, abs 0.7(L) 1.2 - 3.3 K/cumm HISTORICAL RESULTS Monocytes, absolute 0.6 0.2 - 1.2 K/cumm HISTORICAL RESULTS Eosinophils, abs 0.2 0.0 - 0.5 K/cumm HISTORICAL RESULTS Basophils, abs 0.0 0.0 - 0.2 K/cumm HISTORICAL RESULTS Blood specimen (specimen) 03/31/2015 11:40 AM SHORT PIECE HANDLER us Khalif Ca MD LAB BLOOD ORDERABLES Final Resu lt HISTORICAL RESULTS documented in this encounter Visit Diagnoses Diagnosis Encounter for preprocedural cardiovascular examination 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
--- OUTSIDE RECORDS SUMMARY | 2024-04-20 00:21 | XMS_ITS | Encounter Summary ---
Author Organization [facility] Address [address] [place] [address] Phone Care Team Providers Care Transit Proof Machine Operator Name Role Phone Martin López MD Primary Care Provider Reason for Visit * Diagnostic Imaging (Routine) - Closed Specialty Diagnoses / Procedures Referred By Contac t Referred To Contact Diagnoses Aortic valve stenosis, etiology of cardiac valve disease unspecified Aortic valve disease Procedures Transthoracic Echo Complete W Doppler/CF Khalif Caraballo MD Phone: tel: fax: [facility] (All Locations) Referral ID Status Reason Start Date Expiration Date Visits Re quested Visits Authorized [id number] Closed 04/14/2018 10/24/2019 1 1 Encounter Details Date Type Department Care Team (Latest Contact Info) Description 07/07/2018 9:30 AM CDT Ancillary Procedure [facility] [address] [place] [address] Khalif Caraballo MD [address] [place] [address] Aortic valve stenosis, etiology of cardiac valve disease unspecified; Aortic valve disease Discharge Disposition: Discharge to home or self care Social History Tobacco Use Types Packs/Day Years Used Date Smoking Tobacco: Never Smokeless Tobacco: Never Sex and Gender Information Value Date Recorded Sex Assigned at Not on file Legal Sex Male 9:13 PM SPORTS MEDICINE SPECIALIST Gender Identity Male 07/25/2023 3:40 PM [...] (TTE) COMPLETE W DOPPLER/CF W CONTRAST Routine 07/07/2018 10:18 AM CDT Aortic valve stenosis, etiology of cardiac valve disease unspecified Aortic valve disease documented in this encounter Results * TRANSTHORACIC ECHO (TTE) COMPLETE W DOPPLER/CF W CONTRAST (07/07/2018 10:18 AM CDT) Anatomical Region Laterality Modality Ultrasound 07/07/2018 9:30 AM CDT Narrative 07/08/2018 4:05 PM CDT Patient name: Nathan Wagner Date of test: 07/07/2018 Type of test: TTE w/Doppler [facility] #: [id number] Date of : 1945 (M) Warehouse Receiving Clerk: SILVIA Denise Referring Physician: KHALIF CARABALLO MD Contrast Agent: 0.8 ml Optison Administered, (2.2 ml wasted). Contrast Administered by: Octavia Banks RN Supervised/Interpreted by: Haley Velasco MD Diagnosis: Location: [facility] Reason for test: MV Structure: Normal, ?MV [...] 2=Hypo 3=Akinetic 4=Dyskin./Aneurysm 0=Not visualized) Parasternal Long [place]:MAS=1 BAS=1 MP=1 BP=1 Parasternal Short [place]:MAS=1 MS=1 IN=1 MP=1 ML=1 MA=1 Apical 4 Chambers:=1 MS=1 BS=1 BL=1 IN=1 AL=1 Apical 2 Chambers:AI=1 IN=1 BI=1 BA=1 MA=1 AA=1 LV Global Longitudinal [...] PV. Diastolic function: Impaired Relaxation LVOT/Ao TVI ratio=30/ CONTRAST: 0.8 ml Optison Administered, (2.2 ml [...] MD By signing this report, the attending chief diversity officer certifies that he or she has personally supervised and interpreted the echocardiogram and has reviewed and or edited and agrees with the written comments contained within the report. Procedure Note Haley Velasco MD - 07/08/2018 Patient name: Nathan Wagner Date of test: 07/07/2018 Type of test: TTE w/[facility] #: [id number] Date of : 1945 (M) Warehouse Receiving Clerk: SILVIA Denise Referring Physician: KHALIF CARABALLO MD Contrast Agent: 0.8 ml Optison Administered, (2.2 ml wasted). Contrast Administered by: Octavia Banks RN Supervised/Interpreted by: Haley Velasco MD Diagnosis: Location: [facility] Reason for test: MV Structure: Normal, MV [...] 2=Hypo 3=Akinetic 4=Dyskin./Aneurysm 0=Not visualized) Parasternal Long [place]:MAS=1 BAS=1 MP=1 BP=1 Parasternal Short [place]:MAS=1 MS=1 IN=1 MP=1 ML=1 MA=1 Apical 4 Chambers:=1 MS=1 BS=1 BL=1 IN=1 AL=1 Apical 2 Chambers:AI=1 IN=1 BI=1 BA=1 MA=1 AA=1 LV Global Longitudinal [...] MD By signing this report, the attending chief diversity officer certifies that he or she has personally supervised and interpreted the echocardiogram and has reviewed and or edited and agrees with the written comments contained within the report. Result [facility] Khalif Caraballo MD CV ECHO PROCEDURES Final Result documented in this encounter Visit Diagnoses Diagnosis Aortic valve stenosis, etiology of cardiac valve disease unspecified Aortic valve disease Aortic valve disorders documented in this encounter Administered Medications Inactive Administered Medications - up to 3 most recent administrations Medication Order MAR Action Action Date Dose Rate Site perflutren protein-a (VestorSON) 3 mL in sodium chloride 0.9% 8 mL syringe 1-8 mL, intravenous, Once in imaging, contrast, Starting on 07/07/18 at 0947, For 1 dose, Intra-Procedure (CV) Given 07/07/2018 9:58 AM CDT 2 mL documented in this encounter Care Teams Transit Proof Machine Operator Relationship Specialty Start Date End Date Martin López MD [address] [facility] [address] [place] [address] PCP - General 06/27/12 documented as of this encounter
--- OUTSIDE RECORDS SUMMARY | 2024-04-20 00:21 | XMS_ITS | Encounter Summary ---
Author Organization [facility] Facility Care Team Providers Care Caustic Operator Name Role Phone Martin López MD Primary Care Provider Encounter Details Date Type Department Care Team (Late st Contact Info) Description 10/07/2015 3:42 PM CDT - 10/07/2015 11:59 PM CDT Hospital Encounter [facility] Khalif Ca MD [address] [place] [address] Social History Tobacco Use Types Packs/Day Years Used Date Smoking Tobacco: Never Assessed Sex and Gender Information Value Date Recorded Sex Assigned at Not on file Legal Sex Male 9:13 PM NEWSPAPER PRESS OPERATOR APPRENTICE Gender Identity Male 07/25/2023 3:40 PM CDT [...] ECHO (TTE) COMPLETE W DOPPLER/CF WO CONTRAST 10/07/2015 12:00 AM CDT documented in this encounter Results * Transthoracic Echo Complete W Doppler/CF WO Contrast (10/07/2015 12:00 AM CDT) Anatomical Region Laterality Modality Ultrasound Narrative 10/07/2015 12:00 AM CDT Ordered by an unspecified provider. Procedure Note Provider, Yasmeen, - 06/25/2018 Ordered by an unspecified provider. Historical Provider CV ECHO PROCEDURES Final Result documented in this encounter Visit Diagnoses Not on filedocumented in this encounter Care Teams Caustic Operator Relationship Specialty Start Date End Date Martin López MD [address] [facility] [address] [place] [address] PCP - General 06/27/12 documented as of this encounter
--- OUTSIDE RECORDS SUMMARY | 2024-04-20 00:21 | XMS_ITS | Encounter Summary ---
Author Organization [facility] Address [address] [place] [address] Phone Care Team Providers Care Drum Sander Setter Name Role Phone Martin López MD Primary Care Provider Reason for Visit * (Routine) - Closed Specialty Diagnoses / Procedures Referred By Contac t Referred To Contact Diagnoses Aortic valve stenosis, acquired Procedures Transthoracic Echo Complete W Doppler/CF Khalif Caraballo MD Phone: tel: fax: [facility] (All Locations) Referral ID Status Reason Start Date Expiration Date Visits Re quested Visits Authorized [id number] Closed 08/30/2017 02/26/2018 1 1 Encounter Details Date Type Department Care Team (Latest Contact Info) Description 10/07/2017 10:30 AM CDT Ancillary Procedure [place] [id number] [facility] [address] [place] [address] Khalif Caraballo MD [address] [place] [address] Aortic valve stenosis, acquired Discharge Disposition: Discharge to home or self care Social History Tobacco Use Types Packs/Day Years Used Date Smoking Tobacco: Never Sex and Gender Information Value Date Recorded Sex Assigned at Not on file Legal Sex Male 9:13 PM PARALEGAL SPECIALIST Gender Identity Male 07/25/2023 3:40 PM [...] (TTE) COMPLETE W DOPPLER/CF W CONTRAST Routine 10/07/2017 10:47 AM CDT Aortic valve stenosis, acquired documented in this encounter Results * TRANSTHORACIC ECHO (TTE) COMPLETE W DOPPLER/CF W CONTRAST (10/07/2017 10:47 AM CDT) Anatomical Region Laterality Modality Ultrasound 10/07/2017 10:3 0 AM CDT Narrative 10/08/2017 12:44 PM CDT Patient name: Nathan Wagner Date of test: 10/07/2017 Type of test: [facility] w/Doppler [facility] #: [id number] Date of : 1945 (M) Shag Truck Driver: Sonya Guadalupe RDMS, RVT, RDCS Referring Physician: KHALIF CARABALLO MD Contrast Agent: 0.8 ml Optison Administered, (2.2 ml wasted). Contrast Administered by: Octavia Banks RN Supervised/Interpreted by: Kyle Maya MD Diagnosis: Location: [facility] Reason for test: aortic stenosis MV Structure: Normal, ?MV Motion: Normal, ?? [...] Variable ?2D Linear Normal ? Aotic Root: 1.6 cm/M2 <2.0 ? LA: ? 3.8 cm ?<4.0 ? RV: ? 4.0 cm ?<4.2 ? LV(ED): ? 5.1 cm ?<5.9 ? LV(ES): ? 3.3 cm ?<4.0 ?2D Vol. ?? Normal ?Indexed ?? Indexed Normal RA: ? 45.0 ml ? 21.3 ml/M2 ?11-39 ? LA: ? 92.0 ml ? 43.4 ml/M2 ?16-34 ? RV: ? <12.7 ? LV(ED): ? 129.0 ml ??62-150 ?60.9 ml/M2 ?<75 ? LV(ES): ? 44.0 ml ?? 21-61 ? 20.8 ml/M2 ?<32 ?3D Vol. ? Indexed Normal LV(ED): ?<75 ? LV(ES): ?<32 ? LV EF: 66 % ?? (Normal: >=52%) ?? LV Septum: 1.1 cm ?(Normal: <1.0 cm) Wall Motion Scoring (1=Normal 2=Hypo 3=Akinetic 4=Dyskin./Aneurysm 0=Not visualized) Parasternal Long Crewe:MAS=1 BAS=1 MP=1 BP=1 Parasternal Short [place]we:MAS=1 MS=1 DE=1 MP=1 ML=1 MA=1 Apical 4 Chambers:=1 MS=1 BS=1 BL=1 DE=1 AL=1 Apical 2 Chambers:AI=1 DE=1 BI=1 BA=1 MA=1 AA=1 LV Global Longitudinal Strain: -22.2% ??(Normal <-19%) RV Global Longitudinal Strain: 0% ??(Normal <-19%) LV Function: Normal LV Ejection Fraction, (EF=52-72%) RV Function: Normal Septal Motion: Normal Pericardial Effusion: none seen Atrial Septum: Normal DOPPLER/COLOR FOLOW DOPPLER RESULTS: Diastolic Function: Grade I, altered relax. w/N. LA pres. Tricuspid Valve: normal TV Pulmonic Valve: normal PV AV Regurgitation: No AR seen AV Stenosis: moderate AV Area: 1.0 cm2 AV Pressure Gradient (mmHg): Mean: 29, Peak:70 MV Regurgitation: Mild MR MV Stenosis: no MS MV Area: ??cm2 MV Pressure Gradient (mmHg): Mean: 0 MV ERO: ??cm Regurg. Vol.: ??ml/beat Regurg. Frac.: ??% PA Pressure: ??mmHg DOPPLER/COLOR FOLOW DOPPLER COMMENTS: No AR seen, Mild MR, moderate , no MS, normal TV, normal PV. Diastolic function: Grade I, altered relax. w/N. LA pres. LVOTd=2.0 cm; TVI=/=0.31; jet 3.5 m/s CONTRAST: 0.8 ml Optison Administered, (2.2 ml wasted). SUMMARY: -Moderate Aortic Stenosis, with LENORA 0.97 cm2 or 0.46 cm2/M2, dimensionles ratio=0.46; severity appears unchanged from Mar 2017; LA is moderately dilated. Normal RV cavity size. LV cavity size is normal. Normal LV wall thickness/mass. Normal aorta. Grade I Diastolic LV dysfunction, characterized by altered relaxation with normal mean LA pressure. Mild Mitral Regurgitation. Normal LV Ejection Fraction ??66 ??%. Normal global LV longitudinal function/strain pattern. Confirmed on ??10/08/2017 - 12:44:57 by Kyle Maya MD By signing this report, the attending head host/hostess certifies that he or she has personally supervised and interpreted the echocardiogram and has reviewed and or edited and agrees with the written comments contained within the report. Procedure Note Kyle Maya MD - 10/08/2017 Patient name: Nathan Wagner Date of test: 10/07/2017 Type of test: TTE /[facility] #: [id number] Date of : 1945 (M) Shag Truck Driver: Sonya Guadalupe RDMS, RVT, RDCS Referring Physician: KHALIF CARABALLO MD Contrast Agent: 0.8 ml Optison Administered, (2.2 ml wasted). Contrast Administered by: Octavia Banks, TREV Supervised/Interpreted by: Kyle Maya MD Diagnosis: Location: [facility] Reason for test: aortic stenosis MV Structure: Normal, MV Motion: Normal, Mitral Annulus: Normal AV Structure: tricuspid and is stenotic, AV Motion: restricted Aotic root: Normal, TM: Normal, PV: Normal Valvular Vegetations: none seen, Mass/Thrombi: none seen RA: Normal Measurements: M-Mode Normal Aotic Root: <3.8 LA: <4.0 RV: <2.8 LV(ED): <5.7 LV(ES): Variable 2D Linear Normal Aotic Root: 1.6 cm/M2 <2.0 LA: 3.8 cm <4.0 RV: 4.0 cm <4.2 LV(ED): 5.1 cm <5.9 LV(ES): 3.3 cm <4.0 2D Vol. Normal Indexed Indexed Normal RA: 45.0 ml 21.3 ml/M2 11-39 LA: 92.0 ml 43.4 ml/M2 16-34 RV: <12.7 LV(ED): 129.0 ml 62-150 60.9 ml/M2 <75 LV(ES): 44.0 ml 21-61 20.8 ml/M2 <32 3D Vol. Indexed Normal LV(ED): <75 LV(ES): <32 LV EF: 66 % (Normal: >=52%) LV Septum: 1.1 cm (Normal: <1.0 cm) Wall Motion Scoring (1=Normal 2=Hypo 3=Akinetic 4=Dyskin./Aneurysm 0=Not visualized) Parasternal Long Crewe:MAS=1 BAS=1 MP=1 BP=1 Parasternal Short [place]we:MAS=1 MS=1 DE=1 MP=1 ML=1 MA=1 Apical 4 Chambers:=1 MS=1 BS=1 BL=1 DE=1 AL=1 Apical 2 Chambers:AI=1 DE=1 BI=1 BA=1 MA=1 AA=1 LV Global Longitudinal Strain: -22.2% (Normal <-19%) RV Global Longitudinal Strain: 0% (Normal <-19%) LV Function: Normal LV Ejection Fraction, (EF=52-72%) RV Function: Normal Septal Motion: Normal Pericardial Effusion: none seen Atrial Septum: Normal DOPPLER/COLOR FOLOW DOPPLER RESULTS: Diastolic Function: Grade I, altered relax. w/N. LA pres. Tricuspid Valve: normal TV Pulmonic Valve: normal PV AV Regurgitation: No AR seen AV Stenosis: moderate AV Area: 1.0 cm2 AV Pressure Gradient (mmHg): Mean: 29, Peak:70 MV Regurgitation: Mild MR MV Stenosis: no MS MV Area: cm2 MV Pressure Gradient (mmHg): Mean: 0 MV ERO: cm Regurg. Vol.: ml/beat Regurg. Frac.: % PA Pressure: mmHg DOPPLER/COLOR FOLOW DOPPLER COMMENTS: No AR seen, Mild MR, moderate , no MS, normal TV, normal PV. Diastolic function: Grade I, altered relax. w/N. LA pres. LVOTd=2.0 cm; TVI=25/79=0.31; jet 3.5 m/s CONTRAST: 0.8 ml Optison Administered, (2.2 ml wasted). SUMMARY: -Moderate Aortic Stenosis, with LENORA 0.97 cm2 or 0.46 cm2/M2, dimensionles ratio=0.46; severity appears unchanged from Mar 2017; LA is moderately dilated. Normal RV cavity size. LV cavity size is normal. Normal LV wall thickness/mass. Normal aorta. Grade I Diastolic LV dysfunction, characterized by altered relaxation with normal mean LA pressure. Mild Mitral Regurgitation. Normal LV Ejection Fraction 66 %. Normal global LV longitudinal function/strain pattern. Confirmed on 10/08/2017 - 12:44:57 by Kyle Maya MD By signing this report, the attending head host/hostess certifies that he or she has personally supervised and interpreted the echocardiogram and has reviewed and or edited and agrees with the written comments contained within the report. Khalif Caraballo MD CV ECHO PROCEDURES Final Result documented in this encounter Visit Diagnoses Diagnosis Aortic valve stenosis, acquired Aortic valve disorders documented in this encounter Administered Medications Inactive Administered Medications - up to 3 most recent administrations Medication Order MAR Action Action Date Dose Rate Site perflutren protein-a (OPTISON) 3 mL in sodium chloride 0.9% 8 mL syringe 1-8 mL, intravenous, Once in imaging, contrast, Starting on 10/07/17 at 1033, For 1 dose, Intra-Procedure (CV) Given 10/07/2017 10:41 AM CDT 2 mL documented in this encounter Care Teams Drum Sander Setter Relationship Specialty Start Date End Date Martin López MD [address] [place] [address] PCP - General 06/27/12 documented as of this encounter
--- OUTSIDE RECORDS SUMMARY | 2024-04-20 00:21 | XMS_ITS | Encounter Summary ---
Author Organization [facility] Healthcare Address [address] [place] [address] Care Team Providers Care Color Receiver Name Role Phone Martin López MD Primary Care Provider Encounter Details Date Type Department Care Team (Latest Contact Info) Description 04/15/2017 1:52 PM FISH PROCESSING SUPERVISOR - 04/15/2017 11:59 PM FISH PROCESSING SUPERVISOR Hospital Encounter [facility] [phone] Khalif Ca MD [address] [place] [address] Discharge Disposition: Discharge to home or self care Social History Tobacco Use Types Packs/Day Years Used Date Smoking Tobacco: Never Sex and Gender Information Value Date Recorded Sex Assigned at Not on file Legal Sex Male 9:13 PM FISH PROCESSING SUPERVISOR Gender Identity Male 07/25/2023 3:40 PM [...] 03/31/2015 1 documented as of this encounter Discharge Disposition Disposition Code Departure Means Destination Discharge to home or self care documented in this encounter Plan of Treatment Not on file documented as of this encounter Procedures Procedure Name Priority Date/Time Associated Diagnosis Comments VLWU CAROTID DUPLEX SCAN COMPLETE BILATERAL 04/15/2017 documented in this encounter Results * VLWU CAROTID DUPLEX SCAN COMPLETE BILATERAL (04/15/2017) Anatomical Region Laterality Modality Vascular Bilateral Ultrasound us Provider Scanning CV VASCULAR PROCEDURES Final R esult documented in this encounter Visit Diagnoses Not on filedocumented in this encounter Care Teams Color Receiver Relationship Specialty Start Date End Date Martin López MD [address] [email or web address] [address] [place] [address] PCP - General 06/27/12 documented as of this encounter
--- OUTSIDE RECORDS SUMMARY | 2024-04-20 00:21 | XMS_ITS | Encounter Summary ---
Author Organization [facility] Address [address] [place] [address] Phone Care Team Providers Care Steward/Stewardess Railroad Dining Car Name Role Phone Martin López MD Primary Care Provider Reason for Referral * Cardiology (Routine) - Closed Specialty Diagnoses / Procedures Referred By Contac t Referred To Contact Diagnoses Encounter for screening Aortic valve stenosis, etiology of cardiac valve disease unspecified Procedures Transthoracic Echo Complete W Doppler/CF Khalif Caraballo MD Phone: tel: fax: [facility] Referral ID Status Reason Start Date Expiration Date Visits Re quested Visits Authorized [id number] Closed 10/13/2018 04/23/2020 1 1 Reason for Visit * Reason Comments Follow-up Encounter Details Date Type Department Care Team (Late st Contact Info) Description 10/13/2018 10:00 AM CDT Office Visit [facility] Cardiology [address] [place] [address] Medical Office Building [address] [place] [address] Khalif Caraballo MD [address] [place] [address] [address] [place], [place] [id number] Aortic valve stenosis, etiology of cardiac valve disease unspecified (Primary Dx); Encounter for screening Social History Tobacco Use Types Packs/Day Years Used Date Smoking Tobacco: Never Smokeless Tobacco: Never Sex and Gender Information Value Date Recorded Sex Assigned at Not on file Legal Sex Male 9:13 PM REGULATORY PRODUCT MANAGER Gender Identity Male 07/25/2023 3:40 PM CDT Sexual Orientation Straight 10/28/2019 9: 50 AM CDT documented as of this encounter Last Filed Vital Signs Vital Sign Reading Time Taken Comments Blood Pressure 143/84 10/13/2018 9:46 AM CDT Pulse 81 10/13/2018 9:46 AM CDT Temperature - - Respiratory Rate - - Oxygen Saturation 98% 10/13/2018 9:46 AM CDT Inhaled Oxygen Concentration - - Weight 98 kg (216 lb) 10/13/2018 9:46 AM CDT Height 176.5 cm (5' 9.5 ) 10/13/2018 9:46 AM CDT Body Mass Index 31.44 10/13/2018 9:46 AM CDT documented in this encounter Progress Notes * Khalif Caraballo MD - 10/13/2018 12:00 AM CDT Date: 10/13/2018 Patient Name: MARIZOL GRIMALDO Date of : 1945 Date of Visit: 10/13/2018 HISTORY OF PRESENT ILLNESS: 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 He has been entirely asymptomatic. He is on the treadmill close to 50 minutes 5 times a week probably. He is staying at a level that he is breathing just slightly heavier thannormal, but talking comfortably. He is certainly not pushing it. We do not want him to either. He has had no change in his endurance or exercise threshold. No dizziness, lightheadedness. No syncopal or presyncopal symptoms at all, and he has no chest discomfort. No heaviness, tightness, pressure. He also plays golf, but none of these have really associated with any change management consultant the last few years.His ejection fraction was high normal, in fact higher than normal this time, and his aortic valve area was the same as last time, 1, but his gradient was higher. It was read as severe this time but with the same gradient. He is also getting 7 to 8 hours sleep a night. His ejection fraction on the echo done 07/07/2018 was 72%, higher than normal, and the valve area was 1. His mean pressure gradient was 41 and peak was 75. PHYSICAL EXAMINATION: VITAL SIGNS: Has been stable, doing well. His blood pressure is 140/84. Pulse 80 and regular, O2 saturation 99% on room air. Weight is 216. HEENT: Head, ears, eyes, nose, and throat are normal. His eyes are a little bloodshot today. He wears glasses. He has little ear creases. Nice smile. Good color. Dentition is good. NECK: He has just kind of a large neck. His says he has no symptoms suggestive of sleep apnea.We are always concerned when we see a large neck. CARDIOVASCULAR: He has a grade 3-4 over 6 murmur of aortic stenosis. It radiates to the carotids. ABDOMEN: Soft, nontender. Liver is not enlarged. EXTREMITIES: He has minimal arthritic changes in his upper extremities. SKIN: Turgor is very good. No ecchymoses, and he still has good hair growth in his legs. Good circulation therefore, and he has no peripheral edema. ASSESSMENT AND PLAN: He is stable, doing well. We are going to see him again in 6 months. We will get an echo again to make sure there is no change. MEDICATIONS: 1. Singulair for allergies. 2. Amlodipine 10 for hypertension. 3. Atorvastatin 10 for hyperlipidemia. 4. Benazepril 5 mg. 5. Aspirin 81 mg. 6. Flonase inhaler as needed. ELECTRONICALLY SIGNED - 10/13/2018 12:28 PM Khalif Caraballo M.D., F.A.C.C. industrial engineering technician AW/ramiro cc: MARTIN LÓPEZ MD / / documented in this encounter Plan of Treatment Not on file documented as of this encounter Results * TRANSTHORACIC ECHO (TTE) COMPLETE W DOPPLER/CF W CONTRAST (04/07/2019 10:32 AM REGULATORY PRODUCT MANAGER) Anatomical Region Laterality Modality Ultrasound 04/07/2019 9:00 AM REGULATORY PRODUCT MANAGER Narrative 04/07/2019 12:24 PM REGULATORY PRODUCT MANAGER Patient name: Marizol Grimaldo Date of test: 04/07/2019 Type of test: TTE w/[facility]ly [facility] #: [id number] Date of : 1945 (M) Dev Ops Engineer: Alejandra Diaz [facility] Referring Physician: KHALIF CARABALLO MD Contrast Agent: 1.5 ml Optison Administered, (1.5 ml wasted). Contrast Administered by: Mildred Washington RN Supervised/Interpreted by: Kyle Maya MD Diagnosis: Location: [facility] Reason for test: MV Structure: Normal, [...] 2=Hypo 3=Akinetic 4=Dyskin./Aneurysm 0=Not visualized) Parasternal Long [place]:MAS=1 BAS=1 MP=1 BP=1 Parasternal Short [place]:MAS=1 MS=1 UT=1 MP=1 ML=1 MA=1 Apical 4 Chambers:=1 MS=1 BS=1 BL=1 UT=1 AL=1 Apical 2 Chambers:AI=1 UT=1 BI=1 BA=1 MA=1 AA=1 LV Global Longitudinal [...] MD By signing this report, the attending acting teacher certifies that he or she has personally supervised and interpreted the echocardiogram and has reviewed and or edited and agrees with the written comments contained within the report. Procedure Note Kyle Maya MD - 04/07/2019 Patient name: Marizol Grimaldo Date of test: 04/07/2019 Type of test: TTE w/Doppler [facility] #: [id number] Date of : 1945 (M) Dev Ops Engineer: Alejandra Diaz [facility] Referring Physician: KHALIF CARABALLO MD Contrast Agent: 1.5 ml Optison Administered, (1.5 ml wasted). Contrast Administered by: Mildred Washington RN Supervised/Interpreted by: Kyle Maya MD Diagnosis: Location: [facility] Reason for test: MV Structure: Normal, MV [...] 2=Hypo 3=Akinetic 4=Dyskin./Aneurysm 0=Not visualized) Parasternal Long [place]:MAS=1 BAS=1 MP=1 BP=1 Parasternal Short [place]:MAS=1 MS=1 UT=1 MP=1 ML=1 MA=1 Apical 4 Chambers:=1 MS=1 BS=1 BL=1 UT=1 AL=1 Apical 2 Chambers:AI=1 UT=1 BI=1 BA=1 MA=1 AA=1 LV Global Longitudinal [...] MD By signing this report, the attending acting teacher certifies that he or she has personally supervised and interpreted the echocardiogram and has reviewed and or edited and agrees with the written comments contained within the report. Result [facility] Khalif Caraballo MD CV ECHO PROCEDURES Final Result documented in this encounter Visit Diagnoses Diagnosis Aortic valve stenosis, etiology of cardiac valve disease unspecified- Primary Encounter for screening Encounter for screening Aortic valve stenosis, etiology of cardiac valve disease unspecified documented in this encounter Care Teams Steward/Stewardess Railroad Dining Car Relationship Specialty Start Date End Date Martin López MD [address] [place] [address] PCP - General 06/27/12 documented as of this encounter
--- OUTSIDE RECORDS SUMMARY | 2024-04-20 00:21 | XMS_ITS | Encounter Summary ---
Author Organization [facility] Address [address] [place] [address] Phone Care Team Providers Care Gallery Intern Name Role Phone Martin López MD Primary Care Provider Reason for Visit * Reason Comments Follow-up Encounter Details Date Type Department Care Team (Late st Contact Info) Description 10/10/2017 11:15 AM CDT Office Visit [facility] Cardiology [facility] Medical Office Building [address] [place] [address] Khalif Ca MD [facility] [address] [place] [address] Encounter for screening (Primary Dx) Social History Tobacco Use Types Packs/Day Years Used Date Smoking Tobacco: Never Smokeless Tobacco: Never Sex and Gender Information Value Date Recorded Sex Assigned at Not on file Legal Sex Male 9:13 PM 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 HAND Gender Identity Male 07/25/2023 3:40 PM CDT Sexual Orientation Straight 10/28/2019 9: 50 AM CDT documented as of this encounter Last Filed Vital Signs Vital Sign Reading Time Taken Comments Blood Pressure 135/81 10/10/2017 10:53 AM CDT Pulse 77 10/10/2017 10:53 AM CDT Temperature - - Respiratory Rate - - Oxygen Saturation 98% 10/10/2017 10:53 AM CDT Inhaled Oxygen Concentration - - Weight 94.6 kg (208 lb 8 oz) 10/10/2017 10:53 AM CDT Height 176.5 cm (5' 9.5 ) 10/10/2017 10:53 AM CD T Body Mass Index 30.35 10/10/2017 10:53 AM CDT documented in this encounter Progress Notes * Khalif Ca MD - 10/10/2017 12:00 AM CDT Date: 10/10/2017 Patient Name: MARIZOL GRIMALDO Date of : 1945 Date of Visit: 10/10/2017 HISTORY OF PRESENT ILLNESS: 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 He has been exercising regular, perhaps getting a little bit too much sleep. We want 7 to 8 hours sleep at night. Studies over a million people showed more than 8-1/2 hours is dangerous, and a recent study just came out a couple months ago showing excessive sleep is associated with actually dementia, and the other santos dies have shown there is more heart attacks, strokes and . He is very particular on wanting ned in good shape. No chest pain, no shortness of breath. He is still exercising. He will cut back his sleep a little bit, but he is doing very well. His hypertension is well controlled on medical management, including amlodipine 10 and his stress tests have been normal. He does have aortic valve disease which we have been following him for and we are going to check another echocardiogram of the valve, but he has no symptoms at all related to it. He denies any change in his exercise threshold. No shortness of breath. No chest discomfort, heaviness, tightness, and no syncopal spells, but we will have to check the severity of the valve. He had the study done 10/07/2010. He shows as moderate aortic stenosis with an aortic valve area of 0.97, severity unchanged from 217 in March. Heart function is normal. Wall thickness is normal. That is very good. He had mild mitral regurgitation. His ejection fraction is high- normal at 66% with normal global function. The mean gradient is 29, the peak gradient was 70. PHYSICAL EXAMINATION: Blood pressure is 135/81, heart rate is 77 and his weight is 208 lbs. HEAD, EARS, EYES, NOSE AND THROAT: Normal. Cognitive function is excellent. He is oriented x3. He has ear creases. He wears glasses. Good dentition. He has good color. NECK: He has no carotid bruits except there is a bruit on the left which is probably a radiation from the aortic valve, but I do not hear a clear continuation of the murmur from the valve up to the carotids so, I am going to get a Doppler to make sure that is a radiation from the valve. He had his r outine echo done this morning which will have to call him on the results. CARDIOVASCULAR: Heart sounds are regular. No clicks or gallops. He has a grade 3/4/6 murmur of aortic stenosis along the left sternal border, which does not sound significantly changed from previous studies. LUNGS: Clear. ABDOMEN: Soft, nontender. Liver is not enlarged. EXTREMITIES: He has no significant peripheral edema at all and he has minimal arthritic changes. Noecchymoses. PLAN: Follow up for aortic stenosis in six months. He will call us if he has any chest pain, shortness ofbreath, syncopal spell or dizziness as soon as possible. ELECTRONICALLY SIGNED - 10/14/2017 09:34 AM Khalif Ca M.D., F.A.C.C. emergency room clerk AW/bp cc: MARTIN LÓPEZ MD / / documented in this encounter Plan of Treatment Not on file documented as of this encounter Visit Diagnoses Diagnosis Encounter for screening- Primary documented in this encounter Care Teams Gallery Intern Relationship Specialty Start Date End Date Martin López MD [address] [address] PCP - General 06/27/12 documented as of this encounter
--- OUTSIDE RECORDS SUMMARY | 2024-04-20 00:21 | XMS_ITS | Encounter Summary ---
Author Organization [facility] Facility Care Team Providers Care Cone Worker Name Role Phone Martin López MD Primary Care Provider Encounter Details Date Type Department Care Team (Latest Contact Info) Description 06/13/2015 10:28 AM NUTRITION ASSOCIATE - 06/13/2015 11:59 PM NUTRITION ASSOCIATE Hospital Encounter [facility] Hair Singh MD [address] [facility] [address] [place] [address] Chronic sinusitis; Headache Social History Tobacco Use Types Packs/Day Years Used Date Smoking Tobacco: Never Assessed Sex and Gender Information Value Date Recorded Sex Assigned at Not on file Legal Sex Male 9:13 PM NUTRITION ASSOCIATE Gender Identity Male 07/25/2023 3:40 PM CDT [...] Name Priority Date/Time Associated Diagnosis Comments CT SINUS WO CONTRAST Routine 06/13/2015 11:[address] SINUS WO CONTRAST Routine 06/13/2015 10:55 AM NUTRITION ASSOCIATE documented in this encounter Results * CT Sinus WO Contrast (06/13/2015 11:02 AM NUTRITION ASSOCIATE) Anatomical Region Laterality Modality Head and Neck N/A Computed Tomogra phy 06/13/2015 11:0 2 AM NUTRITION ASSOCIATE Narrative 06/13/2015 1:52 PM NUTRITION ASSOCIATE KAREY JEFFRIES M.D. GIANLUCA RIVERA M.D. FINAL REPORT The radiology attending physician has personally reviewed this study, and has reviewed and/or edited this written report and agrees with it. ACC# ??Date Time ??Exam [id number] Jun 13, 2015 11:02:[id number] Maxillofacial w/o cont EXAMINATION: ?? CT of the paranasal sinuses without contrast HISTORY: Sinus fullness and drainage. TECHNIQUE: CT of the paranasal sinuses was performed using sinus protocol without contrast. COMPARISON: None available. FINDINGS: Review of the topogram demonstrates no abnormalities. The frontal sinuses are normal. There is mild ethmoid sinus mucosal thickening. There are two small mucus retention cysts in the right maxillary sinus. The left mastoid sinus is normal. There is a small mucus retention cyst in the posterior sphenoid sinus. The ostiomeatal units are open bilaterally. The nasal septum is at midline. No areas of bony erosion are identified. The orbits are normal. Limited view of the frontal lobes is normal. IMPRESSION: ?? Mild sinus disease as detailed above. Requested By: Dictated By: ?? GIANLUCA RIVERA M.D. ??on Jun 13 2015 11:59A This document has been electronically signed by: KAREY JEFFRIES M.D. on Jun 13 2015 ??1:51P [id number] Procedure Note Provider, MD Yasmeen - 09/01/2016 KAREY JEFFRIES M.D. GIANLUCA RIVERA M.D. FINAL REPORT The radiology attending physician has personally reviewed this study, and has reviewed and/or edited this written report and agrees with it. ACC# Date Time Exam [id number] Jun 13, 2015 11:02:[id number] Maxillofacial w/o cont EXAMINATION: CT of the paranasal sinuses without contrast HISTORY: Sinus fullness and drainage. TECHNIQUE: CT of the paranasal sinuses was performed using sinus protocol without contrast. COMPARISON: None available. FINDINGS: Review of the topogram demonstrates no abnormalities. The frontal sinuses are normal. There is mild ethmoid sinus mucosal thickening. There are two small mucus retention cysts in the right maxillary sinus. The left mastoid sinus is normal. There is a small mucus retention cyst in the posterior sphenoid sinus. The ostiomeatal units are open bilaterally. The nasal septum is at midline. No areas of bony erosion are identified. The orbits are normal. Limited view of the frontal lobes is normal. IMPRESSION: Mild sinus disease as detailed above. Requested By: Dictated By: GIANLUCA RIVERA M.D. on Jun 13 2015 11:59A This document has been electronically signed by: KAREY JEFFRIES M.D. on Jun 13 2015 1:51P [id number] Historical Provider MD AWAD CT PROCEDURES Final R esult * CT Sinus WO Contrast (06/13/2015 10:55 AM NUTRITION ASSOCIATE) Anatomical Region Laterality Modality Head and Neck N/A Computed Tomogra phy 06/13/2015 10:5 5 AM NUTRITION ASSOCIATE Historical Provider MD AWAD CT PROCEDURES Final R esult documented in this encounter Visit Diagnoses Diagnosis Chronic sinusitis Unspecified sinusitis (chronic) Headache documented in this encounter Care Teams Cone Worker Relationship Specialty Start Date End Date Martin López MD [address] [address] PCP - General 06/27/12 documented as of this encounter
--- OUTSIDE RECORDS SUMMARY | 2024-04-20 00:21 | XMS_ITS | Encounter Summary ---
Author Organization [facility] Address [address] [place] [address] Care Team Providers Care Flotation Tender Name Role Phone Martin López MD Primary Care Provider Encounter Details Date Type Department Care Team (Latest Contact Info) Description 04/04/2017 9:39 AM NURSING SERVICE ADMINISTRATOR - 04/04/2017 11:59 PM NURSING SERVICE ADMINISTRATOR Hospital Encounter [facility] OP INTERIM [phone] Khalif Ca MD [address] [place] [address] Discharge Disposition: Discharge to home or self care Social History Tobacco Use Types Packs/Day Years Used Date Smoking Tobacco: Never Sex and Gender Information Value Date Recorded Sex Assigned at Not on file Legal Sex Male 9:13 PM NURSING SERVICE ADMINISTRATOR Gender Identity Male 07/25/2023 3:40 PM [...] ECHO (TTE) COMPLETE W DOPPLER/CF WO CONTRAST 04/04/2017 documented in this encounter Results * TRANSTHORACIC ECHO (TTE) COMPLETE W DOPPLER/CF WO CONTRAST (04/04/2017) Anatomical Region Laterality Modality Ultrasound us Provider Scanning CV ECHO PROCEDURES Final Resul t documented in this encounter Visit Diagnoses Not on filedocumented in this encounter Care Teams Flotation Tender Relationship Specialty Start Date End Date Martin López MD [address] [place] [address] PCP - General 06/27/12 documented as of this encounter
== END 2024-04-13 09:05 | disposition home or self-care (01) ==
LOC: ANHLAB 09:05
PROVIDERS: PCP Family Medicine; Visit Provider Family Medicine
DX: M10.9 Gout, unspecified (principal)
CPT/HCPCS: 36415; 84550

== ENCOUNTER 2024-06-10 07:29 | Outpatient (CLI) | payer BC, SELFPAY ==
--- NOTE | ~2024-06-10 | US_ITS ---
EXAMINATION: US abdomen limited DATE: 06/10/2024 08:24 INDICATION: Bloating, loose stools and gas TECHNIQUE: Multiple grayscale and Doppler ultrasound images of the abdomen were obtained. COMPARISON: None FINDINGS: Normal caliber abdominal aorta measuring up to 2.2 cm in maximal diameter. Visualized proximal to mid inferior vena cava is normal. Liver has normal echogenicity and contour, with a smooth surface. No l iver lesion identified. No intrahepatic biliary duct dilation suspected. Portal venous flow was seen in the hepatopetal, normal direction and has normal Doppler waveform. The gallbladder is normal in ap pearance. There is no cholelithiasis. The common bile duct measures 4-5 mm, which is normal. Visuali zed portion of the right kidney demonstrate normal contour and echogenicity with no hydronephrosis. IMPRESSION: 1. Normal right upper quadrant ultrasound. Reviewed, dictated and finalized at location A. OR QUALITY ASSURANCE ENGINEER
== END 2024-06-10 07:30 | disposition home or self-care (01) ==
PROVIDERS: PCP Family Medicine; Visit Provider Family Medicine
DX: R19.5 Other fecal abnormalities (principal); R14.0 Abdominal distension (gaseous)
CPT/HCPCS: 76705